=== PATIENT | male | born 1950 | race Caucasian/White ===

== ENCOUNTER 2023-02-26 02:13 | Outpatient (REF) | payer MEDICARE, SELFPAY ==
[2023-02-26 08:03] LABS: INR 1.05; Prothrombin Time 11.1 sec (9.0-11.6)
== END 2023-02-26 02:14 | disposition home or self-care (01) ==
LOC: LAB 02:13
PROVIDERS: PCP Family Medicine; Visit Provider Family Medicine
DX: I48.0 Paroxysmal atrial fibrillation (principal)
CPT/HCPCS: 36415; 85610

== ENCOUNTER 2023-03-03 07:31 | Outpatient (REF) | payer MEDICARE, SELFPAY ==
[2023-03-01 08:13] LABS: INR 1.67; Prothrombin Time 17.2 sec (9.0-11.6)
--- OUTSIDE RECORDS SUMMARY | 2023-03-03 07:36 | XMS_ITS | CCD ---
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 Name Role Phone No, Physician Primary Care Provider UnavailShahriar Frederick II Unavailable [phone] Shahriar Dhillon II Unavailable Karina Melgar Unavailable Lynn Gurrola Unavailable MD Karina Melgar Primary Care Provider [phone] DO Yo Blood Emergency Provider LISSETH Link Attending Provider [phone] Sejal Link Unavailable Karina Melgar Unavailable Unavailable Unavailable Unavailable Unavailable Karina Melgar Primary Care Unavailable Sejal Link Attending Unavailable Sejal Link Admitting Unavailable Shahriar Dhillon II Attending UnavailShahriar Frederick II Admitting UnavailKarina Butler Primary Care Unavailable Shahriar Dhillon II Admitting UnavailShahriar Frederick II Attending UnavailKarina Butler Primary Care Unavailable Shahriar Dhillon II Admitting UnavailShahriar Frederick II Attending UnavailKarina Butler Primary Care Unavailable Christopher Porter Referring Unavail able Christopher Porter Attending Unavail able Christopher Porter Admitting Unavail able Karina Melgar Primary Care Unavailable Yo Blood Admitting Unavailable Yo Blood Attending Unavailable Karina Melgar Primary Care Unavailable Kate Nielson Unavailable Shahriar Dhillon II Admitting UnavailShahriar Frederick II Attending UnavailKarina Butler Primary Care Unavailable Joselin Burgess Consulting Unavailable Love Gaviria Consulting Unavailable Christopher Porter Consulting Unavail able Wisam Torre Consulting Unavailable Phong Castro Consulting Unavailab Riya Garcia Consulting Unavailable Ester Salgado Consulting Unavailable Kam Ventura Consulting Unavailab Mulu Renae Consulting Unavailable Zenia Sandoval Consulting Unavailable Mariposa Clifton Consulting Unavailable Madison Steel Consulting Unavailable Cee Carrillo Consulting Unavailable Ruba Mishra Consulting Unavailable Nunu Ruiz Consulting Unavailable Poonam Borjas Consulting Unavailable Williams Winston Consulting Unavailable MiriJoe dsouza Consulting Unavailable Kym Estevez Consulting Unavailable Vic Block Consulting Unavailable Tru Morfin Consulting Unavailable Surya Thapa Consulting UnavailDillon Silver Consulting Unavailable Aury Khan Consulting Unavailable Eileen Barakat Consulting Unavailable Hilton Canada Consulting Unavailable Richmond Saucedo Consulting Unavailable Neil Walton Consulting Unavailable Mariana Andrade Consulting Unavailable Karina Orozco Consulting Unavailable Keyon Edwards Consulting Unavailable Sherita Mercer Consulting Unavailable Jose L Coles Consulting Unavailable Jory Campos Consulting Unavailable Ankush Rodrigez Consulting Unavailab Marcus Edmond Consulting Unavailable Marcos Bruno Consulting Unavailable EmilyHaylee martinez Consulting Unavailable Rufina, Kayode Consulting Unavailable Angel Senior Consulting Mariella vailable Trisha Keyes Consulting Unavailable Pawan Kaba Consulting Unavailab Kennedy Dhillon Consulting Unavailable Ryan Dolan Consulting Unavailable Obika, Fatoumata Consulting Unavailable Adri Mon Consulting Unavailable Shahriar Dhillon II Admitting UnavailShahriar Frederick II Attending UnavailKarina Butler Primary Care Unavailable Christopher Porter Referring Unavailable Christopher Porter Attending Unavailable Dr. Karina Melgar Primary Care Mariella vailable Christopher Porter Referring Unavailable Dr. Karina Melgar Primary Care Mariella vailable Christopher Porter Attending Unavailable Christopher Porter Referring Unavailable Dr. Karina Melgar Primary Care Mariella vailable Staciuinn, Christopher Attending Unavailable McGuinn, Christopher Referring Unavailable Ramón, Dr. Karina Abernathy Primary Care Mariella vailable Staciuinrick, Christopher Attending Unavailable Staciuinrick, Christopher Referring Unavailable Ramón, Dr. Karina Abernathy Primary Care Mariella vailable McGuinn, Christopher Attending Unavailable McGuinn, Christopher Attending Unavailable Nikolay, Ms. Sejal Leung Referring Unavailable Ramón, Dr. Karina Abernathy Primary Care Mariella vailalissy Melgar, Dr. Karina Abernathy Primary Care Mariella vailable German, Christopher Attending Unavailable Ramón, Dr. Karina Abernathy Primary Care Mariella vailable German, Christopher Attending Unavailable Ramón, Dr. Karina Abernathy Primary Care Mariella vailable German, Christopher Referring Unavailable German, Christopher Attending Unavailable Ramón, Dr. Karina Abernathy Primary Care Mariella vailable KARINA MELGAR Primary Care Physician [phone] Mae Rodrigez Attending Unavailable Justmarcos, Mae Referring Unavailable JustiMae Admitting Unavailable McGuinn, Christopher P Admitting Unavailable McGuinn, Christopher P Attending Unavailable McGvickien, Christopher P Referring Unavailable Sukhwinder, Justice Attending Unavailable SUKHWINDER, JUSTICE Referring Unavailable RADHA SMALL Attending Unavailable REQUEST, IP OCCUPATIONAL THERAPY SERVICE Consult ing Unavailable LUKASZ ALICIAY Admitting Unavailable REQUEST, IP PHYSICAL THERAPY SERVICE Consulting Unavailable CONSULT, IP CARDIOLOGY Consulting Unavailab le PROVIDER, UNKNOWN Admitting Unavailable PROVIDER, UNKNOWN Attending Unavailable PROVIDER, UNKNOWN Admitting Unavailable SUKHWINDER, JUSTICE Referring Unavailable PROVIDER, UNKNOWN Attending Unavailable HILLARY, ISACC Admitting Unavailable PROVIDER, UNKNOWN Attending Unavailable SUKHWINDER, JUSTICE Referring Unavailable HILLARY, ISACC Admitting Unavailable PROVIDER, UNKNOWN Attending Unavailable SUKHWINDER, JUSTICE Referring Unavailable HILLARY, ISACC Admitting Unavailable SUKHWINDER, JUSTICE Referring Unavailable PROVIDER, UNKNOWN Attending Unavailable HILLARY, ISACC Admitting Unavailable PROVIDER, UNKNOWN Admitting Unavailable SUKHWINDER, JUSTICE Referring Unavailable PROVIDER, UNKNOWN Attending Unavailable PROVIDER, UNKNOWN Admitting Unavailable PROVIDER, UNKNOWN Attending Unavailable PROVIDER, UNKNOWN Admitting Unavailable PROVIDER, UNKNOWN Attending Unavailable PROVIDER, UNKNOWN Admitting Unavailable PROVIDER, UNKNOWN Attending Unavailable Unavailable Primary Care Provider Unavailabl e Unavailable Primary Care Provider Unavailabl e Allergies Allergy Classification Reported Allergen(s) Allergy Type Date of Onset Reaction(s) Facility (1 source) No Known Medication Allergies; Translations: [No Known Medication Allergies] Propensity to adverse reactions (disorder) [facility] Medications Current Medications Medication Drug Class(es) Dates Sig (Normalized) Sig (Original) acetaminophen 325 mg / HYDROcodone bitartrate 5 mg oral tablet (1 source) Opioid Agonist Start: 07-28-2020 [place] 325 mg-5 mg oral tablet 1 tab(s), Oral, q6hr for pain, 12 tab(s), Refill(s) 0 Start Date: 07/28/20 Status: Ordered azithromycin 250 mg oral tablet (1 source) Macrolide Antimicrobial take 1 tablet by mouth twice daily azithromycin (ZITHROMAX) 250 MG tablet Take 250 mg by mouth 2 (two) times a day. 0 Active benzonatate 200 mg oral capsule (3 sources) Non-narcotic Antitussive Start: 08-01-2022 benzonatate 200 mg oral capsule Refills(s) 0 Start Date: 08/01/22 Status: Ordered Start: 03-11-2022 take 200 mg by mouth three times daily Benzonatate Active 200 MG PO Three times daily 14 March 11, 2022 12:00am biotin 1 mg oral tablet (15 sources) Start: 03-11-2022 Biotin Active TABLET March 11, 2022 12:00am take 1 capsule by mouth once chandrakant ly Biotin 5000 MCG Oral Capsule TAKE 1 CAPSULE Daily Quantity: 0 Refills: 0 Ordered: 21-Mar-2022 DO Active take 1 capsule by mouth once chandrakant ly Biotin 5000 MCG 1 capsule Orally Once a day Active cefadroxil 500 mg oral capsule (3 sources) Cephalosporin Antibacterial Start: 06-14-2021 take 1 capsule by mouth every twelve hours Cefadroxil 500 MG 1 tablet Orally every 12 hrs for 7 days Med to Bed Upon Discharge DOS: 07/02/2021 May, Active cholecalciferol 0.025 mg oral tablet (13 sources) Vitamin D Start: 06-18-2021 take 1 tablet by mouth once daily Cholecalciferol (Vitamin D3) (Vitamin D3) 25 mcg (1,000 unit) Tablet Active 25 MCG PO Daily June 17, 2021 11:00pm take 1 tablet by mouth once sy y Vitamin D3 125 MCG (5000 UT) Oral Tablet Take 1 tablet daily Quantity: 0 Refills: 0 Ordered: 21-Mar-2022 DO Active take 1 capsule by mo ut every twenty-four hours Vitamin D3 25 MCG (1000 UT) 1 capsule Orally Once a day Active chondroitin sulfates 200 mg / glucosamine hydrochloride 250 mg oral tablet (2 sources) Start: 07-28-2017 take 1 tablet by mouth twice daily Glucosamine-Chondroitin (Osteo Bi-Flex) 250-200 mg Tablet Active 1 TAB PO Twice daily July 27, 2017 11:00pm ciprofloxacin 500 mg oral tablet (1 source) Quinolone Antimicrobial Start: 01-29-2021 take 1 tablet by mouth every twelve hours Cipro 500 MG 1 tablet Orally every 12 hrs for 30 days Jan, Active codeine phosphate 2 mg/ml / promethazine hydrochloride 1.25 mg/ml oral solution (1 source) Opioid Agonist, Phenothiazine take 5 mL by mouth every six hours promethazine-codeine (PHENERGAN with CODEINE) 6.25-10 mg/5 mL syrup Take 5 mL by mouth every 6 (six) hours. 0 Active CoQ-10 100 MG (1 source) CoQ-10 100 MG as directed Orally Active cyclobenzaprine hydrochloride 10 mg oral tablet (1 source) Muscle Relaxant Start: 02-25-2023 docusate sodium 50 mg / sennosides, nursing home 8.6 mg oral tablet (3 sources) Start: 06-14-2021 take 2 tablets by mouth every twenty-fou r hours Senokot S 8.6-50 MG 2 tablets Orally Once a day for 30 day(s) Med to Bed Upon Discharge DOS: 07/02/2021 May, Active Elderberry Sambiscus (2 sources) Start: 06-18-2021 take 1250 mg by mouth twice daily Elderberry Sambiscus Active 1250 MG PO Twice daily June 17, 2021 11:00pm Fish Oils (17 sources) take 1 capsule by mouth once daily Fish Oil 300 MG 1 capsule Orally Once a day Not-Taking take 1 capsule by mouth once chandrakant ly Fish Oil 300 MG 1 capsule Orally Once a day Active Fish,Flaxseed Oil-E.Prim-Bcurr (Fish, Flax Andborage Oil(Prim)) 400-400-200 mg Capsule (2 sources) Start: 06-18-2021 take 1 capsule by mouth twice daily Fish,Flaxseed Oil-E.Prim-Bcurr (Fish, Flax Andborage Oil(Prim)) 400-400-200 mg Capsule Active 1 CAP PO Twice daily June 17, 2021 11:00pm Glucosamine Chondroit MSM DS - (11 sources) Glucosamine Chondroit MSM DS - as directed Orally Active hydroCHLOROthiazide / Lisinopril (20 sources) Thiazide Diuretic, Angiotensin Converting Enzyme Inhibitor Start: 01-31-2019 take 1 tablet by mouth once daily hydrochlorothiazide- lisinopril 12.5 mg-10 mg Oral 1 tab(s), Oral, Daily, Refill(s) 0 Start Date: 01/31/19 Status: Ordered Start: 07-28-2017 take 1 tablet by cuong th once daily Lisinopril-hydroCHLOROthiazide 10-12.5 M G Oral Tablet take 1 tablet by mouth once daily Quantity: 90 Refills: 3 Ordered: 27-Feb-2022 DO Start : 27-Feb-2022 Active take 10-12.5 mg by mouth once lisinopril-hydrochlorothiazide (ZESTORET IC) 10-12.5 MG per tablet Take 1 Tablet by mouth daily. 0 Suspended Lisinopril-hydro CHLOROthiazide 10/12.5 TAKE 1 TABLET BY MOUTH ONCE A DAY Orally Once a day Active Lisinopril-hydro CHLOROthiazide 10/12.5 TAKE 1 TABLET BY MOUTH ONCE A DAY Orally Once a day for 30 days Active lidocaine 0.04 mg/mg medicated patch (3 sources) Antiarrhythmic, Amide Local Anesthetic Start: 02-26-2023 Start: 02-19-2023 apply 1 dose transde rmal route every twenty-four hours 1 Patch, Transdermal, EVERY 24 HOURS, First dose on Fri02/19/23 at 0900, Until Discontinued Start: 02-15-2023 End: 02-15-2023 200 mg (20 mL), Other, ONCE, 1 dose, On 02/15/23 at 2303 MDI spacer adult (1 source) Start: 01-31-2019 MDI spacer aleida lt 1 EA, Inhalation, As Directed, 1 EA, Refill(s) 0 Start Date: 01/31/19 Status: Ordered Multi For Him 50+ - (17 sources) Start: 07-31-2017 Multi For Him 50+ - Orally Jul, Active Multivitamin-Minerals -Lutein (Multivitamin 50 Plus) Tablet (2 sources) Start: 07-28-2017 Multivitamin-M iner als-Lutein (Multivitamin 50 Plus) Tablet Active 1 TAB PO Daily July 27, 2017 11:00pm Osteo Bi-Flex Regular Strength 250-200 MG (17 sources) take 1 tablet by mouth once daily Osteo Bi-Flex Regular Strength 250-200 MG 1 tablet with a meal Orally Once a day Active oxyCODONE hydrochloride 5 mg oral tablet (8 sources) Opioid Agonist Start: 02-19-2023 End: 03-02-2023 Start: 02-16-2023 5 mg, Oral, EV XIOMARA 4 HOURS PRN, Starting on 02/16/23 at 0108, Until Discontinued, Severe Pain (pain score 7,8,9,10) Start: 06-14-2021 take 5 mg by mouth e very four hours Oxycodone Active 5 MG PO Every 4 hours July 03, 2021 predniSONE 20 mg oral tablet (2 sources) Start: 03-11-2022 take 40 mg by mouth once daily Prednisone Active 40 MG PO Daily 10 March 11, 2022 12:00am Prostate Control - (17 sources) Prostate Control - Orally Active pyridoxine hydrochloride 25 mg oral tablet (2 sources) Start: 07-28-2017 Pyridoxine (Vitamin B6) (Vitamin B-6) 25 mg Tablet Active 100 MG PO Daily July 27, 2017 11:00pm sulfamethoxazole 800 mg / trimethoprim 160 mg oral tablet (1 source) Dihydrofolate Reductase Inhibitor Antibacterial, Sulfonamide Antimicrobial Start: 02-13-2021 take 1 tablet by mouth every twelve hours Sulfamethoxazole -Trimethoprim 800-160 MG 1 tablet Orally Twice a day for 21 days Jan, Active traMADol hydrochloride 50 mg oral tablet (8 sources) Opioid Agonist Start: 07-18-2021 take 1 tablet by mouth every six hours as needed for pain traMADol HCl 50 MG 1 tablet as needed for pain Orally every 6 hrs for 10 days Med to Bed Upon Discharge DOS: 07/02/2021 June, Active Start: 07-03-2021 End: 03-11-2022 take 50 mg by mouth every four hours Tramadol Discontinued 50 MG PO Q4H July 02, 2021 11:00pm March 11, 2022 5:18pm Start: 06-14-2021 take 1 tablet by cuong th every six hours as needed for pain traMADol HCl 50 MG 1 tablet as needed for pain Orally every 6 hrs for 10 days Med to Bed Upon Discharge DOS: 07/02/2021 May, Active Turmeric Curcumin 500 MG (5 sources) Turmeric Curcumi n 500 MG as directed Orally Active ubidecarenone 100 mg oral capsule (10 sources) CoQ-10 100 MG as directed Orally Active ubiquinol 100 mg oral capsule (2 sources) Start: 2 take 100 mg by mouth once daily Coq10 (Ubiquinol) Active 100 MG PO Daily June 17, 2021 11:00pm Ventolin HFA 90 mcg/inh inhalation aerosol with adapter (1 source) Start: 9 take 2 puff(s) by inhalation every six hours as needed for wheezing Ventolin HFA 90 mcg/inh inhalation aerosol with adapter = 2 puff(s), Inhalation, q6hr, PRN Wheezing/SOB Start Date: 01/31/19 Status: Ordered vitamin b12 1 mg oral tablet (20 sources) Vitamin B12 Start: 8 take 1 tablet by mouth once daily Cyanocobalamin (Vitamin B-12) (Vitamin B-12) 1,000 mcg Tablet Active 1000 MCG PO Daily July 27, 2017 11:00pm take 1 tablet by mouth once sy y Vitamin B-12 100 MCG Oral Tablet TAKE 1 TABLET DAILY DIRECTED. Quantity: 0 Refills: 0 Ordered: 21-Mar-2022 DO Active Vitamin B-12 Ora lly Once a day Active Vitamin D3 25 MCG (1000 UT) (10 sources) take 1 capsule by mouth once daily Vitamin D3 25 MCG (1000 UT) 1 capsule Orally Once a day Active warfarin sodium 2 mg oral tablet (20 sources) Vitamin K Antagonist Start: 03-02-2023 take 2 mg by mouth once 2 mg, Oral, EVERY FRIDAY, First dose on Fri03/02/23 at 0900, Until Discontinued Start: 02-25-2023 take 4 mg by mouth once daily 4 mg, Oral, DAILY EXCEPT FRIDAY, First dose on Fri02/25/23 at 1330, Until Discontinued Start: 03-21-2022 warfarin 2 mg Tab Refills(s) 0 Start Date: 08/01/22 Status: Ordered Warfarin Sodium 2 MG Oral Tablet Take [place] [facility] [place] Quantity: 0 Refills: 0 Ordered: 30-Apr-2022 DO Active Warfarin 2mg Act ally Zinc (12 sources) Start: 03-11-2022 Zinc Active MG PO March 11, 2022 12:00am Zinc 50 MG CAPS TAKE 1 CAPSULE Daily Quantity: 0 Refills: 0 Ordered: 21-Mar-2022 DO Active Completed/Discontinued Medications Medication Drug Class(es) Dates Sig (Normalized) Sig (Original) acetaminophen 500 mg oral tablet (11 sources) Start: 02-16-2023 take 1000 mg by mouth every eight hours 1,000 mg, Oral, EVERY 8 HOURS, First dose on Fri02/16/23 at 0144, Until Discontinued Start: 06-18-2021 End: 07-03-2021 take 2 tablets by mouth every six hours Acetaminophen (Acetaminophen Extra Strength) 500 mg Tablet Discontinued 1000 MG PO Q6H June 17, 2021 11:00pm July 03, 2021 10:52am Start: 06-18-2021 End: 03-11-2022 take 650 mg by mouth every twelve hours Acetaminophen Discontinued 650 MG PO Q12H June 17, 2021 11:00pm March 11, 2022 5:17pm Start: 06-14-2021 take 2 tablets by mo [facility] every eight hours for pain Acetaminophen 500 MG 2 tablets for pain Orally every 8 hrs for 30 days Med to Bed Upon Discharge DOS: 07/02/2021 May, Active acetaminophen 325 mg / oxyCODONE hydrochloride 5 mg oral tablet (2 sources) Opioid Agonist Start: 08-16-2017 End: 08-09-2019 take 1 tablet by mouth every three hours Oxycodone-Acetaminophen Discontinued 1 TAB PO Q3H 0 August 15, 2017 11:00pm August 09, 2019 10:47pm albuterol 0.83 mg/ml inhalation solution (6 sources) beta2-Adrene rgic Agonist Start: 02-17-2023 2.5 mg, Nebulization, EVERY 4 HOURS RT, First dose on 02/17/23 at 1200, Until Discontinued Start: 02-16-2023 take 2 puff(s) by in halation every four hours as needed 2 Puff, Inhalation, EVERY 4 HOURS PRN, Starting on 02/16/23 at 1014, Until Discontinued, Shortness of Breath, Wheezing Start: 03-11-2022 Albuterol Sulf ate Active 2 INH INHALATION Q6H 8 March 11, 2022 12:00am administer with spacer take 2 puff(s) by mo [facility] every four hours as needed ALBUTEROL INHALATION Inhale 2 Puffs by mouth every 4 hours as needed for Other (sob). 0 Suspended albuterol 0.833 mg/ml / ipratropium bromide 0.167 mg/ml inhalation solution (1 source) Anticholinergic, beta2-Adrenergic Agonist Start: 02-17-2023 3 mL, Nebulization, EVERY 4 HOURS RT, First dose on Fri02/17/23 at 1200, Until Discontinued ascorbic acid 75 mg / ferrous fumarate 333 mg / folic acid 0.5 mg / liver stomach concentrate 240 mg / vitamin b12 0.015 mg oral capsule (2 sources) Vitamin B12, Vitamin C Start: 07-03-2021 End: 03-11-2022 take 1 capsule by mouth twice daily Iron [id number]-S-Drivm Acid (Ferocon) 110-0.5 mg Capsule Discontinued 1 CAP PO Twice daily 60 30 July 02, 2021 11:00pm March 11, 2022 5:18pm aspirin 81 mg chewable tablet (11 sources) Platelet Aggregation Inhibitor, Nonsteroidal Anti-inflammatory Drug Start: 02-25-2023 End: 02-25-2023 Start: 07-03-2021 End: 03-11-2022 take 81 mg by mouth twice daily Aspirin Discontinued 8 1 MG PO Twice daily July 02, 2021 11:00pm March 11, 2022 5:18pm Start: 06-14-2021 take 1 tablet by [facility] twice daily Aspirin 81 MG 1 tablet Orally BID for 35 days Med to Bed Upon Discharge DOS: 07/02/2021 May, Active Start: 08-16-2017 End: 08-09-2019 take 81 mg by mouth twice daily Aspirin Discontinued 8 1 MG PO Twice daily 0 August 15, 2017 11:00pm August 09, 2019 10:46pm bisacodyl 10 mg rectal suppository (1 source) Stimulant Laxative Start: 02-25-2023 take 10 mg rectal route once daily as needed 10 mg, Rectal, DAILY PRN, Starting on Fri02/25/23 at 1329, Until Discontinued, Constipation Borage extract (10 sources) Borage CAPS TAKE 1 CAPSULE Daily Quantity: 0 Refills: 0 Ordered: 21-Mar-2022 DO Active calcium chloride 0.0014 meq/ml / potassium chloride 0.004 meq/ml / sodium chloride 0.103 meq/ml / sodium lactate 0.028 meq/ml injectable solution (5 sources) Start: 02-17-2023 End: 02-17-2023 take 1 dose intravenously every hour 1,000 mL, at 999 mL/hr, Intravenous, FLUID BOLUS, 1 dose, On Fri02/17/23 at 0900 Start: 02-16-2023 End: 02-16-2023 take 1 dose intravenously every hour 1,000 mL, at 9,999 mL/hr, Intravenous, FLUID BOLUS, 1 dose, On 02/16/23 at 2200 Start: 02-16-2023 End: 02-16-2023 take 1 dose intravenously every hour 500 mL, at 999 mL/hr, Intravenous, FLUID BOLUS, 1 dose, On Fri02/16/23 at 1600 Start: 02-16-2023 End: 02-16-2023 take 1 dose intravenously every hour 500 mL, at 999 mL/hr, Intravenous, FLUID BOLUS, 1 dose, On Fri02/16/23 at 1500 Start: 02-16-2023 End: 02-19-2023 Intravenous, at 100 mL/hr, CONTINUOUS, Starting on Fri02/16/23 at 0144, Until Fri02/19/23 at 0809 100 ml calcium gluconate 20 mg/ml injection (1 source) Start: 02-15-2023 End: 02-16-2023 2,000 mg, Intravenous, ONCE, 1 dose, On 02/15/23 at 2256, at 100 mL/hr ceFAZolin 2000 mg injection (1 source) Cephalosporin Antibacterial Start: 02-19-2023 End: 02-20-2023 2,000 mg, Intravenous, EVERY 8 HOURS ANTIBIOTIC, 3 doses, First dose on Fri02/19/23 at 1030, Last dose on Fri02/20/23 at 0300 celecoxib 200 mg oral capsule (8 sources) Nonsteroidal Anti-inflammatory Drug Start: 06-14-2021 End: 03-11-2022 take 200 mg by mouth twice daily Celecoxib Discontinued 200 MG PO Twice daily July 02, 2021 11:00pm March 11, 2022 5:18pm cetirizine hydrochloride 10 mg oral tablet (2 sources) Histamine-1 Receptor Antagonist Start: 08-14-2017 End: 06-18-2021 take 1 tablet by mouth at bedtime Cetirizine (Zyrtec) 10 mg Tablet Discontinued 10 MG PO Bedtime August 13, 2017 11:00pm June 18, 2021 9:51am diclofenac sodium 75 mg delayed release oral tablet (12 sources) Nonsteroidal Anti-inflammatory Drug Start: 01-22-2018 take 1 tablet by mouth every twelve hours Diclofenac Sodium 75 MG 1 tablet with food or milk Orally Twice a day for 1 month Dec, Not-Taking docusate sodium 100 mg oral capsule (1 source) Start: 02-23-2023 take 100 mg by mouth twice daily 100 mg, Oral, 2 TIMES DAILY, First dose on 02/23/23 at 2100, Until Discontinued Drug or medicament (substance) (2 sources) Start: 02-17-2023 End: 02-17-2023 Other, ONCE, 1 dose, On 02/17/23 at 1300 Elderberry preparation (20 sources) Elderberry CAPS TAKE 1 CAPSULE Daily Quantity: 0 Refills: 0 Ordered: 21-Mar-2022 DO Active Elderberry Activ e 0.6 ml enoxaparin sodium 100 mg/ml prefilled syringe (2 sources) Low Molecular Weight Heparin Start: 02-22-2023 inject 50 mg by subcutaneous injection twice daily 50 mg, Subcutaneous, 2 TIMES DAILY, First dose (after last modification) on 02/22/23 at 2100, Until Discontinued Start: 02-16-2023 End: 02-22-2023 60 mg (rounded from 59.75 mg = 0.5 mg/kg 119.5 kg), Subcutaneous, 2 TIMES DAILY, First dose on 02/16/23 at 0930, Until Discontinued 4 ml furosemide 10 mg/ml injection (3 sources) Loop Diuretic Start: 02-19-2023 End: 02-20-2023 take 1 dose intravenously once 40 mg, Intravenous Push, ONCE, 1 dose, On Theresa 02/20/23 at 0900 Ginkgo Biloba (12 sources) Start: 07-28-2017 End: 06-18-2021 take 1 tablet by mouth twice daily Ginkgo Biloba Discontinued 1 TAB PO Twice daily July 27, 2017 11:00pm June 18, 2021 9:51am take 1 capsule by mouth once chandrakant ly Ginkgo Biloba 120 MG Oral Capsule TAKE 1 CAPSULE Daily Quantity: 0 Refills: 0 Ordered: 21-Mar-2022 DO Active hyaluronate (20 sources) Start: 10-22-2016 Euflexxa 29 Au g, 2016 2 mL Start: 10-15-2016 Euflexxa 22 Au g, 2016 2 mL Start: 10-08-2016 Euflexxa 15 Au g, 2016 2 mL hydroCHLOROthiazide 25 mg oral tablet (1 source) Thiazide Diuretic Start: 02-16-2023 End: 02-16-2023 take 12.5 mg by mouth once daily 12.5 mg, Oral, DAILY, First dose on 02/16/23 at 1100, Until Discontinued 1 ml HYDROmorphone hydrochloride 1 mg/ml cartridge (3 sources) Opioid Agonist Start: 02-16-2023 End: 02-16-2023 take 0.5 mg intravenously once 0.5 mg, Intravenous Push, ONCE, 1 dose, On 02/16/23 at 0119 Start: 02-16-2023 End: 02-17-2023 take 0.2 mg intravenously every four hours as needed for pain 0.2 mg, Intravenous Push, EVERY 4 HOURS PRN, Starting on 02/16/23 at 0109, Until 02/17/23 at 0806, Breakthrough Pain Start: 02-15-2023 End: 02-15-2023 ONCE PRN, Starting on 02/15/23 at 2127, Until Discontinued ibuprofen 200 mg oral tablet (2 sources) Nonsteroidal Anti-inflammatory Drug Start: 07-28-2017 End: 08-16-2017 take 800 mg by mouth twice daily Ibuprofen Discontinued 800 MG PO Twice daily July 27, 2017 11:00pm August 16, 2017 11:08am ipratropium bromide 0.2 mg/ml inhalation solution (1 source) Anticholinergic Start: 02-17-2023 0.5 mg, Nebulization, EVERY 4 HOURS RT, First dose on 02/17/23 at 1200, Until Discontinued lisinopril 10 mg oral tablet (1 source) Angiotensin Converting Enzyme Inhibitor Start: 02-16-2023 End: 02-16-2023 take 10 mg by mouth once daily 10 mg, Oral, DAILY, First dose on 02/16/23 at 1100, Until Discontinued loratadine 10 mg oral tablet (12 sources) Start: 07-31-2017 take 1 tablet by mouth every twenty-four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 #### 8 2948 #### NURSING GLUCOSE PROGRAM [address] [place], [address] Urea nitrogen [Mass/Vol] 23 mg/dL Normal 7-25 [facility] Comment on above: Result Comment: Note updated reference ranges. Performed By: #### 8 2948 #### NURSING GLUCOSE PROGRAM [address] [place], [address] Basic metabolic 2000 panelon 02-22-2023 Anion gap [Moles/Vol] 7 mmol/L Low 10 - 20 [facility] Calcium [Mass/Vol] 7.7 mg/dL Low 8.6 - 10. 3 mg/dL [facility] Chloride [Moles/Vol] 101 mmol/L 98 - 107 mmol/L [facility] CO2 [Moles/Vol] 33 mmol/L High 21 - 31 mmol/L [facility] Creatinine [Mass/Vol] 0.60 mg/dL Low 0.70 - 1.30 mg/dL [facility] GFR/1.73 sq M.predicted CKD-EPI (S/P/Bld) [Vol rate/Area] 101 - PINF [facility] Glucose [Mass/Vol] 105 mg/dL 74 - 109 mg/dL [facility] Interpretation and review of laboratory results Abnormal [facility] Potassium [Moles/Vol] 3.6 mmol/L 3.5 - 5.0 mmol/L [facility] Sodium [Moles/Vol] 137 mmol/L 136 - 145 mmol/L [facility] Urea nitrogen [Mass/Vol] 23 mg/dL 7 - 25 mg/dL [facility] CBC panel Auto (Bld)on 02-22 Erythrocyte distribution width (RBC) [Ratio] 15.4 % High 11.5 - 14.5 % [facility] Hematocrit (Bld) [Volume fraction] 23.9 % Low 41.0 - 53.0 % [facility] Hemoglobin (Bld) [Mass/Vol] 8.0 g/dL Low 13.9 - 16.3 g/dL [facility] Interpretation and review of laboratory results Abnormal [facility] MCH (RBC) [Entitic mass] 30.7 pg 26.0 - 34.0 pg [facility] MCHC (RBC) [Mass/Vol] 33.3 g/dL 32.0 - 35.9 g/dL [facility] MCV (RBC) [Entitic vol] 92 fL 80 - 100 fL [facility] Platelet mean volume (Bld) [Entitic vol] 8.7 fL 7.5 - 11.2 fL [facility] Platelets (Bld) [#/Vol] 227 10*3/uL 150 - 400 K/uL [facility] RBC (Bld) [#/Vol] 2.60 10*6/uL Low [facility] WBC (Bld) [#/Vol] 7.6 10*3/uL 4.5 - 11.5 K/uL M [facility] COMPLETE BLOOD COUNTon 02-22 Erythrocyte distribution width (RBC) [Ratio] 15.4 % High 11.5-14.5 The [facility] Comment on above: Performed By: #### T S #### S PATHOLOGY LABORATORY [address] [place] [address], Hematocrit (Bld) [Volume fraction] 23.9 % Low 41.0-53.0 The [facility] Comment on above: Performed By: #### T S #### S PATHOLOGY LABORATORY [address] [place] [address], Hemoglobin (Bld) [Mass/Vol] 8.0 g/dL Low 13.9-16.3 The [facility] Comment on above: Performed By: #### T S #### S PATHOLOGY LABORATORY [address] [place] [address], MCH (RBC) [Entitic mass] 30.7 pg Normal 26.0-34.0 [facility] Comment on above: Performed By: #### T S #### S PATHOLOGY LABORATORY [address] [place] [address], MCHC (RBC) [Mass/Vol] 33.3 g/dL Normal 32.0-35.9 [facility] Comment on above: Performed By: #### T S #### S PATHOLOGY LABORATORY [address] [place], [place], MCV (RBC) [Entitic vol] 92 fL Normal 80-100 [facility] Comment on above: Performed By: #### T S #### S PATHOLOGY LABORATORY [address] [place], [place], Platelet mean volume (Bld) [Entitic vol] 8.7 fL Normal 7.5-11.2 [facility] Comment on above: Performed By: #### T S #### S PATHOLOGY LABORATORY [address] [place], [place], Platelets (Bld) [#/Vol] 227 10*3/uL Normal 150-400 [email or web address] Comment on above: Performed By: #### T S #### S PATHOLOGY LABORATORY [address] [place], [place], RBC (Bld) [#/Vol] 2.60 10*6/uL Low 4.50-5.90 [facility] Comment on above: Performed By: #### T S #### S PATHOLOGY LABORATORY [address] [place], [place], WBC (Bld) [#/Vol] 7.6 10*3/uL Normal 4.5-11.5 [email or web address] Comment on above: Performed By: #### T S #### S PATHOLOGY LABORATORY [address] [place], [place], Care Plan Noteon 02-22-2023 Tile Class[employer] Authentication Interface Message Text Problem: Routine Care: Goal: Patient care will be managed and maintained throughout hospital stay per unit specific routine care procedure Outcome: Progressing Pt rounded on per hourly protocol. Problem: Impaired Skin Integrity: Goal: Skin integrity will improve and/or be maintained Outcome: Progressing Problem: Impaired Mobility: Goal: Ability to tolerate increased activity will improve and be maintained Outcome: Progressing Problem: Activity Intolerance: Goal: Demonstrate progressive return to baseline activity level Outcome: Progressing Problem: VTE Prophylaxis: Goal: Will be free of DVT Outcome: Progressing Problem: Fluid and Electrolyte Imbalance: Goal: Adequate fluid and electrolyte balance will be achieved and maintained Outcome: Progressing Problem: Alteration in Tissue Perfusion: Peripheral: Goal: Promote adequate perfusion and limit complications for a person experiencing or is at risk for inadequate tissue perfusion in peripheral circulation Outcome: Progressing Problem: Alteration in Respiratory Status: Goal: Achieve Optimal Respiratory Status with Minimal Ventilatory/Oxygen Support Outcome: Progressing Problem: Acute Pain: Goal: Ability to identify pain intensity on a pain scale and rate it consistently will be achieved and maintained Outcome: Progressing Meds administered as ordered. Problem: Safety: Goal: Patient will remain free of falls during hospital stay Outcome: Progressing Goal: Free from injury during hospitalization Outcome: Progressing Problem: Discharge Planning: Goal: Discharge needs of the adult patient will be met Outcome: Progressing Problem: Routine Care: Goal: Patient care will be managed and maintained throughout hospital stay per unit specific routine care procedure Outcome: Progressing Problem: Acute Pain: Goal: Ability to identify pain intensity on a pain scale and rate it consistently will be achieved and maintained Outcome: Progressing Problem: Safety: Goal: Patient will remain free of falls during hospital stay Outcome: Progressing Problem: Discharge Planning: Goal: Discharge needs of the adult patient will be met Outcome: Progressing Problem: Restraint: Goal: Remain safe while in restraints and once discontinued Outcome: Progressing Normal [email or web address] MAGNESIUMon 02-22-2023 Magnesium [Mass/Vol] 2.0 mg/dL Normal 1.6-2.8 [facility] Comment on above: Performed By: #### 8 2948 #### NURSING GLUCOSE PROGRAM [address] [place] [address], [address] Magnesium [Mass/Vol] 2.0 mg/dL 1.6 - 2.8 mg/dL [facility] No Panel Informationon 02-22 Interpretation and review of laboratory results Normal [facility] PHOSPHORUSon 02-22-2023 Phosphate [Mass/Vol] 2.8 mg/dL Normal 2.3-4.2 [facility] Comment on above: Performed By: #### 8 7511 #### NURSING GLUCOSE PROGRAM [address] [place], [address] Phosphate [Mass/Vol] 2.8 mg/dL 2.3 - 4.2 mg/dL [facility] BASIC METABOLIC PANELon 01-25 Anion gap [Moles/Vol] 9 mmol/L Low 10-20 [facility] Comment on above: Performed By: #### 8 2948 #### NURSING GLUCOSE PROGRAM [address] [place], [address] Calcium [Mass/Vol] 7.5 mg/dL Low 8.6-10.3 [facility] Comment on above: Result Comment: Note updated reference ranges. Performed By: #### 8 2948 #### NURSING GLUCOSE PROGRAM [address] [place], [address] Chloride [Moles/Vol] 100 mmol/L Normal 98-107 [facility] Comment on above: Result Comment: Note updated reference ranges. Performed By: #### 8 2948 #### NURSING GLUCOSE PROGRAM [address] [place], [address] CO2 [Moles/Vol] 33 mmol/L High 21-31 [facility] Comment on above: Result Comment: Note updated reference ranges. Performed By: #### 8 2948 #### NURSING GLUCOSE PROGRAM [address] [place], [address] Creatinine [Mass/Vol] 0.65 mg/dL Low 0.70-1.30 [facility] Comment on above: Result Comment: Note updated reference ranges. Performed By: #### 8 2948 #### NURSING GLUCOSE PROGRAM [address] [place], [address] ESTIMATED GFR (CKD-EPI) 99 mL/min/1.73sqm Normal >=60 [facility] Comment on above: Result Comment: 2020 CKD EPI Equation using Creatinine without Race Comment: Estimated glomerular filtration rate (eGFR) is calculated without a race coefficient. Values should be interpreted in the context of the patient's full clinical presentation. Reference: 1. Clayton C, Lan M, Alissa RAMEY, et al.. A Unifying Approach for GFR Estimation: Recommendations of the NKF-ASN Task Force on Reassessing the Inclusion of Race in Diagnosing Kidney Disease. [place] Journal of Kidney Diseases 2021;79(2):268-88.e1. 2. N Engl J Med 1 Vol. 385 Issue 19 Pages 7721-9651 Performed By: #### 8 2948 #### NURSING GLUCOSE PROGRAM [address] [place], [address] Glucose [Mass/Vol] 104 mg/dL Normal 74-109 [facility] Comment on above: Performed By: #### 8 2948 #### NURSING GLUCOSE PROGRAM [address] [place], [address] Potassium [Moles/Vol] 3.5 mmol/L Normal 3.5-5.0 [facility] Comment on above: Result Comment: Note updated reference ranges. Note updated reference ranges. Performed By: #### 8 2948 #### NURSING GLUCOSE PROGRAM [address] [place], [address] Sodium [Moles/Vol] 138 mmol/L Normal 136-145 The [facility] Comment on above: Result Comment: Note updated reference ranges. Performed By: #### 8 2948 #### NURSING GLUCOSE PROGRAM [address] [place], [address] Urea nitrogen [Mass/Vol] 24 mg/dL Normal 7-25 The [facility] Comment on above: Result Comment: Note updated reference ranges. Performed By: #### 8 2948 #### NURSING GLUCOSE PROGRAM [address] [place], [address] BLOOD CULTUREon 02-21-2023 Bacteria identified Cx Nom (Bld) No Growth [facility] Interpretation and review of laboratory results Normal [facility] Basic metabolic 2000 panelon 02-21-2023 Anion gap [Moles/Vol] 9 mmol/L Low 10 - 20 [facility] Calcium [Mass/Vol] 7.5 mg/dL Low 8.6 - 10. 3 mg/dL [facility] Chloride [Moles/Vol] 100 mmol/L 98 - 107 mmol/L [facility] CO2 [Moles/Vol] 33 mmol/L High 21 - 31 mmol/L [facility] Creatinine [Mass/Vol] 0.65 mg/dL Low 0.70 - 1.30 mg/dL [facility] GFR/1.73 sq M.predicted CKD-EPI (S/P/Bld) [Vol rate/Area] 99 - PINF [facility] Glucose [Mass/Vol] 104 mg/dL 74 - 109 mg/dL [facility] Interpretation and review of laboratory results Abnormal [facility] Potassium [Moles/Vol] 3.5 mmol/L 3.5 - 5.0 mmol/L [facility] Sodium [Moles/Vol] 138 mmol/L 136 - 145 mmol/L [facility] Urea nitrogen [Mass/Vol] 24 mg/dL 7 - 25 mg/dL [facility] CBC panel Auto (Bld)on 02-21 Erythrocyte distribution width (RBC) [Ratio] 14.5 % 11.5 - 14.5 % [facility] Hematocrit (Bld) [Volume fraction] 21.8 % Low 41.0 - 53.0 % [facility] Hemoglobin (Bld) [Mass/Vol] 7.6 g/dL Low 13.9 - 16.3 g/dL [facility] Interpretation and review of laboratory results Abnormal [facility] MCH (RBC) [Entitic mass] 31.5 pg 26.0 - 34.0 pg [facility] MCHC (RBC) [Mass/Vol] 34.6 g/dL 32.0 - 35.9 g/dL [facility] MCV (RBC) [Entitic vol] 91 fL 80 - 100 fL [facility] Platelet mean volume (Bld) [Entitic vol] 8.3 fL 7.5 - 11.2 fL [facility] Platelets (Bld) [#/Vol] 199 10*3/uL 150 - 400 K/uL [facility] RBC (Bld) [#/Vol] 2.40 10*6/uL Low [facility] WBC (Bld) [#/Vol] 9.6 10*3/uL 4.5 - 11.5 K/uL [facility] COMPLETE BLOOD COUNTon 02-21 Erythrocyte distribution width (RBC) [Ratio] 14.5 % Normal 11.5-14.5 [facility] Comment on above: Performed By: #### T S #### S PATHOLOGY LABORATORY [address] [place] [address], Hematocrit (Bld) [Volume fraction] 21.8 % Low 41.0-53.0 [facility] Comment on above: Performed By: #### T S #### [facility] [address] [place] [address], Hemoglobin (Bld) [Mass/Vol] 7.6 g/dL Low 13.9-16.3 [facility] Comment on above: Performed By: #### T S #### [facility] [address] [place] [address], MCH (RBC) [Entitic mass] 31.5 pg Normal 26.0-34.0 [facility] Comment on above: Performed By: #### T S #### [facility] [address] [place], [place], MCHC (RBC) [Mass/Vol] 34.6 g/dL Normal 32.0-35.9 [facility] Comment on above: Performed By: #### T S #### S PATHOLOGY LABORATORY [address] [place], [place], MCV (RBC) [Entitic vol] 91 fL Normal 80-100 [facility] Comment on above: Performed By: #### T S #### S PATHOLOGY LABORATORY [address] [place], [place], Platelet mean volume (Bld) [Entitic vol] 8.3 fL Normal 7.5-11.2 [facility] Comment on above: Performed By: #### T S #### S PATHOLOGY LABORATORY [address] [place], [place], Platelets (Bld) [#/Vol] 199 10*3/uL Normal 150-400 [facility] Comment on above: Performed By: #### T S #### S PATHOLOGY LABORATORY [address] [place], [place], RBC (Bld) [#/Vol] 2.40 10*6/uL Low 4.50-5.90 [facility] Comment on above: Performed By: #### T S #### S PATHOLOGY LABORATORY [address] [place], [place], WBC (Bld) [#/Vol] 9.6 10*3/uL Normal 4.5-11.5 [facility] Comment on above: Performed By: #### T S #### S PATHOLOGY LABORATORY [address] [place], [place], Care Plan Noteon 02-21-2023 Tile Classifier Authentication Interface Message Text Problem: Routine Care: Goal: Patient care will be managed and maintained throughout hospital stay per unit specific routine care procedure Outcome: Progressing Purposeful rounding per floor routine Problem: Impaired Skin Integrity: Goal: Skin integrity will improve and/or be maintained Outcome: Progressing Problem: Impaired Mobility: Goal: Ability to tolerate increased activity will improve and be maintained Outcome: Progressing Problem: Activity Intolerance: Goal: Demonstrate progressive return to baseline activity level Outcome: Progressing Problem: VTE Prophylaxis: Goal: Will be free of DVT Outcome: Progressing Problem: Fluid and Electrolyte Imbalance: Goal: Adequate fluid and electrolyte balance will be achieved and maintained Outcome: Progressing Problem: Alteration in Tissue Perfusion: Peripheral: Goal: Promote adequate perfusion and limit complications for a person experiencing or is at risk for inadequate tissue perfusion in peripheral circulation Outcome: Progressing Problem: Alteration in Respiratory Status: Goal: Achieve Optimal Respiratory Status with Minimal Ventilatory/Oxygen Support Outcome: Progressing Problem: Acute Pain: Goal: Ability to identify pain intensity on a pain scale and rate it consistently will be achieved and maintained Outcome: Progressing Problem: Safety: Goal: Patient will remain free of falls during hospital stay Outcome: Progressing Bed in lowest position, call light within reach Goal: Free from injury during hospitalization Outcome: Progressing Problem: Discharge Planning: Goal: Discharge needs of the adult patient will be met Outcome: Progressing Problem: Routine Care: Goal: Patient care will be managed and maintained throughout hospital stay per unit specific routine care procedure Outcome: Progressing Problem: Acute Pain: Goal: Ability to identify pain intensity on a pain scale and rate it consistently will be achieved and maintained Outcome: Progressing Problem: Safety: Goal: Patient will remain free of falls during hospital stay Outcome: Progressing Problem: Discharge Planning: Goal: Discharge needs of the adult patient will be met Outcome: Progressing Problem: Restraint: Goal: Remain safe while in restraints and once discontinued Outcome: Progressing Normal [facility] GLUCOSE, FINGERSTICK-IN OFFI CEon 02-21-2023 Glucose [Mass/Vol] 144 mg/dL High 80-116 [facility] Comment on above: Performed By: #### 8 2948 #### NURSING GLUCOSE PROGRAM [address] [place], [address] Glucose [Mass/Vol] 144 mg/dL High 80 - 116 mg/dL [facility] Interpretation and review of laboratory results Abnormal [facility] MAGNESIUMon 02-21-2023 Magnesium [Mass/Vol] 1.9 mg/dL Normal 1.6-2.8 [facility] Comment on above: Performed By: #### T S #### [facility] [address] [place], [address] Magnesium [Mass/Vol] 1.9 mg/dL 1.6 - 2.8 mg/dL [facility] No Panel Informationon 02-21 Interpretation and review of laboratory results Normal [facility] PHOSPHORUSon 02-21-2023 Phosphate [Mass/Vol] 2.3 mg/dL Normal 2.3-4.2 [facility] Comment on above: Performed By: #### T S #### [facility] [address] [place], [address] Phosphate [Mass/Vol] 2.3 mg/dL 2.3 - 4.2 mg/dL [facility] Procedureson 02-21-2023 Tile Classifier Authentication Interface Message Text Upper Extremities Venous Duplex [address] [place], [place] [address] Status:Open Demographics Patient name: JUAN Leung Gender: Male Date of : 1950 Age: 72 year(s) Procedure Information Procedure date: 02/21/2023 2:15 PM Procedure type: Vascular Proc. sub type: Veins, Upper Extremities Veins, LIMITED DUPLEX VEIN SCAN UE Accession no: [id number] Patient status: Routine Study location: Portable Technical quality: Poor visualization Limitation reason: Poor acoustical window Procedure Staff Referring Physician: SUKHWINDER BRIAN Cloth Cutting Machine Operator: Alex Castañeda RVT Interpreting physician: NATAN Ceja MD Indications Pain, edema, discoloration. Risk Factors Additional comments: No significant history Page 1/2 JUAN Leung 1950 [id number] 02/21/2023 2:15 PM Upper Extremities Venous Duplex UE Veins Findings Left Location Visualized Compression Thrombosis Signal IJV Yes Yes None Phasic SCV Yes Yes None Phasic Axillary Yes Yes None Phasic Mid Axillary Yes Yes None Dist Yes Yes None Axillary Prox Yes Yes None Brachial Mid Yes Yes None Brachial Dist Yes Yes None Phasic Brachial Right Left Location Visualized Compression Thrombosis Visualized Compression Thrombosis Basilic at Prox UA Yes Yes None Basilic at Mid UA Yes Yes None Basilic at Dist UA Yes Yes None Basilic at AF Yes Yes None Cephalic at Prox UA No Physician Impressions Left: LEFT: There is no evidence of deep vein thrombosis in the left upper extremity and internal jugular vein. Physician Conclusions Summary: Simultaneous real time imaging of venous blood flow using both pulsed and color Doppler, as well as B-mode evaluation of the venous system with compression techniques, was used to evaluate the deep veins of the left upper extremity and internal jugular vein. The study demonstrates the following finding LEFT: There is no evidence of deep vein thrombosis in the left upper extremity and internal jugular vein. Page 2/2 JUAN Leung 1950 [id number] 02/21/2023 2:15 PM Invalid Interpretation Code [email or web address] Progress Noteson 02-21-2023 Tile Classifier Authentication Interface Message Text Preliminary Vascular Lab Report Duplex Left Upper Extremity Vein Scan No evidence deep vein thrombus left upper extremity, official to follow report to follow. Masoud Castañeda RVT Normal [facility] [employer] T[employer] Authentication Interface Message Text Pt is rec for SNF Pt was denied from [facility] due to no available bed. Ruben will like updates Friday before deciding to clinically accept. Pt is still pending med readiness Pt will not need precert SW will continue to follow Aj Marie [facility] Normal [facility] [employer] Authentication Interface Message Text At 19:40 patient called nursing staff stating he, didn't feel right, felt cloudy, felt weird. Patient confirmed feeling foggy but declined head ache, nausea, chest pain, SOB, or numbness/tingling. Upon assessment patient A AND Ox3, follows commands, FARMER, PERRLA. Vitals obtained, were unremarkable. EKG obtained, demonstrated afib. CBC/BMP obtained as well as urinalysis. MD Barrientos notified of patient's status. Upon re-assessment patient states they feel fine, and no-longer feel the way they did earlier. MD Barrientos notified of return to baseline. Will continue to monitor. Normal [email or web address] URINALYSIS WITH REFLEX CULTU RE PERFORMABLEon 02-21-2023 Glucose Ql (U) Negative Normal Negative [email or web address] Comment on above: Order Comment: A neg ative leukocyte esterase AND negative nitrite test or absence of pyuria (urine WBC count <= 5-10) make a UTI (urinary tract infection) very unlikely in a non-neutropenic adult (<=5% likelihood in many studies). A positive leukocyte esterase, nitrite and/or pyuria is a nonspecific result. This can be seen in conditions other than a UTI e.g. asymptomatic bacteriuria, gynecologic infections, sexually transmitted infections, and noninfectious conditions (positive predictive value for UTI around 50%) Performed By: #### M JUDITH Harper8, PHOS #### [facility] [address] [place] [address], Protein (U) [Mass/Vol] 30 mg/dL Abnormal Negative [facility] Comment on above: Order Comment: A neg ative leukocyte esterase AND negative nitrite test or absence of pyuria (urine WBC count <= 5-10) make a UTI (urinary tract infection) very unlikely in a non-neutropenic adult (<=5% likelihood in many studies). A positive leukocyte esterase, nitrite and/or pyuria is a nonspecific result. This can be seen in conditions other than a UTI e.g. asymptomatic bacteriuria, gynecologic infections, sexually transmitted infections, and noninfectious conditions (positive predictive value for UTI around 50%) Performed By: #### Jennifer Harper CH8, PHOS #### [facility] [address] [place] [address], U APPEAR Clear Normal Clear The [facility] Comment on above: Order Comment: A neg ative leukocyte esterase AND negative nitrite test or absence of pyuria (urine WBC count <= 5-10) make a UTI (urinary tract infection) very unlikely in a non-neutropenic adult (<=5% likelihood in many studies). A positive leukocyte esterase, nitrite and/or pyuria is a nonspecific result. This can be seen in conditions other than a UTI e.g. asymptomatic bacteriuria, gynecologic infections, sexually transmitted infections, and noninfectious conditions (positive predictive value for UTI around 50%) Performed By: #### M Meredith CH8, PHOS #### [facility] [address] [place] [address], U BILI Negative Normal Negative [facility] Comment on above: Order Comment: A neg ative leukocyte esterase AND negative nitrite test or absence of pyuria (urine WBC count <= 5-10) make a UTI (urinary tract infection) very unlikely in a non-neutropenic adult (<=5% likelihood in many studies). A positive leukocyte esterase, nitrite and/or pyuria is a nonspecific result. This can be seen in conditions other than a UTI e.g. asymptomatic bacteriuria, gynecologic infections, sexually transmitted infections, and noninfectious conditions (positive predictive value for UTI around 50%) Performed By: #### M Meredith CH8, PHOS #### S PATHOLOG[facility] LABORATORY [address] [place] [address], U BLOOD Negative Normal Negative [facility] Comment on above: Order Comment: A neg ative leukocyte esterase AND negative nitrite test or absence of pyuria (urine WBC count <= 5-10) make a UTI (urinary tract infection) very unlikely in a non-neutropenic adult (<=5% likelihood in many studies). A positive leukocyte esterase, nitrite and/or pyuria is a nonspecific result. This can be seen in conditions other than a UTI e.g. asymptomatic bacteriuria, gynecologic infections, sexually transmitted infections, and noninfectious conditions (positive predictive value for UTI around 50%) Performed By: #### M Meredith CH8, PHOS #### [facility] [address] [place] [address], U COLOR Yellow Normal Colorless [facility] Comment on above: Order Comment: A neg ative leukocyte esterase AND negative nitrite test or absence of pyuria (urine WBC count <= 5-10) make a UTI (urinary tract infection) very unlikely in a non-neutropenic adult (<=5% likelihood in many studies). A positive leukocyte esterase, nitrite and/or pyuria is a nonspecific result. This can be seen in conditions other than a UTI e.g. asymptomatic bacteriuria, gynecologic infections, sexually transmitted infections, and noninfectious conditions (positive predictive value for UTI around 50%) Performed By: #### M Meredith, CH8, PHOS #### S [facility] [address], [place], U KETONE Negative Normal Negative [facility] Comment on above: Order Comment: A neg ative leukocyte esterase AND negative nitrite test or absence of pyuria (urine WBC count <= 5-10) make a UTI (urinary tract infection) very unlikely in a non-neutropenic adult (<=5% likelihood in many studies). A positive leukocyte esterase, nitrite and/or pyuria is a nonspecific result. This can be seen in conditions other than a UTI e.g. asymptomatic bacteriuria, gynecologic infections, sexually transmitted infections, and noninfectious conditions (positive predictive value for UTI around 50%) Performed By: #### M JUDITH Harper8, PHOS #### [facility] [address] [place] [address], U LEUK Negative Normal Negative [email or web address] Comment on above: Order Comment: A neg ative leukocyte esterase AND negative nitrite test or absence of pyuria (urine WBC count <= 5-10) make a UTI (urinary tract infection) very unlikely in a non-neutropenic adult (<=5% likelihood in many studies). A positive leukocyte esterase, nitrite and/or pyuria is a nonspecific result. This can be seen in conditions other than a UTI e.g. asymptomatic bacteriuria, gynecologic infections, sexually transmitted infections, and noninfectious conditions (positive predictive value for UTI around 50%) Performed By: #### M JUDITH Harper8, PHOS #### [facility] [address] [place] [address], U MUCOUS Present Normal [facility] Comment on above: Order Comment: A neg ative leukocyte esterase AND negative nitrite test or absence of pyuria (urine WBC count <= 5-10) make a UTI (urinary tract infection) very unlikely in a non-neutropenic adult (<=5% likelihood in many studies). A positive leukocyte esterase, nitrite and/or pyuria is a nonspecific result. This can be seen in conditions other than a UTI e.g. asymptomatic bacteriuria, gynecologic infections, sexually transmitted infections, and noninfectious conditions (positive predictive value for UTI around 50%) Performed By: #### M Meredith CH8, PHOS #### [facility] [address] [place] [address], U NITRITE Negative Normal Negative [email or web address] Comment on above: Order Comment: A neg ative leukocyte esterase AND negative nitrite test or absence of pyuria (urine WBC count <= 5-10) make a UTI (urinary tract infection) very unlikely in a non-neutropenic adult (<=5% likelihood in many studies). A positive leukocyte esterase, nitrite and/or pyuria is a nonspecific result. This can be seen in conditions other than a UTI e.g. asymptomatic bacteriuria, gynecologic infections, sexually transmitted infections, and noninfectious conditions (positive predictive value for UTI around 50%) Performed By: #### Jennifer Harper CH8, PHOS #### [facility] [address], [place], U PH 6.5 Normal 5.0-8.0 [email or web address] Comment on above: Order Comment: A neg ative leukocyte esterase AND negative nitrite test or absence of pyuria (urine WBC count <= 5-10) make a UTI (urinary tract infection) very unlikely in a non-neutropenic adult (<=5% likelihood in many studies). A positive leukocyte esterase, nitrite and/or pyuria is a nonspecific result. This can be seen in conditions other than a UTI e.g. asymptomatic bacteriuria, gynecologic infections, sexually transmitted infections, and noninfectious conditions (positive predictive value for UTI around 50%) Performed By: #### Jennifer Harper CH8, PHOS #### [facility] [address] [place], [place], U RBC 3-5 Abnormal 0-2 [email or web address] Comment on above: Order Comment: A neg ative leukocyte esterase AND negative nitrite test or absence of pyuria (urine WBC count <= 5-10) make a UTI (urinary tract infection) very unlikely in a non-neutropenic adult (<=5% likelihood in many studies). A positive leukocyte esterase, nitrite and/or pyuria is a nonspecific result. This can be seen in conditions other than a UTI e.g. asymptomatic bacteriuria, gynecologic infections, sexually transmitted infections, and noninfectious conditions (positive predictive value for UTI around 50%) Performed By: #### Jennifer Harper, CH8, PHOS #### S [facility] [address], [place], U SG 1.026 Normal <=1.030 [email or web address] Comment on above: Order Comment: A neg ative leukocyte esterase AND negative nitrite test or absence of pyuria (urine WBC count <= 5-10) make a UTI (urinary tract infection) very unlikely in a non-neutropenic adult (<=5% likelihood in many studies). A positive leukocyte esterase, nitrite and/or pyuria is a nonspecific result. This can be seen in conditions other than a UTI e.g. asymptomatic bacteriuria, gynecologic infections, sexually transmitted infections, and noninfectious conditions (positive predictive value for UTI around 50%) Performed By: #### ASIA Freitas, MIGUEL #### S [facility] [address] [place] [address], U UROBILI 2.0 mg/dL Abnormal Negative [facility] Comment on above: Order Comment: A neg ative leukocyte esterase AND negative nitrite test or absence of pyuria (urine WBC count <= 5-10) make a UTI (urinary tract infection) very unlikely in a non-neutropenic adult (<=5% likelihood in many studies). A positive leukocyte esterase, nitrite and/or pyuria is a nonspecific result. This can be seen in conditions other than a UTI e.g. asymptomatic bacteriuria, gynecologic infections, sexually transmitted infections, and noninfectious conditions (positive predictive value for UTI around 50%) Performed By: #### ASIA Freitas, MIGUEL #### [facility] [address], [place], U WBC 3-5 Abnormal 0-2 [facility] Comment on above: Order Comment: A neg ative leukocyte esterase AND negative nitrite test or absence of pyuria (urine WBC count <= 5-10) make a UTI (urinary tract infection) very unlikely in a non-neutropenic adult (<=5% likelihood in many studies). A positive leukocyte esterase, nitrite and/or pyuria is a nonspecific result. This can be seen in conditions other than a UTI e.g. asymptomatic bacteriuria, gynecologic infections, sexually transmitted infections, and noninfectious conditions (positive predictive value for UTI around 50%) Performed By: #### ASIA Freitas, PHOS #### [facility] [address], [place], BASIC METABOLIC PANELon 12-2 Anion gap [Moles/Vol] 12 mmol/L Normal 10-20 [facility] Comment on above: Performed By: #### C AKHIL #### [facility] [address], [place], Calcium [Mass/Vol] 7.5 mg/dL Low 8.6-10.3 [facility] Comment on above: Result Comment: Note updated reference ranges. Performed By: #### C BC #### [facility] [address], [place], Chloride [Moles/Vol] 99 mmol/L Normal 98-107 [facility] Comment on above: Result Comment: Note updated reference ranges. Performed By: #### C BC #### S [facility] [address], [place], CO2 [Moles/Vol] 29 mmol/L Normal 21-31 [facility] Comment on above: Result Comment: Note updated reference ranges. Performed By: #### C BC #### S [facility] [address], [place], Creatinine [Mass/Vol] 0.81 mg/dL Normal 0.70-1.30 [facility] Comment on above: Result Comment: Note updated reference ranges. Performed By: #### C BC #### S [facility] [address], [place], ESTIMATED GFR (CKD-EPI) 93 mL/min/1.73sqm Normal >=60 [facility] Comment on above: Result Comment: 2020 CKD EPI Equation using Creatinine without Race Comment: Estimated glomerular filtration rate (eGFR) is calculated without a race coefficient. Values should be interpreted in the context of the patient's full clinical presentation. Reference: 1. Clayton C, Lan M, Alissa RAMEY, et al.. A Unifying Approach for GFR Estimation: Recommendations of the NKF-ASN Task Force on Reassessing the Inclusion of Race in Diagnosing Kidney Disease. [place] Journal of Kidney Diseases 2021;79(2):268-88.e1. 2. N Engl J Med 1 Vol. 385 Issue 19 Pages 8955-4740 Performed By: #### C BC #### [facility] [address], [place], Glucose [Mass/Vol] 126 mg/dL High 74-109 The [facility] Comment on above: Performed By: #### C BC #### S [facility] [address], [place], Potassium [Moles/Vol] 3.3 mmol/L Low 3.5-5.0 [facility] Comment on above: Result Comment: Note updated reference ranges. Note updated reference ranges. Performed By: #### C BC #### [facility] [address] [place] [address], Sodium [Moles/Vol] 137 mmol/L Normal 136-145 [facility] Comment on above: Result Comment: Note updated reference ranges. Performed By: #### C BC #### [facility] [address] [place] [address], Urea nitrogen [Mass/Vol] 26 mg/dL High 7-25 [facility] Comment on above: Result Comment: Note updated reference ranges. Performed By: #### Vijaya BC #### [facility] [address] [place] [address], Anion gap [Moles/Vol] 10 mmol/L Normal 10-20 [facility] Comment on above: Performed By: #### ASIA Freitas, PHOS #### [facility] [address] [place] [address], Calcium [Mass/Vol] 7.9 mg/dL Low 8.6-10.3 [facility] Comment on above: Result Comment: Note updated reference ranges. Performed By: #### ASIA Freitas, PHOS #### [facility] [address] [place] [address], Chloride [Moles/Vol] 102 mmol/L Normal 98-107 [facility] Comment on above: Result Comment: Note updated reference ranges. Performed By: #### ASIA Freitas, PHOS #### [facility] [address] [place] [address], CO2 [Moles/Vol] 30 mmol/L Normal 21-31 [facility] Comment on above: Result Comment: Note updated reference ranges. Performed By: #### ASIA Freitas, PHOS #### [facility] [address] [place] [address], Creatinine [Mass/Vol] 0.79 mg/dL Normal 0.70-1.30 [facility] Comment on above: Result Comment: Note updated reference ranges. Performed By: #### ASIA Freitas, FAVIOLAS #### [facility] [address], [place], ESTIMATED GFR (CKD-EPI) 93 mL/min/1.73sqm Normal >=60 [facility] Comment on above: Result Comment: 2020 CKD EPI Equation using Creatinine without Race Comment: Estimated glomerular filtration rate (eGFR) is calculated without a race coefficient. Values should be interpreted in the context of the patient's full clinical presentation. Reference: 1. Clayton C, Lan M, Alissa RAMEY, et al.. A Unifying Approach for GFR Estimation: Recommendations of the NKF-ASN Task Force on Reassessing the Inclusion of Race in Diagnosing Kidney Disease. [place] Journal of Kidney Diseases 202;79(2):268-88.e1. 2. N Engl J Med 2020 Vol. 385 Issue 19 Pages [phone] Performed By: #### ASIA Freitas PHOS #### [facility] [address] [place] [address], Glucose [Mass/Vol] 139 mg/dL High 74-109 [facility] Comment on above: Performed By: #### ASIA Freitas, PHOS #### [facility] [address] [place] [address], Potassium [Moles/Vol] 3.7 mmol/L Normal 3.5-5.0 [email or web address] Comment on above: Result Comment: Note updated reference ranges. Note updated reference ranges. Performed By: #### ASIA Freitas, FAVIOLAS #### [facility] [address], [place], Sodium [Moles/Vol] 138 mmol/L Normal 136-145 [email or web address] Comment on above: Result Comment: Note updated reference ranges. Performed By: #### ASIA Freitas, PHOS #### [facility] [address], [place], Urea nitrogen [Mass/Vol] 23 mg/dL Normal 7-25 [facility] Comment on above: Result Comment: Note updated reference ranges. Performed By: #### ASIA Freitas, PHOS #### [facility] [address] [place], [id number] Basic metabolic 2000 panelon 02-20-2023 Anion gap [Moles/Vol] 12 mmol/L 10 - 20 [facility] Calcium [Mass/Vol] 7.5 mg/dL Low 8.6 - 10. 3 mg/dL [facility] Chloride [Moles/Vol] 99 mmol/L 98 - 107 mmol/L [facility] CO2 [Moles/Vol] 29 mmol/L 21 - 31 mmol/L [facility] Creatinine [Mass/Vol] 0.81 mg/dL 0.70 - 1.30 mg/dL [facility] GFR/1.73 sq M.predicted CKD-EPI (S/P/Bld) [Vol rate/Area] 93 - PINF [facility] Glucose [Mass/Vol] 126 mg/dL High 74 - 109 mg/dL [facility] Interpretation and review of laboratory results Abnormal [facility] Potassium [Moles/Vol] 3.3 mmol/L Low 3.5 - 5.0 mmol/L [facility] Sodium [Moles/Vol] 137 mmol/L 136 - 145 mmol/L [facility] Urea nitrogen [Mass/Vol] 26 mg/dL High 7 - 25 mg/dL [facility] Anion gap [Moles/Vol] 10 mmol/L 10 - 20 [facility] Calcium [Mass/Vol] 7.9 mg/dL Low 8.6 - 10. 3 mg/dL [facility] Chloride [Moles/Vol] 102 mmol/L 98 - 107 mmol/L [facility] CO2 [Moles/Vol] 30 mmol/L 21 - 31 mmol/L [facility] Creatinine [Mass/Vol] 0.79 mg/dL 0.70 - 1.30 mg/dL [facility] GFR/1.73 sq M.predicted CKD-EPI (S/P/Bld) [Vol rate/Area] 93 - PINF [facility] Glucose [Mass/Vol] 139 mg/dL High 74 - 109 mg/dL [facility] Potassium [Moles/Vol] 3.7 mmol/L 3.5 - 5.0 mmol/L [facility] Sodium [Moles/Vol] 138 mmol/L 136 - 145 mmol/L [facility] Urea nitrogen [Mass/Vol] 23 mg/dL 7 - 25 mg/dL [facility] CBC panel Auto (Bld)on 02-20 Erythrocyte distribution width (RBC) [Ratio] 14.7 % High 11.5 - 14.5 % [facility] Hematocrit (Bld) [Volume fraction] 23.3 % Low 41.0 - 53.0 % [facility] Hemoglobin (Bld) [Mass/Vol] 7.7 g/dL Low 13.9 - 16.3 g/dL [facility] Interpretation and review of laboratory results Abnormal [facility] MCH (RBC) [Entitic mass] 30.2 pg 26.0 - 34.0 pg [facility] MCHC (RBC) [Mass/Vol] 33.2 g/dL 32.0 - 35.9 g/dL [facility] MCV (RBC) [Entitic vol] 91 fL 80 - 100 fL [facility] Platelet mean volume (Bld) [Entitic vol] 8.5 fL 7.5 - 11.2 fL [facility] Platelets (Bld) [#/Vol] 192 10*3/uL 150 - 400 K/uL [facility] RBC (Bld) [#/Vol] 2.56 10*6/uL Low [facility] WBC (Bld) [#/Vol] 9.1 10*3/uL 4.5 - 11.5 K/uL [facility] CBC panel Auto (Bld)Ordered By: Carina Reeves on 02-20-2023 Erythrocyte distribution width (RBC) [Ratio] 14.4 % 11.5 - 14.5 % [facility] Hematocrit (Bld) [Volume fraction] 22.8 % Low 41.0 - 53.0 % [facility] Hemoglobin (Bld) [Mass/Vol] 7.8 g/dL Low 13.9 - 16.3 g/dL [facility] Interpretation and review of laboratory results Abnormal [facility] MCH (RBC) [Entitic mass] 31.0 pg 26.0 - 34.0 pg [facility] MCHC (RBC) [Mass/Vol] 34.4 g/dL 32.0 - 35.9 g/dL [facility] MCV (RBC) [Entitic vol] 90 fL 80 - 100 fL [facility] Platelet mean volume (Bld) [Entitic vol] 9.0 fL 7.5 - 11.2 fL [facility] Platelets (Bld) [#/Vol] 159 10*3/uL 150 - 400 K/uL [facility] RBC (Bld) [#/Vol] 2.53 10*6/uL Low [facility] WBC (Bld) [#/Vol] 8.7 10*3/uL 4.5 - 11.5 K/uL [facility] COMPLETE BLOOD COUNTon 02-20 Erythrocyte distribution width (RBC) [Ratio] 14.7 % High 11.5-14.5 [facility] Comment on above: Performed By: #### T S #### [facility] [address] [place] [address], Hematocrit (Bld) [Volume fraction] 23.3 % Low 41.0-53.0 [facility] Comment on above: Performed By: #### T S #### [facility] [address] [place] [address], Hemoglobin (Bld) [Mass/Vol] 7.7 g/dL Low 13.9-16.3 [facility] Comment on above: Performed By: #### T S #### [facility] [address] [place] [address], MCH (RBC) [Entitic mass] 30.2 pg Normal 26.0-34.0 [facility] Comment on above: Performed By: #### T S #### [facility] [address] [place] [address], MCHC (RBC) [Mass/Vol] 33.2 g/dL Normal 32.0-35.9 [facility] Comment on above: Performed By: #### T S #### [facility] [address] [place] [address], MCV (RBC) [Entitic vol] 91 fL Normal 80-100 [facility] Comment on above: Performed By: #### T S #### S [facility] LAB[facility]ORY [address] [place] [address], Platelet mean volume (Bld) [Entitic vol] 8.5 fL Normal 7.5-11.2 [facility] Comment on above: Performed By: #### T S #### [facility] [address] [place] [address], Platelets (Bld) [#/Vol] 192 10*3/uL Normal 150-400 [facility] Comment on above: Performed By: #### T S #### [facility] [address] [place] [address], RBC (Bld) [#/Vol] 2.56 10*6/uL Low 4.50-5.90 [facility] Comment on above: Performed By: #### T S #### [facility] [address] [place] [address], WBC (Bld) [#/Vol] 9.1 10*3/uL Normal 4.5-11.5 [facility] Comment on above: Performed By: #### T S #### [facility] [address] [place] [address], Erythrocyte distribution width (RBC) [Ratio] 14.4 % Normal 11.5-14.5 [facility] Comment on above: Performed By: #### C BC #### [facility] [address] [place] [address], Hematocrit (Bld) [Volume fraction] 22.8 % Low 41.0-53.0 [facility] Comment on above: Performed By: #### C BC #### [facility] [address] [place] [address], Hemoglobin (Bld) [Mass/Vol] 7.8 g/dL Low 13.9-16.3 [facility] Comment on above: Performed By: #### C BC #### [facility] [address] [place] [address], MCH (RBC) [Entitic mass] 31.0 pg Normal 26.0-34.0 [facility] Comment on above: Performed By: #### C BC #### [facility] [address] [place] [address], MCHC (RBC) [Mass/Vol] 34.4 g/dL Normal 32.0-35.9 [facility] Comment on above: Performed By: #### C BC #### [facility] [address] [place] [address], MCV (RBC) [Entitic vol] 90 fL Normal 80-100 [facility] Comment on above: Performed By: #### C BC #### [facility] [address] [place] [address], Platelet mean volume (Bld) [Entitic vol] 9.0 fL Normal 7.5-11.2 [facility] Comment on above: Performed By: #### C BC #### [facility] [address] [place] [address], Platelets (Bld) [#/Vol] 159 10*3/uL Normal 150-400 [facility] Comment on above: Performed By: #### C BC #### [facility] [address] [place] [address], RBC (Bld) [#/Vol] 2.53 10*6/uL Low 4.50-5.90 [facility] Comment on above: Performed By: #### C BC #### [facility] [address] [place] [address], WBC (Bld) [#/Vol] 8.7 10*3/uL Normal 4.5-11.5 [facility] Comment on above: Performed By: #### C BC #### [facility] [address] [place] [address], COVID/INFLUENZAon 02-20-2023 INFLUENZA A Not detected Normal Not Detected [facility] Comment on above: Order Comment: Not D etected results are indicative of the absence of SARS-CoV-2 in the specimen submitted for testing. False negative results are possible based on the timing and quality of specimen submitted for testing. Result Comment: This assay was performed using [employer] RTPCR technology. Performed By: #### T S #### [facility] [address] [place] [address], INFLUENZA B Not detected Normal Not Detected [facility] Comment on above: Order Comment: Not D etected results are indicative of the absence of SARS-CoV-2 in the specimen submitted for testing. False negative results are possible based on the timing and quality of specimen submitted for testing. Result Comment: This assay was performed using [employer] RTPCR technology. Performed By: #### T S #### [facility] [address], [place], SARS-CoV-2 (COVID-19) RNA FABI+probe Ql (Unsp spec) Not detected Normal Not Detected [facility] Comment on above: Order Comment: Not D etected results are indicative of the absence of SARS-CoV-2 in the specimen submitted for testing. False negative results are possible based on the timing and quality of specimen submitted for testing. Result Comment: This assay was performed using Bernard [employer]OOK[employer] RTPCR technology. Performed By: #### T S #### [facility] [address], [place], COVID/INFLUENZAOrdered By: Prisca Vogel on 02-20-2023 FLUAV RNA FABI+probe Ql (Nph) Not detected Not Detected [facility] FLUBV RNA FABI+probe Ql (Nph) Not detected Not Detected [facility] Interpretation and review of laboratory results Normal [facility] SARS-CoV-2 (COVID-19) RNA FABI+probe Ql (Unsp spec) Not detected Not Detected [facility] Care Plan Noteon 02-20-2023 Tile Classifier Authentication Interface Message Text Called to bedside to assess for left arm swelling. Does appear left arm is asymmetrically swollen compared to right. Neurovascularly intact however. Denies chest pain, sob at this time. Will order duplex RUE to r/o dvt. Kevin Barrientos, Normal [facility] Tile Classifier Authentication Interface Message Text Noticed increased swelling and warmth on Left arm compared to earlier in shift and Right arm. Pt was also unable to be weaned off O2 as well and complains of shortness of breath at times, and cannot tolerate lying flat. Vitals unremarkable otherwise. MD communications manager notified and will come bedside after trauma. Normal [facility] MAGNESIUMon 02-20-2023 Magnesium [Mass/Vol] 2.0 mg/dL Normal 1.6-2.8 [facility] Comment on above: Performed By: #### C H8, PHOS, MG ####[facility] [id number] [place], [place], Magnesium [Mass/Vol] 2.0 mg/dL 1.6 - 2.8 mg/dL [facility] Magnesium [Mass/Vol] 1.9 mg/dL Normal 1.6-2.8 [facility] Comment on above: Performed By: #### ASIA Freitas, PHOS #### [facility] [address], [place], Interpretation and review of laboratory results Normal [facility] Magnesium [Mass/Vol] 1.9 mg/dL 1.6 - 2.8 mg/dL [facility] No Panel Informationon 02-20 Interpretation and review of laboratory results Normal [facility] Interpretation and review of laboratory results Abnormal [facility] PHOSPHORUSon 02-20-2023 Phosphate [Mass/Vol] 2.8 mg/dL Normal 2.3-4.2 [facility] Comment on above: Performed By: #### C H8, PHOS, MG ####[facility] [id number] [place], [place], Phosphate [Mass/Vol] 2.8 mg/dL 2.3 - 4.2 mg/dL [facility] Phosphate [Mass/Vol] 2.2 mg/dL Low 2.3-4.2 [facility] Comment on above: Performed By: #### ASIA Freitas, PHOS #### [facility] [address], [place], Phosphate [Mass/Vol] 2.2 mg/dL Low 2.3 - 4.2 mg/dL [facility] Progress Noteson 02-20-2023 Tile Classifier Authentication Interface Message Text [facility] 02/20/2023 Reason for Services: Follow-Up Coil Repair Technician attempted to visit with patient for follow up regarding resources and education provided and answer any questions. Patient was asleep at time of visit. Coil Repair Technician will attempt to engage with Patient and/or Family the next business day. Jess Henley Main Line: [phone] Normal [facility] Tile Classifier Authentication Interface Message Text SW/CM aware that patient meets criteria for SNF. Met with Pt on unit to discuss dispo. Patient open and agreeable to SNF placement. CM/SW provided pt the quality and resource use measure data from available post-acute (PAC) providers, that best align with the patient's treatment goals and preferences from the medicare.gov compare site for SNF. [place] of Choice was provided to the patient/patient bilingual call center representative. Pt want's RAE STROUD [phone] as decision maker for dc planning SW/CM will follow up for choices. Addendum 2:06pm SW called pt's RAE STROUD [phone] she gave the following facility choices [facility] Ms. Stroud has surgery tomorrow, pt's son Anibal Stroud [phone] will be main contact center director for the family. 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 Normal [facility] URINALYSIS WITH REFLEX CULTU RE PERFORMABLEon 02-20-2023 Appearance (U) Clear Clear [facility] Bilirubin Ql (U) Negative Negative [facility] Color (U) Yellow Colorless [facility] Glucose Auto test strip (U) [Mass/Vol] Negative Negative mg/dL [facility] Hemoglobin Ql (U) Negative Negative [facility] Interpretation and review of laboratory results Abnormal [facility] Ketones Ql (U) Negative Negative mg/dL [facility] Leukocyte esterase Test strip Ql (U) Negative Negative [facility] Mucus Ql (Urine sed) Present [facility] Nitrite Ql (U) Negative Negative [facility] pH (U) 6.5 [pH] 5.0 - 8.0 [facility] Protein (U) [Mass/Vol] 30 mg/dL Abnormal Negative [facility] Specific gravity (U) [Rel density] 1.026 NINF - 1.030 [facility] Urobilinogen Qn (U) 2.0 mg/dL Abnormal Negative [facility] WBC (U) [#/Vol] 3-5 Abnormal [facility] WBC LM.HPF (Urine sed) [#/Area] 3-5 Abnormal [facility] ANTI FXA-LMW HEPARINon 02-19 ANTI FXA-LMW HEPARIN ASSAY 0.32 IU/mL Normal [facility] Comment on above: Order Comment: The r ecommended therapeutic range for treatment of thrombosis with Low Molecular Weight Heparin is 0.5 - 1.0 IU/mLThe recommended range for VTE prophylaxis with Low Molecular Weight Heparin is 0.2 - 0.4 IU/mL. Performed By: #### A XL ####[facility] [id number] [place], [place], LMW Heparin Chromogenic method Qn (PPP) 0.32 IU/mL [facility] BASIC METABOLIC PANELon 12-2 Anion gap [Moles/Vol] 10 mmol/L Normal 10-20 [facility] Comment on above: Performed By: #### MIGUEL Carpenter MG ####[facility] [id number] [place], [place], Calcium [Mass/Vol] 7.9 mg/dL Low 8.6-10.3 [facility] Comment on above: Result Comment: Note updated reference ranges. Performed By: #### Vijaya HMatt PHOVan MG ####[facility] [id number] [place], [place], Chloride [Moles/Vol] 105 mmol/L Normal 98-107 [facility] Comment on above: Result Comment: Note updated reference ranges. Performed By: #### Vijaya HMatt PHOS MG ####[facility] [id number] [place], [place], CO2 [Moles/Vol] 28 mmol/L Normal 21-31 [facility] Comment on above: Result Comment: Note updated reference ranges. Performed By: #### C HMatt PHOS MG ####[facility] [id number] [place], [place], Creatinine [Mass/Vol] 0.66 mg/dL Low 0.70-1.30 [facility] Comment on above: Result Comment: Note updated reference ranges. Performed By: #### C H8 PHOS MG ####[facility] [id number] [place], [place], ESTIMATED GFR (CKD-EPI) 98 mL/min/1.73sqm Normal >=60 [facility] Comment on above: Result Comment: 2020 CKD EPI Equation using Creatinine without Race Comment: Estimated glomerular filtration rate (eGFR) is calculated without a race coefficient. Values should be interpreted in the context of the patient's full clinical presentation. Reference: 1. Clayton C, Lan M, Alissa RAMEY, et al.. A Unifying Approach for GFR Estimation: Recommendations of the NKF-ASN Task Force on Reassessing the Inclusion of Race in Diagnosing Kidney Disease. [place] Journal of Kidney Diseases 202;79(2):268-88.e1. 2. N Engl J Med 1 Vol. 385 Issue 19 Pages 8089-4185 Performed By: #### C H8, PHOS, MG ####[facility] [id number] [place], [place], Glucose [Mass/Vol] 116 mg/dL High 74-109 [facility] Comment on above: Performed By: #### C H8 PHOS, MG ####[facility] [id number] [place], [place], Potassium [Moles/Vol] 4.4 mmol/L Normal 3.5-5.0 [facility] Comment on above: Result Comment: Note updated reference ranges. Note updated reference ranges. Performed By: #### C H8, PHOS, MG ####[facility] [id number] [place], [place], Sodium [Moles/Vol] 139 mmol/L Normal 136-145 [facility] Comment on above: Result Comment: Note updated reference ranges. Performed By: #### C H8, PHOS, MG ####[facility] [id number] [place], [place], Urea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 02/15/2023 5:46 pm Signed by: Jeet Razo MD, V. Transcribed by: SIDDHARTH Technologist: ELISA Technical Comments Radiation Dose: Ka,r in mGy = na DAP = na [facility] XR Hip - left AP and Lateral on 02-15-2023 [facility] XR Hip 2-3 Views Left + Pelv zenaida 02-15-2023 XR Hip 2-3 Views Left + Pelvis Exam Date/Time: 02/15/2023 17:14 EST Reason for Exam: Pain, Traumatic Report IMPRESSION: There is a transverse fracture of the diaphysis of the femur distal to the intramedullary portion of the hip arthroplasty with displacement and foreshortening. CLINICAL HISTORY: Pain, Traumatic 3 views COMPARISON: NONE. AP pelvis and left hip FINDINGS: There are no lytic or sclerotic bone lesions. Status post left hip arthroplasty. Acetabular and femoral components are in alignment. There is a transverse mildly comminuted fracture of the proximal diaphysis of the femur distal to the femoral component of the prosthesis with one shaft's width placement and foreshortening. There is residual IV contrast in the urinary bladder and there are numerous metallic foreign bodies in the pelvis consistent with prior brachytherapy. Ordering Provider: Justice Pretty FINAL REPORT Dictated: 02/15/2023 5:45 pm Jeet Razo MD, V. Signed (Electronic Signature): 02/15/2023 5:45 pm Signed by: Jeet Razo MD, V. Transcribed by: SIDDHARTH Technologist: ELISA Technical Comments Radiation Dose: Ka,r in mGy = na DAP = na [facility] XR Knee - left Viewson 02-15 [facility] eGFRon 02-15-2023 GFR/1.73 sq M.predicted among non-blacks MDRD (S/P/Bld) [Vol rate/Area] mL/min/{1.73_m2} Normal >=59 [facility] Comment on above: Order Comment: Order added by Discern Expert. Performed By: #### 2 [id number] #### [facility] [address] [place] [address] POCT PT/INRon 01-31-2023 POCT INR 2.1 High .7-1.2 [facility] Comment on above: Performed By: #### 1 [id number] #### [facility] [address] [facility] [address] POCT PT 22.4 second(s) High 8.0-15.0 [facility] Comment on above: Performed By: #### 1 [id number], [id number] #### [facility] [address] [facility] [address] POCT PT/INRon 12-17-2022 POCT INR 2.3 High .7-1.2 [facility] Comment on above: Performed By: #### 2 [id number] #### [facility] [address] [facility] [address] POCT PT 24.8 second(s) High 8.0-15.0 [facility] Comment on above: Performed By: #### 2 [id number] #### [facility] [address] [facility] [address] POCT PT/INRon 12-03-2022 POCT INR 1.5 High .7-1.2 [facility] Comment on above: Performed By: #### 1 [id number], [id number], [id number] #### [facility] [address] [facility] [address] POCT PT 16.5 second(s) High 8.0-15.0 [facility] Comment on above: Performed By: #### 1 [id number], [id number], [id number], [id number] #### [facility] [address] [facility] [address] POCT PT/INRon 11-05-2022 POCT INR 2.2 High .7-1.2 [facility] Comment on above: Performed By: #### 1 [id number], [id number], [id number] #### [facility] [address] [facility] [address] POCT PT 23.7 second(s) High 8.0-15.0 [facility] Comment on above: Performed By: #### 1 [id number], [id number], [id number], [id number] #### [facility] [address] [place] [address] POCT PT/INRon 10-22-2022 POCT INR 1.9 High .7-1.2 [facility] Comment on above: Performed By: #### 2 [id number] #### [facility] [address] [place] [address] POCT PT 21.3 second(s) High 8.0-15.0 [facility] Comment on above: Performed By: #### 2 [id number] #### [facility] [address] [place] [address] POCT PT/INRon 10-04-2022 POCT INR 1.9 High .7-1.2 [facility] Comment on above: Performed By: #### 2 [id number] #### [facility] [address] [place] [address] POCT PT 21.3 second(s) High 8.0-15.0 [facility] Comment on above: Performed By: #### 2 [id number] #### [facility] [address] [place] [address] POCT PT/INRon 09-06-2022 POCT INR 1.8 High .7-1.2 [facility] Comment on above: Performed By: #### 1 [id number], [id number], [id number], [id number] #### [facility] [address] [place] [address] POCT PT 19.9 second(s) High 8.0-15.0 [facility] Comment on above: Performed By: #### 1 [id number], [id number], [id number], [id number] #### [facility] [address] [place] [address] Tobacco Screening.on 023 Fall risk assessment a) No falls within the last year [facility] [address] DO Work Phone: Tobacco use status [facility] b) No [facility] DO Work Phone: Tobacco Screening. Yes [facility] 250 DO Work Phone: Operative Reporton Operative Report SURGERY DATE: 08/02/2022 PREOPERATIVE DIAGNOSIS: Symptomatic atrial fibrillation POSTOPERATIVE DIAGNOSIS: Symptomatic atrial fibrillation with successful cardioversion to sinus rhythm OPERATION: Direct-current cardioversion with conscious sedation PROCEDURE: The patient was prepped in the usual fashion with large-bore IV access and the anterior-posterior defibrillation electrodes. Propofol 70 mg was administered. Oxygen saturation, blood pressure, and rhythm were monitored. The patient received one synchronized 200 Joule shock successfully converting the patient to normal sinus rhythm with a first-degree atrioventricular block. Oxygen saturation remained 95% or greater throughout the procedure. He awoke neurologically unchanged. PLAN: Discharge home today on same antithrombotic regimen and propofol as before. He will follow up in the office in the near future to ensure the maintenance of sinus rhythm. Crispin Porter M.D. ca Dictated: 08/02/2022 [id number] Transcribed: 08/03/2022 [facility] Comment on above: Result Comment: Elec tronically Signed By: German ESCOBEDO, Christopher Bansal\evelia\Date and Time Signed: 08/19/22 13:42 EDT POCT PT/INRon 08-16-2022 POCT INR 3.1 High .7-1.2 [facility] Comment on above: Performed By: #### 2 [id number] #### [facility] [address] [place] [address] POCT PT 32.7 second(s) High 8.0-15.0 [facility] Comment on above: Performed By: #### 2 [id number] #### [facility] [address] [place] [address] Falls Screening (Age 18+)on 08-13-2022 Fall risk assessment a) No falls within the last year [facility] y 250 DO Work Phone: Consent for Procedure/Surger yon 08-05-2022 Consent for Procedure/Surgery [id number] .00CD:127 [facility] Monitor Recordon 08-05-2022 Monitor Record [id number] .00CD:127 [facility] Cardiovascular Reporton Cardiovascular Report [id number]# 1.00CD:127 [facility] Consent for Treatmenton Consent for Treatment [id number] .00CD:127 [facility] Consultation Noteon 08-03-19 Consultation Note Patient: FREDRICK STROUD MRN: Age: 71 years Sex: Male : 1950 Associated Diagnoses: None Author: Christopher Porter MD Basic Information Airway Assessment: Class II: Visualization of the soft palate, fauces, uvula. Airway Abnormalities: None. ASA Classification: ASA 2: A patient with mild systemic disease. Risks/Benefits of IV Sedation IV Sedation Plan: Patient agrees to IV sedation plan. Changes to History & Physical: None. History of Adverse/Allergic Reaction to Sedation: None. [facility] Comment on above: Result Comment: Elec tronically Signed By: Christopher Porter MD\.br\Date and Time Signed: 08/02/22 12:50 EDT Inpatient Clinical Summaryon 08-02-2022 Inpatient Clinical Summary [place] [id number] Clinical Summary Person Information: Name: FREDRICK STROUD Age: 71 Years : 1950 Sex: Male PCP: KARINA MELGAR MD Marital Status: Phone: [phone] Race: White Ethnicity: Non- or Language: Citizen Of [place] MRN: Visit Id: Visit Reason: I48.19 Speciality: Acuity: Enc Type: Ambulatory/Same Day Surgery Med Service: Cardiovascular Arrival: 08/02/2022 11:37:14 Discharge: Dispo Type: Address: [address] [facility] [id number] Provider Notes: Diagnosis: Atrial fibrillation Problems Active Atrial fibrillation Class 3 severe obesity with body mass index (BMI) of 40.0 to 44.9 in adult HTN (hypertension) Smoking Status: Functional Status: Sensory Deficits: History of Falls: Mobility Assistance Prior to Admission: ADLs: Current Level of Assistance for Self-Care/Mobility: Cognitive Status: Allergies No Known Medication Allergies Measurements: Height: 165 cm Weight: 112 kg Blood Pressure: Not Valued / Not Valued BMI: 41.14 kg/m2 Procedures Cardioversion (08/02/2022) Immunizations No Immunizations Documented This Visit Final Med List: acetaminophen-hydroco done ([place] 325 mg-5 mg oral tablet) 1 Tablets By Mouth every 6 hours as needed for pain. Refills: 0. albuterol (Ventolin HFA 90 mcg/inh inhalation aerosol with adapter) 2 Puffs Inhalation every 6 hours as needed Wheezing/SOB. benzonatate (benzonatate 200 mg oral capsule) hydrochlorothiazide-l isinopril (hydrochlorothiazide- lisinopril 12.5 mg-10 mg Oral) 1 Tablets By Mouth every day. inhaler spacer (MDI spacer adult) 1 Each Inhalation As Directed. Refills: 0. propafenone (propafenone 425 mg oral capsule, extended release) take 1 capsule by mouth every 12 hours. warfarin (warfarin 2 mg Tab) Care Team Members: Attending Physician: Christopher Porter MD Consulting Physician: Referring Physician: Christopher Porter MD Follow up: With: Address: When: Christopher Porter [facility], [facility] [address], [address] [place] [phone] Business (1) Comments: Call for followup appointment Type Location Start Finish State Anticoagulation Follow Up 15 (FT) FT.CARDIO 08/16/2022 11:15 AM 08/16/2022 11:30 AM Confirmed Patient Education Information: CV - Cardioversion (CUSTOM) [facility] Inpatient Patient Summaryon 08-02-2022 Inpatient Patient Summary [address] [address] Patient Discharge Instructions PERSON INFORMATION Name: FREDRICK STROUD Date of : 1950 Current Date: 08/02/2022 13:33:19 PHYSICIANS Admitting Physician: Christopher Porter MD Primary Care Physician: KARINA MELGAR MD PCP Comment: Discharge Diagnosis: Atrial fibrillation Condition at Discharge: Improved JUANFREDRICK has been given the following list of follow-up instructions, prescriptions, and patient education materials: PATIENT FOLLOW-UP INFORMATION Diet: Regular Discharge Activity: Ambulate as tolerated Discharge Restrictions: No driving for 24 hrs Wound Care Instructions: Remove Your Dressing In Days Call Your Doctor For: Persistent vomiting IF UNABLE TO CONTACT YOUR PHYSICIAN AND YOU FEEL IT IS AN EMERGENCY, GO TO THE NEAREST EMERGENCY ROOM OR CALL 911 Home Treatment: Devices/Equipment: Special Services: Additional Instructions: Primary Care Physician to provide the following pending test results: None Follow up: With: Address: When: Christopher Porter [facility], [facility] [address], [address] [place] [phone] Business (1) Comments: Call for followup appointment In the event that this physician does not participate in your insurance network, please consult with your insurance company to find a nearby participating provider. Type Location Start Finish State Anticoagulation Follow Up 15 (FT) FT.CARDIO 08/16/2022 11:15 AM 08/16/2022 11:30 AM Confirmed Comment: JUAN Fitzpatrick DENNIS L, have received the attached patient education materials/instruction s and have verbalized understanding: Patient Signature Date Clinican/Nurse Signature Date HERE ARE THE MEDICATION CHANGES THAT OCCURRED DURING YOUR HOSPITAL STAY Medications to Continue with No Changes Other Medications acetaminophen-hydroco done ([place] 325 mg-5 mg oral tablet) 1 Tablets By Mouth every 6 hours as needed for pain. Refills: 0. Last Dose: ____Next Dose: ____ albuterol (Ventolin HFA 90 mcg/inh inhalation aerosol with adapter) 2 Puffs Inhalation every 6 hours as needed Wheezing/SOB. Last Dose: ____Next Dose: ____ benzonatate (benzonatate 200 mg oral capsule) Last Dose: ____Next Dose: ____ hydrochlorothiazide-l isinopril (hydrochlorothiazide- lisinopril 12.5 mg-10 mg Oral) 1 Tablets By Mouth every day. Last Dose: ____Next Dose: ____ inhaler spacer (MDI spacer adult) 1 Each Inhalation As Directed. Refills: 0. Last Dose: ____Next Dose: ____ propafenone (propafenone 425 mg oral capsule, extended release) take 1 capsule by mouth every 12 hours. Last Dose: ____Next Dose: ____ warfarin (warfarin 2 mg Tab) Last Dose: ____Next Dose: ____ Comment: MEDICATION LIST PROVIDED FOR YOU IS A LIST OF YOUR CURRENT MEDICATIONS. PLEASE CARRY THIS WITH YOU AT ALL TIMES. acetaminophen-hydroco done ([place] 325 mg-5 mg oral tablet) 1 Tablets By Mouth every 6 hours as needed for pain. Refills: 0. albuterol (Ventolin HFA 90 mcg/inh inhalation aerosol with adapter) 2 Puffs Inhalation every 6 hours as needed Wheezing/SOB. benzonatate (benzonatate 200 mg oral capsule) hydrochlorothiazide-l isinopril (hydrochlorothiazide- lisinopril 12.5 mg-10 mg Oral) 1 Tablets By Mouth every day. inhaler spacer (MDI spacer adult) 1 Each Inhalation As Directed. Refills: 0. propafenone (propafenone 425 mg oral capsule, extended release) take 1 capsule by mouth every 12 hours. warfarin (warfarin 2 mg Tab) Pharmacy Information: Comment: PATIENT EDUCATION INFORMATION Instructions: [place], [place] CARDIOVERSION AFTER THE PROCEDURE: DIET: ? Resume pre-procedure diet as tolerated ACTIVITY: ? You should have someone stay with you for the next 24 hours. ? Do not drive, make important decisions, drink alcohol or operate machinery for the next 24 hours. ? Limit your activity for 48 hours after the procedure or as directed by your health care provider. MEDICATIONS: ? Resume pre-procedure medications, unless otherwise directed. ? Triamincinolone cream can be applied as needed every hour. POST-PROCEDURE: ? It is expected to have some redness on the skin where the shocks were delivered. ? Check/feel your pulse throughout the days following your procedure ? It is possible for your heart to return to an abnormal heart rhythm within hours or days after the procedure. ? Avoid or minimize caffeine and other stimulants as directed by your health care provider. ? Keep follow up appointment ? In the event (more content not included)... [facility] - Chemistry and C hemistry - challengeon 08-02-2022 CO2 [Moles/Vol] 27 mmol/L Normal 21-31 [facility] [employer] y 250 DO Work Phone: Laboratory - Coagulationon 0 08-02-2022 INR Coag (Bld) [Relative time] 3.5 {INR} [facility] y 250 DO Work Phone: Comment on above: INR results are spec ifically intended to assess patients stabilized on long-term Anticoagulation therapy suggested INR?s ?Less Intensive Anticoagulation? 2.0 ? 3.0Conventional Range 3.0 ? 4.5 Lyteson 08-02-2022 Anion gap [Moles/Vol] 12 mmol/L Normal 6-16 [facility] Comment on above: Order Comment: STAT on admission. Performed By: #### 2 [id number] #### [facility] [address] [place] [address] Chloride [Moles/Vol] 104 mmol/L Normal 101-111 [facility] Comment on above: Order Comment: STAT on admission. Performed By: #### 2 [id number] #### [facility] [address] [place] [address] CO2 [Moles/Vol] 27 mmol/L Normal 21-31 [facility] Comment on above: Order Comment: STAT on admission. Performed By: #### 2 [id number] #### [facility] [address] [place] [address] Potassium [Moles/Vol] 4.5 mmol/L Normal 3.5-5.3 [facility] Comment on above: Order Comment: STAT on admission. Performed By: #### 2 [id number] #### [facility] [address] [place] [address] Sodium [Moles/Vol] 138 mmol/L Normal 135-145 [facility] Comment on above: Order Comment: STAT on admission. Performed By: #### 2 [id number] #### [facility] [address] [place] [address] No Panel Informationon 08-02 12 {mEq/L} Normal 6-16 [facility] 250 DO Work Phone: 104 mmol/L Normal 101-111 [facility] 250 DO Work Phone: 4.5 mmol/L Normal 3.5-5.3 [facility] 250 DO Work Phone: 138 mmol/L Normal 135-145 [facility] 250 DO Work Phone: 41.2 {second(s)} above high threshold 9.4-12.5 -[facility] 250 DO Work Phone: Comment on above: 15 days - 4 weeks 1 - 5 months 6 -11 months 1-5 years 6-10 years 11 -17 years Mean: 11.2 (9.5-12.6) Mean: 11.0 (9.7-12.8) Mean: 11.0 (9.8-13.0) Mean: 11.3 (9.9-13.4) Mean: 11.7 (10.0-14.6) Mean: 11.8 (10.0 - 14.1) Pediatric Reference ranges were obtained from a study by juanita Zelaya al. prepared from 1437 samples obtained at 7 different centers using the same coagulation reagent and instrumentation [place] [facility] Currently there are no coagulation studies available worldwide for children to 14 days, and no normal ranges. PTon 08-02-2022 INR Coag (PPP) [Relative time] 3.5 {INR} Invalid Interpretation Code [facility] Comment on above: Order Comment: On ad mission if patient is on Coumadin therapy. Result Comment: INR results are specifically intended to assess patients stabilized on long-term Anticoagulation therapy suggested INR?s ?Less Intensive Anticoagulation? 2.0 ? 3.0 Conventional Range 3.0 ? 4.5 Performed By: #### 2 [id number] #### [facility] [address] [place] [address] PT Coag (PPP) [Time] 41.2 second(s) High 9.4-12.5 [facility] Comment on above: Order Comment: On ad mission if patient is on Coumadin therapy. Result Comment: 15 d ays - 4 weeks 1 - 5 months 6 -11 months 1-5 years 6-10 years 11 -17 years Mean: 11.2 (9.5-12.6) Mean: 11.0 (9.7-12.8) Mean: 11.0 (9.8-13.0) Mean: 11.3 (9.9-13.4) Mean: 11.7 (10.0-14.6) Mean: 11.8 (10.0 - 14.1) Pediatric Reference ranges were obtained from a study by Haresh Spann et al. prepared from 1437 samples obtained at 7 different centers using the same coagulation reagent and instrumentation [place] [facility] [place] Currently there are no coagulation studies available worldwide for children to 14 days, and no normal ranges. Performed By: #### 2 [id number] #### [facility] [address] [place] [address] Patient Education - Texton 0 08-02-2022 Patient Education - Text [place], [place] CARDIOVERSION AFTER THE PROCEDURE: DIET: ? Resume pre-procedure diet as tolerated ACTIVITY: ? You should have someone stay with you for the next 24 hours. ? Do not drive, make important decisions, drink alcohol or operate machinery for the next 24 hours. ? Limit your activity for 48 hours after the procedure or as directed by your health care provider. MEDICATIONS: ? Resume pre-procedure medications, unless otherwise directed. ? Triamincinolone cream can be applied as needed every hour. POST-PROCEDURE: ? It is expected to have some redness on the skin where the shocks were delivered. ? Check/feel your pulse throughout the days following your procedure ? It is possible for your heart to return to an abnormal heart rhythm within hours or days after the procedure. ? Avoid or minimize caffeine and other stimulants as directed by your health care provider. ? Keep follow up appointment ? In the event you are unable to reach your oil field roustabout, please call [facility] at [phone] and the caterpillar tractor operator will assist you in contacting your physician. SEEK MEDICAL CARE IF: ? You feel like your heart is beating too fast or your pulse is not regular. ? You have any questions about your medications. ? You have bleeding that will not stop. ? You are dizzy or feel faint. ? It is hard to breathe or you feel short of breath. ? There is a change in discomfort in your chest. ? Your speech is slurred or you have trouble moving an arm or leg on one side of your body. ? You get a serious muscle cramp that does not go away. ? Your fingers or toes turn cold or blue. [facility] Progress Note-Physicianon Progress Note-Physician Patient: FREDRICK STROUD Age: 71 years Sex: Male : 1950 Associated Diagnoses: None Author: German ESCOBEDO, Christopher Bansal Impression and Plan DCC WITH PROPAFOL 70 MG AND 200 J SYNC ONCE TO NSR SAT>95 % NO NEURO CHANGES PLAN HOME ON SAME RX [facility] Comment on above: Result Comment: Elec tronically Signed By: German ESCOBEDO, Christopher Bansal\.br\Date and Time Signed: 08/02/22 13:03 EDT POCT PT/INRon 07-26-2022 POCT INR 2.7 High .7-1.2 [facility] Comment on above: Performed By: #### 2 [id number] #### [facility] [address] [place] [address] POCT PT 29.2 second(s) High 8.0-15.0 [facility] Comment on above: Performed By: #### 2 [id number] #### [facility] [address] [place] [address] POCT PT/INRon 07-19-2022 POCT INR 3.2 High .7-1.2 [facility] Comment on above: Performed By: #### 2 [id number] ####[facility] [address] [place] [address] POCT PT 34.5 second(s) High 8.0-15.0 [facility] Comment on above: Performed By: #### 2 [id number] ####[facility] [address] [place] [address] Physician Orderon 07-16-2022 Physician Order [id number] .00CD:127 [facility] POCT PT/INRon 07-12-2022 POCT INR 4.3 High .7-1.2 [facility] Comment on above: Performed By: #### 1 [id number], [id number], [id number] #### [facility] [address] [place] [address] POCT PT 45.1 second(s) High 8.0-15.0 [facility] Comment on above: Performed By: #### 1 [id number], [id number], [id number], [id number] #### [facility] [address] [place] [address] Falls Screening (Age 18+)on 07-05-2022 Fall risk assessment a) No falls within the last year [facility] [address] DO Work Phone: Tobacco use status [facility] b) [facility] Work Phone: Office Visit (Cardiology)on 07-05-2022 Follow-up visit Diagnoses/Problems Assessed Persistent atrial fibrillation (427.31) (I48.19) High risk medication use (V58.69) (Z79.899) Essential hypertension, benign (401.1) (I10) Class 2 obesity with body mass index (BMI) of 39.0 to 39.9 in adult (278.00,V85.39) (E66.9,Z68.39) Former smoker (V15.82) (Z87.891) Quit in 1976 Orders Class 2 obesity with body mass index (BMI) of 39.0 to 39.9 in adult Healthy Weight Tips; Status:Complete - Retrospective Authorization; Done: 05Jul2022 Some eating tips that can help you lose weight.; Status:Complete - Retrospective Authorization; Done: 05Jul2022 Persistent atrial fibrillation Start: Propafenone HCl ER 425 MG Oral Capsule Extended Release 12 Hour; TAKE 1 CAPSULE EVERY 12 HOURS Cardioversion; Status:Active - Retrospective Authorization; Requested for:05Jul2022; IO EKG Electrocardiogram- 12 Lead; Status:Complete; Done: 05Jul2022 SocHx: Former smoker Tobacco Use Screening; Status:Complete; Done: 05Jul2022 Patient Instructions Please bring all medicines, vitamins, and herbal supplements with you when you come to the office. Prescriptions will not be filled unless you are compliant with your follow up appointments or have a follow up appointment scheduled as per instruction of your physician. Refills should be requested at the time of your visit. Continue with Coumadin management follow up as directed. Patient to increase propafenone 425 mg twice daily Follow-up after testing completed The provider reviewed the following test(s) and result(s) with the patient: ECG Chief Complaint FREDRICK STROUD is being seen for follow up [facility] 06/11. History of Present Illness Patient returns in follow-up of problems as noted. In the interim he underwent cardioversion successfully to sinus rhythm. Unfortunately, today, he presents in atrial fibrillation again. We discussed this in great detail. He still feels that he may be somewhat impaired by the arrhythmia and he wishes yet again to try restoring and maintaining rhythm. I discussed explained and explored the matter in tremendous detail with him. I pointed out to him that its not clear to me whether maintenance of sinus rhythm will significantly improve his functional status but after discussing it further he wishes to proceed as above. Because of this we will intensify his propafenone and plan a cardioversion in several weeks. He was encouraged to call in the interim if problems or symptoms occur. At the moment we note that his blood pressure is satisfactory. As before we advocated weight loss exercise and diet as a way to improve his hypertension control but also potentially favorably impact his arrhythmia problems as well Surgical History Problems History of Complete colonoscopy History of Cyst excision History of Hernia repair History of Hip replacement History of Knee replacement History of Prostate surgery Current Meds Medication NameInstruction Biotin 5000 MCG Oral CapsuleTAKE 1 CAPSULE Daily Borage CAPSTAKE 1 CAPSULE Daily Co Q10 100 MG CAPSTAKE 1 CAPSULE Daily Elderberry CAPSTAKE 1 CAPSULE Daily Ginkgo Biloba 120 MG Oral CapsuleTAKE 1 CAPSULE Daily Lisinopril-hydroCHLOR Othiazide 10-12.5 MG Oral Tablettake 1 tablet by mouth once daily Move Free TABSTake 1 tablet daily Multi Vitamin TABSTAKE 1 TABLET DAILY. Propafenone HCl ER 325 MG Oral Capsule Extended Release 12 HourTAKE 1 CAPSULE EVERY 12 HOURS. Prostate Support TABSTAKE 1 TABLET DAILY DIRECTED. Tart Bhagat Advanced Oral CapsuleTAKE 1 CAPSULE Daily Turmeric Curcumin Oral CapsuleTAKE 1 CAPSULE Daily Vitamin B-12 100 MCG Oral TabletTAKE 1 TABLET DAILY DIRECTED. Vitamin B-6 100 MG Oral TabletTAKE 1 TABLET DAILY DIRECTED. Vitamin D3 125 MCG (5000 UT) Oral TabletTake 1 tablet daily Warfarin Sodium 2 MG Oral TabletTake as directed [place] [facility] [place] Zinc 50 MG CAPSTAKE 1 CAPSULE Daily Allergies Medication No Known Drug Allergies Recorded By: Lurdes Serrano; 03/21/2022 2:18:22 PM Social History Problems Daily caffeine consumption Two 10 oz cups of coffee Former smoker (V15.82) (Z87.891) Quit in 1976 No alcohol use No illicit drug use Review of Systems Constitutional: not feeling tired. Eyes: no eyesight problems. ENT: no hearing loss and no nosebleeds. Cardiovascular: no intermittent leg claudication and as noted in HPI. Respiratory: no chronic cough and no shortness of breath. Gastrointestinal: no change in bowel habits and no blood in stools. Genitourinary: no urinary frequency and no hematuria. Skin: no skin rashes. Neurological: no seizures and no frequent falls. Psychiatric: no depression and not suicidal. All other systems have been reviewed and are negative for complaint. Vitals Vital Signs Recorded: 05Jul2022 09:08AM Heart Rate72, Apical Sparblej312, LUE, Sitting Bansxqfxr93, LUE, Sitting Height5 ft 6 in Xbvwzw050 lb BMI Avdujncvxb83.54 kg/m2 BSA Calculated2.18 Tobacco Useb) No F (more content not included)... Normal [facility] POCT PT/INRon 06-26-2022 POCT INR See Comment Invalid Interpretation Code .7-1.2 [facility] Comment on above: Result Comment: Test ing error, please disregard previously charted results Performed By: #### 1 [id number], [id number] #### [facility] [address] [place] [address] POCT PT See Comment Invalid Interpretation Code 8.0-15.0 [facility] Comment on above: Result Comment: Test ing error, please disregard previously charted results Performed By: #### 1 [id number], [id number] #### [facility] [address] [place] [address] ECG 12 lead ECGon 06-11-2022 ECG 12 lead ECG [facility] Main [address] [address] Electrocardiograph Report Signed Patient: Fredrick Stroud MR#: [id number] 427 : 1950 Acct:[id number] Age/Sex: 71 / M ADM Date: 06/11/22 Loc: EL Room: Type: [facility] Attending Dr: Christopher Porter MD Ordering Provider: Christopher Porter MD Date of Service: 06/11/22 ECG/ECG 12 lead ECG: Pre-cardioversion rhythm assessment Copies to: Test Reason : Blood Pressure : / mmHG Vent. Rate : 065 BPM Atrial Rate : 258 BPM P-R Int : 000 ms QRS Dur : 096 ms QT Int : 418 ms P-R-T Axes : 000 003 060 degrees QTc Int : 434 ms Atrial fibrillation Low voltage QRS Incomplete right bundle branch block Cannot rule out Anterior infarct , age undetermined Abnormal ECG No previous ECGs available Confirmed by WISAM TORRE MD ([id number]) on 06/11/2022 4:50:21 PM Referred By: Christopher Porter Electronically Signed By:WISAM TORRE MD Transcribed By: MUS Signed By Wisam Torre MD 0 06/11/22 1650 Normal [facility] ECG post procedureon 023 ECG post procedure [facility] [place] [address] Electrocardiograph Report Signed Patient: Fredrick Stroud MR#: [id number] 427 : 1950 Acct:[id number] Age/Sex: 71 / M ADM Date: 06/11/22 Loc: EL Room: Type: [facility] Attending Dr: Christopher Porter MD Ordering Provider: Christopher Porter MD Date of Service: 06/11/22/ ECG/ECG post procedure: Afib Copies to: Test Reason : Blood Pressure : 134/075 mmHG Vent. Rate : 062 BPM Atrial Rate : 062 BPM P-R Int : 400 ms QRS Dur : 092 ms QT Int : 442 ms P-R-T Axes : 071 -20 054 degrees QTc Int : 448 ms Sinus rhythm with sinus arrhythmia with 1st degree AV block Low voltage QRS Incomplete right bundle branch block Cannot rule out Anterior infarct , age undetermined Abnormal ECG No previous ECGs available Confirmed by WISAM TORRE MD ([id number]) on 06/11/2022 4:50:50 PM Referred By: Christopher Porter Electronically Signed By:WISAM TORRE MD Transcribed By: MUS Signed By Wisam Torre MD 0 06/11/22 1650 Normal [facility] Electrolyteson 06-11-2022 Anion gap [Moles/Vol] 12.3 mmol/L Normal 6.0-15.0 [facility] Comment on above: Result Comment: PERF ORMED BY: [place] [id number] PATHOLOGIST ENERGY AUDITOR EYAD HOWARD M.D. Performed By: #### C BC, CMP, HS TROP, BNP #### [address] Chloride [Moles/Vol] 103 mmol/L Normal 98-107 [facility] Comment on above: Performed By: #### C BC, CMP, HS TROP, BNP #### [facility] [address] [place] [address] CO2 [Moles/Vol] 28.2 mmol/L Normal 21.0-31.0 [facility] Comment on above: Performed By: #### C BC, CMP, HS TROP, BNP #### [address] Potassium [Moles/Vol] 4.5 mmol/L Normal 3.5-5.1 [facility] Comment on above: Performed By: #### C BC, CMP, HS TROP, BNP #### [facility] [address] [place] [address] [place] Sodium [Moles/Vol] 139 mmol/L Normal 136-145 [facility] Comment on above: Performed By: #### C BC, CMP, HS TROP, BNP #### [facility] [address] [place] [address] No Panel Informationon 06-11 12.3\S\12.3 Normal 6.0-15.0 -[facility] [address] DO Work Phone: Comment on above: PERFORMED BY:[facility] [place], [place] [phone] MEDICAL DIRECTOREYAD HOWARD M.D. 28.2\S\28.2 Normal 21.0-31.0 [facility] [address] DO Work Phone: [phone] 103\S\103 Normal 98-107 [facility] [address] DO Work Phone: [phone] 4.5\S\4.5 Normal 3.5-5.1 [facility] [address] DO Work Phone: [phone] 139\S\139 Normal 136-145 [facility] DO Work Phone: POCT PT/INRon 06-07-2022 POCT INR 2.7 High .7-1.2 [facility] Comment on above: Performed By: #### 2 [id number] #### [facility] [address] [place] [address] POCT PT 28.8 second(s) High 8.0-15.0 [facility] Comment on above: Performed By: #### 2 [id number] #### [facility] [address] [place] [address] POCT PT/INRon 05-28-2022 POCT INR 2.8 High .7-1.2 [facility] Comment on above: Performed By: #### 1 [id number], [id number] #### [facility] [address] [place] [address] POCT PT 30.6 second(s) High 8.0-15.0 [facility] Comment on above: Performed By: #### 1 [id number], [id number] #### [facility] [address] [place] [address] POCT INR Error Invalid Interpretation Code .7-1.2 [facility] Comment on above: Performed By: #### 2 [id number] #### [facility] [address] [place] [address] POCT PT Strip Error Invalid Interpretation Code 8.0-15.0 [facility] Comment on above: Performed By: #### 2 [id number] #### [facility] [address] [place] [address] POCT PT/INRon 05-21-2022 POCT INR 3.1 High .7-1.2 [facility] Comment on above: Performed By: #### 1 [id number] #### [facility] [address] [facility] [address] POCT PT 33.1 second(s) High 8.0-15.0 [facility] Comment on above: Performed By: #### 1 [id number], [id number], [id number] #### [facility] [address] [place] [address] POCT PT/INRon 05-14-2022 POCT INR 3.2 High .7-1.2 [facility] Comment on above: Performed By: #### 2 [id number] ####[facility] [address] [place] [address] POCT PT 34.5 second(s) High 8.0-15.0 [facility] Comment on above: Performed By: #### 2 [id number] ####[facility] [address] [place] [address] POCT INR Error Invalid Interpretation Code .7-1.2 [facility] Comment on above: Performed By: #### 2 [id number] #### [facility] [address] [facility] [address] POCT PT Strip Error Invalid Interpretation Code 8.0-15.0 [facility] Comment on above: Performed By: #### 2 [id number] #### [facility] [address] [address] Falls Screening (Age 18+)on 05-02-2022 Fall risk assessment a) No falls within the last year -[facility] 600 DO Work Phone: Progress Note-Physicianon Progress Note-Physician Patient: FREDRICK STROUD Age: 71 years Sex: Male : 1950 Associated Diagnoses: None Author: Mae Marrero Patient is seen today for their interval coumadin assessment in the [facility]in Clinic. He is on Coumadin for Afib. He has a pmhx of afib, htn, and COPD. Pt is followed by . Denies any melena, hematochezia, hematuria, gingival bleeding, hematoma's or prolonged epistaxis. We discussed the patient's coumadin therapy today. --Indication: afib --Current coumadin pill being used: as above --Current dose of coumadin: as above --Side effects / complications of coumadin: Denies any problems with the use of coumadin -- denies any gum bleeds, nose bleeds, easy bruising, or other sequelae of coumadin toxicity. --Medication changes since last visit: none --OTC meds / herbal meds used since the last visit: none --Any change in diet since last visits, including vitamin-K rich foods: none --Compliance: no missed doses We also reviewed the patient's risk factors for bleeding using the Outpatient Bleeding Risk Index: 1. 65yo or older: yes 2. Hx of GI tract bleeding: no 3. Hx of stroke: no 4. Serious co-morbid conditions (recent AL, anemia with Hct <30%, CRI with SCr > 1.5, DM): no Score = 1/4 Risk (low = 0, mod = 1-2, high = 3-4): Health Status Allergies: Allergic Reactions (Selected) No Known Medication Allergies, Allergies (1) Active Reaction No Known Medication Allergies None Documented Current medications: (Selected) Prescriptions Prescribed MDI spacer adult: 1 EA, Inhalation, As Directed, 1 EA, Refill(s) 0 [place] 325 mg-5 mg oral tablet: 1 tab(s), Oral, q6hr for pain, 12 tab(s), Refill(s) 0 Documented Medications Documented Ventolin HFA 90 mcg/inh inhalation aerosol with adapter: = 2 puff(s), Inhalation, q6hr, PRN Wheezing/SOB hydrochlorothiazide-l isinopril 12.5 mg-10 mg Oral: 1 tab(s), Oral, Daily, Refill(s) 0, Home Medications (4) Active hydrochlorothiazide-l isinopril 12.5 mg-10 mg Oral 1 tab(s), Oral, Daily MDI spacer adult 1 EA, Inhalation, As Directed [place] 325 mg-5 mg oral tablet 1 tab(s), PRN, Oral, q6hr Ventolin HFA 90 mcg/inh inhalation aerosol with adapter 2 puff(s), PRN, Inhalation, q6hr Coumadin , No qualifying data available Problem list: All Problems HTN (hypertension) / SNOMED CT 2055745718 / Confirmed Class 3 severe obesity with body mass index (BMI) of 40.0 to 44.9 in adult / SNOMED CT 0868634517 / Confirmed Resolved: Cancer of prostate / SNOMED CT 6449257292, Active Problems (2) Class 3 severe obesity with body mass index (BMI) of 40.0 to 44.9 in adult HTN (hypertension) Objective No qualifying data available General: Alert and oriented, No acute distress. Eye: Pupils are equal, round and reactive to light. HENT: Normocephalic. Respiratory: Lungs are clear to auscultation. Cardiovascular: Normal rate, Irregularly irregular rhythm. Gastrointestinal: Soft, Non-tender, Non-distended, Normal bowel sounds. Musculoskeletal Normal range of motion. Normal strength. Integumentary: Warm, Dry. Neurologic: Alert, Oriented, Normal sensory, Normal motor function. Psychiatric: Cooperative, Appropriate mood & affect. Impression and Plan Patient is seen today for their interval coumadin assessment in the [facility]madin Clinic. He is on Coumadin for Afib. He has a pmhx of afib, htn, and COPD. Pt is followed by . Denies any melena, hematochezia, hematuria, gingival bleeding, hematoma's or prolonged epistaxis. We discussed the patient's coumadin therapy today. --Indication: afib --Current coumadin pill being used: as above --Current dose of coumadin: as above --Side effects / complications of coumadin: Denies any problems with the use of coumadin -- denies any gum bleeds, nose bleeds, easy bruising, or other sequelae of coumadin toxicity. --Medication changes since last visit: none --OTC meds / herbal meds used since the last visit: none --Any change in diet since last visits, including vitamin-K rich foods: none --Compliance: no missed doses We also reviewed the patient's risk factors for bleeding using the Outpatient Bleeding Risk Index: 1. 65yo or older: yes 2. Hx of GI tract bleeding: no 3. Hx of stroke: no 4. Serious co-morbid conditions (recent AL, anemia with Hct <30%, CRI with SCr > 1.5, DM): no Score = 1/4 Risk (low = 0, mod = 1-2, high = 3-4): [facility] Comment on above: Result Comment: Elec tronically Signed By: Rain ORDOÑEZ, Mae\.br\Date and Time Signed: 04/30/22 14:01 EST Office Visit (Cardiology)on 04-29-2022 Follow-up visit Diagnoses/Problems Assessed Persistent atrial fibrillation (427.31) (I48.19) High risk medication use (V58.69) (Z79.899) Essential hypertension, benign (401.1) (I10) Former smoker (V15.82) (Z87.891) Quit in 1976 Morbid obesity with BMI of 40.0-44.9, adult (278.01,V85.41) (E66.01,Z68.41) Orders Morbid obesity with BMI of 40.0-44.9, adult Healthy Weight Tips; Status:Complete; Done: 29Apr2022 Some eating tips that can help you lose weight.; Status:Complete; Done: 29Apr2022 Persistent atrial fibrillation Start: Propafenone HCl ER 225 MG Oral Capsule Extended Release 12 Hour; TAKE 1 CAPSULE EVERY 12 HOURS IO EKG Electrocardiogram- 12 Lead; Status:Complete; Done: 29Apr2022 SocHx: Former smoker Tobacco Use Screening; Status:Complete; Done: 29Apr2022 Patient Instructions Please bring all medicines, vitamins, and herbal supplements with you when you come to the office. Prescriptions will not be filled unless you are compliant with your follow up appointments or have a follow up appointment scheduled as per instruction of your physician. Refills should be requested at the time of your visit. Continue with Coumadin management follow up as directed. EKG in 3 days after start of Propafenone Follow up in 1 months Chief Complaint FREDRICK STROUD is being seen for a 2 month follow-up of. History of Present Illness Returns in follow-up of problems as noted. In the interim he was switched to warfarin therapy and has been managed by the [facility] Coumadin clinic. He says he is therapeutic and we will take him at his word. We discussed again whether or not we should embark on an effort to restore rhythm after doing so in great detail and his expressed a desire to implement antiarrhythmic therapy to restore rhythm. We discussed options and ultimately elected propafenone. A follow-up EKG will be done today and dosage adjustment made if he is still out of rhythm. If he converts we will continue as is. I suggested that over the course of the next month we in 1 way shape or form restore rhythm either by higher doses of medicine or cardioversion and clinically reassess in about a month. Advised him and his that if there is no acute change in functional status following restoring rhythm we would deem maintaining rhythm relatively worthless and abandon antiarrhythmic therapies. They appear to understand and agree to the plan. They were also educated regarding signs and symptoms and/or side effects to watch for associated with propafenone therapy. They will call if they occur but otherwise we will proceed as noted Surgical History Problems History of Complete colonoscopy History of Cyst excision History of Hernia repair History of Hip replacement History of Knee replacement History of Prostate surgery Current Meds Medication NameInstruction Biotin 5000 MCG Oral CapsuleTAKE 1 CAPSULE Daily Borage CAPSTAKE 1 CAPSULE Daily Co Q10 100 MG CAPSTAKE 1 CAPSULE Daily Elderberry CAPSTAKE 1 CAPSULE Daily Ginkgo Biloba 120 MG Oral CapsuleTAKE 1 CAPSULE Daily Lisinopril-hydroCHLOR Othiazide 10-12.5 MG Oral Tablettake 1 tablet by mouth once daily Move Free TABSTake 1 tablet daily Multi Vitamin TABSTAKE 1 TABLET DAILY. Prostate Support TABSTAKE 1 TABLET DAILY DIRECTED. Turmeric Curcumin Oral CapsuleTAKE 1 CAPSULE Daily Vitamin B-12 100 MCG Oral TabletTAKE 1 TABLET DAILY DIRECTED. Vitamin B-6 100 MG Oral TabletTAKE 1 TABLET DAILY DIRECTED. Vitamin D3 125 MCG (5000 UT) Oral TabletTake 1 tablet daily Warfarin Sodium 2 MG Oral TabletTAKE 1 TABLET DAILY DIRECTED. Zinc 50 MG CAPSTAKE 1 CAPSULE Daily Allergies Unassigned No Known Drug Allergies Recorded By: Lurdes Serrano; 03/21/2022 2:18:22 PM Family History Mother Family history of congestive heart failure (V17.49) (Z82.49) Social History Problems Daily caffeine consumption Two 10 oz cups of coffee Former smoker (V15.82) (Z87.891) Quit in 1976 No alcohol use No illicit drug use Review of Systems Constitutional: not feeling tired. Eyes: no eyesight problems. ENT: no hearing loss and no nosebleeds. Cardiovascular: no intermittent leg claudication and as noted in HPI. Respiratory: no chronic cough and no shortness of breath. Gastrointestinal: no change in bowel habits and no blood in stools. Genitourinary: no urinary frequency and no hematuria. Skin: no skin rashes. Neurological: no seizures and no frequent falls. Psychiatric: no depression and not suicidal. All other systems have been reviewed and are negative for complaint. Vitals Vital Signs Recorded: 29Apr2022 11:48AM Heart Rate60, R Radial Wbhtkifq167 Zyfiwkfuq57 Height5 ft 6 in Xruiwo636 lb 6 oz BMI Ussutzpnpx43.09 kg/m2 BSA Calculated2.19 Tobacco Useb) No Falls Screening (Age 18+)a) No falls within the last year Physical Exam Constitutional: alert and in no acute distress. Eyes: no erythema, swelling or discharge from the eye . Neck: neck i (more content not included)... [facility] Tobacco Screening.on 023 Fall risk assessment a) No falls within the last year [facility] 600 DO Work Phone: Tobacco use status [facility] b) No [facility] 600 DO Work Phone: POCT PT/INRon 04-19-2022 POCT INR 1.7 High .7-1.2 [facility] Comment on above: Performed By: #### 1 [id number], [id number], [id number] #### [facility] [address] [place] [address] POCT PT 19.1 second(s) High 8.0-15.0 [facility] Comment on above: Performed By: #### 1 [id number], [id number], [id number], [id number] #### [facility] [address] [place] [address] Coding Summary.on 04-08-2022 Coding Summary. CD:[id number] G h0bWw+PGhlYWQ+RS4IJJS iL32ckQJljP5YV1aADA7B LDCBROQAOQ4VPP6wtVL8I PwpW5VmkkDi FumsyBSfZA23VJn0RVP1g SoxXJzbqN1uoKNkX5x2Pd HuDB14jV86LVshKQPcOwN 3LjZpbjsgbWFy V3tlMfNiiIDrCmv+PHRhY mxlIHdpZHRoPScxMDAlJy GmtMalRD4mFi4lABOiMFR vbGxhcHNlOiBj f3jlSCOxSZxaCU8kgPurW 9DjiLS8QTCrz5r9Rt08cP I+QAEnPRS0eVfoDUfvl97 6BhKnd2xsCFF0 yZNbSUdvCSC0U50ab1H3B MKpADCyPNJ7tCS5nS9jxX hgjwnqS8LrhLZaBgX2RYR 8oJDutI5uxAfl tqccwC2jKbj+A18TOM3II LDHUS6ILfl4C1YwZxpgaQ I+SB96DUFaHP33cICajDE aq1eywAi3KjVp WJKwYEU5tIklFUljm9VqQ MEdT78jbYLep0Z6RMMvgZ yzuEFxVdOlnGL0qI9pSCh hhxbod6nkatxa Umzpe1benc97jQ38Q63qE TxcJBGlJAR0IOKqPWCseU eeqh1exE0uJu4+SZwmy3u uq5uouHk0MmMm RFLmyjNmzJiiKGT1o9SbY e85L8ZxiJkhg1AdMmr6tj 68zNSgk8U4nHS3EXieKPT qmG0mGNmeQcJ3 ALBpYgWrdE75cJBvOChqW m5yjKwjwMmlNV3tVFDzuh rlNLIciW2vJYNqgNWepSx iNT1mOHRirzsw v465AqXsSWS4NQVgeVJyC 3TqyD6vVpNzYHFnSCDoA3 RmlBQlEJzgF958DProThR 1DOFmqrFwB1Hg SHNsfAfnBvV1b6E6Lt0Ze 3FdoyuwOGD1IZgbMGMwFo RgVyKzLeP8L2JpEew0CFY idEwyMH0pC3Cd QNBdkrlarnwzqEY1HUYgY DOdnN18fBVqNTihQo4re2 J7m643OUKeORIkwV02Qm9 udDogMTBwdCBU rJ0wisnkj4niobgpDxNiZ IObWLj5QIi7HYJksKdzQw GjYVF4XvM6HFW9dJVrhW9 ueWzhxfutmN7d Oyc+G74vcI9jDCD4FWC5s vhsJIAayuRpRY24HC32A8 RyPjwvdGFibGU+PGRpdiB suUsvLE5eEsPi p6lry4WvVPhdP9HkTLAoJ SodGcg7LGCoCJR2vOJ5yN 0uDVCzRXnfe9U8lGZ0A9H lhdSnxi5rr4tr LSOzAJitS53rwJNqv0V1J KByiZW1ZRMkxHzvEaUhbQ 93Oyc+JNRldMfbp0ZhQfo vt8fhs1eqiAj5 NpYdTXUiazNerBthWBJ8v 3IaMv50N70nIRqeYVUqSA RiJGMuNONhdRpyhc5lsO7 wIi8+PGNvbCB3 gEG7pF1aRSDbVyJ7VRnpN 480ZwBfhTYwDzscb5epk0 cxkXf1GpFrXHXiolRbbUw vYVH4s0NhLs43 C82eLDgmNECkKUJmHABjS PNypExuzb2ezH6sLx3+PC 7tk9mrge25wS27xVZ+PHR zWOZ6mFdfQPbd NJQlvT0dQLgpKsW1MCMvN nMatX04qDHaHCgvUg4xvH rgaYrxVS7wJREznrfpz21 4SbJri6eeWJIe dLCtIGjmBYH7X70us8O3D OTkQBJaUPQ6yYZ7qN0wuM lnbjogbGVmdDsgdmVydGl dWQkoSTazL389 IHRvcDsnPlBhdGllbnQgT gJuJOz6X9BpPdr5ZRSixI guEC4hjDVcUOqbUd6boRa evSniHE2dILJn oseni170ItOvs5hhJSPas XVkSFapKLO5O37xl1I8NE BlDJZoPWM7pIR2yR3hiZo nbjogbGVmdDsg dwKwzKpsXDxzDTckL491B HRvcDsnPkJpcnRoIERhdG C1BB80BM56aRBvn8G5cGP 8T5VmLLXkshbj cbbiaIP8KNWpGDGrpA22A i6wlBddEe2aYWLiNTP3FN UtmYRhE8SwiJ0uIuVlSFY fKYJyX1BxvNPx CBpuO986PLzzAnI4OQAwy cHqF1QpXONvqDzkTiX5u9 Z1Ey9CM1F1VU00CA69rIN jn4I4xOD4P2Cy GBPcxuvtncrfzFD4EIAoQ HOocF49Iu1qoYdcHx0nZU CmLXG7TNTahOKpD2SqmE1 yOiAjMDAwMDAw K7OxbEPnMTwtM946TCotW xH1SOKmpjBlL9AfOZSxhG ygBiA7l6S3Lg1MUWd5KJ2 4KJ84rDSgr9A7 zJT9V4VrCYYmdqipdysse PG6YXKeEKLsgO01Oi0vpL cpKe6uBUNhQBS1VIItiWI wL7NshR2aDbKl NSXoUVXoI9EdhXRsZYofI 661ALhlMsU5HSMsmnUcE8 TgEIPmpDipQzM9l2X3Jx9 OBGNsWD83JER0 fFT2TA63JB87G6NoCkulb GFibGU+PHRhYmxlIHdpZH RoPScxMDAlJyBzdHlsZT0 oLt2lQLQlCFKr uJtafERbUeYcr5eyJOEsI KsiEG2geCssF3VfzNL5HO Vut5p4Gl04Z44uP1NlqGY +LLUzvXV1hNP9 cX7cNcJpEoU6TQimK928S fEjzLCvIuvwn8pjg8tqbX y4QzB2GODzraXmuBqgOCT 0p9UsVt72S92p IHdpZHRoPSIxNSUiIHZhb Bbkuy9cqL0kYn5+PGNvbC B8fFV8yW7yKfMoIhR6FQx dK985MtWjhMIf Xxcsd5yqy7oniXe2OmXuX WRnlkKoqVijUHW5e3FvWc 03V9YryNijr4LyJnx2iv3 8qWJdj4K8gRN5 D9WlXFZardtynCDidYeoK T7nDBQxisgbRVWzkH7wLV ZgU9f5QjUhKqT5CBsnV5B gclM5ZGAuiVUg CKjeOQL1W06nm8H0BFEuI OSgAVL5oAL9pS9weWlcvw ogbGVmdDsgdmVydGljYWw zRQafU160QUMi vZklIFHrtC3gEPZiiVEvx NpeHM9sESBwzgmhMeDKAg GDQLxvHSQDZgdZHJq2S6I rZvw8PHSuyGrv FA0oaVZqYOkyMv6lxKqpg KvjHH3vVESbvkzaEJXvqK 2jEAUvwSOrzAgfCX5uYTQ mbsyvd425PyZh AVI8WLPcjSMnG7TkoW5kZ bRpQIPcLRMxO6MgbWVwLV inU048OUftTcK2RISkkbM rI4FwFQAsiFfd VaE6z1Q4Bq9hHT5kKU8hW IC0SH70DA18bWBec2L3pS I6M5UpRBGpraqbpfpjuAA 5MVKeGWAakX23 kTRiDBnoCu9kv1B5v597D QDvFUFewC14Qs9ipLfqAA SjfGYSlW8qazaft5bxtjs gIzAwMDAwMDt0 YLr8WMAiqErfKfYhLTM6Q hG0WDR3kUBgyM9riMvukd utqN8eDwr+NzMgWWVhcnM 2I4NkNas2TBLl dBuoGS6kpMSdTOxtNs2ui CddsVhzQE7kWEGrcihnAL UbaW0oPYLwjSEhzRwfWN3 pIPItwbgnx769 CfLbHYP4UKXgfXIbC4Htt M7bHvTuDIQcVFRmI5NzrX DqGMtuD329YLbpIjG1DOX lpeLrH8SxVAOn yTdfMuU2p3S6Yr8JZYopW J36DX89pQRug1I8gGP4S5 ByROHrnzyjuqqugIY1MVG bKTVimO91aXNg NZtpUv1eu6L5a680HXRzF TRyxR20Ti6wgZwaBAFbvO VPhP4igyqkb9ueidyrKrB qEKBkUFx6WAx3 AOJtlBarFeGoCBP6ZiL6S NE4eWWytV6pcWvjsimhzD 9wOyc+TtQekBOnhM0tET1 2ZU00P5DaTxwc dGFibGU+PHRhYmxlIHdpZ HRoPScxMDAlJyBzdHlsZT 8jVa6eUXQgGKQisDvzdAQ wSkVvo7gfGIYg WXhgBW8qxNigL3MqxGL0Q WUpn2t9Ho02R20dO2BgvW A+FYAhlZC5gHY7nJ5wZgE eSlN4OEseF136 XtJagGXiAlusb2dcr9apd Zg4LnMcEPQslaTpmVnyBX X2e4CnQa53C93lLWkhQXR oPSIyMCUiIHZh cKsakb0chB6lCr4+PGNvb XJ5fMP3mW1nClScKiE7IH chX894DgEwwGKcVwifV75 dF4CmxDS+PHRy Rmq8BRFfsQzaFC1iaRSjC JjdDr9cBPX3WnWkQwYrZO mfT1AqQTIgmuumfjkujDS 7SZYaCUQqqQ88 Oe1byEbpQd9aSRTqMCG9O ZXzkADdY9JqqT8bQcUdEC NgLLRmT3JkbDAqMAzvK02 3KVcbDdY4MRDk iqPgI3TaDNXgfGigGdL8d 4G4Bz8HhYqbkKQtEI2bGo OvXHp5I4NrXsb9DKDwwJt rSU0yuOFpVCdy Va3pnObchLmfNO4bCXOrk emvk697DrWjk1fuHEQqmA LxFOeiEQG8R70cz4X4RTC tCXAmSPD2gEM3 zL0rsZtyezuupBZkeCwbk eRgaPqmMYmzISrzO736HC YxaHgtErYOLqt3S3TwGth 3RKPseMsdSU6v fOPiGIbyZr5xpYkcrOveI C1qEHYazxogk299GjUag5 vwXVEduRXjWXlhVPD2S83 lc0F0INSiOKWm CSD6nWS6mX7wnHpkbxcwc GVmdDsgdmVydGljYWwtYW hxN413JVNpbPuaBi4KAnr 3X1SfUts9NGQi jGduDS9voXVpVSwrJh7bg KgnwQurCO5fCDCslzans7 18DnWge2xmHTAxtLBjUIy iZTE1V74mp6G1 OXMqTFLkRDX6eBQ1uF0bp GlnbjogbGVmdDsgdmVydG lrBIfzCKknE640BVGqjOn nPlBheWVyOjwv dGQ+AU83wc17F6TsHbbtM kh9DSAvPMA2eDC6bM1mBA DxDSucw1L5zTE3L7FqlcC mge0xr1mfVYOc ZTog (more content not included)... [facility] POCT PT/INRon 04-05-2022 POCT INR 1.3 High .7-1.2 [facility] Comment on above: Performed By: #### 2 [id number] #### [facility] [address] [place] [address] POCT PT 15.0 second(s) Normal 8.0-15.0 [facility] Comment on above: Performed By: #### 2 [id number] #### [facility] [address] [place] [address] POCT INR Error Invalid Interpretation Code .-.2 [facility] Comment on above: Performed By: #### 1 [id number] #### [facility] [address] [place] [address] POCT PT Strip Error Invalid Interpretation Code 8.0-15.0 [facility] Comment on above: Performed By: #### 1 [id number] #### [facility] [address] [place] [address] POCT INR Error Invalid Interpretation Code .-.2 [facility] Comment on above: Performed By: #### 1 [id number] #### [facility] [address] [place] [address] POCT PT Strip Error Invalid Interpretation Code 8.0-15.0 [facility] Comment on above: Performed By: #### 1 [id number] #### [facility] [address] [place] [address] Physician Orderon 04-01-2022 Physician Order [id number]# 1.00CD:127 [facility] Consent for Treatmenton Consent for Treatment [id number]#1 .00CD:127 [facility] POCT PT/INRon 03-29-2022 POCT INR 1.3 High .7-1.2 [facility] Comment on above: Performed By: #### 2 [id number] #### [facility] [address] [place] [address] POCT PT 14.2 second(s) Normal 8.0-15.0 [facility] Comment on above: Performed By: #### 2 [id number] #### [facility] [address] [place] [address] [facility] echo transthoracicon [facility] echo transthoracic [facility] [place] [address] Echocardiogram Signed Patient: Fredrick Stroud MR#: [id number] : 1950 Acct:[id number] Age/Sex: 71 / M ADM Date: 03/27/22 Loc: Room: Type: [facility] Attending Dr: Sejal Link DIRECTOR OF CRITICAL CARE-C Ordering Provider: Sejal Link APRN Date of Service: 03/27/22/ ECH/ECH echo transthoracic: Afib. SOB. HTN. Copies to: LUCY Hankins MD, [facility] BSA: 2.2 m2 BP: 125/82 mmHg HR: 82 Reason For Study: Afib. SOB. HTN. History: HTN. Former Smoker. Family history: Mother-CHF. Interpretation Summary Mild concentric left ventricular hypertrophy. Ejection Fraction = 55-60%. The patient was in atrial fibrillation through out the study. There is no prior echocardiogram noted for this patient. Procedure/Quality: A two-dimensional transthoracic echocardiogram with color flow, Doppler and injection of contrast agent Definity was performed. The study was technically good in quality. There is no prior echocardiogram noted for this patient. Left Ventricle: Mild concentric left ventricular hypertrophy. Left ventricular systolic function is normal. Ejection Fraction = 55-60%. Left Atrium: The left atrium appears normal in size. The atrial septum appears normal. Right Atrium: The right atrium appears normal in size. Right Ventricle: The right ventricular size, thickness and function are normal. Aortic Valve: The aortic valve is mildly sclerotic. Mitral Valve: The mitral valve is mildly sclerotic. Tricuspid Valve: The tricuspid valve is normal. There is trace tricuspid regurgitation. Pulmonic Valve: The pulmonic valve is not well visualized. Arteries: The aortic root is normal size. Pericardium/Pleura: No pericardial effusion seen. There is no pleural effusion. IVC/Hepatic Viens: The IVC is normal in size with an inspiratory collapse of greater then 50%, suggesting normal right atrial pressure. Miscellaneous: No thrombus, vegetation or mass is seen. The patient was in atrial fibrillation through out the study. Measurements with Normals IVSd: 1.5 cm (0.7-1.1 cm)LVIDd: 3.9 cm (3.7-5.4 cm) LVPWd: 1.4 cm (0.7-1.1 cm)LVIDs: 2.9 cm (2.3-3.6 cm) LA dimension: 3.7 cm (2.3-4.0 cm)Ao root diam: 3.4 cm(2.0-3.6 cm) asc Aorta Diam: 3.6 cm(2.1-3.4cm) Doppler with Normals LV V1 max: 90.8 cm/sec(0.7-1.7m/s)MV E max abby: 86.5 cm/sec(0.8-1.3m/s) MMode/2D Measurements Calculations RV S Abby: FS: 27.0 % Ao root area: LVOT diam: 2.4 cm 11.4 cm/sec EDV(Teich): 9.1 cm2 LVOT area: 4.4 cm2 66.6 ml ESV(Teich): 31.1 ml EF(Teich): 53.2 % __ LVLd ap4: 7.8 cm SV(MOD-sp4): LAV(MOD-sp4): LA A2 area: 16.1 cm2 EDV(MOD-sp4): 62.5 ml 46.1 ml 96.0 ml LAV(MOD-sp2): LA A4 area: 19.9 cm2 LVLs ap4: 6.1 cm 35.0 ml LA length (vol): ESV(MOD-sp4): 6.9 cm 33.5 ml LA vol: 39.7 ml EF(MOD-sp4): 65.1 % LA vol index: 17.9 ml/m2 Doppler Measurements Calculations MV dec time: MV dec slope: Ao V2 max: LV V1 max P.21 sec 134.2 cm/sec 3.3 mmHg 409.7 cm/sec2 Ao max P.2 mmHg LV V1 mean PG: Ao mean P.2 mmHg 4.4 mmHg LV V1 mean: Ao V2 mean: 71.5 cm/sec 100.7 cm/sec LV V1 VTI: 16.2 cm Ao V2 VTI: 21.5 cm DAVDI(I,D): 3.3 cm2 DAVID(V,D): 3.0 cm2 __ TV max PG: TR max abby: 22.0 mmHg 234.6 cm/sec TR max P.0 mmHg Transcribed By: SCV Performed At: 03/27/22 0690 Signed By: Love Gaviria MD, FACC 03/27/22 0983 [facility] Free T4 (Free Thyroxine)on 0 03-27-2022 Free T4 [Mass/Vol] 1.01 ng/dL Normal 0.61-1.12 [facility] Comment on above: Order Comment: Reaso n for Exam Atrial fibrillation;Essential hypertension Performed By: #### C BC, CMP, HS TROP, BNP #### [address] TSH DL <= 0.005 mIU/L QnOrde red By: Sejal Link on 03-27-2022 TSH Qn 2.57 m[IU]/L 0.45-5.33 [facility] Thyroid Stimulating Hormoneo n 03-27-2022 TSH Qn 2.57 m[IU]/L Normal 0.45-5.33 [facility] Comment on above: Order Comment: Reaso n for Exam Atrial fibrillation;Essential hypertension Result Comment: PERF ORMED BY: [place] [address] PATHOLOGIST ENERGY AUDITOR EYAD HOWARD M.D. Performed By: #### C BC, CMP, HS TROP, BNP #### [address] Thyroxine (T4) free [Mass/vo lume] in Serum or PlasmaOrdered By: Sejal Likn on 03-27-2022 Free T4 [Mass/Vol] 1.01 ng/dL 0.61-1.12 [facility] Triiodothyronine (T3) Freeon 03-27-2022 Triiodothyronine (T3) Free 3.17 pg/mL Normal 2.50-3.90 [facility] Comment on above: Order Comment: Reaso n for Exam Atrial fibrillation;Essential hypertension Result Comment: PERF ORMED BY: [place] [address] PATHOLOGIST ENERGY AUDITOR EYAD HOWARD M.D. Performed By: #### C BC, CMP, HS TROP, BNP #### [address] Triiodothyronine (T3) Free [ Mass/volume] in Serum or PlasmaOrdered By: Sejal Link on 03-27-2022 Free T3 [Mass/Vol] 3.17 pg/mL 2.50-3.90 [facility] Office Visit (Cardiology)on 03-21-2022 Follow-up visit Diagnoses/Problems Assessed Essential hypertension, benign (401.1) (I10) Persistent atrial fibrillation (427.31) (I48.19) Morbid obesity with BMI of 40.0-44.9, adult (278.01,V85.41) (E66.01,Z68.41) High risk medication use (V58.69) (Z79.899) Orders High risk medication use, Persistent atrial fibrillation Start: Warfarin Sodium 2 MG Oral Tablet; TAKE 1 TABLET DAILY DIRECTED PT/INR; Status:Active; Requested for:28Mar2022; Morbid obesity with BMI of 40.0-44.9, adult Healthy Weight Tips; Status:Complete; Done: 21Mar2022 Some eating tips that can help you lose weight.; Status:Complete; Done: 21Mar2022 Persistent atrial fibrillation IO EKG Electrocardiogram- 12 Lead; Status:Complete; Done: 21Mar2022 Unlinked Stop: Aspirin 81 MG Oral Tablet Delayed Release Patient Instructions Please bring all medicines, vitamins, and herbal supplements with you when you come to the office. Prescriptions will not be filled unless you are compliant with your follow up appointments or have a follow up appointment scheduled as per instruction of your physician. Refills should be requested at the time of your visit. discussed in-depth treatment for AFIB Coumadin 2mg daily, check INR one week after start. Goal 2.0-3.0. [place] [facility] [place] Follow up in 2 months The provider reviewed the following test(s) and result(s) with the patient: ECG Chief Complaint FREDRICK STROUD is being seen for Rebecca Lacey. History of Present Illness Patient is seen for the first time at the request of his primary care physician. He was recently found to be in atrial fibrillation. This was prompted by an emergency room visit and subsequently saw primary care. They attempted to implement anticoagulant therapy but it was too expensive and because of this he is not on it. Review of records demonstrates he was seen about 6 months ago also with a paroxysm of atrial fibrillation because of this we believe it has been a problem off and on for a while. He is not very symptomatic and we discussed options which include rate control with anticoagulation versus moravian of maintenance of sinus rhythm. After discussing them in detail he wishes to attempt restoring maintenance of rhythm. Because of this we recommend anticoagulant therapy for 6 to 8 weeks with warfarin. Thereafter we will embark on an effort to restore rhythm. The rationale for this plan of care and timing was explained and he is understanding of the risks associated with a rash to attempt to restore rhythm. Because of all the above we will proceed as noted I will plan to see him at 6 to 8 weeks. At that time we will implement therapy. He does not have resting bradycardia in atrial fibrillation because of this I believe sotalol therapy will be problematic. This may necessitate hospitalization for flecainide or Tikosyn, or, amiodarone. We will discuss that at a later date. Surgical History Problems History of Complete colonoscopy History of Cyst excision History of Hernia repair History of Hip replacement History of Knee replacement History of Prostate surgery Current Meds Medication NameInstruction Aspirin 81 MG Oral Tablet Delayed ReleaseTake 1 tablet twice daily Biotin 5000 MCG Oral CapsuleTAKE 1 CAPSULE Daily Borage CAPSTAKE 1 CAPSULE Daily Co Q10 100 MG CAPSTAKE 1 CAPSULE Daily Elderberry CAPSTAKE 1 CAPSULE Daily Ginkgo Biloba 120 MG Oral CapsuleTAKE 1 CAPSULE Daily Lisinopril-hydroCHLOR Othiazide 10-12.5 MG Oral Tablettake 1 tablet by mouth once daily Move Free TABSTake 1 tablet daily Multi Vitamin TABSTAKE 1 TABLET DAILY. Prostate Support TABSTAKE 1 TABLET DAILY DIRECTED. Turmeric Curcumin Oral CapsuleTAKE 1 CAPSULE Daily Vitamin B-12 100 MCG Oral TabletTAKE 1 TABLET DAILY DIRECTED. Vitamin B-6 100 MG Oral TabletTAKE 1 TABLET DAILY DIRECTED. Vitamin D3 125 MCG (5000 UT) Oral TabletTake 1 tablet daily Zinc 50 MG CAPSTAKE 1 CAPSULE Daily Allergies Medication No Known Drug Allergies Recorded By: Lurdes Serrano; 03/21/2022 2:18:22 PM Social History Problems Daily caffeine consumption Two 10 oz cups of coffee Former smoker (V15.82) (Z87.891) Quit in 1976 No alcohol use No illicit drug use Review of Systems Constitutional: not feeling tired. Eyes: no eyesight problems. ENT: no hearing loss and no nosebleeds. Cardiovascular: no intermittent leg claudication and as noted in HPI. Respiratory: no chronic cough and no shortness of breath. Gastrointestinal: no change in bowel habits and no blood in stools. Genitourinary: no urinary frequency and no hematuria. Skin: no skin rashes. Neurological: no seizures and no frequent falls. Psychiatric: no depression and not suicidal. All other systems have been reviewed and are negative for complaint. Vitals Vital Signs Recorded: 21Mar2022 02:26PM Heart Rate67, Apical Nixxgawn797, RUE, Fkwahbs220, LUE, Sitting Umwaqyxqi03, RUE, Tjrubme50, LUE, Sitting He (more content not included)... Normal [facility] Albumin [Mass/volume] in Ser um or PlasmaOrdered By: Yo Blood on 03-11-2022 Albumin [Mass/Vol] 4.1 g/dL 3.2-5.5 [facility] B-Type Natriuretic Peptideon 03-11-2022 Natriuretic peptide B (Bld) [Mass/Vol] 101.0 pg/mL High 5-100 [facility] Comment on above: Result Comment: PERF ORMED BY: [place] [address] PATHOLOGIST ENERGY AUDITOR EYAD HOWARD M.D. Performed By: #### C BC, CMP, HS TROP, BNP #### [address] Basophils Auto (Bld) [#/Vol] Ordered By: Yo Blood on 03-11-2022 Basophils (Bld) [#/Vol] 0.0 10*3/uL 0.0-0.2 [facility] Basophils/100 WBC Auto (Bld) Ordered By: Yo Blood on 03-11-2022 Basophils/100 WBC (Bld) 1.1 % . [facility] COVID-19 Antigenon 3 COVID-19 Antigen Healthcare Worker?: N Reference Range: Negative Negative results, from patients with symptom onset beyond five days, should be treated as presumptive and confirmation with a molecular assay, if necessary, for patient management, may be performed. Negative results do not rule out COVID-19 and should not be used as the sole basis for treatment or patient management decisions, including infection control decisions. Negative results should be considered in the context of a patient's recent exposures, history and the presence of clinical signs and symptoms consistent with COVID-19. The Gertrude SARS Antigen OLY does not differentiate between SARS-CoV and SARS-CoV-2. This test was developed and its performance characteristic determined by [employer] and validated at [facility]. This test has not been FDA cleared or approved. This test has been authorized by FDA under an Emergency Use Authorization (EUA). This test has been validated in accordance with the FDA's Guidance Document (Policy for Diagnostics Testing in Laboratories Certified to Perform High Complexity Testing under CLIA prior to Emergency Use Authorization for Coronavirus Disease-2019 during the Public Health Emergency) issued on May 27, 2019. This test is only authorized for the duration of time the declaration that circumstances exist justifying the authorization of the emergency use of in vitro diagnostic tests for detection of SARS-CoV-2 virus and/or diagnosis of COVID-19 infection under section 564(b)(1) of the Act, 21 U.S.C. 360bbb-3(b)(1), unless the authorization is terminated or revoked sooner. SARS-CoV+SARS-CoV-2 (COVID-19) Ag [Presence] in Respiratory specimen by Rapid immunoassay Negative for SARS Antigen by OLY PERFORMED BY: [place] [address] PATHOLOGIST ENERGY AUDITOR EYAD HOWARD M.D. Normal [facility] Comment on above: Performed By: #### C OVID-19 GERTRUDE, SOFIANEG #### [address] COVID-19 SOFIAOrdered By: Buster Blood on 03-11-2022 SARS-CoV+SARS-CoV-2 (COVID-19) Ag IA.rapid Ql (Resp) Negative Negative [facility] Comment on above: This is a duplicate Gertrude SARS Antigen (OLY) result to be used for statistical tracking purpose only. Complete Blood Count Auto Di ffon 03-11-2022 Basophils (Bld) [#/Vol] 0.0 10*3/uL Normal 0.0-0.2 [facility] Comment on above: Result Comment: PERF ORMED BY: [facility] [address] [place] [address] PATHOLOGIST ENERGY AUDITOR EYAD HOWARD M.D. Performed By: #### C BC, CMP, HS TROP, BNP #### [address] Basophils/100 WBC (Bld) 1.1 % Normal . [facility] Comment on above: Performed By: #### C BC, CMP, HS TROP, BNP #### [address] Eosinophils (Bld) [#/Vol] 0.0 10*3/uL Normal 0.0-0.45 [facility] Comment on above: Performed By: #### C BC, CMP, HS TROP, BNP #### [address] Eosinophils/100 WBC (Bld) 0.4 % Normal . [facility] Comment on above: Performed By: #### C BC, CMP, HS TROP, BNP #### [address] Erythrocyte distribution width (RBC) [Ratio] 14.0 % Normal 12.0-14.8 [facility] Comment on above: Performed By: #### C BC, CMP, HS TROP, BNP #### [address] Hematocrit (Bld) [Volume fraction] 46.7 % Normal 38.8-50.0 [facility] Comment on above: Performed By: #### C BC, CMP, HS TROP, BNP #### [address] Hemoglobin (Bld) [Mass/Vol] 15.3 g/dL Normal 13.0-17.0 [facility] Comment on above: Performed By: #### C BC, CMP, HS TROP, BNP #### [address] Lymphocytes (Bld) [#/Vol] 1.1 10*3/uL Normal 1.00-4.8 [facility] Comment on above: Performed By: #### C BC, CMP, HS TROP, BNP #### [place] [address] [place] Lymphocytes/100 WBC (Bld) 29.0 % Normal . [facility] Comment on above: Performed By: #### C BC, CMP, HS TROP, BNP #### [address] MCH (RBC) [Entitic mass] 29.4 pg Normal 27.5-35.2 [facility] Comment on above: Performed By: #### C BC, CMP, HS TROP, BNP #### [address] MCV (RBC) [Entitic vol] 89.6 fL Normal 83.5-101 [facility] Comment on above: Performed By: #### C BC, CMP, HS TROP, BNP #### [address] Mean Corpuscular HGB Conc 32.8 g/dL Normal 32.5-35.6 [facility] Comment on above: Performed By: #### C BC, CMP, HS TROP, BNP #### [place] [address] [place] Monocytes (Bld) [#/Vol] 0.8 10*3/uL Normal 0.0-0.8 [facility] Comment on above: Performed By: #### C BC, CMP, HS TROP, BNP #### [place] [address] [place] Monocytes/100 WBC (Bld) 20.67 % High 0.00-20.00 [facility] Comment on above: Result Comment: For adults in ED, MDW > 20.0 may be associated with a higher risk of sepsis during the first 12 hrs of hospital admission Performed By: #### C BC, CMP, HS TROP, BNP #### [place] [address] [place] Monocytes/100 WBC (Bld) 20.9 % Normal . [facility] Comment on above: Performed By: #### C BC, CMP, HS TROP, BNP #### [address] [place] [address] [place] Neutrophils (Bld) [#/Vol] 1.8 10*3/uL Normal 1.8-7.7 [facility] Comment on above: Performed By: #### C BC, CMP, HS TROP, BNP #### [facility] [address] Neutrophils/100 WBC (Bld) 48.6 % Normal . [facility] Comment on above: Performed By: #### C BC, CMP, HS TROP, BNP #### [facility] [address] NRBC% 0.2 /100{WBC} Normal 0-0.5 [facility] Comment on above: Performed By: #### C BC, CMP, HS TROP, BNP #### [address] Platelet mean volume (Bld) [Entitic vol] 8.5 fL Normal 6.6-10.1 [facility] Comment on above: Performed By: #### C BC, CMP, HS TROP, BNP #### [address] Platelets (Bld) [#/Vol] 197 10*3/uL Normal 150-450 [facility] Comment on above: Performed By: #### C BC, CMP, HS TROP, BNP #### [address] RBC (Bld) [#/Vol] 5.21 10*6/uL Normal 3.90-5.60 [facility] Comment on above: Performed By: #### C BC, CMP, HS TROP, BNP #### [place] [address] [place] WBC (Bld) [#/Vol] 3.7 10*3/uL Low 4.1-10.5 [facility] Comment on above: Performed By: #### C BC, CMP, HS TROP, BNP #### [address] Comprehensive Metabolic Pane rigo 03-11-2022 Albumin [Mass/Vol] 4.1 g/dL Normal 3.2-5.5 [facility] Comment on above: Performed By: #### C BC, CMP, HS TROP, BNP #### [facility] [address] Albumin/Globulin [Mass ratio] 1.5 {ratio} Normal [facility] Comment on above: Performed By: #### C BC, CMP, HS TROP, BNP #### [facility] [address] ALP [Catalytic activity/Vol] 79 U/L Normal 32-92 [facility] Comment on above: Performed By: #### C BC, CMP, HS TROP, BNP #### [facility] [address] ALT [Catalytic activity/Vol] 23 U/L Normal 10-60 [facility] Comment on above: Performed By: #### C BC, CMP, HS TROP, BNP #### [address] Anion gap [Moles/Vol] 13.7 mmol/L Normal 6.0-15.0 [facility] Comment on above: Performed By: #### C BC, CMP, HS TROP, BNP #### [address] AST [Catalytic activity/Vol] 32 U/L Normal 10-42 [facility] Comment on above: Performed By: #### C BC, CMP, HS TROP, BNP #### [place] [address] [place] Bilirubin [Mass/Vol] 0.6 mg/dL Normal 0.3-1.2 [facility] Comment on above: Performed By: #### C BC, CMP, HS TROP, BNP #### [facility] [address] Calcium [Mass/Vol] 9.2 mg/dL Normal 8.2-10.2 [facility] Comment on above: Performed By: #### C BC, CMP, HS TROP, BNP #### [facility] [address] Chloride [Moles/Vol] 98 mmol/L Normal 95-114 [facility] Comment on above: Performed By: #### C BC, CMP, HS TROP, BNP #### [address] CO2 [Moles/Vol] 29.0 mmol/L Normal 22.0-30.0 [facility] Comment on above: Performed By: #### C BC, CMP, HS TROP, BNP #### [address] Creatinine [Mass/Vol] 0.86 mg/dL Normal 0.64-1.27 [facility] Comment on above: Performed By: #### C BC, CMP, HS TROP, BNP #### [address] Creatinine Clr Calc Pharmacy 91.63 [facility] Comment on above: Result Comment: PERF ORMED BY: [place] [address] PATHOLOGIST ENERGY AUDITOR EYAD HOWARD M.D. Performed By: #### C BC, CMP, HS TROP, BNP #### [address] Estimated GFR ( Jessica > 60 [facility] Comment on above: Result Comment: GFR estimated reference range: According to KDOQI guidelines, <60 ml/min/1.73m2 is sufficient to diagnose a patient with chronic kidney disease. Performed By: #### C BC, CMP, HS TROP, BNP #### [address] Estimated GFR (Non- Am > 60 [facility] Comment on above: Performed By: #### C BC, CMP, HS TROP, BNP #### [address] Globulin (S) [Mass/Vol] 2.8 g/dL [facility] Comment on above: Performed By: #### C BC, CMP, HS TROP, BNP #### [facility] [address] [place] [address] [place] Glucose [Mass/Vol] 91 mg/dL Normal 70-100 [facility] Comment on above: Result Comment: [facility] Glucose Reference Range is dependent on time and content of last meal. Glucose of more than 200 mg/dL in a nonstressed, ambulatory subject supports the diagnosis of Diabetes Mellitus. ADA recommended reference range Performed By: #### C BC, CMP, HS TROP, BNP #### [facility] [address] Potassium [Moles/Vol] 3.7 mmol/L Normal 3.5-5.1 [facility] Comment on above: Performed By: #### C BC, CMP, HS TROP, BNP #### [facility] [address] Protein [Mass/Vol] 6.9 g/dL Normal 6.1-7.9 [facility] Comment on above: Performed By: #### C BC, CMP, HS TROP, BNP #### [facility] [address] [place] [address] [place] Sodium [Moles/Vol] 137 mmol/L Normal 136-146 [facility] Comment on above: Performed By: #### C BC, CMP, HS TROP, BNP #### [facility] [address] [place] [address] [place] Urea nitrogen [Mass/Vol] 10 mg/dL Normal 9-23 [facility] Comment on above: Performed By: #### C BC, CMP, HS TROP, BNP #### [place] [address] [place] Creatinine and Glomerular fi ltration rate.predicted panel (S/P/Bld)Ordered By: Yo Blood on 03-11-2022 Creatinine [Mass/Vol] 0.86 mg/dL 0.64-1.27 [facility] ECG 12 lead ECGon 03-11-2022 ECG 12 lead ECG [facility] Main [place] [address] [place] [address] Electrocardiograph Report Signed Patient: Fredrick Stroud MR#: [id number] 427 : 1950 Acct:[id number] Age/Sex: 71 / M ADM Date: 03/11/22 Loc: ER Room: Type: DEP ER Attending Dr: Ordering Provider: Yo Blood DO Date of Service: 03/11/22 ECG/ECG 12 lead ECG: Shortness of Breath/Dyspnea Copies to: Test Reason : Blood Pressure : 187/101 mmHG Vent. Rate : 074 BPM Atrial Rate : 119 BPM P-R Int : 000 ms QRS Dur : 086 ms QT Int : 374 ms P-R-T Axes : 000 014 027 degrees QTc Int : 415 ms Atrial fibrillation with a competing junctional pacemaker Low voltage QRS Confirmed by Yo BLOOD DO ([id number]) on 03/11/2022 9:03:33 PM Referred By: Electronically Signed By:Yo BLOOD DO Transcribed By: MUS Signed By Yo Blood DO 0 03/11/222102 [facility] ECG 12 lead ECG [facility] [place] [address] Electrocardiograph Report Signed Patient: Fredrick Stroud MR#: [id number] 427 : 1950 Acct:[id number] Age/Sex: 71 / M ADM Date: 03/11/22 Loc: ER Room: Type: [facility] ER Attending Dr: Ordering Provider: Yo Blood DO Date of Service: 03/11/22 ECG/ECG 12 lead ECG: Shortness of Breath/Dyspnea Copies to: Test Reason : Blood Pressure : 174/087 mmHG Vent. Rate : 077 BPM Atrial Rate : 138 BPM P-R Int : 000 ms QRS Dur : 082 ms QT Int : 372 ms P-R-T Axes : 000 -06 020 degrees QTc Int : 420 ms Atrial fibrillation Low voltage QRS Confirmed by Yo BLOOD DO ([id number]) on 03/11/2022 7:52:28 PM Referred By: Electronically Signed By:Yo BLOOD DO Transcribed By: MUS Signed By Yo Blood DO 0 03/11/221951 [facility] Eosinophils Auto (Bld) [#/Vo l]Ordered By: Yo Blood on 03-11-2022 Eosinophils (Bld) [#/Vol] 0.0 10*3/uL 0.0-0.45 [facility] Eosinophils/100 WBC Auto (Bl d)Ordered By: Yo Blood on 03-11-2022 Eosinophils/100 WBC (Bld) 0.4 % . [facility] Erythrocyte distribution wid th Auto (RBC) [Ratio]Ordered By: Yo Blood on 03-11-2022 Erythrocyte distribution width (RBC) [Ratio] 14.0 % 12.0-14.8 [facility] Estimated glomerular filtrat ion rate (GFR) non- AmericanOrdered By: Yo Blood on 03-11-2022 GFR/1.73 sq M.predicted among non-blacks MDRD (S/P/Bld) [Vol rate/Area] > 60 mL/Min [facility] Globulin Calc (S) [Mass/Vol] Ordered By: Yo Blood on 03-11-2022 Globulin (S) [Mass/Vol] 2.8 g/dL [facility] Hematocrit Auto (Bld) [Volum e fraction]Ordered By: Yo Blood on 03-11-2022 Hematocrit (Bld) [Volume fraction] 46.7 % 38.8-50.0 [facility] Hemoglobin [Mass/volume] in BloodOrdered By: Yo Blood on 03-11-2022 Hemoglobin (Bld) [Mass/Vol] 15.3 g/dL 13.0-17.0 [facility] Laboratory - Chemistry and C hemistry - challengeOrdered By: Yo Blood on 03-11-2022 Natriuretic peptide B (Bld) [Mass/Vol] 101.0 pg/mL 5-100 [facility] Leukocytes [#/volume] correc vlad for nucleated erythrocytes in Blood by Automated counOrdered By: Yo Blood on 03-11-2022 WBC corrected for nucl RBC Auto (Bld) [#/Vol] 3.7 10*3/uL 4.1-10.5 [facility] Lymphocytes Auto (Bld) [#/Vo l]Ordered By: Yo Blood on 03-11-2022 Lymphocytes (Bld) [#/Vol] 1.1 10*3/uL 1.00-4.8 [facility] Lymphocytes/100 WBC Auto (Bl d)Ordered By: Yo Blood on 03-11-2022 Lymphocytes/100 WBC (Bld) 29.0 % . [facility] MCH Auto (RBC) [Entitic mass ]Ordered By: Yo Blood on 03-11-2022 MCH (RBC) [Entitic mass] 29.4 pg 27.5-35.2 [facility] MCHC Auto (RBC) [Mass/Vol]Or dered By: Yo Blood on 03-11-2022 MCHC (RBC) [Mass/Vol] 32.8 g/dL 32.5-35.6 [facility] MCV Auto (RBC) [Entitic vol] Ordered By: Yo Blood on 03-11-2022 MCV (RBC) [Entitic vol] 89.6 fL 83.5-101 [facility] Monocyte distribution width [Entitic volume] in Blood by AutomatedOrdered By: Yo Blood on 03-11-2022 Monocyte distribution width Auto (Bld) [Entitic vol] 20.67 % 0.00-20.00 [facility] Comment on above: For adults in ED, MD W > 20.0 may be associated with a higher risk of sepsis during the first 12 hrs of hospital admission Monocytes Auto (Bld) [#/Vol] Ordered By: Yo Blood on 03-11-2022 Monocytes (Bld) [#/Vol] 0.8 10*3/uL 0.0-0.8 [facility] Monocytes/100 WBC Auto (Bld) Ordered By: Yo Blood on 03-11-2022 Monocytes/100 WBC (Bld) 20.9 % . [facility] Neutrophils Auto (Bld) [#/Vo l]Ordered By: Yo Blood on 03-11-2022 Neutrophils (Bld) [#/Vol] 1.8 10*3/uL 1.8-7.7 [facility] Neutrophils/100 WBC Auto (Bl d)Ordered By: Yo Blood on 03-11-2022 Neutrophils/100 WBC (Bld) 48.6 % . [facility] No Panel InformationOrdered By: Yo Blood on 03-11-2022 SARS Antigen (LFIA) [facility] Estimated GFR () > 60 mL/Min [facility] Comment on above: GFR estimated refere nce range: According to KDOQI guidelines, <60 ml/min/1.73m2 is sufficient to diagnose a patient with chronic kidney disease. Pharmacy Creatinine Clearance (Chem 91.63 [facility] Nucleated erythrocytes [Pres ence] in Blood by Automated countOrdered By: Yo Blood on 03-11-2022 Nucleated RBC Auto Ql (Bld) 0.2 /100{WBC} 0-0.5 [facility] Platelet mean volume Auto (B ld) [Entitic vol]Ordered By: Yo Blood on 03-11-2022 Platelet mean volume (Bld) [Entitic vol] 8.5 fL 6.6-10.1 [facility] Platelets Auto (Bld) [#/Vol] Ordered By: Yo Blood on 03-11-2022 Platelets (Bld) [#/Vol] 197 10*3/uL 150-450 [facility] Protein [Mass/volume] in Ser um or PlasmaOrdered By: Yo Blood on 03-11-2022 Protein [Mass/Vol] 6.9 g/dL 6.1-7.9 [facility] RBC Auto (Bld) [#/Vol]Ordere d By: Yo Blood on 03-11-2022 RBC (Bld) [#/Vol] 5.21 10*6/uL 3.90-5.60 [facility] Serum or plasma alanine sullivan otransferase measurement without P-5'-P (enzymatic activiOrdered By: Yo Blood on 03-11-2022 ALT No additional P-5'-P [Catalytic activity/Vol] 23 U/L 10-60 [facility] Serum or plasma albumin/glob ulin mass ratioOrdered By: Yo Blood on 03-11-2022 Albumin/Globulin [Mass ratio] 1.5 {ratio} [facility] Serum or plasma alkaline faviola sphatase measurement (enzymatic activity/volume)Ordered By: Yo Blood on 03-11-2022 ALP [Catalytic activity/Vol] 79 U/L 32-92 [facility] Serum or plasma anion gap de terminationOrdered By: Yo Blood on 03-11-2022 Anion gap [Moles/Vol] 13.7 mmol/L 6.0-15.0 [facility] Serum or plasma aspartate am inotransferase measurement (enzymatic activity/volume)Ordered By: Yo Blood on 03-11-2022 AST [Catalytic activity/Vol] 32 U/L 10-42 [facility] Serum or plasma calcium echo urement (mass/volume)Ordered By: Yo Blood on 03-11-2022 Calcium [Mass/Vol] 9.2 mg/dL 8.2-10.2 [facility] Serum or plasma chloride tessie surement (moles/volume)Ordered By: Yo Blood on 03-11-2022 Chloride [Moles/Vol] 98 mmol/L 95-114 [facility] Serum or plasma glucose echo urement (mass/volume)Ordered By: Yo Blood on 03-11-2022 Glucose [Mass/Vol] 91 mg/dL 70-100 [facility] Comment on above: ADA recommended refe rence rangeRandom Glucose Reference Range is dependent on time and content of last meal. Glucose of more than 200 mg/dL in a nonstressed, ambulatory subject supports the diagnosis of Diabetes Mellitus. Serum or plasma potassium me asurement (moles/volume)Ordered By: Yo Blood on 03-11-2022 Potassium [Moles/Vol] 3.7 mmol/L 3.5-5.1 [facility] Serum or plasma sodium measu rement (moles/volume)Ordered By: Yo Blood on 03-11-2022 Sodium [Moles/Vol] 137 mmol/L 136-146 [facility] Serum or plasma total biliru bin measurement (mass/volume)Ordered By: Yo Blood on 03-11-2022 Bilirubin [Mass/Vol] 0.6 mg/dL 0.3-1.2 [facility] Serum or plasma total carbon dioxide measurement (moles/volume)Ordered By: Yo Blood on 03-11-2022 CO2 [Moles/Vol] 29.0 mmol/L 22.0-30.0 [facility] Serum or plasma urea nitroge n measurement (mass/volume)Ordered By: Yo Blood on 03-11-2022 Urea nitrogen [Mass/Vol] 10 mg/dL 9-23 [facility] Gertrude Ag Negativeon 03-11-19 Gertrude Ag Negative Negative Normal Negative [facility] Comment on above: Result Comment: This is a duplicate Gertrude SARS Antigen (OLY) result to be used for statistical tracking purpose only. PERFORMED BY: [place] [address] PATHOLOGIST ENERGY AUDITOR EYAD HOWARD M.D. Performed By: #### C OVID-19 GERTRUDE, SOFIANEG #### [address] [address] [place] Troponin I High Sensitivityo n 03-11-2022 Troponin I High Sensitivity 9 pg/mL Normal 0- [facility] Comment on above: Result Comment: PERF ORMED BY: [place] [address] PATHOLOGIST ENERGY AUDITOR EYAD HOWARD M.D. Performed By: #### C BC, CMP, HS TROP, BNP #### [place] [id number] [facility] Troponin I.cardiac [Mass/vol ume] in Serum or Plasma by High sensitivity methodOrdered By: Yo Blood on 03-11-2022 Troponin I.cardiac High sensitivity method [Mass/Vol] 9 pg/mL 0- [facility] WBC Auto (Bld) [#/Vol]Ordere d By: Yo Blood on 03-11-2022 WBC (Bld) [#/Vol] 3.7 10*3/uL 4.1-10.5 [facility] XR chest 2V*on 03-11-2022 XR chest 2V* [facility] Main [place] [address] [place], [place] [id number] XRay Report Signed Patient: Fredrick Stroud MR#: [id number] 427 : 1950 Acct:[id number] Age/Sex: 71 / M ADM Date: 03/11/22 Loc: ER Room: Type: PRE ER Attending Dr: Copies to: PANKAJ PROVIDER Ordering Provider: SIDDHARTH LIRA Date of Service: 03/11/22 XR/XR chest 2V*: Shortness of Breath/Dyspnea XR chest 2V* 03/11/2022 12:55 PM SIGNS AND SYMPTOMS: Shortness of breath, productive cough PROTOCOL: Frontal and lateral radiographs of the chest COMPARISON: 12/25/2017 FINDINGS: The trachea is midline. The heart and mediastinal structures are within normal limits. The lung parenchyma is clear. The bony thorax is intact. Degenerative changes are noted in the thoracic spine and shoulders. XR/XR chest 2V* IMPRESSION: No acute cardiopulmonary pathology. Impression dictated by: Ga Dorsey M.D.03/11/2022 1:42 PM Dictation Location: RADIO-PC-13 Transcribed By: ADRIAN 03/11/22 1342 Dictated By: Ga Dorsey II, MD 03/11/22 1339 Signed By: 03/11/22 1342 Normal [facility] XR hip LT min 2V(w/wo pelvis )*on 09-26-2021 XR hip LT min 2V(w/wo pelvis)* [facility] Main [place] [address] [place] [address] XRay Report Signed Patient: Fredrick Stroud MR#: [id number] 427 : 1950 Acct:[id number] Age/Sex: 70 / M ADM Date: 09/26/21 Loc: [facility] Room: Type: [facility] Attending Dr: Shahriar Dhillon II, MD Copies to: Shahriar Dhillon MD Ordering Provider: Shahriar Dhillon MD Date of Service: 09/26/21 XR/XR hip LT min 2V(w/wo pelvis)*: Presence of left artificial hip joint LEFT HIP - 2 views: CLINICAL HISTORY: Follow-up after hip replacement COMPARISON: 08/15/2021 AP view of the lower pelvis and crosstable lateral view of the left hip were obtained. A hip prosthesis is again seen on the left. The hardware appears intact and unchanged from the prior. There is no developing fracture or dislocation. Degenerative changes are seen at the lower imaged lumbar spine. There is minor SI joint sclerosis. Patient has prostate radiation seeds. There are no significant soft tissue abnormalities. XR/XR hip LT min 2V(w/wo pelvis)* IMPRESSION: STABLE LEFT HIP PROSTHESIS Impression dictated by: Ariana Tanner M.D.09/26/2021 3:27 PM Dictation Location: RADIO-PC-13 Transcribed By: ADRIAN 09/26/21 1527 Dictated By: Ariana Tanner MD 09/26/21 1526 Signed By: 09/26/21 152 [facility] XR hip LT min 2V(w/wo pelvis )*on 08-15-2021 XR hip LT min 2V(w/wo pelvis)* [place] [address] XRay Report Signed Patient: Fredrick Stroud MR#: [id number] 427 : 1950 Acct:[id number] Age/Sex: 70 / M ADM Date: 08/15/21 Loc: [facility] Room: Type: [facility] Attending Dr: Shahriar Dhillon II, MD Copies to: Shahriar Dhillon MD Ordering Provider: Shahriar Dhillon MD Date of Service: 08/15/21 XR/XR hip LT min 2V(w/wo pelvis)*: Aftercare following joint replacement surgery LEFT HIP - 2 views: 1 view pelvis CLINICAL HISTORY: Follow-up left GEOVANI COMPARISON: Hip series 07/02/2021 FINDINGS: 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 Prostate radiation seeds. Mild degenerative changes right hip. XR/XR hip LT min 2V(w/wo pelvis)* IMPRESSION: NO EVIDENCE OF HARDWARE COMPLICATION. Impression dictated by: Dandy Stevenson Jr., D.ODre08/15/2021 2:40 PM Dictation Location: RADIO-PC-13 Transcribed By: ADRIAN 08/15/21 1440 Dictated By: Dandy Stevenson Jr, DO 08/15/21 1439 Signed By: 08/15/21 144 [facility] XR hip LT min 2V(w/wo pelvis)* [facility] [employer] Other XR hip LT min 2V(w/wo pelvis)* [facility] [employer] Other XR hip LT min 2V(w/wo pelvis)* [address] [facility] [employer] Other XR hip LT min 2V(w/wo pelvis)* RHONDA Malone [address] [employer] Other XR hip LT min 2V(w/wo pelvis)* XRay Report [employer] Other XR hip LT min 2V(w/wo pelvis)* Signed [employer] Other XR hip LT min 2V(w/wo pelvis)* Patient: Fredrick Stroud MR#: [id number] [employer] Other XR hip LT min 2V(w/wo pelvis)* 427 [employer] Other XR hip LT min 2V(w/wo pelvis)* : 1950 Acct:[id number] [employer] Other XR hip LT min 2V(w/wo pelvis)* Age/Sex: 70 / M ADM Date: 08/15/21 [employer] Other XR hip LT min 2V(w/wo pelvis)* Loc: [facility] Room: Type: [facility] [employer] Other XR hip LT min 2V(w/wo pelvis)* Attending Dr: Shahriar Dhillon II, MD [employer] Other XR hip LT min 2V(w/wo pelvis)* Copies to: Shahriar Dhillon MD [employer] Other XR hip LT min 2V(w/wo pelvis)* Ordering Provider: Shahriar Dhillon MD [employer] Other XR hip LT min 2V(w/wo pelvis)* Date of Service: 08/15/21 [employer] Other XR hip LT min 2V(w/wo pelvis)* XR/XR hip LT min 2V(w/wo pelvis)*: Aftercare following joint replacement [employer] Other XR hip LT min 2V(w/wo pelvis)* surgery [employer] Other XR hip LT min 2V(w/wo pelvis)* LEFT HIP - 2 views: 1 view pelvis [employer] Other XR hip LT min 2V(w/wo pelvis)* CLINICAL HISTORY: Follow-up left GEOVANI [employer] Other XR hip LT min 2V(w/wo pelvis)* COMPARISON: Hip series 07/02/2021 [employer] Other XR hip LT min 2V(w/wo pelvis)* FINDINGS: 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 Prostate radiation [employer] Other XR hip LT min 2V(w/wo pelvis)* seeds. Mild degenerative changes right hip. [employer] Other XR hip LT min 2V(w/wo pelvis)* XR/XR hip LT min 2V(w/wo pelvis)* [employer] Other XR hip LT min 2V(w/wo pelvis)* IMPRESSION: [employer] Other XR hip LT min 2V(w/wo pelvis)* NO EVIDENCE OF HARDWARE COMPLICATION. [employer] Other XR hip LT min 2V(w/wo pelvis)* Impression dictated by: Dandy Stevenson Jr., D.ODre08/15/2021 2:40 PM [employer] Other XR hip LT min 2V(w/wo pelvis)* Dictation Location: RADIO-PC-13 [employer] Other XR hip LT min 2V(w/wo pelvis)* Transcribed By: ADRIAN 08/15/21 1440 [employer] Other XR hip LT min 2V(w/wo pelvis)* Dictated By: Dandy Stevenson Jr, DO 08/15/21 1439 [employer] Other XR hip LT min 2V(w/wo pelvis)* Signed By: [employer] Other XR hip LT min 2V(w/wo pelvis)* 08/15/21 1440 [employer] Other Basic Metabolic Panelon 05 Calcium [Mass/Vol] 8.6 mg/dL Normal 8.2-10.2 [facility] Comment on above: Performed By: #### C BC, BMP #### [facility] [address] [place] [address] [place] Chloride [Moles/Vol] 102 mmol/L Normal 95-114 [facility] Comment on above: Performed By: #### C BC, BMP #### [facility] [address] CO2 [Moles/Vol] 25.5 mmol/L Normal 22.0-30.0 [facility] Comment on above: Performed By: #### C BC, BMP #### [facility] [address] Creatinine [Mass/Vol] 0.96 mg/dL Normal 0.64-1.27 [facility] Comment on above: Performed By: #### C BC, BMP #### [place] [address] [place] Creatinine Clr Calc Pharmacy 81.73 [facility] Comment on above: Result Comment: PERF ORMED BY: [place] [address] PATHOLOGIST ENERGY AUDITOR EYAD HOWARD M.D. Performed By: #### C BC, BMP #### [address] Estimated GFR ( Jessica > 60 [facility] Comment on above: Result Comment: GFR estimated reference range: According to KDOQI guidelines, <60 ml/min/1.73m2 is sufficient to diagnose a patient with chronic kidney disease. Performed By: #### C BC, BMP #### [facility] [address] Estimated GFR (Non- Am > 60 Normal [facility] Comment on above: Performed By: #### C BC, BMP #### [facility] [address] Glucose [Mass/Vol] 167 mg/dL High 70-100 [facility] Comment on above: Result Comment: [facility] Glucose Reference Range is dependent on time and content of last meal. Glucose of more than 200 mg/dL in a nonstressed, ambulatory subject supports the diagnosis of Diabetes Mellitus. ADA recommended reference range Performed By: #### C BC, BMP #### [facility] [address] Potassium [Moles/Vol] 4.4 mmol/L Normal 3.5-5.1 [facility] Comment on above: Performed By: #### C BC, BMP #### [address] Sodium [Moles/Vol] 135 mmol/L Low 136-146 [facility] Comment on above: Performed By: #### C BC, BMP #### [address] Urea nitrogen [Mass/Vol] 18 mg/dL Normal 9-23 [facility] Comment on above: Performed By: #### C BC, BMP #### [address] Complete Blood Count Auto Di ffon 07-03-2021 Basophils (Bld) [#/Vol] 0.0 10*3/uL Normal 0.0-0.2 [facility] Comment on above: Result Comment: PERF ORMED BY: [place] [address] PATHOLOGIST ENERGY AUDITOR EYAD HOWARD M.D. Performed By: #### C BC, BMP #### [place] [address] [place] Basophils/100 WBC (Bld) 0.3 % Normal . [facility] Comment on above: Performed By: #### C BC, BMP #### [facility] [address] Eosinophils (Bld) [#/Vol] 0.0 10*3/uL Normal 0.0-0.45 [facility] Comment on above: Performed By: #### C BC, BMP #### [facility] [address] Eosinophils/100 WBC (Bld) 0.0 % Normal . [facility] Comment on above: Performed By: #### C BC, BMP #### [address] Erythrocyte distribution width (RBC) [Ratio] 14.2 % Normal 12.0-14.8 [facility] Comment on above: Performed By: #### C BC, BMP #### [address] Hematocrit (Bld) [Volume fraction] 32.9 % Low 38.8-50.0 [facility] Comment on above: Performed By: #### C BC, BMP #### [address] Hemoglobin (Bld) [Mass/Vol] 11.2 g/dL Low 13.0-17.0 [facility] Comment on above: Performed By: #### C BC, BMP #### [address] Lymphocytes (Bld) [#/Vol] 0.6 10*3/uL Low 1.00-4.8 [facility] Comment on above: Performed By: #### C BC, BMP #### [place] [address] [place] Lymphocytes/100 WBC (Bld) 4.7 % Normal . [facility] Comment on above: Performed By: #### C BC, BMP #### [address] MCH (RBC) [Entitic mass] 30.1 pg Normal 27.5-35.2 [facility] Comment on above: Performed By: #### C BC, BMP #### [facility] [address] MCV (RBC) [Entitic vol] 88.7 fL Normal 83.5-101 [facility] Comment on above: Performed By: #### C BC, BMP #### [facility] [address] Mean Corpuscular HGB Conc 33.9 g/dL Normal 32.5-35.6 [facility] Comment on above: Performed By: #### C BC, BMP #### [facility] [address] Monocytes (Bld) [#/Vol] 1.0 10*3/uL High 0.0-0.8 [facility] Comment on above: Performed By: #### C BC, BMP #### [address] Monocytes/100 WBC (Bld) 8.3 % Normal . [facility] Comment on above: Performed By: #### C AKHIL, BMP #### [address] Neutrophils (Bld) [#/Vol] 10.9 10*3/uL High 1.8-7.7 [facility] Comment on above: Performed By: #### C BC, BMP #### [address] Neutrophils/100 WBC (Bld) 86.7 % Normal . [facility] Comment on above: Performed By: #### C BC, BMP #### [place] [address] [place] Nucleated RBC/100 WBC (Bld) [Ratio] 0.0 % Normal 0-0.5 [facility] Comment on above: Performed By: #### C BC, BMP #### [address] Platelet mean volume (Bld) [Entitic vol] 8.4 fL Normal 6.6-10.1 [facility] Comment on above: Performed By: #### C BC, BMP #### [address] [place] [address] [facility] Platelets (Bld) [#/Vol] 210 10*3/uL Normal 150-450 [facility] Comment on above: Performed By: #### C BC, BMP #### [facility] [address] RBC (Bld) [#/Vol] 3.71 10*6/uL Low 3.90-5.60 [facility] Comment on above: Performed By: #### C BC, BMP #### [facility] [address] [place] [id number] [facility] WBC (Bld) [#/Vol] 12.5 10*3/uL High 4.5-11.0 [facility] Comment on above: Performed By: #### C AKHIL, BMP #### [address] ECG 12 lead ECGon 07-02-2021 ECG 12 lead ECG [facility] Main [place] [address] [place] [address] Electrocardiograph Report Signed Patient: Fredrick Stroud MR#: [id number] 427 : 1950 Acct:[id number] Age/Sex: 70 / M ADM Date: 07/02/21 Loc: [place] Room: Type: [facility] Attending Dr: Shahriar Dhillon II, MD Ordering Provider: Neto Mora MD Date of Service: 07/02/2111/16/955 ECG/ECG 12 lead ECG: Postop Copies to: Test Reason : Blood Pressure : / mmHG Vent. Rate : 070 BPM Atrial Rate : 267 BPM P-R Int : 000 ms QRS Dur : 086 ms QT Int : 418 ms P-R-T Axes : 000 -18 025 degrees QTc Int : 451 ms Atrial flutter with variable AV block Nonspecific ST abnormality Abnormal ECG When compared with ECG of 18-JUN-2021 10:28, Atrial flutter has replaced Sinus rhythm Confirmed by MORENO ROSARIO DO ([id number]) on 07/02/2021 1:06:17 PM Referred By: Electronically Signed By:MORENO MARLENE DO Transcribed By: MUS Signed By Moreno Rosario DO 07/02 1306 [facility] [place] 07-02-2021 L - -------- Specimen: [id number] Received: 07/02/21 Status: LORETTA Solis Num: [id number] Spec Type: Surgical Subm Dr: Shahriar Dhillon MD Tissues: A Femoral Head - Other than Fracture (L HIP) Procedures: HE Stain, Gross/Micro L3, Decal -------- Patient Age/Sex Location Account Attending Physician -------- Fredrick Stroud 70/M 4N [id number] Shahriar Dhillon MD -------- SPEC NUM: [id number] RECD: 07/02/21 STATUS: LORETTA SOLIS NUM: [id number] MILY: 07/02/[address]: Shahriar Dhillon MD ENTERED: 07/02/[address] [facility] [address]: LEBRON TYPE: Surgical DEPT: S ORDERED: HE Stain, Gross/Micro L3, Decal ORDERED: HE Stain, Gross/Micro L3, Decal Pathological Diagnosis Bone and soft tissue, left hip, arthroplasty: - Bone with degenerative change, subchondral cyst, focal chronic inflammation and bone remodeling change. Clinical Information Degenerative joint disease, left hip Gross Description Received in formalin labeled with the patient's name and bone and tissue left hip is a 5 x 4.7 x 4 cm femoral head with a 2.2 cm in length x 5.2 cm in diameter femoral neck. The articular cartilage is tee-red with slight superficial erosion and granularity comprising approximately 15%. Focal eburnation is identified comprising approximately 10%. Peripheral osteophyte formation is identified. The femoral head is quadrasected to reveal a bright white wedge-like area of discoloration that measures at least 2.2 cm. The remaining tissue is yellow-red. No further masses or lesions are identified. Also received within the specimen container is a 6 x 5 x 3 cm aggregate of red bone curettings, bone fragments and scant soft tissue. A bilingual call center representative section of bone, following formalin fixation and decalcification is submitted in cassette A 1. (SM/YJ) -------- Specimen: [id number] Received: 07/02/21 Status: LORETTA Fontaineq Num: [id number] Spec Type: Surgical Subm Dr: Shahriar Dhillon MD Tissues: A Femoral Head - Other than Fracture (L HIP) Procedures: HE Stain, Gross/Micro L3, Decal -------- Patient: JuanFredrick Leung [id number] (Continued) -------- Specimen: [id number] Received: 07/02/21 (Continued) Signed (signature on file) Kaycee Curry MD 07/04/21 1625 -------- Specimen: [id number] Received: 07/02/21 Status: LORETTA Solis Num: [id number] Spec Type: Surgical Subm Dr: Shahriar Dhillon MD Tissues: A Femoral Head - Other than Fracture (L HIP) Procedures: LEONARD Richardson, Gross/Micro L3, Decal -------- Patient: Fredrick Stroud [id number] (Continued) -------- Specimen: Received: 07/02/21 (Continued) Microscopic Description One glass slide with H E stained material has been examined. The microscopic findings support the above pathologic diagnosis. CPT Codes 09674, 33353 -------- -------- Specimen: Received: 07/02/21 Status: LORETTA Solis Num: [id number] Spec Type: Surgical Subm Dr: Shahriar Dhillon MD Tissues: A Femoral Head - Other than Fracture (L HIP) Procedures: HE Stain, Gross/Micro L3, Decal -------- Patient: Fredrick Stroud [id number] (Continued) -------- Signed (signature on file) Kaycee Curry MD 07/04/21 1625 [facility] XR hip LT 1Von 07-02-2021 XR hip LT 1V [address] [address] XRay Report Signed Patient: Fredrick Stroud MR#: [id number] : 1950 Acct:[id number] Age/Sex: 70 / M ADM Date: 07/02/21 Loc: [place] Room: Type: [facility] Attending Dr: Shahriar Dhillon II, MD Ordering Provider: Shahriar Dhillon MD Date of Service: 07/02/21 XR/XR hip LT 1V: . Copies to: Shahriar Dhillon MD Intraoperative study CLINICAL HISTORY: Left total hip replacement. COMPARISON: None FINDINGS: 3 images were obtained of the left hip intraoperatively by the referring service. No radiologist was present and procedure. A total of 46 seconds of fluoroscopic time was utilized. Left hip prosthesis is in place. XR/XR hip LT 1V IMPRESSION: INTRAOPERATIVE STUDY.. Impression dictated by: Dandy Stevenson Jr., Namita07/02/2021 9:26 AM Dictation Location: [place] [address] Transcribed By: [facility] 07/02/21925 Dictated By: Dandy Stevenson Jr, DO 07/02/21922 Signed By: 07/02/21925 [facility] XR low pelvis w/LT x-table h ipon 07-02-2021 XR low pelvis w/LT x-table hip [address] [address] XRay Report Signed Patient: Fredrick Stroud MR#: [id number] : 1950 Acct:[id number] Age/Sex: 70 / M ADM Date: 07/02/21 Loc: [place] Room: Type: [facility] Attending Dr: Shahriar Dhillon II, MD Ordering Provider: Shahriar Dhillon MD Date of Service: 07/02/21 XR/XR low pelvis w/LT x-table hip: Total Hip, due in PACU Copies to: Shahriar Dhillon MD LEFT HIP WITH LOW PELVIS - 2 views CLINICAL DATA: Follow-up after hip replacement. COMPARISON: 03/21/2021 AP view of the lower pelvis and crosstable lateral view of the left hip were obtained. There is a new left hip prosthesis. The hardware appears intact and in appropriate position. No acute fracture or dislocation is seen. There is subcutaneous air lateral to the hip. There are radiation seeds in the area of the prostate. XR/XR low pelvis w/LT x-table hip IMPRESSION: SATISFACTORY POSTOPERATIVE APPEARANCE OF HIP REPLACEMENT. 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 This test has not been FDA cleared or approved. This test has been authorized by FDA under an Emergency Use Authorization (EUA). This test has been validated in accordance with the FDA's Guidance Document (Policy for Diagnostics Testing in Laboratories Certified to Perform High Complexity Testing under CLIA prior to Emergency Use Authorization for Coronavirus Disease-2019 during the Public Health Emergency) issued on May 27, 2019. This test is only authorized for the duration of time the declaration that circumstances exist justifying the authorization of the emergency use of in vitro diagnostic tests for detection of SARS-CoV-2 virus and/or diagnosis of COVID-19 infection under section 564(b)(1) of the Act, 21 U.S.C. 360bbb-3(b)(1), unless the authorization is terminated or revoked sooner. PERFORMED BY: [place] [phone] PATHOLOGIST ENERGY AUDITOR EYAD HOWARD M.D. Performed By: #### C BC, CMP, HS TROP, BNP #### [address] Basic Metabolic Panelon 05-26 Calcium [Mass/Vol] 9.4 mg/dL Normal 8.2-10.2 [facility] Comment on above: Result Comment: PERF ORMED BY: [place] [address] PATHOLOGIST ENERGY AUDITOR EYAD HOWARD M.D. Performed By: #### C OVID-19 GERTRUDE, SOFIANEG #### [address] Chloride [Moles/Vol] 103 mmol/L Normal 95-114 [facility] Comment on above: Performed By: #### C OVID-19 GERTRUDE, SOFIANEG #### [facility] [address] [place] [address] CO2 [Moles/Vol] 26.4 mmol/L Normal 22.0-30.0 [facility] Comment on above: Performed By: #### C OVID-19 GERTRUDE, SOFIANEG #### [facility] [address] [place] [address] Creatinine [Mass/Vol] 0.89 mg/dL Normal 0.64-1.27 [facility] Comment on above: Performed By: #### C OVID-19 GERTRUDE, SOFIANEG #### [address] Estimated GFR ( Jessica > 60 Normal [facility] Comment on above: Result Comment: GFR estimated reference range: According to KDOQI guidelines, <60 ml/min/1.73m2 is sufficient to diagnose a patient with chronic kidney disease. Performed By: #### C OVID-19 GERTRUDE SOFIANEG #### [facility] [address] [place] [address] [place] Estimated GFR (Non- Am > 60 Normal [facility] Comment on above: Performed By: #### C OVID-19 GERTRUDE SOFIANEG #### [facility] [address] Glucose [Mass/Vol] 101 mg/dL High 70-100 [facility] Comment on above: Result Comment: Mobile om Glucose Reference Range is dependent on time and content of last meal. Glucose of more than 200 mg/dL in a nonstressed, ambulatory subject supports the diagnosis of Diabetes Mellitus. ADA recommended reference range Performed By: #### C OVID-19 GERTRUDE SOFIANEG #### [facility] [address] Potassium [Moles/Vol] 4.4 mmol/L Normal 3.5-5.1 [facility] Comment on above: Performed By: #### C OVID-19 GERTRUDE SOFIANEG #### [facility] [address] [place] [address] [place] Sodium [Moles/Vol] 139 mmol/L Normal 136-146 [facility] Comment on above: Performed By: #### C OVID-19 GERTRUDE SOFIANEG #### [facility] [address] [place] [address] [place] Urea nitrogen [Mass/Vol] 23 mg/dL Normal 9-23 [facility] Comment on above: Performed By: #### C OVID-19 GERTRUDE SOFIANEG #### [facility] [address] [place] [address] [place] Complete Blood Count Auto Di ffon 06-18-2021 Basophils (Bld) [#/Vol] 0.0 10*3/uL Normal 0.0-0.2 [facility] Comment on above: Result Comment: PERF ORMED BY: [place] [address] PATHOLOGIST ENERGY AUDITOR EYAD HOWARD M.D. Performed By: #### C OVID-19 GERTRUDE, SOFIANEG #### [facility] [address] [place] [address] Basophils/100 WBC (Bld) 0.9 % Normal . [facility] Comment on above: Performed By: #### C OVID-19 GERTRUDE, SOFIANEG #### [facility] [address] Eosinophils (Bld) [#/Vol] 0.1 10*3/uL Normal 0.0-0.45 [facility] Comment on above: Performed By: #### C OVID-19 GERTRUDE, SOFIANEG #### [facility] [address] [place] [address] Eosinophils/100 WBC (Bld) 1.4 % Normal . [facility] Comment on above: Performed By: #### C OVID-19 GERTRUDE, SOFIANEG #### [facility] [address] [place] [address] Erythrocyte distribution width (RBC) [Ratio] 14.0 % Normal 12.0-14.8 [facility] Comment on above: Performed By: #### C OVID-19 GERTRUDE, SOFIANEG #### [facility] [address] [place] [address] Hematocrit (Bld) [Volume fraction] 41.8 % Normal 38.8-50.0 [facility] Comment on above: Performed By: #### C OVID-19 GERTRUDE, SOFIANEG #### [facility] [address] [place] [address] Hemoglobin (Bld) [Mass/Vol] 14.2 g/dL Normal 13.0-17.0 [facility] Comment on above: Performed By: #### C OVID-19 GERTRUDE, SOFIANEG #### [facility] [address] [place] [address] [place] Lymphocytes (Bld) [#/Vol] 1.1 10*3/uL Normal 1.00-4.8 [facility] Comment on above: Performed By: #### C OVID-19 GERTRUDE, SOFIANEG #### [facility] [address] Lymphocytes/100 WBC (Bld) 22.7 % Normal . [facility] Comment on above: Performed By: #### C OVID-19 GERTRUDE, SOFIANEG #### [facility] [address] MCH (RBC) [Entitic mass] 30.4 pg Normal 27.5-35.2 [facility] Comment on above: Performed By: #### C OVID-19 GERTRUDE, SOFIANEG #### [address] MCV (RBC) [Entitic vol] 89.7 fL Normal 83.5-101 [facility] Comment on above: Performed By: #### C OVID-19 GERTRUDE, SOFIANEG #### [facility] [address] [place] [address] Mean Corpuscular HGB Conc 33.9 g/dL Normal 32.5-35.6 [facility] Comment on above: Performed By: #### C OVID-19 GERTRUDE, SOFIANEG #### [address] Monocytes (Bld) [#/Vol] 0.5 10*3/uL Normal 0.0-0.8 [facility] Comment on above: Performed By: #### C OVID-19 GERTRUDE, SOFIANEG #### [facility] [address] [place] [address] Monocytes/100 WBC (Bld) 11.2 % Normal . [facility] Comment on above: Performed By: #### C OVID-19 GERTRUDE, SOFIANEG #### [facility] [address] [place] [address] Neutrophils (Bld) [#/Vol] 3.1 10*3/uL Normal 1.8-7.7 [facility] Comment on above: Performed By: #### C OVID-19 GERTRUDE, SOFIANEG #### [facility] [address] [place] [address] [place] Neutrophils/100 WBC (Bld) 63.8 % Normal . [facility] Comment on above: Performed By: #### C OVID-19 GERTRUDE, SOFIANEG #### [facility] [address] Nucleated RBC/100 WBC (Bld) [Ratio] 0.1 % Normal 0-0.5 [facility] Comment on above: Performed By: #### C OVID-19 GERTRUDE, SOFIANEG #### [facility] [address] Platelet mean volume (Bld) [Entitic vol] 8.2 fL Normal 6.6-10.1 [facility] Comment on above: Performed By: #### C OVID-19 GERTRUDE, SOFIANEG #### [place] [address] [place] Platelets (Bld) [#/Vol] 243 10*3/uL Normal 150-450 [facility] Comment on above: Performed By: #### C OVID-19 GERTRUDE, SOFIANEG #### [place] [address] [place] RBC (Bld) [#/Vol] 4.67 10*6/uL Normal 3.90-5.60 [facility] Comment on above: Performed By: #### C OVID-19 GERTRUDE, SOFIANEG #### [address] WBC (Bld) [#/Vol] 4.8 10*3/uL Normal 4.5-11.0 [facility] Comment on above: Performed By: #### C OVID-19 GERTRUDE, SOFIANEG #### [address] ECG 12 lead ECGon 06-18-2021 ECG 12 lead ECG [facility] [place] [address] [place] [address] Electrocardiograph Report Signed Patient: Fredrick Strodu MR#: [id number] 427 : 1950 Acct:[id number] Age/Sex: 70 / M ADM Date: 06/18/21 Loc: PS Room: Type: [facility] Attending Dr: Shahriar Dhillon II, MD Ordering Provider: Shahriar Dhillon MD Date of Service: 06/18/21 ECG/ECG 12 lead ECG: surgery 07/02/21 Copies to: Test Reason : Blood Pressure : / mmHG Vent. Rate : 072 BPM Atrial Rate : 072 BPM P-R Int : 342 ms QRS Dur : 092 ms QT Int : 376 ms P-R-T Axes : 068 -27 033 degrees QTc Int : 411 ms Sinus rhythm with 1st degree AV block Otherwise normal ECG When compared with ECG of 28-JUL-2017 09:40, No significant change was found Confirmed by WISAM TORRE MD (Count includes the [facility]) on 06/19/2021 10:06:42 AM Referred By: RAMÓN DHILLON Electronically Signed By:WISAM TORRE MD Transcribed By: MUS Signed By Wisam Torre MD 0 06/19/21 1006 Normal [facility] Fructosamineon 06-18-2021 Fructosamine 217 umol/L Normal 0-285 [facility] Comment on above: Result Comment: Publ ished reference interval for apparently healthy subjects between age 20 and 60 is 205 - 285 umol/L and in a poorly controlled diabetic population is 228 - 563 umol/L with a mean of 396 umol/L. Performed at: - [place] [address] [employer] Molder: Benton Caro PhD, Phone: [phone] PERFORMED BY: [place] [address] PATHOLOGIST ENERGY AUDITOR EYAD HOWARD M.D. Performed By: #### C OVID-19 WOLFGANG LOREDO #### [address] PST Type and Screenon 2021 ABO and Rh group Nom (Bld) Blood group O Rh(D) positive Normal [facility] Comment on above: Order Comment: Date of Surgery: [id number] Result Comment: PERF ORMED BY: [place] [address] PATHOLOGIST ENERGY AUDITOR EYAD HOWARD M.D. Urinalysison 06-18-2021 Appearance (U) Clear Normal Clear [facility] Comment on above: Order Comment: Name Collection Type:: Clean-Voided Midstream Performed By: #### C BC, CMP, HS TROP, BNP #### [facility] [address] [place] [address] [place] Bilirubin,Urine Negative Normal Negative [facility] Comment on above: Order Comment: Name Collection Type:: Clean-Voided Midstream Performed By: #### C BC, CMP, HS TROP, BNP #### [facility] [address] [place] [address] [place] Color (U) Yellow Normal Yellow [facility] Comment on above: Order Comment: Name Collection Type:: Clean-Voided Midstream Performed By: #### C BC, CMP, HS TROP, BNP #### [facility] [address] [place] [address] [place] Glucose Ql (U) Normal Normal Normal [facility] Comment on above: Order Comment: Name Collection Type:: Clean-Voided Midstream Performed By: #### C BC, CMP, HS TROP, BNP #### [facility] [address] [place] [address] [place] Ketones Ql (U) Negative Normal Negative [facility] Comment on above: Order Comment: Name Collection Type:: Clean-Voided Midstream Performed By: #### C BC, CMP, HS TROP, BNP #### [facility] [address] [place] [address] [place] Leukocyte esterase Test strip Ql (U) Negative Normal Negative [facility] Comment on above: Order Comment: Name Collection Type:: Clean-Voided Midstream Performed By: #### C BC, CMP, HS TROP, BNP #### [facility] [address] [place] [address] [place] Nitrite,Urine Negative Normal Negative [facility] Comment on above: Order Comment: Name Collection Type:: Clean-Voided Midstream Performed By: #### C BC, CMP, HS TROP, BNP #### [address] Occult Blood,Urine Negative Normal Negative [facility] Comment on above: Order Comment: Name Collection Type:: Clean-Voided Midstream Result Comment: PERF ORMED BY: [place] [address] PATHOLOGIST ENERGY AUDITOR EYAD HOWARD M.D. Performed By: #### C BC, CMP, HS TROP, BNP #### [address] pH (U) 7.5 [pH] Normal 5.0-9.0 [facility] Comment on above: Order Comment: Name Collection Type:: Clean-Voided Midstream Performed By: #### C BC, CMP, HS TROP, BNP #### [address] Protein,Urine Negative Normal Negative [facility] Comment on above: Order Comment: Name Collection Type:: Clean-Voided Midstream Performed By: #### C BC, CMP, HS TROP, BNP #### [address] Specificy [place],Urine 1.023 Normal 1.001-1.030 [facility] Comment on above: Order Comment: Name Collection Type:: Clean-Voided Midstream Performed By: #### C BC, CMP, HS TROP, BNP #### [address] Urobilinogen,Urine Normal Normal Normal [facility] Comment on above: Order Comment: Name Collection Type:: Clean-Voided Midstream Performed By: #### C BC, CMP, HS TROP, BNP #### [address] Urinalysis - AUTOMATEDon Appearance (U) CLEAR [employer] Other Bilirubin Ql (U) Negative [employer] Other Color (U) YELLOW [employer] Other Glucose Ql (U) Negative [employer] Other Hemoglobin Ql (U) Negative [employer] Other Ketones Ql (U) Negative [employer] Other Leukocyte esterase Test strip Ql (U) Negative [employer] Other Nitrite Ql (U) Negative [employer] Other pH (U) 6.0 [pH] [employer] Other Protein Ql (U) Negative [employer] Other Specific gravity (U) [Rel density] 1.010 [employer] Other Urobilinogen (U) [Mass/Vol] 0.2 mg/dL [employer] Other Urinalysis - AUTOMATED [employer] Other Vital Signs Date Time Vital Sign Value Performing Clinician Facility 02-25-2023 13:00-0500 Body temperature 98.2 [degF] Vivian Espinoza MD Work Phone: [email or web address] 02-25-2023 13:00-0500 Diastolic blood pressure 81 mm[Hg] Vivian Espinoza MD Work Phone: [email or web address] 02-25-2023 13:00-0500 Heart rate 79 /min Vivian Espinoza MD Work Phone: [email or web address] 02-25-2023 13:00-0500 Respiratory rate 18 /min Vivian Espinoza MD Work Phone: [email or web address] 02-25-2023 13:00-0500 SaO2% (BldA) [Mass fraction] 97 % Vivian Espinoza MD Work Phone: [email or web address] 02-25-2023 13:00-0500 Systolic blood pressure 125 mm[Hg] Vivian Espinoza MD Work Phone: [email or web address] 02-16-2023 22:54-0500 SaO2% (BldA) [Mass fraction] 96.1 % [facility] 02-16-2023 03:00-0500 Body height 167.6 cm [facility] 02-16-2023 03:00-0500 Body mass index (BMI) [Ratio] 42.52 kg/m2 [facility] 02-16-2023 03:00-0500 Body weight 119.5 kg Vivian Espinoza MD Work Phone: [email or web address] 02-15-2023 20:06-0500 Body temperature 97.52 [degF] Justice Ghotrae [facility] 02-15-2023 20:06-0500 Diastolic blood pressure 63 mm[Hg] Justice Sukhwinder [facility] 02-15-2023 20:06-0500 Heart rate 70 /min Justice Sukhwinder [facility] 02-15-2023 20:06-0500 Mean blood pressure 76 mm[Hg] Justice Sukhwinder [facility] 02-15-2023 20:06-0500 Respiratory rate 18 /min Justice Sukhwinder [facility] 02-15-2023 20:06-0500 SaO2% (BldA) [Mass fraction] 94 % Justice Sukhwinder [facility] 02-15-2023 20:06-0500 Systolic blood pressure 101 mm[Hg] Justice Sukhwinder [facility] 02-15-2023 20:00-0500 Diastolic blood pressure 74 mm[Hg] Justice Sukhwinder [facility] 02-15-2023 20:00-0500 Heart rate 63 /min Justice Sukhwinder [facility] 02-15-2023 20:00-0500 Hourly Rounding Justice Ghotrae [facility] 02-15-2023 20:00-0500 Promise to Return Justice Ghotrae [facility] 02-15-2023 20:00-0500 SaO2% (BldA) [Mass fraction] 100 % Justice Sukhwinder [facility] 02-15-2023 20:00-0500 Systolic blood pressure 112 mm[Hg] Justice Sukhwinder [facility] 02-15-2023 19:57-0500 Diastolic blood pressure 78 mm[Hg] Justice Sukhwinder [facility] 02-15-2023 19:57-0500 Heart rate 101 /min Justice Sukhwinder [facility] 02-15-2023 19:57-0500 Mean blood pressure 90 mm[Hg] Justice Sukhwinder [facility] 02-15-2023 19:57-0500 Respiratory rate 14 /min Justice Sukhwinder [facility] 02-15-2023 19:57-0500 SaO2% (BldA) [Mass fraction] 98 % Justice Sukhwinder [facility] 02-15-2023 19:57-0500 Systolic blood pressure 113 mm[Hg] Justice Sukhwinder [facility] 02-15-2023 19:47-0500 Heart rate 85 /min Justice Sukhwinder [facility] 02-15-2023 19:47-0500 Mean blood pressure 49 mm[Hg] Justice Sukhwinder [facility] 02-15-2023 19:47-0500 Respiratory rate 14 /min Justice Pretty [facility] 02-15-2023 19:34-0500 Blood Pressure Location Justice Pretty [facility] 02-15-2023 19:34-0500 Body temperature 97.52 [degF] Justice Ghotrae [facility] 02-15-2023 19:34-0500 Heart rate 68 /min Justice Ghotrae [facility] 02-15-2023 19:19-0500 Heart rate 67 /min Justice Ghotrae [facility] 02-15-2023 19:00-0500 Hourly Rounding Justice Ghotrae [facility] 02-15-2023 19:00-0500 Promise to Return Justice Pretty [facility] 02-15-2023 18:45-0500 Body temperature 97.52 [degF] Justice Ghotrae [facility] 02-15-2023 18:17-0500 Body temperature 97.52 [degF] Justice Ghotrae [facility] 02-15-2023 18:00-0500 Hourly Rounding Justice Pretty [facility] 02-15-2023 18:00-0500 Promise to Return Justice Pretty [facility] 02-15-2023 16:28-0500 Body temperature 97.88 [degF] Justice Ghotrae [facility] 08-30-2022 08:53-0400 Body height 167.64 cm Karina Guardadoon Work Phone: [facility] DO Work Phone: 08-30-2022 08:53-0400 Body mass index (BMI) [Ratio] 38.74 kg/m2 Karina Lisa Ramón Work Phone: [facility] DO Work Phone: 08-30-2022 08:53-0400 Body surface area Derived from formula 2.16 m2 Karina Lisa Ramón Work Phone: [facility] DO Work Phone: 08-30-2022 08:53-0400 Body weight 108.86 kg Karina Lisa Ramón Work Phone: [facility] DO Work Phone: 08-30-2022 08:53-0400 Diastolic blood pressure 62 mm[Hg] Karina Lisa Ramón Work Phone: [facility] DO Work Phone: 08-30-2022 08:53-0400 Heart rate 55 /min Karina Lisa Ramón Work Phone: [facility] DO Work Phone: 08-30-2022 08:53-0400 Systolic blood pressure 128 mm[Hg] Karina Lisa Ramón Work Phone: [facility] DO Work Phone: 08-13-2022 13:21-0400 Body height 167.64 cm Karina Lisa Ramón Work Phone: [facility] DO Work Phone: 08-13-2022 13:21-0400 Body mass index (BMI) [Ratio] 39.87 kg/m2 Karina Lisa Ramón Work Phone: [facility] DO Work Phone: 08-13-2022 13:21-0400 Body surface area Derived from formula 2.19 m2 Karina Lisa Ramón Work Phone: [facility] DO Work Phone: 08-13-2022 13:21-0400 Body weight 112.04 kg Karina Guardadoon Work Phone: [facility] DO Work Phone: 08-13-2022 13:21-0400 Diastolic blood pressure 70 mm[Hg] Karina Guardadoon Work Phone: [facility] DO Work Phone: 08-13-2022 13:21-0400 Heart rate 70 /min Karina Guardadoon Work Phone: [facility] DO Work Phone: 08-13-2022 13:21-0400 Systolic blood pressure 136 mm[Hg] Karina Guardadoon Work Phone: [facility] DO Work Phone: 07-05-2022 09:08-0400 Body height 167.64 cm Karina Guardadoon Work Phone: [facility] 600 DO Work Phone: 07-05-2022 09:08-0400 Body mass index (BMI) [Ratio] 39.54 kg/m2 Karina Melgar Work Phone: [facility] DO Work Phone: 07-05-2022 09:08-0400 Body surface area Derived from formula 2.18 m2 Karina Melgar Work Phone: [facility] DO Work Phone: 07-05-2022 09:08-0400 Body weight 111.13 kg Karina Melgar Work Phone: [facility] DO Work Phone: 07-05-2022 09:08-0400 Diastolic blood pressure 70 mm[Hg] Karina Melgar Work Phone: [facility] DO Work Phone: 07-05-2022 09:08-0400 Heart rate 72 /min Karina Lisa Ramón Work Phone: [facility] DO Work Phone: 07-05-2022 09:08-0400 Systolic blood pressure 138 mm[Hg] Karina Lisa Ramón Work Phone: [facility] DO Work Phone: 06-20-2022 16:24-0400 Body height 167.64 cm Karina Guardadoon Work Phone: [facility] DO Work Phone: 06-20-2022 16:24-0400 Body mass index (BMI) [Ratio] 40.03 kg/m2 Karina Guardadoon Work Phone: [facility] DO Work Phone: 06-20-2022 16:24-0400 Body surface area Derived from formula 2.19 m2 Karina Melgar Work Phone: [facility] DO Work Phone: 06-20-2022 16:24-0400 Body weight 112.49 kg Karina Guardadoon Work Phone: [facility] DO Work Phone: 06-20-2022 16:24-0400 Diastolic blood pressure 102 mm[Hg] Karina Guardadoon Work Phone: [facility] DO Work Phone: 06-20-2022 16:24-0400 Heart rate 76 /min Karina Guardadoon Work Phone: [facility] DO Work Phone: 06-20-2022 16:24-0400 Systolic blood pressure 162 mm[Hg] Karina Lisa Ramón Work Phone: [facility] DO Work Phone: 05-10-2022 14:46-0400 Body height 167.64 cm Karina Lisa Ramón Work Phone: [facility] [place] Work Phone: 05-10-2022 14:46-0400 Body mass index (BMI) [Ratio] 40.19 kg/m2 Karina Lisa Ramón Work Phone: [facility] [place] Work Phone: 05-10-2022 14:46-0400 Body surface area Derived from formula 2.2 m2 Karina Lisa Ramón Work Phone: [facility] [place] Work Phone: 05-10-2022 14:46-0400 Body weight 112.95 kg Karina Lisa Ramón Work Phone: [facility] [place] Work Phone: 05-10-2022 14:46-0400 Diastolic blood pressure 80 mm[Hg] Karina Lisa Ramón Work Phone: [facility] [place] Work Phone: 05-10-2022 14:46-0400 Heart rate 61 /min Karina Lisa Ramón Work Phone: [facility] [place] Work Phone: 05-10-2022 14:46-0400 Systolic blood pressure 130 mm[Hg] Karina Lisa Ramón Work Phone: [facility] [place] Work Phone: 05-02-2022 13:26-0500 Body height 167.64 cm Karina Lisa Ramón Work Phone: [facility] DO Work Phone: 05-02-2022 13:26-0500 Body mass index (BMI) [Ratio] 40.19 kg/m2 Karina Lisa Ramón Work Phone: [facility] DO Work Phone: 05-02-2022 13:26-0500 Body surface area Derived from formula 2.2 m2 Karina Lisa Ramón Work Phone: [facility] DO Work Phone: 05-02-2022 13:26-0500 Body weight 112.95 kg Karina Lisa Ramón Work Phone: [facility] DO Work Phone: 05-02-2022 13:26-0500 Diastolic blood pressure 64 mm[Hg] Karina Lisa Ramón Work Phone: [facility] DO Work Phone: 05-02-2022 13:26-0500 Heart rate 62 /min Karina Lisa Ramón Work Phone: [facility] DO Work Phone: 05-02-2022 13:26-0500 Systolic blood pressure 116 mm[Hg] Karina Lisa Ramón Work Phone: [facility] DO Work Phone: 04-29-2022 11:48-0500 Body height 167.64 cm Karina Lisa Ramón Work Phone: [facility] DO Work Phone: 04-29-2022 11:48-0500 Body mass index (BMI) [Ratio] 40.09 kg/m2 Karina Lisa Ramón Work Phone: [facility] DO Work Phone: 04-29-2022 11:48-0500 Body surface area Derived from formula 2.19 m2 Karina Guardadoon Work Phone: [facility] 600 DO Work Phone: 04-29-2022 11:48-0500 Body weight 112.67 kg Karina Guardadoon Work Phone: [facility] 600 DO Work Phone: 04-29-2022 11:48-0500 Diastolic blood pressure 80 mm[Hg] Karina Guardadoon Work Phone: [facility] 600 DO Work Phone: 04-29-2022 11:48-0500 Heart rate 60 /min Karina Melgar Work Phone: [facility] 600 DO Work Phone: 04-29-2022 11:48-0500 Systolic blood pressure 122 mm[Hg] Karina Melgar Work Phone: [facility] 600 DO Work Phone: 04-18-2022 14:45-0500 Body height 167.64 cm Karina Melgar Other [facility] [employer] Other 04-18-2022 14:45-0500 Body mass index (BMI) [Ratio] 39.54 kg/m2 Karina Melgar Other [employer] [facility] [employer] Other 04-18-2022 14:45-0500 Body weight 111.13 kg Karina Melgar Other [employer] [facility] [employer] Other 04-18-2022 14:45-0500 Diastolic blood pressure 76 mm[Hg] Karina Melgar Other [facility] [employer] Other 04-18-2022 14:45-0500 Systolic blood pressure 122 mm[Hg] Karina Melgar Other [employer] Other 03-11-2022 18:35-0500 Diastolic blood pressure 79 mm[Hg] MD Karina Melgar Work Phone: [facility] 03-11-2022 18:35-0500 Heart rate 74 /min MD Karina Melgar Work Phone: [facility] 03-11-2022 18:35-0500 Respiratory rate 20 /min MD Karina Melgar Work Phone: [facility] 03-11-2022 18:35-0500 SaO2% (BldA) [Mass fraction] 97 % MD Karina Melgar Work Phone: [facility] 03-11-2022 18:35-0500 Systolic blood pressure 137 mm[Hg] MD Karina Melgar Work Phone: [facility] 03-11-2022 13:03-0500 Body height 167.64 cm MD Karina Melgar Work Phone: [facility] 03-11-2022 13:03-0500 Body temperature 98.7 [degF] MD Karina Melgar Work Phone: [facility] 03-11-2022 13:03-0500 Body weight 116 kg MD Karina Melgar Work Phone: [facility] 06-14-2021 11:15-0400 Body height 167.64 cm Shahriar [place] II Other [employer] Other 06-14-2021 11:15-0400 Body mass index (BMI) [Ratio] 40.02 kg/m2 Shahriar [place] II Other [employer] Other 06-14-2021 11:15-0400 Body weight 112.49 kg Shahriar Alejo II Other [employer] Other 05-24-2021 15:30-0400 Body height 167.64 cm Karina Melgar Other [employer] Other 05-24-2021 15:30-0400 Body mass index (BMI) [Ratio] 40.19 kg/m2 Karina Melgar Other [employer] Other 05-24-2021 15:30-0400 Body weight 112.95 kg Karina Melgar Other [employer] Other 05-24-2021 15:30-0400 Diastolic blood pressure 80 mm[Hg] Karina Melgar Other [employer] Other 05-24-2021 15:30-0400 Systolic blood pressure 132 mm[Hg] Karina Melgar Other [employer] Other 03-21-2021 15:00-0500 Body height 167.64 cm Shahriar [employer] Other [employer] Other 03-21-2021 15:00-0500 Body mass index (BMI) [Ratio] 40.51 kg/m2 Shahrair [place] II Other [employer] Other 03-21-2021 15:00-0500 Body weight 113.85 kg Shahriar [place] II Other [employer] Other 02-13-2021 15:45-0500 Body height 167.64 cm Karina Melgar Other [employer] Other 02-13-2021 15:45-0500 Diastolic blood pressure 80 mm[Hg] Karina Melgar Other [employer] Other 02-13-2021 15:45-0500 Systolic blood pressure 144 mm[Hg] Karina Melgar Other [employer] Other 01-29-2021 14:45-0500 Body height 167.64 cm Karina Melgar Other [employer] Other 01-29-2021 14:45-0500 Body mass index (BMI) [Ratio] 40.64 kg/m2 Karina Melgar Other [employer] Other 01-29-2021 14:45-0500 Body weight 114.22 kg Karina Melgar Other [employer] Other 01-29-2021 14:45-0500 Diastolic blood pressure 92 mm[Hg] Karina Melgar Other [employer] Other 01-29-2021 14:45-0500 SaO2% (BldA) [Mass fraction] 98 % Karina Melgar Other [employer] Other 01-29-2021 14:45-0500 Systolic blood pressure 148 mm[Hg] Karina Guardadoon Other [employer] Other Encounters Encounter Date Encounter Type Care Provider Facility Start: 02-21-2023 Evaluation and management of inpatient JUSTICE GHOTRAE Facility:[facility] Start: 02-18-2023 Evaluation and management of inpatient UNKNOWN PROVIDER Facility:[facility] Start: 02-18-2023 [facility] Start: 02-18-2023 ambulatory UNKNOWN PROVIDER Facili ty:[facility] Start: 02-18-2023 End: 02-18-2023 Subsequent hospital visit by physician Ip [employer] Cut[employer] Operator 3 [facility] Non Invasive Cardiology Start: 02-17-2023 Evaluation and management of inpatient UNKNOWN PROVIDER Facility:[facility] Start: 02-16-2023 Evaluation and management of inpatient JUSTICE PRETTY Facility:[facility] Start: 02-16-2023 Emergency department patient visit UNKNOWN PROVIDER Facility:[facility] Start: 02-15-2023 Emergency department patient visit UNKNOWN PROVIDER Facility:[facility] Start: 02-15-2023 End: 02-15-2023 ambulatory UNKNOWN PROVIDER Facility:[facility] Start: 02-15-2023 End: 02-25-2023 Evaluation and management of inpatient Vivian Espinoza MD Work Phone: [address] Start: 02-15-2023 End: 02-25-2023 Patient encounter status Vivian Espinoza MD Work Phone: [facility] Work Phone: Start: 02-15-2023 End: 02-16-2023 Emergency department patient visit Justice Pretty [place] Start: 02-15-2023 End: 02-15-2023 Emergency department patient visit Justice Pretty [facility] Start: 08-30-2022 Office outpatient vi sit 25 minutes Karina Melgar Work Phone: [facility] DO Work Phone: Start: 08-13-2022 ambulatory Christopher Porter Facilit y: Start: 08-02-2022 ambulatory Christopher Porter Facilit y: Start: 08-02-2022 End: 08-02-2022 ambulatory Christopher Porter [place] Start: 07-05-2022 ambulatory Christopher Porter Facilit y: Start: 07-05-2022 Office outpatient vi sit 25 minutes Karina Melgar Work Phone: [facility] DO Work Phone: Start: 06-20-2022 Patient encounter procedure Karina Melgar Work Phone: [facility] DO Work Phone: Start: 06-20-2022 ambulatory Christopher Waden Facilit y: Start: 06-12-2022 Chart Update Karina flyod Work Phone: [facility] DO Work Phone: Start: 06-11-2022 End: 06-11-2022 ambulatory Christopher Porter Facility:[facility] Start: 06-11-[address] Karina Melgar Facility:[id number] Start: 05-28-2022 Patient encounter procedure Karina Melgar Work Phone: [facility] DO Work Phone: Start: 05-10-2022 Patient encounter procedure Karina Melgar Work Phone: [facility] [place] Work Phone: Start: 05-10-2022 ambulatory Christopher Porter Facilit y: Start: 05-03-2022 AUDIT Karina Lisa Risih floyd Work Phone: [facility] DO Work Phone: Start: 05-02-2022 Patient encounter procedure Karina Melgar Work Phone: [facility] DO Work Phone: Start: 05-02-2022 ambulatory Christopher Porter Facilit y: Start: 04-29-2022 Office outpatient vi sit 25 minutes Karina Melgar Work Phone: [facility] DO Work Phone: Start: 04-29-2022 ambulatory Christopher Sheikh y: Start: 04-18-2022 End: 04-18-2022 ambulatory Karina Melgar Other [facility] [employer] Other Start: 04-18-2022 Office outpatient vi sit 15 minutes Karina Melgar [facility] Start: 03-29-2022 ambulatory Mae Rodrigez [place] [facility] Start: 03-27-2022 End: 03-27-2022 ambulatory Karina Melgar Facility:[facility] Start: 03-27-2022 End: 03-27-2022 Patient encounter procedure MD Karina Melgar Work Phone: [facility] Work Phone: Start: 03-27-2022 End: 03-27-2022 ambulatory MD Karina Melgar Work Phone: [facility] Work Phone: Start: 03-27-2022 Telephone encounter Sejal Delgadoz [facility] Start: 03-25-2022 End: 03-25-2022 ambulatory Sejal Delgadoz Other [employer] Other Start: 03-25-2022 Telephone encounter Sejal Nikolay [facility] Start: 03-21-2022 ambulatory Christopher Sheririck Sheikh y: Start: 03-14-2022 End: 03-14-2022 ambulatory Sejal Delgadoz Other [employer] Other Start: 03-14-2022 Telephone encounter Sejal Nikolay [facility] Start: 03-12-2022 End: 03-12-2022 ambulatory Karina Meglar Other [employer] Other Start: 03-12-2022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
[2023-03-03 09:27] LABS: INR 1.86
== END 2023-03-03 07:32 | disposition home or self-care (01) ==
LOC: LAB 07:31
PROVIDERS: PCP Family Medicine; Visit Provider Family Medicine
DX: I48.91 Unspecified atrial fibrillation (principal)
CPT/HCPCS: 36415; 85610

== ENCOUNTER 2023-03-05 08:47 | Outpatient (REF) | payer MEDICARE, SELFPAY ==
[2023-03-05 09:15] LABS: INR 1.89; Prothrombin Time 19.3 sec (9.0-11.6)
== END 2023-03-05 08:48 | disposition home or self-care (01) ==
LOC: LAB 08:47
PROVIDERS: PCP Family Medicine; Visit Provider Family Medicine
DX: Z98.890 Other specified postprocedural states (principal)
CPT/HCPCS: 36415; 85610

== ENCOUNTER 2023-03-07 00:55 | Outpatient (REF) | payer MEDICARE, SELFPAY ==
--- OUTSIDE RECORDS SUMMARY | 2023-03-07 01:04 | XMS_ITS | CCD ---
Author Name Unknown Address [address] [place] [address] Organization [facility] Care Team Providers Care Head Esthetician Name Role Phone No, Physician Primary Care Provider UnavailShahriar Frederick II Unavailable Shahriar Dhillon II Unavailable Karina Melgar Unavailable Lynn Gurrola Unavailable MD Karina Melgar Primary Care Provider DO Yo Blood Emergency Provider [phone] LISSETH Link Attending Provider Sejal Link Unavailable Karina Melgar Unavailable [phone] Unavailable Unavailable Unavailable Unavailable Karina Melgar Primary [...] Dr. Karina Melgar Primary Care Mariella vailable German, Christopher Attending Unavailable German, Christopher Referring Unavailable Ramón, Dr. Karina Abernathy Primary Care Mariella vailable German, Christopher Attending Unavailable German, Christopher Referring Unavailable Ramón, Dr. Karina Abernathy Primary Care Mariella vailable German, Christopher Attending Unavailable German, Christopher Attending Unavailable Nikolay, Ms. Sejal Leung [...] Mariella vailable KARINA MELGAR Primary Care Physician [phone] JUSTICE PRETTY Referring Unavailable RADHA SMALL Attending Unavailable REQUEST, IP OCCUPATIONAL THERAPY SERVICE Consult ing Unavailable ISACC ALICIA Admitting Unavailable REQUEST, IP PHYSICAL THERAPY SERVICE [...] e Unavailable Primary Care Provider Unavailabl e Justi, ACNP Mae Attending Unavailable Justi, ACNP Mae Referring Unavailable Justi, ACNP Mae Admitting Unavailable McGvickien, Christopher P Admitting Unavailable McGuinn, Christopher P Attending Unavailable McGuinn, Christopher P Referring Unavailable Sukhwinder, Justice Attending Unavailable Allergies Allergy Classification Reported Allergen(s) Allergy Type Date of Onset Reaction(s) Facility (1 source) No Known Medication Allergies; Translations: [No Known Medication Allergies] Propensity to adverse reactions (disorder) [facility] Repository Medications Current Medications Medication Drug Class(es) Dates Sig (Normalized) Sig (Original) acetaminophen 325 mg / HYDROcodone bitartrate 5 mg oral tablet (2 sources) Opioid Agonist Start: 07-28-2020 [place] 325 mg-5 mg oral tablet 1 tab(s), Oral, q6hr for pain, 12 tab(s), Refill(s) 0 Start Date: 07/28/20 Status: Ordered azithromycin 250 mg oral tablet (1 source) Macrolide Antimicrobial take 1 tablet by mouth twice daily azithromycin (ZITHROMAX) 250 MG tablet Take 250 mg by mouth 2 (two) times a day. 0 Active benzonatate 200 mg oral capsule (4 sources) Non-narcotic Antitussive Start: 08-01-2022 benzonatate 200 mg oral capsule Refills(s) 0 Start Date: 08/01/22 Status: Ordered Start: 03-11-2022 take 200 mg by mouth three times daily Benzonatate Active 200 MG PO Three times daily March 11, 2022 12:00am biotin 1 mg [...] 02-25-2023 docusate sodium 50 mg / sennosides, detention 8.6 mg oral tablet (3 sources) Start: [...] On 02/15/23 at 2303 MDI spacer adult (2 sources) Start: 01-31-2019 MDI spacer aleida lt 1 [...] Start: 06-14-2021 take 1 tablet by cuong every six hours as needed for pain [...] HFA 90 mcg/inh inhalation aerosol with adapter (2 sources) Start: 9 take 2 puff(s) by inhalation [...] MG Oral Tablet Take as directed by [facility] coumadin clinic Quantity: 0 Refills: 0 Ordered: [...] Start: 06-14-2021 take 2 tablets by mo ut every eight hours for pain Acetaminophen 500 [...] with spacer take 2 puff(s) by mo [facility] every four hours as needed ALBUTEROL [...] 1 capsule by mouth twice daily Iron Rff-[id number]-Jg-X-Cgbww Acid (Ferocon) 110-0.5 mg Capsule Discontinued 1 [...] 5:18pm Start: 06-14-2021 take 1 tablet by [facility] twice daily Aspirin 81 MG 1 tablet [...] FLUID BOLUS, 1 dose, On 02/16/23 at 1600 Start: 02-16-2023 End: 02-16-2023 take 1 dose intravenously every hour 500 mL, at 999 mL/hr, Intravenous, FLUID BOLUS, 1 dose, On 02/16/23 at 1500 Start: 02-16-2023 End: 02-19-2023 Intravenous, [...] (2,000 mg), Intravenous, ONCE, 1 dose, On Tu02/18/23 at 0700 Start: 02-16-2023 End: 02-16-2023 2 [...] DOS: 07/02/2021 May, Active polyethylene glycol 3350 93435 mg powder for oral solution (4 sources) Osmotic Laxative Start: 02-16-2023 17 g, Oral, D AILY, First dose on 02/16/23 at 0900, Until Discontinued Start: 06-14-2021 MiraLax 17 GM 1 packet mixed with 8 ounces of fluid Orally Once a day for 7 days Med to Bed Upon Discharge DOS: 07/02/2021 May, Active Probiotic PACK (2 sources) Probiotic PACK T STACIE DIRECTED. Quantity: 0 Refills: 0 Ordered: 30-Aug-2022 DO Active 12 hr propafenone hydrochloride 425 mg extended release oral capsule (16 sources) Antiarrhythmic Start: 02-16-2023 take 425 mg by mouth twice daily 425 mg, Oral, 2 TIMES DAILY, First dose (after last modification) on 02/16/23 at 2100, Until Discontinued Start: 07-05-2022 take 1 capsule by [facility] every twelve hours propafenone 425 mg oral [...] Active Start: 04-29-2022 take 1 capsule by [facility] every twelve hours Propafenone HCl ER 225 MG Oral Capsule Extended Release 12 Hour TAKE 1 CAPSULE EVERY 12 HOURS. Quantity: 180 Refills: 0 Ordered: 29-Apr-2022 Christopher Porter MD Start : 29-Apr-2022 Active new start Prostate Support TABS (10 sources) Prostate Support TABS TAKE 1 TABLET DAILY DIRECTED. Quantity: 0 Refills: 0 Ordered: 21-Mar-2022 DO Active Saw-Vit E-Sod Klw-Udq-Hcwv-Pyg (Prostate Health) 160-100-100 mg-unit-mcg Tablet (2 sources) Start: End: 3 take 1 capsule by mouth once daily Saw-Vit E-Sod Klf-Njd-Pdcq-Pyg (Prostate Health) 160-100-100 mg-unit-mcg Tablet Discontinued 1 CAP PO Daily July 27, 2017 11:00pm March 11, 2022 5:18pm sennosides, detention 8.6 mg oral tablet (1 source) Start: [...] on Fri02/17/23 at 1600, Until Discontinued Vit C-S.Pcpliz-Ltwjre-Xtwop Sd (Tart Bhagat) 44-123-59-75-20 mg Capsule (2 sources) Start: 07-28-2017 End: 08-09-2019 Vit C-S.Lswedt-Hlnzdi-Qfsbw Sd (Tart Bhagat) 41-619-11-75-20 mg Capsule Discontinued 1 CAP PO Twice [...] Date Documented Date Episodic/Chronic Cancer of prostate (19 sources) Malignant tumor of prostate; Translations: [Malignant [...] (current) use of other medications] Episodic Other aftercare (1 source) Drug monitoring done; Translations: [Encounter for therapeutic drug level monitoring] Episodic Other aftercare (1 source) Long-term current use of anticoagulant; Translations: [MCFP (current) use of anticoagulants] Episodic Other connective tissue disease (8 sources) [...] nutritional; endocrine; and metabolic disorders (2 sources) Severe obesity 01-31-2019 Chronic Pulmonary heart disease [...] 02-13-2021 Episodic Other aftercare (2 sources) Other [facility] (current) drug therapy Onset: 03-22-2021 Resolved: 06-14-2021 [...] Results Test Name Value Interpretation Reference Range Facil it Basic metabolic 2000 panelon 02-25-2023 Anion gap [Moles/Vol] 8 mmol/L Low 10 - 20 [facility] Calcium [Mass/Vol] 8.0 mg/dL Low 8.6 - 10. 3 mg/dL [facility] Chloride [Moles/Vol] 102 mmol/L 98 - 107 mmol/L [facility] CO2 [Moles/Vol] 30 mmol/L 21 - 31 mmol/L [facility] Creatinine [Mass/Vol] 0.64 mg/dL Low 0.70 - 1.30 mg/dL [facility] GFR/1.73 sq M.predicted CKD-EPI (S/P/Bld) [Vol rate/Area] 99 - PINF [facility] Glucose [Mass/Vol] 129 mg/dL High 74 - 109 mg/dL [facility] Interpretation and review of laboratory results Abnormal [facility] Potassium [Moles/Vol] 3.8 mmol/L 3.5 - 5.0 mmol/L [facility] Sodium [Moles/Vol] 136 mmol/L 136 - 145 mmol/L [facility] Urea nitrogen [Mass/Vol] 20 mg/dL 7 - 25 mg/dL [facility] CBC panel Auto (Bld)on 02-25 Erythrocyte distribution width (RBC) [Ratio] 16.3 % High 11.5 - 14.5 % [facility] Hematocrit (Bld) [Volume fraction] 27.5 % Low 41.0 - 53.0 % [facility] Hemoglobin (Bld) [Mass/Vol] 8.9 g/dL Low 13.9 - 16.3 g/dL [facility] Interpretation and review of laboratory results Abnormal [facility] MCH (RBC) [Entitic mass] 30.8 pg 26.0 - 34.0 pg [facility] MCHC (RBC) [Mass/Vol] 32.5 g/dL 32.0 - 35.9 g/dL [facility] MCV (RBC) [Entitic vol] 95 fL 80 - 100 fL [facility] Platelet mean volume (Bld) [Entitic vol] 8.0 fL 7.5 - 11.2 fL [facility] Platelets (Bld) [#/Vol] 376 10*3/uL 150 - 400 K/uL [facility] RBC (Bld) [#/Vol] 2.90 10*6/uL Low [facility] WBC (Bld) [#/Vol] 8.5 10*3/uL 4.5 - 11.5 K/uL [facility] MAGNESIUMon 02-25-2023 Magnesium [Mass/Vol] 1.9 mg/dL 1.6 - 2.8 mg/dL [facility] No Panel Informationon 02-25 Interpretation and review of laboratory results [facility] PHOS[facility] 02-25-2023 Phosphate [Mass/Vol] 2.9 mg/dL 2.3 - 4.2 mg/dL [facility] PROTHROMBIN TIME AND INRon 0 02-25-2023 INR Coag (PPP) [Relative time] 1.13 {INR} High 0.90 - 1.10 [facility] Interpretation and review of laboratory results Abnormal [facility] PT Coag (PPP) [Time] 12.6 s [facility] ANTI FXA-LMW HEPARINon 02-24 LMW Heparin Chromogenic method Qn (PPP) 0.32 IU/mL [facility] Basic metabolic 2000 panelon 02-24-2023 Anion gap [Moles/Vol] 9 mmol/L Low 10 - 20 [facility] Calcium [Mass/Vol] 7.7 mg/dL Low 8.6 - 10. 3 mg/dL [facility] Chloride [Moles/Vol] 101 mmol/L 98 - 107 mmol/L [facility] CO2 [Moles/Vol] 30 mmol/L 21 - 31 mmol/L [facility] Creatinine [Mass/Vol] 0.60 mg/dL Low 0.70 - 1.30 mg/dL [facility] GFR/1.73 sq M.predicted CKD-EPI (S/P/Bld) [Vol rate/Area] 101 - PINF [facility] Glucose [Mass/Vol] 98 mg/dL 74 - 109 mg/dL [facility] Interpretation and review of laboratory results Abnormal [facility] Potassium [Moles/Vol] 4.0 mmol/L 3.5 - 5.0 mmol/L [facility] Sodium [Moles/Vol] 136 mmol/L 136 - 145 mmol/L [facility] Urea nitrogen [Mass/Vol] 19 mg/dL 7 - 25 mg/dL [facility] CBC panel Auto (Bld)on 02-24 Erythrocyte distribution width (RBC) [Ratio] 15.4 % High 11.5 - 14.5 % [facility] Hematocrit (Bld) [Volume fraction] 25.2 % Low 41.0 - 53.0 % [facility] Hemoglobin (Bld) [Mass/Vol] 8.3 g/dL Low 13.9 - 16.3 g/dL [facility] Interpretation and review of laboratory results Abnormal [facility] MCH (RBC) [Entitic mass] 30.7 pg 26.0 - 34.0 pg [facility] MCHC (RBC) [Mass/Vol] 33.1 g/dL 32.0 - 35.9 g/dL [facility] MCV (RBC) [Entitic vol] 93 fL 80 - 100 fL [facility] Platelet mean volume (Bld) [Entitic vol] 7.6 fL 7.5 - 11.2 fL [facility] Platelets (Bld) [#/Vol] 320 10*3/uL 150 - 400 K/uL [facility] RBC (Bld) [#/Vol] 2.72 10*6/uL Low [facility] WBC (Bld) [#/Vol] 7.6 10*3/uL 4.5 - 11.5 K/uL [facility] MAGNESIUMon 02-24-2023 Magnesium [Mass/Vol] 1.9 mg/dL 1.6 - 2.8 mg/dL [facility] No Panel Informationon 02-24 Interpretation and review of laboratory results Normal [facility] PHOSPHORUSon 02-24-2023 Phosphate [Mass/Vol] 2.7 mg/dL 2.3 - 4.2 mg/dL [facility] Basic metabolic 2000 panelon 02-23-2023 Anion gap [Moles/Vol] 9 mmol/L Low 10 - 20 [facility] Calcium [Mass/Vol] 7.8 mg/dL Low 8.6 - 10. 3 mg/dL [facility] Chloride [Moles/Vol] 99 mmol/L 98 - 107 mmol/L [facility] CO2 [Moles/Vol] 32 mmol/L High 21 - 31 mmol/L [facility] Creatinine [Mass/Vol] 0.59 mg/dL Low 0.70 - 1.30 mg/dL [facility] GFR/1.73 sq M.predicted CKD-EPI (S/P/Bld) [Vol rate/Area] 102 - PINF [facility] Glucose [Mass/Vol] 88 mg/dL 74 - 109 mg/dL [facility] Interpretation and review of laboratory results Abnormal [facility] Potassium [Moles/Vol] 4.0 mmol/L 3.5 - 5.0 mmol/L [facility] Sodium [Moles/Vol] 136 mmol/L 136 - 145 mmol/L [facility] Urea nitrogen [Mass/Vol] 22 mg/dL 7 - 25 mg/dL [facility] CBC panel Auto (Bld)on 02-23 Erythrocyte distribution width (RBC) [Ratio] 15.3 % High 11.5 - 14.5 % [facility] Hematocrit (Bld) [Volume fraction] 26.6 % Low 41.0 - 53.0 % [facility] Hemoglobin (Bld) [Mass/Vol] 8.7 g/dL Low 13.9 - 16.3 g/dL [facility] Interpretation and review of laboratory results Abnormal [facility] MCH (RBC) [Entitic mass] 30.4 pg 26.0 - 34.0 pg [facility] MCHC (RBC) [Mass/Vol] 32.7 g/dL 32.0 - 35.9 g/dL [facility] MCV (RBC) [Entitic vol] 93 fL 80 - 100 fL [facility] Platelet mean volume (Bld) [Entitic vol] 8.7 fL 7.5 - 11.2 fL [facility] Platelets (Bld) [#/Vol] 285 10*3/uL 150 - 400 K/uL [facility] RBC (Bld) [#/Vol] 2.86 10*6/uL Low [facility] WBC (Bld) [#/Vol] 8.2 10*3/uL 4.5 - 11.5 K/uL [facility] 02-23-2023 Magnesium [Mass/Vol] 2.0 mg/dL 1.6 - 2.8 mg/dL [facility] No Panel Informationon 02-23 Interpretation and review of laboratory results Normal [facility] PHOSPHORUSon 02-23-2023 Phosphate [Mass/Vol] 2.6 mg/dL 2.3 - 4.2 mg/dL [facility] ANTI FXA-LMW HEPARINon 02-22 ANTI FXA-LMW HEPARIN ASSAY 0.48 IU/mL Normal [facility] Comment on above: Order Comment: The r ecommended therapeutic range for treatment of thrombosis with Low Molecular Weight Heparin is 0.5 - 1.0 IU/mLThe recommended range for VTE prophylaxis with Low Molecular Weight Heparin is 0.2 - 0.4 IU/mL. Performed By: #### T S #### [facility] [address] [place] [address], [id number] LMW Heparin Chromogenic method Qn (PPP) 0.48 IU/mL [facility] BASIC METABOLIC PANELon 01-26 Anion gap [Moles/Vol] 7 mmol/L Low 10-20 [facility] Comment on above: Performed By: #### 8 [id number] #### [facility]SE [facility] [address] [place], [address] Calcium [Mass/Vol] 7.7 mg/dL Low 8.6-10.3 [facility] Comment on above: Result Comment: Note updated reference ranges. Performed By: #### 8 [id number] #### NURSING GLUCOSE PROGRAM [address] [place], [address] Chloride [Moles/Vol] 101 mmol/L Normal 98-107 [facility] Comment on above: Result Comment: Note updated reference ranges. Performed By: #### 8 [id number] #### NURSING GLUCOSE PROGRAM [address] [place], [address] CO2 [Moles/Vol] 33 mmol/L High 21-31 [facility] Comment on above: Result Comment: Note updated reference ranges. Performed By: #### 8 2948 #### NURSING GLUCOSE PROGRAM [address] [place], [address] Creatinine [Mass/Vol] 0.60 mg/dL Low 0.70-1.30 [facility] Comment on above: Result Comment: Note updated reference ranges. Performed By: #### 8 2948 #### NURSING GLUCOSE PROGRAM [address] [place], [address] ESTIMATED GFR (CKD-EPI) 101 mL/min/1.73sqm Normal >=60 [facility] Comment on above: Result Comment: 2020 CKD EPI Equation using Creatinine without Race Comment: Estimated glomerular filtration rate (eGFR) is calculated without a race coefficient. Values should be interpreted in the context of the patient's full clinical presentation. Reference: 1. Clayton C, Lan M, Alissa DC, et al.. A Unifying Approach for GFR Estimation: Recommendations of the NKF-ASN Task Force on Reassessing the Inclusion of Race in Diagnosing Kidney Disease. [place] Journal of Kidney Diseases 2021;79(2):268-88.e1. 2. N Engl J Med 1 Vol. 385 Issue 19 Pages 0058-8443 Performed By: #### 8 2948 #### NURSING GLUCOSE PROGRAM [address] [place], [address] Glucose [Mass/Vol] 105 mg/dL Normal 74-109 [facility] Comment on above: Performed By: #### 8 2948 #### NURSING GLUCOSE PROGRAM [address] [place], [address] Potassium [Moles/Vol] 3.6 mmol/L Normal 3.5-5.0 [facility] Comment on above: Result Comment: Note updated reference ranges. Note updated reference ranges. Performed By: #### 8 [id number] #### NURSING GLUCOSE PROGRAM [address] [place], [address] Sodium [Moles/Vol] 137 mmol/L Normal 136-145 [facility] Comment on above: Result Comment: Note updated reference ranges. Performed By: #### 8 [id number] #### NURSING GLUCOSE PROGRAM [address] [place], [address] Urea nitrogen [Mass/Vol] 23 mg/dL Normal 7-25 [facility] Comment on above: Result Comment: Note updated reference ranges. Performed By: #### 8 2948 #### NURSING GLUCOSE PROGRAM [address] [place], [address] Basic metabolic 2000 panelon 02-22-2023 Anion gap [Moles/Vol] 7 mmol/L Low 10 - 20 [facility] Calcium [Mass/Vol] 7.7 mg/dL Low 8.6 - 10. 3 mg/dL [facility] Chloride [Moles/Vol] 101 mmol/L 98 - 107 mmol/L [facility] CO2 [Moles/Vol] 33 mmol/L High 21 - 31 mmol/L [facility] Creatinine [Mass/Vol] 0.60 mg/dL Low 0.70 - 1.30 mg/dL [facility] GFR/1.73 sq M.predicted CKD-EPI (S/P/Bld) [Vol rate/Area] 101 - PINF [facility] Glucose [Mass/Vol] 105 mg/dL 74 - 109 mg/dL [facility] Interpretation and review of laboratory results Abnormal [facility] Potassium [Moles/Vol] 3.6 mmol/L 3.5 - 5.0 mmol/L [facility] Sodium [Moles/Vol] 137 mmol/L 136 - 145 mmol/L [facility] Urea nitrogen [Mass/Vol] 23 mg/dL 7 - 25 mg/dL [facility] CBC panel Auto (Bld)on 02-22 Erythrocyte distribution width (RBC) [Ratio] 15.4 % High 11.5 - 14.5 % [facility] Hematocrit (Bld) [Volume fraction] 23.9 % Low 41.0 - 53.0 % [facility] Hemoglobin (Bld) [Mass/Vol] 8.0 g/dL Low 13.9 - 16.3 g/dL [facility] Interpretation and review of laboratory results Abnormal [facility] MCH (RBC) [Entitic mass] 30.7 pg 26.0 - 34.0 pg [facility] MCHC (RBC) [Mass/Vol] 33.3 g/dL 32.0 - 35.9 g/dL [facility] MCV (RBC) [Entitic vol] 92 fL 80 - 100 fL [facility] Platelet mean volume (Bld) [Entitic vol] 8.7 fL 7.5 - 11.2 fL [facility] Platelets (Bld) [#/Vol] 227 10*3/uL 150 - 400 K/uL [facility] RBC (Bld) [#/Vol] 2.60 10*6/uL Low [facility] WBC (Bld) [#/Vol] 7.6 10*3/uL 4.5 - 11.5 K/uL M [facility] COMPLETE BLOOD COUNTon 02-22 Erythrocyte distribution width (RBC) [Ratio] 15.4 % High 11.5-14.5 [facility] Comment on above: Performed By: #### T S #### [facility] [address] [place] [address], Hematocrit (Bld) [Volume fraction] 23.9 % Low 41.0-53.0 [facility] Comment on above: Performed By: #### T S #### [facility] [address] [place] [address], Hemoglobin (Bld) [Mass/Vol] 8.0 g/dL Low 13.9-16.3 [facility] Comment on above: Performed By: #### T S #### [facility] [address] [place] [address], MCH (RBC) [Entitic mass] 30.7 pg Normal 26.0-34.0 [facility] Comment on above: Performed By: #### T S #### [facility] [address] [place], [place], MCHC (RBC) [Mass/Vol] 33.3 g/dL Normal 32.0-35.9 [facility] Comment on above: Performed By: #### T S #### [facility] [address] [place], [place], MCV (RBC) [Entitic vol] 92 fL Normal 80-100 [facility] Comment on above: Performed By: #### T S #### [facility] [address] [place], [place], Platelet mean volume (Bld) [Entitic vol] 8.7 fL Normal 7.5-11.2 [facility] Comment on above: Performed By: #### T S #### [facility] [address] [place], [place], Platelets (Bld) [#/Vol] 227 10*3/uL Normal 150-400 [facility] Comment on above: Performed By: #### T S #### [facility] [address] [place], [place], RBC (Bld) [#/Vol] 2.60 10*6/uL Low 4.50-5.90 [facility] Comment on above: Performed By: #### T S #### [facility] [address] [place], [place], WBC (Bld) [#/Vol] 7.6 10*3/uL Normal 4.5-11.5 [facility] Comment on above: Performed By: #### T S #### [facility] [address] [place], [place], Care Plan Noteon 02-22-2023 Dietary Director Authentication Interface Message Text Problem: Routine Care: [...] and once discontinued Outcome: Progressing Normal [facility] MAGNESIUMon 02-22-2023 Magnesium [Mass/Vol] 2.0 mg/dL Normal 1.6-2.8 [facility] Comment on above: Performed By: #### 8 [id number] #### NURSING GLUCOSE PROGRAM [address] [place], [address] Magnesium [Mass/Vol] 2.0 mg/dL 1.6 - 2.8 mg/dL [facility] No Panel Informationon 02-22 Interpretation and review of laboratory results Normal [facility] PHOSPHORUSon 02-22-2023 Phosphate [Mass/Vol] 2.8 mg/dL Normal 2.3-4.2 [facility] Comment on above: Performed By: #### 8 2948 #### NURSING GLUCOSE PROGRAM [address] [facility] [place], [address] Phosphate [Mass/Vol] 2.8 mg/dL 2.3 - 4.2 mg/dL [facility] BASIC METABOLIC PANELon 12-2 Anion gap [Moles/Vol] 9 mmol/L Low 10-20 [facility] Comment on above: Performed By: #### 8 2948 #### NURSING GLUCOSE PROGRAM [address] [place], [address] Calcium [Mass/Vol] 7.5 mg/dL Low 8.6-10.3 [facility] Comment on above: Result Comment: Note updated reference ranges. Performed By: #### 8 2948 #### NURSING GLUCOSE PROGRAM [address] [place], [address] Chloride [Moles/Vol] 100 mmol/L Normal 98-107 [facility] Comment on above: Result Comment: Note updated reference ranges. Performed By: #### 8 2948 #### NURSING GLUCOSE PROGRAM [address] [place], [address] CO2 [Moles/Vol] 33 mmol/L High 21-31 [facility] Comment on above: Result Comment: Note updated reference ranges. Performed By: #### 8 2948 #### NURSING GLUCOSE PROGRAM [address] [place], [address] Creatinine [Mass/Vol] 0.65 mg/dL Low 0.70-1.30 [facility] Comment on above: Result Comment: Note updated reference ranges. Performed By: #### 8 2948 #### NURSING GLUCOSE PROGRAM [address] [place], [address] ESTIMATED GFR (CKD-EPI) 99 mL/min/1.73sqm Normal >=60 [facility] Comment on above: Result Comment: 2020 [...] Inclusion of Race in Diagnosing Kidney Disease. [place] Journal of Kidney Diseases 2021;79(2):268-88.e1. 2. N Engl J Med 2021 Vol. 385 Issue 19 Pages 0283-5071 Performed By: #### 8 2948 #### NURSING GLUCOSE PROGRAM [address] [place], [address] Glucose [Mass/Vol] 104 mg/dL Normal 74-109 [facility] Comment on above: Performed By: #### 8 2948 #### NURSING GLUCOSE PROGRAM [address] [place], [address] Potassium [Moles/Vol] 3.5 mmol/L Normal 3.5-5.0 [facility] Comment on above: Result Comment: Note updated reference ranges. Note updated reference ranges. Performed By: #### 8 2948 #### NURSING GLUCOSE PROGRAM [address] [place], [address] Sodium [Moles/Vol] 138 mmol/L Normal 136-145 [facility] Comment on above: Result Comment: Note updated reference ranges. Performed By: #### 8 2948 #### NURSING GLUCOSE PROGRAM [address] [place], [address] Urea nitrogen [Mass/Vol] 24 mg/dL Normal 7-25 [facility] Comment on above: Result Comment: Note updated reference ranges. Performed By: #### 8 [id number] #### NURSING GLUCOSE PROGRAM [address] [place], [address] BLOOD CULTUREon 02-21-2023 Bacteria identified Cx Nom (Bld) No Growth [facility] Interpretation and review of laboratory results Normal [facility] Basic metabolic 2000 panelon 02-21-2023 Anion gap [Moles/Vol] 9 mmol/L Low 10 - 20 [facility] Calcium [Mass/Vol] 7.5 mg/dL Low 8.6 - 10. 3 mg/dL [facility] Chloride [Moles/Vol] 100 mmol/L 98 - 107 mmol/L [facility] CO2 [Moles/Vol] 33 mmol/L High 21 - 31 [facility] Creatinine [Mass/Vol] 0.65 mg/dL Low 0.70 - 1.30 mg/dL [facility] GFR/1.73 sq M.predicted CKD-EPI (S/P/Bld) [Vol rate/Area] 99 - PINF [facility] Glucose [Mass/Vol] 104 mg/dL 74 - 109 mg/dL [facility] Interpretation and review of laboratory results Abnormal [facility] Potassium [Moles/Vol] 3.5 mmol/L 3.5 - 5.0 mmol/L [facility] Sodium [Moles/Vol] 138 mmol/L 136 - 145 mmol/L [facility] Urea nitrogen [Mass/Vol] 24 mg/dL 7 - 25 mg/dL [facility] CBC panel Auto (Bld)on 02-21 Erythrocyte distribution width (RBC) [Ratio] 14.5 % 11.5 - 14.5 % [facility] Hematocrit (Bld) [Volume fraction] 21.8 % Low 41.0 - 53.0 % [facility] Hemoglobin (Bld) [Mass/Vol] 7.6 g/dL Low 13.9 - 16.3 g/dL [facility] Interpretation and review of laboratory results Abnormal [facility] MCH (RBC) [Entitic mass] 31.5 pg 26.0 - 34.0 pg [facility] MCHC (RBC) [Mass/Vol] 34.6 g/dL 32.0 - 35.9 g/dL [facility] MCV (RBC) [Entitic vol] 91 fL 80 - 100 fL [facility] Platelet mean volume (Bld) [Entitic vol] 8.3 fL 7.5 - 11.2 fL [facility] Platelets (Bld) [#/Vol] 199 10*3/uL 150 - 400 K/uL [facility] RBC (Bld) [#/Vol] 2.40 10*6/uL [facility] WBC (Bld) [#/Vol] 9.6 10*3/uL 4.5 - 11.5 K/uL [facility] COMPLETE BLOOD COUNTon 02-21 Erythrocyte distribution width (RBC) [Ratio] 14.5 % Normal 11.5-14.5 [facility] Comment on above: Performed By: #### T S #### [facility] [address] [place] [address], Hematocrit (Bld) [Volume fraction] 21.8 % Low 41.0-53.0 [facility] Comment on above: Performed By: #### T S #### [facility] [address] [place], [place], Hemoglobin (Bld) [Mass/Vol] 7.6 g/dL Low 13.9-16.3 [facility] Comment on above: Performed By: #### T S #### S [facility]OLOG[facility] LABORATORY [address] [place], [place], MCH (RBC) [Entitic mass] 31.5 pg Normal 26.0-34.0 [facility] Comment on above: Performed By: #### T S #### S [facility]OLOG[facility] LABORATORY [address] [place], [place], MCHC (RBC) [Mass/Vol] 34.6 g/dL Normal 32.0-35.9 [facility] Comment on above: Performed By: #### T S #### S [facility] LABORATORY [address] [place], [place], MCV (RBC) [Entitic vol] 91 fL Normal 80-100 [facility] Comment on above: Performed By: #### T S #### [facility] [address] [place], [place], Platelet mean volume (Bld) [Entitic vol] 8.3 fL Normal 7.5-11.2 [facility] Comment on above: Performed By: #### T S #### S [facility] LABORATORY [address] [place], [place], Platelets (Bld) [#/Vol] 199 10*3/uL Normal 150-400 [facility] Comment on above: Performed By: #### T S #### S [facility] LABORATORY [address] [place], [place], RBC (Bld) [#/Vol] 2.40 10*6/uL Low 4.50-5.90 [facility] Comment on above: Performed By: #### T S #### S [facility]OLOG[facility] LABORATORY [address] [place], [place], WBC (Bld) [#/Vol] 9.6 10*3/uL Normal 4.5-11.5 [facility] Comment on above: Performed By: #### T S #### S [facility]OLOG[facility] LABORATORY [address] [place], [place], Care Plan Noteon 02-21-2023 Dietary Director Authentication Interface Message Text Problem: Routine Care: [...] and once discontinued Outcome: Progressing Normal [facility] GLUCOSE, FINGERSTICK-IN OFFI CEon 02-21-2023 Glucose [Mass/Vol] 144 mg/dL High 80-116 [facility] Comment on above: Performed By: #### [id number] #### NURSING GLUCOSE PROGRAM [address] [place] [address], [id number] Glucose [Mass/Vol] 144 mg/dL High 80 - 116 mg/dL [facility] Interpretation and review of laboratory results Abnormal [facility] MAGNESIUMon 02-21-2023 Magnesium [Mass/Vol] 1.9 mg/dL Normal 1.6-2.8 [facility] Comment on above: Performed By: #### T S #### [facility] [address] [place], [place], Magnesium [Mass/Vol] 1.9 mg/dL 1.6 - 2.8 mg/dL [facility] No Panel Informationon 02-21 Interpretation and review of laboratory results Normal [facility] PHOSPHORUSon 02-21-2023 Phosphate [Mass/Vol] 2.3 mg/dL Normal 2.3-4.2 [facility] Comment on above: Performed By: #### T S #### [facility] [address] [place], [place], Phosphate [Mass/Vol] 2.3 mg/dL 2.3 - 4.2 mg/dL [facility] Procedureson 02-21-2023 Dietary Director Authentication Interface Message Text Upper Extremities Venous Duplex [address] [place], [place] [address] Status:Open Demographics Patient name: JUAN Leung Gender: Male Date of : 1950 Age: 72 year(s) Procedure Information Procedure date: 02/21/2023 2:15 PM Procedure type: Vascular Proc. sub type: Veins, Upper Extremities Veins, LIMITED DUPLEX VEIN SCAN UE Accession no: [id number] Patient status: Routine Study location: Portable Technical quality: Poor visualization Limitation reason: Poor acoustical window Procedure Staff Referring Physician: SUKHWINDER BRIAN Applications Intern: Alex Castañeda RVT Interpreting physician: NATAN Ceja MD Indications Pain, edema, discoloration. Risk Factors Additional comments: No significant history Page 1/2 JUAN Leung 1950 [id number] 02/21/2023 2:15 PM Upper Extremities Venous Duplex [...] jugular vein. Page 2/2 JUAN Leung 1950 [id number] 02/21/2023 2:15 PM Invalid Interpretation Code [facility] Progress Noteson 02-21-2023 Dietary Director Authentication Interface Message Text Preliminary Vascular Lab Report Duplex Left Upper Extremity Vein Scan No evidence deep vein thrombus left upper extremity, official to follow report to follow. Masoud Castañeda Kimberly Normal [facility] Dietary Director Authentication Interface Message Text Pt is rec for SNF Pt was denied from [facility] due to no available bed. [facility] will like updates Friday before deciding to clinically accept. Pt is still pending med readiness Pt will not need precert SW will continue to follow Aj BRASHER,READINESS PARAPROFESSIONAL Normal [facility] Dietary Director Authentication Interface Message Text At 19:40 patient [...] baseline. Will continue to monitor. Normal [facility] URINALYSIS WITH REFLEX CULTU RE PERFORMABLEon 02-21-2023 Glucose Ql (U) Negative Normal Negative [facility] Comment on above: Order Comment: A [...] By: #### M JUDITH Harper8, PHOS #### S PATHOLOGY LABORATORY [address] [place] [address], Protein (U) [Mass/Vol] 30 mg/dL Abnormal Negative [...] By: #### Jennifer Harper CH8, PHOS #### [facility] [address] [place] [address], U APPEAR Clear Normal Clear [facility] [...] Meredith CH8, PHOS #### S [facility] LAB[facility]ATORY [address] [place] [address], U BILI Negative Normal Negative [facility] [...] By: #### M Meredith, CH8, PHOS #### [facility] [address] [place] [address], U BLOOD Negative Normal Negative [facility] Comment on above: Order Comment: A [...] Meredith, CH8, PHOS #### S [facility] LAB[facility]ATORY [address] [place] [address], U COLOR Yellow Normal Colorless [facility] Comment on above: Order Comment: A [...] UTI around 50%) Performed By: #### M G, CH8, PHOS #### [facility] [address] [place], [place], U KETONE Negative Normal Negative [facility] Comment on above: Order Comment: A [...] Meredith CH8, PHOS #### [facility] [address] [place] [address], U LEUK Negative Normal Negative [facility] Comment on above: Order Comment: A [...] Meredith CH8, PHOS #### S [facility] LAB[facility]ORY [address] [place] [address], U MUCOUS Present Normal [facility] Comment on above: Order Comment: A [...] Meredith CH8, PHOS #### [facility] [address] [place] [address], U NITRITE Negative Normal Negative [facility] Comment on above: Order Comment: A [...] By: #### M JUDITH Harper8, PHOS #### S [facility] LAB[facility] [address] [place], [place], U PH 6.5 Normal 5.0-8.0 [facility] Comment on above: Order Comment: A [...] By: #### Jennifer Harper CH8, PHOS #### S [facility] LAB[facility]ORY [address] [place], [place], U RBC 3-5 Abnormal 0-2 [facility] Comment on above: Order Comment: A [...] By: #### Jennifer Harper CH8, PHOS #### [facility] [address] [place], [place], U SG 1.026 Normal <=1.030 [facility] Comment on above: Order Comment: A [...] ASIA Freitas, PHOS #### S [facility] LAB[facility] [address] [place] [address], U UROBILI 2.0 mg/dL Abnormal Negative [facility] Comment on above: Order Comment: A [...] ASIA Freitas, PHOS #### S [facility] LAB[facility]ATORY [address] [place] [address], U WBC 3-5 Abnormal 0-2 [facility] Comment on above: Order Comment: A [...] ASIA Freitas, PHOS #### S [facility] LABORATORY [address] [place] [address], BASIC METABOLIC PANELon 12-2 Anion gap [Moles/Vol] 12 mmol/L Normal 10-20 [facility] Comment on above: Performed By: #### C BC #### S [facility] LAB[facility] [address] [place], [place], Calcium [Mass/Vol] 7.5 mg/dL Low 8.6-10.3 [facility] Comment on above: Result Comment: Note updated reference ranges. Performed By: #### C BC #### [facility] [address] [place], [place], Chloride [Moles/Vol] 99 mmol/L Normal 98-107 [facility] Comment on above: Result Comment: Note updated reference ranges. Performed By: #### C BC #### S [facility] [address] [place], [place], CO2 [Moles/Vol] 29 mmol/L Normal 21-31 [facility] Comment on above: Result Comment: Note updated reference ranges. Performed By: #### C BC #### [facility] [address] [place], [place], Creatinine [Mass/Vol] 0.81 mg/dL Normal 0.70-1.30 [facility] Comment on above: Result Comment: Note updated reference ranges. Performed By: #### C BC #### [facility] [address] [place], [place], ESTIMATED GFR (CKD-EPI) 93 mL/min/1.73sqm Normal >=60 [facility] Comment on above: Result Comment: 2020 [...] Inclusion of Race in Diagnosing Kidney Disease. Czech Journal of Kidney Diseases 2021;79(2):268-88.e1. 2. N Engl J Med 1 Vol. 385 Issue 19 Pages 3437-1547 Performed By: #### C BC #### [facility] [address] [place], [place], Glucose [Mass/Vol] 126 mg/dL High 74-109 [facility] Comment on above: Performed By: #### C BC #### [facility] [address] [place] [address], Potassium [Moles/Vol] 3.3 mmol/L Low 3.5-5.0 [facility] Comment on above: Result Comment: Note updated reference ranges. Note updated reference ranges. Performed By: #### C BC #### [facility] [address] [place] [address], Sodium [Moles/Vol] 137 mmol/L Normal 136-145 [facility] Comment on above: Result Comment: Note updated reference ranges. Performed By: #### C BC #### S [facility] LAB[facility] [address] [place] [address], Urea nitrogen [Mass/Vol] 26 mg/dL High 7-25 [facility] Comment on above: Result Comment: Note updated reference ranges. Performed By: #### C BC #### S [facility] [address] [place] [address], Anion gap [Moles/Vol] 10 mmol/L Normal 10-20 [facility] Comment on above: Performed By: #### ASIA Freitas, PHOS #### S [facility]Y LAB[facility]ORY [address] [place] [address], Calcium [Mass/Vol] 7.9 mg/dL Low 8.6-10.3 [facility] Comment on above: Result Comment: Note updated reference ranges. Performed By: #### ASIA Freitas, PHOS #### [facility] [address] [place] [address], Chloride [Moles/Vol] 102 mmol/L Normal 98-107 [facility] Comment on above: Result Comment: Note updated reference ranges. Performed By: #### ASIA Freitas, PHOS #### [facility] [address] [place] [address], CO2 [Moles/Vol] 30 mmol/L Normal 21-31 [facility] Comment on above: Result Comment: Note updated reference ranges. Performed By: #### ASIA Freitas, PHOS #### [facility] [place], [place], Creatinine [Mass/Vol] 0.79 mg/dL Normal 0.70-1.30 [facility] Comment on above: Result Comment: Note updated reference ranges. Performed By: #### ASIA Freitas, FAVIOLAS #### [facility] [address] [place], [place], ESTIMATED GFR (CKD-EPI) 93 mL/min/1.73sqm Normal >=60 [facility] Comment on above: Result Comment: 2020 [...] Inclusion of Race in Diagnosing Kidney Disease. [place] Journal of Kidney Diseases 2021;79(2):268-88.e1. 2. N Engl J Med 2020 Vol. 385 Issue 19 Pages 4154-5896 Performed By: #### ASIA Freitas, FAVIOLAS #### [facility] [address] [place], [place], Glucose [Mass/Vol] 139 mg/dL High 74-109 [facility] Comment on above: Performed By: #### ASIA Freitas, PHOS #### [facility] [address] [place], [place], Potassium [Moles/Vol] 3.7 mmol/L Normal 3.5-5.0 [facility] Comment on above: Result Comment: Note updated reference ranges. Note updated reference ranges. Performed By: #### ASIA Freitas, PHOS #### [facility] [address] [place], [place], Sodium [Moles/Vol] 138 mmol/L Normal 136-145 [facility] Comment on above: Result Comment: Note updated reference ranges. Performed By: #### ASIA Freitas, PHOS #### [facility] [address] [place], [place], Urea nitrogen [Mass/Vol] 23 mg/dL Normal 7-25 [facility] Comment on above: Result Comment: Note updated reference ranges. Performed By: #### M JUDITH Harper8, MIGUEL #### [facility] [address] [place], [id number] Basic metabolic 2000 panelon 02-20-2023 Anion gap [...] 126 mg/dL High 74 - 109 mg/dL [facility] Interpretation and review of laboratory results Abnormal [...] 139 mg/dL High 74 - 109 mg/dL [facility] Potassium [Moles/Vol] 3.7 mmol/L 3.5 - 5.0 [...] vol] 90 fL 80 - 100 fL [facility] Platelet mean volume (Bld) [Entitic vol] 9.0 fL 7.5 - 11.2 fL [facility] Platelets (Bld) [#/Vol] 159 10*3/uL 150 - 400 K/uL [facility] RBC (Bld) [#/Vol] 2.53 10*6/uL Low [facility] WBC (Bld) [#/Vol] 8.7 10*3/uL 4.5 - 11.5 K/uL M [facility] COMPLETE BLOOD COUNTon 02-20 Erythrocyte distribution width (RBC) [Ratio] 14.7 % High 11.5-14.5 [facility] Comment on above: Performed By: #### T S #### [facility] [address] [place] [address], Hematocrit (Bld) [Volume fraction] 23.3 % Low 41.0-53.0 [facility] Comment on above: Performed By: #### T S #### [facility] [address] [place] [address], Hemoglobin (Bld) [Mass/Vol] 7.7 g/dL Low 13.9-16.3 [facility] Comment on above: Performed By: #### T S #### [facility] [address] [place] [address], MCH (RBC) [Entitic mass] 30.2 pg Normal 26.0-34.0 [facility] Comment on above: Performed By: #### T S #### [facility] [address] [place] [address], MCHC (RBC) [Mass/Vol] 33.2 g/dL Normal 32.0-35.9 [facility] Comment on above: Performed By: #### T S #### S [facility] LAB[facility]ORY [address] [place] [address], MCV (RBC) [Entitic vol] 91 fL Normal 80-100 [facility] Comment on above: Performed By: #### T S #### S [facility]OLOGY LAB[facility]ORY [address] [place] [address], Platelet mean volume (Bld) [Entitic vol] 8.5 fL Normal 7.5-11.2 [facility] Comment on above: Performed By: #### T S #### [facility] [address] [place] [address], Platelets (Bld) [#/Vol] 192 10*3/uL Normal 150-400 [facility] Comment on above: Performed By: #### T S #### [facility] [address] [place] [address], RBC (Bld) [#/Vol] 2.56 10*6/uL Low 4.50-5.90 [facility] Comment on above: Performed By: #### T S #### [facility] [address] [place] [address], WBC (Bld) [#/Vol] 9.1 10*3/uL Normal 4.5-11.5 [facility] Comment on above: Performed By: #### T S #### [facility] [address] [place] [address], Erythrocyte distribution width (RBC) [Ratio] 14.4 % Normal 11.5-14.5 [facility] Comment on above: Performed By: #### C BC #### [facility] [address] [place] [address], Hematocrit (Bld) [Volume fraction] 22.8 % Low 41.0-53.0 [facility] Comment on above: Performed By: #### C BC #### [facility] [address] [place] [address], Hemoglobin (Bld) [Mass/Vol] 7.8 g/dL Low 13.9-16.3 [facility] Comment on above: Performed By: #### C BC #### [facility] [address] [place] [address], MCH (RBC) [Entitic mass] 31.0 pg Normal 26.0-34.0 [facility] Comment on above: Performed By: #### C BC #### [facility] [address] [place] [address], MCHC (RBC) [Mass/Vol] 34.4 g/dL Normal 32.0-35.9 [facility] Comment on above: Performed By: #### C BC #### [facility] [address] [place] [address], MCV (RBC) [Entitic vol] 90 fL Normal 80-100 [facility] Comment on above: Performed By: #### C BC #### [facility] [address] [place] [address], Platelet mean volume (Bld) [Entitic vol] 9.0 fL Normal 7.5-11.2 [facility] Comment on above: Performed By: #### C BC #### [facility] [address] [place] [address], Platelets (Bld) [#/Vol] 159 10*3/uL Normal 150-400 [facility] Comment on above: Performed By: #### C BC #### [facility] [address] [place] [address], RBC (Bld) [#/Vol] 2.53 10*6/uL Low 4.50-5.90 [facility] Comment on above: Performed By: #### C BC #### [facility] [address] [place] [address], WBC (Bld) [#/Vol] 8.7 10*3/uL Normal 4.5-11.5 [facility] Comment on above: Performed By: #### C BC #### [facility] [address] [place] [address], COVID/INFLUENZAon 02-20-2023 INFLUENZA A Not detected Normal Not Detected [facility] Comment on above: Order Comment: Not D etected results are indicative of the absence of SARS-CoV-2 in the specimen submitted for testing. False negative results are possible based on the timing and quality of specimen submitted for testing. Result Comment: This assay was performed using [employer] RTPCR technology. Performed By: #### T S #### [facility] [address] [place] [address], INFLUENZA B Not detected Normal Not Detected [facility] Comment on above: Order Comment: Not D etected results are indicative of the absence of SARS-CoV-2 in the specimen submitted for testing. False negative results are possible based on the timing and quality of specimen submitted for testing. Result Comment: This assay was performed using [employer] RTPCR technology. Performed By: #### T S #### S PATHOLOGY LABORATORY [address] [place], [place], SARS-CoV-2 (COVID-19) RNA FABI+probe Ql (Unsp spec) Not detected Normal Not Detected [facility] Comment on above: Order Comment: Not D etected results are indicative of the absence of SARS-CoV-2 in the specimen submitted for testing. False negative results are possible based on the timing and quality of specimen submitted for testing. Result Comment: This assay was performed using [employer] RTPCR technology. Performed By: #### T S #### [facility] [address] [place], [place], COVID/INFLUENZAOrdered By: Prisca Vogel on 02-20-2023 FLUAV RNA FABI+probe Ql (Nph) Not detected Not Detected [facility] FLUBV RNA FABI+probe Ql (Nph) Not detected Not Detected [facility] Interpretation and review of laboratory results Normal [facility] SARS-CoV-2 (COVID-19) RNA FABI+probe Ql (Unsp spec) Not detected Not Detected [facility] Care Plan Noteon 02-20-2023 Dietary Director Authentication Interface Message Text Called to bedside to assess for left arm swelling. Does appear left arm is asymmetrically swollen compared to right. Neurovascularly intact however. Denies chest pain, sob at this time. Will order duplex RUE to r/o dvt. Kevin Barrientos, DO Normal [facility] Dietary Director Authentication Interface Message Text Noticed increased swelling and warmth on Left arm compared to earlier in shift and Right arm. Pt was also unable to be weaned off O2 as well and complains of shortness of breath at times, and cannot tolerate lying flat. Vitals unremarkable otherwise. 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 Normal [facility] MAGNESIUMon 02-20-2023 Magnesium [Mass/Vol] 2.0 mg/dL Normal 1.6-2.8 [facility] Comment on above: Performed By: #### Vijaya HMatt, PHOS, MG ####[facility] [id number] [place], [place], Magnesium [Mass/Vol] 2.0 mg/dL 1.6 - 2.8 mg/dL [facility] Magnesium [Mass/Vol] 1.9 mg/dL Normal 1.6-2.8 [facility] Comment on above: Performed By: #### ASIA Freitas, PHOS #### [facility] [address] [place], [place], Interpretation and review of laboratory results Normal [facility] Magnesium [Mass/Vol] 1.9 mg/dL 1.6 - 2.8 mg/dL [facility] No Panel Informationon 02-20 Interpretation and review of laboratory results Normal [facility] Interpretation and review of laboratory results Abnormal [facility] PHOSPHORUSon 02-20-2023 Phosphate [Mass/Vol] 2.8 mg/dL Normal 2.3-4.2 [facility] Comment on above: Performed By: #### Viajya Mendoza, PHOS, MG ####[facility] [id number] [place], [place], Phosphate [Mass/Vol] 2.8 mg/dL 2.3 - 4.2 mg/dL [facility] Phosphate [Mass/Vol] 2.2 mg/dL Low 2.3-4.2 [facility] Comment on above: Performed By: ###ASIA Alas, PHOS #### [facility] [address] [place], [place], Phosphate [Mass/Vol] 2.2 mg/dL Low 2.3 - 4.2 mg/dL [facility] Progress Noteson 02-20-2023 Dietary Director Authentication Interface Message Text [facility] 02/20/2023 Reason for Services: Follow-Up Conference Services Director attempted to visit with patient for follow up regarding resources and education provided and answer any questions. Patient was asleep at time of visit. Conference Services Director will attempt to engage with Patient and/or Family the next business day. Jess Henley Main Line: [phone] Normal [facility] Dietary Director Authentication Interface Message Text SW/CM aware that patient meets criteria for SNF. Met with Pt on unit to discuss dispo. Patient open and agreeable to SNF placement. CM/SW provided pt the quality and resource use measure data from available post-acute (PAC) providers, that best align with the patient's treatment goals and preferences from the medicare.gov compare site for SNF. [place] of Choice was provided to the patient/patient medical billing representative. Pt want's RAE STROUD [phone] as decision maker for dc planning SW/CM will follow up for choices. Addendum 2:06pm SW called pt's RAE STROUD [phone] she gave the following facility choices [facility] Ms. Stroud has surgery tomorrow, pt's son Anibal Stroud [phone] will be main contact agent for the family. SW sent referrals SW will continue to follow Pt will not need precert Aj Marie [facility] [place],READINESS PARAPROFESSIONAL Normal [facility] URINALYSIS WITH REFLEX CULTU RE PERFORMABLEon [...] FXA-LMW HEPARIN ASSAY 0.32 IU/mL Normal [facility] Comment on above: Order Comment: The r ecommended therapeutic range for treatment of thrombosis with Low Molecular Weight Heparin is 0.5 - 1.0 IU/mLThe recommended range for VTE prophylaxis with Low Molecular Weight Heparin is 0.2 - 0.4 IU/mL. Performed By: #### A XL ####[facility] [id number] [place], [place], LMW Heparin Chromogenic method Qn (PPP) 0.32 IU/mL [facility] BASIC METABOLIC PANELon 01-25 Anion gap [Moles/Vol] 10 mmol/L Normal 10-20 The [facility] Comment on above: Performed By: #### MIGUEL Carpenter MG ####[facility] [id number] [place], [place], Calcium [Mass/Vol] 7.9 mg/dL Low 8.6-10.3 [facility] Comment on above: Result Comment: Note updated reference ranges. Performed By: #### Vijaya HMatt PHOS, MG ####[facility] [id number] [place], [place], Chloride [Moles/Vol] 105 mmol/L Normal 98-107 [facility] Comment on above: Result Comment: Note updated reference ranges. Performed By: #### C H8, PHOS, MG ####[facility] [id number] [place], [place], CO2 [Moles/Vol] 28 mmol/L Normal 21-31 [facility] Comment on above: Result Comment: Note updated reference ranges. Performed By: #### C H8, PHOS, MG ####[facility] [id number] [place], [place], Creatinine [Mass/Vol] 0.66 mg/dL Low 0.70-1.30 [facility] Comment on above: Result Comment: Note updated reference ranges. Performed By: #### C H8, PHOS, MG ####[facility] [id number] [place], [place], ESTIMATED GFR (CKD-EPI) 98 mL/min/1.73sqm Normal >=60 [facility] Comment on above: Result Comment: 2020 [...] Inclusion of Race in Diagnosing Kidney Disease. Czech Journal of Kidney Diseases 202;79(2):268-88.e1. 2. N Engl J Med 1 Vol. 385 Issue 19 Pages 4254-1871 Performed By: #### C H8, PHOS, MG ####[facility] [id number] [place], Glucose [Mass/Vol] 116 mg/dL High 74-109 [facility] Comment on above: Performed By: #### C H8, PHOS, MG ####[facility] [id number] [place], Potassium [Moles/Vol] 4.4 mmol/L Normal 3.5-5.0 [facility] Comment on above: Result Comment: Note updated reference ranges. Note updated reference ranges. Performed By: #### C H8, PHOS, MG ####[facility] [id number] [place], Sodium [Moles/Vol] 139 mmol/L Normal 136-145 [facility] Comment on above: Result Comment: Note updated reference ranges. Performed By: #### C H8, PHOS, MG ####[facility] [id number] [place], Urea nitrogen [Mass/Vol] 19 mg/dL Normal 7-25 [facility] Comment on above: Result Comment: Note updated reference ranges. Performed By: #### C H8, PHOS, MG ####[facility] [id number] [place], [id number] Basic metabolic 2000 panelon 02-19-2023 Anion gap [Moles/Vol] 10 mmol/L 10 - 20 [facility] Calcium [Mass/Vol] 7.9 mg/dL Low 8.6 - 10. 3 mg/dL [facility] Chloride [Moles/Vol] 105 mmol/L 98 - 107 mmol/L [facility] CO2 [Moles/Vol] 28 mmol/L 21 - 31 mmol/L [facility] Creatinine [Mass/Vol] 0.66 mg/dL Low 0.70 - 1.30 mg/dL [facility] GFR/1.73 sq M.predicted CKD-EPI (S/P/Bld) [Vol rate/Area] 98 - PINF [facility] Glucose [Mass/Vol] 116 mg/dL High 74 - 109 mg/dL [facility] Interpretation and review of laboratory results Abnormal [facility] Potassium [Moles/Vol] 4.4 mmol/L 3.5 - 5.0 mmol/L [facility] Sodium [Moles/Vol] 139 mmol/L 136 - 145 mmol/L [facility] Urea nitrogen [Mass/Vol] 19 mg/dL 7 - 25 mg/dL [facility] CBC panel Auto (Bld)on 02-19 Erythrocyte distribution width (RBC) [Ratio] 14.5 % 11.5 - 14.5 % [facility] Hematocrit (Bld) [Volume fraction] 21.3 % Low 41.0 - 53.0 % [facility] Hemoglobin (Bld) [Mass/Vol] 7.3 g/dL Low 13.9 - 16.3 g/dL [facility] Interpretation and review of laboratory results Abnormal [facility] MCH (RBC) [Entitic mass] 30.9 pg 26.0 - 34.0 pg [facility] MCHC (RBC) [Mass/Vol] 34.5 g/dL 32.0 - 35.9 g/dL [facility] MCV (RBC) [Entitic vol] 90 fL 80 - 100 fL [facility] Platelet mean volume (Bld) [Entitic vol] 8.3 fL 7.5 - 11.2 fL [facility] Platelets (Bld) [#/Vol] 116 10*3/uL Low 150 - 400 K/uL [facility] RBC (Bld) [#/Vol] 2.38 10*6/uL Low [facility] WBC (Bld) [#/Vol] 5.7 10*3/uL 4.5 - 11.5 K/uL [facility] COMPLETE BLOOD COUNT 02-19 Erythrocyte distribution width (RBC) [Ratio] 14.5 % Normal 11.5-14.5 [facility] Comment on above: Performed By: #### ASIA Freitas, PHOS #### [facility] [address] [place] [address], Hematocrit (Bld) [Volume fraction] 21.3 % Low 41.0-53.0 [facility] Comment on above: Performed By: #### ASIA Freitas, PHOS #### S PATHOLOGY LABORATORY [address] [place] [address], Hemoglobin (Bld) [Mass/Vol] 7.3 g/dL Low 13.9-16.3 [facility] Comment on above: Performed By: #### ASIA Freitas, PHOS #### S PATHOLOGY LABORATORY [address] [place] [address], MCH (RBC) [Entitic mass] 30.9 pg Normal 26.0-34.0 [facility] Comment on above: Performed By: #### ASIA Freitas, PHOS #### S PATHOLOGY LABORATORY [address] [place] [address], MCHC (RBC) [Mass/Vol] 34.5 g/dL Normal 32.0-35.9 [facility] Comment on above: Performed By: #### ASIA Freitas, PHOS #### S PATHOLOGY LABORATORY [address] [place] [address], MCV (RBC) [Entitic vol] 90 fL Normal 80-100 [facility] Comment on above: Performed By: #### ASIA Freitas, PHOS #### [facility] [address] [place] [address], Platelet mean volume (Bld) [Entitic vol] 8.3 fL Normal 7.5-11.2 [facility] Comment on above: Performed By: #### ASIA Freitas, PHOS #### [facility] [address] [place], [place], Platelets (Bld) [#/Vol] 116 10*3/uL Low 150-400 [facility] Comment on above: Performed By: #### Jennifer ASIA Harper, PHOS #### S PATHOLOGY LABORATORY [address] [place], [place], RBC (Bld) [#/Vol] 2.38 10*6/uL Low 4.50-5.90 [facility] Comment on above: Performed By: #### ASIA Freitas, PHOS #### S PATHOLOGY LABORATORY [address] [place], [place], WBC (Bld) [#/Vol] 5.7 10*3/uL Normal 4.5-11.5 [facility] Comment on above: Performed By: #### ASIA Freitas, PHOS #### [facility]ORY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 by: Director Of It Operations Reason for Services: Initial Visit Immediate Needs: None identified Conference Services Director educated patient and visitors at bedside on Trauma [facility] and Resources. In addition, informed of [facility] Resources available when and where appropriate. Conference Services Director will remain available for support. ? Jess Henley Main Line: [phone] Normal The [facility] Interface Message Text -------- GENERAL INFORMATION -------- [...] R rib 9-10 fracture was seen at [facility].The patient had 5 packs of RBCs, 3 packs of FFP, 1 platelet, TXA and Vit K from when he arrived to [facility] and in transit. Patient takes coumadin. Hospital Course: 02/16-became hypotensive, concern for aspiration PNA. Central line, art line placed. On dual pressors. 02/17-weaned off pressors. clinical document improvement educator attempted bedside echo. 24-hour Events: Patient weaned [...] Hct MCV RDW Plt PT aPTT INR 02/18/23 0415 6.5 2.89 8.9 25.6 89 14.4 110 Basic Metabolic Panel Na K Cl CO2 Gap Glu BUN Cr Ca Mg PO4 02/18/23 0415 134 Comment: Note updated reference ranges. 4.1 Comment: Note updated reference ranges. Note updated reference ranges. 101 Comment: Note updated reference ranges. 27 Comment: Note updated reference ranges. 10 106 22 Comment: Note updated reference ranges. 0.62 Comment: Note updated reference ranges. 7.9 Comment: Note updated reference ranges. 02/18/23 0415 1.6 02/18/23 0415 2.0 Arterial Blood Gases None --------- ASSESSMENT [...] for OR Respiratory: Hx of COPD -respiratory physician practice consultant protocol -encourage IS -goal O2 >90% -home [...] f (more content not included)... Normal [facility] Dietary Director Authentication Interface Message Text Pharmacokinetic Dosing Service - VANCOMYCIN Name: Fredrick Stroud Age:[age] year old Gender: male Ht: 5' 6 Wt: 119.5 kg Indication: Pneumonia Desired Ranges: AUC24 400-600 Day of therapy: 02/18/23RADHA- Day 03: Pneumonia; Renal function: stable; Current regimen: 1.75g iv q12hrs, predicted AUC on regimen: 246; New regimen: 1.75g iv q12hrs, New AUC on regimen: 492; Next level Due:24-36hrs, Level not ordered [facility] Pharmacokinetics Note Drug: Vancomycin Pharmacokinetic target: AUC24 (range) 400-600 mg/L.hr Current regimen: 1750 mg IV every 24 hours Fredrick Stroud is a(n) 72 years old male receiving Vancomycin 1750 mg IV every 24 hours for Pneumonia Recent measured serum creatinine values: 02/18/2023 04:15 0.62 mg/dL 02/17/2023 00:25 1 mg/dL 02/16/2023 16:59 1.38 mg/dL Assessment: Analysis of the most recent level(s) using [employer] gives the following patient-specific pharmacokinetic parameters: CL: [...] creatinine clearance: 127.3 mL/min (A) Culture(s): N/A [facility] Dosing Consult The medication regimen has been updated per consult agreement procedures. Pharmacy will post notes for levels upon return and for dose changes. Normal The [facility] RED BLOOD CELL COMPONENTon 1 04-21-2022 BB ORDER ITEM Product status info to follow Normal The [facility] Comment on above: Performed By: #### ASIA Freitas PHOS #### [facility] [address] [place] [address], BB Order Item Product status info to follow [facility] RED BLOOD CELL UNIT STATUSon 02-18-2023 Blood product unit Nom (BPU) [ID] [id number] [facility] Blood product unit Nom (BPU) [ID] [id number] [facility] Blood product unit Nom (BPU) [ID] [id number] [facility] Blood product unit Nom (BPU) [ID] [id number] [facility] BLOOD PRODUCT CODE [id number] Normal [facility] Comment on above: Performed By: #### P T #### [facility] [address] [place] [address], Performed By: #### ASIA Freitas PHOS #### [facility] [address] [place] [address], Performed By: #### Coby CORREA ####[facility] [id number] [place] [address], BLOOD PRODUCT DESCRIPTION Red Blood Cells Normal The [facility] Comment on above: Performed By: #### P T #### [facility] [address] [place] [address], Performed By: #### ASIA Freitas PHOS #### [facility] [address] [place] [address], Performed By: #### Coby CROREA ####[facility] [id number] [place], BLOOD PRODUCT STATUS Returned to Bld Bnk Normal [facility] Comment on above: Performed By: #### P T #### [facility] [address] [place] [address], Performed By: #### ASIA Freitas PHOS #### [facility] [address] [place] [address], Performed By: #### Coby CORREA ####[facility] [id number] [place], BLOOD PRODUCT UNIT INFO [id number] Normal [facility] Comment on above: Performed By: #### P T #### [facility] [address] [place], [place], BLOOD PRODUCT UNIT INFO [id number] Normal [facility] Comment on above: Performed By: #### ASIA Freitas PHOS #### [facility] [address] [place] [address], BLOOD PRODUCT UNIT INFO [id number] Normal [facility] Comment on above: Performed By: #### Coby CORREA ####[facility] [id number] [place], BLOOD PRODUCT UNIT INFO [id number] Normal [facility] Comment on above: Performed By: #### Coby CORREA ####[facility] [id number] [place], BLOOD PRODUCT UNIT TYPE 5100 Normal [facility] Comment on above: Result Comment: O Po s Performed By: #### P Kimberly #### [facility] [address] [place] [address], Performed By: #### ASIA Freitas PHOS #### [facility] [address] [place] [address], Performed By: #### Coby CORREA ####[facility] [id number] [place], CROSSMATCH INTERPRETATION Compatible (E) Normal [facility] Comment on above: Performed By: #### P T #### [facility] [address] [place] [address], Performed By: #### ASIA Freitas, MIGUEL #### [facility] [address] [place] [address], Performed By: #### Coby CORREA ####[facility] [id number] [place], Transfer Documentson 023 Transfer Documents [id number]# 1.00TIFF Normal [facility] VANCOMYCIN RANDOMon 02-19-20 23 VANC R 8.2 ug/mL Normal 5.0-40.0 [facility] Comment on above: Performed By: #### P T #### [facility] [address] [place] [address], Vancomycin [Mass/Vol] 8.2 ug/mL 5.0 - 40.0 ug/mL [facility] BASIC METABOLIC PANELon 01-25 Anion gap [Moles/Vol] 11 mmol/L Normal 10-20 [facility] Comment on above: Performed By: #### ASIA Freitas, PHOS #### [facility] [address] [place], [place], Calcium [Mass/Vol] 8.3 mg/dL Low 8.6-10.3 [facility] Comment on above: Result Comment: Note updated reference ranges. Performed By: #### ASIA Freitas, PHOS #### [facility] [address] [place], [place], Chloride [Moles/Vol] 105 mmol/L Normal 98-107 [facility] Comment on above: Result Comment: Note updated reference ranges. Performed By: #### ASIA Freitas, PHOS #### [facility] [address] [place], [place], CO2 [Moles/Vol] 24 mmol/L Normal 21-31 [facility] Comment on above: Result Comment: Note updated reference ranges. Performed By: #### ASIA Freitas, PHOS #### [facility] [address] [place], [place], Creatinine [Mass/Vol] 1.00 mg/dL Normal 0.70-1.30 [facility] Comment on above: Result Comment: Note updated reference ranges. Performed By: #### ASIA Freitas, PHOS #### [facility] [address] [place], [place], ESTIMATED GFR (CKD-EPI) 79 mL/min/1.73sqm Normal >=60 [facility] Comment on above: Result Comment: 2020 CKD EPI Equation using Creatinine without Race Comment: Estimated glomerular filtration rate (eGFR) is calculated without a race coefficient. Values should be interpreted in the context of the patient's full clinical presentation. Reference: 1. Clayton Lilly, Lan M, Alissa RAMEY, et al.. A Unifying Approach for GFR Estimation: Recommendations of the NKF-ASN Task Force on Reassessing the Inclusion of Race in Diagnosing Kidney Disease. [place] Journal of Kidney Diseases 2021;79(2):268-88.e1. 2. N Engl J Med 2020 Vol. 385 Issue 19 Pages 9130-4365 Performed By: #### ASIA Freitas PHOS #### [facility] [address] [place], [place], Glucose [Mass/Vol] 189 mg/dL High 74-109 [facility] Comment on above: Performed By: #### ASIA Freitas, MIGUEL #### [facility] [address] [place], [place], Potassium [Moles/Vol] 4.0 mmol/L Normal 3.5-5.0 [facility] Comment on above: Result Comment: Note updated reference ranges. Note updated reference ranges. Performed By: #### ASIA Freitas PHOS #### [facility] [address] [place], [place], Sodium [Moles/Vol] 136 mmol/L Normal 136-145 [facility] Comment on above: Result Comment: Note updated reference ranges. Performed By: #### ASIA Freitas, PHOS #### [facility] [address] [place], [place], Urea nitrogen [Mass/Vol] 36 mg/dL High 7-25 [facility] Comment on above: Result Comment: Note updated reference ranges. Performed By: #### ASIA Freitas, PHOS #### [facility] [address] [place], [place], BLOOD GAS, ARTERIALon 2022 CR GEOVANNI -1.0 mmol/L Normal -2.0-3.0 [facility] Comment on above: Performed By: #### C BC #### [facility] [address] [place] [address], CR PCO2 38.6 mm Hg Normal 35.0-45.0 [facility] Comment on above: Performed By: #### C BC #### [facility] [address] [place] [address], CR PHA 7.395 Normal 7.350-7.450 [facility] Comment on above: Performed By: #### C BC #### [facility] [address] [place] [address], CR PO2 81 mm Hg Normal 80-100 [facility] Comment on above: Performed By: #### C BC #### [facility] [address] [place] [address], FIO2 (CATEGORY) 2 LPM Normal [facility] Comment on above: Performed By: #### C BC #### [facility] [address] [place] [address], HCO3 (Bld) [Moles/Vol] 23 mmol/L Normal 21-28 [facility] Comment on above: Performed By: #### C BC #### [facility] [address] [place] [address], MODE Nasal Canula Normal [facility] Comment on above: Performed By: #### C BC #### [facility] [address] [place] [address], Oxygen saturation in Blood 96.1 % Normal 95.0-99.0 [facility] Comment on above: Performed By: #### C BC #### [facility] [address] [place] [address], BLOOD GAS, VENOUSon 12-25-20 23 CR ABEV -0.3 mmol/L Normal -2.0-3.0 [facility] Comment on above: Performed By: #### C BC #### S PATHOLOGY LABORATORY [address] [place] [address], CR HCO3V 25 mmol/L Normal 21-28 [facility] Comment on above: Performed By: #### C BC #### S PATHOLOGY LABORATORY [address] [place], [place], CR PHV 7.367 Normal 7.320-7.430 [facility] Comment on above: Performed By: #### C BC #### S PATHOLOGY LABORATORY [address] [place], [place], CR PVCO2 43.8 mm Hg Normal 41.0-51.0 [facility] Comment on above: Performed By: #### C BC #### S PATHOLOGY LABORATORY [address] [place], [place], CR PVO2 36 mm Hg Low 38-44 [facility] Comment on above: Performed By: #### C BC #### [facility] [address] [place], [place], Oxygen saturation in Blood 67.1 % Low 70.0-80.0 [facility] Comment on above: Performed By: #### C BC #### [facility] [address] [place], [place], Basic metabolic 2000 panelon 02-17-2023 Anion gap [Moles/Vol] 11 mmol/L 10 - 20 [facility] Calcium [Mass/Vol] 8.3 mg/dL Low 8.6 - 10. 3 mg/dL [facility] Chloride [Moles/Vol] 105 mmol/L 98 - 107 mmol/L [facility] CO2 [Moles/Vol] 24 mmol/L 21 - 31 mmol/L [facility] Creatinine [Mass/Vol] 1.00 mg/dL 0.70 - 1.30 mg/dL [facility] GFR/1.73 sq M.predicted CKD-EPI (S/P/Bld) [Vol rate/Area] 79 - PINF [facility] Glucose [Mass/Vol] 189 mg/dL High 74 - 109 mg/dL [facility] Interpretation and review of laboratory results Abnormal [facility] Potassium [Moles/Vol] 4.0 mmol/L 3.5 - 5.0 mmol/L [facility] Sodium [Moles/Vol] 136 mmol/L 136 - 145 mmol/L [facility] Urea nitrogen [Mass/Vol] 36 mg/dL High 7 - 25 mg/dL [facility] CBC panel Auto (Bld)on 02-17 Erythrocyte distribution width (RBC) [Ratio] 14.9 % High 11.5 - 14.5 % [facility] Hematocrit (Bld) [Volume fraction] 29.5 % Low 41.0 - 53.0 % [facility] Hemoglobin (Bld) [Mass/Vol] 10.1 g/dL Low 13.9 - 16.3 g/dL [facility] Interpretation and review of laboratory results Abnormal [facility] MCH (RBC) [Entitic mass] 30.3 pg 26.0 - 34.0 pg [facility] MCHC (RBC) [Mass/Vol] 34.2 g/dL 32.0 - 35.9 g/dL [facility] MCV (RBC) [Entitic vol] 89 fL 80 - 100 fL [facility] Platelet mean volume (Bld) [Entitic vol] 8.6 fL 7.5 - 11.2 fL [facility] Platelets (Bld) [#/Vol] 145 10*3/uL Low 150 - 400 K/uL [facility] RBC (Bld) [#/Vol] 3.33 10*6/uL Low [facility] WBC (Bld) [#/Vol] 9.9 10*3/uL 4.5 - 11.5 K/uL [facility] COMPLETE BLOOD COUNTon 02-17 Erythrocyte distribution width (RBC) [Ratio] 14.9 % High 11.5-14.5 [facility] Comment on above: Performed By: #### C BC ####S PATHOLOGY [id number] [place], [place], Hematocrit (Bld) [Volume fraction] 29.5 % Low 41.0-53.0 [facility] Comment on above: Performed By: #### C BC ####S PATHOLOGY [id number] [place], Hemoglobin (Bld) [Mass/Vol] 10.1 g/dL Low 13.9-16.3 [facility] Comment on above: Performed By: #### C BC ####S PATHOLOGY [id number] [place], MCH (RBC) [Entitic mass] 30.3 pg Normal 26.0-34.0 [facility] Comment on above: Performed By: #### C BC ####[facility] PATHOLOGY [id number] [place], MCHC (RBC) [Mass/Vol] 34.2 g/dL Normal 32.0-35.9 [facility] Comment on above: Performed By: #### C BC ####[facility] PATHOLOGY [id number] [place], MCV (RBC) [Entitic vol] 89 fL Normal 80-100 [facility] Comment on above: Performed By: #### C BC ####[facility] PATHOLOGY [id number] [place], Platelet mean volume (Bld) [Entitic vol] 8.6 fL Normal 7.5-11.2 [facility] Comment on above: Performed By: #### C BC ####S PATHOLOGY [id number] [place], Platelets (Bld) [#/Vol] 145 10*3/uL Low 150-400 [facility] Comment on above: Performed By: #### C BC ####[facility] PATHOLOGY [id number] [place], RBC (Bld) [#/Vol] 3.33 10*6/uL Low 4.50-5.90 [facility] Comment on above: Performed By: #### C BC ####S PATHOLOGY [id number] [place], WBC (Bld) [#/Vol] 9.9 10*3/uL Normal 4.5-11.5 [facility] Comment on above: Performed By: #### C BC ####S PATHOLOGY [id number] [place], Care Plan Noteon 02-17-2023 Dietary Director Authentication Interface Message Text Problem: Routine Care: [...] will be met Outcome: Progressing Normal [facility] Consultson 02-17-2023 Dietary Director Authentication Interface Message Text PHYSICAL/OCCUPATIONAL THERAPY Attempted to see patient for PT/OT evals this date. Patient scheduled for OR this date for fixation of left femur fracture. Will follow up post-operative as able and medically appropriate. Sylvia Alcantara PT Normal [facility] GLUCOSE, FINGERSTICK-IN OFFI CEon 02-17-2023 Glucose [Mass/Vol] 140 mg/dL High 80-116 [facility] Comment on above: Performed By: #### 8 2948 #### NURSING GLUCOSE PROGRAM [address] [place], [address] Glucose [Mass/Vol] 140 mg/dL High 80 - 116 mg/dL [facility] Interpretation and review of laboratory results Abnormal [facility] MAGNESIUMon 02-17-2023 Magnesium [Mass/Vol] 1.7 mg/dL Normal 1.6-2.8 [facility] Comment on above: Performed By: #### C BC #### [facility]OR[facility] [address] [place], [address] Magnesium [Mass/Vol] 1.7 mg/dL 1.6 - 2.8 mg/dL [facility] MRSA SCREENOrdered By: Shari Ceja on 02-17-2023 Interpretation and review of laboratory results Normal [facility] MRSA isol Org specific cx Ql (Nose) No methicillin resistant Staphylococcus aureus isolated. No methicillin resistant Staphylococcus aureus isolated. [facility] Panel Informationon 02-17 Interpretation and review of laboratory results Normal [facility] PHOSPHORUSon 02-17-2023 Phosphate [Mass/Vol] 2.6 mg/dL Normal 2.3-4.2 [facility] Comment on above: Performed By: #### C BC #### [facility]OR[facility] [address] [place], [address] Phosphate [Mass/Vol] 2.6 mg/dL 2.3 - 4.2 mg/dL [facility] Progress Noteson 02-17-2023 Dietary Director Authentication Interface Message Text -------- GENERAL INFORMATION [...] R rib 9-10 fracture was seen at [facility].The patient had 5 packs of RBCs, 3 packs of FFP, 1 platelet, TXA and Vit K from when he arrived to [facility] and in transit. Patient takes coumadin. Hospital [...] Echo pending Respiratory: Hx of COPD -respiratory physician practice consultant protocol -enc (more content not included)... Normal [facility] XR CHEST AP OR PA 1 [...] is also seen. MACRO: None Normal [facility] ABO RH TYPEon 02-16-2023 ABO and Rh group Nom (Bld) Blood group O Rh(D) positive Normal [facility] Comment on above: Performed By: #### 8 [id number] #### NURSING GLUCOSE PROGRAM [address] [place] [address], [address] BASIC METABOLIC PANELon 12-2 Anion gap [Moles/Vol] 14 mmol/L Normal 10-20 [facility] Comment on above: Performed By: #### C BC #### S PATHOLOGY LABORATORY [address] [place] [address], Calcium [Mass/Vol] 8.3 mg/dL Low 8.6-10.3 [facility] Comment on above: Result Comment: Note updated reference ranges. Performed By: #### C BC #### [facility] PATHOLOGY LABORATORY [address] [place] [address], Chloride [Moles/Vol] 109 mmol/L High 98-107 [facility] Comment on above: Result Comment: Note updated reference ranges. Performed By: #### C BC #### [facility] PATHOLOGY LABORATORY [address] [place] [address], CO2 [Moles/Vol] 20 mmol/L Low 21-31 [facility] Comment on above: Result Comment: Note updated reference ranges. Performed By: #### C BC #### [facility] PATHOLOGY LABORATORY [address] [place] [address], Creatinine [Mass/Vol] 1.38 mg/dL High 0.70-1.30 [facility] Comment on above: Result Comment: Note updated reference ranges. Performed By: #### C BC #### [facility] PATHOLOGY LABORATORY [address] [place] [address], ESTIMATED GFR (CKD-EPI) 54 mL/min/1.73sqm Low >=60 [facility] Comment on above: Result Comment: 2020 CKD EPI Equation using Creatinine without Race Comment: Estimated glomerular filtration rate (eGFR) is calculated without a race coefficient. Values should be interpreted in the context of the patient's full clinical presentation. Reference: 1. Clayton C, Lan M, Alissa DC, et al.. A Unifying Approach for GFR Estimation: Recommendations of the NKF-ASN Task Force on Reassessing the Inclusion of Race in Diagnosing Kidney Disease. [place] Journal of Kidney Diseases 202;79(2):268-88.e1. 2. N Engl J Med 1 Vol. 385 Issue 19 Pages 8213-4394 Performed By: #### C BC #### [facility] [address] [place], [place], Glucose [Mass/Vol] 171 mg/dL High 74-109 [facility] Comment on above: Performed By: #### C BC #### [facility] [address] [place], Potassium [Moles/Vol] 4.5 mmol/L Normal 3.5-5.0 [facility] Comment on above: Result Comment: Note updated reference ranges. Note updated reference ranges. Performed By: #### C BC #### [facility] [address] [place], Sodium [Moles/Vol] 138 mmol/L Normal 136-145 [facility] Comment on above: Result Comment: Note updated reference ranges. Performed By: #### C BC #### [facility] [address] [place], [place], Urea nitrogen [Mass/Vol] 38 mg/dL High 7-25 [facility] Comment on above: Result Comment: Note updated reference ranges. Performed By: #### C BC #### [facility] [address] [place], Anion gap [Moles/Vol] 13 mmol/L Normal 10-20 [facility] Comment on above: Performed By: #### C BC #### [facility] [address] [place], Calcium [Mass/Vol] 9.8 mg/dL Normal 8.6-10.3 [facility] Comment on above: Result Comment: Note updated reference ranges. Performed By: #### C BC #### [facility] [address] [place], Chloride [Moles/Vol] 111 mmol/L High 98-107 [facility] Comment on above: Result Comment: Note updated reference ranges. Performed By: #### C BC #### [facility] [address] [place], CO2 [Moles/Vol] 25 mmol/L Normal 21-31 [facility] Comment on above: Result Comment: Note updated reference ranges. Performed By: #### C BC #### [facility] [address] [place], [place], Creatinine [Mass/Vol] 1.12 mg/dL Normal 0.70-1.30 [facility] Comment on above: Result Comment: Note updated reference ranges. Performed By: #### C BC #### S PATHOLOGY LABORATORY [address] [place], ESTIMATED GFR (CKD-EPI) 69 mL/min/1.73sqm Normal >=60 [facility] Comment [...] Inclusion of Race in Diagnosing Kidney Disease. [place] Journal of Kidney Diseases 2021;79(2):268-88.e1. 2. N Engl J Med 1 Vol. 385 Issue 19 Pages 1374-5760 Performed By: #### C BC #### S PATHOLOGY LABORATORY [address] [place], Glucose [Mass/Vol] 130 mg/dL High 74-109 [facility] Comment on above: Performed By: #### C BC #### S PATHOLOGY LABORATORY [address] [place], [place], Potassium [Moles/Vol] 5.3 mmol/L High 3.5-5.0 [facility] Comment on above: Result Comment: Note updated reference ranges. Note updated reference ranges. Performed By: #### C BC #### [facility] [address] [place], Sodium [Moles/Vol] 144 mmol/L Normal 136-145 [facility] Comment on above: Result Comment: Note updated reference ranges. Performed By: #### C BC #### [facility] [address] [place], Urea nitrogen [Mass/Vol] 27 mg/dL High 7-25 [facility] Comment on above: Result Comment: Note updated reference ranges. Performed By: #### C BC #### [facility] [address] [place], [address] Anion gap [Moles/Vol] 12 mmol/L Normal 10-20 [facility] Comment on above: Performed By: #### 8 2948 #### NURSING GLUCOSE PROGRAM [address] [place], [address] Calcium [Mass/Vol] 10.2 mg/dL Normal 8.6-10.3 [facility] Comment on above: Result Comment: Note updated reference ranges. Performed By: #### 8 2948 #### NURSING GLUCOSE PROGRAM [address] [place], [address] Chloride [Moles/Vol] 108 mmol/L High 98-107 [facility] Comment on above: Result Comment: Note updated reference ranges. Performed By: #### 8 2948 #### NURSING GLUCOSE PROGRAM [address] [place], [address] CO2 [Moles/Vol] 28 mmol/L Normal 21-31 [facility] Comment on above: Result Comment: Note updated reference ranges. Performed By: #### 8 2948 #### NURSING GLUCOSE PROGRAM [address] [place], [address] Creatinine [Mass/Vol] 1.02 mg/dL Normal 0.70-1.30 [facility] Comment on above: Result Comment: Note updated reference ranges. Performed By: #### 8 2948 #### NURSING GLUCOSE PROGRAM [address] [place], [address] ESTIMATED GFR (CKD-EPI) 77 mL/min/1.73sqm Normal >=60 [facility] Comment on above: Result Comment: 2020 CKD EPI Equation using Creatinine without Race Comment: Estimated glomerular filtration rate (eGFR) is calculated without a race coefficient. Values should be interpreted in the context of the patient's full clinical presentation. Reference: 1. Clayton Lilly, Lan M, Alissa RAMEY, et al.. A Unifying Approach for GFR Estimation: Recommendations of the NKF-ASN Task Force on Reassessing the Inclusion of Race in Diagnosing Kidney Disease. [place] Journal of Kidney Diseases 202;79(2):268-88.e1. 2. N Engl J Med 2021 Vol. 385 Issue 19 Pages 2140-2516 Performed By: #### 8 2948 #### NURSING GLUCOSE PROGRAM [address] [place], [address] Glucose [Mass/Vol] 125 mg/dL High 74-109 [facility] Comment on above: Performed By: #### 8 2948 #### NURSING GLUCOSE PROGRAM [address] [place], [address] Potassium [Moles/Vol] 4.5 mmol/L Normal 3.5-5.0 [facility] Comment on above: Result Comment: Note updated reference ranges. Note updated reference ranges. Performed By: #### 8 2948 #### NURSING GLUCOSE PROGRAM [address] [place], [address] Sodium [Moles/Vol] 143 mmol/L Normal 136-145 [facility] Comment on above: Result Comment: Note updated reference ranges. Performed By: #### 8 2948 #### NURSING GLUCOSE PROGRAM [address] [place], [address] Urea nitrogen [Mass/Vol] 25 mg/dL Normal 7-25 [facility] Comment on above: Result Comment: Note updated reference ranges. Performed By: #### 8 2948 #### NURSING GLUCOSE PROGRAM [address] [place], [address] BLOOD CULTUREon 02-16-2023 Bacteria identified Cx Nom (Bld) C BLOOD: No Growth Normal [facility] Comment on above: Performed By: #### Jennifer G, CH8, PHOS #### [facility] [address] [place], [address] BLOOD GAS, ARTERIALon 2022 Base excess Calc [...] [Moles/Vol] 25 mmol/L 21 - 28 mmol/L [facility] Interpretation and review of laboratory results Abnormal [facility] Oxygen (BldV) [Partial pressure] 36 mm[Hg] Low [facility] Oxygen gas flow Oxygen delivery system Nasal [place] [facility] Oxygen saturation in Venous blood 67.1 % Low 70.0 - 80.0 % [facility] pH (BldV) 7.367 [pH] 7.320 - 7.430 [facility] Basic metabolic 2000 panelon 02-16-2023 Anion [...] 171 mg/dL High 74 - 109 mg/dL [facility] Interpretation and review of laboratory results Abnormal [...] CKD-EPI (S/P/Bld) [Vol rate/Area] 69 - PINF [facility] Glucose [Mass/Vol] 130 mg/dL High 74 - 109 mg/dL [facility] Potassium [Moles/Vol] 5.3 mmol/L High 3.5 - 5.0 mmol/L [facility] Sodium [Moles/Vol] 144 mmol/L 136 - 145 mmol/L [facility] Urea nitrogen [Mass/Vol] 27 mg/dL High 7 - 25 mg/dL [facility] Blood Bank Slipon 02-16-2023 Blood Bank Slip [phone] [id number]# 1.00TIFF Normal [facility] CALCIUM, IONIZEDon CR ICA 1.34 mmol/L High 1.15-1.33 [facility] Comment on above: Result Comment: This test was developed, and its performance characteristics determined by the Department of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 conditions (recent MA, anemia with Hct <30%, CRI with SCr > 1.5, DM): no Score = 1/4 Risk (low = 0, mod = 1-2, high = 3-4): Normal [facility] Comment on above: Result Comment: Elec tronically Signed By: Mae Marrero\.br\Date and Time Signed: 04/30/22 14:01 EST Office [...] therapy and has been managed by the [facility] Coumadin clinic. He says he is therapeutic [...] Recorded: 29Apr2022 11:48AM Heart Rate60, R Radial Extaegci538 Yukcbgdez74 Height5 ft 6 in Krrmde775 lb 6 oz BMI Tovaobklwe51.09 kg/m2 BSA Calculated2.19 Tobacco Useb) No Falls Screening (Age 18+)a) No falls within the last year Physical Exam Constitutional: alert and in no acute distress. Eyes: no erythema, swelling or discharge from the eye . Neck: neck i (more content not included)... Normal [facility] Tobacco Screening.on 023 Fall risk assessment a) No falls within the last year [facility] 600 DO Work Phone: Tobacco use status [facility] b) No [facility] 600 DO Work Phone: POCT PT/INRon 04-19-2022 POCT INR 1.7 High .7-1.2 [facility] Comment on above: Performed By: #### 1 [id number], [id number], [id number], [id number] #### [facility] Laboratory [address] [place] [address] POCT PT 19.1 second(s) High 8.0-15.0 [facility] Comment on above: Performed By: #### 1 [id number], [id number], [id number], [id number] #### [facility] Laboratory [address] [place] [address] [place] [address] Coding Summary.on 04-08-2022 Coding Summary. [id number] G h0bWw+PGhlYWQ+DQ5KRTW vS92igCZhzM2UG1rXTD8Y FHHBQVZCPO6MEP5jtYD2D DylB3MmdqHk PdcosBDkOV77HMy7GHS7w TwhFDurrG6ymXNiG1m6Fu VnBE26wR79CPjxDVDwVtN 3LjZpbjsgbWFy U3okChJbtEGvGoo+PHRhY mxlIHdpZHRoPScxMDAlJy VgmHeuAD4nHg5nVHWsEON vbGxhcHNlOiBj k1mzOZQfWDkjJS8byKftT 4LhxZW2WKMvb1q3Dg26tM I+BNSbKTZ5tHtiTMorg60 2SdOnb3xhCIZ0 fSJgKPacICR2J10ar7F1A RMxCTSeSPE0jZE3vC1ufW mootymT3EswMYgOzJ9HCW 1lYTgzZ1zsBcz gmgdoJ9tTxf+V23CKB6MH IFTLJ0DQhb0E9CcOroixW I+HF66TUDqUY71oRLtdUR oq8qjrBk6YbFo YHBkDYJ7nAynWQpem1AfL GOoH04nlJCuj3T2XTYouR anoFXwLoTcuPY0hY8iFFv zxsthu2pmkbpm Pnonb0jouq70mH98K61cM MoeVQBlLHT3PBGjNWGerD vduc1auZ9kWr7+PHhmh2b oa0fmlJu1ZjSl FCUqznOzzUhzHPA5h5ArV c87X6BbtCigz1KrPnx9ys 54wVZkp8G6nUN1CGwtMHI yuA1sHUaePrP5 GOQzCuCvgR14rLQbPLyzR b0tpSbvaLhvRB6uDEXclt fxOASudL1vWOGbkXGxnJe dFD5dGGQfgpcw l487KhPaHVY5YNOrwMXmQ 1UyaR9sNuKjCQKdRBWnK9 UxjGBhSOjsE676TGthSrQ 1HYWnxuBuP6Yc LWYbpWawHyP4x1C2Ch7Kr 2FbnyfyTPX2PXllOUTqQs MwSxYuCrF0E8NoGur4HIS hoGvdST8wQ0Aa WMCbgobqyurqzMV8WPMnS LQyzI74oELxQNccFk1rm5 D0v242VIWfWRBvdQ43Oz2 udDogMTBwdCBU hQ6vebpiw7wtzaiuXpRaA MDtGOy1ZMc4KYHvfPrhLk VkKUL6WhM0GXD2yLAfzK0 oyUnycysgqK0t Oyc+S41uvP5gNZJ0YKW6m xuiJOJdvbJcMY65EE06Z4 RyPjwvdGFibGU+PGRpdiB dwWdoRD8dYbZq l6odd0PlKZgiF8WaSOGvH WffKab2PWVeVWR1rGI0pZ 5iVLDxXUgba8G3eTU3Z4K woeQziv8ct6pv TVXpCNccN17lnMKgi9T3G UGyrAH5QDCctLfkDqRraV 93Oyc+QENptKzvc3YbKwp wn3ani6dmlBu8 QcEhYALyznYtwUmdJZW1k 5FuOq76F75uGPlrHVSdJF CkVSHdGXPmbYhbgn6feZ4 wIi8+PGNvbCB3 gPQ3fZ6pTVUxJtA0LTodV 147TmHeyJQiRaiyc2ipn2 lygRv6EyCwIDGvxiEjyUt wTIM8x5LoIr92 E77qZRqpUXDzCLFnUWNdS LRzxVycku0izZ5iKj4+PC 1hu2xdwb97nB90hZC+PHR cDCD0mSpvOIyj AWChqO5bKPxiTsU8OGQyF jTpeP87qTTdLTllBa5zfP rbbHvaCT4lLNLhylugv09 2CwJjc3mtEFMu iIBlDUvpBEF8P89ny5N5H KPxMTEfQBU3zPG0nY0tsG lnbjogbGVmdDsgdmVydGl zCYdgLLmrH522 IHRvcDsnPlBhdGllbnQgT pKfQHr8V5SxYep8TMYnyR enYX4qmZDtIToyYk5bsHx nzQogRO7qHWFm ezzsp736YwWtd8mhPVUyh MUgKQoeUNF1W58my0Z7YK TtSVDeYTM3oJV7lH4dwTs nbjogbGVmdDsg wlRniVtlIKeuQZuvS853M HRvcDsnPkJpcnRoIERhdG O0PO30LS34wDIgx3H0aBZ 8C9FhTZLxsakv eqmlbAM3XPUkFOLshI43N g1evMntOw4rJDZoCTW2TW AuqWAyH1LuqJ5kIkDxWBQ uLPEwK6LbcYDf ADcjP695HVesZcN8UGYwz fRfL6NcSOTkpDzvGyV2j9 I8Bn5YY9S4DZ57WG76rNC kz6G1pPB1U2Ho CDUboxghqmmukPS2WOLjQ YQmrX59Nl0vtLqaPq6jIS WhHBT2CVCqnJQbB6JfuC6 yOiAjMDAwMDAw R8NijTXhXVorF028ERdqS nV9GNFpixHyB6IwNZGtkO mzZoW3z6G7Mf7WVSh5ST6 5HS67kNYtm7X3 zFS4E8HePSIhyjvfbspvn XS1LEQlOCXfmY56Zb1agO bdQc9jRURwTVR2GMThuOQ uT1CvoJ4fSfEq MUBcRUJpL6OccDAqPVbsX 761XIycYoS9SQVrzuHjF6 IpIWWofNnzLpD0g2J2Ko2 QTLNqIR43LBW9 wTO0ZF58PI91B7OwUrpbx GFibGU+PHRhYmxlIHdpZH RoPScxMDAlJyBzdHlsZT0 iZj2eIQVkFZBn uXnbhLKgRcZim3atIYXvP PhaBG7kyGkdZ6NoyNG6DX Bae2f2Vd38Z32zF3HwaXH +RMGneCF0uWD7 xQ0wApXgQcA2GQxjJ356G uXllEYaGspzp5uwj8zhbO k0TaE7DTOwyaPspRaoQUR 2d6YhYb42V71u IHdpZHRoPSIxNSUiIHZhb Zeckz6xzC9gRf9+PGNvbC F0fQL5hL2qMeRdPqH1WFo kX474ZmQdmFCa Kbqsh9wpn2rfjAw0UzDlB YWnvjAdgJdpWHK0v5FiYs 87H0WkrXcyl7YvPxh5yo7 1yNTkf2G9vJD0 A1HfLGZorxovpMVmuBohE O2dXEIprdouJWMbuA8eKW KhY7q5FhScLmT5ZYxoL5O udtE6ZGFkvATu QHyeVLL8J99nk7F1THOrH KGgXCF4dQR3qQ2vqWfvgv ogbGVmdDsgdmVydGljYWw fKGrcD025QPJd fIoiPNRekX7eYQMiaMKre OuiJY4fCHGeecwuMsNJBi AGMRtiVYHGGthILXo4C4T uRjc0APDjvYaz HP7uyGFyCAztTn5nwMfbt QriWB8vNDQoxfxaZDCwkW 5aTNFsnMEnpIdgND1oGWW vwoynd732ZcRe JRG3FPEmcIKvC8OliT7eU fAoTUFzDDVmB7XpxASeDK ybN210QNizJsJ3ZVSyllC aO5ImVWKkhZvs DuS1c7F1Yp6sRY1rVV3sM DK9FI52LL81uSWli1S0jO S9S5JiMZTqjxsjzdlpbDP 9NOLbARBceQ83 fNYfTKnrSg0di2X7t195X FKvHGOgcD07Dq9qzVhoIK RenFITyH0unllrp4vuuwf gIzAwMDAwMDt0 OCm8UJQdgOiuBjRcHYI6B wD1CYN6pOMfjY8zyEurmp mynS8lTez+NzMgWWVhcnM 2A0BuSwr4IANu qUhaDQ6erPZnSXuiWd8ln JxmdRyyOT6aGURfwokzWO ZavS1yNDOljMMsmXguJW3 mNLNqqdagj867 JuPqYIZ0WWCanJLfI2Zxi U8uKpOgGAEaPCUtY1JepG RyZZgvP613CNkxKrX4KXA ixrUuN0WdGVZu hWzwKtS3c0G7Wc5RCYivA G20DG39jIOpd6K5lKM4K2 BzUPNrjlltcybkgOE1ITC sZOTxyH98uYMi AVrfYf3us7U6q463CLNmP JWghX22Ox0rfIklFMNksP AXrV6wqphix8hkceoyFaE jMIShQQb4BRj2 BZRfiWniDuAgMNS7LyJ9O IW2eBVhiG5pbVkuohwsbG 9wOyc+TcInrYEzdS6mYB3 2ZP25T8ScYtql dGFibGU+PHRhYmxlIHdpZ HRoPScxMDAlJyBzdHlsZT 0lYo7pVHTtJHIltXlumTL lThZqg4dmIUOe BEavBT9nuUvnK3EocEY9U DOgc9e6Yk45R47mG4ChcE A+KYVtvZX2eMU2iA7cKnO aGwZ8HOurH185 XyCdfJMjMdnns3pnk5lun Nx1EgToKCEvkaIqsTtyKU C5q4GyAv58L09yRHmmDKM oPSIyMCUiIHZh mAmrgi4tvT5uGk5+PGNvb KM3oCR1eI1iWrSoJeH3AK isX355NzRgeHBeGztaK97 xX6UbiSZ+PHRy Plu6NKDwqDmmKS7npRRjO WcsPe3pMEF9HsZsMlOkFM pyH4RlSRWetdcghxmwzLE 3GHWfKNDmfN57 Oq5edTlzOu5iHRDyCZX7R XYroQJlT0VpwX0hZgNcOB GoVTXwV8TwgXItBFvhK23 6YBryLjE1DBRt tiMtI6VvDWLttNlnMrX0q 4F0Ou6OpWqtuJRuDT4hNs UcLZi9W1VjWmx2IYLtiSe uVH4qeLAaPAly Ei6ciCtfzNlvUY2hYSRfv pcnd065HvUio3xpEJJstO TaQXkhARZ1L81bx9T5MFR pOBRbSCR2pGR0 kF7gaIilmcxvlZYamKjog sSisGafGVrdLIyhL135GJ OejVzoDhOMWni3E5WyIxa 2ETJldAxjAK7e qYXkLKdyEc7jwYymyJffN X4sLABjqskut651JnCqw3 mxXGNkaLOwDNiuVIZ2W11 yz8D3SGMtOXAm TIK6pVA2kU7hdIvjckbxe GVmdDsgdmVydGljYWwtYW kvS691ZGYniXvuBi5XTcj 5Q2YxWyy5ZGHm jQszHR5dgQLsKKceXh1bg EqvdKwuAG2fDHIacbsai5 67CaHlj0vrKJAtjXQbNPp mUXT3Y37yr0T9 JCFkCHSyOCV7ySG0yT6yl GlnbjogbGVmdDsgdmVydG vjUAngJVteP653OPBirGd nPlBheWVyOjwv dGQ+TB39wz29F4IwPrunU ak0JDTlLKW8jFV1mS8dOK AqEVlmh4F7zCD3R3CwwxW dex1ag3ddYSWt ZTog (more content not included)... Normal [facility] POCT PT/INRon 04-05-2022 POCT INR 1.3 High .7-1.2 [facility] Comment on above: Performed By: #### 2 [id number] #### [facility] Laboratory [address] [facility] [address] POCT PT 15.0 second(s) Normal 8.0-15.0 [facility] Comment on above: Performed By: #### 2 [id number] #### [facility] Laboratory [address] [facility] [place] [address] POCT INR Error Invalid Interpretation Code .7-1.2 [facility] Comment on above: Performed By: #### 1 [id number], [id number], [id number], [id number] #### [facility] Laboratory [address] [facility] [place] [address] POCT PT Strip Error Invalid Interpretation Code 8.0-15.0 [facility] Comment on above: Performed By: #### 1 [id number], [id number] #### [facility] Laboratory [address] [facility] [place] [address] POCT INR Error Invalid Interpretation Code .7-1.2 [facility] Comment on above: Performed By: #### 1 [id number], [id number], [id number], [id number] #### [facility] [address] [facility] [address] POCT PT Strip Error Invalid Interpretation Code 8.0-15.0 [facility] Comment on above: Performed By: #### 1 [id number], [id number], [id number], [id number] #### [facility] Laboratory [address] [place] [id number] Physician Orderon 04-01-2022 Physician Order [id number] 1.00CD:127 Normal [facility] Consent for Treatmenton Consent for Treatment [id number] .00CD:127 Normal [facility] POCT PT/INRon 03-29-2022 POCT INR 1.3 High .7-1.2 [facility] Comment on above: Performed By: #### 2 [id number] #### [facility] Laboratory [address] [place] [address] POCT PT 14.2 second(s) Normal 8.0-15.0 [facility] Comment on above: Performed By: #### 2 [id number] #### [facility] Laboratory [address] [place] [address] [facility] echo transthoracicon [facility] echo transthoracic [facility] [address] Echocardiogram Signed Patient: Fredrick Stroud MR#: [id number] : 1950 Acct:[id number] Age/Sex: 71 / M ADM Date: 03/27/22 Loc: Room: Type: [facility] Attending Dr: Sejal Link SURGICAL NURSE PRACTITIONER-C Ordering Provider: Sejal Link APRN Date of Service: 03/27/22/ [facility] echo transthoracic: Afib. SOB. HTN. Copies to: LUCY Hankins MD, [facility] BSA: 2.2 m2 BP: 125/82 mmHg HR: [...] 16.2 cm Ao V2 VTI: 21.5 cm DAVID(I,D): 3.3 cm2 DAVID(V,D): 3.0 cm2 __ TV max PG: TR max abby: 22.0 mmHg 234.6 cm/sec TR max P.0 mmHg Transcribed By: SCV Performed At: 03/27/22 6726 Signed By: Love Gaviria MD, [facility] 03/27/22 1557 [facility] Free T4 (Free Thyroxine)on 0 03-27-2022 Free T4 [Mass/Vol] 1.01 ng/dL Normal 0.61-1.12 [facility] Comment on above: Order Comment: Reaso n for Exam Atrial fibrillation;Essential hypertension Performed By: #### C BC, CMP, HS TROP, BNP #### [facility] [address] TSH DL <= 0.005 mIU/L QnOrde red By: Sejal Link on 03-27-2022 TSH Qn 2.57 m[IU]/L 0.45-5.33 [facility] Thyroid Stimulating Hormoneo n 03-27-2022 TSH Qn 2.57 m[IU]/L Normal 0.45-5.33 [facility] Comment on above: Order Comment: Reaso n for Exam Atrial fibrillation;Essential hypertension Result Comment: PERF ORMED BY: [place] [address] PATHOLOGIST [employer] WORKER EYAD HOWRAD M.D. Performed By: #### C BC, CMP, HS TROP, BNP #### [place] [address] [place] Thyroxine (T4) free [Mass/vo lume] in Serum or PlasmaOrdered By: Sejal Link on 03-27-2022 Free T4 [Mass/Vol] 1.01 ng/dL 0.61-1.12 [facility] Triiodothyronine (T3) Freeon 03-27-2022 Triiodothyronine (T3) Free 3.17 pg/mL Normal 2.50-3.90 [facility] Comment on above: Order Comment: Reaso n for Exam Atrial fibrillation;Essential hypertension Result Comment: PERF ORMED BY: [place] [address] PATHOLOGIST [employer] WORKER EYAD HOWARD M.D. Performed By: #### C BC, CMP, HS TROP, BNP #### [facility] [address] [place] [address] [place] Triiodothyronine (T3) Free [ Mass/volume] in Serum or PlasmaOrdered By: Sejal Link on 03-27-2022 Free T3 [Mass/Vol] 3.17 pg/mL 2.50-3.90 [facility] Office Visit (Cardiology)on 03-21-2022 Follow-up visit [...] Goal 2.0-3.0. Patient would like managed with [facility] Coumadin clinic Follow up in 2 months [...] which include rate control with anticoagulation versus bahai of maintenance of sinus rhythm. After discussing [...] Signs Recorded: 21Mar2022 02:26PM Heart Rate67, Apical Mkrqroxr431, RUE, Biidzxf326, LUE, Sitting Mugyrdxfn30, RUE, Tbwhgwi09, LUE, Sitting He (more content not included)... Normal [facility] Albumin [Mass/volume] in Ser um or PlasmaOrdered By: Yo Blood on 03-11-2022 Albumin [Mass/Vol] 4.1 g/dL 3.2-5.5 [facility] B-Type Natriuretic Peptideon 03-11-2022 Natriuretic peptide B (Bld) [Mass/Vol] 101.0 pg/mL High 5-100 [facility] Comment on above: Result Comment: PERF ORMED BY: [place] [address] PATHOLOGIST [employer] WORK[employer] EYAD HOWARD M.D. Performed By: #### C BC, CMP, HS TROP, BNP #### [address] Basophils Auto (Bld) [#/Vol] Ordered By: Yo Blood on 03-11-2022 Basophils (Bld) [#/Vol] 0.0 10*3/uL 0.0-0.2 [facility] Basophils/100 WBC Auto (Bld) Ordered By: Yo Blood on 03-11-2022 Basophils/100 WBC (Bld) 1.1 % . [facility] COVID-19 Antigenon 3 COVID-19 Antigen Healthcare [...] developed and its performance characteristic determined by Causes and validated at [facility]. This test has not been FDA [...] for SARS Antigen by OLY PERFORMED BY: [place] [address] PATHOLOGIST [employer] WORKER EYAD HOWARD M.D. Normal [facility] Comment on above: Performed By: #### C OVID-19 GERTRUDE, SOFIANEG #### [address] COVID-19 SOFIAOrdered By: Buster Blood on 03-11-2022 SARS-CoV+SARS-CoV-2 (COVID-19) Ag IA.rapid Ql (Resp) Negative Negative [facility] Comment on above: This is a duplicate Gertrude SARS Antigen (OLY) result to be used for statistical tracking purpose only. Complete Blood Count Auto Di ffon 03-11-2022 Basophils (Bld) [#/Vol] 0.0 10*3/uL Normal 0.0-0.2 [facility] Comment on above: Result Comment: PERF ORMED BY: [place] [address] PATHOLOGIST [employer] WORKER EYAD HOWARD M.D. Performed By: #### C BC, CMP, HS TROP, BNP #### [facility] [address] [place] [address] [place] Basophils/100 WBC (Bld) 1.1 % Normal . [facility] Comment on above: Performed By: #### C BC, CMP, HS TROP, BNP #### [facility] [address] Eosinophils (Bld) [#/Vol] 0.0 10*3/uL Normal 0.0-0.45 [facility] Comment on above: Performed By: #### C BC, CMP, HS TROP, BNP #### [address] Eosinophils/100 WBC (Bld) 0.4 % Normal . [facility] Comment on above: Performed By: #### C BC, CMP, HS TROP, BNP #### [address] Erythrocyte distribution width (RBC) [Ratio] 14.0 % Normal 12.0-14.8 [facility] Comment on above: Performed By: #### C BC, CMP, HS TROP, BNP #### [address] Hematocrit (Bld) [Volume fraction] 46.7 % Normal 38.8-50.0 [facility] Comment on above: Performed By: #### C BC, CMP, HS TROP, BNP #### [place] [address] [place] Hemoglobin (Bld) [Mass/Vol] 15.3 g/dL Normal 13.0-17.0 [facility] Comment on above: Performed By: #### C BC, CMP, HS TROP, BNP #### [facility] [address] [place] [address] [place] Lymphocytes (Bld) [#/Vol] 1.1 10*3/uL Normal 1.00-4.8 [facility] Comment on above: Performed By: #### C BC, CMP, HS TROP, BNP #### [place] [address] [place] Lymphocytes/100 WBC (Bld) 29.0 % Normal . [facility] Comment on above: Performed By: #### C BC, CMP, HS TROP, BNP #### [address] MCH (RBC) [Entitic mass] 29.4 pg Normal 27.5-35.2 [facility] Comment on above: Performed By: #### C BC, CMP, HS TROP, BNP #### [address] MCV (RBC) [Entitic vol] 89.6 fL Normal 83.5-101 [facility] Comment on above: Performed By: #### C BC, CMP, HS TROP, BNP #### [address] Mean Corpuscular HGB Conc 32.8 g/dL Normal 32.5-35.6 [facility] Comment on above: Performed By: #### C BC, CMP, HS TROP, BNP #### [address] Monocytes (Bld) [#/Vol] 0.8 10*3/uL Normal 0.0-0.8 [facility] Comment on above: Performed By: #### C BC, CMP, HS TROP, BNP #### [address] Monocytes/100 WBC (Bld) 20.67 % High 0.00-20.00 [facility] Comment on above: Result Comment: For adults in ED, MDW > 20.0 may be associated with a higher risk of sepsis during the first 12 hrs of hospital admission Performed By: #### C BC, CMP, HS TROP, BNP #### [address] Monocytes/100 WBC (Bld) 20.9 % Normal . [facility] Comment on above: Performed By: #### C BC, CMP, HS TROP, BNP #### [address] Neutrophils (Bld) [#/Vol] 1.8 10*3/uL Normal 1.8-7.7 [facility] Comment on above: Performed By: #### C BC, CMP, HS TROP, BNP #### [address] Neutrophils/100 WBC (Bld) 48.6 % Normal . [facility] Comment on above: Performed By: #### C BC, CMP, HS TROP, BNP #### [address] NRBC% 0.2 /100{WBC} Normal 0-0.5 [facility] Comment on above: Performed By: #### C BC, CMP, HS TROP, BNP #### [address] Platelet mean volume (Bld) [Entitic vol] 8.5 fL Normal 6.6-10.1 [facility] Comment on above: Performed By: #### C BC, CMP, HS TROP, BNP #### [address] Platelets (Bld) [#/Vol] 197 10*3/uL Normal 150-450 [facility] Comment on above: Performed By: #### C BC, CMP, HS TROP, BNP #### [address] RBC (Bld) [#/Vol] 5.21 10*6/uL Normal 3.90-5.60 [facility] Comment on above: Performed By: #### C BC, CMP, HS TROP, BNP #### [address] WBC (Bld) [#/Vol] 3.7 10*3/uL Low 4.1-10.5 [facility] Comment on above: Performed By: #### C BC, CMP, HS TROP, BNP #### [address] Comprehensive Metabolic Pane rigo 03-11-2022 Albumin [Mass/Vol] 4.1 g/dL Normal 3.2-5.5 [facility] Comment on above: Performed By: #### C BC, CMP, HS TROP, BNP #### [facility] [address] [place] [address] [place] Albumin/Globulin [Mass ratio] 1.5 {ratio} Normal [facility] Comment on above: Performed By: #### C BC, CMP, HS TROP, BNP #### [facility] [address] [place] [id number] [facility] ALP [Catalytic activity/Vol] 79 U/L Normal 32-92 [facility] Comment on above: Performed By: #### C BC, CMP, HS TROP, BNP #### [facility] [address] ALT [Catalytic activity/Vol] 23 U/L Normal 10-60 [facility] Comment on above: Performed By: #### C BC, CMP, HS TROP, BNP #### [facility] [address] Anion gap [Moles/Vol] 13.7 mmol/L Normal 6.0-15.0 [facility] Comment on above: Performed By: #### C BC, CMP, HS TROP, BNP #### [facility] [address] [place] [address] [place] AST [Catalytic activity/Vol] 32 U/L Normal 10-42 [facility] Comment on above: Performed By: #### C BC, CMP, HS TROP, BNP #### [facility] [address] [place] [address] [place] Bilirubin [Mass/Vol] 0.6 mg/dL Normal 0.3-1.2 [facility] Comment on above: Performed By: #### C BC, CMP, HS TROP, BNP #### [facility] [address] [place] [address] [place] Calcium [Mass/Vol] 9.2 mg/dL Normal 8.2-10.2 [facility] Comment on above: Performed By: #### C BC, CMP, HS TROP, BNP #### [facility] [address] [place] [id number] [place] Chloride [Moles/Vol] 98 mmol/L Normal 95-114 [facility] Comment on above: Performed By: #### C BC, CMP, HS TROP, BNP #### [facility] [address] CO2 [Moles/Vol] 29.0 mmol/L Normal 22.0-30.0 [facility] Comment on above: Performed By: #### C BC, CMP, HS TROP, BNP #### [facility] [address] Creatinine [Mass/Vol] 0.86 mg/dL Normal 0.64-1.27 [facility] Comment on above: Performed By: #### C BC, CMP, HS TROP, BNP #### [facility] [address] Creatinine Clr Calc Pharmacy 91.63 [facility] Comment on above: Result Comment: PERF ORMED BY: [place] [address] PATHOLOGIST [employer] WORKER EYAD HOWARD M.D. Performed By: #### C BC, CMP, HS TROP, BNP #### [address] Estimated GFR ( Jessica > 60 [facility] Comment on above: Result Comment: GFR estimated reference range: According to KDOQI guidelines, <60 ml/min/1.73m2 is sufficient to diagnose a patient with chronic kidney disease. Performed By: #### C BC, CMP, HS TROP, BNP #### [address] Estimated GFR (Non- Am > 60 [facility] Comment on above: Performed By: #### C BC, CMP, HS TROP, BNP #### [place] [address] [place] Globulin (S) [Mass/Vol] 2.8 g/dL [facility] Comment on above: Performed By: #### C BC, CMP, HS TROP, BNP #### [facility] [address] Glucose [Mass/Vol] 91 mg/dL Normal 70-100 [facility] Comment on above: Result Comment: [place] Glucose Reference Range is dependent on time and content of last meal. Glucose of more than 200 mg/dL in a nonstressed, ambulatory subject supports the diagnosis of Diabetes Mellitus. ADA recommended reference range Performed By: #### C BC, CMP, HS TROP, BNP #### [facility] [address] Potassium [Moles/Vol] 3.7 mmol/L Normal 3.5-5.1 [facility] Comment on above: Performed By: #### C BC, CMP, HS TROP, BNP #### [facility] [address] [place] [address] [place] Protein [Mass/Vol] 6.9 g/dL Normal 6.1-7.9 [facility] Comment on above: Performed By: #### C BC, CMP, HS TROP, BNP #### [facility] [address] [place] [address] [place] Sodium [Moles/Vol] 137 mmol/L Normal 136-146 [facility] Comment on above: Performed By: #### C BC, CMP, HS TROP, BNP #### [facility] [address] [place] [address] [place] Urea nitrogen [Mass/Vol] 10 mg/dL Normal 9-23 [facility] Comment on above: Performed By: #### C BC, CMP, HS TROP, BNP #### [facility] [address] [place] [address] [place] Creatinine and Glomerular fi ltration rate.predicted panel (S/P/Bld)Ordered By: Yo Blood on 03-11-2022 Creatinine [Mass/Vol] 0.86 mg/dL 0.64-1.27 [facility] ECG 12 lead ECGon 03-11-2022 ECG 12 lead ECG [facility] [address] [place] [address] Electrocardiograph Report Signed Patient: Fredrick Stroud MR#: [id number] 427 : 1950 Acct:[id number] Age/Sex: 71 / M ADM Date: 03/11/22 [...] voltage QRS Confirmed by Yo BLOOD DO ([id number]) on 03/11/2022 9:03:33 PM Referred By: Electronically Signed By:Yo BLOOD DO Transcribed By: MUS Signed By Yo Blood DO 0 03/11/222102 [facility] ECG 12 lead ECG [facility] [address] [place] [address] Electrocardiograph Report Signed Patient: Fredrick Stroud MR#: [id number] 427 : 1950 Acct:[id number] Age/Sex: 71 / M ADM Date: 03/11/22 Loc: ER Room: Type: [facility] ER Attending Dr: Ordering Provider: Yo Blood [...] voltage QRS Confirmed by Yo BLOOD DO ([id number]) on 03/11/2022 7:52:28 PM Referred By: Electronically Signed By:Yo BLOOD DO Transcribed By: MUS Signed By Yo Blood DO 0 03/11/221951 [facility] Eosinophils Auto (Bld) [#/Vo l]Ordered By: Yo Blood on 03-11-2022 Eosinophils (Bld) [#/Vol] 0.0 10*3/uL 0.0-0.45 [facility] Eosinophils/100 WBC Auto (Bl d)Ordered By: Yo Blood on 03-11-2022 Eosinophils/100 WBC (Bld) 0.4 % . [facility] Erythrocyte distribution wid th Auto (RBC) [Ratio]Ordered By: Yo Blood on 03-11-2022 Erythrocyte distribution width (RBC) [Ratio] 14.0 % 12.0-14.8 [facility] Estimated glomerular filtrat ion rate (GFR) non- AmericanOrdered By: Yo Blood on 03-11-2022 GFR/1.73 sq M.predicted among non-blacks MDRD (S/P/Bld) [Vol rate/Area] > 60 mL/Min [facility] Globulin Calc (S) [Mass/Vol] Ordered By: Yo Blood on 03-11-2022 Globulin (S) [Mass/Vol] 2.8 g/dL [facility] Hematocrit Auto (Bld) [Volum e fraction]Ordered By: Yo Blood on 03-11-2022 Hematocrit (Bld) [Volume fraction] 46.7 % 38.8-50.0 [facility] Hemoglobin [Mass/volume] in BloodOrdered By: Yo Blood on 03-11-2022 Hemoglobin (Bld) [Mass/Vol] 15.3 g/dL 13.0-17.0 [facility] Laboratory - Chemistry and C hemistry - challengeOrdered By: Yo Blood on 03-11-2022 Natriuretic peptide B (Bld) [Mass/Vol] 101.0 pg/mL 5-100 [facility] Leukocytes [#/volume] correc vlad for nucleated erythrocytes in Blood by Automated counOrdered By: Yo Blood on 03-11-2022 WBC corrected for nucl RBC Auto (Bld) [#/Vol] 3.7 10*3/uL 4.1-10.5 [facility] Lymphocytes Auto (Bld) [#/Vo l]Ordered By: Yo Blood on 03-11-2022 Lymphocytes (Bld) [#/Vol] 1.1 10*3/uL 1.00-4.8 [facility] Lymphocytes/100 WBC Auto (Bl d)Ordered By: Yo Blood on 03-11-2022 Lymphocytes/100 WBC (Bld) 29.0 % . [facility] MCH Auto (RBC) [Entitic mass ]Ordered By: Yo Blood on 03-11-2022 MCH (RBC) [Entitic mass] 29.4 pg 27.5-35.2 [facility] MCHC Auto (RBC) [Mass/Vol]Or dered By: Yo Blood on 03-11-2022 MCHC (RBC) [Mass/Vol] 32.8 g/dL 32.5-35.6 [facility] MCV Auto (RBC) [Entitic vol] Ordered By: Yo Blood on 03-11-2022 MCV (RBC) [Entitic vol] 89.6 fL 83.5-101 [facility] Monocyte distribution width [Entitic volume] in Blood by AutomatedOrdered By: Yo Blood on 03-11-2022 Monocyte distribution width Auto (Bld) [Entitic vol] 20.67 % 0.00-20.00 [facility] Comment on above: For adults in ED, MD W > 20.0 may be associated with a higher risk of sepsis during the first 12 hrs of hospital admission Monocytes Auto (Bld) [#/Vol] Ordered By: Yo Blood on 03-11-2022 Monocytes (Bld) [#/Vol] 0.8 10*3/uL 0.0-0.8 [facility] Monocytes/100 WBC Auto (Bld) Ordered By: Yo Blood on 03-11-2022 Monocytes/100 WBC (Bld) 20.9 % . [facility] Neutrophils Auto (Bld) [#/Vo l]Ordered By: Yo Blood on 03-11-2022 Neutrophils (Bld) [#/Vol] 1.8 10*3/uL 1.8-7.7 [facility] Neutrophils/100 WBC Auto (Bl d)Ordered By: Yo Blood on 03-11-2022 Neutrophils/100 WBC (Bld) 48.6 % . [facility] No Panel InformationOrdered By: Yo Blood on 03-11-2022 SARS Antigen (LFIA) [facility] Estimated GFR () > 60 mL/Min [facility] Comment on above: GFR estimated refere nce range: According to KDOQI guidelines, <60 ml/min/1.73m2 is sufficient to diagnose a patient with chronic kidney disease. Pharmacy Creatinine Clearance (Chem 91.63 [facility] Nucleated erythrocytes [Pres ence] in Blood by Automated countOrdered By: Yo Blood on 03-11-2022 Nucleated RBC Auto Ql (Bld) 0.2 /100{WBC} 0-0.5 [facility] Platelet mean volume Auto (B ld) [Entitic vol]Ordered By: Yo Blood on 03-11-2022 Platelet mean volume (Bld) [Entitic vol] 8.5 fL 6.6-10.1 [facility] Platelets Auto (Bld) [#/Vol] Ordered By: Yo Blood on 03-11-2022 Platelets (Bld) [#/Vol] 197 10*3/uL 150-450 [facility] Protein [Mass/volume] in Ser um or PlasmaOrdered By: Yo Blood on 03-11-2022 Protein [Mass/Vol] 6.9 g/dL 6.1-7.9 [facility] RBC Auto (Bld) [#/Vol]Ordere d By: Yo Blood on 03-11-2022 RBC (Bld) [#/Vol] 5.21 10*6/uL 3.90-5.60 [facility] Serum or plasma alanine sullivan otransferase measurement without P-5'-P (enzymatic activiOrdered By: Yo Blood on 03-11-2022 ALT No additional P-5'-P [Catalytic activity/Vol] 23 U/L 10-60 [facility] Serum or plasma albumin/glob ulin mass ratioOrdered By: Yo Blood on 03-11-2022 Albumin/Globulin [Mass ratio] 1.5 {ratio} [facility] Serum or plasma alkaline faviola sphatase measurement (enzymatic activity/volume)Ordered By: Yo Blood on 03-11-2022 ALP [Catalytic activity/Vol] 79 U/L 32-92 [facility] Serum or plasma anion gap de terminationOrdered By: Yo Blood on 03-11-2022 Anion gap [Moles/Vol] 13.7 mmol/L 6.0-15.0 [facility] Serum or plasma aspartate am inotransferase measurement (enzymatic activity/volume)Ordered By: Yo Blood on 03-11-2022 AST [Catalytic activity/Vol] 32 U/L 10-42 [facility] Serum or plasma calcium echo urement (mass/volume)Ordered By: Yo Blood on 03-11-2022 Calcium [Mass/Vol] 9.2 mg/dL 8.2-10.2 [facility] Serum or plasma chloride tessie surement (moles/volume)Ordered By: Yo Blood on 03-11-2022 Chloride [Moles/Vol] 98 mmol/L 95-114 [facility] Serum or plasma glucose echo urement (mass/volume)Ordered By: Yo Blood on 03-11-2022 Glucose [Mass/Vol] 91 mg/dL 70-100 [facility] Comment on above: ADA recommended refe rence rangeRandom Glucose Reference Range is dependent on time and content of last meal. Glucose of more than 200 mg/dL in a nonstressed, ambulatory subject supports the diagnosis of Diabetes Mellitus. Serum or plasma potassium me asurement (moles/volume)Ordered By: Yo Blood on 03-11-2022 Potassium [Moles/Vol] 3.7 mmol/L 3.5-5.1 [facility] Serum or plasma sodium measu rement (moles/volume)Ordered By: Yo Blood on 03-11-2022 Sodium [Moles/Vol] 137 mmol/L 136-146 [facility] Serum or plasma total biliru bin measurement (mass/volume)Ordered By: Yo Blood on 03-11-2022 Bilirubin [Mass/Vol] 0.6 mg/dL 0.3-1.2 [facility] Serum or plasma total carbon dioxide measurement (moles/volume)Ordered By: Yo Blood on 03-11-2022 CO2 [Moles/Vol] 29.0 mmol/L 22.0-30.0 [facility] Serum or plasma urea nitroge n measurement (mass/volume)Ordered By: Yo Blood on 03-11-2022 Urea nitrogen [Mass/Vol] 10 mg/dL 9-23 [facility] Gertrude Ag Negativeon 03-11-19 Gertrude Ag Negative Negative Normal Negative [facility] Comment on above: Result Comment: This is a duplicate Gertrude SARS Antigen (OLY) result to be used for statistical tracking purpose only. PERFORMED BY: [place] [address] PATHOLOGIST [employer] WORKER EYAD HOWARD M.D. Performed By: #### C OVID-19 GERTRUDE, SOFIANEG #### [place] [id number] [facility] Troponin I High Sensitivityo n 03-11-2022 Troponin I High Sensitivity 9 pg/mL Normal 0-20 [facility] Comment on above: Result Comment: PERF ORMED BY: [place] [address] PATHOLOGIST [employer] WORKER EYAD HOWARD M.D. Performed By: #### C BC, CMP, HS TROP, BNP #### [address] [address] [facility] Troponin I.cardiac [Mass/vol ume] in Serum or Plasma by High sensitivity methodOrdered By: Yo Blood on 03-11-2022 Troponin I.cardiac High sensitivity method [Mass/Vol] 9 pg/mL 0-20 [facility] WBC Auto (Bld) [#/Vol]Ordere d By: Yo Bolod on 03-11-2022 WBC (Bld) [#/Vol] 3.7 10*3/uL 4.1-10.5 [facility] XR chest 2V*on 03-11-2022 XR chest 2V* [facility] [address] [place], [place] [id number] XRay Report Signed Patient: Fredrick Stroud MR#: [id number] 427 : 1950 Acct:[id number] Age/Sex: 71 / M ADM Date: 03/11/22 Loc: ER Room: Type: PRE ER Attending Dr: Copies to: SIDDHARTH LIRA Ordering Provider: SIDDHARTH LIRA Date of Service: [...] 03/11/22 1339 Signed By: 03/11/22 1342 Normal [facility] XR hip LT min 2V(w/wo pelvis )*on 09-26-2021 XR hip LT min 2V(w/wo pelvis)* [facility] [address] [place] [address] XRay Report Signed Patient: Fredrick Stroud MR#: [id number] 427 : 1950 Acct:[id number] Age/Sex: 70 / M ADM Date: 09/26/21 Loc: [facility] [place]: Type: [facility] Attending Dr: Shahriar Dhillon II, MD Copies [...] Tanner MD 09/26/21 1526 Signed By: 09/26/21 1527 [facility] XR hip LT min 2V(w/wo pelvis )*on 08-15-2021 XR hip LT min 2V(w/wo pelvis)* [address] [address] XRay Report Signed Patient: Fredrick Stroud MR#: [id number] 427 : 1950 Acct:[id number] Age/Sex: 70 / M ADM Date: 08/15/21 Loc: [facility] Room: Type: [facility] Attending Dr: Shahriar Dhillon II, MD Copies [...] COMPLICATION. Impression dictated by: Dandy Stevenson Jr., D.O.08/15/2021 2:40 PM Dictation Location: RADIO-PC-13 Transcribed By: ADRIAN 08/15/21 1440 Dictated By: Dandy Stevenson Jr, DO 08/15/21 1439 Signed By: 08/15/21 1440 [facility] XR hip LT min 2V(w/wo pelvis)* [facility] [employer] Other XR hip LT min 2V(w/wo pelvis)* [facility] [employer] Other XR hip LT min 2V(w/wo pelvis)* [address] [place] [address] [employer] Other XR hip LT min 2V(w/wo pelvis)* [place] [address] [employer] Other XR hip LT min 2V(w/wo pelvis)* XRay Report [employer] Other XR hip LT min 2V(w/wo pelvis)* Signed [employer] Other XR hip LT min 2V(w/wo pelvis)* Patient: Fredrick Stroud MR#: [id number] [employer] Other XR hip LT min 2V(w/wo pelvis)* 427 [employer] Other XR hip LT min 2V(w/wo pelvis)* : 1950 Acct:[id number] [employer] Other XR hip LT min 2V(w/wo pelvis)* Age/Sex: 70 / M ADM Date: 08/15/21 [employer] Other XR hip LT min 2V(w/wo pelvis)* Loc: [facility] Room: Type: [facility] [employer] Other XR hip LT min 2V(w/wo pelvis)* Attending Dr: Shahriar Dhillon II, MD [employer] Other XR hip LT min 2V(w/wo pelvis)* Copies to: Shahriar Dhillon MD [employer] Other XR hip LT min 2V(w/wo pelvis)* Ordering Provider: Shahriar Dhillon MD [employer] Other XR hip LT min 2V(w/wo pelvis)* Date of Service: 08/15/21 [employer] Other XR hip LT min 2V(w/wo pelvis)* XR/XR hip LT min 2V(w/wo pelvis)*: Aftercare following joint replacement [employer] Other XR hip LT min 2V(w/wo pelvis)* surgery [employer] Other XR hip LT min 2V(w/wo pelvis)* LEFT HIP - 2 views: 1 view pelvis [employer] Other XR hip LT min 2V(w/wo pelvis)* CLINICAL HISTORY: Follow-up left GEOVANI [employer] Other XR hip LT min 2V(w/wo pelvis)* COMPARISON: Hip series 07/02/2021 [employer] Other XR hip LT min 2V(w/wo pelvis)* FINDINGS: 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 Prostate radiation [employer] Other XR hip LT min 2V(w/wo pelvis)* seeds. Mild degenerative changes right hip. [employer] Other XR hip LT min 2V(w/wo pelvis)* XR/XR hip LT min 2V(w/wo pelvis)* [employer] Other XR hip LT min 2V(w/wo pelvis)* IMPRESSION: [employer] Other XR hip LT min 2V(w/wo pelvis)* NO EVIDENCE OF HARDWARE COMPLICATION. [employer] Other XR hip LT min 2V(w/wo pelvis)* Impression dictated by: Dandy Stevenson Jr., D.ODre08/15/2021 2:40 PM [employer] Other XR hip LT min 2V(w/wo pelvis)* Dictation Location: RADIO-PC-13 [employer] Other XR hip LT min 2V(w/wo pelvis)* Transcribed By: PWS 08/15/21 1440 [employer] Other XR hip LT min 2V(w/wo pelvis)* Dictated By: Dandy Stevenson Jr, DO 08/15/21 1439 [employer] Other XR hip LT min 2V(w/wo pelvis)* Signed By: [employer] Other XR hip LT min 2V(w/wo pelvis)* 08/15/21 1440 [employer] Other Basic Metabolic Panelon 06-24 Calcium [Mass/Vol] 8.6 mg/dL Normal 8.2-10.2 [facility] Comment on above: Performed By: #### C BC, BMP #### [facility] [address] [place] [address] [place] Chloride [Moles/Vol] 102 mmol/L Normal 95-114 [facility] Comment on above: Performed By: #### C BC, BMP #### [facility] [address] CO2 [Moles/Vol] 25.5 mmol/L Normal 22.0-30.0 [facility] Comment on above: Performed By: #### C BC, BMP #### [facility] [address] Creatinine [Mass/Vol] 0.96 mg/dL Normal 0.64-1.27 [facility] Comment on above: Performed By: #### C BC, BMP #### [facility] [address] [place] [address] [place] Creatinine Clr Calc Pharmacy 81.73 [facility] Comment on above: Result Comment: PERF ORMED BY: [place] [address] PATHOLOGIST [employer] WORKER EYAD HOWARD M.D. Performed By: #### C BC, BMP #### [address] Estimated GFR ( Jessica > 60 [facility] Comment on above: Result Comment: GFR estimated reference range: According to KDOQI guidelines, <60 ml/min/1.73m2 is sufficient to diagnose a patient with chronic kidney disease. Performed By: #### C BC, BMP #### [place] [address] [place] Estimated GFR (Non- Am > 60 [facility] Comment on above: Performed By: #### C BC, BMP #### [address] Glucose [Mass/Vol] 167 mg/dL High 70-100 [facility] Comment on above: Result Comment: [facility] Glucose Reference Range is dependent on time and content of last meal. Glucose of more than 200 mg/dL in a nonstressed, ambulatory subject supports the diagnosis of Diabetes Mellitus. ADA recommended reference range Performed By: #### C BC, BMP #### [address] Potassium [Moles/Vol] 4.4 mmol/L Normal 3.5-5.1 [facility] Comment on above: Performed By: #### C BC, BMP #### [address] Sodium [Moles/Vol] 135 mmol/L Low 136-146 [facility] Comment on above: Performed By: #### C BC, BMP #### [address] Urea nitrogen [Mass/Vol] 18 mg/dL Normal 9-23 [facility] Comment on above: Performed By: #### C BC, BMP #### [address] Complete Blood Count Auto Di ffon 07-03-2021 Basophils (Bld) [#/Vol] 0.0 10*3/uL Normal 0.0-0.2 [facility] Comment on above: Result Comment: PERF ORMED BY: [place] [address] PATHOLOGIST [employer] WORKER EYAD HOWARD M.D. Performed By: #### C BC, BMP #### [address] Basophils/100 WBC (Bld) 0.3 % Normal . [facility] Comment on above: Performed By: #### C BC, BMP #### [address] Eosinophils (Bld) [#/Vol] 0.0 10*3/uL Normal 0.0-0.45 [facility] Comment on above: Performed By: #### C BC, BMP #### [facility] [address] Eosinophils/100 WBC (Bld) 0.0 % Normal . [facility] Comment on above: Performed By: #### C BC, BMP #### [facility] [address] Erythrocyte distribution width (RBC) [Ratio] 14.2 % Normal 12.0-14.8 [facility] Comment on above: Performed By: #### C BC, BMP #### [address] Hematocrit (Bld) [Volume fraction] 32.9 % Low 38.8-50.0 [facility] Comment on above: Performed By: #### C BC, BMP #### [address] Hemoglobin (Bld) [Mass/Vol] 11.2 g/dL Low 13.0-17.0 [facility] Comment on above: Performed By: #### C BC, BMP #### [address] Lymphocytes (Bld) [#/Vol] 0.6 10*3/uL Low 1.00-4.8 [facility] Comment on above: Performed By: #### C BC, BMP #### [place] [address] [place] Lymphocytes/100 WBC (Bld) 4.7 % Normal . [facility] Comment on above: Performed By: #### C BC, BMP #### [facility] [address] MCH (RBC) [Entitic mass] 30.1 pg Normal 27.5-35.2 [facility] Comment on above: Performed By: #### C BC, BMP #### [address] MCV (RBC) [Entitic vol] 88.7 fL Normal 83.5-101 [facility] Comment on above: Performed By: #### C BC, BMP #### [facility] [address] [place] [id number] [place] Mean Corpuscular HGB Conc 33.9 g/dL Normal 32.5-35.6 [facility] Comment on above: Performed By: #### C BC, BMP #### [facility] [address] [place] [address] [place] Monocytes (Bld) [#/Vol] 1.0 10*3/uL High 0.0-0.8 [facility] Comment on above: Performed By: #### C BC, BMP #### [facility] [address] [place] [address] [place] Monocytes/100 WBC (Bld) 8.3 % Normal . [facility] Comment on above: Performed By: #### C BC, BMP #### [facility] [address] [place] [address] [place] Neutrophils (Bld) [#/Vol] 10.9 10*3/uL High 1.8-7.7 [facility] Comment on above: Performed By: #### C BC, BMP #### [facility] [address] [place] [id number] [place] Neutrophils/100 WBC (Bld) 86.7 % Normal . [facility] Comment on above: Performed By: #### C BC, BMP #### [facility] [address] [place] [id number] [place] Nucleated RBC/100 WBC (Bld) [Ratio] 0.0 % Normal 0-0.5 [facility] Comment on above: Performed By: #### C BC, BMP #### [facility] [address] [place] [id number] [place] Platelet mean volume (Bld) [Entitic vol] 8.4 fL Normal 6.6-10.1 [facility] Comment on above: Performed By: #### C BC, BMP #### [facility] [address] [place] [id number] [place] Platelets (Bld) [#/Vol] 210 10*3/uL Normal 150-450 [facility] Comment on above: Performed By: #### C BC, BMP #### [facility] [address] RBC (Bld) [#/Vol] 3.71 10*6/uL Low 3.90-5.60 [facility] Comment on above: Performed By: #### C BC, BMP #### [facility] [address] [place] [id number] [facility] WBC (Bld) [#/Vol] 12.5 10*3/uL High 4.5-11.0 [facility] Comment on above: Performed By: #### C BC, BMP #### [facility] [address] ECG 12 lead ECGon 07-02-2021 ECG 12 lead ECG [facility] [address] [place] [address] Electrocardiograph Report Signed Patient: Fredrick Stroud MR#: [id number] 427 : 1950 Acct:[id number] Age/Sex: 70 / M ADM Date: 07/02/21 Loc: [place] Room: Type: [facility] Attending Dr: Shahriar Dhillon II, MD [...] 1:06:17 PM Referred By: Electronically Signed By:MORENO ROSARIO DO Transcribed By: MUS Signed By Moreno Rosario DO 07/02 1306 Normal [facility] [place] 07-02-2021 L - -------- Specimen: [id number] Received: 07/02/21 Status: LORETTA Solis Num: [id number] Spec Type: Surgical Subm Dr: Shahriar Dhillon MD Tissues: A Femoral Head - Other than Fracture (L HIP) Procedures: HE Stain, Gross/Micro L3, Decal -------- Patient Age/Sex Location Account Attending Physician -------- Fredrick Stroud 70/Jennifer WolfN [id number] Shahriar Dhillon MD -------- SPEC NUM: [id number] RECD: 07/02/21 STATUS: LORETTA SOLIS NUM: [id number] MILY: 07/02/21- [facility] DR: Shahriar Dhillon MD ENTERED: 07/02/21 [facility] DR: SPEC TYPE: Surgical DEPT: S ORDERED: HE Stain, [...] bone fragments and scant soft tissue. A medical billing representative section of bone, following formalin fixation and decalcification is submitted in cassette A 1. ([id number]/[id number]) -------- Specimen: [id number] Received: 07/02/21 Status: LORETTA Solis Num: [id number] Spec Type: Surgical Subm Dr: Shahriar Dhillon MD Tissues: A Femoral Head - Other than Fracture (L HIP) Procedures: HE Stain, Gross/Micro L3, Decal -------- Patient: Igor Stroudpattie Leung [id number] (Continued) -------- Specimen: [id number] Received: 07/02/21 (Continued) Signed (signature on file) Kaycee Curry MD 07/04/21 1625 -------- Specimen: [id number] Received: 07/02/21 Status: KEITHKimberly Solis Num: [id number] Spec Type: Surgical Subm Dr: Shahriar Dhillon MD Tissues: A Femoral Head - Other than Fracture (L HIP) Procedures: HE Stain, Gross/Micro L3, Decal -------- Patient: JuanFredrick [id number] (Continued) -------- Specimen: [id number] Received: 07/02/21 (Continued) Microscopic Description One glass slide with H E stained material has been examined. The microscopic findings support the above pathologic diagnosis. CPT Codes 36864, 46535 -------- -------- Specimen: [id number] Received: 07/02/21 Status: LOR[facility] Num: [id number] Spec Type: Surgical Subm Dr: Shahriar Dhillon MD Tissues: A Femoral Head - Other than Fracture (L HIP) Procedures: HE Stain, Gross/Micro L3, Decal -------- Patient: Fredrick Stroud [id number] (Continued) -------- Signed (signature on file) Kaycee Curry MD 07/04/21 1625 [facility] XR hip LT 1Von 07-02-2021 XR hip LT [address]V [address] [address] XRay Report Signed Patient: Fredrick Stroud MR#: [id number] 427 : 1950 Acct:[id number] Age/Sex: 70 / M ADM Date: 07/02/21 Loc: [place] Room: Type: [facility] Attending Dr: Shahriar Dhillon II, [...] STUDY.. Impression dictated by: Dandy Stevenson Jr., DAdelaida07/02/2021 9:26 AM Dictation Location: [place] [address] Transcribed By: [facility] 07/02/21925 Dictated By: Dandy Stevenson Jr, DO 07/02/21922 Signed By: 07/02/21925 [facility] XR low pelvis w/LT x-table h ipon 07-02-2021 XR low pelvis w/LT x-table hip [address] [address] XRay Report Signed Patient: Fredrick Stroud MR#: [id number] 427 : 1950 Acct:[id number] Age/Sex: 70 / M ADM Date: 07/02/21 Loc: [place] Room: Type: [facility] Attending Dr: Shahriar Dhillon II, [...] Ariana Tanner M.D.07/02/2021 12:05 PM Dictation Location: [facility]- Transcribed By: [facility] 07/02/21 1205 Dictated By: Ariana Tanner MD 07/02/21 1204 Signed By: 07/02/21 1205 Normal [facility] COVID[facility]19 [facility] SARS-CoV-2 (COVID-19) RNA FABI+probe Ql (Unsp spec) Negative Normal Negative [facility] Comment on above: Order Comment: Healt hcare Worker?: N Result Comment: Testing for SARS-CoV-2 by RT-PCR This test was developed and its performance characteristics determined by [employer], [employer] ([employer]) and validated at the [facility]. This test has not been FDA [...] is terminated or revoked sooner. PERFORMED BY: [place] [address] PATHOLOGIST [employer]AFER POLISHING LEAD WORKER EYAD HOWARD M.D. Performed By: #### C BC, CMP, HS TROP, BNP #### [facility] [address] [place] [address] [facility] Basic Metabolic Panelon 05-26 Calcium [Mass/Vol] 9.4 mg/dL Normal 8.2-10.2 [facility] Comment on above: Result Comment: PERF ORMED BY: [place] [address] PATHOLOGIST [employer]AFER [employer]ISH[employer] LEAD WORKER EYAD OHWARD M.D. Performed By: #### C OVID-19 GERTRUDE, SOFIANEG #### [facility] [address] Chloride [Moles/Vol] 103 mmol/L Normal 95-114 [facility] Comment on above: Performed By: #### C OVID-19 GERTRUDE, SOFIANEG #### [facility] [address] [place], [place] [id number] [facility] CO2 [Moles/Vol] 26.4 mmol/L Normal 22.0-30.0 [facility] Comment on above: Performed By: #### C OVID-19 GERTRUDE, SOFIANEG #### [facility] [address] Creatinine [Mass/Vol] 0.89 mg/dL Normal 0.64-1.27 [facility] Comment on above: Performed By: #### C OVID-19 GERTRUDE, SOFIANEG #### [facility] [address] [place] [id number] [place] Estimated GFR ( Jessica > 60 Normal [facility] Comment on above: Result Comment: GFR estimated reference range: According to KDOQI guidelines, <60 ml/min/1.73m2 is sufficient to diagnose a patient with chronic kidney disease. Performed By: #### C OVID-19 GERTRUDE, SOFIANEG #### [facility] [address] Estimated GFR (Non- Am > 60 Normal [facility] Comment on above: Performed By: #### C OVID-19 GERTRUDE, SOFIANEG #### [facility] [address] [place] [address] [place] Glucose [Mass/Vol] 101 mg/dL High 70-100 [facility] Comment on above: Result Comment: [facility] Glucose Reference Range is dependent on time and content of last meal. Glucose of more than 200 mg/dL in a nonstressed, ambulatory subject supports the diagnosis of Diabetes Mellitus. ADA recommended reference range Performed By: #### C OVID-19 GERTRUDE, SOFIANEG #### [facility] [address] Potassium [Moles/Vol] 4.4 mmol/L Normal 3.5-5.1 [facility] Comment on above: Performed By: #### C OVID-19 GERTRUDE, SOFIANEG #### [facility] [address] [place] [address] [place] Sodium [Moles/Vol] 139 mmol/L Normal 136-146 [facility] Comment on above: Performed By: #### C OVID-19 GERTRUDE, SOFIANEG #### [facility] [address] [place] [address] [place] Urea nitrogen [Mass/Vol] 23 mg/dL Normal 9-23 [facility] Comment on above: Performed By: #### C OVID-19 GERTRUDE, SOFIANEG #### [facility] [address] Complete Blood Count Auto Di ffon 06-18-2021 Basophils (Bld) [#/Vol] 0.0 10*3/uL Normal 0.0-0.2 [facility] Comment on above: Result Comment: PERF ORMED BY: [place] [address] PATHOLOGIST [employer] LEAD WORKER EYAD HOWARD M.D. Performed By: #### C OVID-19 GERTRUDE, SOFIANEG #### [address] Basophils/100 WBC (Bld) 0.9 % Normal . [facility] Comment on above: Performed By: #### C OVID-19 GERTRUDE, SOFIANEG #### [address] Eosinophils (Bld) [#/Vol] 0.1 10*3/uL Normal 0.0-0.45 [facility] Comment on above: Performed By: #### C OVID-19 GERTRUDE, SOFIANEG #### [address] Eosinophils/100 WBC (Bld) 1.4 % Normal . [facility] Comment on above: Performed By: #### C OVID-19 GERTRUDE, SOFIANEG #### [address] Erythrocyte distribution width (RBC) [Ratio] 14.0 % Normal 12.0-14.8 [facility] Comment on above: Performed By: #### C OVID-19 GERTRUDE, SOFIANEG #### [address] Hematocrit (Bld) [Volume fraction] 41.8 % Normal 38.8-50.0 [facility] Comment on above: Performed By: #### C OVID-19 GERTRUDE, SOFIANEG #### [address] Hemoglobin (Bld) [Mass/Vol] 14.2 g/dL Normal 13.0-17.0 [facility] Comment on above: Performed By: #### C OVID-19 GERTRUDE, SOFIANEG #### [address] Lymphocytes (Bld) [#/Vol] 1.1 10*3/uL Normal 1.00-4.8 [facility] Comment on above: Performed By: #### C OVID-19 GERTRUDE, SOFIANEG #### [facility] [address] [place] [address] [place] Lymphocytes/100 WBC (Bld) 22.7 % Normal . [facility] Comment on above: Performed By: #### C OVID-19 GERTRUDE, SOFIANEG #### [facility] [address] MCH (RBC) [Entitic mass] 30.4 pg Normal 27.5-35.2 [facility] Comment on above: Performed By: #### C OVID-19 GERTRUDE, SOFIANEG #### [address] MCV (RBC) [Entitic vol] 89.7 fL Normal 83.5-101 [facility] Comment on above: Performed By: #### C OVID-19 GERTRUDE, SOFIANEG #### [address] Mean Corpuscular HGB Conc 33.9 g/dL Normal 32.5-35.6 [facility] Comment on above: Performed By: #### C OVID-19 GERTRUDE, SOFIANEG #### [place] [address] [place] Monocytes (Bld) [#/Vol] 0.5 10*3/uL Normal 0.0-0.8 [facility] Comment on above: Performed By: #### C OVID-19 GERTRUDE, SOFIANEG #### [place] [address] [place] Monocytes/100 WBC (Bld) 11.2 % Normal . [facility] Comment on above: Performed By: #### C OVID-19 GERTRUDE, SOFIANEG #### [facility] [address] [place] [address] [place] Neutrophils (Bld) [#/Vol] 3.1 10*3/uL Normal 1.8-7.7 [facility] Comment on above: Performed By: #### C OVID-19 GERTRUDE, SOFIANEG #### [facility] [address] [place] [address] [place] Neutrophils/100 WBC (Bld) 63.8 % Normal . [facility] Comment on above: Performed By: #### C OVID-19 GERTRUDE, SOFIANEG #### [facility] [address] [place] [address] Nucleated RBC/100 WBC (Bld) [Ratio] 0.1 % Normal 0-0.5 [facility] Comment on above: Performed By: #### C OVID-19 GERTRUDE, SOFIANEG #### [address] Platelet mean volume (Bld) [Entitic vol] 8.2 fL Normal 6.6-10.1 [facility] Comment on above: Performed By: #### C OVID-19 GERTRUDE, SOFIANEG #### [address] Platelets (Bld) [#/Vol] 243 10*3/uL Normal 150-450 [facility] Comment on above: Performed By: #### C OVID-19 GERTRUDE, SOFIANEG #### [place] [address] [place] RBC (Bld) [#/Vol] 4.67 10*6/uL Normal 3.90-5.60 [facility] Comment on above: Performed By: #### C OVID-19 GERTRUDE, SOFIANEG #### [address] WBC (Bld) [#/Vol] 4.8 10*3/uL Normal 4.5-11.0 [facility] Comment on above: Performed By: #### C OVID-19 GERTRUDE, SOFIANEG #### [place] [address] [place] ECG 12 lead ECGon 06-18-2021 ECG 12 lead ECG [facility] [place] [address] [place] [address] Electrocardiograph Report Signed Patient: Fredrick Stroud MR#: [id number] 427 : 1950 Acct:[id number] Age/Sex: 70 / M ADM Date: 06/18/21 Loc: [place] Room: Type: [facility] Attending Dr: Shahriar Dhillon II, MD Ordering [...] was found Confirmed by WISAM TORRE MD ([facility]) on 06/19/2021 10:06:42 AM Referred By: RAMÓN DHILLON Electronically Signed By:WISAM TORRE MD Transcribed By: MUS Signed By Wisam Torre MD 0 06/19/21 1006 Normal [facility] Fructosamineon 06-18-2021 Fructosamine 217 umol/L Normal 0-285 [facility] Comment on above: Result Comment: Publ ished reference interval for apparently healthy subjects between age 20 and 60 is 205 - 285 umol/L and in a poorly controlled diabetic population is 228 - 563 umol/L with a mean of 396 umol/L. Performed at: [facility] [place] [id number] Quality Control Auditor: Benton Caro PhD, Phone: [phone] PERFORMED BY: [place] [address] PATHOLOGIST WAFER POLISHING LEAD WORKER EYAD HOWARD M.D. Performed By: #### C OVID-19 YAIR LOREDOEG #### [address] PST Type and Screenon 2021 ABO and Rh group Nom (Bld) Blood group O Rh(D) positive Normal [facility] Comment on above: Order Comment: Date of Surgery: [id number] Result Comment: PERF ORMED BY: [address] [place] [address] PATHOLOGIST [employer] LEAD WORKER EYAD HOWARD M.D. Urinalysison 06-18-2021 Appearance (U) Clear Normal Clear [facility] Comment on above: Order Comment: Name Collection Type:: Clean-Voided Midstream Performed By: #### C BC, CMP, HS TROP, BNP #### [place] [address] [place] Bilirubin,Urine Negative Normal Negative [facility] Comment on above: Order Comment: Name Collection Type:: Clean-Voided Midstream Performed By: #### C BC, CMP, HS TROP, BNP #### [place] [address] [place] Color (U) Yellow Normal Yellow [facility] Comment on above: Order Comment: Name Collection Type:: Clean-Voided Midstream Performed By: #### C BC, CMP, HS TROP, BNP #### [place] [address] [place] Glucose Ql (U) Normal Normal Normal [facility] Comment on above: Order Comment: Name Collection Type:: Clean-Voided Midstream Performed By: #### C BC, CMP, HS TROP, BNP #### [place] [address] [place] Ketones Ql (U) Negative Normal Negative [facility] Comment on above: Order Comment: Name Collection Type:: Clean-Voided Midstream Performed By: #### C BC, CMP, HS TROP, BNP #### [facility] [address] [place] [address] [place] Leukocyte esterase Test strip Ql (U) Negative Normal Negative [facility] Comment on above: Order Comment: Name Collection Type:: Clean-Voided Midstream Performed By: #### C BC, CMP, HS TROP, BNP #### [place] [address] [place] Nitrite,Urine Negative Normal Negative [facility] Comment on above: Order Comment: Name Collection Type:: Clean-Voided Midstream Performed By: #### C BC, CMP, HS TROP, BNP #### [facility] [address] Occult Blood,Urine Negative Normal Negative [facility] Comment on above: Order Comment: Name Collection Type:: Clean-Voided Midstream Result Comment: PERF ORMED BY: [place] [address] PATHOLOGIST W[employer]ER [employer] LEAD WORKER EYAD HOWARD M.D. Performed By: #### C BC, CMP, HS TROP, BNP #### [address] pH (U) 7.5 [pH] Normal 5.0-9.0 [facility] Comment on above: Order Comment: Name Collection Type:: Clean-Voided Midstream Performed By: #### C BC, CMP, HS TROP, BNP #### [address] Protein,Urine Negative Normal Negative [facility] Comment on above: Order Comment: Name Collection Type:: Clean-Voided Midstream Performed By: #### C BC, CMP, HS TROP, BNP #### [address] Specificy [place],Urine 1.023 Normal 1.001-1.030 [facility] Comment on above: Order Comment: Name Collection Type:: Clean-Voided Midstream Performed By: #### C BC, CMP, HS TROP, BNP #### [address] Urobilinogen,Urine Normal Normal Normal [facility] Comment on above: Order Comment: Name Collection Type:: Clean-Voided Midstream Performed By: #### C BC, CMP, HS TROP, BNP #### [address] Urinalysis - AUTOMATEDon Appearance (U) CLEAR [employer] Other Bilirubin Ql (U) Negative [employer] Other Color (U) YELLOW [employer] Other Glucose Ql (U) Negative [employer] Other Hemoglobin Ql (U) Negative [employer] Other Ketones Ql (U) Negative [employer] Other Leukocyte esterase Test strip Ql (U) Negative [employer] Other Nitrite Ql (U) Negative [employer] Other pH (U) 6.0 [pH] [employer] Other Protein Ql (U) Negative [employer] Other Specific gravity (U) [Rel density] 1.010 [employer] Other Urobilinogen (U) [Mass/Vol] 0.2 mg/dL [employer] Other Urinalysis - AUTOMATED [employer] Other Vital Signs Date Time Vital Sign Value Performing Clinician Facility 02-25-2023 13:00-0500 Body temperature 98.2 [degF] Vivian Espinoza MD Work Phone: [facility] 02-25-2023 13:00-0500 Diastolic blood pressure 81 mm[Hg] Vivian Espinoza MD Work Phone: [facility] 02-25-2023 13:00-0500 Heart rate 79 /min Vivian Espinoza MD Work Phone: [facility] 02-25-2023 13:00-0500 Respiratory rate 18 /min Vivian Espinoza MD Work Phone: [facility] 02-25-2023 13:00-0500 SaO2% (BldA) [Mass fraction] 97 % Vivian Espinoza MD Work Phone: [facility] 02-25-2023 13:00-0500 Systolic blood pressure 125 mm[Hg] Vivian Espinoza MD Work Phone: [facility] 02-16-2023 22:54-0500 SaO2% (BldA) [Mass fraction] 96.1 % Vivian Espinoza MD Work Phone: [facility] 02-16-2023 03:00-0500 Body height 167.6 cm Vivian Espinoza MD Work Phone: [facility] 02-16-2023 03:00-0500 Body mass index (BMI) [Ratio] 42.52 kg/m2 Vivian Espinoza MD Work Phone: [facility] 02-16-2023 03:00-0500 Body weight 119.5 kg Vivian Espinoza MD Work Phone: [facility] 02-15-2023 20:06-0500 Body temperature 97.52 [degF] Justice Ghotrae [facility] 02-15-2023 20:06-0500 Diastolic blood pressure 63 mm[Hg] Justice Sukhwinder [facility] 02-15-2023 20:06-0500 Heart rate 70 /min Justice Ghotrae [facility] 02-15-2023 20:06-0500 Mean blood pressure 76 mm[Hg] Justice Sukhwinder [facility] 02-15-2023 20:06-0500 Respiratory rate 18 /min Justice Ghotrae [facility] 02-15-2023 20:06-0500 SaO2% (BldA) [Mass fraction] 94 % Justice Sukhwinder [facility] 02-15-2023 20:06-0500 Systolic blood pressure 101 mm[Hg] Justice Sukhwinder [facility] 02-15-2023 20:00-0500 Diastolic blood pressure 74 mm[Hg] Justice Sukhwinder [facility] 02-15-2023 20:00-0500 Heart rate 63 /min Justice Ghotrae [facility] 02-15-2023 20:00-0500 Hourly Rounding Justice Sukhwinder [facility] 02-15-2023 20:00-0500 Promise to Return Justice Ghotrae [facility] 02-15-2023 20:00-0500 SaO2% (BldA) [Mass fraction] 100 % Justice Sukhwinder [facility] 02-15-2023 20:00-0500 Systolic blood pressure 112 mm[Hg] Justice Sukhwinder [facility] 02-15-2023 19:57-0500 Diastolic blood pressure 78 mm[Hg] Justice Sukhwinder [facility] 02-15-2023 19:57-0500 Heart rate 101 /min Justice Sukhwinder [facility] 02-15-2023 19:57-0500 Mean blood pressure 90 mm[Hg] Justice Sukhwinder [facility] 02-15-2023 19:57-0500 Respiratory rate 14 /min Justice Sukhwinder [facility] 02-15-2023 19:57-0500 SaO2% (BldA) [Mass fraction] 98 % Justice Sukhwinder [facility] 02-15-2023 19:57-0500 Systolic blood pressure 113 mm[Hg] Justice Sukhwinder [facility] 02-15-2023 19:47-0500 Heart rate 85 /min Justice Sukhwinder [facility] 02-15-2023 19:47-0500 Mean blood pressure 49 mm[Hg] Justice Sukhwinder [facility] 02-15-2023 19:47-0500 Respiratory rate 14 /min Justice Sukhwinder [facility] 02-15-2023 19:34-0500 Blood Pressure Location Justice Pretty [facility] 02-15-2023 19:34-0500 Body temperature 97.52 [degF] Justice Pretty [facility] 02-15-2023 19:34-0500 Heart rate 68 /min Justice Pretty [facility] 02-15-2023 19:19-0500 Heart rate 67 /min Justice Pretty [facility] 02-15-2023 19:00-0500 Hourly Rounding Justice Pretty [facility] 02-15-2023 19:00-0500 Promise to Return Justice Pretty [facility] 02-15-2023 18:45-0500 Body temperature 97.52 [degF] Justice Pretty [facility] 02-15-2023 18:17-0500 Body temperature 97.52 [degF] Justice Pretty [facility] 02-15-2023 18:00-0500 Hourly Rounding Justice Pretty [facility] 02-15-2023 18:00-0500 Promise to Return Justice Pretty [facility] 02-15-2023 16:28-0500 Body temperature 97.88 [degF] Justice Ghotrae [facility] 08-30-2022 08:53-0400 Body height 167.64 cm Karina Melgar Work Phone: [facility] [employer] 250 DO Work Phone: 08-30-2022 08:53-0400 Body mass index (BMI) [Ratio] 38.74 kg/m2 Karina Melgar Work Phone: [facility] 250 DO Work Phone: 08-30-2022 08:53-0400 Body surface area Derived from formula 2.16 m2 Karina Melgar Work Phone: [facility] 250 DO Work Phone: 08-30-2022 08:53-0400 Body weight 108.86 kg Karina Melgar Work Phone: [facility] 250 DO Work Phone: 08-30-2022 08:53-0400 Diastolic blood pressure 62 mm[Hg] Karina Melgar Work Phone: [facility] 250 DO Work Phone: 08-30-2022 08:53-0400 Heart rate 55 /min Karina Melgar Work Phone: [facility] 250 DO Work Phone: 08-30-2022 08:53-0400 Systolic blood pressure 128 mm[Hg] Karina Melgar Work Phone: [facility] 250 DO Work Phone: 08-13-2022 13:21-0400 Body height 167.64 cm Karina Melgar Work Phone: [facility] 250 DO Work Phone: 08-13-2022 13:21-0400 Body mass index (BMI) [Ratio] 39.87 kg/m2 Karina Melgar Work Phone: [facility] 250 DO Work Phone: 08-13-2022 13:21-0400 Body surface area Derived from formula 2.19 m2 Karina Melgar Work Phone: [facility] 250 DO Work Phone: 08-13-2022 13:21-0400 Body weight 112.04 kg Karina Melgar Work Phone: [facility] 250 DO Work Phone: 08-13-2022 13:21-0400 Diastolic blood pressure 70 mm[Hg] Karina Lisa Ramón Work Phone: [facility] 250 DO Work Phone: 08-13-2022 13:21-0400 Heart rate 70 /min Karina Lisa Ramón Work Phone: [facility] 250 DO Work Phone: 08-13-2022 13:21-0400 Systolic blood pressure 136 mm[Hg] Karina Lisa Ramón Work Phone: [facility] 250 DO Work Phone: 07-05-2022 09:08-0400 Body height 167.64 cm Karina Lisa Ramón Work Phone: [facility] 600 DO Work Phone: 07-05-2022 09:08-0400 Body mass index (BMI) [Ratio] 39.54 kg/m2 Karina Lisa Ramón Work Phone: [facility] 600 DO Work Phone: 07-05-2022 09:08-0400 Body surface area Derived from formula 2.18 m2 Karina Lisa Ramón Work Phone: [facility] 600 DO Work Phone: 07-05-2022 09:08-0400 Body weight 111.13 kg Karina Lisa Ramón Work Phone: [facility] 600 DO Work Phone: 07-05-2022 09:08-0400 Diastolic blood pressure 70 mm[Hg] Karina Guardadoon Work Phone: [facility] 600 DO Work Phone: 07-05-2022 09:08-0400 Heart rate 72 /min Karnia Lisa Ramón Work Phone: [facility] 600 DO Work Phone: 07-05-2022 09:08-0400 Systolic blood pressure 138 mm[Hg] Karina Lisa Ramón Work Phone: [facility] 600 DO Work Phone: 06-20-2022 16:24-0400 Body height 167.64 cm Karina Lisa Ramón Work Phone: [facility] 250 DO Work Phone: 06-20-2022 16:24-0400 Body mass index (BMI) [Ratio] 40.03 kg/m2 Karina Lisa Ramón Work Phone: [facility] 250 DO Work Phone: 06-20-2022 16:24-0400 Body surface area Derived from formula 2.19 m2 Karina Lisa Ramón Work Phone: [facility] 250 DO Work Phone: 06-20-2022 16:24-0400 Body weight 112.49 kg Karina Lisa Ramón Work Phone: [facility] 250 DO Work Phone: 06-20-2022 16:24-0400 Diastolic blood pressure 102 mm[Hg] Karina Lisa Ramón Work Phone: [facility] 250 DO Work Phone: 06-20-2022 16:24-0400 Heart rate 76 /min Karina Lisa Ramón Work Phone: [facility] 250 DO Work Phone: 06-20-2022 16:24-0400 Systolic blood pressure 162 mm[Hg] Karina Guardadoon Work Phone: [facility] 250 DO Work Phone: 05-10-2022 14:46-0400 Body height 167.64 cm Karina Lisa Melgar Work Phone: [facility] [address] [place] Work Phone: 05-10-2022 14:46-0400 Body mass index (BMI) [Ratio] 40.19 kg/m2 Karina Guardadoon Work Phone: [facility] [address] [place] Work Phone: 05-10-2022 14:46-0400 Body surface area Derived from formula 2.2 m2 Karina Guardadoon Work Phone: [facility] [place] Work Phone: 05-10-2022 14:46-0400 Body weight 112.95 kg Karina Guardadoon Work Phone: [facility] [address] [place] Work Phone: 05-10-2022 14:46-0400 Diastolic blood pressure 80 mm[Hg] Karina Guardadoon Work Phone: [facility] [address] [place] Work Phone: 05-10-2022 14:46-0400 Heart rate 61 /min Karina Melgar Work Phone: [facility] [address] [place] Work Phone: 05-10-2022 14:46-0400 Systolic blood pressure 130 mm[Hg] Karina Melgar Work Phone: [facility] [address] [place] Work Phone: 05-02-2022 13:26-0500 Body height 167.64 cm Karina Melgar Work Phone: [facility] 600 DO Work Phone: 05-02-2022 13:26-0500 Body mass index (BMI) [Ratio] 40.19 kg/m2 Karina Melgar Work Phone: [facility] 600 DO Work Phone: 05-02-2022 13:26-0500 Body surface area Derived from formula 2.2 m2 Karina Lisa Ramón Work Phone: [facility] [address] DO Work Phone: 05-02-2022 13:26-0500 Body weight 112.95 kg Karina Lisa Ramón Work Phone: [facility] 600 DO Work Phone: 05-02-2022 13:26-0500 Diastolic blood pressure 64 mm[Hg] Karina Lisa Ramón Work Phone: [facility] 600 DO Work Phone: 05-02-2022 13:26-0500 Heart rate 62 /min Karina Lisa Ramón Work Phone: [facility] 600 DO Work Phone: 05-02-2022 13:26-0500 Systolic blood pressure 116 mm[Hg] Karina Lisa Ramón Work Phone: [facility] 600 DO Work Phone: 04-29-2022 11:48-0500 Body height 167.64 cm Karina Lisa Ramón Work Phone: [facility] 600 DO Work Phone: 04-29-2022 11:48-0500 Body mass index (BMI) [Ratio] 40.09 kg/m2 Karina Lisa Ramón Work Phone: [facility] 600 DO Work Phone: 04-29-2022 11:48-0500 Body surface area Derived from formula 2.19 m2 Karina Lisa Ramón Work Phone: [facility] 600 DO Work Phone: 04-29-2022 11:48-0500 Body weight 112.67 kg Karina Melgar Work Phone: [facility] [employer] 600 DO Work Phone: 04-29-2022 11:48-0500 Diastolic blood pressure 80 mm[Hg] Karina Guardadoon Work Phone: [facility] 600 DO Work Phone: 04-29-2022 11:48-0500 Heart rate 60 /min Karina Guardadoon Work Phone: [facility] 600 DO Work Phone: 04-29-2022 11:48-0500 Systolic blood pressure 122 mm[Hg] Karina Melgar Work Phone: [facility] [place] 600 DO Work Phone: 04-18-2022 14:45-0500 Body height 167.64 cm Karina Melgar Other [employer] Other 04-18-2022 14:45-0500 Body mass index (BMI) [Ratio] 39.54 kg/m2 Karina Melgar Other [employer] Other 04-18-2022 14:45-0500 Body weight 111.13 kg Karina Melgar Other [employer] Other 04-18-2022 14:45-0500 Diastolic blood pressure 76 mm[Hg] Karina Melgar Other [employer] Other 04-18-2022 14:45-0500 Systolic blood pressure 122 mm[Hg] Karina Melgar Other [employer] Other 03-11-2022 18:35-0500 Diastolic blood pressure 79 mm[Hg] MD Karina Melgar Work Phone: [facility] 03-11-2022 18:35-0500 Heart rate 74 /min MD Karina Melgar Work Phone: [facility] 03-11-2022 18:35-0500 Respiratory rate 20 /min MD Karina Melgar Work Phone: [facility] 03-11-2022 18:35-0500 SaO2% (BldA) [Mass fraction] 97 % MD Karina Melgar Work Phone: [facility] 03-11-2022 18:35-0500 Systolic blood pressure 137 mm[Hg] MD Karina Melgar Work Phone: [facility] 03-11-2022 13:03-0500 Body height 167.64 cm MD Karina Melgar Work Phone: [facility] 03-11-2022 13:03-0500 Body temperature 98.7 [degF] MD Karina Melgar Work Phone: [facility] 03-11-2022 13:03-0500 Body weight 116 kg MD Karina Melgar Work Phone: [facility] 06-14-2021 11:15-0400 Body height 167.64 cm Shahriar Franciscoisle II Other [employer] [facility] [employer] Other 06-14-2021 11:15-0400 Body mass index (BMI) [Ratio] 40.02 kg/m2 Shahriar Calaveras II Other [employer] Other 06-14-2021 11:15-0400 Body weight 112.49 kg Shahriar Alejo II Other [employer] Other 05-24-2021 15:30-0400 Body height 167.64 cm Karina Melgar Other [employer] [facility] [employer] Other 05-24-2021 15:30-0400 Body mass index (BMI) [Ratio] 40.19 kg/m2 Karina Melgar Other [employer] Other 05-24-2021 15:30-0400 Body weight 112.95 kg Karina Melgar Other [employer] Other 05-24-2021 15:30-0400 Diastolic blood pressure 80 mm[Hg] Karina Melgar Other [employer] Other 05-24-2021 15:30-0400 Systolic blood pressure 132 mm[Hg] Karina Melgar Other [employer] Other 03-21-2021 15:00-0500 Body height 167.64 cm Shahriar Cint II Other [employer] Other 03-21-2021 15:00-0500 Body mass index (BMI) [Ratio] 40.51 kg/m2 Shahriar Calaveras II Other [employer] Other 03-21-2021 15:00-0500 Body weight 113.85 kg Shahriar Alejo II Other [employer] Other 02-13-2021 15:45-0500 Body height 167.64 cm Karina Melgar Other [employer] Other 02-13-2021 15:45-0500 Diastolic blood pressure 80 mm[Hg] Karina Melgar Other [employer] Other 02-13-2021 15:45-0500 Systolic blood pressure 144 mm[Hg] Karina Melgar Other [employer] Other 01-29-2021 14:45-0500 Body height 167.64 cm Karina Melgar Other [employer] Other 01-29-2021 14:45-0500 Body mass index (BMI) [Ratio] 40.64 kg/m2 Karina Ramón Other [employer] Other 01-29-2021 14:45-0500 Body weight 114.22 kg Karina Melgar Other [employer] Other 01-29-2021 14:45-0500 Diastolic blood pressure 92 mm[Hg] Karina Melgar Other [employer] Other 01-29-2021 14:45-0500 SaO2% (BldA) [Mass fraction] 98 % Karina Melgar Other [employer] Other 01-29-2021 14:45-0500 Systolic blood pressure 148 mm[Hg] Karina Melgar Other [employer] Other Encounters Encounter Date Encounter Type Care Provider Facility Start: 02-21-2023 Evaluation and management of inpatient [facility]ICE [facility] Facility:[facility] Start: 02-18-2023 Evaluation and management of inpatient UNKNOWN PROVIDER Facility:[facility] Start: 02-18-2023 Patient encounter status Ip 3 [facility] Work Phone: Start: 02-18-2023 ambulatory UNKNOWN PROVIDER Facili ty:[facility] Start: 02-18-2023 End: 02-18-2023 Subsequent hospital visit by physician [employer] Intern 3 [facility] Non Invasive Cardiology Start: 02-17-2023 Evaluation and management of inpatient UNKNOWN PROVIDER Facility:[facility] Start: 02-16-2023 Evaluation and management of inpatient JUSTICE GHOTRAE Facility:[facility] Start: 02-16-2023 Emergency department patient visit UNKNOWN PROVIDER Facility:[facility] Start: 02-15-2023 Emergency department patient visit UNKNOWN PROVIDER Facility:[facility] Start: 02-15-2023 End: 02-15-2023 ambulatory UNKNOWN PROVIDER Facility:[facility] Start: 02-15-2023 End: 02-25-2023 Evaluation and management of inpatient Vivian Espinoza MD Work Phone: [facility] 5 [facility] Start: 02-15-2023 End: 02-25-2023 Patient encounter status Vivian Espinoza MD [facility]: [facility] Work Phone: Start: 02-15-2023 End: 02-16-2023 Emergency department patient visit Justice Pretty Facility:[facility] Start: 02-15-2023 End: 02-15-2023 Emergency department patient visit Justice Pretty [facility] Start: 08-30-2022 Office outpatient vi sit 25 minutes Karina Melgar Work Phone: [facility] 250 DO Work Phone: Start: 08-13-2022 ambulatory Christopher Porter Facilit y: Start: 08-02-2022 ambulatory Christopher Porter Facilit y: Start: 08-02-2022 End: 08-02-2022 ambulatory Christopher Porter Facility:[facility] Start: 07-05-2022 ambulatory Christopher Porter Facilit y: Start: 07-05-2022 Office outpatient vi sit 25 minutes Karina Melgar Work Phone: [facility] 600 DO Work Phone: Start: 06-20-2022 Patient encounter procedure Karina Melgar Work Phone: [facility] 250 DO Work Phone: Start: 06-20-2022 ambulatory Christopher Waden Facilit y: Start: 06-12-2022 Chart Update Karina floyd Work Phone: [facility] 250 DO Work Phone: Start: 06-11-2022 End: 06-11-2022 ambulatory Christopher Porter Facility:[facility] Start: 06-11-[address] Karina Melgar Facility:[id number] Start: 05-28-2022 Patient encounter procedure Karina Melgar Work Phone: [facility] 250 DO Work Phone: Start: 05-10-2022 Patient encounter procedure Karina Melgar Work Phone: [facility] 250[address] [place] Work Phone: Start: 05-10-2022 ambulatory Christopher Sheikh y: Start: 05-03-2022 AUDIT Karina Blackwell everett Work Phone: [facility] 250 DO Work Phone: Start: 05-02-2022 Patient encounter procedure Karina Melgar Work Phone: [facility] 600 DO Work Phone: Start: 05-02-2022 ambulatory Christopher Sheikh y: Start: 04-29-2022 Office outpatient vi sit 25 minutes Karina Melgar Work Phone: [facility] 600 DO Work Phone: Start: 04-29-2022 ambulatory Christopher Sheikh y: Start: 04-18-2022 End: 04-18-2022 ambulatory Karina Melgar Other [facility] [employer] Other Start: 04-18-2022 Office outpatient vi sit 15 minutes Karina Melgar [facility] Start: 03-29-2022 End: 03-04-2023 ambulatory ACNP Mae Rodrigez Facility:[facility] Start: 03-29-2022 End: 03-03-2023 Recurring Mae Rodrigez [facility] Start: 03-27-2022 End: 03-27-2022 ambulatory Karina Melgar Facility:[facility] Start: 03-27-2022 End: 03-27-2022 Patient encounter procedure MD Karina Melgar Work Phone: [facility] Work Phone: Start: 03-27-2022 End: 03-27-2022 ambulatory MD Karina Melgar Work Phone: [facility] Work Phone: Start: 03-27-2022 Telephone encounter Sejalra Delgadoz [facility] Start: 03-25-2022 End: 03-25-2022 ambulatory Sejalra Link Other [employer] Other Start: 03-25-2022 Telephone encounter Sejal Nikolay [facility] Start: 03-21-2022 ambulatory Christopher Sheikh y: Start: 03-14-2022 End: 03-14-2022 ambulatory Sejalra Link Other [employer] Other Start: 03-14-2022 Telephone encounter Sejalra Link [facility] Start: 03-12-2022 End: 03-12-2022 ambulatory Karina Melgar Other [employer] Other Start: 03-12-2022 Telephone encounter Karina cabrera [facility] Start: 03-11-2022 End: 03-11-2022 Emergency department patient visit Yo Blood Facility:[facility] Start: 03-11-2022 End: 03-11-2022 Emergency department patient visit MD Karina Melgar Work Phone: [facility] Work Phone: Start: 09-26-2021 End: 09-26-2021 ambulatory Shahriar Dhillon II Facility:[facility] Start: 08-28-2021 End: 08-28-2021 ambulatory Shahriar Dhillon II Other [employer] Other Start: 08-28-2021 Telephone encounter Shahriar Dhillon II [facility] Start: 08-15-2021 (Post-Op) Post-Op Shahriar Calaveras II [facility] Start: 08-15-2021 End: 08-15-2021 ambulatory Shahriar M Calaveras II [employer] Other Start: 07-18-2021 (Post-Op) Post-Op Shahriar Calaveras II [facility] Start: 07-18-2021 End: 07-18-2021 ambulatory Shahriar Calaveras II Other [employer] Other Start: 07-02-2021 End: 07-03-2021 ambulatory Kate Lilatonier Facility:[facility] Start: 06-28-2021 End: 06-28-2021 ambulatory Shahriar M Alejo II Facility:[facility] Start: 06-22-2021 (Prolonged) Prolonge d Services Shahriar Crumple II [facility] Start: 06-22-2021 End: 06-22-2021 ambulatory Shahriar Calaveras II Other [employer] Other Start: 06-18-2021 End: 06-18-2021 ambulatory Shahriar M Alejo II Facility:[facility] Start: 06-14-2021 End: 06-14-2021 ambulatory Shahriar Calaveras II Other [employer] Other Start: 06-14-2021 Encounter for other preprocedural examination Shahriar Calaveras II [facility] Start: 06-14-2021 Patient encounter procedure Shahriar Calaveras II [facility] Start: 05-24-2021 End: 05-24-2021 ambulatory Karina Melgar Other [employer] Other Start: 05-24-2021 Encounter for other preprocedural examination Karina Melgar [facility] Start: 05-24-2021 Office outpatient vi sit 15 minutes Karina Melgar [facility] Start: 03-22-2021 End: 03-22-2021 ambulatory Lynn Gurrola Other [employer] Other Start: 03-22-2021 Encounter for other preprocedural examination Shahriar Dhillon II [facility] Start: 03-22-2021 Telephone encounter Shahriar Dhillon II [facility] Start: 03-21-2021 End: 03-21-2021 ambulatory Shahriar Dhillon II Other [employer] Other Start: 03-21-2021 Office outpatient ne w 45 minutes Shahriar Dhillon II [facility] Start: 02-13-2021 End: 02-13-2021 ambulatory Karina Melgar Other [employer] Other Start: 02-13-2021 Office outpatient vi sit 15 minutes Karina Melgar [facility] Start: 01-29-2021 End: 01-29-2021 ambulatory Karina Melgar Other [employer] Other Start: 01-29-2021 Office outpatient vi sit 15 minutes Karina Melgar [facility] Start: 04-01-2020 End: 04-01-2020 Orders Only Alina Bradybello Work Phone: [facility] Procedures Date Procedure [...] DO Work Phone: Start: 02-20-2023 COVID/INFLUENZA Kevin Montero alajessie DO Work Phone: Start: 02-20-2023 Assay of [...] R ho(D) and RBC antibody screening Angela Kit Anil Bradshaw MD Work Phone: [...] MD Work Phone: Start: 08-02-2022 Cardioversion Justice rajan Start: 07-25-2022 Transesophageal echocardiography Justice Pretty Start: 03-11-2022 SARS Antigen (LFIA) MD Karina Melgar Work Phone: Start: 03-11-2022 Plain chest X-ray MD Lenka Melgar Work Phone: Start: 06-18-2021 Antibody screen Karina Melgar Comment on above: Order Comment: Date of Surgery: [id number] Result Comment: PERF ORMED BY: [facility] [address] [place] [address] PATHOLOGIST [employer]ER [employer]ISHING LEAD WORKER EYAD HOWARD M.D. Start: 02-25-2016 Total colonoscopy Devon xenia Melgar Work Phone: Arthroplasty of knee Karina Melgar Work Phone: Cardioversion Karina floyd Work Phone: Excision of cyst Karina muir Work Phone: Hernia repair Karina floyd Work Phone: History of hernia repair Catracho Pretty Procedure on prostate Karina Melgar Work Phone: Total replacement of hip Lenkao marvin Melgar Work Phone: Plan of Treatment Date Care Activity Detail Author Start: 03-11-2023 FUV, Provider: Christopher Porter, Status: Pen, Time: 8:40 AM FUV, Provider: Christopher Porter, Status: Pen, Time: 8:40 AM -[facility] 250 DO Work Phone: Start: 10-25-2022 Influenza vaccination [facility] Start: 08-30-2022 FUV, Provider: Christopher Porter, Status: Pen, Time: 8:40 AM FUV, Provider: Christopher Porter, Status: Pen, Time: 8:40 AM [facility] 600 DO Work Phone: Start: 07-18-2022 SURGNONUH, Provider: Christopher Porter, Status: Pen, Time: 10:00 AM SURGNONUH, Provider: Christopher Porter, Status: Pen, Time: 10:00 AM [facility] 600 DO Work Phone: Start: 07-05-2022 FUV, Provider: Christopher Porter, Status: Pen, Time: 8:40 AM FUV, Provider: Christopher Porter, Status: Pen, Time: 8:40 AM -[facility] 250 DO Work Phone: Start: 06-20-2022 EKG, Provider: ESTELA CLARKE X RAY SERVICE TECHNICIAN 1,[id number], Status: Pen, Time: 1:00 PM EKG, Provider: ESTELA CLARKE X RAY SERVICE TECHNICIAN 1,[id number], Status: Pen, Time: 1:00 PM -[facility] 250 DO Work Phone: Start: 06-11-2022 SURGNONUH, Provider: Christopher Porter, Status: Pen, Time: 2:00 PM SURGNONUH, Provider: Christopher Porter, Status: Pen, Time: 2:00 PM -[facility] 250 DO Work Phone: Start: 06-04-2022 FUV, Provider: Christopher Porter, Status: Pen, Time: 8:20 AM FUV, Provider: Christopher Porter, Status: Pen, Time: 8:20 AM [facility] 600 DO Work Phone: Start: 05-10-2022 EKG, Provider: ESTELA CLARKE X RAY SERVICE TECHNICIAN 1,[id number], Status: Pen, Time: 2:00 PM EKG, Provider: ESTELA CLARKE X RAY SERVICE TECHNICIAN 1,[id number], Status: Pen, Time: 2:00 PM [facility] 250 DO Work Phone: Start: 05-02-2022 EKG, Provider: ESTELA HAMPTON X RAY SERVICE TECHNICIAN 1,[id number], Status: Pen, Time: 1:00 PM EKG, Provider: ESTELA HAMPTON X RAY SERVICE TECHNICIAN 1,[id number], Status: Pen, Time: 1:00 PM [employer] 600 DO Work Phone: Start: 10-26-2019 Influenza vaccination given Sequential Influenza Vaccine (#1) [facility] Start: 11-24-2014 [facility] Start: 2013 Pneumococcal vaccination [facility] Start: 2013 [facility] Start: 2008 RSV vaccine (optional 60+ years) RSV vaccine (optional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
[2023-03-07 09:03] LABS: INR 2.87; Prothrombin Time 28.7 sec (9.0-11.6)
== END 2023-03-07 00:56 | disposition home or self-care (01) ==
LOC: LAB 00:55
PROVIDERS: PCP Family Medicine; Visit Provider Family Medicine
DX: I48.91 Unspecified atrial fibrillation (principal)
CPT/HCPCS: 36415; 85610

== ENCOUNTER 2023-03-10 04:43 | Outpatient (REF) | payer MEDICARE, SELFPAY ==
--- OUTSIDE RECORDS SUMMARY | 2023-03-10 04:50 | XMS_ITS | CCD ---
Author Name Unknown Address [address] [place] [address] Organization [facility] Care Team Providers Care Hand Tool Filer Name Role Phone No, Physician Primary Care Provider UnavailShahriar Frederick II Unavailable Shahriar Dhillon II Unavailable Karina Melgar Unavailable Lynn Gurrola Unavailable MD Karina Melgar Primary Care Provider [phone] DO Yo Blood Emergency Provider LISSETH Link Attending Provider [phone] Sejal Link Unavailable Karina Melgar Unavailable [phone] Unavailable Unavailable Unavailable Unavailable Karina Melgar Primary Care Unavailable Sejal Link Attending Unavailable Sejal Link Admitting Unavailable Shahriar Dhillon II Attending UnavailShahriar Frederick II Admitting UnavailKarina Butler Primary Care Unavailable Shahriar Dhillon II Admitting Unavailabl e Shahriar Dhillon II Attending UnavailKarina Butler Primary Care Unavailable Shahriar Dhillon II Admitting UnavailShahriar Frederick II Attending UnavailKarina Butler Primary Care Unavailable Christopher Porter Referring Unavail able Christopher Porter Attending Unavail able Christopher Porter Admitting Unavail able Karina Melgar Primary Care Unavailable Yo Blood Admitting Unavailable Yo Blood Attending Unavailable Karina Melgar Primary Care Unavailable Kate Nielson Unavailable Shahriar Dhillon II Admitting Unavailabl Shahriar Caruso II Attending UnavailKarina Butler Primary Care Unavailable [...] Edmond Consulting Unavailable Marcos Bruno Consulting Unavailable Haylee Diaz Consulting Unavailable Rufina Kayode Consulting Unavailable Angel Senior Consulting Mariella vailable Trisha Keyes Consulting Unavailable Pawan Kaba Consulting Unavailab Kennedy Dhillon Consulting Unavailable Ryan Dolan Consulting Unavailable Obika Fatoumata Consulting Unavailable Adri Mon Consulting Unavailable [...] Dr. Karina Abernathy Primary Care Mariella vailable Ramón, Dr. Karina Abernathy Primary Care Mariella vailable German, Christopher Attending Unavailable Ramón, Dr. Karina Abernathy Primary Care Mariella vailable German, Christopher Attending Unavailable Ramón, Dr. Karina Abernathy Primary Care Mariella vailable German, Christopher Referring Unavailable German, Christopher Attending Unavailable Ramón, Dr. Karina Abernathy Primary Care Mariella vailable KARINA MELGAR Primary Care Physician JUSTICE PRETTY Referring Unavailable RADHA SMALL Attending [...] Admitting Unavailable McGvickien, Christopher P Admitting Unavailable McGvickien, Christopher P Attending Unavailable Staciuinn, Christopher P Referring Unavailable Sukhwinder, Justice Attending Unavailable Allergies Allergy Classification Reported Allergen(s) Allergy Type Date of Onset Reaction(s) Facility (1 source) No Known Medication Allergies; Translations: [No Known Medication Allergies] Propensity to adverse reactions (disorder) [facility] Repository Medications Current Medications Medication Drug Class(es) Dates Sig (Normalized) Sig (Original) acetaminophen 325 mg / HYDROcodone bitartrate 5 mg oral tablet (2 sources) Opioid Agonist Start: 07-28-2020 [place] 325 mg-5 mg oral tablet 1 tab(s), [...] 02-25-2023 docusate sodium 50 mg / sennosides, senior living 8.6 mg oral tablet (3 sources) Start: [...] MG Oral Tablet Take as directed by [facility] coumadin clinic Quantity: 0 Refills: 0 Ordered: [...] with spacer take 2 puff(s) by mo [facility] every four hours as needed ALBUTEROL INHALATION [...] 1 capsule by mouth twice daily Iron [id number]-T-Bhcel Acid (Ferocon) 110-0.5 mg Capsule Discontinued 1 [...] Start: 06-14-2021 take 1 tablet by cuong twice daily Aspirin 81 MG 1 tablet [...] (6 sources) Opioid Agonist Start: 02-17-2023 End: 12-27-2023 take 2 mg intravenously every two hours [...] injection (6 sources) Serotonin-3 Receptor Antagonist Start: 023 take 4 mg intravenously every four hours [...] DOS: 07/02/2021 May, Active polyethylene glycol 3350 01695 mg powder for oral solution (4 sources) [...] Discontinued Start: 07-05-2022 take 1 capsule by [facility] every twelve hours propafenone 425 mg oral [...] Start: 04-29-2022 take 1 capsule by mo [facility] every twelve hours Propafenone HCl ER 225 MG Oral Capsule Extended Release 12 Hour TAKE 1 CAPSULE EVERY 12 HOURS. Quantity: 180 Refills: 0 Ordered: 29-Apr-2022 Christopher Potrer MD Start : 29-Apr-2022 Active new start Prostate Support TABS (10 sources) Prostate Support TABS TAKE 1 TABLET DAILY DIRECTED. Quantity: 0 Refills: 0 Ordered: 21-Mar-2022 DO Active Saw-Vit E-Sod Wqt-Msv-Ftuf-Pyg (Prostate Health) 160-100-100 mg-unit-mcg Tablet (2 sources) Start: End: 3 take 1 capsule by mouth once daily Saw-Vit E-Sod Dbm-Nbx-Znlj-Pyg (Prostate Health) 160-100-100 mg-unit-mcg Tablet Discontinued 1 CAP PO Daily July 27, 2017 11:00pm March 11, 2022 5:18pm sennosides, senior living 8.6 mg oral tablet (1 source) Start: [...] on Fri02/17/23 at 1600, Until Discontinued Vit C-S.Rjnusq-Ztgzbz-Itggq Sd (Tart Bhagat) 82-918-34-75-20 mg Capsule (2 sources) Start: 07-28-2017 End: 08-09-2019 Vit C-S.Zkcinz-Wmbqwq-Hruic Sd (Tart Bhagat) 39-087-65-75-20 mg Capsule Discontinued 1 CAP PO Twice [...] femur, initial encounter for closed fracture] Onset: 12-23-2023 Episodic Osteoarthritis (20 sources) Osteoarthritis of knee; [...] source) Long-term current use of anticoagulant; Translations: [residential (current) use of anticoagulants] Episodic Other connective [...] 02-13-2021 Episodic Other aftercare (2 sources) Other half-way (current) drug therapy Onset: 03-22-2021 Resolved: 06-14-2021 [...] 8 mmol/L Low 10 - 20 Met [facility] Calcium [Mass/Vol] 8.0 mg/dL Low 8.6 - 10. 3 mg/dL [facility] Chloride [Moles/Vol] 102 mmol/L 98 - 107 mmol/L [facility] CO2 [Moles/Vol] 30 mmol/L 21 - 31 mmol/L [facility] Creatinine [Mass/Vol] 0.64 mg/dL Low 0.70 - 1.30 mg/dL [facility] GFR/1.73 sq M.predicted CKD-EPI (S/P/Bld) [Vol rate/Area] 99 - PINF [facility] Glucose [Mass/Vol] 129 mg/dL High 74 - 109 mg/dL [facility] Interpretation and review of laboratory results Abnormal [facility] Potassium [Moles/Vol] 3.8 mmol/L 3.5 - 5.0 mmol/L [facility] Sodium [Moles/Vol] 136 mmol/L 136 - 145 mmol/L [facility] Urea nitrogen [Mass/Vol] 20 mg/dL 7 - 25 mg/dL [facility] CBC panel Auto (Bld)on 02-25 Erythrocyte distribution width (RBC) [Ratio] 16.3 % High 11.5 - 14.5 % [facility] Hematocrit (Bld) [Volume fraction] 27.5 % Low 41.0 - 53.0 % [facility] Hemoglobin (Bld) [Mass/Vol] 8.9 g/dL Low 13.9 - 16.3 g/dL [facility] Interpretation and review of laboratory results Abnormal [facility] MCH (RBC) [Entitic mass] 30.8 pg 26.0 - 34.0 pg [facility] MCHC (RBC) [Mass/Vol] 32.5 g/dL 32.0 - 35.9 g/dL [facility] MCV (RBC) [Entitic vol] 95 fL 80 - 100 fL [facility] Platelet mean volume (Bld) [Entitic vol] 8.0 fL 7.5 - 11.2 fL [facility] Platelets (Bld) [#/Vol] 376 10*3/uL 150 - 400 K/uL [facility] RBC (Bld) [#/Vol] 2.90 10*6/uL Low [facility] WBC (Bld) [#/Vol] 8.5 10*3/uL 4.5 - 11.5 K/uL [facility] MAGNESIUMon 02-25-2023 Magnesium [Mass/Vol] 1.9 mg/dL 1.6 - 2.8 mg/dL [facility] No Panel Informationon 02-25 Interpretation and review of laboratory results [facility] PHOSPHORUS[facility] 02-25-2023 Phosphate [Mass/Vol] 2.9 mg/dL 2.3 - 4.2 mg/dL [facility] PROTHROMBIN TIME AND INRon 0 02-25-2023 INR Coag (PPP) [Relative time] 1.13 {INR} High 0.90 - 1.10 [facility] Interpretation and review of laboratory results Abnormal [facility] PT Coag (PPP) [Time] 12.6 s [facility] ANTI FXA-LMW HEPARINon 02-24 LMW Heparin Chromogenic method Qn (PPP) 0.32 IU/mL [facility] Basic metabolic 2000 panelon 02-24-2023 Anion gap [Moles/Vol] 9 mmol/L Low 10 - 20 Met [facility] Calcium [Mass/Vol] 7.7 mg/dL Low 8.6 - 10. 3 mg/dL [facility] Chloride [Moles/Vol] 101 mmol/L 98 - 107 mmol/L [facility] CO2 [Moles/Vol] 30 mmol/L 21 - 31 mmol/L [facility] Creatinine [Mass/Vol] 0.60 mg/dL Low 0.70 - 1.30 mg/dL [facility] GFR/1.73 sq M.predicted CKD-EPI (S/P/Bld) [Vol rate/Area] 101 - PINF [facility] Glucose [Mass/Vol] 98 mg/dL 74 - 109 mg/dL [facility] Interpretation and review of laboratory results Abnormal [facility] Potassium [Moles/Vol] 4.0 mmol/L 3.5 - 5.0 mmol/L [facility] Sodium [Moles/Vol] 136 mmol/L 136 - 145 mmol/L [facility] Urea nitrogen [Mass/Vol] 19 mg/dL 7 - 25 mg/dL [facility] CBC panel Auto (Bld)on 02-24 Erythrocyte distribution width (RBC) [Ratio] 15.4 % High 11.5 - 14.5 % [facility] Hematocrit (Bld) [Volume fraction] 25.2 % Low 41.0 - 53.0 % [facility] Hemoglobin (Bld) [Mass/Vol] 8.3 g/dL Low 13.9 - 16.3 g/dL [facility] Interpretation and review of laboratory results Abnormal [facility] MCH (RBC) [Entitic mass] 30.7 pg 26.0 - 34.0 pg [facility] MCHC (RBC) [Mass/Vol] 33.1 g/dL 32.0 - 35.9 g/dL [facility] MCV (RBC) [Entitic vol] 93 fL 80 - 100 fL [facility] Platelet mean volume (Bld) [Entitic vol] 7.6 fL 7.5 - 11.2 fL [facility] Platelets (Bld) [#/Vol] 320 10*3/uL 150 - 400 K/uL [facility] RBC (Bld) [#/Vol] 2.72 10*6/uL Low [facility] WBC (Bld) [#/Vol] 7.6 10*3/uL 4.5 - 11.5 K/uL [facility] MAGNESIUMon 02-24-2023 Magnesium [Mass/Vol] 1.9 mg/dL 1.6 - 2.8 mg/dL [facility] No Panel Informationon 02-24 Interpretation and review of laboratory results Normal [facility] PHOSPHORUSon 02-24-2023 Phosphate [Mass/Vol] 2.7 mg/dL 2.3 - 4.2 mg/dL [facility] Basic metabolic 2000 panelon 02-23-2023 Anion gap [Moles/Vol] 9 mmol/L Low 10 - 20 Met [facility] Calcium [Mass/Vol] 7.8 mg/dL Low 8.6 - 10. 3 mg/dL [facility] Chloride [Moles/Vol] 99 mmol/L 98 - 107 mmol/L [facility] CO2 [Moles/Vol] 32 mmol/L High 21 - 31 mmol/L [facility] Creatinine [Mass/Vol] 0.59 mg/dL Low 0.70 - 1.30 mg/dL [facility] GFR/1.73 sq M.predicted CKD-EPI (S/P/Bld) [Vol rate/Area] 102 - PINF [facility] Glucose [Mass/Vol] 88 mg/dL 74 - 109 mg/dL [facility] Interpretation and review of laboratory results Abnormal [facility] Potassium [Moles/Vol] 4.0 mmol/L 3.5 - 5.0 mmol/L [facility] Sodium [Moles/Vol] 136 mmol/L 136 - 145 mmol/L [facility] Urea nitrogen [Mass/Vol] 22 mg/dL 7 - 25 mg/dL [facility] CBC panel Auto (Bld)on 02-23 Erythrocyte distribution width (RBC) [Ratio] 15.3 % High 11.5 - 14.5 % [facility] Hematocrit (Bld) [Volume fraction] 26.6 % Low 41.0 - 53.0 % [facility] Hemoglobin (Bld) [Mass/Vol] 8.7 g/dL Low 13.9 - 16.3 g/dL [facility] Interpretation and review of laboratory results Abnormal [facility] MCH (RBC) [Entitic mass] 30.4 pg 26.0 - 34.0 pg [facility] MCHC (RBC) [Mass/Vol] 32.7 g/dL 32.0 - 35.9 g/dL [facility] MCV (RBC) [Entitic vol] 93 fL 80 - 100 fL [facility] Platelet mean volume (Bld) [Entitic vol] 8.7 fL 7.5 - 11.2 fL [facility] Platelets (Bld) [#/Vol] 285 10*3/uL 150 - 400 K/uL [facility] RBC (Bld) [#/Vol] 2.86 10*6/uL Low [facility] WBC (Bld) [#/Vol] 8.2 10*3/uL 4.5 - 11.5 K/uL [facility] 02-23-2023 Magnesium [Mass/Vol] 2.0 mg/dL 1.6 - 2.8 mg/dL [facility] No Panel Informationon 02-23 Interpretation and review of laboratory results Normal [facility] PHOSPHORUSon 02-23-2023 Phosphate [Mass/Vol] 2.6 mg/dL 2.3 - 4.2 mg/dL [facility] ANTI FXA-LMW HEPARINon 02-22 ANTI FXA-LMW HEPARIN ASSAY 0.48 IU/mL Normal The [facility] Comment on above: Order Comment: The r ecommended therapeutic range for treatment of thrombosis with Low Molecular Weight Heparin is 0.5 - 1.0 IU/mLThe recommended range for VTE prophylaxis with Low Molecular Weight Heparin is 0.2 - 0.4 IU/mL. Performed By: #### T S #### [facility] [address] [place] [address], [id number] LMW Heparin Chromogenic method Qn (PPP) 0.48 IU/mL [facility] BASIC METABOLIC PANELon 01-26 Anion gap [Moles/Vol] 7 mmol/L Low 10-20 [facility] Comment on above: Performed By: #### 8 [id number] #### [facility] [address] [place], [address] Calcium [Mass/Vol] 7.7 mg/dL Low 8.6-10.3 [facility] Comment on above: Result Comment: Note updated reference ranges. Performed By: #### 8 [id number] #### NURSING GLUCOSE [facility] [address] [place], [address] Chloride [Moles/Vol] 101 mmol/L Normal 98-107 [facility] Comment on above: Result Comment: Note updated reference ranges. Performed By: #### 8 [id number] #### NURSING GLUCOSE PROGRAM [address] [place], [address] CO2 [Moles/Vol] 33 mmol/L High 21-31 [facility] Comment on above: Result Comment: Note updated reference ranges. Performed By: #### 8 [id number] #### NURSING GLUCOSE PROGRAM [address] [place], [address] Creatinine [Mass/Vol] 0.60 mg/dL Low 0.70-1.30 [facility] Comment on above: Result Comment: Note updated reference ranges. Performed By: #### 8 [id number] #### NURSING GLUCOSE PROGRAM [address] [place], [address] ESTIMATED GFR (CKD-EPI) 101 mL/min/1.73sqm Normal >=60 [...] Inclusion of Race in Diagnosing Kidney Disease. [place] Journal of Kidney Diseases 2021;79(2):268-88.e1. 2. N Engl J Med 1 Vol. 385 Issue 19 Pages 5678-8294 Performed By: #### 8 2948 #### NURSING GLUCOSE PROGRAM [address] [place], [address] Glucose [Mass/Vol] 105 mg/dL Normal 74-109 The [facility] Comment on above: Performed By: #### 8 [id number] #### NURSING GLUCOSE PROGRAM [address] [place], [address] Potassium [Moles/Vol] 3.6 mmol/L Normal 3.5-5.0 The [facility] Comment on above: Result Comment: Note updated reference ranges. Note updated reference ranges. Performed By: #### 8 [id number] #### NURSING GLUCOSE PROGRAM [address] [place], [address] Sodium [Moles/Vol] 137 mmol/L Normal 136-145 The [facility] Comment on above: Result Comment: Note updated reference ranges. Performed By: #### 8 [id number] #### NURSING GLUCOSE PROGRAM [address] [place], [address] Urea nitrogen [Mass/Vol] 23 mg/dL Normal 7-25 The [facility] Comment on above: Result Comment: Note updated reference ranges. Performed By: #### 8 [id number] #### NURSING GLUCOSE PROGRAM [address] [place], [address] Basic metabolic 2000 panelon 02-22-2023 Anion gap [Moles/Vol] 7 mmol/L Low 10 - 20 Met [facility] Calcium [Mass/Vol] 7.7 mg/dL Low 8.6 - 10. 3 mg/dL [facility] Chloride [Moles/Vol] 101 mmol/L 98 - 107 mmol/L [facility] CO2 [Moles/Vol] 33 mmol/L High 21 - 31 mmol/L [facility] Creatinine [Mass/Vol] 0.60 mg/dL Low 0.70 - 1.30 mg/dL [facility] GFR/1.73 sq M.predicted CKD-EPI (S/P/Bld) [Vol rate/Area] 101 - PINF [facility] Glucose [Mass/Vol] 105 mg/dL 74 - 109 mg/dL [facility] Interpretation and review of laboratory results Abnormal [facility] Potassium [Moles/Vol] 3.6 mmol/L 3.5 - 5.0 mmol/L [facility] Sodium [Moles/Vol] 137 mmol/L 136 - 145 mmol/L [facility] Urea nitrogen [Mass/Vol] 23 mg/dL 7 - 25 mg/dL [facility] CBC panel Auto (Bld)on 02-22 Erythrocyte distribution width (RBC) [Ratio] 15.4 % High 11.5 - 14.5 % [facility] Hematocrit (Bld) [Volume fraction] 23.9 % Low 41.0 - 53.0 % [facility] Hemoglobin (Bld) [Mass/Vol] 8.0 g/dL Low 13.9 - 16.3 g/dL [facility] Interpretation and review of laboratory results Abnormal [facility] MCH (RBC) [Entitic mass] 30.7 pg 26.0 - 34.0 pg [facility] MCHC (RBC) [Mass/Vol] 33.3 g/dL 32.0 - 35.9 g/dL [facility] MCV (RBC) [Entitic vol] 92 fL 80 - 100 fL [facility] Platelet mean volume (Bld) [Entitic vol] 8.7 fL 7.5 - 11.2 fL [facility] Platelets (Bld) [#/Vol] 227 10*3/uL 150 - 400 K/uL [facility] RBC (Bld) [#/Vol] 2.60 10*6/uL Low [facility] WBC (Bld) [#/Vol] 7.6 10*3/uL 4.5 - 11.5 K/uL [facility] COMPLETE BLOOD COUNTon 02-22 Erythrocyte distribution width (RBC) [Ratio] 15.4 % High 11.5-14.5 The [facility] Comment on above: Performed By: #### T S #### S [facility] [address] [place] [address], Hematocrit (Bld) [Volume fraction] 23.9 % Low 41.0-53.0 The [facility] Comment on above: Performed By: #### T S #### S [facility] [address] [place] [address], Hemoglobin (Bld) [Mass/Vol] 8.0 g/dL Low 13.9-16.3 The [facility] Comment on above: Performed By: #### T S #### [facility] [address] [place] [address], MCH (RBC) [Entitic mass] 30.7 pg Normal 26.0-34.[address] [facility] Comment on above: Performed By: #### T S #### S [facility] [address], [place], MCHC (RBC) [Mass/Vol] 33.3 g/dL Normal 32.0-35.[address] [facility] [facility] Comment on above: Performed By: #### T S #### [facility] [address], [place], MCV (RBC) [Entitic vol] 92 fL Normal 80-[address] [facility] Comment on above: Performed By: #### T S #### [facility] [address], [place], Platelet mean volume (Bld) [Entitic vol] 8.7 fL Normal 7.5-11.[address] [facility] [facility] Comment on above: Performed By: #### T S #### [facility] [address], [place], Platelets (Bld) [#/Vol] 227 10*3/uL Normal 150-[address] [facility] [facility] Comment on above: Performed By: #### T S #### [facility] [address], [place], RBC (Bld) [#/Vol] 2.60 10*6/uL Low 4.50-5.[address] [facility] Comment on above: Performed By: #### T S #### S [facility] [address], [place], WBC (Bld) [#/Vol] 7.6 10*3/uL Normal 4.5-11.[address] [facility] Comment on above: Performed By: #### T S #### S [facility] [address], [place], Care Plan Noteon 02-22-2023 Forecast Analyst Authentication Interface Message Text Problem: Routine Care: [...] and once discontinued Outcome: Progressing Normal [facility] MAGNESIUMon 02-22-2023 Magnesium [Mass/Vol] 2.0 mg/dL Normal 1.6-2.[address] [facility] Comment on above: Performed By: #### 8 [id number] #### NURSING GLUCOSE PROGRAM [address] [place] [address], [address] Magnesium [Mass/Vol] 2.0 mg/dL 1.6 - 2.8 mg/dL [facility] No Panel Informationon 02-22 Interpretation and review of laboratory results Normal [facility] PHOSPHORUSon 02-22-2023 Phosphate [Mass/Vol] 2.8 mg/dL Normal 2.3-4.[address] [facility] Comment on above: Performed By: #### 8 2948 #### NURSING GLUCOSE PROGRAM [address] [place] [address], [address] Phosphate [Mass/Vol] 2.8 mg/dL 2.3 - 4.2 mg/dL [facility] BASIC METABOLIC PANELon 12-2 Anion gap [Moles/Vol] 9 mmol/L Low 10-20 [facility] Comment on above: Performed By: #### 8 [id number] #### NURSING GLUCOSE PROGRAM [address] [place], [address] Calcium [Mass/Vol] 7.5 mg/dL Low 8.6-10.3 [facility] Comment on above: Result Comment: Note updated reference ranges. Performed By: #### 8 2948 #### NURSING GLUCOSE PROGRAM [address] [place], [address] Chloride [Moles/Vol] 100 mmol/L Normal 98-107 [facility] Comment on above: Result Comment: Note updated reference ranges. Performed By: #### 8 2948 #### NURSING GLUCOSE PROGRAM [address] [place], [address] CO2 [Moles/Vol] 33 mmol/L High 21-31 [facility] Comment on above: Result Comment: Note updated reference ranges. Performed By: #### 8 2948 #### NURSING GLUCOSE PROGRAM [address] [place], [address] Creatinine [Mass/Vol] 0.65 mg/dL Low 0.70-1.30 [facility] Comment on above: Result Comment: Note updated reference ranges. Performed By: #### 8 2948 #### NURSING GLUCOSE PROGRAM [address] [place], [address] ESTIMATED GFR (CKD-EPI) 99 mL/min/1.73sqm Normal >=60 [facility] Comment on above: Result Comment: 2020 [...] Inclusion of Race in Diagnosing Kidney Disease. [place] Journal of Kidney Diseases 2021;79(2):268-88.e1. 2. N Engl J Med 2021 Vol. 385 Issue 19 Pages 1675-2129 Performed By: #### 8 2948 #### NURSING GLUCOSE PROGRAM [address] [place], [address] Glucose [Mass/Vol] 104 mg/dL Normal 74-109 The [facility] Comment on above: Performed By: #### 8 2948 #### NURSING GLUCOSE PROGRAM [address] [place], [address] Potassium [Moles/Vol] 3.5 mmol/L Normal 3.5-5.0 The [facility] Comment on above: Result Comment: Note updated reference ranges. Note updated reference ranges. Performed By: #### 8 2948 #### NURSING GLUCOSE PROGRAM [address] [place], [address] Sodium [Moles/Vol] 138 mmol/L Normal 136-145 The [facility] Comment on above: Result Comment: Note updated reference ranges. Performed By: #### 8 2948 #### NURSING GLUCOSE PROGRAM [address] [place], [address] Urea nitrogen [Mass/Vol] 24 mg/dL Normal 7-25 The [facility] Comment on above: Result Comment: Note updated reference ranges. Performed By: #### 8 [id number] #### NURSING GLUCOSE PROGRAM [address] [place], [address] BLOOD CULTUREon 02-21-2023 Bacteria identified Cx Nom (Bld) No Growth [facility] Interpretation and review of laboratory results Normal [facility] Basic metabolic 2000 panelon 02-21-2023 Anion gap [Moles/Vol] 9 mmol/L Low 10 - 20 Met [facility] Calcium [Mass/Vol] 7.5 mg/dL Low 8.6 - 10. 3 mg/dL [facility] Chloride [Moles/Vol] 100 mmol/L 98 - 107 mmol/L [facility] CO2 [Moles/Vol] 33 mmol/L High 21 - 31 mmol/L [facility] Creatinine [Mass/Vol] 0.65 mg/dL Low 0.70 - 1.30 mg/dL [facility] GFR/1.73 sq M.predicted CKD-EPI (S/P/Bld) [Vol rate/Area] 99 - PINF [facility] Glucose [Mass/Vol] 104 mg/dL 74 - 109 mg/dL [facility] Interpretation and review of laboratory results Abnormal [facility] Potassium [Moles/Vol] 3.5 mmol/L 3.5 - 5.0 mmol/L [facility] Sodium [Moles/Vol] 138 mmol/L 136 - 145 mmol/L [facility] Urea nitrogen [Mass/Vol] 24 mg/dL 7 - 25 mg/[facility] CBC panel Auto (Bld)on 02-21 Erythrocyte distribution width (RBC) [Ratio] 14.5 % 11.5 - 14.5 % [facility] Hematocrit (Bld) [Volume fraction] 21.8 % Low 41.0 - 53.0 % [facility] Hemoglobin (Bld) [Mass/Vol] 7.6 g/dL Low 13.9 - 16.3 g/dL [facility] Interpretation and review of laboratory results Abnormal [facility] MCH (RBC) [Entitic mass] 31.5 pg 26.0 - 34.0 pg [facility] MCHC (RBC) [Mass/Vol] 34.6 g/dL 32.0 - 35.9 g/dL [facility] MCV (RBC) [Entitic vol] 91 fL 80 - 100 fL [facility] Platelet mean volume (Bld) [Entitic vol] 8.3 fL 7.5 - 11.2 fL [facility] Platelets (Bld) [#/Vol] 199 10*3/uL 150 - 400 K/uL [facility] RBC (Bld) [#/Vol] 2.40 10*6/uL [facility] WBC (Bld[facility] [#/Vol] 9.6 10*3/uL 4.5 - 11.5 K/uL [facility] COMPLETE BLOOD COUNTon 02-21 Erythrocyte distribution width (RBC) [Ratio] 14.5 % Normal 11.5-14.5 The [facility] Comment on above: Performed By: #### T S #### [facility] [address] [place] [address], Hematocrit (Bld) [Volume fraction] 21.8 % Low 41.0-53.0 The [facility] Comment on above: Performed By: #### T S #### [facility] [address], [place], Hemoglobin (Bld) [Mass/Vol] 7.6 g/dL Low 13.9-16.[address] [facility] Comment on above: Performed By: #### T S #### [facility] [address], [place], MCH (RBC) [Entitic mass] 31.5 pg Normal 26.0-34.[address] [facility] Comment on above: Performed By: #### T S #### [facility] [address], [place], MCHC (RBC) [Mass/Vol] 34.6 g/dL Normal 32.0-35.9 [facility] Comment on above: Performed By: #### T S #### S PATHOLOGY LABORATORY [address], [place], MCV (RBC) [Entitic vol] 91 fL Normal 80-100 [facility] Comment on above: Performed By: #### T S #### S [facility]OLOGY LABORATORY [address], [place], Platelet mean volume (Bld) [Entitic vol] 8.3 fL Normal 7.5-11.2 [facility] Comment on above: Performed By: #### T S #### S [facility]OLOGY LABORATORY [address], [place], Platelets (Bld) [#/Vol] 199 10*3/uL Normal 150-400 [facility] Comment on above: Performed By: #### T S #### S PATHOLOGY LABORATORY [address], [place], RBC (Bld) [#/Vol] 2.40 10*6/uL Low 4.50-5.90 [facility] Comment on above: Performed By: #### T S #### S PATHOLOGY LABORATORY [address], [place], WBC (Bld) [#/Vol] 9.6 10*3/uL Normal 4.5-11.5 [facility] Comment on above: Performed By: #### T S #### [facility] [address], [place], Care Plan Noteon 02-21-2023 Forecast Analyst Authentication Interface Message Text Problem: Routine Care: [...] and once discontinued Outcome: Progressing Normal [facility] GLUCOSE, FINGERSTICK-IN OFFI CEon 02-21-2023 Glucose [Mass/Vol] 144 mg/dL High 80-116 [facility] Comment on above: Performed By: #### [id number] #### NURSING GLUCOSE PROGRAM [address] [place] [address], [id number] Glucose [Mass/Vol] 144 mg/dL High 80 - 116 mg/dL [facility] Interpretation and review of laboratory results Abnormal [facility] MAGNESIUMon 02-21-2023 Magnesium [Mass/Vol] 1.9 mg/dL Normal 1.6-2.[address] [facility] Comment on above: Performed By: #### T S #### [facility] [address], [place], Magnesium [Mass/Vol] 1.9 mg/dL 1.6 - 2.8 mg/dL [facility] No Panel Informationon 02-21 Interpretation and review of laboratory results Normal [facility] PHOSPHORUSon 02-21-2023 Phosphate [Mass/Vol] 2.3 mg/dL Normal 2.3-4.[address] [facility] Comment on above: Performed By: #### T S #### [facility] [address], [place], Phosphate [Mass/Vol] 2.3 mg/dL 2.3 - 4.2 mg/dL [facility] Procedureson 02-21-2023 Forecast Analyst Authentication Interface Message Text Upper Extremities Venous Duplex [address], [place] [address] Status:Open Demographics Patient name: JUAN Leung Gender: Male Date of : 1950 Age: 72 year(s) Procedure Information Procedure date: 02/21/2023 2:15 PM Procedure type: Vascular Proc. sub type: Veins, Upper Extremities Veins, LIMITED DUPLEX VEIN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 Performed By: #### Coby CORREA ####[facility] [id number] [place], [place], BLOOD PRODUCT STATUS Returned to Bld Bnk Normal The [facility] Comment on above: Performed By: #### P T #### [facility] [address] [place] [address], Performed By: #### ASIA Freitas PHOS #### [facility] [address] [place] [address], Performed By: #### Coby CORREA ####[facility] [id number] [place], BLOOD PRODUCT UNIT INFO [id number] Normal [facility] Comment on above: Performed By: #### P T #### [facility] [address], BLOOD PRODUCT UNIT INFO [id number] Normal [facility] Comment on above: Performed By: #### ASIA Freitas PHOS #### [facility] [address] [place] [address], BLOOD PRODUCT UNIT INFO [id number] Normal [facility] Comment on above: Performed By: #### Coby CORREA ####[facility] [id number] [place], BLOOD PRODUCT UNIT INFO [id number] Normal [facility] Comment on above: Performed By: ###Maxwell CORREA ####[facility] [id number] [place], BLOOD PRODUCT UNIT TYPE [address] Comment on above: Result Comment: O Po s Performed By: #### P Kimberly #### [facility] [address] [place] [address], Performed By: #### ASIA Freitas PHOS #### [facility] [address] [place] [address], Performed By: #### Coby CORREA ####[facility] [id number] [place], [place], CROSSMATCH INTERPRETATION Compatible (E) Normal [facility] Comment on above: Performed By: #### Rolf T #### [facility] [address] [place] [address], Performed By: #### ASIA Freitas PHOS #### [facility] [address] [place] [address], Performed By: #### Coby CORREA ####[facility] [id number] [place], [place], Transfer Documentson 023 Transfer Documents [id number]# 1.00TIFF Normal [facility] VANCOMYCIN RANDOMon 02-19-20 23 VANC R 8.2 ug/mL Normal 5.0-40.0 [facility] Comment on above: Performed By: #### P T #### [facility] [address] [place] [address], Vancomycin [Mass/Vol] 8.2 ug/mL 5.0 - 40.0 ug/mL [facility] BASIC METABOLIC PANELon 01-25 Anion gap [Moles/Vol] 11 mmol/L Normal 10-20 The [facility] Comment on above: Performed By: #### ASIA Freitas, PHOS #### [facility] [address] [place] [address], Calcium [Mass/Vol] 8.3 mg/dL Low 8.6-10.3 The [facility] Comment on above: Result Comment: Note updated reference ranges. Performed By: #### ASIA Freitas, PHOS #### [facility] [address], [place], Chloride [Moles/Vol] 105 mmol/L Normal 98-107 The [facility] Comment on above: Result Comment: Note updated reference ranges. Performed By: #### ASIA Freitas, PHOS #### [facility] [address] [place] [address], CO2 [Moles/Vol] 24 mmol/L Normal 21-31 The [facility] Comment on above: Result Comment: Note updated reference ranges. Performed By: #### ASIA Freitas, PHOS #### [facility] [address], [place], Creatinine [Mass/Vol] 1.00 mg/dL Normal 0.70-1.[address] [facility] Comment on above: Result Comment: Note updated reference ranges. Performed By: #### ASIA Freitas, PHOS #### [facility] [address], [place], ESTIMATED GFR (CKD-EPI) 79 mL/min/1.73sqm Normal >=60 [facility] Comment on above: Result Comment: 2020 [...] Inclusion of Race in Diagnosing Kidney Disease. [place] Journal of Kidney Diseases 2021;79(2):268-88.e1. 2. N Engl J Med 2020 Vol. 385 Issue 19 Pages 3735-9818 Performed By: #### ASIA Freitas PHOS #### [facility] [address], [place], Glucose [Mass/Vol] 189 mg/dL High 74-109 [facility] Comment on above: Performed By: #### ASIA Freitas PHOS #### [facility] [address], [place], Potassium [Moles/Vol] 4.0 mmol/L Normal 3.5-5.0 The [facility] Comment on above: Result Comment: Note updated reference ranges. Note updated reference ranges. Performed By: #### ASIA Freitas PHOS #### [facility] [address], Sodium [Moles/Vol] 136 mmol/L Normal 136-145 The [facility] Comment on above: Result Comment: Note updated reference ranges. Performed By: #### ASIA Freitas PHOS #### [facility] [address], [place], Urea nitrogen [Mass/Vol] 36 mg/dL High 7-25 The [facility] Comment on above: Result Comment: Note updated reference ranges. Performed By: #### ASIA Freitas PHOS #### [facility] [address], [place], BLOOD GAS, ARTERIALon 2022 CR GEOVANNI -1.0 mmol/L Normal -2.0-3.0 The [facility] Comment on above: Performed By: #### C BC #### S PATHOLOGY LABORATORY [address] [place] [address], CR PCO2 38.6 mm Hg Normal 35.0-45.0 The [facility] Comment on above: Performed By: #### C BC #### S PATHOLOGY LABORATORY [address] [place] [address], CR PHA 7.395 Normal 7.350-7.450 The [facility] Comment on above: Performed By: #### C BC #### S PATHOLOGY LABORATORY [address] [place] [address], CR PO2 81 mm Hg Normal 80-[address] [facility] Comment on above: Performed By: #### C BC #### S PATHOLOGY LABORATORY [address] [place] [address], FIO2 (CATEGORY) 2 LPM Normal The [facility] Comment on above: Performed By: #### C BC #### [facility] PATH[facility]ORY [address] [place] [address], HCO3 (Bld) [Moles/Vol] 23 mmol/L Normal 21-[address] [facility] Comment on above: Performed By: #### C BC #### [facility] PATHOLOGY LABORATORY [address] [place] [address], MODE Nasal Canula Normal The [facility] Comment on above: Performed By: #### C BC #### S PATHOLOGY LABORATORY [address] [place] [address], Oxygen saturation in Blood 96.1 % Normal 95.0-99.[address] [facility] Comment on above: Performed By: #### C BC #### S PATHOLOGY LABORATORY [address] [place] [address], BLOOD GAS, VENOUSon 12-25-20 23 CR ABEV -0.3 mmol/L Normal -2.0-3.[address] [facility] Comment on above: Performed By: #### C BC #### [facility] [address] [place] [address], CR HCO3V 25 mmol/L Normal 21-[address] [facility] Comment on above: Performed By: #### C BC #### [facility] [address], [place], CR PHV 7.367 Normal 7.320-7.[address] [facility] Comment on above: Performed By: #### C BC #### S PATHOLOGY LABORATORY [address], [place], CR PVCO2 43.8 mm Hg Normal 41.0-51.0 The [facility] Comment on above: Performed By: #### C BC #### S PATHOLOGY LABORATORY [address], [place], CR PVO2 36 mm Hg Low 38-44 The [facility] Comment on above: Performed By: #### C BC #### S PATHOLOGY LABORATORY [address], [place], Oxygen saturation in Blood 67.1 % Low 70.0-80.[address] [facility] Comment on above: Performed By: #### C BC #### [facility] PATHOLOG[facility] LABORATORY [address], [place], Basic metabolic 2000 panelon 02-17-2023 Anion gap [Moles/Vol] 11 mmol/L 10 - 20 Met [facility] Calcium [Mass/Vol] 8.3 mg/dL Low 8.6 - 10. 3 mg/dL [facility] Chloride [Moles/Vol] 105 mmol/L 98 - 107 mmol/L [facility] CO2 [Moles/Vol] 24 mmol/L 21 - 31 mmol/L [facility] Creatinine [Mass/Vol] 1.00 mg/dL 0.70 - 1.30 mg/dL [facility] GFR/1.73 sq M.predicted CKD-EPI (S/P/Bld) [Vol rate/Area] 79 - PINF [facility] Glucose [Mass/Vol] 189 mg/dL High 74 - 109 mg/dL [facility] Interpretation and review of laboratory results Abnormal [facility] Potassium [Moles/Vol] 4.0 mmol/L 3.5 - 5.0 mmol/L [facility] Sodium [Moles/Vol] 136 mmol/L 136 - 145 mmol/L [facility] Urea nitrogen [Mass/Vol] 36 mg/dL High 7 - 25 mg/dL [facility] CBC panel Auto (Bld)on 02-17 Erythrocyte distribution width (RBC) [Ratio] 14.9 % High 11.5 - 14.5 % [facility] Hematocrit (Bld) [Volume fraction] 29.5 % Low 41.0 - 53.0 % [facility] Hemoglobin (Bld) [Mass/Vol] 10.1 g/dL Low 13.9 - 16.3 g/dL [facility] Interpretation and review of laboratory results Abnormal [facility] MCH (RBC) [Entitic mass] 30.3 pg 26.0 - 34.0 pg [facility] MCHC (RBC) [Mass/Vol] 34.2 g/dL 32.0 - 35.9 g/dL [facility] MCV (RBC) [Entitic vol] 89 fL 80 - 100 fL [facility] Platelet mean volume (Bld) [Entitic vol] 8.6 fL 7.5 - 11.2 fL [facility] Platelets (Bld) [#/Vol] 145 10*3/uL Low 150 - 400 K/uL [facility] RBC (Bld) [#/Vol] 3.33 10*6/uL Low [facility] WBC (Bld) [#/Vol] 9.9 10*3/uL 4.5 - 11.5 K/uL [facility] COMPLETE BLOOD COUNTon 02-17 Erythrocyte distribution width (RBC) [Ratio] 14.9 % High 11.5-14.[address] [facility] Comment on above: Performed By: #### C BC ####S PATHOLOGY [id number] [place], Hematocrit (Bld) [Volume fraction] 29.5 % Low 41.0-53.0 The [facility] Comment on above: Performed By: #### C BC ####S PATHOLOGY [id number] [place], Hemoglobin (Bld) [Mass/Vol] 10.1 g/dL Low 13.9-16.3 The [facility] Comment on above: Performed By: #### C BC ####S PATHOLOGY [id number] [place], MCH (RBC) [Entitic mass] 30.3 pg Normal 26.0-34.0 The [facility] Comment on above: Performed By: #### C BC ####[facility] [id number] [place], MCHC (RBC) [Mass/Vol] 34.2 g/dL Normal 32.0-35.[address] [facility] Comment on above: Performed By: #### C BC ####[facility] [id number] [place], MCV (RBC) [Entitic vol] 89 fL Normal 80-[address] [facility] Comment on above: Performed By: #### C BC ####[facility] [id number] [place], Platelet mean volume (Bld) [Entitic vol] 8.6 fL Normal 7.5-11.[address] [facility] Comment on above: Performed By: #### C BC ####S PATHOLOGY [id number] [place], Platelets (Bld) [#/Vol] 145 10*3/uL Low 150-[address] [facility] Comment on above: Performed By: #### C BC ####[facility] [id number] [place], RBC (Bld) [#/Vol] 3.33 10*6/uL Low 4.50-5.[address] [facility] Comment on above: Performed By: #### C BC ####S PATHOLOGY [id number] [place], WBC (Bld) [#/Vol] 9.9 10*3/uL Normal 4.5-11.[address] [facility] Comment on above: Performed By: #### C BC ####S PATHOLOGY [id number] [place], [place], Care Plan Noteon 02-17-2023 Forecast Analyst Authentication Interface Message Text Problem: Routine Care: [...] will be met Outcome: Progressing Normal [facility] [employer] Consultson 02-17-2023 Forecast Analyst Authentication Interface Message Text PHYSICAL/OCCUPATIONAL THERAPY Attempted to see patient for PT/OT evals this date. Patient scheduled for OR this date for fixation of left femur fracture. Will follow up post-operative as able and medically appropriate. Sylvia Alcantara PT Normal [facility] [employer] [facility] GLUCOSE, FINGERSTICK-IN OFFI CEon 02-17-2023 Glucose [Mass/Vol] 140 mg/dL High 80-[address] [facility] Comment on above: Performed By: #### 8 [id number] #### NURSING GLUCOSE PROGRAM [address] [place], [address] Glucose [Mass/Vol] 140 mg/dL High 80 - 116 mg/dL [facility] Interpretation and review of laboratory results Abnormal [facility] MAGNESIUMon 02-17-2023 Magnesium [Mass/Vol] 1.7 mg/dL Normal 1.6-2.[address] Comment on above: Performed By: #### C BC #### [facility] [address] [place], [address] Magnesium [Mass/Vol] 1.7 mg/dL 1.6 - 2.8 mg/dL [facility] MRSA SCREENOrdered By: Shari Ceja on 02-17-2023 Interpretation and review of laboratory results Normal [facility] MRSA isol Org specific cx Ql (Nose) No methicillin resistant Staphylococcus aureus isolated. No methicillin resistant Staphylococcus aureus isolated. [facility] No Panel Informationon 02-17 Interpretation and review of laboratory results Normal [facility] PHOSPHORUSon 02-17-2023 Phosphate [Mass/Vol] 2.6 mg/dL Normal 2.3-4.[address] [facility] Comment on above: Performed By: #### C #### [facility] [address] [place], [address] Phosphate [Mass/Vol] 2.6 mg/dL 2.3 - 4.2 mg/dL [facility] Progress Noteson 02-17-2023 Forecast Analyst Authentication Interface Message Text -------- GENERAL INFORMATION [...] 9-10 fracture was seen at [facility].The patient had 5 packs of RBCs, 3 packs of FFP, 1 platelet, TXA and Vit K from when he arrived to [facility] and in transit. 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 Normal [facility] [employer] XR CHEST AP OR PA 1 [...] is also seen. MACRO: None Normal [employer] [facility] ABO RH TYPEon 02-16-2023 ABO and Rh group Nom (Bld) Blood group O Rh(D) positive Normal [facility] [employer] [facility] Comment on above: Performed By: #### 8 [id number] #### NURSING GLUCOSE PROGRAM [address] [place] [address], [address] BASIC METABOLIC PANELon 12- Anion gap [Moles/Vol] 14 mmol/L Normal 10-20 The [facility] Comment on above: Performed By: #### C BC #### S PATHOLOGY LABORATORY [address] [place] [address], Calcium [Mass/Vol] 8.3 mg/dL Low 8.6-10.3 [facility] Comment on above: Result Comment: Note updated reference ranges. Performed By: #### C BC #### [facility] PATHOLOGY LABORATORY [address] [place] [address], Chloride [Moles/Vol] 109 mmol/L High 98-107 [facility] Comment on above: Result Comment: Note updated reference ranges. Performed By: #### C BC #### S PATHOLOGY LABORATORY [address] [place] [address], CO2 [Moles/Vol] 20 mmol/L Low 21-31 [facility] Comment on above: Result Comment: Note updated reference ranges. Performed By: #### C BC #### [facility] PATHOLOGY LABORATORY [address] [place] [address], Creatinine [Mass/Vol] 1.38 mg/dL High 0.70-1.30 [facility] Comment on above: Result Comment: Note updated reference ranges. Performed By: #### C BC #### [facility] PATHOLOGY LABORATORY [address] [place] [address], ESTIMATED GFR (CKD-EPI) 54 mL/min/1.73sqm Low >=60 [...] Inclusion of Race in Diagnosing Kidney Disease. [place] Journal of Kidney Diseases 202;79(2):268-88.e1. 2. N Engl J Med 1 Vol. 385 Issue 19 Pages 7634-8676 Performed By: #### C BC #### [facility] [address] [place], Glucose [Mass/Vol] 171 mg/dL High 74-[address] [facility] Comment on above: Performed By: #### C BC #### [facility] [address] [place], [place], Potassium [Moles/Vol] 4.5 mmol/L Normal 3.5-5.[address] Comment on above: Result Comment: Note updated reference ranges. Note updated reference ranges. Performed By: #### C BC #### [facility] [address] [place], Sodium [Moles/Vol] 138 mmol/L Normal 136-[address] [facility] [facility] Comment on above: Result Comment: Note updated reference ranges. Performed By: #### C BC #### [facility] [address] [place], [place], Urea nitrogen [Mass/Vol] 38 mg/dL High 7-[address] [facility] Comment on above: Result Comment: Note updated reference ranges. Performed By: #### C BC #### [facility] [address] [place], Anion gap [Moles/Vol] 13 mmol/L Normal 10-[address] [facility] Comment on above: Performed By: #### C BC #### [facility] [address] [place], Calcium [Mass/Vol] 9.8 mg/dL Normal 8.6-10.[address] [facility] Comment on above: Result Comment: Note updated reference ranges. Performed By: #### C BC #### [facility] [address] [place], Chloride [Moles/Vol] 111 mmol/L High 98-[address] [facility] Comment on above: Result Comment: Note updated reference ranges. Performed By: #### C BC #### [facility] [address] [place], CO2 [Moles/Vol] 25 mmol/L Normal 21-[address] [facility] Comment on above: Result Comment: Note updated reference ranges. Performed By: #### C BC #### [facility] [address] [place], [place], Creatinine [Mass/Vol] 1.12 mg/dL Normal 0.70-1.30 [facility] Comment on above: Result Comment: Note updated reference ranges. Performed By: #### C BC #### S PATHOLOGY LABORATORY [address] [place], ESTIMATED GFR (CKD-EPI) 69 mL/min/1.73sqm Normal [...] Inclusion of Race in Diagnosing Kidney Disease. [place] Journal of Kidney Diseases 2021;79(2):268-88.e1. 2. N Engl J Med 1 Vol. 385 Issue 19 Pages 8700-2775 Performed By: #### C BC #### S PATHOLOGY LABORATORY [address] [place], Glucose [Mass/Vol] 130 mg/dL High 74-109 [facility] [employer] [facility] Comment on above: Performed By: #### C BC #### S PATHOLOGY LABORATORY [address], [place], Potassium [Moles/Vol] 5.3 mmol/L High 3.5-5.[address] [facility] Comment on above: Result Comment: Note updated reference ranges. Note updated reference ranges. Performed By: #### C BC #### [facility] [address] [place], Sodium [Moles/Vol] 144 mmol/L Normal 136-145 The [facility] Comment on above: Result Comment: Note updated reference ranges. Performed By: #### C BC #### [facility] [address] [place], [place], Urea nitrogen [Mass/Vol] 27 mg/dL High 7-25 The [facility] Comment on above: Result Comment: Note updated reference ranges. Performed By: #### C BC #### [facility] [address] [place], [address] Anion gap [Moles/Vol] 12 mmol/L Normal 10-[address] Comment on above: Performed By: #### 8 2948 #### NURSING GLUCOSE PROGRAM [address] [place], [address] Calcium [Mass/Vol] 10.2 mg/dL Normal 8.6-10.[address] [facility] Comment on above: Result Comment: Note updated reference ranges. Performed By: #### 8 2948 #### NURSING GLUCOSE PROGRAM [address] [place], [address] Chloride [Moles/Vol] 108 mmol/L High 98-107 The [facility] Comment on above: Result Comment: Note updated reference ranges. Performed By: #### 8 2948 #### NURSING GLUCOSE PROGRAM [address] [place], [address] CO2 [Moles/Vol] 28 mmol/L Normal 21-[address] [facility] Comment on above: Result Comment: Note updated reference ranges. Performed By: #### 8 2948 #### NURSING GLUCOSE PROGRAM [address] [place], [address] Creatinine [Mass/Vol] 1.02 mg/dL Normal 0.70-1.30 [facility] Comment on above: Result Comment: Note updated reference ranges. Performed By: #### 8 2948 #### NURSING GLUCOSE PROGRAM [address] [place], [address] ESTIMATED GFR (CKD-EPI) 77 mL/min/1.73sqm Normal >=[address] [facility] Comment on above: Result Comment: 2020 [...] Inclusion of Race in Diagnosing Kidney Disease. [place] Journal of Kidney Diseases 2021;79(2):268-88.e1. 2. N Engl J Med 2021 Vol. 385 Issue 19 Pages 9689-7949 Performed By: #### 8 2948 #### NURSING GLUCOSE PROGRAM [address] [place], [address] Glucose [Mass/Vol] 125 mg/dL High 74-[address] [facility] Comment on above: Performed By: #### 8 2948 #### NURSING GLUCOSE PROGRAM [address] [place], [address] Potassium [Moles/Vol] 4.5 mmol/L Normal 3.5-5.[address] Comment on above: Result Comment: Note updated reference ranges. Note updated reference ranges. Performed By: #### 8 2948 #### NURSING GLUCOSE PROGRAM [address] [place], [address] Sodium [Moles/Vol] 143 mmol/L Normal 136-145 The [facility] Comment on above: Result Comment: Note updated reference ranges. Performed By: #### 8 2948 #### NURSING GLUCOSE PROGRAM [address] [place], [address] Urea nitrogen [Mass/Vol] 25 mg/dL Normal 7-[address] [facility] Comment on above: Result Comment: Note updated reference ranges. Performed By: #### 8 2948 #### NURSING GLUCOSE PROGRAM [address] [place], [address] BLOOD CULTUREon 02-16-2023 Bacteria identified Cx Nom (Bld) C BLOOD: No Growth Normal [facility] Comment on above: Performed By: #### M G, CH8, PHOS #### [facility] [address] [place], [address] BLOOD GAS, ARTERIALon 2022 Base excess Calc [...] [Moles/Vol] 25 mmol/L 21 - 28 mmol/L [facility] Interpretation and review of laboratory results Abnormal [facility] Oxygen (BldV) [Partial pressure] 36 mm[Hg] Low [facility] Oxygen gas flow Oxygen delivery system Nasal Canula [facility] Oxygen saturation in Venous blood 67.1 % Low 70.0 - 80.0 % [facility] pH (BldV) 7.367 [pH] 7.320 - 7.430 [facility] Basic metabolic 2000 panelon 02-16-2023 Anion gap [...] 171 mg/dL High 74 - 109 mg/dL [facility] Interpretation and review of laboratory results Abnormal [...] 130 mg/dL High 74 - 109 mg/dL [facility] Potassium [Moles/Vol] 5.3 mmol/L High 3.5 - 5.0 mmol/L [facility] Sodium [Moles/Vol] 144 mmol/L 136 - 145 mmol/L [facility] Urea nitrogen [Mass/Vol] 27 mg/dL High 7 - 25 mg/dL [facility] Blood Bank Slipon 02-16-2023 Blood Bank Slip [phone] [id number]# 1.00TIFF Normal [facility] CALCIUM, IONIZEDon CR ICA 1.34 mmol/L High 1.15-1.33 The [facility] Comment on above: Result Comment: This test was developed, and its performance characteristics determined by the Department of Pathology of The [facility] System. It has not been cleared or approved by the FDA. This test is used for clinical purposes only. Performed By: #### C R ICA ####[facility] PATHOLOGY [id number] [place], [place], Calcium.ionized (Bld) [Moles/Vol] 1.34 mmol/L High 1.15 - 1.33 mmol/L [facility] Interpretation and review of laboratory results Abnormal [facility] CR ICA 1.24 mmol/L Normal 1.15-1.33 The [facility] Comment on above: Result Comment: This test was developed, and its performance characteristics determined by the Department of Pathology of The [facility] System. It has not been cleared or approved by the FDA. This test is used for clinical purposes only. Performed By: #### C BC #### [facility] [address] [place], [place], CALCIUM, IONIZEDOrdered By: Vivian Pena on 02-16-2023 Calcium.ionized (Bld) [Moles/Vol] 1.24 mmol/L 1.15 - 1.33 mmol/L [facility] Interpretation and review of laboratory results Normal [facility] CBC WITH DIFFERENTIALon 01-25 Basophils (Bld) [#/Vol] 0.01 10*3/uL Normal 0.00-0.20 The [facility] Comment on above: Performed By: #### ASIA Freitas, PHOS #### [facility] [address] [place] [address], Basophils/100 WBC (Bld) 0.1 % Normal <=1.9 The [facility] Comment on above: Performed By: #### ASIA Freitas, PHOS #### [facility] [address] [place] [address], Eosinophils (Bld) [#/Vol] 0.00 10*3/uL Normal 0.00-0.70 The [facility] Comment on above: Performed By: #### ASIA Freitas, PHOS #### S PATHOLOGY LABORATORY [address] [place] [address], Eosinophils/100 WBC (Bld) 0.0 % Low 0.1-4.0 The [facility] Comment on above: Performed By: #### ASIA Freitas, PHOS #### S PATHOLOGY LABORATORY [address] [place] [address], Erythrocyte distribution width (RBC) [Ratio] 14.9 % High 11.5-14.5 The [facility] Comment on above: Performed By: #### ASIA Freitas, PHOS #### [facility] [address] [place] [address], Hematocrit (Bld) [Volume fraction] 38.9 % Low 41.0-53.0 The [facility] Comment on above: Performed By: #### ASIA Freitas, PHOS #### [facility] [address] [place] [address], Hemoglobin (Bld) [Mass/Vol] 12.9 g/dL Low 13.9-16.3 The [facility] Comment on above: Performed By: #### ASIA Freitas, PHOS #### [facility] [address] [place] [address], Lymphocytes (Bld) [#/Vol] 0.42 10*3/uL Low 1.00-4.80 The [facility] Comment on above: Performed By: #### ASIA Freitas, PHOS #### [facility] [address] [place] [address], Lymphocytes/100 WBC (Bld) 3.3 % Low 24.0-44.0 The [facility] Comment on above: Performed By: #### ASIA Freitas, PHOS #### S PATHOLOGY LABORATORY [address] [place] [address], MCH (RBC) [Entitic mass] 29.6 pg Normal 26.0-34.0 The [facility] Comment on above: Performed By: #### ASIA Freitas, PHOS #### S PATHOLOGY LABORATORY [address] [place] [address], MCHC (RBC) [Mass/Vol] 33.2 g/dL Normal 32.0-35.9 The [facility] Comment on above: Performed By: #### ASIA Freitas, PHOS #### S PATHOLOGY LABORATORY [address] [place] [address], MCV (RBC) [Entitic vol] 89 fL Normal 80-100 The [facility] Comment on above: Performed By: #### ASIA Freitas, PHOS #### S PATHOLOGY LABORATORY [address] [place] [address], MONOCYTE DISTRIBUTION WIDTH 20 Normal <=20 The [facility] Comment on above: Performed By: #### ASIA Freitas, PHOS #### S PATHOLOGY LABORATORY [address], [place], Monocytes (Bld) [#/Vol] 1.18 10*3/uL High 0.20-1.00 The [facility] Comment on above: Performed By: #### ASIA Freitas, PHOS #### [facility] [address] [place] [address], Monocytes/100 WBC (Bld) 9.1 % Normal 2.0-11.[address] Comment on above: Performed By: #### ASIA Freitas, PHOS #### S PATHOLOGY LABORATORY [address], Neutrophils (Bld) [#/Vol] 11.30 10*3/uL High 1.50-8.[address] [facility] Comment on above: Performed By: #### ASIA Freitas, PHOS #### [facility] [address], Neutrophils/100 WBC (Bld) 87.5 % High 31.0-76.[address] [facility] Comment on above: Performed By: ###ASIA Alas, PHOS #### [facility] [address] [place] [address], Platelet mean volume (Bld) [Entitic vol] 7.8 fL Normal 7.5-11.[address] [facility] Comment on above: Performed By: ###ASIA Alas, PHOS #### S PATHOLOGY LABORATORY [address], Platelets (Bld) [#/Vol] 149 10*3/uL Low 150-[address] [facility] Comment on above: Performed By: #### ASIA Freitas, PHOS #### S PATHOLOGY LABORATORY [address], RBC (Bld) [#/Vol] 4.36 10*6/uL Low 4.50-5.[address] [facility] Comment on above: Performed By: #### ASIA Freitas, PHOS #### S PATHOLOGY LABORATORY [address], WBC (Bld) [#/Vol] 12.9 10*3/uL High 4.5-11.[address] [facility] Comment on above: Performed By: ###ASIA Alas, PHOS #### [facility] [address] [place], CBC panel Auto (Bld)Ordered By: Wesley [...] RBC (Bld) [#/Vol] 4.22 10*6/uL Low [facility] WBC (Bld) [#/Vol] 11.1 10*3/uL 4.5 - 11.5 K/uL [facility] Erythrocyte distribution width (RBC) [Ratio] 14.8 % High 11.5 - 14.5 % [facility] Hematocrit (Bld) [Volume fraction] 39.4 % Low 41.0 - 53.0 % [facility] Hemoglobin (Bld) [Mass/Vol] 13.3 g/dL Low 13.9 - 16.3 g/dL [facility] Interpretation and review of laboratory results Abnormal [facility] MCH (RBC) [Entitic mass] 30.2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 [address] POCT PT/INRon 10-04-2022 POCT INR 1.9 High .7-1.2 [facility] Comment on above: Performed By: #### 2 [id number] #### [facility] [address] [place] [address] POCT PT 21.3 second(s) High 8.0-15.0 [facility] Comment on above: Performed By: #### 2 [id number] #### [facility] [address] [place] [address] POCT PT/INRon 09-06-2022 POCT INR 1.8 High .7-1.2 [facility] Comment on above: Performed By: #### 1 [id number], [id number], [id number], [id number] #### [facility] [address] [place] [address] POCT PT 19.9 second(s) High 8.0-15.0 [facility] Comment on above: Performed By: #### 1 [id number], [id number], [id number], [id number] #### [facility] [address] [place] [address] Tobacco Screening.on 023 Fall risk assessment a) No falls within the last year [facility] 250 DO Work Phone: Tobacco use status CP b) No [facility] 250 DO Work Phone: Tobacco Screening. Yes [facility] 250 DO Work [...] rhythm. Crispin Porter M.D. ca Dictated: 08/02/2022 [id number] Transcribed: 08/03/2022 Normal [facility] Comment on above: Result Comment: Elec tronically Signed By: German ESCOBEDO, Christopher Bansal\.carol\Date and Time Signed: 08/19/22 13:42 EDT POCT PT/INRon 08-16-2022 POCT INR 3.1 High .7-1.2 [facility] Comment on above: Performed By: #### 2 [id number] #### [facility] [address] [place] [address] POCT PT 32.7 second(s) High 8.0-15.0 [facility] Comment on above: Performed By: #### 2 [id number] #### [facility] [address] [place] [address] Falls Screening (Age 18+)on 08-13-2022 Fall risk assessment a) No falls within the last year [facility] 250 DO Work Phone: Consent for Procedure/Surger yon 08-05-2022 Consent for Procedure/Surgery [id number] .00CD:127 Normal [facility] Monitor Recordon 08-05-2022 Monitor Record [id number] .00CD:127 Normal [facility] Cardiovascular Reporton Cardiovascular Report [id number]# 1.00CD:127 Normal [facility] Consent for Treatmenton Consent for Treatment [id number] .00CD:127 Normal [facility] Consultation Noteon 08-03-19 Consultation Note Patient: FREDRICK [...] History of Adverse/Allergic Reaction to Sedation: None. [facility] Comment on above: Result Comment: Elec tronically Signed By: Christopher Porter MD\.br\Date and Time Signed: 08/02/22 12:50 EDT Inpatient Clinical Summaryon 08-02-2022 Inpatient Clinical Summary [address] [address] Clinical Summary Person Information: Name: FREDRICK STROUD Age: 71 Years : 1950 Sex: Male PCP: KARINA MELGAR MD Marital Status: Phone: [phone] Race: White Ethnicity: Non- or Language: Mongolian Visit Id: Visit Reason: I48.19 Speciality: Acuity: Enc Type: Ambulatory/Same Day Surgery Med Service: Cardiovascular Arrival: 08/02/2022 11:37:14 Discharge: Dispo Type: Address: [address] [place], [place] [id number] Provider Notes: Diagnosis: Atrial fibrillation Problems Active [...] This Visit Final Med List: acetaminophen-hydroco done ([place] 325 mg-5 mg oral tablet) 1 Tablets [...] Follow up: With: Address: When: Christopher Porter [facility], [facility] [address] [place] [address] Business (1) Comments: Call for followup appointment Type Location Start Finish State Anticoagulation Follow Up 15 (FT) FT.CARDIO 08/16/2022 11:15 AM 08/16/2022 11:30 AM Confirmed Patient Education Information: CV - Cardioversion (CUSTOM) Normal [facility] Inpatient Patient Summaryon 08-02-2022 Inpatient Patient Summary [address] [address] Patient Discharge Instructions PERSON INFORMATION Name: FREDRICK [...] Follow up: With: Address: When: Christopher Porter [facility], [facility] [address] [place] [phone] Business (1) Comments: Call for followup appointment [...] with No Changes Other Medications acetaminophen-hydroco done ([place] 325 mg-5 mg oral tablet) 1 Tablets [...] WITH YOU AT ALL TIMES. acetaminophen-hydroco done ([place] 325 mg-5 mg oral tablet) 1 Tablets [...] Pharmacy Information: Comment: PATIENT EDUCATION INFORMATION Instructions: [place], [place] CARDIOVERSION AFTER THE PROCEDURE: DIET: ? [...] the event (more content not included)... Normal [facility] Laboratory - Chemistry and C hemistry - challengeon 08-02-2022 CO2 [Moles/Vol] 27 mmol/L Normal 21-31 [facility] y 250 DO Work Phone: Laboratory - Coagulationon 0 08-02-2022 INR Coag (Bld) [Relative time] 3.5 {INR} [facility] y 250 DO Work Phone: Comment on above: INR results are spec ifically intended to assess patients stabilized on long-term Anticoagulation therapy suggested INR?s ?Less Intensive Anticoagulation? 2.0 ? 3.0Conventional Range 3.0 ? 4.5 Lyteson 08-02-2022 Anion gap [Moles/Vol] 12 mmol/L Normal 6-16 [facility] Comment on above: Order Comment: STAT on admission. Performed By: #### 2 [id number] #### [facility] [address] [place] [address] Chloride [Moles/Vol] 104 mmol/L Normal 101-111 [facility] Comment on above: Order Comment: STAT on admission. Performed By: #### 2 [id number] #### [facility] [address] [place] [address] CO2 [Moles/Vol] 27 mmol/L Normal 21-31 [facility] Comment on above: Order Comment: STAT on admission. Performed By: #### 2 [id number] #### [facility] [address] [place] [address] Potassium [Moles/Vol] 4.5 mmol/L Normal 3.5-5.3 [facility] Comment on above: Order Comment: STAT on admission. Performed By: #### 2 [id number] #### [facility] [address] [place] [address] Sodium [Moles/Vol] 138 mmol/L Normal 135-145 [facility] Comment on above: Order Comment: STAT on admission. Performed By: #### 2 [id number] #### [facility] [address] [place] [address] No Panel Informationon 08-02 12 {mEq/L} Normal 6-16 [facility] 250 DO Work Phone: 104 mmol/L Normal 101-111 [facility] 250 DO Work Phone: 4.5 mmol/L Normal 3.5-5.3 [facility] 250 DO Work Phone: 138 mmol/L Normal 135-145 [facility] 250 DO Work Phone: 41.2 {second(s)} above high threshold 9.4-12.5 [facility] 250 DO Work Phone: [...] the same coagulation reagent and instrumentation as [facility]. Currently there are no coagulation studies available worldwide for children to 14 days, and no normal ranges. PTon 08-02-2022 INR Coag (PPP) [Relative time] 3.5 {INR} Invalid Interpretation Code [facility] Comment on above: Order Comment: On ad mission if patient is on Coumadin therapy. Result Comment: INR results are specifically intended to assess patients stabilized on long-term Anticoagulation therapy suggested INR?s ?Less Intensive Anticoagulation? 2.0 ? 3.0 Conventional Range 3.0 ? 4.5 Performed By: #### 2 [id number] #### [facility] [address] [place] [address] PT Coag (PPP) [Time] 41.2 second(s) High 9.4-12.5 [facility] Comment on above: Order Comment: On [...] the same coagulation reagent and instrumentation as [facility]. Currently there are no coagulation studies available worldwide for children to 14 days, and no normal ranges. Performed By: #### 2 [id number] #### [facility] [address] [place] [address] Patient Education - Texton 0 08-02-2022 Patient Education - Text [place], [place] CARDIOVERSION AFTER THE PROCEDURE: DIET: ? [...] event you are unable to reach your government auditor, please call [facility] at [phone] and the canning machine operator will assist you in contacting your [...] or toes turn cold or blue. Normal [facility] Progress Note-Physicianon Progress Note-Physician Patient: FREDRICK STROUD Age: 71 years Sex: Male : 1950 Associated Diagnoses: None Author: German ESCOBEDO, Christopher Bansal Impression and Plan DCC WITH PROPAFOL 70 MG AND 200 J SYNC ONCE TO NSR SAT>95 % NO NEURO CHANGES PLAN HOME ON SAME RX Normal [facility] Comment on above: Result Comment: Elec tronically Signed By: German ESCOBEDO, Christopher Bansal\.br\Date and Time Signed: 08/02/22 13:03 EDT POCT PT/INRon 07-26-2022 POCT INR 2.7 High .7-1.2 [facility] Comment on above: Performed By: #### 2 [id number] #### [facility] [address] [place] [address] POCT PT 29.2 second(s) High 8.0-15.0 [facility] Comment on above: Performed By: #### 2 [id number] #### [facility] [address] [facility] [place] [address] POCT PT/INRon 07-19-2022 POCT INR 3.2 High .7-1.2 [facility] Comment on above: Performed By: #### 2 [id number] ####[facility] [address] [place] [address] POCT PT 34.5 second(s) High 8.0-15.0 [facility] Comment on above: Performed By: #### 2 [id number] ####[facility] [address] [place] [address] Physician Orderon 07-16-2022 Physician Order [id number] .00CD:127 Normal [facility] POCT PT/INRon 07-12-2022 POCT INR 4.3 High .7-1.2 [facility] Comment on above: Performed By: #### 1 [id number], [id number], [id number], [id number] #### [facility] [address] [place] [address] POCT PT 45.1 second(s) High 8.0-15.0 [facility] Comment on above: Performed By: #### 1 [id number], [id number], [id number], [id number] #### [facility] [address] [place] [address] Falls Screening (Age 18+)on 07-05-2022 Fall risk assessment a) No falls within the last year [employer] 600 DO Work Phone: Tobacco use status [facility] b) No [employer] 600 DO Work Phone: Office Visit (Cardiology)on [...] 2 MG Oral TabletTake as directed by [facility] coumadin clinic Zinc 50 MG [place] 1 [...] negative for complaint. Vitals Vital Signs Recorded: [id number] 09:08AM Heart Rate72, Apical Deyrrftm771, LUE, Sitting Skxtkttvk53, LUE, Sitting Height5 ft 6 in Dnhauy765 lb BMI Wennckpjgf41.54 kg/m2 BSA Calculated2.18 Tobacco Useb) No F (more content not included)... Normal [facility] POCT PT/INRon 06-26-2022 POCT INR See Comment Invalid Interpretation Code .7-1.2 [facility] Comment on above: Result Comment: Test ing error, please disregard previously charted results Performed By: #### 1 [id number], [id number], [id number], [id number] #### [facility] [address] [place] [address] POCT PT See Comment Invalid Interpretation Code 8.0-15.0 [facility] Comment on above: Result Comment: Test ing error, please disregard previously charted results Performed By: #### 1 [id number], [id number], [id number], [id number] #### [facility] [address] [place] [address] ECG 12 lead ECGon 06-11-2022 ECG 12 lead ECG [facility] Main [place] [address] [place], [place] [address] Electrocardiograph Report Signed Patient: Fredrick Stroud MR#: [id number] 427 : 1950 Acct:[id number] Age/Sex: 71 / M ADM Date: 06/11/22 Loc: Room: Type: [facility] Attending Dr: Christopher Porter MD [...] Wisam Torre MD 0 06/11/22 1650 Normal [facility] ECG post procedureon 023 ECG post procedure [facility] Main [place] [address] [place] [address] Electrocardiograph Report Signed Patient: Fredrick Stroud MR#: [id number] 427 : 1950 Acct:[id number] Age/Sex: 71 / M ADM Date: 06/11/22 Loc: Room: Type: [facility] Attending Dr: Christopher Porter MD [...] Wisam Torre MD 0 06/11/22 1650 Normal [facility] Electrolyteson 06-11-2022 Anion gap [Moles/Vol] 12.3 mmol/L Normal 6.0-15.0 [facility] Comment on above: Result Comment: PERF ORMED BY: [facility] [address] [place] [id number] PATHOLOGIST LENS ENGRAVER EYAD HOWARD M.D. Performed By: #### C BC, CMP, HS TROP, BNP #### [facility] [address] [place] [address] [place] Chloride [Moles/Vol] 103 mmol/L Normal 98-107 [facility] Comment on above: Performed By: #### C BC, CMP, HS TROP, BNP #### [facility] [address] CO2 [Moles/Vol] 28.2 mmol/L Normal 21.0-31.0 [facility] Comment on above: Performed By: #### C BC, CMP, HS TROP, BNP #### [facility] [address] [place] [address] [place] Potassium [Moles/Vol] 4.5 mmol/L Normal 3.5-5.1 [facility] Comment on above: Performed By: #### C BC, CMP, HS TROP, BNP #### [facility] [address] [place] [address] [place] Sodium [Moles/Vol] 139 mmol/L Normal 136-145 [facility] Comment on above: Performed By: #### C BC, CMP, HS TROP, BNP #### [facility] [address] [place] [address] [place] No Panel Informationon 06-11 12.3\S\12.3 Normal 6.0-15.0 [facility] 250 DO Work Phone: Comment on above: PERFORMED BY:[facility] [place], [place] [phone] MEDICAL DIRECTOREYAD HOWARD M.D. 28.2\S\28.2 Normal 21.0-31.0 -[facility] 250 DO Work Phone: [phone] 103\S\103 Normal 98-107 [facility] 250 DO Work Phone: [phone] 4.5\S\4.5 Normal 3.5-5.1 [facility] 250 DO Work Phone: [phone] 139\S\139 Normal 136-145 [facility] 250 DO Work Phone: [phone] POCT PT/INRon 06-07-2022 POCT INR 2.7 High .7-1.2 [facility] Comment on above: Performed By: #### 2 [id number] #### [facility] [address] [place] [address] POCT PT 28.8 second(s) High 8.0-15.0 [facility] Comment on above: Performed By: #### 2 [id number] #### [facility] [address] [place] [address] POCT PT/INRon 05-28-2022 POCT INR 2.8 High .7-1.2 [facility] Comment on above: Performed By: #### 1 [id number], [id number], [id number], [id number] #### [facility] [address] [place] [address] POCT PT 30.6 second(s) High 8.0-15.0 [facility] Comment on above: Performed By: #### 1 [id number], [id number], [id number], [id number] #### [facility] [address] [place] [address] POCT INR Error Invalid Interpretation Code .7-1.2 [facility] Comment on above: Performed By: #### 2 [id number] #### [facility] [address] [place] [address] POCT PT Strip Error Invalid Interpretation Code 8.0-15.0 [facility] Comment on above: Performed By: #### 2 [id number] #### [facility] [address] [place] [address] POCT PT/INRon 05-21-2022 POCT INR 3.1 High .7-1.2 [facility] Comment on above: Performed By: #### 1 [id number], [id number], [id number], [id number] #### [facility] [address] [place] [address] POCT PT 33.1 second(s) High 8.0-15.0 [facility] Comment on above: Performed By: #### 1 [id number], [id number], 52735356, [id number] #### [facility] [address] [place] [address] POCT PT/INRon 05-14-2022 POCT INR 3.2 High .7-1.2 [facility] Comment on above: Performed By: #### 2 [id number] ####[facility] [address] [place] [address] POCT PT 34.5 second(s) High 8.0-15.0 [facility] Comment on above: Performed By: #### 2 [id number] ####[facility] [address] [place] [address] POCT INR Error Invalid Interpretation Code .7-1.2 [facility] Comment on above: Performed By: #### 2 [id number] #### [facility] [address] [place] [address] POCT PT Strip Error Invalid Interpretation Code 8.0-15.0 [facility] Comment on above: Performed By: #### 2 [id number] #### [facility] [address] [place] [address] Falls Screening (Age 18+)on 05-02-2022 Fall risk assessment a) No falls within the last year -[facility] 600 DO Work Phone: Progress Note-Physicianon Progress [...] stroke: no 4. Serious co-morbid conditions (recent DE, anemia with Hct <30%, CRI with SCr > 1.5, DM): no Score = 1/4 Risk (low = 0, mod = 1-2, high = 3-4): Health Status Allergies: Allergic Reactions (Selected) No Known Medication Allergies, Allergies (1) Active Reaction No Known Medication Allergies None Documented Current medications: (Selected) Prescriptions Prescribed MDI spacer adult: 1 EA, Inhalation, As Directed, 1 EA, Refill(s) 0 [place] 325 mg-5 mg oral tablet: 1 tab(s), [...] spacer adult 1 EA, Inhalation, As Directed [place] 325 mg-5 mg oral tablet 1 tab(s), PRN, Oral, q6hr Ventolin HFA 90 mcg/inh inhalation aerosol with adapter 2 puff(s), PRN, Inhalation, q6hr Coumadin , No qualifying data available Problem list: All Problems HTN (hypertension) / SNOMED CT 0685911160 / Confirmed Class 3 severe obesity with body mass index (BMI) of 40.0 to 44.9 in adult / SNOMED CT 7059511175 / Confirmed Resolved: Cancer of prostate / SNOMED CT 8354677921, Active Problems (2) Class 3 severe obesity [...] stroke: no 4. Serious co-morbid conditions (recent DE, anemia with Hct <30%, CRI with SCr > 1.5, DM): no Score = 1/4 Risk (low = 0, mod = 1-2, high = 3-4): Normal [facility] Comment on above: Result Comment: Elec [...] therapy and has been managed by the [facility] Coumadin clinic. He says he is therapeutic [...] Recorded: 29Apr2022 11:48AM Heart Rate60, R Radial Lnvzksar234 Roftzkvtn89 Height5 ft 6 in Csrjwz875 lb 6 oz BMI Zrbphwhvhn45.09 kg/m2 BSA Calculated2.19 Tobacco Useb) No Falls Screening (Age 18+)a) No falls within the last year Physical Exam Constitutional: alert and in no acute distress. Eyes: no erythema, swelling or discharge from the eye . Neck: neck i (more content not included)... Normal [facility] Tobacco Screening.on 023 Fall risk assessment a) No falls within the last year [employer] 600 DO Work Phone: Tobacco use status [facility] b) No [employer] 600 DO Work Phone: POCT PT/INRon 04-19-2022 POCT INR 1.7 High .7-1.2 [facility] Comment on above: Performed By: #### 1 [id number], [id number], [id number], [id number] #### [facility] [address] [place] [address] POCT PT 19.1 second(s) High 8.0-15.0 [facility] Comment on above: Performed By: #### 1 [id number], [id number], [id number], [id number] #### [facility] [address] [place] [address] [place] [address] Coding Summary.on 04-08-2022 Coding Summary. CD:[id number] G h0bWw+PGhlYWQ+QI3VKOG tQ42zbWEbaT2GH0yHYC0A BSKFMLPFHH4BYN6duKI0A WfhX1OojhYw XdikdBLmVQ93VGo9GOV4l CapXDxhnI5nvWUzT6g8Pp QxRJ50lH00WShnRABvNrM 3LjZpbjsgbWFy S1elByDtuVYmKdg+PHRhY mxlIHdpZHRoPScxMDAlJy YvmRdfBT3sVs9sIMMeTKE vbGxhcHNlOiBj w7yuGECdTKegSU8qyDowI 4KhkMD9CVKar8s8Ew66rP I+ADYyFVB1wXxpXAxxz63 9VwJbv3owPUW8 oCJbZVuaFXJ5Q24by4I8C UGcCUWhWEG0oZR8eC4nbR oudcwcZ0XqaCWuDkM5FLU 9bYWffC9viZhh woxffN9mFuz+H56TXW1VM YPGXI1ATjm6F5HcFraubU I+TI60RPTeUI16sMCubSF ci9uwqKo0LsHd IVMtCGC9xCcgVNqjr8YcU HTjJ29hdSOtn5D2ZIGbbL htpTSyVuArfPN6iM6eMHn zabeob5bbvivx Gppzn3eqfs74zQ65S22zA UfsVUHoWYO6GGBwRYLrbA rjyi3gzM2oSt7+CVshe4u yk8znsQl8IpXf BKEwhfLusPchOWF8f4VtC c24J6HedGajt8LhXma2gf 49jOJic9N0pCV8TFwbRAW xdE8rBTtfAnK8 CHOkZySuoG68yLEeJWdmZ f3raZwjdHrvUH1qZSBesn fdSPWloP4jMSPcjDIcfHj wJI6tGBNagjgr q567RvOrIFJ8UQFteVGdO 1PrcA4nGsQgVJSbKXTiA5 SzkKZpRXarK315LNcyOwK 6FWHgslZkV7Mw YXLzsFmoBqP0s4Q7Cf5Wg 9TrtekeZVQ4AYggLIQvGd FcMiAhFlL3F4ZvFym9JHX xeSkjRK5pW4Ul CJNnognuivxtnAY0ZQZtA XPwuH56mTZeQTypAt4tj9 T2m716GSBiAKRfxT08Yg0 udDogMTBwdCBU dV3vrtrsu9unkmmyKoKmF PJjMWf7FNs8GKMmbBqcOy SzVGH9WnJ0UYF8rPKgrZ2 uuHrqvqtzgU2m Oyc+I52yhJ6kUAX5YJY9h [id number] RyPjwvdGFibGU+PGRpdiB baVjqCL8jXmBa v7kod8VxTYqlH2QsXACxS DdaFrq7LQExVJD1qBI0xE 0uSUAtFUmkp2J1dHM6O5S urwOazc4ev8ua DQBpBYmeN58amFAlv6L6F ODjuBN3OQIxgFllYkWpcH 93Oyc+ZKXbpLpqh1LlYle bm9hht6dryHc6 WaAjPEVrgeNsbNbfCVZ7a 3DyJx35U60iSBbbXUEvRE SaRKQcBGWkaAfymx9jpE4 wIi8+PGNvbCB3 nTS4rG7nATOlMhG1HFutI 702ShQczIFfHssrj7mns5 gwwZr4VqFjAQOmvhEiyTv yEZI2j8XuIm37 C97zXTohCZPcIBYyMEUkB VUmrRgkva3bnS2iMz2+PC 3is8kuyy69nI52pIA+PHR nIAO9uWdrTRzb XLKjwG6uPBrnWnR0QCGeY nSpjN17sJQeJOxoQo7qtY sxwRqtFG1jVYLfccwvj68 9ZpGtl8ryIIGy gQGhYRruGKS5J33bz2D4H UMaNUSoIRD2fUS4oY4vhS lnbjogbGVmdDsgdmVydGl mYZhmRMmgW423 IHRvcDsnPlBhdGllbnQgT lFmFXu4N9BfWyu9OZSelN otVL5rwMTjBGikUw7zoMm rlVsaFX9mVOVk mpbdj571QbCii1pxGEWti QNbXYxcQGJ7K43kt9T4FT GgHSXcBAV2gAI6yJ5elLf nbjogbGVmdDsg nxYjgDfaNLsyTObnH517T HRvcDsnPkJpcnRoIERhdG Q5VT87PV49pFPgt2S6bHN 0Y9HlPVWkovva qryfkKM9RELvZSWqeO53I m7xhFfvLt6mKOTqTOX9ZP EfrBJrG2FkjV3jDqDcBBL aVGZfP4KumMOl UWheA918IRszEiN3TIAqk qSlH2IlORWhrZydYxH9l4 L9Fs5NI4F0PO74BU95hTE tk7O0rMP8U0Kh JQSjzlkguoklxQQ8YPJtZ NDcgU51Ba5ycTibGl8kCZ FfTJQ9UTJwsHEoR3FojX6 yOiAjMDAwMDAw C9TdhMReIKkoL125FPduB mZ4FRPwleGmK2XcXXQatP hfSnD8o8W9Hr8JAZy2RG9 0VZ88jXJtk8F9 xVL6U4WgDCDgrgtvqxibo XX8ZTEaAOEnaV92Fp0zuM nkSw4nXAVeDZK7QEDorJH fM7GowI5pPbFc XAMnMTKrG0QwwGDfFTlaN 543SIxmJkJ7FQYzfnZtE2 FgXTEhwOkkWhO2u9M8Ol1 THHLiQG37RAH6 cAL5HT50ES09J1RqFvxut GFibGU+PHRhYmxlIHdpZH RoPScxMDAlJyBzdHlsZT0 oKb4vYATbDVLk jCshqREtKvUae9zwLMVjD JdsCL9laNwmY5MkhCK3NG Cin5l6Wq91B02vV5SmnZE +YVUhcFU0gUZ6 fE1rGpRpXhG0EDuhD324H zAutTHoBmzwx0psd1ycaC e6XvT8QMPoubSjiSagKLH 2q4AhDn85F87s IHdpZHRoPSIxNSUiIHZhb Ljgke9ucW3lNz9+PGNvbC B8fQW4wR5tNaIrLtF9FAe qR583FeGceNMv Hpkwp1csw5ipjTt1AoYeY JVpayTgrOtxZUQ6v2GmQz 88U0AryGziq1BsRmy3ov4 8sDRsg1X0zHC6 B6OtBMBivenfrYPdxStaJ F8oIWGxtzsvKEVaxD0lDQ UyF7m2XjJbMgW6HSksZ6T twbL5VHTavQGm MQmeJVF8M49ee6R5MWLgS FElPIE1hBW0dM1wzNeikv ogbGVmdDsgdmVydGljYWw qNPqyR578AJCx yHuvCVZlrK9aOVLryCWba BsxUE1zKAFvybsoIvQERb IHLBbaVELCDbvRMVx1C9B xByl3TEVjjAeo VC0mdEDsFQurJs9djRwyx UsdVB1wWVDvfwppTAVtrE 7rHSWwuGRvhJwrPU0kNRG fjrskt791NcDu TNX9AVSxqZWtB0QwxZ4bC wGqKBDkILKbQ3HqwOXjYC xfS236YWcqWnY1CRVopzH mP7FuQREgjCfe ZzP3l3O9Zl9oOT2hJB5pJ PA7PG79SF10oZOnd9E9cD N8D9XxZZAeznelxwnseCL 5XJDzQXCnaC95 dFBmVJvzIt2oi2D2l497E BZdAZJltB88Pc1ehAmqLH KctHQRiS1milepb3xuerd gIzAwMDAwMDt0 HPy0LLIewTbbJbDbMCK2J nT3VUO2iXLzaN8wgTyzuw ukcK2aNem+NzMgWWVhcnM 3G0VyItv4PETg sVzyOC2qqOBvNPiyKy5uz OkyoZwqUB1jUDSbkdicAF ZivT3xXBNcaWErrClvEA2 dHABtydugt583 HgBzUBQ1TNMajYQuM8Xnm O5gHkPhVWDfKRMwZ7DubT MqTHikX638VAamNmS9VBV bejYdV4NzLDCs uTrcPsO3v4K3Oc5RYZljB J76MS36kNAfi4R5sKG8W3 CxDUIyepkdyesutNX8OQK hQUOlnC23xDXb BPenVy2am0P7n405KERrK LIznZ78Uo0jdQscQOWnvT PFwM7wwechk9gkjmudPzG xWVHzYUr5UKu6 NNOpqCqrXcOuZSY6IdR2J VQ8hZFmmI2qeHvawialoD 9wOyc+AdBayZZmcX4kSX2 4YW08V0OyRfat dGFibGU+PHRhYmxlIHdpZ HRoPScxMDAlJyBzdHlsZT 5iIs4mJTXbILNphLnekGM lGjZhs3obBLXd WUkxFA4shIxoM7LbeJB4G EIgb5s8Wr03Q80mC1IrrG A+AHNnyNS0qWD8yF6dNeA fQaA4JNicY014 MjPzwKQzRmldm7fyg6vnr Lr7QvNfSBXupgHvqPtjSB D6s4HtMe58Q20pJJjeYPA oPSIyMCUiIHZh vElito4mfV5vBq9+PGNvb WI5jBK2hG3zWtAdBhY4FR ugR115BePqoIXbNjuyB04 dZ9SdbJF+PHRy Uye0BDGoyHbtIB8ubLSwK UnsAl5oQFP9KnTtKcPzUJ pyD4GkFUNvkvhgajjszIK 3HENrDAGtcO89 Ez3qfNusBi2iPAHcANX8V OTkyYTfY1NowI6sOnWuFF JyGXCrA2QncGXvCUjtW53 4YOcpNtK1YXXg jvHyT6LoVJTzzRkiLtE4g 5J3Uy4ZzApddXXlYJ4xJs CyJMn0S8OmDkm2KLLarNs yGV0uiXEzDOeq Bi2viNsziIhhSC4bETMob gtnc286NzCfe1grCZNbkA WkVBjfXIT3A03wm4G0HYO xMUAzMUO0lBO9 aD3ywXpjaxyamHWqaIyua eRqfOoaVZgmAQzkB981WL RnwAxbViTJKhh2E1SiCsh 7CJCfcFklII3s mYMfYHkhJt8ypKzxaGesX P6nKVOdezzgq490NgTuj2 miOQVevNQkPSsyLCF8V93 gi9L4FXWsCGKp KXI0cHS1oJ8ryIwpdzmwc GVmdDsgdmVydGljYWwtYW xlT879WEZhpNsiHl1ARoc 5Z1YcBok3TDZd xOlwFB2kaJGlOYfrQq7zk PuuvPuuXY4jSYArudacr9 75WfXjx8goHOAayDNoKHt rSKF0D59un2L6 YQWcLHAoUZP0yYA4nH9tr GlnbjogbGVmdDsgdmVydG xkTOfhEYpyC189GNWdxUp nPlBheWVyOjwv dGQ+TA00ve34S6GzBrshR bx1KVLdJIB3rMD6xR9xVG OtBWwvq0M7gIB4A2NggrF qha9lt8scAJUr ZTog (more content not included)... Normal [facility] POCT PT/INRon 04-05-2022 POCT INR 1.3 High .7-1.2 [facility] Comment on above: Performed By: #### 2 [id number] #### [facility] [address] [place] [address] POCT PT 15.0 second(s) Normal 8.0-15.0 [facility] Comment on above: Performed By: #### 2 [id number] #### [facility] [address] [place] [address] POCT INR Error Invalid Interpretation Code .7-1.2 [facility] Comment on above: Performed By: #### 1 [id number] #### [facility] [address] [place] [address] POCT PT Strip Error Invalid Interpretation Code 8.0-15.0 [facility] Comment on above: Performed By: #### 1 [id number], [id number], [id number] #### [facility] [address] [place] [address] POCT INR Error Invalid Interpretation Code .7-1.2 [facility] Comment on above: Performed By: #### 1 [id number], [id number], [id number] #### [facility] [address] [facility] [place] [address] POCT PT Strip Error Invalid Interpretation Code 8.0-15.0 [facility] Comment on above: Performed By: #### 1 [id number], [id number], [id number], [id number] #### [facility] [address] [place] [address] Physician Orderon 04-01-2022 Physician Order [id number]# 1.00CD:127 Normal [facility] Consent for Treatmenton Consent for Treatment [id number]#1 .00CD:127 Normal [facility] POCT PT/INRon 03-29-2022 POCT INR 1.3 High .7-1.2 [facility] Comment on above: Performed By: #### 2 [id number] #### [facility] [address] [place] [address] POCT PT 14.2 second(s) Normal 8.0-15.0 [facility] Comment on above: Performed By: #### 2 [id number] #### [facility] [address] [place] [address] [facility] echo transthoracicon [facility] echo transthoracic [facility] [place] [address] Echocardiogram Signed Patient: Fredrick Stroud MR#: [id number] 427 : 1950 Acct:[id number] Age/Sex: 71 / M ADM Date: 03/27/22 Loc: Room: Type: 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 SOB. HTN. Copies to: LUCY Hankins MD, [facility] BSA: 2.2 m2 BP: 125/82 mmHg HR: [...] mmHg Transcribed By: SCV Performed At: 03/27/22 5409 Signed By: Love Gaviria MD, [facility] 03/27/22 1557 [facility] Free T4 (Free Thyroxine)on 0 03-27-2022 Free T4 [Mass/Vol] 1.01 ng/dL Normal 0.61-1.12 [facility] Comment on above: Order Comment: Reaso n for Exam Atrial fibrillation;Essential hypertension Performed By: #### C BC, CMP, HS TROP, BNP #### [facility] [address] TSH DL <= 0.005 mIU/L QnOrde red By: Sejal Link on 03-27-2022 TSH Qn 2.57 m[IU]/L 0.45-5.33 [facility] Thyroid Stimulating Hormoneo n 03-27-2022 TSH Qn 2.57 m[IU]/L Normal 0.45-5.33 [facility] Comment on above: Order Comment: Reaso n for Exam Atrial fibrillation;Essential hypertension Result Comment: PERF ORMED BY: [place] [address] PATHOLOGIST LENS ENGRAVER EYAD HOWARD M.D. Performed By: #### C BC, CMP, HS TROP, BNP #### [facility] [address] [place] [address] Thyroxine (T4) free [Mass/vo lume] in Serum or PlasmaOrdered By: Sejal Link on 03-27-2022 Free T4 [Mass/Vol] 1.01 ng/dL 0.61-1.12 [facility] Triiodothyronine (T3) Freeon 03-27-2022 Triiodothyronine (T3) Free 3.17 pg/mL Normal 2.50-3.90 [facility] Comment on above: Order Comment: Reaso n for Exam Atrial fibrillation;Essential hypertension Result Comment: PERF ORMED BY: [place] [address] PATHOLOGIST LENS ENGRAVER EYAD HOWARD M.D. Performed By: #### C BC, CMP, HS TROP, BNP #### [facility] [address] [place] [address] [place] Triiodothyronine (T3) Free [ Mass/volume] in Serum or PlasmaOrdered By: Sejal Link on 03-27-2022 Free T3 [Mass/Vol] 3.17 pg/mL 2.50-3.90 [facility] Office Visit (Cardiology)on 03-21-2022 Follow-up visit Diagnoses/Problems [...] Goal 2.0-3.0. Patient would like managed with [facility] Coumadin clinic Follow up in 2 months [...] which include rate control with anticoagulation versus shinto of maintenance of sinus rhythm. After discussing [...] Signs Recorded: 21Mar2022 02:26PM Heart Rate67, Apical Cyfmjvdt003, RUE, Mzpsgdh836, LUE, Sitting Kixrhkjyt14, RUE, Bwlitwf91, LUE, Sitting He (more content not included)... Normal [facility] Albumin [Mass/volume] in Ser um or PlasmaOrdered By: Yo Blood on 03-11-2022 Albumin [Mass/Vol] 4.1 g/dL 3.2-5.5 [facility] B-Type Natriuretic Peptideon 03-11-2022 Natriuretic peptide B (Bld) [Mass/Vol] 101.0 pg/mL High 5-100 [facility] Comment on above: Result Comment: PERF ORMED BY: [place] [address] PATHOLOGIST LENS ENGRAVER EYAD HOWARD M.D. Performed By: #### C BC, CMP, HS TROP, BNP #### [address] Basophils Auto (Bld) [#/Vol] Ordered By: Yo Blood on 03-11-2022 Basophils (Bld) [#/Vol] 0.0 10*3/uL 0.0-0.2 [facility] Basophils/100 WBC Auto (Bld) Ordered By: Yo Blood on 03-11-2022 Basophils/100 WBC (Bld) 1.1 % . [facility] COVID-19 Antigenon 3 COVID-19 Antigen Healthcare Worker?: [...] developed and its performance characteristic determined by [employer] and validated at [facility]. This test has not been FDA cleared [...] for SARS Antigen by OLY PERFORMED BY: [place] [address] PATHOLOGIST LENS ENGRAVER EYAD HOWARD M.D. Normal [facility] Comment on above: Performed By: #### C OVID-19 GERTRUDE, SOFIANEG #### [address] COVID-19 SOFIAOrdered By: Buster Blood on 03-11-2022 SARS-CoV+SARS-CoV-2 (COVID-19) Ag IA.rapid Ql (Resp) Negative Negative [facility] Comment on above: This is a duplicate Gertrude SARS Antigen (OLY) result to be used for statistical tracking purpose only. Complete Blood Count Auto Di ffon 03-11-2022 Basophils (Bld) [#/Vol] 0.0 10*3/uL Normal 0.0-0.2 [facility] Comment on above: Result Comment: PERF ORMED BY: [place] [address] PATHOLOGIST LENS ENGRAVER EYAD HOWARD M.D. Performed By: #### C BC, CMP, HS TROP, BNP #### [facility] [address] [place] [address] [place] Basophils/100 WBC (Bld) 1.1 % Normal . [facility] Comment on above: Performed By: #### C BC, CMP, HS TROP, BNP #### [facility] [address] Eosinophils (Bld) [#/Vol] 0.0 10*3/uL Normal 0.0-0.45 [facility] Comment on above: Performed By: #### C BC, CMP, HS TROP, BNP #### [address] Eosinophils/100 WBC (Bld) 0.4 % Normal . [facility] Comment on above: Performed By: #### C BC, CMP, HS TROP, BNP #### [address] Erythrocyte distribution width (RBC) [Ratio] 14.0 % Normal 12.0-14.8 [facility] Comment on above: Performed By: #### C BC, CMP, HS TROP, BNP #### [address] Hematocrit (Bld) [Volume fraction] 46.7 % Normal 38.8-50.0 [facility] Comment on above: Performed By: #### C BC, CMP, HS TROP, BNP #### [address] Hemoglobin (Bld) [Mass/Vol] 15.3 g/dL Normal 13.0-17.0 [facility] Comment on above: Performed By: #### C BC, CMP, HS TROP, BNP #### [place] [address] [place] Lymphocytes (Bld) [#/Vol] 1.1 10*3/uL Normal 1.00-4.8 [facility] Comment on above: Performed By: #### C BC, CMP, HS TROP, BNP #### [place] [address] [place] Lymphocytes/100 WBC (Bld) 29.0 % Normal . [facility] Comment on above: Performed By: #### C BC, CMP, HS TROP, BNP #### [address] MCH (RBC) [Entitic mass] 29.4 pg Normal 27.5-35.2 [facility] Comment on above: Performed By: #### C BC, CMP, HS TROP, BNP #### [address] MCV (RBC) [Entitic vol] 89.6 fL Normal 83.5-101 [facility] Comment on above: Performed By: #### C BC, CMP, HS TROP, BNP #### [address] Mean Corpuscular HGB Conc 32.8 g/dL Normal 32.5-35.6 [facility] Comment on above: Performed By: #### C BC, CMP, HS TROP, BNP #### [address] Monocytes (Bld) [#/Vol] 0.8 10*3/uL Normal 0.0-0.8 [facility] Comment on above: Performed By: #### C BC, CMP, HS TROP, BNP #### [address] Monocytes/100 WBC (Bld) 20.67 % High 0.00-20.00 [facility] Comment on above: Result Comment: For adults in ED, MDW > 20.0 may be associated with a higher risk of sepsis during the first 12 hrs of hospital admission Performed By: #### C BC, CMP, HS TROP, BNP #### [address] Monocytes/100 WBC (Bld) 20.9 % Normal . [facility] Comment on above: Performed By: #### C BC, CMP, HS TROP, BNP #### [address] Neutrophils (Bld) [#/Vol] 1.8 10*3/uL Normal 1.8-7.7 [facility] Comment on above: Performed By: #### C BC, CMP, HS TROP, BNP #### [address] Neutrophils/100 WBC (Bld) 48.6 % Normal . [facility] Comment on above: Performed By: #### C BC, CMP, HS TROP, BNP #### [address] NRBC% 0.2 /100{WBC} Normal 0-0.5 [facility] Comment on above: Performed By: #### C BC, CMP, HS TROP, BNP #### [address] Platelet mean volume (Bld) [Entitic vol] 8.5 fL Normal 6.6-10.1 [facility] Comment on above: Performed By: #### C BC, CMP, HS TROP, BNP #### [address] Platelets (Bld) [#/Vol] 197 10*3/uL Normal 150-450 [facility] Comment on above: Performed By: #### C BC, CMP, HS TROP, BNP #### [address] RBC (Bld) [#/Vol] 5.21 10*6/uL Normal 3.90-5.60 [facility] Comment on above: Performed By: #### C BC, CMP, HS TROP, BNP #### [address] WBC (Bld) [#/Vol] 3.7 10*3/uL Low 4.1-10.5 [facility] Comment on above: Performed By: #### C BC, CMP, HS TROP, BNP #### [address] Comprehensive Metabolic Pane rigo 03-11-2022 Albumin [Mass/Vol] 4.1 g/dL Normal 3.2-5.5 [facility] Comment on above: Performed By: #### C BC, CMP, HS TROP, BNP #### [facility] [address] [place] [address] [place] Albumin/Globulin [Mass ratio] 1.5 {ratio} Normal [facility] Comment on above: Performed By: #### C BC, CMP, HS TROP, BNP #### [facility] [address] ALP [Catalytic activity/Vol] 79 U/L Normal 32-92 [facility] Comment on above: Performed By: #### C BC, CMP, HS TROP, BNP #### [facility] [address] ALT [Catalytic activity/Vol] 23 U/L Normal 10-60 [facility] Comment on above: Performed By: #### C BC, CMP, HS TROP, BNP #### [facility] [address] Anion gap [Moles/Vol] 13.7 mmol/L Normal 6.0-15.0 [facility] Comment on above: Performed By: #### C BC, CMP, HS TROP, BNP #### [facility] [address] [place] [address] [place] AST [Catalytic activity/Vol] 32 U/L Normal 10-42 [facility] Comment on above: Performed By: #### C BC, CMP, HS TROP, BNP #### [facility] [address] [place] [address] [place] Bilirubin [Mass/Vol] 0.6 mg/dL Normal 0.3-1.2 [facility] Comment on above: Performed By: #### C BC, CMP, HS TROP, BNP #### [facility] [address] [place] [address] [place] Calcium [Mass/Vol] 9.2 mg/dL Normal 8.2-10.2 [facility] Comment on above: Performed By: #### C BC, CMP, HS TROP, BNP #### [facility] [address] [place] [id number] [place] Chloride [Moles/Vol] 98 mmol/L Normal 95-114 [facility] Comment on above: Performed By: #### C BC, CMP, HS TROP, BNP #### [facility] [address] CO2 [Moles/Vol] 29.0 mmol/L Normal 22.0-30.0 [facility] Comment on above: Performed By: #### C BC, CMP, HS TROP, BNP #### [facility] [address] Creatinine [Mass/Vol] 0.86 mg/dL Normal 0.64-1.27 [facility] Comment on above: Performed By: #### C BC, CMP, HS TROP, BNP #### [address] Creatinine Clr Calc Pharmacy 91.63 [facility] Comment on above: Result Comment: PERF ORMED BY: [place] [address] PATHOLOGIST LENS ENGRAVER EYAD HOWARD M.D. Performed By: #### C BC, CMP, HS TROP, BNP #### [address] Estimated GFR ( Jessica > 60 [facility] Comment on above: Result Comment: GFR estimated reference range: According to KDOQI guidelines, <60 ml/min/1.73m2 is sufficient to diagnose a patient with chronic kidney disease. Performed By: #### C BC, CMP, HS TROP, BNP #### [address] Estimated GFR (Non- Am > 60 [facility] Comment on above: Performed By: #### C BC, CMP, HS TROP, BNP #### [place] [address] [place] Globulin (S) [Mass/Vol] 2.8 g/dL [facility] Comment on above: Performed By: #### C BC, CMP, HS TROP, BNP #### [facility] [address] Glucose [Mass/Vol] 91 mg/dL Normal 70-100 [facility] Comment on above: Result Comment: Energy Glucose Reference Range is dependent on time and content of last meal. Glucose of more than 200 mg/dL in a nonstressed, ambulatory subject supports the diagnosis of Diabetes Mellitus. ADA recommended reference range Performed By: #### C BC, CMP, HS TROP, BNP #### [facility] [address] [place] [address] [place] Potassium [Moles/Vol] 3.7 mmol/L Normal 3.5-5.1 [facility] Comment on above: Performed By: #### C BC, CMP, HS TROP, BNP #### [facility] [address] [place] [address] [place] Protein [Mass/Vol] 6.9 g/dL Normal 6.1-7.9 [facility] Comment on above: Performed By: #### C BC, CMP, HS TROP, BNP #### [facility] [address] [place] [address] [place] Sodium [Moles/Vol] 137 mmol/L Normal 136-146 [facility] Comment on above: Performed By: #### C BC, CMP, HS TROP, BNP #### [facility] [address] [place] [id number] [place] Urea nitrogen [Mass/Vol] 10 mg/dL Normal 9-23 [facility] Comment on above: Performed By: #### C BC, CMP, HS TROP, BNP #### [facility] [address] [place] [address] [place] Creatinine and Glomerular fi ltration rate.predicted panel (S/P/Bld)Ordered By: Yo Blood on 03-11-2022 Creatinine [Mass/Vol] 0.86 mg/dL 0.64-1.27 [facility] ECG 12 lead ECGon 03-11-2022 ECG 12 lead ECG [facility] [address] [place] [address] [place] [address] Electrocardiograph Report Signed Patient: Fredrick Stroud MR#: [id number] 427 : 1950 Acct:[id number] Age/Sex: 71 / M ADM Date: 03/11/22 Loc: ER Room: Type: [facility] ER Attending Dr: Ordering Provider: Yo [...] voltage QRS Confirmed by Yo BLOOD DO ([id number]) on 03/11/2022 9:03:33 PM Referred By: Electronically Signed By:Yo BLOOD DO Transcribed By: MUS Signed By Yo Blood DO 0 03/11/222102 [facility] ECG 12 lead ECG [facility] [address] [place] [address] [place] [address] Electrocardiograph Report Signed Patient: Fredrick Stroud MR#: [id number] 427 : 1950 Acct:[id number] Age/Sex: 71 / M ADM Date: 03/11/22 Loc: ER Room: Type: [facility] ER Attending Dr: Ordering Provider: Yo [...] voltage QRS Confirmed by Yo BLOOD DO ([id number]) on 03/11/2022 7:52:28 PM Referred By: Electronically Signed By:Yo BLOOD DO Transcribed By: MUS Signed By Yo Blood DO 0 03/11/221951 [facility] Eosinophils Auto (Bld) [#/Vo l]Ordered By: Yo Blood on 03-11-2022 Eosinophils (Bld) [#/Vol] 0.0 10*3/uL 0.0-0.45 [facility] Eosinophils/100 WBC Auto (Bl d)Ordered By: Yo Blood on 03-11-2022 Eosinophils/100 WBC (Bld) 0.4 % . [facility] Erythrocyte distribution wid th Auto (RBC) [Ratio]Ordered By: Yo Blood on 03-11-2022 Erythrocyte distribution width (RBC) [Ratio] 14.0 % 12.0-14.8 [facility] Estimated glomerular filtrat ion rate (GFR) non- AmericanOrdered By: Yo Blood on 03-11-2022 GFR/1.73 sq M.predicted among non-blacks MDRD (S/P/Bld) [Vol rate/Area] > 60 mL/Min [facility] Globulin Calc (S) [Mass/Vol] Ordered By: Yo Blood on 03-11-2022 Globulin (S) [Mass/Vol] 2.8 g/dL [facility] Hematocrit Auto (Bld) [Volum e fraction]Ordered By: Yo Blood on 03-11-2022 Hematocrit (Bld) [Volume fraction] 46.7 % 38.8-50.0 [facility] Hemoglobin [Mass/volume] in BloodOrdered By: Yo Blood on 03-11-2022 Hemoglobin (Bld) [Mass/Vol] 15.3 g/dL 13.0-17.0 [facility] Laboratory - Chemistry and C hemistry - challengeOrdered By: Yo Blood on 03-11-2022 Natriuretic peptide B (Bld) [Mass/Vol] 101.0 pg/mL 5-100 [facility] Leukocytes [#/volume] correc lvad for nucleated erythrocytes in Blood by Automated counOrdered By: Yo Blood on 03-11-2022 WBC corrected for nucl RBC Auto (Bld) [#/Vol] 3.7 10*3/uL 4.1-10.5 [facility] Lymphocytes Auto (Bld) [#/Vo l]Ordered By: Yo Blood on 03-11-2022 Lymphocytes (Bld) [#/Vol] 1.1 10*3/uL 1.00-4.8 [facility] Lymphocytes/100 WBC Auto (Bl d)Ordered By: Yo Blood on 03-11-2022 Lymphocytes/100 WBC (Bld) 29.0 % . [facility] MCH Auto (RBC) [Entitic mass ]Ordered By: Yo Blood on 03-11-2022 MCH (RBC) [Entitic mass] 29.4 pg 27.5-35.2 [facility] MCHC Auto (RBC) [Mass/Vol]Or dered By: Yo Blood on 03-11-2022 MCHC (RBC) [Mass/Vol] 32.8 g/dL 32.5-35.6 [facility] MCV Auto (RBC) [Entitic vol] Ordered By: Yo Blood on 03-11-2022 MCV (RBC) [Entitic vol] 89.6 fL 83.5-101 [facility] Monocyte distribution width [Entitic volume] in Blood by AutomatedOrdered By: Yo Blood on 03-11-2022 Monocyte distribution width Auto (Bld) [Entitic vol] 20.67 % 0.00-20.00 [facility] Comment on above: For adults in ED, MD W > 20.0 may be associated with a higher risk of sepsis during the first 12 hrs of hospital admission Monocytes Auto (Bld) [#/Vol] Ordered By: Yo Blood on 03-11-2022 Monocytes (Bld) [#/Vol] 0.8 10*3/uL 0.0-0.8 [facility] Monocytes/100 WBC Auto (Bld) Ordered By: Yo Blood on 03-11-2022 Monocytes/100 WBC (Bld) 20.9 % . [facility] Neutrophils Auto (Bld) [#/Vo l]Ordered By: Yo Blood on 03-11-2022 Neutrophils (Bld) [#/Vol] 1.8 10*3/uL 1.8-7.7 [facility] Neutrophils/100 WBC Auto (Bl d)Ordered By: Yo Blood on 03-11-2022 Neutrophils/100 WBC (Bld) 48.6 % . [facility] [facility] No Panel InformationOrdered By: Yo Blood on 03-11-2022 SARS Antigen (LFIA) [facility] Estimated GFR () > 60 mL/Min [facility] Comment on above: GFR estimated refere nce range: According to KDOQI guidelines, <60 ml/min/1.73m2 is sufficient to diagnose a patient with chronic kidney disease. Pharmacy Creatinine Clearance (Chem 91.63 [facility] Nucleated erythrocytes [Pres ence] in Blood by Automated countOrdered By: Yo Blood on 03-11-2022 Nucleated RBC Auto Ql (Bld) 0.2 /100{WBC} 0-0.5 [facility] Platelet mean volume Auto (B ld) [Entitic vol]Ordered By: Yo Blood on 03-11-2022 Platelet mean volume (Bld) [Entitic vol] 8.5 fL 6.6-10.1 [facility] Platelets Auto (Bld) [#/Vol] Ordered By: Yo Blood on 03-11-2022 Platelets (Bld) [#/Vol] 197 10*3/uL 150-450 [facility] Protein [Mass/volume] in Ser um or PlasmaOrdered By: Yo Blood on 03-11-2022 Protein [Mass/Vol] 6.9 g/dL 6.1-7.9 [facility] RBC Auto (Bld) [#/Vol]Ordere d By: Yo Blood on 03-11-2022 RBC (Bld) [#/Vol] 5.21 10*6/uL 3.90-5.60 [facility] Serum or plasma alanine sullivan otransferase measurement without P-5'-P (enzymatic activiOrdered By: Yo Blood on 03-11-2022 ALT No additional P-5'-P [Catalytic activity/Vol] 23 U/L 10-60 [facility] Serum or plasma albumin/glob ulin mass ratioOrdered By: Yo Blood on 03-11-2022 Albumin/Globulin [Mass ratio] 1.5 {ratio} [facility] Serum or plasma alkaline faviola sphatase measurement (enzymatic activity/volume)Ordered By: oY Blood on 03-11-2022 ALP [Catalytic activity/Vol] 79 U/L 32-92 [facility] Serum or plasma anion gap de terminationOrdered By: Yo Blood on 03-11-2022 Anion gap [Moles/Vol] 13.7 mmol/L 6.0-15.0 [facility] Serum or plasma aspartate am inotransferase measurement (enzymatic activity/volume)Ordered By: Yo Blood on 03-11-2022 AST [Catalytic activity/Vol] 32 U/L 10-42 [facility] Serum or plasma calcium echo urement (mass/volume)Ordered By: Yo Blood on 03-11-2022 Calcium [Mass/Vol] 9.2 mg/dL 8.2-10.2 [facility] Serum or plasma chloride tessie surement (moles/volume)Ordered By: Yo Blood on 03-11-2022 Chloride [Moles/Vol] 98 mmol/L 95-114 [facility] Serum or plasma glucose echo urement (mass/volume)Ordered By: Yo Blood on 03-11-2022 Glucose [Mass/Vol] 91 mg/dL 70-100 [facility] Comment on above: ADA recommended refe rence rangeRandom Glucose Reference Range is dependent on time and content of last meal. Glucose of more than 200 mg/dL in a nonstressed, ambulatory subject supports the diagnosis of Diabetes Mellitus. Serum or plasma potassium me asurement (moles/volume)Ordered By: Yo Blood on 03-11-2022 Potassium [Moles/Vol] 3.7 mmol/L 3.5-5.1 [facility] Serum or plasma sodium measu rement (moles/volume)Ordered By: Yo Blood on 03-11-2022 Sodium [Moles/Vol] 137 mmol/L 136-146 [facility] Serum or plasma total biliru bin measurement (mass/volume)Ordered By: Yo Blood on 03-11-2022 Bilirubin [Mass/Vol] 0.6 mg/dL 0.3-1.2 [facility] Serum or plasma total carbon dioxide measurement (moles/volume)Ordered By: Yo Blood on 03-11-2022 CO2 [Moles/Vol] 29.0 mmol/L 22.0-30.0 [facility] Serum or plasma urea nitroge n measurement (mass/volume)Ordered By: Yo Blood on 03-11-2022 Urea nitrogen [Mass/Vol] 10 mg/dL 9-23 [facility] Gertrude Ag Negativeon 03-11-19 Gertrude Ag Negative Negative Normal Negative [facility] Comment on above: Result Comment: This is a duplicate Gertrude SARS Antigen (OLY) result to be used for statistical tracking purpose only. PERFORMED BY: [place] [address] PATHOLOGIST LENS ENGRAVER EYAD HOWARD M.D. Performed By: #### C OVID-19 GERTRUDE, SOFIANEG #### [place] [id number] [facility] Troponin I High Sensitivityo n 03-11-2022 Troponin I High Sensitivity 9 pg/mL Normal 0-20 [facility] Comment on above: Result Comment: PERF ORMED BY: [place] [address] PATHOLOGIST LENS ENGRAVER EYAD HOWARD M.D. Performed By: #### C BC, CMP, HS TROP, BNP #### [address] [address] [facility] Troponin I.cardiac [Mass/vol ume] in Serum or Plasma by High sensitivity methodOrdered By: Yo Blood on 03-11-2022 Troponin I.cardiac High sensitivity method [Mass/Vol] 9 pg/mL 0-20 [facility] WBC Auto (Bld) [#/Vol]Ordere d By: Yo Blood on 03-11-2022 WBC (Bld) [#/Vol] 3.7 10*3/uL 4.1-10.5 [facility] XR chest 2V*on 03-11-2022 XR chest 2V* [facility] Main [place] [address] [place], [place] [id number] XRay Report Signed Patient: Fredrick Stroud MR#: [id number] 427 : 1950 Acct:[id number] Age/Sex: 71 / M ADM Date: 03/11/22 [...] 03/11/22 1339 Signed By: 03/11/22 1342 Normal [facility] XR hip LT min 2V(w/wo pelvis )*on 09-26-2021 XR hip LT min 2V(w/wo pelvis)* [facility] [place] [address] [place] [address] XRay Report Signed Patient: Fredrick Stroud MR#: [id number] 427 : 1950 Acct:[id number] Age/Sex: 70 / M ADM Date: 09/26/21 Loc: [facility] Room: Type: [facility] Attending Dr: Shahriar Dhillon II, MD Copies [...] 1526 Signed By: 09/26/21 1527 [facility] XR hip LT min 2V(w/wo pelvis )*on 08-15-2021 XR hip LT min 2V(w/wo pelvis)* [address] [address] XRay Report Signed Patient: Fredrick Stroud MR#: [id number] 427 : 1950 Acct:[id number] Age/Sex: 70 / M ADM Date: 08/15/21 Loc: [facility] Room: Type: [facility] Attending Dr: Shahriar Dhillon II, MD Copies [...] 1439 Signed By: 08/15/21 1440 [facility] XR hip LT min 2V(w/wo pelvis)* [facility] [employer] Other XR hip LT min 2V(w/wo pelvis)* [facility] [employer] Other XR hip LT min 2V(w/wo pelvis)* [address] [place] [address] [employer] Other XR hip LT min 2V(w/wo pelvis)* [place] [address] [employer] Other XR hip LT min 2V(w/wo pelvis)* XRay Report [facility] Other XR hip LT min 2V(w/wo pelvis)* Signed [facility] Other XR hip LT min 2V(w/wo pelvis)* Patient: Fredrick Stroud MR#: [id number] [facility] Other XR hip LT min 2V(w/wo pelvis)* 427 [employer] Other XR hip LT min 2V(w/wo pelvis)* : 1950 Acct:[id number] [employer] Other XR hip LT min 2V(w/wo pelvis)* Age/Sex: 70 / M ADM Date: 08/15/21 [facility] Other XR hip LT min 2V(w/wo pelvis)* Loc: [facility] Room: Type: [facility] [employer] Other XR hip LT min 2V(w/wo pelvis)* Attending Dr: Shahriar Dhillon II, MD [facility] Other XR hip LT min 2V(w/wo pelvis)* Copies to: Shahriar Dhillon MD [employer] Other XR hip LT min 2V(w/wo pelvis)* Ordering Provider: Shahriar Dhillon MD [facility] Other XR hip LT min 2V(w/wo pelvis)* Date of Service: 08/15/21 [facility] Other XR hip LT min 2V(w/wo pelvis)* XR/XR hip LT min 2V(w/wo pelvis)*: Aftercare following joint replacement [facility] Other XR hip LT min 2V(w/wo pelvis)* surgery [facility] Other XR hip LT min 2V(w/wo pelvis)* LEFT HIP - 2 views: 1 view pelvis [facility] Other XR hip LT min 2V(w/wo pelvis)* CLINICAL HISTORY: Follow-up left GEOVANI [facility] Other XR hip LT min 2V(w/wo pelvis)* COMPARISON: Hip series 07/02/2021 [facility] Other XR hip LT min 2V(w/wo pelvis)* FINDINGS: 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 Prostate radiation [employer] Other XR hip LT min 2V(w/wo pelvis)* seeds. Mild degenerative changes right hip. [facility] Other XR hip LT min 2V(w/wo pelvis)* XR/XR hip LT min 2V(w/wo pelvis)* [facility] Other XR hip LT min 2V(w/wo pelvis)* IMPRESSION: [facility] Other XR hip LT min 2V(w/wo pelvis)* NO EVIDENCE OF HARDWARE COMPLICATION. [facility] Other XR hip LT min 2V(w/wo pelvis)* Impression dictated by: Dandy Stevenson Jr., D.ODre08/15/2021 2:40 PM [facility] Other XR hip LT min 2V(w/wo pelvis)* Dictation Location: [facility]13 [facility] Other XR hip LT min 2V(w/wo pelvis)* Transcribed By: PWS 08/15/21 1440 [facility] Other XR hip LT min 2V(w/wo pelvis)* Dictated By: Dandy Stevenson Jr, DO 08/15/21 1439 [facility] Other XR hip LT min 2V(w/wo pelvis)* Signed By: [facility] Other XR hip LT min 2V(w/wo pelvis)* 08/15/21 1440 [facility] Other Basic Metabolic Panelon 06-24 Calcium [Mass/Vol] 8.6 mg/dL Normal 8.2-10.2 [facility] Comment on above: Performed By: #### C BC, BMP #### [facility] [address] [place] [address] [place] Chloride [Moles/Vol] 102 mmol/L Normal 95-114 [facility] Comment on above: Performed By: #### C BC, BMP #### [facility] [address] CO2 [Moles/Vol] 25.5 mmol/L Normal 22.0-30.0 [facility] Comment on above: Performed By: #### C BC, BMP #### [facility] [address] Creatinine [Mass/Vol] 0.96 mg/dL Normal 0.64-1.27 [facility] Comment on above: Performed By: #### C BC, BMP #### [facility] [address] [place] [address] [place] Creatinine Clr Calc Pharmacy 81.73 [facility] Comment on above: Result Comment: PERF ORMED BY: [place] [address] PATHOLOGIST LENS ENGRAVER EYAD HOWARD M.D. Performed By: #### C BC, BMP #### [address] Estimated GFR ( Jessica > 60 [facility] Comment on above: Result Comment: GFR estimated reference range: According to KDOQI guidelines, <60 ml/min/1.73m2 is sufficient to diagnose a patient with chronic kidney disease. Performed By: #### C BC, BMP #### [place] [address] [place] Estimated GFR (Non- Am > 60 [facility] Comment on above: Performed By: #### C BC, BMP #### [address] Glucose [Mass/Vol] 167 mg/dL High 70-100 [facility] Comment on above: Result Comment: [facility] Glucose Reference Range is dependent on time and content of last meal. Glucose of more than 200 mg/dL in a nonstressed, ambulatory subject supports the diagnosis of Diabetes Mellitus. ADA recommended reference range Performed By: #### C BC, BMP #### [address] Potassium [Moles/Vol] 4.4 mmol/L Normal 3.5-5.1 [facility] Comment on above: Performed By: #### C BC, BMP #### [address] Sodium [Moles/Vol] 135 mmol/L Low 136-146 [facility] Comment on above: Performed By: #### C BC, BMP #### [address] Urea nitrogen [Mass/Vol] 18 mg/dL Normal 9-23 [facility] Comment on above: Performed By: #### C BC, BMP #### [address] Complete Blood Count Auto Di ffon 07-03-2021 Basophils (Bld) [#/Vol] 0.0 10*3/uL Normal 0.0-0.2 [facility] Comment on above: Result Comment: PERF ORMED BY: [place] [address] PATHOLOGIST LENS ENGRAVER EYAD HOWARD M.D. Performed By: #### C BC, BMP #### [address] Basophils/100 WBC (Bld) 0.3 % Normal . [facility] Comment on above: Performed By: #### C BC, BMP #### [address] Eosinophils (Bld) [#/Vol] 0.0 10*3/uL Normal 0.0-0.45 [facility] Comment on above: Performed By: #### C BC, BMP #### [facility] [address] Eosinophils/100 WBC (Bld) 0.0 % Normal . [facility] Comment on above: Performed By: #### C BC, BMP #### [facility] [address] Erythrocyte distribution width (RBC) [Ratio] 14.2 % Normal 12.0-14.8 [facility] Comment on above: Performed By: #### C BC, BMP #### [address] Hematocrit (Bld) [Volume fraction] 32.9 % Low 38.8-50.0 [facility] Comment on above: Performed By: #### C BC, BMP #### [address] Hemoglobin (Bld) [Mass/Vol] 11.2 g/dL Low 13.0-17.0 [facility] Comment on above: Performed By: #### C BC, BMP #### [address] Lymphocytes (Bld) [#/Vol] 0.6 10*3/uL Low 1.00-4.8 [facility] Comment on above: Performed By: #### C BC, BMP #### [place] [address] [place] Lymphocytes/100 WBC (Bld) 4.7 % Normal . [facility] Comment on above: Performed By: #### C BC, BMP #### [address] MCH (RBC) [Entitic mass] 30.1 pg Normal 27.5-35.2 [facility] Comment on above: Performed By: #### C BC, BMP #### [address] MCV (RBC) [Entitic vol] 88.7 fL Normal 83.5-101 [facility] Comment on above: Performed By: #### C BC, BMP #### [facility] [address] [place] [id number] [place] Mean Corpuscular HGB Conc 33.9 g/dL Normal 32.5-35.6 [facility] Comment on above: Performed By: #### C BC, BMP #### [facility] [address] [place] [address] [place] Monocytes (Bld) [#/Vol] 1.0 10*3/uL High 0.0-0.8 [facility] Comment on above: Performed By: #### C BC, BMP #### [facility] [address] [place] [address] [place] Monocytes/100 WBC (Bld) 8.3 % Normal . [facility] Comment on above: Performed By: #### C BC, BMP #### [facility] [address] [place] [address] [place] Neutrophils (Bld) [#/Vol] 10.9 10*3/uL High 1.8-7.7 [facility] Comment on above: Performed By: #### C BC, BMP #### [facility] [address] [place] [address] [place] Neutrophils/100 WBC (Bld) 86.7 % Normal . [facility] Comment on above: Performed By: #### C BC, BMP #### [facility] [address] [place] [id number] [place] Nucleated RBC/100 WBC (Bld) [Ratio] 0.0 % Normal 0-0.5 [facility] Comment on above: Performed By: #### C BC, BMP #### [facility] [address] [place] [id number] [place] Platelet mean volume (Bld) [Entitic vol] 8.4 fL Normal 6.6-10.1 [facility] Comment on above: Performed By: #### C BC, BMP #### [facility] [address] [place] [id number] [place] Platelets (Bld) [#/Vol] 210 10*3/uL Normal 150-450 [facility] Comment on above: Performed By: #### C BC, BMP #### [facility] [address] RBC (Bld) [#/Vol] 3.71 10*6/uL Low 3.90-5.60 [facility] Comment on above: Performed By: #### C BC, BMP #### [facility] [address] WBC (Bld) [#/Vol] 12.5 10*3/uL High 4.5-11.0 [facility] Comment on above: Performed By: #### C BC, BMP #### [facility] [address] ECG 12 lead ECGon 07-02-2021 ECG 12 lead ECG [facility] [place] [address] [place] [address] Electrocardiograph Report Signed Patient: Fredrick Stroud MR#: [id number] 427 : 1950 Acct:[id number] Age/Sex: 70 / M ADM Date: 07/02/21 Loc: [place] Room: Type: [facility] Attending Dr: Shahriar Dhillon II, [...] By Moreno Rosario DO 07/02 1306 Normal [facility] Rigo 07-02-2021 L - -------- Specimen: [id number] Received: 07/02/21 Status: LORETTA Solis Num: [id number] Spec Type: Surgical Subm Dr: Shahriar Dhillon MD Tissues: A Femoral Head - Other than Fracture (L HIP) Procedures: HE Stain, Gross/Micro L3, Decal -------- Patient Age/Sex Location Account Attending Physician -------- Fredrick Stroud 70/M MaryannN [id number] Shahriar Dhillon MD -------- SPEC NUM: [id number] RECD: 07/02/21 STATUS: LORETTA SOLIS NUM: [id number] MILY: 07/02/21- [facility] DR: Shahriar Dhillon MD ENTERED: 07/02/[address] [facility] [address]: SPEC TYPE: Surgical DEPT: S ORDERED: [...] bone fragments and scant soft tissue. A authorization representative section of bone, following formalin fixation and decalcification is submitted in cassette A 1. ([email or web address]) -------- Specimen: [id number] Received: 07/02/21 Status: LORETTA Solis Num: [id number] Spec Type: Surgical Subm Dr: Shahriar Dhillon MD Tissues: A Femoral Head - Other than Fracture (L HIP) Procedures: HE Stain, Gross/Micro L3, Decal -------- Patient: Igor Stroudpattie Leung [id number] (Continued) -------- Specimen: [id number] Received: 07/02/21 (Continued) Signed (signature on file) Kaycee Curry MD 07/04/21 1625 -------- Specimen: [id number] Received: 07/02/21 Status: KEITHKimberly Solis Num: [id number] Spec Type: Surgical Subm Dr: Shahriar Dhillon MD Tissues: A Femoral Head - Other than Fracture (L HIP) Procedures: HE Stain, Gross/Micro L3, Decal -------- Patient: JuanFredrick [id number] (Continued) -------- Specimen: [id number] Received: 07/02/21 (Continued) Microscopic Description One glass slide with H E stained material has been examined. The microscopic findings support the above pathologic diagnosis. CPT Codes 31832, 61606 -------- -------- Specimen: [id number] Received: 07/02/21 Status: KEITHKimberly Solis Num: [id number] Spec Type: Surgical Subm Dr: Shahriar Dhillon MD Tissues: A Femoral Head - Other than Fracture (L HIP) Procedures: HE Stain, Gross/Micro L3, Decal -------- Patient: Fredrick Stroud [id number] (Continued) -------- Signed (signature on file) Kaycee Curry MD 07/04/21 1625 [facility] XR hip LT 1Von 07-02-2021 XR hip LT [address]V [address] [address] XRay Report Signed Patient: Fredrick Stroud MR#: [id number] 427 : 1950 Acct:[id number] Age/Sex: 70 / M ADM Date: 07/02/21 Loc: [place] Room: Type: [facility] Attending Dr: Shahriar Dhillon II, MD [...] Stevenson Jr., DAdelaida07/02/2021 9:26 AM Dictation Location: [place] [address] Transcribed By: [facility] 07/02/21925 Dictated By: Dandy Stevenson Jr, DO 07/02/21922 Signed By: 07/02/21925 [facility] XR low pelvis w/LT x-table h ipon 07-02-2021 XR low pelvis w/LT x-table hip [address] [address] XRay Report Signed Patient: Fredrick Stroud MR#: [id number] 427 : 1950 Acct:[id number] Age/Sex: 70 / M ADM Date: 07/02/21 Loc: [place] Room: Type: [facility] Attending Dr: Shahriar Dhillon II, MD [...] M.D.07/02/2021 12:05 PM Dictation Location: [facility] Transcribed By: [facility] 07/02/21 1205 Dictated By: Ariana Tanner MD 07/02/21 1204 Signed By: 07/02/21 1205 Normal [facility] COVID[facility]19 [facility] SARS-CoV-2 (COVID-19) RNA FABI+probe Ql (Unsp spec) Negative Normal Negative [facility] Comment on above: Order Comment: 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 This test has not been FDA cleared [...] is terminated or revoked sooner. PERFORMED BY: [place] [address] PATHOLOGIST LENS ENGRAVER EYAD HOWARD M.D. Performed By: #### C BC, CMP, HS TROP, BNP #### [facility] [address] [place] [address] [facility] Basic Metabolic Panelon 05-26 Calcium [Mass/Vol] 9.4 mg/dL Normal 8.2-10.2 [facility] Comment on above: Result Comment: PERF ORMED BY: [place] [address] PATHOLOGIST LENS ENGRAVER EYAD HOWARD M.D. Performed By: #### C OVID-19 GERTRUDE, SOFIANEG #### [facility] [address] Chloride [Moles/Vol] 103 mmol/L Normal 95-114 [facility] Comment on above: Performed By: #### C OVID-19 GERTRUDE, SOFIANEG #### [facility] [address] [place], [place] [address] [facility] CO2 [Moles/Vol] 26.4 mmol/L Normal 22.0-30.0 [facility] Comment on above: Performed By: #### C OVID-19 GERTRUDE, SOFIANEG #### [facility] [address] [place] [address] [place] Creatinine [Mass/Vol] 0.89 mg/dL Normal 0.64-1.27 [facility] Comment on above: Performed By: #### C OVID-19 GERTRUDE, SOFIANEG #### [facility] [address] [place] [id number] [place] Estimated GFR ( Jessica > 60 Normal [facility] Comment on above: Result Comment: GFR estimated reference range: According to KDOQI guidelines, <60 ml/min/1.73m2 is sufficient to diagnose a patient with chronic kidney disease. Performed By: #### C OVID-19 GERTRUDE, SOFIANEG #### [facility] [address] Estimated GFR (Non- Am > 60 Normal [facility] Comment on above: Performed By: #### C OVID-19 GERTRUDE, SOFIANEG #### [facility] [address] [place] [address] [place] Glucose [Mass/Vol] 101 mg/dL High 70-100 [facility] Comment on above: Result Comment: [facility] Glucose Reference Range is dependent on time and content of last meal. Glucose of more than 200 mg/dL in a nonstressed, ambulatory subject supports the diagnosis of Diabetes Mellitus. ADA recommended reference range Performed By: #### C OVID-19 GERTRUDE, SOFIANEG #### [facility] [address] Potassium [Moles/Vol] 4.4 mmol/L Normal 3.5-5.1 [facility] Comment on above: Performed By: #### C OVID-19 GERTRUDE, SOFIANEG #### [facility] [address] [place] [address] [place] Sodium [Moles/Vol] 139 mmol/L Normal 136-146 [facility] Comment on above: Performed By: #### C OVID-19 GERTRUDE, SOFIANEG #### [facility] [address] [place] [address] [place] Urea nitrogen [Mass/Vol] 23 mg/dL Normal 9-23 [facility] Comment on above: Performed By: #### C OVID-19 GERTRUDE, SOFIANEG #### [facility] [address] Complete Blood Count Auto Di ffon 06-18-2021 Basophils (Bld) [#/Vol] 0.0 10*3/uL Normal 0.0-0.2 [facility] Comment on above: Result Comment: PERF ORMED BY: [place] [address] PATHOLOGIST LENS ENGRAVER EYAD HOWARD M.D. Performed By: #### C OVID-19 GERTRUDE, SOFIANEG #### [address] Basophils/100 WBC (Bld) 0.9 % Normal . [facility] Comment on above: Performed By: #### C OVID-19 GERTRUDE, SOFIANEG #### [address] Eosinophils (Bld) [#/Vol] 0.1 10*3/uL Normal 0.0-0.45 [facility] Comment on above: Performed By: #### C OVID-19 GERTRUDE, SOFIANEG #### [address] Eosinophils/100 WBC (Bld) 1.4 % Normal . [facility] Comment on above: Performed By: #### C OVID-19 GERTRUDE, SOFIANEG #### [address] Erythrocyte distribution width (RBC) [Ratio] 14.0 % Normal 12.0-14.8 [facility] Comment on above: Performed By: #### C OVID-19 GERTRUDE, SOFIANEG #### [address] Hematocrit (Bld) [Volume fraction] 41.8 % Normal 38.8-50.0 [facility] Comment on above: Performed By: #### C OVID-19 GERTRUDE, SOFIANEG #### [address] Hemoglobin (Bld) [Mass/Vol] 14.2 g/dL Normal 13.0-17.0 [facility] Comment on above: Performed By: #### C OVID-19 GERTRUDE, SOFIANEG #### [address] Lymphocytes (Bld) [#/Vol] 1.1 10*3/uL Normal 1.00-4.8 [facility] Comment on above: Performed By: #### C OVID-19 GERTRUDE, SOFIANEG #### [facility] [address] [place] [address] [place] Lymphocytes/100 WBC (Bld) 22.7 % Normal . [facility] Comment on above: Performed By: #### C OVID-19 GERTRUDE, SOFIANEG #### [facility] [address] MCH (RBC) [Entitic mass] 30.4 pg Normal 27.5-35.2 [facility] Comment on above: Performed By: #### C OVID-19 GERTRUDE, SOFIANEG #### [address] MCV (RBC) [Entitic vol] 89.7 fL Normal 83.5-101 [facility] Comment on above: Performed By: #### C OVID-19 GERTRUDE, SOFIANEG #### [address] Mean Corpuscular HGB Conc 33.9 g/dL Normal 32.5-35.6 [facility] Comment on above: Performed By: #### C OVID-19 GERTRUDE, SOFIANEG #### [place] [address] [place] Monocytes (Bld) [#/Vol] 0.5 10*3/uL Normal 0.0-0.8 [facility] Comment on above: Performed By: #### C OVID-19 GERTRUDE, SOFIANEG #### [facility] [address] [place] [address] [place] Monocytes/100 WBC (Bld) 11.2 % Normal . [facility] Comment on above: Performed By: #### C OVID-19 GERTRUDE, SOFIANEG #### [facility] [address] [place] [address] [place] Neutrophils (Bld) [#/Vol] 3.1 10*3/uL Normal 1.8-7.7 [facility] Comment on above: Performed By: #### C OVID-19 GERTRUDE, SOFIANEG #### [facility] [address] [place] [address] [place] Neutrophils/100 WBC (Bld) 63.8 % Normal . [facility] Comment on above: Performed By: #### C OVID-19 GERTRUDE, SOFIANEG #### [facility] [address] [place] [address] Nucleated RBC/100 WBC (Bld) [Ratio] 0.1 % Normal 0-0.5 [facility] Comment on above: Performed By: #### C OVID-19 GERTRUDE, SOFIANEG #### [address] Platelet mean volume (Bld) [Entitic vol] 8.2 fL Normal 6.6-10.1 [facility] Comment on above: Performed By: #### C OVID-19 GERTRUDE, SOFIANEG #### [address] Platelets (Bld) [#/Vol] 243 10*3/uL Normal 150-450 [facility] Comment on above: Performed By: #### C OVID-19 GERTRUDE, SOFIANEG #### [place] [address] [place] RBC (Bld) [#/Vol] 4.67 10*6/uL Normal 3.90-5.60 [facility] Comment on above: Performed By: #### C OVID-19 GERTRUDE, SOFIANEG #### [address] WBC (Bld) [#/Vol] 4.8 10*3/uL Normal 4.5-11.0 [facility] Comment on above: Performed By: #### C OVID-19 GERTRUDE, SOFIANEG #### [address] ECG 12 lead ECGon 06-18-2021 ECG 12 lead ECG [facility] [place] [address] [place] [address] Electrocardiograph Report Signed Patient: Fredrick Stroud MR#: [id number] : [id number] Acct:[id number] Age/Sex: 70 / M ADM Date: 06/18/21 Loc: PS Room: Type: DEP CLI Attending Dr: Shahriar Dhillon II, MD Ordering [...] was found Confirmed by WISAM TORRE MD ([facility]) on 06/19/2021 10:06:42 AM Referred By: RAMÓN DHILLON Electronically Signed By:WISAM TORRE MD Transcribed By: MUS Signed By Wisam Torre MD 0 06/19/21 1006 Normal [facility] Fructosamineon 06-18-2021 Fructosamine 217 umol/L Normal 0-285 [facility] Comment on above: Result Comment: Publ ished reference interval for apparently healthy subjects between age 20 and 60 is 205 - 285 umol/L and in a poorly controlled diabetic population is 228 - 563 umol/L with a mean of 396 umol/L. Performed at: [facility] [place] [id number] Night Custodian: Benton Caro PhD, Phone: [phone] PERFORMED BY: [place] [address] PATHOLOGIST LENS ENGRAVER EYAD HOWARD M.D. Performed By: #### C OVID-19 YAIR LOREDOEG #### [address] PST Type and Screenon 2021 ABO and Rh group Nom (Bld) Blood group O Rh(D) positive Normal [facility] Comment on above: Order Comment: Date of Surgery: [id number] Result Comment: PERF ORMED BY: [address] [address] PATHOLOGIST LENS ENGRAVER EYAD HOWARD M.D. Urinalysison 06-18-2021 Appearance (U) Clear Normal Clear [facility] Comment on above: Order Comment: Name Collection Type:: Clean-Voided Midstream Performed By: #### C BC, CMP, HS TROP, BNP #### [facility] [address] [place] [address] Bilirubin,Urine Negative Normal Negative [facility] Comment on above: Order Comment: Name Collection Type:: Clean-Voided Midstream Performed By: #### C BC, CMP, HS TROP, BNP #### [address] Color (U) Yellow Normal Yellow [facility] Comment on above: Order Comment: Name Collection Type:: Clean-Voided Midstream Performed By: #### C BC, CMP, HS TROP, BNP #### [facility] [address] [place] [address] Glucose Ql (U) Normal Normal Normal [facility] Comment on above: Order Comment: Name Collection Type:: Clean-Voided Midstream Performed By: #### C BC, CMP, HS TROP, BNP #### [facility] [address] [place] [address] [place] Ketones Ql (U) Negative Normal Negative [facility] Comment on above: Order Comment: Name Collection Type:: Clean-Voided Midstream Performed By: #### C BC, CMP, HS TROP, BNP #### [facility] [address] [place] [address] [place] Leukocyte esterase Test strip Ql (U) Negative Normal Negative [facility] Comment on above: Order Comment: Name Collection Type:: Clean-Voided Midstream Performed By: #### C BC, CMP, HS TROP, BNP #### [facility] [address] [place] [address] [place] Nitrite,Urine Negative Normal Negative [facility] Comment on above: Order Comment: Name Collection Type:: Clean-Voided Midstream Performed By: #### C BC, CMP, HS TROP, BNP #### [address] [place] [address] [place] Occult Blood,Urine Negative Normal Negative [facility] Comment on above: Order Comment: Name Collection Type:: Clean-Voided Midstream Result Comment: PERF ORMED BY: [place] [address] PATHOLOGIST LENS ENGRAVER EYAD HOWARD M.D. Performed By: #### C BC, CMP, HS TROP, BNP #### [address] pH (U) 7.5 [pH] Normal 5.0-9.0 [facility] Comment on above: Order Comment: Name Collection Type:: Clean-Voided Midstream Performed By: #### C BC, CMP, HS TROP, BNP #### [address] Protein,Urine Negative Normal Negative [facility] Comment on above: Order Comment: Name Collection Type:: Clean-Voided Midstream Performed By: #### C BC, CMP, HS TROP, BNP #### [address] Specificy [place],Urine 1.023 Normal 1.001-1.030 [facility] Comment on above: Order Comment: Name Collection Type:: Clean-Voided Midstream Performed By: #### C BC, CMP, HS TROP, BNP #### [address] Urobilinogen,Urine Normal Normal Normal [facility] Comment on above: Order Comment: Name Collection Type:: Clean-Voided Midstream Performed By: #### C BC, CMP, HS TROP, BNP #### [address] Urinalysis - AUTOMATEDon Appearance (U) CLEAR [employer] Other Bilirubin Ql (U) Negative [employer] Other Color (U) YELLOW [employer] Other Glucose Ql (U) Negative [employer] Other Hemoglobin Ql (U) Negative [employer] Other Ketones Ql (U) Negative [employer] Other Leukocyte esterase Test strip Ql (U) Negative [employer] Other Nitrite Ql (U) Negative [employer] Other pH (U) 6.0 [pH] [employer] Other Protein Ql (U) Negative [employer] Other Specific gravity (U) [Rel density] 1.010 [employer] Other Urobilinogen (U) [Mass/Vol] 0.2 mg/dL [employer] Other Urinalysis - AUTOMATED [employer] Other Vital Signs Date Time Vital Sign Value Performing Clinician Facility 02-25-2023 13:00-0500 Body temperature 98.2 [degF] Vivian Espinoza MD Work Phone: [employer] 02-25-2023 13:00-0500 Diastolic blood pressure 81 mm[Hg] Vivian Espinoza MD Work Phone: [facility] 02-25-2023 13:00-0500 Heart rate 79 /min Vivian Espinoza MD Work Phone: [facility] 02-25-2023 13:00-0500 Respiratory rate 18 /min Vivian Espinoza MD Work Phone: [employer] 02-25-2023 13:00-0500 SaO2% (BldA) [Mass fraction] 97 % Vivian Espinoza MD Work Phone: [facility] 02-25-2023 13:00-0500 Systolic blood pressure 125 mm[Hg] Vivian Espinoza MD Work Phone: [facility] 02-16-2023 22:54-0500 SaO2% (BldA) [Mass fraction] 96.1 % Vivian Espinoza MD Work Phone: [employer] 02-16-2023 03:00-0500 Body height 167.6 cm Vivian [facility]inoza MD [facility] 02-16-2023 03:00-0500 Body mass index (BMI) [Ratio] 42.52 kg/m2 Vivian Espinoza MD Work Phone: [employer] 02-16-2023 03:00-0500 Body weight 119.5 kg Vivian [facility]za MD [facility] 02-15-2023 20:06-0500 Body temperature 97.52 [degF] Justice Cuetoe [facility] 02-15-2023 20:06-0500 Diastolic blood pressure 63 mm[Hg] Justice Cuetoe [facility] 02-15-2023 20:06-0500 Heart rate 70 /min Justice Cuetoe [facility] 02-15-2023 20:06-0500 Mean blood pressure 76 mm[Hg] Justice Cuetoe [facility] 02-15-2023 20:06-0500 Respiratory rate 18 /min Justice Cuetoe [facility] 02-15-2023 20:06-0500 SaO2% (BldA) [Mass fraction] 94 % Justice Sukhwinder [facility] 02-15-2023 20:06-0500 Systolic blood pressure 101 mm[Hg] Justice Cuetoe [facility] 02-15-2023 20:00-0500 Diastolic blood pressure 74 mm[Hg] Justice Cuetoe [facility] 02-15-2023 20:00-0500 Heart rate 63 /min Justice Cuetoe [facility] 02-15-2023 20:00-0500 Hourly Rounding Justice Sukhwinder [facility] 02-15-2023 20:00-0500 Promise to Return Justice Sukhwinder [facility] 02-15-2023 20:00-0500 SaO2% (BldA) [Mass fraction] 100 % Justice Sukhwinder [facility] 02-15-2023 20:00-0500 Systolic blood pressure 112 mm[Hg] Justice Sukhwinder [facility] 02-15-2023 19:57-0500 Diastolic blood pressure 78 mm[Hg] Justice Sukhwinder [facility] 02-15-2023 19:57-0500 Heart rate 101 /min Justice Sukhwinder [facility] 02-15-2023 19:57-0500 Mean blood pressure 90 mm[Hg] Justice Sukhwinder [facility] 02-15-2023 19:57-0500 Respiratory rate 14 /min Justice Sukhwinder [facility] 02-15-2023 19:57-0500 SaO2% (BldA) [Mass fraction] 98 % Justice Sukhwinder [facility] 02-15-2023 19:57-0500 Systolic blood pressure 113 mm[Hg] Justice Sukhwinder [facility] 02-15-2023 19:47-0500 Heart rate 85 /min Justice Sukhwinder [facility] 02-15-2023 19:47-0500 Mean blood pressure 49 mm[Hg] Justice Sukhwinder [facility] 02-15-2023 19:47-0500 Respiratory rate 14 /min Justice Sukhwinder [facility] 02-15-2023 19:34-0500 Blood Pressure Location Justice Sukhwinder [facility] 02-15-2023 19:34-0500 Body temperature 97.52 [degF] Justice Pretty [facility] 02-15-2023 19:34-0500 Heart rate 68 /min Justice Pretty [facility] 02-15-2023 19:19-0500 Heart rate 67 /min Justice Pretty [facility] 02-15-2023 19:00-0500 Hourly Rounding Justice Pretty [facility] 02-15-2023 19:00-0500 Promise to Return Justice Pretty [facility] 02-15-2023 18:45-0500 Body temperature 97.52 [degF] Justice Pretty [facility] 02-15-2023 18:17-0500 Body temperature 97.52 [degF] Justice Pretty [facility] 02-15-2023 18:00-0500 Hourly Rounding Justice Pretty [facility] 02-15-2023 18:00-0500 Promise to Return Justice Pretty [facility] 02-15-2023 16:28-0500 Body temperature 97.88 [degF] Justice Cuetoe [facility] 08-30-2022 08:53-0400 Body height 167.64 cm Karina Melgar Work Phone: [facility] [employer] 250 DO Work Phone: 08-30-2022 08:53-0400 Body mass index (BMI) [Ratio] 38.74 kg/m2 Karina Melgar Work Phone: [facility] 250 DO Work Phone: 08-30-2022 08:53-0400 Body surface area Derived from formula 2.16 m2 Karina Guardadoon Work Phone: [facility] 250 DO Work Phone: 08-30-2022 08:53-0400 Body weight 108.86 kg Karina Melgar Work Phone: [facility] 250 DO Work Phone: 08-30-2022 08:53-0400 Diastolic blood pressure 62 mm[Hg] Karina Melgar Work Phone: [facility] 250 DO Work Phone: 08-30-2022 08:53-0400 Heart rate 55 /min Karina Guardadoon Work Phone: [facility] 250 DO Work Phone: 08-30-2022 08:53-0400 Systolic blood pressure 128 mm[Hg] Karina Guardadoon Work Phone: [facility] 250 DO Work Phone: 08-13-2022 13:21-0400 Body height 167.64 cm Karina Melgar Work Phone: [facility] 250 DO Work Phone: 08-13-2022 13:21-0400 Body mass index (BMI) [Ratio] 39.87 kg/m2 Karina Melgar Work Phone: [facility] 250 DO Work Phone: 08-13-2022 13:21-0400 Body surface area Derived from formula 2.19 m2 Karina Melgar Work Phone: [facility] 250 DO Work Phone: 08-13-2022 13:21-0400 Body weight 112.04 kg Karina Melgar Work Phone: [facility] 250 DO Work Phone: 08-13-2022 13:21-0400 Diastolic blood pressure 70 mm[Hg] Karina Lisa Ramón Work Phone: [facility] 250 DO Work Phone: 08-13-2022 13:21-0400 Heart rate 70 /min Karina Lisa Ramón Work Phone: [facility] 250 DO Work Phone: 08-13-2022 13:21-0400 Systolic blood pressure 136 mm[Hg] Karina Lisa Ramón Work Phone: [facility] 250 DO Work Phone: 07-05-2022 09:08-0400 Body height 167.64 cm Karina Lisa Ramón Work Phone: [facility] 600 DO Work Phone: 07-05-2022 09:08-0400 Body mass index (BMI) [Ratio] 39.54 kg/m2 Karina Lisa Ramón Work Phone: [facility] 600 DO Work Phone: 07-05-2022 09:08-0400 Body surface area Derived from formula 2.18 m2 Karina Lisa Ramón Work Phone: [facility] 600 DO Work Phone: 07-05-2022 09:08-0400 Body weight 111.13 kg Karina Lisa Ramón Work Phone: [facility] 600 DO Work Phone: 07-05-2022 09:08-0400 Diastolic blood pressure 70 mm[Hg] Karina Guardadoon Work Phone: [facility] 600 DO Work Phone: 07-05-2022 09:08-0400 Heart rate 72 /min Karina Lisa Ramón Work Phone: [facility] 600 DO Work Phone: 07-05-2022 09:08-0400 Systolic blood pressure 138 mm[Hg] Karina Lisa Ramón Work Phone: [facility] 600 DO Work Phone: 06-20-2022 16:24-0400 Body height 167.64 cm Karina Lisa Ramón Work Phone: [facility] 250 DO Work Phone: 06-20-2022 16:24-0400 Body mass index (BMI) [Ratio] 40.03 kg/m2 Karina Lisa Ramón Work Phone: [facility] 250 DO Work Phone: 06-20-2022 16:24-0400 Body surface area Derived from formula 2.19 m2 Karina Lisa Ramón Work Phone: [facility] 250 DO Work Phone: 06-20-2022 16:24-0400 Body weight 112.49 kg Karina Lisa Ramón Work Phone: [facility] 250 DO Work Phone: 06-20-2022 16:24-0400 Diastolic blood pressure 102 mm[Hg] Karina Lisa Ramón Work Phone: [facility] 250 DO Work Phone: 06-20-2022 16:24-0400 Heart rate 76 /min Karina Lisa Ramón Work Phone: [facility] 250 DO Work Phone: 06-20-2022 16:24-0400 Systolic blood pressure 162 mm[Hg] Karina Guardadoon Work Phone: [facility] 250 DO Work Phone: 05-10-2022 14:46-0400 Body height 167.64 cm Karina Lisa Melgar Work Phone: [facility] [address] [place] Work Phone: 05-10-2022 14:46-0400 Body mass index (BMI) [Ratio] 40.19 kg/m2 Karina Guardadoon Work Phone: [facility] [address] [place] Work Phone: 05-10-2022 14:46-0400 Body surface area Derived from formula 2.2 m2 Karina Guardadoon Work Phone: [facility] [address] [place] Work Phone: 05-10-2022 14:46-0400 Body weight 112.95 kg Karina Guardadoon Work Phone: [facility] [address] [place] Work Phone: 05-10-2022 14:46-0400 Diastolic blood pressure 80 mm[Hg] Karina Guardadoon Work Phone: [facility] [address] [place] Work Phone: 05-10-2022 14:46-0400 Heart rate 61 /min Karina Melgar Work Phone: [facility] [address] [place] Work Phone: 05-10-2022 14:46-0400 Systolic blood pressure 130 mm[Hg] Karina Melgar Work Phone: [facility] [address] [place] Work Phone: 05-02-2022 13:26-0500 Body height 167.64 cm Karina Melgar Work Phone: [facility] 600 DO Work Phone: 05-02-2022 13:26-0500 Body mass index (BMI) [Ratio] 40.19 kg/m2 Karina Melgar Work Phone: [facility] 600 DO Work Phone: 05-02-2022 13:26-0500 Body surface area Derived from formula 2.2 m2 Karina Lisa aRmón Work Phone: [facility] 600 DO Work Phone: 05-02-2022 13:26-0500 Body weight 112.95 kg Karina Lisa Ramón Work Phone: [facility] 600 DO Work Phone: 05-02-2022 13:26-0500 Diastolic blood pressure 64 mm[Hg] Karina Lisa Ramón Work Phone: [facility] 600 DO Work Phone: 05-02-2022 13:26-0500 Heart rate 62 /min Karina Lisa Ramón Work Phone: [facility] 600 DO Work Phone: 05-02-2022 13:26-0500 Systolic blood pressure 116 mm[Hg] Karina Lisa Ramón Work Phone: [facility] 600 DO Work Phone: 04-29-2022 11:48-0500 Body height 167.64 cm Karina Lisa Ramón Work Phone: [facility] 600 DO Work Phone: 04-29-2022 11:48-0500 Body mass index (BMI) [Ratio] 40.09 kg/m2 Karina Lisa Ramón Work Phone: [facility] 600 DO Work Phone: 04-29-2022 11:48-0500 Body surface area Derived from formula 2.19 m2 Karina Guardadoon Work Phone: [facility] 600 DO Work Phone: 03-06-2023 11:48-0500 Body weight 112.67 kg Karina Melgar Work Phone: [facility] [employer] [facility] 600 DO Work Phone: 04-29-2022 11:48-0500 Diastolic blood pressure 80 mm[Hg] Karina Guardadoon Work Phone: [facility] 600 DO Work Phone: 04-29-2022 11:48-0500 Heart rate 60 /min Karina Guardadoon Work Phone: [facility] 600 DO Work Phone: 04-29-2022 11:48-0500 Systolic blood pressure 122 mm[Hg] Karina Melgar Work Phone: [facility] [employer] [facility] 600 DO Work Phone: 04-18-2022 14:45-0500 Body height 167.64 cm Karina Melgar Other [employer] Other 04-18-2022 14:45-0500 Body mass index (BMI) [Ratio] 39.54 kg/m2 Karina Melgar Other [employer] Other 04-18-2022 14:45-0500 Body weight 111.13 kg Karina Melgar Other [employer] Other 04-18-2022 14:45-0500 Diastolic blood pressure 76 mm[Hg] Karina Melgar Other [employer] Other 04-18-2022 14:45-0500 Systolic blood pressure 122 mm[Hg] Karina Melgar Other [employer] Other 03-11-2022 18:35-0500 Diastolic blood pressure 79 mm[Hg] MD Karina Melgar Work Phone: [facility] 03-11-2022 18:35-0500 Heart rate 74 /min MD Karina Melgar Work Phone: [facility] 03-11-2022 18:35-0500 Respiratory rate 20 /min MD Karina Melgar Work Phone: [facility] 03-11-2022 18:35-0500 SaO2% (BldA) [Mass fraction] 97 % MD Karina Melgar Work Phone: [facility] 03-11-2022 18:35-0500 Systolic blood pressure 137 mm[Hg] MD Karina Melgar Work Phone: [facility] 03-11-2022 13:03-0500 Body height 167.64 cm MD Karina eMlgar Work Phone: [facility] 03-11-2022 13:03-0500 Body temperature 98.7 [degF] MD Karina Melgar Work Phone: [facility] 03-11-2022 13:03-0500 Body weight 116 kg MD Karina Melgar Work Phone: [facility] 06-14-2021 11:15-0400 Body height 167.64 cm Shahriar Franciscoisle II Other [employer] [facility] [employer] Other 06-14-2021 11:15-0400 Body mass index (BMI) [Ratio] 40.02 kg/m2 Shahriar Alejo II Other [employer] Other 06-14-2021 11:15-0400 Body weight 112.49 kg Shahriar Alejo II Other [employer] Other 05-24-2021 15:30-0400 Body height 167.64 cm Karina Melgar Other [employer] Other 05-24-2021 15:30-0400 Body mass index (BMI) [Ratio] 40.19 kg/m2 Karina Melgar Other [employer] Other 05-24-2021 15:30-0400 Body weight 112.95 kg Karina Melgar Other [employer] Other 05-24-2021 15:30-0400 Diastolic blood pressure 80 mm[Hg] Karina Melgar Other [employer] Other 05-24-2021 15:30-0400 Systolic blood pressure 132 mm[Hg] Karina Melgar Other [employer] Other 03-21-2021 15:00-0500 Body height 167.64 cm Shahriar [employer] Other [employer] Other 03-21-2021 15:00-0500 Body mass index (BMI) [Ratio] 40.51 kg/m2 Shahriar [place] II Other [employer] Other 03-21-2021 15:00-0500 Body weight 113.85 kg Shahriar [place] II Other [employer] Other 02-13-2021 15:45-0500 Body height 167.64 cm Karina Melgar Other [employer] Other 02-13-2021 15:45-0500 Diastolic blood pressure 80 mm[Hg] Karina Melgar Other [employer] Other 02-13-2021 15:45-0500 Systolic blood pressure 144 mm[Hg] Karina Melgar Other [employer] Other 01-29-2021 14:45-0500 Body height 167.64 cm Karina Melgar Other [employer] Other 01-29-2021 14:45-0500 Body mass index (BMI) [Ratio] 40.64 kg/m2 Karina Melgar Other [employer] Other 01-29-2021 14:45-0500 Body weight 114.22 kg Karina Melgar Other [employer] Other 01-29-2021 14:45-0500 Diastolic blood pressure 92 mm[Hg] Karina Melgar Other [employer] Other 01-29-2021 14:45-0500 SaO2% (BldA) [Mass fraction] 98 % Karina Melgar Other [employer] Other 01-29-2021 14:45-0500 Systolic blood pressure 148 mm[Hg] Karina Melgar Other [employer] Other Encounters Encounter Date Encounter Type Care Provider Facility Start: 02-21-2023 Evaluation and management of inpatient [facility] Facility:[facility] Start: 02-18-2023 Evaluation and management of inpatient UNKNOWN PROVIDER Facility:[facility] Start: 02-18-2023 [facility]: Start: 02-18-2023 ambulatory UNKNOWN PROVIDER [facility] Start: 02-18-2023 End: 02-18-2023 Subsequent hospital visit by physician Ip Pick Remover 3 [facility] Start: 02-17-2023 Evaluation and management of inpatient UNKNOWN PROVIDER [facility] Start: 02-16-2023 Evaluation and management of inpatient JUSTICE PRETTY Facility:[facility] Start: 02-16-2023 Emergency department patient visit UNKNOWN PROVIDER [facility] Start: 02-15-2023 Emergency department patient visit UNKNOWN PROVIDER Facility:[facility] Start: 02-15-2023 End: 02-15-2023 ambulatory UNKNOWN PROVIDER [facility] Start: 02-15-2023 End: 02-25-2023 Evaluation and management of inpatient Vivian Espinoza MD Work Phone: [facility] [address] Start: 02-15-2023 End: 02-25-2023 Patient encounter status Vivian Espinoza MD Work Phone: [facility] Work Phone: Start: 02-15-2023 End: 02-16-2023 Emergency department patient visit Justice Pretty Facility:[facility] Start: 02-15-2023 End: 02-15-2023 Emergency department patient visit Justice Pretty [facility] Start: 08-30-2022 Office outpatient vi sit 25 minutes Karina Melgar Work Phone: [facility] 250 DO Work Phone: Start: 08-13-2022 ambulatory Christopher Porter Facilit y: Start: 08-02-2022 ambulatory Christopher Porter Facilit y: Start: 08-02-2022 End: 08-02-2022 ambulatory Christopher Porter Facility:[facility] Start: 07-05-2022 ambulatory Christopher Porter Facilit y: Start: 07-05-2022 Office outpatient vi sit 25 minutes Karina Melgar Work Phone: [facility] 600 DO Work Phone: Start: 06-20-2022 Patient encounter procedure Karina Melgar Work Phone: [facility] 250 DO Work Phone: Start: 06-20-2022 ambulatory Christopher Porter Facilit y: Start: 06-12-2022 Chart Update Karina floyd Work Phone: [facility] 250 DO Work Phone: Start: 06-11-2022 End: 06-11-2022 ambulatory Christopher Porter Facility:[facility] Start: 06-11-[address] Karina Melgar Facility:[id number] Start: 05-28-2022 Patient encounter procedure Karina Melgar Work Phone: [facility] 250 DO Work Phone: Start: 05-10-2022 Patient encounter procedure Karina Melgar Work Phone: [facility] [address] [place] Work Phone: Start: 05-10-2022 ambulatory Christopher Sheikh y: Start: 05-03-2022 AUDIT Karina Blackwell everett Work Phone: [facility] 250 DO Work Phone: Start: 05-02-2022 Patient encounter procedure Karina Melgar Work Phone: [facility] 600 DO Work Phone: Start: 05-02-2022 ambulatory Christopher Sheikh y: Start: 04-29-2022 Office outpatient vi sit 25 minutes Karina Melgar Work Phone: [facility] 600 DO Work Phone: Start: 04-29-2022 ambulatory Christopher Sheikh y: Start: 04-18-2022 End: 04-18-2022 ambulatory Karina Melgar Other [facility] [place] Other Start: 04-18-2022 Office outpatient vi sit 15 minutes Karina Melgar [facility] Start: 03-29-2022 End: 03-04-2023 ambulatory ACNP Mae Rodrigez Facility:[facility] Start: 03-29-2022 End: 03-03-2023 Recurring Mae Rodrigez [facility] Start: 03-27-2022 End: 03-27-2022 ambulatory Karina Melgar Facility:[facility] Start: 03-27-2022 End: 03-27-2022 Patient encounter procedure MD Karina Melgar Work Phone: [facility] Work Phone: Start: 03-27-2022 End: 03-27-2022 ambulatory MD Karina Melgar Work Phone: [facility] Work Phone: Start: 03-27-2022 Telephone encounter Sejal Nikolay [facility] Start: 03-25-2022 End: 03-25-2022 ambulatory Sejalra Link Other [facility] Other Start: 03-25-2022 Telephone encounter Sejal Nikolay [facility] Start: 03-21-2022 ambulatory Christopher Sheikh y: Start: 03-14-2022 End: 03-14-2022 ambulatory Sejalra Link Other [employer] Other Start: 03-14-2022 Telephone encounter Sejalra Link [facility] Start: 03-12-2022 End: 03-12-2022 ambulatory Karina Melgar Other [employer] Other Start: 03-12-2022 Telephone encounter Karina cabrera [facility] Start: 03-11-2022 End: 03-11-2022 Emergency department patient visit Yo Blood Facility:[facility] Start: 03-11-2022 End: 03-11-2022 Emergency department patient visit MD Karina Melgar Work Phone: [facility] Work Phone: Start: 09-26-2021 End: 09-26-2021 ambulatory Shahriar Dhillon II Facility:[facility] Start: 08-28-2021 End: 08-28-2021 ambulatory Shahriar Dhillon II Other [employer] Other Start: 08-28-2021 Telephone encounter Shahriar Dhillon II [facility] [place] [facility] Start: 08-15-2021 (Post-Op) Post-Op Shahriar Crumple II [facility] [place] [facility] Start: 08-15-2021 End: 08-15-2021 ambulatory Shahriar M [place] II [facility] Other Start: 07-18-2021 (Post-Op) Post-Op Shahriar [place] II [facility] [place] [facility] Start: 07-18-2021 End: 07-18-2021 ambulatory Shahriar [place] II Other [employer] Other Start: 07-02-2021 End: 07-03-2021 ambulatory Kate Mistonier Facility:[facility] Start: 06-28-2021 End: 06-28-2021 ambulatory Shahriar M [place] II Facility:[facility] Start: 06-22-2021 (Prolonged) Prolonge d Services Shahriar Alejo II [facility] [place] [facility] Start: 06-22-2021 End: 06-22-2021 ambulatory Shahriar [place] II Other [employer] Other Start: 06-18-2021 End: 06-18-2021 ambulatory Shahriar M [place] II Facility:[facility] Start: 06-14-2021 End: 06-14-2021 ambulatory Shahriar [place] II Other [employer] Other Start: 06-14-2021 Encounter for other preprocedural examination Shahriar [place] II [facility] Start: 06-14-2021 Patient encounter procedure Shahriar [place] II [facility] Start: 05-24-2021 End: 05-24-2021 ambulatory Karina Melgar Other [employer] Other Start: 05-24-2021 Encounter for other preprocedural examination Karina Melgar [facility] Start: 05-24-2021 Office outpatient vi sit 15 minutes Karina Melgar [facility] Start: 03-22-2021 End: 03-22-2021 ambulatory Lynn Gurrola Other [facility] Other Start: 03-22-2021 Encounter for other preprocedural examination Shahriar Dhillon II [facility] Start: 03-22-2021 Telephone encounter Shahriar Dhillon II [facility] Start: 03-21-2021 End: 03-21-2021 ambulatory Shahriar Dhillon II Other [employer] Other Start: 03-21-2021 Office outpatient ne w 45 minutes Shahriar Dhillon II [facility] Start: 02-13-2021 End: 02-13-2021 ambulatory Karina Melgar Other [employer] Other Start: 02-13-2021 Office outpatient vi sit 15 minutes Karina Melgar [facility] Start: 01-29-2021 End: 01-29-2021 ambulatory Karina Melgar Other [employer] Other Start: 01-29-2021 Office outpatient vi sit 15 minutes Karina Melgar [facility] Start: 04-01-2020 End: 04-01-2020 Orders Only Alina Bradyismavan Work Phone: [facility] Covid Vaccine Clinic Procedures Date Procedure Procedure [...] Radiologic exam ches t single view Taina Biares MD Work Phone: Start: 02-16-2023 Urnls dip [...] Surgery: [id number] Result Comment: PERF ORMED BY: [address] [place] [address] PATHOLOGIST LENS ENGRAVER EYAD HOWARD M.D. Start: 02-25-2016 Total colonoscopy Devon van Melgar Work Phone: Arthroplasty of knee Karina [...] Christopher Porter, Status: Pen, Time: 8:40 AM -[facility] 250 DO Work Phone: Start: 10-25-2022 Influenza vaccination [facility] Start: 08-30-2022 FUV, Provider: Christopher Porter, Status: Pen, Time: 8:40 AM FUV, Provider: Christopher Porter, Status: Pen, Time: 8:40 AM -[facility] 600 DO Work Phone: Start: 07-18-2022 SURGNONUH, Provider: Christopher Porter, Status: Pen, Time: 10:00 AM SURGNONUH, Provider: Christopher Porter, Status: Pen, Time: 10:00 AM -[facility] 600 DO Work Phone: Start: 07-05-2022 FUV, Provider: Christopher Porter, Status: Pen, Time: 8:40 AM FUV, Provider: Christopher Porter, Status: Pen, Time: 8:40 AM -[facility] 250 DO Work Phone: Start: 06-20-2022 EKG, Provider: ESTELA CLARKE GRAVITY PROSPECTING SUPERVISOR 1,[id number], Status: Pen, Time: 1:00 PM EKG, Provider: ESTELA CLARKE GRAVITY PROSPECTING SUPERVISOR 1,[id number], Status: Pen, Time: 1:00 PM -[facility] 250 DO Work Phone: Start: 06-11-2022 SURGNONUH, Provider: Christopher Porter, Status: Pen, Time: 2:00 PM SURGNONUH, Provider: Christopher Porter, Status: Pen, Time: 2:00 PM -[facility] 250 DO Work Phone: Start: 06-04-2022 FUV, Provider: Christopher Porter, Status: Pen, Time: 8:20 AM FUV, Provider: Christopher Porter, Status: Pen, Time: 8:20 AM [facility] 600 DO Work Phone: Start: 05-10-2022 EKG, Provider: ESTELA CLARKE GRAVITY PROSPECTING SUPERVISOR 1,[id number], Status: Pen, Time: 2:00 PM EKG, Provider: ESTELA CLARKE GRAVITY PROSPECTING SUPERVISOR 1,[id number], Status: Pen, Time: 2:00 PM [facility] 250 DO Work Phone: Start: 05-02-2022 EKG, Provider: ESTELA HAMPTON GRAVITY PROSPECTING SUPERVISOR 1,[id number], Status: Pen, Time: 1:00 PM EKG, Provider: ESTELA HAMPTON GRAVITY PROSPECTING SUPERVISOR 1,[id number], Status: Pen, Time: 1:[address] [facility] 600 DO Work Phone: Start: 10-26-2019 Influenza vaccination given Sequential Influenza Vaccine (#1) [facility] Start: 11-24-2014 [facility] Start: [address] [facility] Start: 2013 [facility] Start: 2008 RSV vaccine (optional 60+ years) RSV vaccine (optional 60+ years) [facility] Start: 2008 [facility] Start: 1998 Administration of herpes zoster vaccine Zoster Vaccines (1 of 2) [facility] Start: 1998 Screening for malignant neoplasm of colon [facility] Start: 1998 Shingles (RZV) Vaccine (1 of 2) [facility] Start: 1993 Screening for malignant neoplasm of colon [facility] Start: 11-29-1983 Lipid panel [facility] Start: 1966 Hepatitis C antibody, confirmatory test Hepatitis C Screening [facility] Start: [address] [facility] Start: 1966 Tetanus + diphtheria + acellular pertussis vaccine (product) [facility] Start: 1964 COVID-19 Vaccine (1 of 2) COVID-19 Vaccine (1 of 2) [facility] Start: 1960 Adolescent depression screening assessment Depression Screening (PHQ9) [facility] Start: 11-29-1951 History and physical examination, annual for health maintenance Wellness Visit [facility] Start: 05-29-1949 COVID-19 Vaccine (#1) COVID-19 Vaccine (#1) [facility] Start: 05-29-1949 [facility] Start: 1948 Fall risk assessment Falls Risk Assessment [facility] Start: 1948 Prostate specific antigen measurement PSA Level [facility] Start: 1948 Screening for malignant neoplasm of colon [facility] Start: 1948 Tetanus vaccination Tetanus: Every 10yrs [facility] Assay of magnesium [facility] Assay of phosphorus inorganic [facility] Basic metabolic 2000 panel - Serum or Plasma [facility] Work Phone: CBC panel - Blood by Automated count [facility] End: 02-16-2023 CT Thigh - left WO contrast [facility] Work Phone: Patient Education Atrial Fibrill ation Cough, Adult ED Bronchitis, Adult ED [facility] Work Phone: Patient referral [facility] Work Phone: End: 02-18-2023 RED BLOOD CELL COMPONENT [facility] End: 02-17-2023 Smr prim src gram/giemsa stain bct fungi/cell [facility] Work Phone: Immunizations Immunization Date Immunization Notes Care Provider Ella serna NEGATED: Highlighted row has not occurred! 6 influenza, seasonal, injectable Patient Objection Karina Melgar Other [employer] Other Payers Date Payer Category Payer Unknown [id number] 2023 Unknown XX 2022 Unknown 2021 Self-pay [id number] 2021 Unknown [id number] 2.1 [id number] 2013 Medicare [id number] 2.1 6.840.1.687012.19 2013 Medicare [id number]. [id number] 1948 Unknown [id number] 2.16. 840.1.916070.3.579.2.356 1948 Unknown [id number] 2.16. 840.1.783869.3.579.2.356 1948 Unknown [id number] 2.16. 840.1.302832.3.579.2.356 1948 Unknown [id number] 2.16. 840.1.193768.3.579.2.356 1948 Unknown [id number] 2.. 840.1.171237.3.579.2.356 1948 Unknown [id number] 2. 840.1.621310.3.579.2.356 1948 Unknown [id number] 2. 840.1.369389.3.579.2.356 1948 Unknown [id number] 2. 840.1.388782.3.579.2.356 1948 Unknown [id number] 2. 840.1.984203.3.579.2.356 1948 Unknown [id number] 2. 840.1.963836.3.579.2.356 1948 Unknown [id number] 2. 840.1.855011.3.579.2.732 1948 Unknown [id number] 2. 840.1.187374.3.579.2.732 1948 Unknown [id number] 2. 840.1.217123.3.579.2.732 1948 Unknown [id number] 2. 840.1.859029.3.579.2.732 1948 Unknown [id number] 2. 840.1.640394.3.579.2.732 1948 Unknown [id number] 2.16. 840.1.222680.3.579.2.732 1948 Unknown [id number] 2.16. 840.1.160125.3.579.2.732 1948 Unknown [id number] 2.16. 840.1.711319.3.579.2.732 1948 Unknown [id number] 2.16. 840.1.407532.3.579.2.732 1948 Unknown [id number] 2.16. 840.1.901538.3.579.2.732 1948 Unknown [id number] 2.16. 840.1.135911.3.579.2.732 1948 Unknown [id number] 2.16. 840.1.788725.3.579.2.732 1948 Unknown [id number] 2.16. 840.1.857661.3.579.2.732 1948 Unknown [id number] 2.16.8 40.1.732185.3.579.2.727 1948 Unknown [id number] 2.16.8 40.1.881577.3.579.2.727 1948 Unknown [id number] 2.16.8 40.1.988477.3.579.2.727 Unknown [id number] 2.16.8 40.1.402146.3.579.2.531 Unknown [id number] 2.16.8 40.1.130497.3.579.2.531 Unknown [id number] 2.16.8 40.1.928265.3.579.2.531 Unknown [id number] 2.16.8 40.1.769700.3.579.2.531 Unknown [id number] 2.16.8 40.1.497236.3.579.2.531 Unknown [id number] 2.16.8 40.1.150053.3.579.2.531 Unknown [id number] 2.16.8 40.1.463073.3.579.2.531 Unknown [id number] 2.16.8 40.1.718876.3.579.2.531 Social History Date Type Detail Facility Tobacco smoking status NHIS Unknown if ever smoked [facility] Start: 1950 Sex Assigned At Not [facility] file [facility] Sex Assigned At [facility] Start: 03-11-2022 Tobacco smoking status NHIS Never smoked tobacco (finding) [facility] Start: 1950 Sex Assigned At Male F [facility] No alcohol use No alcohol use [facility] [employer] 600 DO Work Phone: Comment on above: Two 10 oz cups of co ffee; Quit in 1976; Start: 01-31-2019 Tobacco smoking status Ex-smoker (finding) [facility] Tobacco smoking status NHIS Tobacco smoking consumption unknown [facility] Medical Equipment Procedure Code Equipment Code Equipment [...] Arthroplasty, hip, total, anterior approach Acetabular shell ()[id number] FDA Start: 07-02-2021 Arthroplasty, hip, total, anterior approach Ceramic femoral head prosthesis ()[id number] FDA Start: 07-02-2021 Arthroplasty, hip, total, anterior approach Coated hip femur prosthesis, modular ()[id number] FDA Start: 07-02-2021 Arthroplasty, hip, total, anterior approach Non-constrained polyethylene acetabular liner ()[id number] FDA Start: 07-02-2021 [id number] Start: 02-18-2023 [id number] Start: 02-18-2023 [id number] Start: 02-18-2023 Functional Status Date Assessment Result Facility 02-15-2023 Functional Status No [facility] Clinical Notes 01-29-2021 to 02-25-2023 Gin Alberto RN - 02/25/2023 5:19 PM Shyann Stout LSW - 02/25/2023 9:22 AM Abhijit Khan MD - 02/24/2023 10:53 AM Shyann Stout LSW - 02/24/2023 8:03 AM ESTAttachments Note Date & Type Note Facility 02-25-2023 History of Present illness Narrative [facility] IV's & drain removed. Patient took all belongings with him. Discharge plan: SNF, awaiting facility acceptance. Contacted [facility] to follow up determination. VM was left for admissions department, awaiting reply. ALEE Montes, JINNY ADDENDUM 1:45PM [facility] denied pt. Called pt's , Rae ([phone]) to obtain additional SNF choices. She selected the following: [facility] Referrals are in process. ALEE Montes LSW ADDENDUM 2:48PM [facility] accepted pt. aware and would like [...] 9-10 fracture was seen at [facility].The patient had 5 packs of RBCs, 3 packs of FFP, 1 platelet, TXA and Vit K from when he arrived to [facility] and in transit. Patient takes coumadin. Hospital Course: 02/16- became hypotensive, concern for aspiration PNA. Central line, art line placed. On dual pressors. 02/17- weaned off pressors. telecom manager attempted bedside echo. 02/18- OR with ortho [...] 02/19 Respiratory: COPD, pulmonary HTN - respiratory tax revenue officer protocol - encourage IS - weaned off oygen, goal O2 >88% - home albuterol - MRSA screen negative GI/ Nutrition: - Diet: regular - Bowel regimen: senna, miralax Renal/ Electrolytes: - HLIV Beckman replaced overnight 02/20 for retention, continue until more mobile. Will consider removing /2. - QOD BMP, Ph, Mg: replace electrolytes [...] Trauma Surgery Chief Resident Department of Surgery [facility] Trauma ICU [phone] Trauma Floor [phone] Associated attestation - Faby Ryan MD - [...] facility acceptance. Referrals were previously sent to [facility] and [facility] denied pt, [facility] is still reviewing. Updates were sent in [facility]. ALEE Montes, ROLL UP MACHINE OPERATOR Images from the original note were not [...] 9-10 fracture was seen at [facility].The patient had 5 packs of RBCs, 3 packs of FFP, 1 platelet, TXA and Vit K from when he arrived to [facility] and in transit. Patient takes coumadin. Hospital Course: 02/16- became hypotensive, concern for aspiration PNA. Central line, art line placed. On dual pressors. 02/17- weaned off pressors. telecom manager attempted bedside echo. 02/18- OR with ortho [...] Abdominal: soft, not distended, not tender : Bekcman in place. Clear yellow urine Musculoskeletal: trace [...] 02/19 Respiratory: COPD, pulmonary HTN - respiratory tax revenue officer protocol - encourage IS - wean oygen, [...] Trauma Surgery Chief Resident Department of Surgery [facility] Trauma ICU [phone] Trauma Floor [phone] Images from the original note were not [...] 9-10 fracture was seen at [facility].The patient had 5 packs of RBCs, 3 packs of FFP, 1 platelet, TXA and Vit K from when he arrived to [facility] and in transit. Patient takes coumadin. Hospital Course: 02/16- became hypotensive, concern for aspiration PNA. Central line, art line placed. On dual pressors. 02/17- weaned off pressors. telecom manager attempted bedside echo. 02/18- OR with ortho [...] 7.7 Comment: Note updated reference ranges. 02/22/23 012 2.0 02/22/23 012 2.8 Arterial Blood Gases None ASSESSMENT & [...] 02/19 Respiratory: COPD, pulmonary HTN - respiratory tax revenue officer protocol - encourage IS - wean oygen, [...] Trauma Surgery Chief Resident Department of Surgery [facility] Trauma ICU [phone] Trauma Floor [phone] Preliminary Vascular Lab Report Duplex Left Upper [...] 9-10 fracture was seen at [facility].The patient had 5 packs of RBCs, 3 packs of FFP, 1 platelet, TXA and Vit K from when he arrived to [facility] and in transit. Patient takes coumadin. Hospital Course: 02/16- became hypotensive, concern for aspiration PNA. Central line, art line placed. On dual pressors. 02/17- weaned off pressors. telecom manager attempted bedside echo. 02/18- OR with ortho [...] 4434 (37.1 mL/kg) [Urine:4434 (1.5 mL/kg/hr)] Net: -7134 Weight: 119.5 kg -- PHYSICAL EXAM -- [...] 02/19 Respiratory: COPD, pulmonary HTN - respiratory tax revenue officer protocol - encourage IS - goal O2 [...] rec for SNF Pt was denied from [facility] due to no available bed. Ruben will [...] return to baseline. Will continue to monitor. [facility] 02/20/2023 Reason for Services: Follow-Up Tonal Regulator attempted to visit with patient for follow up regarding resources and education provided and answer any questions. Patient was asleep at time of visit. Tonal Regulator will attempt to engage with Patient and/or Family the next business day. Jess Henley Main Line: [phone] SW/CM aware that patient meets criteria for SNF. Met with Pt on unit to discuss dispo. Patient open and agreeable to SNF placement. CM/SW provided pt the quality and resource use measure data from available post-acute (PAC) providers, that best align with the patient's treatment goals and preferences from the medicare.gov compare site for SNF. [place] of Choice was provided to the patient/patient authorization representative. Pt want's RAE STROUD [phone] as decision maker for dc planning SW/CM will follow up for choices. Addendum 2:06pm SW called pt's RAE STROUD [phone] she gave the following facility choices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 Gin Alberto RN) propafenone (RYTHMOL SR) 12 hour capsule 425 mg, Oral, 2 TIMES DAILY, First dose (after last modification) on Fri02/16/23 at 2100, Until Discontinued 09 (Given - [...] BE BASED ON THE PRIMARY CLINICAL RECORDS. [employer] [facility]. provides no warranty or guarantee of the accuracy or completeness of information in this document.
[2023-03-10 09:28] LABS: Prothrombin Time 30.8 sec (9.0-11.6)
== END 2023-03-10 04:44 | disposition home or self-care (01) ==
LOC: LAB 04:43
PROVIDERS: PCP Family Medicine; Visit Provider Family Medicine
DX: I48.91 Unspecified atrial fibrillation (principal)
CPT/HCPCS: 36415; 85610

== ENCOUNTER 2023-03-14 01:41 | Outpatient (REF) | payer MEDICARE, SELFPAY ==
--- OUTSIDE RECORDS SUMMARY | 2023-03-14 01:46 | XMS_ITS | CCD ---
Author Name Unknown Address [address] [place] [address] Organization [facility] Care Team Providers Care Operating Room Specialist Name Role Phone No, Physician Primary Care Provider UnavailShahriar Frederick II Unavailable [phone] Shahriar Dhillon II Unavailable [phone] Karina Melgar Unavailable Lynn Gurrola Unavailable MD Karina Melgar Primary Care Provider DO Yo Blood Emergency Provider LISSETH Link Attending Provider Sejal Link Unavailable Karina Melgar Unavailable Unavailable [...] Mariella vailable KARINA MELGAR Primary Care Physician [phone] JUSTICE PRETTY Referring Unavailable RADHA SMALL Attending [...] Medication Allergies] Propensity to adverse reactions (disorder) [facility] Repository Medications Current Medications Medication Drug Class(es) Dates Sig (Normalized) Sig (Original) acetaminophen 325 mg / HYDROcodone bitartrate 5 mg oral tablet (2 sources) Opioid Agonist Start: 07-28-2020 [place] 325 mg-5 mg oral tablet 1 tab(s), [...] Active cyclobenzaprine hydrochloride 10 mg oral tablet (2 sources) Muscle Relaxant Start: 02-25-2023 take 1 tablet by mouth three times daily as needed for muscle spasms cyclobenzaprine (FLEXERIL) 10 MG tablet Take 1 Tablet by mouth 3 times daily as needed for Muscle spasms. 30 Tablet 0 02/25/2023 Active docusate sodium 50 mg / sennosides, [facility] 8.6 mg oral tablet (3 sources) Start: [...] Take 1 Tablet by mouth daily. 0 Active Lisinopril-hydro CHLOROthiazide 10/12.5 TAKE 1 TABLET BY MOUTH ONCE A DAY Orally Once a day Active Lisinopril-hydro CHLOROthiazide 10/12.5 TAKE 1 TABLET BY MOUTH ONCE A DAY Orally Once a day for 30 days Active lidocaine 0.04 mg/mg medicated patch (4 sources) Antiarrhythmic, Amide Local Anesthetic Start: 02-26-2023 apply 1 dose transdermal route every twenty-four hours lidocaine (LIDODERM) 4 % PT[facility] patch Place 1 Patch on the skin every 24 hours. 30 Patch 0 02/26/2023 Active Start: 02-19-2023 apply 1 dose transde rmal [...] daily Prednisone Active 40 MG PO Daily 11 28March 11, 2022 12:00am Prostate Control - (17 [...] 100 mg oral capsule (2 sources) Start: take 100 mg by mouth once daily [...] mg, Oral, EVERY FRIDAY, First dose on 03/02/23 at 0900, Until Discontinued Start: 01-02-2024 take 4 mg by mouth once daily 4 mg, Oral, DAILY EXCEPT FRIDAY, First dose on Fri02/25/23 at 1330, Until Discontinued Start: 03-21-2022 warfarin 2 mg Tab Refills(s) 0 Start Date: 08/01/22 Status: Ordered Warfarin Sodium 2 MG Oral Tablet Take as directed by [facility] coumad[facility] Quantity: 0 Refills: 0 Ordered: [...] Start: 06-14-2021 take 2 tablets by mo [facility] every eight hours for pain Acetaminophen 500 [...] 2019 10:47pm albuterol 0.83 mg/ml inhalation solution (7 sources) beta2-Adrene rgic Agonist Start: 02-17-2023 2.5 mg, Nebulization, EVERY 4 HOURS RT, First dose on Fri02/17/23 at 1200, Until Discontinued Start: 02-16-2023 take 2 puff(s) by in halation every four hours as needed 2 Puff, Inhalation, EVERY 4 HOURS PRN, Starting on Fri02/16/23 at 1014, Until Discontinued, Shortness of Breath, Wheezing Start: 03-11-2022 Albuterol Sulf ate Active 2 INH INHALATION Q6H 8 March 11, 2022 12:00am administer with spacer take 2 puff(s) by mo ut every four hours as needed ALBUTEROL INHALATION Inhale 2 Puffs by mouth every 4 hours as needed for Other (sob). 0 Active take 2 puff(s) by mo uth every four hours as needed ALBUTEROL INHALATION [...] 1 capsule by mouth twice daily Iron [id number]-E-Lcytg Acid (Ferocon) 110-0.5 mg Capsule Discontinued 1 [...] 02-15-2023 End: 02-15-2023 ONCE PRN, Starting on [facility] 02/15/23 at 2127, Until Discontinued ibuprofen 200 [...] (2,000 mg), Intravenous, ONCE, 1 dose, On Fri02/18/23 at 0700 Start: 02-16-2023 End: 02-16-2023 2 g (2,000 mg), Intravenous, ONCE, 1 dose, On 02/16/23 at 0700 melatonin 3 mg oral tablet (3 sources) Start: 02-21-2023 take 3 mg by mouth at bedtime as needed 3 mg, Oral, AT BEDTIME PRN, Starting on Fri02/21/23 at 203, Until Discontinued, Sleep Start: 07-28-2017 End: 06-18-2021 [...] dose on Fri02/16/23 at 1000, Until Discontinued miconazole nitrate 0.02 [...] mg/ml injection (1 source) Opioid Antagonist Start: 023 0.4 mg, Intravenous Push, PRN, Starting on Fri02/18/23 at 1250, Until Discontinued, Respiratory Rate Less Than 8 for adults and less than 12 for Peds or for suspected overdose naproxen sodium 220 mg oral tablet (2 sources) Nonsteroidal Anti-inflammatory Drug Start: 022 End: take 440 mg by mouth every twelve hours Naproxen Sodium Discontinued 440 MG PO Q12H June 17, 2021 11:00pm July 03, 2021 10:52am 2 ml ondansetron 2 mg/ml injection (6 sources) Serotonin-3 Receptor Antagonist Start: 023 take 4 mg intravenously every four hours as needed 4 mg, Intravenous Push, EVERY 4 HOURS PRN, Starting on Fri02/16/23 at 1308, Until Discontinued, Nausea, Vomiting Start: 02-16-2023 End: 02-16-2023 take 1 dose intravenously once 4 mg, Intravenous Push, ONCE, 1 dose, On 02/16/23 at 1000 Start: 02-15-2023 End: 02-15-2023 ONCE PRN, Starting on 02/15/23 at 2116, Until Discontinued Start: 06-14-2021 take 1 tablet by [facility] three times daily as needed for nausea Ondansetron HCl 8 MG 1 tablet as needed for nausea Orally TID for 10 days Med to Bed Upon Discharge DOS: 07/02/2021 May, Active polyethylene glycol 3350 33252 mg powder for oral solution (4 sources) [...] hydrochloride 425 mg extended release oral capsule (17 sources) Antiarrhythmic Start: 02-16-2023 take 425 mg by mouth twice daily 425 mg, Oral, 2 TIMES DAILY, First dose (after last modification) on 02/16/23 at 2100, Until Discontinued Start: 07-05-2022 take 1 capsule by [facility] every twelve hours propafenone 425 mg oral [...] Active Start: 04-29-2022 take 1 capsule by [facility] every twelve hours Propafenone HCl ER 225 MG Oral Capsule Extended Release 12 Hour TAKE 1 CAPSULE EVERY 12 HOURS. Quantity: 180 Refills: 0 Ordered: 29-Apr-2022 Christopher Porter MD Start : 29-Apr-2022 Active new start Prostate Support TABS (10 sources) Prostate Support TABS TAKE 1 TABLET DAILY DIRECTED. Quantity: 0 Refills: 0 Ordered: 21-Mar-2022 DO Active Saw-Vit E-Sod Zed-Ryu-Fndm-Pyg (Prostate Health) 160-100-100 mg-unit-mcg Tablet (2 sources) Start: End: 3 take 1 capsule by mouth once daily Saw-Vit E-Sod Yzw-Dzt-Dokr-Pyg (Prostate Health) 160-100-100 mg-unit-mcg Tablet Discontinued 1 CAP PO Daily July 27, 2017 11:00pm March 11, 2022 5:18pm sennosides, [facility] 8.6 mg oral tablet (1 source) Start: 3 take 8.6 mg by mouth at bedtime 8.6 mg, Oral, AT BEDTIME, First dose on 02/16/23 at 0144, Until Discontinued tamsulosin hydrochloride 0.4 mg oral capsule (6 sources) alpha-Adrenergic Mando Start: 3 take 0.4 mg by mouth once daily 0.4 mg, Oral, DAILY, First dose on 02/18/23 at 1100, Until Discontinued Start: 02-16-2023 End: 02-17-2023 take 0.4 mg by mouth once daily 0.4 mg, Oral, DAILY, First dose on 02/16/23 at 1100, Until Discontinued Tart Bhagat Advanced [...] on Fri02/17/23 at 1600, Until Discontinued Vit C-S.Wmhtgg-Hohkaq-Ezwbn Sd (Tart Bhagat) 86-095-70-75-20 mg Capsule (2 sources) Start: 07-28-2017 End: 08-09-2019 Vit C-S.Iwdjpc-Sovzpa-Esuem Sd (Tart Bhagat) 05-456-65-75-20 mg Capsule Discontinued 1 CAP PO Twice [...] Units/min (9 mL/hr), Intravenous, CONTINUOUS, Starting on Fri02/16/23 at 1930, Until Fri02/18/23 at 1005 (1 source) Start: 02-16-2023 End: 02-18-2023 take 2.2-672.2 mL intravenously every hour 0.01-3 mcg/kg/min 119.5 kg (2.2406-672.1875 mL/hr, rounded to 2.2-672.2 mL/hr), Intravenous, CONTINUOUS, Starting on Fri02/16/23 at 1730, Until Fri02/18/23 at 1005 (1 source) Start: 02-15-2023 End: [...] Resolved: 05-24-2021 Chronic Fracture of lower limb (7 sources) Closed fracture of left femur; Translations: [...] source) Long-term current use of anticoagulant; Translations: [[facility] (current) use of anticoagulants] Episodic Other aftercare (1 source) Surgical follow-up; Translations: [Encounter for other specified surgical aftercare] 03-10-2023 Episodic Other connective tissue disease (8 sources) [...] Severe obesity 01-31-2019 Chronic Pulmonary heart disease (5 sources) Pulmonary hypertension; Translations: [Pulmonary hypertension, unspecified] 02-19-2023 Chronic Screening and history of mental health and substance abuse codes (10 sources) Ex-smoker; Translations: [Personal history of tobacco use] Episodic Comment on above: Quit in 1976; Shock (5 sources) Hemorrhagic shock; Translations: [Other shock] 02-19-2023 [...] 02-13-2021 Episodic Other aftercare (2 sources) 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 3 mg/dL [facility] Chloride [Moles/Vol] 102 mmol/L 98 - 107 mmol/L [facility] CO2 [Moles/Vol] 30 mmol/L 21 - 31 mmol/L [facility] Creatinine [Mass/Vol] 0.64 mg/dL Low 0.70 - 1.30 mg/dL [facility] GFR/1.73 sq M.predicted CKD-EPI (S/P/Bld) [Vol rate/Area] 99 - PINF [facility] Glucose [Mass/Vol] 129 mg/dL High 74 - 109 mg/dL [facility] Interpretation and review of laboratory results Abnormal [facility] Potassium [Moles/Vol] 3.8 mmol/L 3.5 - 5.0 mmol/L [facility] Sodium [Moles/Vol] 136 mmol/L 136 - 145 mmol/L [facility] Urea nitrogen [Mass/Vol] 20 mg/dL 7 - 25 mg/dL [facility] CBC panel Auto (Bld)on 02-25 Erythrocyte distribution width (RBC) [Ratio] 16.3 % High 11.5 - 14.5 % [facility] Hematocrit (Bld) [Volume fraction] 27.5 % Low 41.0 - 53.0 % [facility] Hemoglobin (Bld) [Mass/Vol] 8.9 g/dL Low 13.9 - 16.3 g/dL [facility] Interpretation and review of laboratory results Abnormal [facility] MCH (RBC) [Entitic mass] 30.8 pg 26.0 - 34.0 pg [facility] MCHC (RBC) [Mass/Vol] 32.5 g/dL 32.0 - 35.9 g/dL [facility] MCV (RBC) [Entitic vol] 95 fL 80 - 100 fL [facility] Platelet mean volume (Bld) [Entitic vol] 8.0 fL 7.5 - 11.2 fL [facility] Platelets (Bld) [#/Vol] 376 10*3/uL 150 - 400 K/uL [facility] RBC (Bld) [#/Vol] 2.90 10*6/uL Low [facility] WBC (Bld) [#/Vol] 8.5 10*3/uL 4.5 - 11.5 K/uL [facility] 02-25-2023 Magnesium [Mass/Vol] 1.9 mg/dL 1.6 - 2.8 mg/dL [facility] No Panel Informationon 02-25 Interpretation and review of laboratory results Normal [facility] PHOSPHORUSon 02-25-2023 Phosphate [Mass/Vol] 2.9 mg/dL 2.3 - 4.2 mg/dL [facility] PROTHROMBIN TIME AND INRon 0 02-25-2023 INR Coag (PPP) [Relative time] 1.13 {INR} High 0.90 - 1.10 [facility] Interpretation and review of laboratory results Abnormal [facility] PT Coag (PPP) [Time] 12.6 s [facility] ANTI FXA-LMW HEPARINon 02-24 LMW Heparin Chromogenic method Qn (PPP) 0.32 IU/mL [facility] Basic metabolic 2000 panelon 02-24-2023 Anion gap [Moles/Vol] 9 mmol/L Low 10 - 20 Met [facility] Calcium [Mass/Vol] 7.7 mg/dL Low 8.6 - 10. 3 mg/dL [facility] Chloride [Moles/Vol] 101 mmol/L 98 - 107 mmol/L [facility] CO2 [Moles/Vol] 30 mmol/L 21 - 31 mmol/L [facility] Creatinine [Mass/Vol] 0.60 mg/dL Low 0.70 - 1.30 mg/dL [facility] GFR/1.73 sq M.predicted CKD-EPI (S/P/Bld) [Vol rate/Area] 101 - PINF [facility] Glucose [Mass/Vol] 98 mg/dL 74 - 109 mg/dL [facility] Interpretation and review of laboratory results Abnormal [facility] Potassium [Moles/Vol] 4.0 mmol/L 3.5 - 5.0 mmol/L [facility] Sodium [Moles/Vol] 136 mmol/L 136 - 145 mmol/L [facility] Urea nitrogen [Mass/Vol] 19 mg/dL 7 - 25 mg/dL [facility] CBC panel Auto (Bld)on 02-24 Erythrocyte distribution width (RBC) [Ratio] 15.4 % High 11.5 - 14.5 % [facility] Hematocrit (Bld) [Volume fraction] 25.2 % Low 41.0 - 53.0 % [facility] Hemoglobin (Bld) [Mass/Vol] 8.3 g/dL Low 13.9 - 16.3 g/dL [facility] Interpretation and review of laboratory results Abnormal [facility] MCH (RBC) [Entitic mass] 30.7 pg 26.0 - 34.0 pg [facility] MCHC (RBC) [Mass/Vol] 33.1 g/dL 32.0 - 35.9 g/dL [facility] MCV (RBC) [Entitic vol] 93 fL 80 - 100 fL [facility] Platelet mean volume (Bld) [Entitic vol] 7.6 fL 7.5 - 11.2 fL [facility] Platelets (Bld) [#/Vol] 320 10*3/uL 150 - 400 K/uL [facility] RBC (Bld) [#/Vol] 2.72 10*6/uL Low [facility] WBC (Bld) [#/Vol] 7.6 10*3/uL 4.5 - 11.5 K/uL [facility]-24-2023 Magnesium [Mass/Vol] 1.9 mg/dL 1.6 - 2.8 mg/dL [facility] No Panel Informationon 02-24 Interpretation and review of laboratory results Normal [facility] PHOSPHORUSon 02-24-2023 Phosphate [Mass/Vol] 2.7 mg/dL 2.3 - 4.2 mg/dL [facility] Basic metabolic 2000 panelon 02-23-2023 Anion gap [Moles/Vol] 9 mmol/L Low 10 - 20 Met [facility] Calcium [Mass/Vol] 7.8 mg/dL Low 8.6 - 10. 3 mg/dL [facility] Chloride [Moles/Vol] 99 mmol/L 98 - 107 mmol/L [facility] CO2 [Moles/Vol] 32 mmol/L High 21 - 31 mmol/L [facility] Creatinine [Mass/Vol] 0.59 mg/dL Low 0.70 - 1.30 mg/dL [facility] GFR/1.73 sq M.predicted CKD-EPI (S/P/Bld) [Vol rate/Area] 102 - PINF [facility] Glucose [Mass/Vol] 88 mg/dL 74 - 109 mg/dL [facility] Interpretation and review of laboratory results Abnormal [facility] Potassium [Moles/Vol] 4.0 mmol/L 3.5 - 5.0 mmol/L [facility] Sodium [Moles/Vol] 136 mmol/L 136 - 145 mmol/L [facility] Urea nitrogen [Mass/Vol] 22 mg/dL 7 - 25 mg/dL [facility] CBC panel Auto (Bld)on 02-23 Erythrocyte distribution width (RBC) [Ratio] 15.3 % High 11.5 - 14.5 % [facility] Hematocrit (Bld) [Volume fraction] 26.6 % Low 41.0 - 53.0 % [facility] Hemoglobin (Bld) [Mass/Vol] 8.7 g/dL Low 13.9 - 16.3 g/dL [facility] Interpretation and review of laboratory results Abnormal [facility] MCH (RBC) [Entitic mass] 30.4 pg 26.0 - 34.0 pg [facility] MCHC (RBC) [Mass/Vol] 32.7 g/dL 32.0 - 35.9 g/dL [facility] MCV (RBC) [Entitic vol] 93 fL 80 - 100 fL [facility] Platelet mean volume (Bld) [Entitic vol] 8.7 fL 7.5 - 11.2 fL [facility] Platelets (Bld) [#/Vol] 285 10*3/uL 150 - 400 K/uL [facility] RBC (Bld) [#/Vol] 2.86 10*6/uL Low [facility] WBC (Bld) [#/Vol] 8.2 10*3/uL 4.5 - 11.5 K/uL [facility] MAGNESIUMon 02-23-2023 Magnesium [Mass/Vol] 2.0 mg/dL 1.6 - 2.8 mg/dL [facility] No Panel Informationon 02-23 Interpretation and review of laboratory results Normal [facility] PHOSPHORUSon 02-23-2023 Phosphate [Mass/Vol] 2.6 mg/dL 2.3 - 4.2 mg/dL [facility] ANTI FXA-LMW HEPARINon 02-22 ANTI FXA-LMW HEPARIN ASSAY 0.48 IU/mL Normal [facility] Comment on above: Order Comment: The r ecommended therapeutic range for treatment of thrombosis with Low Molecular Weight Heparin is 0.5 - 1.0 IU/mLThe recommended range for VTE prophylaxis with Low Molecular Weight Heparin is 0.2 - 0.4 IU/mL. Performed By: #### T S #### [facility] [address] [place], [address] LMW Heparin Chromogenic method Qn (PPP) 0.48 IU/mL [facility] BASIC METABOLIC PANELon 01-26 Anion gap [Moles/Vol] 7 mmol/L Low 10-20 [facility] Comment on above: Performed By: #### 8 [id number] #### [facility]UCOSE [facility] [address] [place], [address] Calcium [Mass/Vol] 7.7 mg/dL Low 8.6-10.3 [facility] Comment on above: Result Comment: Note updated reference ranges. Performed By: #### 8 [id number] #### NURSING GLUCOSE PROGRAM [address] [place], [address] Chloride [Moles/Vol] 101 mmol/L Normal 98-107 [facility] Comment on above: Result Comment: Note updated reference ranges. Performed By: #### 8 [id number] #### NURSING GLUCOSE PROGRAM [address] [place], [address] CO2 [Moles/Vol] 33 mmol/L High 21-31 [facility] Comment on above: Result Comment: Note updated reference ranges. Performed By: #### 8 [id number] #### NURSING GLUCOSE PROGRAM [address] [place], [address] Creatinine [Mass/Vol] 0.60 mg/dL Low 0.70-1.30 [facility] Comment on above: Result Comment: Note updated reference ranges. Performed By: #### 8 [id number] #### NURSING GLUCOSE PROGRAM [address] [place], [address] ESTIMATED GFR (CKD-EPI) 101 mL/min/1.73sqm Normal >=60 [facility] Comment on above: Result Comment: 2020 [...] Inclusion of Race in Diagnosing Kidney Disease. [place] Journal of Kidney Diseases 202;79(2):268-88.e1. 2. N Engl J Med 1 Vol. 385 Issue 19 Pages 1148-3572 Performed By: #### 8 2948 #### NURSING GLUCOSE PROGRAM [address] [place], [address] Glucose [Mass/Vol] 105 mg/dL Normal 74-109 [facility] Comment on above: Performed By: #### 8 2948 #### NURSING GLUCOSE PROGRAM [address] [place], [address] Potassium [Moles/Vol] 3.6 mmol/L Normal 3.5-5.0 [facility] Comment on above: Result Comment: Note updated reference ranges. Note updated reference ranges. Performed By: #### 8 [id number] #### NURSING GLUCOSE PROGRAM [address] [place], [address] Sodium [Moles/Vol] 137 mmol/L Normal 136-145 [facility] Comment on above: Result Comment: Note updated reference ranges. Performed By: #### 8 [id number] #### NURSING GLUCOSE PROGRAM [address] [place], [address] Urea nitrogen [Mass/Vol] 23 mg/dL Normal 7-25 [facility] Comment on above: Result Comment: Note updated reference ranges. Performed By: #### 8 [id number] #### NURSING GLUCOSE PROGRAM [address] [place], [address] Basic metabolic 2000 panelon 02-22-2023 Anion gap [Moles/Vol] 7 mmol/L Low 10 - 20 [facility] Calcium [Mass/Vol] 7.7 mg/dL Low 8.6 - 10. 3 mg/dL [facility] Chloride [Moles/Vol] 101 mmol/L 98 - 107 mmol/L [facility] CO2 [Moles/Vol] 33 mmol/L High 21 - 31 mmol/L [facility] Creatinine [Mass/Vol] 0.60 mg/dL Low 0.70 - 1.30 mg/dL [facility] GFR/1.73 sq M.predicted CKD-EPI (S/P/Bld) [Vol rate/Area] 101 - PINF [facility] Glucose [Mass/Vol] 105 mg/dL 74 - 109 mg/dL [facility] Interpretation and review of laboratory results Abnormal [facility] Potassium [Moles/Vol] 3.6 mmol/L 3.5 - 5.0 mmol/L [facility] Sodium [Moles/Vol] 137 mmol/L 136 - 145 mmol/L [facility] Urea nitrogen [Mass/Vol] 23 mg/dL 7 - 25 mg/[facility] CBC panel Auto (Bld)on 02-22 Erythrocyte distribution width (RBC) [Ratio] 15.4 % High 11.5 - 14.5 % [facility] Hematocrit (Bld) [Volume fraction] 23.9 % Low 41.0 - 53.0 % [facility] Hemoglobin (Bld) [Mass/Vol] 8.0 g/dL Low 13.9 - 16.3 g/dL [facility] Interpretation and review of laboratory results Abnormal [facility] MCH (RBC) [Entitic mass] 30.7 pg 26.0 - 34.0 pg [facility] MCHC (RBC) [Mass/Vol] 33.3 g/dL 32.0 - 35.9 g/dL [facility] MCV (RBC) [Entitic vol] 92 fL 80 - 100 fL [facility] Platelet mean volume (Bld) [Entitic vol] 8.7 fL 7.5 - 11.2 fL [facility] Platelets (Bld) [#/Vol] 227 10*3/uL 150 - 400 K/uL [facility] RBC (Bld) [#/Vol] 2.60 10*6/uL Low [facility] WBC (Bld) [#/Vol] 7.6 10*3/uL 4.5 - 11.5 K/uL [facility] COMPLETE BLOOD COUNTon 02-22 Erythrocyte distribution width (RBC) [Ratio] 15.4 % High 11.5-14.5 [facility] Comment on above: Performed By: #### T S #### [facility] [address] [place], [place], Hematocrit (Bld) [Volume fraction] 23.9 % Low 41.0-53.0 [facility] Comment on above: Performed By: #### T S #### [facility] [address] [place], [place], Hemoglobin (Bld) [Mass/Vol] 8.0 g/dL Low 13.9-16.3 [facility] Comment on above: Performed By: #### T S #### [facility] [address] [place] [address], MCH (RBC) [Entitic mass] 30.7 pg Normal 26.0-34.0 [facility] Comment on above: Performed By: #### T S #### [facility] [address] [place] [address], MCHC (RBC) [Mass/Vol] 33.3 g/dL Normal 32.0-35.9 [facility] Comment on above: Performed By: #### T S #### [facility] [address] [place] [address], MCV (RBC) [Entitic vol] 92 fL Normal 80-100 [facility] Comment on above: Performed By: #### T S #### [facility] [address] [place] [address], Platelet mean volume (Bld) [Entitic vol] 8.7 fL Normal 7.5-11.2 [facility] Comment on above: Performed By: #### T S #### [facility] [address] [place] [address], Platelets (Bld) [#/Vol] 227 10*3/uL Normal 150-400 [facility] Comment on above: Performed By: #### T S #### [facility] [address] [place] [address], RBC (Bld) [#/Vol] 2.60 10*6/uL Low 4.50-5.90 [facility] Comment on above: Performed By: #### T S #### [facility] [address] [place], [place], WBC (Bld) [#/Vol] 7.6 10*3/uL Normal 4.5-11.5 [facility] Comment on above: Performed By: #### T S #### [facility] [address] [place], [place], Care Plan Noteon 02-22-2023 Surety Bond Agent Authentication Interface Message Text Problem: Routine Care: [...] and once discontinued Outcome: Progressing Normal [facility] MAGNESIUMon 02-22-2023 Magnesium [Mass/Vol] 2.0 mg/dL Normal 1.6-2.8 [facility] Comment on above: Performed By: #### 8 [id number] #### NURSING GLUCOSE PROGRAM [address] [place], [address] Magnesium [Mass/Vol] 2.0 mg/dL 1.6 - 2.8 mg/dL [facility] No Panel Informationon 02-22 Interpretation and review of laboratory results Normal [facility] PHOSPHORUSon 02-22-2023 Phosphate [Mass/Vol] 2.8 mg/dL Normal 2.3-4.2 [facility] Comment on above: Performed By: #### 8 [id number] #### NURSING GLUCOSE PROGRAM [address] [place], [address] Phosphate [Mass/Vol] 2.8 mg/dL 2.3 - 4.2 mg/dL [facility] BASIC METABOLIC PANELon 01-25 Anion gap [Moles/Vol] 9 mmol/L Low 10-20 [facility] Comment on above: Performed By: #### 8 [id number] #### NURSING GLUCOSE PROGRAM [address] [place], [address] Calcium [Mass/Vol] 7.5 mg/dL Low 8.6-10.3 [facility] Comment on above: Result Comment: Note updated reference ranges. Performed By: #### 8 [id number] #### NURSING GLUCOSE PROGRAM [address] [place], [address] Chloride [Moles/Vol] 100 mmol/L Normal 98-107 [facility] Comment on above: Result Comment: Note updated reference ranges. Performed By: #### 8 [id number] #### NURSING GLUCOSE PROGRAM [address] [place], [address] CO2 [Moles/Vol] 33 mmol/L High 21-31 [facility] Comment on above: Result Comment: Note updated reference ranges. Performed By: #### 8 [id number] #### NURSING GLUCOSE PROGRAM [address] [place], [address] Creatinine [Mass/Vol] 0.65 mg/dL Low 0.70-1.30 [facility] Comment on above: Result Comment: Note updated reference ranges. Performed By: #### [id number] #### NURSING GLUCOSE PROGRAM [address] [place], [address] ESTIMATED GFR (CKD-EPI) 99 mL/min/1.73sqm Normal >=60 [facility] Comment on above: Result Comment: 2020 [...] Inclusion of Race in Diagnosing Kidney Disease. [place] Journal of Kidney Diseases 202;79(2):268-88.e1. 2. N Engl J Med 1 Vol. 385 Issue 19 Pages 0067-7078 Performed By: #### 8 [id number] #### NURSING GLUCOSE PROGRAM [address] [place], [address] Glucose [Mass/Vol] 104 mg/dL Normal 74-109 [facility] Comment on above: Performed By: #### 8 [id number] #### NURSING GLUCOSE PROGRAM [address] [place], [address] Potassium [Moles/Vol] 3.5 mmol/L Normal 3.5-5.0 [facility] Comment on above: Result Comment: Note updated reference ranges. Note updated reference ranges. Performed By: #### 8 [id number] #### NURSING GLUCOSE PROGRAM [address] [place], [address] Sodium [Moles/Vol] 138 mmol/L Normal 136-145 [facility] Comment on above: Result Comment: Note updated reference ranges. Performed By: #### 8 [id number] #### NURSING GLUCOSE PROGRAM [address] [place], [address] Urea nitrogen [Mass/Vol] 24 mg/dL Normal 7-25 [facility] Comment on above: Result Comment: Note updated reference ranges. Performed By: #### 8 [id number] #### NURSING GLUCOSE PROGRAM [address] [place], [address] BLOOD CULTUREon 02-21-2023 Bacteria identified Cx Nom (Bld) No Growth [facility] Interpretation and review of laboratory results Normal [facility] metabolic 2000 panelon 02-21-2023 Anion gap [Moles/Vol] 9 mmol/L Low 10 - 20 [facility] Calcium [Mass/Vol] 7.5 mg/dL Low 8.6 - 10. 3 mg/dL [facility] Chloride [Moles/Vol] 100 mmol/L 98 - 107 mmol/L [facility] CO2 [Moles/Vol] 33 mmol/L High 21 - 31 mmol/L [facility] Creatinine [Mass/Vol] 0.65 mg/dL Low 0.70 - 1.30 mg/dL [facility] GFR/1.73 sq M.predicted CKD-EPI (S/P/Bld) [Vol rate/Area] 99 - PINF [facility] Glucose [Mass/Vol] 104 mg/dL 74 - 109 mg/dL [facility] Interpretation and review of laboratory results Abnormal [facility] Potassium [Moles/Vol] 3.5 mmol/L 3.5 - 5.0 mmol/L [facility] Sodium [Moles/Vol] 138 mmol/L 136 - 145 mmol/L [facility] Urea nitrogen [Mass/Vol] 24 mg/dL 7 - 25 mg/dL [facility] CBC panel Auto (Bld)on 02-21 Erythrocyte distribution width (RBC) [Ratio] 14.5 % 11.5 - 14.5 % [facility] Hematocrit (Bld) [Volume fraction] 21.8 % Low 41.0 - 53.0 % [facility] Hemoglobin (Bld) [Mass/Vol] 7.6 g/dL Low 13.9 - 16.3 g/dL [facility] Interpretation and review of laboratory results Abnormal [facility] MCH (RBC) [Entitic mass] 31.5 pg 26.0 - 34.0 pg [facility] MCHC (RBC) [Mass/Vol] 34.6 g/dL 32.0 - 35.9 g/dL [facility] MCV (RBC) [Entitic vol] 91 fL 80 - 100 fL [facility] Platelet mean volume (Bld) [Entitic vol] 8.3 fL 7.5 - 11.2 fL [facility] Platelets (Bld) [#/Vol] 199 10*3/uL 150 - 400 K/uL [facility] RBC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 Interpretation Code 8.0-15.0 [facility] Comment on above: Performed By: #### 2 [id number] #### [facility] Laboratory [address] [place] [address] POCT PT/INRon 05-21-2022 POCT INR 3.1 High .7-1.2 [facility] Comment on above: Performed By: #### 1 [id number], [id number], [id number] #### [facility] Laboratory [address] [place] [address] POCT PT 33.1 second(s) High 8.0-15.0 [facility] Comment on above: Performed By: #### 1 [id number], [id number], [id number], [id number] #### [facility] [address] [place] [address] POCT PT/INRon 05-14-2022 POCT INR 3.2 High .7-1.2 [facility] Comment on above: Performed By: #### 2 [id number] ####[facility] [address] [place] [address] POCT PT 34.5 second(s) High 8.0-15.0 [facility] Comment on above: Performed By: #### 2 [id number] ####[facility] [address] [place] [address] POCT INR Error Invalid Interpretation Code .7-1.2 [facility] Comment on above: Performed By: #### 2 [id number] #### [facility] Laboratory [address] [place] [address] POCT PT Strip Error Invalid Interpretation Code 8.0-15.0 [facility] Comment on above: Performed By: #### 2 [id number] #### [facility] Laboratory [address] [place] [address] Falls Screening (Age 18+)on 05-02-2022 Fall risk assessment a) No falls within the last year -[facility] 600 DO Work Phone: Progress Note-Physicianon Progress [...] stroke: no 4. Serious co-morbid conditions (recent VA, anemia with Hct <30%, CRI with SCr > 1.5, DM): no Score = 1/4 Risk (low = 0, mod = 1-2, high = 3-4): Health Status Allergies: Allergic Reactions (Selected) No Known Medication Allergies, Allergies (1) Active Reaction No Known Medication Allergies None Documented Current medications: (Selected) Prescriptions Prescribed MDI spacer adult: 1 EA, Inhalation, As Directed, 1 EA, Refill(s) 0 Loleta 325 mg-5 mg oral tablet: 1 tab(s), [...] spacer adult 1 EA, Inhalation, As Directed Loleta 325 mg-5 mg oral tablet 1 tab(s), PRN, Oral, q6hr Ventolin HFA 90 mcg/inh inhalation aerosol with adapter 2 puff(s), PRN, Inhalation, q6hr Coumadin , No qualifying data available Problem list: All Problems HTN (hypertension) / SNOMED CT 7521984014 / Confirmed Class 3 severe obesity with body mass index (BMI) of 40.0 to 44.9 in adult / SNOMED CT 3907945654 / Confirmed Resolved: Cancer of prostate / SNOMED CT 0353477723, Active Problems (2) Class 3 severe obesity [...] stroke: no 4. Serious co-morbid conditions (recent VA, anemia with Hct <30%, CRI with SCr > 1.5, DM): no Score = 1/4 Risk (low = 0, mod = 1-2, high = 3-4): Normal [facility] Comment on above: Result Comment: Elec tronically Signed By: Rain ORDOÑEZ, Mae\.carol\Date and Time Signed: 04/30/22 14:01 EST Office [...] therapy and has been managed by the [facility] Coumadin clinic. He says he is [...] Recorded: 29Apr2022 11:48AM Heart Rate60, R Radial Qptbpjla423 Dabyxayti43 Height5 ft 6 in Vkkupa979 lb 6 oz BMI Znchbywmdh19.09 kg/m2 BSA Calculated2.19 Tobacco Useb) No Falls Screening (Age 18+)a) No falls within the last year Physical Exam Constitutional: alert and in no acute distress. Eyes: no erythema, swelling or discharge from the eye . Neck: neck i (more content not included)... Normal [facility] Tobacco Screening.on 023 Fall risk assessment a) No falls within the last year [facility] 600 DO Work Phone: Tobacco use status CPHS b) No [facility] 600 DO Work Phone: POCT PT/INRon 04-19-2022 POCT INR 1.7 High .7-1.2 [facility] Comment on above: Performed By: #### 1 [id number], [id number], [id number] #### [facility] Laboratory [address] [place] [address] POCT PT 19.1 second(s) High 8.0-15.0 [facility] Comment on above: Performed By: #### 1 [id number], [id number], [id number], [id number] #### [facility] Laboratory [address] [place] [address] Coding Summary.on 04-08-2022 Coding Summary. CD:[id number] G h0bWw+PGhlYWQ+QX9EKJO zA71sbUInxG8WA9eGKU5U UPZWEKQMWT5AOL4vtDZ0U OstY7MgdiCy MviceSTaDQ88SEp0WDL7e DxsCDwcyB1ldYBrF2u5Ik MmVZ47eS91LVrzTOAlEkC 3LjZpbjsgbWFy Y0vmFlBkzNPtTzz+PHRhY mxlIHdpZHRoPScxMDAlJy QlaQybDK4gAw2zJNPuQOY vbGxhcHNlOiBj t2yuUCHnEFzxDR7puOjrW 9PvdLM3MROlz0o1Nm65iG I+EOTqUEZ0rQrwXJnyz44 6JlKru8msKFD2 sCPnYXfkXHH7Y86ot1H9L JUlDBXaVEA4wJE1aJ5hoV yglzixJ5GncGUmSiQ4MEZ 2bTMrvI7mrPfg ubqnhE1rAdk+L23TBY2AH CZAOF7DRcc7Q0SsTzmpqS I+RM91LQLcFC39fHQtpKC bm1antUr9OtZc ZAXyXAJ2pTvqZRbep0YfE DNnM07niKZxf7G0LVZeaE yrmLHgYaRxsLR9lF1wHYl uemhob8evlfmh Ujqrn4igyh34lZ15X59cW VjgEUAjCLX2UMOvZTQdnB xzti2wlE3dMk4+WOewu2k hs1clkHw3JzEj BXWlgwAruVcwMWQ2r8UkF i08G5FrpIfmi1XaAvt9qe 42uYNoa0S9oVG5WNajYYY cxD7vYIbdHiF6 DLPeDrLmzN36bCJjXTokC r6yfAmziWemYT0wBALzmb fnBQXjjR1sBIGmiXVllKs gHK9hDESzdipj b098NbLcVEI4AFEkvYAhF 0CcfH9gZjUdKAWlLRZuX8 DymNQuERzpV503CNsfTaC 1NCXhkhLsR8Kq PBOwtCfwSlQ5f0H0Hf1Wi 4BmpfmpBON2FSiqKGDvAx VcOqLxKdA8W9FvHir4NVU lpMyxFK8oR2Xp QVXpgfrpuazryUE6KQMbB NHimH65kMKrZTurZi9dr4 P2d599VXYqPDOheI66Ax7 udDogMTBwdCBU kS7olhvls7qyppbrCrQtF HIoLLt8DPu7HWHsdXmyLs PxIRX0NfV3GZP6ePBmwK3 skKgrpofuhL5f Oyc+E27fmQ5lLJW6SUV9w dxrZRAqipWvPU10JQ98Z9 RyPjwvdGFibGU+PGRpdiB qpIisSP6mMgJj b6pxt5DhLYznA9VpKQJzQ ZjmAop0FNPdASR5xTL0nF 3kVKPwJTcjx9C9oUH2R2V voqMepl5jj0bf RJGsUWbnY96yoWYmq2D1L LIadEH4VKFmyZgpSxFohZ 93Oyc+UVTmrHmib5TiCdv mg0zoo9kliVe5 JjTjGLAecmCfuNxqYUZ6k 4CiGf65D44sRTxxAKHxIZ RgFCHwJOWymSndgb6gqU6 wIi8+PGNvbCB3 vRJ0eC6hUTFgAcC5UEtbE 948QgEdrUUdCrohc5htg6 rfvQq8JfHlFFZbvwQwsVg vAOR4r1YkDh34 G91mHNieTNDiZRRcYQKsK PAzxTefmi2zjE0mXx2+PC 2rw6ypfe84xO44wWD+PHR tOCR2zAgvDNgd SZKhgW8yKXusOkQ7YJGpE aRayH76sCAxMDikPk2feO skzYobNL7xMJOyxsfsg13 0QsMbi4ouVCAx aJQvOSjvSDN3N31kc6N1P PYbWKMcMDO6iEH1nJ2tcA lnbjogbGVmdDsgdmVydGl dHGouREtuO314 IHRvcDsnPlBhdGllbnQgT eWcCHi2R6HxGiy3GHEriO ojJU3lqWKuAFrkEc3trNl kbUhaVB9qCLXx lidhz484NsVqk0sgAJOva SQpZYwbWDR0Q44kj2Q8ZK IaNZYyYDJ9zSG9qQ9tvBq nbjogbGVmdDsg ccWvmOuxTHrdBJekU973E HRvcDsnPkJpcnRoIERhdG I8YM53GH39nMWsr8K3qYP 6G9HdQTYsucgf ptowxJS3VXFhSKMoeA18M p6ckZxkMr0hHMFzATM2FJ XnkUGlW6TjdY0cRfJyHMV dQFJeK6DizRWi RHooA903ZYhmIpJ8BMQrv rMiP2CzLUGnlQzoQdY0b7 H9Kr7II2K7HC54ZR38bKQ nv6M7dBJ9B4Bi JYEosglpalvxqZA0ZDEtI HWtkA60Ct2bnMyiNy5jYQ YrMPU5VMDsjXUmJ0ScsG0 yOiAjMDAwMDAw X3PgvVFkMLavB988MDisC tL7NMAirzTpU0QiMHTerI crYcU0d0Q9Jt7INOj4PB1 0XK42fLCke5N0 tOY3M8AlWSMnzjkhgzezf GC2OYUbXWHylY68No5tmW gzKl3eXXSpSIG5EGGsjXZ sC9PgeI4iOiCd IJNnNPQoO9SoyYNwMQiaB 567PDecGeZ1WPUiymQvK8 XxPLFqeGyyCaD7k3B1Nf3 CYGVbAY01WNI5 mZT6MM81GN58Z6SfWtoge GFibGU+PHRhYmxlIHdpZH RoPScxMDAlJyBzdHlsZT0 mZu3rWFLbKHOq rXzlcYQzZfRbp0qqJUMeQ MibJB4obYzgH1NimBU5QR Ogl2i1Gx03C44pP8AxsJO +LZEzsYZ8iAK6 zR9sPyYeAnM1KIppB441T cCxdNFuUpquc8gos0xgpX w2CeZ1DOPcxaRzzZbnNJP 9f0EjGf84Z52t IHdpZHRoPSIxNSUiIHZhb Mavbb0yfE5qDb5+PGNvbC K7wTN1lY8pEiDzLeB5QFl oY424SlZvkTAu Uehdk8hhw6tehIe4LzSdA SBctdPutJlmLHJ0w1McEx 16Y3IapOeyi2ZfSjr5zl6 5aJPkv7J5xIM0 T9UnFSBhwkujkMYseTifW P5hAVBqzvmwZMBqjA4lVQ HrT0i1VrRxAfS0GYchD1F nxzZ1MSIjpZPx KYncYTZ8J15cj0H8LUOmY GVxWJB4hZT0yB5ssCwycw ogbGVmdDsgdmVydGljYWw nVBsqK636TJMv gPnjTVVdpV3oQKShmTKty PpsON0uPPAdurreWdGMUl PTBVjeYMRVFlwXBZl9G7P sFja3UWMiqZsw JT9xxSEcLLwcMi6gxBmll ScmNJ6fYDPxblerGVUirA 5kSOIfkKWcjMkgIG5cUOQ mwshrj882WiCy GIM2ORGsvVUiI1MywY5mU jOwDXBrOKWlM3AlrHQaMF yrI168VVimCzX0FTYbkcN zJ9MxHCIjmTok NtA8d4V5Sb9wFP1pGJ2fL LL8VN20PA44jKLaf9H9jB F9N7VwZNIwgamswjknnSM 4SMOsCVVrmH00 xFPsFJvvTx9ab5V0c735L UZuALMofY76Fa1sgYcwJH LgaBHBpG1yeicxx1kvykx gIzAwMDAwMDt0 EXq9NCBroTmzRePtWXG8P aU2CBL9hXXoqV8vlHnvwb ryjX8gWfc+NzMgWWVhcnM 8O3TnSbh9VNSg iPbwMR1tiJQpMTwtIq3kg AstrJxvLI4mAFXhkqtbJG JsrX2nENMadMQtpKbdZM5 nLIZrlzgni301 IdVeXEI6DNWytIOyP6Era I9zLlTfNZDoFPEqK6JynW XkMZfxP418VUsuBfK9BCT ruzYkR0SnECBc pEezQmF4g7D5Ye9XWJktM F97WK68mTVsk7R8xAJ1K0 MiTCOynakhtoyooOB7GJC dIFDpsK20bPTs ZVcqMa2er7N9y592YRTeR SLsxW25Xq3crMhbAJRciE NRbE9vhccus3vfrfzjLqS qQFXgJIy8TNj9 FXZtqHsdGgKgGFS4WjC5N ZY8cGBklB1uhExnhubrhU 9wOyc+XjWugAHjqK9uMA0 8MW12B2LpPdew dGFibGU+PHRhYmxlIHdpZ HRoPScxMDAlJyBzdHlsZT 9yCs8pCPZeDTTeeZoiyKG wXkWxr4ydVNKk XYzuAK8omKnsR0LvjIM1W TZtp8t3In97R40rO4JprR A+QWYkpRE6dUW7mV1zEeU bAuY8LXjbW722 OqYdsCAeIdgiv2ief4yts Xi3XmLvFNPidxZtmCmcJX E2t2TfSv11A03jBSkvASF oPSIyMCUiIHZh kQzmyy9rnI1dDf8+PGNvb GA4fLH4wM6wOoZtZjW9XJ vpU660UdEluPVzNnnbY83 nV5FyyQX+PHRy Vmz6LJZyjKwiQS5saHBtO NisOw2wTYC7CjHjTnBmXG kaX8NmWLRoepicfhnmgWP 1JYZqEKUhzP77 Qi5buHvlRj5fFILkQID9G EMtxZIhR4MqfW0uKaHaJR SmYUHhY4DaiBEtMCuzH76 4DHzrStK8UZMp njHkD4EsYWNszPnqDtQ9h 7D4Kg5FzArgjFSuSH9iPz TkTFs0R3InHok6CXJyqDg aJH0uwWBsKDhh Oy4xvMqpzOqtYJ0lYQUuu xkfp541JdYjs1qcBUEcgO AzTYqiSQZ7J51jd5P7CEN yDSOpZHJ2wZX3 yP6mdAorcpjunJPhuPpjy mEtiXmuDHmhSEkuZ489NJ UdeOdlWxCQTqf5K0GsCxl 7FASgeAruQF5u cOJuQWsfLo4riRpinDqdP D6kCNVwkrsns091LlNwp2 jbBHXseGMcDBaoHHR8X79 tu3N0INWoRYEv JFI2wCF2uT2rsZuverdhg GVmdDsgdmVydGljYWwtYW kjP646YYAojKokUs6BQoz 7F5DtPdc1PMNk pQssXE1hrSKrVTneVg6ot VrlySznHE0bAPBxntskk6 06CiZgh4guUBBvvJLxWGt iSFV2J56zz6M2 WQSjODUrCNN3dQD6dT2pn GlnbjogbGVmdDsgdmVydG mlJCceBAuwB758CEIyhBk nPlBheWVyOjwv dGQ+SA11md45H9TcJbzhX pl1MHCdHZU9bJW6vQ3dVK GeKQxbz8I7eNK3J2FpqmC ons5rt4ljJTAu ZTog (more content not included)... Normal [facility] POCT PT/INRon 04-05-2022 POCT INR 1.3 High .7-1.2 [facility] Comment on above: Performed By: #### 2 [id number] #### [facility] Laboratory [address] [place] [address] POCT PT 15.0 second(s) Normal 8.0-15.0 [facility] Comment on above: Performed By: #### 2 [id number] #### [facility] [address] [place] [address] POCT INR Error Invalid Interpretation Code .7-1.2 [facility] Comment on above: Performed By: #### 1 [id number], [id number] #### [facility] [address] [place] [address] POCT PT Strip Error Invalid Interpretation Code 8.0-15.0 [facility] Comment on above: Performed By: #### 1 [id number], [id number] #### [facility] [address] [place] [address] POCT INR Error Invalid Interpretation Code .7-1.2 [facility] Comment on above: Performed By: #### 1 [id number], [id number], [id number], [id number] #### [facility] [address] [place] [address] POCT PT Strip Error Invalid Interpretation Code 8.0-15.0 [facility] Comment on above: Performed By: #### 1 [id number], [id number], [id number], [id number] #### [facility] [address] [place] [address] Physician Orderon 04-01-2022 Physician Order [id number]# 1.00CD:127 Normal [facility] Consent for Treatmenton Consent for Treatment [id number] .[id number]:127 Normal [facility] POCT PT/INRon 03-29-2022 POCT INR 1.3 High .7-1.2 [facility] Comment on above: Performed By: #### 2 [id number] #### [facility] [address] [place] [address] POCT PT 14.2 second(s) Normal 8.0-15.0 [facility] Comment on above: Performed By: #### 2 [id number] #### [facility] [address] [place] [address] [facility] echo transthoracicon [facility] echo transthoracic [address] [address] Echocardiogram Signed Patient: Fredrick Stroud MR#: [id number] 427 : 1950 Acct:[id number] Age/Sex: 71 / M ADM Date: 03/27/22 Loc: Room: Type: [facility] Attending Dr: Sejal Link [employer]ING [employer]ACHINE [employer]EDER-C Ordering Provider: Sejal Link APRN Date of Service: 03/27/22/ ECH/ECH echo transthoracic: Afib. SOB. HTN. Copies to: LUCY Hankins MD, [facility] BSA: 2.2 m2 BP: 125/82 mmHg HR: [...] cm/sec TR max P.0 mmHg Transcribed By: HARRIET Performed At: 03/27/22 1449 Signed By: Love Gaviria MD, [facility] 03/27/22 1557 Normal [facility] Free T4 (Free Thyroxine)on 0 03-27-2022 Free T4 [Mass/Vol] 1.01 ng/dL Normal 0.61-1.12 [facility] Comment on above: Order Comment: Reaso n for Exam Atrial fibrillation;Essential hypertension Performed By: #### C BC, CMP, HS TROP, BNP #### [facility] [address] TSH DL <= 0.005 mIU/L QnOrde red By: Sejal Link on 03-27-2022 TSH Qn 2.57 m[IU]/L 0.45-5.33 [facility] Thyroid Stimulating Hormoneo n 03-27-2022 TSH Qn 2.57 m[IU]/L Normal 0.45-5.33 [facility] Comment on above: Order Comment: Reaso n for Exam Atrial fibrillation;Essential hypertension Result Comment: PERF ORMED BY: [place] [address] PATHOLOGIST AGING ROOM OPERATOR EYAD HOWARD M.D. Performed By: #### C BC, CMP, HS TROP, BNP #### [facility] [address] [place] [address] [place] Thyroxine (T4) free [Mass/vo lume] in Serum or PlasmaOrdered By: Sejal Link on 03-27-2022 Free T4 [Mass/Vol] 1.01 ng/dL 0.61-1.12 [facility] Triiodothyronine (T3) Freeon 03-27-2022 Triiodothyronine (T3) Free 3.17 pg/mL Normal 2.50-3.90 [facility] Comment on above: Order Comment: Reaso n for Exam Atrial fibrillation;Essential hypertension Result Comment: PERF ORMED BY: [facility] [address] [place] [address] PATHOLOGIST AGING ROOM OPERATOR EYAD HOWARD M.D. Performed By: #### C BC, CMP, HS TROP, BNP #### [facility] [address] [place] [id number] [facility] Triiodothyronine (T3) Free [ Mass/volume] in Serum or PlasmaOrdered By: Sejal Link on 03-27-2022 Free T3 [Mass/Vol] 3.17 pg/mL 2.50-3.90 [facility] Office Visit (Cardiology)on 03-21-2022 Follow-up visit Diagnoses/Problems [...] Goal 2.0-3.0. Patient would like managed with [facility] Coumadin clinic Follow up in 2 months [...] which include rate control with anticoagulation versus mu-ism of maintenance of sinus rhythm. After discussing [...] Signs Recorded: 21Mar2022 02:26PM Heart Rate67, Apical Tceohfzq157, RUE, Bcumjyz630, LUE, Sitting Giubddrxl41, RUE, Hmbjtsb53, LUE, Sitting He (more content not included)... Normal [facility] Albumin [Mass/volume] in Ser um or PlasmaOrdered By: Yo Blood on 03-11-2022 Albumin [Mass/Vol] 4.1 g/dL 3.2-5.5 [facility] B-Type Natriuretic Peptideon 03-11-2022 Natriuretic peptide B (Bld) [Mass/Vol] 101.0 pg/mL High 5-100 [facility] Comment on above: Result Comment: PERF ORMED BY: [place] [address] PATHOLOGIST AGING ROOM OPERATOR EYAD HOWARD M.D. Performed By: #### C BC, CMP, HS TROP, BNP #### [address] Basophils Auto (Bld) [#/Vol] Ordered By: Yo Blood on 03-11-2022 Basophils (Bld) [#/Vol] 0.0 10*3/uL 0.0-0.2 [facility] Basophils/100 WBC Auto (Bld) Ordered By: Yo Blood on 03-11-2022 Basophils/100 WBC (Bld) 1.1 % . [facility] COVID-19 Antigenon 3 COVID-19 Antigen Healthcare [...] developed and its performance characteristic determined by Dials and validated at [facility]. This test has not been FDA [...] for SARS Antigen by OLY PERFORMED BY: [facility] [address] [place] [address] PATHOLOGIST AGING ROOM OPERATOR EYAD HOWARD M.D. [facility] Comment on above: Performed By: #### C OVID-19 GERTRUDE SOFIANEG #### [facility] [address] COVID-19 SOFIAOrdered By: Buster Blood on 03-11-2022 SARS-CoV+SARS-CoV-2 (COVID-19) Ag IA.rapid Ql (Resp) Negative Negative [facility] Comment on above: This is a duplicate Gertrude SARS Antigen (OLY) result to be used for statistical tracking purpose only. Complete Blood Count Auto Di ffon 03-11-2022 Basophils (Bld) [#/Vol] 0.0 10*3/uL Normal 0.0-0.2 [facility] Comment on above: Result Comment: PERF ORMED BY: [place] [address] PATHOLOGIST AGING ROOM OPERATOR EYAD HOWARD M.D. Performed By: #### C BC, CMP, HS TROP, BNP #### [address] Basophils/100 WBC (Bld) 1.1 % Normal . [facility] Comment on above: Performed By: #### C BC, CMP, HS TROP, BNP #### [address] Eosinophils (Bld) [#/Vol] 0.0 10*3/uL Normal 0.0-0.45 [facility] Comment on above: Performed By: #### C BC, CMP, HS TROP, BNP #### [address] Eosinophils/100 WBC (Bld) 0.4 % Normal . [facility] Comment on above: Performed By: #### C BC, CMP, HS TROP, BNP #### [address] Erythrocyte distribution width (RBC) [Ratio] 14.0 % Normal 12.0-14.8 [facility] Comment on above: Performed By: #### C BC, CMP, HS TROP, BNP #### [address] Hematocrit (Bld) [Volume fraction] 46.7 % Normal 38.8-50.0 [facility] Comment on above: Performed By: #### C BC, CMP, HS TROP, BNP #### [address] Hemoglobin (Bld) [Mass/Vol] 15.3 g/dL Normal 13.0-17.0 [facility] Comment on above: Performed By: #### C BC, CMP, HS TROP, BNP #### [address] Lymphocytes (Bld) [#/Vol] 1.1 10*3/uL Normal 1.00-4.8 [facility] Comment on above: Performed By: #### C BC, CMP, HS TROP, BNP #### [address] Lymphocytes/100 WBC (Bld) 29.0 % Normal . [facility] Comment on above: Performed By: #### C BC, CMP, HS TROP, BNP #### [address] MCH (RBC) [Entitic mass] 29.4 pg Normal 27.5-35.2 [facility] Comment on above: Performed By: #### C BC, CMP, HS TROP, BNP #### [address] MCV (RBC) [Entitic vol] 89.6 fL Normal 83.5-101 [facility] Comment on above: Performed By: #### C BC, CMP, HS TROP, BNP #### [address] Mean Corpuscular HGB Conc 32.8 g/dL Normal 32.5-35.6 [facility] Comment on above: Performed By: #### C BC, CMP, HS TROP, BNP #### [place] [address] [place] Monocytes (Bld) [#/Vol] 0.8 10*3/uL Normal 0.0-0.8 [facility] Comment on above: Performed By: #### C BC, CMP, HS TROP, BNP #### [address] Monocytes/100 WBC (Bld) 20.67 % High 0.00-20.00 [facility] Comment on above: Result Comment: For adults in ED, MDW > 20.0 may be associated with a higher risk of sepsis during the first 12 hrs of hospital admission Performed By: #### C BC, CMP, HS TROP, BNP #### [facility] [address] Monocytes/100 WBC (Bld) 20.9 % Normal . [facility] Comment on above: Performed By: #### C BC, CMP, HS TROP, BNP #### [facility] [address] Neutrophils (Bld) [#/Vol] 1.8 10*3/uL Normal 1.8-7.7 [facility] Comment on above: Performed By: #### C BC, CMP, HS TROP, BNP #### [address] Neutrophils/100 WBC (Bld) 48.6 % Normal . [facility] Comment on above: Performed By: #### C BC, CMP, HS TROP, BNP #### [address] NRBC% 0.2 /100{WBC} Normal 0-0.5 [facility] Comment on above: Performed By: #### C BC, CMP, HS TROP, BNP #### [address] Platelet mean volume (Bld) [Entitic vol] 8.5 fL Normal 6.6-10.1 [facility] Comment on above: Performed By: #### C BC, CMP, HS TROP, BNP #### [place] [address] [place] Platelets (Bld) [#/Vol] 197 10*3/uL Normal 150-450 [facility] Comment on above: Performed By: #### C BC, CMP, HS TROP, BNP #### [place] [address] [place] RBC (Bld) [#/Vol] 5.21 10*6/uL Normal 3.90-5.60 [facility] Comment on above: Performed By: #### C BC, CMP, HS TROP, BNP #### [address] WBC (Bld) [#/Vol] 3.7 10*3/uL Low 4.1-10.5 [facility] Comment on above: Performed By: #### C BC, CMP, HS TROP, BNP #### [address] Comprehensive Metabolic Pane rigo 03-11-2022 Albumin [Mass/Vol] 4.1 g/dL Normal 3.2-5.5 [facility] Comment on above: Performed By: #### C BC, CMP, HS TROP, BNP #### [address] Albumin/Globulin [Mass ratio] 1.5 {ratio} Normal [facility] Comment on above: Performed By: #### C BC, CMP, HS TROP, BNP #### [address] ALP [Catalytic activity/Vol] 79 U/L Normal 32-92 [facility] Comment on above: Performed By: #### C BC, CMP, HS TROP, BNP #### [address] ALT [Catalytic activity/Vol] 23 U/L Normal 10-60 [facility] Comment on above: Performed By: #### C BC, CMP, HS TROP, BNP #### [address] Anion gap [Moles/Vol] 13.7 mmol/L Normal 6.0-15.0 [facility] Comment on above: Performed By: #### C BC, CMP, HS TROP, BNP #### [address] AST [Catalytic activity/Vol] 32 U/L Normal 10-42 [facility] Comment on above: Performed By: #### C BC, CMP, HS TROP, BNP #### [address] Bilirubin [Mass/Vol] 0.6 mg/dL Normal 0.3-1.2 [facility] Comment on above: Performed By: #### C BC, CMP, HS TROP, BNP #### [facility] [address] Calcium [Mass/Vol] 9.2 mg/dL Normal 8.2-10.2 [facility] Comment on above: Performed By: #### C BC, CMP, HS TROP, BNP #### [facility] [address] Chloride [Moles/Vol] 98 mmol/L Normal 95-114 [facility] Comment on above: Performed By: #### C BC, CMP, HS TROP, BNP #### [facility] [address] CO2 [Moles/Vol] 29.0 mmol/L Normal 22.0-30.0 [facility] Comment on above: Performed By: #### C BC, CMP, HS TROP, BNP #### [facility] [address] Creatinine [Mass/Vol] 0.86 mg/dL Normal 0.64-1.27 [facility] Comment on above: Performed By: #### C BC, CMP, HS TROP, BNP #### [address] Creatinine Clr Calc Pharmacy 91.63 [facility] Comment on above: Result Comment: PERF ORMED BY: [place] [address] PATHOLOGIST AGING ROOM OPERATOR EYAD HOWARD M.D. Performed By: #### C BC, CMP, HS TROP, BNP #### [facility] [address] [place] [address] Estimated GFR ( Jessica > 60 Normal [facility] Comment on above: Result Comment: GFR estimated reference range: According to KDOQI guidelines, <60 ml/min/1.73m2 is sufficient to diagnose a patient with chronic kidney disease. Performed By: #### C BC, CMP, HS TROP, BNP #### [facility] [address] Estimated GFR (Non- Am > 60 Normal [facility] Comment on above: Performed By: #### C BC, CMP, HS TROP, BNP #### [facility] [address] Globulin (S) [Mass/Vol] 2.8 g/dL Normal [facility] Comment on above: Performed By: #### C BC, CMP, HS TROP, BNP #### [facility] [address] Glucose [Mass/Vol] 91 mg/dL Normal 70-100 [facility] Comment on above: Result Comment: [place] Glucose Reference Range is dependent on time and content of last meal. Glucose of more than 200 mg/dL in a nonstressed, ambulatory subject supports the diagnosis of Diabetes Mellitus. ADA recommended reference range Performed By: #### C BC, CMP, HS TROP, BNP #### [facility] [address] Potassium [Moles/Vol] 3.7 mmol/L Normal 3.5-5.1 [facility] Comment on above: Performed By: #### C BC, CMP, HS TROP, BNP #### [facility] [address] Protein [Mass/Vol] 6.9 g/dL Normal 6.1-7.9 [facility] Comment on above: Performed By: #### C BC, CMP, HS TROP, BNP #### [facility] [address] [place] [address] [place] Sodium [Moles/Vol] 137 mmol/L Normal 136-146 [facility] Comment on above: Performed By: #### C BC, CMP, HS TROP, BNP #### [facility] [address] Urea nitrogen [Mass/Vol] 10 mg/dL Normal 9-23 [facility] Comment on above: Performed By: #### C BC, CMP, HS TROP, BNP #### [facility] [address] [place] [address] Creatinine and Glomerular fi ltration rate.predicted panel (S/P/Bld)Ordered By: Yo Blood on 03-11-2022 Creatinine [Mass/Vol] 0.86 mg/dL 0.64-1.27 [facility] ECG 12 lead ECGon 03-11-2022 ECG 12 lead ECG [facility] Main [place] [id number] Electrocardiograph Report Signed Patient: Fredrick Stroud MR#: [id number] 427 : 1950 Acct:[id number] Age/Sex: 71 / M ADM Date: 03/11/22 [...] voltage QRS Confirmed by Yo BLOOD DO ([id number]) on 03/11/2022 9:03:33 PM Referred By: Electronically Signed By:Yo BLOOD DO Transcribed By: MUS Signed By Yo Blood DO 0 03/11/222102 Normal [facility] ECG 12 lead ECG [facility] Main [place] [id number] Electrocardiograph Report Signed Patient: Fredrick Stroud MR#: [id number] 427 : 1950 Acct:[id number] Age/Sex: 71 / M ADM Date: 03/11/22 [...] voltage QRS Confirmed by Yo BLOOD DO ([id number]) on 03/11/2022 7:52:28 PM Referred By: Electronically Signed By:Yo BLOOD DO Transcribed By: MUS Signed By Yo Blood DO 0 03/11/221951 Normal [facility] Eosinophils Auto (Bld) [#/Vo l]Ordered By: Yo Blood on 03-11-2022 Eosinophils (Bld) [#/Vol] 0.0 10*3/uL 0.0-0.45 [facility] Eosinophils/100 WBC Auto (Bl d)Ordered By: Yo Blood on 03-11-2022 Eosinophils/100 WBC (Bld) 0.4 % . [facility] Erythrocyte distribution wid th Auto (RBC) [Ratio]Ordered By: Yo Blood on 03-11-2022 Erythrocyte distribution width (RBC) [Ratio] 14.0 % 12.0-14.8 [facility] Estimated glomerular filtrat ion rate (GFR) non- AmericanOrdered By: Yo Blood on 03-11-2022 GFR/1.73 sq M.predicted among non-blacks MDRD (S/P/Bld) [Vol rate/Area] > 60 mL/Min [facility] Globulin Calc (S) [Mass/Vol] Ordered By: Yo Blood on 03-11-2022 Globulin (S) [Mass/Vol] 2.8 g/dL [facility] Hematocrit Auto (Bld) [Volum e fraction]Ordered By: Yo Blood on 03-11-2022 Hematocrit (Bld) [Volume fraction] 46.7 % 38.8-50.0 [facility] Hemoglobin [Mass/volume] in BloodOrdered By: Yo Blood on 03-11-2022 Hemoglobin (Bld) [Mass/Vol] 15.3 g/dL 13.0-17.0 [facility] Laboratory - Chemistry and C hemistry - challengeOrdered By: Yo Blood on 03-11-2022 Natriuretic peptide B (Bld) [Mass/Vol] 101.0 pg/mL 5-100 [facility] Leukocytes [#/volume] correc vlad for nucleated erythrocytes in Blood by Automated counOrdered By: Yo Blood on 03-11-2022 WBC corrected for nucl RBC Auto (Bld) [#/Vol] 3.7 10*3/uL 4.1-10.5 [facility] Lymphocytes Auto (Bld) [#/Vo l]Ordered By: Yo Blood on 03-11-2022 Lymphocytes (Bld) [#/Vol] 1.1 10*3/uL 1.00-4.8 [facility] Lymphocytes/100 WBC Auto (Bl d)Ordered By: Yo Blood on 03-11-2022 Lymphocytes/100 WBC (Bld) 29.0 % . [facility] MCH Auto (RBC) [Entitic mass ]Ordered By: Yo Blood on 03-11-2022 MCH (RBC) [Entitic mass] 29.4 pg 27.5-35.2 [facility] MCHC Auto (RBC) [Mass/Vol]Or dered By: Yo Blood on 03-11-2022 MCHC (RBC) [Mass/Vol] 32.8 g/dL 32.5-35.6 [facility] MCV Auto (RBC) [Entitic vol] Ordered By: Yo Blood on 03-11-2022 MCV (RBC) [Entitic vol] 89.6 fL 83.5-101 [facility] Monocyte distribution width [Entitic volume] in Blood by AutomatedOrdered By: Yo Blood on 03-11-2022 Monocyte distribution width Auto (Bld) [Entitic vol] 20.67 % 0.00-20.00 [facility] Comment on above: For adults in ED, MD W > 20.0 may be associated with a higher risk of sepsis during the first 12 hrs of hospital admission Monocytes Auto (Bld) [#/Vol] Ordered By: Yo Blood on 03-11-2022 Monocytes (Bld) [#/Vol] 0.8 10*3/uL 0.0-0.8 [facility] Monocytes/100 WBC Auto (Bld) Ordered By: Yo Blood on 03-11-2022 Monocytes/100 WBC (Bld) 20.9 % . [facility] Neutrophils Auto (Bld) [#/Vo l]Ordered By: Yo Blood on 03-11-2022 Neutrophils (Bld) [#/Vol] 1.8 10*3/uL 1.8-7.7 [facility] Neutrophils/100 WBC Auto (Bl d)Ordered By: Yo Blood on 03-11-2022 Neutrophils/100 WBC (Bld) 48.6 % . [facility] No Panel InformationOrdered By: Yo Blood on 03-11-2022 SARS Antigen (LFIA) [facility] Estimated GFR () > 60 mL/Min [facility] Comment on above: GFR estimated refere nce range: According to KDOQI guidelines, <60 ml/min/1.73m2 is sufficient to diagnose a patient with chronic kidney disease. Pharmacy Creatinine Clearance (Chem 91.63 [facility] Nucleated erythrocytes [Pres ence] in Blood by Automated countOrdered By: Yo Blood on 03-11-2022 Nucleated RBC Auto Ql (Bld) 0.2 /100{WBC} 0-0.5 [facility] Platelet mean volume Auto (B ld) [Entitic vol]Ordered By: Yo Blood on 03-11-2022 Platelet mean volume (Bld) [Entitic vol] 8.5 fL 6.6-10.1 [facility] Platelets Auto (Bld) [#/Vol] Ordered By: Yo Blood on 03-11-2022 Platelets (Bld) [#/Vol] 197 10*3/uL 150-450 [facility] Protein [Mass/volume] in Ser um or PlasmaOrdered By: Yo Blood on 03-11-2022 Protein [Mass/Vol] 6.9 g/dL 6.1-7.9 [facility] RBC Auto (Bld) [#/Vol]Ordere d By: Yo Blood on 03-11-2022 RBC (Bld) [#/Vol] 5.21 10*6/uL 3.90-5.60 [facility] Serum or plasma alanine sullivan otransferase measurement without P-5'-P (enzymatic activiOrdered By: Yo Blood on 03-11-2022 ALT No additional P-5'-P [Catalytic activity/Vol] 23 U/L 10-60 [facility] Serum or plasma albumin/glob ulin mass ratioOrdered By: Yo Blood on 03-11-2022 Albumin/Globulin [Mass ratio] 1.5 {ratio} [facility] Serum or plasma alkaline faviola sphatase measurement (enzymatic activity/volume)Ordered By: Yo Blood on 03-11-2022 ALP [Catalytic activity/Vol] 79 U/L 32-92 [facility] Serum or plasma anion gap de terminationOrdered By: Yo Blood on 03-11-2022 Anion gap [Moles/Vol] 13.7 mmol/L 6.0-15.0 [facility] Serum or plasma aspartate am inotransferase measurement (enzymatic activity/volume)Ordered By: Yo Blood on 03-11-2022 AST [Catalytic activity/Vol] 32 U/L 10-42 [facility] Serum or plasma calcium echo urement (mass/volume)Ordered By: Yo Blood on 03-11-2022 Calcium [Mass/Vol] 9.2 mg/dL 8.2-10.2 [facility] Serum or plasma chloride tessie surement (moles/volume)Ordered By: Yo Blood on 03-11-2022 Chloride [Moles/Vol] 98 mmol/L 95-114 [facility] Serum or plasma glucose echo urement (mass/volume)Ordered By: Yo Blood on 03-11-2022 Glucose [Mass/Vol] 91 mg/dL 70-100 [facility] Comment on above: ADA recommended refe rence rangeRandom Glucose Reference Range is dependent on time and content of last meal. Glucose of more than 200 mg/dL in a nonstressed, ambulatory subject supports the diagnosis of Diabetes Mellitus. Serum or plasma potassium me asurement (moles/volume)Ordered By: Yo Blood on 03-11-2022 Potassium [Moles/Vol] 3.7 mmol/L 3.5-5.1 [facility] Serum or plasma sodium measu rement (moles/volume)Ordered By: Yo Blood on 03-11-2022 Sodium [Moles/Vol] 137 mmol/L 136-146 [facility] Serum or plasma total biliru bin measurement (mass/volume)Ordered By: Yo Blood on 03-11-2022 Bilirubin [Mass/Vol] 0.6 mg/dL 0.3-1.2 [facility] Serum or plasma total carbon dioxide measurement (moles/volume)Ordered By: Yo Blood on 03-11-2022 CO2 [Moles/Vol] 29.0 mmol/L 22.0-30.0 [facility] Serum or plasma urea nitroge n measurement (mass/volume)Ordered By: Yo Blood on 03-11-2022 Urea nitrogen [Mass/Vol] 10 mg/dL 11-16 [facility] Gertrude Ag Negativeon 03-11-19 Gertrude Ag Negative Negative Normal Negative [facility] Comment on above: Result Comment: This is a duplicate Gertrude SARS Antigen (OLY) result to be used for statistical tracking purpose only. PERFORMED BY: [place] [address] PATHOLOGIST AGING ROOM OPERATOR EYAD HOWARD M.D. Performed By: #### C OVID-19 GERTRUDE, SOFIANEG #### [facility] [address] [place] [address] [place] Troponin I High Sensitivityo n 03-11-2022 Troponin I High Sensitivity 9 pg/mL Normal 0-20 [facility] Comment on above: Result Comment: PERF ORMED BY: [place] [address] PATHOLOGIST AGING ROOM OPERATOR EYAD HOWARD M.D. Performed By: #### C BC, CMP, HS TROP, BNP #### [facility] [address] [place] [address] Troponin I.cardiac [Mass/vol ume] in Serum or Plasma by High sensitivity methodOrdered By: Yo Blood on 03-11-2022 Troponin I.cardiac High sensitivity method [Mass/Vol] 9 pg/mL 0-20 [facility] WBC Auto (Bld) [#/Vol]Ordere d By: Yo Blood on 03-11-2022 WBC (Bld) [#/Vol] 3.7 10*3/uL 4.1-10.5 [facility] XR chest 2V*on 03-11-2022 XR chest 2V* [facility] Main [address] [address] XRay Report Signed Patient: Fredrick Stroud MR#: [id number] 427 : 1950 Acct:[id number] Age/Sex: 71 / M ADM Date: 03/11/22 [...] Ga Dorsey M.D.03/11/2022 1:42 PM Dictation Location: [place] [address] Transcribed By: [facility] 03/11/22 1342 Dictated By: Ga Dorsey II, MD 03/11/22 1339 Signed By: 03/11/22 1342 Normal [facility] XR hip LT min 2V(w/wo pelvis )*on 09-26-2021 XR hip LT min 2V(w/wo pelvis)* [facility] Main [address] [address] XRay Report Signed Patient: Fredrick Stroud MR#: [id number] 427 : 1950 Acct:[id number] Age/Sex: 70 / M ADM Date: 09/26/21 Loc: SOXD Room: Type: [facility] CLI Attending Dr: Shahriar Dhillon II, MD Copies [...] Ariana Tanner M.D.09/26/2021 3:27 PM Dictation Location: [place] [address] Transcribed By: [facility] 09/26/21 152 Dictated By: Ariana Tanner MD 09/26/21 1526 Signed By: 09/26/21 1527 Normal [facility] XR hip LT min 2V(w/wo pelvis )*on 08-15-2021 XR hip LT min 2V(w/wo pelvis)* [facility] Main [place] [address] [place] [address] XRay Report Signed Patient: Fredrick Stroud MR#: [id number] 427 : 1950 Acct:[id number] Age/Sex: 70 / M ADM Date: 08/15/21 [place] [facility] [place]: Type: [facility] Attending Dr: Shahriar Dhillon II, MD Copies [...] 2:40 PM Dictation Location: RADIO-PC-13 Transcribed By: PWS 08/15/21 1440 Dictated By: Dandy Stevenson Jr, 08/15/21 1439 Signed By: 08/15/21 1440 Normal [facility] XR hip LT min 2V(w/wo pelvis)* [facility] [employer] Other XR hip LT min 2V(w/wo pelvis)* [facility] [place] [employer] Other XR hip LT min 2V(w/wo pelvis)* [address] [place] [address] [employer] Other XR hip LT min 2V(w/wo pelvis)* [place] [address] [employer] Other XR hip LT min 2V(w/wo pelvis)* XRay Report [employer] Other XR hip LT min 2V(w/wo pelvis)* Signed [employer] Other XR hip LT min 2V(w/wo pelvis)* Patient: Fredrick Stroud MR#: [id number] [employer] Other XR hip LT min 2V(w/wo pelvis)* 427 [employer] Other XR hip LT min 2V(w/wo pelvis)* : 1950 Acct:[id number] [employer] Other XR hip LT min 2V(w/wo pelvis)* Age/Sex: 70 / M ADM Date: 08/15/21 [employer] Other XR hip LT min 2V(w/wo pelvis)* Loc: SOXD Room: Type: [facility] [employer] Other XR hip LT min 2V(w/wo pelvis)* Attending Dr: Shahriar Dhillon II, MD [employer] Other XR hip LT min 2V(w/wo pelvis)* Copies to: Shahriar Dhillon MD [employer] Other XR hip LT min 2V(w/wo pelvis)* Ordering Provider: Shahriar Dhillon MD [employer] Other XR hip LT min 2V(w/wo pelvis)* Date of Service: 08/15/21 [employer] Other XR hip LT min 2V(w/wo pelvis)* XR/XR hip LT min 2V(w/wo pelvis)*: Aftercare following joint replacement [employer] Other XR hip LT min 2V(w/wo pelvis)* surgery [employer] Other XR hip LT min 2V(w/wo pelvis)* LEFT HIP - 2 views: 1 view pelvis [employer] Other XR hip LT min 2V(w/wo pelvis)* CLINICAL HISTORY: Follow-up left GEOVANI [employer] Other XR hip LT min 2V(w/wo pelvis)* COMPARISON: Hip series 07/02/2021 [employer] Other XR hip LT min 2V(w/wo pelvis)* FINDINGS: 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 Prostate radiation [employer] Other XR hip LT min 2V(w/wo pelvis)* seeds. Mild degenerative changes right hip. [employer] Other XR hip LT min 2V(w/wo pelvis)* XR/XR hip LT min 2V(w/wo pelvis)* [employer] Other XR hip LT min 2V(w/wo pelvis)* IMPRESSION: [employer] Other XR hip LT min 2V(w/wo pelvis)* NO EVIDENCE OF HARDWARE COMPLICATION. [employer] Other XR hip LT min 2V(w/wo pelvis)* Impression dictated by: Dandy Stevenson Jr., D.ODre08/15/2021 2:40 PM [employer] Other XR hip LT min 2V(w/wo pelvis)* Dictation Location: [facility]PC-13 [employer] Other XR hip LT min 2V(w/wo pelvis)* Transcribed By: PWS 08/15/21 1440 [employer] Other XR hip LT min 2V(w/wo pelvis)* Dictated By: Dandy Stevenson Jr, DO 08/15/21 1439 [employer] Other XR hip LT min 2V(w/wo pelvis)* Signed By: [employer] Other XR hip LT min 2V(w/wo pelvis)* 08/15/21 1440 [employer] Other Basic Metabolic Panelon 05-1 Calcium [Mass/Vol] 8.6 mg/dL Normal 8.2-10.2 [facility] Comment on above: Performed By: #### C BC, BMP #### [facility] [address] [place] [address] [place] Chloride [Moles/Vol] 102 mmol/L Normal 95-114 [facility] Comment on above: Performed By: #### C BC, BMP #### [facility] [address] CO2 [Moles/Vol] 25.5 mmol/L Normal 22.0-30.0 [facility] Comment on above: Performed By: #### C BC, BMP #### [facility] [address] [place] [id number] [place] Creatinine [Mass/Vol] 0.96 mg/dL Normal 0.64-1.27 [facility] Comment on above: Performed By: #### C BC, BMP #### [facility] [address] [place] [id number] [place] Creatinine Clr Calc Pharmacy 81.73 Normal [facility] Comment on above: Result Comment: PERF ORMED BY: [facility] [address] [place] [address] PATHOLOGIST AGING ROOM OPERATOR EYAD HOWARD M.D. Performed By: #### C BC, BMP #### [address] Estimated GFR ( Jessica > 60 [facility] Comment on above: Result Comment: GFR estimated reference range: According to KDOQI guidelines, <60 ml/min/1.73m2 is sufficient to diagnose a patient with chronic kidney disease. Performed By: #### C BC, BMP #### [address] Estimated GFR (Non- Am > 60 [facility] Comment on above: Performed By: #### C BC, BMP #### [address] Glucose [Mass/Vol] 167 mg/dL High 70-100 [facility] Comment on above: Result Comment: [place] Glucose Reference Range is dependent on time and content of last meal. Glucose of more than 200 mg/dL in a nonstressed, ambulatory subject supports the diagnosis of Diabetes Mellitus. ADA recommended reference range Performed By: #### C BC, BMP #### [address] Potassium [Moles/Vol] 4.4 mmol/L Normal 3.5-5.1 [facility] Comment on above: Performed By: #### C BC, BMP #### [address] Sodium [Moles/Vol] 135 mmol/L Low 136-146 [facility] Comment on above: Performed By: #### C BC, BMP #### [address] Urea nitrogen [Mass/Vol] 18 mg/dL Normal 9-23 [facility] Comment on above: Performed By: #### C BC, BMP #### [address] Complete Blood Count Auto Di ffon 07-03-2021 Basophils (Bld) [#/Vol] 0.0 10*3/uL Normal 0.0-0.2 [facility] Comment on above: Result Comment: PERF ORMED BY: [place] [address] PATHOLOGIST AGING ROOM OPERATOR EYAD HOWARD M.D. Performed By: #### C BC, BMP #### [address] Basophils/100 WBC (Bld) 0.3 % Normal . [facility] Comment on above: Performed By: #### C BC, BMP #### [address] Eosinophils (Bld) [#/Vol] 0.0 10*3/uL Normal 0.0-0.45 [facility] Comment on above: Performed By: #### C BC, BMP #### [address] Eosinophils/100 WBC (Bld) 0.0 % Normal . [facility] Comment on above: Performed By: #### C BC, BMP #### [address] Erythrocyte distribution width (RBC) [Ratio] 14.2 % Normal 12.0-14.8 [facility] Comment on above: Performed By: #### C BC, BMP #### [address] Hematocrit (Bld) [Volume fraction] 32.9 % Low 38.8-50.0 [facility] Comment on above: Performed By: #### C BC, BMP #### [place] [address] [place] Hemoglobin (Bld) [Mass/Vol] 11.2 g/dL Low 13.0-17.0 [facility] Comment on above: Performed By: #### C BC, BMP #### [place] [address] [place] Lymphocytes (Bld) [#/Vol] 0.6 10*3/uL Low 1.00-4.8 [facility] Comment on above: Performed By: #### C BC, BMP #### [facility] [address] Lymphocytes/100 WBC (Bld) 4.7 % Normal . [facility] Comment on above: Performed By: #### C BC, BMP #### [facility] [address] MCH (RBC) [Entitic mass] 30.1 pg Normal 27.5-35.2 [facility] Comment on above: Performed By: #### C BC, BMP #### [facility] [address] MCV (RBC) [Entitic vol] 88.7 fL Normal 83.5-101 [facility] Comment on above: Performed By: #### C BC, BMP #### [address] Mean Corpuscular HGB Conc 33.9 g/dL Normal 32.5-35.6 [facility] Comment on above: Performed By: #### C BC, BMP #### [place] [address] [place] Monocytes (Bld) [#/Vol] 1.0 10*3/uL High 0.0-0.8 [facility] Comment on above: Performed By: #### C BC, BMP #### [place] [address] [place] Monocytes/100 WBC (Bld) 8.3 % Normal . [facility] Comment on above: Performed By: #### C BC, BMP #### [place] [address] [place] Neutrophils (Bld) [#/Vol] 10.9 10*3/uL High 1.8-7.7 [facility] Comment on above: Performed By: #### C BC, BMP #### [address] Neutrophils/100 WBC (Bld) 86.7 % Normal . [facility] Comment on above: Performed By: #### C BC, BMP #### [place] [address] [place] Nucleated RBC/100 WBC (Bld) [Ratio] 0.0 % Normal 0-0.5 [facility] Comment on above: Performed By: #### C AKHIL, BMP #### [facility] [address] Platelet mean volume (Bld) [Entitic vol] 8.4 fL Normal 6.6-10.1 [facility] Comment on above: Performed By: #### C AKHIL, BMP #### [facility] [address] Platelets (Bld) [#/Vol] 210 10*3/uL Normal 150-450 [facility] Comment on above: Performed By: #### C AKHIL, BMP #### [address] RBC (Bld) [#/Vol] 3.71 10*6/uL Low 3.90-5.60 [facility] Comment on above: Performed By: #### C AKHIL, BMP #### [address] WBC (Bld) [#/Vol] 12.5 10*3/uL High 4.5-11.0 [facility] Comment on above: Performed By: #### C AKHIL, BMP #### [address] ECG 12 lead ECGon 07-02-2021 ECG 12 lead ECG [facility] Main [place] [address] [place] [address] Electrocardiograph Report Signed Patient: Fredrick Stroud MR#: [id number] 427 : 1950 Acct:[id number] Age/Sex: 70 / M ADM Date: 07/02/21 Loc: [place] Room: Type: [facility] Attending Dr: Shahriar Dhillon II, MD Ordering [...] Signed By Moreno Rosario DO 07/02 1306 [facility] 07-02-2021 L - -------- Specimen: [id number] Received: 07/02/21 Status: LORETTA Solis Num: [id number] Spec Type: Surgical Subm Dr: Shahriar Dhillon MD Tissues: A Femoral Head - Other than Fracture (L HIP) Procedures: LEONARD Richardson, Gross/Micro L3, Decal -------- Patient Age/Sex Location Account Attending Physician -------- Fredrick Stroud 70/M 4N [id number] Shahriar Dhillon MD -------- SPEC NUM: [id number] RECD: 07/02/21 STATUS: LORETTA SOLIS NUM: [id number] MILY: 07/02/21 DR: Shahriar Dhillon MD ENTERED: 07/02/21 [facility] DR: LEBRON TYPE: Surgical DEPT: S ORDERED: [...] bone fragments and scant soft tissue. A union representative section of bone, following formalin fixation and decalcification is submitted in cassette A 1. (KULDEEP/NORA) -------- Specimen: [id number] Received: 07/02/21 Status: LORETTA Solis Num: [id number] Spec Type: Surgical Subm Dr: Shahriar Dhillon MD Tissues: A Femoral Head - Other than Fracture (L HIP) Procedures: HE Stain, Gross/Micro L3, Decal -------- Patient: Fredrick Stroud Madhu [id number] (Continued) -------- Specimen: Received: 07/02/21 (Continued) Signed (signature on file) Kaycee Curry MD 07/04/21 1625 -------- Specimen: Received: 07/02/21 Status: LORETTA Solis Num: [id number] Spec Type: Surgical Subm Dr: Shahriar Dhillon MD Tissues: A Femoral Head - Other than Fracture (L HIP) Procedures: HE Stain, Gross/Micro L3, Decal -------- Patient: Fredrick Stroud [id number] (Continued) -------- Specimen: [id number] Received: 07/02/21 (Continued) Microscopic Description One glass slide with H E stained material has been examined. The microscopic findings support the above pathologic diagnosis. CPT Codes 81901, 50798 -------- -------- Specimen: [id number] Received: 07/02/21 Status: LORETTA Solis Num: [id number] Spec Type: Surgical Subm Dr: Shahriar Dhillon MD Tissues: A Femoral Head - Other than Fracture (L HIP) Procedures: HE Stain, Gross/Micro L3, Decal -------- Patient: Fredrick Stroud [id number] (Continued) -------- Signed (signature on file) Kaycee Curry MD 07/04/21 1625 Normal [facility] XR hip LT 1Von 07-02-2021 XR hip LT 1V [place] [address] XRay Report Signed Patient: Fredrick Stroud MR#: [id number] 427 : 1950 Acct:[id number] Age/Sex: 70 / M ADM Date: 07/02/21 Loc: [place] Room: Type: [facility] Attending Dr: Shahriar Dhillon II, MD [...] STUDY.. Impression dictated by: Dandy Stevenson Jr., D.ODre07/02/2021 9:26 AM Dictation Location: RADIO-PC-08 Transcribed By: ADRIAN 07/02/21925 Dictated By: Dandy Stevenson Jr, DO 07/02/21922 Signed By: 07/02/21925 [facility] XR low pelvis w/LT x-table h ipon 07-02-2021 XR low pelvis w/LT x-table hip [facility] [place] [address] XRay Report Signed Patient: Fredrick Stroud MR#: [id number] : 1950 Acct:[id number] Age/Sex: 70 / M ADM Date: 07/02/21 Loc: [place] Room: Type: [facility] Attending Dr: Shahriar Dhillon II, MD [...] Ariana Tanner M.D.07/02/2021 12:05 PM Dictation Location: RADIO-PC-13 Transcribed By: PWS 07/02/211204 Dictated By: Ariana Tanner MD 07/02/21 120 Signed By: 07/02/211204 [facility] [place] [facility] [place] SARS-CoV-2 (COVID-19) RNA FABI+probe Ql (Unsp spec) Negative Normal Negative [facility] Comment on above: Order Comment: 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 This test has not been FDA [...] is terminated or revoked sooner. PERFORMED BY: [place] [address] PATHOLOGIST AGING ROOM OPERATOR EYAD HOWARD M.D. Performed By: #### C BC, CMP, HS TROP, BNP #### [address] Basic Metabolic Panelon 05-26 Calcium [Mass/Vol] 9.4 mg/dL Normal 8.2-10.2 [facility] Comment on above: Result Comment: PERF ORMED BY: [place] [address] PATHOLOGIST AGING ROOM OPERATOR EYAD HOWARD M.D. Performed By: #### C OVID-19 GERTRUDE, SOFIANEG #### [place] [address] [place] Chloride [Moles/Vol] 103 mmol/L Normal 95-114 [facility] Comment on above: Performed By: #### C OVID-19 GERTRUDE, SOFIANEG #### [place] [address] [place] CO2 [Moles/Vol] 26.4 mmol/L Normal 22.0-30.0 [facility] Comment on above: Performed By: #### C OVID-19 GERTRUDE, SOFIANEG #### [facility] [address] [place] [address] Creatinine [Mass/Vol] 0.89 mg/dL Normal 0.64-1.27 [facility] Comment on above: Performed By: #### C OVID-19 GERTRUDE, SOFIANEG #### [place] [address] [place] Estimated GFR ( Jessica > 60 [facility] Comment on above: Result Comment: GFR estimated reference range: According to KDOQI guidelines, <60 ml/min/1.73m2 is sufficient to diagnose a patient with chronic kidney disease. Performed By: #### C OVID-19 GERTRUDE, SOFIANEG #### [address] Estimated GFR (Non- Am > 60 [facility] Comment on above: Performed By: #### C OVID-19 GERTRUDE, SOFIANEG #### [address] Glucose [Mass/Vol] 101 mg/dL High 70-100 [facility] Comment on above: Result Comment: [place] om Glucose Reference Range is dependent on time and content of last meal. Glucose of more than 200 mg/dL in a nonstressed, ambulatory subject supports the diagnosis of Diabetes Mellitus. ADA recommended reference range Performed By: #### C OVID-19 GERTRUDE, SOFIANEG #### [address] Potassium [Moles/Vol] 4.4 mmol/L Normal 3.5-5.1 [facility] Comment on above: Performed By: #### C OVID-19 GERTRUDE, SOFIANEG #### [address] Sodium [Moles/Vol] 139 mmol/L Normal 136-146 [facility] Comment on above: Performed By: #### C OVID-19 GERTRUDE, SOFIANEG #### [address] [place] [address] [place] Urea nitrogen [Mass/Vol] 23 mg/dL Normal 9-23 [facility] Comment on above: Performed By: #### C OVID-19 GERTRUDE, SOFIANEG #### [facility] [address] [place] [address] Complete Blood Count Auto Di ffon 06-18-2021 Basophils (Bld) [#/Vol] 0.0 10*3/uL Normal 0.0-0.2 [facility] Comment on above: Result Comment: PERF ORMED BY: [place] [address] PATHOLOGIST AGING ROOM OPERATOR EYAD HOWARD M.D. Performed By: #### C OVID-19 GERTRUDE, SOFIANEG #### [address] Basophils/100 WBC (Bld) 0.9 % Normal . [facility] Comment on above: Performed By: #### C OVID-19 GERTRUDE, SOFIANEG #### [facility] [address] [place] [address] Eosinophils (Bld) [#/Vol] 0.1 10*3/uL Normal 0.0-0.45 [facility] Comment on above: Performed By: #### C OVID-19 GERTRUDE, SOFIANEG #### [address] Eosinophils/100 WBC (Bld) 1.4 % Normal . [facility] Comment on above: Performed By: #### C OVID-19 GERTRUDE, SOFIANEG #### [facility] [address] [place] [address] Erythrocyte distribution width (RBC) [Ratio] 14.0 % Normal 12.0-14.8 [facility] Comment on above: Performed By: #### C OVID-19 GERTRUDE, SOFIANEG #### [facility] [address] [place] [address] Hematocrit (Bld) [Volume fraction] 41.8 % Normal 38.8-50.0 [facility] Comment on above: Performed By: #### C OVID-19 GERTRUDE, SOFIANEG #### [address] Hemoglobin (Bld) [Mass/Vol] 14.2 g/dL Normal 13.0-17.0 [facility] Comment on above: Performed By: #### C OVID-19 GERTRUDE, SOFIANEG #### [address] Lymphocytes (Bld) [#/Vol] 1.1 10*3/uL Normal 1.00-4.8 [facility] Comment on above: Performed By: #### C OVID-19 GERTRUDE, SOFIANEG #### [address] Lymphocytes/100 WBC (Bld) 22.7 % Normal . [facility] Comment on above: Performed By: #### C OVID-19 GERTRUDE, SOFIANEG #### [address] MCH (RBC) [Entitic mass] 30.4 pg Normal 27.5-35.2 [facility] Comment on above: Performed By: #### C OVID-19 GERTRUDE, SOFIANEG #### [address] MCV (RBC) [Entitic vol] 89.7 fL Normal 83.5-101 [facility] Comment on above: Performed By: #### C OVID-19 GERTRUDE, SOFIANEG #### [address] Mean Corpuscular HGB Conc 33.9 g/dL Normal 32.5-35.6 [facility] Comment on above: Performed By: #### C OVID-19 GERTRUDE, SOFIANEG #### [address] Monocytes (Bld) [#/Vol] 0.5 10*3/uL Normal 0.0-0.8 [facility] Comment on above: Performed By: #### C OVID-19 GERTRUDE, SOFIANEG #### [facility] [address] [place] [address] [place] Monocytes/100 WBC (Bld) 11.2 % Normal . [facility] Comment on above: Performed By: #### C OVID-19 GERTRUDE, SOFIANEG #### [facility] [address] Neutrophils (Bld) [#/Vol] 3.1 10*3/uL Normal 1.8-7.7 [facility] Comment on above: Performed By: #### C OVID-19 GERTRUDE, SOFIANEG #### [facility] [address] Neutrophils/100 WBC (Bld) 63.8 % Normal . [facility] Comment on above: Performed By: #### C OVID-19 GERTRUDE, SOFIANEG #### [facility] [address] [place] [address] [place] Nucleated RBC/100 WBC (Bld) [Ratio] 0.1 % Normal 0-0.5 [facility] Comment on above: Performed By: #### C OVID-19 GERTRUDE, SOFIANEG #### [facility] [address] [place] [address] [place] Platelet mean volume (Bld) [Entitic vol] 8.2 fL Normal 6.6-10.1 [facility] Comment on above: Performed By: #### C OVID-19 GERTRUDE, SOFIANEG #### [facility] [address] [place] [address] [place] Platelets (Bld) [#/Vol] 243 10*3/uL Normal 150-450 [facility] Comment on above: Performed By: #### C OVID-19 GERTRUDE, SOFIANEG #### [facility] [address] [place] [address] [place] RBC (Bld) [#/Vol] 4.67 10*6/uL Normal 3.90-5.60 [facility] Comment on above: Performed By: #### C OVID-19 GERTRUDE, SOFIANEG #### [facility] [address] [place] [address] [place] WBC (Bld) [#/Vol] 4.8 10*3/uL Normal 4.5-11.0 [facility] Comment on above: Performed By: #### C OVID-19 WOLFGANG LOREDO #### [facility] [address] [place] [id number] [facility] ECG 12 lead ECGon 06-18-2021 ECG 12 lead ECG [facility] Main [place] [address] [place] [address] Electrocardiograph Report Signed Patient: Fredrick Stroud MR#: [id number] 427 : 1950 Acct:[id number] Age/Sex: 70 / M ADM Date: 06/18/21 Loc: Room: Type: [facility] Attending Dr: Shahriar Dhillon II, MD Ordering [...] was found Confirmed by WISAM TORRE MD ([id number]) on 06/19/2021 10:06:42 AM Referred By: RAMÓN DHILLON Electronically Signed By:WISAM TORRE MD Transcribed By: MUS Signed By Wisam Torre MD 0 06/19/21 1006 Normal [facility] Fructosamineon 06-18-2021 Fructosamine 217 umol/L Normal 0-285 [facility] Comment on above: Result Comment: Publ ished reference interval for apparently healthy subjects between age 20 and 60 is 205 - 285 umol/L and in a poorly controlled diabetic population is 228 - 563 umol/L with a mean of 396 umol/L. Performed at: [address] [id number] Supervisor Floor Assembly: Benton Caro PhD, Phone: [phone] PERFORMED BY: [place] [address] PATHOLOGIST AGING ROOM OPERATOR EYAD HOWARD M.D. Performed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
[2023-03-14 08:45] LABS: INR 1.87; Prothrombin Time 19.1 sec (9.0-11.6)
== END 2023-03-14 01:42 | disposition home or self-care (01) ==
LOC: LAB 01:41
PROVIDERS: PCP Family Medicine; Visit Provider Family Medicine
DX: I48.19 Other persistent atrial fibrillation (principal)
CPT/HCPCS: 36415; 85610

== ENCOUNTER 2023-03-21 10:46 | Outpatient (REF) | payer MEDICARE, SELFPAY ==
--- OUTSIDE RECORDS SUMMARY | 2023-03-21 10:57 | XMS_ITS | CCD ---
Author Name Unknown Address [address] [place] [address] Organization [facility] Care Team Providers Care Research Nutritionist Name Role Phone No, Physician Primary Care Provider UnavailShahriar [place] II Unavailable [phone] Shahriar Dhillon II Unavailable Karina Melgar Unavailable Lynn Gurrola Unavailable MD Karina Melgar Primary Care Provider [phone] DO Yo Blood Emergency Provider [phone] LISSETH Link Attending Provider [phone] Sejal Link Unavailable Karina Melgar Unavailable Unavailable [...] Consulting Unavailable Adri Mon Consulting Unavailable Shahriar Dihllon II Admitting UnavailShahriar [place] II Attending UnavailKarina [...] Mariella vailable KARINA MELGAR Primary Care Physician [phone] JUSTICE PRETTY Referring Unavailable RADHA SMALL Attending [...] Medication Allergies] Propensity to adverse reactions (disorder) [facility] Repository Medications Current Medications Medication Drug Class(es) Dates Sig (Normalized) Sig (Original) acetaminophen 325 mg / HYDROcodone bitartrate 5 mg oral tablet (2 sources) Opioid Agonist Start: 07-28-2020 [place] 325 mg-5 mg oral tablet 1 tab(s), [...] Active docusate sodium 50 mg / sennosides, fpc 8.6 mg oral tablet (3 sources) Start: [...] MG Oral Tablet Take as directed by [facility] coumadin clinic Quantity: 0 Refills: 0 [...] Start: 06-14-2021 take 2 tablets by mo [facility] every eight hours for pain Acetaminophen [...] 1 capsule by mouth twice daily Iron Dcu-S11-IvH52-Mn-Y-Ixlya Acid (Ferocon) 110-0.5 mg Capsule Discontinued 1 [...] 02-15-2023 End: 02-15-2023 ONCE PRN, Starting on [facility] 02/15/23 at 2127, Until Discontinued ibuprofen 200 [...] Discontinued Start: 06-14-2021 take 1 tablet by [facility] three times daily as needed for nausea Ondansetron HCl 8 MG 1 tablet as needed for nausea Orally TID for 10 days Med to Bed Upon Discharge DOS: 07/02/2021 May, Active polyethylene glycol 3350 61621 mg powder for oral solution (4 sources) [...] Discontinued Start: 07-05-20[address] [facility] every twelve hours propafenone 425 mg [...] Active Start: 04-29-20[address] [facility] every twelve hours Propafenone HCl ER 225 MG Oral Capsule Extended Release 12 Hour TAKE 1 CAPSULE EVERY 12 HOURS. Quantity: 180 Refills: 0 Ordered: 29-Apr-2022 Christopher Porter MD Start : 29-Apr-2022 Active new start Prostate Support TABS (10 sources) Prostate Support TABS TAKE 1 TABLET DAILY DIRECTED. Quantity: 0 Refills: 0 Ordered: 21-Mar-2022 DO Active Saw-Vit E-Sod Pmn-Ofy-Egvg-Pyg (Prostate Health) 160-100-100 mg-unit-mcg Tablet (2 sources) Start: End: 3 take 1 capsule by mouth once daily Saw-Vit E-Sod Dye-Cki-Tfvf-Pyg (Prostate Health) 160-100-100 mg-unit-mcg Tablet Discontinued 1 CAP PO Daily July 27, 2017 11:00pm March 11, 2022 5:18pm sennosides, fpc 8.6 mg oral tablet (1 source) Start: [...] on Fri02/17/23 at 1600, Until Discontinued Vit C-S.Mlyzdj-Ocjdrr-Uivct Sd (Tart Bhagat) 52-199-42-75-20 mg Capsule (2 sources) Start: 07-28-2017 End: 08-09-2019 Vit C-S.Tpiowt-Wwqowl-Gbmgf Sd (Tart Bhagat) 70-951-69-75-20 mg Capsule Discontinued 1 CAP PO Twice [...] source) Long-term current use of anticoagulant; Translations: [alf (current) use of anticoagulants] Episodic Other aftercare [...] 02-13-2021 Episodic Other aftercare (2 sources) 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 3 mg/dL [facility] Chloride [Moles/Vol] 102 mmol/L 98 - 107 mmol/L [facility] CO2 [Moles/Vol] 30 mmol/L 21 - 31 mmol/L [facility] Creatinine [Mass/Vol] 0.64 mg/dL Low 0.70 - 1.30 mg/dL [facility] GFR/1.73 sq M.predicted CKD-EPI (S/P/Bld) [Vol rate/Area] 99 - PINF [facility] Glucose [Mass/Vol] 129 mg/dL High 74 - 109 mg/dL [facility] Interpretation and review of laboratory results [...] 8.9 g/dL Low 13.9 - 16.3 g/dL [facility] Interpretation and review of laboratory results Abnormal [...] [facility] RBC (Bld) [#/Vol] 2.90 10*6/uL Low [facility] WBC (Bld) [#/Vol] 8.5 10*3/uL 4.5 - 11.5 K/uL [facility] MAGNESIUM[facility] 02-25-2023 Magnesium [Mass/Vol] 1.9 mg/dL 1.6 - 2.8 mg/dL [facility] No Panel Informationon 02-25 Interpretation and review of laboratory results Normal [facility] PHOSPHORUSon 02-25-2023 Phosphate [Mass/Vol] 2.9 mg/dL 2.3 - 4.2 mg/dL [facility] PROTHROMBIN TIME AND INRon 0 02-25-2023 INR Coag (PPP) [Relative time] 1.13 {INR} High 0.90 - 1.10 [facility] Interpretation and review of laboratory results Abnormal [facility] PT Coag (PPP) [Time] 12.6 s [facility] ANTI FXA-LMW HEPARINon 02-24 LMW Heparin Chromogenic method Qn (PPP) 0.32 IU/mL [facility] Basic metabolic 2000 panelon 02-24-2023 Anion gap [Moles/Vol] 9 mmol/L Low 10 - 20 [facility] Calcium [Mass/Vol] 7.7 mg/dL Low 8.6 - 10. 3 mg/dL [facility] Chloride [Moles/Vol] 101 mmol/L 98 - 107 mmol/L [facility] CO2 [Moles/Vol] 30 mmol/L 21 - 31 mmol/L [facility] Creatinine [Mass/Vol] 0.60 mg/dL Low 0.70 - 1.30 mg/dL [facility] GFR/1.73 sq M.predicted CKD-EPI (S/P/Bld) [Vol rate/Area] 101 - PINF [facility] Glucose [Mass/Vol] 98 mg/dL 74 - 109 mg/dL [facility] Interpretation and review of laboratory results Abnormal [facility] Potassium [Moles/Vol] 4.0 mmol/L 3.5 - 5.0 mmol/L [facility] Sodium [Moles/Vol] 136 mmol/L 136 - 145 mmol/L [facility] Urea nitrogen [Mass/Vol] 19 mg/dL 7 - 25 mg/dL [facility] CBC panel Auto (Bld)on 02-24 Erythrocyte distribution width (RBC) [Ratio] 15.4 % High 11.5 - 14.5 % [facility] Hematocrit (Bld) [Volume fraction] 25.2 % Low 41.0 - 53.0 % [facility] Hemoglobin (Bld) [Mass/Vol] 8.3 g/dL Low 13.9 - 16.3 g/dL [facility] Interpretation and review of laboratory results Abnormal [facility] MCH (RBC) [Entitic mass] 30.7 pg 26.0 - 34.0 pg [facility] MCHC (RBC) [Mass/Vol] 33.1 g/dL 32.0 - 35.9 g/dL [facility] MCV (RBC) [Entitic vol] 93 fL 80 - 100 fL [facility] Platelet mean volume (Bld) [Entitic vol] 7.6 fL 7.5 - 11.2 fL [facility] Platelets (Bld) [#/Vol] 320 10*3/uL 150 - 400 K/uL [facility] RBC (Bld) [#/Vol] 2.72 10*6/uL Low [facility] WBC (Bld) [#/Vol] 7.6 10*3/uL 4.5 - 11.5 K/uL [facility] 02-24-2023 Magnesium [Mass/Vol] 1.9 mg/dL 1.6 - 2.8 mg/dL [facility] No Panel Informationon 02-24 Interpretation and review of laboratory results Normal [facility] PHOSPHORUSon 02-24-2023 Phosphate [Mass/Vol] 2.7 mg/dL 2.3 - 4.2 mg/dL [facility] Basic metabolic 2000 panelon 02-23-2023 Anion gap [Moles/Vol] 9 mmol/L Low 10 - 20 [facility] Calcium [Mass/Vol] 7.8 mg/dL Low 8.6 - 10. 3 mg/dL [facility] Chloride [Moles/Vol] 99 mmol/L 98 - 107 mmol/L [facility] CO2 [Moles/Vol] 32 mmol/L High 21 - 31 mmol/L [facility] Creatinine [Mass/Vol] 0.59 mg/dL Low 0.70 - 1.30 mg/dL [facility] GFR/1.73 sq M.predicted CKD-EPI (S/P/Bld) [Vol rate/Area] 102 - PINF [facility] Glucose [Mass/Vol] 88 mg/dL 74 - 109 mg/dL [facility] Interpretation and review of laboratory results Abnormal [facility] Potassium [Moles/Vol] 4.0 mmol/L 3.5 - 5.0 mmol/L [facility] Sodium [Moles/Vol] 136 mmol/L 136 - 145 mmol/L [facility] Urea nitrogen [Mass/Vol] 22 mg/dL 7 - 25 mg/dL [facility] CBC panel Auto (Bld)on 02-23 Erythrocyte distribution width (RBC) [Ratio] 15.3 % High 11.5 - 14.5 % [facility] Hematocrit (Bld) [Volume fraction] 26.6 % Low 41.0 - 53.0 % [facility] Hemoglobin (Bld) [Mass/Vol] 8.7 g/dL Low 13.9 - 16.3 g/dL [facility] Interpretation and review of laboratory results Abnormal [facility] MCH (RBC) [Entitic mass] 30.4 pg 26.0 - 34.0 pg [facility] MCHC (RBC) [Mass/Vol] 32.7 g/dL 32.0 - 35.9 g/dL [facility] MCV (RBC) [Entitic vol] 93 fL 80 - 100 fL [facility] Platelet mean volume (Bld) [Entitic vol] 8.7 fL 7.5 - 11.2 fL [facility] Platelets (Bld) [#/Vol] 285 10*3/uL 150 - 400 K/uL [facility] RBC (Bld) [#/Vol] 2.86 10*6/uL Low [facility] WBC (Bld) [#/Vol] 8.2 10*3/uL 4.5 - 11.5 K/uL [facility] MAGNESIUMon 02-23-2023 Magnesium [Mass/Vol] 2.0 mg/dL 1.6 - 2.8 mg/dL [facility] No Panel Informationon 02-23 Interpretation and review of laboratory results Normal [facility] PHOSPHORUSon 02-23-2023 Phosphate [Mass/Vol] 2.6 mg/dL 2.3 - 4.2 mg/dL [facility] ANTI FXA-LMW HEPARINon 02-22 ANTI FXA-LMW HEPARIN ASSAY 0.48 IU/mL Normal [facility] Comment on above: Order Comment: The r ecommended therapeutic range for treatment of thrombosis with Low Molecular Weight Heparin is 0.5 - 1.0 IU/mLThe recommended range for VTE prophylaxis with Low Molecular Weight Heparin is 0.2 - 0.4 IU/mL. Performed By: #### T S #### [facility] [address] [place], [address] LMW Heparin Chromogenic method Qn (PPP) 0.48 IU/mL [facility] BASIC METABOLIC PANELon 01-26 Anion gap [Moles/Vol] 7 mmol/L Low 10-20 [facility] Comment on above: Performed By: #### 8 [id number] #### NURSING GLUCOSE PROGRAM [address] [place], [address] Calcium [Mass/Vol] 7.7 mg/dL Low 8.6-10.3 [facility] Comment on above: Result Comment: Note updated reference ranges. Performed By: #### 8 2948 #### NURSING GLUCOSE PROGRAM [address] [place], [address] Chloride [Moles/Vol] 101 mmol/L Normal 98-107 [facility] Comment on above: Result Comment: Note updated reference ranges. Performed By: #### 8 2948 #### NURSING GLUCOSE PROGRAM [address] [place], [address] CO2 [Moles/Vol] 33 mmol/L High 21-31 [facility] Comment on above: Result Comment: Note updated reference ranges. Performed By: #### 8 2948 #### NURSING GLUCOSE PROGRAM [address] [place], [address] Creatinine [Mass/Vol] 0.60 mg/dL Low 0.70-1.30 [facility] Comment on above: Result Comment: Note updated reference ranges. Performed By: #### 8 2948 #### NURSING GLUCOSE PROGRAM [address] [place], [address] ESTIMATED GFR (CKD-EPI) 101 mL/min/1.73sqm Normal >=60 [facility] Comment on above: Result Comment: 2020 [...] Inclusion of Race in Diagnosing Kidney Disease. [place] Journal of Kidney Diseases 202;79(2):268-88.e1. 2. N Engl J Med 1 Vol. 385 Issue 19 Pages 1996-4606 Performed By: #### 8 2948 #### NURSING GLUCOSE PROGRAM [address] [place], [address] Glucose [Mass/Vol] 105 mg/dL Normal 74-109 [facility] Comment on above: Performed By: #### 8 2948 #### NURSING GLUCOSE PROGRAM [address] [place], [address] Potassium [Moles/Vol] 3.6 mmol/L Normal 3.5-5.0 [facility] Comment on above: Result Comment: Note updated reference ranges. Note updated reference ranges. Performed By: #### 8 [id number] #### NURSING GLUCOSE PROGRAM [address] [place], [address] Sodium [Moles/Vol] 137 mmol/L Normal 136-145 [facility] Comment on above: Result Comment: Note updated reference ranges. Performed By: #### 8 2948 #### NURSING GLUCOSE PROGRAM [address] [place], [address] Urea nitrogen [Mass/Vol] 23 mg/dL Normal 7-25 [facility] Comment on above: Result Comment: Note updated reference ranges. Performed By: #### 8 [id number] #### NURSING GLUCOSE PROGRAM [address] [place], [address] Basic metabolic 2000 panelon 02-22-2023 Anion gap [...] [Mass/Vol] 105 mg/dL 74 - 109 mg/dL [facility] Interpretation and review of laboratory results Abnormal [facility] Potassium [Moles/Vol] 3.6 mmol/L 3.5 - 5.0 mmol/L [facility] Sodium [Moles/Vol] 137 mmol/L 136 - 145 mmol/L [facility] Urea nitrogen [Mass/Vol] 23 mg/dL 7 - 25 mg/dL [facility] CBC panel Auto (Bld)on 02-22 Erythrocyte distribution width (RBC) [Ratio] 15.4 % High 11.5 - 14.5 % [facility] Hematocrit (Bld) [Volume fraction] 23.9 % Low 41.0 - 53.0 % [facility] Hemoglobin (Bld) [Mass/Vol] 8.0 g/dL Low 13.9 - 16.3 g/dL [facility] Interpretation and review of laboratory results Abnormal [facility] MCH (RBC) [Entitic mass] 30.7 pg 26.0 - 34.0 pg [facility] MCHC (RBC) [Mass/Vol] 33.3 g/dL 32.0 - 35.9 g/dL [facility] MCV (RBC) [Entitic vol] 92 fL 80 - 100 fL [facility] Platelet mean volume (Bld) [Entitic vol] 8.7 fL 7.5 - 11.2 fL [facility] Platelets (Bld) [#/Vol] 227 10*3/uL 150 - 400 K/uL [facility] RBC (Bld) [#/Vol] 2.60 10*6/uL Low [facility] WBC (Bld) [#/Vol] 7.6 10*3/uL 4.5 - 11.5 K/uL [facility] COMPLETE BLOOD COUNTon 02-22 Erythrocyte distribution width (RBC) [Ratio] 15.4 % High 11.5-14.5 [facility] Comment on above: Performed By: #### T S #### [facility] [address] [place], [place], Hematocrit (Bld) [Volume fraction] 23.9 % Low 41.0-53.0 [facility] Comment on above: Performed By: #### T S #### [facility] [address] [place], [place], Hemoglobin (Bld) [Mass/Vol] 8.0 g/dL Low 13.9-16.3 [facility] Comment on above: Performed By: #### T S #### [facility] [address] [place] [address], MCH (RBC) [Entitic mass] 30.7 pg Normal 26.0-34.0 [facility] Comment on above: Performed By: #### T S #### [facility] [address] [place] [address], MCHC (RBC) [Mass/Vol] 33.3 g/dL Normal 32.0-35.9 [facility] Comment on above: Performed By: #### T S #### [facility] [address] [place] [address], MCV (RBC) [Entitic vol] 92 fL Normal 80-100 [facility] Comment on above: Performed By: #### T S #### [facility] [address] [place] [address], Platelet mean volume (Bld) [Entitic vol] 8.7 fL Normal 7.5-11.2 [facility] Comment on above: Performed By: #### T S #### [facility] [address] [place] [address], Platelets (Bld) [#/Vol] 227 10*3/uL Normal 150-400 [facility] Comment on above: Performed By: #### T S #### [facility] [address] [place] [address], RBC (Bld) [#/Vol] 2.60 10*6/uL Low 4.50-5.90 [facility] Comment on above: Performed By: #### T S #### [facility] [address] [place], [place], WBC (Bld) [#/Vol] 7.6 10*3/uL Normal 4.5-11.5 [facility] Comment on above: Performed By: #### T S #### [facility] [address] [place], [place], Care Plan Noteon 02-22-2023 Swing Ride Operator Authentication Interface Message Text Problem: Routine Care: [...] and once discontinued Outcome: Progressing Normal [facility] MAGNESIUMon 02-22-2023 Magnesium [Mass/Vol] 2.0 mg/dL Normal 1.6-2.8 [facility] Comment on above: Performed By: #### 8 2948 #### NURSING GLUCOSE PROGRAM [address] [place], [address] Magnesium [Mass/Vol] 2.0 mg/dL 1.6 - 2.8 mg/dL [facility] No Panel Informationon 02-22 Interpretation and review of laboratory results Normal [facility] PHOSPHORUSon 02-22-2023 Phosphate [Mass/Vol] 2.8 mg/dL Normal 2.3-4.2 [facility] Comment on above: Performed By: #### 8 2948 #### NURSING GLUCOSE PROGRAM [address] [place], [address] Phosphate [Mass/Vol] 2.8 mg/dL 2.3 - 4.2 mg/dL [facility] BASIC METABOLIC PANELon 01-25 Anion gap [Moles/Vol] 9 mmol/L Low 10-20 [facility] Comment on above: Performed By: #### 8 2948 #### NURSING GLUCOSE PROGRAM [address] [place], [address] Calcium [Mass/Vol] 7.5 mg/dL Low 8.6-10.3 [facility] Comment on above: Result Comment: Note updated reference ranges. Performed By: #### 8 2948 #### NURSING GLUCOSE PROGRAM [address] [place], [address] Chloride [Moles/Vol] 100 mmol/L Normal 98-107 [facility] Comment on above: Result Comment: Note updated reference ranges. Performed By: #### 8 2948 #### NURSING GLUCOSE PROGRAM [address] [place], [address] CO2 [Moles/Vol] 33 mmol/L High 21-31 [facility] Comment on above: Result Comment: Note updated reference ranges. Performed By: #### 8 2948 #### NURSING GLUCOSE PROGRAM [address] [place], [address] Creatinine [Mass/Vol] 0.65 mg/dL Low 0.70-1.30 [facility] Comment on above: Result Comment: Note updated reference ranges. Performed By: #### 8 2948 #### NURSING GLUCOSE PROGRAM [address] [place], [address] ESTIMATED GFR (CKD-EPI) 99 mL/min/1.73sqm Normal >=60 [facility] Comment on above: Result Comment: 2020 [...] Inclusion of Race in Diagnosing Kidney Disease. [place] Journal of Kidney Diseases 202;79(2):268-88.e1. 2. N Engl J Med 1 Vol. 385 Issue 19 Pages 2078-9535 Performed By: #### 8 2948 #### NURSING GLUCOSE PROGRAM [address] [place], [address] Glucose [Mass/Vol] 104 mg/dL Normal 74-109 [facility] Comment on above: Performed By: #### 8 2948 #### NURSING GLUCOSE PROGRAM [address] [place], [address] Potassium [Moles/Vol] 3.5 mmol/L Normal 3.5-5.0 [facility] Comment on above: Result Comment: Note updated reference ranges. Note updated reference ranges. Performed By: #### 8 2948 #### NURSING GLUCOSE PROGRAM [address] [place], [address] Sodium [Moles/Vol] 138 mmol/L Normal 136-145 [facility] Comment on above: Result Comment: Note updated reference ranges. Performed By: #### 8 2948 #### NURSING GLUCOSE PROGRAM [address] [place], [address] Urea nitrogen [Mass/Vol] 24 mg/dL Normal 7-25 [facility] Comment on above: Result Comment: Note updated reference ranges. Performed By: #### 8 2948 #### NURSING GLUCOSE PROGRAM [address] [place], [address] BLOOD CULTUREon 02-21-2023 Bacteria identified Cx Nom (Bld) No Growth [facility] Interpretation and review of laboratory results Normal [facility] metabolic 2000 panelon 02-21-2023 Anion gap [Moles/Vol] 9 mmol/L Low 10 - 20 [facility] Calcium [Mass/Vol] 7.5 mg/dL Low 8.6 - 10. 3 mg/dL [facility] Chloride [Moles/Vol] 100 mmol/L 98 - 107 mmol/L [facility] CO2 [Moles/Vol] 33 mmol/L High 21 - 31 mmol/L [facility] Creatinine [Mass/Vol] 0.65 mg/dL Low 0.70 - 1.30 mg/dL [facility] GFR/1.73 sq M.predicted CKD-EPI (S/P/Bld) [Vol rate/Area] 99 - PINF [facility] Glucose [Mass/Vol] 104 mg/dL 74 - 109 mg/dL [facility] Interpretation and review of laboratory results Abnormal [facility] Potassium [Moles/Vol] 3.5 mmol/L 3.5 - 5.0 mmol/L [facility] Sodium [Moles/Vol] 138 mmol/L 136 - 145 mmol/L [facility] Urea nitrogen [Mass/Vol] 24 mg/dL 7 - 25 mg/dL [facility] CBC panel Auto (Bld)on 02-21 Erythrocyte distribution width (RBC) [Ratio] 14.5 % 11.5 - 14.5 % [facility] Hematocrit (Bld) [Volume fraction] 21.8 % Low 41.0 - 53.0 % [facility] Hemoglobin (Bld) [Mass/Vol] 7.6 g/dL Low 13.9 - 16.3 g/dL [facility] Interpretation and review of laboratory results Abnormal [facility] MCH (RBC) [Entitic mass] 31.5 [...] 9.6 10*3/uL 4.5 - 11.5 K/uL M [facility] COMPLETE BLOOD COUNTon 02-21 Erythrocyte distribution width (RBC) [Ratio] 14.5 % Normal 11.5-14.5 [facility] Comment on above: Performed By: #### T S #### [facility] [address] [place] [address], Hematocrit (Bld) [Volume fraction] 21.8 % Low 41.0-53.0 [facility] Comment on above: Performed By: #### T S #### [facility] [address] [place] [address], Hemoglobin (Bld) [Mass/Vol] 7.6 g/dL Low 13.9-16.3 [facility] Comment on above: Performed By: #### T S #### [facility] [address] [place] [address], MCH (RBC) [Entitic mass] 31.5 pg Normal 26.0-34.0 [facility] Comment on above: Performed By: #### T S #### [facility] [address] [place] [address], MCHC (RBC) [Mass/Vol] 34.6 g/dL Normal 32.0-35.9 [facility] Comment on above: Performed By: #### T S #### [facility] [address] [place] [address], MCV (RBC) [Entitic vol] 91 fL Normal 80-100 [facility] Comment on above: Performed By: #### T S #### [facility] [address] [place] [address], Platelet mean volume (Bld) [Entitic vol] 8.3 fL Normal 7.5-11.2 [facility] Comment on above: Performed By: #### T S #### [facility] [address] [place] [address], Platelets (Bld) [#/Vol] 199 10*3/uL Normal 150-400 [facility] Comment on above: Performed By: #### T S #### [facility] [address] [place], [place], RBC (Bld) [#/Vol] 2.40 10*6/uL Low 4.50-5.90 [facility] Comment on above: Performed By: #### T S #### [facility] [address] [place], [place], WBC (Bld) [#/Vol] 9.6 10*3/uL Normal 4.5-11.5 [facility] Comment on above: Performed By: #### T S #### [facility] [address] [place], [place], Care Plan Noteon 02-21-2023 Swing Ride Operator Authentication Interface Message Text Problem: Routine Care: [...] and once discontinued Outcome: Progressing Normal [facility] GLUCOSE, FINGERSTICK-IN OFFI CEon 02-21-2023 Glucose [Mass/Vol] 144 mg/dL High 80-116 [facility] Comment on above: Performed By: #### 8 [id number] #### NURSING GLUCOSE PROGRAM [address] [place], [address] Glucose [Mass/Vol] 144 mg/dL High 80 - 116 mg/dL [facility] Interpretation and review of laboratory results Abnormal [facility] MAGNESIUMon 02-21-2023 Magnesium [Mass/Vol] 1.9 mg/dL Normal 1.6-2.8 [facility] Comment on above: Performed By: #### T S #### [facility] [address] [place] [address], [id number] Magnesium [Mass/Vol] 1.9 mg/dL 1.6 - 2.8 mg/dL [facility] No Panel Informationon 02-21 Interpretation and review of laboratory results Normal [facility] PHOSPHORUSon 02-21-2023 Phosphate [Mass/Vol] 2.3 mg/dL Normal 2.3-4.2 [facility] Comment on above: Performed By: #### T S #### [facility] [address] [place] [address], [id number] Phosphate [Mass/Vol] 2.3 mg/dL 2.3 - 4.2 mg/dL [facility] Procedureson 02-21-2023 Swing Ride Operator Authentication Interface Message Text Upper Extremities Venous Duplex [address] [place] [id number] Status:Open Demographics Patient name: JUAN Leung Gender: Male Date of : 1950 Age: 72 year(s) Procedure Information Procedure date: 02/21/2023 2:15 PM Procedure type: Vascular Proc. sub type: Veins, Upper Extremities Veins, LIMITED DUPLEX VEIN SCAN UE Accession no: [id number] Patient status: Routine Study location: Portable Technical quality: Poor visualization Limitation reason: Poor acoustical window Procedure Staff Referring Physician: SUKHWINDER BRIAN Performing Arts Technicians: RICKEY NúñezT Interpreting physician: NATAN Ceja MD Indications Pain, edema, discoloration. Risk Factors Additional comments: No significant history Page 1/2 JUAN Leung 1950 [id number] 02/21/2023 2:15 PM Upper Extremities Venous Duplex [...] jugular vein. Page 2/2 JUAN Leung 1950 [id number] 02/21/2023 2:15 PM Invalid Interpretation Code [facility] Progress Noteson 02-21-2023 Swing Ride Operator Authentication Interface Message Text Preliminary Vascular Lab Report Duplex Left Upper Extremity Vein Scan No evidence deep vein thrombus left upper extremity, official to follow report to follow. Masoud LANGT Normal [facility] Swing Ride Operator Authentication Interface Message Text Pt is rec for SNF Pt was denied from [facility] due to no available bed. Kamillaelena will like updates Friday before deciding to clinically accept. Pt is still pending med readiness Pt will not need precert SW will continue to follow Aj Marie [facility],SOIL SCIENCE TEACHER Normal [facility] Swing Ride Operator Authentication Interface Message Text At 19:40 patient [...] feel the way they did earlier. MD Brarientos notified of return to baseline. Will continue to monitor. Normal [facility] URINALYSIS WITH REFLEX CULTU RE PERFORMABLEon [...] JUDITH Harper8, PHOS #### S PATHOLOG[facility] LABORATORY [address] [place] [address], [id number] Protein (U) [Mass/Vol] 30 mg/dL Abnormal Negative [facility] Comment on above: Order Comment: A [...] Meredith CH8, PHOS #### [facility] [address] [place] [address], [id number] U APPEAR Clear Normal Clear [facility] [...] Meredith CH8, PHOS #### [facility] [address] [place] [address], U BILI Negative Normal Negative [facility] Comment on above: Order Comment: A [...] Meredith CH8, PHOS #### [facility] [address] [place] [address], U BLOOD Negative Normal Negative [facility] Comment on above: Order Comment: A [...] Meredith, CH8, PHOS #### [facility] [address] [place] [address], U COLOR Yellow Normal Colorless [facility] [...] Meredith, CH8, PHOS #### [facility] [address] [place] [address], U KETONE Negative Normal Negative [facility] Comment on above: Order Comment: A [...] G, CH8, PHOS #### [facility] [address] [place] [address], U LEUK Negative Normal Negative [facility] Comment on above: Order Comment: A [...] CH8, PHOS #### [facility] [address] [place], [place], U MUCOUS Present Normal [facility] Comment on above: Order Comment: A [...] JUDITH Harper8, PHOS #### [facility] [address] [place] [address], U NITRITE Negative Normal Negative [facility] Comment on above: Order Comment: A [...] CH8, PHOS #### [facility] [address] [place], [place], U PH 6.5 Normal 5.0-8.0 [facility] Comment on above: Order Comment: A [...] CH8, PHOS #### [facility] [address] [place], [place], U RBC 3-5 Abnormal 0-2 [facility] Comment on above: Order Comment: A [...] JUDITH Harper8, PHOS #### S [facility] [address] [place] [address], U SG 1.026 Normal <=1.030 [facility] Comment on above: Order Comment: A [...] Harper CH8, PHOS #### S [facility] [address] [place] [address], U UROBILI 2.0 mg/dL Abnormal Negative [facility] Comment on above: Order Comment: A [...] CH8, PHOS #### S [facility] [address] [place], [place], U WBC 3-5 Abnormal 0-2 [facility] Comment on above: Order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 Freitas, PHOS #### [facility] [address] [place], [place], Creatinine [Mass/Vol] 1.00 mg/dL Normal 0.70-1.30 [facility] Comment on above: Result Comment: Note updated reference ranges. Performed By: #### ASIA Freitas, PHOS #### [facility] [address] [place], [place], ESTIMATED GFR (CKD-EPI) 79 mL/min/1.73sqm Normal >=60 [facility] Comment on above: Result Comment: 2020 [...] Inclusion of Race in Diagnosing Kidney Disease. [place]ian Journal of Kidney Diseases 2021;79(2):268-88.e1. 2. N Engl J Med 1 Vol. 385 Issue 19 Pages 9827-3035 Performed By: #### ASIA Freitas, PHOS #### [facility] [address] [place], [place], Glucose [Mass/Vol] 189 mg/dL High 74-109 The [facility] Comment on above: Performed By: #### ASIA Freitas, PHOS #### [facility] [address] [place], [place], Potassium [Moles/Vol] 4.0 mmol/L Normal 3.5-5.0 [facility] Comment on above: Result Comment: Note updated reference ranges. Note updated reference ranges. Performed By: #### ASIA Freitas, PHOS #### [facility] [address] [place], [place], Sodium [Moles/Vol] 136 mmol/L Normal 136-145 [facility] Comment on above: Result Comment: Note updated reference ranges. Performed By: #### ASIA Freitas PHOS #### S PATHOLOGY LABORATORY [address] [place] [address], Urea nitrogen [Mass/Vol] 36 mg/dL High 7-25 [facility] Comment on above: Result Comment: Note updated reference ranges. Performed By: #### ASIA Freitas PHOS #### S PATH[facility] LABORATORY [address] [place] [address], BLOOD GAS, ARTERIALon 2022 CR GEOVANNI -1.0 mmol/L Normal -2.0-3.0 [facility] Comment on above: Performed By: #### C BC #### [facility] [address] [place] [address], CR PCO2 38.6 mm Hg Normal 35.0-45.0 [facility] Comment on above: Performed By: #### C BC #### [facility] [address] [place] [address], CR PHA 7.395 Normal 7.350-7.450 The [facility] Comment on above: Performed By: #### C BC #### S PATHOLOGY LABORATORY [address] [place] [address], CR PO2 81 mm Hg Normal 80-100 The [facility] Comment on above: Performed By: #### C BC #### S PATHOLOGY LABORATORY [address] [place] [address], FIO2 (CATEGORY) 2 LPM Normal [facility] Comment on above: Performed By: #### C BC #### S PATH[facility] LABORATORY [address] [place] [address], HCO3 (Bld) [Moles/Vol] 23 mmol/L Normal 21-28 The [facility] Comment on above: Performed By: #### C BC #### S PATHOLOGY LABORATORY [address] [place] [address], MODE Nasal Canula Normal [facility] Comment on above: Performed By: #### C BC #### S PATHOLOGY LABORATORY [address] [place] [address], Oxygen saturation in Blood 96.1 % Normal 95.0-99.0 [facility] Comment on above: Performed By: #### C BC #### [facility] [address] [place] [address], BLOOD GAS, VENOUSon 02-18-20 23 CR ABEV -0.3 mmol/L Normal -2.0-3.0 [facility] Comment on above: Performed By: #### C BC #### [facility] [address] [place] [address], CR HCO3V 25 mmol/L Normal 21-28 [facility] Comment on above: Performed By: #### C BC #### [facility] [address] [place] [address], CR PHV 7.367 Normal 7.320-7.430 [facility] Comment on above: Performed By: #### C BC #### [facility] [address] [place] [address], CR PVCO2 43.8 mm Hg Normal 41.0-51.0 [facility] Comment on above: Performed By: #### C BC #### [facility] [address] [place] [address], CR PVO2 36 mm Hg Low 38-44 [facility] Comment on above: Performed By: #### C BC #### [facility] [address] [place] [address], Oxygen saturation in Blood 67.1 % Low 70.0-80.0 [facility] Comment on above: Performed By: #### C BC #### [facility] [address] [place] [address], Basic metabolic 2000 panelon 02-17-2023 Anion gap [Moles/Vol] 11 mmol/L 10 - 20 [facility] Calcium [Mass/Vol] 8.3 mg/dL Low 8.6 - 10. 3 mg/dL [facility] Chloride [Moles/Vol] 105 mmol/L 98 - 107 mmol/L [facility] CO2 [Moles/Vol] 24 mmol/L 21 - 31 mmol/L [facility] Creatinine [Mass/Vol] 1.00 mg/dL 0.70 - 1.30 mg/dL [facility] GFR/1.73 sq M.predicted CKD-EPI (S/P/Bld) [Vol rate/Area] 79 - PINF [facility] Glucose [Mass/Vol] 189 mg/dL High 74 - 109 mg/dL [facility] Interpretation and review of laboratory results Abnormal [facility] Potassium [Moles/Vol] 4.0 mmol/L 3.5 - 5.0 mmol/L [facility] Sodium [Moles/Vol] 136 mmol/L 136 - 145 mmol/L [facility] Urea nitrogen [Mass/Vol] 36 mg/dL High 7 - 25 mg/dL [facility] CBC panel Auto (Bld)on 02-17 Erythrocyte distribution width (RBC) [Ratio] 14.9 % High 11.5 - 14.5 % [facility] Hematocrit (Bld) [Volume fraction] 29.5 % Low 41.0 - 53.0 % [facility] Hemoglobin (Bld) [Mass/Vol] 10.1 g/dL Low 13.9 - 16.3 g/dL [facility] Interpretation and review of laboratory results Abnormal [facility] MCH (RBC) [Entitic mass] 30.3 pg 26.0 - 34.0 pg [facility] MCHC (RBC) [Mass/Vol] 34.2 g/dL 32.0 - 35.9 g/dL [facility] MCV (RBC) [Entitic vol] 89 fL 80 - 100 fL [facility] Platelet mean volume (Bld) [Entitic vol] 8.6 fL 7.5 - 11.2 fL [facility] Platelets (Bld) [#/Vol] 145 10*3/uL Low 150 - 400 K/uL [facility] RBC (Bld) [#/Vol] 3.33 10*6/uL Low [facility] WBC (Bld) [#/Vol] 9.9 10*3/uL 4.5 - 11.5 K/uL [facility] COMPLETE BLOOD COUNTon 02-17 Erythrocyte distribution width (RBC) [Ratio] 14.9 % High 11.5-14.5 The [facility] Comment on above: Performed By: #### C BC ####[facility] [id number] [place], [place], Hematocrit (Bld) [Volume fraction] 29.5 % Low 41.0-53.0 The [facility] Comment on above: Performed By: #### C BC ####[facility] [id number] [place], [place], Hemoglobin (Bld) [Mass/Vol] 10.1 g/dL Low 13.9-16.3 The [facility] Comment on above: Performed By: #### C BC ####[facility] [id number] [place] [address], MCH (RBC) [Entitic mass] 30.3 pg Normal 26.0-34.0 The [facility] Comment on above: Performed By: #### C BC ####[facility] [id number] [place] [address], MCHC (RBC) [Mass/Vol] 34.2 g/dL Normal 32.0-35.9 The [facility] Comment on above: Performed By: #### C BC ####[facility] [id number] [place] [address], MCV (RBC) [Entitic vol] 89 fL Normal 80-100 The [facility] Comment on above: Performed By: #### C BC ####[facility] [id number] [place] [address], Platelet mean volume (Bld) [Entitic vol] 8.6 fL Normal 7.5-11.2 The [facility] Comment on above: Performed By: #### C BC ####[facility] [id number] [place] [address], Platelets (Bld) [#/Vol] 145 10*3/uL Low 150-400 The [facility] Comment on above: Performed By: #### C BC ####[facility] [id number] [place] [address], RBC (Bld) [#/Vol] 3.33 10*6/uL Low 4.50-5.90 The [facility] Comment on above: Performed By: #### C BC ####[facility] [id number] [place] [address] [place], WBC (Bld) [#/Vol] 9.9 10*3/uL Normal 4.5-11.5 [facility] Comment on above: Performed By: #### C BC ####[facility] [id number] [place], [place], Care Plan Noteon 02-17-2023 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 Patient scheduled for OR this date for fixation of left femur fracture. Will follow up post-operative as able and medically appropriate. Sylvia Alcantara PT Normal [facility] GLUCOSE, FINGERSTICK-IN OFFI CEon 02-17-2023 Glucose [Mass/Vol] 140 mg/dL High 80-116 [facility] Comment on above: Performed By: #### [id number] #### NURSING GLUCOSE PROGRAM [address] [place], [address] Glucose [Mass/Vol] 140 mg/dL High 80 - 116 mg/dL [facility] Interpretation and review of laboratory results Abnormal [facility] MAGNESIUMon 02-17-2023 Magnesium [Mass/Vol] 1.7 mg/dL Normal 1.6-2.8 The [facility] Comment on above: Performed By: #### C BC #### [facility] [address] [place], [place], Magnesium [Mass/Vol] 1.7 mg/dL 1.6 - 2.8 mg/dL [facility] MRSA SCREENOrdered By: Shari Ceja on 02-17-2023 Interpretation and review of laboratory results Normal [facility] [facility] MRSA isol Org specific cx Ql (Nose) No methicillin resistant Staphylococcus aureus isolated. No methicillin resistant Staphylococcus aureus isolated. [facility] No Panel Informationon 02-17 Interpretation and review of laboratory results Normal [facility] PHOSPHORUSon 02-17-2023 Phosphate [Mass/Vol] 2.6 mg/dL Normal 2.3-4.2 [facility] Comment on above: Performed By: #### C BC #### [facility] [address] [place], [place], Phosphate [Mass/Vol] 2.6 mg/dL 2.3 - 4.2 mg/dL [facility] Progress Noteson 02-17-2023 Swing Ride Operator Authentication Interface Message Text -------- GENERAL INFORMATION [...] 9-10 fracture was seen at [facility].The patient had 5 packs of RBCs, 3 packs of FFP, 1 platelet, TXA and Vit K from when he arrived to [facility] and in transit. Patient takes coumadin. 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 Normal [facility] XR CHEST AP OR PA 1 [...] Blood group O Rh(D) positive Normal [facility] Comment on above: Performed By: #### 8 [id number] #### [facility] GLUCOSE PROGRAM [address] [place], [address] BASIC METABOLIC PANELon 01-25 Anion gap [Moles/Vol] 14 mmol/L Normal 10-20 [facility] Comment on above: Performed By: #### C BC #### [facility] PATH[facility] LABORATORY [address] [place] [address], Calcium [Mass/Vol] 8.3 mg/dL Low 8.6-10.3 [facility] Comment on above: Result Comment: Note updated reference ranges. Performed By: #### C BC #### S PATHOLOGY LABORATORY [address] [place] [address], Chloride [Moles/Vol] 109 mmol/L High 98-107 [facility] Comment on above: Result Comment: Note updated reference ranges. Performed By: #### C BC #### S PATHOLOGY LABORATORY [address] [place] [address], CO2 [Moles/Vol] 20 mmol/L Low 21-31 [facility] Comment on above: Result Comment: Note updated reference ranges. Performed By: #### C BC #### S PATHOLOGY LABORATORY [address] [place], [place], Creatinine [Mass/Vol] 1.38 mg/dL High 0.70-1.30 [facility] Comment on above: Result Comment: Note updated reference ranges. Performed By: #### C BC #### S PATHOLOGY LABORATORY [address] [place], [place], ESTIMATED GFR (CKD-EPI) 54 mL/min/1.73sqm Low >=60 [facility] Comment on above: Result Comment: 2020 [...] Inclusion of Race in Diagnosing Kidney Disease. [place] Journal of Kidney Diseases 2021;79(2):268-88.e1. 2. N Engl J Med 2020 Vol. 385 Issue 19 Pages 5323-9616 Performed By: #### C BC #### [facility] [address] [place] [address], Glucose [Mass/Vol] 171 mg/dL High 74-109 [facility] Comment on above: Performed By: #### C BC #### S PATHOLOGY LABORATORY [address] [place] [address], Potassium [Moles/Vol] 4.5 mmol/L Normal 3.5-5.0 [facility] Comment on above: Result Comment: Note updated reference ranges. Note updated reference ranges. Performed By: #### C BC #### [facility] [address] [place] [address], Sodium [Moles/Vol] 138 mmol/L Normal 136-145 [facility] Comment on above: Result Comment: Note updated reference ranges. Performed By: #### C BC #### [facility] [address] [place] [address], Urea nitrogen [Mass/Vol] 38 mg/dL High 7-25 [facility] Comment on above: Result Comment: Note updated reference ranges. Performed By: #### C BC #### [facility] [address] [place] [address], Anion gap [Moles/Vol] 13 mmol/L Normal 10-20 [facility] Comment on above: Performed By: #### C BC #### [facility] [address] [place] [address], Calcium [Mass/Vol] 9.8 mg/dL Normal 8.6-10.3 [facility] Comment on above: Result Comment: Note updated reference ranges. Performed By: #### C BC #### S PATHOLOGY LABORATORY [address] [place] [address], Chloride [Moles/Vol] 111 mmol/L High 98-107 [facility] Comment on above: Result Comment: Note updated reference ranges. Performed By: #### C BC #### [facility] [address] [place] [address], CO2 [Moles/Vol] 25 mmol/L Normal 21-31 [facility] Comment on above: Result Comment: Note updated reference ranges. Performed By: #### C BC #### [facility] [address] [place] [address], Creatinine [Mass/Vol] 1.12 mg/dL Normal 0.70-1.30 [facility] Comment on above: Result Comment: Note updated reference ranges. Performed By: #### C BC #### [facility] [address] [place] [address], ESTIMATED GFR (CKD-EPI) 69 mL/min/1.73sqm Normal >=60 [facility] Comment on above: Result Comment: 2020 [...] Inclusion of Race in Diagnosing Kidney Disease. [place] Journal of Kidney Diseases 202;79(2):268-88.e1. 2. N Engl J Med 1 Vol. 385 Issue 19 Pages 7941-9555 Performed By: #### C BC #### S PATHOLOGY LABORATORY [address] [place], [place], Glucose [Mass/Vol] 130 mg/dL High 74-109 [facility] Comment on above: Performed By: #### C BC #### S PATHOLOGY LABORATORY [address] [place] [address], Potassium [Moles/Vol] 5.3 mmol/L High 3.5-5.0 [facility] Comment on above: Result Comment: Note updated reference ranges. Note updated reference ranges. Performed By: #### C BC #### [facility] [address] [place], [address] Sodium [Moles/Vol] 144 mmol/L Normal 136-145 [facility] Comment on above: Result Comment: Note updated reference ranges. Performed By: #### C BC #### [facility] [address] [place], [place], Urea nitrogen [Mass/Vol] 27 mg/dL High 7-25 [facility] Comment on above: Result Comment: Note updated reference ranges. Performed By: #### C BC #### [facility] [address] [place], [place], Anion gap [Moles/Vol] 12 mmol/L Normal 10-20 [facility] Comment on above: Performed By: #### 8 2948 #### NURSING GLUCOSE PROGRAM [address] [place], [address] Calcium [Mass/Vol] 10.2 mg/dL Normal 8.6-10.3 [facility] Comment on above: Result Comment: Note updated reference ranges. Performed By: #### 8 2948 #### NURSING GLUCOSE PROGRAM [address] [place] [address], [address] Chloride [Moles/Vol] 108 mmol/L High 98-107 [facility] Comment on above: Result Comment: Note updated reference ranges. Performed By: #### 8 2948 #### NURSING GLUCOSE PROGRAM [address] [place], [address] CO2 [Moles/Vol] 28 mmol/L Normal 21-31 [facility] Comment on above: Result Comment: Note updated reference ranges. Performed By: #### 8 2948 #### NURSING GLUCOSE PROGRAM [address] [place], [address] Creatinine [Mass/Vol] 1.02 mg/dL Normal 0.70-1.30 [facility] Comment on above: Result Comment: Note updated reference ranges. Performed By: #### 8 2948 #### NURSING GLUCOSE PROGRAM [address] [place], [address] ESTIMATED GFR (CKD-EPI) 77 mL/min/1.73sqm Normal >=60 [...] Inclusion of Race in Diagnosing Kidney Disease. [place] Journal of Kidney Diseases 202;79(2):268-88.e1. 2. N Engl J Med 1 Vol. 385 Issue 19 Pages 6180-1384 Performed By: #### 8 2948 #### NURSING GLUCOSE PROGRAM [address] [place], [address] Glucose [Mass/Vol] 125 mg/dL High 74-109 [facility] Comment on above: Performed By: #### 8 2948 #### NURSING GLUCOSE PROGRAM [address] [place], [address] Potassium [Moles/Vol] 4.5 mmol/L Normal 3.5-5.0 [facility] Comment on above: Result Comment: Note updated reference ranges. Note updated reference ranges. Performed By: #### 8 2948 #### NURSING GLUCOSE PROGRAM [address] [place], [address] Sodium [Moles/Vol] 143 mmol/L Normal 136-145 [facility] Comment on above: Result Comment: Note updated reference ranges. Performed By: #### 8 2948 #### NURSING GLUCOSE PROGRAM [address] [place], [address] Urea nitrogen [Mass/Vol] 25 mg/dL Normal 7-25 [facility] Comment on above: Result Comment: Note updated reference ranges. Performed By: #### 8 6588 #### NURSING GLUCOSE PROGRAM [address] [place], [address] BLOOD CULTUREon 02-16-2023 Bacteria identified Cx Nom (Bld) C BLOOD: No Growth Normal [facility] Comment on above: Performed By: #### M G, CH8, PHOS #### [facility] [address] [place], [address] BLOOD GAS, ARTERIALon 2022 Base excess Calc [...] (BldV) 7.367 [pH] 7.320 - 7.430 [facility] Basic metabolic 2000 panelon 02-16-2023 Anion gap [Moles/Vol] 14 mmol/L 10 - 20 [facility] Calcium [Mass/Vol] 8.3 mg/dL Low 8.6 - 10. 3 mg/dL [facility] Chloride [Moles/Vol] 109 mmol/L High 98 - 107 mmol/L [facility] CO2 [Moles/Vol] 20 mmol/L Low 21 - 31 mmol/L [facility] Creatinine [Mass/Vol] 1.38 mg/dL High 0.70 - 1.30 mg/dL [facility] GFR/1.73 sq M.predicted CKD-EPI (S/P/Bld) [Vol rate/Area] 54 Low - PINF [facility] Glucose [Mass/Vol] 171 mg/dL High 74 - 109 mg/dL [facility] Interpretation and review of laboratory results Abnormal [facility] Potassium [Moles/Vol] 4.5 mmol/L 3.5 - 5.0 mmol/L [facility] Sodium [Moles/Vol] 138 mmol/L 136 - 145 mmol/L [facility] Urea nitrogen [Mass/Vol] 38 mg/dL High 7 - 25 mg/dL [facility] Anion gap [Moles/Vol] 13 mmol/L 10 - 20 [facility] Calcium [Mass/Vol] 9.8 mg/dL 8.6 - 10. 3 mg/dL [facility] Chloride [Moles/Vol] 111 mmol/L High 98 - 107 mmol/L [facility] CO2 [Moles/Vol] 25 mmol/L 21 - 31 mmol/L [facility] Creatinine [Mass/Vol] 1.12 mg/dL 0.70 - 1.30 mg/dL [facility] GFR/1.73 sq M.predicted CKD-EPI (S/P/Bld) [Vol rate/Area] 69 - PINF [facility] Glucose [Mass/Vol] 130 mg/dL High 74 - 109 mg/dL [facility] Potassium [Moles/Vol] 5.3 mmol/L High 3.5 - 5.0 mmol/L [facility] Sodium [Moles/Vol] 144 mmol/L 136 - 145 mmol/L [facility] Urea nitrogen [Mass/Vol] 27 mg/dL High 7 - 25 mg/dL [facility] Blood Bank Slipon 02-16-2023 Blood Bank Slip [id number] [phone] [id number]# 1.00TIFF Normal [facility] CALCIUM, IONIZEDon 3 CR ICA 1.34 mmol/L High 1.15-1.33 [facility] Comment on above: Result Comment: This test was developed, and its performance characteristics determined by the Department of Pathology of The [facility]. It has not been cleared or approved by the FDA. This test is used for clinical purposes only. Performed By: #### C R ICA ####[facility] [id number] [place] [address], [id number] Calcium.ionized (Bld) [Moles/Vol] 1.34 mmol/L High 1.15 - 1.33 mmol/L [facility] Interpretation and review of laboratory results Abnormal [facility] CR ICA 1.24 mmol/L Normal 1.15-1.33 [facility] Comment on above: Result Comment: This test was developed, and its performance characteristics determined by the Department of Pathology of The [facility]. It has not been cleared or approved by the FDA. This test is used for clinical purposes only. Performed By: #### C BC #### [facility] [address] [place] [address], CALCIUM, IONIZEDOrdered By: Vivian Pena on 02-16-2023 Calcium.ionized (Bld) [Moles/Vol] 1.24 mmol/L 1.15 - 1.33 mmol/L [facility] Interpretation and review of laboratory results Normal [facility] CBC WITH DIFFERENTIALon 01-25 Basophils (Bld) [#/Vol] 0.01 10*3/uL Normal 0.00-0.20 [facility] Comment on above: Performed By: #### ASIA Freitas, PHOS #### S PATHOLOGY LABORATORY [address] [place] [address], Basophils/100 WBC (Bld) 0.1 % Normal <=1.9 [facility] Comment on above: Performed By: #### ASIA Freitas, PHOS #### S PATHOLOGY LABORATORY [address] [place] [address], Eosinophils (Bld) [#/Vol] 0.00 10*3/uL Normal 0.00-0.70 [facility] Comment on above: Performed By: #### ASIA Freitas, PHOS #### S PATHOLOGY LABORATORY [address] [place] [address], Eosinophils/100 WBC (Bld) 0.0 % Low 0.1-4.0 [facility] Comment on above: Performed By: #### Jennifer Harper CH8, PHOS #### S PATHOLOGY LABORATORY [address] [place] [address], Erythrocyte distribution width (RBC) [Ratio] 14.9 % High 11.5-14.5 [facility] Comment on above: Performed By: #### AISA Freitas, PHOS #### S PATHOLOGY LABORATORY [address] [place] [address], Hematocrit (Bld) [Volume fraction] 38.9 % Low 41.0-53.0 [facility] Comment on above: Performed By: #### ASIA Freitas, PHOS #### S PATHOLOGY LABORATORY [address] [place] [address], Hemoglobin (Bld) [Mass/Vol] 12.9 g/dL Low 13.9-16.3 [facility] Comment on above: Performed By: #### ASIA Freitas, PHOS #### S PATHOLOGY LABORATORY [address] [place] [address], Lymphocytes (Bld) [#/Vol] 0.42 10*3/uL Low 1.00-4.80 [facility] Comment on above: Performed By: #### ASIA Freitas, PHOS #### S PATHOLOGY LABORATORY [address] [place] [address], Lymphocytes/100 WBC (Bld) 3.3 % Low 24.0-44.0 [facility] Comment on above: Performed By: #### ASIA Freitas, PHOS #### S PATHOLOGY LABORATORY [address] [place] [address], MCH (RBC) [Entitic mass] 29.6 pg Normal 26.0-34.0 [facility] Comment on above: Performed By: #### ASIA Freitas, PHOS #### S PATHOLOGY LABORATORY [address] [place] [address], MCHC (RBC) [Mass/Vol] 33.2 g/dL Normal 32.0-35.9 [facility] Comment on above: Performed By: #### ASIA Freitas, PHOS #### S PATHOLOGY LABORATORY [address] [place] [address], MCV (RBC) [Entitic vol] 89 fL Normal 80-100 [facility] Comment on above: Performed By: #### ASIA Freitas, PHOS #### [facility] [address] [place] [address], MONOCYTE DISTRIBUTION WIDTH 20 Normal <=20 [facility] Comment on above: Performed By: #### ASIA Freitas, PHOS #### [facility] [address] [place], [place], Monocytes (Bld) [#/Vol] 1.18 10*3/uL High 0.20-1.00 [facility] Comment on above: Performed By: #### ASIA Freitas, PHOS #### [facility] [address] [place], [place], Monocytes/100 WBC (Bld) 9.1 % Normal 2.0-11.0 [facility] Comment on above: Performed By: #### ASIA Freitas, PHOS #### S PATHOLOGY LABORATORY [address] [place], [place], Neutrophils (Bld) [#/Vol] 11.30 10*3/uL High 1.50-8.00 [facility] Comment on above: Performed By: #### ASIA Freitas, PHOS #### [facility] [address] [place], [place], Neutrophils/100 WBC (Bld) 87.5 % High 31.0-76.0 [facility] Comment on above: Performed By: #### ASIA Freitas, PHOS #### [facility] [address] [place], [place], Platelet mean volume (Bld) [Entitic vol] 7.8 fL Normal 7.5-11.2 [facility] Comment on above: Performed By: #### ASIA Freitas, PHOS #### [facility] [address] [place], [place], Platelets (Bld) [#/Vol] 149 10*3/uL Low 150-400 [facility] Comment on above: Performed By: #### ASIA Freitas, PHOS #### [facility] [address] [place] [address], RBC (Bld) [#/Vol] 4.36 10*6/uL Low 4.50-5.90 [facility] Comment on above: Performed By: #### ASIA Freitas, MIGUEL #### [facility] [address] [place] [address], WBC (Bld) [#/Vol] 12.9 10*3/uL High 4.5-11.5 [facility] Comment on above: Performed By: #### ASIA Freitas, MIGUEL #### S PATHOLOGY LABORATORY [address] [place] [address], CBC panel Auto (Bld)Ordered By: Wesley Maloney on 02-16-2023 Erythrocyte distribution width (RBC) [Ratio] 14.8 % High 11.5 - 14.5 % [facility] Hematocrit (Bld) [Volume fraction] 30.0 % Low 41.0 - 53.0 % [facility] Hemoglobin (Bld) [Mass/Vol] 10.2 g/dL Low 13.9 - 16.3 g/dL [facility] Interpretation and review of laboratory [...] 9.2 10*3/uL 4.5 - 11.5 K/uL [facility] CBC panel Auto (Bld)on 02-16 Erythrocyte [...] (RBC) [Ratio] 14.8 % High 11.5-14.5 [facility] Comment on above: Performed By: #### C BC ####[facility] [id number] [place], [place], Hematocrit (Bld) [Volume fraction] 30.0 % Low 41.0-53.0 [facility] Comment on above: Performed By: #### C BC ####[facility] [id number] [place] [address], Hemoglobin (Bld) [Mass/Vol] 10.2 g/dL Low 13.9-16.3 [facility] Comment on above: Performed By: #### C BC ####[facility] [id number] [place] [address], MCH (RBC) [Entitic mass] 30.5 pg Normal 26.0-34.0 [facility] Comment on above: Performed By: #### C BC ####[facility] [id number] [place] [address], MCHC (RBC) [Mass/Vol] 34.1 g/dL Normal 32.0-35.9 [facility] Comment on above: Performed By: #### C BC ####[facility] [id number] [place] [address], MCV (RBC) [Entitic vol] 89 fL Normal 80-100 [facility] Comment on above: Performed By: #### C BC ####[facility] [id number] [place] [address], Platelet mean volume (Bld) [Entitic vol] 8.4 fL Normal 7.5-11.2 [facility] Comment on above: Performed By: #### C BC ####[facility] [id number] [place] [address], Platelets (Bld) [#/Vol] 134 10*3/uL Low 150-400 [facility] Comment on above: Performed By: #### C BC ####[facility] [id number] [place] [address], RBC (Bld) [#/Vol] 3.35 10*6/uL Low 4.50-5.90 [facility] Comment on above: Performed By: #### C BC ####[facility] [id number] [place] [address], WBC (Bld) [#/Vol] 9.2 10*3/uL Normal 4.5-11.5 [facility] Comment on above: Performed By: #### C BC ####[facility] [id number] [place] [address], Erythrocyte distribution width (RBC) [Ratio] 15.2 % High 11.5-14.5 [facility] Comment on above: Performed By: #### C BC ####[facility] [id number] [place] [address], Hematocrit (Bld) [Volume fraction] 37.7 % Low 41.0-53.0 [facility] Comment on above: Performed By: #### C BC ####[facility] [id number] [place] [address], Hemoglobin (Bld) [Mass/Vol] 12.4 g/dL Low 13.9-16.3 [facility] Comment on above: Performed By: #### C BC ####[facility] [id number] [place] [address], MCH (RBC) [Entitic mass] 29.4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 [place] [address] POCT PT 21.3 second(s) High 8.0-15.0 [facility] Comment on above: Performed By: #### 2 [id number] #### [facility] [address] [place] [address] POCT PT/INRon 09-06-2022 POCT INR 1.8 High .7-1.2 [facility] Comment on above: Performed By: #### 1 [id number], [id number], [id number], [id number] #### [facility] Laboratory [address] [place] [address] POCT PT 19.9 second(s) High 8.0-15.0 [facility] Comment on above: Performed By: #### 1 [id number], [id number], [id number], [id number] #### [facility] Laboratory [address] [place] [address] Tobacco Screening.on 023 Fall risk assessment a) No falls within the last year [facility] [address] DO Work Phone: Tobacco use status CP b) No [facility] [address] DO Work Phone: Tobacco Screening. Yes [facility] [address] DO Work Phone: [...] rhythm. Crispin Porter M.D. ca Dictated: 08/02/2022 [id number] Transcribed: 08/03/2022 Normal [facility] Comment on above: Result Comment: Elec tronically Signed By: German ESCOBEDO, Christopher Castro\Date and Time Signed: 08/19/22 13:42 EDT POCT PT/INRon 08-16-2022 POCT INR 3.1 High .7-1.2 [facility] Comment on above: Performed By: #### 2 [id number] #### [facility] [address] [place] [address] POCT PT 32.7 second(s) High 8.0-15.0 [facility] Comment on above: Performed By: #### 2 [id number] #### [facility] [address] [place] [address] Falls Screening (Age 18+)on 08-13-2022 Fall risk assessment a) No falls within the last year [facility] [address] DO Work Phone: Consent for Procedure/Surger yon 08-05-2022 Consent for Procedure/Surgery [id number]#1 .00CD:127 Normal [facility] Monitor Recordon 08-05-2022 Monitor Record [id number]#1 .00CD:127 Normal [facility] Cardiovascular Reporton Cardiovascular Report [id number]# 1.00CD:127 Normal [facility] Consent for Treatmenton Consent for Treatment [id number]#1 .00CD:127 Normal [facility] Consultation Noteon 08-03-19 Consultation Note Patient: [...] of Adverse/Allergic Reaction to Sedation: None. Normal [facility] Comment on above: Result Comment: Elec tronically Signed By: German ESCOBEDO, Christopher Bansal\.br\Date and Time Signed: 08/02/22 12:50 EDT Inpatient Clinical Summaryon 08-02-2022 Inpatient Clinical Summary [address] [address] Clinical Summary Person Information: Name: FREDRICK STROUD Age: 71 Years : 1950 Sex: Male PCP: KARINA MELGAR MD Marital Status: Phone: [phone] Race: White Ethnicity: Non- or Language: Cameroonian Visit Id: Visit Reason: I48.19 Speciality: Acuity: Enc Type: Ambulatory/Same Day Surgery Med Service: Cardiovascular Arrival: 08/02/2022 11:37:14 Discharge: Dispo Type: Address: [address] [place] [id number] Provider Notes: Diagnosis: Atrial fibrillation Problems Active [...] This Visit Final Med List: acetaminophen-hydroco done ([place] 325 mg-5 mg oral tablet) 1 Tablets [...] Follow up: With: Address: When: Christopher Porter [facility], [facility] [address] [place] [address] Business (1) Comments: Call for followup appointment Type Location Start Finish State Anticoagulation Follow Up 15 (FT) FT.CARDIO 08/16/2022 11:15 AM 08/16/2022 11:30 AM Confirmed Patient Education Information: CV - Cardioversion (CUSTOM) Normal [facility] Inpatient Patient Summaryon 08-02-2022 Inpatient Patient Summary [address] [address] Patient Discharge Instructions PERSON INFORMATION Name: FREDRICK [...] Follow up: With: Address: When: Christopher Waderick [facility], [facility] [address], [address] [place] [address] Business (1) Comments: Call for followup appointment [...] with No Changes Other Medications acetaminophen-hydroco done ([place] 325 mg-5 mg oral tablet) 1 Tablets [...] WITH YOU AT ALL TIMES. acetaminophen-hydroco done ([place] 325 mg-5 mg oral tablet) 1 Tablets [...] Pharmacy Information: Comment: PATIENT EDUCATION INFORMATION Instructions: [place], [place] CARDIOVERSION AFTER THE PROCEDURE: DIET: ? [...] the event (more content not included)... Normal [facility] Laboratory - Chemistry and C hemistry - challengeon 08-02-2022 CO2 [Moles/Vol] 27 mmol/L Normal 21-[address] [facility] 250 DO Work Phone: Laboratory - Coagulationon 0 08-02-2022 INR Coag (Bld) [Relative time] 3.5 {INR} [facility] y 250 DO Work Phone: Comment on above: INR results are spec ifically intended to assess patients stabilized on long-term Anticoagulation therapy suggested INR?s ?Less Intensive Anticoagulation? 2.0 ? 3.0Conventional Range 3.0 ? 4.5 Lyteson 08-02-2022 Anion gap [Moles/Vol] 12 mmol/L Normal 6-16 [facility] Comment on above: Order Comment: STAT on admission. Performed By: #### 2 [id number] #### [facility] [address] [place] [address] Chloride [Moles/Vol] 104 mmol/L Normal 101-111 [facility] Comment on above: Order Comment: STAT on admission. Performed By: #### 2 [id number] #### [facility] [address] [place] [address] CO2 [Moles/Vol] 27 mmol/L Normal 21-31 [facility] Comment on above: Order Comment: STAT on admission. Performed By: #### 2 [id number] #### [facility] [address] [place] [address] Potassium [Moles/Vol] 4.5 mmol/L Normal 3.5-5.3 [facility] Comment on above: Order Comment: STAT on admission. Performed By: #### 2 [id number] #### [facility] [address] [place] [address] Sodium [Moles/Vol] 138 mmol/L Normal 135-145 [facility] Comment on above: Order Comment: STAT on admission. Performed By: #### 2 [id number] #### [facility] [address] [place] [address] No Panel Informationon 06-09 -2023 12 {mEq/L} Normal 6-16 [facility] 250 DO Work Phone: 104 mmol/L Normal 101-111 [facility] Work Phone: [phone] 4.5 mmol/L Normal 3.5-5.3 [facility] 250 DO Work Phone: 138 mmol/L [facility] 135-[facility] Work Phone: [phone] 41.2 {second(s)} above high threshold 9.4-12.5 [facility] Work Phone: Comment on [...] the same coagulation reagent and instrumentation as [facility]. Currently there are no coagulation studies available worldwide for children to 14 days, and no normal ranges. PTon 08-02-2022 INR Coag (PPP) [Relative time] 3.5 {INR} Invalid Interpretation Code [facility] Comment on above: Order Comment: On ad mission if patient is on Coumadin therapy. Result Comment: INR results are specifically intended to assess patients stabilized on long-term Anticoagulation therapy suggested INR?s ?Less Intensive Anticoagulation? 2.0 ? 3.0 Conventional Range 3.0 ? 4.5 Performed By: #### 2 [id number] #### [facility] [address] [place] [address] PT Coag (PPP) [Time] 41.2 second(s) High 9.4-12.5 [facility] Comment on above: Order Comment: On [...] the same coagulation reagent and instrumentation as [facility]. Currently there are no coagulation studies available worldwide for children to 14 days, and no normal ranges. Performed By: #### 2 [id number] #### [facility] [address] [place] [address] Patient Education - Texton 0 08-02-2022 Patient Education - Text [place] CARDIOVERSION AFTER THE PROCEDURE: DIET: ? [...] event you are unable to reach your pipe fittings molder, please call Kenzie at [phone] and the scroll saw operator will assist you in contacting your [...] or toes turn cold or blue. Normal [facility] Progress Note-Physicianon Progress Note-Physician Patient: FREDRICK STROUD Age: 71 years Sex: Male : 1950 Associated Diagnoses: None Author: German ESCOBEDO, Christopher Bansal Impression and Plan DCC WITH PROPAFOL 70 MG AND 200 J SYNC ONCE TO NSR SAT>95 % NO NEURO CHANGES PLAN HOME ON SAME RX Normal [facility] Comment on above: Result Comment: Elec tronically Signed By: German ESCOBEDO, Christopher Bansal\.br\Date and Time Signed: 08/02/22 13:03 EDT POCT PT/INRon 07-26-2022 POCT INR 2.7 High .7-1.2 [facility] Comment on above: Performed By: #### 2 [id number] #### [facility] [address] [place] [address] POCT PT 29.2 second(s) High 8.0-15.0 [facility] Comment on above: Performed By: #### 2 [id number] #### [facility] [address] [place] [address] POCT PT/INRon 07-19-2022 POCT INR 3.2 High .7-1.2 [facility] Comment on above: Performed By: #### 2 [id number] ####[facility] [address] [place] [address] POCT PT 34.5 second(s) High 8.0-15.0 [facility] Comment on above: Performed By: #### 2 [id number] ####[facility] [address] [place] [address] Physician Orderon 07-16-2022 Physician Order [id number]#1 .00CD:127 Normal [facility] POCT PT/INRon 07-12-2022 POCT INR 4.3 High .7-1.2 [facility] Comment on above: Performed By: #### 1 [id number], [id number], [id number], [id number] #### [facility] [address] [place] [address] POCT PT 45.1 second(s) High 8.0-15.0 [facility] Comment on above: Performed By: #### 1 [id number], [id number], [id number], [id number] #### [facility] [address] [place] [address] Falls Screening (Age 18+)on 07-05-2022 Fall risk assessment a) No falls within the last year [facility] [address] DO Work Phone: Tobacco use status [facility] b) No [facility] 600 DO Work Phone: Office Visit (Cardiology)on [...] HOURS Cardioversion; Status:Active - Retrospective Authorization; Requested for:[id number]; IO EKG Electrocardiogram- 12 Lead; Status:Complete; Done: [id number] SocHx: Former smoker Tobacco Use Screening; Status:Complete; Done: [id number] Patient Instructions Please bring all medicines, vitamins, [...] 2 MG Oral TabletTake as directed by [facility] coumadin clinic Zinc 50 MG [place] [...] negative for complaint. Vitals Vital Signs Recorded: [id number] 09:08AM Heart Rate72, Apical Arcrnmwl168, LUE, Sitting Vudcdwxfh57, LUE, Sitting Height5 ft 6 in Cpjibu972 lb BMI Ehwytrciyg03.54 kg/m2 BSA Calculated2.18 Tobacco Useb) No F (more content not included)... Normal [facility] POCT PT/INRon 06-26-2022 POCT INR See Comment Invalid Interpretation Code .7-1.2 [facility] Comment on above: Result Comment: Test ing error, please disregard previously charted results Performed By: #### 1 [id number], [id number], [id number], [id number] #### [facility] Laboratory [address] [place] [address] POCT PT See Comment Invalid Interpretation Code 8.0-15.0 [facility] Comment on above: Result Comment: Test ing error, please disregard previously charted results Performed By: #### 1 [id number], [id number], [id number], [id number] #### [facility] [address] [place] [address] ECG 12 lead ECGon 06-11-2022 ECG 12 lead ECG [facility] Main [address] [address] Electrocardiograph Report Signed Patient: Fredrick Stroud MR#: [id number] 427 : 1950 Acct:[id number] Age/Sex: 71 / M ADM Date: 06/11/22 Loc: EL Room: Type: [facility] Attending Dr: Christopher Porter MD [...] Wisam Torre MD 0 06/11/22 1650 Normal [facility] ECG post procedureon 023 ECG post procedure [facility] Main [address] [address] Electrocardiograph Report Signed Patient: Fredrick Stroud MR#: [id number] 427 : 1950 Acct:[id number] Age/Sex: 71 / M ADM Date: 06/11/22 Loc: EL Room: Type: [facility] Attending Dr: Christopher Porter MD [...] Wisam Torre MD 0 06/11/22 1650 Normal [facility] Electrolyteson 06-11-2022 Anion gap [Moles/Vol] 12.3 mmol/L Normal 6.0-15.0 [facility] Comment on above: Result Comment: PERF ORMED BY: [place] [address] PATHOLOGIST WARP TYING MACHINE TENDER EYAD HOWARD M.D. Performed By: #### C BC, CMP, HS TROP, BNP #### [facility] [address] [place] [address] Chloride [Moles/Vol] 103 mmol/L Normal 98-107 [facility] Comment on above: Performed By: #### C BC, CMP, HS TROP, BNP #### [facility] [address] [place] [address] [place] CO2 [Moles/Vol] 28.2 mmol/L Normal 21.0-31.0 [facility] Comment on above: Performed By: #### C BC, CMP, HS TROP, BNP #### [facility] [address] [place] [address] [place] Potassium [Moles/Vol] 4.5 mmol/L Normal 3.5-5.1 [facility] Comment on above: Performed By: #### C BC, CMP, HS TROP, BNP #### [facility] [address] [place], [place] [id number] [facility] Sodium [Moles/Vol] 139 mmol/L Normal 136-145 [facility] Comment on above: Performed By: #### C BC, CMP, HS TROP, BNP #### [facility] [address] [id number] [facility] No Panel Informationon 06-11 12.3\S\12.3 Normal 6.0-15.[address] [facility] 250 DO Work Phone: [phone] Comment on above: PERFORMED BY:[facility] [place], [place] [id number] MEDICAL DIRECTOREYAD HOWARD M.D. 28.2\S\28.2 Normal 21.0-31.[address] [facility] 250 DO Work Phone: 103\S\103 Normal 98-[address] [facility] 250 DO Work Phone: [phone] 4.5\S\4.5 Normal 3.5-5.[address] [facility] 250 DO Work Phone: 139\S\139 Normal 136-[address] [facility] DO Work Phone: POCT PT/INRon 06-07-2022 POCT INR 2.7 High .7-1.2 [facility] Comment on above: Performed By: #### 2 [id number] #### [facility] [address] [place] [address] POCT PT 28.8 second(s) High 8.0-15.0 [facility] Comment on above: Performed By: #### 2 [id number] #### [facility] [address] [place] [address] POCT PT/INRon 05-28-2022 POCT INR 2.8 High .7-1.2 [facility] Comment on above: Performed By: #### 1 [id number], [id number], [id number], [id number] #### [facility] [address] [place] [address] POCT PT 30.6 second(s) High 8.0-15.0 [facility] Comment on above: Performed By: #### 1 [id number], [id number], [id number], [id number] #### [facility] [address] [place] [address] POCT INR Error Invalid Interpretation Code .7-1.2 [facility] Comment on above: Performed By: #### 2 [id number] #### [facility] [address] [place] [address] POCT PT Strip Error Invalid Interpretation Code 8.0-15.0 [facility] Comment on above: Performed By: #### 2 [id number] #### [facility] [address] [facility] [place] [address] POCT PT/INRon 05-21-2022 POCT INR 3.1 High .7-1.2 [facility] Comment on above: Performed By: #### 1 [id number], [id number], [id number] #### [facility] Laboratory [address] [facility] [place] [address] POCT PT 33.1 second(s) High 8.0-15.0 [facility] Comment on above: Performed By: #### 1 [id number], [id number], [id number], [id number] #### [facility] Laboratory [address] [facility] [place] [address] POCT PT/INRon 05-14-2022 POCT INR 3.2 High .7-1.2 [facility] Comment on above: Performed By: #### 2 [id number] ####[facility] [address] [facility] [address] POCT PT 34.5 second(s) High 8.0-15.0 [facility] Comment on above: Performed By: #### 2 [id number] ####[facility] [address] [place] [address] POCT INR Error Invalid Interpretation Code .7-1.2 [facility] Comment on above: Performed By: #### 2 [id number] #### [facility] Laboratory [address] [place] [address] POCT PT Strip Error Invalid Interpretation Code 8.0-15.0 [facility] Comment on above: Performed By: #### 2 [id number] #### [facility] Laboratory [address] [place] [address] Falls Screening (Age 18+)on 05-02-2022 Fall risk assessment a) No falls within the last year -[facility] 600 DO Work Phone: Progress Note-Physicianon Progress [...] stroke: no 4. Serious co-morbid conditions (recent MT, anemia with Hct <30%, CRI with SCr > 1.5, DM): no Score = 1/4 Risk (low = 0, mod = 1-2, high = 3-4): Health Status Allergies: Allergic Reactions (Selected) No Known Medication Allergies, Allergies (1) Active Reaction No Known Medication Allergies None Documented Current medications: (Selected) Prescriptions Prescribed MDI spacer adult: 1 EA, Inhalation, As Directed, 1 EA, Refill(s) 0 [place] 325 mg-5 mg oral tablet: 1 tab(s), [...] spacer adult 1 EA, Inhalation, As Directed [place] 325 mg-5 mg oral tablet 1 tab(s), PRN, Oral, q6hr Ventolin HFA 90 mcg/inh inhalation aerosol with adapter 2 puff(s), PRN, Inhalation, q6hr Coumadin , No qualifying data available Problem list: All Problems HTN (hypertension) / SNOMED CT 1881905856 / Confirmed Class 3 severe obesity with body mass index (BMI) of 40.0 to 44.9 in adult / SNOMED CT 3673337723 / Confirmed Resolved: Cancer of prostate / SNOMED CT 0437164829, Active Problems (2) Class 3 severe obesity [...] stroke: no 4. Serious co-morbid conditions (recent MT, anemia with Hct <30%, CRI with SCr > 1.5, DM): no Score = 1/4 Risk (low = 0, mod = 1-2, high = 3-4): Normal [facility] Comment on above: Result Comment: Elec [...] and has been managed by the [facility] Coumadin clinic. He says he is therapeutic [...] Recorded: 29Apr2022 11:48AM Heart Rate60, R Radial Hxmbnjek543 Azbucyzed90 Height5 ft 6 in Glvjsy972 lb 6 oz BMI Osyddhwshd86.09 kg/m2 BSA Calculated2.19 Tobacco Useb) No Falls Screening (Age 18+)a) No falls within the last year Physical Exam Constitutional: alert and in no acute distress. Eyes: no erythema, swelling or discharge from the eye . Neck: neck i (more content not included)... Normal [employer] Tobacco Screening.on 023 Fall risk assessment a) No falls within the last year [facility] 600 DO Work Phone: Tobacco use status [facility] b) No [facility] 600 DO Work Phone: POCT PT/INRon 04-19-2022 POCT INR 1.7 High .7-1.2 [facility] Comment on above: Performed By: #### 1 [id number], [id number], [id number], [id number] #### [facility] Laboratory [address] [place] [address] POCT PT 19.1 second(s) High 8.0-15.0 [facility] Comment on above: Performed By: #### 1 [id number], [id number] #### [facility] Laboratory [address] [place] [address] Coding Summary.on 04-08-2022 Coding Summary. CD:[id number] G h0bWw+PGhlYWQ+ML5GGRO jF73sbBAnvA9EA8zKAM7U CTWUKQRJIS0ZFI3epFH3N FvgH6NxvwHr CyqwkRXzQF17QLg1GJX6j AmgNOjxuK6qxTLsN5c6Dv OqEF33sT03VLjzKTFkXoO 3LjZpbjsgbWFy R3vbSxYwhJDgLus+PHRhY mxlIHdpZHRoPScxMDAlJy KyoKocPA8xSy3qOTCpUHN vbGxhcHNlOiBj o5cdFCSkFPjpMG0ebTpmC 9QuzRG6MGKhw3y9Gc04aZ I+LARvRDH8iCkmRNunw93 7JqFxb6wsUEP5 fIUfRUypAUL2V21wr8M0X EUxQAClRSC3jPK5nZ2vlY mntycsZ8OlmZCpAgI8FJL 2iCVljS6joPbx wofqtE7hJbt+Q87RVM8EU QJIUC0HVzk9Z6HiDhxfsD I+NO51JRCkSD29uHQuhZD cw7yodEi0NySm SNCaBDY4iRgtSQvwi0HzJ DPtX22dsOTlo3S4IKUbbC hdqFRtBbDrdMC4kG6dEFk igjarq2fnhmku Gxkkc9lztb02kE80C60pG VkqZQOzJRJ7QBOyNKJotA sfnz8gbS0kTo9+FOiku9n so3uybHo9IvAr MTCheaLpvGquAKO0h1ImL n31T5AxnKnsa6HxVxk0tf 12jWNgh1S1sPY3VFczTSD iqT2vYQerTuJ8 EJJrJgSpeV94yHWaXWmeJ a2naGyzqRqxMX1jGKNjds raUPZmlX2uLTMezGOxcQw dVN0yOPUqlhcv a747EfQaWMP9EDPzaOEmH 5VbkP4iMqIxCXZwOITmD0 MdoNHbXHefZ483HKklEsN 0CKVifyIjG5Ud SVGkgEodPrP5d2U0Xi5Tp 6RplxvmQNS1BEvdIQUxOs RfBaLkBuH8F2GuBou5MZY veUinJX4wZ5Zo YIYxgretyjtyvTU9CCFaB ZBnnD78cBNrTFbtNz8qh3 O6i826GGQlQBTrdO05Ci1 udDogMTBwdCBU oT4fbqjdc1gjnivgFpRuM SSpZBn6XQy7LMGkaSluVz PtYZO2RzO4UUW3rBMtsJ5 loEmqtktjjS3d Oyc+T69mcL8yKDT3XQI3m heiXIEbbzIiJK08DU48R5 RyPjwvdGFibGU+PGRpdiB qtHrwQP6xLdGk g7uxh4DnCFkjR4PwPYXdZ ByaItx0OVRgZDF3oOZ6aY 8yVSSoXLuqd2C1sPG7R3D jxlPwoc7db3we WRXoLDduM41kySPay6T9L OYgjNI0TLGnjBmaQrVbfX 93Oyc+MFEboDvmn5VaCmc ep4nmg4wgmYn7 NeNsKQIuvvRbhAqqTPH7c 4WuEj00Z21uFYbnULIfXD PxERCvSCCurJkuwt9prI0 wIi8+PGNvbCB3 oXL6dS2gOQKuNkG1QKvpV 898YyWhsNTgHcbyq5cjk9 pkvBz1HhLjOUGthmIcrGf xNXQ7a6FwRx61 C86yVRajAZMrYONsAPGvC URfsXfvun5dfH9rNf3+PC 4df8lyuc66kX13nXE+PHR tDCJ6uZvtTSpk IFTjtB9dGFdzHvY0TZMsU aBpcU39vNRtDRccVm3szH euuJeqIV1gUKCtjkqot57 6PqPou8yyNXMu gGWvTCmmOAE2P91kd4Z9J GVqNPUhUKN2tST4hA6kyE lnbjogbGVmdDsgdmVydGl bKPjiXYlzU337 IHRvcDsnPlBhdGllbnQgT nYsGIz1J0XdToy9KFMjcB doKU4tcIViHQnrBo3lsYj nsRagGB8kTNVx zwuhq470RlPdq0yzCVBgw MQtXUjxARR6N73dc3T5PD NzZWPbFAZ1dCL0cC3mqEr nbjogbGVmdDsg utTeoFywLCdgXZwnH285V HRvcDsnPkJpcnRoIERhdG G6KM56KV61xNZux0D6hVY 4F8SaEZEnmnay vprqpKB8ISYjEXUebW81H n2eyXimTj0oJNErBRG9JT DdfGPnY9NijR2oSgOxGQK xGBXlE3NuaBQz MAprN258WScmScO4PHNjt cYuM0WzSXPpwQnaAqE0i3 N7Mf3NE6W0KV34DU54cSD ec4F5wVV4X6Zw AQPavgrhqzuiqWJ9JMXrR OSxpS54Wl1rnBxoDi5pRF KiGMC2JRJxpICbH5LrqK6 yOiAjMDAwMDAw H2TcrZZoRVjiZ974KQzmR fJ1JGGynzHuU5UrNYPsiJ ogGuF0p5J1Ld6QTPw3GR2 7KK70iBVvl4D4 kIA3A6KsHDCvfygitwaco KP5YPJaMUQraG88Vq2voI sgRx2fZTUrCCP5XTFstLK zR7GpaY4nOwOk SGGkKHLbD8HsmXNgWZsnO 817ZOiiCpJ8YSWcfuUdI1 GrJBHpeXdfZvK6p8X4Bw4 LSRZsKV33SND0 mHI5TH86FI94Y0QpHurzp GFibGU+PHRhYmxlIHdpZH RoPScxMDAlJyBzdHlsZT0 lNv5dQKOdDQBc nPqiqTHdHtCui1rbVHRvT AgzEP7kyDvfB8DhuUX7OZ Dew5d8Od76R64iB2GhxEV +XXMpvFE6nYW6 mP6kLyCiEmD3BBguM760R lIqsNBmUysnq6uur6ftsQ b0WgC2OQSkcoXztMsvXVO 2e5LgJf66D32r IHdpZHRoPSIxNSUiIHZhb Fgxia3fgA4wXl1+PGNvbC B9cFH9kN8uYsQbHvL7SIn fE212XtCgrTAc Cjoel0tbk0ptuGp3SaHqF ULoymAqdYaaAJT0n0FtSy 35U4OgtMcvl7XdYhk2zt0 4nMGrq7K6gGG4 C8RgVPCcvfhyuDLqcYkvH P7zMVAcyxyuJJHkeH3vJL AuV4g3OiMhGqI9RCjsJ4N ewxP4QXJigOYm ZNyhZNJ4N57rb4D7FSFoN RLgCGH4pAU3aU0dmNmzzi ogbGVmdDsgdmVydGljYWw yUKbpB827BOMp dRmhDNVzwU8zNKSzxDEpw DsfUB3vPXWuswuaRsRPHt WAGPcdFVXBKfeIKFb3M8E uKcz7VQZgjPxd AS0daKEyURaaUa5sfUmwi DriRH3fJULixpmvHOMqoB 1aXPEzoQTxzLwtSC2yLGX ydnkwu304RsGo AGW8QPInpZOxU2CnoH9vL nAqJJOpYSCkP0DyxWRfDI wnP249UCxcCzA1XKOgysQ tR7RhXUFjvEcj QfG2m2J5Tt8bVU0mNR7jG QW7TH34BG33wNOpt7E4oA D7E5OiQJWldbawdocllYW 2QMHaDYIzwU09 jJCoSYryHo6pb2H1n779D LXqJPGmnJ18Ky1hsVpnVK OusITBkJ6yisczm0ixdof gIzAwMDAwMDt0 NBb2JZJteQlwKkYjRVH2Y tU7YTR1tKWsiB1pmRylpv zetT4uCpp+NzMgWWVhcnM 0W4HwPby7VZGl zJjrKU4tmTEmEBcvLo0lb XnxvJirRB6cPLBkhdduYG GkuZ0cAYEetBGtmBpoHV4 nGFJhbeaeu369 HnNeCGH6YFMfjVUeM5Vip J7cJnSqONTjXCGbR2AvkO DcBKhjJ650RIjqYdY9AYS vjlGlH5AmHJQd gHsmCyS4m6O0El0RZRcrH Y03VE19iHHlb5A6eXS4V8 FtBTZacqlklztjwWA7VJT mJJNkfJ74xOHb WMscAd8aa2Y2j491GQSgD QHsbT00Pw3cnUguCYXdxV DPbZ6hshczc7fgxpwhWhJ oLUVmCBd1HAq8 GJIujEtxWrHbFRR3VbB5S CM3aLGnvM8ptZqhdhmflU 9wOyc+TfNigEUwoC4wSV1 5MQ59Z0ZtJgmq dGFibGU+PHRhYmxlIHdpZ HRoPScxMDAlJyBzdHlsZT 5mDy6tYVFmARRynQoquJD bFmKav9nhQUUf JNsdJK6xbAqdC1LvnIE8Q QYnj1o3Hx48J55qN2HvaQ A+VVMuoGR3sBD6vG7vYzN nAbB4ERgxO551 CmDxfQXaGozjo4kgx2msm Ft6BuOeAWDnesOpjIyeWR C8r1JbSh18E91mIMlrLZZ oPSIyMCUiIHZh xBfzaq7nrL9xIu9+PGNvb WY2jPB1lO1eDlMlUlZ2XS qcH751TjFifZZtVxgoX39 iJ8OdvNF+PHRy Lix8PNIvpVaeEJ8oaRQyF GkdNt8jGKI4BgSsPqGxDT fkV5GkRYTfvwrqwqtgqWB 7ZOFpSMVvmZ22 Ne1txShtYy1yGJCkSJD5X KPflNQsQ0RnvC5lMdEmUQ RdRSEgA4YrzUCjYJyeV13 4IIymIiF8CSLx ruPwJ4PmSCDkjSfbGcW2k 4A9Io1BzJsohJRgKX7iCu CyPXs7Y8ZeRli7JWXkjCq bAG7bgQShZJun Zb7qvIjfcSfrVN2mGBExf jhtn429VvWig6wnIXLgiY QxNMsxSLM7J39pt9I1SUL dTKLmEQV1hYC2 rB5mqPiggxgewFFvoShoc kHifVmyCDebPFfuI540TX UcsDacRnZUTuu8P1XvZtp 5NCJwfVocAA4e bNFuJSuaJq6twZyriMcsM K6pQSRqxdjfe619NtFab8 pdQMFztHVfSRuhMBB8G87 xr6F8MKXsHSPp ZXV6qIE6yK7msVfgkpzzd GVmdDsgdmVydGljYWwtYW gjB697MPMgoXyfLv4MLob 5U1OoVsp1CNKu yEupLI5nsJAsEIoyQo0jo HbusXczIU7uILGwsntpp6 44WsVrs8whHVTuoXUrWBg dCXU4G88wu3C4 OLHxDEIqWQY8jQC8oK7vi GlnbjogbGVmdDsgdmVydG hfZDynUToxS120OCRchJh nPlBheWVyOjwv dGQ+AB18ih85F0QmLkguY bu5YYZdDYE7sGE6rQ2zYM NmXMull0B7pAZ6R0PbqaP rpy0db0agTMAp ZTog (more content not included)... Normal [facility] POCT PT/INRon 04-05-2022 POCT INR 1.3 High .7-1.2 [facility] Comment on above: Performed By: #### 2 [id number] #### [facility] Laboratory [address] [place] [address] POCT PT 15.0 second(s) Normal 8.0-15.0 [facility] Comment on above: Performed By: #### 2 [id number] #### [facility] Laboratory [address] [place] [address] POCT INR Error Invalid Interpretation Code .7-1.2 [facility] Comment on above: Performed By: #### 1 [id number], [id number], [id number] #### [facility] Laboratory [address] [place] [address] POCT PT Strip Error Invalid Interpretation Code 8.0-15.0 [facility] Comment on above: Performed By: #### 1 [id number], [id number], [id number], [id number] #### [facility] Laboratory [address] [place] [address] POCT INR Error Invalid Interpretation Code .7-1.2 [facility] Comment on above: Performed By: #### 1 [id number], [id number], [id number], [id number] #### [facility] Laboratory [address] [place] [address] POCT PT Strip Error Invalid Interpretation Code 8.0-15.0 [facility] Comment on above: Performed By: #### 1 [id number], [id number], [id number], [id number] #### [facility] Laboratory [address] [place] [address] Physician Orderon 04-01-2022 Physician Order [id number]# 1.00CD:127 Normal [facility] Consent for Treatmenton Consent for Treatment [id number]#1 .00CD:127 Normal [facility] POCT PT/INRon 03-29-2022 POCT INR 1.3 High .7-1.2 [facility] Comment on above: Performed By: #### 2 [id number] #### [facility] Laboratory [address] [place] [address] POCT PT 14.2 second(s) Normal 8.0-15.0 [facility] Comment on above: Performed By: #### 2 [id number] #### [facility] Laboratory [address] [place] [address] [facility] echo transthoracicon [facility] echo transthoracic [address] [address] Echocardiogram Signed Patient: Fredrick Stroud MR#: [id number] 427 : 1950 Acct:[id number] Age/Sex: 71 / M ADM Date: 03/27/22 Loc: Room: Type: [facility] Attending Dr: Sejal Link [employer] ON CALL-C Ordering Provider: Sejal Link APRN Date of Service: 03/27/22/ ECH/ECH echo transthoracic: Afib. SOB. HTN. Copies to: LUCY Hankins MD, [facility] BSA: 2.2 m2 BP: 125/82 mmHg [...] 03/27/22 1449 Signed By: Love Gaviria MD, [facility] 03/27/22 1557 Normal [facility] Free T4 (Free Thyroxine)on 0 03-27-2022 Free T4 [Mass/Vol] 1.01 ng/dL Normal 0.61-1.12 [facility] Comment on above: Order Comment: Reaso n for Exam Atrial fibrillation;Essential hypertension Performed By: #### C BC, CMP, HS TROP, BNP #### [facility] [address] TSH DL <= 0.005 mIU/L QnOrde red By: Sejal Link on 03-27-2022 TSH Qn 2.57 m[IU]/L 0.45-5.33 [facility] Thyroid Stimulating Hormoneo n 03-27-2022 TSH Qn 2.57 m[IU]/L Normal 0.45-5.33 [facility] Comment on above: Order Comment: Reaso n for Exam Atrial fibrillation;Essential hypertension Result Comment: PERF ORMED BY: [place] [address] PATHOLOGIST [employer]ACH[employer] TENDER EYAD HOWARD M.D. Performed By: #### C BC, CMP, HS TROP, BNP #### [facility] [address] [place] [address] [place] Thyroxine (T4) free [Mass/vo lume] in Serum or PlasmaOrdered By: Sejal Link on 03-27-2022 Free T4 [Mass/Vol] 1.01 ng/dL 0.61-1.12 [facility] Triiodothyronine (T3) Freeon 03-27-2022 Triiodothyronine (T3) Free 3.17 pg/mL Normal 2.50-3.90 [facility] Comment on above: Order Comment: Reaso n for Exam Atrial fibrillation;Essential hypertension Result Comment: PERF ORMED BY: [facility] [address] [place] [address] PATHOLOGIST [employer]ACH[employer] TENDER EYAD HOWARD M.D. Performed By: #### C BC, CMP, HS TROP, BNP #### [facility] [address] [place] [id number] [facility] Triiodothyronine (T3) Free [ Mass/volume] in Serum or PlasmaOrdered By: Sejal Link on 03-27-2022 Free T3 [Mass/Vol] 3.17 pg/mL 2.50-3.90 [facility] Office Visit (Cardiology)on 03-21-2022 Follow-up [...] Goal 2.0-3.0. Patient would like managed with [facility] Coumadin clinic Follow up in 2 [...] which include rate control with anticoagulation versus episcopal of maintenance of sinus rhythm. After discussing [...] Signs Recorded: 21Mar2022 02:26PM Heart Rate67, Apical Ieddvlem942, RUE, Czxqqvb664, LUE, Sitting Flpiisoid71, RUE, Zdkvjuu85, LUE, Sitting He (more content not included)... Normal [facility] Albumin [Mass/volume] in Ser um or PlasmaOrdered By: Yo Blood on 03-11-2022 Albumin [Mass/Vol] 4.1 g/dL 3.2-5.5 [facility] B-Type Natriuretic Peptideon 03-11-2022 Natriuretic peptide B (Bld) [Mass/Vol] 101.0 pg/mL High 5-100 [facility] Comment on above: Result Comment: PERF ORMED BY: [place] [address] PATHOLOGIST [employer]ACHINE TENDER EYAD HOWARD M.D. Performed By: #### C BC, CMP, HS TROP, BNP #### [address] Basophils Auto (Bld) [#/Vol] Ordered By: Yo Blood on 03-11-2022 Basophils (Bld) [#/Vol] 0.0 10*3/uL 0.0-0.2 [facility] Basophils/100 WBC Auto (Bld) Ordered By: Yo Blood on 03-11-2022 Basophils/100 WBC (Bld) 1.1 % . [facility] COVID-19 Antigenon 3 COVID-19 Antigen Healthcare Worker?: [...] developed and its performance characteristic determined by [employer] and validated at [facility]. This test has not been FDA cleared [...] for SARS Antigen by OLY PERFORMED BY: [facility] [address] [place] [address] PATHOLOGIST [employer]ACHINE TENDER EYAD HOWARD M.D. [facility] Comment on above: Performed By: #### C OVID-19 GERTRUDE SOFIANEG #### [facility] [address] COVID-19 SOFIAOrdered By: Buster Blood on 03-11-2022 SARS-CoV+SARS-CoV-2 (COVID-19) Ag IA.rapid Ql (Resp) Negative Negative [facility] Comment on above: This is a duplicate Gertrude SARS Antigen (OLY) result to be used for statistical tracking purpose only. Complete Blood Count Auto Di ffon 03-11-2022 Basophils (Bld) [#/Vol] 0.0 10*3/uL Normal 0.0-0.2 [facility] Comment on above: Result Comment: PERF ORMED BY: [place] [address] PATHOLOGIST [employer]ACH[employer] TENDER EYAD HOWARD M.D. Performed By: #### C BC, CMP, HS TROP, BNP #### [address] Basophils/100 WBC (Bld) 1.1 % Normal . [facility] Comment on above: Performed By: #### C BC, CMP, HS TROP, BNP #### [address] Eosinophils (Bld) [#/Vol] 0.0 10*3/uL Normal 0.0-0.45 [facility] Comment on above: Performed By: #### C BC, CMP, HS TROP, BNP #### [address] Eosinophils/100 WBC (Bld) 0.4 % Normal . [facility] Comment on above: Performed By: #### C BC, CMP, HS TROP, BNP #### [address] Erythrocyte distribution width (RBC) [Ratio] 14.0 % Normal 12.0-14.8 [facility] Comment on above: Performed By: #### C BC, CMP, HS TROP, BNP #### [address] Hematocrit (Bld) [Volume fraction] 46.7 % Normal 38.8-50.0 [facility] Comment on above: Performed By: #### C BC, CMP, HS TROP, BNP #### [address] Hemoglobin (Bld) [Mass/Vol] 15.3 g/dL Normal 13.0-17.0 [facility] Comment on above: Performed By: #### C BC, CMP, HS TROP, BNP #### [address] Lymphocytes (Bld) [#/Vol] 1.1 10*3/uL Normal 1.00-4.8 [facility] Comment on above: Performed By: #### C BC, CMP, HS TROP, BNP #### [address] Lymphocytes/100 WBC (Bld) 29.0 % Normal . [facility] Comment on above: Performed By: #### C BC, CMP, HS TROP, BNP #### [address] MCH (RBC) [Entitic mass] 29.4 pg Normal 27.5-35.2 [facility] Comment on above: Performed By: #### C BC, CMP, HS TROP, BNP #### [address] MCV (RBC) [Entitic vol] 89.6 fL Normal 83.5-101 [facility] Comment on above: Performed By: #### C BC, CMP, HS TROP, BNP #### [address] Mean Corpuscular HGB Conc 32.8 g/dL Normal 32.5-35.6 [facility] Comment on above: Performed By: #### C BC, CMP, HS TROP, BNP #### [place] [address] [place] Monocytes (Bld) [#/Vol] 0.8 10*3/uL Normal 0.0-0.8 [facility] Comment on above: Performed By: #### C BC, CMP, HS TROP, BNP #### [address] Monocytes/100 WBC (Bld) 20.67 % High 0.00-20.00 [facility] Comment on above: Result Comment: For adults in ED, MDW > 20.0 may be associated with a higher risk of sepsis during the first 12 hrs of hospital admission Performed By: #### C BC, CMP, HS TROP, BNP #### [facility] [address] Monocytes/100 WBC (Bld) 20.9 % Normal . [facility] Comment on above: Performed By: #### C BC, CMP, HS TROP, BNP #### [facility] [address] Neutrophils (Bld) [#/Vol] 1.8 10*3/uL Normal 1.8-7.7 [facility] Comment on above: Performed By: #### C BC, CMP, HS TROP, BNP #### [address] Neutrophils/100 WBC (Bld) 48.6 % Normal . [facility] Comment on above: Performed By: #### C BC, CMP, HS TROP, BNP #### [address] NRBC% 0.2 /100{WBC} Normal 0-0.5 [facility] Comment on above: Performed By: #### C BC, CMP, HS TROP, BNP #### [address] Platelet mean volume (Bld) [Entitic vol] 8.5 fL Normal 6.6-10.1 [facility] Comment on above: Performed By: #### C BC, CMP, HS TROP, BNP #### [place] [address] [place] Platelets (Bld) [#/Vol] 197 10*3/uL Normal 150-450 [facility] Comment on above: Performed By: #### C BC, CMP, HS TROP, BNP #### [place] [address] [place] RBC (Bld) [#/Vol] 5.21 10*6/uL Normal 3.90-5.60 [facility] Comment on above: Performed By: #### C BC, CMP, HS TROP, BNP #### [address] WBC (Bld) [#/Vol] 3.7 10*3/uL Low 4.1-10.5 [facility] Comment on above: Performed By: #### C BC, CMP, HS TROP, BNP #### [address] Comprehensive Metabolic Pane rigo 03-11-2022 Albumin [Mass/Vol] 4.1 g/dL Normal 3.2-5.5 [facility] Comment on above: Performed By: #### C BC, CMP, HS TROP, BNP #### [address] Albumin/Globulin [Mass ratio] 1.5 {ratio} Normal [facility] Comment on above: Performed By: #### C BC, CMP, HS TROP, BNP #### [address] ALP [Catalytic activity/Vol] 79 U/L Normal 32-92 [facility] Comment on above: Performed By: #### C BC, CMP, HS TROP, BNP #### [address] ALT [Catalytic activity/Vol] 23 U/L Normal 10-60 [facility] Comment on above: Performed By: #### C BC, CMP, HS TROP, BNP #### [address] Anion gap [Moles/Vol] 13.7 mmol/L Normal 6.0-15.0 [facility] Comment on above: Performed By: #### C BC, CMP, HS TROP, BNP #### [address] AST [Catalytic activity/Vol] 32 U/L Normal 10-42 [facility] Comment on above: Performed By: #### C BC, CMP, HS TROP, BNP #### [address] Bilirubin [Mass/Vol] 0.6 mg/dL Normal 0.3-1.2 [facility] Comment on above: Performed By: #### C BC, CMP, HS TROP, BNP #### [facility] [address] Calcium [Mass/Vol] 9.2 mg/dL Normal 8.2-10.2 [facility] Comment on above: Performed By: #### C BC, CMP, HS TROP, BNP #### [facility] [address] Chloride [Moles/Vol] 98 mmol/L Normal 95-114 [facility] Comment on above: Performed By: #### C BC, CMP, HS TROP, BNP #### [facility] [address] CO2 [Moles/Vol] 29.0 mmol/L Normal 22.0-30.0 [facility] Comment on above: Performed By: #### C BC, CMP, HS TROP, BNP #### [facility] [address] Creatinine [Mass/Vol] 0.86 mg/dL Normal 0.64-1.27 [facility] Comment on above: Performed By: #### C BC, CMP, HS TROP, BNP #### [address] Creatinine Clr Calc Pharmacy 91.63 [facility] Comment on above: Result Comment: PERF ORMED BY: [place] [address] PATHOLOGIST [employer] EYAD HOWARD M.D. Performed By: #### C BC, CMP, HS TROP, BNP #### [facility] [address] [place] [address] Estimated GFR ( Jessica > 60 Normal [facility] Comment on above: Result Comment: GFR estimated reference range: According to KDOQI guidelines, <60 ml/min/1.73m2 is sufficient to diagnose a patient with chronic kidney disease. Performed By: #### C BC, CMP, HS TROP, BNP #### [facility] [address] Estimated GFR (Non- Am > 60 Normal [facility] Comment on above: Performed By: #### C BC, CMP, HS TROP, BNP #### [facility] [address] Globulin (S) [Mass/Vol] 2.8 g/dL Normal [facility] Comment on above: Performed By: #### C BC, CMP, HS TROP, BNP #### [facility] [address] Glucose [Mass/Vol] 91 mg/dL Normal 70-100 [facility] Comment on above: Result Comment: [place] Glucose Reference Range is dependent on time and content of last meal. Glucose of more than 200 mg/dL in a nonstressed, ambulatory subject supports the diagnosis of Diabetes Mellitus. ADA recommended reference range Performed By: #### C BC, CMP, HS TROP, BNP #### [facility] [address] Potassium [Moles/Vol] 3.7 mmol/L Normal 3.5-5.1 [facility] Comment on above: Performed By: #### C BC, CMP, HS TROP, BNP #### [facility] [address] Protein [Mass/Vol] 6.9 g/dL Normal 6.1-7.9 [facility] Comment on above: Performed By: #### C BC, CMP, HS TROP, BNP #### [facility] [address] [place] [address] [place] Sodium [Moles/Vol] 137 mmol/L Normal 136-146 [facility] Comment on above: Performed By: #### C BC, CMP, HS TROP, BNP #### [facility] [address] Urea nitrogen [Mass/Vol] 10 mg/dL Normal 9-23 [facility] Comment on above: Performed By: #### C BC, CMP, HS TROP, BNP #### [facility] [address] [place] [address] Creatinine and Glomerular fi ltration rate.predicted panel (S/P/Bld)Ordered By: oY Blood on 03-11-2022 Creatinine [Mass/Vol] 0.86 mg/dL 0.64-1.27 [facility] ECG 12 lead ECGon 03-11-2022 ECG 12 lead ECG [facility] [address] [place] [id number] Electrocardiograph Report Signed Patient: Fredrick Stroud MR#: [id number] : 1950 Acct:[id number] Age/Sex: 71 / M ADM Date: 03/11/22 [...] voltage QRS Confirmed by Yo BLOOD DO ([id number]) on 03/11/2022 9:03:33 PM Referred By: Electronically Signed By:Yo BLOOD DO Transcribed By: MUS Signed By Yo Blood DO 0 03/11/222102 Normal [facility] ECG 12 lead ECG [facility] [address] [place] [id number] Electrocardiograph Report Signed Patient: Fredrick Stroud MR#: [id number] : 1950 Acct:[id number] Age/Sex: 71 / M ADM Date: 03/11/22 [...] voltage QRS Confirmed by Yo BLOOD DO ([id number]) on 03/11/2022 7:52:28 PM Referred By: Electronically Signed By:Yo BLOOD DO Transcribed By: MUS Signed By Yo Blood DO 0 03/11/221951 Normal [facility] Eosinophils Auto (Bld) [#/Vo l]Ordered By: Yo Blood on 03-11-2022 Eosinophils (Bld) [#/Vol] 0.0 10*3/uL 0.0-0.45 [facility] Eosinophils/100 WBC Auto (Bl d)Ordered By: Yo Blood on 03-11-2022 Eosinophils/100 WBC (Bld) 0.4 % . [facility] Erythrocyte distribution wid th Auto (RBC) [Ratio]Ordered By: Yo Blood on 03-11-2022 Erythrocyte distribution width (RBC) [Ratio] 14.0 % 12.0-14.8 [facility] Estimated glomerular filtrat ion rate (GFR) non- AmericanOrdered By: Yo Blood on 03-11-2022 GFR/1.73 sq M.predicted among non-blacks MDRD (S/P/Bld) [Vol rate/Area] > 60 mL/Min [facility] Globulin Calc (S) [Mass/Vol] Ordered By: Yo Blood on 03-11-2022 Globulin (S) [Mass/Vol] 2.8 g/dL [facility] Hematocrit Auto (Bld) [Volum e fraction]Ordered By: Yo Blood on 03-11-2022 Hematocrit (Bld) [Volume fraction] 46.7 % 38.8-50.0 [facility] Hemoglobin [Mass/volume] in BloodOrdered By: Yo Blood on 03-11-2022 Hemoglobin (Bld) [Mass/Vol] 15.3 g/dL 13.0-17.0 [facility] Laboratory - Chemistry and C hemistry - challengeOrdered By: Yo Blood on 03-11-2022 Natriuretic peptide B (Bld) [Mass/Vol] 101.0 pg/mL 5-100 [facility] Leukocytes [#/volume] correc vlad for nucleated erythrocytes in Blood by Automated counOrdered By: Yo Blood on 03-11-2022 WBC corrected for nucl RBC Auto (Bld) [#/Vol] 3.7 10*3/uL 4.1-10.5 [facility] Lymphocytes Auto (Bld) [#/Vo l]Ordered By: Yo Blood on 03-11-2022 Lymphocytes (Bld) [#/Vol] 1.1 10*3/uL 1.00-4.8 [facility] Lymphocytes/100 WBC Auto (Bl d)Ordered By: Yo Blood on 03-11-2022 Lymphocytes/100 WBC (Bld) 29.0 % . [facility] MCH Auto (RBC) [Entitic mass ]Ordered By: Yo Blood on 03-11-2022 MCH (RBC) [Entitic mass] 29.4 pg 27.5-35.2 [facility] MCHC Auto (RBC) [Mass/Vol]Or dered By: Yo Blood on 03-11-2022 MCHC (RBC) [Mass/Vol] 32.8 g/dL 32.5-35.6 [facility] MCV Auto (RBC) [Entitic vol] Ordered By: Yo Blood on 03-11-2022 MCV (RBC) [Entitic vol] 89.6 fL 83.5-101 [facility] Monocyte distribution width [Entitic volume] in Blood by AutomatedOrdered By: Yo Blood on 03-11-2022 Monocyte distribution width Auto (Bld) [Entitic vol] 20.67 % 0.00-20.00 [facility] Comment on above: For adults in ED, MD W > 20.0 may be associated with a higher risk of sepsis during the first 12 hrs of hospital admission Monocytes Auto (Bld) [#/Vol] Ordered By: Yo Blood on 03-11-2022 Monocytes (Bld) [#/Vol] 0.8 10*3/uL 0.0-0.8 [facility] Monocytes/100 WBC Auto (Bld) Ordered By: Yo Blood on 03-11-2022 Monocytes/100 WBC (Bld) 20.9 % . [facility] Neutrophils Auto (Bld) [#/Vo l]Ordered By: Yo Blood on 03-11-2022 Neutrophils (Bld) [#/Vol] 1.8 10*3/uL 1.8-7.7 [facility] Neutrophils/100 WBC Auto (Bl d)Ordered By: Yo Blood on 03-11-2022 Neutrophils/100 WBC (Bld) 48.6 % . [facility] No Panel InformationOrdered By: Yo Blood on 03-11-2022 SARS Antigen (LFIA) [facility] Estimated GFR () > 60 mL/Min [facility] Comment on above: GFR estimated refere nce range: According to KDOQI guidelines, <60 ml/min/1.73m2 is sufficient to diagnose a patient with chronic kidney disease. Pharmacy Creatinine Clearance (Chem 91.63 [facility] Nucleated erythrocytes [Pres ence] in Blood by Automated countOrdered By: Yo Blood on 03-11-2022 Nucleated RBC Auto Ql (Bld) 0.2 /100{WBC} 0-0.5 [facility] Platelet mean volume Auto (B ld) [Entitic vol]Ordered By: Yo Blood on 03-11-2022 Platelet mean volume (Bld) [Entitic vol] 8.5 fL 6.6-10.1 [facility] Platelets Auto (Bld) [#/Vol] Ordered By: Yo Blood on 03-11-2022 Platelets (Bld) [#/Vol] 197 10*3/uL 150-450 [facility] Protein [Mass/volume] in Ser um or PlasmaOrdered By: Yo Blood on 03-11-2022 Protein [Mass/Vol] 6.9 g/dL 6.1-7.9 [facility] RBC Auto (Bld) [#/Vol]Ordere d By: Yo Blood on 03-11-2022 RBC (Bld) [#/Vol] 5.21 10*6/uL 3.90-5.60 [facility] Serum or plasma alanine sullivan otransferase measurement without P-5'-P (enzymatic activiOrdered By: Yo Blood on 03-11-2022 ALT No additional P-5'-P [Catalytic activity/Vol] 23 U/L 10-60 [facility] Serum or plasma albumin/glob ulin mass ratioOrdered By: Yo Blood on 03-11-2022 Albumin/Globulin [Mass ratio] 1.5 {ratio} [facility] Serum or plasma alkaline faviola sphatase measurement (enzymatic activity/volume)Ordered By: Yo Blood on 03-11-2022 ALP [Catalytic activity/Vol] 79 U/L 32-92 [facility] Serum or plasma anion gap de terminationOrdered By: Yo Blood on 03-11-2022 Anion gap [Moles/Vol] 13.7 mmol/L 6.0-15.0 [facility] Serum or plasma aspartate am inotransferase measurement (enzymatic activity/volume)Ordered By: Yo Blood on 03-11-2022 AST [Catalytic activity/Vol] 32 U/L 10-42 [facility] Serum or plasma calcium echo urement (mass/volume)Ordered By: Yo Blood on 03-11-2022 Calcium [Mass/Vol] 9.2 mg/dL 8.2-10.2 [facility] Serum or plasma chloride tessie surement (moles/volume)Ordered By: Yo Blood on 03-11-2022 Chloride [Moles/Vol] 98 mmol/L 95-114 [facility] Serum or plasma glucose echo urement (mass/volume)Ordered By: Yo Blood on 03-11-2022 Glucose [Mass/Vol] 91 mg/dL 70-100 [facility] Comment on above: ADA recommended refe rence rangeRandom Glucose Reference Range is dependent on time and content of last meal. Glucose of more than 200 mg/dL in a nonstressed, ambulatory subject supports the diagnosis of Diabetes Mellitus. Serum or plasma potassium me asurement (moles/volume)Ordered By: Yo Blood on 03-11-2022 Potassium [Moles/Vol] 3.7 mmol/L 3.5-5.1 [facility] Serum or plasma sodium measu rement (moles/volume)Ordered By: Yo Blood on 03-11-2022 Sodium [Moles/Vol] 137 mmol/L 136-146 [facility] Serum or plasma total biliru bin measurement (mass/volume)Ordered By: Yo Blood on 03-11-2022 Bilirubin [Mass/Vol] 0.6 mg/dL 0.3-1.2 [facility] Serum or plasma total carbon dioxide measurement (moles/volume)Ordered By: Yo Blood on 03-11-2022 CO2 [Moles/Vol] 29.0 mmol/L 22.0-30.0 [facility] Serum or plasma urea nitroge n measurement (mass/volume)Ordered By: Yo Blood on 03-11-2022 Urea nitrogen [Mass/Vol] 10 mg/dL 11-16 [facility] Gertrude Ag Negativeon 03-11-19 Gertrude Ag Negative Negative Normal Negative [facility] Comment on above: Result Comment: This is a duplicate Gertrude SARS Antigen (OLY) result to be used for statistical tracking purpose only. PERFORMED BY: [place] [address] PATHOLOGIST [employer] MACHINE TENDER EYAD HOWARD M.D. Performed By: #### C OVID-19 GERTRUDE, SOFIANEG #### [facility] [address] [place] [address] [place] Troponin I High Sensitivityo n 03-11-2022 Troponin I High Sensitivity 9 pg/mL Normal 0-20 [facility] Comment on above: Result Comment: PERF ORMED BY: [place] [address] PATHOLOGIST [employer]ACHINE TENDER EYAD HOWARD M.D. Performed By: #### C BC, CMP, HS TROP, BNP #### [facility] [address] [place] [address] Troponin I.cardiac [Mass/vol ume] in Serum or Plasma by High sensitivity methodOrdered By: Yo Blood on 03-11-2022 Troponin I.cardiac High sensitivity method [Mass/Vol] 9 pg/mL 0-20 [facility] WBC Auto (Bld) [#/Vol]Ordere d By: Yo Blood on 03-11-2022 WBC (Bld) [#/Vol] 3.7 10*3/uL 4.1-10.5 [facility] XR chest 2V*on 03-11-2022 XR chest 2V* [facility] Main [address] [address] XRay Report Signed Patient: Fredrick Stroud MR#: [id number] 427 : 1950 Acct:[id number] Age/Sex: 71 / M ADM Date: 03/11/22 [...] Ga Dorsey M.D.03/11/2022 1:42 PM Dictation Location: [place] [address] Transcribed By: [facility] 03/11/22 1342 Dictated By: Ga Dorsey II, MD 03/11/22 1339 Signed By: 03/11/22 1342 Normal [facility] XR hip LT min 2V(w/wo pelvis )*on 09-26-2021 XR hip LT min 2V(w/wo pelvis)* [facility] Main [address] [address] XRay Report Signed Patient: Fredrick Stroud MR#: [id number] 427 : 1950 Acct:[id number] Age/Sex: 70 / M ADM Date: 09/26/21 Loc: SOXD Room: Type: [facility] Attending Dr: Shahriar Dhillon II, MD [...] Ariana Tanner M.D.09/26/2021 3:27 PM Dictation Location: [place] [address] Transcribed By: [facility] 09/26/21 152 Dictated By: Ariana Tanner MD 09/26/21 1526 Signed By: 09/26/21 1527 Normal [facility] XR hip LT min 2V(w/wo pelvis )*on 08-15-2021 XR hip LT min 2V(w/wo pelvis)* [facility] Main [place] [address] [place] [address] XRay Report Signed Patient: Fredrick Stroud MR#: [id number] 427 : 1950 Acct:[id number] Age/Sex: 70 / M ADM Date: 08/15/21 Loc: [facility] Room: Type: [facility] Attending Dr: Shahriar Dhillon II, MD [...] 08/15/21 1439 Signed By: 08/15/21 1440 Normal [facility] XR hip LT min 2V(w/wo pelvis)* [facility] [employer] Other XR hip LT min 2V(w/wo pelvis)* [facility] [place] [place] Main [place] [employer] Other XR hip LT min 2V(w/wo pelvis)* [address] [place] [address] [employer] Other XR hip LT min 2V(w/wo pelvis)* [place] [address] [employer] Other XR hip LT min 2V(w/wo pelvis)* XRay Report [employer] Other XR hip LT min 2V(w/wo pelvis)* Signed [employer] Other XR hip LT min 2V(w/wo pelvis)* Patient: Fredrick Stroud MR#: [id number] [employer] Other XR hip LT min 2V(w/wo pelvis)* 427 [employer] Other XR hip LT min 2V(w/wo pelvis)* : 1950 Acct:[id number] [employer] Other XR hip LT min 2V(w/wo pelvis)* Age/Sex: 70 / M ADM Date: 08/15/21 [employer] Other XR hip LT min 2V(w/wo pelvis)* Loc: SOXD Room: Type: [facility] [employer] Other XR hip LT min 2V(w/wo pelvis)* Attending Dr: Shahriar Dhillon II, MD [employer] Other XR hip LT min 2V(w/wo pelvis)* Copies to: Shahriar Dhillon MD [employer] Other XR hip LT min 2V(w/wo pelvis)* Ordering Provider: Shahriar Dhillon MD [employer] Other XR hip LT min 2V(w/wo pelvis)* Date of Service: 08/15/21 [employer] Other XR hip LT min 2V(w/wo pelvis)* XR/XR hip LT min 2V(w/wo pelvis)*: Aftercare following joint replacement [employer] Other XR hip LT min 2V(w/wo pelvis)* surgery [employer] Other XR hip LT min 2V(w/wo pelvis)* LEFT HIP - 2 views: 1 view pelvis [employer] Other XR hip LT min 2V(w/wo pelvis)* CLINICAL HISTORY: Follow-up left GEOVANI [employer] Other XR hip LT min 2V(w/wo pelvis)* COMPARISON: Hip series 07/02/2021 [employer] Other XR hip LT min 2V(w/wo pelvis)* FINDINGS: 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 Prostate radiation [employer] Other XR hip LT min 2V(w/wo pelvis)* seeds. Mild degenerative changes right hip. [employer] Other XR hip LT min 2V(w/wo pelvis)* XR/XR hip LT min 2V(w/wo pelvis)* [employer] Other XR hip LT min 2V(w/wo pelvis)* IMPRESSION: [employer] Other XR hip LT min 2V(w/wo pelvis)* NO EVIDENCE OF HARDWARE COMPLICATION. [employer] Other XR hip LT min 2V(w/wo pelvis)* Impression dictated by: Dandy Stevenson Jr., D.ODre08/15/2021 2:40 PM [employer] Other XR hip LT min 2V(w/wo pelvis)* Dictation Location: [facility] [employer] Other XR hip LT min 2V(w/wo pelvis)* Transcribed By: PWS 08/15/21 1440 [employer] Other XR hip LT min 2V(w/wo pelvis)* Dictated By: Dandy Stevenson Jr, DO 08/15/21 1439 [employer] Other XR hip LT min 2V(w/wo pelvis)* Signed By: [employer] Other XR hip LT min 2V(w/wo pelvis)* 08/15/21 1440 [employer] Other Basic Metabolic Panelon 05-1 Calcium [Mass/Vol] 8.6 mg/dL Normal 8.2-10.2 [facility] Comment on above: Performed By: #### C BC, BMP #### [facility] [address] [place] [address] [place] Chloride [Moles/Vol] 102 mmol/L Normal 95-114 [facility] Comment on above: Performed By: #### C BC, BMP #### [facility] [address] CO2 [Moles/Vol] 25.5 mmol/L Normal 22.0-30.0 [facility] Comment on above: Performed By: #### C BC, BMP #### [facility] [address] [place] [id number] [place] Creatinine [Mass/Vol] 0.96 mg/dL Normal 0.64-1.27 [facility] Comment on above: Performed By: #### C BC, BMP #### [facility] [address] [place] [id number] [place] Creatinine Clr Calc Pharmacy 81.73 Normal [facility] Comment on above: Result Comment: PERF ORMED BY: [facility] [address] [place] [address] PATHOLOGIST [employer]ACH[employer] TENDER EYAD HOWARD M.D. Performed By: #### C BC, BMP #### [address] Estimated GFR ( Jessica > 60 [facility] Comment on above: Result Comment: GFR estimated reference range: According to KDOQI guidelines, <60 ml/min/1.73m2 is sufficient to diagnose a patient with chronic kidney disease. Performed By: #### C BC, BMP #### [address] Estimated GFR (Non- Am > 60 [facility] Comment on above: Performed By: #### C BC, BMP #### [address] Glucose [Mass/Vol] 167 mg/dL High 70-100 [facility] Comment on above: Result Comment: [place] Glucose Reference Range is dependent on time and content of last meal. Glucose of more than 200 mg/dL in a nonstressed, ambulatory subject supports the diagnosis of Diabetes Mellitus. ADA recommended reference range Performed By: #### C BC, BMP #### [address] Potassium [Moles/Vol] 4.4 mmol/L Normal 3.5-5.1 [facility] Comment on above: Performed By: #### C BC, BMP #### [address] Sodium [Moles/Vol] 135 mmol/L Low 136-146 [facility] Comment on above: Performed By: #### C BC, BMP #### [address] Urea nitrogen [Mass/Vol] 18 mg/dL Normal 9-23 [facility] Comment on above: Performed By: #### C BC, BMP #### [address] Complete Blood Count Auto Di ffon 07-03-2021 Basophils (Bld) [#/Vol] 0.0 10*3/uL Normal 0.0-0.2 [facility] Comment on above: Result Comment: PERF ORMED BY: [place] [address] PATHOLOGIST [employer]ACH[employer] TENDER EYAD HOWARD M.D. Performed By: #### C BC, BMP #### [address] Basophils/100 WBC (Bld) 0.3 % Normal . [facility] Comment on above: Performed By: #### C BC, BMP #### [address] Eosinophils (Bld) [#/Vol] 0.0 10*3/uL Normal 0.0-0.45 [facility] Comment on above: Performed By: #### C BC, BMP #### [address] Eosinophils/100 WBC (Bld) 0.0 % Normal . [facility] Comment on above: Performed By: #### C BC, BMP #### [address] Erythrocyte distribution width (RBC) [Ratio] 14.2 % Normal 12.0-14.8 [facility] Comment on above: Performed By: #### C BC, BMP #### [address] Hematocrit (Bld) [Volume fraction] 32.9 % Low 38.8-50.0 [facility] Comment on above: Performed By: #### C BC, BMP #### [place] [address] [place] Hemoglobin (Bld) [Mass/Vol] 11.2 g/dL Low 13.0-17.0 [facility] Comment on above: Performed By: #### C BC, BMP #### [place] [address] [place] Lymphocytes (Bld) [#/Vol] 0.6 10*3/uL Low 1.00-4.8 [facility] Comment on above: Performed By: #### C BC, BMP #### [facility] [address] Lymphocytes/100 WBC (Bld) 4.7 % Normal . [facility] Comment on above: Performed By: #### C BC, BMP #### [facility] [address] MCH (RBC) [Entitic mass] 30.1 pg Normal 27.5-35.2 [facility] Comment on above: Performed By: #### C BC, BMP #### [facility] [address] MCV (RBC) [Entitic vol] 88.7 fL Normal 83.5-101 [facility] Comment on above: Performed By: #### C BC, BMP #### [address] Mean Corpuscular HGB Conc 33.9 g/dL Normal 32.5-35.6 [facility] Comment on above: Performed By: #### C BC, BMP #### [place] [address] [place] Monocytes (Bld) [#/Vol] 1.0 10*3/uL High 0.0-0.8 [facility] Comment on above: Performed By: #### C BC, BMP #### [place] [address] [place] Monocytes/100 WBC (Bld) 8.3 % Normal . [facility] Comment on above: Performed By: #### C BC, BMP #### [place] [address] [place] Neutrophils (Bld) [#/Vol] 10.9 10*3/uL High 1.8-7.7 [facility] Comment on above: Performed By: #### C BC, BMP #### [address] Neutrophils/100 WBC (Bld) 86.7 % Normal . [facility] Comment on above: Performed By: #### C BC, BMP #### [place] [address] [place] Nucleated RBC/100 WBC (Bld) [Ratio] 0.0 % Normal 0-0.5 [facility] Comment on above: Performed By: #### C AKHIL, BMP #### [facility] [address] Platelet mean volume (Bld) [Entitic vol] 8.4 fL Normal 6.6-10.1 [facility] Comment on above: Performed By: #### C AKHIL, BMP #### [facility] [address] Platelets (Bld) [#/Vol] 210 10*3/uL Normal 150-450 [facility] Comment on above: Performed By: #### C AKHIL, BMP #### [address] RBC (Bld) [#/Vol] 3.71 10*6/uL Low 3.90-5.60 [facility] Comment on above: Performed By: #### C AKHIL, BMP #### [address] WBC (Bld) [#/Vol] 12.5 10*3/uL High 4.5-11.0 [facility] Comment on above: Performed By: #### C AKHIL, BMP #### [address] ECG 12 lead ECGon 07-02-2021 ECG 12 lead ECG [facility] Main [place] [address] [place] [address] Electrocardiograph Report Signed Patient: Fredrick Stroud MR#: [id number] 427 : 1950 Acct:[id number] Age/Sex: 70 / M ADM Date: 07/02/21 Loc: [place] Room: Type: [facility] Attending Dr: Shahriar Dhillon II, [...] Signed By Moreno Rosario DO 07/02 1306 [facility] [place] 07-02-2021 L - -------- Specimen: [id number] Received: 07/02/21 Status: LORETTA Solis Num: [id number] Spec Type: Surgical Subm Dr: Shahriar Dhillon MD Tissues: A Femoral Head - Other than Fracture (L HIP) Procedures: LEONARD Richardson, Gross/Micro L3, Decal -------- Patient Age/Sex Location Account Attending Physician -------- Fredrick Stroud 70/M 4N [id number] Shahriar Dhillon MD -------- SPEC NUM: [id number] RECD: 07/02/21 STATUS: LORETTA SOLIS NUM: [id number] MILY: 07/02/21 DR: Shahriar Dhillon MD ENTERED: 07/02/21 [facility] DR: LEBRON TYPE: Surgical DEPT: S ORDERED: [...] bone fragments and scant soft tissue. A disability representative section of bone, following formalin fixation and decalcification is submitted in cassette A 1. (KULDEEP/NORA) -------- Specimen: [id number] Received: 07/02/21 Status: LORETTA Solis Num: [id number] Spec Type: Surgical Subm Dr: Shahriar Dhillon MD Tissues: A Femoral Head - Other than Fracture (L HIP) Procedures: HE Stain, Gross/Micro L3, Decal -------- Patient: Fredrick Stroud Madhu [id number] (Continued) -------- Specimen: Received: 07/02/21 (Continued) Signed (signature on file) Kaycee Curry MD 07/04/21 1625 -------- Specimen: Received: 07/02/21 Status: LORETTA Solis Num: [id number] Spec Type: Surgical Subm Dr: Shahriar Dhillon MD Tissues: A Femoral Head - Other than Fracture (L HIP) Procedures: HE Stain, Gross/Micro L3, Decal -------- Patient: Fredrick Stroud [id number] (Continued) -------- Specimen: [id number] Received: 07/02/21 (Continued) Microscopic Description One glass slide with H E stained material has been examined. The microscopic findings support the above pathologic diagnosis. CPT Codes 02792, 23479 -------- -------- Specimen: [id number] Received: 07/02/21 Status: LORETTA Solis Num: [id number] Spec Type: Surgical Subm Dr: Shahriar Dhillon MD Tissues: A Femoral Head - Other than Fracture (L HIP) Procedures: HE Stain, Gross/Micro L3, Decal -------- Patient: Fredrick Stroud [id number] (Continued) -------- Signed (signature on file) Kaycee Curry MD 07/04/21 1625 Normal [facility] XR hip LT 1Von 07-02-2021 XR hip LT 1V [place] [address] XRay Report Signed Patient: Fredrick Stroud MR#: [id number] 427 : 1950 Acct:[id number] Age/Sex: 70 / M ADM Date: 07/02/21 Loc: [place] Room: Type: [facility] Attending Dr: [...] Stevenson Jr, DO 07/02/21922 Signed By: 07/02/21925 [facility] XR low pelvis w/LT x-table h ipon 07-02-2021 XR low pelvis w/LT x-table hip [place] [address] XRay Report Signed Patient: Fredrick Stroud MR#: [id number] 427 : 1950 Acct:[id number] Age/Sex: 70 / M ADM Date: 07/02/21 Loc: [place] Room: Type: [facility] Attending Dr: [...] Tanner MD 07/02/21 120 Signed By: 07/02/211204 [facility] [place] [place] SARS-CoV-2 (COVID-19) RNA FABI+probe Ql (Unsp spec) Negative Normal Negative [facility] Comment on above: Order Comment: Healt hcare Worker?: N Result Comment: Testing for SARS-CoV-2 by RT-PCR This test was developed and its performance characteristics determined by [employer] and validated at the [facility]. This test has not been FDA cleared [...] is terminated or revoked sooner. PERFORMED BY: [place] [address] PATHOLOGIST [employer]YING MACHINE TENDER EYAD HOWARD M.D. Performed By: #### C BC, CMP, HS TROP, BNP #### [address] Basic Metabolic Panelon 05-26 Calcium [Mass/Vol] 9.4 mg/dL Normal 8.2-10.2 [facility] Comment on above: Result Comment: PERF ORMED BY: [place] [address] PATHOLOGIST [employer] MACHINE TENDER EYAD HOWARD M.D. Performed By: #### C OVID-19 GERTRUDE, SOFIANEG #### [place] [address] [place] Chloride [Moles/Vol] 103 mmol/L Normal 95-114 [facility] Comment on above: Performed By: #### C OVID-19 GERTRUDE, SOFIANEG #### [place] [address] [place] CO2 [Moles/Vol] 26.4 mmol/L Normal 22.0-30.0 [facility] Comment on above: Performed By: #### C OVID-19 GERTRUDE, SOFIANEG #### [facility] [address] [place] [address] Creatinine [Mass/Vol] 0.89 mg/dL Normal 0.64-1.27 [facility] Comment on above: Performed By: #### C OVID-19 GERTRUDE, SOFIANEG #### [place] [address] [place] Estimated GFR ( Jessica > 60 [facility] Comment on above: Result Comment: GFR estimated reference range: According to KDOQI guidelines, <60 ml/min/1.73m2 is sufficient to diagnose a patient with chronic kidney disease. Performed By: #### C OVID-19 GERTRUDE, SOFIANEG #### [address] Estimated GFR (Non- Am > 60 [facility] Comment on above: Performed By: #### C OVID-19 GERTRUDE, SOFIANEG #### [address] Glucose [Mass/Vol] 101 mg/dL High 70-100 [facility] Comment on above: Result Comment: [place] om Glucose Reference Range is dependent on time and content of last meal. Glucose of more than 200 mg/dL in a nonstressed, ambulatory subject supports the diagnosis of Diabetes Mellitus. ADA recommended reference range Performed By: #### C OVID-19 GERTRUDE, SOFIANEG #### [address] Potassium [Moles/Vol] 4.4 mmol/L Normal 3.5-5.1 [facility] Comment on above: Performed By: #### C OVID-19 GERTRUDE, SOFIANEG #### [address] Sodium [Moles/Vol] 139 mmol/L Normal 136-146 [facility] Comment on above: Performed By: #### C OVID-19 GERTRUDE, SOFIANEG #### [address] [place] [address] [place] Urea nitrogen [Mass/Vol] 23 mg/dL Normal 9-23 [facility] Comment on above: Performed By: #### C OVID-19 GERTRUDE, SOFIANEG #### [facility] [address] [place] [address] Complete Blood Count Auto Di ffon 06-18-2021 Basophils (Bld) [#/Vol] 0.0 10*3/uL Normal 0.0-0.2 [facility] Comment on above: Result Comment: PERF ORMED BY: [place] [address] PATHOLOGIST [employer] MACHINE TENDER EYAD HOWARD M.D. Performed By: #### C OVID-19 GERTRUDE, SOFIANEG #### [address] Basophils/100 WBC (Bld) 0.9 % Normal . [facility] Comment on above: Performed By: #### C OVID-19 GERTRUDE, SOFIANEG #### [facility] [address] [place] [address] Eosinophils (Bld) [#/Vol] 0.1 10*3/uL Normal 0.0-0.45 [facility] Comment on above: Performed By: #### C OVID-19 GERTRUDE, SOFIANEG #### [address] Eosinophils/100 WBC (Bld) 1.4 % Normal . [facility] Comment on above: Performed By: #### C OVID-19 GERTRUDE, SOFIANEG #### [facility] [address] [place] [address] Erythrocyte distribution width (RBC) [Ratio] 14.0 % Normal 12.0-14.8 [facility] Comment on above: Performed By: #### C OVID-19 GERTRUDE, SOFIANEG #### [facility] [address] [place] [address] Hematocrit (Bld) [Volume fraction] 41.8 % Normal 38.8-50.0 [facility] Comment on above: Performed By: #### C OVID-19 GERTRUDE, SOFIANEG #### [address] Hemoglobin (Bld) [Mass/Vol] 14.2 g/dL Normal 13.0-17.0 [facility] Comment on above: Performed By: #### C OVID-19 GERTRUDE, SOFIANEG #### [address] Lymphocytes (Bld) [#/Vol] 1.1 10*3/uL Normal 1.00-4.8 [facility] Comment on above: Performed By: #### C OVID-19 GERTRUDE, SOFIANEG #### [address] Lymphocytes/100 WBC (Bld) 22.7 % Normal . [facility] Comment on above: Performed By: #### C OVID-19 GERTRUDE, SOFIANEG #### [address] MCH (RBC) [Entitic mass] 30.4 pg Normal 27.5-35.2 [facility] Comment on above: Performed By: #### C OVID-19 GERTRUDE, SOFIANEG #### [address] MCV (RBC) [Entitic vol] 89.7 fL Normal 83.5-101 [facility] Comment on above: Performed By: #### C OVID-19 GERTRUDE, SOFIANEG #### [address] Mean Corpuscular HGB Conc 33.9 g/dL Normal 32.5-35.6 [facility] Comment on above: Performed By: #### C OVID-19 GERTRUDE, SOFIANEG #### [address] Monocytes (Bld) [#/Vol] 0.5 10*3/uL Normal 0.0-0.8 [facility] Comment on above: Performed By: #### C OVID-19 GERTRUDE, SOFIANEG #### [facility] [address] [place] [address] [place] Monocytes/100 WBC (Bld) 11.2 % Normal . [facility] Comment on above: Performed By: #### C OVID-19 GERTRUDE, SOFIANEG #### [facility] [address] Neutrophils (Bld) [#/Vol] 3.1 10*3/uL Normal 1.8-7.7 [facility] Comment on above: Performed By: #### C OVID-19 GERTRUDE, SOFIANEG #### [facility] [address] Neutrophils/100 WBC (Bld) 63.8 % Normal . [facility] Comment on above: Performed By: #### C OVID-19 GERTRUDE, SOFIANEG #### [facility] [address] [place] [address] [place] Nucleated RBC/100 WBC (Bld) [Ratio] 0.1 % Normal 0-0.5 [facility] Comment on above: Performed By: #### C OVID-19 GERTRUDE, SOFIANEG #### [facility] [address] [place] [address] [place] Platelet mean volume (Bld) [Entitic vol] 8.2 fL Normal 6.6-10.1 [facility] Comment on above: Performed By: #### C OVID-19 GERTRUDE, SOFIANEG #### [facility] [address] [place] [address] [place] Platelets (Bld) [#/Vol] 243 10*3/uL Normal 150-450 [facility] Comment on above: Performed By: #### C OVID-19 GERTRUDE, SOFIANEG #### [facility] [address] [place] [address] [place] RBC (Bld) [#/Vol] 4.67 10*6/uL Normal 3.90-5.60 [facility] Comment on above: Performed By: #### C OVID-19 GERTRUDE, SOFIANEG #### [facility] [address] [place] [address] [place] WBC (Bld) [#/Vol] 4.8 10*3/uL Normal 4.5-11.0 [facility] Comment on above: Performed By: #### C OVID-19 WOLFGANG LOREDO #### [facility] [address] [place] [id number] [facility] ECG 12 lead ECGon 06-18-2021 ECG 12 lead ECG [facility] [place] [address] [place] [address] Electrocardiograph Report Signed Patient: Fredrick Stroud MR#: [id number] : [id number] Acct:[id number] Age/Sex: 70 / M ADM Date: 06/18/21 Loc: Room: Type: [facility] Attending Dr: Shahriar Dhillon II, MD [...] Wisam Torre MD 0 06/19/21 1006 Normal [facility] Fructosamineon 06-18-2021 Fructosamine 217 umol/L Normal 0-285 [facility] Comment on above: Result Comment: Publ ished reference interval for apparently healthy subjects between age 20 and 60 is 205 - 285 umol/L and in a poorly controlled diabetic population is 228 - 563 umol/L with a mean of 396 umol/L. Performed at: [address] [id number] Support Analyst: Bentno Caro PhD, Phone: [phone] PERFORMED BY: [place] [address] PATHOLOGIST [employer]YING MACHINE TENDER EYAD HOWARD M.D. Performed By: #### C OVID-19 GERTRUDE, SOFIANEG #### [facility] [address] [place] [address] PST Type and Screenon 2021 ABO and Rh group Nom (Bld) Blood group O Rh(D) positive Normal [facility] Comment on above: Order Comment: Date of Surgery: [id number] Result Comment: PERF ORMED BY: [place] [address] PATHOLOGIST [employer] MACHINE TENDER EYAD HOWARD M.D. Urinalysison 06-18-2021 Appearance (U) Clear Normal Clear [facility] Comment on above: Order Comment: Name Collection Type:: Clean-Voided Midstream Performed By: #### C BC, CMP, HS TROP, BNP #### [facility] [address] [place] [address] [place] Bilirubin,Urine Negative Normal Negative [facility] Comment on above: Order Comment: Name Collection Type:: Clean-Voided Midstream Performed By: #### C BC, CMP, HS TROP, BNP #### [facility] [address] [place] [address] [place] Color (U) Yellow Normal Yellow [facility] Comment on above: Order Comment: Name Collection Type:: Clean-Voided Midstream Performed By: #### C BC, CMP, HS TROP, BNP #### [facility] [address] [place] [address] [place] Glucose Ql (U) Normal Normal Normal [facility] Comment on above: Order Comment: Name Collection Type:: Clean-Voided Midstream Performed By: #### C BC, CMP, HS TROP, BNP #### [facility] [address] [place] [address] [place] Ketones Ql (U) Negative Normal Negative [facility] Comment on above: Order Comment: Name Collection Type:: Clean-Voided Midstream Performed By: #### C BC, CMP, HS TROP, BNP #### [address] Leukocyte esterase Test strip Ql (U) Negative Normal Negative [facility] Comment on above: Order Comment: Name Collection Type:: Clean-Voided Midstream Performed By: #### C BC, CMP, HS TROP, BNP #### [address] Nitrite,Urine Negative Normal Negative [facility] Comment on above: Order Comment: Name Collection Type:: Clean-Voided Midstream Performed By: #### C BC, CMP, HS TROP, BNP #### [address] Occult Blood,Urine Negative Normal Negative [facility] Comment on above: Order Comment: Name Collection Type:: Clean-Voided Midstream Result Comment: PERF ORMED BY: [place] [address] PATHOLOGIST [employer] TYING MACHINE TENDER EYAD HOWARD M.D. Performed By: #### C BC, CMP, HS TROP, BNP #### [address] pH (U) 7.5 [pH] Normal 5.0-9.0 [facility] Comment on above: Order Comment: Name Collection Type:: Clean-Voided Midstream Performed By: #### C BC, CMP, HS TROP, BNP #### [address] Protein,Urine Negative Normal Negative [facility] Comment on above: Order Comment: Name Collection Type:: Clean-Voided Midstream Performed By: #### C BC, CMP, HS TROP, BNP #### [address] Specificy Tamiment,Urine 1.023 Normal 1.001-1.030 [facility] Comment on above: Order Comment: Name Collection Type:: Clean-Voided Midstream Performed By: #### C BC, CMP, HS TROP, BNP #### [address] Urobilinogen,Urine Normal Normal Normal [facility] Comment on above: Order Comment: Name Collection Type:: Clean-Voided Midstream Performed By: #### C BC, CMP, HS TROP, BNP #### [facility] [address] [place] [id number] [facility] Urinalysis - AUTOMATEDon Appearance (U) CLEAR [employer] Other Bilirubin Ql (U) Negative [employer]/ Other Color (U) YELLOW [employer] Other Glucose Ql (U) Negative [employer] Other Hemoglobin Ql (U) Negative [employer] Other Ketones Ql (U) Negative [employer] Other Leukocyte esterase Test strip Ql (U) Negative [employer] Other Nitrite Ql (U) Negative [employer] Other pH (U) 6.0 [pH] [employer] Other Protein Ql (U) Negative [employer] Other Specific gravity (U) [Rel density] 1.010 [employer] Other Urobilinogen (U) [Mass/Vol] 0.2 mg/dL [employer] Other Urinalysis - AUTOMATED [employer] Other Vital Signs Date Time Vital Sign Value Performing Clinician Facility 02-25-2023 13:00-0500 Body temperature 98.2 [degF] Vivian Espinoza MD Work Phone: [facility] 02-25-2023 13:00-0500 Diastolic blood pressure 81 mm[Hg] Vivian Espinoza MD Work Phone: [facility] 02-25-2023 13:00-0500 Heart rate 79 /min Vivian Espinoza MD Work Phone: [facility] 02-25-2023 13:00-0500 Respiratory rate 18 /min Vivian Espinoza MD Work Phone: [facility] 02-25-2023 13:00-0500 SaO2% (BldA) [Mass fraction] 97 % Vivian Espinoza MD Work Phone: [facility] 02-25-2023 13:00-0500 Systolic blood pressure 125 mm[Hg] Vivian Espinoza MD Work Phone: [facility] 02-16-2023 22:54-0500 SaO2% (BldA) [Mass fraction] 96.1 % Vivian Espinoza MD Work Phone: [facility] 02-16-2023 03:00-0500 Body height 167.6 cm Vivian Espinoza MD Work Phone: [facility] 02-16-2023 03:00-0500 Body mass index (BMI) [Ratio] 42.52 kg/m2 Vivian Espinoza MD Work Phone: [facility] 02-16-2023 03:00-0500 Body weight 119.5 kg Vivian Espinoza MD Work Phone: [facility] 02-15-2023 20:06-0500 Body temperature 97.52 [degF] Justice Pretty [facility] 02-15-2023 20:06-0500 Diastolic blood pressure 63 mm[Hg] Justice [facility] 02-15-2023 20:06-0500 Heart rate 70 /min Justice Pretty [facility] 02-15-2023 20:06-0500 Mean blood pressure 76 mm[Hg] Justice Pretty [facility] 02-15-2023 20:06-0500 Respiratory rate 18 /min Justice Pretty [facility] 02-15-2023 20:06-0500 SaO2% (BldA) [Mass fraction] 94 % Justice Sukhwinder [facility] 02-15-2023 20:06-0500 Systolic blood pressure 101 mm[Hg] Justice Sukhwinder [facility] 02-15-2023 20:00-0500 Diastolic blood pressure 74 mm[Hg] Justice Sukhwinder [facility] 02-15-2023 20:00-0500 Heart rate 63 /min [facility] Sukhwinedr [facility] 02-15-2023 20:00-0500 Hourly Rounding Justice Cuetoe [facility] 02-15-2023 20:00-0500 Promise to Return Justice Cuetoe [facility] 02-15-2023 20:00-0500 SaO2% (BldA) [Mass fraction] 100 % [facility] Sukhwinder [facility] 02-15-2023 20:00-0500 Systolic blood pressure 112 mm[Hg] Justice Sukhwinder [facility] 02-15-2023 19:57-0500 Diastolic blood pressure 78 mm[Hg] [facility] Sukhw[facility] 02-15-2023 19:57-0500 Heart rate 101 /min Justice Sukhwinder [facility] 02-15-2023 19:57-0500 Mean blood pressure 90 mm[Hg] Justice Sukhw[facility] 02-15-2023 19:57-0500 Respiratory rate 14 /min Justice Sukhwinder [facility] 02-15-2023 19:57-0500 SaO2% (BldA) [Mass fraction] 98 % Justice Sukhwinder [facility] 02-15-2023 19:57-0500 Systolic blood pressure 113 mm[Hg] Justice Sukhwinder [facility] 02-15-2023 19:47-0500 Heart rate 85 /min Justice Sukhwinder [facility] 02-15-2023 19:47-0500 Mean blood pressure 49 mm[Hg] Justice Sukhwinder [facility] 02-15-2023 19:47-0500 Respiratory rate 14 /min Jusitce Sukhwinder [facility] 02-15-2023 19:34-0500 Blood Pressure Location Justice Sukhwinder [facility] 02-15-2023 19:34-0500 Body temperature 97.52 [degF] Justice Sukhwinder [facility] 02-15-2023 19:34-0500 Heart rate 68 /min Justice Sukhwinder [facility] 02-15-2023 19:19-0500 Heart rate 67 /min Justice Sukhwinder [facility] 02-15-2023 19:00-0500 Hourly Rounding Justice Sukhwinder [facility] 02-15-2023 19:00-0500 Promise to Return Justice Sukhwinder [facility] 02-15-2023 18:45-0500 Body temperature 97.52 [degF] Justice Sukhwinder [facility] 02-15-2023 18:17-0500 Body temperature 97.52 [degF] Justice Sukhwinder [facility] 02-15-2023 18:00-0500 Hourly Rounding Justice Sukhwinder [facility] 02-15-2023 18:00-0500 Promise to Return Justice Sukhwinder [facility] 02-15-2023 16:28-0500 Body temperature 97.88 [degF] Justice [facility] 08-30-2022 08:53-0400 Body height 167.64 cm Karina Guardadoon Work Phone: [facility] [address] DO Work Phone: 08-30-2022 08:53-0400 Body mass index (BMI) [Ratio] 38.74 kg/m2 Karina Guardadoon Work Phone: [facility] 250 DO Work Phone: 08-30-2022 08:53-0400 Body surface area Derived from formula 2.16 m2 Karina Melgar Work Phone: [facility] 250 DO Work Phone: 08-30-2022 08:53-0400 Body weight 108.86 kg Karina Melgar Work Phone: [facility] 250 DO Work Phone: 08-30-2022 08:53-0400 Diastolic blood pressure 62 mm[Hg] Karina Melgar Work Phone: [facility] 250 DO Work Phone: 08-30-2022 08:53-0400 Heart rate 55 /min Karina Melgar Work Phone: [facility] 250 DO Work Phone: 08-30-2022 08:53-0400 Systolic blood pressure 128 mm[Hg] Karina Melgar Work Phone: [facility] DO Work Phone: 08-13-2022 13:21-0400 Body height 167.64 cm Karina Melgar Work Phone: [facility] [facility] DO Work Phone: 08-13-2022 13:21-0400 Body mass index (BMI) [Ratio] 39.87 kg/m2 Karina Lisa Ramón Work Phone: [facility] 250 DO Work Phone: 08-13-2022 13:21-0400 Body surface area Derived from formula 2.19 m2 Karina Lisa Ramón Work Phone: [facility] 250 DO Work Phone: 08-13-2022 13:21-0400 Body weight 112.04 kg Karina Guardadoon Work Phone: [facility] 250 DO Work Phone: 08-13-2022 13:21-0400 Diastolic blood pressure 70 mm[Hg] Karina Guardadoon Work Phone: [facility] 250 DO Work Phone: 08-13-2022 13:21-0400 Heart rate 70 /min Karina Guardadoon Work Phone: [facility] 250 DO Work Phone: 08-13-2022 13:21-0400 Systolic blood pressure 136 mm[Hg] Karina Guardadoon Work Phone: [facility] 250 DO Work Phone: 07-05-2022 09:08-0400 Body height 167.64 cm Karina Guardadoon Work Phone: [facility] 600 DO Work Phone: 07-05-2022 09:08-0400 Body mass index (BMI) [Ratio] 39.54 kg/m2 Karina Guardadoon Work Phone: [facility] 600 DO Work Phone: 07-05-2022 09:08-0400 Body surface area Derived from formula 2.18 m2 Karina Lisa Ramón Work Phone: [facility] 600 DO Work Phone: 07-05-2022 09:08-0400 Body weight 111.13 kg Karina Lisa Ramón Work Phone: [facility] 600 DO Work Phone: 07-05-2022 09:08-0400 Diastolic blood pressure 70 mm[Hg] Karina Lisa Ramón Work Phone: [facility] 600 DO Work Phone: 07-05-2022 09:08-0400 Heart rate 72 /min Karina Lisa Ramón Work Phone: [facility] 600 DO Work Phone: 07-05-2022 09:08-0400 Systolic blood pressure 138 mm[Hg] Karina Lisa Ramón Work Phone: [facility] 600 DO Work Phone: 06-20-2022 16:24-0400 Body height 167.64 cm Karina Lisa Ramón Work Phone: [facility] 250 DO Work Phone: 06-20-2022 16:24-0400 Body mass index (BMI) [Ratio] 40.03 kg/m2 Karina Lisa Ramón Work Phone: [facility] 250 DO Work Phone: 06-20-2022 16:24-0400 Body surface area Derived from formula 2.19 m2 Karina Lisa Ramón Work Phone: [facility] 250 DO Work Phone: 06-20-2022 16:24-0400 Body weight 112.49 kg Karina Lisa Ramón Work Phone: [facility] 250 DO Work Phone: 06-20-2022 16:24-0400 Diastolic blood pressure 102 mm[Hg] Karina Lisa Ramón Work Phone: [facility] 250 DO Work Phone: 06-20-2022 16:24-0400 Heart rate 76 /min Karina Lisa Ramón Work Phone: [facility] 250 DO Work Phone: 06-20-2022 16:24-0400 Systolic blood pressure 162 mm[Hg] Karina Lisa Ramón Work Phone: [facility] DO Work Phone: 05-10-2022 14:46-0400 Body height 167.64 cm Karina Lisa Ramón Work Phone: [facility] [address] [place] Work Phone: 05-10-2022 14:46-0400 Body mass index (BMI) [Ratio] 40.19 kg/m2 Karina Lisa Ramón Work Phone: [facility] [address] [place] Work Phone: 05-10-2022 14:46-0400 Body surface area Derived from formula 2.2 m2 Karina Lisa Ramón Work Phone: [facility] [address] [place] Work Phone: 05-10-2022 14:46-0400 Body weight 112.95 kg Karina Lisa Ramón Work Phone: [facility] [address] [place] Work Phone: 05-10-2022 14:46-0400 Diastolic blood pressure 80 mm[Hg] Karina Lisa Ramón Work Phone: [facility] [address] [place] Work Phone: 05-10-2022 14:46-0400 Heart rate 61 /min Karina Lisa Ramón Work Phone: [facility] [address] [place] Work Phone: 05-10-2022 14:46-0400 Systolic blood pressure 130 mm[Hg] Karina Lisa Melgar Work Phone: [facility] [address] [place] Work Phone: 05-02-2022 13:26-0500 Body height 167.64 cm Karina Lisa Melgar Work Phone: [facility] 600 DO Work Phone: 05-02-2022 13:26-0500 Body mass index (BMI) [Ratio] 40.19 kg/m2 Karina Guardadoon Work Phone: [facility] 600 DO Work Phone: 05-02-2022 13:26-0500 Body surface area Derived from formula 2.2 m2 Karina Guardadoon Work Phone: [facility] 600 DO Work Phone: 05-02-2022 13:26-0500 Body weight 112.95 kg Karina Lisa Melgar Work Phone: [facility] 600 DO Work Phone: 05-02-2022 13:26-0500 Diastolic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
[2023-03-21 13:23] LABS: INR >8.00
[2023-03-21 13:24] LABS: Prothrombin Time 77.6 sec (9.0-11.6)
== END 2023-03-21 10:47 | disposition home or self-care (01) ==
LOC: LAB 10:46
PROVIDERS: PCP Family Medicine; Visit Provider Family Medicine
DX: I48.0 Paroxysmal atrial fibrillation (principal)
CPT/HCPCS: 36415; 85610

== ENCOUNTER 2023-03-28 02:07 | Outpatient (REF) | payer MEDICARE, SELFPAY ==
--- OUTSIDE RECORDS SUMMARY | 2023-03-28 02:12 | XMS_ITS | CCD ---
Author Name Unknown Address [address] [place] [address] Organization [facility] Care Team Providers Care Automotive Parts Clerk Name Role Phone No, Physician Primary Care Provider UnavailShahriar Frederick II Unavailable Shahriar Dhillon II Unavailable Karina Melgar Unavailable Lynn Gurrola Unavailable MD Karina Melgar Primary Care Provider DO Yo Blood Emergency Provider LISSETH Link Attending Provider [phone] Sejal Link Unavailable Karina Melgar Unavailable Unavailable [...] Consulting Unavailable Cee Carrillo Consulting Unavailable Ruba iMshra Consulting Unavailable Nunu Ruiz Consulting Unavailable Poonam [...] Medication Allergies] Propensity to adverse reactions (disorder) [facility] Repository Medications Current Medications Medication Drug Class(es) Dates Sig (Normalized) Sig (Original) acetaminophen 325 mg / HYDROcodone bitartrate 5 mg oral tablet (2 sources) Opioid Agonist Start: 07-28-2020 [place] 325 mg-5 mg oral tablet 1 tab(s), [...] Active docusate sodium 50 mg / sennosides, intermediate 8.6 mg oral tablet (3 sources) Start: [...] MG Oral Tablet Take as directed by [facility] coumadin clinic Quantity: 0 Refills: 0 Ordered: [...] Start: 06-14-2021 take 2 tablets by mo [facility] every eight hours for pain Acetaminophen [...] 1 capsule by mouth twice daily Iron Dil-[id number]-[id number]-Pz-U-Zugpq Acid (Ferocon) 110-0.5 mg Capsule Discontinued 1 [...] 02-15-2023 End: 02-15-2023 ONCE PRN, [facility] at 2127, Until Discontinued ibuprofen 200 [...] Discontinued Start: 06-14-2021 take 1 tablet by [facility] three times daily as needed for nausea Ondansetron HCl 8 MG 1 tablet as needed for nausea Orally TID for 10 days Med to Bed Upon Discharge DOS: 07/02/2021 May, Active polyethylene glycol 3350 22462 mg powder for oral solution (4 sources) [...] Discontinued Start: 07-05-2022 take 1 capsule by [facility] every twelve hours propafenone 425 mg oral [...] Active Start: 04-29-2022 take 1 capsule by [facility] every twelve hours Propafenone HCl ER 225 MG Oral Capsule Extended Release 12 Hour TAKE 1 CAPSULE EVERY 12 HOURS. Quantity: 180 Refills: 0 Ordered: 29-Apr-2022 Christopher Porter MD Start : 29-Apr-2022 Active new start Prostate Support TABS (10 sources) Prostate Support TABS TAKE 1 TABLET DAILY DIRECTED. Quantity: 0 Refills: 0 Ordered: 21-Mar-2022 DO Active Saw-Vit E-Sod Myx-Inf-Amlg-Pyg (Prostate Health) 160-100-100 mg-unit-mcg Tablet (2 sources) Start: End: 3 take 1 capsule by mouth once daily Saw-Vit E-Sod Qco-Zqm-Twur-Pyg (Prostate Health) 160-100-100 mg-unit-mcg Tablet Discontinued 1 CAP PO Daily July 27, 2017 11:00pm March 11, 2022 5:18pm sennosides, intermediate 8.6 mg oral tablet (1 source) Start: [...] on Fri02/17/23 at 1600, Until Discontinued Vit C-S.Hdzinf-Tdtncl-Eshxg Sd (Tart Bhagat) 53-867-64-75-20 mg Capsule (2 sources) Start: 07-28-2017 End: 08-09-2019 Vit C-S.Etrjxb-Cdfbqy-Lkxnp Sd (Tart Bhagat) 75-751-69-75-20 mg Capsule Discontinued 1 CAP PO Twice [...] source) Long-term current use of anticoagulant; Translations: [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 3 mg/dL [facility] Chloride [Moles/Vol] 102 mmol/L 98 - 107 mmol/L [facility] CO2 [Moles/Vol] 30 mmol/L 21 - 31 mmol/L [facility] Creatinine [Mass/Vol] 0.64 mg/dL Low 0.70 - 1.30 mg/dL [facility] GFR/1.73 sq M.predicted CKD-EPI (S/P/Bld) [Vol rate/Area] 99 - PINF [facility] Glucose [Mass/Vol] 129 mg/dL High 74 - 109 mg/dL [facility] Interpretation and review of laboratory results [...] 8.9 g/dL Low 13.9 - 16.3 g/dL [facility] Interpretation and review of laboratory [...] [facility] RBC (Bld) [#/Vol] 2.90 10*6/uL Low [facility] WBC (Bld) [#/Vol] 8.5 10*3/uL 4.5 - 11.5 K/uL [facility] 02-25-2023 Magnesium [Mass/Vol] 1.9 mg/dL 1.6 - 2.8 mg/dL [facility] No Panel Informationon 02-25 Interpretation and review of laboratory results Normal [facility] PHOSPHORUSon 02-25-2023 Phosphate [Mass/Vol] 2.9 mg/dL 2.3 - 4.2 mg/dL [facility] PROTHROMBIN TIME AND INRon 0 02-25-2023 INR Coag (PPP) [Relative time] 1.13 {INR} High 0.90 - 1.10 [facility] Interpretation and review of laboratory results Abnormal [facility] PT Coag (PPP) [Time] 12.6 s [facility] ANTI FXA-LMW HEPARINon 02-24 LMW Heparin Chromogenic method Qn (PPP) 0.32 IU/mL [facility] Basic metabolic 2000 panelon 02-24-2023 Anion gap [Moles/Vol] 9 mmol/L Low 10 - 20 Met [facility] Calcium [Mass/Vol] 7.7 mg/dL Low 8.6 - 10. 3 mg/dL [facility] Chloride [Moles/Vol] 101 mmol/L 98 - 107 mmol/L [facility] CO2 [Moles/Vol] 30 mmol/L 21 - 31 mmol/L [facility] Creatinine [Mass/Vol] 0.60 mg/dL Low 0.70 - 1.30 mg/dL [facility] GFR/1.73 sq M.predicted CKD-EPI (S/P/Bld) [Vol rate/Area] 101 - PINF [facility] Glucose [Mass/Vol] 98 mg/dL 74 - 109 mg/dL [facility] Interpretation and review of laboratory results Abnormal [facility] Potassium [Moles/Vol] 4.0 mmol/L 3.5 - 5.0 mmol/L [facility] Sodium [Moles/Vol] 136 mmol/L 136 - 145 mmol/L [facility] Urea nitrogen [Mass/Vol] 19 mg/dL 7 - 25 mg/dL [facility] CBC panel Auto (Bld)on 02-24 Erythrocyte distribution width (RBC) [Ratio] 15.4 % High 11.5 - 14.5 % [facility] Hematocrit (Bld) [Volume fraction] 25.2 % Low 41.0 - 53.0 % [facility] Hemoglobin (Bld) [Mass/Vol] 8.3 g/dL Low 13.9 - 16.3 g/dL [facility] Interpretation and review of laboratory results Abnormal [facility] MCH (RBC) [Entitic mass] 30.7 pg 26.0 - 34.0 pg [facility] MCHC (RBC) [Mass/Vol] 33.1 g/dL 32.0 - 35.9 g/dL [facility] MCV (RBC) [Entitic vol] 93 fL 80 - 100 fL [facility] Platelet mean volume (Bld) [Entitic vol] 7.6 fL 7.5 - 11.2 fL [facility] Platelets (Bld) [#/Vol] 320 10*3/uL 150 - 400 K/uL [facility] RBC (Bld) [#/Vol] 2.72 10*6/uL Low [facility] WBC (Bld) [#/Vol] 7.6 10*3/uL 4.5 - 11.5 K/uL [facility] 02-24-2023 Magnesium [Mass/Vol] 1.9 mg/dL 1.6 - 2.8 mg/dL [facility] No Panel Informationon 02-24 Interpretation and review of laboratory results Normal [facility] PHOSPHORUSon 02-24-2023 Phosphate [Mass/Vol] 2.7 mg/dL 2.3 - 4.2 mg/dL [facility] Basic metabolic 2000 panelon 02-23-2023 Anion gap [Moles/Vol] 9 mmol/L Low 10 - 20 Met [facility] Calcium [Mass/Vol] 7.8 mg/dL Low 8.6 - 10. 3 mg/dL [facility] Chloride [Moles/Vol] 99 mmol/L 98 - 107 mmol/L [facility] CO2 [Moles/Vol] 32 mmol/L High 21 - 31 mmol/L [facility] Creatinine [Mass/Vol] 0.59 mg/dL Low 0.70 - 1.30 mg/dL [facility] GFR/1.73 sq M.predicted CKD-EPI (S/P/Bld) [Vol rate/Area] 102 - PINF [facility] Glucose [Mass/Vol] 88 mg/dL 74 - 109 mg/dL [facility] Interpretation and review of laboratory results Abnormal [facility] Potassium [Moles/Vol] 4.0 mmol/L 3.5 - 5.0 mmol/L [facility] Sodium [Moles/Vol] 136 mmol/L 136 - 145 mmol/L [facility] Urea nitrogen [Mass/Vol] 22 mg/dL 7 - 25 mg/dL [facility] CBC panel Auto (Bld)on 02-23 Erythrocyte distribution width (RBC) [Ratio] 15.3 % High 11.5 - 14.5 % [facility] Hematocrit (Bld) [Volume fraction] 26.6 % Low 41.0 - 53.0 % [facility] Hemoglobin (Bld) [Mass/Vol] 8.7 g/dL Low 13.9 - 16.3 g/dL [facility] Interpretation and review of laboratory results Abnormal [facility] MCH (RBC) [Entitic mass] 30.4 pg 26.0 - 34.0 pg [facility] MCHC (RBC) [Mass/Vol] 32.7 g/dL 32.0 - 35.9 g/dL [facility] MCV (RBC) [Entitic vol] 93 fL 80 - 100 fL [facility] Platelet mean volume (Bld) [Entitic vol] 8.7 fL 7.5 - 11.2 fL [facility] Platelets (Bld) [#/Vol] 285 10*3/uL 150 - 400 K/uL [facility] RBC (Bld) [#/Vol] 2.86 10*6/uL Low [facility] WBC (Bld) [#/Vol] 8.2 10*3/uL 4.5 - 11.5 K/uL [facility] MAGNESIUMon 02-23-2023 Magnesium [Mass/Vol] 2.0 mg/dL 1.6 - 2.8 mg/dL [facility] No Panel Informationon 02-23 Interpretation and review of laboratory results Normal [facility] PHOSPHORUSon 02-23-2023 Phosphate [Mass/Vol] 2.6 mg/dL 2.3 - 4.2 mg/dL [facility] ANTI FXA-LMW HEPARINon 02-22 ANTI FXA-LMW HEPARIN ASSAY 0.48 IU/mL Normal [facility] Comment on above: Order Comment: The r ecommended therapeutic range for treatment of thrombosis with Low Molecular Weight Heparin is 0.5 - 1.0 IU/mLThe recommended range for VTE prophylaxis with Low Molecular Weight Heparin is 0.2 - 0.4 IU/mL. Performed By: #### T S #### [facility] [address] [place], [address] LMW Heparin Chromogenic method Qn (PPP) 0.48 IU/mL [facility] BASIC METABOLIC PANELon 01-26 Anion gap [Moles/Vol] 7 mmol/L Low 10-20 [facility] Comment on above: Performed By: #### 8 2948 #### NURSING GLUCOSE PROGRAM [address] [place], [address] Calcium [Mass/Vol] 7.7 mg/dL Low 8.6-10.3 [facility] Comment on above: Result Comment: Note updated reference ranges. Performed By: #### 8 2948 #### NURSING GLUCOSE PROGRAM [address] [place], [address] Chloride [Moles/Vol] 101 mmol/L Normal 98-107 [facility] Comment on above: Result Comment: Note updated reference ranges. Performed By: #### 8 2948 #### NURSING GLUCOSE PROGRAM [address] [place], [address] CO2 [Moles/Vol] 33 mmol/L High 21-31 [facility] Comment on above: Result Comment: Note updated reference ranges. Performed By: #### 8 2948 #### NURSING GLUCOSE PROGRAM [address] [place], [address] Creatinine [Mass/Vol] 0.60 mg/dL Low 0.70-1.30 [facility] Comment on above: Result Comment: Note updated reference ranges. Performed By: #### 8 2948 #### NURSING GLUCOSE PROGRAM [address] [place], [address] ESTIMATED GFR (CKD-EPI) 101 mL/min/1.73sqm Normal >=60 [facility] Comment on above: Result Comment: 2020 [...] Inclusion of Race in Diagnosing Kidney Disease. [place] Journal of Kidney Diseases 202;79(2):268-88.e1. 2. N Engl J Med 1 Vol. 385 Issue 19 Pages 8861-7053 Performed By: #### 8 2948 #### NURSING GLUCOSE PROGRAM [address] [place], [address] Glucose [Mass/Vol] 105 mg/dL Normal 74-109 [facility] Comment on above: Performed By: #### 8 2948 #### NURSING GLUCOSE PROGRAM [address] [place], [address] Potassium [Moles/Vol] 3.6 mmol/L Normal 3.5-5.0 [facility] Comment on above: Result Comment: Note updated reference ranges. Note updated reference ranges. Performed By: #### 8 2948 #### NURSING GLUCOSE PROGRAM [address] [place], [address] Sodium [Moles/Vol] 137 mmol/L Normal 136-145 [facility] Comment on above: Result Comment: Note updated reference ranges. Performed By: #### 8 2948 #### NURSING GLUCOSE PROGRAM [address] [place], [address] Urea nitrogen [Mass/Vol] 23 mg/dL Normal 7-25 [facility] Comment on above: Result Comment: Note updated reference ranges. Performed By: #### 8 2948 #### NURSING GLUCOSE PROGRAM [address] [place], [address] Basic metabolic 2000 panelon 02-22-2023 Anion gap [...] [Mass/Vol] 105 mg/dL 74 - 109 mg/dL [facility] Interpretation and review of laboratory results Abnormal [facility] Potassium [Moles/Vol] 3.6 mmol/L 3.5 - 5.0 mmol/L [facility] Sodium [Moles/Vol] 137 mmol/L 136 - 145 mmol/L [facility] Urea nitrogen [Mass/Vol] 23 mg/dL 7 - 25 mg/dL [facility] CBC panel Auto (Bld)on 02-22 Erythrocyte distribution width (RBC) [Ratio] 15.4 % High 11.5 - 14.5 % [facility] Hematocrit (Bld) [Volume fraction] 23.9 % Low 41.0 - 53.0 % [facility] Hemoglobin (Bld) [Mass/Vol] 8.0 g/dL Low 13.9 - 16.3 g/dL [facility] Interpretation and review of laboratory results Abnormal [facility] MCH (RBC) [Entitic mass] 30.7 pg 26.0 - 34.0 pg [facility] MCHC (RBC) [Mass/Vol] 33.3 g/dL 32.0 - 35.9 g/dL [facility] MCV (RBC) [Entitic vol] 92 fL 80 - 100 fL [facility] Platelet mean volume (Bld) [Entitic vol] 8.7 fL 7.5 - 11.2 fL [facility] Platelets (Bld) [#/Vol] 227 10*3/uL 150 - 400 K/uL [facility] RBC (Bld) [#/Vol] 2.60 10*6/uL Low [facility] WBC (Bld) [#/Vol] 7.6 10*3/uL 4.5 - 11.5 K/uL [facility] COMPLETE BLOOD COUNTon 02-22 Erythrocyte distribution width (RBC) [Ratio] 15.4 % High 11.5-14.5 [facility] Comment on above: Performed By: #### T S #### [facility] [address] [place], [place], Hematocrit (Bld) [Volume fraction] 23.9 % Low 41.0-53.0 [facility] Comment on above: Performed By: #### T S #### [facility] [address] [place], [place], Hemoglobin (Bld) [Mass/Vol] 8.0 g/dL Low 13.9-16.3 [facility] Comment on above: Performed By: #### T S #### [facility] [address] [place] [address], MCH (RBC) [Entitic mass] 30.7 pg Normal 26.0-34.0 [facility] Comment on above: Performed By: #### T S #### [facility] [address] [place] [address], MCHC (RBC) [Mass/Vol] 33.3 g/dL Normal 32.0-35.9 [facility] Comment on above: Performed By: #### T S #### [facility] [address] [place] [address], MCV (RBC) [Entitic vol] 92 fL Normal 80-100 [facility] Comment on above: Performed By: #### T S #### [facility] [address] [place] [address], Platelet mean volume (Bld) [Entitic vol] 8.7 fL Normal 7.5-11.2 [facility] Comment on above: Performed By: #### T S #### [facility] [address] [place] [address], Platelets (Bld) [#/Vol] 227 10*3/uL Normal 150-400 [facility] Comment on above: Performed By: #### T S #### [facility] [address] [place] [address], RBC (Bld) [#/Vol] 2.60 10*6/uL Low 4.50-5.90 [facility] Comment on above: Performed By: #### T S #### [facility] [address] [place], [place], WBC (Bld) [#/Vol] 7.6 10*3/uL Normal 4.5-11.5 [facility] Comment on above: Performed By: #### T S #### [facility] [address] [place], [place], Care Plan Noteon 02-22-2023 Milieu Coordinator Authentication Interface Message Text Problem: Routine Care: [...] and once discontinued Outcome: Progressing Normal [facility] MAGNESIUMon 02-22-2023 Magnesium [Mass/Vol] 2.0 mg/dL Normal 1.6-2.8 [facility] Comment on above: Performed By: #### 8 2948 #### NURSING GLUCOSE PROGRAM [address] [place], [address] Magnesium [Mass/Vol] 2.0 mg/dL 1.6 - 2.8 mg/dL [facility] No Panel Informationon 02-22 Interpretation and review of laboratory results Normal [facility] PHOSPHORUSon 02-22-2023 Phosphate [Mass/Vol] 2.8 mg/dL Normal 2.3-4.2 [facility] Comment on above: Performed By: #### 8 2948 #### NURSING GLUCOSE PROGRAM [address] [place], [address] Phosphate [Mass/Vol] 2.8 mg/dL 2.3 - 4.2 mg/dL [facility] BASIC METABOLIC PANELon 01-25 Anion gap [Moles/Vol] 9 mmol/L Low 10-20 [facility] Comment on above: Performed By: #### 8 2948 #### NURSING GLUCOSE PROGRAM [address] [place], [address] Calcium [Mass/Vol] 7.5 mg/dL Low 8.6-10.3 [facility] Comment on above: Result Comment: Note updated reference ranges. Performed By: #### 8 2948 #### NURSING GLUCOSE PROGRAM [address] [place], [address] Chloride [Moles/Vol] 100 mmol/L Normal 98-107 [facility] Comment on above: Result Comment: Note updated reference ranges. Performed By: #### 8 2948 #### NURSING GLUCOSE PROGRAM [address] [place], [address] CO2 [Moles/Vol] 33 mmol/L High 21-31 [facility] Comment on above: Result Comment: Note updated reference ranges. Performed By: #### 8 2948 #### NURSING GLUCOSE PROGRAM [address] [place], [address] Creatinine [Mass/Vol] 0.65 mg/dL Low 0.70-1.30 [facility] Comment on above: Result Comment: Note updated reference ranges. Performed By: #### 8 2948 #### NURSING GLUCOSE PROGRAM [address] [place], [address] ESTIMATED GFR (CKD-EPI) 99 mL/min/1.73sqm Normal >=60 [facility] Comment on above: Result Comment: 2020 [...] Inclusion of Race in Diagnosing Kidney Disease. [place] Journal of Kidney Diseases 202;79(2):268-88.e1. 2. N Engl J Med 1 Vol. 385 Issue 19 Pages [phone] Performed By: #### 8 2948 #### NURSING GLUCOSE PROGRAM [address] [place], [address] Glucose [Mass/Vol] 104 mg/dL Normal 74-109 [facility] Comment on above: Performed By: #### 8 2948 #### NURSING GLUCOSE PROGRAM [address] [place], [address] Potassium [Moles/Vol] 3.5 mmol/L Normal 3.5-5.0 [facility] Comment on above: Result Comment: Note updated reference ranges. Note updated reference ranges. Performed By: #### 8 2948 #### NURSING GLUCOSE PROGRAM [address] [place], [address] Sodium [Moles/Vol] 138 mmol/L Normal 136-145 [facility] Comment on above: Result Comment: Note updated reference ranges. Performed By: #### 8 2948 #### NURSING GLUCOSE PROGRAM [address] [place], [address] Urea nitrogen [Mass/Vol] 24 mg/dL Normal 7-25 [facility] Comment on above: Result Comment: Note updated reference ranges. Performed By: #### 8 2948 #### NURSING GLUCOSE PROGRAM [address] [place], [address] BLOOD CULTUREon 02-21-2023 Bacteria identified Cx Nom (Bld) No Growth [facility] Interpretation and review of laboratory results Normal [facility] Basic metabolic 2000 panelon 02-21-2023 Anion gap [Moles/Vol] 9 mmol/L Low 10 - 20 Met [facility] Calcium [Mass/Vol] 7.5 mg/dL Low 8.6 - 10. 3 mg/dL [facility] Chloride [Moles/Vol] 100 mmol/L 98 - 107 mmol/L [facility] CO2 [Moles/Vol] 33 mmol/L High 21 - 31 mmol/L [facility] Creatinine [Mass/Vol] 0.65 mg/dL Low 0.70 - 1.30 mg/dL [facility] GFR/1.73 sq M.predicted CKD-EPI (S/P/Bld) [Vol rate/Area] 99 - PINF [facility] Glucose [Mass/Vol] 104 mg/dL 74 - 109 mg/dL [facility] Interpretation and review of laboratory results Abnormal [facility] Potassium [Moles/Vol] 3.5 mmol/L 3.5 - 5.0 mmol/L [facility] Sodium [Moles/Vol] 138 mmol/L 136 - 145 mmol/L [facility] Urea nitrogen [Mass/Vol] 24 mg/dL 7 - 25 mg/dL [facility] CBC panel Auto (Bld)on 02-21 Erythrocyte distribution width (RBC) [Ratio] 14.5 % 11.5 - 14.5 % [facility] Hematocrit (Bld) [Volume fraction] 21.8 % Low 41.0 - 53.0 % [facility] Hemoglobin (Bld) [Mass/Vol] 7.6 g/dL Low 13.9 - 16.3 g/dL [facility] Interpretation and review of laboratory results Abnormal [facility] MCH (RBC) [Entitic mass] 31.5 pg 26.0 [...] 9.6 10*3/uL 4.5 - 11.5 K/uL M [facility] COMPLETE BLOOD COUNTon 02-21 Erythrocyte distribution width (RBC) [Ratio] 14.5 % Normal 11.5-14.5 [facility] Comment on above: Performed By: #### T S #### [facility] [address] [place] [address], Hematocrit (Bld) [Volume fraction] 21.8 % Low 41.0-53.0 [facility] Comment on above: Performed By: #### T S #### [facility] [address] [place] [address], Hemoglobin (Bld) [Mass/Vol] 7.6 g/dL Low 13.9-16.3 [facility] Comment on above: Performed By: #### T S #### [facility] [address] [place] [address], MCH (RBC) [Entitic mass] 31.5 pg Normal 26.0-34.0 [facility] Comment on above: Performed By: #### T S #### [facility] [address] [place] [address], MCHC (RBC) [Mass/Vol] 34.6 g/dL Normal 32.0-35.9 [facility] Comment on above: Performed By: #### T S #### [facility] [address] [place] [address], MCV (RBC) [Entitic vol] 91 fL Normal 80-100 [facility] Comment on above: Performed By: #### T S #### [facility] [address] [place] [address], Platelet mean volume (Bld) [Entitic vol] 8.3 fL Normal 7.5-11.2 [facility] Comment on above: Performed By: #### T S #### [facility] [address] [place] [address], Platelets (Bld) [#/Vol] 199 10*3/uL Normal 150-400 [facility] Comment on above: Performed By: #### T S #### [facility] [address] [place], [place], RBC (Bld) [#/Vol] 2.40 10*6/uL Low 4.50-5.90 [facility] Comment on above: Performed By: #### T S #### [facility] [address] [place], [place], WBC (Bld) [#/Vol] 9.6 10*3/uL Normal 4.5-11.5 [facility] Comment on above: Performed By: #### T S #### [facility] [address] [place], [place], Care Plan Noteon 02-21-2023 Milieu Coordinator Authentication Interface Message Text Problem: Routine Care: [...] and once discontinued Outcome: Progressing Normal [facility] GLUCOSE, FINGERSTICK-IN OFFI CEon 02-21-2023 Glucose [Mass/Vol] 144 mg/dL High 80-116 [facility] Comment on above: Performed By: #### 8 2948 #### NURSING GLUCOSE PROGRAM [address] [place], [address] Glucose [Mass/Vol] 144 mg/dL High 80 - 116 mg/dL [facility] Interpretation and review of laboratory results Abnormal [facility] MAGNESIUMon 02-21-2023 Magnesium [Mass/Vol] 1.9 mg/dL Normal 1.6-2.8 [facility] Comment on above: Performed By: #### T S #### [facility] [address] [place] [address], [id number] Magnesium [Mass/Vol] 1.9 mg/dL 1.6 - 2.8 mg/dL [facility] No Panel Informationon 02-21 Interpretation and review of laboratory results Normal [facility] PHOSPHORUSon 02-21-2023 Phosphate [Mass/Vol] 2.3 mg/dL Normal 2.3-4.2 [facility] Comment on above: Performed By: #### T S #### [facility] [address] [place] [address], [id number] Phosphate [Mass/Vol] 2.3 mg/dL 2.3 - 4.2 mg/dL [facility] Procedureson 02-21-2023 Milieu Coordinator Authentication Interface Message Text Upper Extremities Venous Duplex [address] [place] [id number] Status:Open Demographics Patient name: JUAN Leung Gender: Male Date of : 1950 Age: 72 year(s) Procedure Information Procedure date: 02/21/2023 2:15 PM Procedure type: Vascular Proc. sub type: Veins, Upper Extremities Veins, LIMITED DUPLEX VEIN SCAN UE Accession no: [id number] Patient status: Routine Study location: Portable Technical quality: Poor visualization Limitation reason: Poor acoustical window Procedure Staff Referring Physician: SUKHWINDER BRIAN Dental Assisting Instructor: RICKEY NúñezT Interpreting physician: NATAN Ceja MD Indications Pain, edema, discoloration. Risk Factors Additional comments: No significant history Page 1/2 JUAN Leung 1950 [id number] 02/21/2023 2:15 PM Upper Extremities Venous Duplex [...] jugular vein. Page 2/2 JUAN Leung 1950 [id number] 02/21/2023 2:15 PM Invalid Interpretation Code [facility] Progress Noteson 02-21-2023 Milieu Coordinator Authentication Interface Message Text Preliminary Vascular Lab Report Duplex Left Upper Extremity Vein Scan No evidence deep vein thrombus left upper extremity, official to follow report to follow. Masoud LANGT Normal [facility] Milieu Coordinator Authentication Interface Message Text Pt is rec for SNF Pt was denied from [facility] due to no available bed. Kamillaelena will like updates Friday before deciding to clinically accept. Pt is still pending med readiness Pt will not need precert SW will continue to follow Aj [facility]MANAGER INTELLIGENCE Normal [facility] Milieu Coordinator Authentication Interface Message Text At 19:40 patient [...] baseline. Will continue to monitor. Normal [facility] URINALYSIS WITH REFLEX CULTU RE PERFORMABLEon [...] JUDITH Harper8, PHOS #### S PATHOLOG[facility] LABORATORY [address] [place] [address], [id number] Protein (U) [Mass/Vol] 30 mg/dL Abnormal Negative [facility] Comment on above: Order Comment: A [...] Meredith CH8, PHOS #### [facility] [address] [place] [address], [id number] U APPEAR Clear Normal Clear [facility] [...] Meredith CH8, PHOS #### [facility] [address] [place] [address], U BILI Negative Normal Negative [facility] Comment on above: Order Comment: A [...] Meredith CH8, PHOS #### S [facility] LABORATORY [address] [place] [address], U BLOOD Negative Normal Negative [facility] Comment on above: Order Comment: A [...] Meredith, CH8, PHOS #### [facility] [address] [place] [address], U COLOR Yellow Normal Colorless [facility] [...] Meredith, CH8, PHOS #### [facility] [address] [place] [address], U KETONE Negative Normal Negative [facility] Comment on above: Order Comment: A [...] G, CH8, PHOS #### S [facility] LABORATORY [address] [place] [address], U LEUK Negative Normal Negative [facility] Comment on above: Order Comment: A [...] CH8, PHOS #### [facility] [address] [place], [place], [place] MUCOUS Present Normal [facility] Comment on above: Order Comment: A [...] JUDITH Harper8, PHOS #### [facility] [address] [place] [address], U NITRITE Negative Normal Negative [facility] Comment on above: Order Comment: A [...] CH8, PHOS #### [facility] [address] [place], [place], [place] PH 6.5 Normal 5.0-8.0 [facility] Comment on above: Order Comment: A [...] CH8, PHOS #### [facility] [address] [place], [place], U RBC 3-5 Abnormal 0-2 [facility] Comment on above: Order Comment: A [...] JUDITH Harper8, PHOS #### S [facility] LABORATORY [address] [place] [address], U SG 1.026 Normal <=1.030 [facility] Comment on above: Order Comment: A [...] Harper CH8, PHOS #### S [facility] [address] [place] [address], U UROBILI 2.0 mg/dL Abnormal Negative [facility] Comment on above: Order Comment: A [...] CH8, PHOS #### S [facility] LAB[facility] [address] [place], [place], U WBC 3-5 Abnormal 0-2 [facility] Comment on above: Order Comment: A [...] By: #### M G, CH8, PHOS #### [facility] PATHOLOG[facility]ORATORY [address] [place] [address], BASIC METABOLIC PANELon 12-2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 Comment on above: Result Comment: 2020 [...] Inclusion of Race in Diagnosing Kidney Disease. [place] Journal of Kidney Diseases 2021;79(2):268-88.e1. 2. N Engl J Med 1 Vol. 385 Issue 19 Pages [phone] Performed By: #### ASIA Freitas, PHOS #### [facility] [address] [place], [place], Glucose [Mass/Vol] 189 mg/dL High 74-109 The [facility] Comment on above: Performed By: #### ASIA Freitas, PHOS #### [facility] [address] [place], [place], Potassium [Moles/Vol] 4.0 mmol/L Normal 3.5-5.0 [facility] Comment on above: Result Comment: Note updated reference ranges. Note updated reference ranges. Performed By: #### ASIA Freitas, PHOS #### [facility] [address] [place], [place], Sodium [Moles/Vol] 136 mmol/L Normal 136-145 [facility] Comment on above: Result Comment: Note updated reference ranges. Performed By: #### ASIA Freitas PHOS #### S PATH[facility] LABORATORY [address] [place] [address], Urea nitrogen [Mass/Vol] 36 mg/dL High 7-25 [facility] Comment on above: Result Comment: Note updated reference ranges. Performed By: #### ASIA Freitas PHOS #### S [facility] LABORATORY [address] [place] [address], BLOOD GAS, ARTERIALon 2022 CR GEOVANNI -1.0 mmol/L Normal -2.0-3.0 [facility] Comment on above: Performed By: #### C BC #### [facility] PATH[facility]ORATORY [address] [place] [address], CR PCO2 38.6 mm Hg Normal 35.0-45.0 [facility] Comment on above: Performed By: #### C BC #### [facility] [address] [place] [address], CR PHA 7.395 Normal 7.350-7.450 The [facility] Comment on above: Performed By: #### C BC #### S PATHOLOGY LABORATORY [address] [place] [address], CR PO2 81 mm Hg Normal 80-100 The [facility] Comment on above: Performed By: #### C BC #### S PATHOLOGY LABORATORY [address] [place] [address], FIO2 (CATEGORY) 2 LPM Normal [facility] Comment on above: Performed By: #### C BC #### S PATH[facility] LABORATORY [address] [place] [address], HCO3 (Bld) [Moles/Vol] 23 mmol/L Normal 21-28 The [facility] Comment on above: Performed By: #### C BC #### S PATHOLOGY LABORATORY [address] [place] [address], MODE Nasal Canula Normal [facility] Comment on above: Performed By: #### C BC #### S PATH[facility] LABORATORY [address] [place] [address], Oxygen saturation in Blood 96.1 % Normal 95.0-99.0 [facility] Comment on above: Performed By: #### C BC #### [facility] [address] [place] [address], BLOOD GAS, VENOUSon 02-18-20 23 CR ABEV -0.3 mmol/L Normal -2.0-3.0 [facility] Comment on above: Performed By: #### C BC #### [facility] [address] [place] [address], CR HCO3V 25 mmol/L Normal 21-28 [facility] Comment on above: Performed By: #### C BC #### [facility] [address] [place] [address], CR PHV 7.367 Normal 7.320-7.430 [facility] Comment on above: Performed By: #### C BC #### [facility] [address] [place] [address], CR PVCO2 43.8 mm Hg Normal 41.0-51.0 [facility] Comment on above: Performed By: #### C BC #### [facility] [address] [place] [address], CR PVO2 36 mm Hg Low 38-44 [facility] Comment on above: Performed By: #### C BC #### [facility] [address] [place] [address], Oxygen saturation in Blood 67.1 % Low 70.0-80.0 [facility] Comment on above: Performed By: #### C BC #### [facility]OR[facility] [address] [place] [address], Basic metabolic 2000 panelon 02-17-2023 Anion gap [Moles/Vol] 11 mmol/L 10 - 20 Met [facility] Calcium [Mass/Vol] 8.3 mg/dL Low 8.6 - 10. 3 mg/dL [facility] Chloride [Moles/Vol] 105 mmol/L 98 - 107 mmol/L [facility] CO2 [Moles/Vol] 24 mmol/L 21 - 31 mmol/L [facility] Creatinine [Mass/Vol] 1.00 mg/dL 0.70 - 1.30 mg/dL [facility] GFR/1.73 sq M.predicted CKD-EPI (S/P/Bld) [Vol rate/Area] 79 - PINF [facility] Glucose [Mass/Vol] 189 mg/dL High 74 - 109 mg/dL [facility] Interpretation and review of laboratory results Abnormal [facility] Potassium [Moles/Vol] 4.0 mmol/L 3.5 - 5.0 mmol/L [facility] Sodium [Moles/Vol] 136 mmol/L 136 - 145 mmol/L [facility] Urea nitrogen [Mass/Vol] 36 mg/dL High 7 - 25 mg/dL [facility] CBC panel Auto (Bld)on 02-17 Erythrocyte distribution width (RBC) [Ratio] 14.9 % High 11.5 - 14.5 % [facility] Hematocrit (Bld) [Volume fraction] 29.5 % Low 41.0 - 53.0 % [facility] Hemoglobin (Bld) [Mass/Vol] 10.1 g/dL Low 13.9 - 16.3 g/dL [facility] Interpretation and review of laboratory results Abnormal [facility] MCH (RBC) [Entitic mass] 30.3 pg 26.0 - 34.0 pg [facility] MCHC (RBC) [Mass/Vol] 34.2 g/dL 32.0 - 35.9 g/dL [facility] MCV (RBC) [Entitic vol] 89 fL 80 - 100 fL [facility] Platelet mean volume (Bld) [Entitic vol] 8.6 fL 7.5 - 11.2 fL [facility] Platelets (Bld) [#/Vol] 145 10*3/uL Low 150 - 400 K/uL [facility] RBC (Bld) [#/Vol] 3.33 10*6/uL Low [facility] WBC (Bld) [#/Vol] 9.9 10*3/uL 4.5 - 11.5 K/uL [facility] COMPLETE BLOOD COUNTon 02-17 Erythrocyte distribution width (RBC) [Ratio] 14.9 % High 11.5-14.5 The [facility] Comment on above: Performed By: #### C BC ####[facility] [id number] [place], [place], Hematocrit (Bld) [Volume fraction] 29.5 % Low 41.0-53.0 The [facility] Comment on above: Performed By: #### C BC ####[facility] PATHOLOGY [id number] [place], [place], Hemoglobin (Bld) [Mass/Vol] 10.1 g/dL Low 13.9-16.3 The [facility] Comment on above: Performed By: #### C BC ####[facility] PATHOLOGY [id number] [place] [address], MCH (RBC) [Entitic mass] 30.3 pg Normal 26.0-34.0 The [facility] Comment on above: Performed By: #### C BC ####[facility] PATHOLOGY [id number] [place] [address], MCHC (RBC) [Mass/Vol] 34.2 g/dL Normal 32.0-35.9 The [facility] Comment on above: Performed By: #### C BC ####[facility] PATHOLOGY [id number] [place] [address], MCV (RBC) [Entitic vol] 89 fL Normal 80-100 The [facility] Comment on above: Performed By: #### C BC ####[facility] PATHOLOGY [id number] [place] [address], Platelet mean volume (Bld) [Entitic vol] 8.6 fL Normal 7.5-11.2 The [facility] Comment on above: Performed By: #### C BC ####[facility] PATHOLOGY [id number] [place] [address], Platelets (Bld) [#/Vol] 145 10*3/uL Low 150-400 The [facility] Comment on above: Performed By: #### C BC ####[facility] PATHOLOGY [id number] [place] [address], RBC (Bld) [#/Vol] 3.33 10*6/uL Low 4.50-5.90 The [facility] Comment on above: Performed By: #### C BC ####[facility] PATHOLOGY [id number] [place] [address] [place], WBC (Bld) [#/Vol] 9.9 10*3/uL Normal 4.5-11.5 [facility] Comment on above: Performed By: #### C BC ####[facility] [id number] [place], [place], Care Plan Noteon 02-17-2023 Milieu Coordinator Authentication Interface Message Text Problem: Routine Care: [...] will be met Outcome: Progressing Normal [facility] Consultson 02-17-2023 Milieu Coordinator Authentication Interface Message Text PHYSICAL/OCCUPATIONAL THERAPY Attempted to see patient for PT/OT evals this date. Patient scheduled for OR this date for fixation of left femur fracture. Will follow up post-operative as able and medically appropriate. Sylvia Alcantara PT Normal [facility] GLUCOSE, FINGERSTICK-IN OFFI CEon 02-17-2023 Glucose [Mass/Vol] 140 mg/dL High 80-116 [facility] Comment on above: Performed By: #### 8 2948 #### NURSING GLUCOSE PROGRAM [address] [place], [address] Glucose [Mass/Vol] 140 mg/dL High 80 - 116 mg/dL [facility] Interpretation and review of laboratory results Abnormal [facility] MAGNESIUMon 02-17-2023 Magnesium [Mass/Vol] 1.7 mg/dL Normal 1.6-2.8 The [facility] Comment on above: Performed By: #### C BC #### [facility] [address] [place], [place], Magnesium [Mass/Vol] 1.7 mg/dL 1.6 - 2.8 mg/dL [facility] MRSA SCREENOrdered By: Shari Ceja on 02-17-2023 Interpretation and review of laboratory results Normal [facility] MRSA isol Org specific cx Ql (Nose) No methicillin resistant Staphylococcus aureus isolated. No methicillin resistant Staphylococcus aureus isolated. [facility] No Panel Informationon 02-17 Interpretation and review of laboratory results Normal [facility] PHOSPHORUSon 02-17-2023 Phosphate [Mass/Vol] 2.6 mg/dL Normal 2.3-4.2 The [facility] Comment on above: Performed By: #### C BC #### [facility] [address] [place], [place], Phosphate [Mass/Vol] 2.6 mg/dL 2.3 - 4.2 mg/dL [facility] Progress Noteson 02-17-2023 Milieu Coordinator Authentication Interface Message Text -------- GENERAL INFORMATION [...] R rib 9-10 fracture was seen at [facility].The patient had 5 packs of RBCs, 3 packs of FFP, 1 platelet, TXA and Vit K from when he arrived to [facility] and in transit. Patient takes coumadin. 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 Normal [facility] XR CHEST AP OR PA 1 [...] Blood group O Rh(D) positive Normal [facility] Comment on above: Performed By: #### 8 [id number] #### [facility] GLUCOSE PROGRAM [address] [place], [address] BASIC METABOLIC PANELon 01-25 Anion gap [Moles/Vol] 14 mmol/L Normal 10-20 [facility] Comment on above: Performed By: #### C BC #### [facility]ORATORY [address] [place] [address], Calcium [Mass/Vol] 8.3 mg/dL Low 8.6-10.3 [facility] Comment on above: Result Comment: Note updated reference ranges. Performed By: #### C BC #### S PATHOLOGY LABORATORY [address] [place] [address], Chloride [Moles/Vol] 109 mmol/L High 98-107 [facility] Comment on above: Result Comment: Note updated reference ranges. Performed By: #### C BC #### S PATHOLOGY LABORATORY [address] [place] [address], CO2 [Moles/Vol] 20 mmol/L Low 21-31 [facility] Comment on above: Result Comment: Note updated reference ranges. Performed By: #### C BC #### S PATHOLOGY LABORATORY [address] [place], [place], Creatinine [Mass/Vol] 1.38 mg/dL High 0.70-1.30 [facility] Comment on above: Result Comment: Note updated reference ranges. Performed By: #### C BC #### S PATHOLOGY LABORATORY [address] [place], [place], ESTIMATED GFR (CKD-EPI) 54 mL/min/1.73sqm Low >=60 [facility] Comment on above: Result Comment: 2020 [...] Inclusion of Race in Diagnosing Kidney Disease. [place] Journal of Kidney Diseases 2021;79(2):268-88.e1. 2. N Engl J Med 2020 Vol. 385 Issue 19 Pages 4994-9825 Performed By: #### C BC #### [facility] [address] [place] [address], Glucose [Mass/Vol] 171 mg/dL High 74-109 [facility] Comment on above: Performed By: #### C BC #### S PATHOLOGY LABORATORY [address] [place] [address], Potassium [Moles/Vol] 4.5 mmol/L Normal 3.5-5.0 [facility] Comment on above: Result Comment: Note updated reference ranges. Note updated reference ranges. Performed By: #### C BC #### [facility] [address] [place] [address], Sodium [Moles/Vol] 138 mmol/L Normal 136-145 [facility] Comment on above: Result Comment: Note updated reference ranges. Performed By: #### C BC #### [facility] [address] [place] [address], Urea nitrogen [Mass/Vol] 38 mg/dL High 7-25 [facility] Comment on above: Result Comment: Note updated reference ranges. Performed By: #### C BC #### [facility] [address] [place] [address], Anion gap [Moles/Vol] 13 mmol/L Normal 10-20 [facility] Comment on above: Performed By: #### C BC #### [facility] [address] [place] [address], Calcium [Mass/Vol] 9.8 mg/dL Normal 8.6-10.3 [facility] Comment on above: Result Comment: Note updated reference ranges. Performed By: #### C BC #### S PATHOLOGY LABORATORY [address] [place] [address], Chloride [Moles/Vol] 111 mmol/L High 98-107 [facility] Comment on above: Result Comment: Note updated reference ranges. Performed By: #### C BC #### [facility] PATHOLOGY LABORATORY [address] [place] [address], CO2 [Moles/Vol] 25 mmol/L Normal 21-31 [facility] Comment on above: Result Comment: Note updated reference ranges. Performed By: #### C BC #### [facility] PATHOLOGY LABORATORY [address] [place] [address], Creatinine [Mass/Vol] 1.12 mg/dL Normal 0.70-1.30 [facility] Comment on above: Result Comment: Note updated reference ranges. Performed By: #### C BC #### [facility] PATHOLOGY LABORATORY [address] [place] [address], ESTIMATED GFR (CKD-EPI) 69 mL/min/1.73sqm Normal >=60 [facility] Comment on above: Result Comment: 2020 [...] Inclusion of Race in Diagnosing Kidney Disease. [place] Journal of Kidney Diseases 202;79(2):268-88.e1. 2. N Engl J Med 1 Vol. 385 Issue 19 Pages 4408-5742 Performed By: #### C BC #### S PATHOLOGY LABORATORY [address] [place], [place], Glucose [Mass/Vol] 130 mg/dL High 74-109 [facility] Comment on above: Performed By: #### C BC #### S PATHOLOGY LABORATORY [address] [place] [address], Potassium [Moles/Vol] 5.3 mmol/L High 3.5-5.0 [facility] Comment on above: Result Comment: Note updated reference ranges. Note updated reference ranges. Performed By: #### C BC #### [facility] [address] [place], [address] Sodium [Moles/Vol] 144 mmol/L Normal 136-145 [facility] Comment on above: Result Comment: Note updated reference ranges. Performed By: #### C BC #### [facility] [address] [place], [place], Urea nitrogen [Mass/Vol] 27 mg/dL High 7-25 [facility] Comment on above: Result Comment: Note updated reference ranges. Performed By: #### C BC #### [facility] [address] [place], [place], Anion gap [Moles/Vol] 12 mmol/L Normal 10-20 [facility] Comment on above: Performed By: #### 8 2948 #### NURSING GLUCOSE PROGRAM [address] [place], [address] Calcium [Mass/Vol] 10.2 mg/dL Normal 8.6-10.3 [facility] Comment on above: Result Comment: Note updated reference ranges. Performed By: #### 8 2948 #### NURSING GLUCOSE PROGRAM [address] [place] [address], [address] Chloride [Moles/Vol] 108 mmol/L High 98-107 [facility] Comment on above: Result Comment: Note updated reference ranges. Performed By: #### 8 2948 #### NURSING GLUCOSE PROGRAM [address] [place], [address] CO2 [Moles/Vol] 28 mmol/L Normal 21-31 [facility] Comment on above: Result Comment: Note updated reference ranges. Performed By: #### 8 2948 #### NURSING GLUCOSE PROGRAM [address] [place], [address] Creatinine [Mass/Vol] 1.02 mg/dL Normal 0.70-1.30 [facility] Comment on above: Result Comment: Note updated reference ranges. Performed By: #### 8 2948 #### NURSING GLUCOSE PROGRAM [address] [place], [address] ESTIMATED GFR (CKD-EPI) 77 mL/min/1.73sqm Normal >=60 [...] Inclusion of Race in Diagnosing Kidney Disease. [place] Journal of Kidney Diseases 202;79(2):268-88.e1. 2. N Engl J Med 1 Vol. 385 Issue 19 Pages 4693-3988 Performed By: #### 8 2948 #### NURSING GLUCOSE PROGRAM [address] [place], [address] Glucose [Mass/Vol] 125 mg/dL High 74-109 [facility] Comment on above: Performed By: #### 8 2948 #### NURSING GLUCOSE PROGRAM [address] [place], [address] Potassium [Moles/Vol] 4.5 mmol/L Normal 3.5-5.0 [facility] Comment on above: Result Comment: Note updated reference ranges. Note updated reference ranges. Performed By: #### 8 2948 #### NURSING GLUCOSE PROGRAM [address] [place], [address] Sodium [Moles/Vol] 143 mmol/L Normal 136-145 [facility] Comment on above: Result Comment: Note updated reference ranges. Performed By: #### 8 2948 #### NURSING GLUCOSE PROGRAM [address] [place], [address] Urea nitrogen [Mass/Vol] 25 mg/dL Normal 7-25 [facility] Comment on above: Result Comment: Note updated reference ranges. Performed By: #### 8 6928 #### NURSING GLUCOSE PROGRAM [address] [place], [address] BLOOD CULTUREon 02-16-2023 Bacteria identified Cx Nom (Bld) C BLOOD: No Growth Normal [facility] Comment on above: Performed By: #### M G, CH8, PHOS #### [facility] [address] [place], [address] BLOOD GAS, ARTERIALon 2022 Base excess Calc [...] (BldV) 7.367 [pH] 7.320 - 7.430 [facility] Basic metabolic 2000 panelon 02-16-2023 Anion gap [Moles/Vol] 14 mmol/L 10 - 20 Met [facility] Calcium [Mass/Vol] 8.3 mg/dL Low 8.6 - 10. 3 mg/dL [facility] Chloride [Moles/Vol] 109 mmol/L High 98 - 107 mmol/L [facility] CO2 [Moles/Vol] 20 mmol/L Low 21 - 31 mmol/L [facility] Creatinine [Mass/Vol] 1.38 mg/dL High 0.70 - 1.30 mg/dL [facility] GFR/1.73 sq M.predicted CKD-EPI (S/P/Bld) [Vol rate/Area] 54 Low - PINF [facility] Glucose [Mass/Vol] 171 mg/dL High 74 - 109 mg/dL [facility] Interpretation and review of laboratory results Abnormal [facility] Potassium [Moles/Vol] 4.5 mmol/L 3.5 - 5.0 mmol/L [facility] Sodium [Moles/Vol] 138 mmol/L 136 - 145 mmol/L [facility] Urea nitrogen [Mass/Vol] 38 mg/dL High 7 - 25 mg/dL [facility] Anion gap [Moles/Vol] 13 mmol/L 10 - 20 Met [facility] Calcium [Mass/Vol] 9.8 mg/dL 8.6 - 10. 3 mg/dL [facility] Chloride [Moles/Vol] 111 mmol/L High 98 - 107 mmol/L [facility] CO2 [Moles/Vol] 25 mmol/L 21 - 31 mmol/L [facility] Creatinine [Mass/Vol] 1.12 mg/dL 0.70 - 1.30 mg/dL [facility] GFR/1.73 sq M.predicted CKD-EPI (S/P/Bld) [Vol rate/Area] 69 - PINF [facility] Glucose [Mass/Vol] 130 mg/dL High 74 - 109 mg/dL [facility] Potassium [Moles/Vol] 5.3 mmol/L High 3.5 - 5.0 mmol/L [facility] Sodium [Moles/Vol] 144 mmol/L 136 - 145 mmol/L [facility] Urea nitrogen [Mass/Vol] 27 mg/dL High 7 - 25 mg/dL [facility] Blood Bank Slipon 02-16-2023 Blood Bank Slip [phone] [id number]# 1.00TIFF Normal [facility] CALCIUM, IONIZEDon 3 CR ICA 1.34 mmol/L High 1.15-1.33 [facility] Comment on above: Result Comment: This test was developed, and its performance characteristics determined by the Department of Pathology of The [facility]. It has not been cleared or approved by the FDA. This test is used for clinical purposes only. Performed By: #### C R ICA ####[facility] PATH[facility] [id number] [place] [address], [id number] Calcium.ionized (Bld) [Moles/Vol] 1.34 mmol/L High 1.15 - 1.33 mmol/L [facility] Interpretation and review of laboratory results Abnormal [facility] CR ICA 1.24 mmol/L Normal 1.15-1.33 [facility] Comment on above: Result Comment: This test was developed, and its performance characteristics determined by the Department of Pathology of [facility]. It has not been cleared or approved by the FDA. This test is used for clinical purposes only. Performed By: #### C BC #### [facility] [address] [place] [address], CALCIUM, IONIZEDOrdered By: Vivian Pena on 02-16-2023 Calcium.ionized (Bld) [Moles/Vol] 1.24 mmol/L 1.15 - 1.33 mmol/L [facility] Interpretation and review of laboratory results Normal [facility] CBC WITH DIFFERENTIALon 01-25 Basophils (Bld) [#/Vol] 0.01 10*3/uL Normal 0.00-0.20 [facility] Comment on above: Performed By: #### ASIA Freitas, PHOS #### S PATHOLOGY LABORATORY [address] [place] [address], Basophils/100 WBC (Bld) 0.1 % Normal <=1.9 [facility] Comment on above: Performed By: #### ASIA Freitas, PHOS #### S PATHOLOGY LABORATORY [address] [place] [address], Eosinophils (Bld) [#/Vol] 0.00 10*3/uL Normal 0.00-0.70 [facility] Comment on above: Performed By: #### ASIA Freitas, PHOS #### S PATHOLOGY LABORATORY [address] [place] [address], Eosinophils/100 WBC (Bld) 0.0 % Low 0.1-4.0 [facility] Comment on above: Performed By: #### Jennifer Harper CH8, PHOS #### S PATHOLOGY LABORATORY [address] [place] [address], Erythrocyte distribution width (RBC) [Ratio] 14.9 % High 11.5-14.5 [facility] Comment on above: Performed By: #### ASIA Freitas, PHOS #### S PATHOLOGY LABORATORY [address] [place] [address], Hematocrit (Bld) [Volume fraction] 38.9 % Low 41.0-53.0 [facility] Comment on above: Performed By: #### ASIA Freitas, PHOS #### S PATHOLOGY LABORATORY [address] [place] [address], Hemoglobin (Bld) [Mass/Vol] 12.9 g/dL Low 13.9-16.3 [facility] Comment on above: Performed By: #### ASIA Freitas, PHOS #### S PATHOLOGY LABORATORY [address] [place] [address], Lymphocytes (Bld) [#/Vol] 0.42 10*3/uL Low 1.00-4.80 [facility] Comment on above: Performed By: #### ASIA Freitas, PHOS #### S PATHOLOGY LABORATORY [address] [place] [address], Lymphocytes/100 WBC (Bld) 3.3 % Low 24.0-44.0 [facility] Comment on above: Performed By: #### ASIA Freitas, PHOS #### S PATHOLOGY LABORATORY [address] [place] [address], MCH (RBC) [Entitic mass] 29.6 pg Normal 26.0-34.0 [facility] Comment on above: Performed By: #### ASIA Freitas, PHOS #### S PATHOLOGY LABORATORY [address] [place] [address], MCHC (RBC) [Mass/Vol] 33.2 g/dL Normal 32.0-35.9 [facility] Comment on above: Performed By: #### ASIA Freitas, PHOS #### S PATHOLOGY LABORATORY [address] [place] [address], MCV (RBC) [Entitic vol] 89 fL Normal 80-100 [facility] Comment on above: Performed By: #### ASIA Freitas, PHOS #### [facility] [address] [place] [address], MONOCYTE DISTRIBUTION WIDTH 20 Normal <=20 [facility] Comment on above: Performed By: #### ASIA Freitas, PHOS #### [facility] [address] [place], [place], Monocytes (Bld) [#/Vol] 1.18 10*3/uL High 0.20-1.00 [facility] Comment on above: Performed By: #### ASIA Freitas, PHOS #### [facility] [address] [place], [place], Monocytes/100 WBC (Bld) 9.1 % Normal 2.0-11.0 [facility] Comment on above: Performed By: #### ASIA Freitas, PHOS #### S PATHOLOGY LABORATORY [address] [place], [place], Neutrophils (Bld) [#/Vol] 11.30 10*3/uL High 1.50-8.00 [facility] Comment on above: Performed By: #### ASIA Freitas, PHOS #### [facility] [address] [place], Neutrophils/100 WBC (Bld) 87.5 % High 31.0-76.0 [facility] Comment on above: Performed By: #### ASIA Freitas, PHOS #### [facility] [address] [place], [place], Platelet mean volume (Bld) [Entitic vol] 7.8 fL Normal 7.5-11.2 [facility] Comment on above: Performed By: #### ASIA Freitas, PHOS #### [facility] [address] [place], [place], Platelets (Bld) [#/Vol] 149 10*3/uL Low 150-400 [facility] Comment on above: Performed By: #### ASIA Freitas, PHOS #### [facility] [address] [place] [address], RBC (Bld) [#/Vol] 4.36 10*6/uL Low 4.50-5.90 [facility] Comment on above: Performed By: #### ASIA Freitas, MIGUEL #### [facility] [address] [place] [address], WBC (Bld) [#/Vol] 12.9 10*3/uL High 4.5-11.5 [facility] Comment on above: Performed By: #### ASIA Freitas, MIGUEL #### S PATHOLOGY LABORATORY [address] [place] [address], CBC panel Auto (Bld)Ordered By: Wesley Maloney on 02-16-2023 Erythrocyte distribution width (RBC) [Ratio] 14.8 % High 11.5 - 14.5 % [facility] Hematocrit (Bld) [Volume fraction] 30.0 % Low 41.0 - 53.0 % [facility] Hemoglobin (Bld) [Mass/Vol] 10.2 g/dL Low 13.9 - 16.3 g/dL [facility] Interpretation and review of laboratory [...] 9.2 10*3/uL 4.5 - 11.5 K/uL [facility] CBC panel Auto (Bld)on [...] (RBC) [Ratio] 14.8 % High 11.5-14.5 [facility] Comment on above: Performed By: #### C BC ####[facility] PATHOLOGY [id number] [place], [place], Hematocrit (Bld) [Volume fraction] 30.0 % Low 41.0-53.0 [facility] Comment on above: Performed By: #### C BC ####[facility] PATHOLOGY [id number] [place] [address], Hemoglobin (Bld) [Mass/Vol] 10.2 g/dL Low 13.9-16.3 [facility] Comment on above: Performed By: #### C BC ####[facility] PATHOLOGY [id number] [place] [address], MCH (RBC) [Entitic mass] 30.5 pg Normal 26.0-34.0 [facility] Comment on above: Performed By: #### C BC ####[facility] PATHOLOGY [id number] [place] [address], MCHC (RBC) [Mass/Vol] 34.1 g/dL Normal 32.0-35.9 [facility] Comment on above: Performed By: #### C BC ####[facility] PATHOLOGY [id number] [place] [address], MCV (RBC) [Entitic vol] 89 fL Normal 80-100 [facility] Comment on above: Performed By: #### C BC ####[facility] PATHOLOGY [id number] [place] [address], Platelet mean volume (Bld) [Entitic vol] 8.4 fL Normal 7.5-11.2 [facility] Comment on above: Performed By: #### C BC ####[facility] PATHOLOGY [id number] [place] [address], Platelets (Bld) [#/Vol] 134 10*3/uL Low 150-400 [facility] Comment on above: Performed By: #### C BC ####[facility] PATHOLOGY [id number] [place] [address], RBC (Bld) [#/Vol] 3.35 10*6/uL Low 4.50-5.90 [facility] Comment on above: Performed By: #### C BC ####[facility] PATHOLOGY [id number] [place] [address], WBC (Bld) [#/Vol] 9.2 10*3/uL Normal 4.5-11.5 [facility] Comment on above: Performed By: #### C BC ####[facility] PATHOLOGY [id number] [place] [address], Erythrocyte distribution width (RBC) [Ratio] 15.2 % High 11.5-14.5 [facility] Comment on above: Performed By: #### C BC ####[facility] PATHOLOGY [id number] [place] [address], Hematocrit (Bld) [Volume fraction] 37.7 % Low 41.0-53.0 [facility] Comment on above: Performed By: #### C BC ####[facility] PATHOLOGY [id number] [place] [address], Hemoglobin (Bld) [Mass/Vol] 12.4 g/dL Low 13.9-16.3 [facility] Comment on above: Performed By: #### C BC ####[facility] PATHOLOGY [id number] [place] [address], MCH (RBC) [Entitic mass] 29.4 pg Normal 26.0-34.0 [facility] Comment on above: Performed By: #### C BC ####[facility] PATHOLOGY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 8.0-15.0 [facility] Comment on above: Performed By: #### 1 [id number], [id number], 75136139, [id number] #### [facility] Laboratory [address] [place] [address] Tobacco Screening.on 023 Fall risk assessment a) No falls within the last year [facility] [address] DO Work Phone: Tobacco use status CP b) No [facility] 250 DO Work Phone: Tobacco Screening. Yes [facility] 250 DO Work Phone: [...] rhythm. Crispin Porter M.D. ca Dictated: 08/02/2022 [id number] Transcribed: 08/03/2022 Normal [facility] Comment on above: Result Comment: Elec tronically Signed By: German ESCOBEDO, Christopher Castro\Date and Time Signed: 08/19/22 13:42 EDT POCT PT/INRon 08-16-2022 POCT INR 3.1 High .7-1.2 [facility] Comment on above: Performed By: #### 2 [id number] #### [facility] Laboratory [address] [place] [address] POCT PT 32.7 second(s) High 8.0-15.0 [facility] Comment on above: Performed By: #### 2 [id number] #### [facility] Laboratory [address] [place] [address] Falls Screening (Age 18+)on 08-13-2022 Fall risk assessment a) No falls within the last year [facility] [address] DO Work Phone: Consent for Procedure/Surger yon 08-05-2022 Consent for Procedure/Surgery [id number]#1 .00CD:127 Normal [facility] Monitor Recordon 08-05-2022 Monitor Record [id number] .00CD:127 Normal [facility] Cardiovascular Reporton Cardiovascular Report [id number]# 1.00CD:127 Normal [facility] Consent for Treatmenton Consent for Treatment [id number] .00CD:127 Normal [facility] Consultation Noteon 08-03-19 Consultation Note Patient: [...] of Adverse/Allergic Reaction to Sedation: None. Normal [facility] Comment on above: Result Comment: Elec tronically Signed By: German ESCOBEDO, Christopher Bansal\.br\Date and Time Signed: 08/02/22 12:50 EDT Inpatient Clinical Summaryon 08-02-2022 Inpatient Clinical Summary [address] [address] Clinical Summary Person Information: Name: FREDRICK STROUD Age: 71 Years : 1950 Sex: Male PCP: KARINA MELGAR MD Marital Status: Phone: [phone] Race: White Ethnicity: Non- or Language: Scottish Visit Id: Visit Reason: I48.19 Speciality: Acuity: Enc Type: Ambulatory/Same Day Surgery Med Service: Cardiovascular Arrival: 08/02/2022 11:37:14 Discharge: Dispo Type: Address: [address] [place] [id number] Provider Notes: Diagnosis: Atrial fibrillation Problems Active [...] This Visit Final Med List: acetaminophen-hydroco done (Trafford 325 mg-5 mg oral tablet) 1 Tablets [...] Follow up: With: Address: When: Christopher Porter [facility], [facility] [address] [place] [address] Business (1) Comments: Call for followup appointment Type Location Start Finish State Anticoagulation Follow Up 15 (FT) FT.CARDIO 08/16/2022 11:15 AM 08/16/2022 11:30 AM Confirmed Patient Education Information: CV - Cardioversion (CUSTOM) Normal [facility] Inpatient Patient Summaryon 08-02-2022 Inpatient Patient Summary [address] [address] Patient Discharge Instructions PERSON INFORMATION Name: FREDRICK [...] Follow up: With: Address: When: Christopher Waderick [facility], [facility] [address] [place] [address] Business (1) Comments: Call for followup appointment [...] with No Changes Other Medications acetaminophen-hydroco done (Trafford 325 mg-5 mg oral tablet) 1 Tablets [...] WITH YOU AT ALL TIMES. acetaminophen-hydroco done (Trafford 325 mg-5 mg oral tablet) 1 Tablets [...] Pharmacy Information: Comment: PATIENT EDUCATION INFORMATION Instructions: [place], [place] CARDIOVERSION AFTER THE PROCEDURE: DIET: ? [...] the event (more content not included)... Normal [facility] Laboratory - Chemistry and C hemistry - challengeon 08-02-2022 CO2 [Moles/Vol] 27 mmol/L Normal 21-31 [facility] 250 DO Work Phone: Laboratory - Coagulationon 0 08-02-2022 INR Coag (Bld) [Relative time] 3.5 {INR} [facility] 250 DO Work Phone: Comment on above: INR results are spec ifically intended to assess patients stabilized on long-term Anticoagulation therapy suggested INR?s ?Less Intensive Anticoagulation? 2.0 ? 3.0Conventional Range 3.0 ? 4.5 Lyteson 08-02-2022 Anion gap [Moles/Vol] 12 mmol/L Normal 6-16 [facility] Comment on above: Order Comment: STAT on admission. Performed By: #### 2 [id number] #### [facility] Laboratory [address] [place] [address] Chloride [Moles/Vol] 104 mmol/L Normal 101-111 [facility] Comment on above: Order Comment: STAT on admission. Performed By: #### 2 [id number] #### [facility] Laboratory [address] [place] [address] CO2 [Moles/Vol] 27 mmol/L Normal 21-31 [facility] Comment on above: Order Comment: STAT on admission. Performed By: #### 2 [id number] #### [facility] Laboratory [address] [place] [address] Potassium [Moles/Vol] 4.5 mmol/L Normal 3.5-5.3 [facility] Comment on above: Order Comment: STAT on admission. Performed By: #### 2 [id number] #### [facility] Laboratory [address] [place] [address] Sodium [Moles/Vol] 138 mmol/L Normal 135-145 [facility] Comment on above: Order Comment: STAT on admission. Performed By: #### 2 [id number] #### [facility] Laboratory [address] [place] [address] No Panel Informationon 06-09 -2023 12 {mEq/L} Normal 6-16 [facility] 250 DO Work Phone: 104 mmol/L Normal 101-111 [facility] Work Phone: [phone] 4.5 mmol/L Normal 3.5-5.3 [facility] 250 DO Work Phone: 138 mmol/L Normal 135-145 [facility] Work Phone: [phone] 41.2 {second(s)} above high threshold 9.4-12.5 [facility] Work Phone: [...] the same coagulation reagent and instrumentation as [facility]. Currently there are no coagulation studies available worldwide for children to 14 days, and no normal ranges. PTon 08-02-2022 INR Coag (PPP) [Relative time] 3.5 {INR} Invalid Interpretation Code [facility] Comment on above: Order Comment: On ad mission if patient is on Coumadin therapy. Result Comment: INR results are specifically intended to assess patients stabilized on long-term Anticoagulation therapy suggested INR?s ?Less Intensive Anticoagulation? 2.0 ? 3.0 Conventional Range 3.0 ? 4.5 Performed By: #### 2 [id number] #### [facility] Laboratory [address] [place] [address] PT Coag (PPP) [Time] 41.2 second(s) High 9.4-12.5 [facility] Comment on above: Order Comment: On [...] the same coagulation reagent and instrumentation as [facility]. Currently there are no coagulation studies available worldwide for children to 14 days, and no normal ranges. Performed By: #### 2 [id number] #### [facility] Laboratory [address] [place] [address] Patient Education - Texton 0 08-02-2022 Patient Education - Text [place] CARDIOVERSION AFTER THE PROCEDURE: DIET: ? [...] event you are unable to reach your hospital account manager, please call Kenzie at [phone] and the chlorine operator will assist you in contacting your [...] or toes turn cold or blue. Normal [facility] Progress Note-Physicianon Progress Note-Physician Patient: FREDRICK STROUD Age: 71 years Sex: Male : 1950 Associated Diagnoses: None Author: German ESCOBEDO, Christopher Bansal Impression and Plan DCC WITH PROPAFOL 70 MG AND 200 J SYNC ONCE TO NSR SAT>95 % NO NEURO CHANGES PLAN HOME ON SAME RX Normal [facility] Comment on above: Result Comment: Elec tronically Signed By: German ESCOBEDO, Christopher Bansal\.br\Date and Time Signed: 08/02/22 13:03 EDT POCT PT/INRon 07-26-2022 POCT INR 2.7 High .7-1.2 [facility] Comment on above: Performed By: #### 2 [id number] #### [facility] Laboratory [address] [place] [address] POCT PT 29.2 second(s) High 8.0-15.0 [facility] Comment on above: Performed By: #### 2 [id number] #### [facility] Laboratory [address] [place] [address] POCT PT/INRon 07-19-2022 POCT INR 3.2 High .7-1.2 [facility] Comment on above: Performed By: #### 2 [id number] ####[facility] [address] [place] [address] POCT PT 34.5 second(s) High 8.0-15.0 [facility] Comment on above: Performed By: #### 2 [id number] ####[facility] [address] [place] [address] Physician Orderon 07-16-2022 Physician Order [id number] .00CD:127 Normal [facility] POCT PT/INRon 07-12-2022 POCT INR 4.3 High .7-1.2 [facility] Comment on above: Performed By: #### 1 [id number], [id number], [id number], [id number] #### [facility] Laboratory [address] [place] [address] POCT PT 45.1 second(s) High 8.0-15.0 [facility] Comment on above: Performed By: #### 1 [id number], [id number], [id number], [id number] #### [facility] Laboratory [address] [place] [address] Falls Screening (Age 18+)on 07-05-2022 Fall risk assessment a) No falls within the last year [facility] 600 DO Work Phone: Tobacco use status [facility] b) No [facility] 600 DO Work Phone: Office Visit [...] HOURS Cardioversion; Status:Active - Retrospective Authorization; Requested for:[id number]; IO EKG Electrocardiogram- 12 Lead; Status:Complete; Done: [id number] SocHx: Former smoker Tobacco Use Screening; Status:Complete; Done: [id number] Patient Instructions Please bring all medicines, vitamins, [...] 2 MG Oral TabletTake as directed by [facility] coumadin clinic Zinc 50 MG [place]KE 1 [...] negative for complaint. Vitals Vital Signs Recorded: [id number] 09:08AM Heart Rate72, Apical Rryemjin688, LUE, Sitting Ewfgelgnw57, LUE, Sitting Height5 ft 6 in Djjewg485 lb BMI Eqijumqcqu03.54 kg/m2 BSA Calculated2.18 Tobacco Useb) No F (more content not included)... [facility] PO[facility] PT/INRon 06-26-2022 POCT INR See Comment Invalid Interpretation Code .7-1.2 [facility] Comment on above: Result Comment: Test ing error, please disregard previously charted results Performed By: #### 1 [id number], [id number], [id number], [id number] #### [facility] Laboratory [address] [place] [address] POCT PT See Comment Invalid Interpretation Code 8.0-15.0 [facility] Comment on above: Result Comment: Test ing error, please disregard previously charted results Performed By: #### 1 [id number], [id number], [id number], [id number] #### [facility] Laboratory [address] [place] [address] ECG 12 lead ECGon 06-11-2022 ECG 12 lead ECG [facility] Main [address] [address] Electrocardiograph Report Signed Patient: Fredrick Stroud MR#: [id number] : 1950 Acct:[id number] Age/Sex: 71 / M ADM Date: 06/11/22 Loc: EL Room: Type: [facility] Attending Dr: Christopher Porter MD [...] Wisam Torre MD 0 06/11/22 [address] [facility] ECG post procedureon 023 ECG post procedure [facility] Main [address] [address] Electrocardiograph Report Signed Patient: Fredrick Stroud MR#: [id number] : 1950 Acct:[id number] Age/Sex: 71 / M ADM Date: 06/11/22 Loc: EL Room: Type: [facility] Attending Dr: Christopher Porter MD [...] Wisam Torre MD 0 06/11/22 [address] [facility] Electrolyteson 06-11-2022 Anion gap [Moles/Vol] 12.3 mmol/L Normal 6.0-15.0 [facility] Comment on above: Result Comment: PERF ORMED BY: [place] [address] PATHOLOGIST MARINE PAINTER EYAD HOWARD M.D. Performed By: #### C BC, CMP, HS TROP, BNP #### [facility] [address] [place] [address] Chloride [Moles/Vol] 103 mmol/L Normal 98-107 [facility] Comment on above: Performed By: #### C BC, CMP, HS TROP, BNP #### [facility] [address] [place] [address] [place] CO2 [Moles/Vol] 28.2 mmol/L Normal 21.0-31.0 [facility] Comment on above: Performed By: #### C BC, CMP, HS TROP, BNP #### [facility] [address] [place] [address] [place] Potassium [Moles/Vol] 4.5 mmol/L Normal 3.5-5.1 [facility] Comment on above: Performed By: #### C BC, CMP, HS TROP, BNP #### [facility] [address] [place], [place] [address] [facility] Sodium [Moles/Vol] 139 mmol/L Normal 136-145 [facility] Comment on above: Performed By: #### C BC, CMP, HS TROP, BNP #### [facility] [address] [id number] [facility] No Panel Informationon 06-11 12.3\S\12.3 Normal 6.0-15.0 [facility] 250 DO Work Phone: [phone] Comment on above: PERFORMED BY:[facility] [place], [place] [phone] MEDICAL DIRECTOREYAD HOWARD M.D. 28.2\S\28.2 Normal 21.0-31.0 [facility] 250 DO Work Phone: 103\S\103 Normal 98-107 [facility] 250 DO Work Phone: [phone] 4.5\S\4.5 Normal 3.5-5.1 [facility] DO Work Phone: 139\S\139 Normal 136-145 [facility] DO Work Phone: POCT PT/INRon 06-07-2022 POCT INR 2.7 High .7-1.2 [facility] Comment on above: Performed By: #### 2 [id number] #### [facility] Laboratory [address] [place] [address] POCT PT 28.8 second(s) High 8.0-15.0 [facility] Comment on above: Performed By: #### 2 [id number] #### [facility] Laboratory [address] [place] [address] POCT PT/INRon 05-28-2022 POCT INR 2.8 High .7-1.2 [facility] Comment on above: Performed By: #### 1 [id number], [id number], [id number], [id number] #### [facility] Laboratory [address] [facility] [place] [address] POCT PT 30.6 second(s) High 8.0-15.0 [facility] Comment on above: Performed By: #### 1 [id number], [id number], [id number], [id number] #### [facility] Laboratory [address] [facility] [place] [address] POCT INR Error Invalid Interpretation Code .7-1.2 [facility] Comment on above: Performed By: #### 2 [id number] #### [facility] Laboratory [address] [place] [address] POCT PT Strip Error Invalid Interpretation Code 8.0-15.0 [facility] Comment on above: Performed By: #### 2 [id number] #### [facility] Laboratory [address] [place] [address] POCT PT/INRon 05-21-2022 POCT INR 3.1 High .7-1.2 [facility] Comment on above: Performed By: #### 1 [id number], [id number], [id number], [id number] #### [facility] [address] [place] [address] POCT PT 33.1 second(s) High 8.0-15.0 [facility] Comment on above: Performed By: #### 1 [id number], [id number], [id number], [id number] #### [facility] [address] [place] [address] POCT PT/INRon 05-14-2022 POCT INR 3.2 High .7-1.2 [facility] Comment on above: Performed By: #### 2 [id number] ####[facility] [address] [place] [address] POCT PT 34.5 second(s) High 8.0-15.0 [facility] Comment on above: Performed By: #### 2 [id number] ####[facility] [address] [place] [address] POCT INR Error Invalid Interpretation Code .7-1.2 [facility] Comment on above: Performed By: #### 2 [id number] #### [facility] Laboratory [address] [place] [address] POCT PT Strip Error Invalid Interpretation Code 8.0-15.0 [facility] Comment on above: Performed By: #### 2 [id number] #### [facility] Laboratory [address] [place] [address] Falls Screening (Age 18+)on 05-02-2022 Fall risk assessment a) No falls within the last year [facility] 600 DO Work Phone: Progress Note-Physicianon Progress [...] stroke: no 4. Serious co-morbid conditions (recent GA, anemia with Hct <30%, CRI with SCr > 1.5, DM): no Score = 1/4 Risk (low = 0, mod = 1-2, high = 3-4): Health Status Allergies: Allergic Reactions (Selected) No Known Medication Allergies, Allergies (1) Active Reaction No Known Medication Allergies None Documented Current medications: (Selected) Prescriptions Prescribed MDI spacer adult: 1 EA, Inhalation, As Directed, 1 EA, Refill(s) 0 Trafford 325 mg-5 mg oral tablet: 1 tab(s), [...] spacer adult 1 EA, Inhalation, As Directed Trafford 325 mg-5 mg oral tablet 1 tab(s), PRN, Oral, q6hr Ventolin HFA 90 mcg/inh inhalation aerosol with adapter 2 puff(s), PRN, Inhalation, q6hr Coumadin , No qualifying data available Problem list: All Problems HTN (hypertension) / SNOMED CT 2347243114 / Confirmed Class 3 severe obesity with body mass index (BMI) of 40.0 to 44.9 in adult / SNOMED CT 0949500186 / Confirmed Resolved: Cancer of prostate / SNOMED CT 3630441585, Active Problems (2) Class 3 severe obesity [...] stroke: no 4. Serious co-morbid conditions (recent GA, anemia with Hct <30%, CRI with SCr > 1.5, DM): no Score = 1/4 Risk (low = 0, mod = 1-2, high = 3-4): Normal [facility] Comment on above: Result Comment: Elec [...] been managed by the [facility] Coumadin clinic. He says he is therapeutic [...] Recorded: 29Apr2022 11:48AM Heart Rate60, R Radial Prethbxq788 Vbkbkaiud94 Height5 ft 6 in Icirqd281 lb 6 oz BMI Cagcuoekzm62.09 kg/m2 BSA Calculated2.19 Tobacco Useb) No Falls Screening (Age 16+)a) No falls within the last year Physical Exam Constitutional: alert and in no acute distress. Eyes: no erythema, swelling or discharge from the eye . Neck: neck i (more content not included)... Normal [employer] Tobacco Screening.on 023 Fall risk assessment a) No falls within the last year [facility] 600 DO Work Phone: Tobacco use status CPHS b) No [facility] 600 DO Work Phone: POCT PT/INRon 04-19-2022 POCT INR 1.7 High .7-1.2 [facility] Comment on above: Performed By: #### 1 [id number] #### [facility] Laboratory [address] [place] [address] POCT PT 19.1 second(s) High 8.0-15.0 [facility] Comment on above: Performed By: #### 1 [id number], [id number], [id number] #### [facility] Laboratory [address] [place] [address] Coding Summary.on 04-08-2022 Coding Summary. CD:[id number]:[id number] G h0bWw+PGhlYWQ+LY2RYBA mQ53afTDvkY3HY4uISG5Y IUVUNRGJDM0IJU0jzUW7E YonX9NpmkVa HnyrrEHiUB06TKh0OZD9v NubTEajzM7yxERrK1q1Gt XwDE99fM22LDecXDHrJgE 3LjZpbjsgbWFy C7uxFlWpdVLsDzq+PHRhY mxlIHdpZHRoPScxMDAlJy YlxNabBI1hJe3eDWBhBFS vbGxhcHNlOiBj p5qoZOTnKOkwJH4rnLgcV 2TltBN0AGSzs4y9Kb95qJ I+SLAlBBS3gVwcXXzwq58 6KvQvz7qyKOQ0 mIGaNLmgIHG5H88ht6R2E IBoAYFbVMM8bAU5yP2zpH ejigkvB7FgtCYeHuD0QUO 1yXSelH5uiLxw ahxdyD5vQie+H87DIU0UY PBPVO3HLhy8P9GtIeougU I+DC69QHIlEL37zUEgtQO zl6ommKr6QjZk WWMrCJH4yAyuBMprm2KyC NCqI57xpSQbm0Z6ZMHijL iupJXpSiZaoWN1wI6tGXl gdpdhc2dguwmn Mjhsg1tgib79lS30O28tW DwqMFDaQLG9OYXiVBVxwI eutr3wsA9iNq2+OXljm4d bb7iwyVw6SqQz CTDvmpYgbJtkYAB9m3ArD n24M2DlyDqgg4QrVyw0vh 42tHCmx4V1lEG8LJyuWZY dbY7aAPfxGyT0 AZQsBdHlmA84cLCbROmwC g8wwYthjLtrHM9rRDGgwq twHEClbJ4sWRSmjMTvcLk lTG0fWVMnpsan u601LmSaBRQ9MPStuWHuU 3SqfP3qWeKzFEJaOXRxO3 KxrTJoPQsoC695MBfjUqE 7SCQsskUjH0Yn ZYQmdRqdTtA9e3O0Pq1Le 4PvrhuoUSG5HWbxHDNdJr InExVgDhX2V2AlXoy3KRN abCgrXD1mU8Sl JEDinkoqhammxFD7YYRbO FVuwD45uISjBDeuHx0nv1 N8l980XDSoUFSyiN39Tf4 udDogMTBwdCBU jW4iazwlu0bfkdumPzGxD HOoYKj6YHb3BZWanBofVk YzJRZ4BbG3TJR5vYNpwQ9 kwEnymszovF3t Oyc+N95lzQ5iENI6JPR8t fhoIGJqjyIfUA24VF96B6 RyPjwvdGFibGU+PGRpdiB piNunTX1aDwDq q3xta3HoSOpbE2RmMHEvZ NdpTup6SKXlHBK8kEJ2fW 7oXWTyARsov7M6hKV2W8W auiTmiv7hm5ym PFEyYTkyL77gtFSln9T3X CZkcDU4RNZkoBtaVoIsxB 93Oyc+CKJauKxjn6TiRcw fn7gzd5sumRf1 UtWzSRBpftBkgAzeVLZ8m 6TuWx93D36qBNwzWUIrEH OwNIYvHZGsvTusmn0tlS6 wIi8+PGNvbCB3 oRP3lG7sXQSwLjN8JVweV 835YsGkiPUiHfgpc4otv4 mtqMj0FhKxBHHtdkTwmDz zODS8u4YnIb72 V76rOJhyOUXdWXNcHAGbD TEsgBjpwt8hkS6hPi4+PC 2lt3fjgx52kB00wHM+PHR qMGT2oXolKFlq GVUeaA0sPKaoAgR8LLMdN qTudA03yXGeYRbrQp1fsB xpjRocFJ3oHWTydqqjh12 8GrOhd9jyXCGe gODmMKztXRX1E68si7T8O XHbQLJnTZN7fBA9bE6pqB lnbjogbGVmdDsgdmVydGl tYSawGVghV033 IHRvcDsnPlBhdGllbnQgT iYpHWw4E9CvRvl0GJXubU acWI2gjDQuKJzgPm8aiNn naZdzLB2cJKBc lvkhl452GxQkz1owZMFsa FGmZCfbPWP5L92nr3G8YB RsOOWnKZX1xHK8pV5iyMy nbjogbGVmdDsg dnNoiAqpBEsrVNcrN566G HRvcDsnPkJpcnRoIERhdG X8WQ87WR79gOTxq5N7rWK 3K5ElTGKsslce bsfdoMY4PDGpOVUsdA10O b3yeIfeFr2xAQJsMDE4NX KqzHVbL5GvhY6hXsEiJXS nAANzN6ZsjGFz JBuqJ726RBerAlA7DXLyz mXuI5YwVLPrtOnaKpJ1a4 Y2Py6EX2L4GA22ZX86dDS ab4D7uNJ0P7Md BZMgguqfetvxoPQ0HPOeW RErzR24Sx6fsQydGv9yJA KoBVA3JJXovSIcG3ZznG4 yOiAjMDAwMDAw N3MyaOPgUCgzE898IIohY eB9YLFqyjKfK3LlYQTfhS awEoI9x4M1Xj6WNLb9SW0 1OZ87wXApz4K0 uWJ2M1YvOFXtmlnoznrub QK1EFMdYMVwfZ65Cu6xqH diKf2uQMDoLAL5VVHmaMN pC9VguQ5jTtCj QJXiRQJpK3CixWBmQZkcJ 635AZbzRxY6FMGbgpAdF2 LzXVMazYdgNbS5c8J3Br5 HEVEyZL23CDK6 iVD9FC95BC09H4BwUbbab GFibGU+PHRhYmxlIHdpZH RoPScxMDAlJyBzdHlsZT0 iFx2bZBAwGXUd jXpoqSDkKoKvx3nnLDKjY FsbIU3tcDiyK4FppHR3FO Eoy8u4Mg26W16eY7GrbLN +URWzmIY3xIU8 iJ2hByYqXwK6EUwtC734N jUbpJCkExvhs8jfk8aceZ i6JyY7QGVdnfEcrGnkXBC 0n9RsYl00L67w IHdpZHRoPSIxNSUiIHZhb Fraqn2wwL2kSq2+PGNvbC Y8vFP1iO4dOxPzElI9TNe hS651TtWerZMj Ukyzh4buy0eofIk1YnZfO TJvbiNppXpeJIA1h7VbMv 83I5XddGqjx2FrSka9sn0 5qTPti1C2zBZ2 H7WpZZByqithnNTqrUnhZ E7dDCSglfmnQIWdlG4dQR XhR8e3VyIpDsR4MAthN4A xfeT9UFZhsCGa NIpbCAL2E01ew0U6ZIQlQ MVuYAQ9hNH9bI1btQodxk ogbGVmdDsgdmVydGljYWw kEIloX587FFUl yYqfIQUlzA2oWISeaZAnl NswFV2aLZBlxhchIiVNCx WOBHihMDOBDptPKMx2Q0D tEhr9JGDpsZtw LR3xvEUfQDkxWn8vgVzlb MmpAH7xREPuqsclLNUquY 2gOVEogGHddMjxGK1uHSK btmjfu535EpBk SNT9XXUviUKrD6EcgV6vG iGxRLLjSWEuE9WdySUmIM neM120ESrhArL2EXTzxeU yH8JeHKHlxTrm SkP8m3E3Fu5fMW4uWR9xM AY0AO46EC51fHQwq4X0nP J0O1DtEZOdydnimxsuwBB 3MHPbJTKxwQ98 xGGfIKbhSa6bd6X0g278B XDoNKSnuK16Hn0geFdkYA TwcUNMcN3yyroxr8vpges gIzAwMDAwMDt0 XFs5ELKidAwvJfOzOHK0R uR8SJQ7hFRxnB4utHnmuy utwZ7sIsi+NzMgWWVhcnM 6O3RwZdy5PGVe zSxoTB3eoMCeZLneOk5bi WmppElyCK6sACHjpdqcNB UrpN1cZUVdfKQctGmfZR0 nUAQlbjepl183 XwNcRFM8EPYbvHTlO1Ojs G9hCxBmWGWeHGVhC4PcdM OwZZkxR858YSbjIvC6WAY elaVhI8IqMXPj jXlxYnC0i7M4Nx9ESLxaM J64TN29zNKur8C4hZZ2L8 CfISYypzsbkvqjrEE3AQK vXQCqsM84uTAs VCjyXi3wn6Q9f611VWBfT LMcbE83Gh2uhYrvCDUteA ZLqF3xnnbkp5dhkqejNjN pLRHbVHr0GQa2 BUFkkOlhSpMtUOF2KdE1G WA3hSUrgH6zfCifklnrsC 9wOyc+BlHssJYddH0zIO0 4PF31B2GxEofz dGFibGU+PHRhYmxlIHdpZ HRoPScxMDAlJyBzdHlsZT 4yBw4iNSSqERHrvZyfiAZ dCtHwh3bzDLWa BDkqOF4ptLopT4HmfCF6C RRbj5m9So47F33aD2AecC A+TUQziER8gZD7kR2vJoJ vKtC0TLzrM137 AeWyoMHaHawer3xuz5chy Th2OqPcJZYgfwDjcRpzDN O4h1OhHr08F47mNDmnZVX oPSIyMCUiIHZh eVoyqi1jlD5rQp7+PGNvb TL4aQW3nY1fIsZwCzP8RC xgT714UyStdFWdTbjcC51 mM4BlvTN+PHRy Fiq4WUIygEwjPY3ppZEwE BzyJv6lFPI3DgYrVzWsFI gvC7JpVHYgkknthbhqdEP 8XWJdTFGniO11 Lg3loGzgEc9bNNUmJAB5G VWgsVRkY8CqfC3qUnFjWB GpGVHmV7HteJSrDEakO09 4GHpwNiG8TQVn byJyO9HlEWPwvHavPrR5g 3N5Qu6SqHyzaUHqUU6bSj OdQBf8B9LuFli8XYNgiNx sCW2jmZKgSIcq Bc0kaMyfgOljXC5kBJXcy izxw741GaZvg8ogYZTniO SvLSuqCDX0F66ba2W1WKC cWUPjJXQ8nWQ0 cR0bzIhufamcrZJsxZhzr eAtpGajSQilLXgdW154WL GhiGqwJfYYLuh0L5ZgScu 4WPEzvRcmFT8l uHWvAVnvOb1scPwujSipG N6eBPRguewao090RdMsa0 diXRBgoPLmJOqmPYY2J61 se0H8OSZhFAQk RPM8eEI5hQ2xdZcqnbuvd GVmdDsgdmVydGljYWwtYW hhF885NNDejMadGy5WImi 3W1AbKjv5TCHo yYazYG0dkSMpREljVj3pl FewbQvnVI8iUTJnrjcri9 21EqLss6kfXDUxeOUkEKw kUOI6X70uh1X0 OKRqYRDiQFR6vNO0hY4rh GlnbjogbGVmdDsgdmVydG mzWLjyLPdjS713EGTzqQp nPlBheWVyOjwv dGQ+NX64jq59V7VkSnqcO yh4AXRpPWJ8cWL1jT3qUF SqFFnnj9W4wDH3S7LnvbR rte5ng0edZNAc ZTog (more content not included)... Normal [facility] POCT PT/INRon 04-05-2022 POCT INR 1.3 High .7-1.2 [facility] Comment on above: Performed By: #### 2 [id number] #### [facility] Laboratory [address] [place] [address] POCT PT 15.0 second(s) Normal 8.0-15.0 [facility] Comment on above: Performed By: #### 2 [id number] #### [facility] [address] [place] [address] POCT INR Error Invalid Interpretation Code .7-1.2 [facility] Comment on above: Performed By: #### 1 [id number] #### [facility] [address] [place] [address] POCT PT Strip Error Invalid Interpretation Code 8.0-15.0 [facility] Comment on above: Performed By: #### 1 [id number] #### [facility] [address] [place] [address] POCT INR Error Invalid Interpretation Code .7-1.2 [facility] Comment on above: Performed By: #### 1 [id number], [id number], [id number], [id number] #### [facility] [address] [place] [address] POCT PT Strip Error Invalid Interpretation Code 8.0-15.0 [facility] Comment on above: Performed By: #### 1 [id number], [id number], [id number], [id number] #### [facility] [address] [place] [address] Physician Orderon 04-01-2022 Physician Order [id number]# 1.00CD:127 Normal [facility] Consent for Treatmenton Consent for Treatment [id number] .00CD:127 Normal [facility] POCT PT/INRon 03-29-2022 POCT INR 1.3 High .7-1.2 [facility] Comment on above: Performed By: #### 2 [id number] #### [facility] [address] [place] [address] POCT PT 14.2 second(s) Normal 8.0-15.0 [facility] Comment on above: Performed By: #### 2 [id number] #### [facility] [address] [place] [address] [facility] echo transthoracicon [facility] echo transthoracic [address] [address] Echocardiogram Signed Patient: Fredrick Stroud MR#: [id number] : 1950 Acct:[id number] Age/Sex: 71 / M ADM Date: 03/27/22 Loc: Room: Type: [facility] Attending Dr: Sejal Link CLINICAL DOCUMENTATION CONSULTANT-C Ordering Provider: Sejal Link APRN Date of Service: 03/27/22/ ECH/ECH echo transthoracic: Afib. SOB. HTN. Copies to: LUCY Hankins MD, [facility] BSA: 2.2 m2 BP: 125/82 mmHg HR: [...] 03/27/22 1449 Signed By: Love Gaviria MD, [facility] 03/27/22 [address] [facility] Free T4 (Free Thyroxine)on 0 03-27-2022 Free T4 [Mass/Vol] 1.01 ng/dL Normal 0.61-1.12 [facility] Comment on above: Order Comment: Reaso n for Exam Atrial fibrillation;Essential hypertension Performed By: #### C BC, CMP, HS TROP, BNP #### [facility] [address] TSH DL <= 0.005 mIU/L QnOrde red By: Sejal Link on 03-27-2022 TSH Qn 2.57 m[IU]/L 0.45-5.[address] [facility] Thyroid Stimulating Hormoneo n 03-27-2022 TSH Qn 2.57 m[IU]/L Normal 0.45-5.[address] [facility] Comment on above: Order Comment: Reaso n for Exam Atrial fibrillation;Essential hypertension Result Comment: PERF ORMED BY: [place] [address] PATHOLOGIST MARINE PAINTER EYAD HOWARD M.D. Performed By: #### C BC, CMP, HS TROP, BNP #### [facility] [address] [place] [address] [place] Thyroxine (T4) free [Mass/vo lume] in Serum or PlasmaOrdered By: Sejal Link on 03-27-2022 Free T4 [Mass/Vol] 1.01 ng/dL 0.61-1.12 [facility] Triiodothyronine (T3) Freeon 03-27-2022 Triiodothyronine (T3) Free 3.17 pg/mL Normal 2.50-3.[address] [facility] Comment on above: Order Comment: Reaso n for Exam Atrial fibrillation;Essential hypertension Result Comment: PERF ORMED BY: [facility] [address] [place] [address] PATHOLOGIST MARINE PAINTER EYAD HOWARD M.D. Performed By: #### C BC, CMP, HS TROP, BNP #### [facility] [address] [place] [id number] [facility] Triiodothyronine (T3) Free [ Mass/volume] in Serum or PlasmaOrdered By: Sejal Link on 03-27-2022 Free T3 [Mass/Vol] 3.17 pg/mL 2.50-3.90 [facility] Office Visit (Cardiology)on 03-21-2022 Follow-up visit [...] Goal 2.0-3.0. Patient would like managed with [facility] Coumadin clinic Follow up in 2 months [...] which include rate control with anticoagulation versus catholic of maintenance of sinus rhythm. After discussing [...] Signs Recorded: 21Mar2022 02:26PM Heart Rate67, Apical Hkrqzgjr924, RUE, Xvmqaix394, LUE, Sitting Zgpalsgis17, RUE, Isgxpko41, LUE, Sitting He (more content not included)... Normal [facility] Albumin [Mass/volume] in Ser um or PlasmaOrdered By: Yo Blood on 03-11-2022 Albumin [Mass/Vol] 4.1 g/dL 3.2-5.5 [facility] B-Type Natriuretic Peptideon 03-11-2022 Natriuretic peptide B (Bld) [Mass/Vol] 101.0 pg/mL High 5-[address] [facility] Comment on above: Result Comment: PERF ORMED BY: [place] [address] PATHOLOGIST MARINE PAINTER EYAD HOWARD M.D. Performed By: #### C BC, CMP, HS TROP, BNP #### [address] Basophils Auto (Bld) [#/Vol] Ordered By: Yo Blood on 03-11-2022 Basophils (Bld) [#/Vol] 0.0 10*3/uL 0.0-0.[address] [facility] Basophils/100 WBC Auto (Bld) Ordered By: Yo Blood on 03-11-2022 Basophils/100 WBC (Bld) 1.1 % . [facility] COVID-19 Antigenon 3 COVID-19 Antigen [...] developed and its performance characteristic determined by [employer] and validated at [facility]. This test has not been [...] for SARS Antigen by OLY PERFORMED BY: [facility] [address] [place] [address] PATHOLOGIST MARINE PAINTER EYAD HOWARD M.D. [facility] Comment on above: Performed By: #### C OVID-19 GERTRUDE SOFIANEG #### [facility] [address] COVID-19 SOFIAOrdered By: Buster Blood on 03-11-2022 SARS-CoV+SARS-CoV-2 (COVID-19) Ag IA.rapid Ql (Resp) Negative Negative [facility] Comment on above: This is a duplicate Gertrude SARS Antigen (OLY) result to be used for statistical tracking purpose only. Complete Blood Count Auto Di ffon 03-11-2022 Basophils (Bld) [#/Vol] 0.0 10*3/uL Normal 0.0-0.[address] [facility] Comment on above: Result Comment: PERF ORMED BY: [place] [address] PATHOLOGIST MARINE PAINTER EYAD HOWARD M.D. Performed By: #### C BC, CMP, HS TROP, BNP #### [address] Basophils/100 WBC (Bld) 1.1 % Normal . [facility] Comment on above: Performed By: #### C BC, CMP, HS TROP, BNP #### [address] Eosinophils (Bld) [#/Vol] 0.0 10*3/uL Normal 0.0-0.[address] [facility] Comment on above: Performed By: #### C BC, CMP, HS TROP, BNP #### [address] Eosinophils/100 WBC (Bld) 0.4 % Normal . [facility] Comment on above: Performed By: #### C BC, CMP, HS TROP, BNP #### [address] Erythrocyte distribution width (RBC) [Ratio] 14.0 % Normal 12.0-14.[address] [facility] Comment on above: Performed By: #### C BC, CMP, HS TROP, BNP #### [address] Hematocrit (Bld) [Volume fraction] 46.7 % Normal 38.8-50.[address] [facility] Comment on above: Performed By: #### C BC, CMP, HS TROP, BNP #### [address] Hemoglobin (Bld) [Mass/Vol] 15.3 g/dL Normal 13.0-17.[address] [facility] Comment on above: Performed By: #### C BC, CMP, HS TROP, BNP #### [address] Lymphocytes (Bld) [#/Vol] 1.1 10*3/uL Normal 1.00-4.[address] [facility] Comment on above: Performed By: #### C BC, CMP, HS TROP, BNP #### [address] Lymphocytes/100 WBC (Bld) 29.0 % Normal . [facility] Comment on above: Performed By: #### C BC, CMP, HS TROP, BNP #### [address] MCH (RBC) [Entitic mass] 29.4 pg Normal 27.5-35.[address] [facility] Comment on above: Performed By: #### C BC, CMP, HS TROP, BNP #### [address] MCV (RBC) [Entitic vol] 89.6 fL Normal 83.5-[address] [facility] Comment on above: Performed By: #### C BC, CMP, HS TROP, BNP #### [address] Mean Corpuscular HGB Conc 32.8 g/dL Normal 32.5-35.[address] [facility] Comment on above: Performed By: #### C BC, CMP, HS TROP, BNP #### [place] [address] [place] Monocytes (Bld) [#/Vol] 0.8 10*3/uL Normal 0.0-0.[address] [facility] Comment on above: Performed By: #### C BC, CMP, HS TROP, BNP #### [address] Monocytes/100 WBC (Bld) 20.67 % High 0.00-20.[address] [facility] Comment on above: Result Comment: For adults in ED, MDW > 20.0 may be associated with a higher risk of sepsis during the first 12 hrs of hospital admission Performed By: #### C BC, CMP, HS TROP, BNP #### [facility] [address] Monocytes/100 WBC (Bld) 20.9 % Normal . [facility] Comment on above: Performed By: #### C BC, CMP, HS TROP, BNP #### [facility] [address] Neutrophils (Bld) [#/Vol] 1.8 10*3/uL Normal 1.8-7.[address] [facility] Comment on above: Performed By: #### C BC, CMP, HS TROP, BNP #### [address] Neutrophils/100 WBC (Bld) 48.6 % Normal . [facility] Comment on above: Performed By: #### C BC, CMP, HS TROP, BNP #### [address] NRBC% 0.2 /100{WBC} Normal 0-0.[address] [facility] Comment on above: Performed By: #### C BC, CMP, HS TROP, BNP #### [address] Platelet mean volume (Bld) [Entitic vol] 8.5 fL Normal 6.6-10.[address] [facility] Comment on above: Performed By: #### C BC, CMP, HS TROP, BNP #### [place] [address] [place] Platelets (Bld) [#/Vol] 197 10*3/uL Normal 150-[address] [facility] Comment on above: Performed By: #### C BC, CMP, HS TROP, BNP #### [place] [address] [place] RBC (Bld) [#/Vol] 5.21 10*6/uL Normal 3.90-5.60 [facility] Comment on above: Performed By: #### C BC, CMP, HS TROP, BNP #### [address] WBC (Bld) [#/Vol] 3.7 10*3/uL Low 4.1-10.5 [facility] Comment on above: Performed By: #### C BC, CMP, HS TROP, BNP #### [address] Comprehensive Metabolic Pane rigo 03-11-2022 Albumin [Mass/Vol] 4.1 g/dL Normal 3.2-5.5 [facility] Comment on above: Performed By: #### C BC, CMP, HS TROP, BNP #### [address] Albumin/Globulin [Mass ratio] 1.5 {ratio} Normal [facility] Comment on above: Performed By: #### C BC, CMP, HS TROP, BNP #### [address] ALP [Catalytic activity/Vol] 79 U/L Normal 32-[address] [facility] Comment on above: Performed By: #### C BC, CMP, HS TROP, BNP #### [address] ALT [Catalytic activity/Vol] 23 U/L Normal 10-[address] [facility] Comment on above: Performed By: #### C BC, CMP, HS TROP, BNP #### [address] Anion gap [Moles/Vol] 13.7 mmol/L Normal 6.0-15.0 [facility] Comment on above: Performed By: #### C BC, CMP, HS TROP, BNP #### [address] AST [Catalytic activity/Vol] 32 U/L Normal 10-[address] [facility] Comment on above: Performed By: #### C BC, CMP, HS TROP, BNP #### [address] Bilirubin [Mass/Vol] 0.6 mg/dL Normal 0.3-1.2 [facility] Comment on above: Performed By: #### C BC, CMP, HS TROP, BNP #### [facility] [address] Calcium [Mass/Vol] 9.2 mg/dL Normal 8.2-10.2 [facility] Comment on above: Performed By: #### C BC, CMP, HS TROP, BNP #### [facility] [address] Chloride [Moles/Vol] 98 mmol/L Normal 95-114 [facility] Comment on above: Performed By: #### C BC, CMP, HS TROP, BNP #### [facility] [address] CO2 [Moles/Vol] 29.0 mmol/L Normal 22.0-30.0 [facility] Comment on above: Performed By: #### C BC, CMP, HS TROP, BNP #### [facility] [address] Creatinine [Mass/Vol] 0.86 mg/dL Normal 0.64-1.27 [facility] Comment on above: Performed By: #### C BC, CMP, HS TROP, BNP #### [address] Creatinine Clr Calc Pharmacy 91.63 [facility] Comment on above: Result Comment: PERF ORMED BY: [place] [address] PATHOLOGIST MARINE PAINTER EYAD HOWARD M.D. Performed By: #### C BC, CMP, HS TROP, BNP #### [facility] [address] [place] [address] Estimated GFR ( Jessica > [address] [facility] Comment on above: Result Comment: GFR estimated reference range: According to KDOQI guidelines, <60 ml/min/1.73m2 is sufficient to diagnose a patient with chronic kidney disease. Performed By: #### C BC, CMP, HS TROP, BNP #### [facility] [address] Estimated GFR (Non- Am > [address] [facility] Comment on above: Performed By: #### C BC, CMP, HS TROP, BNP #### [facility] [address] Globulin (S) [Mass/Vol] 2.8 g/dL Normal [facility] Comment on above: Performed By: #### C BC, CMP, HS TROP, BNP #### [facility] [address] Glucose [Mass/Vol] 91 mg/dL Normal 70-100 [facility] Comment on above: Result Comment: [place] Glucose Reference Range is dependent on time and content of last meal. Glucose of more than 200 mg/dL in a nonstressed, ambulatory subject supports the diagnosis of Diabetes Mellitus. ADA recommended reference range Performed By: #### C BC, CMP, HS TROP, BNP #### [facility] [address] Potassium [Moles/Vol] 3.7 mmol/L Normal 3.5-5.1 [facility] Comment on above: Performed By: #### C BC, CMP, HS TROP, BNP #### [facility] [address] Protein [Mass/Vol] 6.9 g/dL Normal 6.1-7.9 [facility] Comment on above: Performed By: #### C BC, CMP, HS TROP, BNP #### [facility] [address] [place] [address] [place] Sodium [Moles/Vol] 137 mmol/L Normal 136-146 [facility] Comment on above: Performed By: #### C BC, CMP, HS TROP, BNP #### [facility] [address] Urea nitrogen [Mass/Vol] 10 mg/dL Normal 9-[address] [facility] Comment on above: Performed By: #### C BC, CMP, HS TROP, BNP #### [facility] [address] [place] [address] Creatinine and Glomerular fi ltration rate.predicted panel (S/P/Bld)Ordered By: Yo Blood on 03-11-2022 Creatinine [Mass/Vol] 0.86 mg/dL 0.64-1.27 [facility] ECG 12 lead ECGon 03-11-2022 ECG 12 lead ECG [facility] [address] [place] [id number] Electrocardiograph Report Signed Patient: Fredrick Stroud MR#: [id number] : 1950 Acct:[id number] Age/Sex: 71 / M ADM Date: 03/11/22 [...] voltage QRS Confirmed by Yo BLOOD DO ([id number]) on 03/11/2022 9:03:33 PM Referred By: Electronically Signed By:Yo BLOOD DO Transcribed By: MUS Signed By Yo Blood DO 0 03/11/222102 Normal [facility] ECG 12 lead ECG [facility] [address] [place] [id number] Electrocardiograph Report Signed Patient: Fredrick Stroud MR#: [id number] : 1950 Acct:[id number] Age/Sex: 71 / M ADM Date: 03/11/22 [...] voltage QRS Confirmed by Yo BLOOD DO ([id number]) on 03/11/2022 7:52:28 PM Referred By: Electronically Signed By:Yo BLOOD DO Transcribed By: MUS Signed By Yo Blood DO 0 03/11/221951 Normal [facility] Eosinophils Auto (Bld) [#/Vo l]Ordered By: Yo Blood on 03-11-2022 Eosinophils (Bld) [#/Vol] 0.0 10*3/uL 0.0-0.[address] [facility] Eosinophils/100 WBC Auto (Bl d)Ordered By: Yo Blood on 03-11-2022 Eosinophils/100 WBC (Bld) 0.4 % . [facility] Erythrocyte distribution wid th Auto (RBC) [Ratio]Ordered By: Yo Blood on 03-11-2022 Erythrocyte distribution width (RBC) [Ratio] 14.0 % 12.0-14.[address] [facility] Estimated glomerular filtrat ion rate (GFR) non- AmericanOrdered By: Yo Blood on 03-11-2022 GFR/1.73 sq M.predicted among non-blacks MDRD (S/P/Bld) [Vol rate/Area] > 60 mL/Min [facility] Globulin Calc (S) [Mass/Vol] Ordered By: Yo Blood on 03-11-2022 Globulin (S) [Mass/Vol] 2.8 g/dL [facility] Hematocrit Auto (Bld) [Volum e fraction]Ordered By: Yo Blood on 03-11-2022 Hematocrit (Bld) [Volume fraction] 46.7 % 38.8-50.[address] [facility] Hemoglobin [Mass/volume] in BloodOrdered By: Yo Blood on 03-11-2022 Hemoglobin (Bld) [Mass/Vol] 15.3 g/dL 13.0-17.[address] [facility] Laboratory - Chemistry and C hemistry - challengeOrdered By: Yo Blood on 03-11-2022 Natriuretic peptide B (Bld) [Mass/Vol] 101.0 pg/mL 5-[address] [facility] Leukocytes [#/volume] correc vlad for nucleated erythrocytes in Blood by Automated counOrdered By: Yo Blood on 03-11-2022 WBC corrected for nucl RBC Auto (Bld) [#/Vol] 3.7 10*3/uL 4.1-10.[address] [facility] Lymphocytes Auto (Bld) [#/Vo l]Ordered By: Yo Blood on 03-11-2022 Lymphocytes (Bld) [#/Vol] 1.1 10*3/uL 1.00-4.[address] [facility] Lymphocytes/100 WBC Auto (Bl d)Ordered By: Yo Blood on 03-11-2022 Lymphocytes/100 WBC (Bld) 29.0 % . [facility] MCH Auto (RBC) [Entitic mass ]Ordered By: Yo Blood on 03-11-2022 MCH (RBC) [Entitic mass] 29.4 pg 27.5-35.[address] [facility] MCHC Auto (RBC) [Mass/Vol]Or dered By: Yo Blood on 03-11-2022 MCHC (RBC) [Mass/Vol] 32.8 g/dL 32.5-35.6 [facility] MCV Auto (RBC) [Entitic vol] Ordered By: Yo Blood on 03-11-2022 MCV (RBC) [Entitic vol] 89.6 fL 83.5-[address] [facility] Monocyte distribution width [Entitic volume] in Blood by AutomatedOrdered By: Yo Blood on 03-11-2022 Monocyte distribution width Auto (Bld) [Entitic vol] 20.67 % 0.00-20.[address] [facility] Comment on above: For adults in ED, MD W > 20.0 may be associated with a higher risk of sepsis during the first 12 hrs of hospital admission Monocytes Auto (Bld) [#/Vol] Ordered By: Yo Blood on 03-11-2022 Monocytes (Bld) [#/Vol] 0.8 10*3/uL 0.0-0.[address] [facility] Monocytes/100 WBC Auto (Bld) Ordered By: Yo Blood on 03-11-2022 Monocytes/100 WBC (Bld) 20.9 % . [facility] Neutrophils Auto (Bld) [#/Vo l]Ordered By: Yo Blood on 03-11-2022 Neutrophils (Bld) [#/Vol] 1.8 10*3/uL 1.8-7.[address] [facility] Neutrophils/100 WBC Auto (Bl d)Ordered By: Yo Blood on 03-11-2022 Neutrophils/100 WBC (Bld) 48.6 % . [facility] No Panel InformationOrdered By: Yo Blood on 03-11-2022 SARS Antigen (LFIA) [facility] Estimated GFR () > 60 mL/Min [facility] Comment on above: GFR estimated refere nce range: According to KDOQI guidelines, <60 ml/min/1.73m2 is sufficient to diagnose a patient with chronic kidney disease. Pharmacy Creatinine Clearance (Chem 91.[address] [facility] Nucleated erythrocytes [Pres ence] in Blood by Automated countOrdered By: Yo Blood on 03-11-2022 Nucleated RBC Auto Ql (Bld) 0.2 /100{WBC} 0-0.[address] [facility] Platelet mean volume Auto (B ld) [Entitic vol]Ordered By: Yo Blood on 03-11-2022 Platelet mean volume (Bld) [Entitic vol] 8.5 fL 6.6-10.[address] [facility] Platelets Auto (Bld) [#/Vol] Ordered By: Yo Blood on 03-11-2022 Platelets (Bld) [#/Vol] 197 10*3/uL 150-[address] [facility] Protein [Mass/volume] in Ser um or PlasmaOrdered By: Yo Blood on 03-11-2022 Protein [Mass/Vol] 6.9 g/dL 6.1-7.9 [facility] RBC Auto (Bld) [#/Vol]Ordere d By: Yo Blood on 03-11-2022 RBC (Bld) [#/Vol] 5.21 10*6/uL 3.90-5.60 [facility] Serum or plasma alanine sullivan otransferase measurement without P-5'-P (enzymatic activiOrdered By: Yo Blood on 03-11-2022 ALT No additional P-5'-P [Catalytic activity/Vol] 23 U/L 10-[address] [facility] Serum or plasma albumin/glob ulin mass ratioOrdered By: Yo Blood on 03-11-2022 Albumin/Globulin [Mass ratio] 1.5 {ratio} [facility] Serum or plasma alkaline faviola sphatase measurement (enzymatic activity/volume)Ordered By: Yo Blood on 03-11-2022 ALP [Catalytic activity/Vol] 79 U/L 32-[address] [facility] Serum or plasma anion gap de terminationOrdered By: Yo Blood on 03-11-2022 Anion gap [Moles/Vol] 13.7 mmol/L 6.0-15.0 [facility] Serum or plasma aspartate am inotransferase measurement (enzymatic activity/volume)Ordered By: Yo Blood on 03-11-2022 AST [Catalytic activity/Vol] 32 U/L 10-[address] [facility] Serum or plasma calcium echo urement (mass/volume)Ordered By: Yo Blood on 03-11-2022 Calcium [Mass/Vol] 9.2 mg/dL 8.2-10.2 [facility] Serum or plasma chloride tessie surement (moles/volume)Ordered By: Yo Blood on 03-11-2022 Chloride [Moles/Vol] 98 mmol/L 95-114 [facility] Serum or plasma glucose echo urement (mass/volume)Ordered By: Yo Blood on 03-11-2022 Glucose [Mass/Vol] 91 mg/dL 70-100 [facility] Comment on above: ADA recommended refe rence rangeRandom Glucose Reference Range is dependent on time and content of last meal. Glucose of more than 200 mg/dL in a nonstressed, ambulatory subject supports the diagnosis of Diabetes Mellitus. Serum or plasma potassium me asurement (moles/volume)Ordered By: Yo Blood on 03-11-2022 Potassium [Moles/Vol] 3.7 mmol/L 3.5-5.1 [facility] Serum or plasma sodium measu rement (moles/volume)Ordered By: Yo Blood on 03-11-2022 Sodium [Moles/Vol] 137 mmol/L 136-146 [facility] Serum or plasma total biliru bin measurement (mass/volume)Ordered By: Yo Blood on 03-11-2022 Bilirubin [Mass/Vol] 0.6 mg/dL 0.3-1.2 [facility] Serum or plasma total carbon dioxide measurement (moles/volume)Ordered By: Yo Blood on 03-11-2022 CO2 [Moles/Vol] 29.0 mmol/L 22.0-30.0 [facility] Serum or plasma urea nitroge n measurement (mass/volume)Ordered By: Yo Blood on 03-11-2022 Urea nitrogen [Mass/Vol] 10 mg/dL 11-[address] [facility] Gertrude Ag Negativeon 03-11-19 Gertrude Ag Negative Negative Normal Negative [facility] Comment on above: Result Comment: This is a duplicate Gertrude SARS Antigen (OLY) result to be used for statistical tracking purpose only. PERFORMED BY: [place] [address] PATHOLOGIST MARINE PAINTER EYAD HOWARD M.D. Performed By: #### C OVID-19 GERTRUDE, SOFIANEG #### [facility] [address] [place] [address] [place] Troponin I High Sensitivityo n 03-11-2022 Troponin I High Sensitivity 9 pg/mL Normal 0-[address] [facility] Comment on above: Result Comment: PERF ORMED BY: [place] [address] PATHOLOGIST MARINE PAINTER EYAD HOWARD M.D. Performed By: #### C BC, CMP, HS TROP, BNP #### [facility] [address] [place] [address] Troponin I.cardiac [Mass/vol ume] in Serum or Plasma by High sensitivity methodOrdered By: Yo Blood on 03-11-2022 Troponin I.cardiac High sensitivity method [Mass/Vol] 9 pg/mL 0-[address] [facility] WBC Auto (Bld) [#/Vol]Ordere d By: Yo Blood on 03-11-2022 WBC (Bld) [#/Vol] 3.7 10*3/uL 4.1-10.5 [facility] XR chest 2V*on 03-11-2022 XR chest 2V* [facility] Main [address] [address] XRay Report Signed Patient: Fredrick Stroud MR#: [id number] 427 : 1950 Acct:[id number] Age/Sex: 71 / M ADM Date: 03/11/22 [...] Ga Dorsey M.D.03/11/2022 1:42 PM Dictation Location: [place] [address] Transcribed By: [facility] 03/11/22 1342 Dictated By: Ga Dorsey II, MD 03/11/22 1339 Signed By: 03/11/22 [address] [facility] XR hip LT min 2V(w/wo pelvis )*on 09-26-2021 XR hip LT min 2V(w/wo pelvis)* [facility] Main [address] [address] XRay Report Signed Patient: Fredrick Stroud MR#: [id number] 427 : 1950 Acct:[id number] Age/Sex: 70 / M ADM Date: 09/26/21 Loc: [facility]XD Room: Type: [facility] CLI Attending Dr: Shahriar Dhillon II, MD [...] Ariana Tanner M.D.09/26/2021 3:27 PM Dictation Location: [place] [address] Transcribed By: [facility] 09/26/21 152 Dictated By: Ariana Tanner MD 09/26/21 1526 Signed By: 09/26/21 [address] [facility] XR hip LT min 2V(w/wo pelvis )*on 08-15-2021 XR hip LT min 2V(w/wo pelvis)* [facility] Main [place] [address] [place] [address] XRay Report Signed Patient: Fredrick Stroud MR#: [id number] 427 : 1950 Acct:[id number] Age/Sex: 70 / M ADM Date: 08/15/21 Loc: [facility] Room: Type: [facility] Attending Dr: Shahriar Dhillon II, MD Copies [...] 08/15/21 1439 Signed By: 08/15/21 [address] [facility] XR hip LT min 2V(w/wo pelvis)* [facility] [employer] Other XR hip LT min 2V(w/wo pelvis)* [facility] Main [place] [employer] Other XR hip LT min 2V(w/wo pelvis)* [address] [place] [address] [employer] Other XR hip LT min 2V(w/wo pelvis)* [place] [address] [employer] Other XR hip LT min 2V(w/wo pelvis)* XRay Report [employer] Other XR hip LT min 2V(w/wo pelvis)* Signed [employer] Other XR hip LT min 2V(w/wo pelvis)* Patient: Fredrick Stroud MR#: [id number] [employer] Other XR hip LT min 2V(w/wo pelvis)* 427 [employer] Other XR hip LT min 2V(w/wo pelvis)* : 1950 Acct:[id number] [employer] Other XR hip LT min 2V(w/wo pelvis)* Age/Sex: 70 / M ADM Date: 08/15/21 [employer] Other XR hip LT min 2V(w/wo pelvis)* Loc: SOXD Room: Type: [facility] [employer] Other XR hip LT min 2V(w/wo pelvis)* Attending Dr: Shahriar Dhillon II, MD [employer] Other XR hip LT min 2V(w/wo pelvis)* Copies to: Shahriar Dhillon MD [employer] Other XR hip LT min 2V(w/wo pelvis)* Ordering Provider: Shahriar Dhillon MD [employer] Other XR hip LT min 2V(w/wo pelvis)* Date of Service: 08/15/21 [employer] Other XR hip LT min 2V(w/wo pelvis)* XR/XR hip LT min 2V(w/wo pelvis)*: Aftercare following joint replacement [employer] Other XR hip LT min 2V(w/wo pelvis)* surgery [employer] Other XR hip LT min 2V(w/wo pelvis)* LEFT HIP - 2 views: 1 view pelvis [employer] Other XR hip LT min 2V(w/wo pelvis)* CLINICAL HISTORY: Follow-up left GEOVANI [employer] Other XR hip LT min 2V(w/wo pelvis)* COMPARISON: Hip series 07/02/2021 [employer] Other XR hip LT min 2V(w/wo pelvis)* FINDINGS: 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 Prostate radiation [employer] Other XR hip LT min 2V(w/wo pelvis)* seeds. Mild degenerative changes right hip. [employer] Other XR hip LT min 2V(w/wo pelvis)* XR/XR hip LT min 2V(w/wo pelvis)* [employer] Other XR hip LT min 2V(w/wo pelvis)* IMPRESSION: [employer] Other XR hip LT min 2V(w/wo pelvis)* NO EVIDENCE OF HARDWARE COMPLICATION. [employer] Other XR hip LT min 2V(w/wo pelvis)* Impression dictated by: Dandy Stevenson Jr., D.ODre08/15/2021 2:40 PM [employer] Other XR hip LT min 2V(w/wo pelvis)* Dictation Location: [facility]13 [employer] Other XR hip LT min 2V(w/wo pelvis)* Transcribed By: PWS 08/15/21 1440 [employer] Other XR hip LT min 2V(w/wo pelvis)* Dictated By: Dandy Stevenson Jr, DO 08/15/21 1439 [employer] Other XR hip LT min 2V(w/wo pelvis)* Signed By: [employer] Other XR hip LT min 2V(w/wo pelvis)* 08/15/21 1440 [employer] Other Basic Metabolic Panelon 05-1 Calcium [Mass/Vol] 8.6 mg/dL Normal 8.2-10.2 [facility] Comment on above: Performed By: #### C BC, BMP #### [facility] [address] [place] [address] [place] Chloride [Moles/Vol] 102 mmol/L Normal 95-114 [facility] Comment on above: Performed By: #### C BC, BMP #### [facility] [address] CO2 [Moles/Vol] 25.5 mmol/L Normal 22.0-30.0 [facility] Comment on above: Performed By: #### C BC, BMP #### [facility] [address] [place] [id number] [place] Creatinine [Mass/Vol] 0.96 mg/dL Normal 0.64-1.27 [facility] Comment on above: Performed By: #### C BC, BMP #### [facility] [address] [place] [id number] [place] Creatinine Clr Calc Pharmacy 81.[address] [facility] Comment on above: Result Comment: PERF ORMED BY: [facility] [address] [place] [address] PATHOLOGIST MARINE PAINTER EYAD HOWARD M.D. Performed By: #### C BC, BMP #### [address] Estimated GFR ( Jessica > 60 [facility] Comment on above: Result Comment: GFR estimated reference range: According to KDOQI guidelines, <60 ml/min/1.73m2 is sufficient to diagnose a patient with chronic kidney disease. Performed By: #### C BC, BMP #### [address] Estimated GFR (Non- Am > 60 [facility] Comment on above: Performed By: #### C BC, BMP #### [address] Glucose [Mass/Vol] 167 mg/dL High 70-100 [facility] Comment on above: Result Comment: [place] Glucose Reference Range is dependent on time and content of last meal. Glucose of more than 200 mg/dL in a nonstressed, ambulatory subject supports the diagnosis of Diabetes Mellitus. ADA recommended reference range Performed By: #### C BC, BMP #### [address] Potassium [Moles/Vol] 4.4 mmol/L Normal 3.5-5.1 [facility] Comment on above: Performed By: #### C BC, BMP #### [address] Sodium [Moles/Vol] 135 mmol/L Low 136-146 [facility] Comment on above: Performed By: #### C BC, BMP #### [address] Urea nitrogen [Mass/Vol] 18 mg/dL Normal 9-[address] [facility] Comment on above: Performed By: #### C BC, BMP #### [address] Complete Blood Count Auto Di ffon 07-03-2021 Basophils (Bld) [#/Vol] 0.0 10*3/uL Normal 0.0-0.[address] [facility] Comment on above: Result Comment: PERF ORMED BY: [place] [address] PATHOLOGIST MARINE PAINTER EYAD HOWARD M.D. Performed By: #### C BC, BMP #### [address] Basophils/100 WBC (Bld) 0.3 % Normal . [facility] Comment on above: Performed By: #### C BC, BMP #### [address] Eosinophils (Bld) [#/Vol] 0.0 10*3/uL Normal 0.0-0.[address] [facility] Comment on above: Performed By: #### C BC, BMP #### [address] Eosinophils/100 WBC (Bld) 0.0 % Normal . [facility] Comment on above: Performed By: #### C BC, BMP #### [address] Erythrocyte distribution width (RBC) [Ratio] 14.2 % Normal 12.0-14.[address] [facility] Comment on above: Performed By: #### C BC, BMP #### [address] Hematocrit (Bld) [Volume fraction] 32.9 % Low 38.8-50.[address] [facility] Comment on above: Performed By: #### C BC, BMP #### [place] [address] [place] Hemoglobin (Bld) [Mass/Vol] 11.2 g/dL Low 13.0-17.[address] [facility] Comment on above: Performed By: #### C BC, BMP #### [place] [address] [place] Lymphocytes (Bld) [#/Vol] 0.6 10*3/uL Low 1.00-4.[address] [facility] Comment on above: Performed By: #### C BC, BMP #### [facility] [address] Lymphocytes/100 WBC (Bld) 4.7 % Normal . [facility] Comment on above: Performed By: #### C BC, BMP #### [facility] [address] MCH (RBC) [Entitic mass] 30.1 pg Normal 27.5-35.[address] [facility] Comment on above: Performed By: #### C BC, BMP #### [facility] [address] MCV (RBC) [Entitic vol] 88.7 fL Normal 83.5-[address] [facility] Comment on above: Performed By: #### C BC, BMP #### [address] Mean Corpuscular HGB Conc 33.9 g/dL Normal 32.5-35.[address] [facility] Comment on above: Performed By: #### C BC, BMP #### [place] [address] [place] Monocytes (Bld) [#/Vol] 1.0 10*3/uL High 0.0-0.[address] [facility] Comment on above: Performed By: #### C BC, BMP #### [place] [address] [place] Monocytes/100 WBC (Bld) 8.3 % Normal . [facility] Comment on above: Performed By: #### C BC, BMP #### [place] [address] [place] Neutrophils (Bld) [#/Vol] 10.9 10*3/uL High 1.8-7.[address] [facility] Comment on above: Performed By: #### C BC, BMP #### [address] Neutrophils/100 WBC (Bld) 86.7 % Normal . [facility] Comment on above: Performed By: #### C BC, BMP #### [place] [address] [place] Nucleated RBC/100 WBC (Bld) [Ratio] 0.0 % Normal 0-0.[address] [facility] Comment on above: Performed By: #### C AKHIL, BMP #### [facility] [address] Platelet mean volume (Bld) [Entitic vol] 8.4 fL Normal 6.6-10.[address] [facility] Comment on above: Performed By: #### C AKHIL, BMP #### [facility] [address] Platelets (Bld) [#/Vol] 210 10*3/uL Normal 150-[address] [facility] Comment on above: Performed By: #### C AKHIL, BMP #### [address] RBC (Bld) [#/Vol] 3.71 10*6/uL Low 3.90-5.60 [facility] Comment on above: Performed By: #### C AKHIL, BMP #### [address] WBC (Bld) [#/Vol] 12.5 10*3/uL High 4.5-11.0 [facility] Comment on above: Performed By: #### C AKHIL, BMP #### [address] ECG 12 lead ECGon 07-02-2021 ECG 12 lead ECG [facility] Main [place] [address] [place] [address] Electrocardiograph Report Signed Patient: Fredrick Stroud MR#: [id number] 427 : 1950 Acct:[id number] Age/Sex: 70 / M ADM Date: 07/02/21 Loc: [place] Room: Type: [facility] Attending Dr: Shahriar Dhillon II, [...] Signed By Moreno Rosario DO 07/02 1306 [facility] [place] 07-02-2021 L - -------- Specimen: [id number] Received: 07/02/21 Status: LORETTA Solis Num: [id number] Spec Type: Surgical Subm Dr: Shahriar Dhillon MD Tissues: A Femoral Head - Other than Fracture (L HIP) Procedures: LEONARD Richardson, Gross/Micro L3, Decal -------- Patient Age/Sex Location Account Attending Physician -------- Fredrick Stroud 70/M 4N [id number] Shahriar Dhillon MD -------- SPEC NUM: [id number] RECD: 07/02/21 STATUS: LORETTA SOLIS NUM: [id number] MILY: 07/02/21 DR: Shahriar Dhillon MD ENTERED: 07/02/21 [facility] DR: LEBRON TYPE: Surgical DEPT: S [...] bone fragments and scant soft tissue. A service liaison representative section of bone, following formalin fixation and decalcification is submitted in cassette A 1. (KULDEEP/NORA) -------- Specimen: [id number] Received: 07/02/21 Status: LORETTA Solis Num: [id number] Spec Type: Surgical Subm Dr: Shahriar Dhillon MD Tissues: A Femoral Head - Other than Fracture (L HIP) Procedures: HE Stain, Gross/Micro L3, Decal -------- Patient: Fredrick Stroud Madhu [id number] (Continued) -------- Specimen: Received: 07/02/21 (Continued) Signed (signature on file) Kaycee Curry MD 07/04/21 1625 -------- Specimen: Received: 07/02/21 Status: LORETTA Solis Num: [id number] Spec Type: Surgical Subm Dr: Shahriar Dhillon MD Tissues: A Femoral Head - Other than Fracture (L HIP) Procedures: HE Stain, Gross/Micro L3, Decal -------- Patient: Fredrick Stroud [id number] (Continued) -------- Specimen: [id number] Received: 07/02/21 (Continued) Microscopic Description One glass slide with H E stained material has been examined. The microscopic findings support the above pathologic diagnosis. CPT Codes 35196, 09661 -------- -------- Specimen: [id number] Received: 07/02/21 Status: LORETTA Solis Num: [id number] Spec Type: Surgical Subm Dr: Shahriar Dhillon MD Tissues: A Femoral Head - Other than Fracture (L HIP) Procedures: HE Stain, Gross/Micro L3, Decal -------- Patient: Fredrick Stroud [id number] (Continued) -------- Signed (signature on file) Kaycee Curry MD 07/04/[address] [facility] XR hip LT 1Von 07-02-2021 XR hip LT 1V [place] [address] XRay Report Signed Patient: Fredrick Stroud MR#: [id number] 427 : 1950 Acct:[id number] Age/Sex: 70 / M ADM Date: 07/02/21 Loc: [place] Room: Type: [facility] Attending Dr: Shahriar Dhillon II, MD [...] Stevenson Jr, DO 07/02/21922 Signed By: 07/02/21925 [facility] XR low pelvis w/LT x-table h ipon 07-02-2021 XR low pelvis w/LT x-table hip [facility] [place] [address] XRay Report Signed Patient: Fredrick Stroud MR#: [id number] 427 : 1950 Acct:[id number] Age/Sex: 70 / M ADM Date: 07/02/21 Loc: [place] Room: Type: [facility] Attending Dr: Shahriar Dhillon II, MD [...] Tanner MD 07/02/21 120 Signed By: 07/02/211204 [facility] SARS-CoV-2 (COVID-19) RNA FABI+probe Ql (Unsp spec) Negative Normal Negative 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. This test has not been [...] is terminated or revoked sooner. PERFORMED BY: [place] [address] PATHOLOGIST MARINE PAINTER EYAD HOWARD M.D. Performed By: #### C BC, CMP, HS TROP, BNP #### [address] Basic Metabolic Panelon 05-26 Calcium [Mass/Vol] 9.4 mg/dL Normal 8.2-10.2 [facility] Comment on above: Result Comment: PERF ORMED BY: [place] [address] PATHOLOGIST MARINE PAINTER EYAD HOWARD M.D. Performed By: #### C OVID-19 GERTRUDE, SOFIANEG #### [place] [address] [place] Chloride [Moles/Vol] 103 mmol/L Normal 95-114 [facility] Comment on above: Performed By: #### C OVID-19 GERTRUDE, SOFIANEG #### [place] [address] [place] CO2 [Moles/Vol] 26.4 mmol/L Normal 22.0-30.0 [facility] Comment on above: Performed By: #### C OVID-19 GERTRUDE, SOFIANEG #### [facility] [address] [place] [address] Creatinine [Mass/Vol] 0.89 mg/dL Normal 0.64-1.27 [facility] Comment on above: Performed By: #### C OVID-19 GERTRUDE, SOFIANEG #### [place] [address] [place] Estimated GFR ( Jessica > 60 [facility] Comment on above: Result Comment: GFR estimated reference range: According to KDOQI guidelines, <60 ml/min/1.73m2 is sufficient to diagnose a patient with chronic kidney disease. Performed By: #### C OVID-19 GERTRUDE, SOFIANEG #### [address] Estimated GFR (Non- Am > 60 [facility] Comment on above: Performed By: #### C OVID-19 GERTRUDE, SOFIANEG #### [address] Glucose [Mass/Vol] 101 mg/dL High 70-100 [facility] Comment on above: Result Comment: [place] om Glucose Reference Range is dependent on time and content of last meal. Glucose of more than 200 mg/dL in a nonstressed, ambulatory subject supports the diagnosis of Diabetes Mellitus. ADA recommended reference range Performed By: #### C OVID-19 GERTRUDE, SOFIANEG #### [address] Potassium [Moles/Vol] 4.4 mmol/L Normal 3.5-5.1 [facility] Comment on above: Performed By: #### C OVID-19 GERTRUDE, SOFIANEG #### [address] Sodium [Moles/Vol] 139 mmol/L Normal 136-146 [facility] Comment on above: Performed By: #### C OVID-19 GERTRUDE, SOFIANEG #### [address] [place] [address] [place] Urea nitrogen [Mass/Vol] 23 mg/dL Normal 9-[address] [facility] Comment on above: Performed By: #### C OVID-19 GERTRUDE, SOFIANEG #### [facility] [address] [place] [address] Complete Blood Count Auto Di ffon 06-18-2021 Basophils (Bld) [#/Vol] 0.0 10*3/uL Normal 0.0-0.[address] [facility] Comment on above: Result Comment: PERF ORMED BY: [place] [address] PATHOLOGIST MARINE PAINTER EYAD HOWARD M.D. Performed By: #### C OVID-19 GERTRUDE, SOFIANEG #### [address] Basophils/100 WBC (Bld) 0.9 % Normal . [facility] Comment on above: Performed By: #### C OVID-19 GERTRUDE, SOFIANEG #### [facility] [address] [place] [address] Eosinophils (Bld) [#/Vol] 0.1 10*3/uL Normal 0.0-0.[address] [facility] Comment on above: Performed By: #### C OVID-19 GERTRUDE, SOFIANEG #### [address] Eosinophils/100 WBC (Bld) 1.4 % Normal . [facility] Comment on above: Performed By: #### C OVID-19 GERTRUDE, SOFIANEG #### [facility] [address] [place] [address] Erythrocyte distribution width (RBC) [Ratio] 14.0 % Normal 12.0-14.[address] [facility] Comment on above: Performed By: #### C OVID-19 GERTRUDE, SOFIANEG #### [facility] [address] [place] [address] Hematocrit (Bld) [Volume fraction] 41.8 % Normal 38.8-50.[address] [facility] Comment on above: Performed By: #### C OVID-19 GERTRUDE, SOFIANEG #### [address] Hemoglobin (Bld) [Mass/Vol] 14.2 g/dL Normal 13.0-17.[address] [facility] Comment on above: Performed By: #### C OVID-19 GERTRUDE, SOFIANEG #### [address] Lymphocytes (Bld) [#/Vol] 1.1 10*3/uL Normal 1.00-4.[address] [facility] Comment on above: Performed By: #### C OVID-19 GERTRUDE, SOFIANEG #### [address] Lymphocytes/100 WBC (Bld) 22.7 % Normal . [facility] Comment on above: Performed By: #### C OVID-19 GERTRUDE, SOFIANEG #### [address] MCH (RBC) [Entitic mass] 30.4 pg Normal 27.5-35.[address] [facility] Comment on above: Performed By: #### C OVID-19 GERTRUDE, SOFIANEG #### [address] MCV (RBC) [Entitic vol] 89.7 fL Normal 83.5-[address] [facility] Comment on above: Performed By: #### C OVID-19 GERTRUDE, SOFIANEG #### [address] Mean Corpuscular HGB Conc 33.9 g/dL Normal 32.5-35.[address] [facility] Comment on above: Performed By: #### C OVID-19 GERTRUDE, SOFIANEG #### [address] Monocytes (Bld) [#/Vol] 0.5 10*3/uL Normal 0.0-0.[address] [facility] Comment on above: Performed By: #### C OVID-19 GERTRUDE, SOFIANEG #### [facility] [address] [place] [address] [place] Monocytes/100 WBC (Bld) 11.2 % Normal . [facility] Comment on above: Performed By: #### C OVID-19 GERTRUDE, SOFIANEG #### [facility] [address] Neutrophils (Bld) [#/Vol] 3.1 10*3/uL Normal 1.8-7.[address] [facility] Comment on above: Performed By: #### C OVID-19 GERTRUDE, SOFIANEG #### [facility] [address] Neutrophils/100 WBC (Bld) 63.8 % Normal . [facility] Comment on above: Performed By: #### C OVID-19 GERTRUDE, SOFIANEG #### [facility] [address] [place] [address] [place] Nucleated RBC/100 WBC (Bld) [Ratio] 0.1 % Normal 0-0.[address] [facility] Comment on above: Performed By: #### C OVID-19 GERTRUDE, SOFIANEG #### [facility] [address] [place] [address] [place] Platelet mean volume (Bld) [Entitic vol] 8.2 fL Normal 6.6-10.[address] [facility] Comment on above: Performed By: #### C OVID-19 GERTRUDE, SOFIANEG #### [facility] [address] [place] [address] [place] Platelets (Bld) [#/Vol] 243 10*3/uL Normal 150-[address] [facility] Comment on above: Performed By: #### C OVID-19 GERTRUDE, SOFIANEG #### [facility] [address] [place] [address] [place] RBC (Bld) [#/Vol] 4.67 10*6/uL Normal 3.90-5.60 [facility] Comment on above: Performed By: #### C OVID-19 GERTRUDE, SOFIANEG #### [facility] [address] [place] [address] [place] WBC (Bld) [#/Vol] 4.8 10*3/uL Normal 4.5-11.0 [facility] Comment on above: Performed By: #### C OVID-19 WOLFGANG LOREDO #### [facility] [address] [place] [id number] [facility] ECG 12 lead ECGon 06-18-2021 ECG 12 lead ECG [facility] Main [place] [address] [place] [address] Electrocardiograph Report Signed Patient: Fredrick Stroud MR#: [id number] : [id number] Acct:[id number] Age/Sex: 70 / M ADM Date: 06/18/21 Loc: Room: Type: [facility] Attending Dr: Shahriar Dhillon II, [...] Wisam Torre MD 0 06/19/[address] [facility] Fructosamineon 06-18-2021 Fructosamine 217 umol/L Normal 0-[address] [facility] Comment on above: Result Comment: Publ ished reference interval for apparently healthy subjects between age 20 and 60 is 205 - 285 umol/L and in a poorly controlled diabetic population is 228 - 563 umol/L with a mean of 396 umol/L. Performed at: [address] [id number] Learning And Development Coordinator: Benton Caro PhD, Phone: [phone] PERFORMED BY: [place] [address] PATHOLOGIST MARINE PAINTER EYAD HOWARD M.D. Performed By: #### C OVID-19 GERTRUDE, SOFIANEG #### [facility] [address] [place] [address] PST Type and Screenon 2021 ABO and Rh group Nom (Bld) Blood group O Rh(D) positive Normal [facility] Comment on above: Order Comment: Date of Surgery: [id number] Result Comment: PERF ORMED BY: [place] [address] PATHOLOGIST MARINE PAINTER EYAD HOWARD M.D. Urinalysison 06-18-2021 Appearance (U) Clear Normal Clear [facility] Comment on above: Order Comment: Name Collection Type:: Clean-Voided Midstream Performed By: #### C BC, CMP, HS TROP, BNP #### [facility] [address] [place] [address] [place] Bilirubin,Urine Negative Normal Negative [facility] Comment on above: Order Comment: Name Collection Type:: Clean-Voided Midstream Performed By: #### C BC, CMP, HS TROP, BNP #### [facility] [address] [place] [address] [place] Color (U) Yellow Normal Yellow [facility] Comment on above: Order Comment: Name Collection Type:: Clean-Voided Midstream Performed By: #### C BC, CMP, HS TROP, BNP #### [facility] [address] [place] [address] [place] Glucose Ql (U) Normal Normal Normal [facility] Comment on above: Order Comment: Name Collection Type:: Clean-Voided Midstream Performed By: #### C BC, CMP, HS TROP, BNP #### [facility] [address] [place] [address] [place] Ketones Ql (U) Negative Normal Negative [facility] Comment on above: Order Comment: Name Collection Type:: Clean-Voided Midstream Performed By: #### C BC, CMP, HS TROP, BNP #### [address] Leukocyte esterase Test strip Ql (U) Negative Normal Negative [facility] Comment on above: Order Comment: Name Collection Type:: Clean-Voided Midstream Performed By: #### C BC, CMP, HS TROP, BNP #### [address] Nitrite,Urine Negative Normal Negative [facility] Comment on above: Order Comment: Name Collection Type:: Clean-Voided Midstream Performed By: #### C BC, CMP, HS TROP, BNP #### [address] Occult Blood,Urine Negative Normal Negative [facility] Comment on above: Order Comment: Name Collection Type:: Clean-Voided Midstream Result Comment: PERF ORMED BY: [place] [address] PATHOLOGIST MARINE PAINTER EYAD HOWARD M.D. Performed By: #### C BC, CMP, HS TROP, BNP #### [address] pH (U) 7.5 [pH] Normal 5.0-9.[address] [facility] Comment on above: Order Comment: Name Collection Type:: Clean-Voided Midstream Performed By: #### C BC, CMP, HS TROP, BNP #### [address] Protein,Urine Negative Normal Negative [facility] Comment on above: Order Comment: Name Collection Type:: Clean-Voided Midstream Performed By: #### C BC, CMP, HS TROP, BNP #### [address] Specificy [place],Urine 1.023 Normal 1.001-1.[address] [facility] Comment on above: Order Comment: Name Collection Type:: Clean-Voided Midstream Performed By: #### C BC, CMP, HS TROP, BNP #### [address] Urobilinogen,Urine Normal Normal Normal [facility] Comment on above: Order Comment: Name Collection Type:: Clean-Voided Midstream Performed By: #### C BC, CMP, HS TROP, BNP #### [facility] [address] [id number] [facility] Urinalysis - AUTOMATEDon Appearance (U) CLEAR [email or web address] Other Bilirubin Ql (U) Negative [employer] Other Color (U) YELLOW [employer] Other Glucose Ql (U) Negative [email or web address] Other Hemoglobin Ql (U) Negative [employer] Other Ketones Ql (U) Negative [email or web address] Other Leukocyte esterase Test strip Ql (U) Negative [employer] Other Nitrite Ql (U) Negative [email or web address] Other pH (U) 6.0 [pH] [employer] Other Protein Ql (U) Negative [email or web address] Other Specific gravity (U) [Rel density] 1.010 [employer] Other Urobilinogen (U) [Mass/Vol] 0.2 mg/dL [employer] Other Urinalysis - AUTOMATED [employer] Other Vital Signs Date Time Vital Sign Value Performing Clinician Facility 02-25-2023 13:00-0500 Body temperature 98.2 [degF] Vivian Espinoza MD Work Phone: [facility] 02-25-2023 13:00-0500 Diastolic blood pressure 81 mm[Hg] Vivian Espinoza MD Work Phone: [facility] 02-25-2023 13:00-0500 Heart rate 79 /min Vivian Espinoza MD Work Phone: [facility] 02-25-2023 13:00-0500 Respiratory rate 18 /min Vivian Espinoza MD Work Phone: [facility] 02-25-2023 13:00-0500 SaO2% (BldA) [Mass fraction] 97 % Vivian Espinoza MD Work Phone: [facility] 02-25-2023 13:00-0500 Systolic blood pressure 125 mm[Hg] Vivian Espinoza MD Work Phone: [facility] 02-16-2023 22:54-0500 SaO2% (BldA) [Mass fraction] 96.1 % Vivian Espinoza MD Work Phone: [facility] 02-16-2023 03:00-0500 Body height 167.6 cm Vivian Espinoza MD Work Phone: [facility] 02-16-2023 03:00-0500 Body mass index (BMI) [Ratio] 42.52 kg/m2 Vivian Espinoza MD Work Phone: [facility] 02-16-2023 03:00-0500 Body weight 119.5 kg Vivian Espinoza MD Work Phone: [facility] 02-15-2023 20:06-0500 Body temperature 97.52 [degF] Justice Pretty [facility] 02-15-2023 20:06-0500 Diastolic blood pressure 63 mm[Hg] Justice Pretty [facility] 02-15-2023 20:06-0500 Heart rate 70 /min Justice Pretty [facility] 02-15-2023 20:06-0500 Mean blood pressure 76 mm[Hg] Justice Pretty [facility] 02-15-2023 20:06-0500 Respiratory rate 18 /min Justice Pretty [facility] 02-15-2023 20:06-0500 SaO2% (BldA) [Mass fraction] 94 % Justice Sukhwinder [facility] 02-15-2023 20:06-0500 Systolic blood pressure 101 mm[Hg] Justice Sukhwinder [facility] 02-15-2023 20:00-0500 Diastolic blood pressure 74 mm[Hg] Justice Sukhwinder [facility] 02-15-2023 20:00-0500 Heart rate 63 /min Justice Sukhwinder [facility] 02-15-2023 20:00-0500 Hourly Rounding Justice Cuetoe [facility] 02-15-2023 20:00-0500 Promise to Return Justice Cuetoe [facility] 02-15-2023 20:00-0500 SaO2% (BldA) [Mass fraction] 100 % Jusitce Sukhwinder [facility] 02-15-2023 20:00-0500 Systolic blood pressure 112 mm[Hg] Justice Sukhwinder [facility] 02-15-2023 19:57-0500 Diastolic blood pressure 78 mm[Hg] Justice Sukhwinder [facility] 02-15-2023 19:57-0500 Heart rate 101 /min Justice Sukhwinder [facility] 02-15-2023 19:57-0500 Mean blood pressure 90 mm[Hg] Justice Sukhwinder [facility] 02-15-2023 19:57-0500 Respiratory rate 14 /min Justice Sukhwinder [facility] 02-15-2023 19:57-0500 SaO2% (BldA) [Mass fraction] 98 % Justice Sukhwinder [facility] 02-15-2023 19:57-0500 Systolic blood pressure 113 mm[Hg] Justice Sukhwinder [facility] 02-15-2023 19:47-0500 Heart rate 85 /min Justice Sukhwinder [facility] 02-15-2023 19:47-0500 Mean blood pressure 49 mm[Hg] Justice Sukhwinder [facility] 02-15-2023 19:47-0500 Respiratory rate 14 /min Justice Sukhwinder [facility] 02-15-2023 19:34-0500 Blood Pressure Location Justice Sukhwinder [facility] 02-15-2023 19:34-0500 Body temperature 97.52 [degF] Justice Sukhwinder [facility] 02-15-2023 19:34-0500 Heart rate 68 /min Justice Sukhwinder [facility] 02-15-2023 19:19-0500 Heart rate 67 /min Justice Sukhwinder [facility] 02-15-2023 19:00-0500 Hourly Rounding Justice Sukhwinder [facility] 02-15-2023 19:00-0500 Promise to Return Justice Sukhwinder [facility] 02-15-2023 18:45-0500 Body temperature 97.52 [degF] Justice Sukhwinder [facility] 02-15-2023 18:17-0500 Body temperature 97.52 [degF] Justice Sukhwinder [facility] 02-15-2023 18:00-0500 Hourly Rounding Justice Sukhwinder [facility] 02-15-2023 18:00-0500 Promise to Return Justice Sukhwinder [facility] 02-15-2023 16:28-0500 Body temperature 97.88 [degF] Justice Pretty [facility] 08-30-2022 08:53-0400 Body height 167.64 cm Karina Guardadoon Work Phone: [facility] DO Work Phone: 08-30-2022 08:53-0400 Body mass index (BMI) [Ratio] 38.74 kg/m2 Karina Guardadoon Work Phone: [facility] DO Work Phone: 08-30-2022 08:53-0400 Body surface area Derived from formula 2.16 m2 Karina Melgar Work Phone: [facility] DO Work Phone: 08-30-2022 08:53-0400 Body weight 108.86 kg Karina Melgar Work Phone: [facility] DO Work Phone: 08-30-2022 08:53-0400 Diastolic blood pressure 62 mm[Hg] Karina Melgar Work Phone: [facility] DO Work Phone: 08-30-2022 08:53-0400 Heart rate 55 /min Karina Melgar Work Phone: [facility] DO Work Phone: 08-30-2022 08:53-0400 Systolic blood pressure 128 mm[Hg] Karina Melgar Work Phone: [facility] DO Work Phone: 08-13-2022 13:21-0400 Body height 167.64 cm Karina Melgar Work Phone: [facility] DO Work Phone: 08-13-2022 13:21-0400 Body mass index (BMI) [Ratio] 39.87 kg/m2 Karina Lisa Ramón Work Phone: [facility] DO Work Phone: 08-13-2022 13:21-0400 Body surface area Derived from formula 2.19 m2 Karina Lisa Ramón Work Phone: [facility] DO Work Phone: 08-13-2022 13:21-0400 Body weight 112.04 kg Karina Guardadoon Work Phone: [facility] DO Work Phone: 08-13-2022 13:21-0400 Diastolic blood pressure 70 mm[Hg] Karina Guardadoon Work Phone: [facility] DO Work Phone: 08-13-2022 13:21-0400 Heart rate 70 /min Karina Guardadoon Work Phone: [facility] DO Work Phone: 08-13-2022 13:21-0400 Systolic blood pressure 136 mm[Hg] Karina Guardadoon Work Phone: [facility] DO Work Phone: 07-05-2022 09:08-0400 Body height 167.64 cm Karina Guardadoon Work Phone: [facility] 600 DO Work Phone: 07-05-2022 09:08-0400 Body mass index (BMI) [Ratio] 39.54 kg/m2 Karina Guardadoon Work Phone: [facility] DO Work Phone: 07-05-2022 09:08-0400 Body surface area Derived from formula 2.18 m2 Karina Lisa Ramón Work Phone: [facility] 600 DO Work Phone: 07-05-2022 09:08-0400 Body weight 111.13 kg Karina Lisa Ramón Work Phone: [facility] DO Work Phone: 07-05-2022 09:08-0400 Diastolic blood pressure 70 mm[Hg] Karina Lisa Ramón Work Phone: [facility] DO Work Phone: 07-05-2022 09:08-0400 Heart rate 72 /min Karina Lisa Ramón Work Phone: [facility] DO Work Phone: 07-05-2022 09:08-0400 Systolic blood pressure 138 mm[Hg] Karina Lisa Ramón Work Phone: [facility] DO Work Phone: 06-20-2022 16:24-0400 Body height 167.64 cm Karina Lisa Ramón Work Phone: [facility] DO Work Phone: 06-20-2022 16:24-0400 Body mass index (BMI) [Ratio] 40.03 kg/m2 Karina Lisa Ramón Work Phone: [facility] DO Work Phone: 06-20-2022 16:24-0400 Body surface area Derived from formula 2.19 m2 Karina Lisa Ramón Work Phone: [facility] DO Work Phone: 06-20-2022 16:24-0400 Body weight 112.49 kg Karina Lisa Ramón Work Phone: [facility] DO Work Phone: 06-20-2022 16:24-0400 Diastolic blood pressure 102 mm[Hg] Karina Lisa Ramón Work Phone: [facility] DO Work Phone: 06-20-2022 16:24-0400 Heart rate 76 /min Karina Lisa Ramón Work Phone: [facility] DO Work Phone: 06-20-2022 16:24-0400 Systolic blood pressure 162 mm[Hg] Karina Lisa Ramón Work Phone: [facility] DO Work Phone: 05-10-2022 14:46-0400 Body height 167.64 cm Karina Lisa Ramón Work Phone: [facility] [place] Work Phone: 05-10-2022 14:46-0400 Body mass index (BMI) [Ratio] 40.19 kg/m2 Karina Lisa Ramón Work Phone: [facility] [place] Work Phone: 05-10-2022 14:46-0400 Body surface area Derived from formula 2.2 m2 Karina Lisa Ramón Work Phone: [facility] [place] Work Phone: 05-10-2022 14:46-0400 Body weight 112.95 kg Karina Lisa Ramón Work Phone: [facility] [place] Work Phone: 05-10-2022 14:46-0400 Diastolic blood pressure 80 mm[Hg] Karina Lisa Ramón Work Phone: [facility] [place] Work Phone: 05-10-2022 14:46-0400 Heart rate 61 /min Karina Lisa Ramón Work Phone: [facility] [place] Work Phone: 05-10-2022 14:46-0400 Systolic blood pressure 130 mm[Hg] Karina Lisa Melgar Work Phone: [facility] [place] Work Phone: 05-02-2022 13:26-0500 Body height 167.64 cm Karina Lisa Melgar Work Phone: [facility] DO Work Phone: 05-02-2022 13:26-0500 Body mass index (BMI) [Ratio] 40.19 kg/m2 Karina Guardadoon Work Phone: [facility] DO Work Phone: 05-02-2022 13:26-0500 Body surface area Derived from formula 2.2 m2 Karina Guardadoon Work Phone: [facility] DO Work Phone: 05-02-2022 13:26-0500 Body weight 112.95 kg Karina Lisa Melgar Work Phone: [facility] DO Work Phone: 05-02-2022 13:26-0500 Diastolic blood pressure 64 mm[Hg] Karina Guardadoon Work Phone: [facility] DO Work Phone: 05-02-2022 13:26-0500 Heart rate 62 /min Karina Guardadoon Work Phone: [facility] DO Work Phone: 05-02-2022 13:26-0500 Systolic blood pressure 116 mm[Hg] Karina Guardadoon Work Phone: [facility] DO Work Phone: 04-29-2022 11:48-0500 Body height 167.64 cm Karina Guardadoon Work Phone: [facility] 600 DO Work Phone: 04-29-2022 11:48-0500 Body mass index (BMI) [Ratio] 40.09 kg/m2 Karina Guardadoon Work Phone: [facility] 600 DO Work Phone: 04-29-2022 11:48-0500 Body surface area Derived from formula 2.19 m2 Karina Lisa Ramón Work Phone: [facility] DO Work Phone: 04-29-2022 11:48-0500 Body weight 112.67 kg Karina Guardadoon Work Phone: [facility] DO Work Phone: 04-29-2022 11:48-0500 Diastolic blood pressure 80 mm[Hg] Karina Guardadoon Work Phone: [facility] DO Work Phone: 04-29-2022 11:48-0500 Heart rate 60 /min Karina Guardadoon Work Phone: [facility] DO Work Phone: 04-29-2022 11:48-0500 Systolic blood pressure 122 mm[Hg] Karina Melgar Work Phone: [facility] DO Work Phone: 04-18-2022 14:45-0500 Body height 167.64 cm Karina Melgar Other [facility] [employer] Other 04-18-2022 14:45-0500 Body mass index (BMI) [Ratio] 39.54 kg/m2 Karina Melgar Other [facility] [employer] Other 04-18-2022 14:45-0500 Body weight 111.13 kg Karina Melgar Other [facility] [employer] Other 04-18-2022 14:45-0500 Diastolic blood pressure 76 mm[Hg] Karina Melgar Other [facility] [employer] Other 04-18-2022 14:45-0500 Systolic blood pressure 122 mm[Hg] Karina Melgar Other [facility] [employer] [employer] Other 03-11-2022 18:35-0500 Diastolic blood pressure 79 mm[Hg] MD Karina Melgar Work Phone: [facility] 03-11-2022 18:35-0500 Heart rate 74 /min MD Karina Melgar Work Phone: [facility] 03-11-2022 18:35-0500 Respiratory rate 20 /min MD Karina Melgar Work Phone: [facility] 03-11-2022 18:35-0500 SaO2% (BldA) [Mass fraction] 97 % MD Karina Melgar Work Phone: [facility] 03-11-2022 18:35-0500 Systolic blood pressure 137 mm[Hg] MD Karina Melgar Work Phone: [facility] 03-11-2022 13:03-0500 Body height 167.64 cm MD Karina Melgar Work Phone: [facility] 03-11-2022 13:03-0500 Body temperature 98.7 [degF] MD Karina Melgar Work Phone: [facility] 03-11-2022 13:03-0500 Body weight 116 kg MD Karina Melgar Work Phone: [facility] 06-14-2021 11:15-0400 Body height 167.64 cm Shahriar Dhillon II Other [employer] Other 06-14-2021 11:15-0400 Body mass index (BMI) [Ratio] 40.02 kg/m2 Shahriar Dhillon II Other [employer] Other 06-14-2021 11:15-0400 Body weight 112.49 kg Shahriar Pamplin II Other [employer] Other 05-24-2021 15:30-0400 Body height 167.64 cm Karina Melgar Other [employer] Other 05-24-2021 15:30-0400 Body mass index (BMI) [Ratio] 40.19 kg/m2 Karina Melgar Other [employer] Other 05-24-2021 15:30-0400 Body weight 112.95 kg Karina Melgar Other [employer] Other 05-24-2021 15:30-0400 Diastolic blood pressure 80 mm[Hg] Karina Melgar Other [employer] Other 05-24-2021 15:30-0400 Systolic blood pressure 132 mm[Hg] Karina Melgar Other [employer] Other 03-21-2021 15:00-0500 Body height 167.64 cm Shahriar Pamplin II Other [employer] Other 03-21-2021 15:00-0500 Body mass index (BMI) [Ratio] 40.51 kg/m2 Shahriar Pamplin II Other [employer] Other 03-21-2021 15:00-0500 Body weight 113.85 kg Shahriar Pamplin II Other [employer] Other 02-13-2021 15:45-0500 Body height 167.64 cm Karina Melgar Other [employer] Other 02-13-2021 15:45-0500 Diastolic blood pressure 80 mm[Hg] Karina Melgar Other [employer] Other 02-13-2021 15:45-0500 Systolic blood pressure 144 mm[Hg] Karina Melgar Other [employer] Other 01-29-2021 14:45-0500 Body height 167.64 cm Karina Melgar Other [employer] Other 01-29-2021 14:45-0500 Body mass index (BMI) [Ratio] 40.64 kg/m2 Karina Melgar Other [employer] [employer] Other 01-29-2021 14:45-0500 Body weight 114.22 kg Karina Melgar Other [employer] Other 01-29-2021 14:45-0500 Diastolic blood pressure 92 mm[Hg] Karina Melgar Other [employer] Other 01-29-2021 14:45-0500 SaO2% (BldA) [Mass fraction] 98 % Karina Melgar Other [employer] Other 01-29-2021 14:45-0500 Systolic blood pressure 148 mm[Hg] Karina Melgar Other [employer] Other Encounters Encounter Date Encounter Type Care Provider Facility Start: 03-10-2023 End: 03-10-2023 Patient encounter procedure Toni Goldberg MD Work Phone: [facility] Comment on above: Aftercare following surgery (Primary Dx); Closed fracture of left femur, unspecified fracture morphology, unspecified portion of femur, initial encounter ([facility]) Start: 02-21-2023 Evaluation and management of inpatient [facility] Facility:[facility] Start: 02-18-2023 Evaluation and management of inpatient UNKNOWN PROVIDER Facility:[facility] Start: 02-18-2023 Patient encounter status Ip 3 [facility] Work Phone: Start: 02-18-2023 ambulatory [facility] Start: 02-18-2023 End: 02-18-2023 Subsequent hospital visit by physician Ip Dental Assisting Instructor 3 [facility] Non Invasive Cardiology Start: 02-17-2023 Evaluation and management of inpatient UNKNOWN PROVIDER Facility:[facility] Start: 02-16-2023 Evaluation and management of inpatient JUSTICE PRETTY Facility:[facility] Start: 02-16-2023 Emergency department patient visit UNKNOWN PROVIDER Facility:[facility] Start: 02-15-2023 Emergency department patient visit UNKNOWN PROVIDER Facility:[facility] Start: 02-15-2023 End: 02-15-2023 ambulatory UNKNOWN PROVIDER Facility:[facility] Start: 02-15-2023 End: 02-25-2023 Evaluation and management of inpatient Vivian Espinoza MD Work Phone: [address] Start: 02-15-2023 End: 02-25-2023 Patient encounter status Vivian Espinoza MD Work Phone: [facility] Work Phone: Start: 02-15-2023 End: 02-16-2023 Emergency department patient visit Justice Pretty Facility:[facility] Start: 02-15-2023 End: 02-15-2023 Emergency department patient visit Justice Pretty [facility] Start: 08-30-2022 Office outpatient vi sit 25 minutes Karina Melgar Work Phone: [facility] 250 DO Work Phone: Start: 08-13-2022 ambulatory Christopher Porter Facilit y: Start: 08-02-2022 ambulatory Christopher Porter Facilit y: Start: 08-02-2022 End: 08-02-2022 ambulatory Christopher Porter Facility:[facility] Start: 07-05-2022 ambulatory Christopher Porter Facilit y: Start: 07-05-2022 Office outpatient vi sit 25 minutes Karina Melgar Work Phone: [facility] 600 DO Work Phone: Start: 06-20-2022 Patient encounter procedure Karina Melgar Work Phone: [facility] 250 DO Work Phone: Start: 06-20-2022 ambulatory Christopher Porter Facilit y: Start: 06-12-2022 Chart Update Karina floyd Work Phone: [facility] 250 DO Work Phone: Start: 06-11-2022 End: 06-11-2022 ambulatory Christopher Porter Facility:[facility] Start: 06-11-[address] Karina Melgar Facility:[id number] Start: 05-28-2022 Patient encounter procedure Karina Melgar Work Phone: [facility] 250 DO Work Phone: Start: 05-10-2022 Patient encounter procedure Karina Melgar Work Phone: [facility] [place] Work Phone: Start: 05-10-2022 ambulatory Christopher Porter Facilit y: Start: 05-03-2022 AUDIT Karina floyd Work Phone: [facility] 250 DO Work Phone: Start: 05-02-2022 Patient encounter procedure Karina Melgar Work Phone: [facility] 600 DO Work Phone: Start: 05-02-2022 ambulatory Christopher Porter Facilit y: Start: 04-29-2022 Office outpatient vi sit 25 minutes Karina Melgar Work Phone: [facility] 600 DO Work Phone: Start: 04-29-2022 ambulatory Christopher Porter Facilit y: Start: 04-18-2022 End: 04-18-2022 ambulatory Karina Melgar Other [employer] Other Start: 04-18-2022 Office outpatient vi sit 15 minutes Karina Melgar [facility] Start: 03-29-2022 End: 03-04-2023 ambulatory ACNP Mae Rodrigez Facility:[facility] Start: 03-29-2022 End: 03-03-2023 Recurring Mae Rodrigez [facility] Start: 03-27-2022 End: 03-27-2022 ambulatory Karina Melgar Facility:[facility] Start: 03-27-2022 End: 03-27-2022 Patient encounter procedure MD Karina Melgar Work Phone: [facility] Work Phone: Start: 03-27-2022 End: 03-27-2022 ambulatory MD Karina Melgar Work Phone: [facility] Work Phone: Start: 03-27-2022 Telephone encounter Sejalra Link [facility] Start: 03-25-2022 End: 03-25-2022 ambulatory Sejalra Link Other [employer] Other Start: 03-25-2022 Telephone encounter Sejal Nikolay [facility] Start: 03-21-2022 ambulatory Christopher Porter Facilit y: Start: 03-14-2022 End: 03-14-2022 ambulatory Sejal Nikolay Other [employer] Other Start: 03-14-2022 Telephone encounter Sejal Nikolay [facility] Start: 03-12-2022 End: 03-12-2022 ambulatory Karina Melgar Other [employer] Other Start: 03-12-2022 Telephone encounter Karina cabrera [facility] Start: 03-11-2022 End: 03-11-2022 Emergency department patient visit Yo Blood Facility:[facility] Start: 03-11-2022 End: 03-11-2022 Emergency department patient visit MD Karina Melgar Work Phone: [facility] Work Phone: Start: 09-26-2021 End: 09-26-2021 ambulatory Shahriar M Pamplin II Facility:[facility] Start: 08-28-2021 End: 08-28-2021 ambulatory Shahriar Pamplin II Other [employer] Other Start: 08-28-2021 Telephone encounter Shahriar Pamplin II [facility] Start: 08-15-2021 (Post-Op) Post-Op Shahriar Pamplin II [facility] Start: 08-15-2021 End: 08-15-2021 ambulatory Shahriar M Pamplin II [employer] Other Start: 07-18-2021 (Post-Op) Post-Op Shahriar Pamplin II [facility] Start: 07-18-2021 End: 07-18-2021 ambulatory Shahriar Alejo II Other [employer] Other Start: 07-02-2021 End: 07-03-2021 ambulatory Kate Suarezer Facility:[facility] Start: 06-28-2021 End: 06-28-2021 ambulatory Shahriar M Pamplin II Facility:[facility] Start: 06-22-2021 (Prolonged) Prolonge d Services Shahriar Pamplin II [facility] Start: 06-22-2021 End: 06-22-2021 ambulatory Shahriar Pamplin II Other [employer] Other Start: 06-18-2021 End: 06-18-2021 ambulatory Shahriar M Pamplin II Facility:[facility] Start: 06-14-2021 End: 06-14-2021 ambulatory Shahriar Pamplin II Other [employer] Other Start: 06-14-2021 Encounter for other preprocedural examination Shahriar Pamplin II [facility] Start: 06-14-2021 Patient encounter procedure Shahriar Alejo II [facility] Start: 05-24-2021 End: 05-24-2021 ambulatory Karina Melgar Other [employer] Other Start: 05-24-2021 Encounter for other preprocedural examination Karina Melgar [facility] Start: 05-24-2021 Office outpatient vi sit 15 minutes Karina Melgar [facility] Start: 03-22-2021 End: 03-22-2021 ambulatory Lynn Gurrola Other [employer] Other Start: 03-22-2021 Encounter for other preprocedural examination Shahriar Alejo II [facility] Start: 03-22-2021 Telephone encounter Shahriar Pamplin II [facility] Start: 03-21-2021 End: 03-21-2021 ambulatory Shahriar Alejo II Other [employer] Other Start: 03-21-2021 Office outpatient ne w 45 minutes Shahriar Pamplin II [facility] Start: 02-13-2021 End: 02-13-2021 ambulatory Karina Melgar Other [employer] Other Start: 02-13-2021 Office outpatient vi sit 15 minutes Karina Melgar [facility] Start: 01-29-2021 End: 01-29-2021 ambulatory Karina Melgar Other [employer] Other Start: 01-29-2021 Office outpatient vi sit 15 minutes Karina Melgar [facility] Start: 04-01-2020 End: 04-01-2020 Orders Only Alina Bueno Work Phone: [facility] Procedures Date Procedure Procedure [...] on above: Order Comment: Date of Surgery: [id number] Result Comment: PERF ORMED BY: [facility] [place] [address] PATHOLOGIST MARINE PAINTER EYAD HOWARD M.D. Start: 02-25-2016 Total colonoscopy [...] procedure 04/11/2023 10:30 AM EST Office Visit [facility] [address] [id number] Toni Goldberg MD [address] [id number] [facility] Start: 03-11-2023 FUV, Provider: Christopher Porter, Status: Pen, Time: 8:40 AM FUV, Provider: Christopher Porter, Status: Pen, [facility]: [facility]: Start: 10-25-2022 Influenza vaccination [facility] Start: 08-30-2022 FUV, Provider: Christopher Porter, Status: Pen, Time: 8:40 AM FUV, Provider: Christopher Porter, Status: Pen, Time: 8:40 AM [facility] 600 DO Work Phone: Start: 07-18-2022 SURGNON, Provider: Christopher Porter, Status: Pen, Time: 10:00 AM [facility], Provider: Christopher Porter, Status: Pen, Time: 10:00 [address] [facility] 600 DO Work Phone: Start: 07-05-2022 FUV, Provider: Christopher Porter, Status: Pen, Time: 8:40 AM FUV, Provider: Christopher Porter, Status: Pen, Time: 8:[address] [facility] 250 DO Work Phone: Start: 06-20-2022 EKG, Provider: ESTELA CLARKE DIRECTOR OF MARKETING ANALYTICS 1,[id number], Status: Pen, Time: 1:00 PM EKG, Provider: ESTELA CLARKE DIRECTOR OF MARKETING ANALYTICS 1,[id number], Status: Pen, Time: 1:[address] [facility] 250 DO Work Phone: Start: [facility]-11-2022 [facility]: Christopher [facility], Status: Pen, Time: 2:00 PM [facility], Provider: Christopher Porter, Status: Pen, Time: 2:00 PM -[facility] 250 DO Work Phone: Start: 06-04-2022 FUV, Provider: Christopher Porter, Status: Pen, Time: 8:20 AM FUV, Provider: Christopher Porter, Status: Pen, Time: 8:20 AM -[facility] 600 DO Work Phone: Start: 05-10-2022 EKG, Provider: ESTELA CLARKE DIRECTOR OF MARKETING ANALYTICS 1,[id number], Status: Pen, Time: 2:00 PM EKG, Provider: ESTELA CLARKE DIRECTOR OF MARKETING ANALYTICS 1,[id number], Status: Pen, Time: 2:00 PM -[facility] 250 DO Work Phone: Start: 05-02-2022 EKG, Provider: ESTELA HAMPTON DIRECTOR OF MARKETING ANALYTICS 1,[id number], Status: Pen, Time: 1:00 PM EKG, Provider: ESTELA HAMPTON DIRECTOR OF MARKETING ANALYTICS 1,[id number], Status: Pen, Time: 1:00 PM [facility] 600 DO Work Phone: Start: 10-26-2019 Influenza vaccination given Sequential Influenza Vaccine (#1) [facility] Start: 11-24-2014 [facility] Start: 2013 [facility]neumococcal [facility] Start: 2013 [facility] Start: 2008 RSV vaccine (optional 60+ years) RSV vaccine (optional 60+ years) [facility] Start: 2008 [facility] Start: 1998 Administration of herpes zoster vaccine Zoster Vaccines (1 of 2) [facility] Start: 1998 Screening for malignant neoplasm of colon [facility] Start: 1998 Shingles (RZV) Vaccine (1 of 2) [facility] Start: 1993 Screening for malignant neoplasm of colon [facility] Start: 11-29-1983 Lipid panel [facility] Start: 1966 Hepatitis C antibody, confirmatory test Hepatitis C Screening [facility] Start: 1966 Hepatitis C screening [facility] Start: 1966 Tetanus + diphtheria + acellular pertussis vaccine (product) [facility] Start: 1964 COVID-19 Vaccine (1 of 2) COVID-19 Vaccine (1 of 2) [facility] Start: 1960 Adolescent depression screening assessment Depression Screening (PHQ9) [facility] Start: 1954 Pneumococcal vaccination Pneumococcal Vaccine(s) (65+ yrs) (1 of 2 - PCV) [facility] Start: 11-29-1951 History and physical examination, annual for health maintenance Wellness Visit [facility] Start: 05-29-1949 COVID-19 Vaccine (#1) COVID-19 Vaccine (#1) [facility] Start: 05-29-1949 [facility] Start: 1948 Fall risk assessment Falls Risk Assessment [facility] Start: 1948 Prostate specific antigen measurement PSA Level [facility] Start: 1948 Screening for malignant neoplasm of colon [facility] Start: 1948 Tetanus vaccination Tetanus: Every 10yrs [facility] Assay of magnesium [facility] th Assay of phosphorus inorganic [facility] Basic metabolic 2000 panel - Serum or Plasma [facility] Work Phone: CBC panel - Blood by Automated count [place] End: 02-16-2023 CT Thigh - left WO contrast [facility] Work Phone: Patient Education Atrial Fibrill ation Cough, Adult ED Bronchitis, Adult ED [facility] Work Phone: Patient referral [facility] Work Phone: End: 02-18-2023 RED BLOOD CELL COMPONENT [facility] End: 02-17-2023 Smr prim src gram/giemsa stain bct fungi/cell [facility] Work Phone: Immunizations Immunization Date Immunization Notes Care Provider Ella serna NEGATED: Highlighted row has not occurred! 6 influenza, seasonal, injectable Patient Objection Karina Melgar Other [employer] Other Payers Date Payer Category Payer Unknown [id number] 2023 Unknown XX 2022 Unknown 2021 Self-pay [id number] 2021 Unknown [id number] 2.1 [id number] 2013 Medicare [id number] 2.1 6.840.1.356846.19 2013 Medicare [id number]. [id number] 1948 Unknown [id number] 2.16. 840.1.647482.3.579.2.356 1948 Unknown [id number] 2.16. 840.1.102572.3.579.2.356 1948 Unknown [id number] 2.16. 840.1.792277.3.579.2.356 1948 Unknown [id number] 2.16. 840.1.945060.3.579.2.356 1948 Unknown [id number] 2.16. 840.1.162116.3.579.2.356 1948 Unknown [id number] 2.16. 840.1.315054.3.579.2.356 1948 Unknown [id number] 2.16. 840.1.282068.3.579.2.356 1948 Unknown [id number] 2.16. 840.1.788887.3.579.2.356 1948 Unknown [id number] 2.16. 840.1.275119.3.579.2.356 1948 Unknown [id number] 2.16. 840.1.432590.3.579.2.356 1948 Unknown [id number] 2. 840.1.689761.3.579.2.732 1948 Unknown [id number] 2.16. 840.1.457250.3.579.2.732 1948 Unknown [id number] 2.16. 840.1.118083.3.579.2.732 1948 Unknown [id number] 2. 840.1.917880.3.579.2.732 1948 Unknown [id number] 2. 840.1.572436.3.579.2.732 1948 Unknown [id number] 2.16. 840.1.093635.3.579.2.732 1948 Unknown [id number] 2.16. 840.1.416552.3.579.2.732 1948 Unknown [id number] 2.16. 840.1.756301.3.579.2.732 1948 Unknown [id number] 2.16. 840.1.397026.3.579.2.732 1948 Unknown [id number] 2.16. 840.1.617121.3.579.2.732 1948 Unknown [id number] 2.16. 840.1.364320.3.579.2.732 1948 Unknown [id number] 2.16. 840.1.336823.3.579.2.732 1948 Unknown [id number] 2.16. 840.1.989632.3.579.2.732 1948 Unknown [id number] 2.16.8 40.1.196866.3.579.2.727 1948 Unknown [id number] 2.16.8 40.1.092761.3.579.2.727 1948 Unknown [id number] 2.16.8 40.1.580849.3.579.2.727 Unknown [id number] 2.16.8 40.1.498660.3.579.2.531 Unknown [id number] 2.16.8 40.1.286661.3.579.2.531 Unknown [id number] 2.16.8 40.1.879009.3.579.2.531 Unknown [id number] 2.16.8 40.1.237758.3.579.2.531 Unknown [id number] 2.16.8 40.1.881677.3.579.2.531 Unknown [id number] 2.16.8 40.1.720071.3.579.2.531 Unknown [id number] 2.16.8 40.1.384527.3.579.2.531 Unknown [id number] 2.16.8 40.1.491538.3.579.2.531 Social History Date Type Detail Facility Tobacco smoking status NHIS Unknown if ever smoked [facility] Start: 1950 Sex Assigned At Not [facility] Sex Assigned At [facility] Start: 03-11-2022 End: 03-10-2023 Tobacco smoking status NHIS Never smoked tobacco (finding) [facility] Start: 1950 Sex Assigned At Male F [facility] No alcohol use No alcohol use [facility] 600 DO Work Phone: Comment on above: Two 10 oz cups of co ffee; Quit in 1976; Start: 01-31-2019 Tobacco smoking status Ex-smoker (finding) [facility] Tobacco smoking status [facility] Tobacco smoking consumption unknown [facility] Start: 03-10-2023 Tobacco use and exposure Smokeless tobacco [facility] Medical Equipment Procedure Code Equipment [...] Arthroplasty, hip, total, anterior approach Acetabular shell ([id number] FDA Start: 07-02-2021 Arthroplasty, hip, total, anterior approach Ceramic femoral head prosthesis ()[id number] FDA Start: 07-02-2021 Arthroplasty, hip, total, anterior approach Coated hip femur prosthesis, modular ()[id number] FDA Start: 07-02-2021 Arthroplasty, hip, total, anterior approach Non-constrained polyethylene acetabular liner ()[id number] FDA Start: 07-02-2021 [id number] Start: 02-18-2023 [id number] Start: 02-18-2023 [id number] Start: 02-18-2023 Functional Status Date Assessment Result Facility 02-15-2023 Functional Status No [facility] Clinical Notes 01-29-2021 to 03-10-2023 Toni Goldberg [...] findings. Toni Goldberg MD Orthopaedic Trauma Surgeon [facility] documented in this encounter [facility] 03-10-2023 Instructions Toni Goldberg MD [...] in 1 month documented in this encounter [facility] 02-25-2023 History of Present illness Narrative Patient discharged to [facility] [address] IV's & drain removed. Patient took all belongings with him. Discharge plan: SNF, awaiting facility acceptance. Contacted [facility] to follow up determination. VM was left for admissions department, awaiting reply. ALEE Montes, JINNY ADDENDUM 1:45PM [facility] denied pt. Called pt's , Rae ([phone]) to obtain additional SNF choices. She selected the following: [facility] Referrals are in process. ALEE Montes LSW ADDENDUM 2:48PM [facility] accepted pt. aware and would like [...] R rib 9-10 fracture was seen at [facility].The patient had 5 packs of RBCs, 3 packs of FFP, 1 platelet, TXA and Vit K from when he arrived to [facility] and in transit. Patient takes coumadin. Hospital Course: 02/16- became hypotensive, concern for aspiration PNA. Central line, art line placed. On dual pressors. 02/17- weaned off pressors. skein yard drier attempted bedside echo. 02/18- OR with ortho [...] 02/19 Respiratory: COPD, pulmonary HTN - respiratory roller skate repairer protocol - encourage IS - weaned off [...] of Surgery [facility] Trauma ICU [phone] Trauma Floor [phone] Associated attestation - Faby Ryan MD - [...] facility acceptance. Referrals were previously sent to [facility] and [facility] denied pt, [facility] is still reviewing. Updates were sent in [facility]. ALEE Montes, MANAGER INTELLIGENCE Images from the original note were not [...] R rib 9-10 fracture was seen at [facility].The patient had 5 packs of RBCs, 3 packs of FFP, 1 platelet, TXA and Vit K from when he arrived to [facility] and in transit. Patient takes coumadin. Hospital Course: 02/16- became hypotensive, concern for aspiration PNA. Central line, art line placed. On dual pressors. 02/17- weaned off pressors. skein yard drier attempted bedside echo. 02/18- OR with ortho [...] 02/19 Respiratory: COPD, pulmonary HTN - respiratory roller skate repairer protocol - encourage IS - wean oygen, [...] of Surgery [facility] Trauma ICU [phone] Trauma Floor [phone] Images from the original note were not [...] R rib 9-10 fracture was seen at [facility].The patient had 5 packs of RBCs, 3 packs of FFP, 1 platelet, TXA and Vit K from when he arrived to [facility] and in transit. Patient takes coumadin. Hospital Course: 02/16- became hypotensive, concern for aspiration PNA. Central line, art line placed. On dual pressors. 02/17- weaned off pressors. skein yard drier attempted bedside echo. 02/18- OR with ortho [...] 02/19 Respiratory: COPD, pulmonary HTN - respiratory roller skate repairer protocol - encourage IS - wean oygen, [...] of Surgery [facility] Trauma ICU [phone] Trauma Floor [phone] Preliminary Vascular Lab Report Duplex Left Upper [...] R rib 9-10 fracture was seen at [facility].The patient had 5 packs of RBCs, 3 packs of FFP, 1 platelet, TXA and Vit K from when he arrived to [facility] and in transit. Patient takes coumadin. Hospital Course: 02/16- became hypotensive, concern for aspiration PNA. Central line, art line placed. On dual pressors. 02/17- weaned off pressors. skein yard drier attempted bedside echo. 02/18- OR with ortho [...] 4434 (37.1 mL/kg) [Urine:4434 (1.5 mL/kg/hr)] Net: -9144 Weight: 119.5 kg -- PHYSICAL EXAM -- [...] 02/19 Respiratory: COPD, pulmonary HTN - respiratory roller skate repairer protocol - encourage IS - goal O2 [...] rec for SNF Pt was denied from [facility] due to no available bed. Ruebn will like updates Friday before deciding to [...] return to baseline. Will continue to monitor. [facility] 02/20/2023 Reason for Services: Follow-Up Negative Checker attempted to visit with patient for follow up regarding resources and education provided and answer any questions. Patient was asleep at time of visit. Negative Checker will attempt to engage with Patient and/or Family the next business day. Jess Henley Main Line: [phone] SW/CM aware that patient meets criteria for SNF. Met with Pt on unit to discuss dispo. Patient open and agreeable to SNF placement. CM/SW provided pt the quality and resource use measure data from available post-acute (PAC) providers, that best align with the patient's treatment goals and preferences from the medicare.gov compare site for SNF. [place] of Choice was provided to the patient/patient service liaison representative. Pt want's RAE STROUD [phone] as decision maker for dc planning SW/CM will follow up for choices. Addendum 2:06pm SW called pt's RAE STROUD [phone] she gave the following facility choices [facility] Ms. Stroud has surgery tomorrow, pt's son Anibal Stroud [phone] will be main salesperson men's hats for the family. SW sent referrals SW [...] R rib 9-10 fracture was seen at [facility].The patient had 5 packs of RBCs, 3 packs of FFP, 1 platelet, TXA and Vit K from when he arrived to [facility] and in transit. Patient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
[2023-03-28 08:08] LABS: Prothrombin Time 25.2 sec (9.0-11.6)
== END 2023-03-28 02:08 | disposition home or self-care (01) ==
LOC: LAB 02:07
PROVIDERS: PCP Family Medicine; Visit Provider Family Medicine
DX: I48.0 Paroxysmal atrial fibrillation (principal)
CPT/HCPCS: 36415; 85610

== ENCOUNTER 2023-03-31 03:17 | Outpatient (REF) | payer MEDICARE, SELFPAY ==
--- OUTSIDE RECORDS SUMMARY | 2023-03-31 03:21 | XMS_ITS | CCD ---
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 Driver Name Role Phone No, Physician Primary Care Provider UnavailShahriar Frederick II Unavailable [phone] Shahriar Dhillon II Unavailable Karina Melgar Unavailable Lynn Gurrola Unavailable MD Karina Melgar Primary Care Provider DO Yo Blood Emergency Provider [phone] LISSETH Link Attending Provider Sejal Link Unavailable [...] Unavailable Christopher Porter Consulting Unavail able Wisam Torer Consulting Unavailable Phong Castro Consulting Unavailab Riya Garcia Consulting Unavailable Ester Salgado Consulting Unavailable Kam Ventura Consulting Unavailab Mulu Renae Consulting Unavailable Zenia Sandoval Consulting Unavailable Mariposa Clifton Consulting Unavailable Madison Steel Consulting Unavailable Cee Carrillo Consulting Unavailable Ruba Mishra Consulting Unavailable Nunu Ruiz Consulting Unavailable Poonam Borjas Consulting Unavailable Williams Winston Consulting Unavailable Joe Chery Consulting Unavailable Kym Estevez Consulting Unavailable Vic Block Consulting Unavailable Tru Morfin Consulting Unavailable Surya Thapa Consulting UnavailDillon Silver Consulting Unavailable Aury Kahn Consulting Unavailable Eileen Barakat Consulting Unavailable Hilton Canada Consulting Unavailable Richmond Saucedo Consulting Unavailable Neil Walton Consulting Unavailable Maraina Andrade Consulting Unavailable Karina Orozco Consulting Unavailable Keyon Edwards Consulting Unavailable Sherita Mercer Consulting Unavailable Jose L Coles Consulting Unavailable Jory Campos Consulting Unavailable Ankush Rodrigez Consulting Unavailab Marcus Edmond Consulting Unavailable Marcos Bruno Consulting Unavailable Haylee Diaz Consulting Unavailable Kayode Almaraz Consulting Unavailable Angel Senior Consulting Mariella vailable Trisha Keyes Consulting Unavailable Pawan Kaba Consulting Unavailab Kennedy Dhillon Consulting Unavailable Ryan Dolan Consulting Unavailable ObFatoumata conde Consulting Unavailable Adri Mon Consulting Unavailable Shahriar Dhillon II Admitting UnavailShahriar Frederick II Attending UnavailKarina Butler Primary Care Unavailable Christopher Porter Referring Unavailable Christopher Porter Attending Unavailable Ramón, Dr. Karina Abernathy Primary Care Mariella vailable Christopher Porter Referring Unavailable Dr. Karina Melgar Primary Care Mariella vailable Christopher Porter Attending Unavailable Christopher Porter Referring Unavailable Ramón, Dr. Karina Abernathy Primary [...] Ramón, Dr. Karina Abernathy Primary Care Mariella vailaKARINA Nelson Primary Care Physician JUSTICE PRETTY Referring Unavailable RADHA SMALL Attending Unavailable REQUEST, IP OCCUPATIONAL THERAPY SERVICE Consult ing Unavailable ISACC ALICIA Admitting Unavailable REQUEST, IP PHYSICAL THERAPY SERVICE Consulting Unavailable CONSULT, IP CARDIOLOGY Consulting Unavailab le PROVIDER, UNKNOWN Admitting Unavailable PROVIDER, UNKNOWN Attending Unavailable PROVIDER, UNKNOWN Admitting Unavailable SUKHWINDER, JUSTICE Referring Unavailable PROVIDER, UNKNOWN Attending Unavailable LUKASZ ALICIAY Admitting Unavailable PROVIDER, UNKNOWN Attending Unavailable SUKHWINDER, JUSTICE Referring Unavailable LUKASZ ALICIAY Admitting Unavailable PROVIDER, UNKNOWN Attending Unavailable SUKHWINDER, JUSTICE Referring Unavailable HILLARY, ISACC Admitting Unavailable SUKHWINDER, JUSTICE Referring Unavailable PROVIDER, UNKNOWN Attending Unavailable HILLARYLUKASZY Admitting Unavailable PROVIDER, UNKNOWN Admitting Unavailable SUKHWINDER, JUSTICE Referring Unavailable PROVIDER, UNKNOWN Attending Unavailable PROVIDER, UNKNOWN Admitting Unavailable PROVIDER, UNKNOWN Attending Unavailable PROVIDER, UNKNOWN Admitting Unavailable PROVIDER, UNKNOWN Attending Unavailable PROVIDER, UNKNOWN Admitting Unavailable PROVIDER, UNKNOWN Attending Unavailable Unavailable Primary Care Provider Unavailabl e Unavailable Primary Care Provider Unavailabl e TIAGO Rodrigez Attending Unavailable Brandeni, MEGHANAP Mae Referring Unavailable Justi, MEGHANAP Mae Admitting Unavailable McGuinn, Christopher P Admitting Unavailable McGuinn, Christopher P Attending Unavailable German, Christopher P Referring Unavailable Sukhwinder, Justice Attending Unavailable Allergies Allergy Classification Reported Allergen(s) Allergy Type Date of Onset Reaction(s) Facility (1 source) No Known Medication Allergies; Translations: [No Known Medication Allergies] Propensity to adverse reactions (disorder) [facility] Repository Medications Current Medications Medication Drug Class(es) Dates Sig (Normalized) Sig (Original) acetaminophen 325 mg / HYDROcodone bitartrate 5 mg oral tablet (2 sources) Opioid Agonist Start: 07-28-2020 [place] 325 mg-5 mg oral tablet 1 tab(s), [...] DO Active take 1 capsule by mo uth every twenty-four hours Vitamin D3 25 MCG [...] Active docusate sodium 50 mg / sennosides, nursing [...] on 03/02/23 at 0900, Until Discontinued Start: 02-25-2023 take 4 mg by mouth once daily 4 mg, Oral, DAILY EXCEPT FRIDAY, First dose on Fri02/25/23 at 1330, Until Discontinued Start: 03-21-2022 warfarin 2 mg Tab Refills(s) 0 Start Date: 08/01/22 Status: Ordered Warfarin Sodium 2 MG Oral Tablet Take as directed by [facility] Quantity: 0 Refills: 0 Ordered: [...] Start: 06-14-2021 take 2 tablets by mo [facility] every eight hours for pain Acetaminophen [...] administer with spacer take 2 puff(s) by [facility] every four hours as needed ALBUTEROL INHALATION Inhale 2 Puffs by mouth every 4 hours as needed for Other (sob). 0 Active take 2 puff(s) by [facility] every four hours as needed ALBUTEROL [...] 1 capsule by mouth twice daily Iron Jgj-E90-[id number]-Iq-A-Fchmb Acid (Ferocon) 110-0.5 mg Capsule Discontinued 1 [...] 5:18pm Start: 06-14-2021 [facility] Aspirin 81 MG 1 [...] FLUID BOLUS, 1 dose, On Fri02/16/23 at 2200 Start: 02-16-2023 End: 02-16-2023 take [...] Discontinued Start: 06-14-2021 take [address] tablet [address] [facility] three times daily as needed for nausea Ondansetron HCl 8 MG 1 tablet as needed for nausea Orally TID for 10 days Med to Bed Upon Discharge DOS: 07/02/2021 May, Active polyethylene glycol 3350 89609 mg powder for oral solution (4 sources) [...] Discontinued Start: 07-05-2022 take 1 capsule by [facility] every twelve hours propafenone 425 mg [...] Active Start: 04-29-2022 take 1 capsule by [facility] every twelve hours Propafenone HCl ER 225 MG Oral Capsule Extended Release 12 Hour TAKE 1 CAPSULE EVERY 12 HOURS. Quantity: 180 Refills: 0 Ordered: 29-Apr-2022 Christopher Porter MD Start : 29-Apr-2022 Active new start Prostate Support TABS (10 sources) Prostate Support TABS TAKE 1 TABLET DAILY DIRECTED. Quantity: 0 Refills: 0 Ordered: 21-Mar-2022 DO Active Saw-Vit E-Sod Aym-Bkg-Kphy-Pyg (Prostate Health) 160-100-100 mg-unit-mcg Tablet (2 sources) Start: End: 3 take 1 capsule by mouth once daily Saw-Vit E-Sod Tsj-Tkq-Htkl-Pyg (Prostate Health) 160-100-100 mg-unit-mcg Tablet Discontinued 1 [...] on Fri02/17/23 at 1600, Until Discontinued Vit C-S.Hwzicm-Ixrmwc-Jplkl Sd (Tart Bhagat) 46-591-27-75-20 mg Capsule (2 sources) Start: 07-28-2017 End: 08-09-2019 Vit C-S.Dvigrg-Ahtzpi-Yeozw Sd (Tart Bhagat) 49-569-01-75-20 mg Capsule Discontinued 1 CAP PO Twice [...] source) Long-term current use of anticoagulant; Translations: [correction (current) use of anticoagulants] Episodic Other aftercare [...] 02-13-2021 Episodic Other aftercare (2 sources) Other ocean transportation intermediary (current) drug therapy Onset: 03-22-2021 Resolved: 06-14-2021 [...] (1 source) Pain in left hip; Translations: [M26.606 - Pain in left hip] Onset: 07-02-2021 Episodic Results Test Name Value Interpretation Reference Range [facility] Basic metabolic 2000 panelon 02-25-2023 Anion gap [Moles/Vol] 8 mmol/L Low 10 - 20 [facility] Calcium [Mass/Vol] 8.0 mg/dL Low 8.6 - 10. 3 mg/dL [facility] Chloride [Moles/Vol] 102 mmol/L 98 - 107 mmol/L [facility] CO2 [Moles/Vol] 30 mmol/L 21 - 31 mmol/L [facility] Creatinine [Mass/Vol] 0.64 mg/dL Low 0.70 - 1.30 mg/dL [facility] GFR/1.73 sq M.predicted CKD-EPI (S/P/Bld) [Vol rate/Area] 99 - PINF [facility] Glucose [Mass/Vol] 129 mg/dL High 74 - 109 mg/dL [facility] Interpretation and review of laboratory results [...] 8.9 g/dL Low 13.9 - 16.3 g/dL [facility] Interpretation and review of laboratory results Abnormal [facility] MCH (RBC) [Entitic mass] 30.8 pg 26.0 - 34.0 pg [facility] MCHC (RBC) [Mass/Vol] 32.5 g/dL 32.0 - 35.9 g/dL [facility] MCV (RBC) [Entitic vol] 95 fL 80 - 100 fL [facility] Platelet mean volume (Bld) [Entitic vol] 8.0 fL 7.5 - 11.2 fL [facility] Platelets (Bld) [#/Vol] 376 10*3/uL 150 - 400 K/uL [facility] RBC (Bld) [#/Vol] 2.90 10*6/uL Low [facility] WBC (Bld) [#/Vol] 8.5 10*3/uL 4.5 - 11.5 K/uL [facility] 02-25-2023 Magnesium [Mass/Vol] 1.9 mg/dL 1.6 - 2.8 mg/dL [facility] No Panel Informationon 02-25 Interpretation and review of laboratory results [facility] 02-25-2023 Phosphate [Mass/Vol] 2.9 mg/dL 2.3 - 4.2 mg/dL [facility] PROTHROMBIN TIME AND INRon 0 02-25-2023 INR Coag (PPP) [Relative time] 1.13 {INR} High 0.90 - 1.10 [facility] Interpretation and review of laboratory results Abnormal [facility] PT Coag (PPP) [Time] 12.6 s [facility] ANTI FXA-LMW HEPARINon 02-24 LMW Heparin Chromogenic method Qn (PPP) 0.32 IU/mL [facility] Basic metabolic 2000 panelon 02-24-2023 Anion gap [Moles/Vol] 9 mmol/L Low 10 - 20 Met [place] Calcium [Mass/Vol] 7.7 mg/dL Low 8.6 - 10. 3 mg/dL [facility] Chloride [Moles/Vol] 101 mmol/L 98 - 107 mmol/L [facility] CO2 [Moles/Vol] 30 mmol/L 21 - 31 mmol/L [facility] Creatinine [Mass/Vol] 0.60 mg/dL Low 0.70 - 1.30 mg/dL [facility] GFR/1.73 sq M.predicted CKD-EPI (S/P/Bld) [Vol rate/Area] 101 - PINF [facility] Glucose [Mass/Vol] 98 mg/dL 74 - 109 mg/dL [facility] Interpretation and review of laboratory results Abnormal [facility] Potassium [Moles/Vol] 4.0 mmol/L 3.5 - 5.0 mmol/L [facility] Sodium [Moles/Vol] 136 mmol/L 136 - 145 mmol/L [facility] Urea nitrogen [Mass/Vol] 19 mg/dL 7 - 25 mg/dL [facility] CBC panel Auto (Bld)on 02-24 Erythrocyte distribution width (RBC) [Ratio] 15.4 % High 11.5 - 14.5 % [facility] Hematocrit (Bld) [Volume fraction] 25.2 % Low 41.0 - 53.0 % [facility] Hemoglobin (Bld) [Mass/Vol] 8.3 g/dL Low 13.9 - 16.3 g/dL [facility] Interpretation and review of laboratory results Abnormal [facility] MCH (RBC) [Entitic mass] 30.7 pg 26.0 - 34.0 pg [facility] MCHC (RBC) [Mass/Vol] 33.1 g/dL 32.0 - 35.9 g/dL [facility] MCV (RBC) [Entitic vol] 93 fL 80 - 100 fL [facility] Platelet mean volume (Bld) [Entitic vol] 7.6 fL 7.5 - 11.2 fL [facility] Platelets (Bld) [#/Vol] 320 10*3/uL 150 - 400 K/uL [facility] RBC (Bld) [#/Vol] 2.72 10*6/uL Low [facility] WBC (Bld) [#/Vol] 7.6 10*3/uL 4.5 - 11.5 K/uL [facility] 02-24-2023 Magnesium [Mass/Vol] 1.9 mg/dL 1.6 - 2.8 mg/dL [facility] No Panel Informationon 02-24 Interpretation and review of laboratory results Normal [facility] PHOSPHORUSon 02-24-2023 Phosphate [Mass/Vol] 2.7 mg/dL 2.3 - 4.2 mg/dL [facility] Basic metabolic 2000 panelon 02-23-2023 Anion gap [Moles/Vol] 9 mmol/L Low 10 - 20 [facility] Calcium [Mass/Vol] 7.8 mg/dL Low 8.6 - 10. 3 mg/dL [facility] Chloride [Moles/Vol] 99 mmol/L 98 - 107 mmol/L [facility] CO2 [Moles/Vol] 32 mmol/L High 21 - 31 mmol/L [facility] Creatinine [Mass/Vol] 0.59 mg/dL Low 0.70 - 1.30 mg/dL [facility] GFR/1.73 sq M.predicted CKD-EPI (S/P/Bld) [Vol rate/Area] 102 - PINF [facility] Glucose [Mass/Vol] 88 mg/dL 74 - 109 mg/dL [facility] Interpretation and review of laboratory results Abnormal [facility] Potassium [Moles/Vol] 4.0 mmol/L 3.5 - 5.0 mmol/L [facility] Sodium [Moles/Vol] 136 mmol/L 136 - 145 mmol/L [facility] Urea nitrogen [Mass/Vol] 22 mg/dL 7 - 25 mg/dL [facility] CBC panel Auto (Bld)on 02-23 Erythrocyte distribution width (RBC) [Ratio] 15.3 % High 11.5 - 14.5 % [facility] Hematocrit (Bld) [Volume fraction] 26.6 % Low 41.0 - 53.0 % [facility] Hemoglobin (Bld) [Mass/Vol] 8.7 g/dL Low 13.9 - 16.3 g/dL [facility] Interpretation and review of laboratory results Abnormal [facility] MCH (RBC) [Entitic mass] 30.4 pg 26.0 - 34.0 pg [facility] MCHC (RBC) [Mass/Vol] 32.7 g/dL 32.0 - 35.9 g/dL [facility] MCV (RBC) [Entitic vol] 93 fL 80 - 100 fL [facility] Platelet mean volume (Bld) [Entitic vol] 8.7 fL 7.5 - 11.2 fL [facility] Platelets (Bld) [#/Vol] 285 10*3/uL 150 - 400 K/uL [facility] RBC (Bld) [#/Vol] 2.86 10*6/uL Low [facility] WBC (Bld) [#/Vol] 8.2 10*3/uL 4.5 - 11.5 K/uL [facility] MAGNESIUM[facility] 02-23-2023 Magnesium [Mass/Vol] 2.0 mg/dL 1.6 - 2.8 mg/dL [facility] No Panel Informationon 02-23 Interpretation and review of laboratory results [facility] PHOSPHORUS[facility] 02-23-2023 Phosphate [Mass/Vol] 2.6 mg/dL 2.3 - 4.2 mg/dL [facility] ANTI FXA-LMW HEPARINon 02-22 ANTI FXA-LMW HEPARIN ASSAY 0.48 IU/mL Normal [facility] Comment on above: Order Comment: The r ecommended therapeutic range for treatment of thrombosis with Low Molecular Weight Heparin is 0.5 - 1.0 IU/mLThe recommended range for VTE prophylaxis with Low Molecular Weight Heparin is 0.2 - 0.4 IU/mL. Performed By: #### T S #### [facility] [address] [place], [address] LMW Heparin Chromogenic method Qn (PPP) 0.48 IU/mL [facility] BASIC METABOLIC PANELon 01-26 Anion gap [Moles/Vol] 7 mmol/L Low 10-20 [facility] Comment on above: Performed By: #### 8 2948 #### NURSING GLUCOSE PROGRAM [address] [place], [address] Calcium [Mass/Vol] 7.7 mg/dL Low 8.6-10.3 [facility] Comment on above: Result Comment: Note updated reference ranges. Performed By: #### 8 2948 #### NURSING GLUCOSE PROGRAM [address] [place], [address] Chloride [Moles/Vol] 101 mmol/L Normal 98-107 [facility] Comment on above: Result Comment: Note updated reference ranges. Performed By: #### 8 2948 #### NURSING GLUCOSE PROGRAM [address] [place], [address] CO2 [Moles/Vol] 33 mmol/L High 21-31 [facility] Comment on above: Result Comment: Note updated reference ranges. Performed By: #### 8 2948 #### NURSING GLUCOSE PROGRAM [address] [place], [address] Creatinine [Mass/Vol] 0.60 mg/dL Low 0.70-1.30 [facility] Comment on above: Result Comment: Note updated reference ranges. Performed By: #### 8 2948 #### NURSING GLUCOSE PROGRAM [address] [place], [address] ESTIMATED GFR (CKD-EPI) 101 mL/min/1.73sqm Normal >=60 [facility] Comment on above: Result Comment: 2020 CKD EPI Equation using Creatinine without Race Comment: Estimated glomerular filtration rate (eGFR) is calculated without a race coefficient. Values should be interpreted in the context of the patient's full clinical presentation. Reference: 1. Clayton Lilly, Lan M, Alissa DC, et al.. A Unifying Approach for GFR Estimation: Recommendations of the NKF-ASN Task Force on Reassessing the Inclusion of Race in Diagnosing Kidney Disease. [place] Journal of Kidney Diseases 202;79(2):268-88.e1. 2. N Engl J Med 1 Vol. 385 Issue 19 Pages 4694-2011 Performed By: #### 8 2948 #### NURSING GLUCOSE PROGRAM [address] [place], [address] Glucose [Mass/Vol] 105 mg/dL Normal 74-109 [facility] Comment on above: Performed By: #### 8 2948 #### NURSING GLUCOSE PROGRAM [address] [place], [address] Potassium [Moles/Vol] 3.6 mmol/L Normal 3.5-5.0 [facility] Comment on above: Result Comment: Note updated reference ranges. Note updated reference ranges. Performed By: #### 8 2948 #### NURSING GLUCOSE PROGRAM [address] [place], [address] Sodium [Moles/Vol] 137 mmol/L Normal 136-145 [facility] Comment on above: Result Comment: Note updated reference ranges. Performed By: #### 8 2948 #### NURSING GLUCOSE PROGRAM [address] [place], [address] Urea nitrogen [Mass/Vol] 23 mg/dL Normal 7-25 [facility] Comment on above: Result Comment: Note updated reference ranges. Performed By: #### 8 2948 #### NURSING GLUCOSE PROGRAM [address] [place], [address] Basic metabolic 2000 panelon 02-22-2023 Anion gap [...] [Mass/Vol] 105 mg/dL 74 - 109 mg/dL [facility] Interpretation and review of laboratory results Abnormal [facility] Potassium [Moles/Vol] 3.6 mmol/L 3.5 - 5.0 mmol/L [facility] Sodium [Moles/Vol] 137 mmol/L 136 - 145 mmol/L [facility] Urea nitrogen [Mass/Vol] 23 mg/dL 7 - 25 mg/dL [facility] CBC panel Auto (Bld)on 02-22 Erythrocyte distribution width (RBC) [Ratio] 15.4 % High 11.5 - 14.5 % [facility] Hematocrit (Bld) [Volume fraction] 23.9 % Low 41.0 - 53.0 % [facility] Hemoglobin (Bld) [Mass/Vol] 8.0 g/dL Low 13.9 - 16.3 g/dL [facility] Interpretation and review of laboratory results Abnormal [facility] MCH (RBC) [Entitic mass] 30.7 pg 26.0 - 34.0 pg [facility] MCHC (RBC) [Mass/Vol] 33.3 g/dL 32.0 - 35.9 g/dL [facility] MCV (RBC) [Entitic vol] 92 fL 80 - 100 fL [facility] Platelet mean volume (Bld) [Entitic vol] 8.7 fL 7.5 - 11.2 fL [facility] Platelets (Bld) [#/Vol] 227 10*3/uL 150 - 400 K/uL [facility] RBC (Bld) [#/Vol] 2.60 10*6/uL Low [facility] WBC (Bld) [#/Vol] 7.6 10*3/uL 4.5 - 11.5 K/uL [facility] COMPLETE BLOOD COUNTon 02-22 Erythrocyte distribution width (RBC) [Ratio] 15.4 % High 11.5-14.5 [facility] Comment on above: Performed By: #### T S #### [facility] [address], [place], Hematocrit (Bld) [Volume fraction] 23.9 % Low 41.0-53.0 [facility] Comment on above: Performed By: #### T S #### S [facility] LAB[facility] [address], [place], Hemoglobin (Bld) [Mass/Vol] 8.0 g/dL Low 13.9-16.3 [facility] Comment on above: Performed By: #### T S #### [facility] [address] [place] [address], MCH (RBC) [Entitic mass] 30.7 pg Normal 26.0-34.0 [facility] Comment on above: Performed By: #### T S #### [facility] [address] [place] [address], MCHC (RBC) [Mass/Vol] 33.3 g/dL Normal 32.0-35.9 [facility] Comment on above: Performed By: #### T S #### [facility] [address] [place] [address], MCV (RBC) [Entitic vol] 92 fL Normal 80-100 [facility] Comment on above: Performed By: #### T S #### [facility] [address] [place] [address], Platelet mean volume (Bld) [Entitic vol] 8.7 fL Normal 7.5-11.2 [facility] Comment on above: Performed By: #### T S #### S [facility] [address] [place], [place], Platelets (Bld) [#/Vol] 227 10*3/uL Normal 150-400 [facility] Comment on above: Performed By: #### T S #### S [facility] [address] [place], [place], RBC (Bld) [#/Vol] 2.60 10*6/uL Low 4.50-5.90 [facility] Comment on above: Performed By: #### T S #### [facility] [address] [place], [place], WBC (Bld) [#/Vol] 7.6 10*3/uL Normal 4.5-11.5 [facility] Comment on above: Performed By: #### T S #### [facility] [address], [place], Care Plan Noteon 02-22-2023 Reporting Analyst Authentication Interface Message Text Problem: Routine [...] and once discontinued Outcome: Progressing Normal [facility] MAGNESIUMon 02-22-2023 Magnesium [Mass/Vol] 2.0 mg/dL Normal 1.6-2.8 [facility] Comment on above: Performed By: #### 8 2948 #### NURSING GLUCOSE PROGRAM [address] [place], [address] Magnesium [Mass/Vol] 2.0 mg/dL 1.6 - 2.8 mg/dL [facility] No Panel Informationon 02-22 Interpretation and review of laboratory results Normal [facility] PHOSPHORUSon 02-22-2023 Phosphate [Mass/Vol] 2.8 mg/dL Normal 2.3-4.2 [facility] Comment on above: Performed By: #### 8 2948 #### NURSING GLUCOSE PROGRAM [address] [place], [address] Phosphate [Mass/Vol] 2.8 mg/dL 2.3 - 4.2 mg/dL [facility] BASIC METABOLIC PANELon 01-25 Anion gap [Moles/Vol] 9 mmol/L Low 10-20 [facility] Comment on above: Performed By: #### 8 2948 #### NURSING GLUCOSE PROGRAM [address] [place], [address] Calcium [Mass/Vol] 7.5 mg/dL Low 8.6-10.3 [facility] Comment on above: Result Comment: Note updated reference ranges. Performed By: #### 8 2948 #### NURSING GLUCOSE PROGRAM [address] [place], [address] Chloride [Moles/Vol] 100 mmol/L Normal 98-107 [facility] Comment on above: Result Comment: Note updated reference ranges. Performed By: #### 8 2948 #### NURSING GLUCOSE PROGRAM [address] [place], [address] CO2 [Moles/Vol] 33 mmol/L High 21-31 [facility] Comment on above: Result Comment: Note updated reference ranges. Performed By: #### 8 2948 #### NURSING GLUCOSE PROGRAM [address] [place], [address] Creatinine [Mass/Vol] 0.65 mg/dL Low 0.70-1.30 [facility] Comment on above: Result Comment: Note updated reference ranges. Performed By: #### 8 2948 #### NURSING GLUCOSE PROGRAM [address] [place], [address] ESTIMATED GFR (CKD-EPI) 99 mL/min/1.73sqm Normal >=60 [facility] Comment on above: Result Comment: 2020 [...] Inclusion of Race in Diagnosing Kidney Disease. [place] Journal of Kidney Diseases 2021;79(2):268-88.e1. 2. N Engl J Med 1 Vol. 385 Issue 19 Pages 1742-3778 Performed By: #### 8 2948 #### NURSING GLUCOSE PROGRAM [address] [place], [address] Glucose [Mass/Vol] 104 mg/dL Normal 74-109 [facility] Comment on above: Performed By: #### 8 2948 #### NURSING GLUCOSE PROGRAM [address] [place], [address] Potassium [Moles/Vol] 3.5 mmol/L Normal 3.5-5.0 [facility] Comment on above: Result Comment: Note updated reference ranges. Note updated reference ranges. Performed By: #### 8 2948 #### NURSING GLUCOSE PROGRAM [address] [place], [address] Sodium [Moles/Vol] 138 mmol/L Normal 136-145 [facility] Comment on above: Result Comment: Note updated reference ranges. Performed By: #### 8 2948 #### NURSING GLUCOSE PROGRAM [address], [place], [address] Urea nitrogen [Mass/Vol] 24 mg/dL Normal 7-25 [facility] Comment on above: Result Comment: Note updated reference ranges. Performed By: #### 8 [id number] #### NURSING GLUCOSE PROGRAM [address] [place], [address] BLOOD CULTUREon 02-21-2023 Bacteria identified Cx Nom (Bld) No Growth [facility] Interpretation and review of laboratory results [facility] 2000 panelon 02-21-2023 Anion gap [Moles/Vol] 9 mmol/L Low 10 - 20 [facility] [place] Calcium [Mass/Vol] 7.5 mg/dL Low 8.6 - 10. 3 mg/dL [facility] Chloride [Moles/Vol] 100 mmol/L 98 - 107 mmol/L [facility] CO2 [Moles/Vol] 33 mmol/L High 21 - 31 mmol/L [facility] Creatinine [Mass/Vol] 0.65 mg/dL Low 0.70 - 1.30 mg/dL [facility] GFR/1.73 sq M.predicted CKD-EPI (S/P/Bld) [Vol rate/Area] 99 - PINF [facility] Glucose [Mass/Vol] 104 mg/dL 74 - 109 mg/dL [facility] Interpretation and review of laboratory results Abnormal [facility] Potassium [Moles/Vol] 3.5 mmol/L 3.5 - 5.0 mmol/L [facility] Sodium [Moles/Vol] 138 mmol/L 136 - 145 mmol/L [facility] Urea nitrogen [Mass/Vol] 24 mg/dL 7 - 25 mg/dL [facility] CBC panel Auto (Bld)on 02-21 Erythrocyte distribution width (RBC) [Ratio] 14.5 % 11.5 - 14.5 % [facility] Hematocrit (Bld) [Volume fraction] 21.8 % Low 41.0 - 53.0 % [facility] Hemoglobin (Bld) [Mass/Vol] 7.6 g/dL Low 13.9 - 16.3 g/dL [facility] Interpretation and review of laboratory results Abnormal [facility] MCH (RBC) [Entitic mass] 31.5 pg 26.0 - 34.0 pg [facility] MCHC (RBC) [Mass/Vol] 34.6 g/dL 32.0 - 35.9 g/dL [facility] MCV (RBC) [Entitic vol] 91 fL 80 - 100 fL [facility] Platelet mean volume (Bld) [Entitic vol] 8.3 fL 7.5 - 11.2 fL [facility] Platelets (Bld) [#/Vol] 199 10*3/uL 150 - 400 K/uL [facility] RBC (Bld) [#/Vol] 2.40 10*6/uL Low [facility] WBC (Bld) [#/Vol] 9.6 10*3/uL 4.5 - 11.5 K/uL [facility] COMPLETE BLOOD COUNTon 02-21 Erythrocyte distribution width (RBC) [Ratio] 14.5 % Normal 11.5-14.5 [facility] Comment on above: Performed By: #### T S #### [facility] [address] [place] [address], Hematocrit (Bld) [Volume fraction] 21.8 % Low 41.0-53.0 [facility] Comment on above: Performed By: #### T S #### [facility] [address] [place] [address], Hemoglobin (Bld) [Mass/Vol] 7.6 g/dL Low 13.9-16.3 [facility] Comment on above: Performed By: #### T S #### [facility] [address] [place] [address], MCH (RBC) [Entitic mass] 31.5 pg Normal 26.0-34.0 [facility] Comment on above: Performed By: #### T S #### [facility] [address] [place] [address], MCHC (RBC) [Mass/Vol] 34.6 g/dL Normal 32.0-35.9 [facility] Comment on above: Performed By: #### T S #### [facility] [address] [place] [address], MCV (RBC) [Entitic vol] 91 fL Normal 80-100 [facility] Comment on above: Performed By: #### T S #### [facility] [address] [place] [address], Platelet mean volume (Bld) [Entitic vol] 8.3 fL Normal 7.5-11.2 [facility] Comment on above: Performed By: #### T S #### S PATHOLOGY LABORATORY [address] [place] [address], Platelets (Bld) [#/Vol] 199 10*3/uL Normal 150-400 [facility] Comment on above: Performed By: #### T S #### [facility] [address], [place], RBC (Bld) [#/Vol] 2.40 10*6/uL Low 4.50-5.90 [facility] Comment on above: Performed By: #### T S #### [facility] [address], [place], WBC (Bld) [#/Vol] 9.6 10*3/uL Normal 4.5-11.5 [facility] Comment on above: Performed By: #### T S #### S [facility] LABORATORY [address], [place], Care Plan Noteon 02-21-2023 Reporting Analyst Authentication Interface Message Text Problem: Routine [...] and once discontinued Outcome: Progressing Normal [facility] GLUCOSE, FINGERSTICK-IN OFFI CEon 02-21-2023 Glucose [Mass/Vol] 144 mg/dL High 80-116 [facility] Comment on above: Performed By: #### [id number] #### NURSING GLUCOSE PROGRAM [address] [place], [address] Glucose [Mass/Vol] 144 mg/dL High 80 - 116 mg/dL [facility] Interpretation and review of laboratory results Abnormal [facility] MAGNESIUMon 02-21-2023 Magnesium [Mass/Vol] 1.9 mg/dL Normal 1.6-2.8 [facility] Comment on above: Performed By: #### T S #### S PATHOLOG[facility] LABORATORY [address] [place] [address], [id number] Magnesium [Mass/Vol] 1.9 mg/dL 1.6 - 2.8 mg/dL [facility] No Panel Informationon 02-21 Interpretation and review of laboratory results Normal [facility] PHOSPHORUSon 02-21-2023 Phosphate [Mass/Vol] 2.3 mg/dL Normal 2.3-4.2 [facility] Comment on above: Performed By: #### T S #### [facility] [address] [place], [address] Phosphate [Mass/Vol] 2.3 mg/dL 2.3 - 4.2 mg/dL [facility] Procedureson 02-21-2023 Reporting Analyst Authentication Interface Message Text Upper Extremities Venous Duplex [address] [place], [place] [address] Status:Open Demographics Patient name: JUAN Leung Gender: Male Date of : 1950 Age: 72 year(s) Procedure Information Procedure date: 02/21/2023 2:15 PM Procedure type: Vascular Proc. sub type: Veins, Upper Extremities Veins, LIMITED DUPLEX VEIN SCAN UE Accession no: [id number] Patient status: Routine Study location: Portable Technical quality: Poor visualization Limitation reason: Poor acoustical window Procedure Staff Referring Physician: SUKHWINDER BRIAN Kiln Cleaner: RICKEY NúñezT Interpreting physician: NATAN Ceja MD Indications Pain, edema, discoloration. Risk Factors Additional comments: No significant history Page 1/ JUAN Leung 1950 [id number] 02/21/2023 2:15 PM Upper Extremities Venous Duplex [...] upper extremity and internal jugular vein. Page 2/ JUAN Leung 1950 [id number] 02/21/2023 2:15 PM Invalid Interpretation Code [facility] Progress Noteson 02-21-2023 Reporting Analyst Authentication Interface Message Text Preliminary Vascular Lab Report Duplex Left Upper Extremity Vein Scan No evidence deep vein thrombus left upper extremity, official to follow report to follow. Masoud Castañeda RVT Normal [facility] Reporting Analyst Authentication Interface Message Text Pt is rec for SNF Pt was denied from [facility] due to no available bed. Ruben will like updates Friday before deciding to clinically accept. Pt is still pending med readiness Pt will not need precert SW will continue to follow Aj BRASHER,NURSING INFORMATICS SPECIALIST Normal [facility] Reporting Analyst Authentication Interface Message Text At 19:40 [...] baseline. Will continue to monitor. Normal [facility] URINALYSIS WITH REFLEX CULTU RE PERFORMABLEon [...] ASIA Freitas, PHOS #### S PATHOLOGY LABORATORY [address] [place] [address], Protein (U) [Mass/Vol] 30 mg/dL Abnormal Negative [facility] Comment on above: Order Comment: A [...] Meredith CH8, PHOS #### [facility] [address] [place] [address], U APPEAR Clear Normal Clear [facility] [...] Meredith CH8, PHOS #### [facility] [address] [place] [address], U BILI Negative Normal Negative [facility] Comment on above: Order Comment: A [...] Meredith CH8, PHOS #### S [facility] LAB[facility]ORY [address] [place] [address], U BLOOD Negative Normal Negative [facility] Comment on above: Order Comment: A [...] Meredith, CH8, PHOS #### [facility] [address] [place] [address], U COLOR Yellow Normal Colorless [facility] Comment on above: Order Comment: A [...] Meredith CH8, PHOS #### [facility] [address] [place] [address], U KETONE Negative Normal Negative [facility] Comment on above: Order Comment: A [...] Meredith CH8, PHOS #### S [facility] LAB[facility] [address] [place] [address], U LEUK Negative Normal Negative [facility] Comment on above: Order Comment: A [...] CH8, PHOS #### [facility] [address], [place], U MUCOUS Present Normal [facility] Comment on above: Order Comment: A [...] CH8, PHOS #### S [facility] LAB[facility] [address], [place], U NITRITE Negative Normal Negative [facility] Comment on above: Order Comment: A [...] CH8, PHOS #### S PATH[facility] LABORATORY [address], [place], U PH 6.5 Normal 5.0-8.0 [facility] Comment on above: Order Comment: A [...] CH8, PHOS #### [facility] [address], [place], U RBC 3-5 Abnormal 0-2 [facility] Comment on above: Order Comment: A [...] ASIA Freitas, PHOS #### S PATH[facility] LABORATORY [address] [place] [address], U SG 1.026 Normal <=1.030 [facility] Comment on above: Order Comment: A [...] ASIA Freitas, PHOS #### S [facility] LAB[facility] [address] [place] [address], U UROBILI 2.0 mg/dL Abnormal Negative [facility] Comment on above: Order Comment: A [...] Freitas, PHOS #### S PATH[facility] LAB[facility] [address], [place], U WBC 3-5 Abnormal 0-2 [facility] Comment on above: Order Comment: A [...] G, CH8, PHOS #### [facility] [address] [place] [address], BASIC METABOLIC PANELon 12-2 -2022 Anion gap [Moles/Vol] 12 mmol/L Normal 10-20 [facility] Comment on above: Performed By: #### C BC #### S PATHOLOG[facility] LABORATORY [address] [place] [address], Calcium [Mass/Vol] 7.5 mg/dL Low 8.6-10.3 [facility] Comment on above: Result Comment: Note updated reference ranges. Performed By: #### C BC #### [facility] [address] [place] [address], Chloride [Moles/Vol] 99 mmol/L Normal 98-107 [facility] Comment on above: Result Comment: Note updated reference ranges. Performed By: #### C BC #### [facility] [address] [place] [address], CO2 [Moles/Vol] 29 mmol/L Normal 21-31 [facility] Comment on above: Result Comment: Note updated reference ranges. Performed By: #### C BC #### [facility] [address] [place] [address], Creatinine [Mass/Vol] 0.81 mg/dL Normal 0.70-1.30 [facility] Comment on above: Result Comment: Note updated reference ranges. Performed By: #### C BC #### [facility] [address] [place] [address], ESTIMATED GFR (CKD-EPI) 93 mL/min/1.73sqm Normal >=60 [facility] Comment on above: Result Comment: 2020 [...] Inclusion of Race in Diagnosing Kidney Disease. [place] Journal of Kidney Diseases 2021;79(2):268-88.e1. 2. N Engl J Med 1 Vol. 385 Issue 19 Pages 5933-5584 Performed By: #### C BC #### S [facility] [address] [place], [place], Glucose [Mass/Vol] 126 mg/dL High 74-109 [facility] Comment on above: Performed By: #### C BC #### S [facility] LAB[facility] [address] [place] [address], Potassium [Moles/Vol] 3.3 mmol/L Low 3.5-5.0 [facility] Comment on above: Result Comment: Note updated reference ranges. Note updated reference ranges. Performed By: #### C BC #### S [facility] [address] [place], [place], Sodium [Moles/Vol] 137 mmol/L Normal 136-145 [facility] Comment on above: Result Comment: Note updated reference ranges. Performed By: #### C BC #### [facility] [address] [place] [address], Urea nitrogen [Mass/Vol] 26 mg/dL High 7-25 [facility] Comment on above: Result Comment: Note updated reference ranges. Performed By: #### C BC #### [facility] [address] [place], [place], Anion gap [Moles/Vol] 10 mmol/L Normal 10-20 [facility] Comment on above: Performed By: #### M G, CH8, PHOS #### [facility] [address], [place], Calcium [Mass/Vol] 7.9 mg/dL Low 8.6-10.3 [facility] Comment on above: Result Comment: Note updated reference ranges. Performed By: #### ASIA Freitas, PHOS #### [facility] [address] [place] [address], Chloride [Moles/Vol] 102 mmol/L Normal 98-107 [facility] Comment on above: Result Comment: Note updated reference ranges. Performed By: #### ASIA Freitas, PHOS #### [facility] [address], [place], CO2 [Moles/Vol] 30 mmol/L Normal 21-31 [facility] Comment on above: Result Comment: Note updated reference ranges. Performed By: #### ASIA Freitas, PHOS #### [facility] [address] [place] [address], Creatinine [Mass/Vol] 0.79 mg/dL Normal 0.70-1.30 [facility] Comment on above: Result Comment: Note updated reference ranges. Performed By: #### ASIA Freitas, PHOS #### [facility] [address], [place], ESTIMATED GFR (CKD-EPI) 93 mL/min/1.73sqm Normal >=60 [facility] Comment on above: Result Comment: 2020 [...] Inclusion of Race in Diagnosing Kidney Disease. [place] Journal of Kidney Diseases 2021;79(2):268-88.e1. 2. N Engl J Med 1 Vol. 385 Issue 19 Pages 9212-9602 Performed By: #### ASIA Freitas, PHOS #### [facility] [address] [place], [place], Glucose [Mass/Vol] 139 mg/dL High 74-109 [facility] Comment on above: Performed By: #### ASIA Freitas, FAVIOLAS #### [facility] [address], [place], Potassium [Moles/Vol] 3.7 mmol/L Normal 3.5-5.0 [facility] Comment on above: Result Comment: Note updated reference ranges. Note updated reference ranges. Performed By: #### ASIA Freitas, PHOS #### [facility] [address], [place], Sodium [Moles/Vol] 138 mmol/L Normal 136-145 [facility] Comment on above: Result Comment: Note updated reference ranges. Performed By: #### ASIA Freitas, PHOS #### [facility] [address], [place], Urea nitrogen [Mass/Vol] 23 mg/dL Normal 7-25 [facility] Comment on above: Result Comment: Note updated reference ranges. Performed By: #### ASIA Freitas, FAVIOLAS #### S PATHOLOG[facility] LABOR[facility]ORY [address], [place], Basic metabolic 2000 panelon 02-20-2023 Anion gap [Moles/Vol] 12 mmol/L 10 - 20 [facility] [place] Calcium [Mass/Vol] 7.5 mg/dL Low 8.6 - 10. 3 mg/dL [facility] Chloride [Moles/Vol] 99 mmol/L 98 - 107 mmol/L [facility] CO2 [Moles/Vol] 29 mmol/L 21 - 31 mmol/L [facility] Creatinine [Mass/Vol] 0.81 mg/dL 0.70 - 1.30 mg/dL [facility] GFR/1.73 sq M.predicted CKD-EPI (S/P/Bld) [Vol rate/Area] 93 - PINF [facility] Glucose [Mass/Vol] 126 mg/dL High 74 - 109 mg/dL [facility] Interpretation and review of laboratory results Abnormal [facility] Potassium [Moles/Vol] 3.3 mmol/L Low 3.5 - 5.0 mmol/L [facility] Sodium [Moles/Vol] 137 mmol/L 136 - 145 mmol/L [facility] Urea nitrogen [Mass/Vol] 26 mg/dL High 7 - 25 mg/dL [facility] Anion gap [Moles/Vol] 10 mmol/L 10 - 20 [facility] [place] Calcium [Mass/Vol] 7.9 mg/dL Low 8.6 - 10. 3 mg/dL [facility] Chloride [Moles/Vol] 102 mmol/L 98 - 107 mmol/L [facility] CO2 [Moles/Vol] 30 mmol/L 21 - 31 mmol/L [facility] Creatinine [Mass/Vol] 0.79 mg/dL 0.70 - 1.30 mg/dL [facility] GFR/1.73 sq M.predicted CKD-EPI (S/P/Bld) [Vol rate/Area] 93 - PINF [facility] Glucose [Mass/Vol] 139 mg/dL High 74 - 109 mg/dL [facility] Potassium [Moles/Vol] 3.7 mmol/L 3.5 - 5.0 [...] 9.1 10*3/uL 4.5 - 11.5 K/uL [facility] CBC panel Auto (Bld)Ordered By: Carina Reeves on 02-20-2023 Erythrocyte distribution width (RBC) [Ratio] 14.4 % 11.5 - 14.5 % [facility] Hematocrit (Bld) [Volume fraction] 22.8 % Low 41.0 - 53.0 % [facility] Hemoglobin (Bld) [Mass/Vol] 7.8 g/dL Low 13.9 - 16.3 g/dL [facility] Interpretation and review of laboratory results Abnormal [facility] MCH (RBC) [Entitic mass] 31.0 pg 26.0 - 34.0 pg [facility] MCHC (RBC) [Mass/Vol] 34.4 g/dL 32.0 - 35.9 g/dL [facility] MCV (RBC) [Entitic vol] 90 fL 80 - 100 fL [facility] Platelet mean volume (Bld) [Entitic vol] 9.0 fL 7.5 - 11.2 fL [facility] Platelets (Bld) [#/Vol] 159 10*3/uL 150 - 400 K/uL [facility] RBC (Bld) [#/Vol] 2.53 10*6/uL Low [facility] WBC (Bld) [#/Vol] 8.7 10*3/uL 4.5 - 11.5 K/uL [facility] COMPLETE BLOOD COUNTon 02-20 Erythrocyte distribution width (RBC) [Ratio] 14.7 % High 11.5-14.5 [facility] Comment on above: Performed By: #### T S #### S [facility] LABORATORY [address] [place] [address], Hematocrit (Bld) [Volume fraction] 23.3 % Low 41.0-53.0 [facility] Comment on above: Performed By: #### T S #### [facility] [address] [place] [address], Hemoglobin (Bld) [Mass/Vol] 7.7 g/dL Low 13.9-16.3 [facility] Comment on above: Performed By: #### T S #### [facility] [address] [place] [address], MCH (RBC) [Entitic mass] 30.2 pg Normal 26.0-34.0 [facility] Comment on above: Performed By: #### T S #### [facility] [address] [place] [address], MCHC (RBC) [Mass/Vol] 33.2 g/dL Normal 32.0-35.9 [facility] Comment on above: Performed By: #### T S #### [facility] [address] [place] [address], MCV (RBC) [Entitic vol] 91 fL Normal 80-100 [facility] Comment on above: Performed By: #### T S #### [facility] [address] [place] [address], Platelet mean volume (Bld) [Entitic vol] 8.5 fL Normal 7.5-11.2 [facility] Comment on above: Performed By: #### T S #### [facility] [address] [place] [address], Platelets (Bld) [#/Vol] 192 10*3/uL Normal 150-400 [facility] Comment on above: Performed By: #### T S #### [facility] [address] [place] [address], RBC (Bld) [#/Vol] 2.56 10*6/uL Low 4.50-5.90 [facility] Comment on above: Performed By: #### T S #### [facility] [address] [place] [address], WBC (Bld) [#/Vol] 9.1 10*3/uL Normal 4.5-11.5 [facility] Comment on above: Performed By: #### T S #### [facility] [address] [place] [address], Erythrocyte distribution width (RBC) [Ratio] 14.4 % Normal 11.5-14.5 [facility] Comment on above: Performed By: #### C BC #### [facility] [address] [place] [address], Hematocrit (Bld) [Volume fraction] 22.8 % Low 41.0-53.0 [facility] Comment on above: Performed By: #### C BC #### [facility] [address] [place] [address], Hemoglobin (Bld) [Mass/Vol] 7.8 g/dL Low 13.9-16.3 [facility] Comment on above: Performed By: #### C BC #### [facility] [address] [place] [address], MCH (RBC) [Entitic mass] 31.0 pg Normal 26.0-34.0 [facility] Comment on above: Performed By: #### C BC #### [facility] [address] [place] [address], MCHC (RBC) [Mass/Vol] 34.4 g/dL Normal 32.0-35.9 [facility] Comment on above: Performed By: #### C BC #### [facility] [address] [place] [address], MCV (RBC) [Entitic vol] 90 fL Normal 80-100 [facility] Comment on above: Performed By: #### C BC #### [facility] [address] [place] [address], Platelet mean volume (Bld) [Entitic vol] 9.0 fL Normal 7.5-11.2 [facility] Comment on above: Performed By: #### C BC #### [facility] [address] [place] [address], Platelets (Bld) [#/Vol] 159 10*3/uL Normal 150-400 [facility] Comment on above: Performed By: #### C BC #### [facility] [address], [place], RBC (Bld) [#/Vol] 2.53 10*6/uL Low 4.50-5.90 [facility] Comment on above: Performed By: #### C BC #### [facility] [address] [place] [address], WBC (Bld) [#/Vol] 8.7 10*3/uL Normal 4.5-11.5 [facility] Comment on above: Performed By: #### C BC #### [facility] [address] [place] [address], COVID/INFLUENZAon 02-20-2023 INFLUENZA A Not detected Normal Not Detected [facility] Comment on above: Order Comment: Not D etected results are indicative of the absence of SARS-CoV-2 in the specimen submitted for testing. False negative results are possible based on the timing and quality of specimen submitted for testing. Result Comment: This assay was performed using [employer] RTPCR technology. Performed By: #### T S #### [facility] [address] [place] [address], INFLUENZA B Not detected Normal Not Detected [facility] Comment on above: Order Comment: Not D etected results are indicative of the absence of SARS-CoV-2 in the specimen submitted for testing. False negative results are possible based on the timing and quality of specimen submitted for testing. Result Comment: This assay was performed using [employer] RTPCR technology. Performed By: #### T S #### [facility] [address] [place] [address], SARS-CoV-2 (COVID-19) RNA FABI+probe Ql (Unsp spec) Not detected Normal Not Detected [facility] Comment on above: Order Comment: Not D etected results are indicative of the absence of SARS-CoV-2 in the specimen submitted for testing. False negative results are possible based on the timing and quality of specimen submitted for testing. Result Comment: This assay was performed using [employer] RT[employer] technology. Performed By: #### T S #### [facility] [address] [place] [address], COVID/INFLUENZAOrdered By: Prisca Vogel on 02-20-2023 FLUAV RNA FABI+probe Ql (Nph) Not detected Not Detected [facility] FLUBV RNA FABI+probe Ql (Nph) Not detected Not Detected [facility] Interpretation and review of laboratory results Normal [facility] SARS-CoV-2 (COVID-19) RNA FABI+probe Ql (Unsp spec) Not detected Not Detected [facility] Care Plan Noteon 02-20-2023 Reporting Analyst Authentication Interface Message Text Called to bedside to assess for left arm swelling. Does appear left arm is asymmetrically swollen compared to right. Neurovascularly intact however. Denies chest pain, sob at this time. Will order duplex RUE to r/o dvt. Kevin Barrientos, Normal [facility] Reporting Analyst Authentication Interface Message Text Noticed increased swelling and warmth on Left arm compared to earlier in shift and Right arm. Pt was also unable to be weaned off O2 as well and complains of shortness of breath at times, and cannot tolerate lying flat. Vitals unremarkable otherwise. MD application internship notified and will come bedside after trauma. Normal [facility] MAGNESIUMon 02-20-2023 Magnesium [Mass/Vol] 2.0 mg/dL Normal 1.6-2.8 [facility] Comment on above: Performed By: #### C H8, PHOS, MG ####[facility] [id number] [place], [place], Magnesium [Mass/Vol] 2.0 mg/dL 1.6 - 2.8 mg/dL [facility] Magnesium [Mass/Vol] 1.9 mg/dL Normal 1.6-2.8 [facility] Comment on above: Performed By: #### ASIA Freitas, PHOS #### [facility] [address] [place] [address], Interpretation and review of laboratory results Normal [facility] Magnesium [Mass/Vol] 1.9 mg/dL 1.6 - 2.8 mg/dL [facility] No Panel Informationon 02-20 Interpretation and review of laboratory results Normal [facility] Interpretation and review of laboratory results Abnormal [facility] PHOSPHORUSon 02-20-2023 Phosphate [Mass/Vol] 2.8 mg/dL Normal 2.3-4.2 [facility] Comment on above: Performed By: #### C H8, PHOS, MG ####[facility] [id number] [place], [place], Phosphate [Mass/Vol] 2.8 mg/dL 2.3 - 4.2 mg/dL [facility] Phosphate [Mass/Vol] 2.2 mg/dL Low 2.3-4.2 [facility] Comment on above: Performed By: #### M G, CH8, PHOS #### [facility] [address] [place] [address], [id number] Phosphate [Mass/Vol] 2.2 mg/dL Low 2.3 - 4.2 mg/dL [facility] Progress Noteson 02-20-2023 Reporting Analyst Authentication Interface Message Text [facility] 02/20/2023 Reason for Services: Follow-Up Gettering Filament Machine Operator attempted to visit with patient for follow up regarding resources and education provided and answer any questions. Patient was asleep at time of visit. Gettering Filament Machine Operator will attempt to engage with Patient and/or Family the next business day. Jess Henley Main Line: [phone] Normal [facility] Reporting Analyst Authentication Interface Message Text SW/CM aware that patient meets criteria for SNF. Met with Pt on unit to discuss dispo. Patient open and agreeable to SNF placement. CM/SW provided pt the quality and resource use measure data from available post-acute (PAC) providers, that best align with the patient's treatment goals and preferences from the medicare.gov compare site for SNF. [place] of Choice was provided to the patient/patient customer retention representative. Pt want's RAE STROUD [phone] as decision maker for dc planning SW/CM will follow up for choices. Addendum 2:06pm SW called pt's RAE STROUD [phone] she gave the following facility choices [facility] Ms. Stroud has surgery tomorrow, pt's son Anibal Stroud [phone] will be main blocker and cutter contact lens for the family. SW sent referrals SW will continue to follow Pt will not need precert Aj ANGELAA,NURSING INFORMATICS SPECIALIST Normal [facility] URINALYSIS WITH REFLEX CULTU RE PERFORMABLEon 02-20-2023 Appearance (U) Clear Clear [facility] Bilirubin Ql (U) Negative Negative [facility] Color (U) Yellow Colorless [facility] Glucose Auto test strip (U) [Mass/Vol] Negative Negative mg/dL [facility] Hemoglobin Ql (U) Negative Negative [facility] Interpretation and review of laboratory results Abnormal [facility] Ketones Ql (U) Negative Negative mg/dL [facility] Leukocyte esterase Test strip Ql (U) Negative Negative [facility] Mucus Ql (Urine sed) Present [facility] Nitrite Ql (U) Negative [facility] pH (U) 6.5 [pH] 5.0 - 8.0 [facility] Protein (U) [Mass/Vol] 30 mg/dL Abnormal Negative [facility] Specific gravity (U) [Rel density] 1.026 NINF - 1.030 [facility] Urobilinogen Qn (U) 2.0 mg/dL Abnormal Negative [facility] WBC (U) [#/Vol] 3-5 Abnormal [facility] WBC LM.HPF (Urine sed) [#/Area] 3-5 Abnormal [facility] ANTI FXA-LMW HEPARINon 02-19 ANTI FXA-LMW HEPARIN ASSAY 0.32 IU/mL Normal The [facility] System Comment on above: Order Comment: The r ecommended therapeutic range for treatment of thrombosis with Low Molecular Weight Heparin is 0.5 - 1.0 IU/mLThe recommended range for VTE prophylaxis with Low Molecular Weight Heparin is 0.2 - 0.4 IU/mL. Performed By: #### A XL ####[facility] [id number] [place], [place], LMW Heparin Chromogenic method Qn (PPP) 0.32 IU/mL [facility] BASIC METABOLIC PANELon 01-25 Anion gap [Moles/Vol] 10 mmol/L Normal 10-20 The [facility] System Comment on above: Performed By: #### Vijaya HMatt, PHOS MG ####[facility] PATH[facility] [id number] [place], [place], Calcium [Mass/Vol] 7.9 mg/dL Low 8.6-10.3 The [facility] System Comment on above: Result Comment: Note updated reference ranges. Performed By: #### C H8, PHOS, MG ####[facility] [id number] [place], [place], Chloride [Moles/Vol] 105 mmol/L Normal 98-107 The [facility] System Comment on above: Result Comment: Note updated reference ranges. Performed By: #### Vijaya HMatt PHOS, MG ####[facility] [id number] [place], [place], CO2 [Moles/Vol] 28 mmol/L Normal 21-31 [facility] Comment on above: Result Comment: Note updated reference ranges. Performed By: #### Vijaya HMatt PHOS, MG ####[facility] [id number] [place], [place], Creatinine [Mass/Vol] 0.66 mg/dL Low 0.70-1.30 [facility] Comment on above: Result Comment: Note updated reference ranges. Performed By: #### Vijaya Mendoza PHOS, MG ####[facility] [id number] [place], [place], ESTIMATED GFR (CKD-EPI) 98 mL/min/1.73sqm Normal >=60 [facility] Comment on above: Result Comment: 2020 [...] Inclusion of Race in Diagnosing Kidney Disease. Nigerien Journal of Kidney Diseases 2021;79(2):268-88.e1. 2. N Engl J Med 1 Vol. 385 Issue 19 Pages [phone] Performed By: #### Vijaya Mendoza PHOS, MG ####[facility] [id number] [place], [place], Glucose [Mass/Vol] 116 mg/dL High 74-109 [facility] Comment on above: Performed By: #### Vijaya Mendoza PHOS, MG ####[facility] [id number] [place], [place], Potassium [Moles/Vol] 4.4 mmol/L Normal 3.5-5.0 [facility] Comment on above: Result Comment: Note updated reference ranges. Note updated reference ranges. Performed By: #### C H8, PHOS, MG ####[facility] [id number] [place], [place], Sodium [Moles/Vol] 139 mmol/L Normal 136-145 The [facility] System Comment on above: Result Comment: Note updated reference ranges. Performed By: #### C H8, PHOS, MG ####[facility] [id number] [place], [place], Urea nitrogen [Mass/Vol] 19 mg/dL Normal 7-25 The [facility] System Comment on above: Result Comment: Note updated reference ranges. Performed By: #### C H8, PHOS, MG ####[facility] [id number] [place], [place], Basic metabolic 2000 panelon 02-19-2023 Anion gap [Moles/Vol] 10 mmol/L 10 - 20 [facility] Calcium [Mass/Vol] 7.9 mg/dL Low 8.6 - 10. 3 mg/dL [facility] Chloride [Moles/Vol] 105 mmol/L 98 - 107 mmol/L [facility] CO2 [Moles/Vol] 28 mmol/L 21 - 31 mmol/L [facility] Creatinine [Mass/Vol] 0.66 mg/dL Low 0.70 - 1.30 mg/dL [facility] GFR/1.73 sq M.predicted CKD-EPI (S/P/Bld) [Vol rate/Area] 98 - PINF [facility] Glucose [Mass/Vol] 116 mg/dL High 74 - 109 mg/dL [facility] Interpretation and review of laboratory results Abnormal [facility] Potassium [Moles/Vol] 4.4 mmol/L 3.5 - 5.0 mmol/L [facility] Sodium [Moles/Vol] 139 mmol/L 136 - 145 mmol/L [facility] Urea nitrogen [Mass/Vol] 19 mg/dL 7 - 25 mg/dL [facility] CBC panel Auto (Bld)on 02-19 Erythrocyte distribution width (RBC) [Ratio] 14.5 % 11.5 - 14.5 % [facility]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 left heart echo [...] 02/18/2023 08:59 AM Invalid Interpretation Code [facility] Progress Noteson 02-18-2023 Reporting Analyst Authentication Interface Message Text 72M s/p [...] Ortho Team A: Seamus Watts (Lola), PGY3: [phone] John Camp, PGY1: [phone] Ortho Team B: Kassie Coles, PGY2: [phone] Adrien Peña, PGY2: [phone] Mehran Warner, PGY4 [phone] Ortho Elective Team: Justice Mccann, PGY3: [phone] Yo Champion, PGY2: [phone] Ortho Hand Team: Scot Dean, PGY4: [phone] Douglas Worthington, PGY4: [phone] After 5pm, weekends, and holidays please page Ortho/On-call consult pager, [phone] Normal [facility] Interface Message Text [facility] 02/18/2023 Services Provide For: Patient/Family Referred By: Inpatient trauma list Services Provided by: Dubbing Machine Operator Reason for Services: Initial Visit Immediate Needs: None identified [place] Fil[employer] Machine Operator educated patient and visitors at bedside on Trauma Recovery Center and Resources. In addition, informed of [facility] Resources available when and where appropriate. [employer] Machine Operator will remain available for support. ? Jess Henley Main Line: [phone] Normal The [employer] Reporting Analyst Authentication Interface Message Text -------- GENERAL [...] R rib 9-10 fracture was seen at [facility].The patient had 5 packs of RBCs, 3 packs of FFP, 1 platelet, TXA and Vit K from when he arrived to [facility] and in transit. Patient takes coumadin. Hospital Course: 02/16-became hypotensive, concern for aspiration PNA. Central line, art line placed. On dual pressors. 02/17-weaned off pressors. party plan demonstrator attempted bedside echo. 24-hour Events: Patient weaned [...] 1.6 02/18/235 2.0 Arterial Blood Gases None --------- ASSESSMENT AND PLAN Assessment: This is a Fredrick Leung Juan [...] for OR Respiratory: Hx of COPD -respiratory clean in places operator protocol -encourage IS -goal O2 >90% [...] f (more content not included)... Normal [facility] Reporting Analyst Authentication Interface Message Text Pharmacokinetic Dosing [...] 492; Next level Due:24-36hrs, Level not ordered [facility] Pharmacokinetics Note Drug: Vancomycin Pharmacokinetic target: AUC24 (range) 400-600 mg/L.hr Current regimen: 1750 mg IV every 24 hours Fredrick Stroud is a(n) 72 years old male receiving Vancomycin 1750 mg IV every 24 hours for Pneumonia Recent measured serum creatinine values: 02/18/2023 04:15 0.62 mg/dL 02/17/2023 00:25 1 mg/dL 02/16/2023 16:59 1.38 mg/dL Assessment: Analysis of the most recent level(s) using [employer] gives the following patient-specific pharmacokinetic parameters: CL: [...] creatinine clearance: 127.3 mL/min (A) Culture(s): N/A [facility] Pharmacy Dosing Consult The medication regimen has been updated per consult agreement procedures. Pharmacy will post notes for levels upon return and for dose changes. Normal The [facility] RED BLOOD CELL COMPONENTon 1 04-21-2022 BB ORDER ITEM Product status info to follow Normal The [facility] Comment on above: Performed By: #### ASIA Fretias PHOS #### S PATHOLOGY LABORATORY [address] [place] [address], BB Order Item Product status info to follow [facility] RED BLOOD CELL UNIT STATUSon 02-18-2023 Blood product unit Nom (BPU) [ID] [id number] [facility] Blood product unit Nom (BPU) [ID] [id number] [facility] Blood product unit Nom (BPU) [ID] [id number] [facility] Blood product unit Nom (BPU) [ID] [id number] [facility] BLOOD PRODUCT CODE [id number] Normal [facility] Comment on above: Performed By: #### P T #### S PATHOLOGY LABORATORY [address] [place] [address], Performed By: ###ASIA Alas PHOS #### [facility] [address] [place] [address], Performed By: #### Coby CORREA ####S PATHOLOGY [id number] [place], [place], BLOOD PRODUCT DESCRIPTION Red Blood Cells Normal [facility] Comment on above: Performed By: #### P T #### [facility] [address] [place] [address], Performed By: #### ASIA Freitas, MIGUEL #### [facility] [address] [place], [place], Performed By: #### R MADELINE ####[facility] [id number] [place], [place], BLOOD PRODUCT STATUS Returned to Bld Bnk Normal [facility] Comment on above: Performed By: #### P T #### [facility] [address] [place] [address], Performed By: #### ASIA Freitas, MIGUEL #### [facility] [address] [place] [address], Performed By: #### Coby CORREA ####[facility] [id number] [place], [place], BLOOD PRODUCT UNIT INFO [id number] Normal [facility] Comment on above: Performed By: #### P T #### [facility] [address] [place] [address], BLOOD PRODUCT UNIT INFO [id number] Normal [facility] Comment on above: Performed By: #### ASIA Freitas, MIGUEL #### [facility] [address] [place] [address], BLOOD PRODUCT UNIT INFO [id number] Normal [facility] Comment on above: Performed By: #### Coby CORREA ####[facility] [id number] [place], [place], BLOOD PRODUCT UNIT INFO [id number] Normal [facility] Comment on above: Performed By: #### R MADELINE ####[facility] [id number] [place], [place], BLOOD PRODUCT UNIT TYPE 5100 Normal [facility] Comment on above: Result Comment: O Po s Performed By: #### P T #### [facility] [address] [place] [address], Performed By: #### ASIA Freitas, PHOS #### [facility] [address] [place], [place], Performed By: #### Coby CORREA ####[facility] [id number] [place], [place], CROSSMATCH INTERPRETATION Compatible (E) Normal [facility] Comment on above: Performed By: #### P T #### [facility] [address] [place], [place], Performed By: #### ASIA Freitas PHOS #### [facility] [address] [place], [place], Performed By: #### Coby CORREA ####S PATHOLOGY [id number] [place], [place], Transfer Documentson 023 Transfer Documents [id number] 1.00TIFF Normal [facility] VANCOMYCIN RANDOMon 02-19-20 23 VANC R 8.2 ug/mL Normal 5.0-40.0 [facility] Comment on above: Performed By: #### P T #### S PATHOLOGY LABORATORY [address] [place], [place], Vancomycin [Mass/Vol] 8.2 ug/mL 5.0 - 40.0 ug/mL [facility] BASIC METABOLIC PANELon 01-25 Anion gap [Moles/Vol] 11 mmol/L Normal 10-20 [facility] Comment on above: Performed By: #### ASIA Freitas PHOS #### S PATHOLOGY LABORATORY [address] [place], [place], Calcium [Mass/Vol] 8.3 mg/dL Low 8.6-10.3 [facility] Comment on above: Result Comment: Note updated reference ranges. Performed By: ###ASIA Alas PHOS #### [facility] [address] [place] [address], Chloride [Moles/Vol] 105 mmol/L Normal 98-107 [facility] Comment on above: Result Comment: Note updated reference ranges. Performed By: ###ASIA Alas PHOS #### [facility] [address] [place], [place], CO2 [Moles/Vol] 24 mmol/L Normal 21-31 [facility] Comment on above: Result Comment: Note updated reference ranges. Performed By: #### ASIA Freitas, PHOS #### [facility] [address] [place], [place], Creatinine [Mass/Vol] 1.00 mg/dL Normal 0.70-1.30 [facility] Comment on above: Result Comment: Note updated reference ranges. Performed By: #### ASIA Freitas, PHOS #### [facility] [address] [place], [place], ESTIMATED GFR (CKD-EPI) 79 mL/min/1.73sqm Normal >=60 [facility] Comment on above: Result Comment: 2020 [...] Inclusion of Race in Diagnosing Kidney Disease. Nigerien Journal of Kidney Diseases 2021;79(2):268-88.e1. 2. N Engl J Med 2020 Vol. 385 Issue 19 Pages 5698-2533 Performed By: #### ASIA Freitas, PHOS #### [facility] [address] [place], [place], Glucose [Mass/Vol] 189 mg/dL High 74-109 [facility] Comment on above: Performed By: #### ASIA Freitas, PHOS #### [facility] [address] [place], [place], Potassium [Moles/Vol] 4.0 mmol/L Normal 3.5-5.0 [facility] Comment on above: Result Comment: Note updated reference ranges. Note updated reference ranges. Performed By: #### ASIA Freitas, PHOS #### [facility] [address] [place], [place], Sodium [Moles/Vol] 136 mmol/L Normal 136-145 [facility] Comment on above: Result Comment: Note updated reference ranges. Performed By: #### ASIA Freitas, MIGUEL #### [facility] [address] [place] [address], Urea nitrogen [Mass/Vol] 36 mg/dL High 7-25 [facility] Comment on above: Result Comment: Note updated reference ranges. Performed By: #### ASIA Freitas PHOS #### [facility] [address] [place] [address], BLOOD GAS, ARTERIALon 2022 CR GEOVANNI -1.0 mmol/L Normal -2.0-3.0 [facility] Comment on above: Performed By: #### C BC #### S PATHOLOGY LABORATORY [address] [place] [address], CR PCO2 38.6 mm Hg Normal 35.0-45.0 [facility] Comment on above: Performed By: #### C BC #### S PATHOLOGY LABORATORY [address] [place] [address], CR PHA 7.395 Normal 7.350-7.450 [facility] Comment on above: Performed By: #### C BC #### [facility] [address] [place] [address], CR PO2 81 mm Hg Normal 80-100 [facility] Comment on above: Performed By: #### C BC #### [facility] [address] [place] [address], FIO2 (CATEGORY) 2 LPM Normal [facility] Comment on above: Performed By: #### C BC #### S PATHOLOGY LABORATORY [address] [place] [address], HCO3 (Bld) [Moles/Vol] 23 mmol/L Normal 21-28 [facility] Comment on above: Performed By: #### C BC #### [facility] [address] [place] [address], MODE Nasal Canula Normal [facility] Comment on above: Performed By: #### C BC #### [facility] [address] [place], [place], Oxygen saturation in Blood 96.1 % Normal 95.0-99.0 [facility] Comment on above: Performed By: #### C BC #### [facility] [address] [place], [place], BLOOD GAS, VENOUSon 02-18-20 CR ABEV -0.3 mmol/L Normal -2.0-3.0 [facility] Comment on above: Performed By: #### C BC #### [facility] [address] [place], [place], CR HCO3V 25 mmol/L Normal 21-28 [facility] Comment on above: Performed By: #### C BC #### [facility] [address] [place] [address], CR PHV 7.367 Normal 7.320-7.430 [facility] Comment on above: Performed By: #### C BC #### [facility] [address] [place] [address], CR PVCO2 43.8 mm Hg Normal 41.0-51.0 [facility] Comment on above: Performed By: #### C BC #### [facility] [address] [place] [address], CR PVO2 36 mm Hg Low 38-44 [facility] Comment on above: Performed By: #### C BC #### S PATHOLOGY LABORATORY [address] [place] [address], Oxygen saturation in Blood 67.1 % Low 70.0-80.0 [facility] Comment on above: Performed By: #### C BC #### S PATHOLOGY LABORATORY [address] [place] [address], Basic metabolic 2000 panelon 02-17-2023 Anion gap [Moles/Vol] 11 mmol/L 10 - 20 [facility] [Mass/Vol] 8.3 mg/dL Low 8.6 - 10. 3 mg/dL [facility] Chloride [Moles/Vol] 105 mmol/L 98 - 107 mmol/L [facility] CO2 [Moles/Vol] 24 mmol/L 21 - 31 mmol/L [facility] Creatinine [Mass/Vol] 1.00 mg/dL 0.70 - 1.30 mg/dL [facility] GFR/1.73 sq M.predicted CKD-EPI (S/P/Bld) [Vol rate/Area] 79 - PINF [facility] Glucose [Mass/Vol] 189 mg/dL High 74 - 109 mg/dL [facility] Interpretation and review of laboratory results Abnormal [facility] Potassium [Moles/Vol] 4.0 mmol/L 3.5 - 5.0 mmol/L [facility] Sodium [Moles/Vol] 136 mmol/L 136 - 145 mmol/L [facility] Urea nitrogen [Mass/Vol] 36 mg/dL High 7 - 25 mg/dL [facility] CBC panel Auto (Bld)on 02-17 Erythrocyte distribution width (RBC) [Ratio] 14.9 % High 11.5 - 14.5 % [facility] Hematocrit (Bld) [Volume fraction] 29.5 % Low 41.0 - 53.0 % [facility] Hemoglobin (Bld) [Mass/Vol] 10.1 g/dL Low 13.9 - 16.3 g/dL [facility] Interpretation and review of laboratory results Abnormal [facility] MCH (RBC) [Entitic mass] 30.3 pg 26.0 - 34.0 pg [facility] MCHC (RBC) [Mass/Vol] 34.2 g/dL 32.0 - 35.9 g/dL [facility] MCV (RBC) [Entitic vol] 89 fL 80 - 100 fL [facility] Platelet mean volume (Bld) [Entitic vol] 8.6 fL 7.5 - 11.2 fL [facility] Platelets (Bld) [#/Vol] 145 10*3/uL Low 150 - 400 K/uL [facility] RBC (Bld) [#/Vol] 3.33 10*6/uL Low [facility] WBC (Bld) [#/Vol] 9.9 10*3/uL 4.5 - 11.5 K/uL [facility] COMPLETE BLOOD COUNTon 02-17 Erythrocyte distribution width (RBC) [Ratio] 14.9 % High 11.5-14.5 [facility] Comment on above: Performed By: #### C BC ####[facility] [id number] [place], [place], Hematocrit (Bld) [Volume fraction] 29.5 % Low 41.0-53.0 [facility] Comment on above: Performed By: #### C BC ####[facility] [id number] [place], [place], Hemoglobin (Bld) [Mass/Vol] 10.1 g/dL Low 13.9-16.3 [facility] Comment on above: Performed By: #### C BC ####[facility] [id number] [place], [place], MCH (RBC) [Entitic mass] 30.3 pg Normal 26.0-34.0 [facility] Comment on above: Performed By: #### C BC ####[facility] [id number] [place], [place], MCHC (RBC) [Mass/Vol] 34.2 g/dL Normal 32.0-35.9 [facility] Comment on above: Performed By: #### C BC ####[facility] PATH[facility] [id number] [place], [place], MCV (RBC) [Entitic vol] 89 fL Normal 80-100 [facility] Comment on above: Performed By: #### C BC ####[facility] PATH[facility] [id number] [place], [place], Platelet mean volume (Bld) [Entitic vol] 8.6 fL Normal 7.5-11.2 [facility] Comment on above: Performed By: #### C BC ####[facility] [id number] [place], [place], Platelets (Bld) [#/Vol] 145 10*3/uL Low 150-400 [facility] Comment on above: Performed By: #### C BC ####[facility] [id number] [place], [place], RBC (Bld) [#/Vol] 3.33 10*6/uL Low 4.50-5.90 [facility] Comment on above: Performed By: #### C BC ####[facility] [id number] [place], [place], WBC (Bld) [#/Vol] 9.9 10*3/uL Normal 4.5-11.5 [facility] Comment on above: Performed By: #### C BC ####[facility] [id number] [place], [place], Care Plan Noteon 02-17-2023 Reporting Analyst Authentication Interface Message Text Problem: Routine [...] will be met Outcome: Progressing Normal [facility] Consultson 02-17-2023 Reporting Analyst Authentication Interface Message Text PHYSICAL/OCCUPATIONAL THERAPY Attempted to see patient for PT/OT evals this date. Patient scheduled for OR this date for fixation of left femur fracture. Will follow up post-operative as able and medically appropriate. Sylvia Alcantara PT Normal [facility] GLUCOSE, FINGERSTICK-IN OFFI CEon 02-17-2023 Glucose [Mass/Vol] 140 mg/dL High 80-116 [facility] Comment on above: Performed By: #### 8 2948 #### NURSING GLUCOSE PROGRAM [address] [place], [address] Glucose [Mass/Vol] 140 mg/dL High 80 - 116 mg/dL [facility] Interpretation and review of laboratory results [facility]normal [facility] 02-17-2023 Magnesium [Mass/Vol] 1.7 mg/dL Normal 1.6-2.8 [facility] Comment on above: Performed By: #### C BC #### [facility] [address] [place], [place], Magnesium [Mass/Vol] 1.7 mg/dL 1.6 - 2.8 mg/dL [facility] MRSA SCREENOrdered By: Shari Ceja on 02-17-2023 Interpretation and review of laboratory results Normal [facility] MRSA isol Org specific cx Ql (Nose) No methicillin resistant Staphylococcus aureus isolated. No methicillin resistant Staphylococcus aureus isolated. [facility] No Panel Informationon 02-17 Interpretation and review of laboratory results Normal [facility] PHOSPHORUSon 02-17-2023 Phosphate [Mass/Vol] 2.6 mg/dL Normal 2.3-4.2 [facility] Comment on above: Performed By: #### C BC #### S PATHOLOGY LABORATORY [address] [place], [place], Phosphate [Mass/Vol] 2.6 mg/dL 2.3 - 4.2 mg/dL [facility] Progress Noteson 02-17-2023 Reporting Analyst Authentication Interface Message Text -------- GENERAL [...] R rib 9-10 fracture was seen at [facility].The patient had 5 packs of RBCs, 3 packs of FFP, 1 platelet, TXA and Vit K from when he arrived to [facility] and in transit. Patient takes coumadin. [...] pCO2 pO2 Sat Base Ex HCO3- A-a 02/16/23 2244 Nasal [place] 2 LPM 7.395 38.6 81 96.1 -1.0 23 24/23 2244 Nasal [place] 2 LPM IMAGING RESULTS [...] Echo pending Respiratory: Hx of COPD -respiratory clean in places operator protocol -enc (more content not included)... Normal [facility] XR CHEST AP OR PA 1 [...] Blood group O Rh(D) positive Normal [facility] Comment on above: Performed By: #### 8 2948 #### [facility] GLUCOSE PROGRAM [address] [place] [address], [address] BASIC METABOLIC PANELon 01-25 Anion gap [Moles/Vol] 14 mmol/L Normal 10-20 [facility] Comment on above: Performed By: #### C BC #### [facility] LABORATORY [address] [place] [address], Calcium [Mass/Vol] 8.3 mg/dL Low 8.6-10.3 [facility] Comment on above: Result Comment: Note updated reference ranges. Performed By: #### C BC #### [facility] LABORATORY [address] [place] [address], Chloride [Moles/Vol] 109 mmol/L High 98-107 [facility] Comment on above: Result Comment: Note updated reference ranges. Performed By: #### C BC #### [facility] LABORATORY [address] [place] [address], CO2 [Moles/Vol] 20 mmol/L Low 21-31 [facility] Comment on above: Result Comment: Note updated reference ranges. Performed By: #### C BC #### [facility] PATH[facility] LABORATORY [address] [place] [address], Creatinine [Mass/Vol] 1.38 mg/dL High 0.70-1.30 [facility] Comment on above: Result Comment: Note updated reference ranges. Performed By: #### C BC #### [facility] PATH[facility] LABORATORY [address] [place] [address], ESTIMATED GFR (CKD-EPI) 54 mL/min/1.73sqm Low >=60 [...] Inclusion of Race in Diagnosing Kidney Disease. [place] Journal of Kidney Diseases 202;79(2):268-88.e1. 2. N Engl J Med 1 Vol. 385 Issue 19 Pages 8731-5178 Performed By: #### C BC #### [facility] [address] [place] [address], Glucose [Mass/Vol] 171 mg/dL High 74-109 [facility] Comment on above: Performed By: #### C BC #### S PATHOLOGY LABORATORY [address] [place] [address], Potassium [Moles/Vol] 4.5 mmol/L Normal 3.5-5.0 [facility] Comment on above: Result Comment: Note updated reference ranges. Note updated reference ranges. Performed By: #### C BC #### S PATHOLOGY LABORATORY [address] [place] [address], Sodium [Moles/Vol] 138 mmol/L Normal 136-145 [facility] Comment on above: Result Comment: Note updated reference ranges. Performed By: #### C BC #### S PATHOLOGY LABORATORY [address] [place] [address], Urea nitrogen [Mass/Vol] 38 mg/dL High 7-25 [facility] Comment on above: Result Comment: Note updated reference ranges. Performed By: #### C BC #### S PATHOLOGY LABORATORY [address] [place] [address], Anion gap [Moles/Vol] 13 mmol/L Normal 10-20 [facility] Comment on above: Performed By: #### C BC #### [facility] [address] [place] [address], Calcium [Mass/Vol] 9.8 mg/dL Normal 8.6-10.3 [facility] Comment on above: Result Comment: Note updated reference ranges. Performed By: #### C BC #### S PATHOLOGY LABORATORY [address] [place], [place], Chloride [Moles/Vol] 111 mmol/L High 98-107 [facility] Comment on above: Result Comment: Note updated reference ranges. Performed By: #### C BC #### S PATHOLOGY LABORATORY [address] [place], [place], CO2 [Moles/Vol] 25 mmol/L Normal 21-31 [facility] Comment on above: Result Comment: Note updated reference ranges. Performed By: #### C BC #### [facility]ORATORY [address] [place], [place], Creatinine [Mass/Vol] 1.12 mg/dL Normal 0.70-1.30 [facility] Comment on above: Result Comment: Note updated reference ranges. Performed By: #### C BC #### S PATHOLOGY LABORATORY [address] [place], [place], ESTIMATED GFR (CKD-EPI) 69 mL/min/1.73sqm Normal [...] Inclusion of Race in Diagnosing Kidney Disease. [place] Journal of Kidney Diseases 2021;79(2):268-88.e1. 2. N Engl J Med 1 Vol. 385 Issue 19 Pages 3093-6512 Performed By: #### C BC #### S PATHOLOGY LABORATORY [address] [place], [place], Glucose [Mass/Vol] 130 mg/dL High 74-109 [facility] Comment on above: Performed By: #### C BC #### S PATHOLOGY LABORATORY [address] [place], [address] Potassium [Moles/Vol] 5.3 mmol/L High 3.5-5.0 [facility] Comment on above: Result Comment: Note updated reference ranges. Note updated reference ranges. Performed By: #### C BC #### [facility] [address] [place], [address] Sodium [Moles/Vol] 144 mmol/L Normal 136-145 [facility] Comment on above: Result Comment: Note updated reference ranges. Performed By: #### C BC #### [facility] [address] [place], [address] Urea nitrogen [Mass/Vol] 27 mg/dL High 7-25 [facility] Comment on above: Result Comment: Note updated reference ranges. Performed By: #### C BC #### S PATHOLOGY LABORATORY [address] [place], [address] Anion gap [Moles/Vol] 12 mmol/L Normal 10-20 [facility] Comment on above: Performed By: #### 8 2948 #### NURSING GLUCOSE PROGRAM [address] [place], [address] Calcium [Mass/Vol] 10.2 mg/dL Normal 8.6-10.3 [facility] Comment on above: Result Comment: Note updated reference ranges. Performed By: #### 8 2948 #### NURSING GLUCOSE PROGRAM [address] [place], [address] Chloride [Moles/Vol] 108 mmol/L High 98-107 [facility] Comment on above: Result Comment: Note updated reference ranges. Performed By: #### 8 2948 #### NURSING GLUCOSE PROGRAM [address] [place], [address] CO2 [Moles/Vol] 28 mmol/L Normal 21-31 [facility] Comment on above: Result Comment: Note updated reference ranges. Performed By: #### 8 2948 #### NURSING GLUCOSE PROGRAM [address] [place], [address] Creatinine [Mass/Vol] 1.02 mg/dL Normal 0.70-1.30 [facility] Comment on above: Result Comment: Note updated reference ranges. Performed By: #### 8 2948 #### NURSING GLUCOSE PROGRAM [address] [facility] [place], [address] ESTIMATED GFR (CKD-EPI) 77 mL/min/1.73sqm Normal >=60 [...] Inclusion of Race in Diagnosing Kidney Disease. [place] Journal of Kidney Diseases 2021;79(2):268-88.e1. 2. N Engl J Med 1 Vol. 385 Issue 19 Pages 8400-8678 Performed By: #### 8 2948 #### NURSING GLUCOSE PROGRAM [address] [place], [address] Glucose [Mass/Vol] 125 mg/dL High 74-109 [facility] Comment on above: Performed By: #### 8 2948 #### NURSING GLUCOSE PROGRAM [address] [place], [address] Potassium [Moles/Vol] 4.5 mmol/L Normal 3.5-5.0 [facility] Comment on above: Result Comment: Note updated reference ranges. Note updated reference ranges. Performed By: #### 8 2948 #### NURSING GLUCOSE PROGRAM [address] [place], [address] Sodium [Moles/Vol] 143 mmol/L Normal 136-145 [facility] Comment on above: Result Comment: Note updated reference ranges. Performed By: #### 8 2948 #### NURSING GLUCOSE PROGRAM [address] [facility] [place], [address] Urea nitrogen [Mass/Vol] 25 mg/dL Normal 7-25 [facility] Comment on above: Result Comment: Note updated reference ranges. Performed By: #### 8 2948 #### NURSING GLUCOSE PROGRAM [address] [facility] [place], [address] BLOOD CULTUREon 02-16-2023 Bacteria identified Cx Nom (Bld) C BLOOD: No Growth Normal [facility] Comment on above: Performed By: #### M JUDITH Harper8, MIGUEL #### [facility] [address] [place], [address] BLOOD GAS, ARTERIALon 2022 Base excess Calc [...] [Moles/Vol] 14 mmol/L 10 - 20 [facility] [place] Calcium [Mass/Vol] 8.3 mg/dL Low 8.6 - 10. 3 mg/dL [facility] Chloride [Moles/Vol] 109 mmol/L High 98 - 107 mmol/L [facility] CO2 [Moles/Vol] 20 mmol/L Low 21 - 31 mmol/L [facility] Creatinine [Mass/Vol] 1.38 mg/dL High 0.70 - 1.30 mg/dL [facility] GFR/1.73 sq M.predicted CKD-EPI (S/P/Bld) [Vol rate/Area] 54 Low - PINF [facility] Glucose [Mass/Vol] 171 mg/dL High 74 - 109 mg/dL [facility] Interpretation and review of laboratory results Abnormal [facility] Potassium [Moles/Vol] 4.5 mmol/L 3.5 - 5.0 mmol/L [facility] Sodium [Moles/Vol] 138 mmol/L 136 - 145 mmol/L [facility] Urea nitrogen [Mass/Vol] 38 mg/dL High 7 - 25 mg/dL [facility] Anion gap [Moles/Vol] 13 mmol/L 10 - 20 [facility] [place] Calcium [Mass/Vol] 9.8 mg/dL 8.6 - 10. 3 mg/dL [facility] Chloride [Moles/Vol] 111 mmol/L High 98 - 107 mmol/L [facility] CO2 [Moles/Vol] 25 mmol/L 21 - 31 mmol/L [facility] Creatinine [Mass/Vol] 1.12 mg/dL 0.70 - 1.30 mg/dL [facility] GFR/1.73 sq M.predicted CKD-EPI (S/P/Bld) [Vol rate/Area] 69 - PINF [facility] Glucose [Mass/Vol] 130 mg/dL High 74 - 109 mg/dL [facility] Potassium [Moles/Vol] 5.3 mmol/L High 3.5 - 5.0 mmol/L [facility] Sodium [Moles/Vol] 144 mmol/L 136 - 145 mmol/L [facility] Urea nitrogen [Mass/Vol] 27 mg/dL High 7 - 25 mg/dL [facility] Blood Bank Slipon 02-16-2023 Blood Bank Slip [id number] [phone] [id number]# 1.00TIFF Normal [facility] CALCIUM, IONIZEDon 3 CR ICA 1.34 mmol/L High 1.15-1.33 [facility] Comment on above: Result Comment: This test was developed, and its performance characteristics determined by the Department of Pathology of The [facility]. It has not been cleared or approved by the FDA. This test is used for clinical purposes only. Performed By: #### C R ICA ####[facility] [id number] [place], [place], Calcium.ionized (Bld) [Moles/Vol] 1.34 mmol/L High 1.15 - 1.33 mmol/L [facility] Interpretation and review of laboratory results Abnormal [facility] CR ICA 1.24 mmol/L Normal 1.15-1.33 [facility] Comment on above: Result Comment: This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 ZRwBWWdZHN6rSL8tI3irD lnbjogbGVmdDsgdmVydGl sCEmkKDhqP675 IHRvcDsnPlBhdGllbnQgT yUeVZl0P5ClSqq2JJTxsD wcTN5wlPKvTOeoBe4qvQn zmNpzFM8gXLLj xqpuy176ZvCir0goQDKxy CDfSPecETV3E10pk8X5HS LyCNNyOCW3zNN3bU5vcAd nbjogbGVmdDsg iiAabZetGEbxQAqqV736N HRvcDsnPkJpcnRoIERhdG J7OD00FV40gAKyu1K0iPE 8K9PtXIRgzzau alzbyWG5GTVyELAcqD99G y8tcHlmEo1oDBNfHTN3RL FstQMrB6HqjX9xZeLwVNZ gPEJpV7CpuSZu HCxoP165MLjrNhJ3GPJin eVqE1FtZLTukZmhFuA4o2 K3Zz9JE3F9YN50CY07oNA ak3M6pOS1L2Ba BOYbclzztrejrWA6UYAmY LPiuR39Yl9ifRyeQl4bKL IyWQL1DHKjdSKkE6AhkP9 yOiAjMDAwMDAw I2UtxSNdGJuhT382MLunW eH0SHAyvaZpY7JfKPLduV zhSuB4f3Q8Zo2GVYk1HE8 3RS09bYIfz9O6 qNW4X6IjXDHxvumvpwoct ND3CDQcJBQigE41Qa5ueB kvQx0kBXWcCPG1HJCzjLC pA5RpzD8iEwQg GHPwLWWgS9AkfDXqUPtvV 274ZXsmRfL9MJUpwxYnV7 UkKDEumVppPoD8k3L4Mr7 RTJPrVI25PTT5 vYT2AV72FZ10P4OkYwjep GFibGU+PHRhYmxlIHdpZH RoPScxMDAlJyBzdHlsZT0 vJv9zIZQwXKKf rQovgWLfUuPof8yxMOVpE UubLQ0ctTjnK8GsxMZ4ZG Vip4r5Cw87B64tP4CjtWD +IXPrnZL0wIH0 gI2tNnShZhY9NLqjP484S zGqgMVtWqsyf7aov3krcC f2OoM8NKXeqwRunBgmHGP 9j1OrMk76K66n IHdpZHRoPSIxNSUiIHZhb Wzvfd4tiS7kFx5+PGNvbC Q7pYI3uC6sOjLxElX1RAs tV206DmYhgLRc Axjdo4hqr0wmsOi7CaGbW JRmqeGayJmqIJI4f9RoOr 44N2EftXdgn8GjIwc6hp6 2tSXku0S3fGE8 N2KcNIOkzbjcePHujZztN N9aJHHzlkfsGEHbuW4nQK GuU2s3FtFnPpB7DPbvE5U pmhH6KEEzxPYr KWgvCQB4T82iz9U7ONSqB QVwVLW8rMU7uR5phSguuc ogbGVmdDsgdmVydGljYWw bMTziO814HLJh wKtbUCIdbR4iIAQiuMJqg BrtCJ4bGWVkpjwcTvHFLb PPQPlaPMSCGfvUPFj6A5Y rBiz7JUVsyOnd JU5doLJhPLyoFl6qsEqbf ZqdFY8gZEHszlohPBVmkO 8wDTRurPPyaFuoNQ4nTFF cjalxs204OaVv ORF0YZRmzRUvP9BjbE9aL nWbNOQhHUSiZ9ZqpIVxWM qfH417WMzhKwX9QPSytqM nJ1McOWEqjRlz EdG8p9E2Rg4sWW5sNG4xS JO5RG51KA11yCRtt2G0rC E7N7YbUMJgxsyhnwlwiCW 6DDHoUWHllG77 oOJbZHypIv5yo2K1h151I YTmLZFfxI73Oo0tlQtgQB HtaGGAsL4ognxwx1bnlma gIzAwMDAwMDt0 KVo0AGHujFyzKqOmRDS7M rR0RNS2iZAaoI8jcEonwt krkW3nZgj+NzMgWWVhcnM 6B5PwTce6YMWr sJuuIZ1ffIOiYToeHx1om QtdrVhcAG9eDALnabvwVT EnmR2bKZHnjSOsdCegDL3 bKKZzdhyib067 NxLcNDY5HDLdtKMrA2Tld E2oFcWlVEBtVOLuZ3NpkA UeESioS517QNjsEyT0LPE odfYrD9JbHSPj jKzxXvW6h0S4Tu8UMSvoA Z14GH49bTNhq2H1tPE6X4 JoJYBwyacsvythqRG2ONB dKPIspM00jLAp BIyaXn9ut5V6x756HANrQ XWovK93Sw5usCdnACQqlJ EQkU2xweahi9lbifezIjM nYOAzXAq0LHl0 BYJjaPafQmOoNCB2CtZ4I TF3lFWebZ1naWlwxkkyiL 9wOyc+UeNgwVOeoC5kAB6 1MR60W0GySokd dGFibGU+PHRhYmxlIHdpZ HRoPScxMDAlJyBzdHlsZT 8uSg3dJYRqYYDcqPjpmQM vOtRsw4ijJFSh KAlaBL5akMonR8YopBZ7P ELrx2j6Um01J28gV0SyqJ A+RPAktNG4kKA7eM2vQuB hSdN4PSrdE554 YbKbsANgJuyyw9krd7ybc Zy2KeOaWGXazuGywJwtCZ K5u5YoAn84W81jJSmbOVO oPSIyMCUiIHZh ePttsz5sgX5uMp3+PGNvb PH9cCD2sT6tTfGdGcD5QK fgZ470VnUygMAlQmpiW60 tL8ZcaDR+PHRy Brg2ZBQvlFmoPJ7azJRbP QidIa6yPJQ9JtJlMrLfTK sfT6SoYDCagewlgvecdGC 4VIWnPPWtbZ20 By6mcXxhQh3oSZDcDON3S WMhpUClZ2SgmS4wQrUfHP XuTQHzN7LvoWVwEFdxA04 2OObdLcX4MNGa rwKhO7CsFHEtyPwsTzQ1c 0V8Uq7WpNamxGFjVH0fPz AuNEa8O7IeOdn4NVGpyDs oWU9seUGzDAtn Sh6kfLirjNvrNV4aGRVuc pqux136NnDhv3pdCLJsbC DoBQduZMH9H20sz7A8RRA kFGQhHTW9dJM4 fH6snYqlleysvTThmVncf nTeiPgwWEzrRQvpG278WC PscDhdNoEYUgx3O4IvUql 5JURhlTlrNN6v hRChLGzeNn1eaGdnwTqaC S8sRRQnnskcy390OuBzt7 qqPLBykYMmJMpcDNK4E05 fq2N9NIJzWLMt YOH8mXR9kI8fvRmsjgnbq GVmdDsgdmVydGljYWwtYW rcP444TJAwrNvhXi9VTit 7H7ArKly7GKZm tKydEQ1aeAJcNHtxUc7zt MicmNvkQH2mGHKtjpenb5 09BfFkj0wbLXIocZCiCLe cDWD0D98cy1R4 HGWtTXFnBBF8iGC8jT9zy GlnbjogbGVmdDsgdmVydG eyJYisDOhqV724MHWevJj nPlBheWVyOjwv dGQ+US05pc34F4HiNzcmU lm6HEFmJGT7lWV4hQ2vCQ FbIJdei5F1qZL1N8KzfiZ vja9tm8wnEWVm ZTog (more content not included)... Normal [facility] POCT PT/INRon 04-05-2022 POCT INR 1.3 High .7-1.2 [facility] Comment on above: Performed By: #### 2 [id number] #### [facility] [address] [place] [address] POCT PT 15.0 second(s) Normal 8.0-15.0 [facility] Comment on above: Performed By: #### 2 [id number] #### [facility] [address] [place] [address] POCT INR Error Invalid Interpretation Code .7-1.2 [facility] Comment on above: Performed By: #### 1 [id number], [id number] #### [facility] [address] [place] [address] POCT PT Strip Error Invalid Interpretation Code 8.0-15.0 [facility] Comment on above: Performed By: #### 1 [id number], [id number] #### [facility] [address] [place] [address] POCT INR Error Invalid Interpretation Code .7-1.2 [facility] Comment on above: Performed By: #### 1 [id number], [id number], [id number], [id number] #### [facility] [address] [place] [address] POCT PT Strip Error Invalid Interpretation Code 8.0-15.0 [facility] Comment on above: Performed By: #### 1 [id number], [id number], [id number], [id number] #### [facility] [address] [place] [address] Physician Orderon 04-01-2022 Physician Order [id number]# 1.00CD:127 Normal [facility] Consent for Treatmenton Consent for Treatment [id number]#1 .00CD:127 Normal [facility] POCT PT/INRon 03-29-2022 POCT INR 1.3 High .7-1.2 [facility] Comment on above: Performed By: #### 2 [id number] #### [facility] [address] [place] [address] POCT PT 14.2 second(s) Normal 8.0-15.0 [facility] Comment on above: Performed By: #### 2 [id number] #### [facility] [address] [place] [address] [facility] echo transthoracicon [facility] echo transthoracic [address] [address] Echocardiogram Signed Patient: Fredrick Stroud MR#: [id number] : 1950 Acct:[id number] Age/Sex: 71 / M ADM Date: 03/27/22 Loc: Room: Type: [facility] Attending Dr: Sejal Link PRIMARY CARE PROVIDER-C Ordering Provider: Sejal Link APRN Date of Service: 03/27/22/ ECH/ECH echo transthoracic: Afib. SOB. HTN. Copies to: LUCY Hankins MD, [facility] BSA: 2.2 m2 BP: 125/82 [...] mmHg Transcribed By: SCV Performed At: 03/27/22 1449 Signed By: Love Gaviria MD, [facility] 03/27/22 1557 Normal [facility] Free T4 (Free Thyroxine)on 0 03-27-2022 Free T4 [Mass/Vol] 1.01 ng/dL Normal 0.61-1.12 [facility] Comment on above: Order Comment: Reaso n for Exam Atrial fibrillation;Essential hypertension Performed By: #### C BC, CMP, HS TROP, BNP #### [facility] [address] TSH DL <= 0.005 mIU/L QnOrde red By: Sejal Link on 03-27-2022 TSH Qn 2.57 m[IU]/L 0.45-5.33 [facility] Thyroid Stimulating Hormoneo n 03-27-2022 TSH Qn 2.57 m[IU]/L Normal 0.45-5.33 [facility] Comment on above: Order Comment: Reaso n for Exam Atrial fibrillation;Essential hypertension Result Comment: PERF ORMED BY: [place] [address] PATHOLOGIST DIE REPAIRER STAMPING EYAD HOWARD M.D. Performed By: #### C BC, CMP, HS TROP, BNP #### [facility] [address] [place] [address] [place] Thyroxine (T4) free [Mass/vo lume] in Serum or PlasmaOrdered By: Sejal Link on 03-27-2022 Free T4 [Mass/Vol] 1.01 ng/dL 0.61-1.12 [facility] Triiodothyronine (T3) Freeon 03-27-2022 Triiodothyronine (T3) Free 3.17 pg/mL Normal 2.50-3.90 [facility] Comment on above: Order Comment: Reaso n for Exam Atrial fibrillation;Essential hypertension Result Comment: PERF ORMED BY: [facility] [address] [place] [address] PATHOLOGIST DIE REPAIRER STAMPING EYAD HOWARD M.D. Performed By: #### C BC, CMP, HS TROP, BNP #### [facility] [address] [place] [id number] [facility] Triiodothyronine (T3) Free [ Mass/volume] in Serum or PlasmaOrdered By: Sejal Link on 03-27-2022 Free T3 [Mass/Vol] 3.17 pg/mL 2.50-3.90 [facility] Office Visit (Cardiology)on 03-21-2022 Follow-up visit [...] Goal 2.0-3.0. Patient would like managed with [facility] Coumad[facility] clinic Follow up in 2 months [...] which include rate control with anticoagulation versus mandaeism of maintenance of sinus rhythm. After discussing [...] Signs Recorded: 21Mar2022 02:26PM Heart Rate67, Apical Qhmmpqpu906, RUE, Snrckcs252, LUE, Sitting Rovlatxkv40, RUE, Hgksnwc38, LUE, Sitting He (more content not included)... Normal [facility] Albumin [Mass/volume] in Ser um or PlasmaOrdered By: Yo Blood on 03-11-2022 Albumin [Mass/Vol] 4.1 g/dL 3.2-5.5 [facility] B-Type Natriuretic Peptideon 03-11-2022 Natriuretic peptide B (Bld) [Mass/Vol] 101.0 pg/mL High 5-100 [facility] Comment on above: Result Comment: PERF ORMED BY: [place] [address] PATHOLOGIST DIE REPAIRER STAMPING EYAD HOWARD M.D. Performed By: #### C BC, CMP, HS TROP, BNP #### [address] Basophils Auto (Bld) [#/Vol] Ordered By: Yo Blood on 03-11-2022 Basophils (Bld) [#/Vol] 0.0 10*3/uL 0.0-0.2 [facility] Basophils/100 WBC Auto (Bld) Ordered By: Yo Blood on 03-11-2022 Basophils/100 WBC (Bld) 1.1 % . [facility] COVID-19 Antigenon 3 COVID-19 Antigen [...] developed and its performance characteristic determined by [employer] and validated at [facility]. This test has not been [...] for SARS Antigen by OLY PERFORMED BY: [facility] [address] [place] [address] PATHOLOGIST DIE REPAIRER STAMPING EYAD HOWARD M.D. [facility] Comment on above: Performed By: #### C OVID-19 GERTRUDE, SOFIANEG #### [address] [address] COVID-19 SOFIAOrdered By: Buster Blood on 03-11-2022 SARS-CoV+SARS-CoV-2 (COVID-19) Ag IA.rapid Ql (Resp) Negative Negative [facility] Comment on above: This is a duplicate Gertrude SARS Antigen (OYL) result to be used for statistical tracking purpose only. Complete Blood Count Auto Di ffon 03-11-2022 Basophils (Bld) [#/Vol] 0.0 10*3/uL Normal 0.0-0.2 [facility] Comment on above: Result Comment: PERF ORMED BY: [place] [address] PATHOLOGIST DIE REPAIRER STAMPING EYAD HOWARD M.D. Performed By: #### C BC, CMP, HS TROP, BNP #### [address] Basophils/100 WBC (Bld) 1.1 % Normal . [facility] Comment on above: Performed By: #### C BC, CMP, HS TROP, BNP #### [address] Eosinophils (Bld) [#/Vol] 0.0 10*3/uL Normal 0.0-0.45 [facility] Comment on above: Performed By: #### C BC, CMP, HS TROP, BNP #### [address] Eosinophils/100 WBC (Bld) 0.4 % Normal . [facility] Comment on above: Performed By: #### C BC, CMP, HS TROP, BNP #### [address] Erythrocyte distribution width (RBC) [Ratio] 14.0 % Normal 12.0-14.8 [facility] Comment on above: Performed By: #### C BC, CMP, HS TROP, BNP #### [address] Hematocrit (Bld) [Volume fraction] 46.7 % Normal 38.8-50.0 [facility] Comment on above: Performed By: #### C BC, CMP, HS TROP, BNP #### [facility] [address] Hemoglobin (Bld) [Mass/Vol] 15.3 g/dL Normal 13.0-17.0 [facility] Comment on above: Performed By: #### C BC, CMP, HS TROP, BNP #### [facility] [address] Lymphocytes (Bld) [#/Vol] 1.1 10*3/uL Normal 1.00-4.8 [facility] Comment on above: Performed By: #### C BC, CMP, HS TROP, BNP #### [address] Lymphocytes/100 WBC (Bld) 29.0 % Normal . [facility] Comment on above: Performed By: #### C BC, CMP, HS TROP, BNP #### [address] MCH (RBC) [Entitic mass] 29.4 pg Normal 27.5-35.2 [facility] Comment on above: Performed By: #### C BC, CMP, HS TROP, BNP #### [address] MCV (RBC) [Entitic vol] 89.6 fL Normal 83.5-101 [facility] Comment on above: Performed By: #### C BC, CMP, HS TROP, BNP #### [address] Mean Corpuscular HGB Conc 32.8 g/dL Normal 32.5-35.6 [facility] Comment on above: Performed By: #### C BC, CMP, HS TROP, BNP #### [place] [address] [place] Monocytes (Bld) [#/Vol] 0.8 10*3/uL Normal 0.0-0.8 [facility] Comment on above: Performed By: #### C BC, CMP, HS TROP, BNP #### [address] Monocytes/100 WBC (Bld) 20.67 % High 0.00-20.00 [facility] Comment on above: Result Comment: For adults in ED, MDW > 20.0 may be associated with a higher risk of sepsis during the first 12 hrs of hospital admission Performed By: #### C BC, CMP, HS TROP, BNP #### [facility] [address] Monocytes/100 WBC (Bld) 20.9 % Normal . [facility] Comment on above: Performed By: #### C BC, CMP, HS TROP, BNP #### [facility] [address] Neutrophils (Bld) [#/Vol] 1.8 10*3/uL Normal 1.8-7.7 [facility] Comment on above: Performed By: #### C BC, CMP, HS TROP, BNP #### [facility] [address] Neutrophils/100 WBC (Bld) 48.6 % Normal . [facility] Comment on above: Performed By: #### C BC, CMP, HS TROP, BNP #### [facility] [address] [place] [address] [place] NRBC% 0.2 /100{WBC} Normal 0-0.5 [facility] Comment on above: Performed By: #### C BC, CMP, HS TROP, BNP #### [facility] [address] [place] [address] [place] Platelet mean volume (Bld) [Entitic vol] 8.5 fL Normal 6.6-10.1 [facility] Comment on above: Performed By: #### C BC, CMP, HS TROP, BNP #### [facility] [address] [place] [address] [place] Platelets (Bld) [#/Vol] 197 10*3/uL Normal 150-450 [facility] Comment on above: Performed By: #### C BC, CMP, HS TROP, BNP #### [facility] [address] [place] [address] [place] RBC (Bld) [#/Vol] 5.21 10*6/uL Normal 3.90-5.60 [facility] Comment on above: Performed By: #### C BC, CMP, HS TROP, BNP #### [facility] [address] [place] [address] WBC (Bld) [#/Vol] 3.7 10*3/uL Low 4.1-10.5 [facility] Comment on above: Performed By: #### C BC, CMP, HS TROP, BNP #### [address] Comprehensive Metabolic Pane rigo 03-11-2022 Albumin [Mass/Vol] 4.1 g/dL Normal 3.2-5.5 [facility] Comment on above: Performed By: #### C BC, CMP, HS TROP, BNP #### [address] Albumin/Globulin [Mass ratio] 1.5 {ratio} Normal [facility] Comment on above: Performed By: #### C BC, CMP, HS TROP, BNP #### [address] ALP [Catalytic activity/Vol] 79 U/L Normal 32-92 [facility] Comment on above: Performed By: #### C BC, CMP, HS TROP, BNP #### [address] ALT [Catalytic activity/Vol] 23 U/L Normal 10-60 [facility] Comment on above: Performed By: #### C BC, CMP, HS TROP, BNP #### [address] Anion gap [Moles/Vol] 13.7 mmol/L Normal 6.0-15.0 [facility] Comment on above: Performed By: #### C BC, CMP, HS TROP, BNP #### [address] AST [Catalytic activity/Vol] 32 U/L Normal 10-42 [facility] Comment on above: Performed By: #### C BC, CMP, HS TROP, BNP #### [facility] [address] Bilirubin [Mass/Vol] 0.6 mg/dL Normal 0.3-1.2 [facility] Comment on above: Performed By: #### C BC, CMP, HS TROP, BNP #### [facility] [address] Calcium [Mass/Vol] 9.2 mg/dL Normal 8.2-10.2 [facility] Comment on above: Performed By: #### C BC, CMP, HS TROP, BNP #### [facility] [address] Chloride [Moles/Vol] 98 mmol/L Normal 95-114 [facility] Comment on above: Performed By: #### C BC, CMP, HS TROP, BNP #### [facility] [address] CO2 [Moles/Vol] 29.0 mmol/L Normal 22.0-30.0 [facility] Comment on above: Performed By: #### C BC, CMP, HS TROP, BNP #### [facility] [address] [place] [address] [place] Creatinine [Mass/Vol] 0.86 mg/dL Normal 0.64-1.27 [facility] Comment on above: Performed By: #### C BC, CMP, HS TROP, BNP #### [facility] [address] [place] [address] [place] Creatinine Clr Calc Pharmacy 91.63 [facility] Comment on above: Result Comment: PERF ORMED BY: [place] [address] PATHOLOGIST DIE REPAIRER STAMPING EYAD HOWARD M.D. Performed By: #### C BC, CMP, HS TROP, BNP #### [facility] [address] [place] [address] Estimated GFR ( Jessica > 60 Normal [facility] Comment on above: Result Comment: GFR estimated reference range: According to KDOQI guidelines, <60 ml/min/1.73m2 is sufficient to diagnose a patient with chronic kidney disease. Performed By: #### C BC, CMP, HS TROP, BNP #### [facility] [address] Estimated GFR (Non- Am > 60 Normal [facility] Comment on above: Performed By: #### C BC, CMP, HS TROP, BNP #### [facility] [address] Globulin (S) [Mass/Vol] 2.8 g/dL Normal [facility] Comment on above: Performed By: #### C BC, CMP, HS TROP, BNP #### [facility] [address] Glucose [Mass/Vol] 91 mg/dL Normal 70-100 [facility] Comment on above: Result Comment: Twilight Glucose Reference Range is dependent on time and content of last meal. Glucose of more than 200 mg/dL in a nonstressed, ambulatory subject supports the diagnosis of Diabetes Mellitus. ADA recommended reference range Performed By: #### C BC, CMP, HS TROP, BNP #### [facility] [address] Potassium [Moles/Vol] 3.7 mmol/L Normal 3.5-5.1 [facility] Comment on above: Performed By: #### C BC, CMP, HS TROP, BNP #### [facility] [address] [place] [address] [place] Protein [Mass/Vol] 6.9 g/dL Normal 6.1-7.9 [facility] Comment on above: Performed By: #### C BC, CMP, HS TROP, BNP #### [facility] [address] [place] [address] [place] Sodium [Moles/Vol] 137 mmol/L Normal 136-146 [facility] Comment on above: Performed By: #### C BC, CMP, HS TROP, BNP #### [facility] [address] [place] [address] [place] Urea nitrogen [Mass/Vol] 10 mg/dL Normal 9-23 [facility] Comment on above: Performed By: #### C BC, CMP, HS TROP, BNP #### [facility] [address] [place] [id number] [place] Creatinine and Glomerular fi ltration rate.predicted panel (S/P/Bld)Ordered By: Yo Blood on 03-11-2022 Creatinine [Mass/Vol] 0.86 mg/dL 0.64-1.27 [facility] ECG 12 lead ECGon 03-11-2022 ECG 12 lead ECG [facility] [place] [address] Electrocardiograph Report Signed Patient: Fredrick Stroud MR#: [id number] 427 : 1950 Acct:[id number] Age/Sex: 71 / M ADM Date: 03/11/22 [...] voltage QRS Confirmed by Yo BLOOD DO ([id number]) on 03/11/2022 9:03:33 PM Referred By: Electronically Signed By:Yo BLOOD DO Transcribed By: MUS Signed By Yo Blood DO 0 03/11/222102 Normal [facility] ECG 12 lead ECG [facility] [address] [place] [id number] Electrocardiograph Report Signed Patient: Fredrick Stroud MR#: [id number] : 1950 Acct:[id number] Age/Sex: 71 / M ADM Date: 03/11/22 [...] voltage QRS Confirmed by Yo BLOOD DO ([id number]) on 03/11/2022 7:52:28 PM Referred By: Electronically Signed By:Yo BLOOD DO Transcribed By: MUS Signed By Yo Blood DO 0 03/11/221951 Normal [facility] Eosinophils Auto (Bld) [#/Vo l]Ordered By: Yo Blood on 03-11-2022 Eosinophils (Bld) [#/Vol] 0.0 10*3/uL 0.0-0.45 [facility] Eosinophils/100 WBC Auto (Bl d)Ordered By: Yo Blood on 03-11-2022 Eosinophils/100 WBC (Bld) 0.4 % . [facility] Erythrocyte distribution wid th Auto (RBC) [Ratio]Ordered By: Yo Blood on 03-11-2022 Erythrocyte distribution width (RBC) [Ratio] 14.0 % 12.0-14.8 [facility] Estimated glomerular filtrat ion rate (GFR) non- AmericanOrdered By: Yo Blood on 03-11-2022 GFR/1.73 sq M.predicted among non-blacks MDRD (S/P/Bld) [Vol rate/Area] > 60 mL/Min [facility] Globulin Calc (S) [Mass/Vol] Ordered By: Yo Blood on 03-11-2022 Globulin (S) [Mass/Vol] 2.8 g/dL [facility] Hematocrit Auto (Bld) [Volum e fraction]Ordered By: Yo Blood on 03-11-2022 Hematocrit (Bld) [Volume fraction] 46.7 % 38.8-50.0 [facility] Hemoglobin [Mass/volume] in BloodOrdered By: Yo Blood on 03-11-2022 Hemoglobin (Bld) [Mass/Vol] 15.3 g/dL 13.0-17.0 [facility] Laboratory - Chemistry and C hemistry - challengeOrdered By: Yo Blood on 03-11-2022 Natriuretic peptide B (Bld) [Mass/Vol] 101.0 pg/mL 5-100 [facility] Leukocytes [#/volume] correc vlad for nucleated erythrocytes in Blood by Automated counOrdered By: Yo Blood on 03-11-2022 WBC corrected for nucl RBC Auto (Bld) [#/Vol] 3.7 10*3/uL 4.1-10.5 [facility] Lymphocytes Auto (Bld) [#/Vo l]Ordered By: Yo Blood on 03-11-2022 Lymphocytes (Bld) [#/Vol] 1.1 10*3/uL 1.00-4.8 [facility] Lymphocytes/100 WBC Auto (Bl d)Ordered By: Yo Blood on 03-11-2022 Lymphocytes/100 WBC (Bld) 29.0 % . [facility] MCH Auto (RBC) [Entitic mass ]Ordered By: Yo Blood on 03-11-2022 MCH (RBC) [Entitic mass] 29.4 pg 27.5-35.2 [facility] MCHC Auto (RBC) [Mass/Vol]Or dered By: Yo Blood on 03-11-2022 MCHC (RBC) [Mass/Vol] 32.8 g/dL 32.5-35.6 [facility] MCV Auto (RBC) [Entitic vol] Ordered By: Yo Blood on 03-11-2022 MCV (RBC) [Entitic vol] 89.6 fL 83.5-101 [facility] Monocyte distribution width [Entitic volume] in Blood by AutomatedOrdered By: Yo Blood on 03-11-2022 Monocyte distribution width Auto (Bld) [Entitic vol] 20.67 % 0.00-20.00 [facility] Comment on above: For adults in ED, MD W > 20.0 may be associated with a higher risk of sepsis during the first 12 hrs of hospital admission Monocytes Auto (Bld) [#/Vol] Ordered By: Yo Blood on 03-11-2022 Monocytes (Bld) [#/Vol] 0.8 10*3/uL 0.0-0.8 [facility] Monocytes/100 WBC Auto (Bld) Ordered By: Yo Blood on 03-11-2022 Monocytes/100 WBC (Bld) 20.9 % . [facility] Neutrophils Auto (Bld) [#/Vo l]Ordered By: Yo Blood on 03-11-2022 Neutrophils (Bld) [#/Vol] 1.8 10*3/uL 1.8-7.7 [facility] Neutrophils/100 WBC Auto (Bl d)Ordered By: Yo Blood on 03-11-2022 Neutrophils/100 WBC (Bld) 48.6 % . [facility] No Panel InformationOrdered By: Yo Blood on 03-11-2022 SARS Antigen (LFIA) [facility] Estimated GFR () > 60 mL/Min [facility] Comment on above: GFR estimated refere nce range: According to KDOQI guidelines, <60 ml/min/1.73m2 is sufficient to diagnose a patient with chronic kidney disease. Pharmacy Creatinine Clearance (Chem 91.63 [facility] Nucleated erythrocytes [Pres ence] in Blood by Automated countOrdered By: Yo Blood on 03-11-2022 Nucleated RBC Auto Ql (Bld) 0.2 /100{WBC} 0-0.5 [facility] Platelet mean volume Auto (B ld) [Entitic vol]Ordered By: Yo Blood on 03-11-2022 Platelet mean volume (Bld) [Entitic vol] 8.5 fL 6.6-10.1 [facility] Platelets Auto (Bld) [#/Vol] Ordered By: Yo Blood on 03-11-2022 Platelets (Bld) [#/Vol] 197 10*3/uL 150-450 [facility] Protein [Mass/volume] in Ser um or PlasmaOrdered By: Yo Blood on 03-11-2022 Protein [Mass/Vol] 6.9 g/dL 6.1-7.9 [facility] RBC Auto (Bld) [#/Vol]Ordere d By: Yo Blood on 03-11-2022 RBC (Bld) [#/Vol] 5.21 10*6/uL 3.90-5.60 [facility] Serum or plasma alanine sullivan otransferase measurement without P-5'-P (enzymatic activiOrdered By: Yo Blood on 01-16-2023 ALT No additional P-5'-P [Catalytic activity/Vol] 23 U/L 10-60 [facility] Serum or plasma albumin/glob ulin mass ratioOrdered By: Yo Blood on 03-11-2022 Albumin/Globulin [Mass ratio] 1.5 {ratio} [facility] Serum or plasma alkaline faviola sphatase measurement (enzymatic activity/volume)Ordered By: Yo Blood on 03-11-2022 ALP [Catalytic activity/Vol] 79 U/L 32-92 [facility] Serum or plasma anion gap de terminationOrdered By: Yo Blood on 03-11-2022 Anion gap [Moles/Vol] 13.7 mmol/L 6.0-15.0 [facility] Serum or plasma aspartate am inotransferase measurement (enzymatic activity/volume)Ordered By: Yo Blood on 03-11-2022 AST [Catalytic activity/Vol] 32 U/L 10-42 [facility] Serum or plasma calcium echo urement (mass/volume)Ordered By: Yo Blood on 03-11-2022 Calcium [Mass/Vol] 9.2 mg/dL 8.2-10.2 [facility] Serum or plasma chloride tessie surement (moles/volume)Ordered By: Yo Blood on 03-11-2022 Chloride [Moles/Vol] 98 mmol/L 95-114 [facility] Serum or plasma glucose echo urement (mass/volume)Ordered By: Yo Blood on 03-11-2022 Glucose [Mass/Vol] 91 mg/dL 70-100 [facility] Comment on above: ADA recommended refe rence rangeRandom Glucose Reference Range is dependent on time and content of last meal. Glucose of more than 200 mg/dL in a nonstressed, ambulatory subject supports the diagnosis of Diabetes Mellitus. Serum or plasma potassium me asurement (moles/volume)Ordered By: Yo Blood on 03-11-2022 Potassium [Moles/Vol] 3.7 mmol/L 3.5-5.1 [facility] Serum or plasma sodium measu rement (moles/volume)Ordered By: Yo Blood on 03-11-2022 Sodium [Moles/Vol] 137 mmol/L 136-146 [facility] Serum or plasma total biliru bin measurement (mass/volume)Ordered By: Yo Blood on 03-11-2022 Bilirubin [Mass/Vol] 0.6 mg/dL 0.3-1.2 [facility] Serum or plasma total carbon dioxide measurement (moles/volume)Ordered By: Yo Blood on 03-11-2022 CO2 [Moles/Vol] 29.0 mmol/L 22.0-30.0 [facility] Serum or plasma urea nitroge n measurement (mass/volume)Ordered By: Yo Blood on 03-11-2022 Urea nitrogen [Mass/Vol] 10 mg/dL 11-16 [facility] Gertrude Ag Negativeon 03-11-19 Gertrude Ag Negative Negative Normal Negative [facility] Comment on above: Result Comment: This is a duplicate Gertrude SARS Antigen (OLY) result to be used for statistical tracking purpose only. PERFORMED BY: [place] [address] PATHOLOGIST DIE REPAIRER STAMPING EYAD HOWARD M.D. Performed By: #### C OVID-19 GERTRUDE, SOFIANEG #### [facility] [address] [place] [address] [place] Troponin I High Sensitivityo n 03-11-2022 Troponin I High Sensitivity 9 pg/mL Normal 0-20 [facility] Comment on above: Result Comment: PERF ORMED BY: [place] [address] PATHOLOGIST DIE REPAIRER STAMPING EYAD HOWARD M.D. Performed By: #### C BC, CMP, HS TROP, BNP #### [facility] [address] [place] [address] [place] Troponin I.cardiac [Mass/vol ume] in Serum or Plasma by High sensitivity methodOrdered By: Yo Blood on 03-11-2022 Troponin I.cardiac High sensitivity method [Mass/Vol] 9 pg/mL 0-20 [facility] WBC Auto (Bld) [#/Vol]Ordere d By: Yo Blood on 03-11-2022 WBC (Bld) [#/Vol] 3.7 10*3/uL 4.1-10.5 [facility] XR chest 2V*on 03-11-2022 XR chest 2V* [facility] Main [address] [address] XRay Report Signed Patient: Fredrick Stroud MR#: [id number] 427 : 1950 Acct:[id number] Age/Sex: 71 / M ADM Date: 03/11/22 [...] Ga Dorsey M.D.03/11/2022 1:42 PM Dictation Location: [place] [address] Transcribed By: [facility] 03/11/22 1342 Dictated By: Ga Dorsey II, MD 03/11/22 1339 Signed By: 03/11/22 1342 Normal [facility] XR hip LT min 2V(w/wo pelvis )*on 09-26-2021 XR hip LT min 2V(w/wo pelvis)* [facility] Main [address] [address] XRay Report Signed Patient: Fredrick Stroud MR#: [id number] 427 : 1950 Acct:[id number] Age/Sex: 70 / M ADM Date: 09/26/21 Loc: SOXD Room: Type: REG CLI Attending Dr: Shahriar Dhillon II, MD [...] Ariana Tanner M.D.09/26/2021 3:27 PM Dictation Location: [place] [address] Transcribed By: [facility] 09/26/21 152 Dictated By: Ariana Tanner MD 09/26/21 1526 Signed By: 09/26/21 1527 Normal [facility] XR hip LT min 2V(w/wo pelvis )*on 08-15-2021 XR hip LT min 2V(w/wo pelvis)* [facility] Main [place] [address] [place] [address] XRay Report Signed Patient: Fredrick Stroud MR#: [id number] 427 : 1950 Acct:[id number] Age/Sex: 70 / M ADM Date: 08/15/21 Loc: [facility] Room: Type: [facility] Attending Dr: Shahriar Dhillon II, MD Copies [...] COMPLICATION. Impression dictated by: Dandy Stevenson Jr., DDreODre08/15/2021 2:40 PM Dictation Location: RADIO-PC-13 Transcribed By: PWS 08/15/21 1440 Dictated By: Dandy Stevenson Jr, DO 08/15/21 1439 Signed By: 08/15/21 1440 Normal [facility] XR hip LT min 2V(w/wo pelvis)* [facility] [email or web address] Other XR hip LT min 2V(w/wo pelvis)* [facility] Main [place] [employer] Other XR hip LT min 2V(w/wo pelvis)* [address] [place] [address] [employer] Other XR hip LT min 2V(w/wo pelvis)* [place] [address] [employer] Other XR hip LT min 2V(w/wo pelvis)* XRay Report [employer] Other XR hip LT min 2V(w/wo pelvis)* Signed [employer] Other XR hip LT min 2V(w/wo pelvis)* Patient: Fredrick Stroud MR#: [id number] [employer] Other XR hip LT min 2V(w/wo pelvis)* 427 [employer] Other XR hip LT min 2V(w/wo pelvis)* : 1950 Acct:[id number] [employer] Other XR hip LT min 2V(w/wo pelvis)* Age/Sex: 70 / M ADM Date: 08/15/21 [employer] Other XR hip LT min 2V(w/wo pelvis)* Loc: SOXD Room: Type: [facility] [employer] Other XR hip LT min 2V(w/wo pelvis)* Attending Dr: Shahriar Dhillon II, MD [employer] Other XR hip LT min 2V(w/wo pelvis)* Copies to: Shahriar Dhillon MD [employer] Other XR hip LT min 2V(w/wo pelvis)* Ordering Provider: Shahriar Dhillon MD [employer] Other XR hip LT min 2V(w/wo pelvis)* Date of Service: 08/15/21 [employer] Other XR hip LT min 2V(w/wo pelvis)* XR/XR hip LT min 2V(w/wo pelvis)*: Aftercare following joint replacement [employer] Other XR hip LT min 2V(w/wo pelvis)* surgery [employer] Other XR hip LT min 2V(w/wo pelvis)* LEFT HIP - 2 views: 1 view pelvis [employer] Other XR hip LT min 2V(w/wo pelvis)* CLINICAL HISTORY: Follow-up left GEOVANI [employer] Other XR hip LT min 2V(w/wo pelvis)* COMPARISON: Hip series 07/02/2021 [employer] Other XR hip LT min 2V(w/wo pelvis)* FINDINGS: 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 Prostate radiation [employer] Other XR hip LT min 2V(w/wo pelvis)* seeds. Mild degenerative changes right hip. [employer] Other XR hip LT min 2V(w/wo pelvis)* XR/XR hip LT min 2V(w/wo pelvis)* [employer] Other XR hip LT min 2V(w/wo pelvis)* IMPRESSION: [employer] Other XR hip LT min 2V(w/wo pelvis)* NO EVIDENCE OF HARDWARE COMPLICATION. [employer] Other XR hip LT min 2V(w/wo pelvis)* Impression dictated by: Dandy Stevenson Jr., Namita08/15/2021 2:40 PM [employer] Other XR hip LT min 2V(w/wo pelvis)* Dictation Location: [facility] [employer] Other XR hip LT min 2V(w/wo pelvis)* Transcribed By: PWS 08/15/21 1440 [employer] Other XR hip LT min 2V(w/wo pelvis)* Dictated By: Dandy Stevenson Jr, DO 08/15/21 1439 [employer] Other XR hip LT min 2V(w/wo pelvis)* Signed By: [employer] Other XR hip LT min 2V(w/wo pelvis)* 08/15/21 1440 [employer] Other Basic Metabolic Panelon 05 Calcium [Mass/Vol] 8.6 mg/dL Normal 8.2-10.2 [facility] Comment on above: Performed By: #### C BC, BMP #### [facility] [address] [place] [address] [place] Chloride [Moles/Vol] 102 mmol/L Normal 95-114 [facility] Comment on above: Performed By: #### C BC, BMP #### [facility] [address] [place] [id number] [place] CO2 [Moles/Vol] 25.5 mmol/L Normal 22.0-30.0 [facility] Comment on above: Performed By: #### C BC, BMP #### [facility] [address] [place] [address] [place] Creatinine [Mass/Vol] 0.96 mg/dL Normal 0.64-1.27 [facility] Comment on above: Performed By: #### C BC, BMP #### [facility] [address] [place] [address] [place] Creatinine Clr Calc Pharmacy 81.73 [facility] Comment on above: Result Comment: PERF ORMED BY: [place] [address] PATHOLOGIST DIE REPAIRER STAMPING EYAD HOWARD M.D. Performed By: #### C BC, BMP #### [address] Estimated GFR ( Jessica > 60 [facility] Comment on above: Result Comment: GFR estimated reference range: According to KDOQI guidelines, <60 ml/min/1.73m2 is sufficient to diagnose a patient with chronic kidney disease. Performed By: #### C BC, BMP #### [address] Estimated GFR (Non- Am > 60 [facility] Comment on above: Performed By: #### C BC, BMP #### [address] Glucose [Mass/Vol] 167 mg/dL High 70-100 [facility] Comment on above: Result Comment: [facility] Glucose Reference Range is dependent on time and content of last meal. Glucose of more than 200 mg/dL in a nonstressed, ambulatory subject supports the diagnosis of Diabetes Mellitus. ADA recommended reference range Performed By: #### C BC, BMP #### [address] Potassium [Moles/Vol] 4.4 mmol/L Normal 3.5-5.1 [facility] Comment on above: Performed By: #### C BC, BMP #### [place] [address] [place] Sodium [Moles/Vol] 135 mmol/L Low 136-146 [facility] Comment on above: Performed By: #### C BC, BMP #### [address] Urea nitrogen [Mass/Vol] 18 mg/dL Normal 9-23 [facility] Comment on above: Performed By: #### C BC, BMP #### [address] Complete Blood Count Auto Di ffon 07-03-2021 Basophils (Bld) [#/Vol] 0.0 10*3/uL Normal 0.0-0.2 [facility] Comment on above: Result Comment: PERF ORMED BY: [place] [address] PATHOLOGIST DIE REPAIRER STAMPING EYAD HOWARD M.D. Performed By: #### C BC, BMP #### [address] Basophils/100 WBC (Bld) 0.3 % Normal . [facility] Comment on above: Performed By: #### C BC, BMP #### [address] Eosinophils (Bld) [#/Vol] 0.0 10*3/uL Normal 0.0-0.45 [facility] Comment on above: Performed By: #### C BC, BMP #### [address] Eosinophils/100 WBC (Bld) 0.0 % Normal . [facility] Comment on above: Performed By: #### C BC, BMP #### [address] Erythrocyte distribution width (RBC) [Ratio] 14.2 % Normal 12.0-14.8 [facility] Comment on above: Performed By: #### C BC, BMP #### [address] Hematocrit (Bld) [Volume fraction] 32.9 % Low 38.8-50.0 [facility] Comment on above: Performed By: #### C BC, BMP #### [place] [address] [place] Hemoglobin (Bld) [Mass/Vol] 11.2 g/dL Low 13.0-17.0 [facility] Comment on above: Performed By: #### C BC, BMP #### [address] Lymphocytes (Bld) [#/Vol] 0.6 10*3/uL Low 1.00-4.8 [facility] Comment on above: Performed By: #### C BC, BMP #### [facility] [address] [place] [address] [place] Lymphocytes/100 WBC (Bld) 4.7 % Normal . [facility] Comment on above: Performed By: #### C BC, BMP #### [facility] [address] MCH (RBC) [Entitic mass] 30.1 pg Normal 27.5-35.2 [facility] Comment on above: Performed By: #### C BC, BMP #### [facility] [address] MCV (RBC) [Entitic vol] 88.7 fL Normal 83.5-101 [facility] Comment on above: Performed By: #### C BC, BMP #### [address] Mean Corpuscular HGB Conc 33.9 g/dL Normal 32.5-35.6 [facility] Comment on above: Performed By: #### C BC, BMP #### [facility] [address] [place] [address] [place] Monocytes (Bld) [#/Vol] 1.0 10*3/uL High 0.0-0.8 [facility] Comment on above: Performed By: #### C BC, BMP #### [facility] [address] [place] [address] [place] Monocytes/100 WBC (Bld) 8.3 % Normal . [facility] Comment on above: Performed By: #### C BC, BMP #### [facility] [address] [place] [address] [place] Neutrophils (Bld) [#/Vol] 10.9 10*3/uL High 1.8-7.7 [facility] Comment on above: Performed By: #### C BC, BMP #### [facility] [address] [place] [address] [place] Neutrophils/100 WBC (Bld) 86.7 % Normal . [facility] Comment on above: Performed By: #### C BC, BMP #### [facility] [address] Nucleated RBC/100 WBC (Bld) [Ratio] 0.0 % Normal 0-0.5 [facility] Comment on above: Performed By: #### C BC, BMP #### [facility] [address] Platelet mean volume (Bld) [Entitic vol] 8.4 fL Normal 6.6-10.1 [facility] Comment on above: Performed By: #### C BC, BMP #### [facility] [address] Platelets (Bld) [#/Vol] 210 10*3/uL Normal 150-450 [facility] Comment on above: Performed By: #### C BC, BMP #### [facility] [address] RBC (Bld) [#/Vol] 3.71 10*6/uL Low 3.90-5.60 [facility] Comment on above: Performed By: #### C BC, BMP #### [facility] [address] WBC (Bld) [#/Vol] 12.5 10*3/uL High 4.5-11.0 [facility] Comment on above: Performed By: #### C AKHIL, BMP #### [address] ECG 12 lead ECGon 07-02-2021 ECG 12 lead ECG [facility] Main [place] [address] [place] [address] Electrocardiograph Report Signed Patient: Fredrick Stroud MR#: [id number] 427 : 1950 Acct:[id number] Age/Sex: 70 / M ADM Date: 07/02/21 Loc: [place] Room: Type: [facility] Attending Dr: Shahriar Dhillon II, MD [...] Signed By Moreno Rosario DO 07/02 1306 [facility] [place] 07-02-2021 L - -------- Specimen: [id number] Received: 07/02/21 Status: LORETTA Solis Num: [id number] Spec Type: Surgical Subm Dr: Shahriar Dhillon MD Tissues: A Femoral Head - Other than Fracture (L HIP) Procedures: HE Stain, Gross/Micro L3, Decal -------- Patient Age/Sex Location Account Attending Physician -------- Fredrick Stroud 70/M 4N [id number] Shahriar Dhillon MD -------- SPEC NUM: [id number] RECD: 07/02/21 STATUS: LORETTA SOLIS NUM: [id number] MILY: 07/02/21 DR: Shahriar Dhillon MD ENTERED: 07/02/[address]: LEBRON TYPE: Surgical DEPT: S ORDERED: [...] bone fragments and scant soft tissue. A customer retention representative section of bone, following formalin fixation and decalcification is submitted in cassette A 1. ([id number]) -------- Specimen: [id number] Received: 07/02/21 Status: LORETTA Solis Num: [id number] Spec Type: Surgical Subm Dr: Shahriar Dhillon MD Tissues: A Femoral Head - Other than Fracture (L HIP) Procedures: HE Stain, Gross/Micro L3, Decal -------- Patient: Fredrick Stroud [id number] (Continued) -------- Specimen: Received: 07/02/21 (Continued) Signed (signature on file) Kaycee Curry MD 07/04/21 1625 -------- Specimen: Received: 07/02/21 Status: LORETTA Solis Num: [id number] Spec Type: Surgical Subm Dr: Shahriar Dhillon MD Tissues: A Femoral Head - Other than Fracture (L HIP) Procedures: HE Stain, Gross/Micro L3, Decal -------- Patient: Fredrick Stroud [id number] (Continued) -------- Specimen: [id number] Received: 07/02/21 (Continued) Microscopic Description One glass slide with H E stained material has been examined. The microscopic findings support the above pathologic diagnosis. CPT Codes 57727, 49273 -------- -------- Specimen: [id number] Received: 07/02/21 Status: LORETTA Solis Num: [id number] Spec Type: Surgical Subm Dr: Shahriar Dhillon MD Tissues: A Femoral Head - Other than Fracture (L HIP) Procedures: HE Stain, Gross/Micro L3, Decal -------- Patient: Fredrick Stroud [id number] (Continued) -------- Signed (signature on file) Kaycee Curry MD 07/04/21 1625 [facility] XR hip LT 1Von 07-02-2021 XR hip LT 1V [place] [address] XRay Report Signed Patient: Fredrick Stroud MR#: [id number] 427 : 1950 Acct:[id number] Age/Sex: 70 / M ADM Date: 07/02/21 Loc: [place] Room: Type: [facility] Attending Dr: Shahriar Dhillon II, MD [...] Stevenson Jr, DO 07/02/21922 Signed By: 07/02/21925 [facility] XR low pelvis w/LT x-table h ipon 07-02-2021 XR low pelvis w/LT x-table hip [facility] [place] [address] XRay Report Signed Patient: Fredrick Stroud MR#: [id number] 427 : 1950 Acct:[id number] Age/Sex: 70 / M ADM Date: 07/02/21 Loc: [place] Room: Type: [facility] Attending Dr: Shahrira Dhillon II, MD Ordering Provider: Shahriar Dhillon [...] 12:05 PM Dictation Location: RADIO-PC-13 Transcribed By: ADRIAN 07/02/211204 Dictated By: Ariana Tanner MD 07/02/21 120 Signed By: 07/02/211204 [facility] SARS-CoV-2 (COVID-19) RNA FABI+probe Ql (Unsp spec) Negative Normal Negative [facility] Comment on above: Order Comment: 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 This test has not been [...] is terminated or revoked sooner. PERFORMED BY: [place] [address] PATHOLOGIST DIE REPAIRER STAMPING EYAD HOWARD M.D. Performed By: #### C BC, CMP, HS TROP, BNP #### [place] [id number] [facility] Basic Metabolic Panelon 04-2 Calcium [Mass/Vol] 9.4 mg/dL Normal 8.2-10.2 [facility] Comment on above: Result Comment: PERF ORMED BY: [place] [address] PATHOLOGIST DIE REPAIRER STAMPING EYDA HOWARD M.D. Performed By: #### C OVID-19 GERTRUDE, SOFIANEG #### [place] [id number] [facility] Chloride [Moles/Vol] 103 mmol/L Normal 95-114 [facility] Comment on above: Performed By: #### C OVID-19 GERTRUDE, SOFIANEG #### [place] [id number] [place] CO2 [Moles/Vol] 26.4 mmol/L Normal 22.0-30.0 [facility] Comment on above: Performed By: #### C OVID-19 GERTRUDE SOFIANEG #### [facility] [address] Creatinine [Mass/Vol] 0.89 mg/dL Normal 0.64-1.27 [facility] Comment on above: Performed By: #### C OVID-19 GERTRUDE, SOFIANEG #### [facility] [address] Estimated GFR ( Jessica > 60 Normal [facility] Comment on above: Result Comment: GFR estimated reference range: According to KDOQI guidelines, <60 ml/min/1.73m2 is sufficient to diagnose a patient with chronic kidney disease. Performed By: #### C OVID-19 GERTRUDE SOFIANEG #### [facility] [facility] [address] [place] [address] [place] Estimated GFR (Non- Am > 60 [facility] Comment on above: Performed By: #### C OVID-19 GERTRUDE, SOFIANEG #### [facility] [address] Glucose [Mass/Vol] 101 mg/dL High 70-100 [facility] Comment on above: Result Comment: Twilight Glucose Reference Range is dependent on time and content of last meal. Glucose of more than 200 mg/dL in a nonstressed, ambulatory subject supports the diagnosis of Diabetes Mellitus. ADA recommended reference range Performed By: #### C OVID-19 GERTRUDE SOFIANEG #### [facility] [address] [place] [address] [place] Potassium [Moles/Vol] 4.4 mmol/L Normal 3.5-5.1 [facility] Comment on above: Performed By: #### C OVID-19 GERTRUDE, SOFIANEG #### [facility] [address] [place] [address] [place] Sodium [Moles/Vol] 139 mmol/L Normal 136-146 [facility] Comment on above: Performed By: #### C OVID-19 GERTRUDE, SOFIANEG #### [facility] [address] Urea nitrogen [Mass/Vol] 23 mg/dL Normal 9-23 [facility] Comment on above: Performed By: #### C OVID-19 GERTRUDE, SOFIANEG #### [facility] [address] Complete Blood Count Auto Di ffon 06-18-2021 Basophils (Bld) [#/Vol] 0.0 10*3/uL Normal 0.0-0.2 [facility] Comment on above: Result Comment: PERF ORMED BY: [place] [address] PATHOLOGIST DIE REPAIRER STAMPING EYAD HOWARD M.D. Performed By: #### C OVID-19 GERTRUDE, SOFIANEG #### [address] Basophils/100 WBC (Bld) 0.9 % Normal . [facility] Comment on above: Performed By: #### C OVID-19 GERTRUDE, SOFIANEG #### [facility] [address] [place] [address] [place] Eosinophils (Bld) [#/Vol] 0.1 10*3/uL Normal 0.0-0.45 [facility] Comment on above: Performed By: #### C OVID-19 GERTRUDE, SOFIANEG #### [address] Eosinophils/100 WBC (Bld) 1.4 % Normal . [facility] Comment on above: Performed By: #### C OVID-19 GERTRUDE, SOFIANEG #### [facility] [address] Erythrocyte distribution width (RBC) [Ratio] 14.0 % Normal 12.0-14.8 [facility] Comment on above: Performed By: #### C OVID-19 GERTRUDE, SOFIANEG #### [facility] [address] [place] [address] Hematocrit (Bld) [Volume fraction] 41.8 % Normal 38.8-50.0 [facility] Comment on above: Performed By: #### C OVID-19 GERTRUDE, SOFIANEG #### [facility] [address] [place] [address] Hemoglobin (Bld) [Mass/Vol] 14.2 g/dL Normal 13.0-17.0 [facility] Comment on above: Performed By: #### C OVID-19 GERTRUDE, SOFIANEG #### [address] Lymphocytes (Bld) [#/Vol] 1.1 10*3/uL Normal 1.00-4.8 [facility] Comment on above: Performed By: #### C OVID-19 GERTRUDE, SOFIANEG #### [address] Lymphocytes/100 WBC (Bld) 22.7 % Normal . [facility] Comment on above: Performed By: #### C OVID-19 GERTRUDE, SOFIANEG #### [address] MCH (RBC) [Entitic mass] 30.4 pg Normal 27.5-35.2 [facility] Comment on above: Performed By: #### C OVID-19 GERTRUDE, SOFIANEG #### [address] MCV (RBC) [Entitic vol] 89.7 fL Normal 83.5-101 [facility] Comment on above: Performed By: #### C OVID-19 GERTRUDE, SOFIANEG #### [facility] [address] [place] [address] Mean Corpuscular HGB Conc 33.9 g/dL Normal 32.5-35.6 [facility] Comment on above: Performed By: #### C OVID-19 GERTRUDE, SOFIANEG #### [facility] [address] [place] [address] [place] Monocytes (Bld) [#/Vol] 0.5 10*3/uL Normal 0.0-0.8 [facility] Comment on above: Performed By: #### C OVID-19 GERTRUDE, SOFIANEG #### [facility] [address] [place] [address] [place] Monocytes/100 WBC (Bld) 11.2 % Normal . [facility] Comment on above: Performed By: #### C OVID-19 GERTRUDE, SOFIANEG #### [facility] [address] Neutrophils (Bld) [#/Vol] 3.1 10*3/uL Normal 1.8-7.7 [facility] Comment on above: Performed By: #### C OVID-19 GERTRUDE, SOFIANEG #### [address] Neutrophils/100 WBC (Bld) 63.8 % Normal . [facility] Comment on above: Performed By: #### C OVID-19 GERTRUDE, SOFIANEG #### [facility] [address] [place] [address] [place] Nucleated RBC/100 WBC (Bld) [Ratio] 0.1 % Normal 0-0.5 [facility] Comment on above: Performed By: #### C OVID-19 GERTRUDE, SOFIANEG #### [address] Platelet mean volume (Bld) [Entitic vol] 8.2 fL Normal 6.6-10.1 [facility] Comment on above: Performed By: #### C OVID-19 GERTRUDE, SOFIANEG #### [facility] [address] [place] [address] [place] Platelets (Bld) [#/Vol] 243 10*3/uL Normal 150-450 [facility] Comment on above: Performed By: #### C OVID-19 GERTRUDE, SOFIANEG #### [place] [address] [place] RBC (Bld) [#/Vol] 4.67 10*6/uL Normal 3.90-5.60 [facility] Comment on above: Performed By: #### C OVID-19 GERTRUDE, SOFIANEG #### [address] [place] [address] [place] WBC (Bld) [#/Vol] 4.8 10*3/uL Normal 4.5-11.0 [facility] Comment on above: Performed By: #### C OVID-19 WOLFGANG LOREDO #### [address] ECG 12 lead ECGon 06-18-2021 ECG 12 lead ECG [facility] [place] [address] [place] [address] Electrocardiograph Report Signed Patient: Fredrick Stroud MR#: [id number] : [id number] Acct:[id number] Age/Sex: 70 / M ADM Date: 06/18/21 [...] Wisam Torre MD 0 06/19/21 1006 Normal [facility] Fructosamineon 06-18-2021 Fructosamine 217 umol/L Normal 0-285 [facility] Comment on above: Result Comment: Publ ished reference interval for apparently healthy subjects between age 20 and 60 is 205 - 285 umol/L and in a poorly controlled diabetic population is 228 - 563 umol/L with a mean of 396 umol/L. Performed at: [address], [place], [place] [id number] Cheese Supervisor: Benton Caro PhD, Phone: [phone] PERFORMED BY: [place] [address] PATHOLOGIST DIE REPAIRER STAMPING EYAD HOWARD M.D. Performed By: #### C OVID-19 GERTRUDE, SOFIANEG #### [facility] [address] [place] [address] [place] PST Type and Screenon 2021 ABO and Rh group Nom (Bld) Blood group O Rh(D) positive Normal [facility] Comment on above: Order Comment: Date of Surgery: [id number] Result Comment: PERF ORMED BY: [place] [address] PATHOLOGIST DIE REPAIRER STAMPING EYAD HOWARD M.D. Urinalysison 06-18-2021 Appearance (U) Clear Normal Clear [facility] Comment on above: Order Comment: Name Collection Type:: Clean-Voided Midstream Performed By: #### C BC, CMP, HS TROP, BNP #### [facility] [address] [place] [address] [place] Bilirubin,Urine Negative Normal Negative [facility] Comment on above: Order Comment: Name Collection Type:: Clean-Voided Midstream Performed By: #### C BC, CMP, HS TROP, BNP #### [facility] [address] [place] [address] [place] Color (U) Yellow Normal Yellow [facility] Comment on above: Order Comment: Name Collection Type:: Clean-Voided Midstream Performed By: #### C BC, CMP, HS TROP, BNP #### [facility] [address] [place] [address] [place] Glucose Ql (U) Normal Normal Normal [facility] Comment on above: Order Comment: Name Collection Type:: Clean-Voided Midstream Performed By: #### C BC, CMP, HS TROP, BNP #### [facility] [address] [place] [address] [place] Ketones Ql (U) Negative Normal Negative [facility] Comment on above: Order Comment: Name Collection Type:: Clean-Voided Midstream Performed By: #### C BC, CMP, HS TROP, BNP #### [address] Leukocyte esterase Test strip Ql (U) Negative Normal Negative [facility] Comment on above: Order Comment: Name Collection Type:: Clean-Voided Midstream Performed By: #### C BC, CMP, HS TROP, BNP #### [address] Nitrite,Urine Negative Normal Negative [facility] Comment on above: Order Comment: Name Collection Type:: Clean-Voided Midstream Performed By: #### C BC, CMP, HS TROP, BNP #### [address] Occult Blood,Urine Negative Normal Negative [facility] Comment on above: Order Comment: Name Collection Type:: Clean-Voided Midstream Result Comment: PERF ORMED BY: [place] [address] PATHOLOGIST DIE REPAIRER STAMPING EYAD HOWARD M.D. Performed By: #### C BC, CMP, HS TROP, BNP #### [address] pH (U) 7.5 [pH] Normal 5.0-9.0 [facility] Comment on above: Order Comment: Name Collection Type:: Clean-Voided Midstream Performed By: #### C BC, CMP, HS TROP, BNP #### [address] Protein,Urine Negative Normal Negative [facility] Comment on above: Order Comment: Name Collection Type:: Clean-Voided Midstream Performed By: #### C BC, CMP, HS TROP, BNP #### [address] Specificy [place],Urine 1.023 Normal 1.001-1.030 [facility] Comment on above: Order Comment: Name Collection Type:: Clean-Voided Midstream Performed By: #### C BC, CMP, HS TROP, BNP #### [facility] [address] [place] [address] [place] Urobilinogen,Urine Normal Normal Normal [facility] Comment on above: Order Comment: Name Collection Type:: Clean-Voided Midstream Performed By: #### C BC, CMP, HS TROP, BNP #### [facility] [address] [place] [address] [place] Urinalysis - AUTOMATEDon Appearance (U) CLEAR [facility] Other Bilirubin Ql (U) Negative [employer] Other Color (U) YELLOW [employer] Other Glucose Ql (U) Negative [facility] Other Hemoglobin Ql (U) Negative [employer] Other Ketones Ql (U) Negative [facility] Other Leukocyte esterase Test strip Ql (U) Negative [employer] Other Nitrite Ql (U) Negative [facility] Other pH (U) 6.0 [pH] [employer] Other Protein Ql (U) Negative [facility] Other Specific gravity (U) [Rel density] 1.010 [employer] Other Urobilinogen (U) [Mass/Vol] 0.2 mg/dL [employer] Other Urinalysis - AUTOMATED [employer] Other Vital Signs Date Time Vital Sign Value Performing Clinician Facility 02-25-2023 13:00-0500 Body temperature 98.2 [degF] Vivian Espinoza MD Work Phone: [facility] 02-25-2023 13:00-0500 Diastolic blood pressure 81 mm[Hg] Vivian Espinoza MD Work Phone: [facility] 02-25-2023 13:00-0500 Heart rate 79 /min Vivian Espinoza MD Work Phone: [facility] 02-25-2023 13:00-0500 Respiratory rate 18 /min Vivian Espinoza MD Work Phone: [facility] 02-25-2023 13:00-0500 SaO2% (BldA) [Mass fraction] 97 % Vivian Espinoza MD Work Phone: [facility] 02-25-2023 13:00-0500 Systolic blood pressure 125 mm[Hg] Vivian Espinoza MD Work Phone: [facility] 02-16-2023 22:54-0500 SaO2% (BldA) [Mass fraction] 96.1 % Vivian Espinoza MD Work Phone: [facility] 02-16-2023 03:00-0500 Body height 167.6 cm Vivian Espinoza MD Work Phone: [facility] 02-16-2023 03:00-0500 Body mass index (BMI) [Ratio] 42.52 kg/m2 Vivian Espinoza MD Work Phone: [facility] 02-16-2023 03:00-0500 Body weight 119.5 kg Vivian Espinoza MD Work Phone: [facility] 02-15-2023 20:06-0500 Body temperature 97.52 [degF] Justice Pretty [facility] 02-15-2023 20:06-0500 Diastolic blood pressure 63 mm[Hg] Justice Pretty [facility] 02-15-2023 20:06-0500 Heart rate 70 /min Justice Pretty [facility] 02-15-2023 20:06-0500 Mean blood pressure 76 mm[Hg] Justice Pretty [facility] 02-15-2023 20:06-0500 Respiratory rate 18 /min Justice Pretty [facility] 02-15-2023 20:06-0500 SaO2% (BldA) [Mass fraction] 94 % Justice Sukhwinder [facility] 02-15-2023 20:06-0500 Systolic blood pressure 101 mm[Hg] Justice Sukhwinder [facility] 02-15-2023 20:00-0500 Diastolic blood pressure 74 mm[Hg] Justice Sukhwinder [facility] 02-15-2023 20:00-0500 Heart rate 63 /min Justice Sukhwinder [facility] 02-15-2023 20:00-0500 Hourly Rounding Justice Cuetoe [facility] 02-15-2023 20:00-0500 Promise to Return Justice Sukhwinder [facility] 02-15-2023 20:00-0500 SaO2% (BldA) [Mass fraction] 100 % Justice Sukhwinder [facility] 02-15-2023 20:00-0500 Systolic blood pressure 112 mm[Hg] Justice Sukhwinder [facility] 02-15-2023 19:57-0500 Diastolic blood pressure 78 mm[Hg] Justice Sukhwinder [facility] 02-15-2023 19:57-0500 Heart rate 101 /min Justice Sukhwinder [facility] 02-15-2023 19:57-0500 Mean blood pressure 90 mm[Hg] Justice Sukhwinder [facility] 02-15-2023 19:57-0500 Respiratory rate 14 /min Justice Sukhwinder [facility] 02-15-2023 19:57-0500 SaO2% (BldA) [Mass fraction] 98 % Justice Sukhwinder [facility] 02-15-2023 19:57-0500 Systolic blood pressure 113 mm[Hg] Justice Sukhwinder [facility] 02-15-2023 19:47-0500 Heart rate 85 /min Justice Sukhwinder [facility] 02-15-2023 19:47-0500 Mean blood pressure 49 mm[Hg] Justice Sukhwinder [facility] 02-15-2023 19:47-0500 Respiratory rate 14 /min Justice Sukhwinder [facility] 02-15-2023 19:34-0500 Blood Pressure Location Justice Sukhwinder [facility] 02-15-2023 19:34-0500 Body temperature 97.52 [degF] Justice Sukhwinder [facility] 02-15-2023 19:34-0500 Heart rate 68 /min Justice Sukhwinder [facility] 02-15-2023 19:19-0500 Heart rate 67 /min Justice Sukhwinder [facility] 02-15-2023 19:00-0500 Hourly Rounding Justice Cuetoe [facility] 02-15-2023 19:00-0500 Promise to Return Justice Sukhwinder [facility] 02-15-2023 18:45-0500 Body temperature 97.52 [degF] Justice Sukhwinder [facility] 02-15-2023 18:17-0500 Body temperature 97.52 [degF] Justice Sukhwinder [facility] 02-15-2023 18:00-0500 Hourly Rounding Justice Sukhwinder [facility] 02-15-2023 18:00-0500 Promise to Return Justice Pretty [facility] 02-15-2023 16:28-0500 Body temperature 97.88 [degF] Justice Pretty [facility] 08-30-2022 08:53-0400 Body height 167.64 cm Karina Melgar Work Phone: [facility] DO Work Phone: 08-30-2022 08:53-0400 Body mass index (BMI) [Ratio] 38.74 kg/m2 Karina Melgar Work Phone: [facility] DO Work Phone: 08-30-2022 08:53-0400 Body surface area Derived from formula 2.16 m2 Karina Melgar Work Phone: [facility] DO Work Phone: 08-30-2022 08:53-0400 Body weight 108.86 kg Karina Melgar Work Phone: [facility] DO Work Phone: 08-30-2022 08:53-0400 Diastolic blood pressure 62 mm[Hg] Karina Melgar Work Phone: [facility] DO Work Phone: 08-30-2022 08:53-0400 Heart rate 55 /min Karina Melgar Work Phone: [facility] DO Work Phone: 08-30-2022 08:53-0400 Systolic blood pressure 128 mm[Hg] Karina Melgar Work Phone: [facility] DO Work Phone: 08-13-2022 13:21-0400 Body height 167.64 cm Karina Melgar Work Phone: [facility] DO Work Phone: 08-13-2022 13:21-0400 Body mass index (BMI) [Ratio] 39.87 kg/m2 Karina Lisa Ramón Work Phone: [facility] DO Work Phone: 08-13-2022 13:21-0400 Body surface area Derived from formula 2.19 m2 Karina Lisa Ramón Work Phone: [facility] DO Work Phone: 08-13-2022 13:21-0400 Body weight 112.04 kg Karina Guardadoon Work Phone: [facility] DO Work Phone: 08-13-2022 13:21-0400 Diastolic blood pressure 70 mm[Hg] Karina Lisa Ramón Work Phone: [facility] DO Work Phone: 08-13-2022 13:21-0400 Heart rate 70 /min Karina Lisa Ramón Work Phone: [facility] DO Work Phone: 08-13-2022 13:21-0400 Systolic blood pressure 136 mm[Hg] Karina Lisa Ramón Work Phone: [facility] DO Work Phone: 07-05-2022 09:08-0400 Body height 167.64 cm Karina Lisa Ramón Work Phone: [facility] [address] DO Work Phone: 07-05-2022 09:08-0400 Body mass index (BMI) [Ratio] 39.54 kg/m2 Karina Lisa Ramón Work Phone: [facility] DO Work Phone: 07-05-2022 09:08-0400 Body surface area Derived from formula 2.18 m2 Karina Lisa Ramón Work Phone: [facility] DO Work Phone: 07-05-2022 09:08-0400 Body weight 111.13 kg Karina Lisa Ramón Work Phone: [facility] DO Work Phone: 07-05-2022 09:08-0400 Diastolic blood pressure 70 mm[Hg] Karina Lisa Ramón Work Phone: [facility] DO Work Phone: 07-05-2022 09:08-0400 Heart rate 72 /min Karina Lisa Ramón Work Phone: [facility] DO Work Phone: 07-05-2022 09:08-0400 Systolic blood pressure 138 mm[Hg] Karina Lisa Ramón Work Phone: [facility] DO Work Phone: 06-20-2022 16:24-0400 Body height 167.64 cm Karina Lisa Ramón Work Phone: [facility] DO Work Phone: 06-20-2022 16:24-0400 Body mass index (BMI) [Ratio] 40.03 kg/m2 Karina Lisa Ramón Work Phone: [facility] DO Work Phone: 06-20-2022 16:24-0400 Body surface area Derived from formula 2.19 m2 Karina Guardadoon Work Phone: [facility] DO Work Phone: 06-20-2022 16:24-0400 Body weight 112.49 kg Karina Guardadoon Work Phone: [facility] DO Work Phone: 06-20-2022 16:24-0400 Diastolic blood pressure 102 mm[Hg] Karina Guardadoon Work Phone: [facility] DO Work Phone: 06-20-2022 16:24-0400 Heart rate 76 /min Karina Lisa Ramón Work Phone: [facility] DO Work Phone: 06-20-2022 16:24-0400 Systolic blood pressure 162 mm[Hg] Karina Lisa Ramón Work Phone: [facility] DO Work Phone: 05-10-2022 14:46-0400 Body height 167.64 cm Karina Lisa Ramón Work Phone: [facility] [place] Work Phone: 05-10-2022 14:46-0400 Body mass index (BMI) [Ratio] 40.19 kg/m2 Karina Lisa Ramón Work Phone: [facility] [place] Work Phone: 05-10-2022 14:46-0400 Body surface area Derived from formula 2.2 m2 Karina Lisa Ramón Work Phone: [facility] [place] Work Phone: 05-10-2022 14:46-0400 Body weight 112.95 kg Karina Lisa Ramón Work Phone: [facility] [place] Work Phone: 05-10-2022 14:46-0400 Diastolic blood pressure 80 mm[Hg] Karina Lisa Melgar Work Phone: [facility] [place] Work Phone: 05-10-2022 14:46-0400 Heart rate 61 /min Karina Guardadoon Work Phone: [facility] [place] Work Phone: 05-10-2022 14:46-0400 Systolic blood pressure 130 mm[Hg] Karina Guardadoon Work Phone: [facility] [place] Work Phone: 05-02-2022 13:26-0500 Body height 167.64 cm Karina Lisa Melgar Work Phone: [facility] DO Work Phone: 05-02-2022 13:26-0500 Body mass index (BMI) [Ratio] 40.19 kg/m2 Karina Guardadoon Work Phone: [facility] DO Work Phone: 05-02-2022 13:26-0500 Body surface area Derived from formula 2.2 m2 Karina Guardadoon Work Phone: [facility] DO Work Phone: 05-02-2022 13:26-0500 Body weight 112.95 kg Karina Guardadoon Work Phone: [facility] DO Work Phone: 05-02-2022 13:26-0500 Diastolic blood pressure 64 mm[Hg] Karina Guardadoon Work Phone: [facility] DO Work Phone: 05-02-2022 13:26-0500 Heart rate 62 /min Karina Guardadoon Work Phone: [facility] DO Work Phone: 05-02-2022 13:26-0500 Systolic blood pressure 116 mm[Hg] Karina Guardadoon Work Phone: [facility] DO Work Phone: 04-29-2022 11:48-0500 Body height 167.64 cm Karina Lisa Ramón Work Phone: [facility] DO Work Phone: 04-29-2022 11:48-0500 Body mass index (BMI) [Ratio] 40.09 kg/m2 Karina Lisa Ramón Work Phone: [facility] DO Work Phone: 04-29-2022 11:48-0500 Body surface area Derived from formula 2.19 m2 Karina Lisa Ramón Work Phone: [facility] DO Work Phone: 04-29-2022 11:48-0500 Body weight 112.67 kg Karina Lisa Ramón Work Phone: [facility] DO Work Phone: 04-29-2022 11:48-0500 Diastolic blood pressure 80 mm[Hg] Karina Lisa Ramón Work Phone: [facility] DO Work Phone: 04-29-2022 11:48-0500 Heart rate 60 /min Karina Lisa Ramón Work Phone: [facility] DO Work Phone: 04-29-2022 11:48-0500 Systolic blood pressure 122 mm[Hg] Karina Guardadoon Work Phone: [facility] DO Work Phone: 04-18-2022 14:45-0500 Body height 167.64 cm Karina Melgar Other [facility] [email or web address] Other 04-18-2022 14:45-0500 Body mass index (BMI) [Ratio] 39.54 kg/m2 Karina Melgar Other [facility] [email or web address] Other 04-18-2022 14:45-0500 Body weight 111.13 kg Karina Melgar Other [facility] [email or web address] Other 04-18-2022 14:45-0500 Diastolic blood pressure 76 mm[Hg] Karina Melgar Other [facility] [email or web address] Other 04-18-2022 14:45-0500 Systolic blood pressure 122 mm[Hg] Karina Melgar Other [facility] [facility] [email or web address] Other 03-11-2022 18:35-0500 Diastolic blood pressure 79 mm[Hg] MD Karina Melgar Work Phone: [facility] 03-11-2022 18:35-0500 Heart rate 74 /min MD Karina Melgar Work Phone: [facility] 03-11-2022 18:35-0500 Respiratory rate 20 /min MD Karina Melgar Work Phone: [facility] 03-11-2022 18:35-0500 SaO2% (BldA) [Mass fraction] 97 % MD Karina Melgar Work Phone: [facility] 03-11-2022 18:35-0500 Systolic blood pressure 137 mm[Hg] MD Karina Melgar Work Phone: [facility] 03-11-2022 13:03-0500 Body height 167.64 cm MD Karina Melgar Work Phone: [facility] 03-11-2022 13:03-0500 Body temperature 98.7 [degF] MD Karina Melgar Work Phone: [facility] 03-11-2022 13:03-0500 Body weight 116 kg MD Karina Melgar Work Phone: [facility] 06-14-2021 11:15-0400 Body height 167.64 cm Shahriar Dhillon II Other [facility] [email or web address] Other 06-14-2021 11:15-0400 Body mass index (BMI) [Ratio] 40.02 kg/m2 Shahriar Victoria II Other [employer] Other 06-14-2021 11:15-0400 Body weight 112.49 kg Shahriar Alejo II Other [employer] Other 05-24-2021 15:30-0400 Body height 167.64 cm Karina Melgar Other [employer] Other 05-24-2021 15:30-0400 Body mass index (BMI) [Ratio] 40.19 kg/m2 Karina Melgar Other [employer] Other 05-24-2021 15:30-0400 Body weight 112.95 kg Karina Melgar Other [employer] Other 05-24-2021 15:30-0400 Diastolic blood pressure 80 mm[Hg] Karina Melgar Other [employer] Other 05-24-2021 15:30-0400 Systolic blood pressure 132 mm[Hg] Karina Melgar Other [employer] Other 03-21-2021 15:00-0500 Body height 167.64 cm Shahriar Victoria II Other [employer] Other 03-21-2021 15:00-0500 Body mass index (BMI) [Ratio] 40.51 kg/m2 Shahriar Alejo II Other [employer] Other 03-21-2021 15:00-0500 Body weight 113.85 kg Shahriar Alejo II Other [employer] Other 02-13-2021 15:45-0500 Body height 167.64 cm Karina Melgar Other [employer] Other 02-13-2021 15:45-0500 Diastolic blood pressure 80 mm[Hg] Karina Melgar Other [employer] Other 02-13-2021 15:45-0500 Systolic blood pressure 144 mm[Hg] Karina Melgar Other [employer] Other 01-29-2021 14:45-0500 Body height 167.64 cm Karina Melgar Other [employer] Other 01-29-2021 14:45-0500 Body mass index (BMI) [Ratio] 40.64 kg/m2 Karina Melgar Other [employer] Other 01-29-2021 14:45-0500 Body weight 114.22 kg Karina Melgar Other [employer] Other 01-29-2021 14:45-0500 Diastolic blood pressure 92 mm[Hg] Karina Melgar Other [employer] Other 01-29-2021 14:45-0500 SaO2% (BldA) [Mass fraction] 98 % Karina Melgar Other [employer] Other 01-29-2021 14:45-0500 Systolic blood pressure 148 mm[Hg] Karina Melgar Other [employer] Other Encounters Encounter Date Encounter Type Care Provider Facility Start: 03-10-2023 End: 03-10-2023 Patient encounter procedure Toni Goldberg MD Work Phone: [facility] Comment on above: Aftercare following surgery (Primary Dx); Closed fracture of left femur, unspecified fracture morphology, unspecified portion of femur, initial encounter (HCC) Start: 02-21-2023 Evaluation and management of inpatient JUSTICE PRETTY Facility:[facility] Start: 02-18-2023 Evaluation and management of inpatient UNKNOWN PROVIDER Facility:[facility] Start: 02-18-2023 Patient encounter status Ip 3 [facility] Work Phone: Start: 02-18-2023 ambulatory UNKNOWN PROVIDER Facili ty:[facility] Start: 02-18-2023 End: 02-18-2023 Subsequent hospital visit by physician Ip Kiln Cleaner 3 [facility] Non Invasive [facility] Start: 02-17-2023 Evaluation and management of inpatient [facility]KNOWN PROVIDER [facility] Start: 02-16-2023 Evaluation and management of inpatient JUSTICE PRETTY [facility] Start: 02-16-2023 Emergency department patient visit UNKNOWN PROVIDER Facility:[facility] Start: 02-15-2023 Emergency department patient visit UNKNOWN PROVIDER Facility:[facility] Start: 02-15-2023 End: 02-15-2023 ambulatory UNKNOWN PROVIDER Facility:[facility] Start: 02-15-2023 End: 02-25-2023 Evaluation and management of inpatient Vivian Espinoza MD Work Phone: [address] Start: 02-15-2023 End: 02-25-2023 Patient encounter status [facility] Start: 02-15-2023 End: 02-16-2023 Emergency department patient visit Justice Pretty [facility] Start: 02-15-2023 End: 02-15-2023 Emergency department patient visit Justice Pretty [facility] Start: 08-30-2022 Office outpatient vi sit 25 minutes Karina Melgar Work Phone: [facility] 250 DO Work Phone: Start: 08-13-2022 ambulatory Christopher Porter Facilit y: Start: 08-02-2022 ambulatory Christopher Porter Facilit y: Start: 08-02-2022 End: 08-02-2022 ambulatory Christopher Porter Facility[facility] Start: 07-05-2022 ambulatory Christopher Waderick Facilit y: Start: 07-05-2022 Office outpatient vi sit 25 minutes Karina Melgar Work Phone: [facility] 600 DO Work Phone: Start: 06-20-2022 Patient encounter procedure Karina Melgar Work Phone: [facility] 250 DO Work Phone: Start: 06-20-2022 ambulatory Christopher Stacimao Facilit y: Start: 06-12-2022 Chart Update Karina floyd Work Phone: [facility] 250 DO Work Phone: Start: 06-11-2022 End: 06-11-2022 ambulatory Christopher Porter Facility:[facility] Start: 06-11-[address] Karina Melgar Facility:[id number] Start: 05-28-2022 Patient encounter procedure Karina Melgar Work Phone: [facility] 250 DO Work Phone: Start: 05-10-2022 Patient encounter procedure Karina Melgar Work Phone: [facility] [place] Work Phone: Start: 05-10-2022 ambulatory Christopher Porter Facilit y: Start: 05-03-2022 AUDIT Karina floyd Work Phone: [facility] 250 DO Work Phone: Start: 05-02-2022 Patient encounter procedure Karina Melgar Work Phone: [facility] 600 DO Work Phone: Start: 05-02-2022 ambulatory Christopher Stacimao Facilit y: Start: 04-29-2022 Office outpatient vi sit 25 minutes Karina Melgar Work Phone: [facility] 600 DO Work Phone: Start: 04-29-2022 ambulatory Christopher Sheikh y: Start: 04-18-2022 End: 04-18-2022 ambulatory Karina Melgar Other [employer] Other Start: 04-18-2022 Office outpatient vi sit 15 minutes Karina Melgar [facility] Start: 03-29-2022 End: 03-04-2023 ambulatory ACNP Mae Rodrigez Facility[facility] Start: 03-29-2022 End: 03-03-2023 Recurring Mae Rodrigez [facility] Start: 03-27-2022 End: 03-27-2022 ambulatory Karina Melgar Facility:[facility] Start: 03-27-2022 End: 03-27-2022 Patient encounter procedure MD Karina Melgar Work Phone: [facility] Work Phone: Start: 03-27-2022 End: 03-27-2022 ambulatory MD Karina Melgar Work Phone: [facility] Work Phone: Start: 03-27-2022 Telephone encounter Sejal Nikolay [facility] Start: 03-25-2022 End: 03-25-2022 ambulatory Sejal Nikolay Other [employer] Other Start: 03-25-2022 Telephone encounter Sejal Nikolay [facility] Start: 03-21-2022 ambulatory Christopher Porter Facilit y: Start: 03-14-2022 End: 03-14-2022 ambulatory Sejal Nikolay Other [employer] Other Start: 03-14-2022 Telephone encounter Sejal Nikolay [facility] Start: 03-12-2022 End: 03-12-2022 ambulatory Karina Melgar Other [employer] Other Start: 03-12-2022 Telephone encounter Karina cabrera [facility] Start: 03-11-2022 End: 03-11-2022 Emergency department patient visit Yo Blood Facility:[facility] Start: 03-11-2022 End: 03-11-2022 Emergency department patient visit MD Karina Melgar Work Phone: [facility] Work Phone: Start: 09-26-2021 End: 09-26-2021 ambulatory Shahriar M Victoria II Facility:[facility] Start: 08-28-2021 End: 08-28-2021 ambulatory Shahriar Victoria II Other [employer] Other Start: 08-28-2021 Telephone encounter Shahriar Victoria II [facility] Start: 08-15-2021 (Post-Op) Post-Op Shahriar Victoria II [facility] Start: 08-15-2021 End: 08-15-2021 ambulatory Shahriar M Alejo II [employer] Other Start: 07-18-2021 (Post-Op) Post-Op Shahriar Alejo II [facility] Start: 07-18-2021 End: 07-18-2021 ambulatory Shahriar Alejo II Other [employer] Other Start: 07-02-2021 End: 07-03-2021 ambulatory Kate Sharpchler Facility:[facility] Start: 06-28-2021 End: 06-28-2021 ambulatory Shahriar M Victoria II Facility:[facility] Start: 06-22-2021 (Prolonged) Prolonge d Services Shahriar Victoria II [facility] Start: 06-22-2021 End: 06-22-2021 ambulatory Shahriar Alejo II Other [employer] Other Start: 06-18-2021 End: 06-18-2021 ambulatory Shahriar M Victoria II Facility:[facility] Start: 06-14-2021 End: 06-14-2021 ambulatory Shahriar Crumple II Other [employer] Other Start: 06-14-2021 Encounter for other preprocedural examination Shahriar Alejo II [facility] Start: 06-14-2021 Patient encounter procedure Shahriar Crumple II [facility] Start: 05-24-2021 End: 05-24-2021 ambulatory Karina Melgar Other [employer] Other Start: 05-24-2021 Encounter for other preprocedural examination Karina Melgar [facility] Start: 05-24-2021 Office outpatient vi sit 15 minutes Karina Melgar [facility] Start: 03-22-2021 End: 03-22-2021 ambulatory Lynn Gurrola Other [employer] Other Start: 03-22-2021 Encounter for other preprocedural examination Shahriar Victoria II [facility] Start: 03-22-2021 Telephone encounter Shahriar Crumple II [facility] Start: 03-21-2021 End: 03-21-2021 ambulatory Shahriar Crumple II Other [employer] Other Start: 03-21-2021 Office outpatient ne w 45 minutes Shahriar Victoria II [facility] Start: 02-13-2021 End: 02-13-2021 ambulatory Karina Melgar Other [employer] Other Start: 02-13-2021 Office outpatient vi sit 15 minutes Karina Melgar [facility] Start: 01-29-2021 End: 01-29-2021 ambulatory Karina Melgar Other [employer] Other Start: 01-29-2021 Office outpatient vi sit 15 minutes Karina Melgar [facility] Start: 04-01-2020 End: 04-01-2020 Orders Only Alina Bueno Work Phone: [facility] Covid Vaccine Clinic Procedures Date Procedure Procedure [...] Result Comment: PERF ORMED BY: [facility] [place] [address] PATHOLOGIST DIE REPAIRER STAMPING EYAD HOWARD M.D. Start: 02-25-2016 Total colonoscopy Devon xenia Melgar Work Phone: Arthroplasty of knee Karina Melgar Work Phone: Cardioversion Karina floyd Work Phone: Excision of cyst Karina Lisa Dianne lliasabiha Work Phone: Hernia repair Karina floyd Work Phone: History of hernia repair Catracho Cuetoe Procedure on prostate Karina Melgar Work Phone: Total replacement of hip Tho marvin Melgar Work Phone: Plan of Treatment Date Care Activity Detail Author Start: 04-11-2023 End: 04-11-2023 Patient encounter procedure 04/11/2023 10:30 AM EST Office Visit [facility] [address] [place], [place] [id number] Toni Goldberg MD [address] [place], [place] [id number] [facility] Start: 03-11-2023 FUV, Provider: Christopher Porter, Status: Pen, Time: 8:40 AM FUV, Provider: Christopher Porter, Status: Pen, Time: 8:40 AM [facility] 250 DO Work Phone: Start: 10-25-2022 Influenza vaccination [facility] Start: 08-30-2022 FUV, Provider: Christopher Porter, Status: Pen, Time: 8:40 AM FUV, Provider: Christopher Porter, Status: Pen, Time: 8:40 AM [facility] 600 DO Work Phone: Start: 07-18-2022 SURGNONUH, Provider: Christopher Porter, Status: Pen, Time: 10:00 AM SURGNONUH, Provider: Christopher Porter, Status: Pen, Time: 10:00 AM -[facility] 600 DO Work Phone: Start: 07-05-2022 FUV, Provider: Christopher Porter, Status: Pen, Time: 8:40 AM FUV, Provider: Christopher Porter, Status: Pen, Time: 8:40 AM -[facility] 250 DO Work Phone: Start: 06-20-2022 EKG, Provider: ESTELA CLARKE [employer] SAL[employer] MANAGER 1,[id number], Status: Pen, Time: 1:00 PM EKG, Provider: ESTELA CLARKE [employer] SALES MANAGER 1,[id number], Status: Pen, Time: 1:00 PM -[facility] 250 DO Work Phone: Start: 06-11-2022 SURGNONUH, Provider: Christopher Porter, Status: Pen, Time: 2:00 PM SURGNONUH, Provider: Christopher Porter, Status: Pen, Time: 2:00 PM -[facility] 250 DO Work Phone: Start: 06-04-2022 FUV, Provider: Christopher Porter, Status: Pen, Time: 8:20 AM FUV, Provider: Christopher Porter, Status: Pen, Time: 8:20 AM -[facility] 600 DO Work Phone: Start: 05-10-2022 EKG, Provider: ESTELA CLARKE [employer] SALES MANAGER 1,[id number], Status: Pen, Time: 2:00 PM EKG, Provider: ESTELA CLARKE [employer]IONAL SALES MANAGER 1,[id number], Status: Pen, Time: 2:00 PM -[facility] 250 DO Work Phone: Start: 05-02-2022 EKG, Provider: ESTELA HAMPTON REGIONAL SALES MANAGER 1,[id number], Status: Pen, Time: 1:00 PM EKG, Provider: ESTELA HAMPTON [employer]ION[employer] SALES MANAGER 1,[id number], Status: Pen, Time: 1:00 PM [facility] 600 DO Work Phone: Start: 10-26-2019 Influenza vaccination given Sequential Influenza Vaccine (#1) [facility] Start: 11-24-2014 Annual wellness visit [facility] Start: 2013 Pneumococcal vaccination [facility] Start: 2013 [...] of colon [facility] Start: 11-29-1983 Lipid panel [facility] Start: 1966 Hepatitis C antibody, confirmatory test Hepatitis C Screening [facility] Start: 1966 [facility] Start: 1966 Tetanus + diphtheria + acellular pertussis vaccine (product) [facility] Start: 1964 COVID-19 Vaccine (1 of 2) COVID-19 Vaccine (1 of 2) [facility] Start: 1960 Adolescent depression screening assessment Depression Screening (PHQ9) [facility] Start: 1954 Pneumococcal vaccination Pneumococcal Vaccine(s) (65+ yrs) (1 of 2 - PCV) [facility] Start: 11-29-1951 History and physical examination, annual for health maintenance Wellness Visit [facility] Start: 05-29-1949 COVID-19 Vaccine (#1) COVID-19 Vaccine (#1) [facility] Start: 05-29-1949 [facility] Start: 1948 Fall risk assessment Falls Risk Assessment [facility] Start: 1948 Prostate specific antigen measurement PSA Level [facility] Start: 1948 Screening for malignant neoplasm of colon [facility] Start: 1948 Tetanus vaccination Tetanus: Every 10yrs [facility] Assay [facility] Assay of phosphorus inorganic [facility] Basic metabolic 2000 panel - Serum or Plasma [employer] Work Phone: CBC panel - Blood by Automated [employer] End: 02-16-2023 CT Thigh - left WO contrast [employer] Work Phone: Patient Education Atrial Fibrill ation Cough, Adult ED Bronchitis, Adult ED [facility] Work Phone: Patient referral [facility] Work Phone: End: 02-18-2023 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 6 influenza, seasonal, injectable Patient Objection Karina Melgar Other [employer] Other Payers Date Payer Category Payer Unknown [id number] 2023 Unknown [id number] 2022 Unknown 2021 Self-pay [id number] 2021 Unknown [id number] 2.1 [id number] 2013 Medicare [id number] 2.1 6.840.1.450216.19 2013 Medicare [id number]. [id number] 1948 Unknown [id number] 2.16. 840.1.770566.3.579.2.356 1948 Unknown [id number] 2.16. 840.1.815533.3.579.2.356 1948 Unknown [id number] 2.16. 840.1.024949.3.579.2.356 1948 Unknown [id number] 2.16. 840.1.502263.3.579.2.356 1948 Unknown [id number] 2.16. 840.1.370892.3.579.2.356 1948 Unknown [id number] 2.16. 840.1.481447.3.579.2.356 1948 Unknown [id number] 2.16. 840.1.806213.3.579.2.356 1948 Unknown [id number] 2.16. 840.1.019614.3.579.2.356 1948 Unknown [id number] 2.16. 840.1.956215.3.579.2.356 1948 Unknown [id number] 2.16. 840.1.163509.3.579.2.356 1948 Unknown [id number] 2.16. 840.1.027774.3.579.2.732 1948 Unknown [id number] 2.16. 840.1.782278.3.579.2.732 1948 Unknown [id number] 2.16. 840.1.939955.3.579.2.732 1948 Unknown [id number] 2.16. 840.1.689705.3.579.2.732 1948 Unknown [id number] 2.16. 840.1.743193.3.579.2.732 1948 Unknown [id number] 2.16. 840.1.368147.3.579.2.732 1948 Unknown [id number] 2.16. 840.1.640326.3.579.2.732 1948 Unknown [id number] 2.16. 840.1.055239.3.579.2.732 1948 Unknown [id number] 2.16. 840.1.850433.3.579.2.732 1948 Unknown [id number] 2.16. 840.1.436292.3.579.2.732 1948 Unknown [id number] 2.16. 840.1.357486.3.579.2.732 1948 Unknown [id number] 2.16. 840.1.700200.3.579.2.732 1948 Unknown [id number] 2.16. 840.1.879447.3.579.2.732 1948 Unknown [id number] 2.16.8 40.1.449539.3.579.2.727 1948 Unknown [id number] 2.16.8 40.1.249453.3.579.2.727 1948 Unknown [id number] 2.16.8 40.1.941710.3.579.2.727 Unknown 1970 2.16.8 40.1.255608.3.579.2.531 Unknown [id number] 2.16.8 40.1.271503.3.579.2.531 Unknown [id number] 2.16.8 40.1.930259.3.579.2.531 Unknown [id number] 2.16.8 40.1.256742.3.579.2.531 Unknown [id number] 2.16.8 40.1.277984.3.579.2.531 Unknown [id number] 2.16.8 40.1.242594.3.579.2.531 Unknown [id number] 2.16.8 40.1.365740.3.579.2.531 Unknown [id number] 2.16.8 40.1.969745.3.579.2.531 Social History Date Type Detail Facility Tobacco smoking status NHIS Unknown if ever smoked [facility] Start: 1950 Sex Assigned At [facility] Sex [facility]igned At [facility] Start: 03-11-2022 End: 03-10-2023 Tobacco smoking status LAIS Never smoked tobacco (finding) [facility] Start: 1950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
[2023-03-31 10:27] LABS: Prothrombin Time 49.7 sec (9.0-11.6)
[2023-03-31 10:28] LABS: INR 5.14
== END 2023-03-31 03:18 | disposition home or self-care (01) ==
LOC: LAB 03:17
PROVIDERS: PCP Family Medicine; Visit Provider Family Medicine
DX: I48.91 Unspecified atrial fibrillation (principal)
CPT/HCPCS: 36415; 85610

== ENCOUNTER 2023-04-02 07:50 | Outpatient (REF) | payer MEDICARE, SELFPAY ==
--- OUTSIDE RECORDS SUMMARY | 2023-04-02 08:12 | XMS_ITS | CCD ---
Author Name Unknown Address [address] [place] [address] Organization [facility] Care Team Providers Care Sales Team Recruiter Name Role Phone No, Physician Primary Care Provider UnavailShahriar Frederick II Unavailable Shahriar Dhillon II Unavailable [phone] Karina Melgar Unavailable Lynn Gurrola Unavailable MD Karina Melgar Primary Care Provider DO Yo Blood Emergency Provider [phone] LISSETH Link Attending Provider Sejal Link Unavailable [...] Medication Allergies] Propensity to adverse reactions (disorder) [facility] Repository Medications Current Medications Medication Drug Class(es) Dates Sig (Normalized) Sig (Original) acetaminophen 325 mg / HYDROcodone bitartrate 5 mg oral tablet (2 sources) Opioid Agonist Start: 07-28-2020 [place] 325 mg-5 mg oral tablet 1 tab(s), [...] Active docusate sodium 50 mg / sennosides, shelter 8.6 mg oral tablet (3 sources) Start: [...] MG Oral Tablet Take as directed by [facility] coumadin clinic Quantity: 0 Refills: 0 Ordered: [...] Start: 06-14-2021 take 2 tablets by mo [facility] every eight hours for pain Acetaminophen 500 [...] administer with spacer take 2 puff(s) by [facility] every four hours as needed ALBUTEROL INHALATION Inhale 2 Puffs by mouth every 4 hours as needed for Other (sob). 0 Active take 2 puff(s) by [facility] every four hours as needed ALBUTEROL INHALATION [...] 1 capsule by mouth twice daily Iron Lpj-P52-[id number]-Gx-W-Buuhe Acid (Ferocon) 110-0.5 mg Capsule Discontinued 1 [...] 5:18pm Start: 06-14-2021 [facility] Aspirin 81 MG [...] Discontinued Start: 06-14-2021 take 1 tablet by [facility] three times daily as needed for nausea Ondansetron HCl 8 MG 1 tablet as needed for nausea Orally TID for 10 days Med to Bed Upon Discharge DOS: 07/02/2021 May, Active polyethylene glycol 3350 16649 mg powder for oral solution (4 sources) [...] Discontinued Start: 07-05-2022 take 1 capsule by [facility] every twelve hours propafenone 425 mg oral [...] Active Start: 04-29-2022 take 1 capsule by [facility] every twelve hours Propafenone HCl ER 225 MG Oral Capsule Extended Release 12 Hour TAKE 1 CAPSULE EVERY 12 HOURS. Quantity: 180 Refills: 0 Ordered: 29-Apr-2022 Christopher Porter MD Start : 29-Apr-2022 Active new start Prostate Support TABS (10 sources) Prostate Support TABS TAKE 1 TABLET DAILY DIRECTED. Quantity: 0 Refills: 0 Ordered: 21-Mar-2022 DO Active Saw-Vit E-Sod Ajv-Yrg-Pzda-Pyg (Prostate Health) 160-100-100 mg-unit-mcg Tablet (2 sources) Start: End: 3 take 1 capsule by mouth once daily Saw-Vit E-Sod Lxi-Jhn-Nccw-Pyg (Prostate Health) 160-100-100 mg-unit-mcg Tablet Discontinued 1 CAP PO Daily July 27, 2017 11:00pm March 11, 2022 5:18pm sennosides, shelter 8.6 mg oral tablet (1 source) Start: [...] on Fri02/17/23 at 1600, Until Discontinued Vit C-S.Bwcbuj-Kykxiy-Pgdab Sd (Tart Bhagat) 91-517-59-75-20 mg Capsule (2 sources) Start: 07-28-2017 End: 08-09-2019 Vit C-S.Qocegh-Xhzvfx-Tglfm Sd (Tart Bhagat) 30-540-63-75-20 mg Capsule Discontinued 1 CAP PO Twice [...] source) Long-term current use of anticoagulant; Translations: [retirement (current) use of anticoagulants] Episodic Other aftercare [...] 02-13-2021 Episodic Other aftercare (2 sources) 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 3 mg/dL [facility] Chloride [Moles/Vol] 102 mmol/L 98 - 107 mmol/L [facility] CO2 [Moles/Vol] 30 mmol/L 21 - 31 mmol/L [facility] Creatinine [Mass/Vol] 0.64 mg/dL Low 0.70 - 1.30 mg/dL [facility] GFR/1.73 sq M.predicted CKD-EPI (S/P/Bld) [Vol rate/Area] 99 - PINF [facility] Glucose [Mass/Vol] 129 mg/dL High 74 - 109 mg/dL [facility] Interpretation and review of laboratory results Abnormal [...] 8.9 g/dL Low 13.9 - 16.3 g/dL [facility] Interpretation and review of laboratory results Abnormal [facility] MCH (RBC) [Entitic mass] 30.8 pg 26.0 - 34.0 pg [facility] MCHC (RBC) [Mass/Vol] 32.5 g/dL 32.0 - 35.9 g/dL [facility] MCV (RBC) [Entitic vol] 95 fL 80 - 100 fL [facility] Platelet mean volume (Bld) [Entitic vol] 8.0 fL 7.5 - 11.2 fL [facility] Platelets (Bld) [#/Vol] 376 10*3/uL 150 - 400 K/uL [facility] RBC (Bld) [#/Vol] 2.90 10*6/uL Low [facility] WBC (Bld) [#/Vol] 8.5 10*3/uL 4.5 - 11.5 K/uL [facility] MAGNESIUM[facility] 02-25-2023 Magnesium [Mass/Vol] 1.9 mg/dL 1.6 - 2.8 mg/dL [facility] No Panel Informationon 02-25 Interpretation and review of laboratory results [facility] PHOS[facility] 02-25-2023 Phosphate [Mass/Vol] 2.9 mg/dL 2.3 - 4.2 mg/dL [facility] PROTHROMBIN TIME AND INRon 0 02-25-2023 INR Coag (PPP) [Relative time] 1.13 {INR} High 0.90 - 1.10 [facility] Interpretation and review of laboratory results Abnormal [facility] PT Coag (PPP) [Time] 12.6 s [facility] ANTI FXA-LMW HEPARINon 02-24 LMW Heparin Chromogenic method Qn (PPP) 0.32 IU/mL [facility] Basic metabolic 2000 panelon 02-24-2023 Anion gap [Moles/Vol] 9 mmol/L Low 10 - 20 Met [facility] Calcium [Mass/Vol] 7.7 mg/dL Low 8.6 - 10. 3 mg/dL [facility] Chloride [Moles/Vol] 101 mmol/L 98 - 107 mmol/L [facility] CO2 [Moles/Vol] 30 mmol/L 21 - 31 mmol/L [facility] Creatinine [Mass/Vol] 0.60 mg/dL Low 0.70 - 1.30 mg/dL [facility] GFR/1.73 sq M.predicted CKD-EPI (S/P/Bld) [Vol rate/Area] 101 - PINF [facility] Glucose [Mass/Vol] 98 mg/dL 74 - 109 mg/dL [facility] Interpretation and review of laboratory results Abnormal [facility] Potassium [Moles/Vol] 4.0 mmol/L 3.5 - 5.0 mmol/L [facility] Sodium [Moles/Vol] 136 mmol/L 136 - 145 mmol/L [facility] Urea nitrogen [Mass/Vol] 19 mg/dL 7 - 25 mg/dL [facility] CBC panel Auto (Bld)on 02-24 Erythrocyte distribution width (RBC) [Ratio] 15.4 % High 11.5 - 14.5 % [facility] Hemat[facility] (Bld) [Volume fraction] 25.2 % Low 41.0 - 53.0 % [facility] Hemoglobin (Bld) [Mass/Vol] 8.3 g/dL Low 13.9 - 16.3 g/dL [facility] Interpretation and review of laboratory results Abnormal [facility] MCH (RBC) [Entitic mass] 30.7 pg 26.0 - 34.0 pg [facility] MCHC (RBC) [Mass/Vol] 33.1 g/dL 32.0 - 35.9 g/dL [facility] MCV (RBC) [Entitic vol] 93 fL 80 - [address] [facility] Platelet mean volume (Bld) [Entitic vol] 7.6 fL 7.5 - 11.[address] [facility] [facility] Platelets (Bld) [#/Vol] 320 10*3/uL 150 - 400 K/uL [facility] RBC (Bld) [#/Vol] 2.72 10*6/uL Low [facility] WBC (Bld) [#/Vol] 7.6 10*3/uL 4.5 - 11.5 K/uL [facility] MAGNESIUMon 02-24-2023 Magnesium [Mass/Vol] 1.9 mg/dL 1.6 - 2.8 mg/dL [facility] No Panel Informationon 02-24 Interpretation and review of laboratory results Normal [facility] PHOSPHORUSon 02-24-2023 Phosphate [Mass/Vol] 2.7 mg/dL 2.3 - 4.2 mg/dL [facility] Basic metabolic 2000 panelon 02-23-2023 Anion gap [Moles/Vol] 9 mmol/L Low 10 - 20 [facility] Calcium [Mass/Vol] 7.8 mg/dL Low 8.6 - 10. 3 mg/dL [facility] Chloride [Moles/Vol] 99 mmol/L 98 - 107 mmol/L [facility] CO2 [Moles/Vol] 32 mmol/L High 21 - 31 mmol/L [facility] Creatinine [Mass/Vol] 0.59 mg/dL Low 0.70 - 1.30 mg/dL [facility] GFR/1.73 sq M.predicted CKD-EPI (S/P/Bld) [Vol rate/Area] 102 - PINF [facility] Glucose [Mass/Vol] 88 mg/dL 74 - 109 mg/dL [facility] Interpretation and review of laboratory results Abnormal [facility] Potassium [Moles/Vol] 4.0 mmol/L 3.5 - 5.0 mmol/L [facility] Sodium [Moles/Vol] 136 mmol/L 136 - 145 mmol/L [facility] Urea nitrogen [Mass/Vol] 22 mg/dL 7 - 25 mg/dL [facility] CBC panel Auto (Bld)on 02-23 Erythrocyte distribution width (RBC) [Ratio] 15.3 % High 11.5 - 14.5 % [facility] Hematocrit (Bld) [Volume fraction] 26.6 % Low 41.0 - 53.0 % [facility] Hemoglobin (Bld) [Mass/Vol] 8.7 g/dL Low 13.9 - 16.3 g/dL [facility] Interpretation and review of laboratory results Abnormal [facility] MCH (RBC) [Entitic mass] 30.4 pg 26.0 - 34.0 pg [facility] MCHC (RBC) [Mass/Vol] 32.7 g/dL 32.0 - 35.9 g/dL [facility] MCV (RBC) [Entitic vol] 93 fL 80 - 100 fL [facility] Platelet mean volume (Bld) [Entitic vol] 8.7 fL 7.5 - 11.[address] [facility] Platelets (Bld) [#/Vol] 285 10*3/uL 150 - 400 K/uL [facility] RBC (Bld) [#/Vol] 2.86 10*6/uL Low [facility] WBC (Bld) [#/Vol] 8.2 10*3/uL 4.5 - 11.5 K/uL [facility] MAGNESIUMon 02-23-2023 Magnesium [Mass/Vol] 2.0 mg/dL 1.6 - 2.8 mg/dL [facility] No Panel Informationon 02-23 Interpretation and review of laboratory results Normal [facility] PHOSPHORUSon 02-23-2023 Phosphate [Mass/Vol] 2.6 mg/dL 2.3 - 4.2 mg/dL [facility] ANTI FXA-LMW HEPARINon 02-22 ANTI FXA-LMW HEPARIN ASSAY 0.48 IU/mL Normal [facility] Comment on above: Order Comment: The r ecommended therapeutic range for treatment of thrombosis with Low Molecular Weight Heparin is 0.5 - 1.0 IU/mLThe recommended range for VTE prophylaxis with Low Molecular Weight Heparin is 0.2 - 0.4 IU/mL. Performed By: #### T S #### [facility] [address] [place], [address] LMW Heparin Chromogenic method Qn (PPP) 0.48 IU/mL [facility] BASIC METABOLIC PANELon 01-26 Anion gap [Moles/Vol] 7 mmol/L Low 10-20 [facility] Comment on above: Performed By: #### 8 2948 #### NURSING GLUCOSE PROGRAM [address] [place], [address] Calcium [Mass/Vol] 7.7 mg/dL Low 8.6-10.3 [facility] Comment on above: Result Comment: Note updated reference ranges. Performed By: #### 8 2948 #### NURSING GLUCOSE PROGRAM [address] [place], [address] Chloride [Moles/Vol] 101 mmol/L Normal 98-107 [facility] Comment on above: Result Comment: Note updated reference ranges. Performed By: #### 8 2948 #### NURSING GLUCOSE PROGRAM [address] [place], [address] CO2 [Moles/Vol] 33 mmol/L High 21-31 [facility] Comment on above: Result Comment: Note updated reference ranges. Performed By: #### 8 2948 #### NURSING GLUCOSE PROGRAM [address] [place], [address] Creatinine [Mass/Vol] 0.60 mg/dL Low 0.70-1.30 [facility] Comment on above: Result Comment: Note updated reference ranges. Performed By: #### 8 2948 #### NURSING GLUCOSE PROGRAM [address] [place], [address] ESTIMATED GFR (CKD-EPI) 101 mL/min/1.73sqm Normal >=60 [facility] Comment on above: Result Comment: 2020 [...] Inclusion of Race in Diagnosing Kidney Disease. [place] Journal of Kidney Diseases 202;79(2):268-88.e1. 2. N Engl J Med 1 Vol. 385 Issue 19 Pages 4716-9877 Performed By: #### 8 2948 #### NURSING GLUCOSE PROGRAM [address] [place], [address] Glucose [Mass/Vol] 105 mg/dL Normal 74-109 [facility] Comment on above: Performed By: #### 8 2948 #### NURSING GLUCOSE PROGRAM [address] [place], [address] Potassium [Moles/Vol] 3.6 mmol/L Normal 3.5-5.0 [facility] Comment on above: Result Comment: Note updated reference ranges. Note updated reference ranges. Performed By: #### 8 2948 #### NURSING GLUCOSE PROGRAM [address] [place], [address] Sodium [Moles/Vol] 137 mmol/L Normal 136-145 [facility] Comment on above: Result Comment: Note updated reference ranges. Performed By: #### 8 2948 #### NURSING GLUCOSE PROGRAM [address] [place], [address] Urea nitrogen [Mass/Vol] 23 mg/dL Normal 7-25 [facility] Comment on above: Result Comment: Note updated reference ranges. Performed By: #### 8 2948 #### NURSING GLUCOSE PROGRAM [address] [place], [address] Basic metabolic 2000 panelon 02-22-2023 Anion gap [...] [Mass/Vol] 105 mg/dL 74 - 109 mg/dL [facility] Interpretation and review of laboratory results Abnormal [facility] Potassium [Moles/Vol] 3.6 mmol/L 3.5 - 5.0 mmol/L [facility] Sodium [Moles/Vol] 137 mmol/L 136 - 145 mmol/L [facility] Urea nitrogen [Mass/Vol] 23 mg/dL 7 - 25 mg/dL [facility] CBC panel Auto (Bld)on 02-22 Erythrocyte distribution width (RBC) [Ratio] 15.4 % High 11.5 - 14.5 % [facility] Hematocrit (Bld) [Volume fraction] 23.9 % Low 41.0 - 53.0 % [facility] Hemoglobin (Bld) [Mass/Vol] 8.0 g/dL Low 13.9 - 16.3 g/dL [facility] Interpretation and review of laboratory results Abnormal [facility] MCH (RBC) [Entitic mass] 30.7 pg 26.0 - 34.0 pg [facility] MCHC (RBC) [Mass/Vol] 33.3 g/dL 32.0 - 35.9 g/dL [facility] MCV (RBC) [Entitic vol] 92 fL 80 - [address] Platelet mean volume (Bld) [Entitic vol] 8.7 fL 7.5 - 11.[address] [facility] Platelets (Bld) [#/Vol] 227 10*3/uL 150 - 400 K/uL [facility] RBC (Bld) [#/Vol] 2.60 10*6/uL Low [facility] WBC (Bld) [#/Vol] 7.6 10*3/uL 4.5 - 11.5 K/uL [facility] COMPLETE BLOOD COUNTon 02-22 Erythrocyte distribution width (RBC) [Ratio] 15.4 % High 11.5-14.5 [facility] Comment on above: Performed By: #### T S #### [facility] [address] [place], [place], Hematocrit (Bld) [Volume fraction] 23.9 % Low 41.0-53.0 [facility] Comment on above: Performed By: #### T S #### S [facility] LAB[facility]AT[facility] [address] [place], [place], Hemoglobin (Bld) [Mass/Vol] 8.0 g/dL Low 13.9-16.3 [facility] Comment on above: Performed By: #### T S #### [facility] [address] [place] [address], MCH (RBC) [Entitic mass] 30.7 pg Normal 26.0-34.0 [facility] Comment on above: Performed By: #### T S #### [facility] [address] [place] [address], MCHC (RBC) [Mass/Vol] 33.3 g/dL Normal 32.0-35.9 [facility] Comment on above: Performed By: #### T S #### [facility] [address] [place] [address], MCV (RBC) [Entitic vol] 92 fL Normal 80-100 [facility] Comment on above: Performed By: #### T S #### [facility] [address] [place] [address], Platelet mean volume (Bld) [Entitic vol] 8.7 fL Normal 7.5-11.2 [facility] Comment on above: Performed By: #### T S #### S [facility] [address] [place], [place], Platelets (Bld) [#/Vol] 227 10*3/uL Normal 150-400 [facility] Comment on above: Performed By: #### T S #### S [facility] LAB[facility] [address] [place], [place], RBC (Bld) [#/Vol] 2.60 10*6/uL Low 4.50-5.90 [facility] Comment on above: Performed By: #### T S #### [facility] [address] [place], [place], WBC (Bld) [#/Vol] 7.6 10*3/uL Normal 4.5-11.5 [facility] Comment on above: Performed By: #### T S #### [facility] [address], [place], Care Plan Noteon 02-22-2023 Primary Special Educator Authentication Interface Message Text Problem: Routine Care: [...] and once discontinued Outcome: Progressing Normal [facility] MAGNESIUMon 02-22-2023 Magnesium [Mass/Vol] 2.0 mg/dL Normal 1.6-2.8 [facility] Comment on above: Performed By: #### 8 2948 #### NURSING GLUCOSE PROGRAM [address] [place], [address] Magnesium [Mass/Vol] 2.0 mg/dL 1.6 - 2.8 mg/dL [facility] No Panel Informationon 02-22 Interpretation and review of laboratory results Normal [facility] PHOSPHORUSon 02-22-2023 Phosphate [Mass/Vol] 2.8 mg/dL Normal 2.3-4.2 [facility] Comment on above: Performed By: #### 8 2948 #### NURSING GLUCOSE PROGRAM [address] [place], [address] Phosphate [Mass/Vol] 2.8 mg/dL 2.3 - 4.2 mg/dL [facility] BASIC METABOLIC PANELon 01-25 Anion gap [Moles/Vol] 9 mmol/L Low 10-20 [facility] Comment on above: Performed By: #### 8 2948 #### NURSING GLUCOSE PROGRAM [address] [place], [address] Calcium [Mass/Vol] 7.5 mg/dL Low 8.6-10.3 [facility] Comment on above: Result Comment: Note updated reference ranges. Performed By: #### 8 2948 #### NURSING GLUCOSE PROGRAM [address] [place], [address] Chloride [Moles/Vol] 100 mmol/L Normal 98-107 [facility] Comment on above: Result Comment: Note updated reference ranges. Performed By: #### 8 2948 #### NURSING GLUCOSE PROGRAM [address] [place], [address] CO2 [Moles/Vol] 33 mmol/L High 21-31 [facility] Comment on above: Result Comment: Note updated reference ranges. Performed By: #### 8 2948 #### NURSING GLUCOSE PROGRAM [address] [place], [address] Creatinine [Mass/Vol] 0.65 mg/dL Low 0.70-1.30 [facility] Comment on above: Result Comment: Note updated reference ranges. Performed By: #### 8 2948 #### NURSING GLUCOSE PROGRAM [address] [place], [address] ESTIMATED GFR (CKD-EPI) 99 mL/min/1.73sqm Normal >=60 [facility] Comment on above: Result Comment: 2020 [...] Inclusion of Race in Diagnosing Kidney Disease. [place] Journal of Kidney Diseases 2021;79(2):268-88.e1. 2. N Engl J Med 1 Vol. 385 Issue 19 Pages 8408-7395 Performed By: #### 8 2948 #### NURSING GLUCOSE PROGRAM [address] [place], [address] Glucose [Mass/Vol] 104 mg/dL Normal 74-109 [facility] Comment on above: Performed By: #### 8 2948 #### NURSING GLUCOSE PROGRAM [address] [place], [address] Potassium [Moles/Vol] 3.5 mmol/L Normal 3.5-5.0 [facility] Comment on above: Result Comment: Note updated reference ranges. Note updated reference ranges. Performed By: #### 8 2948 #### NURSING GLUCOSE PROGRAM [address] [place], [address] Sodium [Moles/Vol] 138 mmol/L Normal 136-145 [facility] Comment on above: Result Comment: Note updated reference ranges. Performed By: #### 8 2948 #### NURSING GLUCOSE PROGRAM [address] [place], [address] Urea nitrogen [Mass/Vol] 24 mg/dL Normal 7-25 [facility] Comment on above: Result Comment: Note updated reference ranges. Performed By: #### 8 2948 #### NURSING GLUCOSE PROGRAM [address] [place], [address] BLOOD CULTUREon 02-21-2023 Bacteria identified Cx Nom (Bld) No Growth [facility] Interpretation and review of laboratory results Normal [facility] Basic metabolic 2000 panelon 02-21-2023 Anion gap [Moles/Vol] 9 mmol/L Low 10 - 20 [facility] Calcium [Mass/Vol] 7.5 mg/dL Low 8.6 - 10. 3 mg/dL [facility] Chloride [Moles/Vol] 100 mmol/L 98 - 107 mmol/L [facility] CO2 [Moles/Vol] 33 mmol/L High 21 - 31 mmol/L [facility] Creatinine [Mass/Vol] 0.65 mg/dL Low 0.70 - 1.30 mg/dL [facility] GFR/1.73 sq M.predicted CKD-EPI (S/P/Bld) [Vol rate/Area] 99 - PINF [facility] Glucose [Mass/Vol] 104 mg/dL 74 - 109 mg/dL [facility] Interpretation and review of laboratory results Abnormal [facility] Potassium [Moles/Vol] 3.5 mmol/L 3.5 - 5.0 mmol/L [facility] Sodium [Moles/Vol] 138 mmol/L 136 - 145 mmol/L [facility] Urea nitrogen [Mass/Vol] 24 mg/dL 7 - 25 mg/dL [facility] CBC panel Auto (Bld)on 02-21 Erythrocyte distribution width (RBC) [Ratio] 14.5 % 11.5 - 14.5 % [facility] Hematocrit (Bld) [Volume fraction] 21.8 % Low 41.0 - 53.0 % [facility] Hemoglobin (Bld) [Mass/Vol] 7.6 g/dL Low 13.9 - 16.3 g/dL [facility] Interpretation and review of laboratory results Abnormal [facility] MCH (RBC) [Entitic mass] 31.5 pg 26.0 - 34.0 pg [facility] MCHC (RBC) [Mass/Vol] 34.6 g/dL 32.0 - 35.9 g/dL [facility] MCV (RBC) [Entitic vol] 91 fL 80 - 100 fL [facility] Platelet mean volume (Bld) [Entitic vol] 8.3 fL 7.5 - 11.2 fL [facility] Platelets (Bld) [#/Vol] 199 10*3/uL 150 - 400 K/uL [facility] RBC (Bld) [#/Vol] 2.40 10*6/uL Low [facility] WBC (Bld) [#/Vol] 9.6 10*3/uL 4.5 - 11.5 K/uL [facility] COMPLETE BLOOD COUNTon 02-21 Erythrocyte distribution width (RBC) [Ratio] 14.5 % Normal 11.5-14.5 [facility] Comment on above: Performed By: #### T S #### [facility] [address] [place] [address], Hematocrit (Bld) [Volume fraction] 21.8 % Low 41.0-53.0 [facility] Comment on above: Performed By: #### T S #### [facility] [address] [place] [address], Hemoglobin (Bld) [Mass/Vol] 7.6 g/dL Low 13.9-16.3 [facility] Comment on above: Performed By: #### T S #### [facility] [address] [place] [address], MCH (RBC) [Entitic mass] 31.5 pg Normal 26.0-34.0 [facility] Comment on above: Performed By: #### T S #### [facility] [address] [place] [address], MCHC (RBC) [Mass/Vol] 34.6 g/dL Normal 32.0-35.9 [facility] Comment on above: Performed By: #### T S #### [facility] [address] [place] [address], MCV (RBC) [Entitic vol] 91 fL Normal 80-100 [facility] Comment on above: Performed By: #### T S #### [facility] [address] [place] [address], Platelet mean volume (Bld) [Entitic vol] 8.3 fL Normal 7.5-11.2 [facility] Comment on above: Performed By: #### T S #### S PATHOLOGY LABORATORY [address] [place] [address], Platelets (Bld) [#/Vol] 199 10*3/uL Normal 150-400 [facility] Comment on above: Performed By: #### T S #### [facility] [address] [place], [place], RBC (Bld) [#/Vol] 2.40 10*6/uL Low 4.50-5.90 [facility] Comment on above: Performed By: #### T S #### [facility] [address] [place], [place], WBC (Bld) [#/Vol] 9.6 10*3/uL Normal 4.5-11.5 [facility] Comment on above: Performed By: #### T S #### S [facility] LAB[facility]AT[facility] [address] [place], [place], Care Plan Noteon 02-21-2023 Primary Special Educator Authentication Interface Message Text Problem: Routine Care: [...] and once discontinued Outcome: Progressing Normal [facility] GLUCOSE, FINGERSTICK-IN OFFI CEon 02-21-2023 Glucose [Mass/Vol] 144 mg/dL High 80-116 [facility] Comment on above: Performed By: #### 8 2948 #### NURSING GLUCOSE PROGRAM [address] [place], [address] Glucose [Mass/Vol] 144 mg/dL High 80 - 116 mg/dL [facility] Interpretation and review of laboratory results Abnormal [facility] MAGNESIUMon 02-21-2023 Magnesium [Mass/Vol] 1.9 mg/dL Normal 1.6-2.8 [facility] Comment on above: Performed By: #### T S #### S PATHOLOGY LABORATORY [address] [place] [address], [id number] Magnesium [Mass/Vol] 1.9 mg/dL 1.6 - 2.8 mg/dL [facility] No Panel Informationon 02-21 Interpretation and review of laboratory results Normal [facility] PHOSPHORUSon 02-21-2023 Phosphate [Mass/Vol] 2.3 mg/dL Normal 2.3-4.2 [facility] Comment on above: Performed By: #### T S #### [facility] [address] [place], [id number] Phosphate [Mass/Vol] 2.3 mg/dL 2.3 - 4.2 mg/dL [facility] Procedureson 02-21-2023 Primary Special Educator Authentication Interface Message Text Upper Extremities Venous Duplex [address] [place], [place] [address] Status:Open Demographics Patient name: JUAN Leung Gender: Male Date of : 1950 Age: 72 year(s) Procedure Information Procedure date: 02/21/2023 2:15 PM Procedure type: Vascular Proc. sub type: Veins, Upper Extremities Veins, LIMITED DUPLEX VEIN SCAN UE Accession no: [id number] Patient status: Routine Study location: Portable Technical quality: Poor visualization Limitation reason: Poor acoustical window Procedure Staff Referring Physician: SUKHWINDER BRIAN Wire Stockkeeper: RICKEY NúñezT Interpreting physician: NATAN Ceja MD Indications Pain, edema, discoloration. Risk Factors Additional comments: No significant history Page 1/ JUAN Leung 1950 [id number] 02/21/2023 2:15 PM Upper Extremities Venous Duplex [...] jugular vein. Page 2/ JUAN Leung 1950 [id number] 02/21/2023 2:15 PM Invalid Interpretation Code [facility] Progress Noteson 02-21-2023 Primary Special Educator Authentication Interface Message Text Preliminary Vascular Lab Report Duplex Left Upper Extremity Vein Scan No evidence deep vein thrombus left upper extremity, official to follow report to follow. Masoud Castañeda RVT Normal [facility] Primary Special Educator Authentication Interface Message Text Pt is rec for SNF Pt was denied from [facility] due to no available bed. Ruben will like updates Friday before deciding to clinically accept. Pt is still pending med readiness Pt will not need precert SW will continue to follow Aj BRASHER,TWX OPERATOR Normal [facility] Primary Special Educator Authentication Interface Message Text At 19:40 patient [...] baseline. Will continue to monitor. Normal [facility] URINALYSIS WITH REFLEX CULTU RE PERFORMABLEon [...] ASIA Freitas, PHOS #### S PATHOLOGY LABORATORY [address] [place] [address], Protein (U) [Mass/Vol] 30 mg/dL Abnormal Negative [facility] Comment on above: Order Comment: A [...] Meredith CH8, PHOS #### [facility] [address] [place] [address], U APPEAR Clear Normal Clear [facility] [...] Meredith CH8, PHOS #### [facility] [address] [place] [address], U BILI Negative Normal Negative [facility] Comment on above: Order Comment: A [...] Meredith CH8, PHOS #### S PATH[facility] LABORATORY [address] [place] [address], U BLOOD Negative Normal Negative [facility] Comment on above: Order Comment: A [...] Meredith, CH8, PHOS #### [facility] [address] [place] [address], U COLOR Yellow Normal Colorless [facility] Comment on above: Order Comment: A [...] Meredith CH8, PHOS #### [facility] [address] [place] [address], U KETONE Negative Normal Negative [facility] Comment on above: Order Comment: A [...] Meredith CH8, PHOS #### S [facility] LABORATORY [address] [place] [address], U LEUK Negative Normal Negative [facility] Comment on above: Order Comment: A [...] CH8, PHOS #### [facility] [address] [place], [place], U MUCOUS Present Normal [facility] Comment on above: Order Comment: A [...] CH8, PHOS #### S PATHOLOG[facility] LABORATORY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 [facility] VANCOMYCIN RANDOMon 02-19-20 23 VANC R 8.2 ug/mL Normal 5.0-40.[address] [facility] Comment on above: Performed By: #### P T #### S PATHOLOGY LABORATORY [address] [place], [place], Vancomycin [Mass/Vol] 8.2 ug/mL 5.0 - 40.0 ug/mL [facility] BASIC METABOLIC PANELon 01-25 Anion gap [Moles/Vol] 11 mmol/L Normal 10-20 [facility] Comment on above: Performed By: #### ASIA Freitas PHOS #### S PATHOLOGY LABORATORY [address] [place], [place], Calcium [Mass/Vol] 8.3 mg/dL Low 8.6-10.3 [facility] Comment on above: Result Comment: Note updated reference ranges. Performed By: ###ASIA Alas PHOS #### [facility] [address] [place] [address], Chloride [Moles/Vol] 105 mmol/L Normal 98-107 [facility] Comment on above: Result Comment: Note updated reference ranges. Performed By: ###ASIA Alas PHOS #### [facility] [address] [place], [place], CO2 [Moles/Vol] 24 mmol/L Normal 21-31 [facility] Comment on above: Result Comment: Note updated reference ranges. Performed By: #### ASIA Freitas, PHOS #### [facility] [address] [place], [place], Creatinine [Mass/Vol] 1.00 mg/dL Normal 0.70-1.30 [facility] Comment on above: Result Comment: Note updated reference ranges. Performed By: #### ASIA Freitas, PHOS #### [facility] [address] [place], [place], ESTIMATED GFR (CKD-EPI) 79 mL/min/1.73sqm Normal >=60 [facility] Comment on above: Result Comment: 2020 [...] Inclusion of Race in Diagnosing Kidney Disease. [place] Journal of Kidney Diseases 2021;79(2):268-88.e1. 2. N Engl J Med 2020 Vol. 385 Issue 19 Pages 6569-8397 Performed By: #### ASIA Freitas, PHOS #### [facility] [address] [place], [place], Glucose [Mass/Vol] 189 mg/dL High 74-109 [facility] Comment on above: Performed By: #### ASIA Freitas, PHOS #### [facility] [address] [place], [place], Potassium [Moles/Vol] 4.0 mmol/L Normal 3.5-5.0 [facility] Comment on above: Result Comment: Note updated reference ranges. Note updated reference ranges. Performed By: #### ASIA Freitas, PHOS #### [facility] [address] [place], [place], Sodium [Moles/Vol] 136 mmol/L Normal 136-145 [facility] Comment on above: Result Comment: Note updated reference ranges. Performed By: #### ASIA Freitas, MIGUEL #### [facility] [address] [place] [address], Urea nitrogen [Mass/Vol] 36 mg/dL High 7-25 [facility] Comment on above: Result Comment: Note updated reference ranges. Performed By: #### ASIA Freitas PHOS #### [facility] [address] [place] [address], BLOOD GAS, ARTERIALon 2022 CR GEOVANNI -1.0 mmol/L Normal -2.0-3.0 [facility] Comment on above: Performed By: #### C BC #### S PATHOLOGY LABORATORY [address] [place] [address], CR PCO2 38.6 mm Hg Normal 35.0-45.0 [facility] Comment on above: Performed By: #### C BC #### S PATHOLOGY LABORATORY [address] [place] [address], CR PHA 7.395 Normal 7.350-7.450 [facility] Comment on above: Performed By: #### C BC #### [facility] [address] [place] [address], CR PO2 81 mm Hg Normal 80-100 [facility] Comment on above: Performed By: #### C BC #### [facility] [address] [place] [address], FIO2 (CATEGORY) 2 LPM Normal [facility] Comment on above: Performed By: #### C BC #### S PATHOLOGY LABORATORY [address] [place] [address], HCO3 (Bld) [Moles/Vol] 23 mmol/L Normal 21-28 [facility] Comment on above: Performed By: #### C BC #### [facility] [address] [place] [address], MODE Nasal Canula Normal [facility] Comment on above: Performed By: #### C BC #### [facility] [address] [place], [place], Oxygen saturation in Blood 96.1 % Normal 95.0-99.0 [facility] Comment on above: Performed By: #### C BC #### [facility] PATH[facility]ORATORY [address] [place], [place], BLOOD GAS, VENOUSon 02-18-20 CR ABEV -0.3 mmol/L Normal -2.0-3.0 [facility] Comment on above: Performed By: #### C BC #### [facility] PATHOLOGY LABORATORY [address] [place], [place], CR HCO3V 25 mmol/L Normal 21-28 [facility] Comment on above: Performed By: #### C BC #### [facility] PATH[facility] LABORATORY [address] [place] [address], CR PHV 7.367 Normal 7.320-7.430 [facility] Comment on above: Performed By: #### C BC #### [facility] PATH[facility] LABORATORY [address] [place] [address], CR PVCO2 43.8 mm Hg Normal 41.0-51.0 [facility] Comment on above: Performed By: #### C BC #### [facility] PATH[facility] LABORATORY [address] [place] [address], CR PVO2 36 mm Hg Low 38-44 [facility] Comment on above: Performed By: #### C BC #### S PATHOLOGY LABORATORY [address] [place] [address], Oxygen saturation in Blood 67.1 % Low 70.0-80.0 [facility] Comment on above: Performed By: #### C BC #### S PATHOLOGY LABORATORY [address] [place] [address], Basic metabolic 2000 panelon 02-17-2023 Anion gap [Moles/Vol] 11 mmol/L 10 - 20 [facility] [Mass/Vol] 8.3 mg/dL Low 8.6 - 10. 3 mg/dL [facility] Chloride [Moles/Vol] 105 mmol/L 98 - 107 mmol/L [facility] CO2 [Moles/Vol] 24 mmol/L 21 - 31 mmol/L [facility] Creatinine [Mass/Vol] 1.00 mg/dL 0.70 - 1.30 mg/dL [facility] GFR/1.73 sq M.predicted CKD-EPI (S/P/Bld) [Vol rate/Area] 79 - PINF [facility] Glucose [Mass/Vol] 189 mg/dL High 74 - 109 mg/dL [facility] Interpretation and review of laboratory results Abnormal [facility] Potassium [Moles/Vol] 4.0 mmol/L 3.5 - 5.0 mmol/L [facility] Sodium [Moles/Vol] 136 mmol/L 136 - 145 mmol/L [facility] Urea nitrogen [Mass/Vol] 36 mg/dL High 7 - 25 mg/dL [facility] CBC panel Auto (Bld)on 02-17 Erythrocyte distribution width (RBC) [Ratio] 14.9 % High 11.5 - 14.5 % [facility] Hematocrit (Bld) [Volume fraction] 29.5 % Low 41.0 - 53.0 % [facility] Hemoglobin (Bld) [Mass/Vol] 10.1 g/dL Low 13.9 - 16.3 g/dL [facility] Interpretation and review of laboratory results Abnormal [facility] MCH (RBC) [Entitic mass] 30.3 pg 26.0 - 34.0 pg [facility] MCHC (RBC) [Mass/Vol] 34.2 g/dL 32.0 - 35.9 g/dL [facility] MCV (RBC) [Entitic vol] 89 fL 80 - 100 fL [facility] Platelet mean volume (Bld) [Entitic vol] 8.6 fL 7.5 - 11.[address] [facility] Platelets (Bld) [#/Vol] 145 10*3/uL Low 150 - 400 K/uL [facility] RBC (Bld) [#/Vol] 3.33 10*6/uL Low [facility] WBC (Bld) [#/Vol] 9.9 10*3/uL 4.5 - 11.5 K/uL [facility] COMPLETE BLOOD COUNTon 02-17 Erythrocyte distribution width (RBC) [Ratio] 14.9 % High 11.5-14.5 [facility] Comment on above: Performed By: #### C BC ####[facility] [id number] [place], Hematocrit (Bld) [Volume fraction] 29.5 % Low 41.0-53.0 [facility] Comment on above: Performed By: #### C BC ####[facility] PATHOLOGY [id number] [place], Hemoglobin (Bld) [Mass/Vol] 10.1 g/dL Low 13.9-16.3 [facility] Comment on above: Performed By: #### C BC ####[facility] PATHOLOGY [id number] [place], MCH (RBC) [Entitic mass] 30.3 pg Normal 26.0-34.0 [facility] Comment on above: Performed By: #### C BC ####[facility] PATHOLOGY [id number] [place], MCHC (RBC) [Mass/Vol] 34.2 g/dL Normal 32.0-35.9 [facility] Comment on above: Performed By: #### C BC ####[facility] PATHOLOGY [id number] [place], MCV (RBC) [Entitic vol] 89 fL Normal 80-100 [facility] Comment on above: Performed By: #### C BC ####[facility] PATHOLOGY [id number] [place], Platelet mean volume (Bld) [Entitic vol] 8.6 fL Normal 7.5-11.2 [facility] Comment on above: Performed By: #### C BC ####[facility] PATHOLOGY [id number] [place], Platelets (Bld) [#/Vol] 145 10*3/uL Low 150-400 [facility] Comment on above: Performed By: #### C BC ####[facility] PATHOLOGY [id number] [place], RBC (Bld) [#/Vol] 3.33 10*6/uL Low 4.50-5.90 [facility] Comment on above: Performed By: #### C BC ####[facility] [id number] [place], WBC (Bld) [#/Vol] 9.9 10*3/uL Normal 4.5-11.5 [facility] Comment on above: Performed By: #### C BC ####[facility] [id number] [place], [place], Care Plan Noteon 02-17-2023 Primary Special Educator Authentication Interface Message Text Problem: Routine Care: [...] will be met Outcome: Progressing Normal [facility] Consultson 02-17-2023 Primary Special Educator Authentication Interface Message Text PHYSICAL/OCCUPATIONAL THERAPY Attempted to see patient for PT/OT evals this date. Patient scheduled for OR this date for fixation of left femur fracture. Will follow up post-operative as able and medically appropriate. Sylvia Alcantara PT Normal [facility] GLUCOSE, FINGERSTICK-IN OFFI CEon 02-17-2023 Glucose [Mass/Vol] 140 mg/dL High 80-116 [facility] Comment on above: Performed By: #### 8 [id number] #### NURSING GLUCOSE PROGRAM [address] [place], [address] Glucose [Mass/Vol] 140 mg/dL High 80 - 116 mg/dL [facility] Interpretation and review of laboratory results Abnormal [facility] MAGNESIUMon 02-17-2023 Magnesium [Mass/Vol] 1.7 mg/dL Normal 1.6-2.8 [facility] Comment on above: Performed By: #### C BC #### [facility] [address] [place], [place], Magnesium [Mass/Vol] 1.7 mg/dL 1.6 - 2.8 mg/dL [facility] MRSA SCREENOrdered By: Shari Ceja on 02-17-2023 Interpretation and review of laboratory results Normal [facility] MRSA isol Org specific cx Ql (Nose) No methicillin resistant Staphylococcus aureus isolated. No methicillin resistant Staphylococcus aureus isolated. [facility] No Panel Informationon 02-17 Interpretation and review of laboratory results Normal [facility] PHOSPHORUSon 02-17-2023 Phosphate [Mass/Vol] 2.6 mg/dL Normal 2.3-4.2 [facility] Comment on above: Performed By: #### C BC #### S PATHOLOGY LABORATORY [address], [place], Phosphate [Mass/Vol] 2.6 mg/dL 2.3 - 4.2 mg/dL [facility] Progress Noteson 02-17-2023 Primary Special Educator Authentication Interface Message Text -------- GENERAL INFORMATION [...] R rib 9-10 fracture was seen at [facility].The patient had 5 packs of RBCs, 3 packs of FFP, 1 platelet, TXA and Vit K from when he arrived to [facility] and in transit. 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 Normal [facility] XR CHEST AP OR PA 1 [...] Blood group O Rh(D) positive Normal [facility] Comment on above: Performed By: #### 8 [id number] #### [facility] GLUCOSE PROGRAM [address] [place] [address], [address] BASIC METABOLIC PANELon 01-25 Anion gap [Moles/Vol] 14 mmol/L Normal 10-20 [facility] Comment on above: Performed By: #### C BC #### [facility] PATHOLOGY LABORATORY [address] [place] [address], Calcium [Mass/Vol] 8.3 mg/dL Low 8.6-10.3 [facility] Comment on above: Result Comment: Note updated reference ranges. Performed By: #### C BC #### [facility] PATHOLOGY LABORATORY [address] [place] [address], Chloride [Moles/Vol] 109 mmol/L High 98-107 [facility] Comment on above: Result Comment: Note updated reference ranges. Performed By: #### C BC #### [facility] PATHOLOGY LABORATORY [address] [place] [address], CO2 [Moles/Vol] 20 mmol/L Low 21-31 [facility] Comment on above: Result Comment: Note updated reference ranges. Performed By: #### C BC #### [facility] PATHOLOGY LABORATORY [address] [place] [address], Creatinine [Mass/Vol] 1.38 mg/dL High 0.70-1.30 [facility] Comment on above: Result Comment: Note updated reference ranges. Performed By: #### C BC #### [facility] PATHOLOGY LABORATORY [address] [place] [address], ESTIMATED GFR (CKD-EPI) 54 mL/min/1.73sqm Low >=60 [...] Inclusion of Race in Diagnosing Kidney Disease. [place] Journal of Kidney Diseases 202;79(2):268-88.e1. 2. N Engl J Med 1 Vol. 385 Issue 19 Pages 2180-2854 Performed By: #### C BC #### [facility] [address] [place] [address], Glucose [Mass/Vol] 171 mg/dL High 74-109 [facility] Comment on above: Performed By: #### C BC #### S PATHOLOGY LABORATORY [address] [place] [address], Potassium [Moles/Vol] 4.5 mmol/L Normal 3.5-5.0 [facility] Comment on above: Result Comment: Note updated reference ranges. Note updated reference ranges. Performed By: #### C BC #### S PATHOLOGY LABORATORY [address] [place] [address], Sodium [Moles/Vol] 138 mmol/L Normal 136-145 [facility] Comment on above: Result Comment: Note updated reference ranges. Performed By: #### C BC #### S PATHOLOGY LABORATORY [address] [place] [address], Urea nitrogen [Mass/Vol] 38 mg/dL High 7-25 [facility] Comment on above: Result Comment: Note updated reference ranges. Performed By: #### C BC #### S PATHOLOGY LABORATORY [address] [place] [address], Anion gap [Moles/Vol] 13 mmol/L Normal 10-20 [facility] Comment on above: Performed By: #### C BC #### [facility] [address] [place] [address], Calcium [Mass/Vol] 9.8 mg/dL Normal 8.6-10.3 [facility] Comment on above: Result Comment: Note updated reference ranges. Performed By: #### C BC #### S PATHOLOGY LABORATORY [address], [place], Chloride [Moles/Vol] 111 mmol/L High 98-107 [facility] Comment on above: Result Comment: Note updated reference ranges. Performed By: #### C BC #### S PATHOLOGY LABORATORY [address], [place], CO2 [Moles/Vol] 25 mmol/L Normal 21-31 [facility] Comment on above: Result Comment: Note updated reference ranges. Performed By: #### C BC #### [facility] PATHOLOGY LABORATORY [address], [place], Creatinine [Mass/Vol] 1.12 mg/dL Normal 0.70-1.30 [facility] Comment on above: Result Comment: Note updated reference ranges. Performed By: #### C BC #### S PATHOLOGY LABORATORY [address], [place], ESTIMATED GFR (CKD-EPI) 69 mL/min/1.73sqm Normal [...] Inclusion of Race in Diagnosing Kidney Disease. [place] Journal of Kidney Diseases 2021;79(2):268-88.e1. 2. N Engl J Med 1 Vol. 385 Issue 19 Pages 9209-7472 Performed By: #### C BC #### S PATHOLOGY LABORATORY [address], [place], Glucose [Mass/Vol] 130 mg/dL High 74-109 [facility] Comment on above: Performed By: #### C BC #### S PATHOLOGY LABORATORY [address] [place], [address] Potassium [Moles/Vol] 5.3 mmol/L High 3.5-5.0 [facility] Comment on above: Result Comment: Note updated reference ranges. Note updated reference ranges. Performed By: #### C BC #### [facility] [address] [place], [address] Sodium [Moles/Vol] 144 mmol/L Normal 136-145 [facility] Comment on above: Result Comment: Note updated reference ranges. Performed By: #### C BC #### [facility] [address] [place], [address] Urea nitrogen [Mass/Vol] 27 mg/dL High 7-25 [facility] Comment on above: Result Comment: Note updated reference ranges. Performed By: #### C BC #### S PATHOLOGY LABORATORY [address] [place], [address] Anion gap [Moles/Vol] 12 mmol/L Normal 10-20 [facility] Comment on above: Performed By: #### 8 2948 #### NURSING GLUCOSE PROGRAM [address] [place], [address] Calcium [Mass/Vol] 10.2 mg/dL Normal 8.6-10.3 [facility] Comment on above: Result Comment: Note updated reference ranges. Performed By: #### 8 2948 #### NURSING GLUCOSE PROGRAM [address] [place], [address] Chloride [Moles/Vol] 108 mmol/L High 98-107 [facility] Comment on above: Result Comment: Note updated reference ranges. Performed By: #### 8 2948 #### NURSING GLUCOSE PROGRAM [address] [place], [address] CO2 [Moles/Vol] 28 mmol/L Normal 21-31 [facility] Comment on above: Result Comment: Note updated reference ranges. Performed By: #### 8 2948 #### NURSING GLUCOSE PROGRAM [address] [place], [address] Creatinine [Mass/Vol] 1.02 mg/dL Normal 0.70-1.30 [facility] Comment on above: Result Comment: Note updated reference ranges. Performed By: #### 8 2948 #### NURSING GLUCOSE PROGRAM [address] [facility] [place], [address] ESTIMATED GFR (CKD-EPI) 77 mL/min/1.73sqm Normal >=60 [...] Inclusion of Race in Diagnosing Kidney Disease. [place] Journal of Kidney Diseases 2021;79(2):268-88.e1. 2. N Engl J Med 1 Vol. 385 Issue 19 Pages 7201-7534 Performed By: #### 8 2948 #### NURSING GLUCOSE PROGRAM [address] [place], [address] Glucose [Mass/Vol] 125 mg/dL High 74-109 [facility] Comment on above: Performed By: #### 8 2948 #### NURSING GLUCOSE PROGRAM [address] [place], [address] Potassium [Moles/Vol] 4.5 mmol/L Normal 3.5-5.0 [facility] Comment on above: Result Comment: Note updated reference ranges. Note updated reference ranges. Performed By: #### 8 2948 #### NURSING GLUCOSE PROGRAM [address] [place], [address] Sodium [Moles/Vol] 143 mmol/L Normal 136-145 [facility] Comment on above: Result Comment: Note updated reference ranges. Performed By: #### 8 2948 #### NURSING GLUCOSE PROGRAM [address] [facility] [place], [address] Urea nitrogen [Mass/Vol] 25 mg/dL Normal 7-25 [facility] Comment on above: Result Comment: Note updated reference ranges. Performed By: #### 8 2948 #### NURSING GLUCOSE PROGRAM [address] [facility] [place], [address] BLOOD CULTUREon 02-16-2023 Bacteria identified Cx Nom (Bld) C BLOOD: No Growth Normal [facility] Comment on above: Performed By: #### M JUDITH Harper8, MIGUEL #### [facility] [address] [place], [address] BLOOD GAS, ARTERIALon 2022 Base excess Calc [...] [Moles/Vol] 14 mmol/L 10 - 20 [facility] Calcium [Mass/Vol] 8.3 mg/dL Low 8.6 [...] 171 mg/dL High 74 - 109 mg/dL [facility] Interpretation and review of laboratory results Abnormal [facility] Potassium [Moles/Vol] 4.5 mmol/L 3.5 - 5.0 mmol/L [facility] Sodium [Moles/Vol] 138 mmol/L 136 - 145 mmol/L [facility] Urea nitrogen [Mass/Vol] 38 mg/dL High 7 - 25 mg/dL [facility] Anion gap [Moles/Vol] 13 mmol/L 10 - 20 [facility] Calcium [Mass/Vol] 9.8 mg/dL 8.6 - 10. 3 mg/dL [facility] Chloride [Moles/Vol] 111 mmol/L High 98 - 107 mmol/L [facility] CO2 [Moles/Vol] 25 mmol/L 21 - 31 mmol/L [facility] Creatinine [Mass/Vol] 1.12 mg/dL 0.70 - 1.30 mg/dL [facility] GFR/1.73 sq M.predicted CKD-EPI (S/P/Bld) [Vol rate/Area] 69 - PINF [facility] Glucose [Mass/Vol] 130 mg/dL High 74 - 109 mg/dL [facility] Potassium [Moles/Vol] 5.3 mmol/L High 3.5 - 5.0 mmol/L [facility] Sodium [Moles/Vol] 144 mmol/L 136 - 145 mmol/L [facility] Urea nitrogen [Mass/Vol] 27 mg/dL High 7 - 25 mg/dL [facility] Blood Bank Slipon 02-16-2023 Blood Bank Slip [id number] [phone] [id number]# 1.00TIFF Normal [facility] CALCIUM, IONIZEDon 3 CR ICA 1.34 mmol/L High 1.15-1.33 [facility] Comment on above: Result Comment: This test was developed, and its performance characteristics determined by the Department of Pathology of [facility]. It has not been cleared or approved by the FDA. This test is used for clinical purposes only. Performed By: #### C R ICA ####[facility] PATH[facility]Y [id number] [place], [place], Calcium.ionized (Bld) [Moles/Vol] 1.34 mmol/L High 1.15 - 1.33 mmol/L [facility] Interpretation and review of laboratory results Abnormal [facility] CR ICA 1.24 mmol/L Normal 1.15-1.33 [facility] Comment on above: Result Comment: This test was developed, and its performance characteristics determined by the Department of Pathology of [facility]. It has not been cleared or approved by the FDA. This test is used for clinical purposes only. Performed By: #### C BC #### S PATHOLOGY LABORATORY [address], [place], CALCIUM, IONIZEDOrdered By: Vivian Pena on 02-16-2023 Calcium.ionized (Bld) [Moles/Vol] 1.24 mmol/L 1.15 - 1.33 mmol/L [facility] Interpretation and review of laboratory results Normal [facility] CBC WITH DIFFERENTIALon 01-25 Basophils (Bld) [#/Vol] 0.01 10*3/uL Normal 0.00-0.20 [facility] Comment on above: Performed By: #### ASIA Freitas PHOS #### [facility] PATHOLOGY LABORATORY [address], [place], Basophils/100 WBC (Bld) 0.1 % Normal <=1.9 [facility] Comment on above: Performed By: #### ASIA Freitas PHOS #### [facility] [address], [place], Eosinophils (Bld) [#/Vol] 0.00 10*3/uL Normal 0.00-0.70 [facility] Comment on above: Performed By: #### ASIA Freitas PHOS #### S PATHOLOGY LABORATORY [address], [place], Eosinophils/100 WBC (Bld) 0.0 % Low 0.1-4.0 [facility] Comment on above: Performed By: #### ASIA Freitas PHOS #### [facility] [address] [place] [address], Erythrocyte distribution width (RBC) [Ratio] 14.9 % High 11.5-14.5 [facility] Comment on above: Performed By: #### ASIA Freitas, PHOS #### [facility] [address] [place] [address], Hematocrit (Bld) [Volume fraction] 38.9 % Low 41.0-53.0 [facility] Comment on above: Performed By: #### ASIA Freitas, PHOS #### [facility] [address] [place] [address], Hemoglobin (Bld) [Mass/Vol] 12.9 g/dL Low 13.9-16.3 [facility] Comment on above: Performed By: #### ASAI Freitas, PHOS #### S PATHOLOGY LABORATORY [address] [place] [address], Lymphocytes (Bld) [#/Vol] 0.42 10*3/uL Low 1.00-4.80 [facility] Comment on above: Performed By: #### ASIA Freitas, PHOS #### S PATHOLOGY LABORATORY [address] [place] [address], Lymphocytes/100 WBC (Bld) 3.3 % Low 24.0-44.0 [facility] Comment on above: Performed By: #### ASIA Freitas, PHOS #### S PATHOLOGY LABORATORY [address] [place] [address], MCH (RBC) [Entitic mass] 29.6 pg Normal 26.0-34.0 [facility] Comment on above: Performed By: #### ASIA Freitas, PHOS #### S PATHOLOGY LABORATORY [address], [place], MCHC (RBC) [Mass/Vol] 33.2 g/dL Normal 32.0-35.9 [facility] Comment on above: Performed By: #### ASIA Freitas, PHOS #### [facility] [address] [place] [address], MCV (RBC) [Entitic vol] 89 fL Normal 80-100 [facility] Comment on above: Performed By: #### ASIA Freitas, PHOS #### [facility] [address] [place] [address], MONOCYTE DISTRIBUTION WIDTH 20 Normal <=20 [facility] Comment on above: Performed By: #### ASIA Freitas, PHOS #### [facility] [address] [place] [address], Monocytes (Bld) [#/Vol] 1.18 10*3/uL High 0.20-1.00 [facility] Comment on above: Performed By: #### ASIA Freitas, PHOS #### [facility] [address] [place] [address], Monocytes/100 WBC (Bld) 9.1 % Normal 2.0-11.0 [facility] Comment on above: Performed By: #### ASIA Freitas, PHOS #### S PATHOLOGY LABORATORY [address] [place] [address], Neutrophils (Bld) [#/Vol] 11.30 10*3/uL High 1.50-8.00 [facility] Comment on above: Performed By: #### ASIA Freitas, PHOS #### S PATHOLOGY LABORATORY [address] [place] [address], Neutrophils/100 WBC (Bld) 87.5 % High 31.0-76.0 [facility] Comment on above: Performed By: #### ASIA Freitas, PHOS #### [facility] [address] [place] [address], Platelet mean volume (Bld) [Entitic vol] 7.8 fL Normal 7.5-11.2 [facility] Comment on above: Performed By: #### ASIA Freitas, PHOS #### [facility] [address] [place] [address], Platelets (Bld) [#/Vol] 149 10*3/uL Low 150-400 [facility] Comment on above: Performed By: #### ASIA Freitas, PHOS #### [facility] [address], [place], RBC (Bld) [#/Vol] 4.36 10*6/uL Low 4.50-5.90 [facility] Comment on above: Performed By: #### ASIA Freitas, PHOS #### S PATHOLOGY LABORATORY [address], [place], WBC (Bld) [#/Vol] 12.9 10*3/uL High 4.5-11.5 [facility] Comment on above: Performed By: #### ASIA Freitas, PHOS #### S PATHOLOGY LABORATORY [address], [place], CBC panel Auto (Bld)Ordered By: Wesley Maloney on 02-16-2023 Erythrocyte distribution width (RBC) [Ratio] 14.8 % High 11.5 - 14.5 % [facility] Hematocrit (Bld) [Volume fraction] 30.0 % Low 41.0 - 53.0 % [facility] Hemoglobin (Bld) [Mass/Vol] 10.2 g/dL Low 13.9 - 16.3 g/dL [facility] Interpretation and review of laboratory results [...] 9.2 10*3/uL 4.5 - 11.5 K/uL [facility] CBC panel Auto (Bld)on 02-16 Erythrocyte [...] (RBC) [Ratio] 14.8 % High 11.5-14.5 [facility] Comment on above: Performed By: #### C BC ####[facility] PATHOLOGY [id number] [place], [place], Hematocrit (Bld) [Volume fraction] 30.0 % Low 41.0-53.0 [facility] Comment on above: Performed By: #### C BC ####[facility] PATHOLOGY [id number] [place] [address], Hemoglobin (Bld) [Mass/Vol] 10.2 g/dL Low 13.9-16.3 [facility] Comment on above: Performed By: #### C BC ####[facility] PATHOLOGY [id number] [place] [address], MCH (RBC) [Entitic mass] 30.5 pg Normal 26.0-34.0 [facility] Comment on above: Performed By: #### C BC ####[facility] PATHOLOGY [id number] [place] [address], MCHC (RBC) [Mass/Vol] 34.1 g/dL Normal 32.0-35.9 [facility] Comment on above: Performed By: #### C BC ####[facility] PATHOLOGY [id number] [place], [place], MCV (RBC) [Entitic vol] 89 fL Normal 80-100 [facility] Comment on above: Performed By: #### C BC ####[facility] PATHOLOGY [id number] [place] [address], Platelet mean volume (Bld) [Entitic vol] 8.4 fL Normal 7.5-11.2 [facility] Comment on above: Performed By: #### C BC ####[facility] PATHOLOGY [id number] [place] [address], Platelets (Bld) [#/Vol] 134 10*3/uL Low 150-400 [facility] Comment on above: Performed By: #### C BC ####[facility] PATHOLOGY [id number] [place] [address], RBC (Bld) [#/Vol] 3.35 10*6/uL Low 4.50-5.90 [facility] Comment on above: Performed By: #### C BC ####[facility] PATHOLOGY [id number] [place], [place], WBC (Bld) [#/Vol] 9.2 10*3/uL Normal 4.5-11.5 [facility] Comment on above: Performed By: #### C BC ####[facility] PATHOLOGY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 Normal [facility] Cardiovascular Reporton Cardiovascular Report [id number]# 1.00CD:127 Normal [facility] Consent for Treatmenton Consent for Treatment [id number] .00CD:127 Normal [facility] Consultation Noteon 08-03-19 Consultation Note Patient: FREDRICK STROUD Age: 71 years Sex: Male : 1950 Associated Diagnoses: None Author: German ESCOBDEO, Christopher Bansal Basic Information Airway Assessment: Class II: Visualization of the soft palate, fauces, uvula. Airway Abnormalities: None. ASA Classification: ASA 2: A patient with mild systemic disease. Risks/Benefits of IV Sedation IV Sedation Plan: Patient agrees to IV sedation plan. Changes to History & Physical: None. History of Adverse/Allergic Reaction to Sedation: None. Normal [facility] Comment on above: Result Comment: Elec tronically Signed By: German ESCOBEDO, Christopher Bansal\.br\Date and Time Signed: 08/02/22 12:50 EDT Inpatient Clinical Summaryon 08-02-2022 Inpatient Clinical Summary [address] [address] Clinical Summary Person Information: Name: FREDRICK STROUD Age: 71 Years : 1950 Sex: Male PCP: KARINA MELGAR MD Marital Status: Phone: [phone] Race: White Ethnicity: Non- or Language: Serbian Visit Id: Visit Reason: I48.19 Speciality: Acuity: Enc Type: Ambulatory/Same Day Surgery Med Service: Cardiovascular Arrival: 08/02/2022 11:37:14 Discharge: Dispo Type: Address: [address] [place] [id number] Provider Notes: Diagnosis: Atrial fibrillation Problems Active [...] This Visit Final Med List: acetaminophen-hydroco done (Kiowa 325 mg-5 mg oral tablet) 1 Tablets [...] MD Follow up: With: Address: [facility]: [facility] [address] [place] [address] Business (1) Comments: Call for followup appointment Type Location Start Finish State Anticoagulation Follow Up 15 (FT) FT.CARDIO 08/16/2022 11:15 AM 08/16/2022 11:30 AM Confirmed Patient Education Information: CV - Cardioversion (CUSTOM) Normal [facility] Inpatient Patient Summaryon 08-02-2022 Inpatient Patient Summary [address] [address] Patient Discharge Instructions PERSON INFORMATION Name: FREDRICK [...] None Follow up: With: Address: When: [facility] [address] [place] [address] Business (1) Comments: Call for followup appointment [...] with No Changes Other Medications acetaminophen-hydroco done (Kiowa 325 mg-5 mg oral tablet) 1 Tablets [...] WITH YOU AT ALL TIMES. acetaminophen-hydroco done (Kiowa 325 mg-5 mg oral tablet) 1 Tablets [...] Pharmacy Information: Comment: PATIENT EDUCATION INFORMATION Instructions: [place], [place] CARDIOVERSION AFTER THE PROCEDURE: DIET: ? [...] the event (more content not included)... Normal [facility] - Chemistry and C hemistry - challengeon 08-02-2022 CO2 [Moles/Vol] 27 mmol/L Normal 21-31 -[facility] 250 DO Work Phone: Laboratory - Coagulationon 0 08-02-2022 INR Coag (Bld) [Relative time] 3.5 [facility]INR} [facility] Work Phone: Comment on above: INR results are spec ifically intended to assess patients stabilized on long-term Anticoagulation therapy suggested INR?s ?Less Intensive Anticoagulation? 2.0 ? 3.0Conventional Range 3.0 ? 4.5 Lyteson 08-02-2022 Anion gap [Moles/Vol] 12 mmol/L Normal 6-16 [facility] Comment on above: Order Comment: STAT on admission. Performed By: #### 2 [id number] #### [facility] [address] [place] [address] Chloride [Moles/Vol] 104 mmol/L Normal 101-111 [facility] Comment on above: Order Comment: STAT on admission. Performed By: #### 2 [id number] #### [facility] [address] [place] [address] CO2 [Moles/Vol] 27 mmol/L Normal 21-31 [facility] Comment on above: Order Comment: STAT on admission. Performed By: #### 2 [id number] #### [facility] [address] [place] [address] Potassium [Moles/Vol] 4.5 mmol/L Normal 3.5-5.3 [facility] Comment on above: Order Comment: STAT on admission. Performed By: #### 2 [id number] #### [facility] [address] [place] [address] Sodium [Moles/Vol] 138 mmol/L Normal 135-145 [facility] Comment on above: Order Comment: STAT on admission. Performed By: #### 2 [id number] #### [facility] [address] [place] [address] No Panel Informationon 08-02 12 {mEq/L} Normal 6-16 formerly [facility] 250 DO Work Phone: [phone] 104 mmol/L Normal 101-111 formerly [facility] 250 DO Work Phone: [phone] 4.5 mmol/L Normal 3.5-5.3 [facility] y 250 DO Work Phone: [phone] 138 mmol/L Normal 135-145 [facility] DO Work Phone: [phone] 41.2 {second(s)} above high threshold 9.4-12.5 [facility] y 250 DO Work Phone: Comment on [...] the same coagulation reagent and instrumentation as [facility]. Currently there are no coagulation studies available worldwide for children to 14 days, and no normal ranges. PTon 08-02-2022 INR Coag (PPP) [Relative time] 3.5 {INR} Invalid Interpretation Code [facility] Comment on above: Order Comment: On ad mission if patient is on Coumadin therapy. Result Comment: INR results are specifically intended to assess patients stabilized on long-term Anticoagulation therapy suggested INR?s ?Less Intensive Anticoagulation? 2.0 ? 3.0 Conventional Range 3.0 ? 4.5 Performed By: #### 2 [id number] #### [facility] [address] [place] [address] PT Coag (PPP) [Time] 41.2 second(s) High 9.4-12.5 [facility] Comment on above: Order Comment: On [...] the same coagulation reagent and instrumentation as [facility]. Currently there are no coagulation studies available worldwide for children to 14 days, and no normal ranges. Performed By: #### 2 [id number] #### [facility] [address] [place] [address] Patient Education - Texton 0 08-02-2022 Patient Education - Text [place], [place] CARDIOVERSION AFTER THE PROCEDURE: DIET: ? [...] event you are unable to reach your boat tester, please call [facility] at [phone] and the recovery operator helper will assist you in contacting your physician. [...] or toes turn cold or blue. Normal [facility] Progress Note-Physicianon Progress Note-Physician Patient: FREDRICK STROUD Age: 71 years Sex: Male : 1950 Associated Diagnoses: None Author: German ESCOBEDO, Christopher Bansal Impression and Plan DCC WITH PROPAFOL 70 MG AND 200 J SYNC ONCE TO NSR SAT>95 % NO NEURO CHANGES PLAN HOME ON SAME RX Normal [facility] Comment on above: Result Comment: Elec tronically Signed By: German ESCOBEDO, Christopher Bansal\.br\Date and Time Signed: 08/02/22 13:03 EDT POCT PT/INRon 07-26-2022 POCT INR 2.7 High .7-1.2 [facility] Comment on above: Performed By: #### 2 [id number] #### [facility] [address] [place] [address] POCT PT 29.2 second(s) High 8.0-15.0 [facility] Comment on above: Performed By: #### 2 [id number] #### [facility] [address] [place] [address] POCT PT/INRon 07-19-2022 POCT INR 3.2 High .7-1.2 [facility] Comment on above: Performed By: #### 2 [id number] ####[facility] [address] [place] [address] POCT PT 34.5 second(s) High 8.0-15.0 [facility] Comment on above: Performed By: #### 2 [id number] ####[facility] [address] [place] [address] Physician Orderon 07-16-2022 Physician Order [id number] .00CD:127 Normal [facility] POCT PT/INRon 07-12-2022 POCT INR 4.3 High .7-1.2 [facility] Comment on above: Performed By: #### 1 [id number], [id number], [id number], [id number] #### [facility] [address] [place] [address] POCT PT 45.1 second(s) High 8.0-15.0 [facility] Comment on above: Performed By: #### 1 [id number], [id number], [id number], [id number] #### [facility] [address] [place] [address] Falls Screening (Age 18+)on 07-05-2022 Fall risk assessment a) No falls within the last year formerly [facility] [place] 600 DO Work Phone: Tobacco use status [facility] b) No [facility] 600 DO Work Phone: Office Visit [...] HOURS Cardioversion; Status:Active - Retrospective Authorization; Requested for:[id number]; IO EKG Electrocardiogram- 12 Lead; Status:Complete; Done: [...] 2 MG Oral TabletTake as directed by [facility] coumadin clinic Zinc 50 MG [place] 1 [...] negative for complaint. Vitals Vital Signs Recorded: 13Grq3807 09:08AM Heart Rate72, Apical Rksowwnf420, LUE, Sitting Ghvelbgfe97, LUE, Sitting Height5 ft 6 in Yxtlle460 lb BMI Zfsrgjsydh94.54 kg/m2 BSA Calculated2.18 Tobacco Useb) No F (more content not included)... Normal [employer] POCT PT/INRon 06-26-2022 POCT INR See Comment Invalid Interpretation Code .7-1.2 [facility] Comment on above: Result Comment: Test ing error, please disregard previously charted results Performed By: #### 1 [id number], [id number], [id number], [id number] #### [facility] [address] [place] [address] POCT PT See Comment Invalid Interpretation Code 8.0-15.0 [facility] Comment on above: Result Comment: Test ing error, please disregard previously charted results Performed By: #### 1 [id number], [id number], [id number], [id number] #### [facility] [address] [place] [address] ECG 12 lead ECGon 06-11-2022 ECG 12 lead ECG [facility] Main [address] [address] Electrocardiograph Report Signed Patient: Fredrick Stroud MR#: [id number] 427 : 1950 Acct:[id number] Age/Sex: 71 / M ADM Date: 06/11/22 Loc: EL Room: Type: [facility] SD Attending Dr: Christopher Porter [...] Wisam Torre MD 0 06/11/22 1650 Normal [facility] ECG post procedureon 023 ECG post procedure [facility] Main [address] [address] Electrocardiograph Report Signed Patient: Fredrick Stroud MR#: [id number] 427 : 1950 Acct:[id number] Age/Sex: 71 / M ADM Date: 06/11/22 Loc: EL Room: Type: [facility] SDC Attending Dr: Christopher Porter [...] Wisam Torre MD 0 06/11/22 1650 Normal [facility] Electrolyteson 06-11-2022 Anion gap [Moles/Vol] 12.3 mmol/L Normal 6.0-15.0 [facility] Comment on above: Result Comment: PERF ORMED BY: [place] [address] PATHOLOGIST DRY CHAIN OFFBEARER EYAD HOWARD M.D. Performed By: #### C BC, CMP, HS TROP, BNP #### [facility] [address] [place] [address] Chloride [Moles/Vol] 103 mmol/L Normal 98-107 [facility] Comment on above: Performed By: #### C BC, CMP, HS TROP, BNP #### [facility] [address] [place] [address] [place] CO2 [Moles/Vol] 28.2 mmol/L Normal 21.0-31.0 [facility] Comment on above: Performed By: #### C BC, CMP, HS TROP, BNP #### [facility] [address] [place] [address] [place] Potassium [Moles/Vol] 4.5 mmol/L Normal 3.5-5.1 [facility] Comment on above: Performed By: #### C BC, CMP, HS TROP, BNP #### [facility] [address] [place] [address] [facility] Sodium [Moles/Vol] 139 mmol/L Normal 136-145 [facility] Comment on above: Performed By: #### C BC, CMP, HS TROP, BNP #### [facility] [address] [place] [id number] [facility] No Panel Informationon 06-11 12.3\S\12.3 Normal 6.0-15.0 formerly [facility] 250 DO Work Phone: [phone] Comment on above: PERFORMED BY:[facility] [place], [place] [id number] MEDICAL DIRECTOREYAD HOWARD M.D. 28.2\S\28.2 Normal 21.0-31.0 formerly [facility] 250 DO Work Phone: [phone]\S\[phone] Normal 98-107 formerly [facility] 250 DO Work Phone: 4.5\S\4.5 Normal 3.5-5.1 formerly [facility] 250 DO Work Phone: [phone]\S\[phone] Normal 136-145 formerly [facility] 250 DO Work Phone: [phone] POCT PT/INRon 06-07-2022 POCT INR 2.7 High .7-1.2 [facility] Comment on above: Performed By: #### 2 [id number] #### [facility] [address] [place] [address] POCT PT 28.8 second(s) High 8.0-15.0 [facility] Comment on above: Performed By: #### 2 [id number] #### [facility] [address] [place] [address] POCT PT/INRon 05-28-2022 POCT INR 2.8 High .7-1.2 [facility] Comment on above: Performed By: #### 1 [id number], [id number], [id number], [id number] #### [facility] [address] [place] [address] POCT PT 30.6 second(s) High 8.0-15.0 [facility] Comment on above: Performed By: #### 1 [id number], [id number], [id number], [id number] #### [facility] [address] [place] [address] POCT INR Error Invalid Interpretation Code .7-1.2 [facility] Comment on above: Performed By: #### 2 [id number] #### [facility] [address] [place] [address] POCT PT Strip Error Invalid Interpretation Code 8.0-15.0 [facility] Comment on above: Performed By: #### 2 [id number] #### [facility] [address] [place] [address] POCT PT/INRon 05-21-2022 POCT INR 3.1 High .7-1.2 [facility] Comment on above: Performed By: #### 1 [id number], [id number], [id number], [id number] #### [facility] [address] [place] [address] POCT PT 33.1 second(s) High 8.0-15.0 [facility] Comment on above: Performed By: #### 1 [id number], [id number], [id number], [id number] #### [facility] [address] [place] [address] POCT PT/INRon 05-14-2022 POCT INR 3.2 High .7-1.2 [facility] Comment on above: Performed By: #### 2 [id number] ####[facility] [address] [place] [address] POCT PT 34.5 second(s) High 8.0-15.0 [facility] Comment on above: Performed By: #### 2 [id number] ####[facility] [address] [place] [address] POCT INR Error Invalid Interpretation Code .7-1.2 [facility] Comment on above: Performed By: #### 2 [id number] #### [facility] [address] [place] [address] POCT PT Strip Error Invalid Interpretation Code 8.0-15.0 [facility] Comment on above: Performed By: #### 2 [id number] #### [facility] [address] [place] [address] Falls Screening (Age 18+)on 05-02-2022 Fall risk assessment a) No falls within the last year -[facility] 600 DO Work Phone: Progress Note-Physicianon Progress [...] Inhalation, As Directed, 1 EA, Refill(s) 0 Kiowa 325 mg-5 mg oral tablet: 1 tab(s), [...] spacer adult 1 EA, Inhalation, As Directed Kiowa 325 mg-5 mg oral tablet 1 tab(s), PRN, Oral, q6hr Ventolin HFA 90 mcg/inh inhalation aerosol with adapter 2 puff(s), PRN, Inhalation, q6hr Coumadin , No qualifying data available Problem list: All Problems HTN (hypertension) / SNOMED CT 0621277201 / Confirmed Class 3 severe obesity with body mass index (BMI) of 40.0 to 44.9 in adult / SNOMED CT 6205769393 / Confirmed Resolved: Cancer of prostate / SNOMED CT 9344848506, Active Problems (2) Class 3 severe obesity [...] mod = 1-2, high = 3-4): Normal [facility] Comment on above: Result Comment: Elec [...] therapy [facility]. He says he is [...] Recorded: 29Apr2022 11:48AM Heart Rate60, R Radial Ezzxfgfx716 Qtsiofwtf26 Height5 ft 6 in Bkwhmf527 lb 6 oz BMI Pfhzbogrdf76.09 kg/m2 BSA Calculated2.19 Tobacco Useb) No Falls Screening (Age 18+)a) No falls within the last year Physical Exam Constitutional: alert and in no acute distress. Eyes: no erythema, swelling or discharge from the eye . Neck: neck i (more content not included)... Normal [employer] Tobacco Screening.on 023 Fall risk assessment a) No falls within the last year [facility] 600 DO Work Phone: Tobacco use status CP b) No [facility] 600 DO Work Phone: POCT PT/INRon 04-19-2022 POCT INR 1.7 High .7-1.2 [facility] Comment on above: Performed By: #### 1 [id number], [id number], [id number], [id number] #### [facility] [address] [place] [address] POCT PT 19.1 second(s) High 8.0-15.0 [facility] Comment on above: Performed By: #### 1 [id number], [id number], [id number], [id number] #### [facility] [address] [place] [address] Coding Summary.on 04-08-2022 Coding Summary. CD:[id number]:[id number] G h0bWw+PGhlYWQ+KE7RGMD pX94kaDUzhR7YW2yPUF4N INNYDHTDTP7PHO5cpLD7E BeiR0CwkjEs GsjxjEWrYA57XZi5EDG2h HcpENmjtY2foDHdI9v4Zy KpFH57uR83EHqfABZoYbT 3LjZpbjsgbWFy P5kxWkTcaARqIta+PHRhY mxlIHdpZHRoPScxMDAlJy HmbLriNI5jWe3fZITfASM vbGxhcHNlOiBj i5yhOBNcGRdbGN8miHkkJ 4KlqZH3ROXjq1k2Vd49gR I+MBMkJHI6rStjKFjll53 0EoFzx8llOKK9 wQGsTSgeIPQ3E11pf1E1F DYfBVUsJGN0sWN4mF9zeD cxqkgfK4HbdOIxRtS9UVE 3nUOhfL5woFvz ngftvA7oMlj+I36ONX6HH MJDVC0LGlt3K4RfIsmapC I+JD91TOMjPU22aKLjuPC us0emsQs9TgEr OHJjOGR9cMctLEoii2TeS DEzH35jaUMjh7V6FTEemU hweUOnVyRurWP6lS3oHPn lnkpyd7xbdtec Shnde2clvu10hY23P51uV VepZCJwFEE8XGBgXHDmyH xhab8opA3hIi9+UOcay2n fc7nedHj8IxJv FTJrosSqoFqaEZE9t5GqL q23S5ChaVtnc3BrHxr9ce 15hDGjj5A6yKY0QCplTHJ xeR8lZFvqHgK7 LVLfAmKjpW77aWMuUKuuU a0nsUlxxLlvTD1gZSWpap bsMIUqlG6bXNOprFTrrVt yOF0wXLXwtxrp c055XgWuXMP0OPSajPVxJ 9TdbB4pBwVxLLIhRRHeB5 BfqFEsPIagC280UMjpEqN 8FQWjueFoW0Fb XXFpjZagHtK3o6F3Pc2Zn 9DzntckMKC8GZgsWPJhXo GbVqWcKlR8X0LuIco1UFE snAdrSN8vK5Jh JVUkxcmdkhgybMD2XAYcT QBbtM73mUAdHSzlSz6ni0 L8d320UBKpEAFbuB58Fy4 udDogMTBwdCBU fY4kmrjqq7pploncMdAnJ KHgIJs7IYm5ZOQdrMnhLp HrXDM2MwV8BSI8vRKjfY2 kwYwngsrcrF0a Oyc+U02xfT5cBXT6WBQ2r nkeXKAfneNaLT36UN74S3 RyPjwvdGFibGU+PGRpdiB xpJakVT6tGlQm x5anh9NqBVzuI0VhTELqY KzvEwh8XKXjFYY7sEM0oN 2jJMFiTIhvp9P6rDK9U8K dsvEpgo3kt0tz LNJtQPrhC76asEApe6E6H GOadUX6BLVunIrrRnJnnD 93Oyc+NOTxeVgjn6QmBdx zg9iqf2vprTn8 HnOeONFxghDezAenUVJ7v 7CjIm10Z59iOVedIRNaKZ QoXYHvSQQnpUtgvq0jsS0 wIi8+PGNvbCB3 zTY2jM7tXWKgPoL5YOpeC 481FbOazDAyAubtv8hkq2 vzoLc9XqYtMDZthoQhfBx gYNJ2n4EhUh77 J83zEZxhHBViDOWeNOMdX MTraEygbb2sqD4bGx8+PC 4vn0djiv63vT68tLP+PHR wHHW8cZzqDIpp LDLkqX3vXKvkRzQ0FPHaA fKrkV26vWSmTNqaOm7lwV xrfEomQJ3bINXqxnldb78 4DlPxb5edBVZa jASlBCyiVMH7O67ok7Y2E CWjZWBgYZW8gON0rZ2iqR lnbjogbGVmdDsgdmVydGl bCRdfOOqkG057 IHRvcDsnPlBhdGllbnQgT gOmKSc8P2QiJux7TARxsP anVR4tiPQfGQqfGh2cxAt koVclNM3wLOPf rxmgj998AtFch1rbPOFav WJmJDhdQNH9R11vn7Z6GY YtBZYcXEZ7pAI9bD6siVy nbjogbGVmdDsg nbTmqZmlSMyfDZymE963S HRvcDsnPkJpcnRoIERhdG C5QK75JT24uIUle8Q0vWN 2Z9XmTWJdhpqv hgrdjMF9QTVtLCQqyW44S k0alVcnPr0dXQWsFPN2DF CbcVKwC8LriT6fCuSiCXV mGLXmH7AvtXOy ZApsF701JHgbAhH6QNDhj kXbZ2AsCJRriOacNfD0v1 Q5Yi2ZI2O9BN98RX32bSB iu0L0hPR3B8Zl RRSgyvxchaffxQP3PLSrO FFmzC17Xd6osJexEa2sNH OyQDK5KNMasVCoD5IzqJ9 yOiAjMDAwMDAw B5AzjJUlSDwaM036KDxqU fS4WERxvdHgY1LmIWZhqU umJhA8m7N3Nb7FIJc5WC9 6ZA07eAUdi7R4 uVE6A4WrTQDqlgrqgcdtt HT9IRNtYGQpvE37Hk4fvF ioOo4yDONaRUU8ULQgjPV fP4XxsG5eIbLj HHGuVMMhO5NunRGbVInjQ 174CDhkVqD8FVDwccWyM7 WzXFYnwIexBaQ3u0S6Iz5 IDHVfGC76YMY4 mKV6XB80HC47X5FyWxxzc GFibGU+PHRhYmxlIHdpZH RoPScxMDAlJyBzdHlsZT0 wHx8pLTWkFWHb uUimzNBkIbHuf2bpMQAzB YryCV0geIruR0CfwSV4AY Fui8d9Ou14W83nE9FhhTQ +FYNmmIE5wGO0 nQ4bYrXwTdH5JYvcP996I aQczTToVhqde9knl3cfoF d1SvJ3QCUjnwNpfNphQUI 5w6WpPq07W83a IHdpZHRoPSIxNSUiIHZhb Hocie9pxM1gEu7+PGNvbC V9nYY8aL1pMfWxYiO7RYv dD505HwUiyUVf Xmmpb9qln7vvuLx1JdFtH VCputPqaHrbAUO4f6AtPs 34H2ObjUbno4WdOgm4xd4 9oDApp5H0bOX5 R3GcWWCkweqfhENtzBxnZ Q3sLALjwszyRWLqnL3xLH UrA5r3AbMbGmE8CHdmW3B rmhX3SIGorOMn NMocWFL4L74on1W7KLRnO LCqQYD3gXJ0hL4hbSfgyf ogbGVmdDsgdmVydGljYWw pEUwkZ429GAUh lKcsIFCzkI8hHABjgJSia MvuBK5yPVLgxfeqVwEJFl ZIIFamMMPNSahXJGt1F1F hUar7JGDrfOwv YM9qhDFlLLynWf3vcZcnz TabHB9sQMMwnajeCDZplX 4eQNHjyAXnyDshLZ0uJTM bvehzl022DdRc LYI2QJFcoOFrF2VcpJ9vY eDtLCEwTSQuG8SwuLYbLQ vyH661WUysOtB0MYGpmcZ qE4EjTYHvqTxa IrR7p4L0Fq8yGN5oGI8pN FR9RR86YB99rWKwf7Y5lE P6J2NsHPXhvylmissrlIC 8DFRuBMGmmM88 dONdEEywLw5vg4G2x843C ZOtDRUynI57Dc2jyMcmUL MeuNSJeP1aotrun1mmejb gIzAwMDAwMDt0 JNk2FFPqsCxpWhUiWNA8S qQ8XPM0pVNgyQ3qrAtahg schX5oBzc+NzMgWWVhcnM 9Y9GzRnk2CTZc iJjlRI9eqGHnRBcrNi5ad YkxjGneBF1zJROkcjhpHE EjhB9hAVUhtYLslQlgQS3 kGEAkrdkrz220 BbJuFNB5PDRvcWWuN7Bcb I4uPeKsKDLcSVEaJ7OtrF PvUTefU057SFvoWqU4CUH xyxXyR7BjUODc xSmyEiS4s3Q0Sg0IPQvsR G32UP90nGKhb3X2wJY6P2 RcTBCthkokwvetfDM6EKV xZJIzwC06xEHr KFgrYn5my3L3w997HTTsH SNeoY96Wo1pzWdoZPNebW BBhR0bxnhmv7rqzdtmJtU cMGVtCOv6LCk1 FRIegVbyPqRfXIX5EwA2D OQ9lYUerZ1qmZnnnwzjrM 9wOyc+PrYphQOaeE1mYE5 6XN16L3TpTyzb dGFibGU+PHRhYmxlIHdpZ HRoPScxMDAlJyBzdHlsZT 6pRg1fARXhCGSegMansJM cHcAfs5pfOFWg UIphAL2mqRrjJ1RgmIX9G VLci6i0Ws05M77bC0SzqC A+WZMnbKR4qAS2rG7rXvL nVdL2YAjsH828 ItLlhFSrOkevj3rdn4gmb Bw1CySgOBLfqbEydPulJH V3n3LvEd74K81eMBwaCGR oPSIyMCUiIHZh dZhtrm0apW7nJb7+PGNvb VD4qTO1xT5fEtDdZnQ9FM neT754KgLdwRUeTbqaH93 tS5CmgZG+PHRy Nuw4KOGxcKmzQW7lmGUdD GjkNj3oOAN9FoBuReBeJS vcJ3YkQFTtxffwcnitkVN 1VVFjDJIcaW23 Vd9lcRawWv8aUMQyTBU9P CGquYJaJ1AgrX8jQrMcQG UjGGJyX6KxcYFeNFoaJ26 9JGvpBxM6IKAn ckCsY5UqEWKlhPmvDcA0j 4Q4Xf9DmJtoyDLiZN1kIw XsOCl6G2GeAqc8WTRpqUj oEW3rkSYvUMsn Ml8qfInnzTyyCO5yKTVvv gkmv173LkNcu0leXPIvoZ GbQJtcOJU4Q40jc2C2EWH lIYHkATE0vMA7 yU1tbFtpomzcoTGwnZkmz yKurMaaNPhoZGjrC555QU GfoWtxEwYECdn4G3OoQdk 4CSBqoPxlUM9v kJFiGBfyIq5jhInncJujO O1kEHBbbvrrf221KgWuf3 ubRYZqeOHgGFteJQB8U56 nm8I0ONCaHEFj HAM3uXD4gI2tlXyvjhjmx GVmdDsgdmVydGljYWwtYW ttY512FRChjRiuHp4CIsa 1S9IgNty6XBQu iWyxLN9wmFKzDSxuPm3zw RnkiGlrZL4eQSCttetiw0 46PfCcz7rwYKFopXPaRRr gXTK8R40od4A6 OTDiRAAeMHH3fFE2yZ7xb GlnbjogbGVmdDsgdmVydG fhJWaiNAjpO884SCVqmXc nPlBheWVyOjwv dGQ+QK11qh72C6PqJulzC oz4HCWeBKK7rOP6kI3kUN ZpKCfcq2J2aNO6K7JhrzX tkt2xy8ncTOSf ZTog (more content not included)... Normal [facility] POCT PT/INRon 04-05-2022 POCT INR 1.3 High .7-1.2 [facility] Comment on above: Performed By: #### 2 [id number] #### [facility] [address] [place] [address] POCT PT 15.0 second(s) Normal 8.0-15.0 [facility] Comment on above: Performed By: #### 2 [id number] #### [facility] [address] [place] [address] POCT INR Error Invalid Interpretation Code .7-1.2 [facility] Comment on above: Performed By: #### 1 [id number] #### [facility] [address] [place] [address] POCT PT Strip Error Invalid Interpretation Code 8.0-15.0 [facility] Comment on above: Performed By: #### 1 [id number], [id number] #### [facility] [address] [place] [address] POCT INR Error Invalid Interpretation Code .7-1.2 [facility] Comment on above: Performed By: #### 1 [id number], [id number], [id number], [id number] #### [facility] [address] [place] [address] POCT PT Strip Error Invalid Interpretation Code 8.0-15.0 [facility] Comment on above: Performed By: #### 1 [id number], [id number], [id number], [id number] #### [facility] [address] [place] [address] Physician Orderon 04-01-2022 Physician Order [id number]# 1.00CD:127 Normal [facility] Consent for Treatmenton Consent for Treatment [id number] .00CD:127 Normal [facility] POCT PT/INRon 03-29-2022 POCT INR 1.3 High .7-1.2 [facility] Comment on above: Performed By: #### 2 [id number] #### [facility] [address] [place] [address] POCT PT 14.2 second(s) Normal 8.0-15.0 [facility] Comment on above: Performed By: #### 2 [id number] #### [facility] [address] [place] [address] [facility] echo transthoracicon [facility] echo transthoracic [address] [address] Echocardiogram Signed Patient: Fredrick Srtoud MR#: [id number] 427 : 1950 Acct:[id number] Age/Sex: 71 / M ADM Date: 03/27/22 Loc: Room: Type: [facility] Attending Dr: Sejal Link NODULIZER-C Ordering Provider: Sejal Link APRN Date of Service: 03/27/22/ ECH/ECH echo transthoracic: Afib. SOB. HTN. Copies to: LUCY Hankins MD, [facility] BSA: 2.2 m2 BP: 125/82 mmHg [...] 03/27/22 1449 Signed By: Love Gaviria MD, [facility] 03/27/22 1557 Normal [facility] Free T4 (Free Thyroxine)on 0 03-27-2022 Free T4 [Mass/Vol] 1.01 ng/dL Normal 0.61-1.12 [facility] Comment on above: Order Comment: Reaso n for Exam Atrial fibrillation;Essential hypertension Performed By: #### C BC, CMP, HS TROP, BNP #### [facility] [address] TSH DL <= 0.005 mIU/L QnOrde red By: Sejal Link on 03-27-2022 TSH Qn 2.57 m[IU]/L 0.45-5.33 [facility] Thyroid Stimulating Hormoneo n 03-27-2022 TSH Qn 2.57 m[IU]/L Normal 0.45-5.33 [facility] Comment on above: Order Comment: Reaso n for Exam Atrial fibrillation;Essential hypertension Result Comment: PERF ORMED BY: [place] [address] PATHOLOGIST DRY CHAIN OFFBEARER EYAD HOWARD M.D. Performed By: #### C BC, CMP, HS TROP, BNP #### [facility] [address] [place] [address] [place] Thyroxine (T4) free [Mass/vo lume] in Serum or PlasmaOrdered By: Sejal Link on 03-27-2022 Free T4 [Mass/Vol] 1.01 ng/dL 0.61-1.12 [facility] Triiodothyronine (T3) Freeon 03-27-2022 Triiodothyronine (T3) Free 3.17 pg/mL Normal 2.50-3.90 [facility] Comment on above: Order Comment: Reaso n for Exam Atrial fibrillation;Essential hypertension Result Comment: PERF ORMED BY: [facility] [address] [place] [address] PATHOLOGIST DRY CHAIN OFFBEARER EYAD HOWARD M.D. Performed By: #### C BC, CMP, HS TROP, BNP #### [facility] [address] [place] [id number] [facility] Triiodothyronine (T3) Free [ Mass/volume] in Serum or PlasmaOrdered By: Sejal Link on 03-27-2022 Free T3 [Mass/Vol] 3.17 pg/mL 2.50-3.90 [facility] Office Visit (Cardiology)on 03-21-2022 Follow-up visit [...] Goal 2.0-3.0. Patient would like managed with [facility] Coumadin clinic Follow up in 2 months [...] Signs Recorded: 21Mar2022 02:26PM Heart Rate67, Apical Szsslizt022, RUE, Eismyqz133, LUE, Sitting Jzlckmxzk13, RUE, Sbecwct10, LUE, Sitting He (more content not included)... Normal [facility] Albumin [Mass/volume] in Ser um or PlasmaOrdered By: Yo Blood on 03-11-2022 Albumin [Mass/Vol] 4.1 g/dL 3.2-5.5 [facility] B-Type Natriuretic Peptideon 03-11-2022 Natriuretic peptide B (Bld) [Mass/Vol] 101.0 pg/mL High 5-100 [facility] Comment on above: Result Comment: PERF ORMED BY: [place] [address] PATHOLOGIST DRY CHAIN OFFBEARER EYAD HOWARD M.D. Performed By: #### C BC, CMP, HS TROP, BNP #### [address] Basophils Auto (Bld) [#/Vol] Ordered By: Yo Blood on 03-11-2022 Basophils (Bld) [#/Vol] 0.0 10*3/uL 0.0-0.2 [facility] Basophils/100 WBC Auto (Bld) Ordered By: Yo Blood on 03-11-2022 Basophils/100 WBC (Bld) 1.1 % . [facility] COVID-19 Antigenon 3 COVID-19 Antigen Healthcare Worker?: [...] developed and its performance characteristic determined by [employer] and validated at [facility]. This test has not been FDA cleared [...] for SARS Antigen by OLY PERFORMED BY: [facility] [address] [place] [address] PATHOLOGIST DRY CHAIN OFFBEARER EYAD HOWARD M.D. [facility] Comment on above: Performed By: #### C OVID-19 GERTRUDE, SOFIANEG #### [address] [address] COVID-19 SOFIAOrdered By: Buster Blood on 03-11-2022 SARS-CoV+SARS-CoV-2 (COVID-19) Ag IA.rapid Ql (Resp) Negative Negative [facility] Comment on above: This is a duplicate Gertrude SARS Antigen (OLY) result to be used for statistical tracking purpose only. Complete Blood Count Auto Di ffon 03-11-2022 Basophils (Bld) [#/Vol] 0.0 10*3/uL Normal 0.0-0.2 [facility] Comment on above: Result Comment: PERF ORMED BY: [place] [address] PATHOLOGIST DRY CH[employer] OFFBEARER EYAD HOWARD M.D. Performed By: #### C BC, CMP, HS TROP, BNP #### [address] Basophils/100 WBC (Bld) 1.1 % Normal . [facility] Comment on above: Performed By: #### C BC, CMP, HS TROP, BNP #### [address] Eosinophils (Bld) [#/Vol] 0.0 10*3/uL Normal 0.0-0.45 [facility] Comment on above: Performed By: #### C BC, CMP, HS TROP, BNP #### [address] Eosinophils/100 WBC (Bld) 0.4 % Normal . [facility] Comment on above: Performed By: #### C BC, CMP, HS TROP, BNP #### [address] Erythrocyte distribution width (RBC) [Ratio] 14.0 % Normal 12.0-14.8 [facility] Comment on above: Performed By: #### C BC, CMP, HS TROP, BNP #### [address] Hematocrit (Bld) [Volume fraction] 46.7 % Normal 38.8-50.0 [facility] Comment on above: Performed By: #### C BC, CMP, HS TROP, BNP #### [facility] [address] Hemoglobin (Bld) [Mass/Vol] 15.3 g/dL Normal 13.0-17.0 [facility] Comment on above: Performed By: #### C BC, CMP, HS TROP, BNP #### [facility] [address] Lymphocytes (Bld) [#/Vol] 1.1 10*3/uL Normal 1.00-4.8 [facility] Comment on above: Performed By: #### C BC, CMP, HS TROP, BNP #### [address] Lymphocytes/100 WBC (Bld) 29.0 % Normal . [facility] Comment on above: Performed By: #### C BC, CMP, HS TROP, BNP #### [address] MCH (RBC) [Entitic mass] 29.4 pg Normal 27.5-35.2 [facility] Comment on above: Performed By: #### C BC, CMP, HS TROP, BNP #### [address] MCV (RBC) [Entitic vol] 89.6 fL Normal 83.5-101 [facility] Comment on above: Performed By: #### C BC, CMP, HS TROP, BNP #### [address] Mean Corpuscular HGB Conc 32.8 g/dL Normal 32.5-35.6 [facility] Comment on above: Performed By: #### C BC, CMP, HS TROP, BNP #### [place] [address] [place] Monocytes (Bld) [#/Vol] 0.8 10*3/uL Normal 0.0-0.8 [facility] Comment on above: Performed By: #### C BC, CMP, HS TROP, BNP #### [address] Monocytes/100 WBC (Bld) 20.67 % High 0.00-20.00 [facility] Comment on above: Result Comment: For adults in ED, MDW > 20.0 may be associated with a higher risk of sepsis during the first 12 hrs of hospital admission Performed By: #### C BC, CMP, HS TROP, BNP #### [facility] [address] Monocytes/100 WBC (Bld) 20.9 % Normal . [facility] Comment on above: Performed By: #### C BC, CMP, HS TROP, BNP #### [facility] [address] Neutrophils (Bld) [#/Vol] 1.8 10*3/uL Normal 1.8-7.7 [facility] Comment on above: Performed By: #### C BC, CMP, HS TROP, BNP #### [facility] [address] Neutrophils/100 WBC (Bld) 48.6 % Normal . [facility] Comment on above: Performed By: #### C BC, CMP, HS TROP, BNP #### [facility] [address] [place] [address] [place] NRBC% 0.2 /100{WBC} Normal 0-0.5 [facility] Comment on above: Performed By: #### C BC, CMP, HS TROP, BNP #### [facility] [address] [place] [address] [place] Platelet mean volume (Bld) [Entitic vol] 8.5 fL Normal 6.6-10.1 [facility] Comment on above: Performed By: #### C BC, CMP, HS TROP, BNP #### [facility] [address] [place] [address] [place] Platelets (Bld) [#/Vol] 197 10*3/uL Normal 150-450 [facility] Comment on above: Performed By: #### C BC, CMP, HS TROP, BNP #### [facility] [address] [place] [address] [place] RBC (Bld) [#/Vol] 5.21 10*6/uL Normal 3.90-5.[address] [facility] Comment on above: Performed By: #### C BC, CMP, HS TROP, BNP #### [facility] [address] [place] [address] WBC (Bld) [#/Vol] 3.7 10*3/uL Low 4.1-10.5 [facility] Comment on above: Performed By: #### C BC, CMP, HS TROP, BNP #### [address] Comprehensive Metabolic Pane rigo 03-11-2022 Albumin [Mass/Vol] 4.1 g/dL Normal 3.2-5.5 [facility] Comment on above: Performed By: #### C BC, CMP, HS TROP, BNP #### [address] Albumin/Globulin [Mass ratio] 1.5 {ratio} Normal [facility] Comment on above: Performed By: #### C BC, CMP, HS TROP, BNP #### [address] ALP [Catalytic activity/Vol] 79 U/L Normal 32-92 [facility] Comment on above: Performed By: #### C BC, CMP, HS TROP, BNP #### [address] ALT [Catalytic activity/Vol] 23 U/L Normal 10-60 [facility] Comment on above: Performed By: #### C BC, CMP, HS TROP, BNP #### [address] Anion gap [Moles/Vol] 13.7 mmol/L Normal 6.0-15.0 [facility] Comment on above: Performed By: #### C BC, CMP, HS TROP, BNP #### [address] AST [Catalytic activity/Vol] 32 U/L Normal 10-42 [facility] Comment on above: Performed By: #### C BC, CMP, HS TROP, BNP #### [facility] [address] Bilirubin [Mass/Vol] 0.6 mg/dL Normal 0.3-1.2 [facility] Comment on above: Performed By: #### C BC, CMP, HS TROP, BNP #### [facility] [address] Calcium [Mass/Vol] 9.2 mg/dL Normal 8.2-10.2 [facility] Comment on above: Performed By: #### C BC, CMP, HS TROP, BNP #### [facility] [address] Chloride [Moles/Vol] 98 mmol/L Normal 95-114 [facility] Comment on above: Performed By: #### C BC, CMP, HS TROP, BNP #### [facility] [address] CO2 [Moles/Vol] 29.0 mmol/L Normal 22.0-30.0 [facility] Comment on above: Performed By: #### C BC, CMP, HS TROP, BNP #### [facility] [address] [place] [address] [place] Creatinine [Mass/Vol] 0.86 mg/dL Normal 0.64-1.27 [facility] Comment on above: Performed By: #### C BC, CMP, HS TROP, BNP #### [facility] [address] [place] [address] [place] Creatinine Clr Calc Pharmacy 91.63 [facility] Comment on above: Result Comment: PERF ORMED BY: [place] [address] PATHOLOGIST DRY CHAIN OFFBEARER EYAD HOWARD M.D. Performed By: #### C BC, CMP, HS TROP, BNP #### [facility] [address] [place] [address] Estimated GFR ( Jessica > 60 Normal [facility] Comment on above: Result Comment: GFR estimated reference range: According to KDOQI guidelines, <60 ml/min/1.73m2 is sufficient to diagnose a patient with chronic kidney disease. Performed By: #### C BC, CMP, HS TROP, BNP #### [facility] [address] Estimated GFR (Non- Am > 60 Normal [facility] Comment on above: Performed By: #### C BC, CMP, HS TROP, BNP #### [facility] [address] Globulin (S) [Mass/Vol] 2.8 g/dL Normal [facility] Comment on above: Performed By: #### C BC, CMP, HS TROP, BNP #### [facility] [address] Glucose [Mass/Vol] 91 mg/dL Normal 70-100 [facility] Comment on above: Result Comment: [place] Glucose Reference Range is dependent on time and content of last meal. Glucose of more than 200 mg/dL in a nonstressed, ambulatory subject supports the diagnosis of Diabetes Mellitus. ADA recommended reference range Performed By: #### C BC, CMP, HS TROP, BNP #### [facility] [address] Potassium [Moles/Vol] 3.7 mmol/L Normal 3.5-5.1 [facility] Comment on above: Performed By: #### C BC, CMP, HS TROP, BNP #### [facility] [address] [place] [address] [place] Protein [Mass/Vol] 6.9 g/dL Normal 6.1-7.9 [facility] Comment on above: Performed By: #### C BC, CMP, HS TROP, BNP #### [facility] [address] [place] [address] [place] Sodium [Moles/Vol] 137 mmol/L Normal 136-146 [facility] Comment on above: Performed By: #### C BC, CMP, HS TROP, BNP #### [facility] [address] [place] [address] [place] Urea nitrogen [Mass/Vol] 10 mg/dL Normal 9-23 [facility] Comment on above: Performed By: #### C BC, CMP, HS TROP, BNP #### [facility] [address] [place] [id number] [place] Creatinine and Glomerular fi ltration rate.predicted panel (S/P/Bld)Ordered By: Yo Blood on 03-11-2022 Creatinine [Mass/Vol] 0.86 mg/dL 0.64-1.27 [facility] ECG 12 lead ECGon 03-11-2022 ECG 12 lead ECG [facility] [place] [address] Electrocardiograph Report Signed Patient: Fredrick Stroud MR#: [id number] 427 : 1950 Acct:[id number] Age/Sex: 71 / M ADM Date: 03/11/22 [...] voltage QRS Confirmed by Yo BLOOD DO ([id number]) on 03/11/2022 9:03:33 PM Referred By: Electronically Signed By:Yo BLOOD DO Transcribed By: MUS Signed By Yo Blood DO 0 03/11/222102 Normal [facility] ECG 12 lead ECG [facility] [address] [place] [id number] Electrocardiograph Report Signed Patient: Fredrick Stroud MR#: [id number] 427 : 1950 Acct:[id number] Age/Sex: 71 / M ADM Date: 03/11/22 [...] voltage QRS Confirmed by Yo BLOOD DO ([id number]) on 03/11/2022 7:52:28 PM Referred By: Electronically Signed By:Yo BLOOD DO Transcribed By: MUS Signed By Yo Blood DO 0 03/11/221951 Normal [facility] Eosinophils Auto (Bld) [#/Vo l]Ordered By: Yo Blood on 03-11-2022 Eosinophils (Bld) [#/Vol] 0.0 10*3/uL 0.0-0.45 [facility] Eosinophils/100 WBC Auto (Bl d)Ordered By: Yo Blood on 03-11-2022 Eosinophils/100 WBC (Bld) 0.4 % . [facility] Erythrocyte distribution wid th Auto (RBC) [Ratio]Ordered By: Yo Blood on 03-11-2022 Erythrocyte distribution width (RBC) [Ratio] 14.0 % 12.0-14.8 [facility] Estimated glomerular filtrat ion rate (GFR) non- AmericanOrdered By: Yo Blood on 03-11-2022 GFR/1.73 sq M.predicted among non-blacks MDRD (S/P/Bld) [Vol rate/Area] > 60 mL/Min [facility] Globulin Calc (S) [Mass/Vol] Ordered By: Yo Blood on 03-11-2022 Globulin (S) [Mass/Vol] 2.8 g/dL [facility] Hematocrit Auto (Bld) [Volum e fraction]Ordered By: Yo Blood on 03-11-2022 Hematocrit (Bld) [Volume fraction] 46.7 % 38.8-50.0 [facility] Hemoglobin [Mass/volume] in BloodOrdered By: Yo Blood on 03-11-2022 Hemoglobin (Bld) [Mass/Vol] 15.3 g/dL 13.0-17.0 [facility] Laboratory - Chemistry and C hemistry - challengeOrdered By: Yo Blood on 03-11-2022 Natriuretic peptide B (Bld) [Mass/Vol] 101.0 pg/mL 5-100 [facility] Leukocytes [#/volume] correc vlad for nucleated erythrocytes in Blood by Automated counOrdered By: Yo Blood on 03-11-2022 WBC corrected for nucl RBC Auto (Bld) [#/Vol] 3.7 10*3/uL 4.1-10.5 [facility] Lymphocytes Auto (Bld) [#/Vo l]Ordered By: Yo Blood on 03-11-2022 Lymphocytes (Bld) [#/Vol] 1.1 10*3/uL 1.00-4.8 [facility] Lymphocytes/100 WBC Auto (Bl d)Ordered By: Yo Blood on 03-11-2022 Lymphocytes/100 WBC (Bld) 29.0 % . [facility] MCH Auto (RBC) [Entitic mass ]Ordered By: Yo Blood on 03-11-2022 MCH (RBC) [Entitic mass] 29.4 pg 27.5-35.2 [facility] MCHC Auto (RBC) [Mass/Vol]Or dered By: Yo Blood on 03-11-2022 MCHC (RBC) [Mass/Vol] 32.8 g/dL 32.5-35.6 [facility] MCV Auto (RBC) [Entitic vol] Ordered By: Yo Blood on 03-11-2022 MCV (RBC) [Entitic vol] 89.6 fL 83.5-101 [facility] Monocyte distribution width [Entitic volume] in Blood by AutomatedOrdered By: Yo Blood on 03-11-2022 Monocyte distribution width Auto (Bld) [Entitic vol] 20.67 % 0.00-20.00 [facility] Comment on above: For adults in ED, MD W > 20.0 may be associated with a higher risk of sepsis during the first 12 hrs of hospital admission Monocytes Auto (Bld) [#/Vol] Ordered By: Yo Blood on 03-11-2022 Monocytes (Bld) [#/Vol] 0.8 10*3/uL 0.0-0.8 [facility] Monocytes/100 WBC Auto (Bld) Ordered By: Yo Blood on 03-11-2022 Monocytes/100 WBC (Bld) 20.9 % . [facility] Neutrophils Auto (Bld) [#/Vo l]Ordered By: Yo Blood on 03-11-2022 Neutrophils (Bld) [#/Vol] 1.8 10*3/uL 1.8-7.7 [facility] Neutrophils/100 WBC Auto (Bl d)Ordered By: Yo Blood on 03-11-2022 Neutrophils/100 WBC (Bld) 48.6 % . [facility] No Panel InformationOrdered By: Yo Blood on 03-11-2022 SARS Antigen (LFIA) [facility] Estimated GFR () > 60 mL/Min [facility] Comment on above: GFR estimated refere nce range: According to KDOQI guidelines, <60 ml/min/1.73m2 is sufficient to diagnose a patient with chronic kidney disease. Pharmacy Creatinine Clearance (Chem 91.63 [facility] Nucleated erythrocytes [Pres ence] in Blood by Automated countOrdered By: Yo Blood on 03-11-2022 Nucleated RBC Auto Ql (Bld) 0.2 /100{WBC} 0-0.5 [facility] Platelet mean volume Auto (B ld) [Entitic vol]Ordered By: Yo Blood on 03-11-2022 Platelet mean volume (Bld) [Entitic vol] 8.5 fL 6.6-10.1 [facility] Platelets Auto (Bld) [#/Vol] Ordered By: Yo Blood on 03-11-2022 Platelets (Bld) [#/Vol] 197 10*3/uL 150-450 [facility] Protein [Mass/volume] in Ser um or PlasmaOrdered By: Yo Blood on 03-11-2022 Protein [Mass/Vol] 6.9 g/dL 6.1-7.9 [facility] RBC Auto (Bld) [#/Vol]Ordere d By: Yo Blood on 03-11-2022 RBC (Bld) [#/Vol] 5.21 10*6/uL 3.90-5.[address] [facility] Serum or plasma alanine sullivan otransferase measurement without P-5'-P (enzymatic activiOrdered By: Yo Blood on 01-16-2023 ALT No additional P-5'-P [Catalytic activity/Vol] 23 U/L 10-60 [facility] Serum or plasma albumin/glob ulin mass ratioOrdered By: Yo Blood on 03-11-2022 Albumin/Globulin [Mass ratio] 1.5 {ratio} [facility] Serum or plasma alkaline faviola sphatase measurement (enzymatic activity/volume)Ordered By: Yo Blood on 03-11-2022 ALP [Catalytic activity/Vol] 79 U/L 32-92 [facility] Serum or plasma anion gap de terminationOrdered By: Yo Blood on 03-11-2022 Anion gap [Moles/Vol] 13.7 mmol/L 6.0-15.0 [facility] Serum or plasma aspartate am inotransferase measurement (enzymatic activity/volume)Ordered By: Yo Blood on 03-11-2022 AST [Catalytic activity/Vol] 32 U/L 10-42 [facility] Serum or plasma calcium echo urement (mass/volume)Ordered By: Yo Blood on 03-11-2022 Calcium [Mass/Vol] 9.2 mg/dL 8.2-10.2 [facility] Serum or plasma chloride tessie surement (moles/volume)Ordered By: Yo Blood on 03-11-2022 Chloride [Moles/Vol] 98 mmol/L 95-114 [facility] Serum or plasma glucose echo urement (mass/volume)Ordered By: Yo Blood on 03-11-2022 Glucose [Mass/Vol] 91 mg/dL 70-100 [facility] Comment on above: ADA recommended refe rence rangeRandom Glucose Reference Range is dependent on time and content of last meal. Glucose of more than 200 mg/dL in a nonstressed, ambulatory subject supports the diagnosis of Diabetes Mellitus. Serum or plasma potassium me asurement (moles/volume)Ordered By: Yo Blood on 03-11-2022 Potassium [Moles/Vol] 3.7 mmol/L 3.5-5.1 [facility] Serum or plasma sodium measu rement (moles/volume)Ordered By: Yo Blood on 03-11-2022 Sodium [Moles/Vol] 137 mmol/L 136-146 [facility] Serum or plasma total biliru bin measurement (mass/volume)Ordered By: Yo Blood on 03-11-2022 Bilirubin [Mass/Vol] 0.6 mg/dL 0.3-1.2 [facility] Serum or plasma total carbon dioxide measurement (moles/volume)Ordered By: Yo Blood on 03-11-2022 CO2 [Moles/Vol] 29.0 mmol/L 22.0-30.0 [facility] Serum or plasma urea nitroge n measurement (mass/volume)Ordered By: Yo Blood on 03-11-2022 Urea nitrogen [Mass/Vol] 10 mg/dL 11-16 [facility] Gertrude Ag Negativeon 03-11-19 Gertrude Ag Negative Negative Normal Negative [facility] Comment on above: Result Comment: This is a duplicate Gertrude SARS Antigen (OLY) result to be used for statistical tracking purpose only. PERFORMED BY: [place] [address] PATHOLOGIST DRY CHAIN OFFBEARER EYAD HOWARD M.D. Performed By: #### C OVID-19 GERTRUDE, SOFIANEG #### [facility] [address] [place] [address] [place] Troponin I High Sensitivityo n 03-11-2022 Troponin I High Sensitivity 9 pg/mL Normal 0-20 [facility] Comment on above: Result Comment: PERF ORMED BY: [place] [address] PATHOLOGIST DRY CHAIN OFFBEARER EYAD HOWARD M.D. Performed By: #### C BC, CMP, HS TROP, BNP #### [facility] [address] [place] [address] [place] Troponin I.cardiac [Mass/vol ume] in Serum or Plasma by High sensitivity methodOrdered By: Yo Blood on 03-11-2022 Troponin I.cardiac High sensitivity method [Mass/Vol] 9 pg/mL 0-20 [facility] WBC Auto (Bld) [#/Vol]Ordere d By: Yo Blood on 03-11-2022 WBC (Bld) [#/Vol] 3.7 10*3/uL 4.1-10.5 [facility] XR chest 2V*on 03-11-2022 XR chest 2V* [facility] Main [address] [address] XRay Report Signed Patient: Fredrick Stroud MR#: [id number] 427 : 1950 Acct:[id number] Age/Sex: 71 / M ADM Date: 03/11/22 [...] Ga Dorsey M.D.03/11/2022 1:42 PM Dictation Location: [place] [address] Transcribed By: [facility] 03/11/22 1342 Dictated By: Ga Dorsey II, MD 03/11/22 1339 Signed By: 03/11/22 1342 Normal [facility] XR hip LT min 2V(w/wo pelvis )*on 09-26-2021 XR hip LT min 2V(w/wo pelvis)* [facility] Main [address] [address] XRay Report Signed Patient: Fredrick Stroud MR#: [id number] 427 : 1950 Acct:[id number] Age/Sex: 70 / M ADM Date: 09/26/21 [...] Ariana Tanner M.D.09/26/2021 3:27 PM Dictation Location: [place] [address] Transcribed By: [facility] 09/26/21 152 Dictated By: Ariana Tanner MD 09/26/21 1526 Signed By: 09/26/21 1527 Normal [facility] XR hip LT min 2V(w/wo pelvis )*on 08-15-2021 XR hip LT min 2V(w/wo pelvis)* [facility] Main [place] [address] [place] [address] XRay Report Signed Patient: Fredrick Stroud MR#: [id number] 427 : 1950 Acct:[id number] Age/Sex: 70 / M ADM Date: 08/15/21 [place] [facility] [place]: Type: [facility] Attending Dr: Shahriar Dhillon II, MD [...] 08/15/21 1439 Signed By: 08/15/21 1440 Normal [facility] XR hip LT min 2V(w/wo pelvis)* [facility] Other XR hip LT min 2V(w/wo pelvis)* [facility] Main [place] [employer] Other XR hip LT min 2V(w/wo pelvis)* [address] [place] [address] [employer] Other XR hip LT min 2V(w/wo pelvis)* [place] [address] [employer] Other XR hip LT min 2V(w/wo pelvis)* XRay Report [employer] Other XR hip LT min 2V(w/wo pelvis)* Signed [employer] Other XR hip LT min 2V(w/wo pelvis)* Patient: Fredrick Stroud MR#: [id number] [employer] Other XR hip LT min 2V(w/wo pelvis)* 427 [employer] Other XR hip LT min 2V(w/wo pelvis)* : 1950 Acct:[id number] [employer] Other XR hip LT min 2V(w/wo pelvis)* Age/Sex: 70 / M ADM Date: 08/15/21 [employer] Other XR hip LT min 2V(w/wo pelvis)* Loc: [facility] Room: Type: [facility] [employer] Other XR hip LT min 2V(w/wo pelvis)* Attending Dr: Shahriar Dhillon II, MD [employer] Other XR hip LT min 2V(w/wo pelvis)* Copies to: Shahriar Dhillon MD [employer] Other XR hip LT min 2V(w/wo pelvis)* Ordering Provider: Shahriar Dhillon MD [employer] Other XR hip LT min 2V(w/wo pelvis)* Date of Service: 08/15/21 [employer] Other XR hip LT min 2V(w/wo pelvis)* XR/XR hip LT min 2V(w/wo pelvis)*: Aftercare following joint replacement [employer] Other XR hip LT min 2V(w/wo pelvis)* surgery [employer] Other XR hip LT min 2V(w/wo pelvis)* LEFT HIP - 2 views: 1 view pelvis [employer] Other XR hip LT min 2V(w/wo pelvis)* CLINICAL HISTORY: Follow-up left GEOVANI [employer] Other XR hip LT min 2V(w/wo pelvis)* COMPARISON: Hip series 07/02/2021 [employer] Other XR hip LT min 2V(w/wo pelvis)* FINDINGS: 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 Prostate radiation [employer] Other XR hip LT min 2V(w/wo pelvis)* seeds. Mild degenerative changes right hip. [employer] Other XR hip LT min 2V(w/wo pelvis)* XR/XR hip LT min 2V(w/wo pelvis)* [employer] Other XR hip LT min 2V(w/wo pelvis)* IMPRESSION: [employer] Other XR hip LT min 2V(w/wo pelvis)* NO EVIDENCE OF HARDWARE COMPLICATION. [employer] Other XR hip LT min 2V(w/wo pelvis)* Impression dictated by: Dandy Stevenson Jr., Namita08/15/2021 2:40 PM [employer] Other XR hip LT min 2V(w/wo pelvis)* Dictation Location: [facility] [employer] Other XR hip LT min 2V(w/wo pelvis)* Transcribed By: PWS 08/15/21 1440 [employer] Other XR hip LT min 2V(w/wo pelvis)* Dictated By: Dandy Stevenson Jr, DO 08/15/21 1439 [employer] Other XR hip LT min 2V(w/wo pelvis)* Signed By: [employer] Other XR hip LT min 2V(w/wo pelvis)* 08/15/21 1440 [employer] Other Basic Metabolic Panelon 05 Calcium [Mass/Vol] 8.6 mg/dL Normal 8.2-10.2 [facility] Comment on above: Performed By: #### C BC, BMP #### [facility] [address] [place] [address] [place] Chloride [Moles/Vol] 102 mmol/L Normal 95-114 [facility] Comment on above: Performed By: #### C BC, BMP #### [facility] [address] [place] [id number] [place] CO2 [Moles/Vol] 25.5 mmol/L Normal 22.0-30.0 [facility] Comment on above: Performed By: #### C BC, BMP #### [facility] [address] [place] [address] [place] Creatinine [Mass/Vol] 0.96 mg/dL Normal 0.64-1.27 [facility] Comment on above: Performed By: #### C BC, BMP #### [facility] [address] [place] [address] [place] Creatinine Clr Calc Pharmacy 81.73 [facility] Comment on above: Result Comment: PERF ORMED BY: [place] [address] PATHOLOGIST DRY CHAIN OFFBEARER EYAD HOWARD M.D. Performed By: #### C BC, BMP #### [address] Estimated GFR ( Jessica > 60 [facility] Comment on above: Result Comment: GFR estimated reference range: According to KDOQI guidelines, <60 ml/min/1.73m2 is sufficient to diagnose a patient with chronic kidney disease. Performed By: #### C BC, BMP #### [address] Estimated GFR (Non- Am > 60 [facility] Comment on above: Performed By: #### C BC, BMP #### [address] Glucose [Mass/Vol] 167 mg/dL High 70-100 [facility] Comment on above: Result Comment: [place] Glucose Reference Range is dependent on time and content of last meal. Glucose of more than 200 mg/dL in a nonstressed, ambulatory subject supports the diagnosis of Diabetes Mellitus. ADA recommended reference range Performed By: #### C BC, BMP #### [address] Potassium [Moles/Vol] 4.4 mmol/L Normal 3.5-5.1 [facility] Comment on above: Performed By: #### C BC, BMP #### [place] [address] [place] Sodium [Moles/Vol] 135 mmol/L Low 136-146 [facility] Comment on above: Performed By: #### C BC, BMP #### [address] Urea nitrogen [Mass/Vol] 18 mg/dL Normal 9-23 [facility] Comment on above: Performed By: #### C BC, BMP #### [address] Complete Blood Count Auto Di ffon 07-03-2021 Basophils (Bld) [#/Vol] 0.0 10*3/uL Normal 0.0-0.2 [facility] Comment on above: Result Comment: PERF ORMED BY: [place] [address] PATHOLOGIST DRY CHAIN OFFBEARER EYAD HOWARD M.D. Performed By: #### C BC, BMP #### [address] Basophils/100 WBC (Bld) 0.3 % Normal . [facility] Comment on above: Performed By: #### C BC, BMP #### [address] Eosinophils (Bld) [#/Vol] 0.0 10*3/uL Normal 0.0-0.45 [facility] Comment on above: Performed By: #### C BC, BMP #### [address] Eosinophils/100 WBC (Bld) 0.0 % Normal . [facility] Comment on above: Performed By: #### C BC, BMP #### [address] Erythrocyte distribution width (RBC) [Ratio] 14.2 % Normal 12.0-14.8 [facility] Comment on above: Performed By: #### C BC, BMP #### [address] Hematocrit (Bld) [Volume fraction] 32.9 % Low 38.8-50.0 [facility] Comment on above: Performed By: #### C BC, BMP #### [place] [address] [place] Hemoglobin (Bld) [Mass/Vol] 11.2 g/dL Low 13.0-17.0 [facility] Comment on above: Performed By: #### C BC, BMP #### [address] Lymphocytes (Bld) [#/Vol] 0.6 10*3/uL Low 1.00-4.8 [facility] Comment on above: Performed By: #### C BC, BMP #### [facility] [address] [place] [address] [place] Lymphocytes/100 WBC (Bld) 4.7 % Normal . [facility] Comment on above: Performed By: #### C BC, BMP #### [facility] [address] MCH (RBC) [Entitic mass] 30.1 pg Normal 27.5-35.2 [facility] Comment on above: Performed By: #### C BC, BMP #### [facility] [address] MCV (RBC) [Entitic vol] 88.7 fL Normal 83.5-101 [facility] Comment on above: Performed By: #### C BC, BMP #### [address] Mean Corpuscular HGB Conc 33.9 g/dL Normal 32.5-35.6 [facility] Comment on above: Performed By: #### C BC, BMP #### [facility] [address] [place] [address] [place] Monocytes (Bld) [#/Vol] 1.0 10*3/uL High 0.0-0.8 [facility] Comment on above: Performed By: #### C BC, BMP #### [facility] [address] [place] [address] [place] Monocytes/100 WBC (Bld) 8.3 % Normal . [facility] Comment on above: Performed By: #### C BC, BMP #### [facility] [address] [place] [address] [place] Neutrophils (Bld) [#/Vol] 10.9 10*3/uL High 1.8-7.7 [facility] Comment on above: Performed By: #### C BC, BMP #### [facility] [address] [place] [address] [place] Neutrophils/100 WBC (Bld) 86.7 % Normal . [facility] Comment on above: Performed By: #### C BC, BMP #### [facility] [address] Nucleated RBC/100 WBC (Bld) [Ratio] 0.0 % Normal 0-0.5 [facility] Comment on above: Performed By: #### C BC, BMP #### [facility] [address] Platelet mean volume (Bld) [Entitic vol] 8.4 fL Normal 6.6-10.1 [facility] Comment on above: Performed By: #### C BC, BMP #### [facility] [address] Platelets (Bld) [#/Vol] 210 10*3/uL Normal 150-450 [facility] Comment on above: Performed By: #### C BC, BMP #### [facility] [address] RBC (Bld) [#/Vol] 3.71 10*6/uL Low 3.90-5.[address] [facility] Comment on above: Performed By: #### C BC, BMP #### [facility] [address] WBC (Bld) [#/Vol] 12.5 10*3/uL High 4.5-11.[address] [facility] Comment on above: Performed By: #### C AKHIL, BMP #### [address] ECG 12 lead ECGon 07-02-2021 ECG 12 lead ECG [facility] Main [place] [address] [place] [address] Electrocardiograph Report Signed Patient: Fredrick Stroud MR#: [id number] 427 : 1950 Acct:[id number] Age/Sex: 70 / M ADM Date: 07/02/21 Loc: [place] Room: Type: [facility] Attending Dr: Shahriar Dhillon II, MD [...] Signed By Moreno Rosario DO 07/02 1306 [facility] [place] 07-02-2021 L - -------- Specimen: [id number] Received: 07/02/21 Status: LORETTA Solis Num: [id number] Spec Type: Surgical Subm Dr: Shahriar Dhillon MD Tissues: A Femoral Head - Other than Fracture (L HIP) Procedures: HE Stain, Gross/Micro L3, Decal -------- Patient Age/Sex Location Account Attending Physician -------- Fredrick Stroud 70/M 4N [id number] Shahriar Dhillon MD -------- SPEC NUM: [id number] RECD: 07/02/21 STATUS: LORETTA SOLIS NUM: [id number] MILY: 07/02/21 DR: Shahriar Dhillon MD ENTERED: [...] bone fragments and scant soft tissue. A technical services representative section of bone, following formalin fixation and decalcification is submitted in cassette A 1. ([id number]) -------- Specimen: [id number] Received: 07/02/21 Status: LORETTA Solis Num: [id number] Spec Type: Surgical Subm Dr: Shahriar Dhillon MD Tissues: A Femoral Head - Other than Fracture (L HIP) Procedures: HE Stain, Gross/Micro L3, Decal -------- Patient: Fredrick Stroud [id number] (Continued) -------- Specimen: Received: 07/02/21 (Continued) Signed (signature on file) Kaycee Curry MD 07/04/21 1625 -------- Specimen: Received: 07/02/21 Status: LORETTA Solis Num: [id number] Spec Type: Surgical Subm Dr: Shahriar Dhillon MD Tissues: A Femoral Head - Other than Fracture (L HIP) Procedures: HE Stain, Gross/Micro L3, Decal -------- Patient: Fredrick Stroud [id number] (Continued) -------- Specimen: [id number] Received: 07/02/21 (Continued) Microscopic Description One glass slide with H E stained material has been examined. The microscopic findings support the above pathologic diagnosis. CPT Codes 98284, 19024 -------- -------- Specimen: [id number] Received: 07/02/21 Status: LORETTA Solis Num: [id number] Spec Type: Surgical Subm Dr: Shahriar Dhillon MD Tissues: A Femoral Head - Other than Fracture (L HIP) Procedures: HE Stain, Gross/Micro L3, Decal -------- Patient: Fredrick Stroud [id number] (Continued) -------- Signed (signature on file) Kaycee Curry MD 07/04/21 1625 [facility] XR hip LT 1Von 07-02-2021 XR hip LT 1V [place] [address] XRay Report Signed Patient: Fredrick Stroud MR#: [id number] 427 : 1950 Acct:[id number] Age/Sex: 70 / M ADM Date: 07/02/21 Loc: [place] Room: Type: [facility] Attending Dr: Shahriar Dhillon II, [...] Stevenson Jr, DO 07/02/21922 Signed By: 07/02/21925 [facility] XR low pelvis w/LT x-table h ipon 07-02-2021 XR low pelvis w/LT x-table hip [facility] [place] [address] XRay Report Signed Patient: Fredrick Stroud MR#: [id number] 427 : 1950 Acct:[id number] Age/Sex: 70 / M ADM Date: 07/02/21 Loc: [place] Room: Type: 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 This test has not been FDA cleared [...] is terminated or revoked sooner. PERFORMED BY: [place] [address] PATHOLOGIST DRY CHAIN OFFBEARER EYAD HOWARD M.D. Performed By: #### C BC, CMP, HS TROP, BNP #### [place] [id number] [facility] Basic Metabolic Panelon 04-2 Calcium [Mass/Vol] 9.4 mg/dL Normal 8.2-10.2 [facility] Comment on above: Result Comment: PERF ORMED BY: [place] [address] PATHOLOGIST DRY CHAIN OFFBEARER EYAD HOWARD M.D. Performed By: #### C OVID-19 GERTRUDE, SOFIANEG #### [place] [id number] [facility] Chloride [Moles/Vol] 103 mmol/L Normal 95-114 [facility] Comment on above: Performed By: #### C OVID-19 GERTRUDE, SOFIANEG #### [place] [id number] [place] CO2 [Moles/Vol] 26.4 mmol/L Normal 22.0-30.0 [facility] Comment on above: Performed By: #### C OVID-19 GERTRUDE SOFIANEG #### [facility] [address] Creatinine [Mass/Vol] 0.89 mg/dL Normal 0.64-1.27 [facility] Comment on above: Performed By: #### C OVID-19 GERTRUDE, SOFIANEG #### [facility] [address] Estimated GFR ( Jessica > 60 Normal [facility] Comment on above: Result Comment: GFR estimated reference range: According to KDOQI guidelines, <60 ml/min/1.73m2 is sufficient to diagnose a patient with chronic kidney disease. Performed By: #### C OVID-19 GERTRUDE SOFIANEG #### [facility] [address] [place] [address] [place] Estimated GFR (Non- Am > 60 [facility] Comment on above: Performed By: #### C OVID-19 GERTRUDE, SOFIANEG #### [facility] [address] Glucose [Mass/Vol] 101 mg/dL High 70-100 [facility] Comment on above: Result Comment: [place] Glucose Reference Range is dependent on time and content of last meal. Glucose of more than 200 mg/dL in a nonstressed, ambulatory subject supports the diagnosis of Diabetes Mellitus. ADA recommended reference range Performed By: #### C OVID-19 GERTRUDE SOFIANEG #### [facility] [address] [place] [address] [place] Potassium [Moles/Vol] 4.4 mmol/L Normal 3.5-5.1 [facility] Comment on above: Performed By: #### C OVID-19 GERTRUDE, SOFIANEG #### [facility] [address] [place] [address] [place] Sodium [Moles/Vol] 139 mmol/L Normal 136-146 [facility] Comment on above: Performed By: #### C OVID-19 GERTRUDE, SOFIANEG #### [facility] [address] Urea nitrogen [Mass/Vol] 23 mg/dL Normal 9-23 [facility] Comment on above: Performed By: #### C OVID-19 GERTRUDE, SOFIANEG #### [facility] [address] Complete Blood Count Auto Di ffon 06-18-2021 Basophils (Bld) [#/Vol] 0.0 10*3/uL Normal 0.0-0.2 [facility] Comment on above: Result Comment: PERF ORMED BY: [place] [address] PATHOLOGIST DRY CHAIN OFFBEARER EYAD HOWARD M.D. Performed By: #### C OVID-19 GERTRUDE, SOFIANEG #### [address] Basophils/100 WBC (Bld) 0.9 % Normal . [facility] Comment on above: Performed By: #### C OVID-19 GERTRUDE, SOFIANEG #### [facility] [address] [place] [address] [place] Eosinophils (Bld) [#/Vol] 0.1 10*3/uL Normal 0.0-0.45 [facility] Comment on above: Performed By: #### C OVID-19 GERTRUDE, SOFIANEG #### [address] Eosinophils/100 WBC (Bld) 1.4 % Normal . [facility] Comment on above: Performed By: #### C OVID-19 GERTRUDE, SOFIANEG #### [facility] [address] Erythrocyte distribution width (RBC) [Ratio] 14.0 % Normal 12.0-14.8 [facility] Comment on above: Performed By: #### C OVID-19 GERTRUDE, SOFIANEG #### [facility] [address] [place] [address] Hematocrit (Bld) [Volume fraction] 41.8 % Normal 38.8-50.0 [facility] Comment on above: Performed By: #### C OVID-19 GERTRUDE, SOFIANEG #### [facility] [address] [place] [address] Hemoglobin (Bld) [Mass/Vol] 14.2 g/dL Normal 13.0-17.0 [facility] Comment on above: Performed By: #### C OVID-19 GERTRUDE, SOFIANEG #### [address] Lymphocytes (Bld) [#/Vol] 1.1 10*3/uL Normal 1.00-4.8 [facility] Comment on above: Performed By: #### C OVID-19 GERTRUDE, SOFIANEG #### [address] Lymphocytes/100 WBC (Bld) 22.7 % Normal . [facility] Comment on above: Performed By: #### C OVID-19 GERTRUDE, SOFIANEG #### [address] MCH (RBC) [Entitic mass] 30.4 pg Normal 27.5-35.2 [facility] Comment on above: Performed By: #### C OVID-19 GERTRUDE, SOFIANEG #### [address] MCV (RBC) [Entitic vol] 89.7 fL Normal 83.5-101 [facility] Comment on above: Performed By: #### C OVID-19 GERTRUDE, SOFIANEG #### [facility] [address] [place] [address] Mean Corpuscular HGB Conc 33.9 g/dL Normal 32.5-35.6 [facility] Comment on above: Performed By: #### C OVID-19 GERTRUDE, SOFIANEG #### [facility] [address] [place] [address] [place] Monocytes (Bld) [#/Vol] 0.5 10*3/uL Normal 0.0-0.8 [facility] Comment on above: Performed By: #### C OVID-19 GERTRUDE, SOFIANEG #### [facility] [address] [place] [address] [place] Monocytes/100 WBC (Bld) 11.2 % Normal . [facility] Comment on above: Performed By: #### C OVID-19 GERTRUDE, SOFIANEG #### [facility] [address] Neutrophils (Bld) [#/Vol] 3.1 10*3/uL Normal 1.8-7.7 [facility] Comment on above: Performed By: #### C OVID-19 GERTRUDE, SOFIANEG #### [address] Neutrophils/100 WBC (Bld) 63.8 % Normal . [facility] Comment on above: Performed By: #### C OVID-19 GERTRUDE, SOFIANEG #### [facility] [address] [place] [address] [place] Nucleated RBC/100 WBC (Bld) [Ratio] 0.1 % Normal 0-0.5 [facility] Comment on above: Performed By: #### C OVID-19 GERTRUDE, SOFIANEG #### [address] Platelet mean volume (Bld) [Entitic vol] 8.2 fL Normal 6.6-10.1 [facility] Comment on above: Performed By: #### C OVID-19 GERTRUDE, SOFIANEG #### [facility] [address] [place] [address] [place] Platelets (Bld) [#/Vol] 243 10*3/uL Normal 150-450 [facility] Comment on above: Performed By: #### C OVID-19 GERTRUDE, SOFIANEG #### [place] [address] [place] RBC (Bld) [#/Vol] 4.67 10*6/uL Normal 3.90-5.[address] [facility] Comment on above: Performed By: #### C OVID-19 GERTRUDE, SOFIANEG #### [address] [place] [address] [place] WBC (Bld) [#/Vol] 4.8 10*3/uL Normal 4.5-11.0 [facility] Comment on above: Performed By: #### C OVID-19 WOLFGANG LOREDO #### [address] ECG 12 lead ECGon 06-18-2021 ECG 12 lead ECG [facility] Main [place] [address] [place] [address] Electrocardiograph Report Signed Patient: Fredrick Stroud MR#: [id number] 427 : 1950 Acct:[id number] Age/Sex: 70 / M ADM Date: 06/18/21 Loc: Room: Type: [facility] Attending Dr: Shahriar Dhillon II, MD [...] Wisam Torre MD 0 06/19/21 1006 Normal [facility] Fructosamineon 06-18-2021 Fructosamine 217 umol/L Normal 0-285 [facility] Comment on above: Result Comment: Publ ished reference interval for apparently healthy subjects between age 20 and 60 is 205 - 285 umol/L and in a poorly controlled diabetic population is 228 - 563 umol/L with a mean of 396 umol/L. Performed at: [address], [place], [place] [id number] Roping Tender: Benton Caro PhD, Phone: [phone] PERFORMED BY: [place] [address] PATHOLOGIST DRY CHAIN OFFBEARER EYAD HOWARD M.D. Performed By: #### C OVID-19 GRETRUDE, SOFIANEG #### [facility] [address] [place] [address] [place] PST Type and Screenon 2021 ABO and Rh group Nom (Bld) Blood group O Rh(D) positive Normal [facility] Comment on above: Order Comment: Date of Surgery: [id number] Result Comment: PERF ORMED BY: [place] [address] PATHOLOGIST DRY CHAIN OFFBEARER EYAD HOWARD M.D. Urinalysison 06-18-2021 Appearance (U) Clear Normal Clear [facility] Comment on above: Order Comment: Name Collection Type:: Clean-Voided Midstream Performed By: #### C BC, CMP, HS TROP, BNP #### [facility] [address] [place] [address] [place] Bilirubin,Urine Negative Normal Negative [facility] Comment on above: Order Comment: Name Collection Type:: Clean-Voided Midstream Performed By: #### C BC, CMP, HS TROP, BNP #### [facility] [address] [place] [address] [place] Color (U) Yellow Normal Yellow [facility] Comment on above: Order Comment: Name Collection Type:: Clean-Voided Midstream Performed By: #### C BC, CMP, HS TROP, BNP #### [facility] [address] [place] [address] [place] Glucose Ql (U) Normal Normal Normal [facility] Comment on above: Order Comment: Name Collection Type:: Clean-Voided Midstream Performed By: #### C BC, CMP, HS TROP, BNP #### [facility] [address] [place] [address] [place] Ketones Ql (U) Negative Normal Negative [facility] Comment on above: Order Comment: Name Collection Type:: Clean-Voided Midstream Performed By: #### C BC, CMP, HS TROP, BNP #### [address] Leukocyte esterase Test strip Ql (U) Negative Normal Negative [facility] Comment on above: Order Comment: Name Collection Type:: Clean-Voided Midstream Performed By: #### C BC, CMP, HS TROP, BNP #### [address] Nitrite,Urine Negative Normal Negative [facility] Comment on above: Order Comment: Name Collection Type:: Clean-Voided Midstream Performed By: #### C BC, CMP, HS TROP, BNP #### [address] Occult Blood,Urine Negative Normal Negative [facility] Comment on above: Order Comment: Name Collection Type:: Clean-Voided Midstream Result Comment: PERF ORMED BY: [place] [address] PATHOLOGIST DRY CHAIN OFFBEARER EYAD HOWARD M.D. Performed By: #### C BC, CMP, HS TROP, BNP #### [address] pH (U) 7.5 [pH] Normal 5.0-9.0 [facility] Comment on above: Order Comment: Name Collection Type:: Clean-Voided Midstream Performed By: #### C BC, CMP, HS TROP, BNP #### [address] Protein,Urine Negative Normal Negative [facility] Comment on above: Order Comment: Name Collection Type:: Clean-Voided Midstream Performed By: #### C BC, CMP, HS TROP, BNP #### [address] Specificy [place],Urine 1.023 Normal 1.001-1.030 [facility] Comment on above: Order Comment: Name Collection Type:: Clean-Voided Midstream Performed By: #### C BC, CMP, HS TROP, BNP #### [facility] [address] [place] [address] [place] Urobilinogen,Urine Normal Normal Normal [facility] Comment on above: Order Comment: Name Collection Type:: Clean-Voided Midstream Performed By: #### C BC, CMP, HS TROP, BNP #### [facility] [address] [place] [address] [place] Urinalysis - AUTOMATEDon Appearance (U) CLEAR [employer] Other Bilirubin Ql (U) Negative [employer] Other Color (U) YELLOW [employer] Other Glucose Ql (U) Negative [employer] Other Hemoglobin Ql (U) Negative [employer] Other Ketones Ql (U) Negative [employer] Other Leukocyte esterase Test strip Ql (U) Negative [employer] Other Nitrite Ql (U) Negative [employer] Other pH (U) 6.0 [pH] [employer] Other Protein Ql (U) Negative [employer] Other Specific gravity (U) [Rel density] 1.010 [employer] Other Urobilinogen (U) [Mass/Vol] 0.2 mg/dL [employer] Other Urinalysis - AUTOMATED [employer] Other Vital Signs Date Time Vital Sign Value Performing Clinician Facility 02-25-2023 13:00-0500 Body temperature 98.2 [degF] Vivian Espinoza MD Work Phone: [facility] 02-25-2023 13:00-0500 Diastolic blood pressure 81 mm[Hg] Vivian Espinoza MD Work Phone: [facility] 02-25-2023 13:00-0500 Heart rate 79 /min Vivian Espinoza MD Work Phone: [facility] 02-25-2023 13:00-0500 Respiratory rate 18 /min Vivian Espinoza MD Work Phone: [facility] 02-25-2023 13:00-0500 SaO2% (BldA) [Mass fraction] 97 % Vivian Espinoza MD Work Phone: [facility] 02-25-2023 13:00-0500 Systolic blood pressure 125 mm[Hg] Vivian Espinoza MD Work Phone: [facility] 02-16-2023 22:54-0500 SaO2% (BldA) [Mass fraction] 96.1 % Vivian Espinoza MD Work Phone: [facility] 02-16-2023 03:00-0500 Body height 167.6 cm Vivian Espinoza MD Work Phone: [facility] 02-16-2023 03:00-0500 Body mass index (BMI) [Ratio] 42.52 kg/m2 Vivian Espinoza MD Work Phone: [facility] 02-16-2023 03:00-0500 Body weight 119.5 kg Vivian Espinoza MD Work Phone: [facility] 02-15-2023 20:06-0500 Body temperature 97.52 [degF] Justice Pretty [facility] 02-15-2023 20:06-0500 Diastolic blood pressure 63 mm[Hg] Justice Pretty [facility] 02-15-2023 20:06-0500 Heart rate 70 /min Justice Pretty [facility] 02-15-2023 20:06-0500 Mean blood pressure 76 mm[Hg] Justice Pretty [facility] 02-15-2023 20:06-0500 Respiratory rate 18 /min Justice Pretty [facility] 02-15-2023 20:06-0500 SaO2% (BldA) [Mass fraction] 94 % Justice Sukhwinder [facility] 02-15-2023 20:06-0500 Systolic blood pressure 101 mm[Hg] Justice Sukhwinder [facility] 02-15-2023 20:00-0500 Diastolic blood pressure 74 mm[Hg] Justice Sukhwinder [facility] 02-15-2023 20:00-0500 Heart rate 63 /min Justice Sukhwinder [facility] 02-15-2023 20:00-0500 Hourly Rounding Justice Cuetoe [facility] 02-15-2023 20:00-0500 Promise to Return Justice Sukhwinder [facility] 02-15-2023 20:00-0500 SaO2% (BldA) [Mass fraction] 100 % Justice Sukhwinder [facility] 02-15-2023 20:00-0500 Systolic blood pressure 112 mm[Hg] Justice Sukhwinder [facility] 02-15-2023 19:57-0500 Diastolic blood pressure 78 mm[Hg] Justice Sukhwinder [facility] 02-15-2023 19:57-0500 Heart rate 101 /min Justice Sukhwinder [facility] 02-15-2023 19:57-0500 Mean blood pressure 90 mm[Hg] Justice Sukhwinder [facility] 02-15-2023 19:57-0500 Respiratory rate 14 /min Justice Sukhwinder [facility] 02-15-2023 19:57-0500 SaO2% (BldA) [Mass fraction] 98 % Justice Sukhwinder [facility] 02-15-2023 19:57-0500 Systolic blood pressure 113 mm[Hg] Justice Sukhwinder [facility] 02-15-2023 19:47-0500 Heart rate 85 /min Justice Sukhwinder [facility] 02-15-2023 19:47-0500 Mean blood pressure 49 mm[Hg] Justice Sukhwinder [facility] 02-15-2023 19:47-0500 Respiratory rate 14 /min Justice Sukhwinder [facility] 02-15-2023 19:34-0500 Blood Pressure Location Justice Sukhwinder [facility] 02-15-2023 19:34-0500 Body temperature 97.52 [degF] Justice Sukhwinder [facility] 02-15-2023 19:34-0500 Heart rate 68 /min Justice Sukhwinder [facility] 02-15-2023 19:19-0500 Heart rate 67 /min Justice Sukhwinder [facility] 02-15-2023 19:00-0500 Hourly Rounding Justice Cuetoe [facility] 02-15-2023 19:00-0500 Promise to Return Justice Sukhwinder [facility] 02-15-2023 18:45-0500 Body temperature 97.52 [degF] Justice Sukhwinder [facility] 02-15-2023 18:17-0500 Body temperature 97.52 [degF] Justice Sukhwinder [facility] 02-15-2023 18:00-0500 Hourly Rounding Justice Sukhwinder [facility] 02-15-2023 18:00-0500 Promise to Return Justice Pretty [facility] 02-15-2023 16:28-0500 Body temperature 97.88 [degF] Justice Pretty [facility] 08-30-2022 08:53-0400 Body height 167.64 cm Karina Melgar Work Phone: formerly [facility] DO Work Phone: 08-30-2022 08:53-0400 Body mass index (BMI) [Ratio] 38.74 kg/m2 Karina Melgar Work Phone: formerly [facility] DO Work Phone: 08-30-2022 08:53-0400 Body surface area Derived from formula 2.16 m2 Karina Melgar Work Phone: formerly [facility] DO Work Phone: 08-30-2022 08:53-0400 Body weight 108.86 kg Karina Melgar Work Phone: formerly [facility] DO Work Phone: 08-30-2022 08:53-0400 Diastolic blood pressure 62 mm[Hg] Karina Melgar Work Phone: formerly [facility] DO Work Phone: 08-30-2022 08:53-0400 Heart rate 55 /min Karina Melgar Work Phone: formerly [facility] DO Work Phone: 08-30-2022 08:53-0400 Systolic blood pressure 128 mm[Hg] Karina Melgar Work Phone: formerly [facility] DO Work Phone: 08-13-2022 13:21-0400 Body height 167.64 cm Karina Melgar Work Phone: formerly [facility] DO Work Phone: 08-13-2022 13:21-0400 Body mass index (BMI) [Ratio] 39.87 kg/m2 Karina Lisa Ramón Work Phone: formerly [facility] DO Work Phone: 08-13-2022 13:21-0400 Body surface area Derived from formula 2.19 m2 Karina Lisa Ramón Work Phone: formerly [facility] DO Work Phone: 08-13-2022 13:21-0400 Body weight 112.04 kg Karina Guardadoon Work Phone: formerly [facility] DO Work Phone: 08-13-2022 13:21-0400 Diastolic blood pressure 70 mm[Hg] Karina Lisa Ramón Work Phone: formerly [facility] DO Work Phone: 08-13-2022 13:21-0400 Heart rate 70 /min Karina Lisa Ramón Work Phone: formerly [facility] DO Work Phone: 08-13-2022 13:21-0400 Systolic blood pressure 136 mm[Hg] Karina Lisa Ramón Work Phone: formerly [facility] DO Work Phone: 07-05-2022 09:08-0400 Body height 167.64 cm Karina Lisa Ramón Work Phone: formerly [facility] [address] DO Work Phone: 07-05-2022 09:08-0400 Body mass index (BMI) [Ratio] 39.54 kg/m2 Karina Lisa Ramón Work Phone: formerly [facility] [address] DO Work Phone: 07-05-2022 09:08-0400 Body surface area Derived from formula 2.18 m2 Karina Lisa Ramón Work Phone: formerly [facility] [address] DO Work Phone: 07-05-2022 09:08-0400 Body weight 111.13 kg Karina Lisa Ramón Work Phone: formerly [facility] [address] DO Work Phone: 07-05-2022 09:08-0400 Diastolic blood pressure 70 mm[Hg] Karina Lisa Ramón Work Phone: formerly [facility] [address] DO Work Phone: 07-05-2022 09:08-0400 Heart rate 72 /min Karina Lisa Ramón Work Phone: formerly [facility] [address] DO Work Phone: 07-05-2022 09:08-0400 Systolic blood pressure 138 mm[Hg] Karina Lisa Ramón Work Phone: formerly [facility] [address] DO Work Phone: 06-20-2022 16:24-0400 Body height 167.64 cm Karina Lisa Ramón Work Phone: formerly [facility] DO Work Phone: 06-20-2022 16:24-0400 Body mass index (BMI) [Ratio] 40.03 kg/m2 Karina Lisa Ramón Work Phone: formerly [facility] DO Work Phone: 06-20-2022 16:24-0400 Body surface area Derived from formula 2.19 m2 Karina Guardadoon Work Phone: formerly [facility] DO Work Phone: 06-20-2022 16:24-0400 Body weight 112.49 kg Karina Guardadoon Work Phone: formerly [facility] DO Work Phone: 06-20-2022 16:24-0400 Diastolic blood pressure 102 mm[Hg] Karina Guardadoon Work Phone: formerly [facility] DO Work Phone: 06-20-2022 16:24-0400 Heart rate 76 /min Karina Lisa Ramón Work Phone: formerly [facility] DO Work Phone: 06-20-2022 16:24-0400 Systolic blood pressure 162 mm[Hg] Karina Lisa Ramón Work Phone: formerly [facility] DO Work Phone: 05-10-2022 14:46-0400 Body height 167.64 cm Karina Lisa Ramón Work Phone: formerly [facility] [address] [place] Work Phone: 05-10-2022 14:46-0400 Body mass index (BMI) [Ratio] 40.19 kg/m2 Karina Lisa Ramón Work Phone: formerly [facility] [place] Work Phone: 05-10-2022 14:46-0400 Body surface area Derived from formula 2.2 m2 Karina Lisa Ramón Work Phone: formerly [facility] [place] Work Phone: 05-10-2022 14:46-0400 Body weight 112.95 kg Karina Lisa Ramón Work Phone: formerly [facility] [place] Work Phone: 05-10-2022 14:46-0400 Diastolic blood pressure 80 mm[Hg] Karina Lisa Melgar Work Phone: formerly [facility] [place] Work Phone: 05-10-2022 14:46-0400 Heart rate 61 /min Karina Guardadoon Work Phone: formerly [facility] [place] Work Phone: 05-10-2022 14:46-0400 Systolic blood pressure 130 mm[Hg] Karina Guardadoon Work Phone: formerly [facility] [place] Work Phone: 05-02-2022 13:26-0500 Body height 167.64 cm Karina Lisa Melgar Work Phone: formerly [facility] [address] DO Work Phone: 05-02-2022 13:26-0500 Body mass index (BMI) [Ratio] 40.19 kg/m2 Karina Guardadoon Work Phone: formerly [facility] [address] DO Work Phone: 05-02-2022 13:26-0500 Body surface area Derived from formula 2.2 m2 Karina Guardadoon Work Phone: formerly [facility] [address] DO Work Phone: 05-02-2022 13:26-0500 Body weight 112.95 kg Karina Guardadoon Work Phone: formerly [facility] [facility] DO Work Phone: 05-02-2022 13:26-0500 Diastolic blood pressure 64 mm[Hg] Karina Guardadoon Work Phone: formerly [facility] [address] DO Work Phone: 05-02-2022 13:26-0500 Heart rate 62 /min Karina Guardadoon Work Phone: formerly [facility] [facility] DO Work Phone: 05-02-2022 13:26-0500 Systolic blood pressure 116 mm[Hg] Karina Guardadoon Work Phone: formerly [facility] [address] DO Work Phone: 04-29-2022 11:48-0500 Body height 167.64 cm Karina Lisa Ramón Work Phone: formerly [facility] [address] DO Work Phone: 04-29-2022 11:48-0500 Body mass index (BMI) [Ratio] 40.09 kg/m2 Karina Lisa Ramón Work Phone: formerly [facility] [address] DO Work Phone: 04-29-2022 11:48-0500 Body surface area Derived from formula 2.19 m2 Karina Lisa Ramón Work Phone: formerly [facility] [address] DO Work Phone: 04-29-2022 11:48-0500 Body weight 112.67 kg Karina Lisa Ramón Work Phone: formerly [facility] [address] DO Work Phone: 04-29-2022 11:48-0500 Diastolic blood pressure 80 mm[Hg] Karina Lisa Ramón Work Phone: formerly [facility] [address] DO Work Phone: 04-29-2022 11:48-0500 Heart rate 60 /min Karina Lisa Ramón Work Phone: formerly [facility] [address] DO Work Phone: 04-29-2022 11:48-0500 Systolic blood pressure 122 mm[Hg] Karina Guardadoon Work Phone: formerly [facility] [facility] DO Work Phone: 04-18-2022 14:45-0500 Body height 167.64 cm Karina Melgar Other [facility] [employer] Other 04-18-2022 14:45-0500 Body mass index (BMI) [Ratio] 39.54 kg/m2 Karina Melgar Other [facility] [employer] Other 04-18-2022 14:45-0500 Body weight 111.13 kg Karina Melgar Other [facility] [employer] Other 04-18-2022 14:45-0500 Diastolic blood pressure 76 mm[Hg] Karina Melgar Other [facility] [employer] Other 04-18-2022 14:45-0500 Systolic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
[2023-04-02 08:21] LABS: INR 3.77; Prothrombin Time 37.1 sec (9.0-11.6)
== END 2023-04-02 07:51 | disposition home or self-care (01) ==
LOC: LAB 07:50
PROVIDERS: PCP Family Medicine; Visit Provider Nurse Practitioner Family
DX: Z51.81 Encounter for therapeutic drug level monitoring (principal)
CPT/HCPCS: 36415; 85610

== ENCOUNTER 2023-04-04 02:12 | Outpatient (REF) | payer MEDICARE, SELFPAY ==
--- OUTSIDE RECORDS SUMMARY | 2023-04-04 02:17 | XMS_ITS | CCD ---
Author Name Unknown Address [address] [place] [address] Organization [facility] Care Team Providers Care Newspaper Correspondent Name Role Phone No, Physician Primary Care Provider UnavailShahriar Frederick II Unavailable Shahriar Dhillon II Unavailable Karina Melgar Unavailable Lynn Gurrola Unavailable MD Karina Melgar Primary Care Provider DO Yo Blood Emergency Provider LISSETH Link Attending Provider Sejal Link Unavailable Karina Melgar Unavailable [phone] Unavailable Unavailable Unavailable Unavailable Karina Melgar Primary [...] Consulting Unavailable Madison Steel Consulting Unavailable Cee Carrilol Consulting Unavailable Ruba Mishra Consulting Unavailable Nunu [...] Referring Unavailable HILLARY, ISACC Admitting Unavailable SUKHWINDER, UJSTICE Referring Unavailable PROVIDER, UNKNOWN Attending Unavailable HILLARYLUKASZY [...] Medication Allergies] Propensity to adverse reactions (disorder) [facility] Repository Medications Current Medications Medication Drug Class(es) Dates Sig (Normalized) Sig (Original) acetaminophen 325 mg / HYDROcodone bitartrate 5 mg oral tablet (2 sources) Opioid Agonist Start: 07-28-2020 [place] 325 mg-5 mg oral tablet 1 tab(s), [...] Active docusate sodium 50 mg / sennosides, prison 8.6 mg oral tablet (3 sources) Start: [...] MG Oral Tablet Take as directed by [facility] coumadin clinic Quantity: 0 Refills: 0 Ordered: [...] Start: 06-14-2021 take 2 tablets by [facility] every eight hours for pain Acetaminophen 500 [...] administer with spacer take 2 puff(s) by [facility] every four hours as needed ALBUTEROL INHALATION Inhale 2 Puffs by mouth every 4 hours as needed for Other (sob). 0 Active take 2 puff(s) by [facility] every four hours as needed ALBUTEROL [...] 1 capsule by mouth twice daily Iron [id number]-[id number]-Pb-B-Gglvl Acid (Ferocon) 110-0.5 mg Capsule Discontinued 1 [...] 5:18pm Start: 06-14-2021 [facility] Aspirin 81 MG 1 tablet [...] Discontinued Start: 06-14-2021 take 1 tablet by [facility] three times daily as needed for nausea Ondansetron HCl 8 MG 1 tablet as needed for nausea Orally TID for 10 days Med to Bed Upon Discharge DOS: 07/02/2021 May, Active polyethylene glycol 3350 95254 mg powder for oral solution (4 sources) [...] Discontinued Start: 07-05-2022 take 1 capsule by [facility] every twelve hours propafenone 425 mg [...] Active Start: 04-29-2022 take 1 capsule by [facility] every twelve hours Propafenone HCl ER 225 MG Oral Capsule Extended Release 12 Hour TAKE 1 CAPSULE EVERY 12 HOURS. Quantity: 180 Refills: 0 Ordered: 29-Apr-2022 Christopher Porter MD Start : 29-Apr-2022 Active new start Prostate Support TABS (10 sources) Prostate Support TABS TAKE 1 TABLET DAILY DIRECTED. Quantity: 0 Refills: 0 Ordered: 21-Mar-2022 DO Active Saw-Vit E-Sod Usi-Zzj-Pjlf-Pyg (Prostate Health) 160-100-100 mg-unit-mcg Tablet (2 sources) Start: End: 3 take 1 capsule by mouth once daily Saw-Vit E-Sod Vil-Ics-Ekfg-Pyg (Prostate Health) 160-100-100 mg-unit-mcg Tablet Discontinued 1 CAP PO Daily July 27, 2017 11:00pm March 11, 2022 5:18pm sennosides, prison 8.6 mg oral tablet (1 source) Start: [...] on Fri02/17/23 at 1600, Until Discontinued Vit C-S.Erzise-Vxesnx-Azbtx Sd (Tart Bhagat) 55-821-94-75-20 mg Capsule (2 sources) Start: 07-28-2017 End: 08-09-2019 Vit C-S.Dqguyb-Wkjuix-Ynyvg Sd (Tart Bhagat) 86-653-95-75-20 mg Capsule Discontinued 1 CAP PO Twice [...] source) Long-term current use of anticoagulant; Translations: [shelter (current) use of anticoagulants] Episodic Other aftercare [...] Episodic Other aftercare (2 sources) 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 3 mg/dL [facility] Chloride [Moles/Vol] 102 mmol/L 98 - 107 mmol/L [facility] CO2 [Moles/Vol] 30 mmol/L 21 - 31 mmol/L [facility] Creatinine [Mass/Vol] 0.64 mg/dL Low 0.70 - 1.30 mg/dL [facility] GFR/1.73 sq M.predicted CKD-EPI (S/P/Bld) [Vol rate/Area] 99 - PINF [facility] Glucose [Mass/Vol] 129 mg/dL High 74 - 109 mg/dL [facility] Interpretation and review of laboratory results [...] 8.9 g/dL Low 13.9 - 16.3 g/dL [facility] Interpretation and review of laboratory [...] [#/Vol] 376 10*3/uL 150 - 400 K/uL [facility] RBC (Bld) [#/Vol] 2.90 10*6/uL Low [facility] WBC (Bld) [#/Vol] 8.5 10*3/uL 4.5 - 11.5 K/uL [facility] MAGNESI[facility] 02-25-2023 Magnesium [Mass/Vol] 1.9 mg/dL 1.6 - 2.8 mg/dL [facility] No Panel Informationon 02-25 Interpretation and review of laboratory results [facility] PHOSPHORUS[facility] 02-25-2023 Phosphate [Mass/Vol] 2.9 mg/dL 2.3 - 4.2 mg/dL [facility] PROTHROMBIN TIME AND INRon 0 02-25-2023 INR Coag (PPP) [Relative time] 1.13 {INR} High 0.90 - 1.10 [facility] Interpretation and review of laboratory results Abnormal [facility] PT Coag (PPP) [Time] 12.6 s [facility] ANTI FXA-LMW HEPARINon 02-24 LMW Heparin Chromogenic method Qn (PPP) 0.32 IU/mL [facility] Basic metabolic 2000 panelon 02-24-2023 Anion gap [Moles/Vol] 9 mmol/L Low 10 - 20 Met [facility] Calcium [Mass/Vol] 7.7 mg/dL Low 8.6 - 10. 3 mg/dL [facility] Chloride [Moles/Vol] 101 mmol/L 98 - 107 mmol/L [facility] CO2 [Moles/Vol] 30 mmol/L 21 - 31 mmol/L [facility] Creatinine [Mass/Vol] 0.60 mg/dL Low 0.70 - 1.30 mg/dL [facility] GFR/1.73 sq M.predicted CKD-EPI (S/P/Bld) [Vol rate/Area] 101 - PINF [facility] Glucose [Mass/Vol] 98 mg/dL 74 - 109 mg/dL [facility] Interpretation and review of laboratory results Abnormal [facility] Potassium [Moles/Vol] 4.0 mmol/L 3.5 - 5.0 mmol/L [facility] Sodium [Moles/Vol] 136 mmol/L 136 - 145 mmol/L [facility] Urea nitrogen [Mass/Vol] 19 mg/dL 7 - 25 mg/dL [facility] CBC panel Auto (Bld)on 02-24 Erythrocyte distribution width (RBC) [Ratio] 15.4 % High 11.5 - 14.5 % [facility] Hematocrit (Bld) [Volume fraction] 25.2 % Low 41.0 - 53.0 % [facility] Hemoglobin (Bld) [Mass/Vol] 8.3 g/dL Low 13.9 - 16.3 g/dL [facility] Interpretation and review of laboratory results Abnormal [facility] MCH (RBC) [Entitic mass] 30.7 pg 26.0 - 34.0 pg [facility] MCHC (RBC) [Mass/Vol] 33.1 g/dL 32.0 - 35.9 g/dL [facility] MCV (RBC) [Entitic vol] 93 fL 80 - 100 fL [facility] Platelet mean volume (Bld) [Entitic vol] 7.6 fL 7.5 - 11.2 fL [facility] Platelets (Bld) [#/Vol] 320 10*3/uL 150 - 400 K/uL [facility] RBC (Bld) [#/Vol] 2.72 10*6/uL Low [facility] WBC (Bld) [#/Vol] 7.6 10*3/uL 4.5 - 11.5 K/uL [facility] MAGNESIUM[facility] 02-24-2023 Magnesium [Mass/Vol] 1.9 mg/dL 1.6 - 2.8 mg/dL [facility] No Panel Informationon 02-24 Interpretation and review of laboratory results Normal [facility] PHOSPHORUSon 02-24-2023 Phosphate [Mass/Vol] 2.7 mg/dL 2.3 - 4.2 mg/dL [facility] Basic metabolic 2000 panelon 02-23-2023 Anion gap [Moles/Vol] 9 mmol/L Low 10 - 20 [facility] Calcium [Mass/Vol] 7.8 mg/dL Low 8.6 - 10. 3 mg/dL [facility] Chloride [Moles/Vol] 99 mmol/L 98 - 107 mmol/L [facility] CO2 [Moles/Vol] 32 mmol/L High 21 - 31 mmol/L [facility] Creatinine [Mass/Vol] 0.59 mg/dL Low 0.70 - 1.30 mg/dL [facility] GFR/1.73 sq M.predicted CKD-EPI (S/P/Bld) [Vol rate/Area] 102 - PINF [facility] Glucose [Mass/Vol] 88 mg/dL 74 - 109 mg/dL [facility] Interpretation and review of laboratory results Abnormal [facility] Potassium [Moles/Vol] 4.0 mmol/L 3.5 - 5.0 mmol/L [facility] Sodium [Moles/Vol] 136 mmol/L 136 - 145 mmol/L [facility] Urea nitrogen [Mass/Vol] 22 mg/dL 7 - 25 mg/dL [facility] CBC panel Auto (Bld)on 02-23 Erythrocyte distribution width (RBC) [Ratio] 15.3 % High 11.5 - 14.5 % [facility] Hematocrit (Bld) [Volume fraction] 26.6 % Low 41.0 - 53.0 % [facility] Hemoglobin (Bld) [Mass/Vol] 8.7 g/dL Low 13.9 - 16.3 g/dL [facility] Interpretation and review of laboratory results Abnormal [facility] MCH (RBC) [Entitic mass] 30.4 pg 26.0 - 34.0 pg [facility] MCHC (RBC) [Mass/Vol] 32.7 g/dL 32.0 - 35.9 g/dL [facility] MCV (RBC) [Entitic vol] 93 fL 80 - 100 fL [facility] Platelet mean volume (Bld) [Entitic vol] 8.7 fL 7.5 - 11.2 fL [facility] Platelets (Bld) [#/Vol] 285 10*3/uL 150 - 400 K/uL [facility] RBC (Bld) [#/Vol] 2.86 10*6/uL Low [facility] WBC (Bld) [#/Vol] 8.2 10*3/uL 4.5 - 11.5 K/uL [facility] MAGNESIUMon 02-23-2023 Magnesium [Mass/Vol] 2.0 mg/dL 1.6 - 2.8 mg/dL [facility] No Panel Informationon 02-23 Interpretation and review of laboratory results Normal [facility] PHOSPHORUSon 02-23-2023 Phosphate [Mass/Vol] 2.6 mg/dL 2.3 - 4.2 mg/dL [facility] ANTI FXA-LMW HEPARINon 02-22 ANTI FXA-LMW HEPARIN ASSAY 0.48 IU/mL Normal [facility] Comment on above: Order Comment: The r ecommended therapeutic range for treatment of thrombosis with Low Molecular Weight Heparin is 0.5 - 1.0 IU/mLThe recommended range for VTE prophylaxis with Low Molecular Weight Heparin is 0.2 - 0.4 IU/mL. Performed By: #### T S #### [facility] [address] [place], [address] LMW Heparin Chromogenic method Qn (PPP) 0.48 IU/mL [facility] BASIC METABOLIC PANELon 01-26 Anion gap [Moles/Vol] 7 mmol/L Low 10-20 [facility] Comment on above: Performed By: #### 8 [id number] #### NURSING GLUCOSE PROGRAM [address] [place], [address] Calcium [Mass/Vol] 7.7 mg/dL Low 8.6-10.3 [facility] Comment on above: Result Comment: Note updated reference ranges. Performed By: #### 8 2948 #### NURSING GLUCOSE PROGRAM [address] [place], [address] Chloride [Moles/Vol] 101 mmol/L Normal 98-107 [facility] Comment on above: Result Comment: Note updated reference ranges. Performed By: #### 8 2948 #### NURSING GLUCOSE PROGRAM [address] [place], [address] CO2 [Moles/Vol] 33 mmol/L High 21-31 The [facility] Comment on above: Result Comment: Note updated reference ranges. Performed By: #### 8 2948 #### NURSING GLUCOSE PROGRAM [address] [place], [address] Creatinine [Mass/Vol] 0.60 mg/dL Low 0.70-1.30 [facility] Comment on above: Result Comment: Note updated reference ranges. Performed By: #### 8 2948 #### NURSING GLUCOSE PROGRAM [address] [place], [address] ESTIMATED GFR (CKD-EPI) 101 mL/min/1.73sqm Normal >=60 [facility] Comment on above: Result Comment: 2020 [...] Inclusion of Race in Diagnosing Kidney Disease. [place] Journal of Kidney Diseases 202;79(2):268-88.e1. 2. N Engl J Med 1 Vol. 385 Issue 19 Pages [phone] Performed By: #### 8 2948 #### NURSING GLUCOSE PROGRAM [address] [place], [address] Glucose [Mass/Vol] 105 mg/dL Normal 74-109 The [employer] [facility] Comment on above: Performed By: #### 8 2948 #### NURSING GLUCOSE PROGRAM [address] [place], [address] Potassium [Moles/Vol] 3.6 mmol/L Normal 3.5-5.0 [facility] Comment on above: Result Comment: Note updated reference ranges. Note updated reference ranges. Performed By: #### 8 [id number] #### NURSING GLUCOSE PROGRAM [address] [place], [address] Sodium [Moles/Vol] 137 mmol/L Normal 136-145 [facility] [employer] [facility] Comment on above: Result Comment: Note updated reference ranges. Performed By: #### 8 2948 #### NURSING GLUCOSE PROGRAM [address] [place], [address] Urea nitrogen [Mass/Vol] 23 mg/dL Normal 7-25 [facility] Comment on above: Result Comment: Note updated reference ranges. Performed By: #### 8 2948 #### NURSING GLUCOSE PROGRAM [address] [place], [address] Basic metabolic 2000 panelon 02-22-2023 Anion gap [...] [Mass/Vol] 105 mg/dL 74 - 109 mg/dL [facility] Interpretation and review of laboratory results Abnormal [facility] Potassium [Moles/Vol] 3.6 mmol/L 3.5 - 5.0 mmol/L [facility] Sodium [Moles/Vol] 137 mmol/L 136 - 145 mmol/L [facility] Urea nitrogen [Mass/Vol] 23 mg/dL 7 - 25 mg/dL [facility] CBC panel Auto (Bld)on 02-22 Erythrocyte distribution width (RBC) [Ratio] 15.4 % High 11.5 - 14.5 % [facility] Hematocrit (Bld) [Volume fraction] 23.9 % Low 41.0 - 53.0 % [facility] Hemoglobin (Bld) [Mass/Vol] 8.0 g/dL Low 13.9 - 16.3 g/dL [facility] Interpretation and review of laboratory results Abnormal [facility] MCH (RBC) [Entitic mass] 30.7 pg 26.0 - 34.0 pg [facility] MCHC (RBC) [Mass/Vol] 33.3 g/dL 32.0 - 35.9 g/dL [facility] MCV (RBC) [Entitic vol] 92 fL 80 - 100 fL [facility] Platelet mean volume (Bld) [Entitic vol] 8.7 fL 7.5 - 11.2 fL [facility] Platelets (Bld) [#/Vol] 227 10*3/uL 150 - 400 K/uL [facility] RBC (Bld) [#/Vol] 2.60 10*6/uL Low [facility] WBC (Bld) [#/Vol] 7.6 10*3/uL 4.5 - 11.5 K/uL [facility] COMPLETE BLOOD COUNTon 02-22 Erythrocyte distribution width (RBC) [Ratio] 15.4 % High 11.5-14.5 The [facility] Comment on above: Performed By: #### T S #### S [facility] [address] [place], [place], Hematocrit (Bld) [Volume fraction] 23.9 % Low 41.0-53.0 [facility] Comment on above: Performed By: #### T S #### S [facility] LAB[facility] [address] [place], [place], Hemoglobin (Bld) [Mass/Vol] 8.0 g/dL Low 13.9-16.3 [facility] Comment on above: Performed By: #### T S #### [facility] [address] [place] [address], MCH (RBC) [Entitic mass] 30.7 pg Normal 26.0-34.0 [facility] Comment on above: Performed By: #### T S #### [facility] [address] [place] [address], MCHC (RBC) [Mass/Vol] 33.3 g/dL Normal 32.0-35.9 [facility] Comment on above: Performed By: #### T S #### [facility] [address] [place] [address], MCV (RBC) [Entitic vol] 92 fL Normal 80-100 [facility] Comment on above: Performed By: #### T S #### [facility] [address] [place] [address], Platelet mean volume (Bld) [Entitic vol] 8.7 fL Normal 7.5-11.2 [facility] Comment on above: Performed By: #### T S #### S [facility] [address] [place], [place], Platelets (Bld) [#/Vol] 227 10*3/uL Normal 150-400 [facility] Comment on above: Performed By: #### T S #### S [facility] LAB[facility] [address] [place], [place], RBC (Bld) [#/Vol] 2.60 10*6/uL Low 4.50-5.90 [facility] Comment on above: Performed By: #### T S #### [facility] [address] [place], [place], WBC (Bld) [#/Vol] 7.6 10*3/uL Normal 4.5-11.5 [facility] [employer] [facility] Comment on above: Performed By: #### T S #### [facility] [address], [place], Care Plan Noteon 02-22-2023 Galvanizing [employer]ner Authentication Interface Message Text Problem: Routine Care: [...] and once discontinued Outcome: Progressing Normal [facility] [employer] [facility] MAGNESIUMon 02-22-2023 Magnesium [Mass/Vol] 2.0 mg/dL Normal 1.6-2.8 [facility] Comment on above: Performed By: #### 8 2948 #### NURSING GLUCOSE PROGRAM [address] [place], [address] Magnesium [Mass/Vol] 2.0 mg/dL 1.6 - 2.8 mg/dL [facility] No Panel Informationon 02-22 Interpretation and review of laboratory results Normal [facility] PHOSPHORUSon 02-22-2023 Phosphate [Mass/Vol] 2.8 mg/dL Normal 2.3-4.2 [facility] Comment on above: Performed By: #### 8 2948 #### NURSING GLUCOSE PROGRAM [address] [place], [address] Phosphate [Mass/Vol] 2.8 mg/dL 2.3 - 4.2 mg/dL [facility] BASIC METABOLIC PANELon 01-25 Anion gap [Moles/Vol] 9 mmol/L Low 10-20 [facility] Comment on above: Performed By: #### 8 2948 #### NURSING GLUCOSE PROGRAM [address] [place], [address] Calcium [Mass/Vol] 7.5 mg/dL Low 8.6-10.3 [facility] Comment on above: Result Comment: Note updated reference ranges. Performed By: #### 8 2948 #### NURSING GLUCOSE PROGRAM [address] [place], [address] Chloride [Moles/Vol] 100 mmol/L Normal 98-107 [facility] Comment on above: Result Comment: Note updated reference ranges. Performed By: #### 8 2948 #### NURSING GLUCOSE PROGRAM [address] [place], [address] CO2 [Moles/Vol] 33 mmol/L High 21-31 [facility] Comment on above: Result Comment: Note updated reference ranges. Performed By: #### 8 2948 #### NURSING GLUCOSE PROGRAM [address] [place], [address] Creatinine [Mass/Vol] 0.65 mg/dL Low 0.70-1.30 [facility] Comment on above: Result Comment: Note updated reference ranges. Performed By: #### 8 2948 #### NURSING GLUCOSE PROGRAM [address] [place], [address] ESTIMATED GFR (CKD-EPI) 99 mL/min/1.73sqm Normal >=60 [facility] Comment on above: Result Comment: 2020 [...] Inclusion of Race in Diagnosing Kidney Disease. [place] Journal of Kidney Diseases 2021;79(2):268-88.e1. 2. N Engl J Med 1 Vol. 385 Issue 19 Pages 5210-8515 Performed By: #### 8 2948 #### NURSING GLUCOSE PROGRAM [address] [place], [address] Glucose [Mass/Vol] 104 mg/dL Normal 74-109 [facility] Comment on above: Performed By: #### 8 2948 #### NURSING GLUCOSE PROGRAM [address] [place], [address] Potassium [Moles/Vol] 3.5 mmol/L Normal 3.5-5.0 [facility] [employer] [facility] Comment on above: Result Comment: Note updated reference ranges. Note updated reference ranges. Performed By: #### 8 2948 #### NURSING GLUCOSE PROGRAM [address] [place], [address] Sodium [Moles/Vol] 138 mmol/L Normal 136-145 [facility] Comment on above: Result Comment: Note updated reference ranges. Performed By: #### 8 2948 #### NURSING GLUCOSE PROGRAM [address] [place], [address] Urea nitrogen [Mass/Vol] 24 mg/dL Normal 7-25 [facility] Comment on above: Result Comment: Note updated reference ranges. Performed By: #### 8 2948 #### NURSING GLUCOSE PROGRAM [address] [place], [address] BLOOD CULTUREon 02-21-2023 Bacteria identified Cx Nom (Bld) No Growth [facility] Interpretation and review of laboratory results [facility] Basic metabolic 2000 panelon 02-21-2023 Anion gap [Moles/Vol] 9 mmol/L Low 10 - 20 [facility] Calcium [Mass/Vol] 7.5 mg/dL Low 8.6 - 10. 3 mg/dL [facility] Chloride [Moles/Vol] 100 mmol/L 98 - 107 mmol/L [facility] CO2 [Moles/Vol] 33 mmol/L High 21 - 31 mmol/L [facility] Creatinine [Mass/Vol] 0.65 mg/dL Low 0.70 - 1.30 mg/dL [facility] GFR/1.73 sq M.predicted CKD-EPI (S/P/Bld) [Vol rate/Area] 99 - PINF [facility] Glucose [Mass/Vol] 104 mg/dL 74 - 109 mg/dL [facility] Interpretation and review of laboratory results Abnormal [facility] Potassium [Moles/Vol] 3.5 mmol/L 3.5 - 5.0 mmol/L [facility] Sodium [Moles/Vol] 138 mmol/L 136 - 145 mmol/L [facility] Urea nitrogen [Mass/Vol] 24 mg/dL 7 - 25 mg/dL [facility] CBC panel Auto (Bld)on 02-21 Erythrocyte distribution width (RBC) [Ratio] 14.5 % 11.5 - 14.5 % [facility] Hematocrit (Bld) [Volume fraction] 21.8 % Low 41.0 - 53.0 % [facility] Hemoglobin (Bld) [Mass/Vol] 7.6 g/dL Low 13.9 - 16.3 g/dL [facility] Interpretation and review of laboratory results Abnormal [facility] MCH (RBC) [Entitic mass] 31.5 pg 26.0 - 34.0 pg [facility] MCHC (RBC) [Mass/Vol] 34.6 g/dL 32.0 - 35.9 g/dL [facility] MCV (RBC) [Entitic vol] 91 fL 80 - 100 fL [facility] Platelet mean volume (Bld) [Entitic vol] 8.3 fL 7.5 - 11.2 fL [facility] Platelets (Bld) [#/Vol] 199 10*3/uL 150 - 400 K/uL [facility] RBC (Bld) [#/Vol] 2.40 10*6/uL Low [facility] WBC (Bld) [#/Vol] 9.6 10*3/uL 4.5 - 11.5 K/uL [facility] COMPLETE BLOOD COUNTon 02-21 Erythrocyte distribution width (RBC) [Ratio] 14.5 % Normal 11.5-14.5 The [facility] Comment on above: Performed By: #### T S #### [facility] [address] [place] [address], Hematocrit (Bld) [Volume fraction] 21.8 % Low 41.0-53.0 [facility] Comment on above: Performed By: #### T S #### [facility] [address] [place] [address], Hemoglobin (Bld) [Mass/Vol] 7.6 g/dL Low 13.9-16.3 [facility] Comment on above: Performed By: #### T S #### [facility] [address] [place] [address], MCH (RBC) [Entitic mass] 31.5 pg Normal 26.0-34.0 [facility] Comment on above: Performed By: #### T S #### [facility] [address] [place] [address], MCHC (RBC) [Mass/Vol] 34.6 g/dL Normal 32.0-35.9 [facility] Comment on above: Performed By: #### T S #### [facility] [address] [place] [address], MCV (RBC) [Entitic vol] 91 fL Normal 80-100 [facility] Comment on above: Performed By: #### T S #### [facility] [address] [place] [address], Platelet mean volume (Bld) [Entitic vol] 8.3 fL Normal 7.5-11.2 [facility] Comment on above: Performed By: #### T S #### S PATHOLOGY LABORATORY [address] [place] [address], Platelets (Bld) [#/Vol] 199 10*3/uL Normal 150-400 The [facility] Comment on above: Performed By: #### T S #### [facility] [address], [place], RBC (Bld) [#/Vol] 2.40 10*6/uL Low 4.50-5.90 [facility] [employer] [facility] Comment on above: Performed By: #### T S #### [facility] [address], [place], WBC (Bld) [#/Vol] 9.6 10*3/uL Normal 4.5-11.5 [facility] [employer] [facility] Comment on above: Performed By: #### T S #### S [facility] LAB[facility]AT[facility] [address], [place], Care Plan Noteon 02-21-2023 [employer] Authentication Interface Message Text Problem: Routine Care: [...] and once discontinued Outcome: Progressing Normal The [facility] GLUCOSE, FINGERSTICK-IN OFFI CEon 02-21-2023 Glucose [Mass/Vol] 144 mg/dL High 80-116 [facility] Comment on above: Performed By: #### [id number] #### NURSING GLUCOSE PROGRAM [address] [place], [address] Glucose [Mass/Vol] 144 mg/dL High 80 - 116 mg/dL [facility] Interpretation and review of laboratory results Abnormal [facility] MAGNESIUMon 02-21-2023 Magnesium [Mass/Vol] 1.9 mg/dL Normal 1.6-2.8 The [facility] Comment on above: Performed By: #### T S #### S [facility] LABORAT[facility] [address] [place] [address], [id number] Magnesium [Mass/Vol] 1.9 mg/dL 1.6 - 2.8 mg/dL [facility] No Panel Informationon 02-21 Interpretation and review of laboratory results Normal [facility] PHOSPHORUSon 02-21-2023 Phosphate [Mass/Vol] 2.3 mg/dL Normal 2.3-4.2 [facility] Comment on above: Performed By: #### T S #### [facility] [address] [place], [phone] Phosphate [Mass/Vol] 2.3 mg/dL 2.3 - 4.2 mg/dL [facility] Procedureson 02-21-2023 [employer]ner Authentication Interface Message Text Upper Extremities Venous Duplex [address] [place], [place] [address] Status:Open Demographics Patient name: JUAN Leung Gender: Male Date of : 1950 Age: 72 year(s) Procedure Information Procedure date: 02/21/2023 2:15 PM Procedure type: Vascular Proc. sub type: Veins, Upper Extremities Veins, LIMITED DUPLEX VEIN SCAN UE Accession no: [id number] Patient status: Routine Study location: Portable Technical quality: Poor visualization Limitation reason: Poor acoustical window Procedure Staff Referring Physician: SUKHWINDER BRIAN Gas Line Servicer: RICKEY NúñezT Interpreting physician: NATAN Ceja MD Indications Pain, edema, discoloration. Risk Factors Additional comments: No significant history Page 1/ JUAN Leung 1950 [id number] 02/21/2023 2:15 PM Upper Extremities Venous Duplex [...] jugular vein. Page 2/ JUAN Leung 1950 [id number] 02/21/2023 2:15 PM Invalid Interpretation Code [facility] [employer] [facility] Progress Noteson 02-21-2023 [employer]ner Authentication Interface Message Text Preliminary Vascular Lab Report Duplex Left Upper Extremity Vein Scan No evidence deep vein thrombus left upper extremity, official to follow report to follow. Masoud Castañeda RVT Normal [facility] [employer]ner Authentication Interface Message Text Pt is rec for SNF Pt was denied from [facility] due to no available bed. Ruben will like updates Friday before deciding to clinically accept. Pt is still pending med readiness Pt will not need precert SW will continue to follow Aj BRASHER,PROJ MGR Normal [facility] [employer]ner Authentication Interface Message Text At 19:40 patient [...] baseline. Will continue to monitor. Normal [facility] [employer] [facility] URINALYSIS WITH REFLEX CULTU RE PERFORMABLEon [...] ASIA Freitas, PHOS #### S [facility] LABORATORY [address] [place] [address], Protein (U) [Mass/Vol] 30 mg/dL Abnormal Negative The [facility] Comment on above: Order Comment: A [...] Meredith CH8, PHOS #### [facility] [address] [place] [address], U APPEAR Clear Normal Clear [facility] [...] Meredith CH8, PHOS #### [facility] [address] [place] [address], U BILI Negative Normal Negative [facility] [employer] [facility] Comment on above: Order Comment: A [...] Meredith CH8, PHOS #### S [facility] [address] [place] [address], U BLOOD Negative Normal Negative [facility] [employer] [facility] Comment on above: Order Comment: A [...] Meredith, CH8, PHOS #### [facility] [address] [place] [address], U COLOR Yellow Normal Colorless [facility] Comment on above: Order Comment: A [...] Meredith CH8, PHOS #### [facility] [address] [place] [address], U KETONE Negative Normal Negative [facility] [employer] [facility] Comment on above: Order Comment: A [...] Meredith CH8, PHOS #### [facility] [address] [place] [address], U LEUK Negative Normal Negative [facility] [employer]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 [address] [place], [place], Performed By: #### Coby CORREA ####[facility] [id number] [place], CROSSMATCH INTERPRETATION Compatible (E) Normal [facility] Comment on above: Performed By: #### P T #### [facility] [address] [place], [place], Performed By: #### ASIA Freitas PHOS #### [facility] [address] [place], [place], Performed By: #### Coby CORREA ####S PATHOLOGY [id number] [place], [place], Transfer Documentson 023 Transfer Documents [id number]# 1.00TIFF Normal [facility] VANCOMYCIN RANDOMon 02-19-20 23 VANC R 8.2 ug/mL Normal 5.0-40.0 [facility] Comment on above: Performed By: #### P T #### S PATHOLOGY LABORATORY [address] [place], [place], Vancomycin [Mass/Vol] 8.2 ug/mL 5.0 - 40.0 ug/mL [facility] BASIC METABOLIC PANELon 01-25 Anion gap [Moles/Vol] 11 mmol/L Normal 10-20 [facility] Comment on above: Performed By: #### ASIA Freitas PHOS #### S PATHOLOGY LABORATORY [address] [place], [place], Calcium [Mass/Vol] 8.3 mg/dL Low 8.6-10.3 [facility] Comment on above: Result Comment: Note updated reference ranges. Performed By: ###ASIA Alas PHOS #### [facility] [address] [place] [address], Chloride [Moles/Vol] 105 mmol/L Normal 98-107 [facility] Comment on above: Result Comment: Note updated reference ranges. Performed By: ###ASIA Alas PHOS #### [facility] [address] [place], [place], CO2 [Moles/Vol] 24 mmol/L Normal 21-31 [facility] Comment on above: Result Comment: Note updated reference ranges. Performed By: #### ASIA Freitas, PHOS #### [facility] [address] [place], [place], Creatinine [Mass/Vol] 1.00 mg/dL Normal 0.70-1.30 [facility] Comment on above: Result Comment: Note updated reference ranges. Performed By: #### ASIA Freitas, PHOS #### [facility] [address] [place], [place], ESTIMATED GFR (CKD-EPI) 79 mL/min/1.73sqm Normal >=60 [facility] Comment on above: Result Comment: 2020 CKD EPI Equation using Creatinine without Race Comment: Estimated glomerular filtration rate (eGFR) is calculated without a race coefficient. Values should be interpreted in the context of the patient's full clinical presentation. Reference: 1. Clayton C, aLn M, Alissa RAMEY, et al.. A Unifying Approach for GFR Estimation: Recommendations of the NKF-ASN Task Force on Reassessing the Inclusion of Race in Diagnosing Kidney Disease. [place] Journal of Kidney Diseases 2021;79(2):268-88.e1. 2. N Engl J Med 2020 Vol. 385 Issue 19 Pages 0474-2749 Performed By: #### ASIA Freitas, PHOS #### [facility] [address] [place], [place], Glucose [Mass/Vol] 189 mg/dL High 74-109 [facility] Comment on above: Performed By: #### ASIA Freitas, PHOS #### [facility] [address] [place], [place], Potassium [Moles/Vol] 4.0 mmol/L Normal 3.5-5.0 [facility] Comment on above: Result Comment: Note updated reference ranges. Note updated reference ranges. Performed By: #### ASIA Freitas, PHOS #### [facility] [address] [place], [place], Sodium [Moles/Vol] 136 mmol/L Normal 136-145 [facility] Comment on above: Result Comment: Note updated reference ranges. Performed By: #### ASIA Freitas, MIGUEL #### [facility] [address] [place] [address], Urea nitrogen [Mass/Vol] 36 mg/dL High 7-25 [facility] Comment on above: Result Comment: Note updated reference ranges. Performed By: #### ASIA Freitas PHOS #### [facility] [address] [place] [address], BLOOD GAS, ARTERIALon 2022 CR GEOVANNI -1.0 mmol/L Normal -2.0-3.0 [facility] Comment on above: Performed By: #### C BC #### S PATHOLOGY LABORATORY [address] [place] [address], CR PCO2 38.6 mm Hg Normal 35.0-45.0 [facility] Comment on above: Performed By: #### C BC #### S PATHOLOGY LABORATORY [address] [place] [address], CR PHA 7.395 Normal 7.350-7.450 [facility] Comment on above: Performed By: #### C BC #### [facility] [address] [place] [address], CR PO2 81 mm Hg Normal 80-100 [facility] Comment on above: Performed By: #### C BC #### [facility] [address] [place] [address], FIO2 (CATEGORY) 2 LPM Normal [facility] Comment on above: Performed By: #### C BC #### S PATHOLOGY LABORATORY [address] [place] [address], HCO3 (Bld) [Moles/Vol] 23 mmol/L Normal 21-28 [facility] Comment on above: Performed By: #### C BC #### [facility] [address] [place] [address], MODE Nasal Canula Normal [facility] Comment on above: Performed By: #### C BC #### [facility] [address] [place], [place], Oxygen saturation in Blood 96.1 % Normal 95.0-99.0 The [facility] Comment on above: Performed By: #### C BC #### [facility] [address] [place], [place], BLOOD GAS, VENOUSon 02-18-20 CR ABEV -0.3 mmol/L Normal -2.0-3.0 [facility] Comment on above: Performed By: #### C BC #### [facility] [address] [place], [place], CR HCO3V 25 mmol/L Normal 21-28 The [facility] Comment on above: Performed By: #### C BC #### [facility] [address] [place] [address], CR PHV 7.367 Normal 7.320-7.430 [facility] Comment on above: Performed By: #### C BC #### [facility] [address] [place] [address], CR PVCO2 43.8 mm Hg Normal 41.0-51.0 [facility] Comment on above: Performed By: #### C BC #### [facility] [address] [place] [address], CR PVO2 36 mm Hg Low 38-44 [facility] Comment on above: Performed By: #### C BC #### S PATHOLOGY LABORATORY [address] [place] [address], Oxygen saturation in Blood 67.1 % Low 70.0-80.0 [facility] Comment on above: Performed By: #### C BC #### S PATHOLOGY LABORATORY [address] [place] [address], Basic metabolic 2000 panelon 02-17-2023 Anion gap [Moles/Vol] 11 mmol/L 10 - 20 [facility] Calcium [Mass/Vol] 8.3 mg/dL Low 8.6 - 10. 3 mg/dL [facility] Chloride [Moles/Vol] 105 mmol/L 98 - 107 mmol/L [facility] CO2 [Moles/Vol] 24 mmol/L 21 - 31 mmol/L [facility] Creatinine [Mass/Vol] 1.00 mg/dL 0.70 - 1.30 mg/dL [facility] GFR/1.73 sq M.predicted CKD-EPI (S/P/Bld) [Vol rate/Area] 79 - PINF [facility] Glucose [Mass/Vol] 189 mg/dL High 74 - 109 mg/dL [facility] Interpretation and review of laboratory results Abnormal [facility] Potassium [Moles/Vol] 4.0 mmol/L 3.5 - 5.0 mmol/L [facility] Sodium [Moles/Vol] 136 mmol/L 136 - 145 mmol/L [facility] Urea nitrogen [Mass/Vol] 36 mg/dL High 7 - 25 mg/dL [facility] CBC panel Auto (Bld)on 02-17 Erythrocyte distribution width (RBC) [Ratio] 14.9 % High 11.5 - 14.5 % [facility] Hematocrit (Bld) [Volume fraction] 29.5 % Low 41.0 - 53.0 % [facility] Hemoglobin (Bld) [Mass/Vol] 10.1 g/dL Low 13.9 - 16.3 g/dL [facility] Interpretation and review of laboratory results Abnormal [facility] MCH (RBC) [Entitic mass] 30.3 pg 26.0 - 34.0 pg [facility] MCHC (RBC) [Mass/Vol] 34.2 g/dL 32.0 - 35.9 g/dL [facility] MCV (RBC) [Entitic vol] 89 fL 80 - 100 fL [facility] Platelet mean volume (Bld) [Entitic vol] 8.6 fL 7.5 - 11.2 fL [facility] Platelets (Bld) [#/Vol] 145 10*3/uL Low 150 - 400 K/uL [facility] RBC (Bld) [#/Vol] 3.33 10*6/uL Low [facility] WBC (Bld) [#/Vol] 9.9 10*3/uL 4.5 - 11.5 K/uL [facility] COMPLETE BLOOD COUNTon 02-17 Erythrocyte distribution width (RBC) [Ratio] 14.9 % High 11.5-14.5 The [facility] Comment on above: Performed By: #### C BC ####[facility] [id number] [place], Hematocrit (Bld) [Volume fraction] 29.5 % Low 41.0-53.0 The [facility] Comment on above: Performed By: #### C BC ####[facility] [id number] [place], Hemoglobin (Bld) [Mass/Vol] 10.1 g/dL Low 13.9-16.3 The [facility] Comment on above: Performed By: #### C BC ####[facility] [id number] [place], MCH (RBC) [Entitic mass] 30.3 pg Normal 26.0-34.0 The [facility] Comment on above: Performed By: #### C BC ####[facility] [id number] [place], MCHC (RBC) [Mass/Vol] 34.2 g/dL Normal 32.0-35.9 The [facility] Comment on above: Performed By: #### C BC ####[facility] [id number] [place], MCV (RBC) [Entitic vol] 89 fL Normal 80-100 The [facility] Comment on above: Performed By: #### C BC ####[facility] [id number] [place], Platelet mean volume (Bld) [Entitic vol] 8.6 fL Normal 7.5-11.2 The [facility] Comment on above: Performed By: #### C BC ####[facility] [id number] [place], Platelets (Bld) [#/Vol] 145 10*3/uL Low 150-400 The [facility] Comment on above: Performed By: #### C BC ####[facility] PATHOLOG[facility] [id number] [place], [place], RBC (Bld) [#/Vol] 3.33 10*6/uL Low 4.50-5.90 [facility] Comment on above: Performed By: #### C BC ####[facility] [id number] [place], [place], WBC (Bld) [#/Vol] 9.9 10*3/uL Normal 4.5-11.5 [facility] [employer] [facility] Comment on above: Performed By: #### C BC ####[facility] PATH[facility]Y [id number] [place], [place], Care Plan Noteon 02-17-2023 [employer] Pot [employer]ner Authentication Interface Message Text Problem: Routine Care: [...] will be met Outcome: Progressing Normal [facility] [employer] [facility] Consultson 02-17-2023 [employer]izing [employer]ner Authentication Interface Message Text PHYSICAL/OCCUPATIONAL THERAPY Attempted to see patient for PT/OT evals this date. Patient scheduled for OR this date for fixation of left femur fracture. Will follow up post-operative as able and medically appropriate. Sylvia Alcantara PT Normal [facility] [employer] [facility] GLUCOSE, FINGERSTICK-IN OFFI CEon 02-17-2023 Glucose [Mass/Vol] 140 mg/dL High 80-116 [facility] [employer] [facility] Comment on above: Performed By: #### 8 2948 #### NURSING GLUCOSE PROGRAM [address] [place], [address] Glucose [Mass/Vol] 140 mg/dL High 80 - 116 mg/dL [facility] Interpretation and review of laboratory results [facility]normal [facility] MAGNESIUMon 02-17-2023 Magnesium [Mass/Vol] 1.7 mg/dL Normal 1.6-2.8 The [facility] Comment on above: Performed By: #### C BC #### [facility] [address] [place], [place], Magnesium [Mass/Vol] 1.7 mg/dL 1.6 - 2.8 mg/dL [facility] MRSA SCREENOrdered By: Shari Ceja on 02-17-2023 Interpretation and review of laboratory results Normal [facility] MRSA isol Org specific cx Ql (Nose) No methicillin resistant Staphylococcus aureus isolated. No methicillin resistant Staphylococcus aureus isolated. [facility] No Panel Informationon 02-17 Interpretation and review of laboratory results Normal [facility] PHOSPHORUSon 02-17-2023 Phosphate [Mass/Vol] 2.6 mg/dL Normal 2.3-4.2 The [facility] Comment on above: Performed By: #### C BC #### S PATHOLOGY LABORATORY [address] [place], [place], Phosphate [Mass/Vol] 2.6 mg/dL 2.3 - 4.2 mg/dL [facility] Progress Noteson 02-17-2023 Galvanizing Pot Runner Authentication Interface Message Text -------- GENERAL INFORMATION [...] R rib 9-10 fracture was seen at [facility].The patient had 5 packs of RBCs, 3 packs of FFP, 1 platelet, TXA and Vit K from when he arrived to [facility] and in transit. 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 Normal [facility] [employer] [facility] XR CHEST AP OR PA 1 [...] Blood group O Rh(D) positive Normal [facility] Comment on above: Performed By: #### 8 2948 #### [facility] GLUCOSE PROGRAM [address] [place] [address], [address] BASIC METABOLIC PANELon 01-25 Anion gap [Moles/Vol] 14 mmol/L Normal 10-20 [facility] Comment on above: Performed By: #### C BC #### [facility] PATH[facility] LABORATORY [address] [place] [address], Calcium [Mass/Vol] 8.3 mg/dL Low 8.6-10.3 [facility] Comment on above: Result Comment: Note updated reference ranges. Performed By: #### C BC #### [facility] LABORATORY [address] [place] [address], Chloride [Moles/Vol] 109 mmol/L High 98-107 The [facility] Comment on above: Result Comment: Note updated reference ranges. Performed By: #### C BC #### [facility] LABORATORY [address] [place] [address], CO2 [Moles/Vol] 20 mmol/L Low 21-31 The [facility] Comment on above: Result Comment: Note updated reference ranges. Performed By: #### C BC #### [facility] LABORATORY [address] [place] [address], Creatinine [Mass/Vol] 1.38 mg/dL High 0.70-1.30 The [facility] Comment on above: Result Comment: Note updated reference ranges. Performed By: #### C BC #### [facility] LABORATORY [address] [place] [address], ESTIMATED GFR (CKD-EPI) 54 mL/min/1.73sqm Low >=60 [...] Inclusion of Race in Diagnosing Kidney Disease. [place] Journal of Kidney Diseases 202;79(2):268-88.e1. 2. N Engl J Med 1 Vol. 385 Issue 19 Pages 7132-7078 Performed By: #### C BC #### [facility] [address] [place] [address], Glucose [Mass/Vol] 171 mg/dL High 74-109 [facility] Comment on above: Performed By: #### C BC #### S PATHOLOGY LABORATORY [address] [place] [address], Potassium [Moles/Vol] 4.5 mmol/L Normal 3.5-5.0 The [facility] [employer] [facility] Comment on above: Result Comment: Note updated reference ranges. Note updated reference ranges. Performed By: #### C BC #### S PATHOLOGY LABORATORY [address] [place] [address], Sodium [Moles/Vol] 138 mmol/L Normal 136-145 [facility] [employer] [facility] Comment on above: Result Comment: Note updated reference ranges. Performed By: #### C BC #### S PATHOLOGY LABORATORY [address] [place] [address], Urea nitrogen [Mass/Vol] 38 mg/dL High 7-25 [facility] Comment on above: Result Comment: Note updated reference ranges. Performed By: #### C BC #### S PATHOLOGY LABORATORY [address] [place] [address], Anion gap [Moles/Vol] 13 mmol/L Normal 10-20 The [facility] [employer] [facility] Comment on above: Performed By: #### C BC #### [facility] [address] [place] [address], Calcium [Mass/Vol] 9.8 mg/dL Normal 8.6-10.3 The [facility] Comment on above: Result Comment: Note updated reference ranges. Performed By: #### C BC #### S PATHOLOGY LABORATORY [address] [place], [place], Chloride [Moles/Vol] 111 mmol/L High 98-107 The [facility] Comment on above: Result Comment: Note updated reference ranges. Performed By: #### C BC #### S PATHOLOGY LABORATORY [address] [place], [place], CO2 [Moles/Vol] 25 mmol/L Normal 21-31 The [facility] Comment on above: Result Comment: Note updated reference ranges. Performed By: #### C BC #### [facility] LABORATORY [address] [place], [place], Creatinine [Mass/Vol] 1.12 mg/dL Normal 0.70-1.30 The [facility] Comment on above: Result Comment: Note updated reference ranges. Performed By: #### C BC #### S PATHOLOGY LABORATORY [address] [place], [place], ESTIMATED GFR (CKD-EPI) 69 mL/min/1.73sqm Normal [...] Inclusion of Race in Diagnosing Kidney Disease. [place] Journal of Kidney Diseases 2021;79(2):268-88.e1. 2. N Engl J Med 1 Vol. 385 Issue 19 Pages 2933-4197 Performed By: #### C BC #### S PATHOLOGY LABORATORY [address] [place], [place], Glucose [Mass/Vol] 130 mg/dL High 74-109 [facility] [employer] [facility] Comment on above: Performed By: #### C BC #### S PATHOLOGY LABORATORY [address] [place], [address] Potassium [Moles/Vol] 5.3 mmol/L High 3.5-5.0 The [facility] Comment on above: Result Comment: Note updated reference ranges. Note updated reference ranges. Performed By: #### C BC #### [facility] [address] [place], [address] Sodium [Moles/Vol] 144 mmol/L Normal 136-145 The [facility] Comment on above: Result Comment: Note updated reference ranges. Performed By: #### C BC #### [facility] [address] [place], [address] Urea nitrogen [Mass/Vol] 27 mg/dL High 7-25 The [facility] Comment on above: Result Comment: Note updated reference ranges. Performed By: #### C BC #### S PATHOLOGY LABORATORY [address] [place], [address] Anion gap [Moles/Vol] 12 mmol/L Normal 10-20 The [facility] Comment on above: Performed By: #### 8 2948 #### NURSING GLUCOSE PROGRAM [address] [place], [address] Calcium [Mass/Vol] 10.2 mg/dL Normal 8.6-10.3 The [facility] Comment on above: Result Comment: Note updated reference ranges. Performed By: #### 8 2948 #### NURSING GLUCOSE PROGRAM [address] [place], [address] Chloride [Moles/Vol] 108 mmol/L High 98-107 The [facility] Comment on above: Result Comment: Note updated reference ranges. Performed By: #### 8 2948 #### NURSING GLUCOSE PROGRAM [address] [place], [address] CO2 [Moles/Vol] 28 mmol/L Normal 21-31 The [facility] Comment on above: Result Comment: Note updated reference ranges. Performed By: #### 8 2948 #### NURSING GLUCOSE PROGRAM [address] [place], [address] Creatinine [Mass/Vol] 1.02 mg/dL Normal 0.70-1.30 The [facility] Comment on above: Result Comment: Note updated reference ranges. Performed By: #### 8 2948 #### NURSING GLUCOSE PROGRAM [address] [facility], [address] ESTIMATED GFR (CKD-EPI) 77 mL/min/1.73sqm Normal >=60 [...] Inclusion of Race in Diagnosing Kidney Disease. [place] Journal of Kidney Diseases 2021;79(2):268-88.e1. 2. N Engl J Med 1 Vol. 385 Issue 19 Pages 4432-6795 Performed By: #### 8 2948 #### NURSING GLUCOSE PROGRAM [address] [place], [address] Glucose [Mass/Vol] 125 mg/dL High 74-109 [facility] Comment on above: Performed By: #### 8 2948 #### NURSING GLUCOSE PROGRAM [address] [place], [address] Potassium [Moles/Vol] 4.5 mmol/L Normal 3.5-5.0 The [facility] [employer] [facility] Comment on above: Result Comment: Note updated reference ranges. Note updated reference ranges. Performed By: #### 8 2948 #### NURSING GLUCOSE PROGRAM [address] [place], [address] Sodium [Moles/Vol] 143 mmol/L Normal 136-145 The [facility] Comment on above: Result Comment: Note updated reference ranges. Performed By: #### 8 2948 #### NURSING GLUCOSE PROGRAM [address] [place], [address] Urea nitrogen [Mass/Vol] 25 mg/dL Normal 7-25 The [facility] Comment on above: Result Comment: Note updated reference ranges. Performed By: #### 8 2948 #### NURSING GLUCOSE PROGRAM [address] [facility] [place], [address] BLOOD CULTUREon 02-16-2023 Bacteria identified Cx Nom (Bld) C BLOOD: No Growth Normal [facility] Comment on above: Performed By: #### M JUDITH Harper8, MIGUEL #### [facility]OR[facility] [address] [place], [address] BLOOD GAS, ARTERIALon 2022 Base excess Calc [...] [Moles/Vol] 14 mmol/L 10 - 20 [facility] Calcium [Mass/Vol] 8.3 mg/dL Low 8.6 - 10. 3 mg/dL [facility] Chloride [Moles/Vol] 109 mmol/L High 98 - 107 mmol/L [facility] CO2 [Moles/Vol] 20 mmol/L Low 21 - 31 mmol/L [facility] Creatinine [Mass/Vol] 1.38 mg/dL High 0.70 - 1.30 mg/dL [facility] GFR/1.73 sq M.predicted CKD-EPI (S/P/Bld) [Vol rate/Area] 54 Low - PINF [facility] Glucose [Mass/Vol] 171 mg/dL High 74 - 109 mg/dL [facility] Interpretation and review of laboratory results Abnormal [facility] Potassium [Moles/Vol] 4.5 mmol/L 3.5 - 5.0 mmol/L [facility] Sodium [Moles/Vol] 138 mmol/L 136 - 145 mmol/L [facility] Urea nitrogen [Mass/Vol] 38 mg/dL High 7 - 25 mg/dL [facility] Anion gap [Moles/Vol] 13 mmol/L 10 - 20 [facility] Calcium [Mass/Vol] 9.8 mg/dL 8.6 - 10. 3 mg/dL [facility] Chloride [Moles/Vol] 111 mmol/L High 98 - 107 mmol/L [facility] CO2 [Moles/Vol] 25 mmol/L 21 - 31 mmol/L [facility] Creatinine [Mass/Vol] 1.12 mg/dL 0.70 - 1.30 mg/dL [facility] GFR/1.73 sq M.predicted CKD-EPI (S/P/Bld) [Vol rate/Area] 69 - PINF [facility] Glucose [Mass/Vol] 130 mg/dL High 74 - 109 mg/dL [facility] Potassium [Moles/Vol] 5.3 mmol/L High 3.5 - 5.0 mmol/L [facility] Sodium [Moles/Vol] 144 mmol/L 136 - 145 mmol/L [facility] Urea nitrogen [Mass/Vol] 27 mg/dL High 7 - 25 mg/dL [facility] Blood Bank Slipon 02-16-2023 Blood Bank Slip [phone] [id number]# 1.00TIFF Normal [facility] CALCIUM, IONIZEDon 3 CR ICA 1.34 mmol/L High 1.15-1.33 [facility] Comment on above: Result Comment: This test was developed, and its performance characteristics determined by the Department of Pathology of The [facility]. It has not been cleared or approved by the FDA. This test is used for clinical purposes only. Performed By: #### C R ICA ####[facility] PATHOLOGY [id number] [place], [place], Calcium.ionized (Bld) [Moles/Vol] 1.34 mmol/L High 1.15 - 1.33 mmol/L [facility] Interpretation and review of laboratory results Abnormal [facility] CR ICA 1.24 mmol/L Normal 1.15-1.33 The [facility] Comment on above: Result Comment: This test was developed, and its performance characteristics determined by the Department of Pathology of The [facility]. It has not been cleared or approved by the FDA. This test is used for clinical purposes only. Performed By: #### C BC #### S PATHOLOGY LABORATORY [address] [place], [place], CALCIUM, IONIZEDOrdered By: Vivian Pena on 02-16-2023 Calcium.ionized (Bld) [Moles/Vol] 1.24 mmol/L 1.15 - 1.33 mmol/L [facility] Interpretation and review of laboratory results Normal [facility] CBC WITH DIFFERENTIALon 01-25 Basophils (Bld) [#/Vol] 0.01 10*3/uL Normal 0.00-0.20 The [facility] Comment on above: Performed By: #### ASIA Freitas PHOS #### [facility] PATH[facility] LABORATORY [address] [place], [place], Basophils/100 WBC (Bld) 0.1 % Normal <=1.9 [facility] Comment on above: Performed By: #### ASIA Freitas PHOS #### [facility] [address] [place], [place], Eosinophils (Bld) [#/Vol] 0.00 10*3/uL Normal 0.00-0.70 [facility] Comment on above: Performed By: #### ASIA Freitas PHOS #### S PATHOLOGY LABORATORY [address] [place], [place], Eosinophils/100 WBC (Bld) 0.0 % Low 0.1-4.0 [facility] Comment on above: Performed By: #### ASIA Freitas PHOS #### [facility] LABOR[facility] [address] [place] [address], Erythrocyte distribution width (RBC) [Ratio] 14.9 % High 11.5-14.5 [facility] Comment on above: Performed By: #### ASIA Freitas, PHOS #### [facility] [address] [place] [address], Hematocrit (Bld) [Volume fraction] 38.9 % Low 41.0-53.0 [facility] Comment on above: Performed By: #### ASIA Freitas, PHOS #### [facility] LABOR[facility] [address] [place] [address], Hemoglobin (Bld) [Mass/Vol] 12.9 g/dL Low 13.9-16.3 [facility] Comment on above: Performed By: #### ASIA Freitas, PHOS #### S PATHOLOGY LABORATORY [address] [place] [address], Lymphocytes (Bld) [#/Vol] 0.42 10*3/uL Low 1.00-4.80 [facility] Comment on above: Performed By: #### ASIA Freitas, PHOS #### S PATHOLOGY LABORATORY [address] [place] [address], Lymphocytes/100 WBC (Bld) 3.3 % Low 24.0-44.0 [facility] Comment on above: Performed By: #### ASIA Freitas, PHOS #### S PATHOLOGY LABORATORY [address] [place] [address], MCH (RBC) [Entitic mass] 29.6 pg Normal 26.0-34.0 [facility] Comment on above: Performed By: #### ASIA Freitas, PHOS #### S PATHOLOGY LABORATORY [address] [place], [place], MCHC (RBC) [Mass/Vol] 33.2 g/dL Normal 32.0-35.9 [facility] Comment on above: Performed By: #### ASIA Freitas, PHOS #### [facility] [address] [place] [address], MCV (RBC) [Entitic vol] 89 fL Normal 80-100 The [facility] Comment on above: Performed By: #### ASIA Freitas, PHOS #### [facility] LAB[facility] [address] [place] [address], MONOCYTE DISTRIBUTION WIDTH 20 Normal <=20 The [facility] Comment on above: Performed By: #### ASIA Freitas, PHOS #### [facility] [address] [place] [address], Monocytes (Bld) [#/Vol] 1.18 10*3/uL High 0.20-1.00 [facility] Comment on above: Performed By: #### ASIA Freitas, PHOS #### [facility] LAB[facility] [address] [place] [address], Monocytes/100 WBC (Bld) 9.1 % Normal 2.0-11.0 The [facility] Comment on above: Performed By: #### ASIA Freitas, PHOS #### S PATHOLOGY LABORATORY [address] [place] [address], Neutrophils (Bld) [#/Vol] 11.30 10*3/uL High 1.50-8.00 [facility] Comment on above: Performed By: #### ASIA Freitas, PHOS #### S PATHOLOGY LABORATORY [address] [place] [address], Neutrophils/100 WBC (Bld) 87.5 % High 31.0-76.0 [facility] Comment on above: Performed By: #### ASIA Freitas, PHOS #### [facility] LAB[facility] [address] [place] [address], Platelet mean volume (Bld) [Entitic vol] 7.8 fL Normal 7.5-11.2 The [facility] Comment on above: Performed By: #### ASIA Freitas, PHOS #### [facility] [address] [place] [address], Platelets (Bld) [#/Vol] 149 10*3/uL Low 150-400 [facility] Comment on above: Performed By: #### ASIA Freitas, PHOS #### [facility] LABORATORY [address] [place], [place], RBC (Bld) [#/Vol] 4.36 10*6/uL Low 4.50-5.90 [facility] Comment on above: Performed By: #### ASIA Freitas, PHOS #### S PATHOLOGY LABORATORY [address] [place], [place], WBC (Bld) [#/Vol] 12.9 10*3/uL High 4.5-11.5 [facility] Comment on above: Performed By: #### ASIA Freitas, PHOS #### S PATHOLOGY LABORATORY [address] [place], [place], CBC panel Auto (Bld)Ordered By: Wesley Maloney on 02-16-2023 Erythrocyte distribution width (RBC) [Ratio] 14.8 % High 11.5 - 14.5 % [facility] Hematocrit (Bld) [Volume fraction] 30.0 % Low 41.0 - 53.0 % [facility] Hemoglobin (Bld) [Mass/Vol] 10.2 g/dL Low 13.9 - 16.3 g/dL [facility] Interpretation and review of laboratory results [...] 9.2 10*3/uL 4.5 - 11.5 K/uL [facility] CBC panel Auto (Bld)on 02-16 [...] (RBC) [Ratio] 14.8 % High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 08/02/2022 [id number] Transcribed: 08/03/2022 Normal [facility] Comment on above: Result Comment: Elec tronically Signed By: German ESCOBEDO, Christopher Castro\Date and Time Signed: 08/19/22 13:42 EDT POCT PT/INRon 08-16-2022 POCT INR 3.1 High .7-1.2 [facility] Comment on above: Performed By: #### 2 [id number] #### [facility] [address] [place] [address] POCT PT 32.7 second(s) High 8.0-15.0 [facility] Comment on above: Performed By: #### 2 [id number] #### [facility] [address] [place] [address] Falls Screening (Age 18+)on 08-13-2022 Fall risk assessment a) No falls within the last year [facility] [address] DO Work Phone: Consent for Procedure/Surger yon 08-05-2022 Consent for Procedure/Surgery [id number]#1 .00CD:127 Normal [facility] Monitor Recordon 08-05-2022 Monitor Record [id number]#1 .00CD:127 Normal [facility] Cardiovascular Reporton Cardiovascular Report [id number] 1.00CD:127 Normal [facility] Consent for Treatmenton Consent for Treatment [id number] .00CD:127 Normal [facility] Consultation Noteon 08-03-19 Consultation Note Patient: [...] of Adverse/Allergic Reaction to Sedation: None. Normal [facility] Comment on above: Result Comment: Elec tronically Signed By: German ESCOBEDO, Christopher Bansal\.br\Date and Time Signed: 08/02/22 12:50 EDT Inpatient Clinical Summaryon 08-02-2022 Inpatient Clinical Summary [address] [address] Clinical Summary Person Information: Name: FREDRICK STROUD Age: 71 Years : 1950 Sex: Male PCP: KARINA MELGAR MD Marital Status: Phone: [phone] Race: White Ethnicity: Non- or Language: British Visit Id: Visit Reason: I48.19 Speciality: Acuity: Enc Type: Ambulatory/Same Day Surgery Med Service: Cardiovascular Arrival: 08/02/2022 11:37:14 Discharge: Dispo Type: Address: [address] [place] [id number] Provider Notes: Diagnosis: Atrial fibrillation Problems Active [...] This Visit Final Med List: acetaminophen-hydroco done ([place] 325 mg-5 mg oral tablet) 1 Tablets [...] MD Follow up: With: [facility]: [facility], [facility] [address], [address] [place] [address] Business (1) Comments: Call for followup appointment Type Location Start Finish State Anticoagulation Follow Up 15 (FT) FT.CARDIO 08/16/2022 11:15 AM 08/16/2022 11:30 AM Confirmed Patient Education Information: CV - Cardioversion (CUSTOM) Normal [facility] Inpatient Patient Summaryon 08-02-2022 Inpatient Patient Summary [address] [address] Patient Discharge Instructions PERSON INFORMATION Name: FREDRICK [...] None Follow up: With: Address: [facility], [facility] [address], [address] [place] [address] Business (1) Comments: Call for followup appointment [...] with No Changes Other Medications acetaminophen-hydroco done ([place] 325 mg-5 mg oral tablet) 1 Tablets [...] WITH YOU AT ALL TIMES. acetaminophen-hydroco done ([place] 325 mg-5 mg oral tablet) 1 Tablets [...] Pharmacy Information: Comment: PATIENT EDUCATION INFORMATION Instructions: [place], [place] CARDIOVERSION AFTER THE PROCEDURE: DIET: ? [...] the event (more content not included)... Normal [facility] - Chemistry and C hemistry - challengeon 08-02-2022 CO2 [Moles/Vol] 27 mmol/L Normal 21-31 -[facility] 250 DO Work Phone: Laboratory - Coagulationon 0 08-02-2022 INR Coag (Bld) [Relative time] 3.5 {INR} [facility] Work Phone: Comment on above: INR results are spec ifically intended to assess patients stabilized on long-term Anticoagulation therapy suggested INR?s ?Less Intensive Anticoagulation? 2.0 ? 3.0Conventional Range 3.0 ? 4.5 Lyteson 08-02-2022 Anion gap [Moles/Vol] 12 mmol/L Normal 6-16 [facility] Comment on above: Order Comment: STAT on admission. Performed By: #### 2 [id number] #### [facility] [address] [place] [address] Chloride [Moles/Vol] 104 mmol/L Normal 101-111 [facility] Comment on above: Order Comment: STAT on admission. Performed By: #### 2 [id number] #### [facility] [address] [place] [address] CO2 [Moles/Vol] 27 mmol/L Normal 21-31 [facility] Comment on above: Order Comment: STAT on admission. Performed By: #### 2 [id number] #### [facility] [address] [place] [address] Potassium [Moles/Vol] 4.5 mmol/L Normal 3.5-5.3 [facility] Comment on above: Order Comment: STAT on admission. Performed By: #### 2 [id number] #### [facility] [address] [place] [address] Sodium [Moles/Vol] 138 mmol/L Normal 135-145 [facility] Comment on above: Order Comment: STAT on admission. Performed By: #### 2 [id number] #### [facility] [address] [place] [address] No Panel Informationon 08-02 12 {mEq/L} Normal 6-16 [facility] 250 DO Work Phone: [phone] 104 mmol/L Normal 101-111 [facility] 250 DO Work Phone: [phone] 4.5 mmol/L Normal 3.5-5.3 [facility] y 250 DO Work Phone: [phone] 138 mmol/L Normal 135-145 [facility] DO Work Phone: [phone] 41.2 {second(s)} above high threshold 9.4-12.5 [facility] y 250 DO Work Phone: Comment [...] the same coagulation reagent and instrumentation as [facility]. Currently there are no coagulation studies available worldwide for children to 14 days, and no normal ranges. PTon 08-02-2022 INR Coag (PPP) [Relative time] 3.5 {INR} Invalid Interpretation Code [facility] Comment on above: Order Comment: On ad mission if patient is on Coumadin therapy. Result Comment: INR results are specifically intended to assess patients stabilized on long-term Anticoagulation therapy suggested INR?s ?Less Intensive Anticoagulation? 2.0 ? 3.0 Conventional Range 3.0 ? 4.5 Performed By: #### 2 [id number] #### [facility] [address] [place] [address] PT Coag (PPP) [Time] 41.2 second(s) High 9.4-12.5 [facility] Comment on above: Order Comment: On [...] the same coagulation reagent and instrumentation as [facility]. Currently there are no coagulation studies available worldwide for children to 14 days, and no normal ranges. Performed By: #### 2 [id number] #### [facility] [address] [place] [address] Patient Education - Texton 0 08-02-2022 Patient Education - Text [place], [place] CARDIOVERSION AFTER THE PROCEDURE: DIET: ? [...] event you are unable to reach your clinical trainer, please call [facility] at [phone] and the refrigeration operator will assist you in contacting your [...] or toes turn cold or blue. Normal [facility] Progress Note-Physicianon Progress Note-Physician Patient: FREDRICK STROUD Age: 71 years Sex: Male : 1950 Associated Diagnoses: None Author: German ESCOBEDO, Christopher Bansal Impression and Plan DCC WITH PROPAFOL 70 MG AND 200 J SYNC ONCE TO NSR SAT>95 % NO NEURO CHANGES PLAN HOME ON SAME RX Normal [facility] Comment on above: Result Comment: Elec tronically Signed By: German ESCOBEDO, Christopher Bansal\.br\Date and Time Signed: 08/02/22 13:03 EDT POCT PT/INRon 07-26-2022 POCT INR 2.7 High .7-1.2 [facility] Comment on above: Performed By: #### 2 [id number] #### [facility] [address] [place] [address] POCT PT 29.2 second(s) High 8.0-15.0 [facility] Comment on above: Performed By: #### 2 [id number] #### [facility] [address] [place] [address] POCT PT/INRon 07-19-2022 POCT INR 3.2 High .7-1.2 [facility] Comment on above: Performed By: #### 2 [id number] ####[facility] [address] [place] [address] POCT PT 34.5 second(s) High 8.0-15.0 [facility] Comment on above: Performed By: #### 2 [id number] ####[facility] [address] [place] [address] Physician Orderon 07-16-2022 Physician Order [id number]#1 .00CD:127 Normal [facility] POCT PT/INRon 07-12-2022 POCT INR 4.3 High .7-1.2 [facility] Comment on above: Performed By: #### 1 [id number], [id number], [id number], [id number] #### [facility] [address] [place] [address] POCT PT 45.1 second(s) High 8.0-15.0 [facility] Comment on above: Performed By: #### 1 [id number], [id number], [id number], [id number] #### [facility] [address] [place] [address] Falls Screening (Age 18+)on 07-05-2022 Fall risk assessment a) No falls within the last year [facility] [employer] 600 DO Work Phone: Tobacco use status [facility] b) No [facility] 600 DO Work Phone: Office Visit [...] HOURS Cardioversion; Status:Active - Retrospective Authorization; Requested for:[id number]; IO EKG Electrocardiogram- 12 Lead; Status:Complete; Done: [...] 2 MG Oral TabletTake as directed by [facility] coumadin clinic Zinc 50 MG [place] 1 [...] negative for complaint. Vitals Vital Signs Recorded: 48Pob2021 09:08AM Heart Rate72, Apical Xzohbvnn221, LUE, Sitting Zdxsxwesd28, LUE, Sitting Height5 ft 6 in Ueoefl672 lb BMI Eckaaovjkm52.54 kg/m2 BSA Calculated2.18 Tobacco Useb) No F (more content not included)... Normal [facility] POCT PT/INRon 06-26-2022 POCT INR See Comment Invalid Interpretation Code .7-1.2 [facility] Comment on above: Result Comment: Test ing error, please disregard previously charted results Performed By: #### 1 [id number], [id number], [id number], [id number] #### [facility] [address] [place] [address] POCT PT See Comment Invalid Interpretation Code 8.0-15.0 [facility] Comment on above: Result Comment: Test ing error, please disregard previously charted results Performed By: #### 1 [id number], [id number], [id number], [id number] #### [facility] [address] [place] [address] ECG 12 lead ECGon 06-11-2022 ECG 12 lead ECG [facility] Main [address] [address] Electrocardiograph Report Signed Patient: Fredrick Stroud MR#: [id number] 427 : 1950 Acct:[id number] Age/Sex: 71 / M ADM Date: 06/11/22 Loc: EL Room: Type: [facility] SD Attending Dr: Christopher Porter [...] Wisam Torre MD 0 06/11/22 1650 Normal [facility] ECG post procedureon 023 ECG post procedure [facility] Main [address] [address] Electrocardiograph Report Signed Patient: Fredrick Stroud MR#: [id number] : 1950 Acct:[id number] Age/Sex: 71 / M ADM Date: 06/11/22 Loc: EL Room: Type: [facility] SDC Attending Dr: Christopher Porter [...] Wisam Torre MD 0 06/11/22 1650 Normal [facility] Electrolyteson 06-11-2022 Anion gap [Moles/Vol] 12.3 mmol/L Normal 6.0-15.0 [facility] Comment on above: Result Comment: PERF ORMED BY: [place] [address] PATHOLOGIST LADLE BUILDER EYAD HOWARD M.D. Performed By: #### C BC, CMP, HS TROP, BNP #### [facility] [address] [place] [address] Chloride [Moles/Vol] 103 mmol/L Normal 98-107 [facility] Comment on above: Performed By: #### C BC, CMP, HS TROP, BNP #### [facility] [address] [place] [address] [place] CO2 [Moles/Vol] 28.2 mmol/L Normal 21.0-31.0 [facility] Comment on above: Performed By: #### C BC, CMP, HS TROP, BNP #### [facility] [address] [place] [address] [place] Potassium [Moles/Vol] 4.5 mmol/L Normal 3.5-5.1 [facility] Comment on above: Performed By: #### C BC, CMP, HS TROP, BNP #### [facility] [address] [place] [address] [facility] Sodium [Moles/Vol] 139 mmol/L Normal 136-145 [facility] Comment on above: Performed By: #### C BC, CMP, HS TROP, BNP #### [facility] [address] [place] [id number] [facility] No Panel Informationon 06-11 12.3\S\12.3 Normal 6.0-15.0 [facility] 250 DO Work Phone: [phone] Comment on above: PERFORMED BY:[email or web address] [place], [place] [id number] MEDICAL DIRECTOREYAD HOWARD M.D. 28.2\S\28.2 Normal 21.0-31.0 [facility] 250 DO Work Phone: [phone]\S\103 Normal 98-107 [facility] 250 DO Work Phone: 4.5\S\4.5 Normal 3.5-5.1 [facility] 250 DO Work Phone: [phone]\S\[phone] Normal 136-145 [facility] 250 DO Work Phone: [phone] POCT PT/INRon 06-07-2022 POCT INR 2.7 High .7-1.2 [facility] Comment on above: Performed By: #### 2 [id number] #### [facility] [address] [place] [address] POCT PT 28.8 second(s) High 8.0-15.0 [facility] Comment on above: Performed By: #### 2 [id number] #### [facility] [address] [place] [address] POCT PT/INRon 05-28-2022 POCT INR 2.8 High .7-1.2 [facility] Comment on above: Performed By: #### 1 [id number], [id number], [id number], [id number] #### [facility] [address] [place] [address] POCT PT 30.6 second(s) High 8.0-15.0 [facility] Comment on above: Performed By: #### 1 [id number], [id number], [id number], [id number] #### [facility] [address] [place] [address] POCT INR Error Invalid Interpretation Code .7-1.2 [facility] Comment on above: Performed By: #### 2 [id number] #### [facility] [address] [place] [address] POCT PT Strip Error Invalid Interpretation Code 8.0-15.0 [facility] Comment on above: Performed By: #### 2 [id number] #### [facility] [address] [place] [address] POCT PT/INRon 05-21-2022 POCT INR 3.1 High .7-1.2 [facility] Comment on above: Performed By: #### 1 [id number], [id number], [id number], [id number] #### [facility] [address] [place] [address] POCT PT 33.1 second(s) High 8.0-15.0 [facility] Comment on above: Performed By: #### 1 [id number], [id number], [id number], [id number] #### [facility] [address] [place] [address] POCT PT/INRon 05-14-2022 POCT INR 3.2 High .7-1.2 [facility] Comment on above: Performed By: #### 2 [id number] ####[facility] [address] [place] [address] POCT PT 34.5 second(s) High 8.0-15.0 [facility] Comment on above: Performed By: #### 2 [id number] ####[facility] [address] [place] [address] POCT INR Error Invalid Interpretation Code .7-1.2 [facility] Comment on above: Performed By: #### 2 [id number] #### [facility] [address] [place] [address] POCT PT Strip Error Invalid Interpretation Code 8.0-15.0 [facility] Comment on above: Performed By: #### 2 [id number] #### [facility] [address] [place] [address] Falls Screening (Age 18+)on 05-02-2022 Fall risk assessment a) No falls within the last year -[facility] [employer] 600 DO Work Phone: Progress Note-Physicianon Progress [...] stroke: no 4. Serious co-morbid conditions (recent TN, anemia with Hct <30%, CRI with SCr > 1.5, DM): no Score = 1/4 Risk (low = 0, mod = 1-2, high = 3-4): Health Status Allergies: Allergic Reactions (Selected) No Known Medication Allergies, Allergies (1) Active Reaction No Known Medication Allergies None Documented Current medications: (Selected) Prescriptions Prescribed MDI spacer adult: 1 EA, Inhalation, As Directed, 1 EA, Refill(s) 0 [place]port 325 mg-5 mg oral tablet: 1 tab(s), [...] spacer adult 1 EA, Inhalation, As Directed [place] 325 mg-5 mg oral tablet 1 tab(s), PRN, Oral, q6hr Ventolin HFA 90 mcg/inh inhalation aerosol with adapter 2 puff(s), PRN, Inhalation, q6hr Coumadin , No qualifying data available Problem list: All Problems HTN (hypertension) / SNOMED CT 0278239050 / Confirmed Class 3 severe obesity with body mass index (BMI) of 40.0 to 44.9 in adult / SNOMED CT 4489493996 / Confirmed Resolved: Cancer of prostate / SNOMED CT 6098423981, Active Problems (2) Class 3 severe obesity [...] stroke: no 4. Serious co-morbid conditions (recent [place], anemia with Hct <30%, CRI with SCr > 1.5, DM): no Score = 1/4 Risk (low = 0, mod = 1-2, high = 3-4): Normal [facility] Comment on above: Result Comment: Elec [...] therapy and has been managed by the [facility] Coumadin clinic. He says he [...] Recorded: 29Apr2022 11:48AM Heart Rate60, R Radial Ddplizdl731 Wwvjcviiw25 Height5 ft 6 in Wfkpfp946 lb 6 oz BMI Jegjtcmsft65.09 kg/m2 BSA Calculated2.19 Tobacco Useb) No Falls [...] Phone: Tobacco use status CP b) No [facility] 600 DO Work Phone: POCT PT/INRon 04-19-2022 POCT INR 1.7 High .7-1.2 [facility] Comment on above: Performed By: #### 1 [id number], [id number], [id number], [id number] #### [facility] [address] [place] [address] POCT PT 19.1 second(s) High 8.0-15.0 [facility] Comment on above: Performed By: #### 1 [id number], [id number], [id number], [id number] #### [facility] [address] [place] [address] Coding Summary.on 04-08-2022 Coding Summary. CD:[id number] G h0bWw+PGhlYWQ+FL4ITVX aW90ttCHvdP9NV8hPJD7S XVLYKIRNED8QKP2xqTN5F AejT4FmrpTm GdipkVNlIB42AUn4DNN6v WbeUIebqK9wxCZvG1y4Bt YzJE24mC88VGfgAOWiJmD 3LjZpbjsgbWFy W1hzZhZtcUNyTis+PHRhY mxlIHdpZHRoPScxMDAlJy JfrOmhOE2zSs6oPPMfAYI vbGxhcHNlOiBj w3osCSCfONyoVT4ceVftC 4NawWA5KAPfn3d9Jk83bN I+KGCeCIJ8vXfyECfbm71 0CvXsc1rwVWI9 wJXiOSdgNUT3H42uh7U6Q UYlJMFoGUL9xTI0zW4rrN jkyoxaB6EmcDBdDuP5QQG 1eGHcuZ2gbHpo myqhpY7sKyv+Y39QQJ8RW HECZR9ZKno8K0LxTxnabL I+DY30JIKyKM39gSAuyYZ ov9qndEg2DdSm ULMhPGD5zAsdNIdns5QwU OYqE69kaSUya7Z2BHTxtN teuZJzLsPsoZX3xX5zPGd mrlhzi9zneiel Xmsxx5itqt88fQ79K63gU MhdYPXlUFP8MNXxSWSgcV ujkm0ohR5rPx5+NYeil4t qt2mxeTr0YlLf PNRhwlHisOsyYAP9k3MjK j11S9CnzGggg1XmWuk7xz 86yVCdo6J6iKC6IYmkMPY udN1cDTvjAdX7 KQTrXgIwvB63eSJkMBmwF i0xmJtryAivOC4pVLRhmx byGPNrlE5tBVVrnGQhcSe kZF7jLUOlkyxs j521IiDlDKH6CVMcoABvO 6InzY9iClZdWUSjUPFaJ2 WjqCCoFOzaO211DJgxGxL 1IXTvueYtM9Fq AXXhoQomJuV4t6I6Eo8Ao 6VlxsyvVTB5AKymTDUeBi PxTlWgFlV1O4EvNho2OUM ljCcxQM7dT0Eo XLCajthofjsdrOT7QWAoH MOgnE74jDEzFSivRp5yj8 O5i085YYZmEWWunI68Bn0 udDogMTBwdCBU kE2kfjvkg1txixsjOhKxT UWoKRq8NYd9HJOneRobZp BnPSI8QcD4COA0jJOlwL9 scEuxfxqyoL6r Oyc+H57bhG1rSTF2BQJ7g nisNUEyxwEgAN71HY31P6 RyPjwvdGFibGU+PGRpdiB duWlyBW0bYyTo t2ote3QyDNnwJ7TxMVMuH UjsVij0KKAyNZB2hOB8xC 9cQYUwNIwbk5N4dVF7G7J iazGnbc5mh0ie SQQsLNauO11jrSOdf3D9F EJlwYT2QKZwbFwrYhMhdI 93Oyc+IMGvvHsnc5CsOnb or5dkh9lboEf2 IxUjRKHsrpTspUrjMFI8z 6OxPl73B47eAJtgFZUsUL QuGZLbQZUgbCagkj6sdY6 wIi8+PGNvbCB3 hGI9rQ7nBERtVaP0NQieS 999IbLakAXiUjkay4iua6 kkrKq2MsXoBHWewaAlcUi sJLA5n9KyWi81 E79rAUwvGXNzXJXqYTZrA MZcsScfcg1ezQ2jIp3+PC 4co0hahy40aQ09sVL+PHR zAZD6sMrlTGpv CBPioX7eGTyxMmJ4SGQpQ dLcqZ78dKTyWMbmKj2onR mfsEkuOG9hYSQsgtdsa31 1CoRmz6igQYSd uNUzDXsnKVF8V97gx7S0J ULgZOKvKND7pBI6qU1leA lnbjogbGVmdDsgdmVydGl fXSolSQwdY083 IHRvcDsnPlBhdGllbnQgT aUaAKr8Z2YrAic9JYLzhZ jpKG8kdVHmJCcdYr2lcBs eqTipSZ8rGGMg eaghu954LkNea6ogZSGyw IExZMnnSQX9P39jf9P6KP YaEGQzGNY9bKV3jR5loYd nbjogbGVmdDsg huTudMqcWIglPVnzV277X HRvcDsnPkJpcnRoIERhdG N9OH92IS11vUYih1T4rWG 2W4RfWIMlgxvk olxegIO5NQPqKLXeqP96R v8mlVqpOa9aZTKpDQO9SL GufUAjP5EtrY8oSrDbPOL sWMFfF8HvjKGo BYicC502QNshHxB3TTNmf qRcG7JvQUGqfCjjEzJ9v9 R1Yv6II4J1QZ95RT05cSS bd5Z4zZC5K6Lo FFXxnkoxodegcYK9CAEeM HBtjC80Cd3grJzeGw2yXC OzOMH4AZGyeHTgT8LkuU1 yOiAjMDAwMDAw C8QxrJKeFVmsW250WFsiK wB6YIShrcJyC2SxUWZakS spTaT1i3V5Ev4FLMb6AV7 7UJ81kUDba5K6 bRN0L6IwEDSycbqvcgmyr KJ7BXFaHMWaxE55Qw1seO wpYl1aNEJrALX4ZREapKE fE3ImaG9hXtWy KMCrHRQtL4YzjEKkMCkdQ 046UAqjXdX0TFTxrjHmT1 YkAIFuuAufPbM8a7N7Kg4 JUXSyGT19QUP0 gLK1NS42LX03M9IzEbskq GFibGU+PHRhYmxlIHdpZH RoPScxMDAlJyBzdHlsZT0 sLj4iNBLpYFTt qKozwFOoPkSev1uxUFCjN TaeJD2onHgvH2PzuYS8ZJ Txj7v9Kd64H19nZ4AloKN +ZWKvqNX0fWM2 nS6vRgJsDwB8MXvbS168W tWgjFBcVqsqf4dma7vbqP x1BsY6VOExmfHyjUohHEX 5b1AlIw76Y76n IHdpZHRoPSIxNSUiIHZhb Xmqpd9izU3lJi3+PGNvbC Y2tKL6pJ1lExWxIzM6FXx sH730KzJpgKBp Viofd3jct6iveUb2PxShO GYnmnGwtWanVCZ6t2IcHe 41G8HjeFwqh9CgXkl7gs6 1kFRdb5T5xUG9 E5OdYBMqzdthdSJujNmkN N5hJSVdyymqZLIsfT2uLD AuQ9x4KdAmBjP7INroC3G xycC2AJYxqJWy QFubHXJ0Y03vc4T4LBJbW FEaCKO4aTQ7cM4tqXcoyk ogbGVmdDsgdmVydGljYWw cYNvpO219CULp qEakJJZwuS5yJWTydPPzq PzzKP4aPAKqawilKqRSNe FKCSrrDGWWGuyEZPw6G9M ySqr1EPCkbFmh JP6rnMOoENjaRj8yaBwjh VhyJM4xCSErlscoHGEfoQ 5tXTOqbOYpvEpiDK8eICA zpcmlz157JjCb FZU7CXKnjXKjI9GcdC6tR aZwFPOdAJVpQ7SbeUYkLG zyN599WRzrYgH6VNDlueU kI5TzQWHhiZkj PqH2a6Z9Ov9aKF1dOW8oQ QS9CL07JM78dARtj9V8dV W6N2CbWUDqcgiwslkcdLE 4UYOwPJHrgX32 gXYiLHigVw6mg2J2v869I XYhPJOvfJ06Mq9lhVcqLU IssZIKgK5jcxlbe4njthe gIzAwMDAwMDt0 RWt8XMLpiYqeImBoUPX8X rP8SVC3lQEuaS6lyTkjvl fvgM1uZxz+NzMgWWVhcnM 8R9OsLgi4YBYt zHbtQT8tcDZhTMouZk4is BswnVkvUU0mRZWpkfyyVS NpjN3dTSLmvMBbbQxlTV7 eSWKcxckep538 QnOdDOS4KHEdtGAqF2Uxe G0yQmOfOWGuGCVjG2EjoT XdGAorS969VVbeQtX3IWQ ytbPoC5TmJWCl zViuQoW4e4S3Uv1ATTxuV G78TI63qTLty9A9cSR6O0 DwEIIdoksvjxtbfEQ0QWF uOGMyqE40pEEz KXdzRq0lg7X1m393AUQgV HSgzZ51Ke9efRouTERrbM CTnN6jyqhhr4iicpeqRuJ dZWPpZUb1XMj1 OSZclWyaDfHaAWX5EmA1O OX4bINiaZ8zfEcoapgryJ 9wOyc+WlSjnPYgcS3tTF5 6YL33H3NoRugj dGFibGU+PHRhYmxlIHdpZ HRoPScxMDAlJyBzdHlsZT 8tHg6iCLUiTDPxpEbsySH lGeLbi1haQVAa GAfcGP8hjLqeY3AvyWA9W QLte6n5Rp29Z22iS9CnjN A+SXIocNX5xHA2zY8gWyZ qRqV5JLelP333 EkZhxEEoJfzaz8bzn2qlc Ep7SkCuEWOnzfNlbHzcXE I2y9CwTo66C08wEKvtKOE oPSIyMCUiIHZh iJpibz5bfD2vFb0+PGNvb RI3bSY0rR0aJdXvWzY7VS ykW067YyPxuJQyWloxT75 oO1GhkKB+PHRy Nyh0BJRkqCdwCM5cfXXlL MncCh1rJHU8BiOnZvSnTX wzY4JtFERefyvrmnrdkGF 0KWQuMMMzvN60 Ly4zkWqpCd7zRPMjXRP6N JFteVZuH8TxqY9dOxOfIX RsEQUoL4NofTNqWAaiE79 7HZxeZyG7EKPq kdOjG8HvDMOwnYlhNeC1h 3S9Bp2VeVijrYSbLX5aWv RnNEr7N8ElJer9GFTejLq bVA3suBQzNCyi Fn9naZnmhWblHG9qRMJim acnv885JaWxz9dvXJNraI ZjRWveDBU5D04dk7Y8CKU uDWApAWU5oZA1 bI0dxFgcrxqdrHWovXmls wZonVunOVqsGLmyM673JK JvaWowWwQCAqh8K0MqQuo 6FEKrvGruSP8m bJKsCOhyVy4xjWtcaGjbT O7aCQTxizdwx710FbYox8 mtQLWiiGYiBIvkASZ7G51 bv1T5TDVxSQHu UBU5oTU1dU5ukJcfoyurs GVmdDsgdmVydGljYWwtYW hxD656CADewQhkOb1OLap 4Q9EjAon8JAPo eXizOA1kpUCbIXonWm1hq MhjlAyoYL5yOWRbmrido8 28GlVxa1nzHQKppNKrUOl yDBE6N73la4S8 HHWtHTHbTQP6oEQ8gS6sr GlnbjogbGVmdDsgdmVydG dlPOynCQsxW657TCJvhEh nPlBheWVyOjwv dGQ+RS52xx95F8PgZgihN gg7IUSgQVB4sGL1pV3wQP SkWHjyu7K7dYD2G3IbidR wle4tp3urUJGn ZTog (more content not included)... Normal [facility] POCT PT/INRon 04-05-2022 POCT INR 1.3 High .7-1.2 [facility] Comment on above: Performed By: #### 2 [id number] #### [facility] [address] [place] [address] POCT PT 15.0 second(s) Normal 8.0-15.0 [facility] Comment on above: Performed By: #### 2 [id number] #### [facility] [address] [place] [address] POCT INR Error Invalid Interpretation Code .7-1.2 [facility] Comment on above: Performed By: #### 1 [id number], [id number] #### [facility] [address] [place] [address] POCT PT Strip Error Invalid Interpretation Code 8.0-15.0 [facility] Comment on above: Performed By: #### 1 [id number], [id number], [id number] #### [facility] [address] [place] [address] POCT INR Error Invalid Interpretation Code .7-1.2 [facility] Comment on above: Performed By: #### 1 [id number], [id number], [id number] #### [facility] [address] [place] [address] POCT PT Strip Error Invalid Interpretation Code 8.0-15.0 [facility] Comment on above: Performed By: #### 1 [id number], [id number], [id number], [id number] #### [facility] [address] [place] [address] Physician Orderon 04-01-2022 Physician Order [id number]# 1.00CD:127 Normal [facility] Consent for Treatmenton Consent for Treatment [id number]#1 .00CD:127 Normal [facility] POCT PT/INRon 03-29-2022 POCT INR 1.3 High .7-1.2 [facility] Comment on above: Performed By: #### 2 [id number] #### [facility] [address] [place] [address] POCT PT 14.2 second(s) Normal 8.0-15.0 [facility] Comment on above: Performed By: #### 2 [id number] #### [facility] [address] [place] [address] [facility] echo transthoracicon [facility] echo transthoracic [address] [address] Echocardiogram Signed Patient: Fredrick Stroud MR#: [id number] 427 : 1950 Acct:[id number] Age/Sex: 71 / M ADM Date: 03/27/22 Loc: Room: Type: [facility] Attending Dr: Sejal Link [employer] Ordering Provider: Sejal Link APRN Date of Service: 03/27/22/ ECH/ECH echo transthoracic: Afib. SOB. HTN. Copies to: LUCY Hankins MD, [facility] BSA: 2.2 m2 BP: 125/82 mmHg [...] 03/27/22 1449 Signed By: Love Gaviria MD, [facility] 03/27/22 1557 Normal [facility] Free T4 (Free Thyroxine)on 0 03-27-2022 Free T4 [Mass/Vol] 1.01 ng/dL Normal 0.61-1.12 [facility] Comment on above: Order Comment: Reaso n for Exam Atrial fibrillation;Essential hypertension Performed By: #### C BC, CMP, HS TROP, BNP #### [facility] [address] TSH DL <= 0.005 mIU/L QnOrde red By: Sejal Link on 03-27-2022 TSH Qn 2.57 m[IU]/L 0.45-5.33 [facility] Thyroid Stimulating Hormoneo n 03-27-2022 TSH Qn 2.57 m[IU]/L Normal 0.45-5.33 [facility] Comment on above: Order Comment: Reaso n for Exam Atrial fibrillation;Essential hypertension Result Comment: PERF ORMED BY: [place] [address] PATHOLOGIST LADLE BUILDER EYAD HOWARD M.D. Performed By: #### C BC, CMP, HS TROP, BNP #### [facility] [address] [place] [address] [place] Thyroxine (T4) free [Mass/vo lume] in Serum or PlasmaOrdered By: Sejal Link on 03-27-2022 Free T4 [Mass/Vol] 1.01 ng/dL 0.61-1.12 [facility] Triiodothyronine (T3) Freeon 03-27-2022 Triiodothyronine (T3) Free 3.17 pg/mL Normal 2.50-3.90 [facility] Comment on above: Order Comment: Reaso n for Exam Atrial fibrillation;Essential hypertension Result Comment: PERF ORMED BY: [facility] [address] [place] [address] PATHOLOGIST LADLE BUILDER EYAD HOWARD M.D. Performed By: #### C BC, CMP, HS TROP, BNP #### [facility] [address] [place] [id number] [facility] Triiodothyronine (T3) Free [ Mass/volume] in Serum or PlasmaOrdered By: Sejal Link on 03-27-2022 Free T3 [Mass/Vol] 3.17 pg/mL 2.50-3.90 [facility] Office Visit (Cardiology)on 03-21-2022 Follow-up visit Diagnoses/Problems [...] Goal 2.0-3.0. Patient would like managed with [facility] Coumadin clinic Follow up in 2 months The provider reviewed the following test(s) and result(s) with the patient: ECG Chief Complaint FREDRICK STROUD is being seen for Rebceca Lacey. History of Present Illness Patient is [...] which include rate control with anticoagulation versus muslim of maintenance of sinus rhythm. After discussing [...] Signs Recorded: 21Mar2022 02:26PM Heart Rate67, Apical Spbtsgyh057, RUE, Kripfln711, LUE, Sitting Ygghdsoqq08, RUE, Flzltah16, LUE, Sitting He (more content not included)... Normal [facility] Albumin [Mass/volume] in Ser um or PlasmaOrdered By: Yo Blood on 03-11-2022 Albumin [Mass/Vol] 4.1 g/dL 3.2-5.5 [facility] B-Type Natriuretic Peptideon 03-11-2022 Natriuretic peptide B (Bld) [Mass/Vol] 101.0 pg/mL High 5-100 [facility] Comment on above: Result Comment: PERF ORMED BY: [place] [address] PATHOLOGIST LADLE BUILDER EYAD HOWARD M.D. Performed By: #### C BC, CMP, HS TROP, BNP #### [address] Basophils Auto (Bld) [#/Vol] Ordered By: Yo Blood on 03-11-2022 Basophils (Bld) [#/Vol] 0.0 10*3/uL 0.0-0.2 [facility] Basophils/100 WBC Auto (Bld) Ordered By: Yo Blood on 03-11-2022 Basophils/100 WBC (Bld) 1.1 % . [facility] COVID-19 Antigenon 3 COVID-19 Antigen [...] developed and its performance characteristic determined by [employer] and validated at [facility]. This test has not been [...] for SARS Antigen by OLY PERFORMED BY: [facility] [address] [place] [address] PATHOLOGIST LADLE BUILDER EYAD HOWARD M.D. [facility] Comment on above: Performed By: #### C OVID-19 GERTRUDE, SOFIANEG #### [address] [address] COVID-19 SOFIAOrdered By: Buster Blood on 03-11-2022 SARS-CoV+SARS-CoV-2 (COVID-19) Ag IA.rapid Ql (Resp) Negative Negative [facility] Comment on above: This is a duplicate Gertrude SARS Antigen (OLY) result to be used for statistical tracking purpose only. Complete Blood Count Auto Di ffon 03-11-2022 Basophils (Bld) [#/Vol] 0.0 10*3/uL Normal 0.0-0.2 [facility] Comment on above: Result Comment: PERF ORMED BY: [place] [address] PATHOLOGIST LADLE BUILDER EYAD HOWARD M.D. Performed By: #### C BC, CMP, HS TROP, BNP #### [address] Basophils/100 WBC (Bld) 1.1 % Normal . [facility] Comment on above: Performed By: #### C BC, CMP, HS TROP, BNP #### [address] Eosinophils (Bld) [#/Vol] 0.0 10*3/uL Normal 0.0-0.45 [facility] Comment on above: Performed By: #### C BC, CMP, HS TROP, BNP #### [address] Eosinophils/100 WBC (Bld) 0.4 % Normal . [facility] Comment on above: Performed By: #### C BC, CMP, HS TROP, BNP #### [address] Erythrocyte distribution width (RBC) [Ratio] 14.0 % Normal 12.0-14.8 [facility] Comment on above: Performed By: #### C BC, CMP, HS TROP, BNP #### [address] Hematocrit (Bld) [Volume fraction] 46.7 % Normal 38.8-50.0 [facility] Comment on above: Performed By: #### C BC, CMP, HS TROP, BNP #### [facility] [address] Hemoglobin (Bld) [Mass/Vol] 15.3 g/dL Normal 13.0-17.0 [facility] Comment on above: Performed By: #### C BC, CMP, HS TROP, BNP #### [facility] [address] Lymphocytes (Bld) [#/Vol] 1.1 10*3/uL Normal 1.00-4.8 [facility] Comment on above: Performed By: #### C BC, CMP, HS TROP, BNP #### [address] Lymphocytes/100 WBC (Bld) 29.0 % Normal . [facility] Comment on above: Performed By: #### C BC, CMP, HS TROP, BNP #### [address] MCH (RBC) [Entitic mass] 29.4 pg Normal 27.5-35.2 [facility] Comment on above: Performed By: #### C BC, CMP, HS TROP, BNP #### [address] MCV (RBC) [Entitic vol] 89.6 fL Normal 83.5-101 [facility] Comment on above: Performed By: #### C BC, CMP, HS TROP, BNP #### [address] Mean Corpuscular HGB Conc 32.8 g/dL Normal 32.5-35.6 [facility] Comment on above: Performed By: #### C BC, CMP, HS TROP, BNP #### [place] [address] [place] Monocytes (Bld) [#/Vol] 0.8 10*3/uL Normal 0.0-0.8 [facility] Comment on above: Performed By: #### C BC, CMP, HS TROP, BNP #### [address] Monocytes/100 WBC (Bld) 20.67 % High 0.00-20.00 [facility] Comment on above: Result Comment: For adults in ED, MDW > 20.0 may be associated with a higher risk of sepsis during the first 12 hrs of hospital admission Performed By: #### C BC, CMP, HS TROP, BNP #### [facility] [address] Monocytes/100 WBC (Bld) 20.9 % Normal . [facility] Comment on above: Performed By: #### C BC, CMP, HS TROP, BNP #### [facility] [address] Neutrophils (Bld) [#/Vol] 1.8 10*3/uL Normal 1.8-7.7 [facility] Comment on above: Performed By: #### C BC, CMP, HS TROP, BNP #### [facility] [address] Neutrophils/100 WBC (Bld) 48.6 % Normal . [facility] Comment on above: Performed By: #### C BC, CMP, HS TROP, BNP #### [facility] [address] [place] [address] [place] NRBC% 0.2 /100{WBC} Normal 0-0.5 [facility] Comment on above: Performed By: #### C BC, CMP, HS TROP, BNP #### [facility] [address] [place] [address] [place] Platelet mean volume (Bld) [Entitic vol] 8.5 fL Normal 6.6-10.1 [facility] Comment on above: Performed By: #### C BC, CMP, HS TROP, BNP #### [facility] [address] [place] [address] [place] Platelets (Bld) [#/Vol] 197 10*3/uL Normal 150-450 [facility] Comment on above: Performed By: #### C BC, CMP, HS TROP, BNP #### [facility] [address] [place] [address] [place] RBC (Bld) [#/Vol] 5.21 10*6/uL Normal 3.90-5.60 [facility] Comment on above: Performed By: #### C BC, CMP, HS TROP, BNP #### [facility] [address] [place] [address] WBC (Bld) [#/Vol] 3.7 10*3/uL Low 4.1-10.5 [facility] Comment on above: Performed By: #### C BC, CMP, HS TROP, BNP #### [address] Comprehensive Metabolic Pane rigo 03-11-2022 Albumin [Mass/Vol] 4.1 g/dL Normal 3.2-5.5 [facility] Comment on above: Performed By: #### C BC, CMP, HS TROP, BNP #### [address] Albumin/Globulin [Mass ratio] 1.5 {ratio} Normal [facility] Comment on above: Performed By: #### C BC, CMP, HS TROP, BNP #### [address] ALP [Catalytic activity/Vol] 79 U/L Normal 32-92 [facility] Comment on above: Performed By: #### C BC, CMP, HS TROP, BNP #### [address] ALT [Catalytic activity/Vol] 23 U/L Normal 10-60 [facility] Comment on above: Performed By: #### C BC, CMP, HS TROP, BNP #### [address] Anion gap [Moles/Vol] 13.7 mmol/L Normal 6.0-15.0 [facility] Comment on above: Performed By: #### C BC, CMP, HS TROP, BNP #### [address] AST [Catalytic activity/Vol] 32 U/L Normal 10-42 [facility] Comment on above: Performed By: #### C BC, CMP, HS TROP, BNP #### [facility] [address] Bilirubin [Mass/Vol] 0.6 mg/dL Normal 0.3-1.2 [facility] Comment on above: Performed By: #### C BC, CMP, HS TROP, BNP #### [facility] [address] Calcium [Mass/Vol] 9.2 mg/dL Normal 8.2-10.2 [facility] Comment on above: Performed By: #### C BC, CMP, HS TROP, BNP #### [facility] [address] Chloride [Moles/Vol] 98 mmol/L Normal 95-114 [facility] Comment on above: Performed By: #### C BC, CMP, HS TROP, BNP #### [facility] [address] CO2 [Moles/Vol] 29.0 mmol/L Normal 22.0-30.0 [facility] Comment on above: Performed By: #### C BC, CMP, HS TROP, BNP #### [facility] [address] [place] [address] [place] Creatinine [Mass/Vol] 0.86 mg/dL Normal 0.64-1.27 [facility] Comment on above: Performed By: #### C BC, CMP, HS TROP, BNP #### [facility] [address] [place] [address] [place] Creatinine Clr Calc Pharmacy 91.63 [facility] Comment on above: Result Comment: PERF ORMED BY: [place] [address] PATHOLOGIST LADLE BUILDER EYAD HOWARD M.D. Performed By: #### C BC, CMP, HS TROP, BNP #### [facility] [address] [place] [address] Estimated GFR ( Jessica > 60 Normal [facility] Comment on above: Result Comment: GFR estimated reference range: According to KDOQI guidelines, <60 ml/min/1.73m2 is sufficient to diagnose a patient with chronic kidney disease. Performed By: #### C BC, CMP, HS TROP, BNP #### [facility] [address] Estimated GFR (Non- Am > 60 Normal [facility] Comment on above: Performed By: #### C BC, CMP, HS TROP, BNP #### [facility] [address] Globulin (S) [Mass/Vol] 2.8 g/dL Normal [facility] Comment on above: Performed By: #### C BC, CMP, HS TROP, BNP #### [facility] [address] Glucose [Mass/Vol] 91 mg/dL Normal 70-100 [facility] Comment on above: Result Comment: [place] Glucose Reference Range is dependent on time and content of last meal. Glucose of more than 200 mg/dL in a nonstressed, ambulatory subject supports the diagnosis of Diabetes Mellitus. ADA recommended reference range Performed By: #### C BC, CMP, HS TROP, BNP #### [facility] [address] Potassium [Moles/Vol] 3.7 mmol/L Normal 3.5-5.1 [facility] Comment on above: Performed By: #### C BC, CMP, HS TROP, BNP #### [facility] [address] [place] [address] [place] Protein [Mass/Vol] 6.9 g/dL Normal 6.1-7.9 [facility] Comment on above: Performed By: #### C BC, CMP, HS TROP, BNP #### [facility] [address] [place] [address] [place] Sodium [Moles/Vol] 137 mmol/L Normal 136-146 [facility] Comment on above: Performed By: #### C BC, CMP, HS TROP, BNP #### [facility] [address] [place] [address] [place] Urea nitrogen [Mass/Vol] 10 mg/dL Normal 9-23 [facility] Comment on above: Performed By: #### C BC, CMP, HS TROP, BNP #### [facility] [address] [place] [id number] [place] Creatinine and Glomerular fi ltration rate.predicted panel (S/P/Bld)Ordered By: Yo Blood on 03-11-2022 Creatinine [Mass/Vol] 0.86 mg/dL 0.64-1.27 [facility] ECG 12 lead ECGon 03-11-2022 ECG 12 lead ECG [facility] [place] [address] Electrocardiograph Report Signed Patient: Fredrick Stroud MR#: [id number] 427 : 1950 Acct:[id number] Age/Sex: 71 / M ADM Date: 03/11/22 [...] voltage QRS Confirmed by Yo BLOOD DO ([id number]) on 03/11/2022 9:03:33 PM Referred By: Electronically Signed By:Yo BLOOD DO Transcribed By: MUS Signed By Yo Blood DO 0 03/11/222102 Normal [facility] ECG 12 lead ECG [facility] [address] [place] [id number] Electrocardiograph Report Signed Patient: Fredrick Stroud MR#: [id number] 427 : 1950 Acct:[id number] Age/Sex: 71 / M ADM Date: 03/11/22 [...] voltage QRS Confirmed by Yo BLOOD DO ([id number]) on 03/11/2022 7:52:28 PM Referred By: Electronically Signed By:Yo BLOOD DO Transcribed By: MUS Signed By Yo Blood DO 0 03/11/221951 Normal [facility] Eosinophils Auto (Bld) [#/Vo l]Ordered By: Yo Blood on 03-11-2022 Eosinophils (Bld) [#/Vol] 0.0 10*3/uL 0.0-0.45 [facility] Eosinophils/100 WBC Auto (Bl d)Ordered By: Yo Blood on 03-11-2022 Eosinophils/100 WBC (Bld) 0.4 % . [facility] Erythrocyte distribution wid th Auto (RBC) [Ratio]Ordered By: Yo Blood on 03-11-2022 Erythrocyte distribution width (RBC) [Ratio] 14.0 % 12.0-14.8 [facility] Estimated glomerular filtrat ion rate (GFR) non- AmericanOrdered By: Yo Blood on 03-11-2022 GFR/1.73 sq M.predicted among non-blacks MDRD (S/P/Bld) [Vol rate/Area] > 60 mL/Min [facility] Globulin Calc (S) [Mass/Vol] Ordered By: Yo Blood on 03-11-2022 Globulin (S) [Mass/Vol] 2.8 g/dL [facility] Hematocrit Auto (Bld) [Volum e fraction]Ordered By: Yo Blood on 03-11-2022 Hematocrit (Bld) [Volume fraction] 46.7 % 38.8-50.0 [facility] Hemoglobin [Mass/volume] in BloodOrdered By: Yo Blood on 03-11-2022 Hemoglobin (Bld) [Mass/Vol] 15.3 g/dL 13.0-17.0 [facility] Laboratory - Chemistry and C hemistry - challengeOrdered By: Yo Blood on 03-11-2022 Natriuretic peptide B (Bld) [Mass/Vol] 101.0 pg/mL 5-100 [facility] Leukocytes [#/volume] correc vlad for nucleated erythrocytes in Blood by Automated counOrdered By: Yo Blood on 03-11-2022 WBC corrected for nucl RBC Auto (Bld) [#/Vol] 3.7 10*3/uL 4.1-10.5 [facility] Lymphocytes Auto (Bld) [#/Vo l]Ordered By: Yo Blood on 03-11-2022 Lymphocytes (Bld) [#/Vol] 1.1 10*3/uL 1.00-4.8 [facility] Lymphocytes/100 WBC Auto (Bl d)Ordered By: Yo Blood on 03-11-2022 Lymphocytes/100 WBC (Bld) 29.0 % . [facility] MCH Auto (RBC) [Entitic mass ]Ordered By: Yo Blood on 03-11-2022 MCH (RBC) [Entitic mass] 29.4 pg 27.5-35.2 [facility] MCHC Auto (RBC) [Mass/Vol]Or dered By: Yo Blood on 03-11-2022 MCHC (RBC) [Mass/Vol] 32.8 g/dL 32.5-35.6 [facility] MCV Auto (RBC) [Entitic vol] Ordered By: Yo Blood on 03-11-2022 MCV (RBC) [Entitic vol] 89.6 fL 83.5-101 [facility] Monocyte distribution width [Entitic volume] in Blood by AutomatedOrdered By: Yo Blood on 03-11-2022 Monocyte distribution width Auto (Bld) [Entitic vol] 20.67 % 0.00-20.00 [facility] Comment on above: For adults in ED, MD W > 20.0 may be associated with a higher risk of sepsis during the first 12 hrs of hospital admission Monocytes Auto (Bld) [#/Vol] Ordered By: Yo Blood on 03-11-2022 Monocytes (Bld) [#/Vol] 0.8 10*3/uL 0.0-0.8 [facility] Monocytes/100 WBC Auto (Bld) Ordered By: Yo Blood on 03-11-2022 Monocytes/100 WBC (Bld) 20.9 % . [facility] Neutrophils Auto (Bld) [#/Vo l]Ordered By: Yo Blood on 03-11-2022 Neutrophils (Bld) [#/Vol] 1.8 10*3/uL 1.8-7.7 [facility] Neutrophils/100 WBC Auto (Bl d)Ordered By: Yo Blood on 03-11-2022 Neutrophils/100 WBC (Bld) 48.6 % . [facility] No Panel InformationOrdered By: Yo Blood on 03-11-2022 SARS Antigen (LFIA) [facility] Estimated GFR () > 60 mL/Min [facility] Comment on above: GFR estimated refere nce range: According to KDOQI guidelines, <60 ml/min/1.73m2 is sufficient to diagnose a patient with chronic kidney disease. Pharmacy Creatinine Clearance (Chem 91.63 [facility] Nucleated erythrocytes [Pres ence] in Blood by Automated countOrdered By: Yo Blood on 03-11-2022 Nucleated RBC Auto Ql (Bld) 0.2 /100{WBC} 0-0.5 [facility] Platelet mean volume Auto (B ld) [Entitic vol]Ordered By: Yo Blood on 03-11-2022 Platelet mean volume (Bld) [Entitic vol] 8.5 fL 6.6-10.1 [facility] Platelets Auto (Bld) [#/Vol] Ordered By: Yo Blood on 03-11-2022 Platelets (Bld) [#/Vol] 197 10*3/uL 150-450 [facility] Protein [Mass/volume] in Ser um or PlasmaOrdered By: Yo Blood on 03-11-2022 Protein [Mass/Vol] 6.9 g/dL 6.1-7.9 [facility] RBC Auto (Bld) [#/Vol]Ordere d By: Yo Blood on 03-11-2022 RBC (Bld) [#/Vol] 5.21 10*6/uL 3.90-5.60 [facility] Serum or plasma alanine sullivan otransferase measurement without P-5'-P (enzymatic activiOrdered By: Yo Blood on 01-16-2023 ALT No additional P-5'-P [Catalytic activity/Vol] 23 U/L 10-60 [facility] Serum or plasma albumin/glob ulin mass ratioOrdered By: Yo Blood on 03-11-2022 Albumin/Globulin [Mass ratio] 1.5 {ratio} [facility] Serum or plasma alkaline faviola sphatase measurement (enzymatic activity/volume)Ordered By: Yo Blood on 03-11-2022 ALP [Catalytic activity/Vol] 79 U/L 32-92 [facility] Serum or plasma anion gap de terminationOrdered By: Yo Blood on 03-11-2022 Anion gap [Moles/Vol] 13.7 mmol/L 6.0-15.0 [facility] Serum or plasma aspartate am inotransferase measurement (enzymatic activity/volume)Ordered By: Yo Blood on 03-11-2022 AST [Catalytic activity/Vol] 32 U/L 10-42 [facility] Serum or plasma calcium echo urement (mass/volume)Ordered By: Yo Blood on 03-11-2022 Calcium [Mass/Vol] 9.2 mg/dL 8.2-10.2 [facility] Serum or plasma chloride tessie surement (moles/volume)Ordered By: Yo Blood on 03-11-2022 Chloride [Moles/Vol] 98 mmol/L 95-114 [facility] Serum or plasma glucose echo urement (mass/volume)Ordered By: Yo Blood on 03-11-2022 Glucose [Mass/Vol] 91 mg/dL 70-100 [facility] Comment on above: ADA recommended refe rence rangeRandom Glucose Reference Range is dependent on time and content of last meal. Glucose of more than 200 mg/dL in a nonstressed, ambulatory subject supports the diagnosis of Diabetes Mellitus. Serum or plasma potassium me asurement (moles/volume)Ordered By: Yo Blood on 03-11-2022 Potassium [Moles/Vol] 3.7 mmol/L 3.5-5.1 [facility] Serum or plasma sodium measu rement (moles/volume)Ordered By: Yo Blood on 03-11-2022 Sodium [Moles/Vol] 137 mmol/L 136-146 [facility] Serum or plasma total biliru bin measurement (mass/volume)Ordered By: Yo Blood on 03-11-2022 Bilirubin [Mass/Vol] 0.6 mg/dL 0.3-1.2 [facility] Serum or plasma total carbon dioxide measurement (moles/volume)Ordered By: Yo Blood on 03-11-2022 CO2 [Moles/Vol] 29.0 mmol/L 22.0-30.0 [facility] Serum or plasma urea nitroge n measurement (mass/volume)Ordered By: Yo Blood on 03-11-2022 Urea nitrogen [Mass/Vol] 10 mg/dL 11-16 [facility] Gertrude Ag Negativeon 03-11-19 Gertrude Ag Negative Negative Normal Negative [facility] Comment on above: Result Comment: This is a duplicate Gertrude SARS Antigen (OLY) result to be used for statistical tracking purpose only. PERFORMED BY: [place] [address] PATHOLOGIST [employer] EYAD HOWARD M.D. Performed By: #### C OVID-19 GERTRUDE, SOFIANEG #### [facility] [address] [place] [address] [place] Troponin I High Sensitivityo n 03-11-2022 Troponin I High Sensitivity 9 pg/mL Normal 0-20 [facility] Comment on above: Result Comment: PERF ORMED BY: [place] [address] PATHOLOGIST [employer]ADLE BUILDER EYAD HOWARD M.D. Performed By: #### C BC, CMP, HS TROP, BNP #### [facility] [address] [place] [address] [place] Troponin I.cardiac [Mass/vol ume] in Serum or Plasma by High sensitivity methodOrdered By: Yo Blood on 03-11-2022 Troponin I.cardiac High sensitivity method [Mass/Vol] 9 pg/mL 0-20 [facility] WBC Auto (Bld) [#/Vol]Ordere d By: Yo Blood on 03-11-2022 WBC (Bld) [#/Vol] 3.7 10*3/uL 4.1-10.5 [facility] XR chest 2V*on 03-11-2022 XR chest 2V* [facility] Main [address] [address] XRay Report Signed Patient: Fredrick Stroud MR#: [id number] 427 : 1950 Acct:[id number] Age/Sex: 71 / M ADM Date: 03/11/22 [...] Ga Dorsey M.D.03/11/2022 1:42 PM Dictation Location: [place] [address] Transcribed By: [facility] 03/11/22 1342 Dictated By: Ga Dorsey II, MD 03/11/22 1339 Signed By: 03/11/22 1342 Normal [facility] XR hip LT min 2V(w/wo pelvis )*on 09-26-2021 XR hip LT min 2V(w/wo pelvis)* [facility] Main [address] [address] XRay Report Signed Patient: Fredrick Stroud MR#: [id number] 427 : 1950 Acct:[id number] Age/Sex: 70 / M ADM Date: 09/26/21 [...] Ariana Tanner M.D.09/26/2021 3:27 PM Dictation Location: [place] [address] Transcribed By: [facility] 09/26/21 152 Dictated By: Ariana Tanner MD 09/26/21 1526 Signed By: 09/26/21 1527 Normal [facility] XR hip LT min 2V(w/wo pelvis )*on 08-15-2021 XR hip LT min 2V(w/wo pelvis)* [facility] Main [place] [address] [place] [address] XRay Report Signed Patient: Fredrick Stroud MR#: [id number] 427 : 1950 Acct:[id number] Age/Sex: 70 / M ADM Date: 08/15/21 Loc: [facility] Room: Type: [facility] Attending Dr: Shahriar Dhillon II, MD [...] 08/15/21 1439 Signed By: 08/15/21 1440 Normal [facility] XR hip LT min 2V(w/wo pelvis)* [facility] [employer] Other XR hip LT min 2V(w/wo pelvis)* [facility] Main [place] [employer] Other XR hip LT min 2V(w/wo pelvis)* [address] [place] [address] [employer] Other XR hip LT min 2V(w/wo pelvis)* [place] [id number] [employer] Other XR hip LT min 2V(w/wo pelvis)* XRay Report [employer] Other XR hip LT min 2V(w/wo pelvis)* Signed [employer] Other XR hip LT min 2V(w/wo pelvis)* Patient: Fredrick Stroud MR#: [id number] [employer] Other XR hip LT min 2V(w/wo pelvis)* 427 [employer] Other XR hip LT min 2V(w/wo pelvis)* : 1950 Acct:[id number] [employer] Other XR hip LT min 2V(w/wo pelvis)* Age/Sex: 70 / M ADM Date: 08/15/21 [employer] Other XR hip LT min 2V(w/wo pelvis)* Loc: [facility] Room: Type: [facility] [employer] Other XR hip LT min 2V(w/wo pelvis)* Attending Dr: Shahriar Dhillon II, MD [employer] Other XR hip LT min 2V(w/wo pelvis)* Copies to: Shahriar Dhillon MD [employer] Other XR hip LT min 2V(w/wo pelvis)* Ordering Provider: Shahriar Dhillon MD [employer] Other XR hip LT min 2V(w/wo pelvis)* Date of Service: 08/15/21 [employer] Other XR hip LT min 2V(w/wo pelvis)* XR/XR hip LT min 2V(w/wo pelvis)*: Aftercare following joint replacement [employer] Other XR hip LT min 2V(w/wo pelvis)* surgery [employer] Other XR hip LT min 2V(w/wo pelvis)* LEFT HIP - 2 views: 1 view pelvis [employer] Other XR hip LT min 2V(w/wo pelvis)* CLINICAL HISTORY: Follow-up left GEOVANI [employer] Other XR hip LT min 2V(w/wo pelvis)* COMPARISON: Hip series 07/02/2021 [employer] Other XR hip LT min 2V(w/wo pelvis)* FINDINGS: 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 Prostate radiation [employer] Other XR hip LT min 2V(w/wo pelvis)* seeds. Mild degenerative changes right hip. [employer] Other XR hip LT min 2V(w/wo pelvis)* XR/XR hip LT min 2V(w/wo pelvis)* [employer] Other XR hip LT min 2V(w/wo pelvis)* IMPRESSION: [employer] Other XR hip LT min 2V(w/wo pelvis)* NO EVIDENCE OF HARDWARE COMPLICATION. [employer] Other XR hip LT min 2V(w/wo pelvis)* Impression dictated by: Dandy Stevenson Jr., Namita08/15/2021 2:40 PM [employer] Other XR hip LT min 2V(w/wo pelvis)* Dictation Location: [facility] [employer] Other XR hip LT min 2V(w/wo pelvis)* Transcribed By: PWS 08/15/21 1440 [employer] Other XR hip LT min 2V(w/wo pelvis)* Dictated By: Dandy Stevenson Jr, DO 08/15/21 1439 [employer] Other XR hip LT min 2V(w/wo pelvis)* Signed By: [employer] Other XR hip LT min 2V(w/wo pelvis)* 08/15/21 1440 [employer] Other Basic Metabolic Panelon 05 Calcium [Mass/Vol] 8.6 mg/dL Normal 8.2-10.2 [facility] Comment on above: Performed By: #### C BC, BMP #### [facility] [address] [place] [address] [place] Chloride [Moles/Vol] 102 mmol/L Normal 95-114 [facility] Comment on above: Performed By: #### C BC, BMP #### [facility] [address] [place] [id number] [place] CO2 [Moles/Vol] 25.5 mmol/L Normal 22.0-30.0 [facility] Comment on above: Performed By: #### C BC, BMP #### [facility] [address] [place] [address] [place] Creatinine [Mass/Vol] 0.96 mg/dL Normal 0.64-1.27 [facility] Comment on above: Performed By: #### C BC, BMP #### [facility] [address] [place] [address] [place] Creatinine Clr Calc Pharmacy 81.73 [facility] Comment on above: Result Comment: PERF ORMED BY: [place] [address] PATHOLOGIST [employer]LE BUILDER EYAD HOWARD M.D. Performed By: #### C BC, BMP #### [address] Estimated GFR ( Jessica > 60 [facility] Comment on above: Result Comment: GFR estimated reference range: According to KDOQI guidelines, <60 ml/min/1.73m2 is sufficient to diagnose a patient with chronic kidney disease. Performed By: #### C BC, BMP #### [address] Estimated GFR (Non- Am > 60 [facility] Comment on above: Performed By: #### C BC, BMP #### [address] Glucose [Mass/Vol] 167 mg/dL High 70-100 [facility] Comment on above: Result Comment: [place] Glucose Reference Range is dependent on time and content of last meal. Glucose of more than 200 mg/dL in a nonstressed, ambulatory subject supports the diagnosis of Diabetes Mellitus. ADA recommended reference range Performed By: #### C BC, BMP #### [address] Potassium [Moles/Vol] 4.4 mmol/L Normal 3.5-5.1 [facility] Comment on above: Performed By: #### C BC, BMP #### [place] [address] [place] Sodium [Moles/Vol] 135 mmol/L Low 136-146 [facility] Comment on above: Performed By: #### C BC, BMP #### [address] Urea nitrogen [Mass/Vol] 18 mg/dL Normal 9-23 [facility] Comment on above: Performed By: #### C BC, BMP #### [address] Complete Blood Count Auto Di ffon 07-03-2021 Basophils (Bld) [#/Vol] 0.0 10*3/uL Normal 0.0-0.2 [facility] Comment on above: Result Comment: PERF ORMED BY: [place] [address] PATHOLOGIST [employer]ADLE BUILDER EYAD HOWARD M.D. Performed By: #### C BC, BMP #### [address] Basophils/100 WBC (Bld) 0.3 % Normal . [facility] Comment on above: Performed By: #### C BC, BMP #### [address] Eosinophils (Bld) [#/Vol] 0.0 10*3/uL Normal 0.0-0.45 [facility] Comment on above: Performed By: #### C BC, BMP #### [address] Eosinophils/100 WBC (Bld) 0.0 % Normal . [facility] Comment on above: Performed By: #### C BC, BMP #### [address] Erythrocyte distribution width (RBC) [Ratio] 14.2 % Normal 12.0-14.8 [facility] Comment on above: Performed By: #### C BC, BMP #### [address] Hematocrit (Bld) [Volume fraction] 32.9 % Low 38.8-50.0 [facility] Comment on above: Performed By: #### C BC, BMP #### [place] [address] [place] Hemoglobin (Bld) [Mass/Vol] 11.2 g/dL Low 13.0-17.0 [facility] Comment on above: Performed By: #### C BC, BMP #### [address] Lymphocytes (Bld) [#/Vol] 0.6 10*3/uL Low 1.00-4.8 [facility] Comment on above: Performed By: #### C BC, BMP #### [facility] [address] [place] [address] [place] Lymphocytes/100 WBC (Bld) 4.7 % Normal . [facility] Comment on above: Performed By: #### C BC, BMP #### [facility] [address] MCH (RBC) [Entitic mass] 30.1 pg Normal 27.5-35.2 [facility] Comment on above: Performed By: #### C BC, BMP #### [facility] [address] MCV (RBC) [Entitic vol] 88.7 fL Normal 83.5-101 [facility] Comment on above: Performed By: #### C BC, BMP #### [address] Mean Corpuscular HGB Conc 33.9 g/dL Normal 32.5-35.6 [facility] Comment on above: Performed By: #### C BC, BMP #### [facility] [address] [place] [address] [place] Monocytes (Bld) [#/Vol] 1.0 10*3/uL High 0.0-0.8 [facility] Comment on above: Performed By: #### C BC, BMP #### [facility] [address] [place] [address] [place] Monocytes/100 WBC (Bld) 8.3 % Normal . [facility] Comment on above: Performed By: #### C BC, BMP #### [facility] [address] [place] [address] [place] Neutrophils (Bld) [#/Vol] 10.9 10*3/uL High 1.8-7.7 [facility] Comment on above: Performed By: #### C BC, BMP #### [facility] [address] [place] [address] [place] Neutrophils/100 WBC (Bld) 86.7 % Normal . [facility] Comment on above: Performed By: #### C BC, BMP #### [facility] [address] Nucleated RBC/100 WBC (Bld) [Ratio] 0.0 % Normal 0-0.5 [facility] Comment on above: Performed By: #### C BC, BMP #### [facility] [address] Platelet mean volume (Bld) [Entitic vol] 8.4 fL Normal 6.6-10.1 [facility] Comment on above: Performed By: #### C BC, BMP #### [facility] [address] Platelets (Bld) [#/Vol] 210 10*3/uL Normal 150-450 [facility] Comment on above: Performed By: #### C BC, BMP #### [facility] [address] RBC (Bld) [#/Vol] 3.71 10*6/uL Low 3.90-5.60 [facility] Comment on above: Performed By: #### C BC, BMP #### [facility] [address] WBC (Bld) [#/Vol] 12.5 10*3/uL High 4.5-11.0 [facility] Comment on above: Performed By: #### C AKHIL, BMP #### [address] ECG 12 lead ECGon 07-02-2021 ECG 12 lead ECG [facility] Main [place] [address] [place] [address] Electrocardiograph Report Signed Patient: Fredrick Stroud MR#: [id number] 427 : 1950 Acct:[id number] Age/Sex: 70 / M ADM Date: 07/02/21 Loc: [place] Room: Type: [facility] Attending Dr: Shahriar Dhillon II, MD [...] Signed By Moreno Rosario DO 07/02 1306 [facility] [place] 07-02-2021 L - -------- Specimen: [id number] Received: 07/02/21 Status: LORETTA Solis Num: [id number] Spec Type: Surgical Subm Dr: Shahriar Dhillon MD Tissues: A Femoral Head - Other than Fracture (L HIP) Procedures: HE Stain, Gross/Micro L3, Decal -------- Patient Age/Sex Location Account Attending Physician -------- Fredrick Stroud 70/M 4N [id number] Shahriar Dhillon MD -------- SPEC NUM: [id number] RECD: 07/02/21 STATUS: LORETTA SOLIS NUM: [id number] MILY: 07/02/21 DR: Shahriar Dhillon MD ENTERED: [...] bone fragments and scant soft tissue. A communications representative section of bone, following formalin fixation and decalcification is submitted in cassette A 1. ([email or web address]/[id number]) -------- Specimen: [id number] Received: 07/02/21 Status: LORETTA Solis Num: [id number] Spec Type: Surgical Subm Dr: Shahriar Dhillon MD Tissues: A Femoral Head - Other than Fracture (L HIP) Procedures: HE Stain, Gross/Micro L3, Decal -------- Patient: Fredrick Stroud [id number] (Continued) -------- Specimen: Received: 07/02/21 (Continued) Signed (signature on file) Kaycee Curry MD 07/04/21 1625 -------- Specimen: Received: 07/02/21 Status: LORETTA Solis Num: [id number] Spec Type: Surgical Subm Dr: Shahriar Dhillon MD Tissues: A Femoral Head - Other than Fracture (L HIP) Procedures: HE Stain, Gross/Micro L3, Decal -------- Patient: Fredrick Stroud [id number] (Continued) -------- Specimen: [id number] Received: 07/02/21 (Continued) Microscopic Description One glass slide with H E stained material has been examined. The microscopic findings support the above pathologic diagnosis. CPT Codes 75174, 63363 -------- -------- Specimen: [id number] Received: 07/02/21 Status: LORETTA Solis Num: [id number] Spec Type: Surgical Subm Dr: Shahriar Dhillon MD Tissues: A Femoral Head - Other than Fracture (L HIP) Procedures: HE Stain, Gross/Micro L3, Decal -------- Patient: Fredrick Stroud [id number] (Continued) -------- Signed (signature on file) Kaycee Curry MD 07/04/21 1625 [facility] XR hip LT 1Von 07-02-2021 XR hip LT 1V [place] [address] XRay Report Signed Patient: Fredrick Stroud MR#: [id number] 427 : 1950 Acct:[id number] Age/Sex: 70 / M ADM Date: 07/02/21 Loc: [place] Room: Type: [facility] Attending Dr: Shahriar Dhillon II, MD [...] Stevenson Jr, DO 07/02/21922 Signed By: 07/02/21925 [facility] XR low pelvis w/LT x-table h ipon 07-02-2021 XR low pelvis w/LT x-table hip [facility] [place] [address] XRay Report Signed Patient: Fredrick Stroud MR#: [id number] 427 : 1950 Acct:[id number] Age/Sex: 70 / M ADM Date: 07/02/21 Loc: [place] Room: Type: [facility] Attending Dr: Shahriar Dhillon II, MD [...] Tanner MD 07/02/21 120 Signed By: 07/02/211204 [facility] SARS-CoV-2 (COVID-19) RNA FABI+probe Ql (Unsp spec) Negative Normal Negative [facility] Comment on above: Order Comment: 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 This test has not been [...] is terminated or revoked sooner. PERFORMED BY: [place] [address] PATHOLOGIST [employer]ADLE BUILDER EYAD HOWARD M.D. Performed By: #### C BC, CMP, HS TROP, BNP #### [place] [id number] [facility] Basic Metabolic Panelon 04-2 Calcium [Mass/Vol] 9.4 mg/dL Normal 8.2-10.2 [facility] Comment on above: Result Comment: PERF ORMED BY: [place] [address] PATHOLOGIST [employer] BUILDER EYAD HOWARD M.D. Performed By: #### C OVID-19 GERTRUDE, SOFIANEG #### [place] [id number] [facility] Chloride [Moles/Vol] 103 mmol/L Normal 95-114 [facility] Comment on above: Performed By: #### C OVID-19 GERTRUDE, SOFIANEG #### [place] [id number] [place] CO2 [Moles/Vol] 26.4 mmol/L Normal 22.0-30.0 [facility] Comment on above: Performed By: #### C OVID-19 GERTRUDE SOFIANEG #### [facility] [address] Creatinine [Mass/Vol] 0.89 mg/dL Normal 0.64-1.27 [facility] Comment on above: Performed By: #### C OVID-19 GERTRUDE, SOFIANEG #### [facility] [address] Estimated GFR ( Jessica > 60 Normal [facility] Comment on above: Result Comment: GFR estimated reference range: According to KDOQI guidelines, <60 ml/min/1.73m2 is sufficient to diagnose a patient with chronic kidney disease. Performed By: #### C OVID-19 GERTRUDE SOFIANEG #### [facility] [address] [place] [address] [place] Estimated GFR (Non- Am > 60 [facility] Comment on above: Performed By: #### C OVID-19 GERTRUDE, SOFIANEG #### [facility] [address] Glucose [Mass/Vol] 101 mg/dL High 70-100 [facility] Comment on above: Result Comment: [facility] Glucose Reference Range is dependent on time and content of last meal. Glucose of more than 200 mg/dL in a nonstressed, ambulatory subject supports the diagnosis of Diabetes Mellitus. ADA recommended reference range Performed By: #### C OVID-19 GERTRUDE SOFIANEG #### [facility] [address] [place] [address] [place] Potassium [Moles/Vol] 4.4 mmol/L Normal 3.5-5.1 [facility] Comment on above: Performed By: #### C OVID-19 GERTRUDE, SOFIANEG #### [facility] [address] [place] [address] [place] Sodium [Moles/Vol] 139 mmol/L Normal 136-146 [facility] Comment on above: Performed By: #### C OVID-19 GERTRUDE, SOFIANEG #### [facility] [address] Urea nitrogen [Mass/Vol] 23 mg/dL Normal 9-23 [facility] Comment on above: Performed By: #### C OVID-19 GERTRUDE, SOFIANEG #### [facility] [address] Complete Blood Count Auto Di ffon 06-18-2021 Basophils (Bld) [#/Vol] 0.0 10*3/uL Normal 0.0-0.2 [facility] Comment on above: Result Comment: PERF ORMED BY: [place] [address] PATHOLOGIST [employer]ADLE BUILDER EYAD HOWARD M.D. Performed By: #### C OVID-19 GERTRUDE, SOFIANEG #### [address] Basophils/100 WBC (Bld) 0.9 % Normal . [facility] Comment on above: Performed By: #### C OVID-19 GERTRUDE, SOFIANEG #### [facility] [address] [place] [address] [place] Eosinophils (Bld) [#/Vol] 0.1 10*3/uL Normal 0.0-0.45 [facility] Comment on above: Performed By: #### C OVID-19 GERTRUDE, SOFIANEG #### [address] Eosinophils/100 WBC (Bld) 1.4 % Normal . [facility] Comment on above: Performed By: #### C OVID-19 GERTRUDE, SOFIANEG #### [facility] [address] Erythrocyte distribution width (RBC) [Ratio] 14.0 % Normal 12.0-14.8 [facility] Comment on above: Performed By: #### C OVID-19 GERTRUDE, SOFIANEG #### [facility] [address] [place] [address] Hematocrit (Bld) [Volume fraction] 41.8 % Normal 38.8-50.0 [facility] Comment on above: Performed By: #### C OVID-19 GERTRUDE, SOFIANEG #### [facility] [address] [place] [address] Hemoglobin (Bld) [Mass/Vol] 14.2 g/dL Normal 13.0-17.0 [facility] Comment on above: Performed By: #### C OVID-19 GERTRUDE, SOFIANEG #### [address] Lymphocytes (Bld) [#/Vol] 1.1 10*3/uL Normal 1.00-4.8 [facility] Comment on above: Performed By: #### C OVID-19 GERTRUDE, SOFIANEG #### [address] Lymphocytes/100 WBC (Bld) 22.7 % Normal . [facility] Comment on above: Performed By: #### C OVID-19 GERTRUDE, SOFIANEG #### [address] MCH (RBC) [Entitic mass] 30.4 pg Normal 27.5-35.2 [facility] Comment on above: Performed By: #### C OVID-19 GERTRUDE, SOFIANEG #### [address] MCV (RBC) [Entitic vol] 89.7 fL Normal 83.5-101 [facility] Comment on above: Performed By: #### C OVID-19 GERTRUDE, SOFIANEG #### [facility] [address] [place] [address] Mean Corpuscular HGB Conc 33.9 g/dL Normal 32.5-35.6 [facility] Comment on above: Performed By: #### C OVID-19 GERTRUDE, SOFIANEG #### [facility] [address] [place] [address] [place] Monocytes (Bld) [#/Vol] 0.5 10*3/uL Normal 0.0-0.8 [facility] Comment on above: Performed By: #### C OVID-19 GERTRUDE, SOFIANEG #### [facility] [address] [place] [address] [place] Monocytes/100 WBC (Bld) 11.2 % Normal . [facility] Comment on above: Performed By: #### C OVID-19 GERTRUDE, SOFIANEG #### [facility] [address] Neutrophils (Bld) [#/Vol] 3.1 10*3/uL Normal 1.8-7.7 [facility] Comment on above: Performed By: #### C OVID-19 GERTRUDE, SOFIANEG #### [address] Neutrophils/100 WBC (Bld) 63.8 % Normal . [facility] Comment on above: Performed By: #### C OVID-19 GERTRUDE, SOFIANEG #### [facility] [address] [place] [address] [place] Nucleated RBC/100 WBC (Bld) [Ratio] 0.1 % Normal 0-0.5 [facility] Comment on above: Performed By: #### C OVID-19 GERTRUDE, SOFIANEG #### [address] Platelet mean volume (Bld) [Entitic vol] 8.2 fL Normal 6.6-10.1 [facility] Comment on above: Performed By: #### C OVID-19 GERTRUDE, SOFIANEG #### [facility] [address] [place] [address] [place] Platelets (Bld) [#/Vol] 243 10*3/uL Normal 150-450 [facility] Comment on above: Performed By: #### C OVID-19 GERTRUDE, SOFIANEG #### [place] [address] [place] RBC (Bld) [#/Vol] 4.67 10*6/uL Normal 3.90-5.60 [facility] Comment on above: Performed By: #### C OVID-19 GERTRUDE, SOFIANEG #### [address] [place] [address] [place] WBC (Bld) [#/Vol] 4.8 10*3/uL Normal 4.5-11.0 [facility] Comment on above: Performed By: #### C OVID-19 WOLFGANG LOREDO #### [address] ECG 12 lead ECGon 06-18-2021 ECG 12 lead ECG [facility] Main [place] [address] [place] [address] Electrocardiograph Report Signed Patient: Fredrick Stroud MR#: [id number] 427 : 1950 Acct:[id number] Age/Sex: 70 / M ADM Date: 06/18/21 Loc: Room: Type: [facility] Attending Dr: Shahriar Dhillon II, [...] Wisam Torre MD 0 06/19/21 1006 Normal [facility] Fructosamineon 06-18-2021 Fructosamine 217 umol/L Normal 0-285 [facility] Comment on above: Result Comment: Publ ished reference interval for apparently healthy subjects between age 20 and 60 is 205 - 285 umol/L and in a poorly controlled diabetic population is 228 - 563 umol/L with a mean of 396 umol/L. Performed at: [address], [place], [place] [id number] [employer]: Benton Caro PhD, Phone: [phone] PERFORMED BY: [place] [address] PATHOLOGIST LADLE BUILDER EYAD HOWARD M.D. Performed By: #### C OVID-19 GERTRUDE, SOFIANEG #### [facility] [address] [place] [address] [place] PST Type and Screenon 2021 ABO and Rh group Nom (Bld) Blood group O Rh(D) positive Normal [facility] Comment on above: Order Comment: Date of Surgery: [id number] Result Comment: PERF ORMED BY: [place] [address] PATHOLOGIST LADLE BUILDER EYAD HOWARD M.D. Urinalysison 06-18-2021 Appearance (U) Clear Normal Clear [facility] Comment on above: Order Comment: Name Collection Type:: Clean-Voided Midstream Performed By: #### C BC, CMP, HS TROP, BNP #### [facility] [address] [place] [address] [place] Bilirubin,Urine Negative Normal Negative [facility] Comment on above: Order Comment: Name Collection Type:: Clean-Voided Midstream Performed By: #### C BC, CMP, HS TROP, BNP #### [facility] [address] [place] [address] [place] Color (U) Yellow Normal Yellow [facility] Comment on above: Order Comment: Name Collection Type:: Clean-Voided Midstream Performed By: #### C BC, CMP, HS TROP, BNP #### [facility] [address] [place] [address] [place] Glucose Ql (U) Normal Normal Normal [facility] Comment on above: Order Comment: Name Collection Type:: Clean-Voided Midstream Performed By: #### C BC, CMP, HS TROP, BNP #### [facility] [address] [place] [address] [place] Ketones Ql (U) Negative Normal Negative [facility] Comment on above: Order Comment: Name Collection Type:: Clean-Voided Midstream Performed By: #### C BC, CMP, HS TROP, BNP #### [address] Leukocyte esterase Test strip Ql (U) Negative Normal Negative [facility] Comment on above: Order Comment: Name Collection Type:: Clean-Voided Midstream Performed By: #### C BC, CMP, HS TROP, BNP #### [address] Nitrite,Urine Negative Normal Negative [facility] Comment on above: Order Comment: Name Collection Type:: Clean-Voided Midstream Performed By: #### C BC, CMP, HS TROP, BNP #### [address] Occult Blood,Urine Negative Normal Negative [facility] Comment on above: Order Comment: Name Collection Type:: Clean-Voided Midstream Result Comment: PERF ORMED BY: [place] [address] PATHOLOGIST LADLE BUILDER EYAD HOWARD M.D. Performed By: #### C BC, CMP, HS TROP, BNP #### [address] pH (U) 7.5 [pH] Normal 5.0-9.0 [facility] Comment on above: Order Comment: Name Collection Type:: Clean-Voided Midstream Performed By: #### C BC, CMP, HS TROP, BNP #### [address] Protein,Urine Negative Normal Negative [facility] Comment on above: Order Comment: Name Collection Type:: Clean-Voided Midstream Performed By: #### C BC, CMP, HS TROP, BNP #### [address] Specificy [place],Urine 1.023 Normal 1.001-1.030 [facility] Comment on above: Order Comment: Name Collection Type:: Clean-Voided Midstream Performed By: #### C BC, CMP, HS TROP, BNP #### [facility] [address] [place] [address] [place] Urobilinogen,Urine Normal Normal Normal [facility] Comment on above: Order Comment: Name Collection Type:: Clean-Voided Midstream Performed By: #### C BC, CMP, HS TROP, BNP #### [facility] [address] [place] [address] [place] Urinalysis - AUTOMATEDon Appearance (U) CLEAR [employer] Other Bilirubin Ql (U) Negative [employer] Other Color (U) YELLOW [employer] Other Glucose Ql (U) Negative [employer] Other Hemoglobin Ql (U) Negative [employer] Other Ketones Ql (U) Negative [employer] Other Leukocyte esterase Test strip Ql (U) Negative [employer] Other Nitrite Ql (U) Negative [employer] Other pH (U) 6.0 [pH] [employer] Other Protein Ql (U) Negative [employer] Other Specific gravity (U) [Rel density] 1.010 [employer] Other Urobilinogen (U) [Mass/Vol] 0.2 mg/dL [employer] Other Urinalysis - AUTOMATED [employer] Other Vital Signs Date Time Vital Sign Value Performing Clinician Facility 02-25-2023 13:00-0500 Body temperature 98.2 [degF] Vivian Espinoza MD Work Phone: [facility] 02-25-2023 13:00-0500 Diastolic blood pressure 81 mm[Hg] Vivian Espinoza MD Work Phone: [facility] 02-25-2023 13:00-0500 Heart rate 79 /min Vivian Espinoza MD Work Phone: [employer] 02-25-2023 13:00-0500 Respiratory rate 18 /min Vivian Espinoza MD Work Phone: [employer] 02-25-2023 13:00-0500 SaO2% (BldA) [Mass fraction] 97 % Vivian Espinoza MD Work Phone: [employer] 02-25-2023 13:00-0500 Systolic blood pressure 125 mm[Hg] Vivian Espinoza MD Work Phone: [employer] 02-16-2023 22:54-0500 SaO2% (BldA) [Mass fraction] 96.1 % Vivian Espinoza MD Work Phone: [employer] 02-16-2023 03:00-0500 Body height 167.6 cm Vivian Espinoza MD Work Phone: [employer] 02-16-2023 03:00-0500 Body mass index (BMI) [Ratio] 42.52 kg/m2 Vivian Espinoza MD Work Phone: [employer] 02-16-2023 03:00-0500 Body weight 119.5 kg Vivian Espinoza MD Work Phone: [employer] 02-15-2023 20:06-0500 Body temperature 97.52 [degF] Justice Pretty [facility] 02-15-2023 20:06-0500 Diastolic blood pressure 63 mm[Hg] Justice Pretty [facility] 02-15-2023 20:06-0500 Heart rate 70 /min Justice Pretty [facility] 02-15-2023 20:06-0500 Mean blood pressure 76 mm[Hg] Justice Pretty [facility] 02-15-2023 20:06-0500 Respiratory rate 18 /min Justice Pretty [facility] 02-15-2023 20:06-0500 SaO2% (BldA) [Mass fraction] 94 % Justice Sukhwinder [facility] 02-15-2023 20:06-0500 Systolic blood pressure 101 mm[Hg] Justice Sukhwinder [facility] 02-15-2023 20:00-0500 Diastolic blood pressure 74 mm[Hg] Justice Sukhwinder [facility] 02-15-2023 20:00-0500 Heart rate 63 /min Justice Sukhwinder [facility] 02-15-2023 20:00-0500 Hourly Rounding Justice Cuetoe [facility] 02-15-2023 20:00-0500 Promise to Return Justice Sukhwinder [facility] 02-15-2023 20:00-0500 SaO2% (BldA) [Mass fraction] 100 % Justice Sukhwinder [facility] 02-15-2023 20:00-0500 Systolic blood pressure 112 mm[Hg] Justice Sukhwinder [facility] 02-15-2023 19:57-0500 Diastolic blood pressure 78 mm[Hg] Justice Sukhwinder [facility] 02-15-2023 19:57-0500 Heart rate 101 /min Justice Sukhwinder [facility] 02-15-2023 19:57-0500 Mean blood pressure 90 mm[Hg] Justice Sukhwinder [facility] 02-15-2023 19:57-0500 Respiratory rate 14 /min Justice Sukhwinder [facility] 02-15-2023 19:57-0500 SaO2% (BldA) [Mass fraction] 98 % Justice Sukhwinder [facility] 02-15-2023 19:57-0500 Systolic blood pressure 113 mm[Hg] Justice Sukhwinder [facility] 02-15-2023 19:47-0500 Heart rate 85 /min Justice Sukhwinder [facility] 02-15-2023 19:47-0500 Mean blood pressure 49 mm[Hg] Justice Sukhwinder [facility] 02-15-2023 19:47-0500 Respiratory rate 14 /min Justice Sukhwinder [facility] 02-15-2023 19:34-0500 Blood Pressure Location Justice Sukhwinder [facility] 02-15-2023 19:34-0500 Body temperature 97.52 [degF] Justice Sukhwinder [facility] 02-15-2023 19:34-0500 Heart rate 68 /min Justice Sukhwinder [facility] 02-15-2023 19:19-0500 Heart rate 67 /min Justice Sukhwinder [facility] 02-15-2023 19:00-0500 Hourly Rounding Justice Cuetoe [facility] 02-15-2023 19:00-0500 Promise to Return Justice Sukhwinder [facility] 02-15-2023 18:45-0500 Body temperature 97.52 [degF] Justice Sukhwinder [facility] 02-15-2023 18:17-0500 Body temperature 97.52 [degF] Justice Sukhwinder [facility] 02-15-2023 18:00-0500 Hourly Rounding Justice Sukhwinder [facility] 02-15-2023 18:00-0500 Promise to Return Justice Pretty [facility] 02-15-2023 16:28-0500 Body temperature 97.88 [degF] Justice Pretty [facility] 08-30-2022 08:53-0400 Body height 167.64 cm Karina Melgar Work Phone: [facility] [address] DO Work Phone: 08-30-2022 08:53-0400 Body mass index (BMI) [Ratio] 38.74 kg/m2 Karina Melgar Work Phone: [facility] [address] DO Work Phone: 08-30-2022 08:53-0400 Body surface area Derived from formula 2.16 m2 Karina Melgar Work Phone: [facility] [address] DO Work Phone: 08-30-2022 08:53-0400 Body weight 108.86 kg Karina Melgar Work Phone: [facility] [address] DO Work Phone: 08-30-2022 08:53-0400 Diastolic blood pressure 62 mm[Hg] Karina Melgar Work Phone: [facility] [address] DO Work Phone: 08-30-2022 08:53-0400 Heart rate 55 /min Karina Melgar Work Phone: [facility] [address] DO Work Phone: 08-30-2022 08:53-0400 Systolic blood pressure 128 mm[Hg] Karina Melgar Work Phone: [facility] [address] DO Work Phone: 08-13-2022 13:21-0400 Body height 167.64 cm Karina Melgar Work Phone: [facility] [address] DO Work Phone: 08-13-2022 13:21-0400 Body mass index (BMI) [Ratio] 39.87 kg/m2 Karina Lisa Ramón Work Phone: [facility] [address] DO Work Phone: 08-13-2022 13:21-0400 Body surface area Derived from formula 2.19 m2 Karina Lisa Ramón Work Phone: [facility] [address] DO Work Phone: 08-13-2022 13:21-0400 Body weight 112.04 kg Karina Guardadoon Work Phone: [facility] [address] DO Work Phone: 08-13-2022 13:21-0400 Diastolic blood pressure 70 mm[Hg] Karina Lisa Ramón Work Phone: [facility] [address] DO Work Phone: 08-13-2022 13:21-0400 Heart rate 70 /min Karina Lisa Ramón Work Phone: [facility] [address] DO Work Phone: 08-13-2022 13:21-0400 Systolic blood pressure 136 mm[Hg] Karina Lisa Ramón Work Phone: [facility] [address] DO Work Phone: 07-05-2022 09:08-0400 Body height 167.64 cm Karina Lisa Ramón Work Phone: [facility] [address] DO Work Phone: 07-05-2022 09:08-0400 Body mass index (BMI) [Ratio] 39.54 kg/m2 Karina Lisa Ramón Work Phone: [facility] [address] DO Work Phone: 07-05-2022 09:08-0400 Body surface area Derived from formula 2.18 m2 Karina Lisa Ramón Work Phone: [facility] [address] DO Work Phone: 07-05-2022 09:08-0400 Body weight 111.13 kg Karina Lisa Ramón Work Phone: [facility] [address] DO Work Phone: 07-05-2022 09:08-0400 Diastolic blood pressure 70 mm[Hg] Karina Lisa Ramón Work Phone: [facility] [address] DO Work Phone: 07-05-2022 09:08-0400 Heart rate 72 /min Karina Lisa Ramón Work Phone: [facility] [address] DO Work Phone: 07-05-2022 09:08-0400 Systolic blood pressure 138 mm[Hg] Karina Lisa Ramón Work Phone: [facility] [address] DO Work Phone: 06-20-2022 16:24-0400 Body height 167.64 cm Karina Lisa Ramón Work Phone: [facility] [address] DO Work Phone: 06-20-2022 16:24-0400 Body mass index (BMI) [Ratio] 40.03 kg/m2 Karina Lisa Ramón Work Phone: [facility] [address] DO Work Phone: 06-20-2022 16:24-0400 Body surface area Derived from formula 2.19 m2 Karina Guardadoon Work Phone: [facility] [address] DO Work Phone: 06-20-2022 16:24-0400 Body weight 112.49 kg Karina Guardadoon Work Phone: [facility] [address] DO Work Phone: 06-20-2022 16:24-0400 Diastolic blood pressure 102 mm[Hg] Karina Guardadoon Work Phone: [facility] [address] DO Work Phone: 06-20-2022 16:24-0400 Heart rate 76 /min Karina Lisa Ramón Work Phone: [facility] [address] DO Work Phone: 06-20-2022 16:24-0400 Systolic blood pressure 162 mm[Hg] Karina Lisa Ramón Work Phone: [facility] [address] DO Work Phone: 05-10-2022 14:46-0400 Body height 167.64 cm Karina Lisa Ramón Work Phone: [facility] [address] [place] Work Phone: 05-10-2022 14:46-0400 Body mass index (BMI) [Ratio] 40.19 kg/m2 Karina Lisa Ramón Work Phone: [facility] [address] [place] Work Phone: 05-10-2022 14:46-0400 Body surface area Derived from formula 2.2 m2 Karina Lisa Ramón Work Phone: [facility] [address] [place] Work Phone: 05-10-2022 14:46-0400 Body weight 112.95 kg Karina Lisa Ramón Work Phone: [facility] [address] [place] Work Phone: 05-10-2022 14:46-0400 Diastolic blood pressure 80 mm[Hg] Karina Lisa Melgar Work Phone: [facility] [address] [place] Work Phone: 05-10-2022 14:46-0400 Heart rate 61 /min Karina Guardadoon Work Phone: [facility] [address] [place] Work Phone: 05-10-2022 14:46-0400 Systolic blood pressure 130 mm[Hg] Karina Guardadoon Work Phone: [facility] [address] [place] Work Phone: 05-02-2022 13:26-0500 Body height 167.64 cm Karina Lisa Melgar Work Phone: [facility] [address] DO Work Phone: 05-02-2022 13:26-0500 Body mass index (BMI) [Ratio] 40.19 kg/m2 Karina Guardadoon Work Phone: [facility] [address] DO Work Phone: 05-02-2022 13:26-0500 Body surface area Derived from formula 2.2 m2 Karina Guardadoon Work Phone: [facility] [address] DO Work Phone: 05-02-2022 13:26-0500 Body weight 112.95 kg Karina Guardadoon Work Phone: [facility] [address] DO Work Phone: 05-02-2022 13:26-0500 Diastolic blood pressure 64 mm[Hg] Karina Guardadoon Work Phone: [facility] [address] DO Work Phone: 05-02-2022 13:26-0500 Heart rate 62 /min Karina Guardadoon Work Phone: [facility] [address] DO Work Phone: 05-02-2022 13:26-0500 Systolic blood pressure 116 mm[Hg] Karina Guardadoon Work Phone: [facility] [address] DO Work Phone: 04-29-2022 11:48-0500 Body height 167.64 cm Karina Lisa Ramón Work Phone: [facility] [address] DO Work Phone: 04-29-2022 11:48-0500 Body mass index (BMI) [Ratio] 40.09 kg/m2 Karina Lisa Ramón Work Phone: [facility] [address] DO Work Phone: 04-29-2022 11:48-0500 Body surface area Derived from formula 2.19 m2 Karina Lisa Ramón Work Phone: [facility] [address] DO Work Phone: 04-29-2022 11:48-0500 Body weight 112.67 kg Karina Lisa Ramón Work Phone: [facility] [address] DO Work Phone: 04-29-2022 11:48-0500 Diastolic blood pressure 80 mm[Hg] Karina Lisa Ramón Work Phone: [facility] [address] DO Work Phone: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
[2023-04-04 09:55] LABS: INR 2.29; Prothrombin Time 23.2 sec (9.0-11.6)
== END 2023-04-04 02:13 | disposition home or self-care (01) ==
LOC: LAB 02:12
PROVIDERS: PCP Family Medicine; Visit Provider Family Medicine
DX: I48.0 Paroxysmal atrial fibrillation (principal)
CPT/HCPCS: 36415; 85610

== ENCOUNTER 2023-04-07 01:49 | Outpatient (REF) | payer MEDICARE, SELFPAY ==
--- OUTSIDE RECORDS SUMMARY | 2023-04-07 01:53 | XMS_ITS | CCD ---
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 Name Role Phone No, Physician Primary Care Provider UnavailShahriar Frederick II Unavailable Shahriar Dhillon II Unavailable Karina Melgar Unavailable Lynn Gurrola Unavailable MD Karina Melgar Primary Care Provider DO Yo Blood Emergency Provider [phone] LISSETH Link Attending Provider Sejal Link Unavailable Karina Melgar Unavailable [phone] Unavailable Unavailable Unavailable Unavailable Karina Melgar Primary [...] Karina Melgar Primary Care Unavailable Kate Nielson Consulting Unavailable Shahriar Dhillon II Admitting UnavailShahriar Frederick II Attending UnavailKarina Butler [facility] Care Unavailable Joselin Burgess Consulting Unavailable Love [...] Coles Consulting Unavailable Jory Campos Consulting Unavailable DoAnkush tam Consulting Unavailab Marcus Edmond Consulting Unavailable Marcos Bruno Consulting Unavailable Haylee Diaz Consulting Unavailable Kayode Almaraz Consulting Unavailable GhAngel Berrios Consulting Mariella vailable Trisha Keyes Consulting Unavailable Pawan Kaba Consulting Unavailab Kennedy Dhillon Consulting Unavailable Ryan Dolan Consulting Unavailable Fatoumata Pacheco Consulting Unavailable Adri Mon Consulting Unavailable Shahriar Dhillon II Admitting UnavailShahriar Frederick II Attending UnavailKarina Butler [facility] Care Unavailable Christopher Porter Referring Unavailable Christopher Porter Attending Unavailable Dr. Karina Melgar [facility] Care Mariella vailable Christopher Porter Referring Unavailable [...] Attending Unavailable PROVIDER, UNKNOWN Admitting Unavailable SUKHWINDER, JOHN Referring Unavailable PROVIDER, UNKNOWN Attending Unavailable ISACC ALICIA Admitting Unavailable PROVIDER, UNKNOWN Attending Unavailable JUSTICE PRETTY Referring Unavailable ISACC ALICIA Admitting Unavailable PROVIDER, UNKNOWN Attending Unavailable JUSTICE PRETTY Referring Unavailable ISACC ALICIA Admitting Unavailable SUKHWINDER, JUSTICE Referring Unavailable PROVIDER, UNKNOWN Attending Unavailable HILLARYISACC Admitting Unavailable PROVIDER, UNKNOWN Admitting Unavailable SUKHWINDER, JUSTICE Referring Unavailable PROVIDER, UNKNOWN Attending Unavailable PROVIDER, UNKNOWN Admitting Unavailable PROVIDER, UNKNOWN Attending Unavailable PROVIDER, UNKNOWN Admitting Unavailable PROVIDER, UNKNOWN Attending Unavailable PROVIDER, UNKNOWN Admitting Unavailable PROVIDER, UNKNOWN Attending Unavailable Unavailable Primary Care Provider Unavailabl e Unavailable Primary Care Provider Unavailabl e Justi, MEGHANAP Mae Attending Unavailable Justi, ACNP Mae Referring Unavailable Justi, ACNP Mae Admitting Unavailable McGuinn, Christopher P Admitting Unavailable McGmao, Christopher P Attending Unavailable German, Christopher P Referring Unavailable Sukhwinder, Justice Attending Unavailable Unavailable Primary Care Provider Unavailabl e Allergies Allergy Classification Reported Allergen(s) Allergy Type Date of Onset Reaction(s) Facility (1 source) No Known Medication Allergies; Translations: [No Known Medication Allergies] Propensity to adverse reactions (disorder) [facility] Medications Current Medications Medication Drug Class(es) Dates Sig (Normalized) Sig (Original) acetaminophen 325 mg / HYDROcodone bitartrate 5 mg oral tablet (2 sources) Opioid Agonist Start: 07-28-2020 Cora 325 mg-5 mg oral tablet 1 tab(s), [...] Active docusate sodium 50 mg / sennosides, snf 8.6 mg oral tablet (3 sources) Start: [...] Start: 07-28-2017 take 1 tablet by cuong once daily Lisinopril-hydroCHLOROthiazide 10-12.5 M G Oral [...] Take as directed by [facility] Quantity: 0 Refills: 0 Ordered: [...] Start: 06-14-2021 take 2 tablets by mo uth every eight hours for pain Acetaminophen 500 [...] Sulf ate Active 2 INH INHALATION Q6H March 11, 2022 12:00am administer with spacer take 2 puff(s) by mo uth every [...] 1 capsule by mouth twice daily Iron [id number]-M-Ergbw Acid (Ferocon) 110-0.5 mg Capsule Discontinued 1 [...] 06-14-2021 take 1 tablet by cuong th twice daily Aspirin 81 MG 1 tablet [...] HOURS ANTIBIOTIC, 3 doses, First dose on 02/19/23 at 1030, Last dose on Theresa 02/20/23 at 0300 celecoxib 200 mg oral capsule [...] (2,000 mg), Intravenous, ONCE, 1 dose, On Fri02/20/23 at 0730 Start: 02-18-2023 End: 02-18-2023 2 [...] TABS (10 sources) Move Free TABS T nikki 1 tablet daily Quantity: 0 Refills: 0 [...] injection (6 sources) Serotonin-3 Receptor Antagonist Start: 12-24-2 023 take 4 mg intravenously every four [...] Discontinued Start: 06-14-2021 take 1 tablet by [facility] three times daily as needed for nausea Ondansetron HCl 8 MG 1 tablet as needed for nausea Orally TID for 10 days Med to Bed Upon Discharge DOS: 07/02/2021 May, Active polyethylene glycol 3350 53530 mg powder for oral solution (4 sources) Osmotic Laxative Start: 02-16-2023 17 g, Oral, D AILY, First dose on 02/16/23 at 0900, Until Discontinued Start: 06-14-2021 MiraLax 17 GM 1 packet mixed with 8 ounces of fluid Orally Once a day for 7 days Med to Bed Upon Discharge DOS: 07/02/2021 May, Active Probiotic PACK (2 sources) Probiotic PACK Kimberly QUINONES DIRECTED. Quantity: 0 Refills: 0 Ordered: 30-Aug-2022 DO Active 12 hr propafenone hydrochloride 425 mg extended release oral capsule (17 sources) Antiarrhythmic Start: 02-16-2023 take 425 mg by mouth twice daily 425 mg, Oral, 2 TIMES DAILY, First dose (after last modification) on 02/16/23 at 2100, Until Discontinued Start: 07-05-2022 take 1 capsule by [facility] every twelve hours propafenone 425 [...] Active Start: 04-29-2022 take 1 capsule by [facility] every twelve hours Propafenone HCl ER 225 MG Oral Capsule Extended Release 12 Hour TAKE 1 CAPSULE EVERY 12 HOURS. Quantity: 180 Refills: 0 Ordered: 29-Apr-2022 Christopher Porter MD Start : 29-Apr-2022 Active new start Prostate Support TABS (10 sources) Prostate Support TABS TAKE 1 TABLET DAILY DIRECTED. Quantity: 0 Refills: 0 Ordered: 21-Mar-2022 DO Active Saw-Vit E-Sod Oqa-Gxb-Nsjs-Pyg (Prostate Health) 160-100-100 mg-unit-mcg Tablet (2 sources) Start: 8 End: 3 take 1 capsule by mouth once daily Saw-Vit E-Sod Ywa-Ffu-Npcb-Pyg (Prostate Health) 160-100-100 mg-unit-mcg Tablet Discontinued 1 CAP PO Daily July 27, 2017 11:00pm March 11, 2022 5:18pm sennosides, snf 8.6 mg oral tablet (1 source) Start: [...] on Fri02/17/23 at 1600, Until Discontinued Vit C-S.Pueayv-Jfzlaq-Lfung Sd (Tart Bhagat) 61-750-22-75-20 mg Capsule (2 sources) Start: 07-28-2017 End: 08-09-2019 Vit C-S.Oyzdft-Hpjqqi-Qyuva Sd (Tart Bhagat) 89-033-96-75-20 mg Capsule Discontinued 1 CAP PO Twice [...] source) Long-term current use of anticoagulant; Translations: [ocean transportation intermediary (current) use of anticoagulants] Episodic Other aftercare [...] 02-13-2021 Episodic Other aftercare (2 sources) Other usp (current) drug therapy Onset: 03-22-2021 Resolved: 06-14-2021 [...] Results Test Name Value Interpretation Reference Range [facility] PROTHROMBIN TIME INR W/O COUMon 04-04-2023 Interpretation and review of laboratory results Abnormal [facility] PT Coag (PPP) [Time] 23.2 s High [facility] INR 2.29 [facility] Comment on above: DESIRED INR: 2.0-3.0 CONDITIONS NOT LISTED BELOW 2.5-3.5 FOR PROSTHETIC HEART VALVE REPLACEMENT 2.5-3.5 RECURRENT THROMBOSIS [facility] PROTHROMBIN TIME INR W/O COUMon 04-02-2023 Interpretation and review of laboratory results Abnormal [facility] PT Coag (PPP) [Time] 37.1 s High [facility] INR 3.77 [facility] Comment on above: DESIRED INR: 2.0-3.0 CONDITIONS NOT LISTED BELOW 2.5-3.5 FOR PROSTHETIC HEART VALVE REPLACEMENT 2.5-3.5 RECURRENT THROMBOSIS [facility] Basic metabolic 2000 panelon 02-25-2023 Anion gap [Moles/Vol] 8 mmol/L Low 10 - [facility] Calcium [Mass/Vol] 8.0 mg/dL Low 8.6 - 10. 3 mg/dL [facility] Chloride [Moles/Vol] 102 mmol/L 98 - 107 mmol/L [facility] CO2 [Moles/Vol] 30 mmol/L 21 - 31 mmol/L [facility] Creatinine [Mass/Vol] 0.64 mg/dL Low 0.70 - 1.30 mg/dL [facility] GFR/1.73 sq M.predicted CKD-EPI (S/P/Bld) [Vol rate/Area] 99 - PINF [facility] Glucose [Mass/Vol] 129 mg/dL High 74 - 109 mg/dL [facility] Interpretation and review of laboratory results Abnormal [facility] Potassium [Moles/Vol] 3.8 mmol/L 3.5 - 5.0 mmol/L [facility] Sodium [Moles/Vol] 136 mmol/L 136 - 145 mmol/L [facility] Urea nitrogen [Mass/Vol] 20 mg/dL 7 - 25 mg/dL [facility] CBC panel Auto (Bld)on 02-25 Erythrocyte distribution width (RBC) [Ratio] 16.3 % High 11.5 - 14.5 % [facility] Hematocrit (Bld) [Volume fraction] 27.5 % Low 41.0 - 53.0 % [facility] Hemoglobin (Bld) [Mass/Vol] 8.9 g/dL Low 13.9 - 16.3 g/dL [facility] Interpretation and review of laboratory results Abnormal [facility] MCH (RBC) [Entitic mass] 30.8 pg 26.0 - 34.0 pg [facility] MCHC (RBC) [Mass/Vol] 32.5 g/dL 32.0 - 35.9 g/dL [facility] MCV (RBC) [Entitic vol] 95 fL 80 - 100 fL [facility] Platelet mean volume (Bld) [Entitic vol] 8.0 fL 7.5 - 11.2 fL [facility] Platelets (Bld) [#/Vol] 376 10*3/uL 150 - 400 K/uL [facility] RBC (Bld) [#/Vol] 2.90 10*6/uL Low [facility] WBC (Bld) [#/Vol] 8.5 10*3/uL 4.5 - 11.5 K/uL [facility] MAG[facility]ESIUM[facility] 02-25-2023 Magnesium [Mass/Vol] 1.9 mg/dL 1.6 - 2.8 mg/dL [facility] No Panel Informationon 02-25 Interpretation and review of laboratory results Normal [facility] PHOSPHORUSon 02-25-2023 Phosphate [Mass/Vol] 2.9 mg/dL 2.3 - 4.2 mg/dL [facility] PROTHROMBIN TIME AND INRon 0 02-25-2023 INR Coag (PPP) [Relative time] 1.13 {INR} High 0.90 - 1.10 [facility] Interpretation and review of laboratory results Abnormal [facility] PT Coag (PPP) [Time] 12.6 s [facility] ANTI FXA-LMW HEPARINon 02-24 LMW Heparin Chromogenic method Qn (PPP) 0.32 IU/mL [facility] Basic metabolic 2000 panelon 02-24-2023 Anion gap [Moles/Vol] 9 mmol/L Low 10 - 20 Met [facility] Calcium [Mass/Vol] 7.7 mg/dL Low 8.6 - 10. 3 mg/dL [facility] Chloride [Moles/Vol] 101 mmol/L 98 - 107 mmol/L [facility] CO2 [Moles/Vol] 30 mmol/L 21 - 31 mmol/L [facility] Creatinine [Mass/Vol] 0.60 mg/dL Low 0.70 - 1.30 mg/dL [facility] GFR/1.73 sq M.predicted CKD-EPI (S/P/Bld) [Vol rate/Area] 101 - PINF [facility] Glucose [Mass/Vol] 98 mg/dL 74 - 109 mg/dL [facility] Interpretation and review of laboratory results [facility] Potassium [Moles/Vol] 4.0 mmol/L 3.5 - 5.0 mmol/L [facility] Sodium [Moles/Vol] 136 mmol/L 136 - 145 mmol/L [facility] Urea nitrogen [Mass/Vol] 19 mg/dL 7 - 25 mg/dL [facility] CBC panel Auto (Bld)on 02-24 Erythrocyte distribution width (RBC) [Ratio] 15.4 % High 11.5 - 14.5 % [facility] Hematocrit (Bld) [Volume fraction] 25.2 % Low 41.0 - 53.0 % [facility] Hemoglobin (Bld) [Mass/Vol] 8.3 g/dL Low 13.9 - 16.3 g/dL [facility] Interpretation and review of laboratory results Abnormal [facility] MCH (RBC) [Entitic mass] 30.7 pg 26.0 - 34.0 pg [facility] MCHC (RBC) [Mass/Vol] 33.1 g/dL 32.0 - 35.9 g/dL [facility] MCV (RBC) [Entitic vol] 93 fL 80 - 100 fL [facility] Platelet mean volume (Bld) [Entitic vol] 7.6 fL 7.5 - 11.2 fL [facility] Platelets (Bld) [#/Vol] 320 10*3/uL 150 - 400 K[facility]L [facility] RBC (Bld) [#/Vol] 2.72 10*6/uL Low [facility] WBC (Bld) [#/Vol] 7.6 10*3/uL 4.5 - 11.5 K/uL [facility] MAGNESIUMon 02-24-2023 Magnesium [Mass/Vol] 1.9 mg/dL 1.6 - 2.8 mg/dL [facility] No Panel Informationon 02-24 Interpretation and review of laboratory results Normal [facility] PHOSPHORUSon 02-24-2023 Phosphate [Mass/Vol] 2.7 mg/dL 2.3 - 4.2 mg/dL [facility] Basic metabolic 2000 panelon 02-23-2023 Anion gap [Moles/Vol] 9 mmol/L Low 10 - 20 [facility] Calcium [Mass/Vol] 7.8 mg/dL Low 8.6 - 10. 3 mg/dL [facility] Chloride [Moles/Vol] 99 mmol/L 98 - 107 mmol/L [facility] CO2 [Moles/Vol] 32 mmol/L High 21 - 31 mmol/L [facility] Creatinine [Mass/Vol] 0.59 mg/dL Low 0.70 - 1.30 mg/dL [facility] GFR/1.73 sq M.predicted CKD-EPI (S/P/Bld) [Vol rate/Area] 102 - PINF [facility] Glucose [Mass/Vol] 88 mg/dL 74 - 109 mg/dL [facility] Interpretation and review of laboratory results Abnormal [facility] Potassium [Moles/Vol] 4.0 mmol/L 3.5 - 5.0 mmol/L [facility] Sodium [Moles/Vol] 136 mmol/L 136 - 145 mmol/L [facility] Urea nitrogen [Mass/Vol] 22 mg/dL 7 - 25 mg/dL [facility] CBC panel Auto (Bld)on 02-23 Erythrocyte distribution width (RBC) [Ratio] 15.3 % High 11.5 - 14.5 % [facility] Hematocrit (Bld) [Volume fraction] 26.6 % Low 41.0 - 53.0 % [facility] Hemoglobin (Bld) [Mass/Vol] 8.7 g/dL Low 13.9 - 16.3 g/dL [facility] Interpretation and review of laboratory results Abnormal [facility] MCH (RBC) [Entitic mass] 30.4 pg 26.0 - 34.[address] [facility] MCHC (RBC) [Mass/Vol] 32.7 g/dL 32.0 - 35.9 g/dL [facility] MCV (RBC) [Entitic vol] 93 fL 80 - [address] [facility] Platelet mean volume (Bld) [Entitic vol] 8.7 fL 7.5 - 11.2 fL [facility] Platelets (Bld) [#/Vol] 285 10*3/uL 150 - 400 K/uL [facility] RBC (Bld) [#/Vol] 2.86 10*6/uL Low [facility] WBC (Bld) [#/Vol] 8.2 10*3/uL 4.5 - 11.5 K/uL [facility] 02-23-2023 Magnesium [Mass/Vol] 2.0 mg/dL 1.6 - 2.8 mg/dL [facility] No Panel Informationon 02-23 Interpretation and review of laboratory results Normal [facility] PHOSPHORUSon 02-23-2023 Phosphate [Mass/Vol] 2.6 mg/dL 2.3 - 4.2 mg/dL [facility] ANTI FXA-LMW HEPARINon 02-22 ANTI FXA-LMW HEPARIN ASSAY 0.48 IU/mL Normal [facility] Comment on above: Order Comment: The r ecommended therapeutic range for treatment of thrombosis with Low Molecular Weight Heparin is 0.5 - 1.0 IU/mLThe recommended range for VTE prophylaxis with Low Molecular Weight Heparin is 0.2 - 0.4 IU/mL. Performed By: #### T S #### S PATHOLOGY LABORATORY [address] [place] [address], [id number] LMW Heparin Chromogenic method Qn (PPP) 0.48 IU/mL [facility] BASIC METABOLIC PANELon 01-26 Anion gap [Moles/Vol] 7 mmol/L Low 10-[address] [facility] Comment on above: Performed By: #### [id number] #### NURSING GLUCOSE PROGRAM [address] [place], [address] Calcium [Mass/Vol] 7.7 mg/dL Low 8.6-10.[address] [facility] Comment on above: Result Comment: Note updated reference ranges. Performed By: #### [id number] #### NURSING GLUCOSE PROGRAM [address] [place], [address] Chloride [Moles/Vol] 101 mmol/L Normal 98-107 [facility] Comment on above: Result Comment: Note updated reference ranges. Performed By: #### 8 [id number] #### NURSING GLUCOSE PROGRAM [address] [place], [address] CO2 [Moles/Vol] 33 mmol/L High 21-31 [facility] Comment on above: Result Comment: Note updated reference ranges. Performed By: #### 8 [id number] #### NURSING GLUCOSE PROGRAM [address] [place], [address] Creatinine [Mass/Vol] 0.60 mg/dL Low 0.70-1.30 [facility] Comment on above: Result Comment: Note updated reference ranges. Performed By: #### 8 [id number] #### NURSING GLUCOSE PROGRAM [address] [place], [address] ESTIMATED GFR (CKD-EPI) 101 mL/min/1.73sqm Normal >=60 [...] Med 1 Vol. 385 Issue 19 Pages [id number] Performed By: #### [id number] #### NURSING GLUCOSE PROGRAM [address] [place], [address] Glucose [Mass/Vol] 105 mg/dL Normal 74-109 [facility] Comment on above: Performed By: #### [id number] #### NURSING GLUCOSE PROGRAM [address] [place], [address] Potassium [Moles/Vol] 3.6 mmol/L Normal 3.5-5.0 [facility] Comment on above: Result Comment: Note updated reference ranges. Note updated reference ranges. Performed By: #### 8 [id number] #### NURSING GLUCOSE PROGRAM [address] [place], [address] Sodium [Moles/Vol] 137 mmol/L Normal 136-[address] [facility] Comment on above: Result Comment: Note updated reference ranges. Performed By: #### 8 [id number] #### NURSING GLUCOSE PROGRAM [address] [place], [address] Urea nitrogen [Mass/Vol] 23 mg/dL Normal 7-[address] [facility] Comment on above: Result Comment: Note updated reference ranges. Performed By: #### 8 [id number] #### NURSING GLUCOSE PROGRAM [address] [place], [address] Basic metabolic 2000 panelon 02-22-2023 Anion gap [Moles/Vol] 7 mmol/L Low 10 - 20 Met [facility] Calcium [Mass/Vol] 7.7 mg/dL Low 8.6 - 10. 3 mg/dL [facility] Chloride [Moles/Vol] 101 mmol/L 98 - 107 mmol/L [facility] CO2 [Moles/Vol] 33 mmol/L High 21 - 31 mmol/L [facility] Creatinine [Mass/Vol] 0.60 mg/dL Low 0.70 - 1.30 mg/dL [facility] GFR/1.73 sq M.predicted CKD-EPI (S/P/Bld) [Vol rate/Area] 101 - PINF [facility] Glucose [Mass/Vol] 105 mg/dL 74 - 109 mg/dL [facility] Interpretation and review of laboratory results Abnormal [facility] Potassium [Moles/Vol] 3.6 mmol/L 3.5 - 5.0 mmol/L [facility] Sodium [Moles/Vol] 137 mmol/L 136 - 145 mmol/L [facility] Urea nitrogen [Mass/Vol] 23 mg/dL 7 - 25 mg/dL [facility] CBC panel Auto (Bld)on 02-22 Erythrocyte distribution width (RBC) [Ratio] 15.4 % High 11.5 - 14.5 % [facility] Hematocrit (Bld) [Volume fraction] 23.9 % Low 41.0 - 53.0 % [facility] Hemoglobin (Bld) [Mass/Vol] 8.0 g/dL Low 13.9 - 16.3 g/dL [facility] Interpretation and review of laboratory results Abnormal [facility] MCH (RBC) [Entitic mass] 30.7 pg 26.0 - 34.0 pg [facility] MCHC (RBC) [Mass/Vol] 33.3 g/dL 32.0 - 35.9 g/dL [facility] MCV (RBC) [Entitic vol] 92 fL 80 - 100 fL [facility] Platelet mean volume (Bld) [Entitic vol] 8.7 fL 7.5 - 11.[address] fL [facility] Platelets (Bld) [#/Vol] 227 10*3/uL 150 - 400 K/uL [facility] RBC (Bld) [#/Vol] 2.60 10*6/uL [facility] WBC (Bld) [#/Vol] 7.6 10*3/uL 4.5 - 11.5 K/uL [facility] COMPLETE BLOOD COUNTon 02-22 Erythrocyte distribution width (RBC) [Ratio] 15.4 % High 11.5-14.[address] [facility] Comment on above: Performed By: #### T S #### S PATHOLOGY LABORATORY [address] [place] [address], Hematocrit (Bld) [Volume fraction] 23.9 % Low 41.0-53.[address] [facility] Comment on above: Performed By: #### T S #### [facility] PATH[facility] [address] [place] [address], Hemoglobin (Bld) [Mass/Vol] 8.0 g/dL Low 13.9-16.[address] [facility] Comment on above: Performed By: #### T S #### S PATH[facility] LAB[facility]ATORY [address] [place] [address], MCH (RBC) [Entitic mass] 30.7 pg Normal 26.0-34.[address] [facility] Comment on above: Performed By: #### T S #### S [facility] LAB[facility] [address] [place] [address], MCHC (RBC) [Mass/Vol] 33.3 g/dL Normal 32.0-35.[address] [facility] Comment on above: Performed By: #### T S #### S PATHOLOG[facility] LABORATORY [address] [place] [address] [place], MCV (RBC) [Entitic vol] 92 fL Normal 80-100 [facility] Comment on above: Performed By: #### T S #### S PATHOLOG[facility] LAB[facility]ATORY [address] [place], [place], Platelet mean volume (Bld) [Entitic vol] 8.7 fL Normal 7.5-11.2 [facility] Comment on above: Performed By: #### T S #### [facility] [address] [place], [place], Platelets (Bld) [#/Vol] 227 10*3/uL Normal 150-400 [facility] Comment on above: Performed By: #### T S #### S [facility] LAB[facility] [address] [place] [address], RBC (Bld) [#/Vol] 2.60 10*6/uL Low 4.50-5.90 [facility] Comment on above: Performed By: #### T S #### [facility] [address] [place], [place], WBC (Bld) [#/Vol] 7.6 10*3/uL Normal 4.5-11.5 The [employer] [facility] Comment on above: Performed By: #### T S #### [facility] [address] [place] [address], Care Plan Noteon 02-22-2023 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 Interface Message Text Problem: Routine Care: [...] and once discontinued Outcome: Progressing Normal [facility] MAGNESIUMon 02-22-2023 Magnesium [Mass/Vol] 2.0 mg/dL Normal 1.6-2.8 [facility] Comment on above: Performed By: #### 8 [id number] #### NURSING GLUCOSE PROGRAM [address] [place], [address] Magnesium [Mass/Vol] 2.0 mg/dL 1.6 - 2.8 mg/dL [facility] No Panel Informationon 02-22 Interpretation and review of laboratory results [facility] PHOSPHORUSon 02-22-2023 Phosphate [Mass/Vol] 2.8 mg/dL Normal 2.3-4.2 [facility] Comment on above: Performed By: #### 8 [id number] #### NURSING GLUCOSE PROGRAM [address] [place], [address] Phosphate [Mass/Vol] 2.8 mg/dL 2.3 - 4.2 mg/dL [facility] BASIC METABOLIC PANELon 01-25 Anion gap [Moles/Vol] 9 mmol/L Low 10-20 [facility] Comment on above: Performed By: #### 8 [id number] #### NURSING GLUCOSE PROGRAM [address] [place], [address] Calcium [Mass/Vol] 7.5 mg/dL Low 8.6-10.3 [facility] Comment on above: Result Comment: Note updated reference ranges. Performed By: #### 8 [id number] #### NURSING GLUCOSE PROGRAM [address] [place], [address] Chloride [Moles/Vol] 100 mmol/L Normal 98-107 [facility] Comment on above: Result Comment: Note updated reference ranges. Performed By: #### 8 [id number] #### NURSING GLUCOSE PROGRAM [address] [place], [address] CO2 [Moles/Vol] 33 mmol/L High 21-31 [facility] Comment on above: Result Comment: Note updated reference ranges. Performed By: #### 8 [id number] #### NURSING GLUCOSE PROGRAM [address] [place], [address] Creatinine [Mass/Vol] 0.65 mg/dL Low 0.70-1.30 [facility] Comment on above: Result Comment: Note updated reference ranges. Performed By: #### 8 [id number] #### NURSING GLUCOSE PROGRAM [address] [place], [address] ESTIMATED GFR (CKD-EPI) 99 mL/min/1.73sqm Normal >=60 [...] Med 1 Vol. 385 Issue 19 Pages [id number] Performed By: #### 8 [id number] #### NURSING GLUCOSE PROGRAM [address] [place], [address] Glucose [Mass/Vol] 104 mg/dL Normal 74-109 [facility] Comment on above: Performed By: #### 8 [id number] #### NURSING GLUCOSE PROGRAM [address] [place], [address] Potassium [Moles/Vol] 3.5 mmol/L Normal 3.5-5.0 [facility] Comment on above: Result Comment: Note updated reference ranges. Note updated reference ranges. Performed By: #### 8 [id number] #### NURSING GLUCOSE PROGRAM [address] [place], [address] Sodium [Moles/Vol] 138 mmol/L Normal 136-[address] [facility] Comment on above: Result Comment: Note updated reference ranges. Performed By: #### 8 [id number] #### NURSING GLUCOSE PROGRAM [address] [place], [address] Urea nitrogen [Mass/Vol] 24 mg/dL Normal 7-[address] [facility] Comment on above: Result Comment: Note updated reference ranges. Performed By: #### 8 [id number] #### NURSING GLUCOSE PROGRAM [address] [place], [address] BLOOD CULTUREon 02-21-2023 Bacteria identified Cx Nom (Bld) No Growth [facility] Interpretation and review of laboratory results Normal [facility] Basic metabolic 2000 panelon 02-21-2023 Anion gap [Moles/Vol] 9 mmol/L Low 10 - 20 Met [facility] Calcium [Mass/Vol] 7.5 mg/dL Low 8.6 - 10. 3 mg/dL [facility] Chloride [Moles/Vol] 100 mmol/L 98 - 107 mmol/L [facility] CO2 [Moles/Vol] 33 mmol/L High 21 - 31 mmol/L [facility] Creatinine [Mass/Vol] 0.65 mg/dL Low 0.70 - 1.30 mg/dL [facility] GFR/1.73 sq M.predicted CKD-EPI (S/P/Bld) [Vol rate/Area] 99 - PINF [facility] Glucose [Mass/Vol] 104 mg/dL 74 - 109 mg/dL [facility] Interpretation and review of laboratory results Abnormal [facility] Potassium [Moles/Vol] 3.5 mmol/L 3.5 - 5.0 mmol/L [facility] Sodium [Moles/Vol] 138 mmol/L 136 - 145 mmol/L [facility] Urea nitrogen [Mass/Vol] 24 mg/dL 7 - 25 mg/dL [facility] CBC panel Auto (Bld)on 02-21 Erythrocyte distribution width (RBC) [Ratio] 14.5 % 11.5 - 14.5 % [facility] Hematocrit (Bld) [Volume fraction] 21.8 % Low 41.0 - 53.0 % [facility] Hemoglobin (Bld) [Mass/Vol] 7.6 g/dL Low 13.9 - 16.3 g/dL [facility] Interpretation and review of laboratory results Abnormal [facility] MCH (RBC) [Entitic mass] 31.5 pg 26.0 - 34.0 pg [facility] MCHC (RBC) [Mass/Vol] 34.6 g/dL 32.0 - 35.9 g/dL [facility] MCV (RBC) [Entitic vol] 91 fL 80 - 100 fL [facility] Platelet mean volume (Bld) [Entitic vol] 8.3 fL 7.5 - 11.2 fL [facility] Platelets (Bld) [#/Vol] 199 10*3/uL 150 - 400 K/uL [facility] RBC (Bld) [#/Vol] 2.40 10*6/uL Low [facility] WBC (Bld) [#/Vol] 9.6 10*3/uL 4.5 - 11.5 K/uL [facility] COMPLETE BLOOD COUNTon 02-21 Erythrocyte distribution width (RBC) [Ratio] 14.5 % Normal 11.5-14.[address] [facility] Comment on above: Performed By: #### T S #### [facility] [address] [place] [address], Hematocrit (Bld) [Volume fraction] 21.8 % Low 41.0-53.[address] [facility] Comment on above: Performed By: #### T S #### [facility] [address] [place] [address], Hemoglobin (Bld) [Mass/Vol] 7.6 g/dL Low 13.9-16.[address] [facility] Comment on above: Performed By: #### T S #### [facility] [address] [place] [address], MCH (RBC) [Entitic mass] 31.5 pg Normal 26.0-34.[address] [facility] Comment on above: Performed By: #### T S #### [facility] [address] [place] [address], MCHC (RBC) [Mass/Vol] 34.6 g/dL Normal 32.0-35.9 [facility] Comment on above: Performed By: #### T S #### S PATHOLOGY LABORATORY [address] [place] [address], MCV (RBC) [Entitic vol] 91 fL Normal 80-100 [facility] Comment on above: Performed By: #### T S #### S PATHOLOG[facility] LABORATORY [address] [place] [address], Platelet mean volume (Bld) [Entitic vol] 8.3 fL Normal 7.5-11.2 [facility] Comment on above: Performed By: #### T S #### S PATHOLOGY LABORATORY [address] [place] [address], Platelets (Bld) [#/Vol] 199 10*3/uL Normal 150-400 [facility] Comment on above: Performed By: #### T S #### [facility] [address] [place] [address], RBC (Bld) [#/Vol] 2.40 10*6/uL Low 4.50-5.90 [facility] Comment on above: Performed By: #### T S #### S [facility] LABORATORY [address] [place] [address], WBC (Bld) [#/Vol] 9.6 10*3/uL Normal 4.5-11.5 [facility] Comment on above: Performed By: #### T S #### [facility] [address] [place] [address], Care Plan Noteon 02-21-2023 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 Interface Message Text Problem: Routine Care: [...] once discontinued Outcome: Progressing Normal [facility] GLUCOSE, FINGERSTICK-IN OFFI CEon 02-21-2023 Glucose [Mass/Vol] 144 mg/dL High 80-[address] [facility] Comment on above: Performed By: #### [id number] #### NURSING GLUCOSE PROGRAM [address] [place], [address] Glucose [Mass/Vol] 144 mg/dL High 80 - 116 mg/dL [facility] Interpretation and review of laboratory results Abnormal [facility] MAGNESIUMon 02-21-2023 Magnesium [Mass/Vol] 1.9 mg/dL Normal 1.6-2.[address] [facility] Comment on above: Performed By: #### T S #### [facility] [address] [place], [address] Magnesium [Mass/Vol] 1.9 mg/dL 1.6 - 2.8 mg/dL [facility] No Panel Informationon 02-21 Interpretation and review of laboratory results Normal [facility] PHOSPHORUSon 02-21-2023 Phosphate [Mass/Vol] 2.3 mg/dL Normal 2.3-4.2 [facility] Comment on above: Performed By: #### T S #### [facility] [address] [place], [address] Phosphate [Mass/Vol] 2.3 mg/dL 2.3 - 4.2 mg/dL [facility] Procedureson 02-21-2023 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 Interface Message Text Upper Extremities Venous Duplex [address] [place], [place] [address] Status:Open Demographics Patient name: JUAN Leung Gender: Male Date of : 1950 Age: 72 year(s) Procedure Information Procedure date: 02/21/2023 2:15 PM Procedure type: Vascular Proc. sub type: Veins, Upper Extremities Veins, LIMITED DUPLEX VEIN SCAN UE Accession no: [id number] Patient status: Routine Study location: Portable Technical quality: Poor visualization Limitation reason: Poor acoustical window Procedure Staff Referring Physician: SUKHWINDER BRIAN Playground Supervisor: Alex Castañeda RVT Interpreting physician: NATAN Ceja MD Indications Pain, edema, discoloration. Risk Factors Additional comments: No significant history Page 1/2 JUAN Leung 1950 [id number] 02/21/2023 2:15 PM Upper Extremities Venous Duplex [...] jugular vein. Page 2/2 JUAN Leung 1950 [id number] 02/21/2023 2:15 PM Invalid Interpretation Code [facility] [employer] [facility] Progress Noteson 02-21-2023 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 Interface Message Text Preliminary Vascular Lab Report Duplex Left Upper Extremity Vein Scan No evidence deep vein thrombus left upper extremity, official to follow report to follow. Masoud Castañeda RVT Normal [facility] [employer] [facility] 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 Interface Message Text Pt is rec for SNF Pt was denied from [facility] due to no available bed. Ruben will like updates Friday before deciding to clinically accept. Pt is still pending med readiness Pt will not need precert SW will continue to follow Aj Marie [facility] Normal [facility] [employer] [facility] 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 Interface Message Text At 19:40 patient [...] baseline. Will continue to monitor. Normal [facility] [employer] [facility] URINALYSIS WITH REFLEX CULTU RE PERFORMABLEon 02-21-2023 Glucose Ql (U) Negative Normal Negative [facility] [employer] [facility] Comment on above: Order Comment: A [...] Harper CH8, PHOS #### S PATHOLOGY LABORATORY [address] [place] [address], Protein (U) [Mass/Vol] 30 mg/dL Abnormal Negative [facility] Comment on above: Order Comment: A [...] Harper CH8, PHOS #### S PATHOLOGY LABORATORY [address] [place] [address], U APPEAR Clear Normal Clear [facility] Comment on above: Order Comment: A [...] Harper CH8, PHOS #### S PATHOLOG[facility] LABORATORY [address] [place] [address], U BILI Negative Normal Negative [facility] [employer] [facility] Comment on above: Order Comment: A [...] Harper CH8, PHOS #### S PATHOLOGY LABORATORY [address] [place] [address], U BLOOD Negative Normal Negative [facility] [employer] [facility] Comment on above: Order Comment: A [...] ASIA Freitas, PHOS #### S PATH[facility] LABORATORY [address] [place] [address], U COLOR Yellow Normal Colorless [facility] Comment on above: Order Comment: A [...] ASIA Freitas, PHOS #### S PATHOLOGY LABORATORY [address] [place] [address], U KETONE Negative Normal Negative [facility] [employer] [facility] Comment on above: Order Comment: A [...] Harper CH8, PHOS #### [facility] [address] [place] [address], U LEUK Negative Normal Negative [facility] Comment on above: Order Comment: A [...] ASIA Freitas, PHOS #### [facility] [address] [place] [address], U MUCOUS Present Normal [facility] Comment on above: Order Comment: A [...] ASIA Freitas, PHOS #### S PATHOLOGY LABORATORY [address] [place] [address], U NITRITE Negative Normal Negative [facility] Comment on above: Order Comment: A [...] Harper CH8, PHOS #### [facility] [address] [place], [place], U PH 6.5 Normal 5.0-8.0 [facility] Comment on above: Order Comment: A [...] Performed By: #### ASIA Freitas, MIGUEL #### [facility] [address] [place], [place], U RBC 3-5 Abnormal 0-2 [facility] Comment on above: Order Comment: A [...] Performed By: #### ASIA Freitas, MIGUEL #### [facility] [address] [place], [place], U SG 1.026 Normal <=1.030 [facility] Comment on above: Order Comment: A [...] ASIA Freitas, PHOS #### S PATHOLOGY LABORATORY [address] [place] [address], U UROBILI 2.0 mg/dL Abnormal Negative [facility] Comment on above: Order Comment: A [...] ASIA Freitas, PHOS #### S PATHOLOGY LABORATORY [address] [place] [address], U WBC 3-5 Abnormal 0-2 [facility] Comment on above: Order Comment: A [...] ASIA Freitas, PHOS #### [facility] [address] [place] [address], BASIC METABOLIC PANELon 12-2 Anion gap [Moles/Vol] 12 mmol/L Normal 10-20 [facility] Comment on above: Performed By: #### C BC #### [facility] [address] [place] [address], Calcium [Mass/Vol] 7.5 mg/dL Low 8.6-10.3 [facility] Comment on above: Result Comment: Note updated reference ranges. Performed By: #### C BC #### [facility] [address] [place] [address], Chloride [Moles/Vol] 99 mmol/L Normal 98-107 [facility] Comment on above: Result Comment: Note updated reference ranges. Performed By: #### C BC #### S [facility] LAB[facility]ORY [address] [place], [place], CO2 [Moles/Vol] 29 mmol/L Normal 21-31 [facility] Comment on above: Result Comment: Note updated reference ranges. Performed By: #### C BC #### S PATHOLOG[facility] LAB[facility]ORY [address] [place], [place], Creatinine [Mass/Vol] 0.81 mg/dL Normal 0.70-1.30 [facility] Comment on above: Result Comment: Note updated reference ranges. Performed By: #### C BC #### S PATHOLOG[facility] LABOR[facility]ORY [address] [place], [place], ESTIMATED GFR (CKD-EPI) 93 mL/min/1.73sqm Normal >=60 [facility] Comment on above: Result Comment: 2020 CKD EPI Equation using Creatinine without Race Comment: Estimated glomerular filtration rate (eGFR) is calculated without a race coefficient. Values should be interpreted in the context of the patient's full clinical presentation. Reference: 1. Clayton C, Batosha M, Alissa DC, et al.. A Unifying Approach for GFR Estimation: Recommendations of the NKF-ASN Task Force on Reassessing the Inclusion of Race in Diagnosing Kidney Disease. [place] Journal of Kidney Diseases 2021;79(2):268-88.e1. 2. N Engl J Med 1 Vol. 385 Issue 19 Pages 3907-0778 Performed By: #### C BC #### [facility] [address] [place], [place], Glucose [Mass/Vol] 126 mg/dL High 74-109 [facility] Comment on above: Performed By: #### C BC #### [facility] [address] [place], [place], Potassium [Moles/Vol] 3.3 mmol/L Low 3.5-5.0 [facility] Comment on above: Result Comment: Note updated reference ranges. Note updated reference ranges. Performed By: #### C BC #### [facility] [address] [place], [place], Sodium [Moles/Vol] 137 mmol/L Normal 136-145 [facility] Comment on above: Result Comment: Note updated reference ranges. Performed By: #### C BC #### [facility] [address] [place], [place], Urea nitrogen [Mass/Vol] 26 mg/dL High 7-25 [facility] Comment on above: Result Comment: Note updated reference ranges. Performed By: #### C BC #### [facility] [address] [place], [place], Anion gap [Moles/Vol] 10 mmol/L Normal 10-20 [facility] Comment on above: Performed By: #### Jennifer Harper CH8, PHOS #### [facility] [address] [place], [place], Calcium [Mass/Vol] 7.9 mg/dL Low 8.6-10.3 [facility] Comment on above: Result Comment: Note updated reference ranges. Performed By: #### M G, CH8, PHOS #### [facility] [address] [place], [place], Chloride [Moles/Vol] 102 mmol/L Normal 98-107 [facility] Comment on above: Result Comment: Note updated reference ranges. Performed By: #### M G, CH8, PHOS #### [facility] [address] [place], [place], CO2 [Moles/Vol] 30 mmol/L Normal 21-[address] [facility] Comment on above: Result Comment: Note updated reference ranges. Performed By: #### M G, CH8, PHOS #### [facility] [address] [place], [place], Creatinine [Mass/Vol] 0.79 mg/dL Normal 0.70-1.30 [facility] Comment on above: Result Comment: Note updated reference ranges. Performed By: #### M G, CH8, PHOS #### [facility] [address] [place], [place], ESTIMATED GFR (CKD-EPI) 93 mL/min/1.73sqm Normal >=60 [facility] Comment on above: Result Comment: 2020 [...] Med 2020 Vol. 385 Issue 19 Pages [phone] Performed By: #### ASIA Freitas PHOS #### [facility] [address] [place] [address], Glucose [Mass/Vol] 139 mg/dL High 74-109 [facility] Comment on above: Performed By: #### ASIA Freitas, PHOS #### [facility] [address] [place] [address], Potassium [Moles/Vol] 3.7 mmol/L Normal 3.5-5.0 [facility] [employer] [facility] Comment on above: Result Comment: Note updated reference ranges. Note updated reference ranges. Performed By: #### ASIA Freitas, FAVIOLAS #### [facility] [address] [place], [place], Sodium [Moles/Vol] 138 mmol/L Normal 136-145 [facility] [employer] [facility] Comment on above: Result Comment: Note updated reference ranges. Performed By: #### ASIA Freitas, PHOS #### [facility] [address] [place], [place], Urea nitrogen [Mass/Vol] 23 mg/dL Normal 7-25 [facility] [employer] [facility] Comment on above: Result Comment: Note updated reference ranges. Performed By: #### ASIA Freitas, PHOS #### [facility] [address] [place], [place], Basic metabolic 2000 panelon 02-20-2023 Anion [...] 126 mg/dL High 74 - 109 mg/dL [facility] Interpretation and review of laboratory results Abnormal [facility] Potassium [Moles/Vol] 3.3 mmol/L Low 3.5 - 5.0 mmol/L [facility] Sodium [Moles/Vol] 137 mmol/L 136 - 145 mmol/L [facility] Urea nitrogen [Mass/Vol] 26 mg/dL High 7 - 25 mg/dL [facility] Anion gap [Moles/Vol] 10 mmol/L 10 - 20 [facility] Calcium [Mass/Vol] 7.9 mg/dL Low 8.6 - 10. 3 mg/dL [facility] Chloride [Moles/Vol] 102 mmol/L 98 - 107 mmol/L [facility] CO2 [Moles/Vol] 30 mmol/L 21 - 31 mmol/L [facility] Creatinine [Mass/Vol] 0.79 mg/dL 0.70 - 1.30 mg/dL [facility] GFR/1.73 sq M.predicted CKD-EPI (S/P/Bld) [Vol rate/Area] 93 - PINF [facility] Glucose [Mass/Vol] 139 mg/dL High 74 - 109 mg/dL [facility] Potassium [Moles/Vol] 3.7 mmol/L 3.5 - [...] [#/Vol] 159 10*3/uL 150 - 400 K/uL [facility] RBC (Bld) [#/Vol] 2.53 10*6/uL Low [facility] WBC (Bld) [#/Vol] 8.7 10*3/uL 4.5 - 11.5 K/uL [facility] COMPLETE BLOOD COUNTon 02-20 Erythrocyte distribution width (RBC) [Ratio] 14.7 % High 11.5-14.[address] [facility] Comment on above: Performed By: #### T S #### [facility] [address] [place] [address], Hematocrit (Bld) [Volume fraction] 23.3 % Low 41.0-53.[address] [facility] Comment on above: Performed By: #### T S #### [facility] [address] [place] [address], Hemoglobin (Bld) [Mass/Vol] 7.7 g/dL Low 13.9-16.[address] [facility] Comment on above: Performed By: #### T S #### [facility] [address] [place] [address], MCH (RBC) [Entitic mass] 30.2 pg Normal 26.0-34.[address] [facility] Comment on above: Performed By: #### T S #### [facility] [address] [place] [address], MCHC (RBC) [Mass/Vol] 33.2 g/dL Normal 32.0-35.[address] [facility] Comment on above: Performed By: #### T S #### [facility] [address] [place] [address], MCV (RBC) [Entitic vol] 91 fL Normal 80-[address] [facility] Comment on above: Performed By: #### T S #### S PATHOLOGY LABORATORY [address] [place] [address], Platelet mean volume (Bld) [Entitic vol] 8.5 fL Normal 7.5-11.[address] [facility] Comment on above: Performed By: #### T S #### S [facility] LAB[facility] [address] [place] [address], Platelets (Bld) [#/Vol] 192 10*3/uL Normal 150-[address] [facility] Comment on above: Performed By: #### T S #### [facility] [address] [place], [place], RBC (Bld) [#/Vol] 2.56 10*6/uL Low 4.50-5.90 [facility] Comment on above: Performed By: #### T S #### [facility] [address] [place], [place], WBC (Bld) [#/Vol] 9.1 10*3/uL Normal 4.5-11.5 [facility] Comment on above: Performed By: #### T S #### [facility] [address] [place], [place], Erythrocyte distribution width (RBC) [Ratio] 14.4 % Normal 11.5-14.5 [facility] Comment on above: Performed By: #### C BC #### [facility] [address] [place] [address], Hematocrit (Bld) [Volume fraction] 22.8 % Low 41.0-53.0 [facility] Comment on above: Performed By: #### C BC #### [facility] [address] [place] [address], Hemoglobin (Bld) [Mass/Vol] 7.8 g/dL Low 13.9-16.3 [facility] Comment on above: Performed By: #### C BC #### [facility] [address] [place] [address], MCH (RBC) [Entitic mass] 31.0 pg Normal 26.0-34.0 [facility] Comment on above: Performed By: #### C BC #### [facility] [address] [place], [place], MCHC (RBC) [Mass/Vol] 34.4 g/dL Normal 32.0-35.9 [facility] Comment on above: Performed By: #### C BC #### [facility] [address] [place], [place], MCV (RBC) [Entitic vol] 90 fL Normal 80-100 [facility] Comment on above: Performed By: #### C BC #### [facility] [address] [place], [place], Platelet mean volume (Bld) [Entitic vol] 9.0 fL Normal 7.5-11.2 [facility] Comment on above: Performed By: #### C BC #### [facility] [address] [place] [address], Platelets (Bld) [#/Vol] 159 10*3/uL Normal 150-400 [facility] Comment on above: Performed By: #### C BC #### [facility] [address] [place], [place], RBC (Bld) [#/Vol] 2.53 10*6/uL Low 4.50-5.90 [facility] Comment on above: Performed By: #### C BC #### [facility] [address] [place] [address], WBC (Bld) [#/Vol] 8.7 10*3/uL Normal 4.5-11.5 [facility] Comment on above: Performed By: #### C BC #### [facility] [address] [place] [address], COVID/INFLUENZAon 02-20-2023 INFLUENZA A Not detected Normal Not Detected [facility] Comment on above: Order Comment: Not D etected results are indicative of the absence of SARS-CoV-2 in the specimen submitted for testing. False negative results are possible based on the timing and quality of specimen submitted for testing. Result Comment: This assay was performed using [employer] RTPCR technology. Performed By: #### T S #### [facility] [address] [place], [place], INFLUENZA B Not detected Normal Not Detected [facility] Comment on above: Order Comment: Not D etected results are indicative of the absence of SARS-CoV-2 in the specimen submitted for testing. False negative results are possible based on the timing and quality of specimen submitted for testing. Result Comment: This assay was performed using [employer] RTPCR technology. Performed By: #### T S #### [facility] [address] [place] [address], SARS-CoV-2 (COVID-19) RNA FABI+probe Ql (Unsp spec) Not detected Normal Not Detected [facility] Comment on above: Order Comment: Not D etected results are indicative of the absence of SARS-CoV-2 in the specimen submitted for testing. False negative results are possible based on the timing and quality of specimen submitted for testing. Result Comment: This assay was performed using [employer] RTPCR technology. Performed By: #### T S #### [facility] [address] [place], [place], COVID/INFLUENZAOrdered By: Prisca Vogel on 02-20-2023 FLUAV RNA FABI+probe Ql (Nph) Not detected Not Detected [facility] FLUBV RNA FABI+probe Ql (Nph) Not detected Not Detected [facility] Interpretation and review of laboratory results Normal [facility] SARS-CoV-2 (COVID-19) RNA FABI+probe Ql (Unsp spec) Not detected Not Detected [facility] Care Plan Noteon 02-20-2023 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 Interface Message Text Called to bedside to assess for left arm swelling. Does appear left arm is asymmetrically swollen compared to right. Neurovascularly intact however. Denies chest pain, sob at this time. Will order duplex RUE to r/o dvt. Kevin Barrientos, Normal [facility] 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 Interface Message Text Noticed increased swelling and warmth on Left arm compared to earlier in shift and Right arm. Pt was also unable to be weaned off O2 as well and complains of shortness of breath at times, and cannot tolerate lying flat. Vitals unremarkable otherwise. MD desk monitor notified and will come bedside after trauma. Normal [facility] MAGNESIUMon 02-20-2023 Magnesium [Mass/Vol] 2.0 mg/dL Normal 1.6-2.8 [facility] Comment on above: Performed By: #### C MIGUEL Mendoza MG ####[facility] [id number] [place], [place], Magnesium [Mass/Vol] 2.0 mg/dL 1.6 - 2.8 mg/dL [facility] Magnesium [Mass/Vol] 1.9 mg/dL Normal 1.6-2.8 [facility] Comment on above: Performed By: #### M G, CH8, PHOS #### [facility] [address] [place], [place], Interpretation and review of laboratory results Normal [facility] Magnesium [Mass/Vol] 1.9 mg/dL 1.6 - 2.8 mg/dL [facility] No Panel Informationon 02-20 Interpretation and review of laboratory results [facility] Interpretation and review of laboratory results Abnormal [facility] PHOSPHORUSon 02-20-2023 Phosphate [Mass/Vol] 2.8 mg/dL Normal 2.3-4.2 [facility] Comment on above: Performed By: #### C H8, PHOS, MG ####[facility] [id number] [place], [place], Phosphate [Mass/Vol] 2.8 mg/dL 2.3 - 4.2 mg/dL [facility] Phosphate [Mass/Vol] 2.2 mg/dL Low 2.3-4.2 [facility] Comment on above: Performed By: #### M G, CH8, PHOS #### [facility] [address] [place], [place], Phosphate [Mass/Vol] 2.2 mg/dL Low 2.3 - 4.2 mg/dL [facility] Progress Noteson 02-20-2023 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 Interface Message Text [facility] 02/20/2023 Reason for Services: Follow-Up Bacon Skin Lifter attempted to visit with patient for follow up regarding resources and education provided and answer any questions. Patient was asleep at time of visit. Bacon Skin Lifter will attempt to engage with Patient and/or Family the next business day. Jess Henley Main Line: [phone] Normal [facility] 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 Interface Message Text SW/CM aware that patient meets criteria for SNF. Met with Pt on unit to discuss dispo. Patient open and agreeable to SNF placement. CM/SW provided pt the quality and resource use measure data from available post-acute (PAC) providers, that best align with the patient's treatment goals and preferences from the medicare.gov compare site for SNF. [place] of Choice was provided to the patient/patient airport representative. Pt want's RAE STROUD [phone] as decision maker for dc planning SW/CM will follow up for choices. Addendum 2:06pm SW called pt's RAE STROUD [phone] she gave the following facility choices [facility] Ms. Stroud has surgery tomorrow, pt's son Anibal Stroud [phone] will be main life insurance salesperson for the family. SW sent referrals SW will continue to follow Pt will not need precert Aj Marie MSSA,INK PRINTER Normal [facility] URINALYSIS WITH REFLEX [...] Performed By: #### A XL ####[facility] [id number] [place], [place], LMW Heparin Chromogenic method Qn (PPP) 0.32 IU/mL [facility] BASIC METABOLIC PANELon 12-2 Anion gap [Moles/Vol] 10 mmol/L Normal 10-[address] [facility] Comment on above: Performed By: #### C H8, PHOS, MG ####[facility] [id number] [place], [place], Calcium [Mass/Vol] 7.9 mg/dL Low 8.6-10.[address] [facility] Comment on above: Result Comment: Note updated reference ranges. Performed By: #### C H8, PHOS, MG ####[facility] [id number] [place], [place], Chloride [Moles/Vol] 105 mmol/L Normal 98-[address] [facility] Comment on above: Result Comment: Note updated reference ranges. Performed By: #### C H8, PHOS, MG ####[facility] [id number] [place], CO2 [Moles/Vol] 28 mmol/L Normal 21-[address] [facility] Comment on above: Result Comment: Note updated reference ranges. Performed By: #### C H8, PHOS, MG ####[facility] [id number] [place], [place], Creatinine [Mass/Vol] 0.66 mg/dL Low 0.70-1.[address] [facility] Comment on above: Result Comment: Note updated reference ranges. Performed By: #### C H8, PHOS, MG ####[facility] [id number] [place], [place], ESTIMATED GFR (CKD-EPI) 98 mL/min/1.73sqm Normal >=[address] [facility] Comment on above: Result Comment: 2020 [...] Med 1 Vol. 385 Issue 19 Pages [id number] Performed By: #### MIGUEL Carpenter MG ####[facility] [id number] [place], [place], Glucose [Mass/Vol] 116 mg/dL High 74-109 [facility] Comment on above: Performed By: #### MIGUEL Carpenter, MG ####[facility] [id number] [place], [place], Potassium [Moles/Vol] 4.4 mmol/L Normal 3.5-5.0 [facility] Comment on above: Result Comment: Note updated reference ranges. Note updated reference ranges. Performed By: #### Vijaya Mendoza PHOVan, MG ####[facility] [id number] [place], [place], Sodium [Moles/Vol] 139 mmol/L Normal 136-145 [facility] Comment on above: Result Comment: Note updated reference ranges. Performed By: #### Vijaya HMIGUEL Gutierrez, MG ####[facility] [id number] [place], [place], Urea nitrogen [Mass/Vol] 19 mg/dL Normal 7-25 [facility] Comment on above: Result Comment: Note updated reference ranges. Performed By: #### C HMatt PHOS, MG ####[facility] [id number] [place], [place], Basic metabolic 2000 panelon 02-19-2023 Anion gap [Moles/Vol] 10 mmol/L 10 - 20 [facility] Calcium [Mass/Vol] 7.9 mg/dL Low 8.6 - 10. 3 mg/dL [facility] Chloride [Moles/Vol] 105 mmol/L 98 - 107 mmol/L [facility] CO2 [Moles/Vol] 28 mmol/L 21 - 31 mmol/L [facility] Creatinine [Mass/Vol] 0.66 mg/dL Low 0.70 - 1.30 mg/dL [facility] GFR/1.73 sq M.predicted CKD-EPI (S/P/Bld) [Vol rate/Area] 98 - PINF [facility] Glucose [Mass/Vol] 116 mg/dL High 74 - 109 mg/dL [facility] Interpretation and review of laboratory results Abnormal [facility] Potassium [Moles/Vol] 4.4 mmol/L 3.5 - 5.0 mmol/L [facility] Sodium [Moles/Vol] 139 mmol/L 136 - 145 mmol/L [facility] Urea nitrogen [Mass/Vol] 19 mg/dL 7 - 25 mg/dL [facility] CBC panel Auto (Bld)on 02-19 Erythrocyte distribution width (RBC) [Ratio] 14.5 % 11.5 - 14.5 % [facility] Hematocrit (Bld) [Volume fraction] 21.3 % Low 41.0 - 53.0 % [facility] Hemoglobin (Bld) [Mass/Vol] 7.3 g/dL Low 13.9 - 16.3 g/dL [facility] Interpretation and review of laboratory results Abnormal [facility] MCH (RBC) [Entitic mass] 30.9 pg 26.0 - 34.0 pg [facility] MCHC (RBC) [Mass/Vol] 34.5 g/dL 32.0 - 35.9 g/dL [facility] MCV (RBC) [Entitic vol] 90 fL 80 - 100 fL [facility] Platelet mean volume (Bld) [Entitic vol] 8.3 fL 7.5 - 11.2 fL [facility] Platelets (Bld) [#/Vol] 116 10*3/uL Low 150 - 400 K/uL [facility] RBC (Bld) [#/Vol] 2.38 10*6/uL Low [facility] WBC (Bld) [#/Vol] 5.7 10*3/uL 4.5 - 11.5 K/uL [facility] COMPLETE BLOOD COUNTon 02-19 Erythrocyte distribution width (RBC) [Ratio] 14.5 % Normal 11.5-14.[address] [facility] Comment on above: Performed By: #### ASIA Freitas, MIGUEL #### [facility] [address] [place] [address], Hematocrit (Bld) [Volume fraction] 21.3 % Low 41.0-53.0 [facility] Comment on above: Performed By: #### ASIA Freitas, PHOS #### [facility] [address] [place] [address], Hemoglobin (Bld) [Mass/Vol] 7.3 g/dL Low 13.9-16.[address] [facility] Comment on above: Performed By: #### ASIA Freitas, PHOS #### S PATHOLOGY LABORATORY [address] [place] [address], MCH (RBC) [Entitic mass] 30.9 pg Normal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 Transthoracic Echocardiographic Report Name: JUAN GONZALEZ Interpreting KAROLINA Leung Physician: : [id number] Referring RITTER LELO ESCOBEDO Physician: Age: 72 Playground Supervisor: Radha Kay RDCS Exam Date: 02/18/2023 Fellow: [...] Doctor's order(s) verified. Patient's preferred language is Cape Verdean . Verbal consent for left heart echo [...] 02/18/2023 08:59 AM Invalid Interpretation Code [facility] [employer] [facility] Progress Noteson 02-18-2023 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 Interface Message Text 72M s/p ORIF [...] A. Please page: Ortho Team A: Seamus (Connie) Stefanie, PGY3: [phone] John Camp, PGY1: [phone] Ortho Team B: Kassie Coles, PGY2: [phone] Adrien Peña, PGY2: [phone] Mehran Warner, PGY4 [phone] Ortho Elective Team: Justice Mccann, PGY3: [phone] Yo Champion, PGY2: [phone] Ortho Hand Team: Scot Dean, PGY4: [phone] Douglas Worthington, PGY4: [phone] After 5pm, weekends, and holidays please page Ortho/On-call consult pager, [phone] Normal [facility] [employer] [facility] Music Video Producer [employer] Interface Message Text [facility] 02/18/2023 Services Provide For: Patient/Family Referred By: Inpatient trauma list Services Provided by: Developer Advocate Reason for Services: Initial Visit Immediate Needs: None identified Bacon Skin Lifter educated patient and visitors at bedside on Trauma Recovery Center and Resources. In addition, informed of [facility] [employer] [facility] Resources available when and where appropriate. Bacon Skin Lifter will remain available for support. ? Jess Henley Main Line: [phone] Normal [facility] [employer] [facility] [employer] Interface Message Text -------- GENERAL INFORMATION -------- [...] R rib 9-10 fracture was seen at [facility].The patient had 5 packs of RBCs, 3 packs of FFP, 1 platelet, TXA and Vit K from when he arrived to [facility] and in transit. Patient takes coumadin. Hospital Course: 02/16-became hypotensive, concern for aspiration PNA. Central line, art line placed. On dual pressors. 02/17-weaned off pressors. coat presser attempted bedside echo. 24-hour Events: Patient weaned [...] for OR Respiratory: Hx of COPD -respiratory marketing communication manager protocol -encourage IS -goal O2 >90% -home [...] f (more content not included)... Normal [facility] [employer] [facility] 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 Interface Message Text Pharmacokinetic Dosing Service [...] 492; Next level Due:24-36hrs, Level not ordered [facility] Pharmacokinetics Note Drug: Vancomycin Pharmacokinetic target: AUC24 (range) 400-600 mg/L.hr Current regimen: 1750 mg IV every 24 hours Fredrick Stroud is a(n) 72 years old male receiving Vancomycin 1750 mg IV every 24 hours for Pneumonia Recent measured serum creatinine values: 02/18/2023 04:15 0.62 mg/dL 02/17/2023 00:25 1 mg/dL 02/16/2023 16:59 1.38 mg/dL Assessment: Analysis of the most recent level(s) using [employer] gives the following patient-specific pharmacokinetic parameters: CL: [...] creatinine clearance: 127.3 mL/min (A) Culture(s): N/A [facility] Dosing Consult The medication regimen has been updated per consult agreement procedures. Pharmacy will post notes for levels upon return and for dose changes. Normal [facility] RED BLOOD CELL COMPONENTon 1 04-21-2022 BB ORDER ITEM Product status info to follow Normal The [facility] Comment on above: Performed By: #### M ASIA Harper, MIGUEL #### [facility] [address] [place] [address], [id number] BB Order Item Product status info to follow [facility] RED BLOOD CELL UNIT STATUSon 02-18-2023 Blood product unit Nom (BPU) [ID] [id number] [facility] Blood product unit Nom (BPU) [ID] [id number] [facility] Blood product unit Nom (BPU) [ID] [id number] [facility] Blood product unit Nom (BPU) [ID] [id number] [facility] BLOOD PRODUCT CODE [id number] Normal [facility] Comment on above: Performed By: #### P T #### [facility] [address] [place] [address], Performed By: #### Jennifer Harper CH8, PHOS #### [facility] [address] [place] [address], Performed By: #### R BU ####[facility] [id number] [place], BLOOD PRODUCT DESCRIPTION Red Blood Cells Normal The [facility] Comment on above: Performed By: #### P T #### [facility] [address] [place] [address], Performed By: #### Jennifer Harper CH8, PHOS #### [facility] [address] [place] [address], Performed By: #### R BU ####[facility] [id number] [place], BLOOD PRODUCT STATUS Returned to Bld Bnk Normal The [facility] Comment on above: Performed By: #### P T #### [facility] [address] [place] [address], Performed By: #### Jennifer Harper CH8, PHOS #### [facility] [address] [place] [address], Performed By: #### R BU ####[facility] [id number] [place], BLOOD PRODUCT UNIT INFO [id number] Normal The [facility] Comment on above: Performed By: #### P T #### [facility] [address] [place] [address], BLOOD PRODUCT UNIT INFO [id number] Normal [facility] Comment on above: Performed By: #### ASIA Freitas, PHOS #### [facility] [address] [place] [address], BLOOD PRODUCT UNIT INFO [id number] Normal [facility] Comment on above: Performed By: #### R BU ####[facility] [id number] [place], BLOOD PRODUCT UNIT INFO [id number] Normal [facility] Comment on above: Performed By: #### R BU ####[facility] [id number] [place], BLOOD PRODUCT UNIT TYPE 5100 Normal [facility] Comment on above: Result Comment: O Po s Performed By: #### P T #### S PATHOLOGY LABORATORY [address] [place] [address], Performed By: #### ASIA Freitas, PHOVan #### S PATHOLOG[facility] LABORATORY [address] [place] [address], Performed By: #### R BU ####[facility] [id number] [place], CROSSMATCH INTERPRETATION Compatible (E) Normal The [facility] Comment on above: Performed By: #### P T #### [facility] [address] [place] [address], Performed By: #### ASIA Freitas, PHOS #### [facility] [address] [place] [address], Performed By: #### R BU ####[facility] [id number] [place], [place], Transfer Documentson 023 Transfer Documents [id number] 1.00TIFF Normal [facility] VANCOMYCIN RANDOMon 02-19-20 23 VANC R 8.2 ug/mL Normal 5.0-40.0 [facility] Comment on above: Performed By: #### P T #### S PATHOLOGY LABORATORY [address] [place] [address], Vancomycin [Mass/Vol] 8.2 ug/mL 5.0 - 40.0 ug/mL [facility] BASIC METABOLIC PANELon 12-2 Anion gap [Moles/Vol] 11 mmol/L Normal 10-[address] [facility] Comment on above: Performed By: #### ASIA Freitas, PHOS #### [facility] [address] [place] [address], Calcium [Mass/Vol] 8.3 mg/dL Low 8.6-10.3 [facility] Comment on above: Result Comment: Note updated reference ranges. Performed By: #### ASIA Freitas, PHOS #### [facility] [address] [place] [address], Chloride [Moles/Vol] 105 mmol/L Normal 98-[address] [facility] Comment on above: Result Comment: Note updated reference ranges. Performed By: #### ASIA Freitas, PHOS #### [facility] [address] [place] [address], CO2 [Moles/Vol] 24 mmol/L Normal 21-[address] [facility] Comment on above: Result Comment: Note updated reference ranges. Performed By: #### ASIA Freitas, PHOS #### [facility] [address] [place] [address], Creatinine [Mass/Vol] 1.00 mg/dL Normal 0.70-1.[address] [facility] Comment on above: Result Comment: Note updated reference ranges. Performed By: #### ASIA Freitas, PHOS #### [facility] [address] [place] [address], ESTIMATED GFR (CKD-EPI) 79 mL/min/1.73sqm Normal >=60 [facility] Comment on above: Result [...] Med 1 Vol. 385 Issue 19 Pages 9332-4502 Performed By: #### ASIA Freitas, PHOS #### [facility] [address] [place] [address], Glucose [Mass/Vol] 189 mg/dL High 74-109 [facility] Comment on above: Performed By: #### ASIA Freitas, PHOS #### [facility] [address] [place], [place], Potassium [Moles/Vol] 4.0 mmol/L Normal 3.5-5.0 [facility] Comment on above: Result Comment: Note updated reference ranges. Note updated reference ranges. Performed By: #### ASIA Freitas, PHOS #### [facility] [address] [place] [address], Sodium [Moles/Vol] 136 mmol/L Normal 136-[address] [facility] Comment on above: Result Comment: Note updated reference ranges. Performed By: #### ASIA Freitas, PHOS #### [facility] [address] [place] [address], Urea nitrogen [Mass/Vol] 36 mg/dL High 7-[address] [facility] Comment on above: Result Comment: Note updated reference ranges. Performed By: #### ASIA Freitas, PHOS #### [facility] [address] [place] [address], BLOOD GAS, ARTERIALon 2022 CR GEOVANNI -1.0 mmol/L Normal -2.0-3.0 [facility] Comment on above: Performed By: #### C BC #### [facility] [address] [place] [address], CR PCO2 38.6 mm Hg Normal 35.0-45.0 [facility] Comment on above: Performed By: #### C BC #### [facility] [address] [place] [address], CR PHA 7.395 Normal 7.350-7.450 The [facility] Comment on above: Performed By: #### C BC #### S PATHOLOGY LABORATORY [address] [place] [address], CR PO2 81 mm Hg Normal 80-100 [facility] Comment on above: Performed By: #### C BC #### [facility] [address] [place] [address], FIO2 (CATEGORY) 2 LPM Normal The [facility] Comment on above: Performed By: #### C BC #### [facility] [address] [place] [address], HCO3 (Bld) [Moles/Vol] 23 mmol/L Normal 21-28 [facility] Comment on above: Performed By: #### C BC #### [facility] [address] [place] [address], MODE Nasal Canula Normal [facility] Comment on above: Performed By: #### C BC #### [facility] [address] [place] [address], Oxygen saturation in Blood 96.1 % Normal 95.0-99.0 [facility] Comment on above: Performed By: #### C BC #### [facility] [address] [place] [address], BLOOD GAS, VENOUSon 02-18-20 23 CR ABEV -0.3 mmol/L Normal -2.0-3.0 [facility] Comment on above: Performed By: #### C BC #### [facility] PATH[facility] [address] [place] [address], CR HCO3V 25 mmol/L Normal 21-28 [facility] Comment on above: Performed By: #### C BC #### S PATHOLOGY LABORATORY [address] [place] [address], CR PHV 7.367 Normal 7.320-7.430 [facility] Comment on above: Performed By: #### C BC #### [facility] [address] [place] [address], CR PVCO2 43.8 mm Hg Normal 41.0-51.0 [facility] Comment on above: Performed By: #### C BC #### [facility] [address] [place], [place], CR PVO2 36 mm Hg Low 38-[address] [facility] Comment on above: Performed By: #### C BC #### [facility] [address] [place], [place], Oxygen saturation in Blood 67.1 % Low 70.0-80.[address] [facility] Comment on above: Performed By: #### C BC #### S PATHOLOGY LABORATORY [address] [place], [place], Basic metabolic 2000 panelon 02-17-2023 Anion gap [Moles/Vol] 11 mmol/L 10 - 20 Met [facility] Calcium [Mass/Vol] 8.3 mg/dL Low 8.6 - 10. 3 mg/dL [facility] Chloride [Moles/Vol] 105 mmol/L 98 - 107 mmol/L [facility] CO2 [Moles/Vol] 24 mmol/L 21 - 31 mmol/L [facility] Creatinine [Mass/Vol] 1.00 mg/dL 0.70 - 1.30 mg/dL [facility] GFR/1.73 sq M.predicted CKD-EPI (S/P/Bld) [Vol rate/Area] 79 - PINF [facility] Glucose [Mass/Vol] 189 mg/dL High 74 - 109 mg/dL [facility] Interpretation and review of laboratory results Abnormal [facility] Potassium [Moles/Vol] 4.0 mmol/L 3.5 - 5.0 mmol/L [facility] Sodium [Moles/Vol] 136 mmol/L 136 - 145 mmol/L [facility] Urea nitrogen [Mass/Vol] 36 mg/dL High 7 - 25 mg/dL [facility] CBC panel Auto (Bld)on 02-17 Erythrocyte distribution width (RBC) [Ratio] 14.9 % High 11.5 - 14.5 % [facility] Hematocrit (Bld) [Volume fraction] 29.5 % Low 41.0 - 53.0 % [facility] Hemoglobin (Bld) [Mass/Vol] 10.1 g/dL Low 13.9 - 16.3 g/dL [facility] Interpretation and review of laboratory results Abnormal [facility] MCH (RBC) [Entitic mass] 30.3 pg 26.0 - 34.0 pg [facility] MCHC (RBC) [Mass/Vol] 34.2 g/dL 32.0 - 35.9 g/dL [facility] MCV (RBC) [Entitic vol] 89 fL 80 - 100 fL [facility] Platelet mean volume (Bld) [Entitic vol] 8.6 fL 7.5 - 11.2 fL [facility] Platelets (Bld) [#/Vol] 145 10*3/uL Low 150 - 400 K/uL [facility] RBC (Bld) [#/Vol] 3.33 10*6/uL Low [facility] WBC (Bld) [#/Vol] 9.9 10*3/uL 4.5 - 11.5 K/uL M [facility] COMPLETE BLOOD COUNTon 02-17 Erythrocyte distribution width (RBC) [Ratio] 14.9 % High 11.5-14.[address] [facility] Comment on above: Performed By: #### C BC ####[facility] PATHOLOGY [id number] [place] [address], Hematocrit (Bld) [Volume fraction] 29.5 % Low 41.0-53.[address] [facility] Comment on above: Performed By: #### C BC ####[facility] PATHOLOGY [id number] [place] [address], Hemoglobin (Bld) [Mass/Vol] 10.1 g/dL Low 13.9-16.[address] [facility] Comment on above: Performed By: #### C BC ####[facility] PATHOLOGY [id number] [place], [place], MCH (RBC) [Entitic mass] 30.3 pg Normal 26.0-34.[address] [facility] Comment on above: Performed By: #### C BC ####S PATHOLOGY [id number] [place], MCHC (RBC) [Mass/Vol] 34.2 g/dL Normal 32.0-35.[address] [facility] Comment on above: Performed By: #### C BC ####S PATHOLOGY [id number] [place] [address], MCV (RBC) [Entitic vol] 89 fL Normal 80-100 [facility] Comment on above: Performed By: #### C BC ####[facility] PATHOLOGY [id number] [place], [place], Platelet mean volume (Bld) [Entitic vol] 8.6 fL Normal 7.5-11.2 The [facility] Comment on above: Performed By: #### C BC ####[facility] PATHOLOGY [id number] [place], [place], Platelets (Bld) [#/Vol] 145 10*3/uL Low 150-400 [facility] Comment on above: Performed By: #### C BC ####[facility] PATHOLOGY [id number] [place], RBC (Bld) [#/Vol] 3.33 10*6/uL Low 4.50-5.90 [facility] Comment on above: Performed By: #### C BC ####[facility] PATHOLOGY [id number] [place], WBC (Bld) [#/Vol] 9.9 10*3/uL Normal 4.5-11.5 [facility] Comment on above: Performed By: #### C BC ####[facility] PATHOLOGY [id number] [place], [place], Care Plan Noteon 02-17-2023 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 Interface Message Text Problem: Routine Care: [...] will be met Outcome: Progressing Normal [facility] Consultson 02-17-2023 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 Interface Message Text PHYSICAL/OCCUPATIONAL THERAPY Attempted to see patient for PT/OT evals this date. Patient scheduled for OR this date for fixation of left femur fracture. Will follow up post-operative as able and medically appropriate. Sylvia Alcantara PT Normal [facility] GLUCOSE, FINGERSTICK-IN OFFI CEon 02-17-2023 Glucose [Mass/Vol] 140 mg/dL High 80-116 [facility] Comment on above: Performed By: #### 8 2948 #### NURSING GLUCOSE PROGRAM [address] [place], [address] Glucose [Mass/Vol] 140 mg/dL High 80 - 116 mg/dL [facility] Interpretation and review of laboratory results Abnormal [facility] MAGNESIUMon 02-17-2023 Magnesium [Mass/Vol] 1.7 mg/dL Normal 1.6-2.8 [facility] Comment on above: Performed By: #### C BC #### [facility] [address] [place], [address] Magnesium [Mass/Vol] 1.7 mg/dL 1.6 - 2.8 mg/dL [facility] MRSA SCREENOrdered By: Shari Ceja on 02-17-2023 Interpretation and review of laboratory results Normal [facility] MRSA isol Org specific cx Ql (Nose) No methicillin resistant Staphylococcus aureus isolated. No methicillin resistant Staphylococcus aureus isolated. [facility] No Panel Informationon 02-17 Interpretation and review of laboratory results Normal [facility] PHOSPHORUSon 02-17-2023 Phosphate [Mass/Vol] 2.6 mg/dL Normal 2.3-4.2 The [employer] [facility] Comment on above: Performed By: #### C #### [facility] [address] [place] [address], [phone] Phosphate [Mass/Vol] 2.6 mg/dL 2.3 - 4.2 mg/dL [facility] Progress Noteson 02-17-2023 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 Interface Message Text -------- GENERAL INFORMATION [...] R rib 9-10 fracture was seen at [facility].The patient had 5 packs of RBCs, 3 packs of FFP, 1 platelet, TXA and Vit K from when he arrived to [facility] and in transit. Patient takes coumadin. Hospital [...] Echo pending Respiratory: Hx of COPD -respiratory marketing communication manager protocol -enc (more content not included)... Normal The [employer] [facility] XR CHEST AP OR PA 1 [...] is also seen. MACRO: None Normal The [employer] [facility] ABO RH TYPEon 02-16-2023 ABO and Rh group Nom (Bld) Blood group O Rh(D) positive Normal The [employer] [facility] Comment on above: Performed By: #### 8 3031 #### [facility] ([place], [place]) GLUCOSE PROGRAM [address] [place], [address] BASIC METABOLIC PANELon 01-25 Anion gap [Moles/Vol] 14 mmol/L Normal 10-20 The [employer] [facility] Comment on above: Performed By: #### C BC #### S PATHOLOGY LABORATORY [address] [place], [address] Calcium [Mass/Vol] 8.3 mg/dL Low 8.6-10.3 The [employer] [facility] Comment on above: Result Comment: Note updated reference ranges. Performed By: #### C BC #### [facility] [address] [place], [place], Chloride [Moles/Vol] 109 mmol/L High 98-107 [facility] Comment on above: Result Comment: Note updated reference ranges. Performed By: #### C BC #### [facility] [address] [place], [place], CO2 [Moles/Vol] 20 mmol/L Low 21-31 [facility] Comment on above: Result Comment: Note updated reference ranges. Performed By: #### C BC #### S PATHOLOGY LABORATORY [address] [place], [place], Creatinine [Mass/Vol] 1.38 mg/dL High 0.70-1.30 The [facility] Comment on above: Result Comment: Note updated reference ranges. Performed By: #### C BC #### [facility] PATHOLOGY LABORATORY [address] [place], [place], ESTIMATED GFR (CKD-EPI) 54 mL/min/1.73sqm Low >=60 The [employer] [facility] Comment on above: Result Comment: 2020 [...] Med 2020 Vol. 385 Issue 19 Pages [id number] Performed By: #### C BC #### S PATHOLOGY LABORATORY [address] [place], [place], Glucose [Mass/Vol] 171 mg/dL High 74-109 [facility] Comment on above: Performed By: #### C BC #### S PATHOLOGY LABORATORY [address] [place], [place], Potassium [Moles/Vol] 4.5 mmol/L Normal 3.5-5.0 The [employer] [facility] Comment on above: Result Comment: Note updated reference ranges. Note updated reference ranges. Performed By: #### C BC #### S PATHOLOGY LABORATORY [address] [place], [place], Sodium [Moles/Vol] 138 mmol/L Normal 136-[address] [facility] Comment on above: Result Comment: Note updated reference ranges. Performed By: #### C BC #### S PATHOLOGY LABORATORY [address] [place], [place], Urea nitrogen [Mass/Vol] 38 mg/dL High 7-[address] [facility] Comment on above: Result Comment: Note updated reference ranges. Performed By: #### C BC #### [facility] PATHOLOGY LABORATORY [address] [place], [place], Anion gap [Moles/Vol] 13 mmol/L Normal 10-[address] [facility] Comment on above: Performed By: #### C BC #### [facility] PATHOLOGY LABORATORY [address] [place], [place], Calcium [Mass/Vol] 9.8 mg/dL Normal 8.6-10.[address] [facility] Comment on above: Result Comment: Note updated reference ranges. Performed By: #### C BC #### [facility] PATHOLOGY LABORATORY [address] [place], [place], Chloride [Moles/Vol] 111 mmol/L High 98-[address] [facility] Comment on above: Result Comment: Note updated reference ranges. Performed By: #### C BC #### S PATHOLOGY LABORATORY [address] [place], [place], CO2 [Moles/Vol] 25 mmol/L Normal 21-[address] [facility] Comment on above: Result Comment: Note updated reference ranges. Performed By: #### C BC #### S PATHOLOGY LABORATORY [address] [place], [place], Creatinine [Mass/Vol] 1.12 mg/dL Normal 0.70-1.30 [facility] Comment on above: Result Comment: Note updated reference ranges. Performed By: #### C BC #### S PATHOLOGY LABORATORY [address] [place], [place], ESTIMATED GFR (CKD-EPI) 69 mL/min/1.73sqm Normal [...] Med 2020 Vol. 385 Issue 19 Pages [id number] Performed By: #### C BC #### S PATHOLOGY LABORATORY [address] [place] [address], Glucose [Mass/Vol] 130 mg/dL High 74-109 [facility] Comment on above: Performed By: #### C BC #### S PATHOLOGY LABORATORY [address] [place] [address], Potassium [Moles/Vol] 5.3 mmol/L High 3.5-5.0 [facility] Comment on above: Result Comment: Note updated reference ranges. Note updated reference ranges. Performed By: #### C BC #### S PATHOLOGY LABORATORY [address] [place] [address], Sodium [Moles/Vol] 144 mmol/L Normal 136-145 [facility] Comment on above: Result Comment: Note updated reference ranges. Performed By: #### C BC #### S PATHOLOGY LABORATORY [address] [place] [address], Urea nitrogen [Mass/Vol] 27 mg/dL High 7-25 [facility] Comment on above: Result Comment: Note updated reference ranges. Performed By: #### C BC #### S PATHOLOGY LABORATORY [address] [place] [address], Anion gap [Moles/Vol] 12 mmol/L Normal 10-20 [facility] Comment on above: Performed By: #### 8 2948 #### [facility] ([place], [place]) GLUCOSE PROGRAM [address] [place] [address], [address] Calcium [Mass/Vol] 10.2 mg/dL Normal 8.6-10.3 [facility] Comment on above: Result Comment: Note updated reference ranges. Performed By: #### 8 2948 #### NURSING GLUCOSE PROGRAM [address] [place], [address] Chloride [Moles/Vol] 108 mmol/L High 98-107 [facility] Comment on above: Result Comment: Note updated reference ranges. Performed By: #### 8 2948 #### NURSING GLUCOSE PROGRAM [address] [place], [address] CO2 [Moles/Vol] 28 mmol/L Normal 21-31 [facility] Comment on above: Result Comment: Note updated reference ranges. Performed By: #### 8 2948 #### NURSING GLUCOSE PROGRAM [address] [place], [address] Creatinine [Mass/Vol] 1.02 mg/dL Normal 0.70-1.30 [facility] Comment on above: Result Comment: Note updated reference ranges. Performed By: #### 8 2948 #### NURSING GLUCOSE PROGRAM [address] [place], [address] ESTIMATED GFR (CKD-EPI) 77 mL/min/1.73sqm Normal >=60 [...] Med 1 Vol. 385 Issue 19 Pages [id number] Performed By: #### 8 2948 #### NURSING GLUCOSE PROGRAM [address] [place], [address] Glucose [Mass/Vol] 125 mg/dL High 74-109 [facility] Comment on above: Performed By: #### 8 2948 #### NURSING GLUCOSE PROGRAM [address] [place], [address] Potassium [Moles/Vol] 4.5 mmol/L Normal 3.5-5.0 [facility] Comment on above: Result Comment: Note updated reference ranges. Note updated reference ranges. Performed By: #### 8 2948 #### NURSING GLUCOSE PROGRAM [address] [place], [address] Sodium [Moles/Vol] 143 mmol/L Normal 136-145 [facility] Comment on above: Result Comment: Note updated reference ranges. Performed By: #### 8 2948 #### NURSING GLUCOSE PROGRAM [address] [place], [address] Urea nitrogen [Mass/Vol] 25 mg/dL Normal 7-25 [facility] Comment on above: Result Comment: Note updated reference ranges. Performed By: #### 8 2948 #### NURSING GLUCOSE PROGRAM [address] [place], [address] BLOOD CULTUREon 02-16-2023 Bacteria identified Cx Nom (Bld) C BLOOD: No Growth Normal [facility] Comment on above: Performed By: #### M G, CH8, PHOS #### [facility] [address] [place], [address] BLOOD GAS, ARTERIALon 2022 Base excess Calc [...] Oxygen (BldV) [Partial pressure] 36 mm[Hg] Low [facility] Oxygen gas flow Oxygen delivery system Nasal Canula [facility] Oxygen saturation in Venous blood 67.1 % Low 70.0 - 80.0 % [facility] pH (BldV) 7.367 [pH] 7.320 - 7.430 [facility] Basic metabolic 2000 panelon 02-16-2023 Anion [...] 171 mg/dL High 74 - 109 mg/dL [facility] Interpretation and review of laboratory results [...] [Moles/Vol] 25 mmol/L 21 - 31 mmol/L [facility] Creatinine [Mass/Vol] 1.12 mg/dL 0.70 - 1.30 mg/dL [facility] GFR/1.73 sq M.predicted CKD-EPI (S/P/Bld) [Vol rate/Area] 69 - PINF [facility] Glucose [Mass/Vol] 130 mg/dL High 74 - 109 mg/dL [facility] Potassium [Moles/Vol] 5.3 mmol/L High 3.5 - 5.0 mmol/L [facility] Sodium [Moles/Vol] 144 mmol/L 136 - 145 mmol/L [facility] Urea nitrogen [Mass/Vol] 27 mg/dL High 7 - 25 mg/dL [facility] Blood Bank Slipon 02-16-2023 Blood Bank Slip [id number] 0 [id number]# 1.00TIFF Normal [facility] CALCIUM, IONIZEDon CR ICA 1.34 mmol/L High 1.15-1.[address] [facility] Comment on above: Result Comment: This test was developed, and its performance characteristics determined by the Department of Pathology of [facility]. It has not been cleared or approved by the FDA. This test is used for clinical purposes only. Performed By: #### C R ICA ####S PATHOLOGY [id number] [place], [place], Calcium.ionized (Bld) [Moles/Vol] 1.34 mmol/L High 1.15 - 1.33 mmol/L [facility] Interpretation and review of laboratory results Abnormal [facility] CR ICA 1.24 mmol/L Normal 1.15-1.[address] [facility] Comment on above: Result Comment: This test was developed, and its performance characteristics determined by the Department of Pathology of [facility]. It has not been cleared or approved by the FDA. This test is used for clinical purposes only. Performed By: #### C BC #### S PATHOLOGY LABORATORY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 k4oiRsyUa8nFGUaCMA2EB PkpIIwP5FbfM6cWcEpUWO dDFYqF2UnfKIw ZIrrF423PRmiHrO4WCAxi dAiD9WvAUTpkPuzVdL9b0 G4Rn0GG4X3TP91VY68eQU ow0Z6gIA5T2Tw CFPxzzvmppskgRT8UUOrJ RFgnC51Zq2uwYjxVr1eGV RiEPT4AIVjgIEyW7SzvW6 yOiAjMDAwMDAw M9XheZCeDTlkA814HMbuF kD6TTGljgSwP1NnAHWayA obOvB1z7R2Jc2LHSv2OU4 3PH69uEWfi2G9 eHU8G4YxKZPyosmackjnn MX7GYHzIBUwqZ95Pm0ysQ haSn9tYFHzUGO6OOInoTC eM9FzaR0uQrTh TVQjPRKtM5KpvCPoEVveZ 308YJttRvJ2GHMytuYoO8 OrRVOjnEabJlW4c5S1Xl9 MKWVeQX56ZXI3 cXB5FQ24OC85Y4MxDdikh GFibGU+PHRhYmxlIHdpZH RoPScxMDAlJyBzdHlsZT0 yJw2uYDTrWQFr qKirkGXsJbXrk0hfSJNoL YvwWC6ucTxoB0QpfON1YN Pct0z3Up27R42kA9OvaJC +YTJbtDI4dHS2 mK5nYgGoZmD3BQvfB176K oVwfZQqGxocu5iue9rheD s0SbW5KOCwlsSbuZixRAE 8x3RlEr40A82r IHdpZHRoPSIxNSUiIHZhb Jwmrb1fcQ8aPm9+PGNvbC M6zPE9xT2iJhNiLaD6BCi wR153MiLsqJHb Pokhw4yir0ytfTw9RoSeE KRwrgIcmOeaMGJ5j9GkXc 75Q5SrqXbjt8NnLgo3uu0 5rTQuv1G7dNI2 W8YaFWKwvyhpvOVydOrgY O6gEBKhfnraZFXvzZ5aZE NtZ6e8XnOqMtI2OHabU7N lyfU3ZEQavBSm UNfzWCA4K33ml0L0SVHcR HYxIFP3jLK4rL7rzOztuj ogbGVmdDsgdmVydGljYWw yEIoqG633YMYt oKzcIPFqpQ1gBSFpiZPlv PobGE3sMTPbdtsnIvAOGd VOXVncFYGLKyuIIDd8F3O iKwi4OZEzwSzo PT9lgAJrMGgbMs8lrHzgx WcaQO6pUWOuvpsrLQLdzC 8cHSVsoJDpsKmsXO4yYPQ xsxeka027ZcEt CVV3SFWumNDgX2RbsS7dU fZrDSYxSCRiC6KjsHDrJT exI088SGyeVdG9IAUnjqP vX6PhYLMqmJet UtW7e4W8Ft7qOV5vTV1oR PL0HM41PD88wXSni4N3xV U4S6ZvWFWjuigmxfajwOL 2PPCtTQDlnZ42 oVPoKEiaUy7qv8P6r074Z AToQHYmrB47Lc9siGwkVO QgnNJNwS3frpjvj6cjkkr gIzAwMDAwMDt0 QXd7DJFonVdbLsYpHWZ7V qJ7ZVK3lRUrbB5qzZqnuq mlzZ2bOys+NzMgWWVhcnM 7Y9GwObw9HZZq ePztAN2nfDNlYSvbEx7rs IigeZowCS0gKDIcnzlpNA GidB0kRGEihJVhoKtyJP9 bSHWawplmf040 JiNfTSA2WXCxjAMvG3Ecc J5mInGcUJWhXXJiT1NzxI UhZOkkQ168SRnyEiW6HHJ gblKfC4KsSUGh xDgdWrV5m4C3Yr9PWGzyZ J13DY78qQBtg4T5gQJ8O7 GtAXQlbqjnzzfdhBB5EPW cSORjdH29xOUn RGlsVx5iz8T3f657BQTjH XJrdT68Od3drBunEUErvR VIjH7djdheb2qioktfDaE tFFChCOu4XZf8 EVCzgEpyGiRwNIR2ArB2C HC8vTQtlL4wuRtpbzwkrJ 9wOyc+YxXihRNrbK7lIV5 0YB89T2HgQyee dGFibGU+PHRhYmxlIHdpZ HRoPScxMDAlJyBzdHlsZT 0vXk1dBPUmUAIrtJbuhYF rRuVov4snURQr PQgpRA0viKjkJ0YylEU3F TWri9h4Db73F18pX9FdvT A+CXXngWI9lMV0eI9eFfL wTdC9NBnwC443 DuCxsDKpXnrec4wbt5fpn Lh4HzMzQAHqbbDutKohON U4z0IqSw04A70wXUbgCCY oPSIyMCUiIHZh jLiuzc3inV3wXm9+PGNvb QU3yIZ5zF1hKsAnKjR0WH noC565IwOdnGAuFsmpZ67 sZ0DaoNT+PHRy Tvx7VQLpnRfrRU9rzEOpQ DwoDp8oERL3VsUkDdXiQZ zaT0BlBPIeauboooplcGT 3GKOeELQieV42 Qr5ziEajSg4sXWHuSES8A FMfsWVnI1MndR6bNhOqND XeCOXvM1AthLZvPAfcT53 1HVexEfT0LOLj llTrP2ZlLGNlbItpNwK8c 5I7Pl7OeBifbRZsWR2kGb HuHEv2B2XpBcr4XEMunZa mET8oeWApTMzg Hy2zhQuxfUnwLK0uJHQok czwg754WcVkb6nwDKQdbP YjUSkdLXG9D57yv0R1CEX qEVTwGQF8tYP1 lV1hfMadevrqsVXecOnue oThuMzqKSfhQZlbI183EV NhtTdcUgHGCgc3Z6ZeHtw 7RFGkdXzzML8q vQKkCLkzRp6ydKgdlRxpK Z8pGOCdlyybi742QjDhd0 mlGLQnxAQvZFgzJXQ0V56 aq5U3VXVsCVHl ZQQ4vJD6vH0tsTnpcgful GVmdDsgdmVydGljYWwtYW mbF236KGPgaTnkLc9JYvx 0W3NnEqu6ZPEd aQnpPF5slULaIOegAm1se GqhsWngBC9xTZTdmljwl5 06EvPgm0kcASLuoPCaWUk vYFI9J24ck2B6 QXNqMMIgLJD7mEA7cO1av GlnbjogbGVmdDsgdmVydG opRBasCEitA272GSCruEl nPlBheWVyOjwv dGQ+HN42zu20G4IyZpcyY fb3NGTmKFR0pEZ7yU5xOQ OnOFkmb2M9aAD3T9CgkvO wpm3eu0gqBEBs ZTog (more content not included)... Normal [facility] POCT PT/INRon 04-05-2022 POCT INR 1.3 High .7-1.2 [facility] Comment on above: Performed By: #### 2 [id number] #### [facility] [address] [place] [address] POCT PT 15.0 second(s) Normal 8.0-15.0 [facility] Comment on above: Performed By: #### 2 [id number] #### [facility] [address] [place] [address] POCT INR Error Invalid Interpretation Code .7-.2 [facility] Comment on above: Performed By: #### 1 [id number] #### [facility] [address] [place] [address] POCT PT Strip Error Invalid Interpretation Code 8.0-15.0 [facility] Comment on above: Performed By: #### 1 [id number] #### [facility] [address] [place] [address] POCT INR Error Invalid Interpretation Code .08-24.2 [facility] Comment on above: Performed By: #### 1 [id number] #### [facility] [address] [place] [address] POCT PT Strip Error Invalid Interpretation Code 8.0-15.0 [facility] Comment on above: Performed By: #### 1 [id number], [id number], [id number] #### [facility] [address] [place] [address] Physician Orderon 04-01-2022 Physician Order [id number]# 1.00CD:127 Normal [facility] Consent for Treatmenton Consent for Treatment [id number]#1 .00CD:127 Normal [facility] POCT PT/INRon 03-29-2022 POCT INR 1.3 High .7-1.2 [facility] Comment on above: Performed By: #### 2 [id number] #### [facility] [address] [place] [address] POCT PT 14.2 second(s) Normal 8.0-15.0 [facility] Comment on above: Performed By: #### 2 [id number] #### [facility] [address] [place] [address] [facility] echo transthoracicon [facility] echo transthoracic [facility] [place] [address] Echocardiogram Signed Patient: Fredrick Stroud MR#: [id number] 427 : 1950 Acct:[id number] Age/Sex: 71 / M ADM Date: 03/27/22 Loc: Room: Type: [facility] Attending Dr: Sejal Link DRIVE THRU ORDER TAKER-C Ordering Provider: Sejal Link APRN Date of Service: 03/27/22/ [facility] echo transthoracic: Afib. SOB. HTN. Copies to: LUCY Hankins MD, [facility] BSA: 2.2 m2 BP: 125/82 mmHg HR: [...] 03/27/22 1449 Signed By: Love Gaviria MD, [facility] 03/27/22 1557 Normal [facility] Free T4 (Free Thyroxine)on 0 03-27-2022 Free T4 [Mass/Vol] 1.01 ng/dL Normal 0.61-1.12 [facility] Comment on above: Order Comment: Reaso n for Exam Atrial fibrillation;Essential hypertension Performed By: #### C BC, CMP, HS TROP, BNP #### [address] TSH DL <= 0.005 mIU/L QnOrde red By: Sejal Link on 03-27-2022 TSH Qn 2.57 m[IU]/L 0.45-5.33 [facility] Thyroid Stimulating Hormoneo n 03-27-2022 TSH Qn 2.57 m[IU]/L Normal 0.45-5.33 [facility] Comment on above: Order Comment: Reaso n for Exam Atrial fibrillation;Essential hypertension Result Comment: PERF ORMED BY: [place] [address] PATHOLOGIST LABORER [employer] SINKING EYAD HOWARD M.D. Performed By: #### C BC, CMP, HS TROP, BNP #### [facility] [address] [id number] [facility] Thyroxine (T4) free [Mass/vo lume] in Serum or PlasmaOrdered By: Sejal Link on 03-27-2022 Free T4 [Mass/Vol] 1.01 ng/dL 0.61-1.12 [facility] Triiodothyronine (T3) Freeon 03-27-2022 Triiodothyronine (T3) Free 3.17 pg/mL Normal 2.50-3.90 [facility] Comment on above: Order Comment: Reaso n for Exam Atrial fibrillation;Essential hypertension Result Comment: PERF ORMED BY: [facility] [address] [place] [address] PATHOLOGIST LABORER [employer] EYAD HOWARD M.D. Performed By: #### C BC, CMP, HS TROP, BNP #### [facility] [address] [place] [address] [place] Triiodothyronine (T3) Free [ Mass/volume] in Serum or PlasmaOrdered By: Sejal Link on 03-27-2022 Free T3 [Mass/Vol] 3.17 pg/mL 2.50-3.90 [facility] Office Visit (Cardiology)on 03-21-2022 Follow-up visit [...] would like managed with [facility]mad[facility] Follow up in 2 months [...] which include rate control with anticoagulation versus voodoo of maintenance of sinus rhythm. After discussing [...] Signs Recorded: 21Mar2022 02:26PM Heart Rate67, Apical Aocdtowg474, RUE, Ibkoxvr747, LUE, Sitting Fdqzsvzwc93, RUE, Wzdjaks64, LUE, Sitting He (more content not included)... Normal [facility] Albumin [Mass/volume] in Ser um or PlasmaOrdered By: Yo Blood on 03-11-2022 Albumin [Mass/Vol] 4.1 g/dL 3.2-5.5 [facility] B-Type Natriuretic Peptideon 03-11-2022 Natriuretic peptide B (Bld) [Mass/Vol] 101.0 pg/mL High 5-100 [facility] Comment on above: Result Comment: PERF ORMED BY: [facility] [address] [place] [address] PATHOLOGIST LABORER [employer] EYAD HOWARD M.D. Performed By: #### C BC, CMP, HS TROP, BNP #### [facility] [address] Basophils Auto (Bld) [#/Vol] Ordered By: Yo Blood on 03-11-2022 Basophils (Bld) [#/Vol] 0.0 10*3/uL 0.0-0.2 [facility] Basophils/100 WBC Auto (Bld) Ordered By: Yo Blood on 03-11-2022 Basophils/100 WBC (Bld) 1.1 % . [facility] COVID-19 Antigenon 3 COVID-19 Antigen Healthcare [...] developed and its performance characteristic determined by [employer] and validated at [facility]. This test has not been FDA [...] for SARS Antigen by [facility] PERFORMED BY: [place] [address] PATHOLOGIST LABORER [employer] S[employer] EYAD HOWARD M.D. Normal [facility] Comment on above: Performed By: #### C OVID-19 GERTRUDE, SOFIANEG #### [address] COVID-19 SOFIAOrdered By: Buster Blood on 03-11-2022 SARS-CoV+SARS-CoV-2 (COVID-19) Ag IA.rapid Ql (Resp) Negative Negative [facility] Comment on above: This is a duplicate Gertrude SARS Antigen (OLY) result to be used for statistical tracking purpose only. Complete Blood Count Auto Di ffon 03-11-2022 Basophils (Bld) [#/Vol] 0.0 10*3/uL Normal 0.0-0.2 [facility] Comment on above: Result Comment: PERF ORMED BY: [place] [address] PATHOLOGIST LABORER [employer] EYAD HOWARD M.D. Performed By: #### C BC, CMP, HS TROP, BNP #### [facility] [address] [place] [address] [place] Basophils/100 WBC (Bld) 1.1 % Normal . [facility] Comment on above: Performed By: #### C BC, CMP, HS TROP, BNP #### [facility] [address] [place] [address] [place] Eosinophils (Bld) [#/Vol] 0.0 10*3/uL Normal 0.0-0.45 [facility] Comment on above: Performed By: #### C BC, CMP, HS TROP, BNP #### [address] Eosinophils/100 WBC (Bld) 0.4 % Normal . [facility] Comment on above: Performed By: #### C BC, CMP, HS TROP, BNP #### [address] Erythrocyte distribution width (RBC) [Ratio] 14.0 % Normal 12.0-14.8 [facility] Comment on above: Performed By: #### C BC, CMP, HS TROP, BNP #### [address] Hematocrit (Bld) [Volume fraction] 46.7 % Normal 38.8-50.0 [facility] Comment on above: Performed By: #### C BC, CMP, HS TROP, BNP #### [address] Hemoglobin (Bld) [Mass/Vol] 15.3 g/dL Normal 13.0-17.0 [facility] Comment on above: Performed By: #### C BC, CMP, HS TROP, BNP #### [address] Lymphocytes (Bld) [#/Vol] 1.1 10*3/uL Normal 1.00-4.8 [facility] Comment on above: Performed By: #### C BC, CMP, HS TROP, BNP #### [address] Lymphocytes/100 WBC (Bld) 29.0 % Normal . [facility] Comment on above: Performed By: #### C BC, CMP, HS TROP, BNP #### [address] MCH (RBC) [Entitic mass] 29.4 pg Normal 27.5-35.2 [facility] Comment on above: Performed By: #### C BC, CMP, HS TROP, BNP #### [address] MCV (RBC) [Entitic vol] 89.6 fL Normal 83.5-101 [facility] Comment on above: Performed By: #### C BC, CMP, HS TROP, BNP #### [address] Mean Corpuscular HGB Conc 32.8 g/dL Normal 32.5-35.6 [facility] Comment on above: Performed By: #### C BC, CMP, HS TROP, BNP #### [address] Monocytes (Bld) [#/Vol] 0.8 10*3/uL Normal 0.0-0.8 [facility] Comment on above: Performed By: #### C BC, CMP, HS TROP, BNP #### [address] Monocytes/100 WBC (Bld) 20.67 % High 0.00-20.00 [facility] Comment on above: Result Comment: For adults in ED, MDW > 20.0 may be associated with a higher risk of sepsis during the first 12 hrs of hospital admission Performed By: #### C BC, CMP, HS TROP, BNP #### [address] Monocytes/100 WBC (Bld) 20.9 % Normal . [facility] Comment on above: Performed By: #### C BC, CMP, HS TROP, BNP #### [address] Neutrophils (Bld) [#/Vol] 1.8 10*3/uL Normal 1.8-7.7 [facility] Comment on above: Performed By: #### C BC, CMP, HS TROP, BNP #### [address] Neutrophils/100 WBC (Bld) 48.6 % Normal . [facility] Comment on above: Performed By: #### C BC, CMP, HS TROP, BNP #### [address] NRBC% 0.2 /100{WBC} Normal 0-0.5 [facility] Comment on above: Performed By: #### C BC, CMP, HS TROP, BNP #### [address] Platelet mean volume (Bld) [Entitic vol] 8.5 fL Normal 6.6-10.1 [facility] Comment on above: Performed By: #### C BC, CMP, HS TROP, BNP #### [address] Platelets (Bld) [#/Vol] 197 10*3/uL Normal 150-450 [facility] Comment on above: Performed By: #### C BC, CMP, HS TROP, BNP #### [address] RBC (Bld) [#/Vol] 5.21 10*6/uL Normal 3.90-5.60 [facility] Comment on above: Performed By: #### C BC, CMP, HS TROP, BNP #### [address] WBC (Bld) [#/Vol] 3.7 10*3/uL Low 4.1-10.5 [facility] Comment on above: Performed By: #### C BC, CMP, HS TROP, BNP #### [address] Comprehensive Metabolic Pane rigo 03-11-2022 Albumin [Mass/Vol] 4.1 g/dL Normal 3.2-5.5 [facility] Comment on above: Performed By: #### C BC, CMP, HS TROP, BNP #### [address] Albumin/Globulin [Mass ratio] 1.5 {ratio} Normal [facility] Comment on above: Performed By: #### C BC, CMP, HS TROP, BNP #### [address] ALP [Catalytic activity/Vol] 79 U/L Normal 32-92 [facility] Comment on above: Performed By: #### C BC, CMP, HS TROP, BNP #### [address] ALT [Catalytic activity/Vol] 23 U/L Normal 10-60 [facility] Comment on above: Performed By: #### C BC, CMP, HS TROP, BNP #### [address] Anion gap [Moles/Vol] 13.7 mmol/L Normal 6.0-15.0 [facility] Comment on above: Performed By: #### C BC, CMP, HS TROP, BNP #### [address] AST [Catalytic activity/Vol] 32 U/L Normal 10-42 [facility] Comment on above: Performed By: #### C BC, CMP, HS TROP, BNP #### [address] Bilirubin [Mass/Vol] 0.6 mg/dL Normal 0.3-1.2 [facility] Comment on above: Performed By: #### C BC, CMP, HS TROP, BNP #### [address] Calcium [Mass/Vol] 9.2 mg/dL Normal 8.2-10.2 [facility] Comment on above: Performed By: #### C BC, CMP, HS TROP, BNP #### [address] Chloride [Moles/Vol] 98 mmol/L Normal 95-114 [facility] Comment on above: Performed By: #### C BC, CMP, HS TROP, BNP #### [address] CO2 [Moles/Vol] 29.0 mmol/L Normal 22.0-30.0 [facility] Comment on above: Performed By: #### C BC, CMP, HS TROP, BNP #### [place] [id number] [place] Creatinine [Mass/Vol] 0.86 mg/dL Normal 0.64-1.27 [facility] Comment on above: Performed By: #### C BC, CMP, HS TROP, BNP #### [address] Creatinine Clr Calc Pharmacy 91.63 [facility] Comment on above: Result Comment: PERF ORMED BY: [place] [address] PATHOLOGIST LABORER [employer] S[employer] EYAD HOWARD M.D. Performed By: #### C BC, CMP, HS TROP, BNP #### [address] Estimated GFR ( Jessica > 60 [facility] Comment on above: Result Comment: GFR estimated reference range: According to KDOQI guidelines, <60 ml/min/1.73m2 is sufficient to diagnose a patient with chronic kidney disease. Performed By: #### C BC, CMP, HS TROP, BNP #### [address] Estimated GFR (Non- Am > 60 [facility] Comment on above: Performed By: #### C BC, CMP, HS TROP, BNP #### [address] Globulin (S) [Mass/Vol] 2.8 g/dL [facility] Comment on above: Performed By: #### C BC, CMP, HS TROP, BNP #### [address] Glucose [Mass/Vol] 91 mg/dL Normal 70-100 [facility] Comment on above: Result Comment: [place] om Glucose Reference Range is dependent on time and content of last meal. Glucose of more than 200 mg/dL in a nonstressed, ambulatory subject supports the diagnosis of Diabetes Mellitus. ADA recommended reference range Performed By: #### C BC, CMP, HS TROP, BNP #### [address] Potassium [Moles/Vol] 3.7 mmol/L Normal 3.5-5.1 [facility] Comment on above: Performed By: #### C BC, CMP, HS TROP, BNP #### [facility] [address] Protein [Mass/Vol] 6.9 g/dL Normal 6.1-7.9 [facility] Comment on above: Performed By: #### C BC, CMP, HS TROP, BNP #### [facility] [address] Sodium [Moles/Vol] 137 mmol/L Normal 136-146 [facility] Comment on above: Performed By: #### C BC, CMP, HS TROP, BNP #### [facility] [address] Urea nitrogen [Mass/Vol] 10 mg/dL Normal 9-23 [facility] Comment on above: Performed By: #### C BC, CMP, HS TROP, BNP #### [address] Creatinine and Glomerular fi ltration rate.predicted panel (S/P/Bld)Ordered By: Yo Blood on 03-11-2022 Creatinine [Mass/Vol] 0.86 mg/dL 0.64-1.27 [facility] ECG 12 lead ECGon 03-11-2022 ECG 12 lead ECG [facility] [place] [address] [place] [address] Electrocardiograph Report Signed Patient: Fredrick Stroud MR#: [id number] 427 : 1950 Acct:[id number] Age/Sex: 71 / M ADM Date: 03/11/22 Loc: ER Room: Type: [facility] ER Attending Dr: Ordering Provider: Yo [...] voltage QRS Confirmed by Yo BLOOD DO ([id number]) on 03/11/2022 9:03:33 PM Referred By: Electronically Signed By:Yo BLOOD DO Transcribed By: MUS Signed By Yo Blood DO 0 03/11/222102 [facility] ECG 12 lead ECG [facility] Main [place] [id number] Electrocardiograph Report Signed Patient: Fredrick Stroud MR#: [id number] : 1950 Acct:[id number] Age/Sex: 71 / M ADM Date: 03/11/22 Loc: ER Room: Type: [facility] ER Attending Dr: Ordering Provider: Yo [...] voltage QRS Confirmed by Yo BLOOD DO ([id number]) on 03/11/2022 7:52:28 PM Referred By: Electronically Signed By:Yo BLOOD DO Transcribed By: MUS Signed By Yo Blood DO 0 03/11/221951 Normal [facility] Eosinophils Auto (Bld) [#/Vo l]Ordered By: Yo Blood on 03-11-2022 Eosinophils (Bld) [#/Vol] 0.0 10*3/uL 0.0-0.45 [facility] Eosinophils/100 WBC Auto (Bl d)Ordered By: Yo Blood on 03-11-2022 Eosinophils/100 WBC (Bld) 0.4 % . [facility] Erythrocyte distribution wid th Auto (RBC) [Ratio]Ordered By: Yo Blood on 03-11-2022 Erythrocyte distribution width (RBC) [Ratio] 14.0 % 12.0-14.8 [facility] Estimated glomerular filtrat ion rate (GFR) non- AmericanOrdered By: Yo Blood on 03-11-2022 GFR/1.73 sq M.predicted among non-blacks MDRD (S/P/Bld) [Vol rate/Area] > 60 mL/Min [facility] Globulin Calc (S) [Mass/Vol] Ordered By: Yo Blood on 03-11-2022 Globulin (S) [Mass/Vol] 2.8 g/dL [facility] Hematocrit Auto (Bld) [Volum e fraction]Ordered By: Yo Blood on 03-11-2022 Hematocrit (Bld) [Volume fraction] 46.7 % 38.8-50.0 [facility] Hemoglobin [Mass/volume] in BloodOrdered By: Yo Blood on 03-11-2022 Hemoglobin (Bld) [Mass/Vol] 15.3 g/dL 13.0-17.0 [facility] Laboratory - Chemistry and C hemistry - challengeOrdered By: Yo Blood on 03-11-2022 Natriuretic peptide B (Bld) [Mass/Vol] 101.0 pg/mL 5-100 [facility] Leukocytes [#/volume] correc vlad for nucleated erythrocytes in Blood by Automated counOrdered By: Yo Blood on 03-11-2022 WBC corrected for nucl RBC Auto (Bld) [#/Vol] 3.7 10*3/uL 4.1-10.5 [facility] Lymphocytes Auto (Bld) [#/Vo l]Ordered By: Yo Blood on 03-11-2022 Lymphocytes (Bld) [#/Vol] 1.1 10*3/uL 1.00-4.8 [facility] Lymphocytes/100 WBC Auto (Bl d)Ordered By: Yo Blood on 03-11-2022 Lymphocytes/100 WBC (Bld) 29.0 % . [facility] MCH Auto (RBC) [Entitic mass ]Ordered By: Yo Blood on 03-11-2022 MCH (RBC) [Entitic mass] 29.4 pg 27.5-35.2 [facility] MCHC Auto (RBC) [Mass/Vol]Or dered By: Yo Blood on 03-11-2022 MCHC (RBC) [Mass/Vol] 32.8 g/dL 32.5-35.6 [facility] MCV Auto (RBC) [Entitic vol] Ordered By: Yo Blood on 03-11-2022 MCV (RBC) [Entitic vol] 89.6 fL 83.5-101 [facility] Monocyte distribution width [Entitic volume] in Blood by AutomatedOrdered By: Yo Blood on 03-11-2022 Monocyte distribution width Auto (Bld) [Entitic vol] 20.67 % 0.00-20.00 [facility] Comment on above: For adults in ED, MD W > 20.0 may be associated with a higher risk of sepsis during the first 12 hrs of hospital admission Monocytes Auto (Bld) [#/Vol] Ordered By: Yo Blood on 03-11-2022 Monocytes (Bld) [#/Vol] 0.8 10*3/uL 0.0-0.8 [facility] Monocytes/100 WBC Auto (Bld) Ordered By: Yo Blood on 03-11-2022 Monocytes/100 WBC (Bld) 20.9 % . [facility] Neutrophils Auto (Bld) [#/Vo l]Ordered By: Yo Blood on 03-11-2022 Neutrophils (Bld) [#/Vol] 1.8 10*3/uL 1.8-7.7 [facility] Neutrophils/100 WBC Auto (Bl d)Ordered By: Yo Blood on 03-11-2022 Neutrophils/100 WBC (Bld) 48.6 % . [facility] No Panel InformationOrdered By: Yo Blood on 03-11-2022 SARS Antigen (LFIA) [facility] Estimated GFR () > 60 mL/Min [facility] Comment on above: GFR estimated refere nce range: According to KDOQI guidelines, <60 ml/min/1.73m2 is sufficient to diagnose a patient with chronic kidney disease. Pharmacy Creatinine Clearance (Chem 91.63 [facility] Nucleated erythrocytes [Pres ence] in Blood by Automated countOrdered By: Yo Blood on 03-11-2022 Nucleated RBC Auto Ql (Bld) 0.2 /100{WBC} 0-0.5 [facility] Platelet mean volume Auto (B ld) [Entitic vol]Ordered By: Yo Blood on 03-11-2022 Platelet mean volume (Bld) [Entitic vol] 8.5 fL 6.6-10.1 [facility] Platelets Auto (Bld) [#/Vol] Ordered By: Yo Blood on 03-11-2022 Platelets (Bld) [#/Vol] 197 10*3/uL 150-450 [facility] Protein [Mass/volume] in Ser um or PlasmaOrdered By: Yo Blood on 03-11-2022 Protein [Mass/Vol] 6.9 g/dL 6.1-7.9 [facility] RBC Auto (Bld) [#/Vol]Ordere d By: Yo Blood on 03-11-2022 RBC (Bld) [#/Vol] 5.21 10*6/uL 3.90-5.60 [facility] Serum or plasma alanine sullivan otransferase measurement without P-5'-P (enzymatic activiOrdered By: Yo Blood on 03-11-2022 ALT No additional P-5'-P [Catalytic activity/Vol] 23 U/L 10-60 [facility] Serum or plasma albumin/glob ulin mass ratioOrdered By: Yo Blood on 03-11-2022 Albumin/Globulin [Mass ratio] 1.5 {ratio} [facility] Serum or plasma alkaline faviola sphatase measurement (enzymatic activity/volume)Ordered By: Yo Blood on 03-11-2022 ALP [Catalytic activity/Vol] 79 U/L 32-92 [facility] Serum or plasma anion gap de terminationOrdered By: Yo Blood on 03-11-2022 Anion gap [Moles/Vol] 13.7 mmol/L 6.0-15.0 [facility] Serum or plasma aspartate am inotransferase measurement (enzymatic activity/volume)Ordered By: Yo Blood on 03-11-2022 AST [Catalytic activity/Vol] 32 U/L 10-42 [facility] Serum or plasma calcium echo urement (mass/volume)Ordered By: Yo Blood on 03-11-2022 Calcium [Mass/Vol] 9.2 mg/dL 8.2-10.2 [facility] Serum or plasma chloride tessie surement (moles/volume)Ordered By: Yo Blood on 03-11-2022 Chloride [Moles/Vol] 98 mmol/L 95-114 [facility] Serum or plasma glucose echo urement (mass/volume)Ordered By: Yo Blood on 03-11-2022 Glucose [Mass/Vol] 91 mg/dL 70-100 [facility] Comment on above: ADA recommended refe rence rangeRandom Glucose Reference Range is dependent on time and content of last meal. Glucose of more than 200 mg/dL in a nonstressed, ambulatory subject supports the diagnosis of Diabetes Mellitus. Serum or plasma potassium me asurement (moles/volume)Ordered By: Yo Blood on 03-11-2022 Potassium [Moles/Vol] 3.7 mmol/L 3.5-5.1 [facility] Serum or plasma sodium measu rement (moles/volume)Ordered By: Yo Blood on 03-11-2022 Sodium [Moles/Vol] 137 mmol/L 136-146 [facility] Serum or plasma total biliru bin measurement (mass/volume)Ordered By: Yo Blood on 03-11-2022 Bilirubin [Mass/Vol] 0.6 mg/dL 0.3-1.2 [facility] Serum or plasma total carbon dioxide measurement (moles/volume)Ordered By: Yo Blood on 03-11-2022 CO2 [Moles/Vol] 29.0 mmol/L 22.0-30.0 [facility] Serum or plasma urea nitroge n measurement (mass/volume)Ordered By: Yo Blood on 03-11-2022 Urea nitrogen [Mass/Vol] 10 mg/dL 9-23 [facility] Gertrude Ag Negativeon 03-11-19 Gertrude Ag Negative Negative Normal Negative [facility] Comment on above: Result Comment: This is a duplicate Gertrude SARS Antigen (OLY) result to be used for statistical tracking purpose only. PERFORMED BY: [place] [address] PATHOLOGIST LAB[employer] EYAD HOWARD M.D. Performed By: #### C OVID-19 GERTRUDE, SOFIANEG #### [address] Troponin I High Sensitivityo n 03-11-2022 Troponin I High Sensitivity 9 pg/mL Normal 0-20 [facility] Comment on above: Result Comment: PERF ORMED BY: [place] [address] PATHOLOGIST LABORER [employer] E[employer]AD HOWARD M.D. Performed By: #### C BC, CMP, HS TROP, BNP #### [address] Troponin I.cardiac [Mass/vol ume] in Serum or Plasma by High sensitivity methodOrdered By: Yo Blood on 03-11-2022 Troponin I.cardiac High sensitivity method [Mass/Vol] 9 pg/mL 0-20 [facility] WBC Auto (Bld) [#/Vol]Ordere d By: Yo Blood on 03-11-2022 WBC (Bld) [#/Vol] 3.7 10*3/uL 4.1-10.5 [facility] XR chest 2V*on 03-11-2022 XR chest 2V* [facility] Main [place] [address] [place] [address] XRay Report Signed Patient: Fredrick Stroud MR#: [id number] 427 : 1950 Acct:[id number] Age/Sex: 71 / M ADM Date: 03/11/22 [...] MD 03/11/22 1339 Signed By: 03/11/22 1342 [facility] XR hip LT min 2V(w/wo pelvis )*on 09-26-2021 XR hip LT min 2V(w/wo pelvis)* [facility] Main [place] [id number] XRay Report Signed Patient: Fredrick Stroud MR#: [id number] 427 : 1950 Acct:[id number] Age/Sex: 70 / M ADM Date: 09/26/21 Loc: [facility] Room: Type: [facility] Attending Dr: Shahriar Dhillon II, MD Copies [...] MD 09/26/21 1526 Signed By: 09/26/21 1527 [facility] XR hip LT min 2V(w/wo pelvis )*on 08-15-2021 XR hip LT min 2V(w/wo pelvis)* [facility] Main [place] [id number] XRay Report Signed Patient: Fredrick Stroud MR#: [id number] 427 : 1950 Acct:[id number] Age/Sex: 70 / M ADM Date: 08/15/21 Loc: [facility] Room: Type: [facility] Attending Dr: Shahriar Dhillon II, MD Copies to: Shahriar Dhillon MD Ordering Provider: Shahriar Dihllon MD Date of Service: 08/15/21 XR/XR hip [...] Stevenson Jr., D.ODre08/15/2021 2:40 PM Dictation Location: [facility] Transcribed By: [facility] 08/15/21 1440 Dictated By: Dandy Stevenson Jr, DO 08/15/21 1439 Signed By: 08/15/21 1440 Normal [facility] XR hip LT min 2V(w/wo pelvis)* [facility] Other XR hip LT min 2V(w/wo pelvis)* [facility] Other XR hip LT min 2V(w/wo pelvis)* [facility] [facility] Other XR hip LT min 2V(w/wo pelvis)* [place] [address] [facility] Other XR hip LT min 2V(w/wo pelvis)* XRay Report [facility] Other XR hip LT min 2V(w/wo pelvis)* Signed [facility] Other XR hip LT min 2V(w/wo pelvis)* Patient: Fredrick Stroud MR#: [id number] [facility] Other XR hip LT min 2V(w/wo pelvis)* 427 [facility] Other XR hip LT min 2V(w/wo pelvis)* : 1950 Acct:[id number] [facility] Other XR hip LT min 2V(w/wo pelvis)* Age/Sex: 70 / M ADM Date: 08/15/21 [facility] Other XR hip LT min 2V(w/wo pelvis)* Loc: [facility] Room: Type: [facility] Other XR hip LT min 2V(w/wo pelvis)* Attending Dr: Shahriar Dhillon II, MD [facility] Other XR hip LT min 2V(w/wo pelvis)* Copies to: Shahriar Dhillon MD [facility] Other XR hip LT min 2V(w/wo pelvis)* Ordering Provider: Shahriar Dhillon MD [facility] Other XR hip LT min 2V(w/wo pelvis)* Date of Service: 08/15/21 [facility] Other XR hip LT min 2V(w/wo pelvis)* XR/XR hip LT min 2V(w/wo pelvis)*: Aftercare following joint replacement [facility] Other XR hip LT min 2V(w/wo pelvis)* surgery [facility] Other XR hip LT min 2V(w/wo pelvis)* LEFT HIP - 2 views: 1 view pelvis [facility] Other XR hip LT min 2V(w/wo pelvis)* CLINICAL HISTORY: Follow-up left GEOVANI [facility] Other XR hip LT min 2V(w/wo pelvis)* COMPARISON: Hip series 07/02/2021 [facility] Other XR hip LT min 2V(w/wo pelvis)* FINDINGS: 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 Prostate radiation [facility] Other XR hip LT min 2V(w/wo pelvis)* seeds. Mild degenerative changes right hip. [facility] Other XR hip LT min 2V(w/wo pelvis)* XR/XR hip LT min 2V(w/wo pelvis)* [facility] Other XR hip LT min 2V(w/wo pelvis)* IMPRESSION: [facility] Other XR hip LT min 2V(w/wo pelvis)* NO EVIDENCE OF HARDWARE COMPLICATION. [facility] Other XR hip LT min 2V(w/wo pelvis)* Impression dictated by: Dandy Stevenson Jr., D.ODre08/15/2021 2:40 PM [facility] Other XR hip LT min 2V(w/wo pelvis)* Dictation Location: [facility] Other XR hip LT min 2V(w/wo pelvis)* Transcribed By: ADRIAN 08/15/21 1440 [facility] Other XR hip LT min 2V(w/wo pelvis)* Dictated By: Dandy Stevenson Jr, DO 08/15/21 1439 [facility] Other XR hip LT min 2V(w/wo pelvis)* Signed By: [facility] Other XR hip LT min 2V(w/wo pelvis)* 08/15/21 1440 [facility] Other Basic Metabolic Panelon 05-1 Calcium [Mass/Vol] 8.6 mg/dL Normal 8.2-10.2 [facility] Comment on above: Performed By: #### C BC, BMP #### [facility] [address] Chloride [Moles/Vol] 102 mmol/L Normal 95-114 [facility] Comment on above: Performed By: #### C BC, BMP #### [address] CO2 [Moles/Vol] 25.5 mmol/L Normal 22.0-30.0 [facility] Comment on above: Performed By: #### C BC, BMP #### [address] Creatinine [Mass/Vol] 0.96 mg/dL Normal 0.64-1.27 [facility] Comment on above: Performed By: #### C BC, BMP #### [address] Creatinine Clr Calc Pharmacy 81.73 [facility] Comment on above: Result Comment: PERF ORMED BY: [place] [address] PATHOLOGIST LABORER [employer] EYAD HOWARD M.D. Performed By: #### C BC, BMP #### [address] Estimated GFR ( Jessica > 60 [facility] Comment on above: Result Comment: GFR estimated reference range: According to KDOQI guidelines, <60 ml/min/1.73m2 is sufficient to diagnose a patient with chronic kidney disease. Performed By: #### C BC, BMP #### [address] Estimated GFR (Non- Am > 60 [facility] Comment on above: Performed By: #### C BC, BMP #### [address] Glucose [Mass/Vol] 167 mg/dL High 70-100 [facility] Comment on above: Result Comment: [place] Glucose Reference Range is dependent on time and content of last meal. Glucose of more than 200 mg/dL in a nonstressed, ambulatory subject supports the diagnosis of Diabetes Mellitus. ADA recommended reference range Performed By: #### C BC, BMP #### [address] Potassium [Moles/Vol] 4.4 mmol/L Normal 3.5-5.1 [facility] Comment on above: Performed By: #### C BC, BMP #### [address] Sodium [Moles/Vol] 135 mmol/L Low 136-146 [facility] Comment on above: Performed By: #### C BC, BMP #### [address] Urea nitrogen [Mass/Vol] 18 mg/dL Normal 9-23 [facility] Comment on above: Performed By: #### C BC, BMP #### [address] Complete Blood Count Auto Di ffon 07-03-2021 Basophils (Bld) [#/Vol] 0.0 10*3/uL Normal 0.0-0.2 [facility] Comment on above: Result Comment: PERF ORMED BY: [place] [address] PATHOLOGIST LABORER [employer] EYAD HOWARD M.D. Performed By: #### C BC, BMP #### [address] Basophils/100 WBC (Bld) 0.3 % Normal . [facility] Comment on above: Performed By: #### C BC, BMP #### [place] [address] [place] Eosinophils (Bld) [#/Vol] 0.0 10*3/uL Normal 0.0-0.45 [facility] Comment on above: Performed By: #### C BC, BMP #### [address] Eosinophils/100 WBC (Bld) 0.0 % Normal . [facility] Comment on above: Performed By: #### C BC, BMP #### [place] [address] [place] Erythrocyte distribution width (RBC) [Ratio] 14.2 % Normal 12.0-14.8 [facility] Comment on above: Performed By: #### C BC, BMP #### [address] Hematocrit (Bld) [Volume fraction] 32.9 % Low 38.8-50.0 [facility] Comment on above: Performed By: #### C BC, BMP #### [address] Hemoglobin (Bld) [Mass/Vol] 11.2 g/dL Low 13.0-17.0 [facility] Comment on above: Performed By: #### C BC, BMP #### [address] Lymphocytes (Bld) [#/Vol] 0.6 10*3/uL Low 1.00-4.8 [facility] Comment on above: Performed By: #### C BC, BMP #### [address] Lymphocytes/100 WBC (Bld) 4.7 % Normal . [facility] Comment on above: Performed By: #### C BC, BMP #### [address] MCH (RBC) [Entitic mass] 30.1 pg Normal 27.5-35.2 [facility] Comment on above: Performed By: #### C BC, BMP #### [address] MCV (RBC) [Entitic vol] 88.7 fL Normal 83.5-101 [facility] Comment on above: Performed By: #### C BC, BMP #### [address] Mean Corpuscular HGB Conc 33.9 g/dL Normal 32.5-35.6 [facility] Comment on above: Performed By: #### C BC, BMP #### [address] Monocytes (Bld) [#/Vol] 1.0 10*3/uL High 0.0-0.8 [facility] Comment on above: Performed By: #### C AKHIL, BMP #### [facility] [address] Monocytes/100 WBC (Bld) 8.3 % Normal . [facility] Comment on above: Performed By: #### C AKHIL, BMP #### [facility] [address] Neutrophils (Bld) [#/Vol] 10.9 10*3/uL High 1.8-7.7 [facility] Comment on above: Performed By: #### C AKHIL, BMP #### [address] Neutrophils/100 WBC (Bld) 86.7 % Normal . [facility] Comment on above: Performed By: #### C AKHIL, BMP #### [facility] [address] Nucleated RBC/100 WBC (Bld) [Ratio] 0.0 % Normal 0-0.5 [facility] Comment on above: Performed By: #### C AKHIL, BMP #### [address] Platelet mean volume (Bld) [Entitic vol] 8.4 fL Normal 6.6-10.1 [facility] Comment on above: Performed By: #### C AKHIL, BMP #### [facility] [address] Platelets (Bld) [#/Vol] 210 10*3/uL Normal 150-450 [facility] Comment on above: Performed By: #### C AKHIL, BMP #### [facility] [address] [place] [address] [place] RBC (Bld) [#/Vol] 3.71 10*6/uL Low 3.90-5.60 [facility] Comment on above: Performed By: #### C AKHIL, BMP #### [facility] [address] WBC (Bld) [#/Vol] 12.5 10*3/uL High 4.5-11.0 [facility] Comment on above: Performed By: #### C CATRACHITA LANDAVERDE #### [facility] [address] ECG 12 lead ECGon 07-02-2021 ECG 12 lead ECG [facility] Main [place] [address] [place] [address] Electrocardiograph Report Signed Patient: Fredrick Stroud MR#: [id number] 427 : 1950 Acct:[id number] Age/Sex: 70 / M ADM Date: 07/02/21 Loc: [place] Room: Type: [facility] Attending Dr: Shahriar Dhillon II, MD Ordering [...] By Moreno Rosario DO 07/02 1306 [facility] [place] 07-02-2021 L - -------- Specimen: [id number] Received: 07/02/21 Status: LORETTA Solis Num: [id number] Spec Type: Surgical Subm Dr: Shahriar Dhillon MD Tissues: A Femoral Head - Other than Fracture (L HIP) Procedures: HE Stain, Gross/Micro L3, Decal -------- Patient Age/Sex Location Account Attending Physician -------- Fredrick Stroud 70/M 4N [id number] Shahriar Dhillon MD -------- SPEC NUM: [id number] RECD: 07/02/21 STATUS: LORETTA SOLIS NUM: [id number] MILY: 07/02/21 DR: Shahriar Dhillon MD ENTERED: 07/02/[address] [facility] [address]: SPEC TYPE: Surgical DEPT: S [...] bone fragments and scant soft tissue. A airport representative section of bone, following formalin fixation and decalcification is submitted in cassette A 1. ([id number]) -------- Specimen: [id number] Received: 07/02/21 Status: LORETTA Lisbeth Num: [id number] Spec Type: Surgical Subm Dr: Shahriar Dhillon MD Tissues: A Femoral Head - Other than Fracture (L HIP) Procedures: HE Stain, Gross/Micro L3, Decal -------- Patient: Fredrick Stroud Madhu [id number] (Continued) -------- Specimen: [id number] Received: 07/02/21 (Continued) Signed (signature on file) Kaycee Curry MD 07/04/21 1625 -------- Specimen: Received: 07/02/21 Status: KEITHKimberly Solis Num: [id number] Spec Type: Surgical Subm Dr: Shahriar Dhillon MD Tissues: A Femoral Head - Other than Fracture (L HIP) Procedures: HE Stain, Gross/Micro L3, Decal -------- Patient: Fredrick Stroud [id number] (Continued) -------- Specimen: Received: 07/02/21 (Continued) Microscopic Description One glass slide with H E stained material has been examined. The microscopic findings support the above pathologic diagnosis. CPT Codes 48978, 07627 -------- -------- Specimen: [id number] Received: 07/02/21 Status: LORETTA Solis Num: [id number] Spec Type: Surgical Subm Dr: Shahriar Dhillon MD Tissues: A Femoral Head - Other than Fracture (L HIP) Procedures: HE Stain, Gross/Micro L3, Decal -------- Patient: Fredrick Stroud [id number] (Continued) -------- Signed (signature on file) Kaycee Curry MD 07/04/21 9963 [facility] XR hip LT 1Von 07-02-2021 XR hip LT 1V [facility] Main [address] [address] XRay Report Signed Patient: Fredrick Stroud MR#: [id number] 427 : 1950 Acct:[id number] Age/Sex: 70 / M ADM Date: 07/02/21 Loc: [place] Room: Type: [facility] Attending Dr: Shahriar Dhillon II, MD [...] Stevenson Jr., D.ODre07/02/2021 9:26 AM Dictation Location: [place] [address] Transcribed By: [facility] 07/02/21925 Dictated By: Dandy Stevenson Jr, DO 07/02/21922 Signed By: 07/02/21925 [facility] XR low pelvis w/LT x-table h ipon 07-02-2021 XR low pelvis w/LT x-table hip [facility] Main [address] [address] XRay Report Signed Patient: Fredrick Stroud MR#: [id number] 427 : 1950 Acct:[id number] Age/Sex: 70 / M ADM Date: 07/02/21 Loc: [place] Room: Type: [facility] Attending Dr: Shahriar Dhillon II, MD [...] 12:05 PM Dictation Location: [facility] Transcribed By: [facility] 07/02/21 1205 Dictated By: Ariana Tanner MD 07/02/21 1204 Signed By: 07/02/21 1205 Normal [facility] COVID-19 FRon 06-28-2021 SARS-CoV-2 (COVID-19) RNA FABI+probe Ql (Unsp spec) Negative Normal Negative [facility] Comment on above: Order Comment: Healt hcare Worker?: N Result Comment: Testing for SARS-CoV-2 by RT-PCR This test was developed and its performance characteristics determined by [employer] and validated at the [facility]. This test has not been FDA [...] is terminated or revoked sooner. PERFORMED BY: [address] [place] [address] PATHOLOGIST LABORER [employer] SINK[employer] EYAD HOWARD M.D. Performed By: #### C BC, CMP, HS TROP, BNP #### [facility] [address] Basic Metabolic Panelon 05-26 Calcium [Mass/Vol] 9.4 mg/dL Normal 8.2-10.2 [facility] Comment on above: Result Comment: PERF ORMED BY: [place] [address] PATHOLOGIST LABORER [employer] EYAD HOWARD M.D. Performed By: #### C OVID-19 GERTRUDE, SOFIANEG #### [address] Chloride [Moles/Vol] 103 mmol/L Normal 95-114 [facility] Comment on above: Performed By: #### C OVID-19 GERTRUDE, SOFIANEG #### [address] CO2 [Moles/Vol] 26.4 mmol/L Normal 22.0-30.0 [facility] Comment on above: Performed By: #### C OVID-19 GERTRUDE, SOFIANEG #### [address] Creatinine [Mass/Vol] 0.89 mg/dL Normal 0.64-1.27 [facility] Comment on above: Performed By: #### C OVID-19 GERTRUDE, SOFIANEG #### [address] Estimated GFR ( Jessica > 60 [facility] Comment on above: Result Comment: GFR estimated reference range: According to KDOQI guidelines, <60 ml/min/1.73m2 is sufficient to diagnose a patient with chronic kidney disease. Performed By: #### C OVID-19 GERTRUDE, SOFIANEG #### [address] Estimated GFR (Non- Am > 60 Normal [facility] Comment on above: Performed By: #### C OVID-19 GERTRUDE, SOFIANEG #### [address] [place] [address] [place] Glucose [Mass/Vol] 101 mg/dL High 70-100 [facility] Comment on above: Result Comment: [place] Glucose Reference Range is dependent on time and content of last meal. Glucose of more than 200 mg/dL in a nonstressed, ambulatory subject supports the diagnosis of Diabetes Mellitus. ADA recommended reference range Performed By: #### C OVID-19 GERTRUDE SOFIANEG #### [address] Potassium [Moles/Vol] 4.4 mmol/L Normal 3.5-5.1 [facility] Comment on above: Performed By: #### C OVID-19 GERTRUDE, SOFIANEG #### [address] Sodium [Moles/Vol] 139 mmol/L Normal 136-146 [facility] Comment on above: Performed By: #### C OVID-19 GERTRUDE SOFIANEG #### [address] Urea nitrogen [Mass/Vol] 23 mg/dL Normal 9-23 [facility] Comment on above: Performed By: #### C OVID-19 GERTRUDE SOFIANEG #### [address] Complete Blood Count Auto Di ffon 06-18-2021 Basophils (Bld) [#/Vol] 0.0 10*3/uL Normal 0.0-0.2 [facility] Comment on above: Result Comment: PERF ORMED BY: [place] [address] PATHOLOGIST LABORER [employer] S[employer] EYAD HOWARD M.D. Performed By: #### C OVID-19 GERTRUDE, SOFIANEG #### [place] [address] [place] Basophils/100 WBC (Bld) 0.9 % Normal . [facility] Comment on above: Performed By: #### C OVID-19 GERTRUDE SOFIANEG #### [address] [address] [place] Eosinophils (Bld) [#/Vol] 0.1 10*3/uL Normal 0.0-0.45 [facility] Comment on above: Performed By: #### C OVID-19 GERTRUDE, SOFIANEG #### [facility] [address] Eosinophils/100 WBC (Bld) 1.4 % Normal . [facility] Comment on above: Performed By: #### C OVID-19 GERTRUDE, SOFIANEG #### [facility] [address] [place] [address] Erythrocyte distribution width (RBC) [Ratio] 14.0 % Normal 12.0-14.8 [facility] Comment on above: Performed By: #### C OVID-19 GERTRUDE, SOFIANEG #### [facility] [address] [place] [address] Hematocrit (Bld) [Volume fraction] 41.8 % Normal 38.8-50.0 [facility] Comment on above: Performed By: #### C OVID-19 GERTRUDE, SOFIANEG #### [facility] [address] [place] [address] Hemoglobin (Bld) [Mass/Vol] 14.2 g/dL Normal 13.0-17.0 [facility] Comment on above: Performed By: #### C OVID-19 GERTRUDE, SOFIANEG #### [facility] [address] [place] [address] Lymphocytes (Bld) [#/Vol] 1.1 10*3/uL Normal 1.00-4.8 [facility] Comment on above: Performed By: #### C OVID-19 GERTRUDE, SOFIANEG #### [facility] [address] [place] [address] [place] Lymphocytes/100 WBC (Bld) 22.7 % Normal . [facility] Comment on above: Performed By: #### C OVID-19 GERTRUDE, SOFIANEG #### [facility] [address] [place] [address] MCH (RBC) [Entitic mass] 30.4 pg Normal 27.5-35.2 [facility] Comment on above: Performed By: #### C OVID-19 GERTRUDE, SOFIANEG #### [facility] [address] MCV (RBC) [Entitic vol] 89.7 fL Normal 83.5-101 [facility] Comment on above: Performed By: #### C OVID-19 GERTRUDE, SOFIANEG #### [address] Mean Corpuscular HGB Conc 33.9 g/dL Normal 32.5-35.6 [facility] Comment on above: Performed By: #### C OVID-19 GERTRUDE, SOFIANEG #### [address] Monocytes (Bld) [#/Vol] 0.5 10*3/uL Normal 0.0-0.8 [facility] Comment on above: Performed By: #### C OVID-19 GERTRUDE, SOFIANEG #### [place] [address] [place] Monocytes/100 WBC (Bld) 11.2 % Normal . [facility] Comment on above: Performed By: #### C OVID-19 GERTRUDE, SOFIANEG #### [address] Neutrophils (Bld) [#/Vol] 3.1 10*3/uL Normal 1.8-7.7 [facility] Comment on above: Performed By: #### C OVID-19 GERTRUDE, SOFIANEG #### [place] [address] [place] Neutrophils/100 WBC (Bld) 63.8 % Normal . [facility] Comment on above: Performed By: #### C OVID-19 GERTRUDE, SOFIANEG #### [facility] [address] [place] [address] [place] Nucleated RBC/100 WBC (Bld) [Ratio] 0.1 % Normal 0-0.5 [facility] Comment on above: Performed By: #### C OVID-19 GERTRUDE, SOFIANEG #### [facility] [address] Platelet mean volume (Bld) [Entitic vol] 8.2 fL Normal 6.6-10.1 [facility] Comment on above: Performed By: #### C OVID-19 GERTRUDE, SOFIANEG #### [facility] [address] [place] [id number] [facility] Platelets (Bld) [#/Vol] 243 10*3/uL Normal 150-450 [facility] Comment on above: Performed By: #### C OVID-19 GERTRUDE, SOFIANEG #### [facility] [address] RBC (Bld) [#/Vol] 4.67 10*6/uL Normal 3.90-5.60 [facility] Comment on above: Performed By: #### C OVID-19 GERTRUDE, SOFIANEG #### [facility] [address] WBC (Bld) [#/Vol] 4.8 10*3/uL Normal 4.5-11.0 [facility] Comment on above: Performed By: #### C OVID-19 GERTRUDE, SOFIANEG #### [address] ECG 12 lead ECGon 06-18-2021 ECG 12 lead ECG [facility] Main [place] [address] [place] [address] Electrocardiograph Report Signed Patient: Fredrick Stroud MR#: [id number] : [id number] Acct:[id number] Age/Sex: 70 / M ADM Date: 06/18/21 Loc: PS Room: Type: [facility] Attending Dr: Shahriar Dhillon II, MD [...] Wisam Torre MD 0 06/19/21 1006 Normal [facility] Fructosamineon 06-18-2021 Fructosamine 217 umol/L Normal 0-285 [facility] Comment on above: Result Comment: Publ ished reference interval for apparently healthy subjects between age 20 and 60 is 205 - 285 umol/L and in a poorly controlled diabetic population is 228 - 563 umol/L with a mean of 396 umol/L. Performed at: [facility] LabJason [place]ille [id number] [employer] Developer: Benton Caro PhD, Phone: [phone] PERFORMED BY: [place] [address] PATHOLOGIST LABORER SHAFT SINKING EYAD HOWARD M.D. Performed By: #### C OVID-19 GERTRUDE, SOFIANEG #### [facility] [address] [place] [address] PST Type and Screenon 2021 ABO and Rh group Nom (Bld) Blood group O Rh(D) positive Normal [facility] Comment on above: Order Comment: Date of Surgery: [id number] Result Comment: PERF ORMED BY: [place] [address] PATHOLOGIST LABORER SHAFT SINKING EYAD HOWARD M.D. Urinalysison 06-18-2021 Appearance (U) Clear Normal Clear [facility] Comment on above: Order Comment: Name Collection Type:: Clean-Voided Midstream Performed By: #### C BC, CMP, HS TROP, BNP #### [facility] [address] [place], [place] [id number] [place] Bilirubin,Urine Negative Normal Negative [facility] Comment on above: Order Comment: Name Collection Type:: Clean-Voided Midstream Performed By: #### C BC, CMP, HS TROP, BNP #### [facility] [address] [place] [address] [place] Color (U) Yellow Normal Yellow [facility] Comment on above: Order Comment: Name Collection Type:: Clean-Voided Midstream Performed By: #### C BC, CMP, HS TROP, BNP #### [facility] [address] [place] [address] [place] Glucose Ql (U) Normal Normal Normal [facility] Comment on above: Order Comment: Name Collection Type:: Clean-Voided Midstream Performed By: #### C BC, CMP, HS TROP, BNP #### [facility] [address] [place] [address] [place] Ketones Ql (U) Negative Normal Negative [facility] Comment on above: Order Comment: Name Collection Type:: Clean-Voided Midstream Performed By: #### C BC, CMP, HS TROP, BNP #### [facility] [address] [place] [address] [place] Leukocyte esterase Test strip Ql (U) Negative Normal Negative [facility] Comment on above: Order Comment: Name Collection Type:: Clean-Voided Midstream Performed By: #### C BC, CMP, HS TROP, BNP #### [facility] [address] [place] [address] [place] Nitrite,Urine Negative Normal Negative [facility] Comment on above: Order Comment: Name Collection Type:: Clean-Voided Midstream Performed By: #### C BC, CMP, HS TROP, BNP #### [facility] [address] [place] [address] [place] Occult Blood,Urine Negative Normal Negative [facility] Comment on above: Order Comment: Name Collection Type:: Clean-Voided Midstream Result Comment: PERF ORMED BY: [place] [address] PATHOLOGIST LABORER SHAFT SINKING EYAD HOWARD M.D. Performed By: #### C BC, CMP, HS TROP, BNP #### [facility] [address] pH (U) 7.5 [pH] Normal 5.0-9.0 [facility] Comment on above: Order Comment: Name Collection Type:: Clean-Voided Midstream Performed By: #### C BC, CMP, HS TROP, BNP #### [facility] [address] Protein,Urine Negative Normal Negative [facility] Comment on above: Order Comment: Name Collection Type:: Clean-Voided Midstream Performed By: #### C BC, CMP, HS TROP, BNP #### [facility] [address] Specificy [place],Urine 1.023 Normal 1.001-1.030 [facility] Comment on above: Order Comment: Name Collection Type:: Clean-Voided Midstream Performed By: #### C BC, CMP, HS TROP, BNP #### [facility] [address] Urobilinogen,Urine Normal Normal Normal [facility] Comment on above: Order Comment: Name Collection Type:: Clean-Voided Midstream Performed By: #### C BC, CMP, HS TROP, BNP #### [facility] [address] Urinalysis - AUTOMATEDon Appearance (U) CLEAR [employer] Other Bilirubin Ql (U) Negative [employer] Other Color (U) YELLOW [facility] Other Glucose Ql (U) Negative [employer] Other Hemoglobin Ql (U) Negative [employer] Other Ketones Ql (U) Negative [employer] Other Leukocyte esterase Test strip Ql (U) Negative [facility] Other Nitrite Ql (U) Negative [employer] Other pH (U) 6.0 [pH] [employer] Other Protein Ql (U) Negative [employer] Other Specific gravity (U) [Rel density] 1.010 [employer] Other Urobilinogen (U) [Mass/Vol] 0.2 mg/dL [facility] Other Urinalysis - AUTOMATED [facility] Other Vital Signs Date Time Vital Sign Value Performing Clinician Facility 02-25-2023 13:00-0500 Body temperature 98.2 [degF] Vivian Espinoza MD Work Phone: [employer] 02-25-2023 13:00-0500 Diastolic blood pressure 81 mm[Hg] Vivian Espinoza MD Work Phone: [employer] 02-25-2023 13:00-0500 Heart rate 79 /min Vivian Espinoza MD Work Phone: [employer] 02-25-2023 13:00-0500 Respiratory rate 18 /min Vivian Espinoza MD Work Phone: [employer] 02-25-2023 13:00-0500 SaO2% (BldA) [Mass fraction] 97 % Vivian Espinoza MD Work Phone: [employer] 02-25-2023 13:00-0500 Systolic blood pressure 125 mm[Hg] Vivian Espinoza MD Work Phone: [employer] 02-16-2023 22:54-0500 SaO2% (BldA) [Mass fraction] 96.1 % Vivian Espinoza MD Work Phone: [employer] 02-16-2023 03:00-0500 Body height 167.6 cm Vivian Espinoza MD Work Phone: [employer] 02-16-2023 03:00-0500 Body mass index (BMI) [Ratio] 42.52 kg/m2 Vivian Espinoza MD Work Phone: [employer] 02-16-2023 03:00-0500 Body weight 119.5 kg Vivian Espinoza MD Work Phone: [facility] 02-15-2023 20:06-0500 Body temperature 97.52 [degF] Justice Pretty [facility] 02-15-2023 20:06-0500 Diastolic blood pressure 63 mm[Hg] Justice Cuetoe [facility] 02-15-2023 20:06-0500 Heart rate 70 /min Justice Cuetoe [facility] 02-15-2023 20:06-0500 Mean blood pressure 76 mm[Hg] Justice Cuetoe [facility] 02-15-2023 20:06-0500 Respiratory rate 18 /min Justice Cuetoe [facility] 02-15-2023 20:06-0500 SaO2% (BldA) [Mass fraction] 94 % Justice Cuetoe [facility] 02-15-2023 20:06-0500 Systolic blood pressure 101 mm[Hg] Justice Cuetoe [facility] 02-15-2023 20:00-0500 Diastolic blood pressure 74 mm[Hg] Justice Cuetoe [facility] 02-15-2023 20:00-0500 Heart rate 63 /min Justice Cuetoe [facility] 02-15-2023 20:00-0500 Hourly Rounding Justice Pretty [facility] 02-15-2023 20:00-0500 Promise to Return Justice Cuetoe [facility] 02-15-2023 20:00-0500 SaO2% (BldA) [Mass fraction] 100 % Justice Cuetoe [facility] 02-15-2023 20:00-0500 Systolic blood pressure 112 mm[Hg] Justice Sukhwinder [facility] 02-15-2023 19:57-0500 Diastolic blood pressure 78 mm[Hg] Justice Sukhwinder [facility] 02-15-2023 19:57-0500 Heart rate 101 /min Justice Sukhwinder [facility] 02-15-2023 19:57-0500 Mean blood pressure 90 mm[Hg] Justice Cuetoe [facility] 02-15-2023 19:57-0500 Respiratory rate 14 /min Justice Cuetoe [facility] 02-15-2023 19:57-0500 SaO2% (BldA) [Mass fraction] 98 % Justice Sukhwinder [facility] 02-15-2023 19:57-0500 Systolic blood pressure 113 mm[Hg] Justice Cuetoe [facility] 02-15-2023 19:47-0500 Heart rate 85 /min Justice Cuetoe [facility] 02-15-2023 19:47-0500 Mean blood pressure 49 mm[Hg] Justice Cuetoe [facility] 02-15-2023 19:47-0500 Respiratory rate 14 /min Justice Cuetoe [facility] 02-15-2023 19:34-0500 Blood Pressure Location Justice Sukhwinder [facility] 02-15-2023 19:34-0500 Body temperature 97.52 [degF] Justice Sukhwinder [facility] 02-15-2023 19:34-0500 Heart rate 68 /min Justice Cuetoe [facility] 02-15-2023 19:19-0500 Heart rate 67 /min Justice Pretty [facility] 02-15-2023 19:00-0500 Hourly Rounding Justice Pretty [facility] 02-15-2023 19:00-0500 Promise to Return Justice Pretty [facility] 02-15-2023 18:45-0500 Body temperature 97.52 [degF] Justice Pretty [facility] 02-15-2023 18:17-0500 Body temperature 97.52 [degF] Justice Pretty [facility] 02-15-2023 18:00-0500 Hourly Rounding Justice Pretty [facility] 02-15-2023 18:00-0500 Promise to Return Justice Pretty [facility] 02-15-2023 16:28-0500 Body temperature 97.88 [degF] Justice Pretty [facility] 08-30-2022 08:53-0400 Body height 167.64 cm Karina Melgar Work Phone: [facility] DO Work Phone: 08-30-2022 08:53-0400 Body mass index (BMI) [Ratio] 38.74 kg/m2 Karina Melgar Work Phone: [facility] DO Work Phone: 08-30-2022 08:53-0400 Body surface area Derived from formula 2.16 m2 Karina Melgar Work Phone: [facility] DO Work Phone: 08-30-2022 08:53-0400 Body weight 108.86 kg Karina Melgar Work Phone: [facility] DO Work Phone: 08-30-2022 08:53-0400 Diastolic blood pressure 62 mm[Hg] Karina Lisa Ramón Work Phone: [facility] DO Work Phone: 08-30-2022 08:53-0400 Heart rate 55 /min Karina Lisa Ramón Work Phone: [facility] DO Work Phone: 08-30-2022 08:53-0400 Systolic blood pressure 128 mm[Hg] Karina Lisa Ramón Work Phone: [facility] DO Work Phone: 08-13-2022 13:21-0400 Body height 167.64 cm Karina Lisa Ramón Work Phone: [facility] DO Work Phone: 08-13-2022 13:21-0400 Body mass index (BMI) [Ratio] 39.87 kg/m2 Karina Lisa Ramón Work Phone: [facility] DO Work Phone: 08-13-2022 13:21-0400 Body surface area Derived from formula 2.19 m2 Karina Lisa Ramón Work Phone: [facility] DO Work Phone: 08-13-2022 13:21-0400 Body weight 112.04 kg Karina Lisa Ramón Work Phone: [facility] DO Work Phone: 08-13-2022 13:21-0400 Diastolic blood pressure 70 mm[Hg] Karina Guardadoon Work Phone: [facility] DO Work Phone: 08-13-2022 13:21-0400 Heart rate 70 /min Karina Lisa Ramón Work Phone: [facility] DO Work Phone: 08-13-2022 13:21-0400 Systolic blood pressure 136 mm[Hg] Karina Lisa Ramón Work Phone: [facility] DO Work Phone: 07-05-2022 09:08-0400 Body height 167.64 cm Karina Lisa Ramón Work Phone: [facility] [address] DO Work Phone: 07-05-2022 09:08-0400 Body mass index (BMI) [Ratio] 39.54 kg/m2 Karina Lisa Ramón Work Phone: [facility] [address] DO Work Phone: 07-05-2022 09:08-0400 Body surface area Derived from formula 2.18 m2 Karina Lisa Raómn Work Phone: [facility] [address] DO Work Phone: 07-05-2022 09:08-0400 Body weight 111.13 kg Karina Lisa Ramón Work Phone: [facility] [address] DO Work Phone: 07-05-2022 09:08-0400 Diastolic blood pressure 70 mm[Hg] Karina Lisa Ramón Work Phone: [facility] [address] DO Work Phone: 07-05-2022 09:08-0400 Heart rate 72 /min Karina Lisa Ramón Work Phone: [facility] [address] DO Work Phone: 07-05-2022 09:08-0400 Systolic blood pressure 138 mm[Hg] Karina Lisa Ramón Work Phone: [facility] [address] DO Work Phone: 06-20-2022 16:24-0400 Body height 167.64 cm Karina Guardadoon Work Phone: [facility] DO Work Phone: 06-20-2022 16:24-0400 Body mass index (BMI) [Ratio] 40.03 kg/m2 Karina Guardadoon Work Phone: [facility] DO Work Phone: 06-20-2022 16:24-0400 Body surface area Derived from formula 2.19 m2 Karina Melgar Work Phone: [facility] DO Work Phone: 06-20-2022 16:24-0400 Body weight 112.49 kg Karina Melgar Work Phone: [facility] DO Work Phone: 06-20-2022 16:24-0400 Diastolic blood pressure 102 mm[Hg] Karina Melgar Work Phone: [facility] DO Work Phone: 06-20-2022 16:24-0400 Heart rate 76 /min Karina Melgar Work Phone: [facility] DO Work Phone: 06-20-2022 16:24-0400 Systolic blood pressure 162 mm[Hg] Karina Melgar Work Phone: [facility] DO Work Phone: 05-10-2022 14:46-0400 Body height 167.64 cm Karina Melgar Work Phone: [facility] [place] Work Phone: 05-10-2022 14:46-0400 Body mass index (BMI) [Ratio] 40.19 kg/m2 Karina Melgar Work Phone: [facility] [place] Work Phone: 05-10-2022 14:46-0400 Body surface area Derived from formula 2.2 m2 Karina Guardadoon Work Phone: [facility] [place] Work Phone: 05-10-2022 14:46-0400 Body weight 112.95 kg Karina Lisa Melgar Work Phone: [facility] [place] Work Phone: 05-10-2022 14:46-0400 Diastolic blood pressure 80 mm[Hg] Karina Guardadoon Work Phone: [facility] [place] Work Phone: 05-10-2022 14:46-0400 Heart rate 61 /min Karina Guardadoon Work Phone: [facility] [place] Work Phone: 05-10-2022 14:46-0400 Systolic blood pressure 130 mm[Hg] Karina Guardadoon Work Phone: [facility] [place] Work Phone: 05-02-2022 13:26-0500 Body height 167.64 cm Karina Guardadoon Work Phone: [facility] [address] DO Work Phone: 05-02-2022 13:26-0500 Body mass index (BMI) [Ratio] 40.19 kg/m2 Karina Melgar Work Phone: [facility] [address] DO Work Phone: 05-02-2022 13:26-0500 Body surface area Derived from formula 2.2 m2 Karina Melgar Work Phone: [facility] [address] DO Work Phone: 05-02-2022 13:26-0500 Body weight 112.95 kg Karina Lisa Ramón Work Phone: [facility] [address] DO Work Phone: 05-02-2022 13:26-0500 Diastolic blood pressure 64 mm[Hg] Karina Lisa Ramón Work Phone: [facility] [address] DO Work Phone: 05-02-2022 13:26-0500 Heart rate 62 /min Karina Lisa Ramón Work Phone: [facility] [address] DO Work Phone: 05-02-2022 13:26-0500 Systolic blood pressure 116 mm[Hg] Karina Lisa Ramón Work Phone: [facility] [address] DO Work Phone: 04-29-2022 11:48-0500 Body height 167.64 cm Karina Lisa Ramnó Work Phone: [facility] [address] DO Work Phone: 04-29-2022 11:48-0500 Body mass index (BMI) [Ratio] 40.09 kg/m2 Karina Lisa Ramón Work Phone: [facility] [address] DO Work Phone: 04-29-2022 11:48-0500 Body surface area Derived from formula 2.19 m2 Karina Lisa Ramón Work Phone: [facility] [address] DO Work Phone: 04-29-2022 11:48-0500 Body weight 112.67 kg Karina Lisa Ramón Work Phone: [facility] [address] DO Work Phone: 04-29-2022 11:48-0500 Diastolic blood pressure 80 mm[Hg] Karina Lisa Ramón Work Phone: [facility] [address] DO Work Phone: 04-29-2022 11:48-0500 Heart rate 60 /min Karina Melgar Work Phone: [facility] [employer] 600 DO Work Phone: 04-29-2022 11:48-0500 Systolic blood pressure 122 mm[Hg] Karina Melgar Work Phone: [facility] [employer] 600 DO Work Phone: 04-18-2022 14:45-0500 Body height 167.64 cm Karina Melgar Other [facility] Other 04-18-2022 14:45-0500 Body mass index (BMI) [Ratio] 39.54 kg/m2 Karina Melgar Other [facility] Other 04-18-2022 14:45-0500 Body weight 111.13 kg Karina Melgar Other [facility] Other 04-18-2022 14:45-0500 Diastolic blood pressure 76 mm[Hg] Karina Melgar Other [facility] Other 04-18-2022 14:45-0500 Systolic blood pressure 122 mm[Hg] Karina Melgar Other [facility] Other 03-11-2022 18:35-0500 Diastolic blood pressure 79 mm[Hg] MD Karina Melgar Work Phone: [facility] 03-11-2022 18:35-0500 Heart rate 74 /min MD Karina Melgar Work Phone: [facility] 03-11-2022 18:35-0500 Respiratory rate 20 /min MD Karina Melgar Work Phone: [facility] 03-11-2022 18:35-0500 SaO2% (BldA) [Mass fraction] 97 % MD Karina Melgar Work Phone: [facility] 03-11-2022 18:35-0500 Systolic blood pressure 137 mm[Hg] MD Karina Melgar Work Phone: [facility] 03-11-2022 13:03-0500 Body height 167.64 cm MD Karina Melgar Work Phone: [facility] 03-11-2022 13:03-0500 Body temperature 98.7 [degF] MD Karina Melgar Work Phone: [facility] 03-11-2022 13:03-0500 Body weight 116 kg MD Karina Melgar Work Phone: [facility] 06-14-2021 11:15-0400 Body height 167.64 cm Shahriar [place] II Other [facility] Other 06-14-2021 11:15-0400 Body mass index (BMI) [Ratio] 40.02 kg/m2 Shahriar Alejo II Other [facility] Other 06-14-2021 11:15-0400 Body weight 112.49 kg Shahriar [place] II Other [facility] Other 05-24-2021 15:30-0400 Body height 167.64 cm Karina Melgar Other [facility] Other 05-24-2021 15:30-0400 Body mass index (BMI) [Ratio] 40.19 kg/m2 Karina Melgar Other [employer] Other 05-24-2021 15:30-0400 Body weight 112.95 kg Karina Melgar Other [facility] Other 05-24-2021 15:30-0400 Diastolic blood pressure 80 mm[Hg] Karina Melgar Other [facility] Other 05-24-2021 15:30-0400 Systolic blood pressure 132 mm[Hg] Karina Melgar Other [facility] Other 03-21-2021 15:00-0500 Body height 167.64 cm Shahriar [place] II Other [facility] Other 03-21-2021 15:00-0500 Body mass index (BMI) [Ratio] 40.51 kg/m2 Shahriar Alejo II Other [facility] Other 03-21-2021 15:00-0500 Body weight 113.85 kg Shahriar [place] II Other [facility] Other 02-13-2021 15:45-0500 Body height 167.64 cm Karina Melgar Other [facility] Other 02-13-2021 15:45-0500 Diastolic blood pressure 80 mm[Hg] Karina Melgar Other [facility] Other 02-13-2021 15:45-0500 Systolic blood pressure 144 mm[Hg] Karina Melgar Other [employer] Other 01-29-2021 14:45-0500 Body height 167.64 cm Karina Melgar Other [employer] Other 01-29-2021 14:45-0500 Body mass index (BMI) [Ratio] 40.64 kg/m2 Karina Melgar Other [facility] Other 01-29-2021 14:45-0500 Body weight 114.22 kg Karina Melgar Other [facility] Other 01-29-2021 14:45-0500 Diastolic blood pressure 92 mm[Hg] Karina Melgar Other [facility] Other 01-29-2021 14:45-0500 SaO2% (BldA) [Mass fraction] 98 % Karina Melgar Other [facility] Other 01-29-2021 14:45-0500 Systolic blood pressure 148 mm[Hg] Karina Melgar Other [facility] Other Encounters Encounter Date Encounter Type Care Provider Facility Start: 04-04-2023 Clinisync Result Encounter Lola Seth MD Work Phone: [facility] External Department Unsolicited Start: 04-04-2023 [facility] Result Encounter Lola Seth MD Work Phone: [facility] External Department Unsolicited Start: 04-02-2023 [facility]ync Result Encounter Lia Dodge [employer] THRU ORDER TAKER Work Phone: [facility] External Department Unsolicited Start: 04-02-2023 [facility]ync Result Encounter Lia [address] [employer] THRU ORDER TAKER Work Phone: [facility] External Department Unsolicited Start: 03-10-2023 End: 03-10-2023 Patient encounter procedure Toni Goldberg MD Work Phone: [facility] Comment on above: Aftercare following surgery (Primary Dx); Closed fracture of left femur, unspecified fracture morphology, unspecified portion of femur, initial encounter ([facility] Start: 02-21-2023 Evaluation and management of inpatient JUSTICE PRETTY Facility:[facility] Start: 02-18-2023 Evaluation and management of inpatient UNKNOWN PROVIDER Facility:[facility] Start: 02-18-2023 Patient encounter status Ip 3 [facility] Work Phone: Start: 02-18-2023 ambulatory UNKNOWN PROVIDER Facili ty:[facility] Start: 02-18-2023 End: 02-18-2023 Subsequent hospital visit by physician Ip [employer]ground Supervisor 3 [facility] Start: 02-17-2023 Evaluation and management of inpatient UNKNOWN PROVIDER Facility:[facility] Start: 02-16-2023 Evaluation and management of inpatient JUSTICE PRETTY Facility:[facility] Start: 02-16-2023 Emergency department patient visit UNKNOWN PROVIDER Facility:[facility] Start: 02-15-2023 Emergency department patient visit UNKNOWN PROVIDER Facility:[facility] Start: 02-15-2023 End: 02-15-2023 ambulatory UNKNOWN PROVIDER Facility:[facility] Start: 02-15-2023 End: 02-25-2023 Evaluation and management of inpatient Vivian Espinoza MD Work Phone: [facility] Start: 02-15-2023 End: 02-25-2023 Patient encounter status iVvian Espinoza MD Work Phone: [facility] Work Phone: Start: 02-15-2023 End: 02-16-2023 Emergency department patient visit Justice Pretty Facility[facility] Start: 02-15-2023 End: 02-15-2023 Emergency department patient visit Justice Pretty [facility] Start: 08-30-2022 Office outpatient vi sit 25 minutes Karina Melgar Work Phone: [facility] DO Work Phone: Start: 08-13-2022 ambulatory Christopher Porter Facilit y: Start: 08-02-2022 ambulatory Christopher Porter Facilit y: Start: 08-02-2022 End: 08-02-2022 ambulatory Christopher Porter Facility:[facility] Start: 07-05-2022 ambulatory Christopher Porter Facilit y: Start: 07-05-2022 Office outpatient vi sit 25 minutes Karina Melgar Work Phone: [facility] [address] DO Work Phone: Start: 06-20-2022 Patient encounter procedure Karina Melgar Work Phone: [facility] DO Work Phone: Start: 06-20-2022 ambulatory Christopher Waden Facilit y: Start: 06-12-2022 Chart Update Karina floyd Work Phone: [facility] DO Work Phone: Start: 06-11-2022 End: 06-11-2022 ambulatory Christopher Porter Facility:[facility] Start: 06-11-[address] Karina Melgar Facility:[id number] Start: 05-28-2022 Patient encounter procedure Karina Melgar Work Phone: [facility] DO Work Phone: Start: 05-10-2022 Patient encounter procedure Karina Melgar Work Phone: [facility] [place] Work Phone: Start: 05-10-2022 ambulatory Christopher Sheikh y: Start: 05-03-2022 AUDIT Karina floyd Work Phone: [facility] DO Work Phone: Start: 05-02-2022 Patient encounter procedure Karina Melgar Work Phone: [facility] 600 DO Work Phone: Start: 05-02-2022 ambulatory Christopher Porter Facilit y: Start: 04-29-2022 Office outpatient vi sit 25 minutes Karina Melgar Work Phone: [facility] 600 DO Work Phone: Start: 04-29-2022 ambulatory Christopher Porter Facilit y: Start: 04-18-2022 End: 04-18-2022 ambulatory Karina Melgar Other [facility] Other Start: 04-18-2022 Office outpatient vi sit 15 minutes Karina Melgar [facility] Start: 03-29-2022 End: 03-04-2023 ambulatory TIAGO Rodrigez [facility] Start: 03-29-2022 End: 03-03-2023 Recurring Mae Rodrigez [facility] Start: 03-27-2022 End: 03-27-2022 ambulatory Karina Melgar Facility:[facility] Start: 03-27-2022 End: 03-27-2022 Patient encounter procedure MD Karina Melgar Work Phone: [facility] Work Phone: Start: 03-27-2022 End: 03-27-2022 ambulatory MD Karina Melgar Work Phone: [facility] Work Phone: Start: 03-27-2022 Telephone encounter Sejalra Link [facility] Start: 03-25-2022 End: 03-25-2022 ambulatory Sejalra Link Other [facility] Other Start: 03-25-2022 Telephone encounter Sejal Nikolay [facility] Start: 03-21-2022 ambulatory Christopher Sheikh y: Start: 03-14-2022 End: 03-14-2022 ambulatory Sejalra Link Other [facility] Other Start: 03-14-2022 Telephone encounter Sejal Nikolay [facility] Start: 03-12-2022 End: 03-12-2022 ambulatory Karina Melgar Other [facility] Other Start: 03-12-2022 Telephone encounter Karina cabrera [facility] Start: 03-11-2022 End: 03-11-2022 Emergency department patient visit Yo Blood Facility:[facility] Start: 03-11-2022 End: 03-11-2022 Emergency department patient visit MD Karina Melgar Work Phone: [facility] Work Phone: Start: 09-26-2021 End: 09-26-2021 ambulatory Shahriar M Alejo II Facility:[facility] Start: 08-28-2021 End: 08-28-2021 ambulatory Shahriar [place] II Other [facility] Other Start: 08-28-2021 Telephone encounter Shahriar Alejo II [facility] Start: 08-15-2021 (Post-Op) Post-Op Shahriar [place] II [facility] Start: 08-15-2021 End: 08-15-2021 ambulatory Shahriar M Alejo II [facility] Other Start: 07-18-2021 (Post-Op) Post-Op Shahriar [place] II [facility] Start: 07-18-2021 End: 07-18-2021 ambulatory Shahriar [place] II Other [facility] Other Start: 07-02-2021 End: 07-03-2021 ambulatory Kate Nielson Facility:[facility] Start: 06-28-2021 End: 06-28-2021 ambulatory Shahriar M Alejo II Facility:[facility] Start: 06-22-2021 (Prolonged) Prolonge d Services Shahriar Alejo II [facility] Start: 06-22-2021 End: 06-22-2021 ambulatory Shahriar [place] II Other [facility] Other Start: 06-18-2021 End: 06-18-2021 ambulatory Shahriar M Alejo II Facility:[facility] Start: 06-14-2021 End: 06-14-2021 ambulatory Shahriar [place] II Other [facility] Other Start: 06-14-2021 Encounter for other preprocedural examination Shahriar [place] II [facility] Start: 06-14-2021 Patient encounter procedure Shahriar Alejo II [facility] Start: 05-24-2021 End: 05-24-2021 ambulatory Karina Melgar Other [facility] Other Start: 05-24-2021 Encounter for other preprocedural examination Karina Melgar [facility] Start: 05-24-2021 Office outpatient vi sit 15 minutes Karina Melgar [facility] Start: 03-22-2021 End: 03-22-2021 ambulatory Lynn Gurrola Other [facility] Other Start: 03-22-2021 Encounter for other preprocedural examination Shahriar Alejo II [facility] Start: 03-22-2021 Telephone encounter Shahriar Alejo II [facility] Start: 03-21-2021 End: 03-21-2021 ambulatory Shahriar Dhillon II Other [facility] Other Start: 03-21-2021 Office outpatient ne w 45 minutes Shahriar Alejo II [facility] Start: 02-13-2021 End: 02-13-2021 ambulatory Karina Melgar Other [facility] Other Start: 02-13-2021 Office outpatient vi sit 15 minutes Karina Melgar [facility] Start: 01-29-2021 End: 01-29-2021 ambulatory Karina Melgar Other [facility] Other Start: 01-29-2021 Office outpatient vi sit 15 minutes Karina Melgar [facility] Start: 04-01-2020 End: 04-01-2020 Orders Only Alina Bueno Work Phone: [facility] Procedures Date Procedure Procedure Detail Performing Clinician Start: 04-04-2023 SRM[facility] PROTHROMBIN T NORAH INR W/O COUM Lola Seth MD Work Phone: Start: 04-02-2023 [facility] PROTHROMBIN T NORAH INR W/O COUM Lia Dodge NP Work Phone: Start: 02-25-2023 Prothrombin time Yelena Peña MD [...] dip stick/tabl et rgnt auto w/o microscopy Kevinmansi Veeal DO Work Phone: Start: 02-20-2023 COVID/INFLUENZA Kevin kearns DO Work Phone: Start: 02-20-2023 Assay of magnesium Alin Sam MD Work Phone: Start: 02-20-2023 Assay of magnesium Alin Sam MD Work Phone: Start: 02-19-2023 Heparin assay Oren cheatham MD Work Phone: Start: 02-19-2023 Assay of magnesium Alin Sam MD Work Phone: Start: 02-18-2023 Blood count complete automated Kevinmansi Barrientos DO Work Phone: Start: 02-18-2023 Fluoroscopy [...] R ho(D) and RBC antibody screening Angela Bradshaw MD Work Phone: Start: 02-15-2023 End: 02-15-2023 Drug screen quantitative alcohols Angela Bradshaw MD Work Phone: Start: 02-15-2023 End: [...] Surgery: [id number] Result Comment: PERF ORMED BY: [facility] [address] [address] PATHOLOGIST LABORER SHAFT SINKING EYAD HOWARD M.D. Start: 02-25-2016 Total colonoscopy [...] procedure 04/11/2023 10:30 AM EST Office Visit [facility] [address] [place] [address] [id number] Toni Goldberg MD [address] [place], [place] [id number] [facility] Start: 03-11-2023 FUV, Provider: Christopher Porter, Status: Mario, Time: 8:40 AM FUV, Provider: Christopher Porter, Status: Pen, Time: 8:[address] [facility] 250 DO Work Phone: Start: 10-25-[address] [facility] Start: 08-30-2022 FUV, Provider: Christopher Porter, Status: Pen, Time: 8:40 AM FUV, Provider: Christopher Porter, Status: Pen, Time: 8:[address] [facility] 600 DO Work Phone: Start: 07-18-2022 SURGNONUH, Provider: Christopher Porter, Status: Pen, Time: 10:00 AM SURGNON, Provider: Christopher Porter, Status: Pen, Time: 10:00 AM [facility] 600 DO Work Phone: Start: 07-05-2022 FUV, Provider: Christopher Porter, Status: Pen, Time: 8:40 AM FUV, Provider: Christopher Porter, Status: Pen, Time: 8:40 AM -[facility] 250 DO Work Phone: Start: 06-20-2022 EKG, Provider: ESTELA CLARKE MUSEUM GUIDE 1,[id number], Status: Pen, Time: 1:00 PM EKG, Provider: ESTELA CLARKE MUSEUM GUIDE 1,[id number], Status: Pen, Time: 1:00 PM -[facility] 250 DO Work Phone: Start: 06-11-2022 SURGNONUH, Provider: Christopher Porter, Status: Pen, Time: 2:00 PM SURGNONUH, Provider: Christopher Porter, Status: Pen, Time: 2:00 PM -[facility] 250 DO Work Phone: Start: 06-04-2022 FUV, Provider: Christopher Porter, Status: Pen, Time: 8:20 AM FUV, Provider: Christopher Porter, Status: Pen, Time: 8:20 AM -[facility] 600 DO Work Phone: Start: 05-10-2022 EKG, Provider: ESTELA CLARKE MUSEUM GUIDE 1,[id number], Status: Pen, Time: 2:00 PM EKG, Provider: ESTELA CLARKE MUSEUM GUIDE 1,[id number], Status: Pen, Time: 2:00 PM -[facility] 250 DO Work Phone: Start: 05-02-2022 EKG, Provider: ESTELA HAMPTON MUSEUM GUIDE 1,[id number], Status: Pen, Time: 1:00 PM EKG, Provider: ESTELA HAMPTON MUSEUM GUIDE 1,[id number], Status: Pen, Time: 1:00 PM -[facility] 600 DO Work Phone: Start: 10-26-2019 Influenza vaccination given Sequential Influenza Vaccine (#1) [facility] Start: 11-24-[address] [facility] Start: 2013 [facility]neum[facility] Start: 2008 RSV vaccine (optional 60+ years) RSV vaccine (optional 60+ years) [facility] Start: 2008 [facility] Start: 1998 Administration of herpes zoster vaccine Zoster Vaccines (1 of 2) [facility] Start: 1998 Screening for malignant neoplasm of colon [facility] Start: 1998 Shingles (RZV) Vaccine (1 of 2) [facility] Start: 1993 Screening for malignant neoplasm of colon [facility] Start: 11-29-1983 Lipid panel [facility] Start: 1966 Hepatitis C antibody, confirmatory test Hepatitis C Screening [facility] Start: 1966 Hepatitis C screening [facility] Start: 1966 Tetanus + diphtheria + acellular pertussis vaccine (product) [facility] Start: 1964 COVID-19 Vaccine (1 of 2) COVID-19 Vaccine (1 of 2) [facility] Start: 1960 Adolescent depression screening assessment Depression Screening (PHQ9) [facility] Start: 1954 Pneumococcal vaccination Pneumococcal Vaccine(s) (65+ yrs) (1 of 2 - PCV) [facility] Start: 11-29-1951 History and physical examination, annual for health maintenance Wellness Visit [facility] Start: 05-29-1949 COVID-19 Vaccine (#1) COVID-19 Vaccine (#1) [facility] Start: 05-29-1949 [facility] Start: 1948 Fall risk assessment Falls Risk Assessment [facility] Start: 1948 Prostate specific antigen measurement PSA Level [facility] Start: 1948 Screening for malignant neoplasm of colon [facility] Start: 1948 Tetanus vaccination Tetanus: Every 10yrs [facility] Assay of magnesium [facility] th Assay of phosphorus inorganic [facility] Basic metabolic 2000 panel - Serum or Plasma [facility] Work Phone: CBC panel - Blood by Automated count [facility] End: 02-16-2023 CT Thigh - left WO contrast [facility] Work Phone: Patient Education Atrial Fibrill ation Cough, Adult ED Bronchitis, Adult ED [facility] Work Phone: Patient referral [facility] Work Phone: End: 02-18-2023 RED BLOOD CELL [facility]ON[facility] End: 02-17-2023 Smr prim src gram/giemsa stain bct fungi/cell [facility] Work Phone: Immunizations Immunization Date Immunization Notes Care Provider Ella serna NEGATED: Highlighted row has not occurred! 6 influenza, seasonal, injectable Patient Objection Karina Melgar Other [facility] Other Payers Date Payer Category Payer Unknown [id number] 2023 Unknown XX 2022 Unknown 2021 Self-pay [id number] 2021 Unknown [id number] 2.1 [id number] 2013 Medicare [id number] 2.1 6.840.1.663986.19 2013 Medicare [id number]. [id number] 1948 Unknown [id number] 2.0.1.442620.3.579.2.356 1948 Unknown [id number] 2. 840.1.743582.3.579.2.356 1948 Unknown [id number] 2.16. 840.1.761256.3.579.2.356 1948 Unknown [id number] 2. 840.1.442388.3.579.2.356 1948 Unknown [id number] 2.16. 840.1.131809.3.579.2.356 1948 Unknown [id number] 2.16. 840.1.798751.3.579.2.356 1948 Unknown [id number] 2.16. 840.1.441798.3.579.2.356 1948 Unknown [id number] 2.16. 840.1.387539.3.579.2.356 1948 Unknown [id number] 2.16. 840.1.995503.3.579.2.356 1948 Unknown [id number] 2.16. 840.1.962378.3.579.2.356 1948 Unknown [id number] 2.16. 840.1.242042.3.579.2.732 1948 Unknown [id number] 2.16. 840.1.842057.3.579.2.732 1948 Unknown [id number] 2.16. 840.1.724365.3.579.2.732 1948 Unknown [id number] 2.16. 840.1.447989.3.579.2.732 1948 Unknown [id number] 2.16. 840.1.153187.3.579.2.732 1948 Unknown [id number] 2.16. 840.1.076382.3.579.2.732 1948 Unknown [id number] 2.16. 840.1.095155.3.579.2.732 1948 Unknown [id number] 2.16. 840.1.167368.3.579.2.732 1948 Unknown [id number] 2.16. 840.1.782747.3.579.2.732 1948 Unknown [id number] 2.16. 840.1.366752.3.579.2.732 1948 Unknown [id number] 2.16. 840.1.912545.3.579.2.732 1948 Unknown [id number] 2.16. 840.1.815581.3.579.2.732 1948 Unknown [id number] 2.16. 840.1.119238.3.579.2.732 1948 Unknown [id number] 2.16.8 40.1.552561.3.579.2.727 1948 Unknown [id number] 2.16.8 40.1.290837.3.579.2.727 1948 Unknown [id number] 2.16.8 40.1.030988.3.579.2.727 Unknown [id number] 2.16.8 40.1.748140.3.579.2.531 Unknown [id number] 2.16.8 40.1.581407.3.579.2.531 Unknown [id number] 2.16.8 40.1.644840.3.579.2.531 Unknown [id number] 2.16.8 40.1.923447.3.579.2.531 Unknown [id number] 2.16.8 40.1.900218.3.579.2.531 Unknown [id number] 2.16.8 40.1.506891.3.579.2.531 Unknown [id number] 2.16.8 40.1.140123.3.579.2.531 Unknown [id number] 2.16.8 40.1.376761.3.579.2.531 Social History Date Type Detail Facility Tobacco smoking status NHIS Unknown if ever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
[2023-04-07 07:50] LABS: INR 2.06
== END 2023-04-07 01:50 | disposition home or self-care (01) ==
LOC: LAB 01:49
PROVIDERS: PCP Family Medicine; Visit Provider Family Medicine
DX: Z79.01 Long term (current) use of anticoagulants (principal)
CPT/HCPCS: 36415; 85610

== ENCOUNTER 2023-04-08 10:59 | Outpatient (REF) | payer MEDICARE, SELFPAY ==
--- OUTSIDE RECORDS SUMMARY | 2023-04-08 11:15 | XMS_ITS | CCD ---
Author Name Unknown Address [address] [place] [address] Organization [facility] Care Team Providers Care Correspondence Representative Name Role Phone No, Physician Primary Care Provider UnavailhSahriar Frederick II Unavailable Shahriar Dhillon II Unavailable Karina Melgar Unavailable Lynn Gurrola Unavailable MD Karina Melgar Primary Care Provider [phone] DO Yo Blood Emergency Provider LISSETH Link Attending Provider Sejal Link Unavailable Karina Melgar Unavailable [phone] Unavailable Unavailable Unavailable Unavailable Karina Melgar Primary [...] able Christopher Porter Attending Unavail able Christopher oPrter Admitting Unavail able Karina Melgar Primary Care Unavailable Yo Blood Admitting Unavailable Yo Blood Attending Unavailable Karina Melgar Primary Care Unavailable Kate Nielson Consulting Unavailable Shahriar Dhillon II Admitting UnavailShahriar Frederick II Attending UnavailKarina Butler [facility] Care Unavailable Joselin Burgess Consulting Unavailable Love [...] Admitting UnavailShahriar Frederick II Attending UnavailKarina Butler [facility] Care Unavailable Christopher Porter Referring Unavailable Christopher Porter Attending Unavailable Dr. Karina Melgar [facility] Mariella vailable Christopher Porter Referring Unavailable [...] Mariella vailable KARINA MELGAR Primary Care Physician [phone] JUSTICE PRETTY Referring Unavailable RADHA SMALL Attending [...] Medication Allergies] Propensity to adverse reactions (disorder) [facility] Repository Medications Current Medications Medication Drug Class(es) Dates Sig (Normalized) Sig (Original) acetaminophen 325 mg / HYDROcodone bitartrate 5 mg oral tablet (2 sources) Opioid Agonist Start: 07-28-2020 [place] 325 mg-5 mg oral tablet 1 tab(s), [...] Active docusate sodium 50 mg / sennosides, correction 8.6 mg oral tablet (3 sources) Start: [...] MG Oral Tablet Take as directed by [facility] coumadin clinic Quantity: 0 Refills: 0 [...] 1 capsule by mouth twice daily Iron [id number]-Gx-X-Warfz Acid (Ferocon) 110-0.5 mg Capsule Discontinued 1 [...] Discontinued Start: 06-14-2021 take 1 tablet by [facility] three times daily as needed for nausea Ondansetron HCl 8 MG 1 tablet as needed for nausea Orally TID for 10 days Med to Bed Upon Discharge DOS: 07/02/2021 May, Active polyethylene glycol 3350 36177 mg powder for oral solution (4 sources) [...] Discontinued Start: 07-05-2022 take 1 capsule by [facility] every twelve hours propafenone 425 mg oral capsule, extended release take 1 capsule by mouth every 12 hours Start Date: 08/01/22 Status: Ordered Start: 05-03-2022 End: 05-03-2022 take 1 capsule by mouth every twelve hours Propafenone HCl ER 325 MG Oral Capsule Extended Release 12 Hour TAKE 1 CAPSULE EVERY 12 HOURS. Quantity: 180 Refills: 3 Ordered: 03-May-2022 Christpoher Porter MD Start : 03-May-2022 Active Start: 04-29-2022 take 1 capsule by [facility] every twelve hours Propafenone HCl ER 225 MG Oral Capsule Extended Release 12 Hour TAKE 1 CAPSULE EVERY 12 HOURS. Quantity: 180 Refills: 0 Ordered: 29-Apr-2022 Christopher Porter MD Start : 29-Apr-2022 Active new start Prostate Support TABS (10 sources) Prostate Support TABS TAKE 1 TABLET DAILY DIRECTED. Quantity: 0 Refills: 0 Ordered: 21-Mar-2022 DO Active Saw-Vit E-Sod Got-Tbw-Ixmy-Pyg (Prostate Health) 160-100-100 mg-unit-mcg Tablet (2 sources) Start: 8 End: 3 take 1 capsule by mouth once daily Saw-Vit E-Sod Lvm-Uyx-Onnu-Pyg (Prostate Health) 160-100-100 mg-unit-mcg Tablet Discontinued 1 CAP PO Daily July 27, 2017 11:00pm March 11, 2022 5:18pm sennosides, correction 8.6 mg oral tablet (1 source) Start: [...] on Fri02/17/23 at 1600, Until Discontinued Vit C-S.Jrbjxi-Tyfcrs-Youey Sd (Tart Bhagat) 33-339-33-75-20 mg Capsule (2 sources) Start: 07-28-2017 End: 08-09-2019 Vit C-S.Wufimn-Eodckd-Vrtui Sd (Tart Bhagat) 18-420-87-75-20 mg Capsule Discontinued 1 CAP PO Twice [...] source) Long-term current use of anticoagulant; 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] Episodic Other aftercare [...] 02-13-2021 Episodic Other aftercare (2 sources) Other [facility] (current) drug therapy Onset: 03-22-2021 Resolved: 06-14-2021 [...] Results Test Name Value Interpretation Reference Range [facility] PROTHROMBIN TIME INR W/O COUMon 04-07-2023 Interpretation and review of laboratory results Abnormal [facility] PT Coag (PPP) [Time] 21.0 s High [facility] INR 2.06 [facility] Comment on above: DESIRED INR: 2.0-3.0 CONDITIONS NOT LISTED BELOW 2.5-3.5 FOR PROSTHETIC HEART VALVE REPLACEMENT 2.5-3.5 RECURRENT THROMBOSIS [facility] PROTHROMBIN TIME INR W/[facility] Interpretation and review of laboratory results Abnormal [facility] PT Coag (PPP) [Time] 23.2 s High [facility] INR 2.29 [facility] Comment on above: DESIRED INR: 2.0-3.0 CONDITIONS NOT LISTED BELOW 2.5-3.5 FOR PROSTHETIC HEART VALVE REPLACEMENT 2.5-3.5 RECURRENT THROMBOSIS [facility] PROTHROMBIN TIME INR W/[facility] 04-02-2023 Interpretation and review of laboratory results Abnormal [facility] PT Coag (PPP) [Time] 37.1 s High [facility] INR 3.77 [facility] Comment on above: DESIRED INR: 2.0-3.0 CONDITIONS NOT LISTED BELOW 2.5-3.5 FOR PROSTHETIC HEART VALVE REPLACEMENT 2.5-3.5 RECURRENT THROMBOSIS [facility] Basic metabolic 2000 panelon 02-25-2023 Anion gap [Moles/Vol] 8 mmol/L Low 10 - 20 Met [facility] Calcium [Mass/Vol] 8.0 mg/dL Low 8.6 - 10. 3 mg/dL [facility] Chloride [Moles/Vol] 102 mmol/L 98 - 107 mmol/L [facility] CO2 [Moles/Vol] 30 mmol/L 21 - 31 mmol/[facility] Creatinine [Mass/Vol] 0.64 mg/dL Low 0.70 - 1.30 mg/dL [facility] GFR/1.73 sq M.predicted CKD-EPI (S/P/Bld) [Vol rate/Area] 99 - PINF [facility] Glucose [Mass/Vol] 129 mg/dL High 74 - 109 mg/dL [facility] Interpretation and review of laboratory results Abnormal [facility] Potassium [Moles/Vol] 3.8 mmol/L 3.5 - 5.0 mmol/L [facility] Sodium [Moles/Vol] 136 mmol/L 136 - 145 mmol/L [facility] Urea nitrogen [Mass/Vol] 20 mg/dL 7 - 25 mg/dL [facility] CBC panel Auto (Bld)on 02-25 Erythrocyte distribution width (RBC) [Ratio] 16.3 % High 11.5 - 14.5 % [facility] Hematocrit (Bld) [Volume fraction] 27.5 % Low 41.0 - 53.0 % [facility] Hemoglobin (Bld) [Mass/Vol] 8.9 g/dL Low 13.9 - 16.3 g/dL [facility] Interpretation and review of laboratory results Abnormal [facility] MCH (RBC) [Entitic mass] 30.8 pg 26.0 - 34.0 pg [facility] MCHC (RBC) [Mass/Vol] 32.5 g/dL 32.0 - 35.9 g/dL [facility] MCV (RBC) [Entitic vol] 95 fL 80 - 100 fL [facility] Platelet mean volume (Bld) [Entitic vol] 8.0 fL 7.5 - 11.2 fL [facility] Platelets (Bld) [#/Vol] 376 10*3/uL 150 - 400 K/uL [facility] RBC (Bld) [#/Vol] 2.90 10*6/uL Low [facility] WBC (Bld) [#/Vol] 8.5 10*3/uL 4.5 - 11.5 K/uL [facility] MAGNESIUMon 02-25-2023 Magnesium [Mass/Vol] 1.9 mg/dL 1.6 - 2.8 mg/dL [facility] No Panel Informationon 02-25 Interpretation and review of laboratory results [facility] 02-25-2023 Phosphate [Mass/Vol] 2.9 mg/dL 2.3 - 4.2 mg/dL [facility] PROTHROMBIN TIME AND INRon 0 02-25-2023 INR Coag (PPP) [Relative time] 1.13 {INR} High 0.90 - 1.10 [facility] Interpretation and review of laboratory results Abnormal [facility] PT Coag (PPP) [Time] 12.6 s [facility] ANTI FXA-LMW HEPARINon 02-24 LMW Heparin Chromogenic method Qn (PPP) 0.32 IU/mL [facility] Basic metabolic 2000 panelon 02-24-2023 Anion gap [Moles/Vol] 9 mmol/L Low 10 - 20 Met [facility] Calcium [Mass/Vol] 7.7 mg/dL Low 8.6 - 10. 3 mg/dL [facility] Chloride [Moles/Vol] 101 mmol/L 98 - 107 mmol/L [facility] CO2 [Moles/Vol] 30 mmol/L 21 - 31 mmol/L [facility] Creatinine [Mass/Vol] 0.60 mg/dL Low 0.70 - 1.30 mg/dL [facility] GFR/1.73 sq M.predicted CKD-EPI (S/P/Bld) [Vol rate/Area] 101 - PINF [facility] Glucose [Mass/Vol] 98 mg/dL 74 - 109 mg/dL [facility] Interpretation and review of laboratory results Abnormal [facility] Potassium [Moles/Vol] 4.0 mmol/L 3.5 - 5.0 mmol/L [facility] Sodium [Moles/Vol] 136 mmol/L 136 - 145 mmol/L [facility] Urea nitrogen [Mass/Vol] 19 mg/dL 7 - 25 mg/dL [facility] CBC panel Auto (Bld)on 02-24 Erythrocyte distribution width (RBC) [Ratio] 15.4 % High 11.5 - 14.5 % [facility] Hematocrit (Bld) [Volume fraction] 25.2 % Low 41.0 - 53.0 % [facility] Hemoglobin (Bld) [Mass/Vol] 8.3 g/dL Low 13.9 - 16.3 g/dL [facility] Interpretation and review of laboratory results Abnormal [facility] MCH (RBC) [Entitic mass] 30.7 pg 26.0 - 34.0 pg [facility] MCHC (RBC) [Mass/Vol] 33.1 g/dL 32.0 - 35.9 g/dL [facility] MCV (RBC) [Entitic vol] 93 fL 80 - 100 fL [facility] Platelet mean volume (Bld) [Entitic vol] 7.6 fL 7.5 - 11.2 fL [facility] Platelets (Bld) [#/Vol] 320 10*3/uL 150 - 400 K/uL [facility] RBC (Bld) [#/Vol] 2.72 10*6/uL Low [facility] WBC (Bld) [#/Vol] 7.6 10*3/uL 4.5 - 11.5 K/uL [facility] MAGNESIUMon 02-24-2023 Magnesium [Mass/Vol] 1.9 mg/dL 1.6 - 2.8 mg/dL [facility] No Panel Informationon 02-24 Interpretation and review of laboratory results Normal [facility] 02-24-2023 Phosphate [Mass/Vol] 2.7 mg/dL 2.3 - 4.2 mg/dL [facility] Basic metabolic 2000 panelon 02-23-2023 Anion gap [Moles/Vol] 9 mmol/L Low 10 - 20 Met [facility] Calcium [Mass/Vol] 7.8 mg/dL Low 8.6 - 10. 3 mg/dL [facility] Chloride [Moles/Vol] 99 mmol/L 98 - 107 mmol/L [facility] CO2 [Moles/Vol] 32 mmol/L High 21 - 31 mmol/L [facility] Creatinine [Mass/Vol] 0.59 mg/dL Low 0.70 - 1.30 mg/dL [facility] GFR/1.73 sq M.predicted CKD-EPI (S/P/Bld) [Vol rate/Area] 102 - PINF [facility] Glucose [Mass/Vol] 88 mg/dL 74 - 109 mg/dL [facility] Interpretation and review of laboratory results Abnormal [facility] Potassium [Moles/Vol] 4.0 mmol/L 3.5 - 5.0 mmol/L [facility] Sodium [Moles/Vol] 136 mmol/L 136 - 145 mmol/L [facility] Urea nitrogen [Mass/Vol] 22 mg/dL 7 - 25 mg/dL [facility] CBC panel Auto (Bld)on 02-23 Erythrocyte distribution width (RBC) [Ratio] 15.3 % High 11.5 - 14.5 % [facility] Hematocrit (Bld) [Volume fraction] 26.6 % Low 41.0 - 53.0 % [facility] Hemoglobin (Bld) [Mass/Vol] 8.7 g/dL Low 13.9 - 16.3 g/dL [facility] Interpretation and review of laboratory results Abnormal [facility] MCH (RBC) [Entitic mass] 30.4 pg 26.0 - 34.0 pg [facility] MCHC (RBC) [Mass/Vol] 32.7 g/dL 32.0 - 35.9 g/dL [facility] MCV (RBC) [Entitic vol] 93 fL 80 - 100 fL [facility] Platelet mean volume (Bld) [Entitic vol] 8.7 fL 7.5 - 11.2 fL [facility] Platelets (Bld) [#/Vol] 285 10*3/uL 150 - 400 K/uL [facility] RBC (Bld) [#/Vol] 2.86 10*6/uL Low [facility] WBC (Bld) [#/Vol] 8.2 10*3/uL 4.5 - 11.5 K/[facility]L [facility] 02-23-2023 Magnesium [Mass/Vol] 2.0 mg/dL 1.6 - 2.8 mg/dL [facility] No Panel Informationon 02-23 Interpretation and review of laboratory results Normal [facility] PHOSPHORUSon 02-23-2023 Phosphate [Mass/Vol] 2.6 mg/dL 2.3 - 4.2 mg/dL [facility] ANTI FXA-LMW HEPARINon 02-22 ANTI FXA-LMW HEPARIN ASSAY 0.48 IU/mL Normal [facility] Comment on above: Order Comment: The r ecommended therapeutic range for treatment of thrombosis with Low Molecular Weight Heparin is 0.5 - 1.0 IU/mLThe recommended range for VTE prophylaxis with Low Molecular Weight Heparin is 0.2 - 0.4 IU/mL. Performed By: #### T S #### [facility] [address] [place] [address], [id number] LMW Heparin Chromogenic method Qn (PPP) 0.48 IU/mL [facility] BASIC METABOLIC PANELon 01-26 Anion gap [Moles/Vol] 7 mmol/L Low 10-20 [facility] Comment on above: Performed By: #### 8 [id number] #### [facility] [address] [place], [address] Calcium [Mass/Vol] 7.7 mg/dL Low 8.6-10.3 [facility] Comment on above: Result Comment: Note updated reference ranges. Performed By: #### 8 [id number] #### NURSING GLUCOSE PROGRAM [address] [place], [address] Chloride [Moles/Vol] 101 mmol/L Normal 98-107 [facility] Comment on above: Result Comment: Note updated reference ranges. Performed By: #### 8 [id number] #### NURSING GLUCOSE PROGRAM [address] [place], [address] CO2 [Moles/Vol] 33 mmol/L High 21-31 [facility] Comment on above: Result Comment: Note updated reference ranges. Performed By: #### 8 2948 #### NURSING GLUCOSE PROGRAM [address] [place], [address] Creatinine [Mass/Vol] 0.60 mg/dL Low 0.70-1.30 [facility] Comment on above: Result Comment: Note updated reference ranges. Performed By: #### 8 2948 #### NURSING GLUCOSE PROGRAM [address] [place], [address] ESTIMATED GFR (CKD-EPI) 101 mL/min/1.73sqm Normal >=60 [...] Inclusion of Race in Diagnosing Kidney Disease. [place] Journal of Kidney Diseases 2021;79(2):268-88.e1. 2. N Engl J Med 1 Vol. 385 Issue 19 Pages 3045-0211 Performed By: #### 8 2948 #### NURSING GLUCOSE PROGRAM [address] [place], [address] Glucose [Mass/Vol] 105 mg/dL Normal 74-109 [facility] Comment on above: Performed By: #### 8 2948 #### NURSING GLUCOSE PROGRAM [address] [place], [address] Potassium [Moles/Vol] 3.6 mmol/L Normal 3.5-5.0 [facility] Comment on above: Result Comment: Note updated reference ranges. Note updated reference ranges. Performed By: #### 8 2948 #### NURSING GLUCOSE PROGRAM [address] [place], [address] Sodium [Moles/Vol] 137 mmol/L Normal 136-145 [facility] Comment on above: Result Comment: Note updated reference ranges. Performed By: #### 8 2948 #### NURSING GLUCOSE PROGRAM [address] [place], [address] Urea nitrogen [Mass/Vol] 23 mg/dL Normal 7-25 [facility] Comment on above: Result Comment: Note updated reference ranges. Performed By: #### 8 2948 #### NURSING GLUCOSE PROGRAM [address] [place], [address] Basic metabolic 2000 panelon 02-22-2023 Anion gap [Moles/Vol] 7 mmol/L Low 10 - 20 [facility] Calcium [Mass/Vol] 7.7 mg/dL Low 8.6 - 10. 3 mg/dL [facility] Chloride [Moles/Vol] 101 mmol/L 98 - 107 mmol/L [facility] CO2 [Moles/Vol] 33 mmol/L High 21 - 31 mmol/L [facility] Creatinine [Mass/Vol] 0.60 mg/dL Low 0.70 - 1.30 mg/dL [facility] GFR/1.73 sq M.predicted CKD-EPI (S/P/Bld) [Vol rate/Area] 101 - PINF [facility] Glucose [Mass/Vol] 105 mg/dL 74 - 109 mg/dL [facility] Interpretation and review of laboratory results Abnormal [facility] Potassium [Moles/Vol] 3.6 mmol/L 3.5 - 5.0 mmol/L [facility] Sodium [Moles/Vol] 137 mmol/L 136 - 145 mmol/L [facility] Urea nitrogen [Mass/Vol] 23 mg/dL 7 - 25 mg/dL [facility] CBC panel Auto (Bld)on 02-22 Erythrocyte distribution width (RBC) [Ratio] 15.4 % High 11.5 - 14.5 % [facility] Hematocrit (Bld) [Volume fraction] 23.9 % Low 41.0 - 53.0 % [facility] Hemoglobin (Bld) [Mass/Vol] 8.0 g/dL Low 13.9 - 16.3 g/dL [facility] Interpretation and review of laboratory results Abnormal [facility] MCH (RBC) [Entitic mass] 30.7 pg 26.0 - 34.0 pg [facility] MCHC (RBC) [Mass/Vol] 33.3 g/dL 32.0 - 35.9 g/dL [facility] MCV (RBC) [Entitic vol] 92 fL 80 - 100 fL [facility] Platelet mean volume (Bld) [Entitic vol] 8.7 fL 7.5 - 11.2 fL [facility] Platelets (Bld) [#/Vol] 227 10*3/uL 150 - 400 K/uL [facility] RBC (Bld) [#/Vol] 2.60 10*6/uL Low [facility] WBC (Bld) [#/Vol] 7.6 10*3/uL 4.5 - 11.5 K/uL M [facility] COMPLETE BLOOD COUNTon 02-22 Erythrocyte distribution width (RBC) [Ratio] 15.4 % High 11.5-14.5 [facility] Comment on above: Performed By: #### T S #### [facility] [address] [place] [address], Hematocrit (Bld) [Volume fraction] 23.9 % Low 41.0-53.0 [facility] Comment on above: Performed By: #### T S #### S [facility] [address] [place] [address], Hemoglobin (Bld) [Mass/Vol] 8.0 g/dL Low 13.9-16.3 [facility] Comment on above: Performed By: #### T S #### S [facility] [address] [place] [address], MCH (RBC) [Entitic mass] 30.7 pg Normal 26.0-34.0 [facility] Comment on above: Performed By: #### T S #### S [facility] [address], [place], MCHC (RBC) [Mass/Vol] 33.3 g/dL Normal 32.0-35.9 [facility] Comment on above: Performed By: #### T S #### [facility] [address], [place], MCV (RBC) [Entitic vol] 92 fL Normal 80-100 [facility] Comment on above: Performed By: #### T S #### [facility] [address], [place], Platelet mean volume (Bld) [Entitic vol] 8.7 fL Normal 7.5-11.2 [facility] Comment on above: Performed By: #### T S #### S [facility] [address], [place], Platelets (Bld) [#/Vol] 227 10*3/uL Normal 150-400 [facility] Comment on above: Performed By: #### T S #### S [facility] [address], [place], RBC (Bld) [#/Vol] 2.60 10*6/uL Low 4.50-5.90 [facility] Comment on above: Performed By: #### T S #### S [facility] [address], [place], WBC (Bld) [#/Vol] 7.6 10*3/uL Normal 4.5-11.5 [facility] Comment on above: Performed By: #### T S #### S [facility] [address], [place], Care Plan Noteon 02-22-2023 Loan Review Manager Authentication Interface Message Text Problem: Routine Care: [...] and once discontinued Outcome: Progressing Normal [facility] MAGNESIUMon 02-22-2023 Magnesium [Mass/Vol] 2.0 mg/dL Normal 1.6-2.8 [facility] Comment on above: Performed By: #### 8 2948 #### NURSING GLUCOSE PROGRAM [address] [place] [address], [address] Magnesium [Mass/Vol] 2.0 mg/dL 1.6 - 2.8 mg/dL [facility] No Panel Informationon 02-22 Interpretation and review of laboratory results Normal [facility] PHOSPHORUSon 02-22-2023 Phosphate [Mass/Vol] 2.8 mg/dL Normal 2.3-4.2 [facility] Comment on above: Performed By: #### 8 2948 #### NURSING GLUCOSE PROGRAM [address] [place] [address], [address] Phosphate [Mass/Vol] 2.8 mg/dL 2.3 - 4.2 mg/dL [facility] BASIC METABOLIC PANELon 12-2 Anion gap [Moles/Vol] 9 mmol/L Low 10-20 [facility] Comment on above: Performed By: #### 8 2948 #### NURSING GLUCOSE PROGRAM [address] [place], [address] Calcium [Mass/Vol] 7.5 mg/dL Low 8.6-10.3 [facility] Comment on above: Result Comment: Note updated reference ranges. Performed By: #### 8 2948 #### NURSING GLUCOSE PROGRAM [address] [place], [address] Chloride [Moles/Vol] 100 mmol/L Normal 98-107 [facility] Comment on above: Result Comment: Note updated reference ranges. Performed By: #### 8 2948 #### NURSING GLUCOSE PROGRAM [address] [place], [address] CO2 [Moles/Vol] 33 mmol/L High 21-31 [facility] Comment on above: Result Comment: Note updated reference ranges. Performed By: #### 8 2948 #### NURSING GLUCOSE PROGRAM [address] [place], [address] Creatinine [Mass/Vol] 0.65 mg/dL Low 0.70-1.30 [facility] Comment on above: Result Comment: Note updated reference ranges. Performed By: #### 8 2948 #### NURSING GLUCOSE PROGRAM [address] [place], [address] ESTIMATED GFR (CKD-EPI) 99 mL/min/1.73sqm Normal >=60 [facility] Comment on above: Result Comment: 2020 [...] Inclusion of Race in Diagnosing Kidney Disease. [place] Journal of Kidney Diseases 2021;79(2):268-88.e1. 2. N Engl J Med 2021 Vol. 385 Issue 19 Pages 5507-9778 Performed By: #### 8 2948 #### NURSING GLUCOSE PROGRAM [address] [place], [address] Glucose [Mass/Vol] 104 mg/dL Normal 74-109 [facility] Comment on above: Performed By: #### 8 2948 #### NURSING GLUCOSE PROGRAM [address] [place], [address] Potassium [Moles/Vol] 3.5 mmol/L Normal 3.5-5.0 [facility] Comment on above: Result Comment: Note updated reference ranges. Note updated reference ranges. Performed By: #### 8 2948 #### NURSING GLUCOSE PROGRAM [address] [place], [address] Sodium [Moles/Vol] 138 mmol/L Normal 136-145 [facility] Comment on above: Result Comment: Note updated reference ranges. Performed By: #### 8 2948 #### NURSING GLUCOSE PROGRAM [address] [place], [address] Urea nitrogen [Mass/Vol] 24 mg/dL Normal 7-25 [facility] Comment on above: Result Comment: Note updated reference ranges. Performed By: #### 8 2948 #### NURSING GLUCOSE PROGRAM [address] [place], [address] BLOOD CULTUREon 02-21-2023 Bacteria identified Cx Nom (Bld) No Growth [facility] Interpretation and review of laboratory results Normal [facility] Basic metabolic 2000 panelon 02-21-2023 Anion gap [Moles/Vol] 9 mmol/L Low 10 - 20 [facility] Calcium [Mass/Vol] 7.5 mg/dL Low 8.6 - 10. 3 mg/dL [facility] Chloride [Moles/Vol] 100 mmol/L 98 - 107 mmol/L [facility] CO2 [Moles/Vol] 33 mmol/L High 21 - 31 mmol/L [facility] Creatinine [Mass/Vol] 0.65 mg/dL Low 0.70 - 1.30 mg/dL [facility] GFR/1.73 sq M.predicted CKD-EPI (S/P/Bld) [Vol rate/Area] 99 - PINF [facility] Glucose [Mass/Vol] 104 mg/dL 74 - 109 mg/dL [facility] Interpretation and review of laboratory results Abnormal [facility] Potassium [Moles/Vol] 3.5 mmol/L 3.5 - 5.0 mmol/L [facility] Sodium [Moles/Vol] 138 mmol/L 136 - 145 mmol/L [facility] Urea nitrogen [Mass/Vol] 24 mg/dL 7 - 25 mg/dL [facility] CBC panel Auto (Bld)on 02-21 Erythrocyte distribution width (RBC) [Ratio] 14.5 % 11.5 - 14.5 % [facility] Hematocrit (Bld) [Volume fraction] 21.8 % Low 41.0 - 53.0 % [facility] Hemoglobin (Bld) [Mass/Vol] 7.6 g/dL Low 13.9 - 16.3 g/dL [facility] Interpretation and review of laboratory results Abnormal [facility] MCH (RBC) [Entitic mass] 31.5 pg 26.0 - 34.0 pg [facility] MCHC (RBC) [Mass/Vol] 34.6 g/dL 32.0 - 35.9 g/dL [facility] MCV (RBC) [Entitic vol] 91 fL 80 - 100 fL [facility] Platelet mean volume (Bld) [Entitic vol] 8.3 fL 7.5 - 11.2 fL [facility] Platelets (Bld) [#/Vol] 199 10*3/uL 150 - 400 K/uL [facility] RBC (Bld) [#/Vol] 2.40 10*6/uL [facility] W[facility] (Bld) [#/Vol] 9.6 10*3/uL 4.5 - 11.5 K/uL [facility] COMPLETE BLOOD COUNTon 02-21 Erythrocyte distribution width (RBC) [Ratio] 14.5 % Normal 11.5-14.5 [facility] Comment on above: Performed By: #### T S #### [facility] [address] [place] [address], Hematocrit (Bld) [Volume fraction] 21.8 % Low 41.0-53.0 [facility] Comment on above: Performed By: #### T S #### [facility] [address], [place], Hemoglobin (Bld) [Mass/Vol] 7.6 g/dL Low 13.9-16.3 [facility] Comment on above: Performed By: #### T S #### [facility] [address], [place], MCH (RBC) [Entitic mass] 31.5 pg Normal 26.0-34.0 [facility] Comment on above: Performed By: #### T S #### [facility] [address], [place], MCHC (RBC) [Mass/Vol] 34.6 g/dL Normal 32.0-35.9 [facility] Comment on above: Performed By: #### T S #### S PATHOLOGY LABORATORY [address], [place], MCV (RBC) [Entitic vol] 91 fL Normal 80-100 [facility] Comment on above: Performed By: #### T S #### S [facility] LABORATORY [address], [place], Platelet mean volume (Bld) [Entitic vol] 8.3 fL Normal 7.5-11.2 [facility] Comment on above: Performed By: #### T S #### S [facility] LAB[facility] [address], [place], Platelets (Bld) [#/Vol] 199 10*3/uL Normal 150-400 [facility] Comment on above: Performed By: #### T S #### S [facility] LAB[facility] [address], [place], RBC (Bld) [#/Vol] 2.40 10*6/uL Low 4.50-5.90 [facility] Comment on above: Performed By: #### T S #### S [facility] LAB[facility] [address], [place], WBC (Bld) [#/Vol] 9.6 10*3/uL Normal 4.5-11.5 [facility] Comment on above: Performed By: #### T S #### [facility] [address], [place], Care Plan Noteon 02-21-2023 Loan Review Manager Authentication Interface Message Text Problem: Routine Care: [...] and once discontinued Outcome: Progressing Normal [facility] GLUCOSE, FINGERSTICK-IN OFFI CEon 02-21-2023 Glucose [Mass/Vol] 144 mg/dL High 80-116 [facility] Comment on above: Performed By: #### [id number] #### NURSING GLUCOSE PROGRAM [address] [place] [address], [address] Glucose [Mass/Vol] 144 mg/dL High 80 - 116 mg/dL [facility] Interpretation and review of laboratory results Abnormal [facility] MAGNESIUMon 02-21-2023 Magnesium [Mass/Vol] 1.9 mg/dL Normal 1.6-2.8 [facility] Comment on above: Performed By: #### T S #### [facility] [address], [place], Magnesium [Mass/Vol] 1.9 mg/dL 1.6 - 2.8 mg/dL [facility] No Panel Informationon 02-21 Interpretation and review of laboratory results Normal [facility] PHOSPHORUSon 02-21-2023 Phosphate [Mass/Vol] 2.3 mg/dL Normal 2.3-4.2 [facility] Comment on above: Performed By: #### T S #### [facility] [address], [place], Phosphate [Mass/Vol] 2.3 mg/dL 2.3 - 4.2 mg/dL [facility] Procedureson 02-21-2023 Loan Review Manager Authentication Interface Message Text Upper Extremities Venous Duplex [address] [place], [place] [address] Status:Open Demographics Patient name: JUAN Leung Gender: Male Date of : 1950 Age: 72 year(s) Procedure Information Procedure date: 02/21/2023 2:15 PM Procedure type: Vascular Proc. sub type: Veins, Upper Extremities Veins, LIMITED DUPLEX VEIN SCAN UE Accession no: [id number] Patient status: Routine Study location: Portable Technical quality: Poor visualization Limitation reason: Poor acoustical window Procedure Staff Referring Physician: SUKHWINDER BRIAN Aluminum Molder: Alex Castañeda RVT Interpreting physician: NATAN Ceja MD Indications Pain, edema, discoloration. Risk Factors Additional comments: No significant history Page 1/2 JUAN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 Comment on above: Performed By: #### P T #### [facility] [address], [place], BLOOD PRODUCT UNIT INFO [id number] Normal [facility] Comment on above: Performed By: #### ASIA Freitas PHOS #### [facility] [address] [place] [address], BLOOD PRODUCT UNIT INFO [id number] Normal [facility] Comment on above: Performed By: #### Coby CORREA ####[facility] [id number] [place], [place], BLOOD PRODUCT UNIT INFO [id number] Normal [facility] Comment on above: Performed By: ###Maxwell CORREA ####[facility] [id number] [place], [place], BLOOD PRODUCT UNIT TYPE 5100 Normal [facility] Comment on above: Result Comment: O Po s Performed By: #### P Kimberly #### [facility] [address] [place] [address], Performed By: #### ASIA Freitas PHOS #### [facility] [address] [place] [address], Performed By: #### Coby CORREA ####[facility] [id number] [place], [place], CROSSMATCH INTERPRETATION Compatible (E) Normal [facility] Comment on above: Performed By: #### Rolf T #### [facility] [address] [place] [address], Performed By: #### ASIA Freitas PHOS #### [facility] [address] [place] [address], Performed By: #### Coby CORREA ####[facility] [id number] [place], [place], Transfer Documentson 023 Transfer Documents [id number] 1.00TIFF Normal [facility] VANCOMYCIN RANDOMon 02-19-20 23 VANC R 8.2 ug/mL Normal 5.0-40.0 [facility] Comment on above: Performed By: #### P T #### [facility] [address] [place] [address], Vancomycin [Mass/Vol] 8.2 ug/mL 5.0 - 40.0 ug/mL [facility] BASIC METABOLIC PANELon 01-25 Anion gap [Moles/Vol] 11 mmol/L Normal 10-20 [facility] Comment on above: Performed By: #### ASIA Freitas, PHOS #### [facility] [address] [place] [address], Calcium [Mass/Vol] 8.3 mg/dL Low 8.6-10.3 [facility] Comment on above: Result Comment: Note updated reference ranges. Performed By: #### ASIA Freitas, PHOS #### [facility] [address], [place], Chloride [Moles/Vol] 105 mmol/L Normal 98-107 [facility] Comment on above: Result Comment: Note updated reference ranges. Performed By: #### ASIA Freitas, PHOS #### [facility] [address] [place] [address], CO2 [Moles/Vol] 24 mmol/L Normal 21-31 [facility] Comment on above: Result Comment: Note updated reference ranges. Performed By: #### ASIA Freitas, PHOS #### [facility] [address], [place], Creatinine [Mass/Vol] 1.00 mg/dL Normal 0.70-1.30 [facility] Comment on above: Result Comment: Note updated reference ranges. Performed By: #### ASIA Freitas, PHOS #### [facility] [address], [place], ESTIMATED GFR (CKD-EPI) 79 mL/min/1.73sqm Normal >=60 [facility] Comment on above: Result Comment: 2020 [...] Inclusion of Race in Diagnosing Kidney Disease. [place] Journal of Kidney Diseases 2021;79(2):268-88.e1. 2. N Engl J Med 2020 Vol. 385 Issue 19 Pages 3686-0522 Performed By: #### ASIA Freitas PHOS #### [facility] [address], [place], Glucose [Mass/Vol] 189 mg/dL High 74-109 [facility] Comment on above: Performed By: #### ASIA Freitas PHOS #### [facility] [address], [place], Potassium [Moles/Vol] 4.0 mmol/L Normal 3.5-5.0 [facility] Comment on above: Result Comment: Note updated reference ranges. Note updated reference ranges. Performed By: #### ASIA Freitas PHOS #### [facility] [address], [place], Sodium [Moles/Vol] 136 mmol/L Normal 136-145 [facility] Comment on above: Result Comment: Note updated reference ranges. Performed By: #### ASIA Freitas PHOS #### [facility] [address], [place], Urea nitrogen [Mass/Vol] 36 mg/dL High 7-25 [facility] Comment on above: Result Comment: Note updated reference ranges. Performed By: #### ASIA Freitas PHOS #### [facility] [address], [place], BLOOD GAS, ARTERIALon 2022 CR GEOVANNI -1.0 mmol/L Normal -2.0-3.0 [facility] Comment on above: Performed By: #### C BC #### S PATHOLOGY LABORATORY [address] [place] [address], CR PCO2 38.6 mm Hg Normal 35.0-45.0 [facility] Comment on above: Performed By: #### C BC #### S [facility]OLOGY LABORATORY [address] [place] [address], CR PHA 7.395 Normal 7.350-7.450 [facility] Comment on above: Performed By: #### C BC #### S [facility] LABORATORY [address] [place] [address], CR PO2 81 mm Hg Normal 80-100 [facility] Comment on above: Performed By: #### C BC #### S PATHOLOGY LABORATORY [address] [place] [address], FIO2 (CATEGORY) 2 LPM Normal [facility] Comment on above: Performed By: #### C BC #### [facility] [address] [place] [address], HCO3 (Bld) [Moles/Vol] 23 mmol/L Normal 21-28 [facility] Comment on above: Performed By: #### C BC #### [facility] [address] [place] [address], MODE Nasal Canula Normal [facility] Comment on above: Performed By: #### C BC #### S PATHOLOGY LABORATORY [address] [place] [address], Oxygen saturation in Blood 96.1 % Normal 95.0-99.0 [facility] Comment on above: Performed By: #### C BC #### S PATHOLOGY LABORATORY [address] [place] [address], BLOOD GAS, VENOUSon 12-25-20 23 CR ABEV -0.3 mmol/L Normal -2.0-3.0 [facility] Comment on above: Performed By: #### C BC #### [facility] [address] [place] [address], CR HCO3V 25 mmol/L Normal 21-28 [facility] Comment on above: Performed By: #### C BC #### [facility] [address], [place], CR PHV 7.367 Normal 7.320-7.430 [facility] Comment on above: Performed By: #### C BC #### S PATHOLOGY LABORATORY [address], [place], CR PVCO2 43.8 mm Hg Normal 41.0-51.0 [facility] Comment on above: Performed By: #### C BC #### S PATHOLOGY LABORATORY [address], [place], CR PVO2 36 mm Hg Low 38-44 [facility] Comment on above: Performed By: #### C BC #### S PATHOLOGY LABORATORY [address], [place], Oxygen saturation in Blood 67.1 % Low 70.0-80.0 [facility] Comment on above: Performed By: #### C BC #### [facility] [address], [place], Basic metabolic 2000 panelon 02-17-2023 Anion gap [Moles/Vol] 11 mmol/L 10 - 20 Met [facility] Calcium [Mass/Vol] 8.3 mg/dL Low 8.6 - 10. 3 mg/dL [facility] Chloride [Moles/Vol] 105 mmol/L 98 - 107 mmol/L [facility] CO2 [Moles/Vol] 24 mmol/L 21 - 31 mmol/L [facility] Creatinine [Mass/Vol] 1.00 mg/dL 0.70 - 1.30 mg/dL [facility] GFR/1.73 sq M.predicted CKD-EPI (S/P/Bld) [Vol rate/Area] 79 - PINF [facility] Glucose [Mass/Vol] 189 mg/dL High 74 - 109 mg/dL [facility] Interpretation and review of laboratory results Abnormal [facility] Potassium [Moles/Vol] 4.0 mmol/L 3.5 - 5.0 mmol/L [facility] Sodium [Moles/Vol] 136 mmol/L 136 - 145 mmol/L [facility] Urea nitrogen [Mass/Vol] 36 mg/dL High 7 - 25 mg/dL [facility] CBC panel Auto (Bld)on 02-17 Erythrocyte distribution width (RBC) [Ratio] 14.9 % High 11.5 - 14.5 % [facility] Hematocrit (Bld) [Volume fraction] 29.5 % Low 41.0 - 53.0 % [facility] Hemoglobin (Bld) [Mass/Vol] 10.1 g/dL Low 13.9 - 16.3 g/dL [facility] Interpretation and review of laboratory results Abnormal [facility] MCH (RBC) [Entitic mass] 30.3 pg 26.0 - 34.0 pg [facility] MCHC (RBC) [Mass/Vol] 34.2 g/dL 32.0 - 35.9 g/dL [facility] MCV (RBC) [Entitic vol] 89 fL 80 - 100 fL [facility] Platelet mean volume (Bld) [Entitic vol] 8.6 fL 7.5 - 11.2 fL [facility] Platelets (Bld) [#/Vol] 145 10*3/uL Low 150 - 400 K/uL [facility] RBC (Bld) [#/Vol] 3.33 10*6/uL Low [facility] WBC (Bld) [#/Vol] 9.9 10*3/uL 4.5 - 11.5 K/uL [facility] COMPLETE BLOOD COUNTon 02-17 Erythrocyte distribution width (RBC) [Ratio] 14.9 % High 11.5-14.5 [facility] Comment on above: Performed By: #### C BC ####S PATHOLOGY [id number] [place], [place], Hematocrit (Bld) [Volume fraction] 29.5 % Low 41.0-53.0 [facility] Comment on above: Performed By: #### C BC ####S PATHOLOGY [id number] [place], Hemoglobin (Bld) [Mass/Vol] 10.1 g/dL Low 13.9-16.3 [facility] Comment on above: Performed By: #### C BC ####S PATHOLOGY [id number] [place], MCH (RBC) [Entitic mass] 30.3 pg Normal 26.0-34.0 [facility] Comment on above: Performed By: #### C BC ####[facility] [id number] [place], MCHC (RBC) [Mass/Vol] 34.2 g/dL Normal 32.0-35.9 [facility] Comment on above: Performed By: #### C BC ####[facility] [id number] [place], MCV (RBC) [Entitic vol] 89 fL Normal 80-100 [facility] Comment on above: Performed By: #### C BC ####[facility] [id number] [place], Platelet mean volume (Bld) [Entitic vol] 8.6 fL Normal 7.5-11.2 [facility] Comment on above: Performed By: #### C BC ####S PATHOLOGY [id number] [place], Platelets (Bld) [#/Vol] 145 10*3/uL Low 150-400 [facility] Comment on above: Performed By: #### C BC ####[facility] [id number] [place], RBC (Bld) [#/Vol] 3.33 10*6/uL Low 4.50-5.90 [facility] Comment on above: Performed By: #### C BC ####S PATHOLOGY [id number] [place], WBC (Bld) [#/Vol] 9.9 10*3/uL Normal 4.5-11.5 [facility] Comment on above: Performed By: #### C BC ####S PATHOLOGY [id number] [place], [place], Care Plan Noteon 02-17-2023 Loan Review Manager Authentication Interface Message Text Problem: Routine Care: [...] will be met Outcome: Progressing Normal [facility] Consultson 02-17-2023 Loan Review Manager Authentication Interface Message Text PHYSICAL/OCCUPATIONAL THERAPY Attempted to see patient for PT/OT evals this date. Patient scheduled for OR this date for fixation of left femur fracture. Will follow up post-operative as able and medically appropriate. Sylvia Alcantara PT Normal [facility] GLUCOSE, FINGERSTICK-IN OFFI CEon 02-17-2023 Glucose [Mass/Vol] 140 mg/dL High 80-116 [facility] Comment on above: Performed By: #### 8 2948 #### NURSING GLUCOSE PROGRAM [address] [place], [address] Glucose [Mass/Vol] 140 mg/dL High 80 - 116 mg/dL [facility] Interpretation and review of laboratory results Abnormal [facility] MAGNESIUMon 02-17-2023 Magnesium [Mass/Vol] 1.7 mg/dL Normal 1.6-2.8 [facility] Comment on above: Performed By: #### C BC #### [facility] [address] [place], [address] Magnesium [Mass/Vol] 1.7 mg/dL 1.6 - 2.8 mg/dL [facility] MRSA SCREENOrdered By: Shari Ceja on 02-17-2023 Interpretation and review of laboratory results Normal [facility] MRSA isol Org specific cx Ql (Nose) No methicillin resistant Staphylococcus aureus isolated. No methicillin resistant Staphylococcus aureus isolated. [facility] Room 21 [employer] No Panel Informationon 02-17 Interpretation and review of laboratory results Normal [facility] PHOSPHORUSon 02-17-2023 Phosphate [Mass/Vol] 2.6 mg/dL Normal 2.3-4.2 [facility] Comment on above: Performed By: #### C #### [facility] [address] [place], [address] Phosphate [Mass/Vol] 2.6 mg/dL 2.3 - 4.2 mg/dL [facility] Progress Noteson 02-17-2023 Loan Review Manager Authentication Interface Message Text -------- GENERAL INFORMATION [...] rib 9-10 fracture was seen at [facility].The patient had 5 packs of RBCs, 3 packs of FFP, 1 platelet, TXA and Vit K from when he arrived to [facility] and in transit. Patient takes coumadin. [...] Echo pending Respiratory: Hx of COPD -respiratory rn icu protocol -enc (more content not included)... Normal [facility] XR CHEST AP OR PA 1 [...] is also seen. MACRO: None Normal [facility] ABO RH TYPEon 02-16-2023 ABO and Rh group Nom (Bld) Blood group O Rh(D) positive Normal [facility] Comment on above: Performed By: #### 8 [id number] #### NURSING GLUCOSE PROGRAM [address] [place] [address], [address] BASIC METABOLIC PANELon 12- Anion gap [Moles/Vol] 14 mmol/L Normal 10-20 [facility] Comment on above: Performed By: #### C BC #### S PATHOLOGY LABORATORY [address] [place] [address], Calcium [Mass/Vol] 8.3 mg/dL Low 8.6-10.3 [facility] Comment on above: Result Comment: Note updated reference ranges. Performed By: #### C BC #### [facility] PATH[facility]OR[facility] [address] [place] [address], Chloride [Moles/Vol] 109 mmol/L High 98-107 [facility] Comment on above: Result Comment: Note updated reference ranges. Performed By: #### C BC #### S PATHOLOGY LABORATORY [address] [place] [address], CO2 [Moles/Vol] 20 mmol/L Low 21-31 [facility] Comment on above: Result Comment: Note updated reference ranges. Performed By: #### C BC #### [facility] [address] [place] [address], Creatinine [Mass/Vol] 1.38 mg/dL High 0.70-1.30 [facility] Comment on above: Result Comment: Note updated reference ranges. Performed By: #### C BC #### [facility] [address] [place] [address], ESTIMATED GFR (CKD-EPI) 54 mL/min/1.73sqm Low >=60 [...] Inclusion of Race in Diagnosing Kidney Disease. [place] Journal of Kidney Diseases 202;79(2):268-88.e1. 2. N Engl J Med 1 Vol. 385 Issue 19 Pages 6945-4314 Performed By: #### C BC #### [facility] [address], [place], Glucose [Mass/Vol] 171 mg/dL High 74-109 [facility] Comment on above: Performed By: #### C BC #### [facility] [address], [place], Potassium [Moles/Vol] 4.5 mmol/L Normal 3.5-5.0 [facility] Comment on above: Result Comment: Note updated reference ranges. Note updated reference ranges. Performed By: #### C BC #### [facility] [address], [place], Sodium [Moles/Vol] 138 mmol/L Normal 136-145 [facility] Comment on above: Result Comment: Note updated reference ranges. Performed By: #### C BC #### [facility] [address], [place], Urea nitrogen [Mass/Vol] 38 mg/dL High 7-25 [facility] Comment on above: Result Comment: Note updated reference ranges. Performed By: #### C BC #### [facility] [address], [place], Anion gap [Moles/Vol] 13 mmol/L Normal 10-20 [facility] Comment on above: Performed By: #### C BC #### [facility] [address], [place], Calcium [Mass/Vol] 9.8 mg/dL Normal 8.6-10.3 [facility] Comment on above: Result Comment: Note updated reference ranges. Performed By: #### C BC #### [facility] [address], [place], Chloride [Moles/Vol] 111 mmol/L High 98-107 [facility] Comment on above: Result Comment: Note updated reference ranges. Performed By: #### C BC #### [facility] [address], [place], CO2 [Moles/Vol] 25 mmol/L Normal 21-31 [facility] Comment on above: Result Comment: Note updated reference ranges. Performed By: #### C BC #### [facility] [address], [place], Creatinine [Mass/Vol] 1.12 mg/dL Normal 0.70-1.30 [facility] Comment on above: Result Comment: Note updated reference ranges. Performed By: #### C BC #### S PATHOLOGY LABORATORY [address], [place], ESTIMATED GFR (CKD-EPI) 69 mL/min/1.73sqm Normal [...] Inclusion of Race in Diagnosing Kidney Disease. [place] Journal of Kidney Diseases 2021;79(2):268-88.e1. 2. N Engl J Med 1 Vol. 385 Issue 19 Pages 0756-4207 Performed By: #### C BC #### S PATHOLOGY LABORATORY [address], [place], Glucose [Mass/Vol] 130 mg/dL High 74-109 [facility] Comment on above: Performed By: #### C BC #### S PATHOLOGY LABORATORY [address], [place], Potassium [Moles/Vol] 5.3 mmol/L High 3.5-5.0 [facility] Comment on above: Result Comment: Note updated reference ranges. Note updated reference ranges. Performed By: #### C BC #### [facility] [address], [place], Sodium [Moles/Vol] 144 mmol/L Normal 136-145 [facility] Comment on above: Result Comment: Note updated reference ranges. Performed By: #### C BC #### [facility] [address], [place], Urea nitrogen [Mass/Vol] 27 mg/dL High 7-25 [facility] Comment on above: Result Comment: Note updated reference ranges. Performed By: #### C BC #### [facility] [address] [place], [address] Anion gap [Moles/Vol] 12 mmol/L Normal 10-20 [facility] Comment on above: Performed By: #### 8 2948 #### NURSING GLUCOSE PROGRAM [address] [place], [address] Calcium [Mass/Vol] 10.2 mg/dL Normal 8.6-10.3 [facility] Comment on above: Result Comment: Note updated reference ranges. Performed By: #### 8 2948 #### NURSING GLUCOSE PROGRAM [address] [place], [address] Chloride [Moles/Vol] 108 mmol/L High 98-107 [facility] Comment on above: Result Comment: Note updated reference ranges. Performed By: #### 8 2948 #### NURSING GLUCOSE PROGRAM [address] [place], [address] CO2 [Moles/Vol] 28 mmol/L Normal 21-31 [facility] Comment on above: Result Comment: Note updated reference ranges. Performed By: #### 8 2948 #### NURSING GLUCOSE PROGRAM [address] [place], [address] Creatinine [Mass/Vol] 1.02 mg/dL Normal 0.70-1.30 [facility] Comment on above: Result Comment: Note updated reference ranges. Performed By: #### 8 2948 #### NURSING GLUCOSE PROGRAM [address] [place], [address] ESTIMATED GFR (CKD-EPI) 77 mL/min/1.73sqm Normal >=60 [facility] Comment on above: Result Comment: 2020 [...] Inclusion of Race in Diagnosing Kidney Disease. [place] Journal of Kidney Diseases 2021;79(2):268-88.e1. 2. N Engl J Med 2021 Vol. 385 Issue 19 Pages 3799-8979 Performed By: #### 8 2948 #### NURSING GLUCOSE PROGRAM [address] [place], [address] Glucose [Mass/Vol] 125 mg/dL High 74-109 [facility] Comment on above: Performed By: #### 8 2948 #### NURSING GLUCOSE PROGRAM [address] [place], [address] Potassium [Moles/Vol] 4.5 mmol/L Normal 3.5-5.0 [facility] Comment on above: Result Comment: Note updated reference ranges. Note updated reference ranges. Performed By: #### 8 2948 #### NURSING GLUCOSE PROGRAM [address] [place], [address] Sodium [Moles/Vol] 143 mmol/L Normal 136-145 [facility] Comment on above: Result Comment: Note updated reference ranges. Performed By: #### 8 2948 #### NURSING GLUCOSE PROGRAM [address] [place], [address] Urea nitrogen [Mass/Vol] 25 mg/dL Normal 7-25 [facility] Comment on above: Result Comment: Note updated reference ranges. Performed By: #### 8 2948 #### NURSING GLUCOSE PROGRAM [address] [place], [address] BLOOD CULTUREon 02-16-2023 Bacteria identified Cx Nom (Bld) C BLOOD: No Growth Normal [facility] Comment on above: Performed By: #### M G, CH8, PHOS #### [facility] [address] [place], [address] BLOOD GAS, ARTERIALon 2022 Base excess Calc [...] [Moles/Vol] 25 mmol/L 21 - 28 mmol/L [facility] Interpretation and review of laboratory results Abnormal [facility] Oxygen (BldV) [Partial pressure] 36 mm[Hg] Low [facility] Oxygen gas flow Oxygen delivery system Nasal [place]ula [facility] Oxygen saturation in Venous blood 67.1 % Low 70.0 - 80.0 % [facility] pH (BldV) 7.367 [pH] 7.320 - 7.430 [facility] Basic metabolic 2000 panelon 02-16-2023 Anion gap [...] 171 mg/dL High 74 - 109 mg/dL [facility] Interpretation and review of laboratory results [...] 130 mg/dL High 74 - 109 mg/[facility] Potassium [Moles/Vol] 5.3 mmol/L High 3.5 - 5.0 mmol/L [facility] Sodium [Moles/Vol] 144 mmol/L 136 - 145 mmol/L [facility] Urea nitrogen [Mass/Vol] 27 mg/dL High 7 - 25 mg/dL [facility] Blood Bank Slipon 02-16-2023 Blood Bank Slip [id number] [phone] [id number]# 1.00TIFF Normal [facility] CALCIUM, IONIZEDon CR ICA 1.34 mmol/L High 1.15-1.33 [facility] Comment on above: Result Comment: This test was developed, and its performance characteristics determined by the Department of Pathology of [facility]. It has not been cleared or approved by the FDA. This test is used for clinical purposes only. Performed By: #### C R ICA ####[facility] PATH[facility] [id number] [place], [place], Calcium.ionized (Bld) [Moles/Vol] 1.34 mmol/L High 1.15 - 1.33 mmol/L [facility] Interpretation and review of laboratory results Abnormal [facility] CR ICA 1.24 mmol/L Normal 1.15-1.33 [facility] Comment on above: Result Comment: This test was developed, and its performance characteristics determined by the Department of Pathology of [facility]. It has not been cleared or approved by the FDA. This test is used for clinical purposes only. Performed By: #### C BC #### [facility] [address], [place], CALCIUM, IONIZEDOrdered By: Vivian Pena on 02-16-2023 Calcium.ionized (Bld) [Moles/Vol] 1.24 mmol/L 1.15 - 1.33 mmol/L [facility] Interpretation and review of laboratory results Normal [facility] CBC WITH DIFFERENTIALon 01-25 Basophils (Bld) [#/Vol] 0.01 10*3/uL Normal 0.00-0.20 [facility] Comment on above: Performed By: #### ASIA Freitas, PHOS #### [facility] [address] [place] [address], Basophils/100 WBC (Bld) 0.1 % Normal <=1.9 [facility] Comment on above: Performed By: #### ASIA Freitas, PHOS #### [facility] [address] [place] [address], Eosinophils (Bld) [#/Vol] 0.00 10*3/uL Normal 0.00-0.70 [facility] Comment on above: Performed By: #### ASIA Freitas, PHOS #### S PATHOLOGY LABORATORY [address] [place] [address], Eosinophils/100 WBC (Bld) 0.0 % Low 0.1-4.0 [facility] Comment on above: Performed By: #### ASIA Freitas, PHOS #### S PATHOLOGY LABORATORY [address] [place] [address], Erythrocyte distribution width (RBC) [Ratio] 14.9 % High 11.5-14.5 [facility] Comment on above: Performed By: #### ASIA Freitas, PHOS #### [facility] [address] [place] [address], Hematocrit (Bld) [Volume fraction] 38.9 % Low 41.0-53.0 [facility] Comment on above: Performed By: #### ASIA Freitas, PHOS #### [facility] [address] [place] [address], Hemoglobin (Bld) [Mass/Vol] 12.9 g/dL Low 13.9-16.3 [facility] Comment on above: Performed By: #### ASIA Freitas, PHOS #### [facility] [address] [place] [address], Lymphocytes (Bld) [#/Vol] 0.42 10*3/uL Low 1.00-4.80 [facility] Comment on above: Performed By: #### ASIA Freitas, PHOS #### [facility] [address] [place] [address], Lymphocytes/100 WBC (Bld) 3.3 % Low 24.0-44.0 [facility] Comment on above: Performed By: #### ASIA Freitas, PHOS #### S PATHOLOGY LABORATORY [address] [place] [address], MCH (RBC) [Entitic mass] 29.6 pg Normal 26.0-34.0 [facility] Comment on above: Performed By: #### ASIA Freitas, PHOS #### S PATHOLOGY LABORATORY [address] [place] [address], MCHC (RBC) [Mass/Vol] 33.2 g/dL Normal 32.0-35.9 [facility] Comment on above: Performed By: #### ASIA Freitas, PHOS #### S PATHOLOGY LABORATORY [address] [place] [address], MCV (RBC) [Entitic vol] 89 fL Normal 80-100 [facility] Comment on above: Performed By: #### ASIA Freitas, PHOS #### S PATHOLOGY LABORATORY [address] [place] [address], MONOCYTE DISTRIBUTION WIDTH 20 Normal <=20 [facility] Comment on above: Performed By: #### ASIA Freitas, PHOS #### S PATHOLOGY LABORATORY [address], [place], Monocytes (Bld) [#/Vol] 1.18 10*3/uL High 0.20-1.00 [facility] Comment on above: Performed By: #### ASIA Freitas, PHOS #### [facility] [address] [place] [address], Monocytes/100 WBC (Bld) 9.1 % Normal 2.0-11.0 [facility] Comment on above: Performed By: #### ASIA Freitas, PHOS #### S PATHOLOGY LABORATORY [address], [place], Neutrophils (Bld) [#/Vol] 11.30 10*3/uL High 1.50-8.00 [facility] Comment on above: Performed By: #### ASIA Freitas, PHOS #### [facility] [address], [place], Neutrophils/100 WBC (Bld) 87.5 % High 31.0-76.0 [facility] Comment on above: Performed By: ###ASIA Alas, PHOS #### [facility] [address] [place] [address], Platelet mean volume (Bld) [Entitic vol] 7.8 fL Normal 7.5-11.2 [facility] Comment on above: Performed By: ###ASIA Alas, PHOS #### S PATHOLOGY LABORATORY [address], [place], Platelets (Bld) [#/Vol] 149 10*3/uL Low 150-400 [facility] Comment on above: Performed By: #### ASIA Freitas, PHOS #### S PATHOLOGY LABORATORY [address], [place], RBC (Bld) [#/Vol] 4.36 10*6/uL Low 4.50-5.90 [facility] Comment on above: Performed By: #### ASIA Freitas, PHOS #### S PATHOLOGY LABORATORY [address], [place], WBC (Bld) [#/Vol] 12.9 10*3/uL High 4.5-11.5 [facility] Comment on above: Performed By: ###ASIA Alas, PHOS #### [facility] [address], [place], CBC panel Auto (Bld)Ordered By: Wesley [...] RBC (Bld) [#/Vol] 4.22 10*6/uL Low [facility] WBC (Bld) [#/Vol] 11.1 10*3/uL 4.5 - 11.5 K/uL [facility] Erythrocyte distribution width (RBC) [Ratio] 14.8 % High 11.5 - 14.5 % [facility] Hematocrit (Bld) [Volume fraction] 39.4 % Low 41.0 - 53.0 % [facility] Hemoglobin (Bld) [Mass/Vol] 13.3 g/dL Low 13.9 - 16.3 g/dL [facility] Interpretation and review of laboratory results Abnormal [facility] MCH (RBC) [Entitic mass] 30.2 pg 26.0 - 34.0 pg [facility] MCHC (RBC) [Mass/Vol] 33.7 g/dL 32.0 - 35.9 g/dL [facility] MCV (RBC) [Entitic vol] 90 fL 80 - 100 fL [facility] Platelet mean volume (Bld) [Entitic vol] 8.7 fL 7.5 - 11.2 fL [facility] Platelets (Bld) [#/Vol] 163 10*3/uL 150 - 400 K/uL [facility] RBC (Bld) [#/Vol] 4.40 10*6/uL Low [facility] WBC (Bld) [#/Vol] 16.2 10*3/uL High 4.5 - 11.5 K/uL [facility] COMPLETE BLOOD COUNTon 02-16 Erythrocyte distribution width (RBC) [Ratio] 14.8 % High 11.5-14.5 [facility] Comment on above: Performed By: #### C BC ####S PATHOLOGY [id number] [place], [place], Hematocrit (Bld) [Volume fraction] 30.0 % Low 41.0-53.0 [facility] Comment on above: Performed By: #### C BC ####[facility] [id number] [place], Hemoglobin (Bld) [Mass/Vol] 10.2 g/dL Low 13.9-16.3 [facility] Comment on above: Performed By: #### C BC ####[facility] PATHOLOG[facility] [id number] [place], MCH (RBC) [Entitic mass] 30.5 pg Normal 26.0-34.0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 [facility] 250 DO Work Phone: Tobacco use status CP b) No [facility] 250 DO Work Phone: Tobacco Screening. Yes [facility] 250 DO Work Phone: Operative [...] rhythm. Crispin Porter M.D. ca Dictated: 08/02/2022 [id number] Transcribed: 08/03/2022 Normal [facility] Comment on above: Result Comment: Elec tronically Signed By: German ESCOBEDO, Christopher Bansal\.carol\Date and Time Signed: 08/19/22 13:42 EDT POCT PT/INRon 08-16-2022 POCT INR 3.1 High .7-1.2 [facility] Comment on above: Performed By: #### 2 [id number] #### [facility] [address] [place] [address] POCT PT 32.7 second(s) High 8.0-15.0 [facility] Comment on above: Performed By: #### 2 [id number] #### [facility] [address] [place] [address] Falls Screening (Age 18+)on 08-13-2022 Fall risk assessment a) No falls within the last year [facility] 250 DO Work Phone: Consent for Procedure/Surger yon 08-05-2022 Consent for Procedure/Surgery [id number] .00CD:127 Normal [facility] Monitor Recordon 08-05-2022 Monitor Record [id number] .00CD:127 Normal [facility] Cardiovascular Reporton Cardiovascular Report [id number] 1.00CD:127 Normal [facility] Consent for Treatmenton Consent for Treatment [id number] .00CD:127 Normal [facility] Consultation Noteon 08-03-19 Consultation Note [...] History of Adverse/Allergic Reaction to Sedation: None. [facility] Comment on above: Result Comment: Elec tronically Signed By: Christopher Porter MD\.br\Date and Time Signed: 08/02/22 12:50 EDT Inpatient Clinical Summaryon 08-02-2022 Inpatient Clinical Summary [address] [address] Clinical Summary Person Information: Name: FREDRICK STROUD Age: 71 Years : 1950 Sex: Male PCP: KARINA MELGAR MD Marital Status: Phone: [phone] Race: White Ethnicity: Non- or Language: Tunisian Visit Id: Visit Reason: I48.19 Speciality: Acuity: Enc Type: Ambulatory/Same Day Surgery Med Service: Cardiovascular Arrival: 08/02/2022 11:37:14 Discharge: Dispo Type: Address: [address] [place], [place] [id number] Provider Notes: Diagnosis: Atrial fibrillation Problems Active [...] This Visit Final Med List: acetaminophen-hydroco done ([place] 325 mg-5 mg oral tablet) 1 Tablets [...] With: Address: When: Christopher Porter [facility], [facility] [address], [address] [place] [address] Business (1) Comments: Call for followup appointment Type Location Start Finish State Anticoagulation Follow Up 15 (FT) FT.CARDIO 08/16/2022 11:15 AM 08/16/2022 11:30 AM Confirmed Patient Education Information: CV - Cardioversion (CUSTOM) Normal [facility] Inpatient Patient Summaryon 08-02-2022 Inpatient Patient Summary [address] [address] Patient Discharge Instructions PERSON INFORMATION Name: FREDRICK [...] With: Address: When: Christopher Porter [facility], [facility] [address], [address] [place] [id number] Business (1) Comments: Call for followup appointment [...] with No Changes Other Medications acetaminophen-hydroco done ([place] 325 mg-5 mg oral tablet) 1 Tablets [...] WITH YOU AT ALL TIMES. acetaminophen-hydroco done ([place] 325 mg-5 mg oral tablet) 1 Tablets [...] Pharmacy Information: Comment: PATIENT EDUCATION INFORMATION Instructions: [place], [place] CARDIOVERSION AFTER THE PROCEDURE: DIET: ? [...] the event (more content not included)... Normal [facility] Laboratory - Chemistry and C hemistry - challengeon 08-02-2022 CO2 [Moles/Vol] 27 mmol/L Normal 21-31 [facility] y 250 DO Work Phone: Laboratory - Coagulationon 0 08-02-2022 INR Coag (Bld) [Relative time] 3.5 {INR} [facility] y 250 DO Work Phone: Comment on above: INR results are spec ifically intended to assess patients stabilized on long-term Anticoagulation therapy suggested INR?s ?Less Intensive Anticoagulation? 2.0 ? 3.0Conventional Range 3.0 ? 4.5 Lyteson 08-02-2022 Anion gap [Moles/Vol] 12 mmol/L Normal 6-16 [facility] Comment on above: Order Comment: STAT on admission. Performed By: #### 2 [id number] #### [facility] [address] [place] [address] Chloride [Moles/Vol] 104 mmol/L Normal 101-111 [facility] Comment on above: Order Comment: STAT on admission. Performed By: #### 2 [id number] #### [facility] [address] [place] [address] CO2 [Moles/Vol] 27 mmol/L Normal 21-31 [facility] Comment on above: Order Comment: STAT on admission. Performed By: #### 2 [id number] #### [facility] [address] [place] [address] Potassium [Moles/Vol] 4.5 mmol/L Normal 3.5-5.3 [facility] Comment on above: Order Comment: STAT on admission. Performed By: #### 2 [id number] #### [facility] [address] [place] [address] Sodium [Moles/Vol] 138 mmol/L Normal 135-145 [facility] Comment on above: Order Comment: STAT on admission. Performed By: #### 2 [id number] #### [facility] [address] [place] [address] No Panel Informationon 08-02 12 {mEq/L} Normal 6-16 [facility] 250 DO Work Phone: 104 mmol/L Normal 101-111 [facility] 250 DO Work Phone: 4.5 mmol/L Normal 3.5-5.3 [facility] 250 DO Work Phone: 138 mmol/L Normal 135-145 [facility] 250 DO Work Phone: 41.2 {second(s)} above high threshold 9.4-12.5 [facility] 250 DO Work Phone: Comment [...] the same coagulation reagent and instrumentation as [facility]. Currently there are no coagulation studies available worldwide for children to 14 days, and no normal ranges. PTon 08-02-2022 INR Coag (PPP) [Relative time] 3.5 {INR} Invalid Interpretation Code [facility] Comment on above: Order Comment: On ad mission if patient is on Coumadin therapy. Result Comment: INR results are specifically intended to assess patients stabilized on long-term Anticoagulation therapy suggested INR?s ?Less Intensive Anticoagulation? 2.0 ? 3.0 Conventional Range 3.0 ? 4.5 Performed By: #### 2 [id number] #### [facility] [address] [place] [address] PT Coag (PPP) [Time] 41.2 second(s) High 9.4-12.5 [facility] Comment on above: Order Comment: On ad [...] the same coagulation reagent and instrumentation as [facility]. Currently there are no coagulation studies available worldwide for children to 14 days, and no normal ranges. Performed By: #### 2 [id number] #### [facility] [address] [place] [address] Patient Education - Texton 0 08-02-2022 Patient Education - Text [place], [place] CARDIOVERSION AFTER THE PROCEDURE: DIET: ? [...] event you are unable to reach your hostess cashier, please call [facility] at [phone] and the boarding kennel or cattery operator will assist you in contacting your [...] or toes turn cold or blue. Normal [facility] Progress Note-Physicianon Progress Note-Physician Patient: FREDRICK STROUD Age: 71 years Sex: Male : 1950 Associated Diagnoses: None Author: German ESCOBEDO, Christopher Bansal Impression and Plan DCC WITH PROPAFOL 70 MG AND 200 J SYNC ONCE TO NSR SAT>95 % NO NEURO CHANGES PLAN HOME ON SAME RX Normal [facility] Comment on above: Result Comment: Elec tronically Signed By: German ESCOBEDO, Christopher Bansal\.br\Date and Time Signed: 08/02/22 13:03 EDT POCT PT/INRon 07-26-2022 POCT INR 2.7 High .7-1.2 [facility] Comment on above: Performed By: #### 2 [id number] #### [facility] [address] [place] [address] POCT PT 29.2 second(s) High 8.0-15.0 [facility] Comment on above: Performed By: #### 2 [id number] #### [facility] [address] [place] [address] POCT PT/INRon 07-19-2022 POCT INR 3.2 High .7-1.2 [facility] Comment on above: Performed By: #### 2 [id number] ####[facility] [address] [facility] [place] [address] POCT PT 34.5 second(s) High 8.0-15.0 [facility] Comment on above: Performed By: #### 2 [id number] ####[facility] [address] [place] [address] Physician Orderon 07-16-2022 Physician Order [id number] .00CD:127 Normal [facility] POCT PT/INRon 07-12-2022 POCT INR 4.3 High .7-1.2 [facility] Comment on above: Performed By: #### 1 [id number], [id number], [id number], [id number] #### [facility] [address] [place] [address] POCT PT 45.1 second(s) High 8.0-15.0 [facility] Comment on above: Performed By: #### 1 [id number], [id number], [id number], [id number] #### [facility] [address] [place] [address] Falls Screening (Age 18+)on 07-05-2022 Fall risk assessment a) No falls within the last year [facility] 600 DO Work Phone: Tobacco use status [facility] b) No [facility] 600 DO Work Phone: Office Visit (Cardiology)on [...] 2 MG Oral TabletTake as directed by [facility] coumadin clinic Zinc 50 MG [place] [...] negative for complaint. Vitals Vital Signs Recorded: [id number] 09:08AM Heart Rate72, Apical Smvqdwbn597, LUE, Sitting Ecifweyju18, LUE, Sitting Height5 ft 6 in Ygtolr577 lb BMI Qfbgtdluci29.54 kg/m2 BSA Calculated2.18 Tobacco Useb) No F (more content not included)... Normal [facility] POCT PT/INRon 06-26-2022 POCT INR See Comment Invalid Interpretation Code .7-1.2 [facility] Comment on above: Result Comment: Test ing error, please disregard previously charted results Performed By: #### 1 [id number], [id number], [id number], [id number] #### [facility] [address] [place] [address] POCT PT See Comment Invalid Interpretation Code 8.0-15.0 [facility] Comment on above: Result Comment: Test ing error, please disregard previously charted results Performed By: #### 1 [id number], [id number], [id number], [id number] #### [facility] [address] [place] [address] ECG 12 lead ECGon 06-11-2022 ECG 12 lead ECG [facility] [place] [address] [place], [place] [id number] Electrocardiograph Report Signed Patient: Fredrick Stroud MR#: [id number] : 1950 Acct:[id number] Age/Sex: 71 / M ADM Date: 06/11/22 Loc: Room: Type: [facility] Attending Dr: Christopher Porter MD Ordering Provider: [...] Wisam Torre MD 0 06/11/22 [address] [facility] ECG post procedureon 023 ECG post procedure [facility] [place] [address] [place] [address] Electrocardiograph Report Signed Patient: Fredrick Stroud MR#: [id number] : 1950 Acct:[id number] Age/Sex: 71 / M ADM Date: 06/11/22 Loc: Room: Type: [facility] Attending Dr: Christopher Porter MD Ordering Provider: [...] Wisam Torre MD 0 06/11/[address] [facility] Electrolyteson 06-11-2022 Anion gap [Moles/Vol] 12.3 mmol/L Normal 6.0-15.0 [facility] Comment on above: Result Comment: PERF ORMED BY: [facility] [address] [place] [id number] PATHOLOGIST OUTSIDE [employer] SALES REPRESENTATIVE EYAD HOWARD M.D. Performed By: #### C BC, CMP, HS TROP, BNP #### [facility] [address] [place] [address] [place] Chloride [Moles/Vol] 103 mmol/L Normal 98-107 [facility] Comment on above: Performed By: #### C BC, CMP, HS TROP, BNP #### [facility] [address] CO2 [Moles/Vol] 28.2 mmol/L Normal 21.0-31.0 [facility] Comment on above: Performed By: #### C BC, CMP, HS TROP, BNP #### [facility] [address] [place] [address] [place] Potassium [Moles/Vol] 4.5 mmol/L Normal 3.5-5.1 [facility] Comment on above: Performed By: #### C BC, CMP, HS TROP, BNP #### [facility] [address] [place] [address] [place] Sodium [Moles/Vol] 139 mmol/L Normal 136-145 [facility] Comment on above: Performed By: #### C BC, CMP, HS TROP, BNP #### [facility] [address] [place] [id number] [place] No Panel Informationon 06-11 12.3\S\12.3 Normal 6.0-15.0 [facility] 250 DO Work Phone: Comment on above: PERFORMED BY:[facility] [place], [place] [phone] MEDICAL DIRECTOREYAD HOWARD M.D. 28.2\S\28.2 Normal 21.0-31.0 -[facility] 250 DO Work Phone: [phone] 103\S\103 Normal 98-107 [facility] 250 DO Work Phone: [phone] 4.5\S\4.5 Normal 3.5-5.1 [facility] 250 DO Work Phone: [phone] 139\S\139 Normal 136-145 [facility] 250 DO Work Phone: [phone] POCT PT/INRon 06-07-2022 POCT INR 2.7 High .7-1.2 [facility] Comment on above: Performed By: #### 2 [id number] #### [facility] Laboratory [address] [place] [address] POCT PT 28.8 second(s) High 8.0-15.0 [facility] Comment on above: Performed By: #### 2 [id number] #### [facility] [address] [place] [address] POCT PT/INRon 05-28-2022 POCT INR 2.8 High .7-1.2 [facility] Comment on above: Performed By: #### 1 [id number], [id number], [id number], [id number] #### [facility] [address] [place] [address] POCT PT 30.6 second(s) High 8.0-15.0 [facility] Comment on above: Performed By: #### 1 [id number], [id number], [id number], [id number] #### [facility] [address] [place] [address] POCT INR Error Invalid Interpretation Code .7-1.2 [facility] Comment on above: Performed By: #### 2 [id number] #### [facility] [address] [place] [address] POCT PT Strip Error Invalid Interpretation Code 8.0-15.0 [facility] Comment on above: Performed By: #### 2 [id number] #### [facility] [address] [place] [address] POCT PT/INRon 05-21-2022 POCT INR 3.1 High .7-1.2 [facility] Comment on above: Performed By: #### 1 [id number], [id number], [id number], [id number] #### [facility] [address] [place] [address] POCT PT 33.1 second(s) High 8.0-15.0 [facility] Comment on above: Performed By: #### 1 [id number], [id number], [id number], [id number] #### [facility] [address] [place] [address] POCT PT/INRon 05-14-2022 POCT INR 3.2 High .7-1.2 [facility] Comment on above: Performed By: #### 2 [id number] ####[facility] [address] [place] [address] POCT PT 34.5 second(s) High 8.0-15.0 [facility] Comment on above: Performed By: #### 2 [id number] ####[facility] [address] [place] [address] POCT INR Error Invalid Interpretation Code .7-1.2 [facility] Comment on above: Performed By: #### 2 [id number] #### [facility] [address] [place] [address] POCT PT Strip Error Invalid Interpretation Code 8.0-15.0 [facility] Comment on above: Performed By: #### 2 [id number] #### [facility] [address] [place] [address] Falls Screening (Age 18+)on 05-02-2022 Fall risk assessment a) No falls within the last year -[facility] 600 DO Work Phone: Progress Note-Physicianon [...] Inhalation, As Directed, 1 EA, Refill(s) 0 [place] 325 mg-5 mg oral tablet: 1 tab(s), [...] spacer adult 1 EA, Inhalation, As Directed [place] 325 mg-5 mg oral tablet 1 tab(s), PRN, Oral, q6hr Ventolin HFA 90 mcg/inh inhalation aerosol with adapter 2 puff(s), PRN, Inhalation, q6hr Coumadin , No qualifying data available Problem list: All Problems HTN (hypertension) / SNOMED CT 9028351398 / Confirmed Class 3 severe obesity with body mass index (BMI) of 40.0 to 44.9 in adult / SNOMED CT 0372821883 / Confirmed Resolved: Cancer of prostate / SNOMED CT 8975708906, Active Problems (2) Class 3 severe obesity [...] mod = 1-2, high = 3-4): Normal [facility] Comment [...] therapy and has been managed by the [facility] Coumadin clinic. He says he is therapeutic [...] Recorded: 29Apr2022 11:48AM Heart Rate60, R Radial Pospcprc436 Jbzoujiux67 Height5 ft 6 in Ncffsy909 lb 6 oz BMI Dtolglqchu64.09 kg/m2 BSA Calculated2.19 Tobacco Useb) No Falls Screening (Age 18+)a) No falls within the last year Physical Exam Constitutional: alert and in no acute distress. Eyes: no erythema, swelling or discharge from the eye . Neck: neck i (more content not included)... Normal [facility] Tobacco Screening.on 023 Fall risk assessment a) No falls within the last year [facility] 600 DO Work Phone: Tobacco use status [facility] b) No [facility] 600 DO Work Phone: POCT PT/INRon 04-19-2022 POCT INR 1.7 High .7-1.2 [facility] Comment on above: Performed By: #### 1 [id number], [id number], [id number], [id number] #### [facility] Laboratory [address] [place] [address] POCT PT 19.1 second(s) High 8.0-15.0 [facility] Comment on above: Performed By: #### 1 [id number], [id number], [id number], [id number] #### [facility] [address] [place] [address] [place] [address] Coding Summary.on 04-08-2022 Coding Summary. CD:[id number]:[id number] G h0bWw+PGhlYWQ+SQ2KHWR vG08wzFXkbI6VZ5pPDD0M VBGIHEBDKE6UPR1fnIU6G DiaH9NvaxJf IasxzPWmAR55QIv7SHB9r HgwWWzyzP8epJOtV2e1Gk YgRN16rT71UJqvJAEeUyA 3LjZpbjsgbWFy X9amLaPomHHqQrg+PHRhY mxlIHdpZHRoPScxMDAlJy UbjKgbMO6uKr3lHTWzHOK vbGxhcHNlOiBj g8kqOVEtUNmqPM2xrSbyR 6BlrIP6TJFha1l9Qt92yW I+YWTqGQR6oUbnAXbze03 5MeAiz6uzWGW6 vOIbGPxjMDB7P82ot4A1Y LFxJKFpZWD1rJB9yE9tnD mphhkcP3NmwVHiNpO3DIL 6bXCzzT9snLsv mhjhnG8iBtj+A27DDV4GV BCWML2VJnv5A0KqKypkdJ I+HD74TSDyXY48cDQccWV xh3uerMa3LpPy EYTrKPL3rStjCYywv8OtP WNjB80qjLKni3I0PXHcsH tamLUbTxGjxCO7oQ0oUXa xrdunc9edjovx Kpzzw7yleh52jP92D54dI IjiRELsZEP0DVJgTUErsW ggqi2ewQ3tVy2+ENgjq8z lv7sowMo2VyYe QKHnptMkkDxnZSZ0v6KjY y35O8TggRlmf2YoNzh6jf 36xFHye3J1jTX8SJqfZGM vmP8lGPrbVgR9 IBFeBtTzvX92eAYtDYalM t1mwBehbNocIF7iFIZjio ynYWNceG5zAPXdbAGouNu qFP5jYEZkfsrw w099ChXzIZN5DSUlsIYeC 3ZgeH1kUlUyDVSeMSTcL5 HxoNKcOFxnI402TCdgKzD 3LSRqvnCcJ5Nw SUZooKnhKjN0e1Q5Tq0Ed 7SszwtcVBS5PQvgUKLfCr BoQjHvNzL5Y1HtOva9VHF rjFmtHM6kY1Pr FBRxboikoxmmaTX3VIWvN VSavA60dKNbQUnsSt1pc0 U3g472DUCaJDWisD18Uj5 udDogMTBwdCBU wL4hkzhav4vhykedNjKiS WGqGBq2PQf2QTPdfEnfSd CdTWV8MuM0PPV0pJJsjB8 sbHrfvewqgP2k Oyc+C96zxQ9rRYK1JTN0l vizUFQnacWlEE60XQ05V9 RyPjwvdGFibGU+PGRpdiB ekUxgSA3uBnUb y0pgu2YuNOdzA3AvNJCsQ XaaCxb2WJRsAEL1tUN1sW 1sFTPkLWnke9G3yAJ6Q2Q aqbEyxu8wo8hz UUWkNBgeU22ovFZja8J4Q UIjgZM4LRXzzNfvFwTftB 93Oyc+MJIujCstp7QuNiw qj6vdl5rnaAm7 VjStPELgynJtvRhyREV2j 3ZaRg52W41nXImiJLPyDX HpQDNbKQWphJiavi1yrY4 wIi8+PGNvbCB3 eSF7lX6pQUSbHoZ1CGnsV 729JvLqiUDnGjgsp4rqn8 vvrXl6TiVvBSAljxDafCe tREI3g4GmQj45 T97mQBesTNNpMSBtHTFcC JZfvLsxgh8xoP9wXl0+PC 2xe2psyw54jZ87bGA+PHR vDWN9wXhqXOje EEKhlM7yJJpfKdL1EFIdT dMwsE57lGRzKKguYc0erO uquHpaMT9iIAYzsllll74 2GdKnd3zvNOQj sLAsDKtlVQL5E69ya0T9J LXrTVLqIUB5iBJ0dY1vwY lnbjogbGVmdDsgdmVydGl eEZmwNFdiU086 IHRvcDsnPlBhdGllbnQgT sQzDMe8N0RsCpv6FBHdbY saWB5hjRYhLTqtNh1afEk mvVizER1fXOIo ovvhq291NoRnc5juFLXpb JBzWLiiBDT3A40ci1J1DH YwAXVyMLN9tVF4eI6rkFw nbjogbGVmdDsg wlRbbLanTImeAUkoL360R HRvcDsnPkJpcnRoIERhdG D5LR08QY98jHXgo9Z7kHS 1D8UqNHTaqgae yykojCQ4NSCbSYNbsB97I b2jyLttAj1wYNXrFYR4VG WsvFYtH7CcbS7kCyHlNXK zRMWhI1HwnZCf MNyzZ008JUslOfS4RPYnk fVeL1EeZEIwfKukZpE4o5 N2Zq1UV7N3RC97QA24fLP gn6D1sSZ6W9Fg TTQolwxnmlnqzNK2IEImN VQjpR18Jn2uhJsiCy5eOK UfNNZ0FEPyrCZbR3MezO4 yOiAjMDAwMDAw B8PnlTSbGBxxL802ZTbqL aT0JRFaxaFrC6SiMGYhyB aoYqF5a0C5Du1TYLi3UO7 6DE80iJDrc3K3 zIW2N6AwGZMvkrrgynomc SG9PBHfNKVruG41Vf1pdH oyXf5pSZJcJCI9WXCyxDB eQ9ZraI3zFvQl FYEmGPWhA6EtoBEjHRiwW 316HJkoWzO5FIHocgKhS0 ZjDVPatDhvUjJ5c2H6Ny9 YPMWlCG42QAM8 vSC1GT57ZX39Q2ZsSeynx GFibGU+PHRhYmxlIHdpZH RoPScxMDAlJyBzdHlsZT0 kDd2sXQAwJHUz uEstdVPsFtAze0ljVJCvN PbcOI2thPwlD7UhnAO1AY Rvp2f5Qe94S76uA3FwcUB +COFazRW7mTV9 eS0fGhWxYxU8UDttL967A oSmyHTbBmqzz0oev8bmxR u0UgK1TRZfsyWafHygZSX 7a3TnZt38J91t IHdpZHRoPSIxNSUiIHZhb Dwmvs9ohB1nGz6+PGNvbC Q3dUM4vB7qBaFpGkQ6IXt kQ640KiCrsVDa Xbmre9fta2wtoYc3UdJjT APmetEinMhhPFY6x9NwNe 08W1TjuRmyy4WsNlx8nz0 0dYCtp1D8mLU5 C0AdMRJtqaxfkZRxpZqjV H5pCELrsgyzRNAxjD9uOA ZaK1x1VqVoRzQ7FWqsS7T moiE7TVRyvITd VDbqWVZ9T35yt5E5EMVbA OPjARY6aME3kR6cpRqkcf ogbGVmdDsgdmVydGljYWw vDUwnO323VERo uDxmQZYbgH7uCHPwxSUtp EubSH9mLWTkjkfiGkNYRr LTUNddDFNQGqmTPRc7G0F pXky8NPFhnDyr OU4fmCUjLLobNs7ynXndv GprTN7rCDVlgwmsMEEvwP 4vPRYyrXAlpUxdXX2mNIF yvllxf999RaOi DHH2SXVdeLUfI5KpiT3tR vZiEOZwXOWcK4OetBMhMU djX235ABmbEuA4NMVdqqG hP6WcJNSkfQav JpD0z7F2Tv9bJA5cZL8zL MN0EJ24XB26bFOpc2Q0kY M7D9FeEDOpxldpjarktQT 0TOZxCRFvoD03 zLDqPZzhSt4xr5J9q191L KQcOIMkpV41Ju8zgYzaOE UdtXGJvK1ucoltf0pfout gIzAwMDAwMDt0 BNt1EXLpjUloJyJyLSH1B pS5ZNW7fXDvxK8fuJrbyo lwyU2zFps+NzMgWWVhcnM 5X1UrKds5QHBi dRmhLZ6vqSYtZZubGi6xf WyckBkhSJ1oLMJlfrfnEC RzsN0xZZBsbQFdbPqdIK3 jXVXglkbmy594 LjPzDUY5WEVpeYNwJ8Aop J4qHcRrNQQjRPKsD1XqiX QuLDhjP652URzyQlN6PWS fpoAjE2MrRWPo lMxvUrY3n7G3Sc3CLEcnZ Y33PP59eSNvb8R2bII9W5 LjZMWlrtvbxtvnmMB1XTP fDBXtiJ25gORt GEiwGa9un2N5e792KXHoL XLscE53Ny1znNhuUXVyyC HVmC4ggcyrn2snqnurTjA mWCElOCk6NAf6 ABCsfYvoSbGfLVK3QoQ1I IH6vGXusG8awOupserouM 9wOyc+JlFhrZOpoK0uUV1 6NV39T6OuEuqu dGFibGU+PHRhYmxlIHdpZ HRoPScxMDAlJyBzdHlsZT 8wQm6gZKDgROBzbJocbXT fBwPkv1bxEREg QCbnDA8gpYydY6KyuVG2W GOlu3g8Oc69G67vC4VldA A+IIGprZJ5zRC0hD4vEjE hGlK4AEuvR637 SpJslKJxNrmub1rei0txb Lz1GrFlERSkdqRgkUnnTY N2s0RcKd09F56sOBxvFDG oPSIyMCUiIHZh mDwvdv8onR7wUu8+PGNvb BG1gQK9aS8hLlMkFwF2MM jiB733EcUzuGWcRfyyN45 yD1YgdNF+PHRy Ypy5WGEbkVnxCG1lfWJpL VqmPr1cRGW4YxXnOrIzFS tmL9FvWTMrxnsaogoyyEB 9MNJkSIZdmT70 Xv2ueZsnPe5uMDVqDMB1Q WSesDLsS7BtxT4pXkHoCU TrCJVmV8OqiAKsCTbjP98 2OEikReA2BZIo alCuQ7YrZDSxsNvqBxH1l 8W9Ms9SvEtdjCHyFF8nTl BxNWp6D0JwAff4XUMyrOb zTP0sqHCeCOob Xq5ueBzvgVatUJ4wRGAhz hmuy045XdNgn2mmHOSzpS HhDXvmDVI9T18hc9M1HLN zOBGpVPE0pJN7 dO0voDuiexdtbWIvlZnqt nSzuKdeHMdqVBqrN621NF NhtIydAhSAKvz4X9IgXft 2NHTozGheLE9w jZTiFMauLv8xoVihzVqlW P6aXNXxsxmow313FkYaj6 fhTKZphLZiFSnwVHU9Y01 jf6A4PBWnEUEi PRC7iTZ7bC2vqEhvfccro GVmdDsgdmVydGljYWwtYW rnO550PSRowCtuWf8VGyd 4G8QgFqa0ZAXl hFqiUQ4krDRmTWzrVs7cw KqnuWgnOP1rKVHcpbxty5 74AiKeg8tlCNKtzCXmUYy rOMN3F59sc1P5 JLQrZIYnLKR9sQB8hA6lg GlnbjogbGVmdDsgdmVydG hnKYfkRLceO766VETgnGj nPlBheWVyOjwv dGQ+AU81hf78D2CfWzfcN ps7SSKgKZR2yKS2kL5wQC DoHXsxw1L5hDC8I2RupkK imz1rm1dbMOLk ZTog (more content not included)... Normal [facility] POCT PT/INRon 04-05-2022 POCT INR 1.3 High .7-1.2 [facility] Comment on above: Performed By: #### 2 [id number] #### [facility] Laboratory [address] [place] [address] POCT PT 15.0 second(s) Normal 8.0-15.0 [facility] Comment on above: Performed By: #### 2 [id number] #### [facility] Laboratory [address] [place] [address] POCT INR Error Invalid Interpretation Code .7-1.2 [facility] Comment on above: Performed By: #### 1 [id number], [id number] #### [facility] Laboratory [address] [place] [address] POCT PT Strip Error Invalid Interpretation Code 8.0-15.0 [facility] Comment on above: Performed By: #### 1 [id number] #### [facility] Laboratory [address] [place] [address] POCT INR Error Invalid Interpretation Code .7-1.2 [facility] Comment on above: Performed By: #### 1 [id number], [id number], [id number] #### [facility] Laboratory [address] [place] [address] POCT PT Strip Error Invalid Interpretation Code 8.0-15.0 [facility] Comment on above: Performed By: #### 1 [id number], [id number], [id number] #### [facility] Laboratory [address] [place] [address] Physician Orderon 04-01-2022 Physician Order [id number]# 1.00CD:127 Normal [facility] Consent for Treatmenton Consent for Treatment [id number]#1 .00CD:127 Normal [facility] POCT PT/INRon 03-29-2022 POCT INR 1.3 High .7-1.2 [facility] Comment on above: Performed By: #### 2 [id number] #### [facility] Laboratory [address] [place] [address] POCT PT 14.2 second(s) Normal 8.0-15.0 [facility] Comment on above: Performed By: #### 2 [id number] #### [facility] Laboratory [address] [place] [address] [facility] echo transthoracicon [facility] echo transthoracic [facility] [address] Echocardiogram Signed Patient: Fredrick Stroud MR#: [id number] 427 : 1950 Acct:[id number] Age/Sex: 71 / M ADM Date: 03/27/22 Loc: Room: Type: [facility] Attending Dr: Sejal Link CHILD CARE ATTENDANT-C Ordering Provider: Sejal Link APRN Date of Service: 03/27/22/ [facility] echo transthoracic: Afib. SOB. HTN. Copies to: LUCY Hankins MD, [facility] BSA: 2.2 m2 BP: 125/82 mmHg [...] mmHg Transcribed By: SCV Performed At: 03/27/22 5719 Signed By: Love Gaviria MD, [facility] 03/27/22 1557 [facility] Free T4 (Free Thyroxine)on 0 03-27-2022 Free T4 [Mass/Vol] 1.01 ng/dL Normal 0.61-1.12 [facility] Comment on above: Order Comment: Reaso n for Exam Atrial fibrillation;Essential hypertension Performed By: #### C BC, CMP, HS TROP, BNP #### [facility] [address] TSH DL <= 0.005 mIU/L QnOrde red By: Sejal Link on 03-27-2022 TSH Qn 2.57 m[IU]/L 0.45-5.[address] [facility] Thyroid Stimulating Hormoneo n 03-27-2022 TSH Qn 2.57 m[IU]/L Normal 0.45-5.[address] [facility] Comment on above: Order Comment: Reaso n for Exam Atrial fibrillation;Essential hypertension Result Comment: PERF ORMED BY: [place] [address] PATHOLOGIST [employer]SIDE [employer] SAL[employer] REPRESENTATIVE EYAD HOWARD M.D. Performed By: #### C BC, CMP, HS TROP, BNP #### [facility] [address] [place] [address] Thyroxine (T4) free [Mass/vo lume] in Serum or PlasmaOrdered By: Sejal Link on 03-27-2022 Free T4 [Mass/Vol] 1.01 ng/dL 0.61-1.12 [facility] Triiodothyronine (T3) Freeon 03-27-2022 Triiodothyronine (T3) Free 3.17 pg/mL Normal 2.50-3.[address] [facility] Comment on above: Order Comment: Reaso n for Exam Atrial fibrillation;Essential hypertension Result Comment: PERF ORMED BY: [place] [address] PATHOLOGIST OUTSIDE [employer]UST[employer] SALES REPRESENTATIVE EYAD HOWARD M.D. Performed By: #### C BC, CMP, HS TROP, BNP #### [facility] [address] [place] [address] [place] Triiodothyronine (T3) Free [ Mass/volume] in Serum or PlasmaOrdered By: Sejal Link on 03-27-2022 Free T3 [Mass/Vol] 3.17 pg/mL 2.50-3.90 [facility] Office Visit (Cardiology)on 03-21-2022 Follow-up [...] Goal 2.0-3.0. Patient would like managed with [facility] Coumadin clinic Follow up in 2 [...] which include rate control with anticoagulation versus lutheran of maintenance of sinus rhythm. After discussing [...] Signs Recorded: 21Mar2022 02:26PM Heart Rate67, Apical Txxiuhib014, RUE, Ruouyvq947, LUE, Sitting Neltbbawu65, RUE, Nmihrjn56, LUE, Sitting He (more content not included)... Normal [facility] Albumin [Mass/volume] in Ser um or PlasmaOrdered By: Yo Blood on 03-11-2022 Albumin [Mass/Vol] 4.1 g/dL 3.2-5.5 [facility] B-Type Natriuretic Peptideon 03-11-2022 Natriuretic peptide B (Bld) [Mass/Vol] 101.0 pg/mL High 5-[address] [facility] Comment on above: Result Comment: PERF ORMED BY: [place] [address] PATHOLOGIST [employer] SAL[employer] REPRESENTATIVE EYAD HOWARD M.D. Performed By: #### C BC, CMP, HS TROP, BNP #### [address] Basophils Auto (Bld) [#/Vol] Ordered By: Yo Blood on 03-11-2022 Basophils (Bld) [#/Vol] 0.0 10*3/uL 0.0-0.[address] [facility] Basophils/100 WBC Auto (Bld) Ordered By: Yo Blood on 03-11-2022 Basophils/100 WBC (Bld) 1.1 % . [facility] COVID-19 Antigenon 3 COVID-19 Antigen [...] developed and its performance characteristic determined by [employer] and validated at [facility]. This test has not been [...] for SARS Antigen by [employer] PERFORMED BY: [place] [address] PATHOLOGIST OUTSIDE [employer] SALES REPRESENTATIVE EYAD HOWARD M.D. Normal [facility] Comment on above: Performed By: #### C OVID-19 GERTRUDE, SOFIANEG #### [address] COVID-19 SOFIAOrdered By: Buster Blood on 03-11-2022 SARS-CoV+SARS-CoV-2 (COVID-19) Ag IA.rapid Ql (Resp) Negative Negative [facility] Comment on above: This is a duplicate Gertrude SARS Antigen (OLY) result to be used for statistical tracking purpose only. Complete Blood Count Auto Di ffon 03-11-2022 Basophils (Bld) [#/Vol] 0.0 10*3/uL Normal 0.0-0.[address] [facility] Comment on above: Result Comment: PERF ORMED BY: [place] [address] PATHOLOGIST [employer] REPRESENTATIVE EYAD HOWARD M.D. Performed By: #### C BC, CMP, HS TROP, BNP #### [facility] [address] [place] [address] [place] Basophils/100 WBC (Bld) 1.1 % Normal . [facility] Comment on above: Performed By: #### C BC, CMP, HS TROP, BNP #### [facility] [address] Eosinophils (Bld) [#/Vol] 0.0 10*3/uL Normal 0.0-0.[address] [facility] Comment on above: Performed By: #### C BC, CMP, HS TROP, BNP #### [address] Eosinophils/100 WBC (Bld) 0.4 % Normal . [facility] Comment on above: Performed By: #### C BC, CMP, HS TROP, BNP #### [address] Erythrocyte distribution width (RBC) [Ratio] 14.0 % Normal 12.0-14.[address] [facility] Comment on above: Performed By: #### C BC, CMP, HS TROP, BNP #### [address] Hematocrit (Bld) [Volume fraction] 46.7 % Normal 38.8-50.[address] [facility] Comment on above: Performed By: #### C BC, CMP, HS TROP, BNP #### [address] Hemoglobin (Bld) [Mass/Vol] 15.3 g/dL Normal 13.0-17.[address] [facility] Comment on above: Performed By: #### C BC, CMP, HS TROP, BNP #### [place] [address] [place] Lymphocytes (Bld) [#/Vol] 1.1 10*3/uL Normal 1.00-4.[address] [facility] Comment on above: Performed By: #### C BC, CMP, HS TROP, BNP #### [place] [address] [place] Lymphocytes/100 WBC (Bld) 29.0 % Normal . [facility] Comment on above: Performed By: #### C BC, CMP, HS TROP, BNP #### [address] MCH (RBC) [Entitic mass] 29.4 pg Normal 27.5-35.[address] [facility] Comment on above: Performed By: #### C BC, CMP, HS TROP, BNP #### [address] MCV (RBC) [Entitic vol] 89.6 fL Normal 83.5-[address] [facility] Comment on above: Performed By: #### C BC, CMP, HS TROP, BNP #### [address] Mean Corpuscular HGB Conc 32.8 g/dL Normal 32.5-35.[address] [facility] Comment on above: Performed By: #### C BC, CMP, HS TROP, BNP #### [address] Monocytes (Bld) [#/Vol] 0.8 10*3/uL Normal 0.0-0.[address] [facility] Comment on above: Performed By: #### C BC, CMP, HS TROP, BNP #### [address] Monocytes/100 WBC (Bld) 20.67 % High 0.00-20.[address] [facility] Comment on above: Result Comment: For adults in ED, MDW > 20.0 may be associated with a higher risk of sepsis during the first 12 hrs of hospital admission Performed By: #### C BC, CMP, HS TROP, BNP #### [address] Monocytes/100 WBC (Bld) 20.9 % Normal . [facility] Comment on above: Performed By: #### C BC, CMP, HS TROP, BNP #### [address] Neutrophils (Bld) [#/Vol] 1.8 10*3/uL Normal 1.8-7.[address] [facility] Comment on above: Performed By: #### C BC, CMP, HS TROP, BNP #### [address] Neutrophils/100 WBC (Bld) 48.6 % Normal . [facility] Comment on above: Performed By: #### C BC, CMP, HS TROP, BNP #### [address] NRBC% 0.2 /100{WBC} Normal 0-0.[address] [facility] Comment on above: Performed By: #### C BC, CMP, HS TROP, BNP #### [address] Platelet mean volume (Bld) [Entitic vol] 8.5 fL Normal 6.6-10.[address] [facility] Comment on above: Performed By: #### C BC, CMP, HS TROP, BNP #### [address] Platelets (Bld) [#/Vol] 197 10*3/uL Normal 150-[address] [facility] Comment on above: Performed By: #### C BC, CMP, HS TROP, BNP #### [address] RBC (Bld) [#/Vol] 5.21 10*6/uL Normal 3.90-5.60 [facility] Comment on above: Performed By: #### C BC, CMP, HS TROP, BNP #### [address] WBC (Bld) [#/Vol] 3.7 10*3/uL Low 4.1-10.5 [facility] Comment on above: Performed By: #### C BC, CMP, HS TROP, BNP #### [address] Comprehensive Metabolic Pane rigo 03-11-2022 Albumin [Mass/Vol] 4.1 g/dL Normal 3.2-5.5 [facility] Comment on above: Performed By: #### C BC, CMP, HS TROP, BNP #### [facility] [address] [place] [address] [place] Albumin/Globulin [Mass ratio] 1.5 {ratio} Normal [facility] Comment on above: Performed By: #### C BC, CMP, HS TROP, BNP #### [facility] [address] ALP [Catalytic activity/Vol] 79 U/L Normal 32-[address] [facility] Comment on above: Performed By: #### C BC, CMP, HS TROP, BNP #### [facility] [address] ALT [Catalytic activity/Vol] 23 U/L Normal 10-[address] [facility] Comment on above: Performed By: #### C BC, CMP, HS TROP, BNP #### [facility] [address] Anion gap [Moles/Vol] 13.7 mmol/L Normal 6.0-15.0 [facility] Comment on above: Performed By: #### C BC, CMP, HS TROP, BNP #### [facility] [address] [place] [address] [place] AST [Catalytic activity/Vol] 32 U/L Normal 10-[address] [facility] Comment on above: Performed By: #### C BC, CMP, HS TROP, BNP #### [facility] [address] [place] [address] [place] Bilirubin [Mass/Vol] 0.6 mg/dL Normal 0.3-1.2 [facility] Comment on above: Performed By: #### C BC, CMP, HS TROP, BNP #### [facility] [address] [place] [address] [place] Calcium [Mass/Vol] 9.2 mg/dL Normal 8.2-10.2 [facility] Comment on above: Performed By: #### C BC, CMP, HS TROP, BNP #### [facility] [address] [place] [id number] [place] Chloride [Moles/Vol] 98 mmol/L Normal 95-114 [facility] Comment on above: Performed By: #### C BC, CMP, HS TROP, BNP #### [facility] [address] CO2 [Moles/Vol] 29.0 mmol/L Normal 22.0-30.0 [facility] Comment on above: Performed By: #### C BC, CMP, HS TROP, BNP #### [facility] [address] Creatinine [Mass/Vol] 0.86 mg/dL Normal 0.64-1.27 [facility] Comment on above: Performed By: #### C BC, CMP, HS TROP, BNP #### [address] Creatinine Clr Calc Pharmacy 91.63 [facility] Comment on above: Result Comment: PERF ORMED BY: [place] [address] PATHOLOGIST OUTS[employer] REPRESENTATIVE EYAD HOWARD M.D. Performed By: #### C BC, CMP, HS TROP, BNP #### [address] Estimated GFR ( Jessica > 60 [facility] Comment on above: Result Comment: GFR estimated reference range: According to KDOQI guidelines, <60 ml/min/1.73m2 is sufficient to diagnose a patient with chronic kidney disease. Performed By: #### C BC, CMP, HS TROP, BNP #### [address] Estimated GFR (Non- Am > 60 [facility] Comment on above: Performed By: #### C BC, CMP, HS TROP, BNP #### [place] [address] [place] Globulin (S) [Mass/Vol] 2.8 g/dL [facility] Comment on above: Performed By: #### C BC, CMP, HS TROP, BNP #### [facility] [address] Glucose [Mass/Vol] 91 mg/dL Normal 70-100 [facility] Comment on above: Result Comment: [place] Glucose Reference Range is dependent on time and content of last meal. Glucose of more than 200 mg/dL in a nonstressed, ambulatory subject supports the diagnosis of Diabetes Mellitus. ADA recommended reference range Performed By: #### C BC, CMP, HS TROP, BNP #### [facility] [address] [place] [address] [place] Potassium [Moles/Vol] 3.7 mmol/L Normal 3.5-5.1 [facility] Comment on above: Performed By: #### C BC, CMP, HS TROP, BNP #### [facility] [address] [place] [address] [place] Protein [Mass/Vol] 6.9 g/dL Normal 6.1-7.9 [facility] Comment on above: Performed By: #### C BC, CMP, HS TROP, BNP #### [facility] [address] [place] [address] [place] Sodium [Moles/Vol] 137 mmol/L Normal 136-146 [facility] Comment on above: Performed By: #### C BC, CMP, HS TROP, BNP #### [facility] [address] [place] [id number] [place] Urea nitrogen [Mass/Vol] 10 mg/dL Normal 9-[address] [facility] Comment on above: Performed By: #### C BC, CMP, HS TROP, BNP #### [facility] [address] [place] [address] [place] Creatinine and Glomerular fi ltration rate.predicted panel (S/P/Bld)Ordered By: Yo Blood on 03-11-2022 Creatinine [Mass/Vol] 0.86 mg/dL 0.64-1.27 [facility] ECG 12 lead ECGon 03-11-2022 ECG 12 lead ECG [facility] [place] [address] [place] [address] Electrocardiograph Report Signed Patient: Fredrick Stroud MR#: [id number] 427 : 1950 Acct:[id number] Age/Sex: 71 / M ADM Date: 03/11/22 Loc: ER Room: Type: [facility] ER Attending Dr: Ordering Provider: Yo [...] voltage QRS Confirmed by Yo BLOOD DO ([id number]) on 03/11/2022 9:03:33 PM Referred By: Electronically Signed By:Yo BLOOD DO Transcribed By: MUS Signed By Yo Blood DO 0 03/11/222102 [facility] ECG 12 lead ECG [facility] [place] [address] [place] [address] Electrocardiograph Report Signed Patient: Fredrick Stroud MR#: [id number] 427 : 1950 Acct:[id number] Age/Sex: 71 / M ADM Date: 03/11/22 Loc: ER Room: Type: [facility] ER Attending Dr: Ordering Provider: Yo [...] voltage QRS Confirmed by Yo BLOOD DO ([id number]) on 03/11/2022 7:52:28 PM Referred By: Electronically Signed By:Yo BLOOD DO Transcribed By: MUS Signed By Yo Blood DO 0 03/11/221951 [facility] Eosinophils Auto (Bld) [#/Vo l]Ordered By: Yo Blood on 03-11-2022 Eosinophils (Bld) [#/Vol] 0.0 10*3/uL 0.0-0.[address] [facility] Eosinophils/100 WBC Auto (Bl d)Ordered By: Yo Blood on 03-11-2022 Eosinophils/100 WBC (Bld) 0.4 % . [facility] Erythrocyte distribution wid th Auto (RBC) [Ratio]Ordered By: Yo Blood on 03-11-2022 Erythrocyte distribution width (RBC) [Ratio] 14.0 % 12.0-14.[address] [facility] Estimated glomerular filtrat ion rate (GFR) non- AmericanOrdered By: Yo Blood on 03-11-2022 GFR/1.73 sq M.predicted among non-blacks MDRD (S/P/Bld) [Vol rate/Area] > 60 mL/Min [facility] Globulin Calc (S) [Mass/Vol] Ordered By: Yo Blood on 03-11-2022 Globulin (S) [Mass/Vol] 2.8 g/dL [facility] Hematocrit Auto (Bld) [Volum e fraction]Ordered By: Yo Blood on 03-11-2022 Hematocrit (Bld) [Volume fraction] 46.7 % 38.8-50.[address] [facility] Hemoglobin [Mass/volume] in BloodOrdered By: Yo Blood on 03-11-2022 Hemoglobin (Bld) [Mass/Vol] 15.3 g/dL 13.0-17.[address] [facility] Laboratory - Chemistry and C hemistry - challengeOrdered By: Yo Blood on 03-11-2022 Natriuretic peptide B (Bld) [Mass/Vol] 101.0 pg/mL 5-[address] [facility] Leukocytes [#/volume] correc vlad for nucleated erythrocytes in Blood by Automated counOrdered By: Yo Blood on 03-11-2022 WBC corrected for nucl RBC Auto (Bld) [#/Vol] 3.7 10*3/uL 4.1-10.[address] [facility] Lymphocytes Auto (Bld) [#/Vo l]Ordered By: Yo Blood on 03-11-2022 Lymphocytes (Bld) [#/Vol] 1.1 10*3/uL 1.00-4.[address] [facility] Lymphocytes/100 WBC Auto (Bl d)Ordered By: Yo Blood on 03-11-2022 Lymphocytes/100 WBC (Bld) 29.0 % . [facility] MCH Auto (RBC) [Entitic mass ]Ordered By: Yo Blood on 03-11-2022 MCH (RBC) [Entitic mass] 29.4 pg 27.5-35.[address] [facility] MCHC Auto (RBC) [Mass/Vol]Or dered By: Yo Blood on 03-11-2022 MCHC (RBC) [Mass/Vol] 32.8 g/dL 32.5-35.6 [facility] MCV Auto (RBC) [Entitic vol] Ordered By: Yo Blood on 03-11-2022 MCV (RBC) [Entitic vol] 89.6 fL 83.5-[address] [facility] Monocyte distribution width [Entitic volume] in Blood by AutomatedOrdered By: Yo Blood on 03-11-2022 Monocyte distribution width Auto (Bld) [Entitic vol] 20.67 % 0.00-20.[address] [facility] Comment on above: For adults in ED, MD W > 20.0 may be associated with a higher risk of sepsis during the first 12 hrs of hospital admission Monocytes Auto (Bld) [#/Vol] Ordered By: Yo Blood on 03-11-2022 Monocytes (Bld) [#/Vol] 0.8 10*3/uL 0.0-0.[address] [facility] Monocytes/100 WBC Auto (Bld) Ordered By: Yo Blood on 03-11-2022 Monocytes/100 WBC (Bld) 20.9 % . [facility] Neutrophils Auto (Bld) [#/Vo l]Ordered By: oY Blood on 03-11-2022 Neutrophils (Bld) [#/Vol] 1.8 10*3/uL 1.8-7.[address] [facility] Neutrophils/100 WBC Auto (Bl d)Ordered By: Yo Blood on 03-11-2022 Neutrophils/100 WBC (Bld) 48.6 % . [facility] No Panel InformationOrdered By: Yo Blood on 03-11-2022 SARS Antigen (LFIA) [facility] Estimated GFR () > 60 mL/Min [facility] Comment on above: GFR estimated refere nce range: According to KDOQI guidelines, <60 ml/min/1.73m2 is sufficient to diagnose a patient with chronic kidney disease. Pharmacy Creatinine Clearance (Chem 91.[address] [facility] Nucleated erythrocytes [Pres ence] in Blood by Automated countOrdered By: Yo Blood on 03-11-2022 Nucleated RBC Auto Ql (Bld) 0.2 /100{WBC} 0-0.[address] [facility] Platelet mean volume Auto (B ld) [Entitic vol]Ordered By: Yo Blood on 03-11-2022 Platelet mean volume (Bld) [Entitic vol] 8.5 fL 6.6-10.[address] [facility] Platelets Auto (Bld) [#/Vol] Ordered By: Yo Blood on 03-11-2022 Platelets (Bld) [#/Vol] 197 10*3/uL 150-[address] [facility] Protein [Mass/volume] in Ser um or PlasmaOrdered By: Yo Blood on 03-11-2022 Protein [Mass/Vol] 6.9 g/dL 6.1-7.9 [facility] RBC Auto (Bld) [#/Vol]Ordere d By: Yo Blood on 03-11-2022 RBC (Bld) [#/Vol] 5.21 10*6/uL 3.90-5.60 [facility] Serum or plasma alanine sullivan otransferase measurement without P-5'-P (enzymatic activiOrdered By: Yo Blood on 03-11-2022 ALT No additional P-5'-P [Catalytic activity/Vol] 23 U/L 10-[address] [facility] Serum or plasma albumin/glob ulin mass ratioOrdered By: Yo Blood on 03-11-2022 Albumin/Globulin [Mass ratio] 1.5 {ratio} [facility] Serum or plasma alkaline faviola sphatase measurement (enzymatic activity/volume)Ordered By: Yo Blood on 03-11-2022 ALP [Catalytic activity/Vol] 79 U/L 32-[address] [facility] Serum or plasma anion gap de terminationOrdered By: Yo Blood on 03-11-2022 Anion gap [Moles/Vol] 13.7 mmol/L 6.0-15.0 [facility] Serum or plasma aspartate am inotransferase measurement (enzymatic activity/volume)Ordered By: Yo Blood on 03-11-2022 AST [Catalytic activity/Vol] 32 U/L 10-[address] [facility] Serum or plasma calcium echo urement (mass/volume)Ordered By: Yo Blood on 03-11-2022 Calcium [Mass/Vol] 9.2 mg/dL 8.2-10.2 [facility] Serum or plasma chloride tessie surement (moles/volume)Ordered By: Yo Blood on 03-11-2022 Chloride [Moles/Vol] 98 mmol/L 95-114 [facility] Serum or plasma glucose echo urement (mass/volume)Ordered By: Yo Blood on 03-11-2022 Glucose [Mass/Vol] 91 mg/dL 70-100 [facility] Comment on above: ADA recommended refe rence rangeRandom Glucose Reference Range is dependent on time and content of last meal. Glucose of more than 200 mg/dL in a nonstressed, ambulatory subject supports the diagnosis of Diabetes Mellitus. Serum or plasma potassium me asurement (moles/volume)Ordered By: Yo Blood on 03-11-2022 Potassium [Moles/Vol] 3.7 mmol/L 3.5-5.1 [facility] Serum or plasma sodium measu rement (moles/volume)Ordered By: Yo Blood on 03-11-2022 Sodium [Moles/Vol] 137 mmol/L 136-146 [facility] Serum or plasma total biliru bin measurement (mass/volume)Ordered By: Yo Blood on 03-11-2022 Bilirubin [Mass/Vol] 0.6 mg/dL 0.3-1.2 [facility] Serum or plasma total carbon dioxide measurement (moles/volume)Ordered By: Yo Blood on 03-11-2022 CO2 [Moles/Vol] 29.0 mmol/L 22.0-30.0 [facility] Serum or plasma urea nitroge n measurement (mass/volume)Ordered By: Yo Blood on 03-11-2022 Urea nitrogen [Mass/Vol] 10 mg/dL 9-[address] [facility] Gertrude Ag Negativeon 03-11-19 Gertrude Ag Negative Negative Normal Negative [facility] Comment on above: Result Comment: This is a duplicate Gertrude SARS Antigen (OLY) result to be used for statistical tracking purpose only. PERFORMED BY: [place] [address] PATHOLOGIST OUTSIDE INDUSTRIAL SALES REPRESENTATIVE EYAD HOWARD M.D. Performed By: #### C OVID-19 GERTRUDE, SOFIANEG #### [place] [id number] [facility] Troponin I High Sensitivityo n 03-11-2022 Troponin I High Sensitivity 9 pg/mL Normal 0-[address] [facility] Comment on above: Result Comment: PERF ORMED BY: [place] [address] PATHOLOGIST OUTSIDE INDUSTRIAL SALES REPRESENTATIVE EYAD HOWARD M.D. Performed By: #### C BC, CMP, HS TROP, BNP #### [address] [address] [facility] Troponin I.cardiac [Mass/vol ume] in Serum or Plasma by High sensitivity methodOrdered By: Yo Blood on 03-11-2022 Troponin I.cardiac High sensitivity method [Mass/Vol] 9 pg/mL 0-[address] [facility] WBC Auto (Bld) [#/Vol]Ordere d By: Yo Blood on 03-11-2022 WBC (Bld) [#/Vol] 3.7 10*3/uL 4.1-10.5 [facility] XR chest 2V*on 03-11-2022 XR chest 2V* [facility] [place] [address] [place], [place] [id number] XRay Report Signed Patient: Fredrick Stroud MR#: [id number] 427 : 1950 Acct:[id number] Age/Sex: 71 / M ADM Date: 03/11/22 [...] 03/11/22 1339 Signed By: 03/11/[address] [facility] XR hip LT min 2V(w/wo pelvis )*on 09-26-2021 XR hip LT min 2V(w/wo pelvis)* [facility] [place] [address] [place] [address] XRay Report Signed Patient: Fredrick Stroud MR#: [id number] 427 : 1950 Acct:[id number] Age/Sex: 70 / M ADM Date: 09/26/21 Loc: [facility] Room: Type: [facility] Attending Dr: Shahriar Dhillon II, MD Copies [...] MD 09/26/21 1526 Signed By: 09/26/21 1527 [facility] XR hip LT min 2V(w/wo pelvis )*on 08-15-2021 XR hip LT min 2V(w/wo pelvis)* [address] [address] XRay Report Signed Patient: Fredrick Stroud MR#: [id number] 427 : 1950 Acct:[id number] Age/Sex: 70 / M ADM Date: 08/15/21 Loc: [facility] [place]: Type: [facility] Attending Dr: Shahriar Dhillon II, MD Copies [...] DO 08/15/21 1439 Signed By: 08/15/21 1440 [facility] XR hip LT min 2V(w/wo pelvis)* [facility] [employer] Other XR hip LT min 2V(w/wo pelvis)* [facility] [employer] Other XR hip LT min 2V(w/wo pelvis)* [address] [place] [address] [employer] Other XR hip LT min 2V(w/wo pelvis)* [place] [address] [employer] Other XR hip LT min 2V(w/wo pelvis)* XRay Report [employer] Other XR hip LT min 2V(w/wo pelvis)* Signed [employer] Other XR hip LT min 2V(w/wo pelvis)* Patient: Fredrick Stroud MR#: [id number] [employer] Other XR hip LT min 2V(w/wo pelvis)* 427 [employer] Other XR hip LT min 2V(w/wo pelvis)* : 1950 Acct:[id number] [employer] Other XR hip LT min 2V(w/wo pelvis)* Age/Sex: 70 / M ADM Date: 08/15/21 [employer] Other XR hip LT min 2V(w/wo pelvis)* [place]: [facility] Room: Type: [facility] [employer] Other XR hip LT min 2V(w/wo pelvis)* Attending Dr: Shahriar Dhillon II, MD [employer] Other XR hip LT min 2V(w/wo pelvis)* Copies to: Shahriar Dhillon MD [employer] Other XR hip LT min 2V(w/wo pelvis)* Ordering Provider: Shahrira Dhillon MD [employer] Other XR hip LT min 2V(w/wo pelvis)* Date of Service: 08/15/21 [employer] Other XR hip LT min 2V(w/wo pelvis)* XR/XR hip LT min 2V(w/wo pelvis)*: Aftercare following joint replacement [employer] Other XR hip LT min 2V(w/wo pelvis)* surgery [employer] Other XR hip LT min 2V(w/wo pelvis)* LEFT HIP - 2 views: 1 view pelvis [employer] Other XR hip LT min 2V(w/wo pelvis)* CLINICAL HISTORY: Follow-up left GEOVANI [employer] Other XR hip LT min 2V(w/wo pelvis)* COMPARISON: Hip series 07/02/2021 [employer] Other XR hip LT min 2V(w/wo pelvis)* FINDINGS: 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 Prostate radiation [employer] Other XR hip LT min 2V(w/wo pelvis)* seeds. Mild degenerative changes right hip. [employer] Other XR hip LT min 2V(w/wo pelvis)* XR/XR hip LT min 2V(w/wo pelvis)* [employer] Other XR hip LT min 2V(w/wo pelvis)* IMPRESSION: [employer] Other XR hip LT min 2V(w/wo pelvis)* NO EVIDENCE OF HARDWARE COMPLICATION. [employer] Other XR hip LT min 2V(w/wo pelvis)* Impression dictated by: Dandy Stevenson Jr., D.ODre08/15/2021 2:40 PM [employer] Other XR hip LT min 2V(w/wo pelvis)* Dictation Location: RADIO-PC-13 [employer] Other XR hip LT min 2V(w/wo pelvis)* Transcribed By: PWS 08/15/21 1440 [employer] Other XR hip LT min 2V(w/wo pelvis)* Dictated By: Dandy Stevenson Jr, DO 08/15/21 1439 [employer] Other XR hip LT min 2V(w/wo pelvis)* Signed By: [employer] Other XR hip LT min 2V(w/wo pelvis)* 08/15/21 1440 [employer] Other Basic Metabolic Panelon 06-24 Calcium [Mass/Vol] 8.6 mg/dL Normal 8.2-10.2 [facility] Comment on above: Performed By: #### C BC, BMP #### [facility] [address] [place] [address] [place] Chloride [Moles/Vol] 102 mmol/L Normal 95-114 [facility] Comment on above: Performed By: #### C BC, BMP #### [facility] [address] CO2 [Moles/Vol] 25.5 mmol/L Normal 22.0-30.0 [facility] Comment on above: Performed By: #### C BC, BMP #### [facility] [address] Creatinine [Mass/Vol] 0.96 mg/dL Normal 0.64-1.27 [facility] Comment on above: Performed By: #### C BC, BMP #### [facility] [address] [place] [address] [place] Creatinine Clr Calc Pharmacy 81.73 [facility] Comment on above: Result Comment: PERF ORMED BY: [place] [address] PATHOLOGIST OUTSIDE [employer] SAL[employer] REPRESENTATIVE EYAD HOWARD M.D. Performed By: #### C BC, BMP #### [address] Estimated GFR ( Jessica > 60 [facility] Comment on above: Result Comment: GFR estimated reference range: According to KDOQI guidelines, <60 ml/min/1.73m2 is sufficient to diagnose a patient with chronic kidney disease. Performed By: #### C BC, BMP #### [place] [address] [place] Estimated GFR (Non- Am > 60 [facility] Comment on above: Performed By: #### C BC, BMP #### [address] Glucose [Mass/Vol] 167 mg/dL High 70-100 [facility] Comment on above: Result Comment: [facility] Glucose Reference Range is dependent on time and content of last meal. Glucose of more than 200 mg/dL in a nonstressed, ambulatory subject supports the diagnosis of Diabetes Mellitus. ADA recommended reference range Performed By: #### C BC, BMP #### [address] Potassium [Moles/Vol] 4.4 mmol/L Normal 3.5-5.1 [facility] Comment on above: Performed By: #### C BC, BMP #### [address] Sodium [Moles/Vol] 135 mmol/L Low 136-146 [facility] Comment on above: Performed By: #### C BC, BMP #### [address] Urea nitrogen [Mass/Vol] 18 mg/dL Normal 9-[address] [facility] Comment on above: Performed By: #### C BC, BMP #### [address] Complete Blood Count Auto Di ffon 07-03-2021 Basophils (Bld) [#/Vol] 0.0 10*3/uL Normal 0.0-0.[address] [facility] Comment on above: Result Comment: PERF ORMED BY: [place] [address] PATHOLOGIST OUTSIDE [employer]UST[employer] SALES REPRESENTATIVE EYAD HOWARD M.D. Performed By: #### C BC, BMP #### [address] Basophils/100 WBC (Bld) 0.3 % Normal . [facility] Comment on above: Performed By: #### C BC, BMP #### [address] Eosinophils (Bld) [#/Vol] 0.0 10*3/uL Normal 0.0-0.[address] [facility] Comment on above: Performed By: #### C BC, BMP #### [facility] [address] Eosinophils/100 WBC (Bld) 0.0 % Normal . [facility] Comment on above: Performed By: #### C BC, BMP #### [facility] [address] Erythrocyte distribution width (RBC) [Ratio] 14.2 % Normal 12.0-14.[address] [facility] Comment on above: Performed By: #### C BC, BMP #### [address] Hematocrit (Bld) [Volume fraction] 32.9 % Low 38.8-50.[address] [facility] Comment on above: Performed By: #### C BC, BMP #### [address] Hemoglobin (Bld) [Mass/Vol] 11.2 g/dL Low 13.0-17.[address] [facility] Comment on above: Performed By: #### C BC, BMP #### [address] Lymphocytes (Bld) [#/Vol] 0.6 10*3/uL Low 1.00-4.[address] [facility] Comment on above: Performed By: #### C BC, BMP #### [place] [address] [place] Lymphocytes/100 WBC (Bld) 4.7 % Normal . [facility] Comment on above: Performed By: #### C BC, BMP #### [address] MCH (RBC) [Entitic mass] 30.1 pg Normal 27.5-35.[address] [facility] Comment on above: Performed By: #### C BC, BMP #### [address] MCV (RBC) [Entitic vol] 88.7 fL Normal 83.5-[address] [facility] Comment on above: Performed By: #### C BC, BMP #### [facility] [address] [place] [id number] [place] Mean Corpuscular HGB Conc 33.9 g/dL Normal 32.5-35.[address] [facility] Comment on above: Performed By: #### C BC, BMP #### [facility] [address] [place] [address] [place] Monocytes (Bld) [#/Vol] 1.0 10*3/uL High 0.0-0.[address] [facility] Comment on above: Performed By: #### C BC, BMP #### [facility] [address] [place] [address] [place] Monocytes/100 WBC (Bld) 8.3 % Normal . [facility] Comment on above: Performed By: #### C BC, BMP #### [facility] [address] [place] [address] [place] Neutrophils (Bld) [#/Vol] 10.9 10*3/uL High 1.8-7.[address] [facility] Comment on above: Performed By: #### C BC, BMP #### [facility] [address] [place] [address] [place] Neutrophils/100 WBC (Bld) 86.7 % Normal . [facility] Comment on above: Performed By: #### C BC, BMP #### [facility] [address] [place] [id number] [place] Nucleated RBC/100 WBC (Bld) [Ratio] 0.0 % Normal 0-0.[address] [facility] Comment on above: Performed By: #### C BC, BMP #### [facility] [address] [place] [id number] [place] Platelet mean volume (Bld) [Entitic vol] 8.4 fL Normal 6.6-10.[address] [facility] Comment on above: Performed By: #### C BC, BMP #### [facility] [address] [place] [id number] [place] Platelets (Bld) [#/Vol] 210 10*3/uL Normal 150-[address] [facility] Comment on above: Performed By: #### C BC, BMP #### [facility] [address] RBC (Bld) [#/Vol] 3.71 10*6/uL Low 3.90-5.60 [facility] Comment on above: Performed By: #### C BC, BMP #### [facility] [address] WBC (Bld) [#/Vol] 12.5 10*3/uL High 4.5-11.0 [facility] Comment on above: Performed By: #### C BC, BMP #### [facility] [address] ECG 12 lead ECGon 07-02-2021 ECG 12 lead ECG [facility] [place] [address] [place] [address] Electrocardiograph Report Signed Patient: Fredrick Stroud MR#: [id number] 427 : 1950 Acct:[id number] Age/Sex: 70 / M ADM Date: 07/02/21 Loc: [place] Room: Type: [facility] Attending Dr: Shahriar Dhillon II, MD Ordering [...] By Moreno Rosario DO 07/02 [address] [facility] [place] 07-02-2021 L - -------- Specimen: [id number] Received: 07/02/21 Status: LORETTA Solis Num: [id number] Spec Type: Surgical Subm Dr: Shahriar Dhillon MD Tissues: A Femoral Head - Other than Fracture (L HIP) Procedures: HE Stain, Gross/Micro L3, Decal -------- Patient Age/Sex Location Account Attending Physician -------- Fredrick Stroud 70/M MaryannN [id number] Shahriar Dhillon MD -------- SPEC NUM: [id number] RECD: 07/02/21 STATUS: LORETTA SOLIS NUM: [id number] MILY: 07/02/21- [facility] DR: Shahriar Dhillon MD ENTERED: 07/02/[address] [facility] [address]: SPEC TYPE: Surgical DEPT: S [...] bone fragments and scant soft tissue. A labor service representative section of bone, following formalin fixation and decalcification is submitted in cassette A 1. ([id number]/YJ) -------- Specimen: [id number] Received: 07/02/21 Status: LORETTA Solis Num: [id number] Spec Type: Surgical Subm Dr: Shahriar Dhillon MD Tissues: A Femoral Head - Other than Fracture (L HIP) Procedures: HE Stain, Gross/Micro L3, Decal -------- Patient: Igor Stroudpattie Leung [id number] (Continued) -------- Specimen: [id number] Received: 07/02/21 (Continued) Signed (signature on file) Kaycee Curry MD 07/04/21 1625 -------- Specimen: [id number] Received: 07/02/21 Status: KEITHKimberly Solis Num: [id number] Spec Type: Surgical Subm Dr: Shahriar Dhillon MD Tissues: A Femoral Head - Other than Fracture (L HIP) Procedures: HE Stain, Gross/Micro L3, Decal -------- Patient: JuanFredrick [id number] (Continued) -------- Specimen: [id number] Received: 07/02/21 (Continued) Microscopic Description One glass slide with H E stained material has been examined. The microscopic findings support the above pathologic diagnosis. CPT Codes 18247, 29133 -------- -------- Specimen: [id number] Received: 07/02/21 Status: KEITHKimberly Solis Num: [id number] Spec Type: Surgical Subm Dr: Shahriar Dhillon MD Tissues: A Femoral Head - Other than Fracture (L HIP) Procedures: HE Stain, Gross/Micro L3, Decal -------- Patient: Fredrick Stroud [id number] (Continued) -------- Signed (signature on file) Kaycee Curry MD 07/04/21 1625 [facility] XR hip LT 1Von 07-02-2021 XR hip LT 1V [address] [address] XRay Report Signed Patient: Fredrick Stroud MR#: [id number] 427 : 1950 Acct:[id number] Age/Sex: 70 / M ADM Date: 07/02/21 Loc: [place] Room: Type: [facility] Attending Dr: Shahriar Dhillon II, MD Ordering Provider: Shahriar Dhillon MD Date of Service: 07/02/21 XR/XR hip LT 1V: . Copies to: Shahriar hDillon MD Intraoperative study CLINICAL HISTORY: Left total [...] Stevenson Jr., DAdelaida07/02/2021 9:26 AM Dictation Location: [place] [address] Transcribed By: [facility] 07/02/21925 Dictated By: Dandy Stevenson Jr, DO 07/02/21922 Signed By: 07/02/21925 [facility] XR low pelvis w/LT x-table h ipon 07-02-2021 XR low pelvis w/LT x-table hip [address] [address] XRay Report Signed Patient: Fredrick Stroud MR#: [id number] 427 : 1950 Acct:[id number] Age/Sex: 70 / M ADM Date: 07/02/21 Loc: [place] Room: Type: [facility] Attending Dr: Shahriar Dhillon II, [...] Ariana Tanner M.D.07/02/2021 12:05 PM Dictation Location: [facility] Transcribed By: [facility] 07/02/21 1205 Dictated By: Ariana Tanner MD 07/02/21 1204 Signed By: 07/02/21 [address] [facility] COVID-19 [place] 06-28-2021 SARS-CoV-2 (COVID-19) RNA FABI+probe Ql (Unsp spec) Negative Normal Negative [facility] Comment on above: Order Comment: Healt hcare Worker?: N Result Comment: Testing for SARS-CoV-2 by RT-PCR This test was developed and its performance characteristics determined by [employer]) and validated at the [facility]. This test has not been [...] is terminated or revoked sooner. PERFORMED BY: [place] [address] PATHOLOGIST OUTSIDE INDUSTRIAL SALES REPRESENTATIVE EYAD HOWARD M.D. Performed By: #### C BC, CMP, HS TROP, BNP #### [facility] [address] [place] [address] [facility] Basic Metabolic Panelon 05-26 Calcium [Mass/Vol] 9.4 mg/dL Normal 8.2-10.2 [facility] Comment on above: Result Comment: PERF ORMED BY: [place] [address] PATHOLOGIST OUTSIDE INDUSTRIAL SALES REPRESENTATIVE EYAD HOWARD M.D. Performed By: #### C OVID-19 GERTRUDE, SOFIANEG #### [facility] [address] Chloride [Moles/Vol] 103 mmol/L Normal 95-114 [facility] Comment on above: Performed By: #### C OVID-19 GERTRUDE, SOFIANEG #### [facility] [address] [place], [place] [id number] [facility] CO2 [Moles/Vol] 26.4 mmol/L Normal 22.0-30.0 [facility] Comment on above: Performed By: #### C OVID-19 GERTRUDE, SOFIANEG #### [facility] [address] [place] [address] [place] Creatinine [Mass/Vol] 0.89 mg/dL Normal 0.64-1.27 [facility] Comment on above: Performed By: #### C OVID-19 GERTRUDE, SOFIANEG #### [facility] [address] [place] [id number] [place] Estimated GFR ( Jessica > [address] [facility] Comment on above: Result Comment: GFR estimated reference range: According to KDOQI guidelines, <60 ml/min/1.73m2 is sufficient to diagnose a patient with chronic kidney disease. Performed By: #### C OVID-19 GERTRUDE, SOFIANEG #### [facility] [address] Estimated GFR (Non- Am > [address] [facility] Comment on above: Performed By: #### C OVID-19 GERTRUDE, SOFIANEG #### [facility] [address] [place] [address] [place] Glucose [Mass/Vol] 101 mg/dL High 70-100 [facility] Comment on above: Result Comment: [facility] Glucose Reference Range is dependent on time and content of last meal. Glucose of more than 200 mg/dL in a nonstressed, ambulatory subject supports the diagnosis of Diabetes Mellitus. ADA recommended reference range Performed By: #### C OVID-19 GERTRUDE, SOFIANEG #### [facility] [address] Potassium [Moles/Vol] 4.4 mmol/L Normal 3.5-5.1 [facility] Comment on above: Performed By: #### C OVID-19 GERTRUDE, SOFIANEG #### [facility] [address] [place] [address] [place] Sodium [Moles/Vol] 139 mmol/L Normal 136-146 [facility] Comment on above: Performed By: #### C OVID-19 GERTRUDE, SOFIANEG #### [facility] [address] [place] [address] [place] Urea nitrogen [Mass/Vol] 23 mg/dL Normal 9-[address] [facility] Comment on above: Performed By: #### C OVID-19 GERTRUDE, SOFIANEG #### [facility] [address] Complete Blood Count Auto Di ffon 06-18-2021 Basophils (Bld) [#/Vol] 0.0 10*3/uL Normal 0.0-0.[address] [facility] Comment on above: Result Comment: PERF ORMED BY: [place] [address] PATHOLOGIST OUTSIDE [employer]UST[employer] SALES REPRESENTATIVE EYAD HOWARD M.D. Performed By: #### C OVID-19 GERTRUDE, SOFIANEG #### [address] Basophils/100 WBC (Bld) 0.9 % Normal . [facility] Comment on above: Performed By: #### C OVID-19 GERTRUDE, SOFIANEG #### [address] Eosinophils (Bld) [#/Vol] 0.1 10*3/uL Normal 0.0-0.[address] [facility] Comment on above: Performed By: #### C OVID-19 GERTRUDE, SOFIANEG #### [address] Eosinophils/100 WBC (Bld) 1.4 % Normal . [facility] Comment on above: Performed By: #### C OVID-19 GERTRUDE, SOFIANEG #### [address] Erythrocyte distribution width (RBC) [Ratio] 14.0 % Normal 12.0-14.[address] [facility] Comment on above: Performed By: #### C OVID-19 GERTRUDE, SOFIANEG #### [address] Hematocrit (Bld) [Volume fraction] 41.8 % Normal 38.8-50.[address] [facility] Comment on above: Performed By: #### C OVID-19 GERTRUDE, SOFIANEG #### [address] Hemoglobin (Bld) [Mass/Vol] 14.2 g/dL Normal 13.0-17.[address] [facility] Comment on above: Performed By: #### C OVID-19 GERTRUDE, SOFIANEG #### [address] Lymphocytes (Bld) [#/Vol] 1.1 10*3/uL Normal 1.00-4.[address] [facility] Comment on above: Performed By: #### C OVID-19 GERTRUDE, SOFIANEG #### [facility] [address] [place] [address] [place] Lymphocytes/100 WBC (Bld) 22.7 % Normal . [facility] Comment on above: Performed By: #### C OVID-19 GERTRUDE, SOFIANEG #### [facility] [address] MCH (RBC) [Entitic mass] 30.4 pg Normal 27.5-35.[address] [facility] Comment on above: Performed By: #### C OVID-19 GERTRUDE, SOFIANEG #### [address] MCV (RBC) [Entitic vol] 89.7 fL Normal 83.5-[address] [facility] Comment on above: Performed By: #### C OVID-19 GERTRUDE, SOFIANEG #### [address] Mean Corpuscular HGB Conc 33.9 g/dL Normal 32.5-35.[address] [facility] Comment on above: Performed By: #### C OVID-19 EGRTRUDE, SOFIANEG #### [place] [address] [place] Monocytes (Bld) [#/Vol] 0.5 10*3/uL Normal 0.0-0.[address] [facility] Comment on above: Performed By: #### C OVID-19 GERTRUDE, SOFIANEG #### [facility] [address] [place] [address] [place] Monocytes/100 WBC (Bld) 11.2 % Normal . [facility] Comment on above: Performed By: #### C OVID-19 GERTRUDE, SOFIANEG #### [facility] [address] [place] [address] [place] Neutrophils (Bld) [#/Vol] 3.1 10*3/uL Normal 1.8-7.[address] [facility] Comment on above: Performed By: #### C OVID-19 GERTRUDE, SOFIANEG #### [facility] [address] [place] [address] [place] Neutrophils/100 WBC (Bld) 63.8 % Normal . [facility] Comment on above: Performed By: #### C OVID-19 GERTRUDE, SOFIANEG #### [facility] [address] [place] [address] Nucleated RBC/100 WBC (Bld) [Ratio] 0.1 % Normal 0-0.[address] [facility] Comment on above: Performed By: #### C OVID-19 GERTRUDE, SOFIANEG #### [address] Platelet mean volume (Bld) [Entitic vol] 8.2 fL Normal 6.6-10.[address] [facility] Comment on above: Performed By: #### C OVID-19 GERTRUDE, SOFIANEG #### [address] Platelets (Bld) [#/Vol] 243 10*3/uL Normal 150-[address] [facility] Comment on above: Performed By: #### C OVID-19 GERTRUDE, SOFIANEG #### [place] [address] [place] RBC (Bld) [#/Vol] 4.67 10*6/uL Normal 3.90-5.60 [facility] Comment on above: Performed By: #### C OVID-19 GERTRUDE, SOFIANEG #### [address] WBC (Bld) [#/Vol] 4.8 10*3/uL Normal 4.5-11.0 [facility] Comment on above: Performed By: #### C OVID-19 GERTRUDE, SOFIANEG #### [address] ECG 12 lead ECGon 06-18-2021 ECG 12 lead ECG [facility] [place] [address] [place] [address] Electrocardiograph Report Signed Patient: Fredrick Stroud MR#: [id number] : [id number] Acct:[id number] Age/Sex: 70 / M ADM Date: 06/18/21 [...] was found Confirmed by WISAM TORRE MD ([facility]) on 06/19/2021 10:06:42 AM Referred By: RAMÓN DHILLON Electronically Signed By:WISAM TORRE MD Transcribed By: MUS Signed By Wisam Torre MD 0 06/19/[address] [facility] Fructosamineon 06-18-2021 Fructosamine 217 umol/L Normal 0-[address] [facility] Comment on above: Result Comment: Publ ished reference interval for apparently healthy subjects between age 20 and 60 is 205 - 285 umol/L and in a poorly controlled diabetic population is 228 - 563 umol/L with a mean of 396 umol/L. Performed at: [facility] [place] [id number] Surveillance Systems Engineer: Benton Caro PhD, Phone: [phone] PERFORMED BY: [place] [address] PATHOLOGIST OUTSIDE INDUSTRIAL SALES REPRESENTATIVE EYAD HOWARD M.D. Performed By: #### C OVID-19 YAIR LOREDOEG #### [address] PST Type and Screenon 2021 ABO and Rh group Nom (Bld) Blood group O Rh(D) positive Normal [facility] Comment on above: Order Comment: Date of Surgery: [id number] Result Comment: PERF ORMED BY: [address] [id number] PATHOLOGIST OUTSIDE INDUSTRIAL SALES REPRESENTATIVE EYAD HOWARD M.D. Urinalysison 06-18-2021 Appearance (U) Clear Normal Clear [facility] Comment on above: Order Comment: Name Collection Type:: Clean-Voided Midstream Performed By: #### C BC, CMP, HS TROP, BNP #### [facility] [address] [place] [address] Bilirubin,Urine Negative Normal Negative [facility] Comment on above: Order Comment: Name Collection Type:: Clean-Voided Midstream Performed By: #### C BC, CMP, HS TROP, BNP #### [address] Color (U) Yellow Normal Yellow [facility] Comment on above: Order Comment: Name Collection Type:: Clean-Voided Midstream Performed By: #### C BC, CMP, HS TROP, BNP #### [facility] [address] [place] [address] Glucose Ql (U) Normal Normal Normal [facility] Comment on above: Order Comment: Name Collection Type:: Clean-Voided Midstream Performed By: #### C BC, CMP, HS TROP, BNP #### [facility] [address] [place] [address] [place] Ketones Ql (U) Negative Normal Negative [facility] Comment on above: Order Comment: Name Collection Type:: Clean-Voided Midstream Performed By: #### C BC, CMP, HS TROP, BNP #### [facility] [address] [place] [address] [place] Leukocyte esterase Test strip Ql (U) Negative Normal Negative [facility] Comment on above: Order Comment: Name Collection Type:: Clean-Voided Midstream Performed By: #### C BC, CMP, HS TROP, BNP #### [facility] [address] [place] [address] [place] Nitrite,Urine Negative Normal Negative [facility] Comment on above: Order Comment: Name Collection Type:: Clean-Voided Midstream Performed By: #### C BC, CMP, HS TROP, BNP #### [address] [place] [address] [place] Occult Blood,Urine Negative Normal Negative [facility] Comment on above: Order Comment: Name Collection Type:: Clean-Voided Midstream Result Comment: PERF ORMED BY: [place] [address] PATHOLOGIST OUTSIDE INDUSTRIAL SALES REPRESENTATIVE EYAD HOWARD M.D. Performed By: #### C BC, CMP, HS TROP, BNP #### [address] pH (U) 7.5 [pH] Normal 5.0-9.[address] [facility] Comment on above: Order Comment: Name Collection Type:: Clean-Voided Midstream Performed By: #### C BC, CMP, HS TROP, BNP #### [address] Protein,Urine Negative Normal Negative [facility] Comment on above: Order Comment: Name Collection Type:: Clean-Voided Midstream Performed By: #### C BC, CMP, HS TROP, BNP #### [address] Specificy Chicken,Urine 1.023 Normal 1.001-1.[address] [facility] Comment on above: Order Comment: Name Collection Type:: Clean-Voided Midstream Performed By: #### C BC, CMP, HS TROP, BNP #### [address] Urobilinogen,Urine Normal Normal Normal [facility] Comment on above: Order Comment: Name Collection Type:: Clean-Voided Midstream Performed By: #### C BC, CMP, HS TROP, BNP #### [address] Urinalysis - AUTOMATEDon Appearance (U) CLEAR Your[facility] Other Bilirubin Ql (U) Negative [facility] Other Color (U) YELLOW [employer] [facility] Other Glucose Ql (U) Negative Your[facility] Other Hemoglobin Ql (U) Negative frents Other Ketones Ql (U) Negative Your[facility] Other Leukocyte esterase Test strip Ql (U) Negative [employer] [facility] Other Nitrite Ql (U) Negative Your[facility] Other pH (U) 6.0 [pH] [employer] [facility] Other Protein Ql (U) Negative [facility] Other Specific gravity (U) [Rel density] 1.010 [employer] Other Urobilinogen (U) [Mass/Vol] 0.2 mg/dL [facility] Other Urinalysis - AUTOMATED [employer] Other Vital Signs Date Time Vital Sign Value Performing Clinician Facility 02-25-2023 13:00-0500 Body temperature 98.2 [degF] Vivian Espinoza MD Work Phone: [facility] 02-25-2023 13:00-0500 Diastolic blood pressure 81 mm[Hg] Vivian Espinoza MD Work Phone: [facility] 02-25-2023 13:00-0500 Heart rate 79 /min Vivian Espinoza MD Work Phone: [facility] 02-25-2023 13:00-0500 Respiratory rate 18 /min Vivian Espinoza MD Work Phone: [facility] 02-25-2023 13:00-0500 SaO2% (BldA) [Mass fraction] 97 % Vivian Espinoza MD Work Phone: [facility] 02-25-2023 13:00-0500 Systolic blood pressure 125 mm[Hg] Vivian Espinoza MD Work Phone: [facility] 02-16-2023 22:54-0500 SaO2% (BldA) [Mass fraction] 96.1 % Vivian Espinoza MD Work Phone: [facility] 02-16-2023 03:00-0500 Body height 167.6 cm Vivian Espinoza MD [facility] 02-16-2023 03:00-0500 Body mass index (BMI) [Ratio] 42.52 kg/m2 Vivian Espinoza MD Work Phone: [facility] 02-16-2023 03:00-0500 Body weight 119.5 kg [facility] 02-15-2023 20:06-0500 Body temperature 97.52 [degF] [facility] 02-15-2023 20:06-0500 Diastolic blood pressure 63 mm[Hg] [facility] 02-15-2023 20:06-0500 Heart rate 70 /min [facility] 02-15-2023 20:06-0500 Mean blood pressure 76 mm[Hg] [facility] 02-15-2023 20:06-0500 Respiratory rate 18 /min [facility] 02-15-2023 20:06-0500 SaO2% (BldA) [Mass fraction] 94 % [facility] 02-15-2023 20:06-0500 Systolic blood pressure 101 mm[Hg] [facility] 02-15-2023 20:00-0500 Diastolic blood pressure 74 mm[Hg] [facility] 02-15-2023 20:00-0500 Heart rate 63 /min [facility] 02-15-2023 20:00-0500 Hourly Rounding [facility] 02-15-2023 20:00-0500 Promise to Return [facility] 02-15-2023 20:00-0500 SaO2% (BldA) [Mass fraction] 100 % [facility] 02-15-2023 20:00-0500 Systolic blood pressure 112 mm[Hg] [facility] 02-15-2023 19:57-0500 Diastolic blood pressure 78 mm[Hg] [facility] 02-15-2023 19:57-0500 Heart rate 101 /min [facility] 02-15-2023 19:57-0500 Mean blood pressure 90 mm[Hg] [facility] 02-15-2023 19:57-0500 Respiratory rate 14 /min [facility] 02-15-2023 19:57-0500 SaO2% (BldA) [Mass fraction] 98 % [facility] 02-15-2023 19:57-0500 Systolic blood pressure 113 mm[Hg] [facility] 02-15-2023 19:47-0500 Heart rate 85 /min [facility] 02-15-2023 19:47-0500 Mean blood pressure 49 mm[Hg] [facility] 02-15-2023 19:47-0500 Respiratory rate 14 /min [facility] 02-15-2023 19:34-0500 Blood Pressure Location [facility] 02-15-2023 19:34-0500 Body temperature 97.52 [degF] [facility] 02-15-2023 19:34-0500 Heart rate 68 /min [facility] 02-15-2023 19:19-0500 Heart rate 67 /min [facility] 02-15-2023 19:00-0500 Hourly Rounding [facility] 02-15-2023 19:00-0500 Promise to Return [facility] 02-15-2023 18:45-0500 Body temperature 97.52 [degF] [facility] 02-15-2023 18:17-0500 Body temperature 97.52 [degF] [facility] 02-15-2023 18:00-0500 Hourly Rounding [facility] 02-15-2023 18:00-0500 Promise to Return [facility] 02-15-2023 16:28-0500 Body temperature 97.88 [degF] [facility] 08-30-2022 08:53-0400 Body height 167.64 cm Karina Melgar Work Phone: [facility] [employer] [facility] 250 DO Work Phone: 08-30-2022 08:53-0400 Body mass index (BMI) [Ratio] 38.74 kg/m2 Karina Melgar Work Phone: [facility] 250 DO Work Phone: 08-30-2022 08:53-0400 Body surface area Derived from formula 2.16 m2 Kraina Guardadoon Work Phone: [facility] 250 DO Work Phone: 08-30-2022 08:53-0400 Body weight 108.86 kg Karina Melgar Work Phone: [facility] 250 DO Work Phone: 08-30-2022 08:53-0400 Diastolic blood pressure 62 mm[Hg] Karina Melgar Work Phone: [facility] 250 DO Work Phone: 08-30-2022 08:53-0400 Heart rate 55 /min Karina Guardadoon Work Phone: [facility] 250 DO Work Phone: 08-30-2022 08:53-0400 Systolic blood pressure 128 mm[Hg] Karina Guardadoon Work Phone: [facility] 250 DO Work Phone: 08-13-2022 13:21-0400 Body height 167.64 cm Karina Melgar Work Phone: [facility] 250 DO Work Phone: 08-13-2022 13:21-0400 Body mass index (BMI) [Ratio] 39.87 kg/m2 Karina Melgar Work Phone: [facility] 250 DO Work Phone: 08-13-2022 13:21-0400 Body surface area Derived from formula 2.19 m2 Karina Melgar Work Phone: [facility] 250 DO Work Phone: 08-13-2022 13:21-0400 Body weight 112.04 kg Karina Melgar Work Phone: [facility] 250 DO Work Phone: 08-13-2022 13:21-0400 Diastolic blood pressure 70 mm[Hg] Karina Lisa Ramón Work Phone: [facility] 250 DO Work Phone: 08-13-2022 13:21-0400 Heart rate 70 /min Karina Lisa Ramón Work Phone: [facility] 250 DO Work Phone: 08-13-2022 13:21-0400 Systolic blood pressure 136 mm[Hg] Karina Lisa Ramón Work Phone: [facility] 250 DO Work Phone: 07-05-2022 09:08-0400 Body height 167.64 cm Karina Lisa Ramón Work Phone: [facility] 600 DO Work Phone: 07-05-2022 09:08-0400 Body mass index (BMI) [Ratio] 39.54 kg/m2 Karina Lisa Ramón Work Phone: [facility] 600 DO Work Phone: 07-05-2022 09:08-0400 Body surface area Derived from formula 2.18 m2 Karina Lisa Ramón Work Phone: [facility] 600 DO Work Phone: 07-05-2022 09:08-0400 Body weight 111.13 kg Karina Lisa Ramón Work Phone: [facility] 600 DO Work Phone: 07-05-2022 09:08-0400 Diastolic blood pressure 70 mm[Hg] Karina Guardadoon Work Phone: [facility] 600 DO Work Phone: 07-05-2022 09:08-0400 Heart rate 72 /min Karina Lisa Ramón Work Phone: [facility] 600 DO Work Phone: 07-05-2022 09:08-0400 Systolic blood pressure 138 mm[Hg] Karina Lisa Ramón Work Phone: [facility] 600 DO Work Phone: 06-20-2022 16:24-0400 Body height 167.64 cm Karina Lisa Ramón Work Phone: [facility] 250 DO Work Phone: 06-20-2022 16:24-0400 Body mass index (BMI) [Ratio] 40.03 kg/m2 Karina Lisa Ramón Work Phone: [facility] 250 DO Work Phone: 06-20-2022 16:24-0400 Body surface area Derived from formula 2.19 m2 Karina Lisa Ramón Work Phone: [facility] 250 DO Work Phone: 06-20-2022 16:24-0400 Body weight 112.49 kg Karina Lisa Ramón Work Phone: [facility] 250 DO Work Phone: 06-20-2022 16:24-0400 Diastolic blood pressure 102 mm[Hg] Karina Lisa Ramón Work Phone: [facility] 250 DO Work Phone: 06-20-2022 16:24-0400 Heart rate 76 /min Karnia Lisa Ramón Work Phone: [facility] 250 DO Work Phone: 06-20-2022 16:24-0400 Systolic blood pressure 162 mm[Hg] Karina Guardadoon Work Phone: [facility] 250 DO Work Phone: 05-10-2022 14:46-0400 Body height 167.64 cm Karina Lisa Melgar Work Phone: [facility] [place] Work Phone: 05-10-2022 14:46-0400 Body mass index (BMI) [Ratio] 40.19 kg/m2 Karina Guardadoon Work Phone: [facility] [facility] [place] Work Phone: 05-10-2022 14:46-0400 Body surface area Derived from formula 2.2 m2 Karina Guardadoon Work Phone: [facility] [facility] [place] Work Phone: 05-10-2022 14:46-0400 Body weight 112.95 kg Karina Guardadoon Work Phone: [facility] [place] Work Phone: 05-10-2022 14:46-0400 Diastolic blood pressure 80 mm[Hg] Karina Guardadoon Work Phone: [facility] [facility] [place] Work Phone: 05-10-2022 14:46-0400 Heart rate 61 /min Karina Melgar Work Phone: [facility] [place] Work Phone: 05-10-2022 14:46-0400 Systolic blood pressure 130 mm[Hg] Karina Melgar Work Phone: [facility] [place] Work Phone: 05-02-2022 13:26-0500 Body height 167.64 cm Karina Melgar Work Phone: [facility] 600 DO Work Phone: 05-02-2022 13:26-0500 Body mass index (BMI) [Ratio] 40.19 kg/m2 Karina Melgar Work Phone: [facility] 600 DO Work Phone: 05-02-2022 13:26-0500 Body surface area Derived from formula 2.2 m2 Karina Lisa Ramón Work Phone: [facility] 600 DO Work Phone: 05-02-2022 13:26-0500 Body weight 112.95 kg Karina Lisa Ramón Work Phone: [facility] 600 DO Work Phone: 05-02-2022 13:26-0500 Diastolic blood pressure 64 mm[Hg] Karina Lisa Ramón Work Phone: [facility] 600 DO Work Phone: 05-02-2022 13:26-0500 Heart rate 62 /min Karina Lisa Ramón Work Phone: [facility] 600 DO Work Phone: 05-02-2022 13:26-0500 Systolic blood pressure 116 mm[Hg] Karina Lisa Ramón Work Phone: [facility] 600 DO Work Phone: 04-29-2022 11:48-0500 Body height 167.64 cm Karina Lisa Ramón Work Phone: [facility] 600 DO Work Phone: 04-29-2022 11:48-0500 Body mass index (BMI) [Ratio] 40.09 kg/m2 Karina Lisa Ramón Work Phone: [facility] 600 DO Work Phone: 04-29-2022 11:48-0500 Body surface area Derived from formula 2.19 m2 Karina Guardadoon Work Phone: [facility] 600 DO Work Phone: 03-06-2023 11:48-0500 Body weight 112.67 kg Karina Melgar Work Phone: [facility] [employer] 600 DO Work Phone: 04-29-2022 11:48-0500 Diastolic blood pressure 80 mm[Hg] Karina Guardadoon Work Phone: [facility] 600 DO Work Phone: 04-29-2022 11:48-0500 Heart rate 60 /min Karina Guardadoon Work Phone: [facility] 600 DO Work Phone: 04-29-2022 11:48-0500 Systolic blood pressure 122 mm[Hg] Karina Melgar Work Phone: [facility] 600 DO Work Phone: 04-18-2022 14:45-0500 Body height 167.64 cm Karina Melgar Other [employer] [facility] Other 04-18-2022 14:45-0500 Body mass index (BMI) [Ratio] 39.54 kg/m2 Karina Melgar Other [employer] [facility] Other 04-18-2022 14:45-0500 Body weight 111.13 kg Karina Melgar Other [employer] [facility] Other 04-18-2022 14:45-0500 Diastolic blood pressure 76 mm[Hg] Karina Melgar Other [employer] [facility] Other 04-18-2022 14:45-0500 Systolic blood pressure 122 mm[Hg] Karina Melgar Other [employer] [facility] Other 03-11-2022 18:35-0500 Diastolic blood pressure 79 mm[Hg] MD Karina Melgar Work Phone: [facility] 03-11-2022 18:35-0500 Heart rate 74 /min MD Karina Melgar Work Phone: [facility] 03-11-2022 18:35-0500 Respiratory rate 20 /min MD Karina Melgar Work Phone: [facility] 03-11-2022 18:35-0500 SaO2% (BldA) [Mass fraction] 97 % MD Karina Melgar Work Phone: [facility] 03-11-2022 18:35-0500 Systolic blood pressure 137 mm[Hg] MD Karina Melgar Work Phone: [facility] 03-11-2022 13:03-0500 Body height 167.64 cm MD Karina Mlegar Work Phone: [facility] 03-11-2022 13:03-0500 Body temperature 98.7 [degF] MD Karina Melgar Work Phone: [facility] 03-11-2022 13:03-0500 Body weight 116 kg MD Karina Melgar Work Phone: [facility] 06-14-2021 11:15-0400 Body height 167.64 cm Shahriar Franciscoisle II Other [id number] [facility] [employer] Other 06-14-2021 11:15-0400 Body mass index (BMI) [Ratio] 40.02 kg/m2 Shahriar Caspian II Other [employer] [facility] Other 06-14-2021 11:15-0400 Body weight 112.49 kg Shahriar Alejo II Other [employer] [facility] Other 05-24-2021 15:30-0400 Body height 167.64 cm Karina Melgar Other [employer] [facility] Other 05-24-2021 15:30-0400 Body mass index (BMI) [Ratio] 40.19 kg/m2 Karina Melgar Other [employer] [facility] Other 05-24-2021 15:30-0400 Body weight 112.95 kg Karina Melgar Other [employer] [facility] Other 05-24-2021 15:30-0400 Diastolic blood pressure 80 mm[Hg] Karina Melgar Other [employer] [facility] Other 05-24-2021 15:30-0400 Systolic blood pressure 132 mm[Hg] Karina Melgar Other [employer] [facility] Other 03-21-2021 15:00-0500 Body height 167.64 cm Shahriar [employer] Other [employer] [facility] Other 03-21-2021 15:00-0500 Body mass index (BMI) [Ratio] 40.51 kg/m2 Shahriar Caspian II Other [employer] [facility] Other 03-21-2021 15:00-0500 Body weight 113.85 kg Shahriar Caspian II Other [employer] [facility] Other 02-13-2021 15:45-0500 Body height 167.64 cm Karina Melgar Other [employer] [facility] Other 02-13-2021 15:45-0500 Diastolic blood pressure 80 mm[Hg] Karina Melgar Other [employer] [facility] Other 02-13-2021 15:45-0500 Systolic blood pressure 144 mm[Hg] Karina Melgar Other [employer] [facility] Other 01-29-2021 14:45-0500 Body height 167.64 cm Karina Melgar Other [employer] [facility] Other 01-29-2021 14:45-0500 Body mass index (BMI) [Ratio] 40.64 kg/m2 Karina Melgar Other [employer] [facility] Other 01-29-2021 14:45-0500 Body weight 114.22 kg Karina Melgar Other [employer] [facility] Other 01-29-2021 14:45-0500 Diastolic blood pressure 92 mm[Hg] Karina Melgar Other [employer] [facility] Other 01-29-2021 14:45-0500 SaO2% (BldA) [Mass fraction] 98 % Karina Melgar Other [employer] [facility] Other 01-29-2021 14:45-0500 Systolic blood pressure 148 mm[Hg] Karina Ramón Other [employer] [facility] Other Encounters Encounter Date Encounter Type Care Provider Facility Start: 04-07-2023 Clinisync Result Encounter Lola Seth MD Work Phone: [facility] External Department Unsolicited Start: 04-07-2023 [facility] Result Encounter Lola Seth MD Work Phone: [facility] External Department Unsolicited Start: 04-04-2023 [facility] Result Encounter Lola Seth MD Work Phone: [facility] External Department Unsolicited Start: 04-04-2023 [facility] Result Encounter Lola Seth MD Work Phone: [facility] External Department Unsolicited Start: 04-02-2023 [facility] Result Encounter Lia Dodge CHILD CARE ATTENDANT Work Phone: [facility] External Department Unsolicited Start: 04-02-2023 [facility] Result Encounter Lia Dodge CHILD CARE ATTENDANT Work Phone: [facility] External Department Unsolicited Start: 03-10-2023 End: 03-10-2023 Patient encounter procedure Toni Goldberg MD Work Phone: [facility] Comment on above: Aftercare following surgery (Primary Dx); Closed fracture of left femur, unspecified fracture morphology, unspecified portion of femur, initial encounter ([facility]) Start: 02-21-2023 Evaluation and management of inpatient JUSTICE PRETTY Facility:[facility] Start: 02-18-2023 Evaluation and management of inpatient UNKNOWN PROVIDER Facility:[facility] Start: 02-18-2023 Patient encounter status Ip 3 [facility] Work Phone: Start: 02-18-2023 ambulatory UNKNOWN PROVIDER Facili ty:[facility] Start: 02-18-2023 End: 02-18-2023 Subsequent hospital visit by physician Ip Aluminum Molder 3 [facility] Non Invasive Cardiology Start: 02-17-2023 Evaluation and management of inpatient UNKNOWN PROVIDER Facility:[facility] Start: 02-16-2023 Evaluation and management of inpatient JUSTICE PRETTY Facility:[facility] Start: 02-16-2023 Emergency department patient visit UNKNOWN PROVIDER Facility:[facility] Start: 02-15-2023 Emergency department patient visit UNKNOWN PROVIDER Facility:[facility] Start: 02-15-2023 End: 02-15-2023 ambulatory UNKNOWN PROVIDER Facility:[facility] Start: 02-15-2023 End: 02-25-2023 Evaluation and management of inpatient Vivian Espinoza MD Work Phone: [address] Start: 02-15-2023 End: 02-25-2023 Patient encounter status Vivian Espinoza MD [facility]: Start: 02-15-2023 End: 02-16-2023 Emergency department patient visit Justice Pretty Facility:[facility] Start: 02-15-2023 End: 02-15-2023 Emergency department patient visit Justice Pretty [facility] Start: 08-30-2022 Office outpatient vi sit 25 minutes Karina Melgar Work Phone: [facility] 250 DO Work Phone: Start: 08-13-2022 ambulatory Christopher Porter Facilit y:[id number] Start: 08-02-2022 ambulatory Christopher Porter Facilit y: Start: 08-02-2022 End: 08-02-2022 ambulatory Christopher Porter Facility:[facility] Start: 07-05-2022 ambulatory Christopher Porter Facilit y: Start: 07-05-2022 Office outpatient vi sit 25 minutes Karina Melgar Work Phone: [facility] 600 DO Work Phone: Start: 06-20-2022 Patient encounter procedure Karina Melgar Work Phone: [facility] 250 DO Work Phone: Start: 06-20-2022 ambulatory Christopher Porter Facilit y: Start: 06-12-2022 Chart Update Karina floyd Work Phone: [facility] 250 DO Work Phone: Start: 06-11-2022 End: 06-11-2022 ambulatory Christopher Porter Facility:[facility] Start: 06-11-[address] Karina Guardadoon Facility:[id number] Start: 05-28-2022 Patient encounter procedure Karina Melgar Work Phone: [facility] 250 DO Work Phone: Start: 05-10-2022 Patient encounter procedure Karina Melgar Work Phone: [facility] 250A [place] Work Phone: Start: 05-10-2022 ambulatory Christopher Porter Facilit y: Start: 05-03-2022 AUDIT Karina floyd Work Phone: [facility] 250 DO Work Phone: Start: 05-02-2022 Patient encounter procedure Karina Melgar Work Phone: [facility] 600 DO Work Phone: Start: 05-02-2022 ambulatory Christopher Porter Facilit y: Start: 04-29-2022 Office outpatient vi sit 25 minutes Karina Melgar Work Phone: [facility] 600 DO Work Phone: Start: 04-29-2022 ambulatory Christopher Porter Facilit y: Start: 04-18-2022 End: 04-18-2022 ambulatory Karina Melgar Other [facility] [employer] Other Start: 04-18-2022 Office outpatient vi sit 15 minutes Karina Melgar [facility] Start: 03-29-2022 End: 03-04-2023 [facility] Start: 03-29-2022 End: 03-03-2023 Recurring Mae Rodrigez [facility] Start: 03-27-2022 End: 03-27-2022 ambulatory Karina Melgar Facility:[facility] Start: 03-27-2022 End: 03-27-2022 Patient encounter procedure MD Karina Melgar Work Phone: [facility] Work Phone: Start: 03-27-2022 End: 03-27-2022 ambulatory MD Karina Melgar Work Phone: [facility] Work Phone: Start: 03-27-2022 Telephone encounter Sejal Nikolay [facility] Start: 03-25-2022 End: 03-25-2022 ambulatory Sejal Nikolay Other [facility] [employer] Other Start: 03-25-2022 Telephone encounter Sejal Nikolay [facility] Start: 03-21-2022 ambulatory Christopher Porter Facilit y: Start: 03-14-2022 End: 03-14-2022 ambulatory Sejal Nikolay Other [facility] [employer] Other Start: 03-14-2022 Telephone encounter Sejal Nikolay [facility] Start: 03-12-2022 End: 03-12-2022 ambulatory Karina Melgar Other [employer] [facility] Other Start: 03-12-2022 Telephone encounter Karina cabrera [facility] Start: 03-11-2022 End: 03-11-2022 Emergency department patient visit Yo Blood Facility:[facility] Start: 03-11-2022 End: 03-11-2022 Emergency department patient visit MD Karina Melgar Work Phone: [facility] Work Phone: Start: 09-26-2021 End: 09-26-2021 ambulatory Shahriar M Caspian II Facility:[facility] Start: 08-28-2021 End: 08-28-2021 ambulatory Shahriar Caspian II Other [employer] [facility] Other Start: 08-28-2021 Telephone encounter Shahriar Alejo II [facility] Start: 08-15-2021 (Post-Op) Post-Op Shahriar Caspian II [facility] Start: 08-15-2021 End: 08-15-2021 ambulatory Shahriar M Caspian II [employer] [facility] Other Start: 07-18-2021 (Post-Op) Post-Op Shahriar Alejo II [facility] Start: 07-18-2021 End: 07-18-2021 ambulatory Shahriar Alejo II Other [employer] [facility] Other Start: 07-02-2021 End: 07-03-2021 ambulatory Kate Nielson Facility:[facility] Start: 06-28-2021 End: 06-28-2021 ambulatory Shahriar M Alejo II Facility:[facility] Start: 06-22-2021 (Prolonged) Prolonge d Services Shahriar Caspian II [facility] Start: 06-22-2021 End: 06-22-2021 ambulatory Shahriar Caspian II Other [employer] [facility] Other Start: 06-18-2021 End: 06-18-2021 ambulatory Shahriar Dhillon II Facility:[facility] Start: 06-14-2021 End: 06-14-2021 ambulatory Shahriar Crumple II Other [employer] [facility] Other Start: 06-14-2021 Encounter for other preprocedural examination Shahriar Crumple II [facility] Start: 06-14-2021 Patient encounter procedure Shahriar Caspian II [facility] Start: 05-24-2021 End: 05-24-2021 ambulatory Karina Melgar Other [employer] Other Start: 05-24-2021 Encounter for other preprocedural examination Karina Melgar [facility] Start: 05-24-2021 Office outpatient vi sit 15 minutes Karina Melgar [facility] Start: 03-22-2021 End: 03-22-2021 ambulatory Lynn Gurrola Other [employer] [facility] Other Start: 03-22-2021 Encounter for other preprocedural examination Shahriar Crumple II [facility] Start: 03-22-2021 Telephone encounter Shahriar Crumple II [facility] Start: 03-21-2021 End: 03-21-2021 ambulatory Shahriar Crumple II Other [employer] [facility] Other Start: 03-21-2021 Office outpatient ne w 45 minutes Shahriar Franciscoisle II [facility] Start: 02-13-2021 End: 02-13-2021 ambulatory Karina Melgar Other [employer] Other Start: 02-13-2021 Office outpatient vi sit 15 minutes Karina Melgar [facility] Start: 01-29-2021 End: 01-29-2021 ambulatory Karina Melgar Other [employer] Other Start: 01-29-2021 Office outpatient vi sit 15 minutes Karina [facility] Start: 04-01-2020 End: 04-01-2020 Orders Only Alina Bueno Work Phone: [facility] Procedures Date Procedure Procedure Detail Performing Clinician Start: 04-07-2023 SRM[facility] PROTHROMBIN T NORAH INR W/O COUM Lola Seth MD Work Phone: Start: 04-04-2023 [facility] PROTHROMBIN T NORAH INR W/O COUM Lola Seth MD Work Phone: Start: 04-02-2023 [facility] PROTHROMBIN T NORAH INR W/O COUM Lia Dodge CHILD CARE ATTENDANT Work Phone: Start: 02-25-2023 Prothrombin time Yelena [...] Start: 02-18-2023 Blood count complete automated Kevinmansi Veeal DO Work Phone: Start: 02-18-2023 Fluoroscopy up [...] Surgery: [id number] Result Comment: PERF ORMED BY: [address] [place] [address] PATHOLOGIST OUTSIDE INDUSTRIAL SALES REPRESENTATIVE EYAD HOWARD M.D. Start: 02-25-2016 Total colonoscopy Devon s Maria L Melgar Work Phone: Arthroplasty of knee Karina Melgar Work Phone: Cardioversion Karina floyd Work Phone: Excision of cyst Karina miur Work Phone: Hernia repair Karina floyd Work Phone: History of hernia repair Catracho Pretty Procedure on prostate Karina Melgar Work Phone: Total replacement of hip Tho marvin Melgar Work Phone: Plan of Treatment Date Care Activity Detail Author Start: 04-11-2023 End: 04-11-2023 Patient encounter procedure 04/11/2023 10:30 AM EST Office Visit [facility] [address] [place] [address] Toni Goldberg MD [address] [place] [address] [facility] Start: 03-11-2023 FUV, Provider: Christopher Porter, Status: Pen, Time: 8:40 AM FUV, Provider: Christopher Porter, Status: Pen, Time: 8:40 AM -[facility] 250 DO Work Phone: Start: 10-25-2022 Influenza vaccination [facility] Start: 08-30-2022 FUV, Provider: Christopher Porter, Status: Pen, Time: 8:40 AM FUV, Provider: Christopher Porter, Status: Pen, Time: 8:40 AM -[facility] 600 DO Work Phone: Start: 07-18-2022 SURGNONUH, Provider: Christopher Porter, Status: Pen, Time: 10:00 AM SURGNONUH, Provider: Christopher Porter, Status: Pen, Time: 10:00 AM -[facility] 600 DO Work Phone: Start: 07-05-2022 FUV, Provider: Christopher Porter, Status: Pen, Time: 8:40 AM FUV, Provider: Christopher Porter, Status: Pen, Time: 8:40 AM -[facility] 250 DO Work Phone: Start: 06-20-2022 EKG, Provider: ESTELA CLARKE VIDEO GAME CREATOR 1,[id number], Status: Pen, Time: 1:00 PM EKG, Provider: ESTELA CLARKE VIDEO GAME CREATOR 1,[id number], Status: Pen, Time: 1:00 PM -[facility] 250 DO Work Phone: Start: 06-11-2022 SURGNONUH, Provider: Christopher Porter, Status: Pen, Time: 2:00 PM SURGNONUH, Provider: Christopher Porter, Status: Pen, Time: 2:00 PM -[facility] 250 DO Work Phone: Start: 06-04-2022 FUV, Provider: Christopher Porter, Status: Pen, Time: 8:20 AM FUV, Provider: Christopher Porter, Status: Pen, Time: 8:20 AM [facility] 600 DO Work Phone: Start: 05-10-2022 EKG, Provider: ESTELA CLARKE VIDEO GAME CREATOR 1,[id number], Status: Pen, Time: 2:00 PM EKG, Provider: ESTELA CLARKE VIDEO GAME CREATOR 1,[id number], Status: Pen, Time: 2:00 PM [facility] 250 DO Work Phone: Start: 05-02-2022 EKG, Provider: ESTELA HAMPTON VIDEO GAME CREATOR 1,[id number], Status: Pen, Time: 1:00 PM EKG, Provider: ESTELA HAMPTON VIDEO GAME CREATOR 1,[id number], Status: Pen, Time: 1:00 PM [facility] 600 DO Work Phone: Start: 10-26-2019 Influenza vaccination given Sequential Influenza Vaccine (#1) [facility] Start: 11-24-2014 [facility] Start: 2013 [facility] Start: [facility] Start: 2008 RSV vaccine (optional 60+ years) RSV vaccine (optional 60+ years) [facility] Start: 2008 [facility] Start: 1998 Administration of herpes zoster vaccine Zoster Vaccines (1 of 2) [facility] Start: 1998 Screening for malignant neoplasm of colon [facility] Start: 1998 Shingles (RZV) Vaccine (1 of 2) [facility] Start: 1993 Screening for malignant neoplasm of colon [facility] Start: 11-29-1983 Lipid panel [facility] Start: 1966 Hepatitis C antibody, confirmatory test Hepatitis C Screening [facility] Start: 1966 Hepatitis C screening [facility] Start: 1966 Tetanus + diphtheria + acellular pertussis vaccine (product) [facility] Start: 1964 COVID-19 Vaccine (1 of 2) COVID-19 Vaccine (1 of 2) [facility] Start: 1960 Adolescent depression screening assessment Depression Screening (PHQ9) [facility] Start: 1954 Pneumococcal vaccination Pneumococcal Vaccine(s) (65+ yrs) (1 of 2 - PCV) [facility] Start: 11-29-1951 History and physical examination, annual for health maintenance Wellness Visit [facility] Start: 05-29-1949 COVID-19 Vaccine (#1) COVID-19 Vaccine (#1) [facility] Start: 05-29-1949 [facility] Start: 1948 Fall risk assessment Falls Risk Assessment [facility] Start: 1948 Prostate specific antigen measurement PSA Level [facility] Start: 1948 Screening for malignant neoplasm of colon [facility] Start: 1948 Tetanus vaccination Tetanus: Every 10yrs [facility] Assay of magnesium [facility] Assay of phosphorus inorganic [facility] Basic metabolic 2000 panel - Serum or Plasma [facility] Work Phone: CBC panel - Blood by Automated count [facility] End: 02-16-2023 CT Thigh - left WO contrast [facility] Work Phone: Patient Education Atrial Fibrill ation Cough, Adult ED Bronchitis, Adult ED [facility] Work Phone: Patient referral [facility] Work Phone: End: 02-18-2023 RED BLOOD CELL COMPONENT [facility] End: 02-17-2023 Smr prim src gram/giemsa stain bct fungi/cell [facility] Work Phone: Immunizations Immunization Date Immunization Notes Care Provider Fa cility NEGATED: Highlighted row has not occurred! 6 influenza, seasonal, injectable Patient Objection Karina Melgar Other [employer] Other Payers Date Payer Category Payer Unknown [id number] 2023 Unknown XX 2022 Unknown 2021 Self-pay [id number] 2021 Unknown [id number] 2.1 [id number] 2013 Medicare [id number] 2.1 6.840.1.102841.19 2013 Medicare [id number]. [id number] 1948 Unknown [id number] 2.16. 840.1.870200.3.579.2.356 1948 Unknown [id number] 2.16. 840.1.529772.3.579.2.356 1948 Unknown [id number] 2.16. 840.1.887627.3.579.2.356 1948 Unknown [id number] 2.16. 840.1.229892.3.579.2.356 1948 Unknown [id number] 2. 840.1.749359.3.579.2.356 1948 Unknown [id number] 2.0.1.309962.3.579.2.356 1948 Unknown [id number] 2. 840.1.149315.3.579.2.356 1948 Unknown [id number] 2.16 840.1.696271.3.579.2.356 1948 Unknown [id number] 2. 840.1.366829.3.579.2.356 1948 Unknown [id number] 2. 840.1.329853.3.579.2.356 1948 Unknown [id number] 2.16 840.1.019058.3.579.2.732 1948 Unknown [id number] 2.16. 840.1.609092.3.579.2.732 1948 Unknown [id number] 2.16. 840.1.803337.3.579.2.732 1948 Unknown [id number] 2. 840.1.320537.3.579.2.732 1948 Unknown [id number] 2.16. 840.1.849206.3.579.2.732 1948 Unknown [id number] 2.16. 840.1.411349.3.579.2.732 1948 Unknown [id number] 2.16. 840.1.209184.3.579.2.732 1948 Unknown [id number] 2.16. 840.1.005373.3.579.2.732 1948 Unknown [id number] 2.16. 840.1.172313.3.579.2.732 1948 Unknown [id number] 2.16. 840.1.581689.3.579.2.732 1948 Unknown [id number] 2.16. 840.1.531470.3.579.2.732 1948 Unknown [id number] 2.16. 840.1.211269.3.579.2.732 1948 Unknown [id number] 2.16. 840.1.906985.3.579.2.732 1948 Unknown [id number] 2.16.8 40.1.212659.3.579.2.727 1948 Unknown [id number] 2.16.8 40.1.988511.3.579.2.727 1948 Unknown [id number] 2.16.8 40.1.824282.3.579.2.727 Unknown [id number] 2.16.8 40.1.742631.3.579.2.531 Unknown [id number] 2.16.8 40.1.863289.3.579.2.531 Unknown [id number] 2.16.8 40.1.827897.3.579.2.531 Unknown [id number] 2.16.8 40.1.941104.3.579.2.531 Unknown [id number] 2.16.8 40.1.227532.3.579.2.531 Unknown [id number] 2.16.8 40.1.699895.3.579.2.531 Unknown [id number] 2.16.8 40.1.501806.3.579.2.531 Unknown [id number] 2.16.8 40.1.122298.3.579.2.531 Social History Date Type Detail Facility Tobacco smoking status NHIS Unknown if ever smoked [facility] Start: 1950 Sex Assigned At [facility] At [facility] Start: 03-11-2022 End: 03-10-2023 Tobacco smoking status NHIS Never smoked tobacco (finding) [facility] Start: 1950 Sex Assigned At Male [facility] No alcohol use No alcohol use [facility] [employer] 600 DO Work Phone: Comment on above: Two 10 oz cups of co ffee; Quit in 1976; Start: 01-31-2019 Tobacco smoking status Ex-smoker (finding) [facility] Tobacco smoking status GAIS Tobacco smoking consumption unknown [facility] Start: 03-10-2023 Tobacco use and exposure Smokeless tobacco non-user [facility] Medical Equipment Procedure Code Equipment Code [...] Arthroplasty, hip, total, anterior approach Acetabular shell ()[id number] FDA Start: 07-02-2021 Arthroplasty, hip, total, anterior approach Ceramic femoral head prosthesis ()[id number] FDA Start: 07-02-2021 Arthroplasty, hip, total, anterior approach Coated hip femur prosthesis, modular ()[id number] FDA Start: 07-02-2021 Arthroplasty, hip, total, anterior approach Non-constrained polyethylene acetabular liner ()[id number] FDA Start: 07-02-2021 [id number] Start: 02-18-2023 [id number] Start: 02-18-2023 [id number] Start: 02-18-2023 Functional Status Date Assessment Result Facility 02-15-2023 Functional Status No [facility] Clinical Notes 01-29-2021 to 03-10-2023 Toni [...] findings. Toni Goldberg MD Orthopaedic Trauma Surgeon [facility] documented in this encounter [facility] 03-10-2023 Instructions Toni Goldberg MD - [...] in 1 month documented in this encounter [facility] 02-25-2023 History of Present illness Narrative Patient discharged to [facility] [address]. IV's & drain removed. Patient took all belongings with him. Discharge plan: SNF, awaiting facility acceptance. Contacted [facility] to follow up determination. VM was left for admissions department, awaiting reply. ALEE Montes LSW ADDENDUM 1:45PM [facility] denied pt. Called pt's , Rae ([phone]) to obtain additional SNF choices. She selected the following: [facility] Referrals are in process. ALEE Montes LSW ADDENDUM 2:48PM [facility] accepted pt. aware and would like [...] rib 9-10 fracture was seen at [facility].The patient had 5 packs of RBCs, 3 packs of FFP, 1 platelet, TXA and Vit K from when he arrived to [facility] and in transit. Patient takes coumadin. Hospital Course: 02/16- became hypotensive, concern for aspiration PNA. Central line, art line placed. On dual pressors. 02/17- weaned off pressors. call center coordinator attempted bedside echo. 02/18- OR with ortho [...] BUN Cr Ca Mg PO4 02/24/23127 2.7 02/24/238 1.9 02/24/238 136 Comment: Note updated reference ranges. 4.0 [...] 02/19 Respiratory: COPD, pulmonary HTN - respiratory rn icu protocol - encourage IS - weaned off [...] Trauma Surgery Chief Resident Department of Surgery [facility] Trauma ICU [phone] Trauma Floor [phone] Associated attestation - Faby Ryan MD - [...] facility acceptance. Referrals were previously sent to [facility] and [facility] denied pt, [facility] is still reviewing. Updates were sent in [facility]. ALEE Montes, JINNY Images from the [...] rib 9-10 fracture was seen at [facility].The patient had 5 packs of RBCs, 3 packs of FFP, 1 platelet, TXA and Vit K from when he arrived to [facility] and in transit. Patient takes coumadin. Hospital Course: 02/16- became hypotensive, concern for aspiration PNA. Central line, art line placed. On dual pressors. 02/17- weaned off pressors. call center coordinator attempted bedside echo. 02/18- OR with ortho [...] 02/19 Respiratory: COPD, pulmonary HTN - respiratory rn icu protocol - encourage IS - wean oygen, [...] Trauma Surgery Chief Resident Department of Surgery [facility] Trauma ICU [phone] Trauma Floor [phone] Images from the original note were not [...] rib 9-10 fracture was seen at [facility].The patient had 5 packs of RBCs, 3 packs of FFP, 1 platelet, TXA and Vit K from when he arrived to [facility] and in transit. Patient takes coumadin. Hospital Course: 12/24- became hypotensive, concern for aspiration PNA. Central line, art line placed. On dual pressors. 02/17- weaned off pressors. call center coordinator attempted bedside echo. 02/18- OR with ortho [...] 02/19 Respiratory: COPD, pulmonary HTN - respiratory rn icu protocol - encourage IS - wean oygen, [...] Trauma Surgery Chief Resident Department of Surgery [facility] Trauma ICU [phone] Trauma Floor [phone] Preliminary Vascular Lab Report Duplex Left Upper [...] rib 9-10 fracture was seen at [facility].The patient had 5 packs of RBCs, 3 packs of FFP, 1 platelet, TXA and Vit K from when he arrived to [facility] and in transit. Patient takes coumadin. Hospital Course: 02/16- became hypotensive, concern for aspiration PNA. Central line, art line placed. On dual pressors. 02/17- weaned off pressors. call center coordinator attempted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
[2023-04-08 11:48] LABS: Bilirubin Urine NEGATIVE (NEGATIVE); Blood Urine NEGATIVE (NEGATIVE); Clarity Urine CLEAR (CLEAR); Color Urine YELLOW (YELLOW); Glucose Urine UA NEGATIVE (NEGATIVE); Ketones Urine NEGATIVE (NEGATIVE); Leukocyte Esterase Urine NEGATIVE (NEGATIVE); Nitrite Urine NEGATIVE (NEGATIVE); Protein Urine NEGATIVE (NEG/TRACE); Specific Gravity Urine <=1.005 (1.005-1.025); pH Urine 6.5 (5.0-9.0)
[2023-04-08 11:50] LABS: Urine Microscopic Indicated NO
== END 2023-04-08 11:00 | disposition home or self-care (01) ==
LOC: LAB 10:59
PROVIDERS: PCP Family Medicine; Visit Provider Family Medicine
DX: N39.0 Urinary tract infection, site not specified (principal)
CPT/HCPCS: 81003

== ENCOUNTER 2023-04-11 03:41 | Outpatient (REF) | payer MEDICARE, SELFPAY ==
--- OUTSIDE RECORDS SUMMARY | 2023-04-11 03:45 | XMS_ITS | CCD ---
Author Name Unknown Address [address] [place] [address] Organization [facility] Care Team Providers Care Linux Admin Engineer Name Role Phone No, Physician Primary Care Provider UnavailShahriar Frederick II Unavailable Shahriar Dhillon II Unavailable [phone] Karina Melgar Unavailable Lynn Gurrola Unavailable MD Karina Melgar Primary Care Provider [phone] DO Yo Blood Emergency Provider LISSETH Link Attending Provider [phone] Sejal Link Unavailable Karina Melgar Unavailable Unavailable [...] Attending UnavailKarina Butler [facility] Unavailable Joselin Burgess Consulting Unavailable Love [...] Attending UnavailKarina Butler [facility] Care Unavailable Christopher Porter Referring Unavailable Christopher Porter Attending Unavailable Dr. Karina Melgar [facility] Care Mariella vailable Christopher Porter Referring Unavailable [...] Mariella vailable KARINA MELGAR Primary Care Physician [phone] JUSTICE PRETTY Referring Unavailable RADHA SMALL Attending [...] Propensity to adverse reactions (disorder) [facility] Repository Medications Current Medications Medication Drug Class(es) Dates Sig (Normalized) Sig (Original) acetaminophen 325 mg / HYDROcodone bitartrate 5 mg oral tablet (2 sources) Opioid Agonist Start: 07-28-2020 [place] 325 mg-5 mg oral tablet 1 tab(s), [...] MG Oral Tablet Take as directed by [facility] coumadin clinic Quantity: 0 Refills: [...] 1 capsule by mouth twice daily Iron [id number]-W-Ozmjh Acid (Ferocon) 110-0.5 mg Capsule Discontinued 1 [...] Discontinued Start: 06-14-2021 take 1 tablet by [facility] three times daily as needed for nausea Ondansetron HCl 8 MG 1 tablet as needed for nausea Orally TID for 10 days Med to Bed Upon Discharge DOS: 07/02/2021 May, Active polyethylene glycol 3350 02482 mg powder for oral solution (4 sources) [...] Discontinued Start: 07-05-2022 take 1 capsule by [facility] every twelve hours propafenone 425 mg [...] Active Start: 04-29-2022 take 1 capsule by [facility] every twelve hours Propafenone HCl ER 225 MG Oral Capsule Extended Release 12 Hour TAKE 1 CAPSULE EVERY 12 HOURS. Quantity: 180 Refills: 0 Ordered: 29-Apr-2022 Christopher Porter MD Start : 29-Apr-2022 Active new start Prostate Support TABS (10 sources) Prostate Support TABS TAKE 1 TABLET DAILY DIRECTED. Quantity: 0 Refills: 0 Ordered: 21-Mar-2022 DO Active Saw-Vit E-Sod Ztn-Opn-Mwof-Pyg (Prostate Health) 160-100-100 mg-unit-mcg Tablet (2 sources) Start: 8 End: 3 take 1 capsule by mouth once daily Saw-Vit E-Sod Ydl-Qww-Jttm-Pyg (Prostate Health) 160-100-100 mg-unit-mcg Tablet Discontinued 1 [...] on Fri02/17/23 at 1600, Until Discontinued Vit C-S.Yeqxxq-Xaagbz-Ruewi Sd (Tart Bhagat) 30-862-23-75-20 mg Capsule (2 sources) Start: 07-28-2017 End: 08-09-2019 Vit C-S.Dvqtzg-Dczbqg-Cbats Sd (Tart Bhagat) 83-881-75-75-20 mg Capsule Discontinued 1 CAP PO Twice [...] source) Long-term current use of anticoagulant; 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 BLOOD URINE Negative NEGATIVE [facility] Clarity (U) CLEAR CLEAR [facility] Color (U) YELLOW YELLOW [facility] GLUCOSE URINE UA Negative NEGATIVE mg/dL [facility] Interpretation and review of laboratory results Abnormal [facility] Ketones Ql (U) Negative NEGATIVE mg/dL [facility] Leukocyte esterase Test strip Ql (U) Negative NEGATIVE [facility] NITRITE URINE Negative NEGATIVE [facility] pH (U) 6.5 [pH] 5.0 - 9.[address] [facility] PROTEIN URINE Negative NEG/TRACE mg/dL [facility] SPECIFIC GRAVITY URINE <=1.005 Abnormal 1.005 - 1.[address] [facility] URINE MICROSCOPIC INDICATED NO [facility] UROBILINOGEN URINE 2.0 EU/dL Abnormal 0.2 - 1.0 EU/dL N [facility] PROTHROMBIN TIME INR W/O COUMon 04-07-2023 Interpretation and review of laboratory results Abnormal [facility] PT Coag (PPP) [Time] 21.0 s High [facility] INR 2.[address] [facility] Comment on above: DESIRED INR: 2.0-3.0 CONDITIONS NOT LISTED BELOW 2.5-3.5 FOR PROSTHETIC HEART VALVE REPLACEMENT 2.5-3.5 RECURRENT THROMBOSIS [facility] PROTHROMBIN TIME INR W/O COUMon 04-04-2023 Interpretation and review of laboratory results Abnormal [facility] PT Coag (PPP) [Time] 23.2 s High [facility] INR 2.[address] [facility] Comment on above: DESIRED INR: 2.0-3.0 CONDITIONS NOT LISTED BELOW 2.5-3.5 FOR PROSTHETIC HEART VALVE REPLACEMENT 2.5-3.5 RECURRENT THROMBOSIS [facility] PROTHROMBIN TIME INR W/O COUMon 04-02-2023 Interpretation and review of laboratory results Abnormal [facility] PT Coag (PPP) [Time] 37.[address] [facility] TB INR 3.[address] [facility] Comment on above: DESIRED INR: 2.0-3.0 CONDITIONS NOT LISTED BELOW 2.5-3.5 FOR PROSTHETIC HEART VALVE REPLACEMENT 2.5-3.5 RECURRENT THROMBOSIS [facility] Basic metabolic 2000 panelon 02-25-2023 Anion gap [Moles/Vol] 8 mmol/L Low 10 - 20 [facility] Calcium [Mass/Vol] 8.0 mg/dL Low 8.6 - 10. 3 mg/dL [facility] Chloride [Moles/Vol] 102 mmol/L 98 - 107 mmol/L [facility] CO2 [Moles/Vol] 30 mmol/L 21 - 31 mmol/L [facility] Creatinine [Mass/Vol] 0.64 mg/dL Low 0.70 - 1.30 mg/dL [facility] GFR/1.73 sq M.predicted CKD-EPI (S/P/Bld) [Vol rate/Area] 99 - PINF [facility] Glucose [Mass/Vol] 129 mg/dL High 74 - 109 mg/dL [facility] Interpretation and review of laboratory results Abnormal [facility] Potassium [Moles/Vol] 3.8 mmol/L 3.5 - 5.0 mmol/L [facility] Sodium [Moles/Vol] 136 mmol/L 136 - 145 mmol/L [facility] Urea nitrogen [Mass/Vol] 20 mg/dL 7 - 25 mg/dL [facility] CBC panel Auto (Bld)on 02-25 Erythrocyte distribution width (RBC) [Ratio] 16.3 % High 11.5 - 14.5 % [facility] Hematocrit (Bld) [Volume fraction] 27.5 % Low 41.0 - 53.0 % [facility] Hemoglobin (Bld) [Mass/Vol] 8.9 g/dL Low 13.9 - 16.3 g/dL [facility] Interpretation and review of laboratory results Abnormal [facility] MCH (RBC) [Entitic mass] 30.8 pg 26.0 - 34.0 pg [facility] MCHC (RBC) [Mass/Vol] 32.5 g/dL 32.0 - 35.9 g/dL [facility] MCV (RBC) [Entitic vol] 95 fL 80 - 100 fL [facility] Platelet mean volume (Bld) [Entitic vol] 8.0 fL 7.5 - 11.2 fL [facility] Platelets (Bld) [#/Vol] 376 10*3/uL 150 - 400 K/uL [facility] RBC (Bld) [#/Vol] 2.90 10*6/uL Low [facility] WBC (Bld) [#/Vol] 8.5 10*3/uL 4.5 - 11.5 K/uL [facility]ESI[facility] 02-25-2023 Magnesium [Mass/Vol] 1.9 mg/dL 1.6 - 2.8 mg/dL [facility] No Panel Informationon 02-25 Interpretation and review of laboratory results [facility] 02-25-2023 Phosphate [Mass/Vol] 2.9 mg/dL 2.3 - 4.2 mg/dL [facility] PROTHROMBIN TIME AND INRon 0 02-25-2023 INR Coag (PPP) [Relative time] 1.13 {INR} High 0.90 - 1.10 [facility] Interpretation and review of laboratory results Abnormal [facility] PT Coag (PPP) [Time] 12.6 s [facility] ANTI FXA-LMW HEPARINon 02-24 LMW Heparin Chromogenic method Qn (PPP) 0.32 IU/mL [facility] Basic metabolic 2000 panelon 02-24-2023 Anion gap [Moles/Vol] 9 mmol/L Low 10 - 20 Met [facility] Calcium [Mass/Vol] 7.7 mg/dL Low 8.6 - 10. 3 mg/dL [facility] Chloride [Moles/Vol] 101 mmol/L 98 - 107 mmol/L [facility] CO2 [Moles/Vol] 30 mmol/L 21 - 31 mmol/L [facility] Creatinine [Mass/Vol] 0.60 mg/dL Low 0.70 - 1.30 mg/dL [facility] GFR/1.73 sq M.predicted CKD-EPI (S/P/Bld) [Vol rate/Area] 101 - PINF [facility] Glucose [Mass/Vol] 98 mg/dL 74 - 109 mg/dL [facility] Interpretation and review of laboratory results Abnormal [facility] Potassium [Moles/Vol] 4.0 mmol/L 3.5 - 5.0 mmol/L [facility] Sodium [Moles/Vol] 136 mmol/L 136 - 145 mmol/L [facility] Urea nitrogen [Mass/Vol] 19 mg/dL 7 - 25 mg/dL [facility] CBC panel Auto (Bld)on 02-24 Erythrocyte distribution width (RBC) [Ratio] 15.4 % High 11.5 - 14.5 % [facility] Hematocrit (Bld) [Volume fraction] 25.2 % Low 41.0 - 53.0 % [facility] Hemoglobin (Bld) [Mass/Vol] 8.3 g/dL Low 13.9 - 16.3 g/dL [facility] Interpretation and review of laboratory results Abnormal [facility] MCH (RBC) [Entitic mass] 30.7 pg 26.0 - 34.0 pg [facility] MCHC (RBC) [Mass/Vol] 33.1 g/dL 32.0 - 35.9 g/dL [facility] MCV (RBC) [Entitic vol] 93 fL 80 - 100 fL [facility] Platelet mean volume (Bld) [Entitic vol] 7.6 fL 7.5 - 11.2 fL [facility] Platelets (Bld) [#/Vol] 320 10*3/uL 150 - 400 K/uL [facility] RBC (Bld) [#/Vol] 2.72 10*6/uL Low [facility] WBC (Bld) [#/Vol] 7.6 10*3/uL 4.5 - 11.5 K/uL [facility] MAGNESIUMon 02-24-2023 Magnesium [Mass/Vol] 1.9 mg/dL 1.6 - 2.8 mg/dL [facility] No Panel Informationon 02-24 Interpretation and review of laboratory results Normal [facility] PHOSPHORUSon 02-24-2023 Phosphate [Mass/Vol] 2.7 mg/dL 2.3 - 4.2 mg/dL [facility] Basic metabolic 2000 panelon 02-23-2023 Anion gap [Moles/Vol] 9 mmol/L Low 10 - 20 Met [facility] Calcium [Mass/Vol] 7.8 mg/dL Low 8.6 - 10. 3 mg/dL [facility] Chloride [Moles/Vol] 99 mmol/L 98 - 107 mmol/L [facility] CO2 [Moles/Vol] 32 mmol/L High 21 - 31 mmol/L [facility] Creatinine [Mass/Vol] 0.59 mg/dL Low 0.70 - 1.30 mg/dL [facility] GFR/1.73 sq M.predicted CKD-EPI (S/P/Bld) [Vol rate/Area] 102 - PINF [facility] Glucose [Mass/Vol] 88 mg/dL 74 - 109 mg/dL [facility] Interpretation and review of laboratory results Abnormal [facility] Potassium [Moles/Vol] 4.0 mmol/L 3.5 - 5.0 mmol/L [facility] Sodium [Moles/Vol] 136 mmol/L 136 - 145 mmol/L [facility] Urea nitrogen [Mass/Vol] 22 mg/dL 7 - 25 mg/dL [facility] CBC panel Auto (Bld)on 02-23 Erythrocyte distribution width (RBC) [Ratio] 15.3 % High 11.5 - 14.5 % [facility] Hematocrit (Bld) [Volume fraction] 26.6 % Low 41.0 - 53.0 % [facility] Hemoglobin (Bld) [Mass/Vol] 8.7 g/dL Low 13.9 - 16.3 g/dL [facility] Interpretation and review of laboratory results Abnormal [facility] MCH (RBC) [Entitic mass] 30.4 pg 26.0 - 34.0 pg [facility] MCHC (RBC) [Mass/Vol] 32.7 g/dL 32.0 - 35.9 g/dL [facility] MCV (RBC) [Entitic vol] 93 fL 80 - 100 fL [facility] Platelet mean volume (Bld) [Entitic vol] 8.7 fL 7.5 - 11.2 fL [facility] Platelets (Bld) [#/Vol] 285 10*3/uL 150 - 400 K/uL [facility] RBC (Bld) [#/Vol] 2.86 10*6/uL Low [facility] WBC (Bld) [#/Vol] 8.2 10*3/uL 4.5 - 11.5 K/uL [facility] MAGNESIUM[facility] 02-23-2023 Magnesium [Mass/Vol] 2.0 mg/dL 1.6 - 2.8 mg/dL [facility] No Panel Informationon 02-23 Interpretation and review of laboratory results Normal [facility] PHOSPHORUSon 02-23-2023 Phosphate [Mass/Vol] 2.6 mg/dL 2.3 - 4.2 mg/dL [facility] ANTI FXA-LMW HEPARINon 02-22 ANTI FXA-LMW HEPARIN ASSAY 0.48 IU/mL Normal The [facility] Comment on above: Order Comment: The r ecommended therapeutic range for treatment of thrombosis with Low Molecular Weight Heparin is 0.5 - 1.0 IU/mLThe recommended range for VTE prophylaxis with Low Molecular Weight Heparin is 0.2 - 0.4 IU/mL. Performed By: #### T S #### [facility] [address] [place] [address], [id number] LMW Heparin Chromogenic method Qn (PPP) 0.48 IU/mL [facility] BASIC METABOLIC PANELon 01-26 Anion gap [Moles/Vol] 7 mmol/L Low 10-20 The [facility] Comment on above: Performed By: #### 8 [id number] #### NURSING GLUCOSE [facility] [address] [place], [address] Calcium [Mass/Vol] 7.7 mg/dL Low 8.6-10.3 [facility] Comment on above: Result Comment: Note updated reference ranges. Performed By: #### 8 [id number] #### NURSING GLUCOSE PROGRAM [address] [place], [address] Chloride [Moles/Vol] 101 mmol/L Normal 98-107 [facility] Comment on above: Result Comment: Note updated reference ranges. Performed By: #### 8 [id number] #### NURSING GLUCOSE PROGRAM [address] [place], [address] CO2 [Moles/Vol] 33 mmol/L High 21-31 [facility] Comment on above: Result Comment: Note updated reference ranges. Performed By: #### 8 2948 #### NURSING GLUCOSE PROGRAM [address] [place], [address] Creatinine [Mass/Vol] 0.60 mg/dL Low 0.70-1.30 [facility] Comment on above: Result Comment: Note updated reference ranges. Performed By: #### 8 2948 #### NURSING GLUCOSE PROGRAM [address] [place] [address] [place], [address] ESTIMATED GFR (CKD-EPI) 101 mL/min/1.73sqm Normal >=60 [...] Inclusion of Race in Diagnosing Kidney Disease. [place] Journal of Kidney Diseases 202;79(2):268-88.e1. 2. N Engl J Med 1 Vol. 385 Issue 19 Pages 5013-8658 Performed By: #### 8 2948 #### NURSING GLUCOSE PROGRAM [address] [place], [address] Glucose [Mass/Vol] 105 mg/dL Normal 74-109 [facility] Comment on above: Performed By: #### 8 2948 #### NURSING GLUCOSE PROGRAM [address] [place], [address] Potassium [Moles/Vol] 3.6 mmol/L Normal 3.5-5.0 [facility] Comment on above: Result Comment: Note updated reference ranges. Note updated reference ranges. Performed By: #### 8 2948 #### NURSING GLUCOSE PROGRAM [address] [place], [address] Sodium [Moles/Vol] 137 mmol/L Normal 136-145 [facility] Comment on above: Result Comment: Note updated reference ranges. Performed By: #### 8 2948 #### NURSING GLUCOSE PROGRAM [address] [place], [address] Urea nitrogen [Mass/Vol] 23 mg/dL Normal 7-25 The [facility] Comment on above: Result Comment: Note updated reference ranges. Performed By: #### 8 2948 #### NURSING GLUCOSE PROGRAM [address] [place], [address] Basic metabolic 2000 panelon 02-22-2023 Anion gap [...] [Mass/Vol] 105 mg/dL 74 - 109 mg/dL [facility] Interpretation and review of laboratory results Abnormal [facility] Potassium [Moles/Vol] 3.6 mmol/L 3.5 - 5.0 mmol/L [facility] Sodium [Moles/Vol] 137 mmol/L 136 - 145 mmol/L [facility] Urea nitrogen [Mass/Vol] 23 mg/dL 7 - 25 mg/dL [facility] CBC panel Auto (Bld)on 02-22 Erythrocyte distribution width (RBC) [Ratio] 15.4 % High 11.5 - 14.5 % [facility] Hematocrit (Bld) [Volume fraction] 23.9 % Low 41.0 - 53.0 % [facility] Hemoglobin (Bld) [Mass/Vol] 8.0 g/dL Low 13.9 - 16.3 g/dL [facility] Interpretation and review of laboratory results Abnormal [facility] MCH (RBC) [Entitic mass] 30.7 pg 26.0 - 34.0 pg [facility] MCHC (RBC) [Mass/Vol] 33.3 g/dL 32.0 - 35.9 g/dL [facility] MCV (RBC) [Entitic vol] 92 fL 80 - 100 fL [facility] Platelet mean volume (Bld) [Entitic vol] 8.7 fL 7.5 - 11.2 fL [facility] Platelets (Bld) [#/Vol] 227 10*3/uL 150 - 400 K/uL [facility] RBC (Bld) [#/Vol] 2.60 10*6/uL Low [facility] WBC (Bld) [#/Vol] 7.6 10*3/uL 4.5 - 11.5 K/uL [facility] COMPLETE BLOOD COUNTon 02-22 Erythrocyte distribution width (RBC) [Ratio] 15.4 % High 11.5-14.5 The [facility] Comment on above: Performed By: #### T S #### [facility] [address] [place] [address], Hematocrit (Bld) [Volume fraction] 23.9 % Low 41.0-53.0 [facility] Comment on above: Performed By: #### T S #### [facility] [address] [place] [address], Hemoglobin (Bld) [Mass/Vol] 8.0 g/dL Low 13.9-16.3 [facility] Comment on above: Performed By: #### T S #### [facility] [address] [place] [address], MCH (RBC) [Entitic mass] 30.7 pg Normal 26.0-34.0 The [facility] Comment on above: Performed By: #### T S #### [facility] [address] [place] [address], MCHC (RBC) [Mass/Vol] 33.3 g/dL Normal 32.0-35.9 [facility] Comment on above: Performed By: #### T S #### [facility] [address] [place] [address], MCV (RBC) [Entitic vol] 92 fL Normal 80-100 The [facility] Comment on above: Performed By: #### T S #### [facility] [address] [place] [address], Platelet mean volume (Bld) [Entitic vol] 8.7 fL Normal 7.5-11.2 The [facility] Comment on above: Performed By: #### T S #### [facility] [address] [place] [address], Platelets (Bld) [#/Vol] 227 10*3/uL Normal 150-400 The [facility] Comment on above: Performed By: #### T S #### [facility] [address] [place] [address], RBC (Bld) [#/Vol] 2.60 10*6/uL Low 4.50-5.90 [facility] Comment on above: Performed By: #### T S #### [facility] [address] [place], [place], WBC (Bld) [#/Vol] 7.6 10*3/uL Normal 4.5-11.5 [facility] Comment on above: Performed By: #### T S #### [facility] [address] [place], [place], Care Plan Noteon 02-22-2023 House Officer Authentication Interface Message Text Problem: Routine Care: [...] and once discontinued Outcome: Progressing Normal The [facility] MAGNESIUMon 02-22-2023 Magnesium [Mass/Vol] 2.0 mg/dL Normal 1.6-2.8 The [facility] Comment on above: Performed By: #### 8 2948 #### NURSING GLUCOSE PROGRAM [address] [place], [address] Magnesium [Mass/Vol] 2.0 mg/dL 1.6 - 2.8 mg/dL [facility] No Panel Informationon 02-22 Interpretation and review of laboratory results Normal [facility] PHOSPHORUSon 02-22-2023 Phosphate [Mass/Vol] 2.8 mg/dL Normal 2.3-4.2 The [facility] Comment on above: Performed By: #### 8 2948 #### NURSING GLUCOSE PROGRAM [address] [place], [address] Phosphate [Mass/Vol] 2.8 mg/dL 2.3 - 4.2 mg/dL [facility] BASIC METABOLIC PANELon 01-25 Anion gap [Moles/Vol] 9 mmol/L Low 10-20 The [facility] Comment on above: Performed By: #### 8 2948 #### NURSING GLUCOSE PROGRAM [address] [place], [address] Calcium [Mass/Vol] 7.5 mg/dL Low 8.6-10.3 [facility] Comment on above: Result Comment: Note updated reference ranges. Performed By: #### 8 2948 #### NURSING GLUCOSE PROGRAM [address] [place], [address] Chloride [Moles/Vol] 100 mmol/L Normal 98-107 The [facility] Comment on above: Result Comment: Note updated reference ranges. Performed By: #### 8 2948 #### NURSING GLUCOSE PROGRAM [address] [place], [address] CO2 [Moles/Vol] 33 mmol/L High 21-31 The [facility] Comment on above: Result Comment: Note updated reference ranges. Performed By: #### 8 2948 #### NURSING GLUCOSE PROGRAM [address] [place], [address] Creatinine [Mass/Vol] 0.65 mg/dL Low 0.70-1.30 The [facility] Comment on above: Result Comment: Note updated reference ranges. Performed By: #### 8 2948 #### NURSING GLUCOSE PROGRAM [address] [place], [address] ESTIMATED GFR (CKD-EPI) 99 mL/min/1.73sqm Normal >=60 [email or web address] Comment on above: Result Comment: 2020 [...] Inclusion of Race in Diagnosing Kidney Disease. [place] Journal of Kidney Diseases 2021;79(2):268-88.e1. 2. N Engl J Med 2020 Vol. 385 Issue 19 Pages 2950-1208 Performed By: #### 8 2948 #### NURSING GLUCOSE PROGRAM [address] [place], [address] Glucose [Mass/Vol] 104 mg/dL Normal 74-109 [facility] Comment on above: Performed By: #### 8 2948 #### NURSING GLUCOSE PROGRAM [address] [place], [address] Potassium [Moles/Vol] 3.5 mmol/L Normal 3.5-5.0 The [facility] Comment on above: Result Comment: Note updated reference ranges. Note updated reference ranges. Performed By: #### 8 2948 #### NURSING GLUCOSE PROGRAM [address] [place], [address] Sodium [Moles/Vol] 138 mmol/L Normal 136-145 [facility] Comment on above: Result Comment: Note updated reference ranges. Performed By: #### 8 2948 #### NURSING GLUCOSE PROGRAM [address] [place], [address] Urea nitrogen [Mass/Vol] 24 mg/dL Normal 7-25 [facility] Comment on above: Result Comment: Note updated reference ranges. Performed By: #### 8 2948 #### NURSING GLUCOSE PROGRAM [address] [place], [address] BLOOD CULTUREon 02-21-2023 Bacteria identified Cx Nom (Bld) No Growth [facility] Interpretation and review of laboratory results Normal [facility] Basic metabolic 2000 panelon 02-21-2023 Anion gap [Moles/Vol] 9 mmol/L Low 10 - 20 [facility] Calcium [Mass/Vol] 7.5 mg/dL Low 8.6 - 10. 3 mg/dL [facility] Chloride [Moles/Vol] 100 mmol/L 98 - 107 mmol/L [facility] CO2 [Moles/Vol] 33 mmol/L High 21 - 31 mmol/L [facility] Creatinine [Mass/Vol] 0.65 mg/dL Low 0.70 - 1.30 mg/dL [facility] GFR/1.73 sq M.predicted CKD-EPI (S/P/Bld) [Vol rate/Area] 99 - PINF [facility] Glucose [Mass/Vol] 104 mg/dL 74 - 109 mg/dL [facility] Interpretation and review of laboratory results Abnormal [facility] Potassium [Moles/Vol] 3.5 mmol/L 3.5 - 5.0 mmol/L [facility] Sodium [Moles/Vol] 138 mmol/L 136 - 145 mmol/L [facility] Urea nitrogen [Mass/Vol] 24 mg/dL 7 - 25 mg/dL [facility] CBC panel Auto (Bld)on 02-21 Erythrocyte distribution width (RBC) [Ratio] 14.5 % 11.5 - 14.5 % [facility] Hematocrit (Bld) [Volume fraction] 21.8 % Low 41.0 - 53.0 % [facility] Hemoglobin (Bld) [Mass/Vol] 7.6 g/dL Low 13.9 - 16.3 g/dL [facility] Interpretation and review of laboratory results Abnormal [facility] MCH (RBC) [Entitic mass] 31.5 pg 26.0 - 34.0 pg [facility] MCHC (RBC) [Mass/Vol] 34.6 g/dL 32.0 - 35.9 g/dL [facility] MCV (RBC) [Entitic vol] 91 fL 80 - 100 fL [facility] Platelet mean volume (Bld) [Entitic vol] 8.3 fL 7.5 - 11.2 fL [facility] Platelets (Bld) [#/Vol] 199 10*3/uL 150 - 400 K/uL [facility] RBC (Bld) [#/Vol] 2.40 10*6/uL Low [facility] WBC (Bld) [#/Vol] 9.6 10*3/uL 4.5 - 11.5 K/uL M [facility] COMPLETE BLOOD COUNTon 02-21 Erythrocyte distribution width (RBC) [Ratio] 14.5 % Normal 11.5-14.5 The [facility] Comment on above: Performed By: #### T S #### [facility] [address] [place] [address], Hematocrit (Bld) [Volume fraction] 21.8 % Low 41.0-53.0 The [facility] Comment on above: Performed By: #### T S #### [facility] [address] [place] [address], Hemoglobin (Bld) [Mass/Vol] 7.6 g/dL Low 13.9-16.3 The [facility] Comment on above: Performed By: #### T S #### [facility] [address] [place] [address], MCH (RBC) [Entitic mass] 31.5 pg Normal 26.0-34.0 The [facility] Comment on above: Performed By: #### T S #### [facility] [address] [place] [address], MCHC (RBC) [Mass/Vol] 34.6 g/dL Normal 32.0-35.9 The [facility] Comment on above: Performed By: #### T S #### [facility] [address] [place] [address], MCV (RBC) [Entitic vol] 91 fL Normal 80-100 The [facility] Comment on above: Performed By: #### T S #### [facility] [address] [place] [address], Platelet mean volume (Bld) [Entitic vol] 8.3 fL Normal 7.5-11.2 The [facility] Comment on above: Performed By: #### T S #### [facility] [address] [place] [address], Platelets (Bld) [#/Vol] 199 10*3/uL Normal 150-400 [facility] Comment on above: Performed By: #### T S #### [facility] [address] [place] [address], RBC (Bld) [#/Vol] 2.40 10*6/uL Low 4.50-5.90 [facility] Comment on above: Performed By: #### T S #### [facility] [address], [place], WBC (Bld) [#/Vol] 9.6 10*3/uL Normal 4.5-11.5 [facility] Comment on above: Performed By: #### T S #### [facility] [address] [place] [address], Care Plan Noteon 02-21-2023 House Officer Authentication Interface Message Text Problem: Routine Care: [...] and once discontinued Outcome: Progressing Normal [facility] GLUCOSE, FINGERSTICK-IN OFFI CEon 02-21-2023 Glucose [Mass/Vol] 144 mg/dL High 80-116 The [facility] Comment on above: Performed By: #### [id number] #### NURSING GLUCOSE PROGRAM [address] [place], [address] Glucose [Mass/Vol] 144 mg/dL High 80 - 116 mg/dL [facility] Interpretation and review of laboratory results Abnormal [facility] MAGNESIUMon 02-21-2023 Magnesium [Mass/Vol] 1.9 mg/dL Normal 1.6-2.8 The [facility] Comment on above: Performed By: #### T S #### [facility] [address] [place] [address], Magnesium [Mass/Vol] 1.9 mg/dL 1.6 - 2.8 mg/dL [facility] No Panel Informationon 02-21 Interpretation and review of laboratory results Normal [facility] PHOSPHORUSon 02-21-2023 Phosphate [Mass/Vol] 2.3 mg/dL Normal 2.3-4.2 The [facility] Comment on above: Performed By: #### T S #### [facility] [address] [place] [address], Phosphate [Mass/Vol] 2.3 mg/dL 2.3 - 4.2 mg/dL [facility] Procedureson 02-21-2023 House Officer Authentication Interface Message Text Upper Extremities Venous Duplex [address] [place] [id number] Status:Open Demographics Patient name: JUAN Leung Gender: Male Date of : 1950 Age: 72 year(s) Procedure Information Procedure date: 02/21/2023 2:15 PM Procedure type: Vascular Proc. sub type: Veins, Upper Extremities Veins, LIMITED DUPLEX VEIN SCAN UE Accession no: [id number] Patient status: Routine Study location: Portable Technical quality: Poor visualization Limitation reason: Poor acoustical window Procedure Staff Referring Physician: SUKHWINDER BRIAN Electrical Assembly Technician: Alex Castañeda RVT Interpreting physician: NATAN Ceja MD Indications Pain, edema, discoloration. Risk Factors Additional comments: No significant history Page 1/ JUAN Leung 1950 [id number] 02/21/2023 2:15 PM Upper Extremities Venous Duplex [...] jugular vein. Page 2/ JUAN Leung 1950 [id number] 02/21/2023 2:15 PM Invalid Interpretation Code [facility] Progress Noteson 02-21-2023 House Officer Authentication Interface Message Text Preliminary Vascular Lab Report Duplex Left Upper Extremity Vein Scan No evidence deep vein thrombus left upper extremity, official to follow report to follow. Masoud Castañeda RVT Normal [facility] House Officer Authentication Interface Message Text Pt is rec for SNF Pt was denied from [facility] due to no available bed. Kamillalibby will like updates Friday before deciding to clinically accept. Pt is still pending med readiness Pt will not need precert SW will continue to follow Aj BRASHER,GEOLOGICAL SAMPLE TESTER Normal [facility] House Officer Authentication Interface Message Text At 19:40 patient [...] baseline. Will continue to monitor. Normal [facility] URINALYSIS WITH REFLEX CULTU RE PERFORMABLEon 02-21-2023 Glucose Ql (U) Negative Normal Negative [facility] Comment on above: Order Comment: A [...] JUDITH Harper8, PHOS #### [facility] [address] [place] [address], [id number] Protein (U) [Mass/Vol] 30 mg/dL Abnormal Negative [facility] Comment on above: Order Comment: A [...] JUDITH Harper8, PHOS #### [facility] [address] [place] [address], U APPEAR Clear Normal Clear [facility] Comment on above: Order [...] By: #### M G, CH8, PHOS #### [facility] [address] [place] [address], U BILI Negative Normal Negative [facility] Comment on above: Order [...] G, CH8, PHOS #### [facility] [address] [place] [address], U BLOOD Negative Normal Negative [facility] Comment [...] G, CH8, PHOS #### [facility] [address] [place] [address], U COLOR Yellow Normal Colorless [facility] Comment on above: Order Comment: A [...] G, CH8, PHOS #### [facility] [address] [place] [address], U KETONE Negative Normal Negative [facility] Comment on above: Order Comment: A [...] Meredith, CH8, PHOS #### [facility] [address] [place] [address], U LEUK Negative Normal Negative [facility] Comment on above: Order Comment: A [...] CH8, PHOS #### [facility] [address], [place], U MUCOUS Present Normal [facility] Comment on above: Order Comment: A [...] CH8, PHOS #### [facility] [address], [place], [place] NITRITE Negative Normal Negative [facility] Comment on above: Order Comment: A [...] CH8, PHOS #### [facility] [address], [place], U PH 6.5 Normal 5.0-8.0 [facility] Comment on above: Order Comment: A [...] Meredith CH8, PHOS #### [facility] [address], [place], U RBC 3-5 Abnormal 0-2 [facility] Comment on above: Order Comment: A [...] Meredith CH8, PHOS #### [facility] [address] [place] [address], U SG 1.026 Normal <=1.030 [facility] Comment on above: Order Comment: A [...] Harper CH8, PHOS #### [facility] [address] [place] [address], U UROBILI 2.0 mg/dL Abnormal Negative [facility] Comment on above: Order Comment: A [...] CH8, PHOS #### [facility] [address], [place], U WBC 3-5 Abnormal 0-2 [facility] Comment on above: Order Comment: [...] G, CH8, PHOS #### [facility] [address] [place] [address], BASIC METABOLIC PANELon 12-2 Anion gap [Moles/Vol] 12 mmol/L Normal 10-20 The [facility] Comment on above: Performed By: #### C BC #### [facility] [address] [place] [address], Calcium [Mass/Vol] 7.5 mg/dL Low 8.6-10.3 The [facility] Comment on above: Result Comment: Note updated reference ranges. Performed By: #### C BC #### [facility] [address] [place] [address], Chloride [Moles/Vol] 99 mmol/L Normal 98-107 [facility] Comment on above: Result Comment: Note updated reference ranges. Performed By: #### C BC #### [facility] [address] [place] [address], CO2 [Moles/Vol] 29 mmol/L Normal 21-31 [facility] Comment on above: Result Comment: Note updated reference ranges. Performed By: #### C BC #### [facility] [address] [place] [address], Creatinine [Mass/Vol] 0.81 mg/dL Normal 0.70-1.30 The [facility] Comment on above: Result Comment: Note updated reference ranges. Performed By: #### C BC #### [facility] [address] [place] [address], ESTIMATED GFR (CKD-EPI) 93 mL/min/1.73sqm Normal >=60 [...] Inclusion of Race in Diagnosing Kidney Disease. [place] Journal of Kidney Diseases 202;79(2):268-88.e1. 2. N Engl J Med 2020 Vol. 385 Issue 19 Pages 3867-2748 Performed By: #### C BC #### [facility] [address] [place] [address], Glucose [Mass/Vol] 126 mg/dL High 74-109 [facility] Comment on above: Performed By: #### C BC #### [facility] [address] [place] [address], Potassium [Moles/Vol] 3.3 mmol/L Low 3.5-5.0 [facility] Comment on above: Result Comment: Note updated reference ranges. Note updated reference ranges. Performed By: #### C BC #### [facility] [address] [place] [address], Sodium [Moles/Vol] 137 mmol/L Normal 136-145 [facility] Comment on above: Result Comment: Note updated reference ranges. Performed By: #### C BC #### [facility] [address] [place] [address], Urea nitrogen [Mass/Vol] 26 mg/dL High 7-25 [facility] Comment on above: Result Comment: Note updated reference ranges. Performed By: #### C BC #### [facility] [address] [place] [address], Anion gap [Moles/Vol] 10 mmol/L Normal 10-20 [facility] Comment on above: Performed By: #### M G, CH8, PHOS #### [facility] [address] [place] [address], Calcium [Mass/Vol] 7.9 mg/dL Low 8.6-10.3 [facility] Comment on above: Result Comment: Note updated reference ranges. Performed By: #### ASIA Freitas, PHOS #### [facility] [address], [place], Chloride [Moles/Vol] 102 mmol/L Normal 98-107 [facility] Comment on above: Result Comment: Note updated reference ranges. Performed By: #### Jennifer Harper CH8, PHOS #### [facility] [address], [place], CO2 [Moles/Vol] 30 mmol/L Normal 21-31 [facility] Comment on above: Result Comment: Note updated reference ranges. Performed By: #### ASIA Freitas, PHOS #### [facility] [address], [place], Creatinine [Mass/Vol] 0.79 mg/dL Normal 0.70-1.30 [facility] Comment on above: Result Comment: Note updated reference ranges. Performed By: #### ASIA Freitas, PHOS #### [facility] [address], [place], ESTIMATED GFR (CKD-EPI) 93 mL/min/1.73sqm Normal [...] Inclusion of Race in Diagnosing Kidney Disease. [place] Journal of Kidney Diseases 202;79(2):268-88.e1. 2. N Engl J Med 2020 Vol. 385 Issue 19 Pages 8075-6171 Performed By: #### Jennifer Harper CH8, PHOS #### [facility] [address], [place], Glucose [Mass/Vol] 139 mg/dL High 74-109 [facility] Comment on above: Performed By: #### ASIA Freitas, PHOS #### [facility] [address] [place] [address], Potassium [Moles/Vol] 3.7 mmol/L Normal 3.5-5.0 [facility] Comment on above: Result Comment: Note updated reference ranges. Note updated reference ranges. Performed By: #### ASIA Freitas, PHOS #### [facility] [address], [place], Sodium [Moles/Vol] 138 mmol/L Normal 136-145 [facility] Comment on above: Result Comment: Note updated reference ranges. Performed By: #### ASIA Freitas, FAVIOLAS #### [facility] [address], [place], Urea nitrogen [Mass/Vol] 23 mg/dL Normal 7-25 [facility] Comment on above: Result Comment: Note updated reference ranges. Performed By: #### ASIA Freitas, PHOS #### [facility] [address], [place], Basic metabolic 2000 panelon 02-20-2023 Anion gap [Moles/Vol] 12 mmol/L 10 - 20 Met [facility] Calcium [Mass/Vol] 7.5 mg/dL Low 8.6 - 10. 3 mg/dL [facility] Chloride [Moles/Vol] 99 mmol/L 98 - 107 mmol/L [facility] CO2 [Moles/Vol] 29 mmol/L 21 - 31 mmol/L [facility] Creatinine [Mass/Vol] 0.81 mg/dL 0.70 - 1.30 mg/dL [facility] GFR/1.73 sq M.predicted CKD-EPI (S/P/Bld) [Vol rate/Area] 93 - PINF [facility] Glucose [Mass/Vol] 126 mg/dL High 74 - 109 mg/dL [facility] Interpretation and review of laboratory results Abnormal [facility] Potassium [Moles/Vol] 3.3 mmol/L Low 3.5 - 5.0 mmol/L [facility] Sodium [Moles/Vol] 137 mmol/L 136 - 145 mmol/L [facility] Urea nitrogen [Mass/Vol] 26 mg/dL High 7 - 25 mg/dL [facility] Anion gap [Moles/Vol] 10 mmol/L 10 - 20 Met [facility] Calcium [Mass/Vol] 7.9 mg/dL Low 8.6 - 10. 3 mg/dL [facility] Chloride [Moles/Vol] 102 mmol/L 98 - 107 mmol/L [facility] CO2 [Moles/Vol] 30 mmol/L 21 - 31 mmol/L [facility] Creatinine [Mass/Vol] 0.79 mg/dL 0.70 - 1.30 mg/dL [facility] GFR/1.73 sq M.predicted CKD-EPI (S/P/Bld) [Vol rate/Area] 93 - PINF [facility] Glucose [Mass/Vol] 139 mg/dL High 74 - 109 mg/dL [facility] Potassium [Moles/Vol] 3.7 mmol/L 3.5 - [...] 7.7 g/dL Low 13.9 - 16.3 g/dL [facility] Interpretation and review of laboratory results Abnormal [...] 9.1 10*3/uL 4.5 - 11.5 K/uL [facility] CBC panel Auto (Bld)Ordered By: Carina Reeves on 02-20-2023 Erythrocyte distribution width (RBC) [Ratio] 14.4 % 11.5 - 14.5 % [facility] Hematocrit (Bld) [Volume fraction] 22.8 % Low 41.0 - 53.0 % [facility] Hemoglobin (Bld) [Mass/Vol] 7.8 g/dL Low 13.9 - 16.3 g/dL [facility] Interpretation and review of laboratory results Abnormal [facility] MCH (RBC) [Entitic mass] 31.0 pg 26.0 - 34.0 pg [facility] MCHC (RBC) [Mass/Vol] 34.4 g/dL 32.0 - 35.9 g/dL [facility] MCV (RBC) [Entitic vol] 90 fL 80 - 100 fL [facility] Platelet mean volume (Bld) [Entitic vol] 9.0 fL 7.5 - 11.2 fL [facility] Platelets (Bld) [#/Vol] 159 10*3/uL 150 - 400 K/uL [facility] RBC (Bld) [#/Vol] 2.53 10*6/uL Low [facility] WBC (Bld) [#/Vol] 8.7 10*3/uL 4.5 - 11.5 K/uL [facility] COMPLETE BLOOD COUNTon 02-20 Erythrocyte distribution width (RBC) [Ratio] 14.7 % High 11.5-14.5 The [facility] Comment on above: Performed By: #### T S #### [facility] [address] [place] [address], Hematocrit (Bld) [Volume fraction] 23.3 % Low 41.0-53.0 [facility] Comment on above: Performed By: #### T S #### [facility] [address] [place] [address], Hemoglobin (Bld) [Mass/Vol] 7.7 g/dL Low 13.9-16.3 [facility] Comment on above: Performed By: #### T S #### [facility] [address], [place], MCH (RBC) [Entitic mass] 30.2 pg Normal 26.0-34.0 [facility] Comment on above: Performed By: #### T S #### [facility] [address], [place], MCHC (RBC) [Mass/Vol] 33.2 g/dL Normal 32.0-35.9 [facility] Comment on above: Performed By: #### T S #### [facility] [address], [place], MCV (RBC) [Entitic vol] 91 fL Normal 80-100 [facility] Comment on above: Performed By: #### T S #### [facility] [address], [place], Platelet mean volume (Bld) [Entitic vol] 8.5 fL Normal 7.5-11.2 [facility] Comment on above: Performed By: #### T S #### [facility] [address], [place], Platelets (Bld) [#/Vol] 192 10*3/uL Normal 150-400 [facility] Comment on above: Performed By: #### T S #### [facility] [address], [place], RBC (Bld) [#/Vol] 2.56 10*6/uL Low 4.50-5.90 [facility] Comment on above: Performed By: #### T S #### [facility] [address], [place], WBC (Bld) [#/Vol] 9.1 10*3/uL Normal 4.5-11.5 [facility] Comment on above: Performed By: #### T S #### [facility] [address], [place], Erythrocyte distribution width (RBC) [Ratio] 14.4 % Normal 11.5-14.5 The [facility] Comment on above: Performed By: #### C BC #### [facility] [address] [place] [address], Hematocrit (Bld) [Volume fraction] 22.8 % Low 41.0-53.0 [facility] Comment on above: Performed By: #### C BC #### [facility] [address] [place] [address], Hemoglobin (Bld) [Mass/Vol] 7.8 g/dL Low 13.9-16.3 [facility] Comment on above: Performed By: #### C BC #### [facility] [address] [place] [address], MCH (RBC) [Entitic mass] 31.0 pg Normal 26.0-34.0 The [facility] Comment on above: Performed By: #### C BC #### [facility] [address] [place] [address], MCHC (RBC) [Mass/Vol] 34.4 g/dL Normal 32.0-35.9 [facility] Comment on above: Performed By: #### C BC #### [facility] [address] [place] [address], MCV (RBC) [Entitic vol] 90 fL Normal 80-100 The [facility] Comment on above: Performed By: #### C BC #### [facility] [address] [place] [address], Platelet mean volume (Bld) [Entitic vol] 9.0 fL Normal 7.5-11.2 [facility] Comment on above: Performed By: #### C BC #### [facility] [address] [place] [address], Platelets (Bld) [#/Vol] 159 10*3/uL Normal 150-400 [facility] Comment on above: Performed By: #### C BC #### [facility] [address] [place] [address], RBC (Bld) [#/Vol] 2.53 10*6/uL Low 4.50-5.90 [facility] Comment on above: Performed By: #### C BC #### [facility] [address] [place] [address], WBC (Bld) [#/Vol] 8.7 10*3/uL Normal 4.5-11.5 [facility] Comment on above: Performed By: #### C BC #### [facility] [address] [place] [address], COVID/INFLUENZAon 02-20-2023 INFLUENZA A Not detected Normal Not Detected [facility] Comment on above: Order Comment: Not D etected results are indicative of the absence of SARS-CoV-2 in the specimen submitted for testing. False negative results are possible based on the timing and quality of specimen submitted for testing. Result Comment: This assay was performed using [employer] RTPCR technology. Performed By: #### T S #### [facility] [address] [place] [address], INFLUENZA B Not detected Normal Not Detected [facility] Comment on above: Order Comment: Not D etected results are indicative of the absence of SARS-CoV-2 in the specimen submitted for testing. False negative results are possible based on the timing and quality of specimen submitted for testing. Result Comment: This assay was performed using [employer] RTPCR technology. Performed By: #### T S #### [facility] [address] [place] [address], SARS-CoV-2 (COVID-19) RNA FABI+probe Ql (Unsp spec) Not detected Normal Not Detected [facility] Comment on above: Order Comment: Not D etected results are indicative of the absence of SARS-CoV-2 in the specimen submitted for testing. False negative results are possible based on the timing and quality of specimen submitted for testing. Result Comment: This assay was performed using [employer] RTPCR technology. Performed By: #### T S #### [facility] [address] [place] [address], COVID/INFLUENZAOrdered By: Prisca Vogel on 02-20-2023 FLUAV RNA FABI+probe Ql (Nph) Not detected Not Detected [facility] FLUBV RNA FABI+probe Ql (Nph) Not detected Not Detected [facility] Interpretation and review of laboratory results Normal [facility] SARS-CoV-2 (COVID-19) RNA FABI+probe Ql (Unsp spec) Not detected Not Detected [facility] Care Plan Noteon 02-20-2023 House Officer Authentication Interface Message Text Called to bedside to assess for left arm swelling. Does appear left arm is asymmetrically swollen compared to right. Neurovascularly intact however. Denies chest pain, sob at this time. Will order duplex RUE to r/o dvt. Kevin Barrientos, DO Normal The [facility] House Officer Authentication Interface Message Text Noticed increased swelling and warmth on Left arm compared to earlier in shift and Right arm. Pt was also unable to be weaned off O2 as well and complains of shortness of breath at times, and cannot tolerate lying flat. Vitals unremarkable otherwise. MD relationship specialist notified and will come bedside after trauma. Normal [facility] MAGNESIUMon 02-20-2023 Magnesium [Mass/Vol] 2.0 mg/dL Normal 1.6-2.8 [facility] Comment on above: Performed By: #### Vijaya H8, PHOS, MG ####[facility] [id number] [place] [address], Magnesium [Mass/Vol] 2.0 mg/dL 1.6 - 2.8 mg/dL [facility] Magnesium [Mass/Vol] 1.9 mg/dL Normal 1.6-2.8 [facility] Comment on above: Performed By: #### Jennifer G, CH8, PHOS #### [facility] [address] [place] [address], Interpretation and review of laboratory results Normal [facility] Magnesium [Mass/Vol] 1.9 mg/dL 1.6 - 2.8 mg/dL [facility] No Panel Informationon 02-20 Interpretation and review of laboratory results Normal [facility] Interpretation and review of laboratory results Abnormal [facility] PHOSPHORUSon 02-20-2023 Phosphate [Mass/Vol] 2.8 mg/dL Normal 2.3-4.2 The [facility] Comment on above: Performed By: #### Vijaya H8, PHOS, MG ####[facility] [id number] [place] [address], Phosphate [Mass/Vol] 2.8 mg/dL 2.3 - 4.2 mg/dL [facility] Phosphate [Mass/Vol] 2.2 mg/dL Low 2.3-4.2 [facility] Comment on above: Performed By: #### M JUDITH Harper8, PHOS #### [facility] [address] [place], [address] Phosphate [Mass/Vol] 2.2 mg/dL Low 2.3 - 4.2 mg/dL [facility] Progress Noteson 02-20-2023 House Officer Authentication Interface Message Text [facility] 02/20/2023 Reason for Services: Follow-Up Geochemist attempted to visit with patient for follow up regarding resources and education provided and answer any questions. Patient was asleep at time of visit. Geochemist will attempt to engage with Patient and/or Family the next business day. Jess Henley Main Line: [phone] Normal [facility] House Officer Authentication Interface Message Text SW/CM aware that patient meets criteria for SNF. Met with Pt on unit to discuss dispo. Patient open and agreeable to SNF placement. CM/SW provided pt the quality and resource use measure data from available post-acute (PAC) providers, that best align with the patient's treatment goals and preferences from the medicare.gov compare site for SNF. [place] [facility] was provided to the patient/patient student services representative. Pt want's RAE STROUD [phone] as decision maker for dc planning SW/CM will follow up for choices. Addendum 2:06pm SW called pt's RAE STROUD [phone] she gave the following facility choices [facility] Ms. Stroud has surgery tomorrow, pt's son Anibal Stroud [phone] will be main wigs salesperson for the family. SW sent referrals SW will continue to follow Pt will not need precert Aj BRASHER,GEOLOGICAL SAMPLE TESTER Normal [facility] URINALYSIS WITH REFLEX CULTU RE PERFORMABLEon 02-20-2023 Appearance (U) Clear Clear [facility] Bilirubin Ql (U) Negative Negative [facility] Color (U) Yellow Colorless [facility] Glucose Auto test strip (U) [Mass/Vol] Negative Negative mg/dL [facility] Hemoglobin Ql (U) Negative Negative [facility] Interpretation and review of laboratory results Abnormal [facility] Ketones Ql (U) Negative Negative mg/dL [facility] Leukocyte esterase Test strip Ql (U) Negative Negative [facility] Mucus Ql (Urine sed) Present [facility] Nitrite Ql (U) Negative Negative [facility] (U) 6.5 [pH] 5.0 - 8.0 [facility] Protein (U) [Mass/Vol] 30 mg/dL Abnormal Negative [facility] Specific gravity (U) [Rel density] 1.026 NINF - 1.030 [facility] Urobilinogen Qn (U) 2.0 mg/dL Abnormal Negative [facility] WBC (U) [#/Vol] 3-[address] [facility] th WBC LM.HPF (Urine sed) [#/Area] 3-5 Abnormal [facility] ANTI FXA-LMW HEPARINon 02-19 ANTI FXA-LMW HEPARIN ASSAY 0.32 IU/mL Normal The [facility] Comment on above: Order Comment: The r ecommended therapeutic range for treatment of thrombosis with Low Molecular Weight Heparin is 0.5 - 1.0 IU/mLThe recommended range for VTE prophylaxis with Low Molecular Weight Heparin is 0.2 - 0.4 IU/mL. Performed By: #### A XL ####[facility] [id number] [place], [place], LMW Heparin Chromogenic method Qn (PPP) 0.32 IU/mL [facility] BASIC METABOLIC PANELon 01-25 Anion gap [Moles/Vol] 10 mmol/L Normal 10-20 The [facility] Comment on above: Performed By: #### C H8, PHOS, MG ####[facility] [id number] [place], [place], Calcium [Mass/Vol] 7.9 mg/dL Low 8.6-10.3 The [facility] Comment on above: Result Comment: Note updated reference ranges. Performed By: #### C H8, PHOS, MG ####[facility] [id number] [place], [place], Chloride [Moles/Vol] 105 mmol/L Normal 98-107 [facility] Comment on above: Result Comment: Note updated reference ranges. Performed By: #### C H8 PHOS, MG ####[facility] [id number] [place], CO2 [Moles/Vol] 28 mmol/L Normal 21-31 [facility] Comment on above: Result Comment: Note updated reference ranges. Performed By: #### C H8, PHOS, MG ####[facility] [id number] [place], Creatinine [Mass/Vol] 0.66 mg/dL Low 0.70-1.30 [facility] Comment on above: Result Comment: Note updated reference ranges. Performed By: #### C H8 PHOS, MG ####[facility] [id number] [place], ESTIMATED GFR (CKD-EPI) 98 mL/min/1.73sqm Normal >=60 [facility] Comment on above: Result Comment: 2020 [...] Inclusion of Race in Diagnosing Kidney Disease. [place] Journal of Kidney Diseases 2021;79(2):268-88.e1. 2. N Engl J Med 1 Vol. 385 Issue 19 Pages [phone] Performed By: #### C H8, PHOS, MG ####[facility] [id number] [place], Glucose [Mass/Vol] 116 mg/dL High 74-109 [facility] Comment on above: Performed By: #### C H8 PHOS, MG ####[facility] [id number] [place], Potassium [Moles/Vol] 4.4 mmol/L Normal 3.5-5.0 The [facility] Comment on above: Result Comment: Note updated reference ranges. Note updated reference ranges. Performed By: #### C H8MIGUEL, MG ####[facility] [id number] [place], Sodium [Moles/Vol] 139 mmol/L Normal 136-145 The [facility] Comment on above: Result Comment: Note updated reference ranges. Performed By: #### C H8 PHOVan, MG ####[facility] [id number] [place], Urea nitrogen [Mass/Vol] 19 mg/dL Normal 7-25 The [facility] Comment on above: Result Comment: Note updated reference ranges. Performed By: #### MIGUEL Carpenter MG ####[facility] [id number] [place], [place], Basic metabolic 2000 panelon 02-19-2023 Anion gap [Moles/Vol] 10 mmol/L 10 - 20 [facility] Calcium [Mass/Vol] 7.9 mg/dL Low 8.6 - 10. 3 mg/dL [facility] Chloride [Moles/Vol] 105 mmol/L 98 - 107 mmol/L [facility] CO2 [Moles/Vol] 28 mmol/L 21 - 31 mmol/L [facility] Creatinine [Mass/Vol] 0.66 mg/dL Low 0.70 - 1.30 mg/dL [facility] GFR/1.73 sq M.predicted CKD-EPI (S/P/Bld) [Vol rate/Area] 98 - PINF [facility] Glucose [Mass/Vol] 116 mg/dL High 74 - 109 mg/dL [facility] Interpretation and review of laboratory results Abnormal [facility] Potassium [Moles/Vol] 4.4 mmol/L 3.5 - 5.0 mmol/L [facility] Sodium [Moles/Vol] 139 mmol/L 136 - 145 mmol/L [facility] Urea nitrogen [Mass/Vol] 19 mg/dL 7 - 25 mg/dL [facility] CBC panel Auto (Bld)on 02-19 Erythrocyte distribution width (RBC) [Ratio] 14.5 % 11.5 - 14.5 % [facility] Hematocrit (Bld) [Volume fraction] 21.3 % Low 41.0 - 53.0 % [facility] Hemoglobin (Bld) [Mass/Vol] 7.3 g/dL Low 13.9 - 16.3 g/dL [facility] Interpretation and review of laboratory results Abnormal [facility] MCH (RBC) [Entitic mass] 30.9 pg 26.0 - 34.0 pg [facility] MCHC (RBC) [Mass/Vol] 34.5 g/dL 32.0 - 35.9 g/dL [facility] MCV (RBC) [Entitic vol] 90 fL 80 - 100 fL [facility] Platelet mean volume (Bld) [Entitic vol] 8.3 fL 7.5 - 11.2 fL [facility] Platelets (Bld) [#/Vol] 116 10*3/uL Low 150 - 400 K/uL [facility] RBC (Bld) [#/Vol] 2.38 10*6/uL Low [facility] WBC (Bld) [#/Vol] 5.7 10*3/uL 4.5 - 11.5 K/uL [facility] COMPLETE BLOOD COUNTon 02-19 Erythrocyte distribution width (RBC) [Ratio] 14.5 % Normal 11.5-14.5 The [facility] Comment on above: Performed By: #### ASIA Freitas PHOS #### S [facility] LABORAT[facility] [address] [place] [address], Hematocrit (Bld) [Volume fraction] 21.3 % Low 41.0-53.0 The [facility] Comment on above: Performed By: #### ASIA Freitas PHOS #### [facility] [address] [place] [address], Hemoglobin (Bld) [Mass/Vol] 7.3 g/dL Low 13.9-16.3 The [facility] Comment on above: Performed By: #### ASIA Freitas PHOS #### [facility] [address] [place] [address], MCH (RBC) [Entitic mass] 30.9 pg Normal 26.0-34.0 The [facility] Comment on above: Performed By: #### ASIA Freitas PHOS #### [facility] [address] [place] [address], MCHC (RBC) [Mass/Vol] 34.5 g/dL Normal 32.0-35.9 [facility] Comment on above: Performed By: #### ASIA Freitas, PHOS #### [facility] [address] [place] [address], MCV (RBC) [Entitic vol] 90 fL Normal 80-100 [facility] Comment on above: Performed By: #### AISA Freitas, PHOS #### [facility] [address] [place] [address], Platelet mean volume (Bld) [Entitic vol] 8.3 fL Normal 7.5-11.2 [facility] Comment on above: Performed By: #### ASIA Freitas, PHOS #### [facility] [address] [place] [address], Platelets (Bld) [#/Vol] 116 10*3/uL Low 150-400 [facility] Comment on above: Performed By: #### ASIA Freitas, PHOS #### [facility] [address] [place], [place], RBC (Bld) [#/Vol] 2.38 10*6/uL Low 4.50-5.90 [facility] Comment on above: Performed By: #### ASIA Freitas, PHOS #### S [facility]ATORY [address] [place] [address], WBC (Bld) [#/Vol] 5.7 10*3/uL Normal 4.5-11.5 [facility] Comment on above: Performed By: #### ASIA Freitas, PHOS #### S [facility] [address] [place] [address], Consultson 02-19-2023 House Officer Authentication Interface Message Text Dietitian vs DietaryTech: Dietary TechDiet Cytopathology Technologist Nutrition Screening Reason for visit: LOS 5 [...] continue to follow, TAMIKO French (Nutrition) Pager #[phone]. Normal [facility] MAGNESIUMon 02-19-2023 Magnesium [Mass/Vol] 2.0 mg/dL Normal 1.6-2.8 [facility] Comment on above: Performed By: #### Vijaya Mendoza, PHOS, MG ####[facility] [id number] [place], [place], Magnesium [Mass/Vol] 2.0 mg/dL 1.6 - 2.8 mg/dL [facility] Panel Informationon 02-19 Interpretation and review of laboratory results Normal [facility] PHOSPHORUSon 02-19-2023 Phosphate [Mass/Vol]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 STATUS Returned to d Bnk Normal The [facility] Comment on above: Performed By: #### P T #### [facility] [address] [place] [address], Performed By: #### ASIA Freitas, MIGUEL #### S PATHOLOGY LABORATORY [address] [place] [address], Performed By: #### Coby CORREA ####[facility] [id number] [place], BLOOD PRODUCT UNIT INFO [id number] Normal The [facility] Comment on above: Performed By: #### P T #### [facility] [address] [place] [address], BLOOD PRODUCT UNIT INFO [id number] Normal The [facility] Comment on above: Performed By: #### ASIA Freitas, PHOVan #### [facility] [address] [place] [address], BLOOD PRODUCT UNIT INFO [id number] Normal The [facility] Comment on above: Performed By: #### R MADELINE ####[facility] [id number] [place], BLOOD PRODUCT UNIT INFO [id number] Normal The [facility] Comment on above: Performed By: #### R BU ####[facility] [id number] [place], BLOOD PRODUCT UNIT TYPE 5100 Normal [facility] Comment on above: Result Comment: O Po s Performed By: #### P T #### [facility] [address] [place] [address], Performed By: #### ASIA Freitas PHOS #### [facility] [address] [place], [place], Performed By: #### Coby CORREA ####[facility] [id number] [place], CROSSMATCH INTERPRETATION Compatible (E) Normal [facility] Comment on above: Performed By: #### P T #### [facility] [address] [place], [place], Performed By: #### ASIA Freitas PHOS #### [facility] [address] [place], [place], Performed By: #### Coby CORREA ####S PATHOLOGY [id number] [place], [place], Transfer Documentson 023 Transfer Documents [id number] 1.00TIFF Normal [facility] VANCOMYCIN RANDOMon 02-19-20 23 VANC R 8.2 ug/mL Normal 5.0-40.0 [facility] Comment on above: Performed By: #### P T #### [facility] [address] [place], [place], Vancomycin [Mass/Vol] 8.2 ug/mL 5.0 - 40.0 ug/mL [facility] BASIC METABOLIC PANELon 01-25 Anion gap [Moles/Vol] 11 mmol/L Normal 10-20 [facility] Comment on above: Performed By: #### ASIA Freitas, FAVIOLAS #### [facility] [address] [place], [place], Calcium [Mass/Vol] 8.3 mg/dL Low 8.6-10.3 [facility] Comment on above: Result Comment: Note updated reference ranges. Performed By: #### ASIA Freitas, PHOS #### [facility] [address] [place], [place], Chloride [Moles/Vol] 105 mmol/L Normal 98-107 [facility] Comment on above: Result Comment: Note updated reference ranges. Performed By: #### ASIA Freitas, FAVIOLAS #### [facility] [address] [place], [place], CO2 [Moles/Vol] 24 mmol/L Normal 21-31 [facility] Comment on above: Result Comment: Note updated reference ranges. Performed By: #### ASIA Freitas, PHOS #### [facility] [address] [place], [place], Creatinine [Mass/Vol] 1.00 mg/dL Normal 0.70-1.30 [facility] Comment on above: Result Comment: Note updated reference ranges. Performed By: #### ASIA Freitas, FAVIOLAS #### [facility] [address] [place], [place], ESTIMATED GFR (CKD-EPI) 79 mL/min/1.73sqm Normal >=60 [facility] Comment on above: Result Comment: 2020 [...] Inclusion of Race in Diagnosing Kidney Disease. [place] Journal of Kidney Diseases 2021;79(2):268-88.e1. 2. N Engl J Med 1 Vol. 385 Issue 19 Pages 1011-4948 Performed By: #### ASIA Freitas PHOS #### [facility] [address] [place], [place], Glucose [Mass/Vol] 189 mg/dL High 74-109 [facility] Comment on above: Performed By: #### ASIA Freitas, FAVIOLAS #### [facility] [address] [place], [place], Potassium [Moles/Vol] 4.0 mmol/L Normal 3.5-5.0 [facility] Comment on above: Result Comment: Note updated reference ranges. Note updated reference ranges. Performed By: #### ASIA Freitas PHOS #### S PATHOLOGY LABORATORY [address] [place] [address], Sodium [Moles/Vol] 136 mmol/L Normal 136-145 [facility] Comment on above: Result Comment: Note updated reference ranges. Performed By: #### ASIA Freitas, FAVIOLAS #### S PATHOLOGY LABORATORY [address] [place] [address], Urea nitrogen [Mass/Vol] 36 mg/dL High 7-25 [facility] Comment on above: Result Comment: Note updated reference ranges. Performed By: #### ASIA Freitas, FAVIOLAS #### S PATHOLOGY LABORATORY [address] [place] [address], BLOOD GAS, ARTERIALon 2022 CR GEOVANNI -1.0 mmol/L Normal -2.0-3.0 [facility] Comment on above: Performed By: #### C BC #### [facility] [address] [place] [address], CR PCO2 38.6 mm Hg Normal 35.0-45.0 [facility] Comment on above: Performed By: #### C BC #### [facility] [address] [place] [address], CR PHA 7.395 Normal 7.350-7.450 [facility] Comment on above: Performed By: #### C BC #### S PATHOLOGY LABORATORY [address] [place] [address], CR PO2 81 mm Hg Normal 80-100 [facility] Comment on above: Performed By: #### C BC #### S PATHOLOGY LABORATORY [address] [place] [address], FIO2 (CATEGORY) 2 LPM Normal [facility] Comment on above: Performed By: #### C BC #### S PATHOLOGY LABORATORY [address] [place] [address], HCO3 (Bld) [Moles/Vol] 23 mmol/L Normal 21-28 [facility] Comment on above: Performed By: #### C BC #### S PATHOLOGY LABORATORY [address] [place] [address], MODE Nasal Canula Normal [facility] Comment on above: Performed By: #### C BC #### S PATHOLOGY LABORATORY [address] [place], [place], Oxygen saturation in Blood 96.1 % Normal 95.0-99.0 [facility] Comment on above: Performed By: #### C BC #### [facility] [address] [place], [place], BLOOD GAS, VENOUSon 02-18-20 CR ABEV -0.3 mmol/L Normal -2.0-3.0 [facility] Comment on above: Performed By: #### C BC #### [facility] [address] [place], [place], CR HCO3V 25 mmol/L Normal 21-28 [facility] Comment on above: Performed By: #### C BC #### [facility] [address] [place] [address], CR PHV 7.367 Normal 7.320-7.430 [facility] Comment on above: Performed By: #### C BC #### [facility] [address] [place] [address], CR PVCO2 43.8 mm Hg Normal 41.0-51.0 [facility] Comment on above: Performed By: #### C BC #### [facility] [address] [place] [address], CR PVO2 36 mm Hg Low 38-44 [facility] Comment on above: Performed By: #### C BC #### S PATHOLOGY LABORATORY [address] [place] [address], Oxygen saturation in Blood 67.1 % Low 70.0-80.0 [facility] Comment on above: Performed By: #### C BC #### [facility] [address] [place] [address], Basic metabolic 2000 panelon 02-17-2023 Anion gap [Moles/Vol] 11 mmol/L 10 - 20 Met [facility] Calcium [Mass/Vol] 8.3 mg/dL Low 8.6 - 10. 3 mg/dL [facility] Chloride [Moles/Vol] 105 mmol/L 98 - 107 mmol/L [facility] CO2 [Moles/Vol] 24 mmol/L 21 - 31 mmol/L [facility] Creatinine [Mass/Vol] 1.00 mg/dL 0.70 - 1.30 mg/dL [facility] GFR/1.73 sq M.predicted CKD-EPI (S/P/Bld) [Vol rate/Area] 79 - PINF [facility] Glucose [Mass/Vol] 189 mg/dL High 74 - 109 mg/dL [facility] Interpretation and review of laboratory results Abnormal [facility] Potassium [Moles/Vol] 4.0 mmol/L 3.5 - 5.0 mmol/L [facility] Sodium [Moles/Vol] 136 mmol/L 136 - 145 mmol/L [facility] Urea nitrogen [Mass/Vol] 36 mg/dL High 7 - 25 mg/dL [facility] CBC panel Auto (Bld)on 02-17 Erythrocyte distribution width (RBC) [Ratio] 14.9 % High 11.5 - 14.5 % [facility] Hematocrit (Bld) [Volume fraction] 29.5 % Low 41.0 - 53.0 % [facility] Hemoglobin (Bld) [Mass/Vol] 10.1 g/dL Low 13.9 - 16.3 g/dL [facility] Interpretation and review of laboratory results Abnormal [facility] MCH (RBC) [Entitic mass] 30.3 pg 26.0 - 34.0 pg [facility] MCHC (RBC) [Mass/Vol] 34.2 g/dL 32.0 - 35.9 g/dL [facility] MCV (RBC) [Entitic vol] 89 fL 80 - 100 fL [facility] Platelet mean volume (Bld) [Entitic vol] 8.6 fL 7.5 - 11.2 fL [facility] Platelets (Bld) [#/Vol] 145 10*3/uL Low 150 - 400 K/uL [facility] RBC (Bld) [#/Vol] 3.33 10*6/uL Low [facility] WBC (Bld) [#/Vol] 9.9 10*3/uL 4.5 - 11.5 K/uL [facility] COMPLETE BLOOD COUNTon 02-17 Erythrocyte distribution width (RBC) [Ratio] 14.9 % High 11.5-14.5 The [facility] Comment on above: Performed By: #### C BC ####[facility] [id number] [place], Hematocrit (Bld) [Volume fraction] 29.5 % Low 41.0-53.0 The [facility] Comment on above: Performed By: #### C BC ####[facility] [id number] [place], Hemoglobin (Bld) [Mass/Vol] 10.1 g/dL Low 13.9-16.3 The [facility] Comment on above: Performed By: #### C BC ####[facility] [id number] [place], MCH (RBC) [Entitic mass] 30.3 pg Normal 26.0-34.0 The [facility] Comment on above: Performed By: #### C BC ####[facility] [id number] [place], MCHC (RBC) [Mass/Vol] 34.2 g/dL Normal 32.0-35.9 The [facility] Comment on above: Performed By: #### C BC ####[facility] [id number] [place], MCV (RBC) [Entitic vol] 89 fL Normal 80-100 The [facility] Comment on above: Performed By: #### C BC ####[facility] [id number] [place], Platelet mean volume (Bld) [Entitic vol] 8.6 fL Normal 7.5-11.2 The [facility] Comment on above: Performed By: #### C BC ####[facility] [id number] [place], Platelets (Bld) [#/Vol] 145 10*3/uL Low 150-400 The [facility] Comment on above: Performed By: #### C BC ####[facility] [id number] [place], RBC (Bld) [#/Vol] 3.33 10*6/uL Low 4.50-5.90 [facility] Comment on above: Performed By: #### C BC ####S PATHOLOGY [id number] [place], [place], WBC (Bld) [#/Vol] 9.9 10*3/uL Normal 4.5-11.5 [facility] Comment on above: Performed By: #### C BC ####[facility] [id number] [place], [place], Care Plan Noteon 02-17-2023 House Officer Authentication Interface Message Text Problem: Routine Care: [...] will be met Outcome: Progressing Normal [facility] Consultson 02-17-2023 House Officer Authentication Interface Message Text PHYSICAL/OCCUPATIONAL THERAPY Attempted to see patient for PT/OT evals this date. Patient scheduled for OR this date for fixation of left femur fracture. Will follow up post-operative as able and medically appropriate. Sylvia Alcantara PT Normal [facility] GLUCOSE, FINGERSTICK-IN OFFI CEon 02-17-2023 Glucose [Mass/Vol] 140 mg/dL High 80-116 The [facility] Comment on above: Performed By: #### 8 2948 #### NURSING GLUCOSE PROGRAM [address] [place], [address] Glucose [Mass/Vol] 140 mg/dL High 80 - 116 mg/dL [facility] Interpretation and review of laboratory results Abnormal [facility] MAGNESIUMon 02-17-2023 Magnesium [Mass/Vol] 1.7 mg/dL Normal 1.6-2.8 The [facility] Comment on above: Performed By: #### C BC #### [facility] [address] [place], [place], Magnesium [Mass/Vol] 1.7 mg/dL 1.6 - 2.8 mg/dL [facility] MRSA SCREENOrdered By: Shari Ceja on 02-17-2023 Interpretation and review of laboratory results Normal [facility] MRSA isol Org specific cx Ql (Nose) No methicillin resistant Staphylococcus aureus isolated. No methicillin resistant Staphylococcus aureus isolated. [facility] No Panel Informationon 02-17 Interpretation and review of laboratory results Normal [facility] PHOSPHORUSon 02-17-2023 Phosphate [Mass/Vol] 2.6 mg/dL Normal 2.3-4.2 [facility] Comment on above: Performed By: #### C BC #### [facility] [address] [place], [place], Phosphate [Mass/Vol] 2.6 mg/dL 2.3 - 4.2 mg/dL [facility] Progress Noteson 02-17-2023 House Officer Authentication Interface Message Text -------- GENERAL INFORMATION [...] rib 9-10 fracture was seen at [facility].The patient had 5 packs of RBCs, 3 packs of FFP, 1 platelet, TXA and Vit K from when he arrived to [facility] and in transit. 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 Normal [facility] XR CHEST AP OR PA 1 [...] above: Performed By: #### 8 2948 #### [facility] GLUCOSE PROGRAM [address] [place] [address], [address] BASIC METABOLIC PANELon 01-25 Anion gap [Moles/Vol] 14 mmol/L Normal 10-20 [facility] Comment on above: Performed By: #### C BC #### [facility] [address] [place] [address], Calcium [Mass/Vol] 8.3 mg/dL Low 8.6-10.3 [facility] Comment on above: Result Comment: Note updated reference ranges. Performed By: #### C BC #### S PATHOLOGY LABORATORY [address] [place] [address], Chloride [Moles/Vol] 109 mmol/L High 98-107 [facility] Comment on above: Result Comment: Note updated reference ranges. Performed By: #### C BC #### [facility] [address] [place] [address], CO2 [Moles/Vol] 20 mmol/L Low 21-31 [facility] Comment on above: Result Comment: Note updated reference ranges. Performed By: #### C BC #### [facility] [address] [place] [address], Creatinine [Mass/Vol] 1.38 mg/dL High 0.70-1.30 [facility] Comment on above: Result Comment: Note updated reference ranges. Performed By: #### C BC #### S PATHOLOGY LABORATORY [address] [place], [place], ESTIMATED GFR (CKD-EPI) 54 mL/min/1.73sqm Low [...] Inclusion of Race in Diagnosing Kidney Disease. [place] Journal of Kidney Diseases 2021;79(2):268-88.e1. 2. N Engl J Med 1 Vol. 385 Issue 19 Pages 1585-0355 Performed By: #### C BC #### [facility] [address] [place], [place], Glucose [Mass/Vol] 171 mg/dL High 74-109 [facility] Comment on above: Performed By: #### C BC #### [facility] [address] [place], [place], Potassium [Moles/Vol] 4.5 mmol/L Normal 3.5-5.0 [facility] Comment on above: Result Comment: Note updated reference ranges. Note updated reference ranges. Performed By: #### C BC #### [facility] [address] [place], [place], Sodium [Moles/Vol] 138 mmol/L Normal 136-145 [facility] Comment on above: Result Comment: Note updated reference ranges. Performed By: #### C BC #### S PATHOLOGY LABORATORY [address] [place], [place], Urea nitrogen [Mass/Vol] 38 mg/dL High 7-25 [facility] Comment on above: Result Comment: Note updated reference ranges. Performed By: #### C BC #### S PATHOLOGY LABORATORY [address] [place], [place], Anion gap [Moles/Vol] 13 mmol/L Normal 10-20 [facility] Comment on above: Performed By: #### C BC #### S PATHOLOGY LABORATORY [address] [place], [place], Calcium [Mass/Vol] 9.8 mg/dL Normal 8.6-10.3 [facility] Comment on above: Result Comment: Note updated reference ranges. Performed By: #### C BC #### [facility] [address] [place], [place], Chloride [Moles/Vol] 111 mmol/L High 98-107 [facility] Comment on above: Result Comment: Note updated reference ranges. Performed By: #### C BC #### S PATHOLOGY LABORATORY [address] [place], [place], CO2 [Moles/Vol] 25 mmol/L Normal 21-31 [facility] Comment on above: Result Comment: Note updated reference ranges. Performed By: #### C BC #### [facility] [address] [place], [place], Creatinine [Mass/Vol] 1.12 mg/dL Normal 0.70-1.30 [facility] Comment on above: Result Comment: Note updated reference ranges. Performed By: #### C BC #### [facility] [address] [place], [place], ESTIMATED GFR (CKD-EPI) 69 mL/min/1.73sqm Normal >=60 [facility] Comment on above: Result Comment: 2020 [...] Inclusion of Race in Diagnosing Kidney Disease. [place] Journal of Kidney Diseases 2021;79(2):268-88.e1. 2. N Engl J Med 1 Vol. 385 Issue 19 Pages 9777-6700 Performed By: #### C BC #### S PATHOLOGY LABORATORY [address] [place], [place], Glucose [Mass/Vol] 130 mg/dL High 74-109 The [facility] Comment on above: Performed By: #### C BC #### S PATHOLOGY LABORATORY [address] [place], [address] Potassium [Moles/Vol] 5.3 mmol/L High 3.5-5.0 [facility] Comment on above: Result Comment: Note updated reference ranges. Note updated reference ranges. Performed By: #### C BC #### [facility] [address] [place], [address] Sodium [Moles/Vol] 144 mmol/L Normal 136-145 [facility] Comment on above: Result Comment: Note updated reference ranges. Performed By: #### C BC #### [facility] [address] [place], [place], Urea nitrogen [Mass/Vol] 27 mg/dL High 7-25 [facility] Comment on above: Result Comment: Note updated reference ranges. Performed By: #### C BC #### [facility] [address] [place], [place], Anion gap [Moles/Vol] 12 mmol/L Normal 10-20 [facility] Comment on above: Performed By: #### 8 2948 #### NURSING GLUCOSE PROGRAM [address] [place], [address] Calcium [Mass/Vol] 10.2 mg/dL Normal 8.6-10.3 The [facility] Comment on above: Result Comment: Note updated reference ranges. Performed By: #### 8 2948 #### NURSING GLUCOSE PROGRAM [address] [place], [address] Chloride [Moles/Vol] 108 mmol/L High 98-107 [facility] Comment on above: Result Comment: Note updated reference ranges. Performed By: #### 8 2948 #### NURSING GLUCOSE PROGRAM [address] [place], [address] CO2 [Moles/Vol] 28 mmol/L Normal 21-31 [facility] Comment on above: Result Comment: Note updated reference ranges. Performed By: #### 8 2948 #### NURSING GLUCOSE PROGRAM [address] [place], [address] Creatinine [Mass/Vol] 1.02 mg/dL Normal 0.70-1.30 [facility] Comment on above: Result Comment: Note updated reference ranges. Performed By: #### 8 2948 #### NURSING GLUCOSE PROGRAM [address] [place], [address] ESTIMATED GFR (CKD-EPI) 77 mL/min/1.73sqm Normal >=60 [...] Inclusion of Race in Diagnosing Kidney Disease. [place] Journal of Kidney Diseases 2021;79(2):268-88.e1. 2. N Engl J Med 1 Vol. 385 Issue 19 Pages 5750-2709 Performed By: #### 8 2948 #### NURSING GLUCOSE PROGRAM [address] [place], [address] Glucose [Mass/Vol] 125 mg/dL High 74-109 [facility] Comment on above: Performed By: #### 8 2948 #### NURSING GLUCOSE PROGRAM [address] [place], [address] Potassium [Moles/Vol] 4.5 mmol/L Normal 3.5-5.0 [facility] Comment on above: Result Comment: Note updated reference ranges. Note updated reference ranges. Performed By: #### 8 2948 #### NURSING GLUCOSE PROGRAM [address] [place], [address] Sodium [Moles/Vol] 143 mmol/L Normal 136-145 [facility] Comment on above: Result Comment: Note updated reference ranges. Performed By: #### 8 2948 #### NURSING GLUCOSE PROGRAM [address] [place], [address] Urea nitrogen [Mass/Vol] 25 mg/dL Normal 7-25 [facility] Comment on above: Result Comment: Note updated reference ranges. Performed By: #### 8 2948 #### NURSING GLUCOSE PROGRAM [address] [place], [address] BLOOD CULTUREon 02-16-2023 Bacteria identified Cx Nom (Bld) C BLOOD: No Growth Normal [facility] Comment on above: Performed By: #### M Meredith CH8, MIGUEL #### [facility] [address] [place], [address] BLOOD GAS, ARTERIALon 2022 Base excess Calc [...] [Moles/Vol] 14 mmol/L 10 - 20 [facility] Calcium [Mass/Vol] 8.3 mg/dL Low 8.6 - 10. 3 mg/dL [facility] Chloride [Moles/Vol] 109 mmol/L High 98 - 107 mmol/L [facility] CO2 [Moles/Vol] 20 mmol/L Low 21 - 31 mmol/L [facility] Creatinine [Mass/Vol] 1.38 mg/dL High 0.70 - 1.30 mg/dL [facility] GFR/1.73 sq M.predicted CKD-EPI (S/P/Bld) [Vol rate/Area] 54 Low - PINF [facility] Glucose [Mass/Vol] 171 mg/dL High 74 - 109 mg/dL [facility] Interpretation and review of laboratory results Abnormal [facility] Potassium [Moles/Vol] 4.5 mmol/L 3.5 - 5.0 mmol/L [facility] Sodium [Moles/Vol] 138 mmol/L 136 - 145 mmol/L [facility] Urea nitrogen [Mass/Vol] 38 mg/dL High 7 - 25 mg/dL [facility] Anion gap [Moles/Vol] 13 mmol/L 10 - 20 [facility] Calcium [Mass/Vol] 9.8 mg/dL 8.6 - 10. 3 mg/dL [facility] Chloride [Moles/Vol] 111 mmol/L High 98 - 107 mmol/L [facility] CO2 [Moles/Vol] 25 mmol/L 21 - 31 mmol/L [facility] Creatinine [Mass/Vol] 1.12 mg/dL 0.70 - 1.30 mg/dL [facility] GFR/1.73 sq M.predicted CKD-EPI (S/P/Bld) [Vol rate/Area] 69 - PINF [facility] Glucose [Mass/Vol] 130 mg/dL High 74 - 109 mg/dL [facility] Potassium [Moles/Vol] 5.3 mmol/L High 3.5 - 5.0 mmol/L [facility] Sodium [Moles/Vol] 144 mmol/L 136 - 145 mmol/L [facility] Urea nitrogen [Mass/Vol] 27 mg/dL High 7 - 25 mg/dL [facility] Blood Bank Slipon 02-16-2023 Blood Bank Slip [id number] 0 [id number]# 1.00TIFF Normal [facility] CALCIUM, IONIZEDon 3 CR ICA 1.34 mmol/L High 1.15-1.33 [facility] Comment on above: Result Comment: This test was developed, and its performance characteristics determined by the Department of Pathology of [facility]. It has not been cleared or approved by the FDA. This test is used for clinical purposes only. Performed By: #### C R ICA ####[facility] [id number] [place], [place], Calcium.ionized (Bld) [Moles/Vol] 1.34 mmol/L High 1.15 - 1.33 mmol/L [facility] Interpretation and review of laboratory results Abnormal [facility] CR ICA 1.24 mmol/L Normal 1.15-1.33 [facility] Comment on above: Result Comment: This test was developed, and its performance characteristics determined by the Department of Pathology of [facility]. It has not been cleared or approved by the FDA. This test is used for clinical purposes only. Performed By: #### Vijaya BC #### [facility] [address] [place], [place], CALCIUM, IONIZEDOrdered By: Vivian Pena on 02-16-2023 Calcium.ionized (Bld) [Moles/Vol] 1.24 mmol/L 1.15 - 1.33 mmol/L [facility] Interpretation and review of laboratory results Normal [facility] CBC WITH DIFFERENTIALon 01-25 Basophils (Bld) [#/Vol] 0.01 10*3/uL Normal 0.00-0.20 [facility] Comment on above: Performed By: #### ASIA Freitas PHOS #### [facility] [address] [place], [place], Basophils/100 WBC (Bld) 0.1 % Normal <=1.9 [facility] Comment on above: Performed By: #### ASIA Freitas, PHOS #### S PATHOLOGY LABORATORY [address] [place], [place], Eosinophils (Bld) [#/Vol] 0.00 10*3/uL Normal 0.00-0.70 [facility] Comment on above: Performed By: #### ASIA Freitas PHOS #### S PATHOLOGY LABORATORY [address] [place], [place], Eosinophils/100 WBC (Bld) 0.0 % Low 0.1-4.0 [facility] Comment on above: Performed By: #### ASIA Freitas, PHOS #### [facility] [address] [place] [address], Erythrocyte distribution width (RBC) [Ratio] 14.9 % High 11.5-14.5 [facility] Comment on above: Performed By: #### ASIA Freitas, PHOS #### [facility] [address] [place] [address], Hematocrit (Bld) [Volume fraction] 38.9 % Low 41.0-53.0 [facility] Comment on above: Performed By: #### ASIA Freitas, PHOS #### [facility] [address] [place] [address], Hemoglobin (Bld) [Mass/Vol] 12.9 g/dL Low 13.9-16.3 [facility] Comment on above: Performed By: #### ASIA Freitas, PHOS #### S PATHOLOGY LABORATORY [address] [place] [address], Lymphocytes (Bld) [#/Vol] 0.42 10*3/uL Low 1.00-4.80 [facility] Comment on above: Performed By: #### ASIA Freitas, PHOS #### S PATHOLOGY LABORATORY [address] [place] [address], Lymphocytes/100 WBC (Bld) 3.3 % Low 24.0-44.0 [facility] Comment on above: Performed By: #### ASIA Freitas, PHOS #### [facility] [address] [place] [address], MCH (RBC) [Entitic mass] 29.6 pg Normal 26.0-34.0 [facility] Comment on above: Performed By: #### ASIA Freitas, PHOS #### [facility] [address] [place] [address], MCHC (RBC) [Mass/Vol] 33.2 g/dL Normal 32.0-35.9 [facility] Comment on above: Performed By: #### ASIA Freitas, PHOS #### [facility] [address] [place] [address], MCV (RBC) [Entitic vol] 89 fL Normal 80-100 [facility] Comment on above: Performed By: #### ASIA Freitas, PHOS #### S PATHOLOGY LABORATORY [address] [place] [address], MONOCYTE DISTRIBUTION WIDTH 20 Normal <=20 [facility] Comment on above: Performed By: #### ASIA Freitas, PHOS #### S PATHOLOGY LABORATORY [address] [place] [address], Monocytes (Bld) [#/Vol] 1.18 10*3/uL High 0.20-1.00 [facility] Comment on above: Performed By: #### ASIA Freitas, PHOS #### S PATHOLOGY LABORATORY [address] [place] [address], Monocytes/100 WBC (Bld) 9.1 % Normal 2.0-11.0 [facility] Comment on above: Performed By: #### ASIA Freitas, PHOS #### S PATHOLOGY LABORATORY [address] [place] [address], Neutrophils (Bld) [#/Vol] 11.30 10*3/uL High 1.50-8.00 [facility] Comment on above: Performed By: #### ASIA Freitas, PHOS #### S PATHOLOGY LABORATORY [address] [place] [address], Neutrophils/100 WBC (Bld) 87.5 % High 31.0-76.0 The [facility] Comment on above: Performed By: #### ASIA Freitas, PHOS #### S PATHOLOGY LABORATORY [address] [place] [address], Platelet mean volume (Bld) [Entitic vol] 7.8 fL Normal 7.5-11.2 [facility] Comment on above: Performed By: #### ASIA Freitas, PHOS #### S PATHOLOGY LABORATORY [address] [place] [address], Platelets (Bld) [#/Vol] 149 10*3/uL Low 150-400 [facility] Comment on above: Performed By: #### ASIA Freitas, PHOS #### [facility] [address] [place], [place], RBC (Bld) [#/Vol] 4.36 10*6/uL Low 4.50-5.90 [facility] Comment on above: Performed By: #### ASIA Freitas, PHOS #### [facility] [address] [place], WBC (Bld) [#/Vol] 12.9 10*3/uL High 4.5-11.5 [facility] Comment on above: Performed By: #### ASIA Freitas, PHOS #### S PATHOLOGY LABORATORY [address] [place], [place], CBC panel Auto (Bld)Ordered By: Wesley Maloney on 02-16-2023 Erythrocyte distribution width (RBC) [Ratio] 14.8 % High 11.5 - 14.5 % [facility] Hematocrit (Bld) [Volume fraction] 30.0 % Low 41.0 - 53.0 % [facility] Hemoglobin (Bld) [Mass/Vol] 10.2 g/dL Low 13.9 - 16.3 g/dL [facility] Interpretation and review of laboratory results Abnormal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 #### 2 [id number] #### [facility] [address] [place] [address] POCT PT/INRon 09-06-2022 POCT INR 1.8 High .7-1.2 [facility] Comment on above: Performed By: #### 1 [id number], [id number], [id number], [id number] #### [facility] [address] [place] [address] POCT PT 19.9 second(s) High 8.0-15.0 [facility] Comment on above: Performed By: #### 1 [id number], [id number], [id number], [id number] #### [facility] [address] [place] [address] Tobacco Screening.on 023 Fall risk assessment a) No falls within the last year [facility] [address] DO Work Phone: Tobacco use status [facility] b) No -[facility] 250 DO Work Phone: Tobacco Screening. Yes [facility] 250 DO Work Phone: Operative [...] rhythm. Crispin Porter M.D. ca Dictated: 08/02/2022 [id number] Transcribed: 08/03/2022 Normal [facility] Comment on above: Result Comment: Elec tronically Signed By: German ESCOBEDO, Christopher Castro\Date and Time Signed: 08/19/22 13:42 EDT POCT PT/INRon 08-16-2022 POCT INR 3.1 High .7-1.2 [facility] Comment on above: Performed By: #### 2 [id number] #### [facility] [address] [place] [address] POCT PT 32.7 second(s) High 8.0-15.0 [facility] Comment on above: Performed By: #### 2 [id number] #### [facility] [address] [place] [address] Falls Screening (Age 18+)on 08-13-2022 Fall risk assessment a) No falls within the last year [facility] [address] DO Work Phone: Consent for Procedure/Surger yon 08-05-2022 Consent for Procedure/Surgery [id number] .00CD:127 Normal [facility] Monitor Recordon 08-05-2022 Monitor Record [id number] .00CD:127 Normal [facility] Cardiovascular Reporton Cardiovascular Report [id number]# 1.00CD:127 [facility] Consent for Treatmenton Consent for Treatment [id number] .00CD:127 Normal [facility] Consultation Noteon 08-03-19 23 Consultation Note Patient: FREDRICK STROUD Age: 71 [...] of Adverse/Allergic Reaction to Sedation: None. Normal [facility] Comment on above: Result Comment: Elec tronically Signed By: Christopher Porter MD\.carol\Date and Time Signed: 08/02/22 12:50 EDT Inpatient Clinical Summaryon 08-02-2022 Inpatient Clinical Summary [address] [address] Clinical Summary Person Information: Name: FREDRICK STROUD Age: 71 Years : 1950 Sex: Male PCP: KARINA MELGAR MD Marital Status: Phone: [phone] Race: White Ethnicity: Non- or Language: Stateless Visit Id: Visit Reason: I48.19 Speciality: Acuity: Enc Type: Ambulatory/Same Day Surgery Med Service: Cardiovascular Arrival: 08/02/2022 11:37:14 Discharge: Dispo Type: Address: [address] [place] [phone] Provider Notes: Diagnosis: Atrial fibrillation Problems Active [...] This Visit Final Med List: acetaminophen-hydroco done ([place] 325 mg-5 mg oral tablet) 1 Tablets [...] MD Follow up: With: Address: When: [facility], [facility] [address] [place] [address] Business (1) Comments: Call for followup appointment Type Location Start Finish State Anticoagulation Follow Up 15 (FT) FT.CARDIO 08/16/2022 11:15 AM 08/16/2022 11:30 AM Confirmed Patient Education Information: CV - Cardioversion (CUSTOM) [facility] Inpatient Patient Summaryon 08-02-2022 Inpatient Patient Summary [address] [address] Patient Discharge Instructions PERSON INFORMATION Name: FREDRICK STROUD Madhu Date of : 1950 Current Date: 08/02/2022 [...] up: With: Address: When: Christopher Porter [facility], [facility] [address] [place] [address] Business (1) Comments: Call for followup appointment [...] with No Changes Other Medications acetaminophen-hydroco done ([place] 325 mg-5 mg oral tablet) 1 Tablets [...] WITH YOU AT ALL TIMES. acetaminophen-hydroco done ([place] 325 mg-5 mg oral tablet) 1 Tablets [...] Pharmacy Information: Comment: PATIENT EDUCATION INFORMATION Instructions: [place], [place] CARDIOVERSION AFTER THE PROCEDURE: DIET: ? [...] (more content not included)... Normal [facility] Laboratory - Chemistry and C hemistry - challengeon 08-02-2022 CO2 [Moles/Vol] 27 mmol/L Normal 21-31 [facility] y 250 DO Work Phone: Laboratory - Coagulationon 0 08-02-2022 INR Coag (Bld) [Relative time] 3.5 {INR} [facility] y 250 DO Work Phone: Comment on above: INR results are spec ifically intended to assess patients stabilized on long-term Anticoagulation therapy suggested INR?s ?Less Intensive Anticoagulation? 2.0 ? 3.0Conventional Range 3.0 ? 4.5 Lyteson 08-02-2022 Anion gap [Moles/Vol] 12 mmol/L Normal 6-16 [facility] Comment on above: Order Comment: STAT on admission. Performed By: #### 2 [id number] #### [facility] [address] [place] [address] Chloride [Moles/Vol] 104 mmol/L Normal 101-111 [facility] Comment on above: Order Comment: STAT on admission. Performed By: #### 2 [id number] #### [facility] [address] [place] [address] CO2 [Moles/Vol] 27 mmol/L Normal 21-31 [facility] Comment on above: Order Comment: STAT on admission. Performed By: #### 2 [id number] #### [facility] [address] [place] [address] Potassium [Moles/Vol] 4.5 mmol/L Normal 3.5-5.3 [facility] Comment on above: Order Comment: STAT on admission. Performed By: #### 2 [id number] #### [facility] [address] [place] [address] Sodium [Moles/Vol] 138 mmol/L Normal 135-145 [facility] Comment on above: Order Comment: STAT on admission. Performed By: #### 2 [id number] #### [facility] [address] [place] [address] No Panel Informationon 08-02 12 {mEq/L} Normal 6-16 [facility] 250 DO Work Phone: [phone] 104 mmol/L Normal 101-111 [facility] Work Phone: [phone] 4.5 mmol/L Normal 3.5-5.3 [facility] y 250 DO Work Phone: [phone] 138 mmol/L Normal 135-145 [facility] Work Phone: [phone] 41.2 {second(s)} above high threshold 9.4-12.5 [facility] DO Work Phone: [phone] Comment on above: 15 days - 4 [...] the same coagulation reagent and instrumentation as [facility]. Currently there are no coagulation studies available worldwide for children to 14 days, and no normal ranges. PTon 08-02-2022 INR Coag (PPP) [Relative time] 3.5 {INR} Invalid Interpretation Code [facility] Comment on above: Order Comment: On ad mission if patient is on Coumadin therapy. Result Comment: INR results are specifically intended to assess patients stabilized on long-term Anticoagulation therapy suggested INR?s ?Less Intensive Anticoagulation? 2.0 ? 3.0 Conventional Range 3.0 ? 4.5 Performed By: #### 2 [id number] #### [facility] [address] [place] [address] PT Coag (PPP) [Time] 41.2 second(s) High 9.4-12.5 [facility] Comment on above: Order Comment: On [...] the same coagulation reagent and instrumentation as [facility]. Currently there are no coagulation studies available worldwide for children to 14 days, and no normal ranges. Performed By: #### 2 [id number] #### [facility] [address] [place] [address] Patient Education - Texton 0 08-02-2022 Patient Education - Text [place], [place] CARDIOVERSION AFTER THE PROCEDURE: DIET: ? [...] event you are unable to reach your job foreman, please call [facility] at [phone] and the single pointed operator will assist you in contacting your [...] turn cold or blue. Normal [facility] Progress Note-Physicianon Progress Note-Physician Patient: FREDRICK STROUD Age: 71 years Sex: Male : 1950 Associated Diagnoses: None Author: German ESCOBEDO, Christopher Bansal Impression and Plan DCC WITH PROPAFOL 70 MG AND 200 J SYNC ONCE TO NSR SAT>95 % NO NEURO CHANGES PLAN HOME ON SAME RX Normal [facility] Comment on above: Result Comment: Elec tronically Signed By: Christopher Porter MD\.br\Date and Time Signed: 08/02/22 13:03 EDT POCT PT/INRon 07-26-2022 POCT INR 2.7 High .7-1.2 [facility] Comment on above: Performed By: #### 2 [id number] #### [facility] [address] [place] [address] POCT PT 29.2 second(s) High 8.0-15.0 [facility] Comment on above: Performed By: #### 2 [id number] #### [facility] [address] [place] [address] POCT PT/INRon 07-19-2022 POCT INR 3.2 High .7-1.2 [facility] Comment on above: Performed By: #### 2 [id number] ####[facility] [address] [place] [address] POCT PT 34.5 second(s) High 8.0-15.0 [facility] Comment on above: Performed By: #### 2 [id number] ####[facility] [address] [place] [address] Physician Orderon 07-16-2022 Physician Order [id number]#1 .00CD:127 Normal [facility] POCT PT/INRon 07-12-2022 POCT INR 4.3 High .7-1.2 [facility] Comment on above: Performed By: #### 1 [id number], [id number], [id number], [id number] #### [facility] [address] [place] [address] POCT PT 45.1 second(s) High 8.0-15.0 [facility] Comment on above: Performed By: #### 1 [id number], [id number], [id number], [id number] #### [facility] [address] [place] [address] Falls Screening (Age 18+)on 07-05-2022 Fall risk assessment a) No falls within the last year [facility] [address] DO Work Phone: Tobacco use status [facility] b) No [facility] Work Phone: Office Visit (Cardiology)on [...] 2 MG Oral TabletTake as directed by [facility] coumadin clinic Zinc 50 MG [...] negative for complaint. Vitals Vital Signs Recorded: [id number] 09:08AM Heart Rate72, Apical Mxsyunqe127, LUE, Sitting Knujzgmiu66, LUE, Sitting Height5 ft 6 in Gbndpr260 lb BMI Ffukafrsin92.54 kg/m2 BSA Calculated2.18 Tobacco Useb) No F (more content not included)... Normal [facility] POCT PT/INRon 06-26-2022 POCT INR See Comment Invalid Interpretation Code .7-1.2 [facility] Comment on above: Result Comment: Test ing error, please disregard previously charted results Performed By: #### 1 [id number], [id number], [id number], [id number] #### [facility] [address] [place] [address] POCT PT See Comment Invalid Interpretation Code 8.0-15.0 [facility] Comment on above: Result Comment: Test ing error, please disregard previously charted results Performed By: #### 1 [id number], [id number], [id number], [id number] #### [facility] Laboratory [address] [place] [address] ECG 12 lead ECGon 06-11-2022 ECG 12 lead ECG [facility] Main [address] [address] Electrocardiograph Report Signed Patient: Fredrick Stroud MR#: [id number] : 1950 Acct:[id number] Age/Sex: 71 / M ADM Date: 06/11/22 Loc: EL Room: Type: [facility] SDC Attending Dr: Christopher Porter [...] Wisam Torre MD 0 06/11/22 1650 Normal [facility] ECG post procedureon 023 ECG post procedure [address] [address] Electrocardiograph Report Signed Patient: Fredrick Stroud MR#: [id number] : 1950 Acct:[id number] Age/Sex: 71 / M ADM Date: 06/11/22 Loc: EL Room: Type: [facility] SDC Attending Dr: Christopher Porter [...] Wisam Torre MD 0 06/11/22 1650 Normal [facility] Electrolyteson 06-11-2022 Anion gap [Moles/Vol] 12.3 mmol/L Normal 6.0-15.0 [facility] Comment on above: Result Comment: PERF ORMED BY: [place] [address] PATHOLOGIST PROFESSOR OF GEOGRAPHY EYAD HOWARD M.D. Performed By: #### C BC, CMP, HS TROP, BNP #### [facility] [address] [place] [address] [place] Chloride [Moles/Vol] 103 mmol/L Normal 98-107 [facility] Comment on above: Performed By: #### C BC, CMP, HS TROP, BNP #### [facility] [address] [place] [id number] [place] CO2 [Moles/Vol] 28.2 mmol/L Normal 21.0-31.0 [facility] Comment on above: Performed By: #### C BC, CMP, HS TROP, BNP #### [facility] [address] [place] [id number] [place] Potassium [Moles/Vol] 4.5 mmol/L Normal 3.5-5.1 [facility] Comment on above: Performed By: #### C BC, CMP, HS TROP, BNP #### [facility] [address] Sodium [Moles/Vol] 139 mmol/L Normal 136-145 [facility] Comment on above: Performed By: #### C BC, CMP, HS TROP, BNP #### [facility] [address] No Panel Informationon 06-11 12.3\S\12.3 Normal 6.0-15.0 [facility] 250 DO Work Phone: Comment on above: PERFORMED BY:[facility] [place], [place] [id number] MEDICAL DIRECTOREYAD HOWARD M.D. 28.2\S\28.2 Normal 21.0-31.0 [facility] 250 DO Work Phone: 103\S\103 Normal 98-107 [facility] 250 DO Work Phone: [phone] 4.5\S\4.5 Normal 3.5-5.1 [facility] 250 DO Work Phone: [phone] 139\S\139 Normal 136-145 [facility] DO Work Phone: [phone] POCT PT/INRon 06-07-2022 POCT INR 2.7 High .7-1.2 [facility] Comment on above: Performed By: #### 2 [id number] #### [facility] [address] [place] [address] POCT PT 28.8 second(s) High 8.0-15.0 [facility] Comment on above: Performed By: #### 2 [id number] #### [facility] [address] [place] [address] POCT PT/INRon 05-28-2022 POCT INR 2.8 High .7-1.2 [facility] Comment on above: Performed By: #### 1 [id number], [id number], [id number], [id number] #### [facility] Laboratory [address] [place] [place] [address] POCT PT 30.6 second(s) High 8.0-15.0 [facility] Comment on above: Performed By: #### 1 [id number], [id number], [id number], [id number] #### [facility] Laboratory [address] [place] [place] [address] POCT INR Error Invalid Interpretation Code .7-1.2 [facility] Comment on above: Performed By: #### 2 [id number] #### [facility] [address] [place] [address] POCT PT Strip Error Invalid Interpretation Code 8.0-15.0 [facility] Comment on above: Performed By: #### 2 [id number] #### [facility] [address] [place] [address] POCT PT/INRon 05-21-2022 POCT INR 3.1 High .7-1.2 [facility] Comment on above: Performed By: #### 1 [id number], 09505989, [id number], [id number] #### [facility] [address] [place] [address] POCT PT 33.1 second(s) High 8.0-15.0 [facility] Comment on above: Performed By: #### 1 [id number], [id number], [id number], [id number] #### [facility] [address] [place] [address] POCT PT/INRon 05-14-2022 POCT INR 3.2 High .7-1.2 [facility] Comment on above: Performed By: #### 2 [id number] ####[facility] [address] [place] [address] POCT PT 34.5 second(s) High 8.0-15.0 [facility] Comment on above: Performed By: #### 2 [id number] ####[facility] [address] [place] [address] POCT INR Error Invalid Interpretation Code .7-1.2 [facility] Comment on above: Performed By: #### 2 [id number] #### [facility] [address] [place] [address] POCT PT Strip Error Invalid Interpretation Code 8.0-15.0 [facility] Comment on above: Performed By: #### 2 [id number] #### [facility] [address] [place] [address] Falls Screening (Age 18+)on 05-02-2022 Fall risk assessment a) No falls within the last year -[facility] 600 DO Work Phone: Progress Note-Physicianon Progress [...] stroke: no 4. Serious co-morbid conditions (recent SD, anemia with Hct <30%, CRI with SCr > 1.5, DM): no Score = 1/4 Risk (low = 0, mod = 1-2, high = 3-4): Health Status Allergies: Allergic Reactions (Selected) No Known Medication Allergies, Allergies (1) Active Reaction No Known Medication Allergies None Documented Current medications: (Selected) Prescriptions Prescribed MDI spacer adult: 1 EA, Inhalation, As Directed, 1 EA, Refill(s) 0 [place] 325 mg-5 mg oral tablet: 1 tab(s), [...] spacer adult 1 EA, Inhalation, As Directed [place] 325 mg-5 mg oral tablet 1 tab(s), PRN, Oral, q6hr Ventolin HFA 90 mcg/inh inhalation aerosol with adapter 2 puff(s), PRN, Inhalation, q6hr Coumadin , No qualifying data available Problem list: All Problems HTN (hypertension) / SNOMED CT 8687901185 / Confirmed Class 3 severe obesity with body mass index (BMI) of 40.0 to 44.9 in adult / SNOMED CT 1836493243 / Confirmed Resolved: Cancer of prostate / SNOMED CT 3998293340, Active Problems (2) Class 3 severe obesity [...] stroke: no 4. Serious co-morbid conditions (recent SD, anemia with Hct <30%, CRI with SCr > 1.5, DM): no Score = 1/4 Risk (low = 0, mod = 1-2, high = 3-4): Normal [facility] Comment on above: Result Comment: Elec [...] therapy and has been managed by [facility] Coumadin clinic. He says he [...] Recorded: 29Apr2022 11:48AM Heart Rate60, R Radial Gkxsqfwe020 Ktxaqrabb75 Height5 ft 6 in Ktvxeq376 lb 6 oz BMI Tmqdykyqrl37.09 kg/m2 BSA Calculated2.19 Tobacco Useb) No Falls Screening (Age 18+)a) No falls within the last year Physical Exam Constitutional: alert and in no acute distress. Eyes: no erythema, swelling or discharge from the eye . Neck: neck i (more content not included)... Normal [facility] Tobacco Screening.on 023 Fall risk assessment a) No falls within the last year [facility] 600 DO Work Phone: Tobacco use status CP b) No [facility] 600 DO Work Phone: POCT PT/INRon 04-19-2022 POCT INR 1.7 High .7-1.2 [facility] Comment on above: Performed By: #### 1 [id number], [id number], [id number], [id number] #### [facility] Laboratory [address] [place] [address] POCT PT 19.1 second(s) High 8.0-15.0 [facility] Comment on above: Performed By: #### 1 [id number], [id number], [id number], [id number] #### [facility] Laboratory [address] [place] [address] Coding Summary.on 04-08-2022 Coding Summary. CD:[id number] G h0bWw+PGhlYWQ+AC5EJFL sQ72ydMIlnI4GM7vRKI0E KFPKWHUPRB9HOP1maXP2H SaiO0EmpuLe IaljoTZnOR93VYl0XRR3j NvjBZbekQ0qvAFgG9n5Ft OtCB89lV50IDfpSTKxGgJ 3LjZpbjsgbWFy I0mfZzYjpHXtYkb+PHRhY mxlIHdpZHRoPScxMDAlJy WjeAjaAM1bMa7lHBLhEHQ vbGxhcHNlOiBj j7xdNKVcGUteBX3mqKyoX 1KtxXB8JAGfx4u1Ny00uM I+DESoNZV3gKtyKPdyi01 1UgPny0lsDNP1 pJOeBZvdZNL2N27he2M4L IMlAMUjITV7kFE9mK2xuN pdlpobB1UqfMQwYfF2GXY 0sCMjtM2dwVte ruszwR5pPoy+M70CKS4ZG NPLKB5JGew9D7CcYmsynG I+MP82VAHmVT02rFVvkSG mj3ygkLz1HtOp LMDzCSE9uFprXZqcj7FmZ KHqV76xgEXtz7Z8EVIorR zviSLmMrEqaIQ8tG4tXSx zbyiyo3jzdoxl Wztee7xtpd17xF12V00pX IzjGMNvQIP7SXTeMPLanM dcve5efA7vHk5+CFhle5y zd0citLd7XiCa YEXazxFgjVueVVT2f6RnK h48R5GdlEghd6ByTqn8xw 89wCPbv1A7pBE6EHenEJL ihK1ySFpvGnQ9 CVPwUvOxhA98aNXrOPreP b6zjEaapYkcOF0gLUNref wdEWOtwY7oUMCktMWjdGv bVW4hRKFpxrah h355TuIbDDD2URFqgSEgD 1AhhE1pSfFuZDQwRULmG8 PvrCNiTFwrW062INmyKpN 3OWAodnKkR3Xx IUPuqNasRbA1h1U5Td8Kn 6VcwqqoJHO7RUvpRPFlAk AgOaHcPxX0E9YoVht7KTJ snPgkFV3lU4Jc MGJlmstazxpzjQL0FSAqQ DXavB31lABdYUorPa9vi1 D6c290ASTgKYTgxG51Hx1 udDogMTBwdCBU aP8lpchxg9hgogxaAwCpP CIpATr5SSg9GWOzzHcuLn OwKIJ7UcX4UAV6jIQigI8 zoMxsaaqteF3r Oyc+T88gqL5hLOF2IDQ9z oqrICWhvwGsJN02FD82L1 RyPjwvdGFibGU+PGRpdiB vnJtsZV2iMpAr g7jsp9UhWAwvM7WlTIGbY RmyCir3ZQBqVBC9uMM4rT 4xVWWeMUhfo8M5nZQ6X8L ijuKelc2ex6yr ALNrGCesL40vuZApb1Z5E OPixII4BUSyzPiiJbVkaY 93Oyc+KNQrvNxyt5AlDic sl4jxa0xtySq1 IgYzWXMetjZlwTmpMNH3t 8ZtIw53G44dTTvyVYZhXX FqCMVzCDAorDzgvn9gxJ0 wIi8+PGNvbCB3 pVF3rY9gRQXiUhG8GWdpK 228DbYsjSAjMixvk1aeh9 wvaZs2DcQvVENgcdBcyQi kIGA2u5UkOb89 A63oLTxxHROmGSWbGWTqZ QRhaDcjrr1yhS3uFr1+PC 7al4ngqr73nW80hYI+PHR hXTN0bRatBOif FYMyjM1gWTmuYuS0NPFcZ oFttV96bWRhKFrbRa6axV lpbFstLE0mYUUinmepq77 8AdQjl4znCVYh bLAbCFcwQQN3T15rm8F4A UMiHATjLXK0kCA0gD7ggQ lnbjogbGVmdDsgdmVydGl sFDyaWGybF927 IHRvcDsnPlBhdGllbnQgT fRcSOk5M6XqWro0OHTyeZ qtWH4oeIQvAUgmFn0loZh idNeuNR3bJHCw bxytv017AaCte4amNDWzk ZEqURvgEHF8N72pb0C7ZZ PgXLAdAVS4bAT0gU9zwFh nbjogbGVmdDsg hbTrzBnbWBbvZGvxX831J HRvcDsnPkJpcnRoIERhdG E3IG32QI34oEDnm8P0zHZ 4I9VgYKBpxkev hojppWV6ZVHuINLclZ79H n1lbZdjDx4dUXLfBZQ4JD VgaAHoT2AodB6oGnSmACJ uYUFnH5JqcLQy QVsfU252QKooNfR5DWWdi bMoM1NjXXBqdEhgPrU0u6 S0We1AA4F6QX03VJ83hBD om3O5tKU9L7Ia UUIhqwcidlgzqTU8DJTmS KBvzM01Zt3udWyhDs0pNL FiQEP4JSMnmWIfY2KkmQ4 yOiAjMDAwMDAw E5VfdENgHOuoJ984TXdeS hB2ILKhqlQtM6SiFMBfyS axZoN2b6C9Ld6KGTl5GG8 8IL56bICoa9H4 qPD4O0NqDLJepksvgsngp KO0FQHpSBJngT44La1ioZ fgAq6yPCTwOUZ3XWAflEZ rV0EbrU7cBpOn HVEfGMPmA8TdoSNeRVxcJ 099OCysYjX5SQZeisGsR7 SaBHMgxAdoOlX8x8J1Kw2 DONVfOD40ZLZ1 jKW8EI95BS15W1HlFmztf GFibGU+PHRhYmxlIHdpZH RoPScxMDAlJyBzdHlsZT0 bBw6gUTRbVDXg qUnwdGSyTbPzg6niHKIoE AgnWC1keDmiX1ZgtOF8FL Slg2g4Uj18Z79pP5YkvBW +XJLvlCD3uZS7 cT4gLyQhLbQ1GLvaM575W yVerIOcLhyew2mgb7pwaO j5GoW7HMFcltLjjIehGSI 2s1OtUr64W58h IHdpZHRoPSIxNSUiIHZhb Hkquf2sdM3iWi5+PGNvbC F9mMI9qA7kKeHzPfN9OTl lX490VfIjnKTj Dnuqx3zpk2ekuEd2MqQwE SMdjcVtaGcvERS2e6ZvGl 47M0UrbEvix4HbWga6mp3 1pBXdz2Y7lMX2 G5VrDVCpqvdfjQQxlYxjH Y5qZMNwqtqcINImmQ1pUP KfO7e8UgIjDaL7PUozK0Q uhjP5BPIsrXMg BMbwOKA7E31nj2T9FVMfK MAoGRX0gDT1qH8gmDiypd ogbGVmdDsgdmVydGljYWw rMIhtK542QUYl tXlzEQEodV3wQRBopJUsr YeeHI3rDKHjzjyhQnXTCy KVHQbiZGSZDxaUHJt4I5K vAoq0QHOpcZtd QM9lcBBhODltXd2pnTsjr EdxRM1mWYXqqrvyZORmaO 8sHBPkoMQxjOgeTY6rSRP rjrafb600ScQg FMC8GRHiuBKlE1HhxE6gC nXmDRAwYQGaN8EstWMxCO nfH538RSskKvX9CGVzyoS sF6JkXJLeuTox ObZ7t6Y1Ru4jRV3wVU8lJ MB6BV79EP43yGYnw7N9sJ P2O2YhDUEtprgskfnpqXC 6TAZvNRNihM47 bXLjOHciIq5ox1X9f231X HHtQNQrjY89Si6oaBrtHF RiiVTYvU4srgfgj4ekxbw gIzAwMDAwMDt0 LEy1QHCjdRbsSzVgLMQ4W eX8JHP5rUHqcO5yySathl eqvB1hZgy+NzMgWWVhcnM 1O1FeTot8RPTc qDxqYB7yuMFdBVgwHe5mg JpixXudDU6uRKPzqpddHR NogZ6pBUGbdSFeiZciBJ2 xLTJayrmay312 RuSuEVA3EJWqmJAwI3Vmi T5fJxZlCMHgVNGuI7GcnC VoEHbmO169WSshJhR9GNN dcfWlL0UzJTVq mFqhJjU3t7I3Zm3DPQatW W54BM30pLFqw9A5qNW4U9 RrESVvixaknwyvgDR8BVR gQOYgsR15vIJj DBlcZd8ny1W9d367RSEzQ KAulO44Ox0bnGehJSQcqH FNnV8uddpbx6hxrwwaQrK eKTSaODz1CIr4 GUKaiKobDoDjBQC2LyS8A YE3iJXxhK0quVluofethT 9wOyc+ZbSaoHIdbW8cKI7 0JC88M3DgOhtb dGFibGU+PHRhYmxlIHdpZ HRoPScxMDAlJyBzdHlsZT 8gZa0yTJKiCVDltOepwCG wKvWof5amUNGr RGbtOF7udXzbC3JzeHG7F BPpx2d6Rz78G71yM0QgwY A+ZJDzkRX7tED3qT9hDsH uMkD2CBtfV736 EmPbjKFwIewoe2gnh3opn Fm0JnNyPPWvzeAmaKwvHC D3i1YcId85X91wJLxrYZV oPSIyMCUiIHZh yBhtxx4jcT6kIa1+PGNvb LC9zGZ0uL9yOaIhRrX6CM toK741SuTsdKQuPttlQ26 yF7WxnPL+PHRy Nqq2ZAPscHivGM0kvNZoQ YcjBi7vRWO2IjIaZcIwYS ijN6HhGSGcxmebfiqhgHL 3NWMfGTMhlV61 Jr9foKwwYc9xADTnICI6U FFhdEUvN0RzoP9wOmWvIC YfMCZjQ8IegQChQRngS63 7XKaeHgW5QWWl zeRzA5ShTIBwdOugRuK2u 5L6Tp5DjXoeuCDcBA9pWx NoBSp2H2ToKzy8KWYcgJk fTC6avKRuAFku Lm0znNmplSjzZB9nPNPot tfbk099MaIcl7mcPSUiyM OjGObuBCJ4Q95ik8H7HXE jZTQeNSA1gVG3 lG7wrHyizrsmfGDgbOepc sNklBhxDAgrCCjmQ077SL KgjKvzFkEAFuo8I1OwJhe 1UECxhNouSD0h xERjEWvuFq1ygIssqKqiZ Q3xTUYkerkzj125RnTtm7 tiEPDqbTNgKYlyHRR3L01 qb2G3ZNHwHENh OCW5eFZ2sH7fjKabxbetg GVmdDsgdmVydGljYWwtYW srV074QEWymSbhRr8EWjt 2I5WgDlv0PZGg eQvbBE5dvWTpWVtfLx1wn ZnfzLqqDU9iAKOhpnvar4 30LpZxg7biOCXceKYnUSj eXPP7U65xl5P0 VMOgKFUmAYE4kNN1oR8tu GlnbjogbGVmdDsgdmVydG znPKrwIHxeL682RQIrbDb nPlBheWVyOjwv dGQ+JP48rm78H6DdJcpiL et1EJTuVMV7tXU8jI6iVS IlOGsam5J2dXT1O0AfotU yfs9gy3feBAFo ZTog (more content not included)... Normal [facility] POCT PT/INRon 04-05-2022 POCT INR 1.3 High .7-1.2 [facility] Comment on above: Performed By: #### 2 [id number] #### [facility] [address] [place] [address] POCT PT 15.0 second(s) Normal 8.0-15.0 [facility] Comment on above: Performed By: #### 2 [id number] #### [facility] [address] [place] [address] POCT INR Error Invalid Interpretation Code .7-1.2 [facility] Comment on above: Performed By: #### 1 [id number] #### [facility] [address] [place] [address] POCT PT Strip Error Invalid Interpretation Code 8.0-15.0 [facility] Comment on above: Performed By: #### 1 [id number] #### [facility] [address] [place] [address] POCT INR Error Invalid Interpretation Code .7-1.2 [facility] Comment on above: Performed By: #### 1 [id number], [id number] #### [facility] [address] [place] [address] POCT PT Strip Error Invalid Interpretation Code 8.0-15.0 [facility] Comment on above: Performed By: #### 1 [id number], [id number] #### [facility] [address] [place] [address] Physician Orderon 04-01-2022 Physician Order [id number]# 1.00CD:127 Normal [facility] Consent for Treatmenton Consent for Treatment [id number]#1 .00CD:127 Normal [facility] POCT PT/INRon 03-29-2022 POCT INR 1.3 High .7-1.2 [facility] Comment on above: Performed By: #### 2 [id number] #### [facility] [address] [place] [address] POCT PT 14.2 second(s) Normal 8.0-15.0 [facility] Comment on above: Performed By: #### 2 [id number] #### [facility] [address] [place] [address] [facility] echo transthoracicon [facility] echo transthoracic [address] [address] Echocardiogram Signed Patient: Fredrick Stroud MR#: [id number] 427 : 1950 Acct:[id number] Age/Sex: 71 / M ADM Date: 03/27/22 Loc: Room: Type: [facility] Attending Dr: Sejal Link TANK RIVETERLonnyC Ordering Provider: Sejal Link APRN Date of Service: 03/27/22/ ECH/ECH echo transthoracic: Afib. SOB. HTN. Copies to: LUCY Hankins MD, [facility] BSA: 2.2 m2 BP: 125/82 mmHg HR: [...] 03/27/22 1449 Signed By: Love Gaviria MD, [facility] 03/27/22 1557 Normal [facility] Free T4 (Free Thyroxine)on 0 03-27-2022 Free T4 [Mass/Vol] 1.01 ng/dL Normal 0.61-1.12 [facility] Comment on above: Order Comment: Reaso n for Exam Atrial fibrillation;Essential hypertension Performed By: #### C BC, CMP, HS TROP, BNP #### [facility] [address] TSH DL <= 0.005 mIU/L QnOrde red By: Sejal Link on 03-27-2022 TSH Qn 2.57 m[IU]/L 0.45-5.33 [facility] Thyroid Stimulating Hormoneo n 03-27-2022 TSH Qn 2.57 m[IU]/L Normal 0.45-5.33 [facility] Comment on above: Order Comment: Reaso n for Exam Atrial fibrillation;Essential hypertension Result Comment: PERF ORMED BY: [place] [address] PATHOLOGIST PROFESSOR OF GEOGRAPHY EYAD HOWARD M.D. Performed By: #### C BC, CMP, HS TROP, BNP #### [facility] [address] Thyroxine (T4) free [Mass/vo lume] in Serum or PlasmaOrdered By: Sejal Link on 03-27-2022 Free T4 [Mass/Vol] 1.01 ng/dL 0.61-1.12 [facility] Triiodothyronine (T3) Freeon 03-27-2022 Triiodothyronine (T3) Free 3.17 pg/mL Normal 2.50-3.90 [facility] Comment on above: Order Comment: Reaso n for Exam Atrial fibrillation;Essential hypertension Result Comment: PERF ORMED BY: [place] [address] PATHOLOGIST PROFESSOR OF GEOGRAPHY EYAD HOAWRD M.D. Performed By: #### C BC, CMP, HS TROP, BNP #### [facility] [address] Triiodothyronine (T3) Free [ Mass/volume] in Serum or PlasmaOrdered By: Sejal Link on 03-27-2022 Free T3 [Mass/Vol] 3.17 pg/mL 2.50-3.90 [facility] Office Visit (Cardiology)on 03-21-2022 Follow-up visit Diagnoses/Problems [...] Goal 2.0-3.0. Patient would like managed with [facility] Coumadin clinic Follow up in 2 months [...] which include rate control with anticoagulation versus sabianist of maintenance of sinus rhythm. After discussing [...] Signs Recorded: 21Mar2022 02:26PM Heart Rate67, Apical Auvtcsew588, RUE, Xmtrhkz085, LUE, Sitting Dreohsfqg92, RUE, Nwqrrig14, LUE, Sitting He (more content not included)... Normal [facility] Albumin [Mass/volume] in Ser um or PlasmaOrdered By: Yo Blood on 03-11-2022 Albumin [Mass/Vol] 4.1 g/dL 3.2-5.5 [facility] B-Type Natriuretic Peptideon 03-11-2022 Natriuretic peptide B (Bld) [Mass/Vol] 101.0 pg/mL High 5-100 [facility] Comment on above: Result Comment: PERF ORMED BY: [facility] [address] [place] [address] PATHOLOGIST PROFESSOR OF GEOGRAPHY EYAD HOWARD M.D. Performed By: #### C BC, CMP, HS TROP, BNP #### [address] Basophils Auto (Bld) [#/Vol] Ordered By: Yo Blood on 03-11-2022 Basophils (Bld) [#/Vol] 0.0 10*3/uL 0.0-0.2 [facility] Basophils/100 WBC Auto (Bld) Ordered By: Yo Blood on 03-11-2022 Basophils/100 WBC (Bld) 1.1 % . [facility] COVID-19 Antigenon 3 COVID-19 Antigen Healthcare [...] developed and its performance characteristic determined by [facility] and validated at [facility]. This test has not been FDA [...] for SARS Antigen by OLY PERFORMED BY: [address] [address] PATHOLOGIST PROFESSOR OF GEOGRAPHY EYAD HOWARD M.D. Normal [facility] Comment on above: Performed By: #### C OVID-19 YAIR LOREDOEG #### [address] [address] [place] COVID-19 SOFIAOrdered By: Buster frederick Blood on 03-11-2022 SARS-CoV+SARS-CoV-2 (COVID-19) Ag IA.rapid Ql (Resp) Negative Negative [facility] Comment on above: This is a duplicate Gertrude SARS Antigen (OLY) result to be used for statistical tracking purpose only. Complete Blood Count Auto Di ffon 03-11-2022 Basophils (Bld) [#/Vol] 0.0 10*3/uL Normal 0.0-0.2 [facility] Comment on above: Result Comment: PERF ORMED BY: [place] [address] PATHOLOGIST PROFESSOR OF GEOGRAPHY EYAD HOWARD M.D. Performed By: #### C BC, CMP, HS TROP, BNP #### [facility] [address] [place] [address] Basophils/100 WBC (Bld) 1.1 % Normal . [facility] Comment on above: Performed By: #### C BC, CMP, HS TROP, BNP #### [facility] [address] Eosinophils (Bld) [#/Vol] 0.0 10*3/uL Normal 0.0-0.45 [facility] Comment on above: Performed By: #### C BC, CMP, HS TROP, BNP #### [facility] [address] [place] [address] Eosinophils/100 WBC (Bld) 0.4 % Normal . [facility] Comment on above: Performed By: #### C BC, CMP, HS TROP, BNP #### [facility] [address] [place] [address] Erythrocyte distribution width (RBC) [Ratio] 14.0 % Normal 12.0-14.8 [facility] Comment on above: Performed By: #### C BC, CMP, HS TROP, BNP #### [facility] [address] [place] [address] Hematocrit (Bld) [Volume fraction] 46.7 % Normal 38.8-50.0 [facility] Comment on above: Performed By: #### C BC, CMP, HS TROP, BNP #### [address] Hemoglobin (Bld) [Mass/Vol] 15.3 g/dL Normal 13.0-17.0 [facility] Comment on above: Performed By: #### C BC, CMP, HS TROP, BNP #### [address] Lymphocytes (Bld) [#/Vol] 1.1 10*3/uL Normal 1.00-4.8 [facility] Comment on above: Performed By: #### C BC, CMP, HS TROP, BNP #### [address] Lymphocytes/100 WBC (Bld) 29.0 % Normal . [facility] Comment on above: Performed By: #### C BC, CMP, HS TROP, BNP #### [address] MCH (RBC) [Entitic mass] 29.4 pg Normal 27.5-35.2 [facility] Comment on above: Performed By: #### C BC, CMP, HS TROP, BNP #### [address] MCV (RBC) [Entitic vol] 89.6 fL Normal 83.5-101 [facility] Comment on above: Performed By: #### C BC, CMP, HS TROP, BNP #### [address] Mean Corpuscular HGB Conc 32.8 g/dL Normal 32.5-35.6 [facility] Comment on above: Performed By: #### C BC, CMP, HS TROP, BNP #### [address] Monocytes (Bld) [#/Vol] 0.8 10*3/uL Normal 0.0-0.8 [facility] Comment on above: Performed By: #### C BC, CMP, HS TROP, BNP #### [address] [place] [address] [place] Monocytes/100 WBC (Bld) 20.67 % High 0.00-20.00 [facility] Comment on above: Result Comment: For adults in ED, MDW > 20.0 may be associated with a higher risk of sepsis during the first 12 hrs of hospital admission Performed By: #### C BC, CMP, HS TROP, BNP #### [facility] [address] Monocytes/100 WBC (Bld) 20.9 % Normal . [facility] Comment on above: Performed By: #### C BC, CMP, HS TROP, BNP #### [facility] [address] [place] [address] Neutrophils (Bld) [#/Vol] 1.8 10*3/uL Normal 1.8-7.7 [facility] Comment on above: Performed By: #### C BC, CMP, HS TROP, BNP #### [address] Neutrophils/100 WBC (Bld) 48.6 % Normal . [facility] Comment on above: Performed By: #### C BC, CMP, HS TROP, BNP #### [facility] [address] [place] [address] NRBC% 0.2 /100{WBC} Normal 0-0.5 [facility] Comment on above: Performed By: #### C BC, CMP, HS TROP, BNP #### [facility] [address] [place] [address] Platelet mean volume (Bld) [Entitic vol] 8.5 fL Normal 6.6-10.1 [facility] Comment on above: Performed By: #### C BC, CMP, HS TROP, BNP #### [facility] [address] [place] [address] [place] Platelets (Bld) [#/Vol] 197 10*3/uL Normal 150-450 [facility] Comment on above: Performed By: #### C BC, CMP, HS TROP, BNP #### [facility] [address] [place] [address] [place] RBC (Bld) [#/Vol] 5.21 10*6/uL Normal 3.90-5.60 [facility] Comment on above: Performed By: #### C BC, CMP, HS TROP, BNP #### [facility] [address] WBC (Bld) [#/Vol] 3.7 10*3/uL Low 4.1-10.5 [facility] Comment on above: Performed By: #### C BC, CMP, HS TROP, BNP #### [facility] [address] Comprehensive Metabolic Pane rigo 03-11-2022 Albumin [Mass/Vol] 4.1 g/dL Normal 3.2-5.5 [facility] Comment on above: Performed By: #### C BC, CMP, HS TROP, BNP #### [facility] [address] Albumin/Globulin [Mass ratio] 1.5 {ratio} Normal [facility] Comment on above: Performed By: #### C BC, CMP, HS TROP, BNP #### [facility] [address] ALP [Catalytic activity/Vol] 79 U/L Normal 32-92 [facility] Comment on above: Performed By: #### C BC, CMP, HS TROP, BNP #### [facility] [address] ALT [Catalytic activity/Vol] 23 U/L Normal 10-60 [facility] Comment on above: Performed By: #### C BC, CMP, HS TROP, BNP #### [facility] [address] Anion gap [Moles/Vol] 13.7 mmol/L Normal 6.0-15.0 [facility] Comment on above: Performed By: #### C BC, CMP, HS TROP, BNP #### [facility] [address] AST [Catalytic activity/Vol] 32 U/L Normal 10-42 [facility] Comment on above: Performed By: #### C BC, CMP, HS TROP, BNP #### [facility] [address] Bilirubin [Mass/Vol] 0.6 mg/dL Normal 0.3-1.2 [facility] Comment on above: Performed By: #### C BC, CMP, HS TROP, BNP #### [facility] [address] Calcium [Mass/Vol] 9.2 mg/dL Normal 8.2-10.2 [facility] Comment on above: Performed By: #### C BC, CMP, HS TROP, BNP #### [facility] [address] Chloride [Moles/Vol] 98 mmol/L Normal 95-114 [facility] Comment on above: Performed By: #### C BC, CMP, HS TROP, BNP #### [facility] [address] [place] [address] CO2 [Moles/Vol] 29.0 mmol/L Normal 22.0-30.0 [facility] Comment on above: Performed By: #### C BC, CMP, HS TROP, BNP #### [facility] [address] Creatinine [Mass/Vol] 0.86 mg/dL Normal 0.64-1.27 [facility] Comment on above: Performed By: #### C BC, CMP, HS TROP, BNP #### [facility] [address] [place] [address] Creatinine Clr Calc Pharmacy 91.63 [facility] Comment on above: Result Comment: PERF ORMED BY: [place] [address] PATHOLOGIST PROFESSOR OF GEOGRAPHY EYAD HOWARD M.D. Performed By: #### C BC, CMP, HS TROP, BNP #### [address] Estimated GFR ( Jessica > 60 Normal [facility] Comment on above: Result Comment: GFR estimated reference range: According to KDOQI guidelines, <60 ml/min/1.73m2 is sufficient to diagnose a patient with chronic kidney disease. Performed By: #### C BC, CMP, HS TROP, BNP #### [facility] [address] Estimated GFR (Non- Am > 60 Normal [facility] Comment on above: Performed By: #### C BC, CMP, HS TROP, BNP #### [facility] [address] Globulin (S) [Mass/Vol] 2.8 g/dL Normal [facility] Comment on above: Performed By: #### C BC, CMP, HS TROP, BNP #### [address] Glucose [Mass/Vol] 91 mg/dL Normal 70-100 [facility] Comment on above: Result Comment: [place] Glucose Reference Range is dependent on time and content of last meal. Glucose of more than 200 mg/dL in a nonstressed, ambulatory subject supports the diagnosis of Diabetes Mellitus. ADA recommended reference range Performed By: #### C BC, CMP, HS TROP, BNP #### [facility] [address] Potassium [Moles/Vol] 3.7 mmol/L Normal 3.5-5.1 [facility] Comment on above: Performed By: #### C BC, CMP, HS TROP, BNP #### [facility] [address] [place] [address] [place] Protein [Mass/Vol] 6.9 g/dL Normal 6.1-7.9 [facility] Comment on above: Performed By: #### C BC, CMP, HS TROP, BNP #### [facility] [address] [place] [address] [place] Sodium [Moles/Vol] 137 mmol/L Normal 136-146 [facility] Comment on above: Performed By: #### C BC, CMP, HS TROP, BNP #### [facility] [address] Urea nitrogen [Mass/Vol] 10 mg/dL Normal 9-23 [facility] Comment on above: Performed By: #### C BC, CMP, HS TROP, BNP #### [address] Creatinine and Glomerular fi ltration rate.predicted panel (S/P/Bld)Ordered By: Yo Blood on 03-11-2022 Creatinine [Mass/Vol] 0.86 mg/dL 0.64-1.27 [facility] ECG 12 lead ECGon 03-11-2022 ECG 12 lead ECG [facility] [place] [address] Electrocardiograph Report Signed Patient: Fredrick Stroud MR#: [id number] 427 : 1950 Acct:[id number] Age/Sex: 71 / M ADM Date: 03/11/22 [...] pacemaker Low voltage QRS Confirmed by Yo BOLOD DO ([id number]) on 03/11/2022 9:03:33 PM Referred By: Electronically Signed By:Yo BLOOD DO Transcribed By: MUS Signed By Yo Blood DO 0 03/11/222102 Normal [facility] ECG 12 lead ECG [facility] [place] [address] Electrocardiograph Report Signed Patient: Fredrick Stroud MR#: [id number] 427 : 1950 Acct:[id number] Age/Sex: 71 / M ADM Date: 03/11/22 [...] voltage QRS Confirmed by Yo BLOOD DO ([id number]) on 03/11/2022 7:52:28 PM Referred By: Electronically Signed By:Yo BLOOD DO Transcribed By: MUS Signed By Yo Blood DO 0 03/11/221951 Normal [facility] Eosinophils Auto (Bld) [#/Vo l]Ordered By: Yo Blood on 03-11-2022 Eosinophils (Bld) [#/Vol] 0.0 10*3/uL 0.0-0.45 [facility] Eosinophils/100 WBC Auto (Bl d)Ordered By: Yo Blood on 03-11-2022 Eosinophils/100 WBC (Bld) 0.4 % . [facility] Erythrocyte distribution wid th Auto (RBC) [Ratio]Ordered By: Yo Blood on 03-11-2022 Erythrocyte distribution width (RBC) [Ratio] 14.0 % 12.0-14.8 [facility] Estimated glomerular filtrat ion rate (GFR) non- AmericanOrdered By: Yo Blood on 03-11-2022 GFR/1.73 sq M.predicted among non-blacks MDRD (S/P/Bld) [Vol rate/Area] > 60 mL/Min [facility] Globulin Calc (S) [Mass/Vol] Ordered By: Yo Blood on 03-11-2022 Globulin (S) [Mass/Vol] 2.8 g/dL [facility] Hematocrit Auto (Bld) [Volum e fraction]Ordered By: Yo Blood on 03-11-2022 Hematocrit (Bld) [Volume fraction] 46.7 % 38.8-50.0 [facility] Hemoglobin [Mass/volume] in BloodOrdered By: Yo Blood on 03-11-2022 Hemoglobin (Bld) [Mass/Vol] 15.3 g/dL 13.0-17.0 [facility] Laboratory - Chemistry and C hemistry - challengeOrdered By: Yo Blood on 03-11-2022 Natriuretic peptide B (Bld) [Mass/Vol] 101.0 pg/mL 5-100 [facility] Leukocytes [#/volume] correc vlad for nucleated erythrocytes in Blood by Automated counOrdered By: Yo Blood on 03-11-2022 WBC corrected for nucl RBC Auto (Bld) [#/Vol] 3.7 10*3/uL 4.1-10.5 [facility] Lymphocytes Auto (Bld) [#/Vo l]Ordered By: Yo Blood on 03-11-2022 Lymphocytes (Bld) [#/Vol] 1.1 10*3/uL 1.00-4.8 [facility] Lymphocytes/100 WBC Auto (Bl d)Ordered By: Yo Blood on 03-11-2022 Lymphocytes/100 WBC (Bld) 29.0 % . [facility] MCH Auto (RBC) [Entitic mass ]Ordered By: Yo Blood on 03-11-2022 MCH (RBC) [Entitic mass] 29.4 pg 27.5-35.2 [facility] MCHC Auto (RBC) [Mass/Vol]Or dered By: Yo Blood on 03-11-2022 MCHC (RBC) [Mass/Vol] 32.8 g/dL 32.5-35.6 [facility] MCV Auto (RBC) [Entitic vol] Ordered By: Yo Blood on 03-11-2022 MCV (RBC) [Entitic vol] 89.6 fL 83.5-101 [facility] Monocyte distribution width [Entitic volume] in Blood by AutomatedOrdered By: Yo Blood on 03-11-2022 Monocyte distribution width Auto (Bld) [Entitic vol] 20.67 % 0.00-20.00 [facility] Comment on above: For adults in ED, MD W > 20.0 may be associated with a higher risk of sepsis during the first 12 hrs of hospital admission Monocytes Auto (Bld) [#/Vol] Ordered By: Yo Blood on 03-11-2022 Monocytes (Bld) [#/Vol] 0.8 10*3/uL 0.0-0.8 [facility] Monocytes/100 WBC Auto (Bld) Ordered By: Yo Blood on 03-11-2022 Monocytes/100 WBC (Bld) 20.9 % . [facility] Neutrophils Auto (Bld) [#/Vo l]Ordered By: Yo Blood on 03-11-2022 Neutrophils (Bld) [#/Vol] 1.8 10*3/uL 1.8-7.7 [facility] Neutrophils/100 WBC Auto (Bl d)Ordered By: Yo Blood on 03-11-2022 Neutrophils/100 WBC (Bld) 48.6 % . [facility] No Panel InformationOrdered By: Yo Blood on 03-11-2022 SARS Antigen (LFIA) [facility] Estimated GFR () > 60 mL/Min [facility] Comment on above: GFR estimated refere nce range: According to [facility] guidelines, <60 ml/min/1.73m2 is sufficient to diagnose a patient with chronic kidney disease. Pharmacy Creatinine Clearance (Chem 91.63 [facility] Nucleated erythrocytes [Pres ence] in Blood by Automated countOrdered By: Yo Blood on 03-11-2022 Nucleated RBC Auto Ql (Bld) 0.2 /100{WBC} 0-0.5 [facility] Platelet mean volume Auto (B ld) [Entitic vol]Ordered By: Yo Blood on 03-11-2022 Platelet mean volume (Bld) [Entitic vol] 8.5 fL 6.6-10.1 [facility] Platelets Auto (Bld) [#/Vol] Ordered By: Yo Blood on 03-11-2022 Platelets (Bld) [#/Vol] 197 10*3/uL 150-450 [facility] Protein [Mass/volume] in Ser um or PlasmaOrdered By: Yo Blood on 03-11-2022 Protein [Mass/Vol] 6.9 g/dL 6.1-7.9 [facility] RBC Auto (Bld) [#/Vol]Ordere d By: Yo Blood on 03-11-2022 RBC (Bld) [#/Vol] 5.21 10*6/uL 3.90-5.60 [facility] Serum or plasma alanine sullivan otransferase measurement without P-5'-P (enzymatic activiOrdered By: Yo Blood on 03-11-2022 ALT No additional P-5'-P [Catalytic activity/Vol] 23 U/L 10-60 [facility] Serum or plasma albumin/glob ulin mass ratioOrdered By: Yo Blood on 03-11-2022 Albumin/Globulin [Mass ratio] 1.5 {ratio} [facility] Serum or plasma alkaline faviola sphatase measurement (enzymatic activity/volume)Ordered By: Yo Blood on 03-11-2022 ALP [Catalytic activity/Vol] 79 U/L 32-92 [facility] Serum or plasma anion gap de terminationOrdered By: Yo Blood on 03-11-2022 Anion gap [Moles/Vol] 13.7 mmol/L 6.0-15.0 [facility] Serum or plasma aspartate am inotransferase measurement (enzymatic activity/volume)Ordered By: Yo Blood on 03-11-2022 AST [Catalytic activity/Vol] 32 U/L 10-42 [facility] Serum or plasma calcium echo urement (mass/volume)Ordered By: Yo Blood on 03-11-2022 Calcium [Mass/Vol] 9.2 mg/dL 8.2-10.2 [facility] Serum or plasma chloride tessie surement (moles/volume)Ordered By: Yo Blood on 03-11-2022 Chloride [Moles/Vol] 98 mmol/L 95-114 [facility] Serum or plasma glucose echo urement (mass/volume)Ordered By: Yo Blood on 03-11-2022 Glucose [Mass/Vol] 91 mg/dL 70-100 [facility] Comment on above: ADA recommended refe rence rangeRandom Glucose Reference Range is dependent on time and content of last meal. Glucose of more than 200 mg/dL in a nonstressed, ambulatory subject supports the diagnosis of Diabetes Mellitus. Serum or plasma potassium me asurement (moles/volume)Ordered By: Yo Blood on 03-11-2022 Potassium [Moles/Vol] 3.7 mmol/L 3.5-5.1 [facility] Serum or plasma sodium measu rement (moles/volume)Ordered By: Yo Blood on 03-11-2022 Sodium [Moles/Vol] 137 mmol/L 136-146 [facility] Serum or plasma total biliru bin measurement (mass/volume)Ordered By: Yo Blood on 03-11-2022 Bilirubin [Mass/Vol] 0.6 mg/dL 0.3-1.2 [facility] Serum or plasma total carbon dioxide measurement (moles/volume)Ordered By: Yo Blood on 03-11-2022 CO2 [Moles/Vol] 29.0 mmol/L 22.0-30.0 [facility] Serum or plasma urea nitroge n measurement (mass/volume)Ordered By: Yo Blood on 03-11-2022 Urea nitrogen [Mass/Vol] 10 mg/dL 11-16 [facility] Gertrude Ag Negativeon 03-11-19 Gertrude Ag Negative Negative Normal Negative [facility] Comment on above: Result Comment: This is a duplicate Gertrude SARS Antigen (OLY) result to be used for statistical tracking purpose only. PERFORMED BY: [place] [address] PATHOLOGIST PROFESSOR OF GEOGRAPHY EYAD HOWARD M.D. Performed By: #### C OVID-19 GERTRUDE, SOFIANEG #### [facility] [address] [place] [address] Troponin I High Sensitivityo n 03-11-2022 Troponin I High Sensitivity 9 pg/mL Normal 0-20 [facility] Comment on above: Result Comment: PERF ORMED BY: [place] [address] PATHOLOGIST PROFESSOR OF GEOGRAPHY EYAD HOWARD M.D. Performed By: #### C BC, CMP, HS TROP, BNP #### [facility] [address] [place] [address] Troponin I.cardiac [Mass/vol ume] in Serum or Plasma by High sensitivity methodOrdered By: Yo Blood on 03-11-2022 Troponin I.cardiac High sensitivity method [Mass/Vol] 9 pg/mL 0-20 [facility] WBC Auto (Bld) [#/Vol]Ordere d By: Yo Blood on 03-11-2022 WBC (Bld) [#/Vol] 3.7 10*3/uL 4.1-10.5 [facility] XR chest 2V*on 03-11-2022 XR chest 2V* [facility] Main [address] [address] XRay Report Signed Patient: Fredrick Stroud MR#: [id number] 427 : 1950 Acct:[id number] Age/Sex: 71 / M ADM Date: 03/11/22 [...] Ga Dorsey M.D.03/11/2022 1:42 PM Dictation Location: [place] [address] Transcribed By: [facility] 03/11/22 1342 Dictated By: Ga Dorsey II, MD 03/11/22 1339 Signed By: 03/11/22 1342 Normal [facility] XR hip LT min 2V(w/wo pelvis )*on 09-26-2021 XR hip LT min 2V(w/wo pelvis)* [facility] Main [address] [address] XRay Report Signed Patient: Fredrick Stroud MR#: [id number] 427 : 1950 Acct:[id number] Age/Sex: 70 / M ADM Date: 09/26/21 [...] Ariana Tanner M.D.09/26/2021 3:27 PM Dictation Location: [place] [address] Transcribed By: [facility] 09/26/21 1527 Dictated By: Ariana Tanner MD 09/26/21 1526 Signed By: 09/26/21 1527 Normal [facility] XR hip LT min 2V(w/wo pelvis )*on 08-15-2021 XR hip LT min 2V(w/wo pelvis)* [facility] [place] [address] XRay Report Signed Patient: Fredrick Stroud MR#: [id number] 427 : 1950 Acct:[id number] Age/Sex: 70 / M ADM Date: 08/15/21 Loc: [facility] Room: Type: [facility] Attending Dr: Shahriar Dhillon II, MD [...] 2:40 PM Dictation Location: RADIO-PC-13 Transcribed By: [facility] 08/15/21 1440 Dictated By: Dandy Stevenson Jr, DO 08/15/21 1439 Signed By: 08/15/21 1440 Normal [facility] XR hip LT min 2V(w/wo pelvis)* [facility] [email or web address] Other XR hip LT min 2V(w/wo pelvis)* [facility] [place] [employer] Other XR hip LT min 2V(w/wo pelvis)* [address] [place] [address] [employer] Other XR hip LT min 2V(w/wo pelvis)* [place] [address] [employer] Other XR hip LT min 2V(w/wo pelvis)* XRay Report [employer] Other XR hip LT min 2V(w/wo pelvis)* Signed [employer] Other XR hip LT min 2V(w/wo pelvis)* Patient: Fredrick Stroud MR#: [id number] [employer] Other XR hip LT min 2V(w/wo pelvis)* 427 [employer] Other XR hip LT min 2V(w/wo pelvis)* : 1950 Acct:[id number] [employer] Other XR hip LT min 2V(w/wo pelvis)* Age/Sex: 70 / M ADM Date: 08/15/21 [employer] Other XR hip LT min 2V(w/wo pelvis)* Loc: [facility] Room: Type: [facility] [employer] Other XR hip LT min 2V(w/wo pelvis)* Attending Dr: Shahriar Dhillon II, MD [employer] Other XR hip LT min 2V(w/wo pelvis)* Copies to: Shahriar Dhillon MD [employer] Other XR hip LT min 2V(w/wo pelvis)* Ordering Provider: Shahriar Dhillon MD [employer] Other XR hip LT min 2V(w/wo pelvis)* Date of Service: 08/15/21 [employer] Other XR hip LT min 2V(w/wo pelvis)* XR/XR hip LT min 2V(w/wo pelvis)*: Aftercare following joint replacement [employer] Other XR hip LT min 2V(w/wo pelvis)* surgery [employer] Other XR hip LT min 2V(w/wo pelvis)* LEFT HIP - 2 views: 1 view pelvis [employer] Other XR hip LT min 2V(w/wo pelvis)* CLINICAL HISTORY: Follow-up left GEOVANI [employer] Other XR hip LT min 2V(w/wo pelvis)* COMPARISON: Hip series 07/02/2021 [employer] Other XR hip LT min 2V(w/wo pelvis)* FINDINGS: 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 Prostate radiation [employer] Other XR hip LT min 2V(w/wo pelvis)* seeds. Mild degenerative changes right hip. [employer] Other XR hip LT min 2V(w/wo pelvis)* XR/XR hip LT min 2V(w/wo pelvis)* [employer] Other XR hip LT min 2V(w/wo pelvis)* IMPRESSION: [employer] Other XR hip LT min 2V(w/wo pelvis)* NO EVIDENCE OF HARDWARE COMPLICATION. [employer] Other XR hip LT min 2V(w/wo pelvis)* Impression dictated by: Dandy Stevenson Jr., DDreODre08/15/2021 2:40 PM [employer] Other XR hip LT min 2V(w/wo pelvis)* Dictation Location: [place] [address] [employer] Other XR hip LT min 2V(w/wo pelvis)* Transcribed By: [facility] 08/15/21 1440 [employer] Other XR hip LT min 2V(w/wo pelvis)* Dictated By: Dandy Stevenson Jr DO 08/15/21 1439 [employer] Other XR hip LT min 2V(w/wo pelvis)* Signed By: [employer] Other XR hip LT min 2V(w/wo pelvis)* 08/15/21 1440 [employer] Other Basic Metabolic Panelon 06-24 Calcium [Mass/Vol] 8.6 mg/dL Normal 8.2-10.2 [facility] Comment on above: Performed By: #### C BC, BMP #### [facility] [address] Chloride [Moles/Vol] 102 mmol/L Normal 95-114 [facility] Comment on above: Performed By: #### C BC, BMP #### [facility] [address] [place] [id number] [facility] CO2 [Moles/Vol] 25.5 mmol/L Normal 22.0-30.0 [facility] Comment on above: Performed By: #### C BC, BMP #### [facility] [address] [place] [address] [place] Creatinine [Mass/Vol] 0.96 mg/dL Normal 0.64-1.27 [facility] Comment on above: Performed By: #### C BC, BMP #### [facility] [address] [place] [id number] [place] Creatinine Clr Calc Pharmacy 81.73 Normal [facility] Comment on above: Result Comment: PERF ORMED BY: [place] [address] PATHOLOGIST PROFESSOR OF GEOGRAPHY EYAD HOWARD M.D. Performed By: #### C BC, BMP #### [address] Estimated GFR ( Jessica > 60 [facility] Comment on above: Result Comment: GFR estimated reference range: According to KDOQI guidelines, <60 ml/min/1.73m2 is sufficient to diagnose a patient with chronic kidney disease. Performed By: #### C BC, BMP #### [address] Estimated GFR (Non- Am > 60 [facility] Comment on above: Performed By: #### C BC, BMP #### [address] Glucose [Mass/Vol] 167 mg/dL High 70-100 [facility] Comment on above: Result Comment: [place] Glucose Reference Range is dependent on time and content of last meal. Glucose of more than 200 mg/dL in a nonstressed, ambulatory subject supports the diagnosis of Diabetes Mellitus. ADA recommended reference range Performed By: #### C BC, BMP #### [address] Potassium [Moles/Vol] 4.4 mmol/L Normal 3.5-5.1 [facility] Comment on above: Performed By: #### C BC, BMP #### [place] [address] [place] Sodium [Moles/Vol] 135 mmol/L Low 136-146 [facility] Comment on above: Performed By: #### C BC, BMP #### [address] Urea nitrogen [Mass/Vol] 18 mg/dL Normal 9-23 [facility] Comment on above: Performed By: #### C BC, BMP #### [address] Complete Blood Count Auto Di ffon 07-03-2021 Basophils (Bld) [#/Vol] 0.0 10*3/uL Normal 0.0-0.2 [facility] Comment on above: Result Comment: PERF ORMED BY: [place] [address] PATHOLOGIST PROFESSOR OF GEOGRAPHY EYAD HOWARD M.D. Performed By: #### C BC, BMP #### [address] Basophils/100 WBC (Bld) 0.3 % Normal . [facility] Comment on above: Performed By: #### C BC, BMP #### [address] Eosinophils (Bld) [#/Vol] 0.0 10*3/uL Normal 0.0-0.45 [facility] Comment on above: Performed By: #### C BC, BMP #### [address] Eosinophils/100 WBC (Bld) 0.0 % Normal . [facility] Comment on above: Performed By: #### C BC, BMP #### [address] Erythrocyte distribution width (RBC) [Ratio] 14.2 % Normal 12.0-14.8 [facility] Comment on above: Performed By: #### C BC, BMP #### [address] Hematocrit (Bld) [Volume fraction] 32.9 % Low 38.8-50.0 [facility] Comment on above: Performed By: #### C BC, BMP #### [address] Hemoglobin (Bld) [Mass/Vol] 11.2 g/dL Low 13.0-17.0 [facility] Comment on above: Performed By: #### C BC, BMP #### [address] Lymphocytes (Bld) [#/Vol] 0.6 10*3/uL Low 1.00-4.8 [facility] Comment on above: Performed By: #### C BC, BMP #### [facility] [address] Lymphocytes/100 WBC (Bld) 4.7 % Normal . [facility] Comment on above: Performed By: #### C BC, BMP #### [facility] [address] MCH (RBC) [Entitic mass] 30.1 pg Normal 27.5-35.2 [facility] Comment on above: Performed By: #### C BC, BMP #### [address] MCV (RBC) [Entitic vol] 88.7 fL Normal 83.5-101 [facility] Comment on above: Performed By: #### C BC, BMP #### [address] Mean Corpuscular HGB Conc 33.9 g/dL Normal 32.5-35.6 [facility] Comment on above: Performed By: #### C BC, BMP #### [place] [address] [place] Monocytes (Bld) [#/Vol] 1.0 10*3/uL High 0.0-0.8 [facility] Comment on above: Performed By: #### C BC, BMP #### [place] [address] [place] Monocytes/100 WBC (Bld) 8.3 % Normal . [facility] Comment on above: Performed By: #### C BC, BMP #### [facility] [address] [place] [address] [place] Neutrophils (Bld) [#/Vol] 10.9 10*3/uL High 1.8-7.7 [facility] Comment on above: Performed By: #### C BC, BMP #### [address] Neutrophils/100 WBC (Bld) 86.7 % Normal . [facility] Comment on above: Performed By: #### C BC, BMP #### [facility] [address] Nucleated RBC/100 WBC (Bld) [Ratio] 0.0 % Normal 0-0.5 [facility] Comment on above: Performed By: #### C BC, BMP #### [facility] [address] Platelet mean volume (Bld) [Entitic vol] 8.4 fL Normal 6.6-10.1 [facility] Comment on above: Performed By: #### C BC, BMP #### [facility] [address] Platelets (Bld) [#/Vol] 210 10*3/uL Normal 150-450 [facility] Comment on above: Performed By: #### C BC, BMP #### [facility] [address] RBC (Bld) [#/Vol] 3.71 10*6/uL Low 3.90-5.60 [facility] Comment on above: Performed By: #### C BC, BMP #### [address] WBC (Bld) [#/Vol] 12.5 10*3/uL High 4.5-11.0 [facility] Comment on above: Performed By: #### C BC, BMP #### [address] ECG 12 lead ECGon 07-02-2021 ECG 12 lead ECG [facility] [address] [place] [address] [place] [address] Electrocardiograph Report Signed Patient: Fredrick Stroud MR#: [id number] 427 : 1950 Acct:[id number] Age/Sex: 70 / M ADM Date: 07/02/21 Loc: [place] Room: Type: [facility] Attending Dr: Shahriar Dhillon II, MD [...] Signed By Moreno Rosario DO 07/02 1306 [facility] [place] 07-02-2021 L - -------- Specimen: [id number] Received: 07/02/21 Status: LORETTA Lisbeth Num: [id number] Spec Type: Surgical Subm Dr: Shahriar Dhillon MD Tissues: A Femoral Head - Other than Fracture (L HIP) Procedures: HE Stain, Gross/Micro L3, Decal -------- Patient Age/Sex Location Account Attending Physician -------- Fredrick Stroud 70/M 4N [id number] Shahriar Dhillon MD -------- SPEC NUM: [id number] RECD: 07/02/21 STATUS: LORETTA SOLIS NUM: [id number] MILY: 07/02/21- DR: Shahriar Dhillon MD ENTERED: 07/02/21 [facility] DR: LEBRON TYPE: Surgical DEPT: S [...] bone fragments and scant soft tissue. A student services representative section of bone, following formalin fixation and decalcification is submitted in cassette A 1. (KULDEEP/NORA) -------- Specimen: [id number] Received: 07/02/21 Status: LORETTA Solis Num: [id number] Spec Type: Surgical Subm Dr: Shahriar Dhillon MD Tissues: A Femoral Head - Other than Fracture (L HIP) Procedures: HE Stain, Gross/Micro L3, Decal -------- Patient: Fredrick Stroud [id number] (Continued) -------- Specimen: Received: 07/02/21 (Continued) Signed (signature on file) Kaycee Curry MD 07/04/21 1625 -------- Specimen: Received: 07/02/21 Status: LORETTA Solis Num: [id number] Spec Type: Surgical Subm Dr: Shahriar Dhillon MD Tissues: A Femoral Head - Other than Fracture (L HIP) Procedures: HE Stain, Gross/Micro L3, Decal -------- Patient: Fredrick Stroud [id number] (Continued) -------- Specimen: Received: 07/02/21 (Continued) Microscopic Description One glass slide with H E stained material has been examined. The microscopic findings support the above pathologic diagnosis. CPT Codes 35104, 70249 -------- -------- Specimen: Received: 07/02/21 Status: LORETTA Solis Num: [id number] Spec Type: Surgical Subm Dr: Shahriar Dhillon MD Tissues: A Femoral Head - Other than Fracture (L HIP) Procedures: HE Stain, Gross/Micro L3, Decal -------- Patient: Fredrick Stroud [id number] (Continued) -------- Signed (signature on file) Kaycee Curry MD 07/04/21 1625 [facility] XR hip LT 1Von 07-02-2021 XR hip LT 1V [place] [address] XRay Report Signed Patient: Fredrick Stroud MR#: [id number] 427 : 1950 Acct:[id number] Age/Sex: 70 / M ADM Date: 07/02/21 Loc: [place] Room: Type: [facility] Attending Dr: Shahriar Dhillon II, MD Ordering [...] Stevenson Jr., D.ODre07/02/2021 9:26 AM Dictation Location: [facility] Transcribed By: [facility] 07/02/21925 Dictated By: Dandy Stevenson Jr DO 07/02/21922 Signed By: 07/02/21925 [facility] XR low pelvis w/LT x-table h ipon 07-02-2021 XR low pelvis w/LT x-table hip [facility] [place] [address] XRay Report Signed Patient: Fredrick Stroud MR#: [id number] 427 : 1950 Acct:[id number] Age/Sex: 70 / M ADM Date: 07/02/21 Loc: [place] Room: Type: [facility] Attending Dr: Shahriar Dhillon II, MD Ordering [...] Ariana Tanner M.D.07/02/2021 12:05 PM Dictation Location: RADIO--13 Transcribed By: [facility] 07/02/21 120 Dictated By: Ariana Tanner MD 07/02/21 1204 Signed By: 07/02/21 120 [facility] COVID-19 [facility] [place] SARS-CoV-2 (COVID-19) RNA FABI+probe Ql (Unsp spec) Negative Normal Negative [facility] Comment on above: Order Comment: 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 This test has not been FDA [...] is terminated or revoked sooner. PERFORMED BY: [facility] [address] [place] [address] PATHOLOGIST PROFESSOR OF GEOGRAPHY EYAD HOWARD M.D. Performed By: #### C BC, CMP, HS TROP, BNP #### [facility] [address] [place] [id number] [facility] Basic Metabolic Panelon 05-26 Calcium [Mass/Vol] 9.4 mg/dL Normal 8.2-10.2 [facility] Comment on above: Result Comment: PERF ORMED BY: [facility] [address] [place] [address] PATHOLOGIST PROFESSOR OF GEOGRAPHY EYAD HOWARD M.D. Performed By: #### C OVID-19 GERTRUDE, SOFIANEG #### [facility] [address] [place] [id number] [facility] Chloride [Moles/Vol] 103 mmol/L Normal 95-114 [facility] Comment on above: Performed By: #### C OVID-19 GERTRUDE, SOFIANEG #### [facility] [address] [place] [address] [place] CO2 [Moles/Vol] 26.4 mmol/L Normal 22.0-30.0 [facility] Comment on above: Performed By: #### C OVID-19 GERTRUDE, SOFIANEG #### [facility] [address] Creatinine [Mass/Vol] 0.89 mg/dL Normal 0.64-1.27 [facility] Comment on above: Performed By: #### C OVID-19 GERTRUDE, SOFIANEG #### [facility] [address] Estimated GFR ( Jessica > 60 Normal [facility] Comment on above: Result Comment: GFR estimated reference range: According to KDOQI guidelines, <60 ml/min/1.73m2 is sufficient to diagnose a patient with chronic kidney disease. Performed By: #### C OVID-19 GERTRUDE SOFIANEG #### [facility] [address] Estimated GFR (Non- Am > 60 Normal [facility] Comment on above: Performed By: #### C OVID-19 GERTRUDE SOFIANEG #### [facility] [address] [place] [address] [place] Glucose [Mass/Vol] 101 mg/dL High 70-100 [facility] Comment on above: Result Comment: [place] Glucose Reference Range is dependent on time and content of last meal. Glucose of more than 200 mg/dL in a nonstressed, ambulatory subject supports the diagnosis of Diabetes Mellitus. ADA recommended reference range Performed By: #### C OVID-19 GERTRUDE, SOFIANEG #### [facility] [address] [place] [id number] [place] Potassium [Moles/Vol] 4.4 mmol/L Normal 3.5-5.1 [facility] Comment on above: Performed By: #### C OVID-19 GERTRUDE, SOFIANEG #### [facility] [address] [place] [address] [place] Sodium [Moles/Vol] 139 mmol/L Normal 136-146 [facility] Comment on above: Performed By: #### C OVID-19 GERTRUDE, SOFIANEG #### [address] Urea nitrogen [Mass/Vol] 23 mg/dL Normal 9-23 [facility] Comment on above: Performed By: #### C OVID-19 GERTRUDE, SOFIANEG #### [address] Complete Blood Count Auto Di ffon 06-18-2021 Basophils (Bld) [#/Vol] 0.0 10*3/uL Normal 0.0-0.2 [facility] Comment on above: Result Comment: PERF ORMED BY: [place] [address] PATHOLOGIST PROFESSOR OF GEOGRAPHY EYAD HOWARD M.D. Performed By: #### C OVID-19 GERTRUDE, SOFIANEG #### [address] Basophils/100 WBC (Bld) 0.9 % Normal . [facility] Comment on above: Performed By: #### C OVID-19 GERTRUDE, SOFIANEG #### [address] Eosinophils (Bld) [#/Vol] 0.1 10*3/uL Normal 0.0-0.45 [facility] Comment on above: Performed By: #### C OVID-19 GERTRUDE, SOFIANEG #### [address] Eosinophils/100 WBC (Bld) 1.4 % Normal . [facility] Comment on above: Performed By: #### C OVID-19 GERTRUDE, SOFIANEG #### [address] Erythrocyte distribution width (RBC) [Ratio] 14.0 % Normal 12.0-14.8 [facility] Comment on above: Performed By: #### C OVID-19 GERTRUDE, SOFIANEG #### [place] [id number] [place] Hematocrit (Bld) [Volume fraction] 41.8 % Normal 38.8-50.0 [facility] Comment on above: Performed By: #### C OVID-19 GERTRUDE, SOFIANEG #### [facility] [address] Hemoglobin (Bld) [Mass/Vol] 14.2 g/dL Normal 13.0-17.0 [facility] Comment on above: Performed By: #### C OVID-19 GERTRUDE, SOFIANEG #### [address] Lymphocytes (Bld) [#/Vol] 1.1 10*3/uL Normal 1.00-4.8 [facility] Comment on above: Performed By: #### C OVID-19 GERTRUDE, SOFIANEG #### [address] Lymphocytes/100 WBC (Bld) 22.7 % Normal . [facility] Comment on above: Performed By: #### C OVID-19 GERTRUDE, SOFIANEG #### [facility] [address] [place] [address] MCH (RBC) [Entitic mass] 30.4 pg Normal 27.5-35.2 [facility] Comment on above: Performed By: #### C OVID-19 GERTRUDE, SOFIANEG #### [facility] [address] [place] [address] MCV (RBC) [Entitic vol] 89.7 fL Normal 83.5-101 [facility] Comment on above: Performed By: #### C OVID-19 GERTRUDE, SOFIANEG #### [facility] [address] [place] [address] Mean Corpuscular HGB Conc 33.9 g/dL Normal 32.5-35.6 [facility] Comment on above: Performed By: #### C OVID-19 GERTRUDE, SOFIANEG #### [facility] [address] [place] [address] Monocytes (Bld) [#/Vol] 0.5 10*3/uL Normal 0.0-0.8 [facility] Comment on above: Performed By: #### C OVID-19 GERTRUDE, SOFIANEG #### [facility] [address] [place] [address] [place] Monocytes/100 WBC (Bld) 11.2 % Normal . [facility] Comment on above: Performed By: #### C OVID-19 GERTRUDE, SOFIANEG #### [facility] [address] [place] [address] Neutrophils (Bld) [#/Vol] 3.1 10*3/uL Normal 1.8-7.7 [facility] Comment on above: Performed By: #### C OVID-19 GERTRUDE, SOFIANEG #### [address] Neutrophils/100 WBC (Bld) 63.8 % Normal . [facility] Comment on above: Performed By: #### C OVID-19 GERTRUDE, SOFIANEG #### [facility] [address] [place] [address] Nucleated RBC/100 WBC (Bld) [Ratio] 0.1 % Normal 0-0.5 [facility] Comment on above: Performed By: #### C OVID-19 GERTRUDE, SOFIANEG #### [address] Platelet mean volume (Bld) [Entitic vol] 8.2 fL Normal 6.6-10.1 [facility] Comment on above: Performed By: #### C OVID-19 GERTRUDE, SOFIANEG #### [facility] [address] [place] [address] [place] Platelets (Bld) [#/Vol] 243 10*3/uL Normal 150-450 [facility] Comment on above: Performed By: #### C OVID-19 GERTRUDE, SOFIANEG #### [facility] [address] [place] [address] [place] RBC (Bld) [#/Vol] 4.67 10*6/uL Normal 3.90-5.60 [facility] Comment on above: Performed By: #### C OVID-19 GERTRUDE, SOFIANEG #### [facility] [address] WBC (Bld) [#/Vol] 4.8 10*3/uL Normal 4.5-11.0 [facility] Comment on above: Performed By: #### C OVID-19 GERTRUDE, SOFIANEG #### [facility] [address] [place] [address] ECG 12 lead ECGon 06-18-2021 ECG 12 lead ECG [facility] [place] [address] [place] [address] Electrocardiograph Report Signed Patient: Fredrick Stroud MR#: [id number] : [id number] Acct:[id number] Age/Sex: 70 / M ADM Date: 06/18/21 Loc: Room: Type: [facility] Attending Dr: Shahriar Dhillon [...] Wisam Torre MD 0 06/19/21 1006 Normal [facility] Fructosamineon 06-18-2021 Fructosamine 217 umol/L Normal 0-285 [facility] Comment on above: Result Comment: Publ ished reference interval for apparently healthy subjects between age 20 and 60 is 205 - 285 umol/L and in a poorly controlled diabetic population is 228 - 563 umol/L with a mean of 396 umol/L. Performed at: - [facility], [place], [place] [id number] [employer] Installer: Benton Caro PhD, Phone: [phone] PERFORMED BY: [place] [address] PATHOLOGIST PROFESSOR OF GEOGRAPHY EYAD HOWARD M.D. Performed By: #### C OVID-19 GERTRUDE, SOFIANEG #### [address] PST Type and Screenon 2021 ABO and Rh group Nom (Bld) Blood group O Rh(D) positive Normal [facility] Comment on above: Order Comment: Date of Surgery: [id number] Result Comment: PERF ORMED BY: [place] [address] PATHOLOGIST PROFESSOR OF GEOGRAPHY EYAD HOWARD M.D. Urinalysison 06-18-2021 Appearance (U) Clear Normal Clear [facility] Comment on above: Order Comment: Name Collection Type:: Clean-Voided Midstream Performed By: #### C BC, CMP, HS TROP, BNP #### [place] [address] [place] Bilirubin,Urine Negative Normal Negative [facility] Comment on above: Order Comment: Name Collection Type:: Clean-Voided Midstream Performed By: #### C BC, CMP, HS TROP, BNP #### [place] [address] [place] Color (U) Yellow Normal Yellow [facility] Comment on above: Order Comment: Name Collection Type:: Clean-Voided Midstream Performed By: #### C BC, CMP, HS TROP, BNP #### [place] [address] [place] Glucose Ql (U) Normal Normal Normal [facility] Comment on above: Order Comment: Name Collection Type:: Clean-Voided Midstream Performed By: #### C BC, CMP, HS TROP, BNP #### [place] [address] [place] Ketones Ql (U) Negative Normal Negative [facility] Comment on above: Order Comment: Name Collection Type:: Clean-Voided Midstream Performed By: #### C BC, CMP, HS TROP, BNP #### [facility] [address] [place] [address] Leukocyte esterase Test strip Ql (U) Negative Normal Negative [facility] Comment on above: Order Comment: Name Collection Type:: Clean-Voided Midstream Performed By: #### C BC, CMP, HS TROP, BNP #### [place] [address] [place] Nitrite,Urine Negative Normal Negative [facility] Comment on above: Order Comment: Name Collection Type:: Clean-Voided Midstream Performed By: #### C BC, CMP, HS TROP, BNP #### [address] Occult Blood,Urine Negative Normal Negative [facility] Comment on above: Order Comment: Name Collection Type:: Clean-Voided Midstream Result Comment: PERF ORMED BY: [place] [address] PATHOLOGIST PROFESSOR OF GEOGRAPHY EYAD HOWARD M.D. Performed By: #### C BC, CMP, HS TROP, BNP #### [place] [address] [place] pH (U) 7.5 [pH] Normal 5.0-9.0 [facility] Comment on above: Order Comment: Name Collection Type:: Clean-Voided Midstream Performed By: #### C BC, CMP, HS TROP, BNP #### [place] [address] [place] Protein,Urine Negative Normal Negative [facility] Comment on above: Order Comment: Name Collection Type:: Clean-Voided Midstream Performed By: #### C BC, CMP, HS TROP, BNP #### [place] [address] [place] Specificy Raymond,Urine 1.023 Normal 1.001-1.030 [facility] Comment on above: Order Comment: Name Collection Type:: Clean-Voided Midstream Performed By: #### C BC, CMP, HS TROP, BNP #### [facility] [address] [place] [address] [place] Urobilinogen,Urine Normal Normal Normal [facility] Comment on above: Order Comment: Name Collection Type:: Clean-Voided Midstream Performed By: #### C BC, CMP, HS TROP, BNP #### [facility] [address] Urinalysis - AUTOMATEDon Appearance (U) CLEAR [facility] Other Bilirubin Ql (U) Negative [employer] Other Color (U) YELLOW [employer] Other Glucose Ql (U) Negative [facility] Other Hemoglobin Ql (U) Negative [employer] Other Ketones Ql (U) Negative [facility] Other Leukocyte esterase Test strip Ql (U) Negative [employer] Other Nitrite Ql (U) Negative [facility] Other pH (U) 6.0 [pH] [employer] Other Protein Ql (U) Negative [facility] Other Specific gravity (U) [Rel density] 1.010 [employer] Other Urobilinogen (U) [Mass/Vol] 0.2 mg/dL [employer] Other Urinalysis - AUTOMATED [employer] Other Vital Signs Date Time Vital Sign Value Performing Clinician Facility 02-25-2023 13:00-0500 Body temperature 98.2 [degF] Vivian Espinoza MD Work Phone: [facility] 02-25-2023 13:00-0500 Diastolic blood pressure 81 mm[Hg] Vivian Espinoza MD Work Phone: [facility] 02-25-2023 13:00-0500 Heart rate 79 /min Vivian Espinoza MD Work Phone: [facility] 02-25-2023 13:00-0500 Respiratory rate 18 /min Vivian Espinoza MD Work Phone: [facility] 02-25-2023 13:00-0500 SaO2% (BldA) [Mass fraction] 97 % Vivian Espinoza MD Work Phone: [facility] 02-25-2023 13:00-0500 Systolic blood pressure 125 mm[Hg] Vivian Espinoza MD Work Phone: [facility] 02-16-2023 22:54-0500 SaO2% (BldA) [Mass fraction] 96.1 % Vivian Espinoza MD Work Phone: [facility] 02-16-2023 03:00-0500 Body height 167.6 cm Vivian Espinoza MD Work Phone: [facility] 02-16-2023 03:00-0500 Body mass index (BMI) [Ratio] 42.52 kg/m2 Vivian Espinoza MD Work Phone: [facility] 02-16-2023 03:00-0500 Body weight 119.5 kg Vivian Espinoza MD Work Phone: [facility] 02-15-2023 20:06-0500 Body temperature 97.52 [degF] Justice [facility] 02-15-2023 20:06-0500 Diastolic blood pressure 63 mm[Hg] Justice [facility] 02-15-2023 20:06-0500 Heart rate 70 /min [facility] 02-15-2023 20:06-0500 Mean blood pressure 76 mm[Hg] Justice [facility] 02-15-2023 20:06-0500 Respiratory rate 18 /min [facility] 02-15-2023 20:06-0500 SaO2% (BldA) [Mass fraction] 94 % [facility] 02-15-2023 20:06-0500 Systolic blood pressure 101 mm[Hg] Justice [facility] 02-15-2023 20:00-0500 Diastolic blood pressure 74 mm[Hg] Justice [facility] 02-15-2023 20:00-0500 Heart rate 63 /min [facility] 02-15-2023 20:00-0500 Hourly Rounding Justice [facility] 02-15-2023 20:00-0500 Promise to Return Justice [facility] 02-15-2023 20:00-0500 SaO2% (BldA) [Mass fraction] 100 % [facility] 02-15-2023 20:00-0500 Systolic blood pressure 112 mm[Hg] Justice [facility] 02-15-2023 19:57-0500 Diastolic blood pressure 78 mm[Hg] Justice [facility] 02-15-2023 19:57-0500 Heart rate 101 /min [facility] 02-15-2023 19:57-0500 Mean blood pressure 90 mm[Hg] Justice [facility] 02-15-2023 19:57-0500 Respiratory rate 14 /min [facility] 02-15-2023 19:57-0500 SaO2% (BldA) [Mass fraction] 98 % [facility] 02-15-2023 19:57-0500 Systolic blood pressure 113 mm[Hg] Justice [facility] 02-15-2023 19:47-0500 Heart rate 85 /min [facility] 02-15-2023 19:47-0500 Mean blood pressure 49 mm[Hg] Justice [facility] 02-15-2023 19:47-0500 Respiratory rate 14 /min [facility] 02-15-2023 19:34-0500 Blood Pressure Location Justice [facility] 02-15-2023 19:34-0500 Body temperature 97.52 [degF] Justice [facility] 02-15-2023 19:34-0500 Heart rate 68 /min [facility] 02-15-2023 19:19-0500 Heart rate 67 /min [facility] 02-15-2023 19:00-0500 [address]ly [address] [facility] 02-15-2023 19:00-0500 Promise to Return Justice [facility] 02-15-2023 18:45-0500 Body temperature 97.52 [degF] Justice [facility] 02-15-2023 18:17-0500 Body temperature 97.52 [degF] Justice [facility] 02-15-2023 18:00-0500 Hourly [address] Justice [facility] 02-15-2023 18:00-0500 Promise to Return Justice Pretty [facility] 02-15-2023 16:28-0500 Body temperature 97.88 [degF] Justice [facility] 08-30-2022 08:53-0400 Body height 167.64 cm Karina Guardadoon Work Phone: [facility] [address] DO Work Phone: 08-30-2022 08:53-0400 Body mass index (BMI) [Ratio] 38.74 kg/m2 Karina Melgar Work Phone: [facility] 250 DO Work Phone: 08-30-2022 08:53-0400 Body surface area Derived from formula 2.16 m2 Karina Melgar Work Phone: [facility] 250 DO Work Phone: 08-30-2022 08:53-0400 Body weight 108.86 kg Karina Melgar Work Phone: [facility] 250 DO Work Phone: 08-30-2022 08:53-0400 Diastolic blood pressure 62 mm[Hg] Karina Melgar Work Phone: [facility] 250 DO Work Phone: 08-30-2022 08:53-0400 Heart rate 55 /min Karina Melgar Work Phone: [facility] 250 DO Work Phone: 08-30-2022 08:53-0400 Systolic blood pressure 128 mm[Hg] Karina Melgar Work Phone: [facility] [address] DO Work Phone: 08-13-2022 13:21-0400 Body height 167.64 cm Karina Lisa Ramón Work Phone: [facility] 250 DO Work Phone: 08-13-2022 13:21-0400 Body mass index (BMI) [Ratio] 39.87 kg/m2 Karina Lisa Ramón Work Phone: [facility] 250 DO Work Phone: 08-13-2022 13:21-0400 Body surface area Derived from formula 2.19 m2 Karina Lisa Ramón Work Phone: [facility] 250 DO Work Phone: 08-13-2022 13:21-0400 Body weight 112.04 kg Karina Guardadoon Work Phone: [facility] 250 DO Work Phone: 08-13-2022 13:21-0400 Diastolic blood pressure 70 mm[Hg] Karina Guardadoon Work Phone: [facility] 250 DO Work Phone: 08-13-2022 13:21-0400 Heart rate 70 /min Karina Lisa Ramón Work Phone: [facility] 250 DO Work Phone: 08-13-2022 13:21-0400 Systolic blood pressure 136 mm[Hg] Karina Guardadoon Work Phone: [facility] 250 DO Work Phone: 07-05-2022 09:08-0400 Body height 167.64 cm Karina Lisa Melgar Work Phone: [facility] 600 DO Work Phone: 07-05-2022 09:08-0400 Body mass index (BMI) [Ratio] 39.54 kg/m2 Karina Guardadoon Work Phone: [facility] 600 DO Work Phone: 07-05-2022 09:08-0400 Body surface area Derived from formula 2.18 m2 Karina Guardadoon Work Phone: [facility] 600 DO Work Phone: 07-05-2022 09:08-0400 Body weight 111.13 kg Karina Guardadoon Work Phone: [facility] [address] DO Work Phone: 07-05-2022 09:08-0400 Diastolic blood pressure 70 mm[Hg] Karina Guardadoon Work Phone: [facility] [address] DO Work Phone: 07-05-2022 09:08-0400 Heart rate 72 /min Karina Guardadoon Work Phone: [facility] [address] DO Work Phone: 07-05-2022 09:08-0400 Systolic blood pressure 138 mm[Hg] Karina Guardadoon Work Phone: [facility] [address] DO Work Phone: 06-20-2022 16:24-0400 Body height 167.64 cm Karina Melgar Work Phone: [facility] 250 DO Work Phone: 06-20-2022 16:24-0400 Body mass index (BMI) [Ratio] 40.03 kg/m2 Karina Melgar Work Phone: [facility] 250 DO Work Phone: 06-20-2022 16:24-0400 Body surface area Derived from formula 2.19 m2 Karina Melgar Work Phone: [facility] DO Work Phone: 06-20-2022 16:24-0400 Body weight 112.49 kg Karina Melgar Work Phone: [facility] 250 DO Work Phone: 06-20-2022 16:24-0400 Diastolic blood pressure 102 mm[Hg] Karina Lisa Ramón Work Phone: [facility] 250 DO Work Phone: 06-20-2022 16:24-0400 Heart rate 76 /min Karina Lisa aRmón Work Phone: [facility] DO Work Phone: 06-20-2022 16:24-0400 Systolic blood pressure 162 mm[Hg] Karina Lisa Ramón Work Phone: [facility] DO Work Phone: 05-10-2022 14:46-0400 Body height 167.64 cm Karina Lisa Ramón Work Phone: [facility] [address] [place] Work Phone: 05-10-2022 14:46-0400 Body mass index (BMI) [Ratio] 40.19 kg/m2 Karina Lisa Ramón Work Phone: [facility] [address] [place] Work Phone: 05-10-2022 14:46-0400 Body surface area Derived from formula 2.2 m2 Karina Lisa Ramón Work Phone: [facility] [address] [place] Work Phone: 05-10-2022 14:46-0400 Body weight 112.95 kg Karina Lisa Ramón Work Phone: [facility] [address] [place] Work Phone: 05-10-2022 14:46-0400 Diastolic blood pressure 80 mm[Hg] Karina Lisa Ramón Work Phone: [facility] [address] [place] Work Phone: 05-10-2022 14:46-0400 Heart rate 61 /min Karina Lisa Ramón Work Phone: [facility] [address] [place] Work Phone: 05-10-2022 14:46-0400 Systolic blood pressure 130 mm[Hg] Karina Lisa Ramón Work Phone: [facility] [address] [place] Work Phone: 05-02-2022 13:26-0500 Body height 167.64 cm Karina Lisa Ramón Work Phone: [facility] [address] DO Work Phone: 05-02-2022 13:26-0500 Body mass index (BMI) [Ratio] 40.19 kg/m2 Karina Lisa Ramón Work Phone: [facility] [address] DO Work Phone: 05-02-2022 13:26-0500 Body surface area Derived from formula 2.2 m2 Karina Lisa Ramón Work Phone: [facility] [address] DO Work Phone: 05-02-2022 13:26-0500 Body weight 112.95 kg Karina Lisa Ramón Work Phone: [facility] [address] DO Work Phone: 05-02-2022 13:26-0500 Diastolic blood pressure 64 mm[Hg] Karina Lisa Ramón Work Phone: [facility] [address] DO Work Phone: 05-02-2022 13:26-0500 Heart rate 62 /min Karina Lisa Ramón Work Phone: [facility] [address] DO Work Phone: 05-02-2022 13:26-0500 Systolic blood pressure 116 mm[Hg] Karina Lisa Melgar Work Phone: [facility] [address]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
[2023-04-11 10:17] LABS: INR 1.99; Prothrombin Time 20.3 sec (9.0-11.6)
== END 2023-04-11 03:42 | disposition home or self-care (01) ==
LOC: LAB 03:41
PROVIDERS: PCP Family Medicine; Visit Provider Family Medicine
DX: I48.0 Paroxysmal atrial fibrillation (principal)
CPT/HCPCS: 36415; 85610

== ENCOUNTER 2023-04-18 01:28 | Outpatient (REF) | payer MEDICARE, SELFPAY ==
--- OUTSIDE RECORDS SUMMARY | 2023-04-18 01:33 | XMS_ITS | CCD ---
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 educate Patient and/or Family on the Trauma Recovery Center and Resources Available. Patient is Receiving Medical Care at time of visit. [facility] staff will attempt to engage with Patient and/or Family the next business day. Vinay Healy Main Line: [phone] Normal [facility] Ultimate Shopperation Interface Message Text Attestation signed by Shiva Ryan MD at 02/26/2023 2:57 PM Teaching Physician Note: I saw and evaluated the patient. I personally obtained the lopez and critical portions of the history and physical exam. I reviewed the resident's documentation and discussed the patient with the resident. I agree with the resident's medical decision making as documented in the resident's note. Shiva Ryan MD TRAUMA - DAILY PROGRESS NOTE Patient seen and examined on 02/25/2023 Patient Name: Fredrick Stroud Admission Date: 02/15/2023 [...] R rib 9-10 fracture was seen at [facility].The patient had 5 packs of RBCs, 3 packs of FFP, 1 platelet, TXA and Vit K from when he arrived to [facility] and in transit. Patient takes coumadin. Hospital Course: 02/16- became hypotensive, concern for aspiration PNA. Central line, art line placed. On dual pressors. 02/17- weaned off pressors. right of way man attempted bedside echo. 02/18- OR with ortho for ORIF of L femur 02/19- transferred from TICU to floor 02/20 beckman reinserted for retention, diuresed 4L 02/21 no acute events 02/22 No acute events. Agreeable for SNF placement. 02/23: No acute events. Awaiting SNF placement. Feels stiff, would like to move around more. 02/24: No acute events. Awaiting [facility] 24-hour Events: Isaias discontinued Coumadin resumed Accepted at [facility] -------- VITALS AND INPUT/OUTPUT --------- Vital Signs: Vital sign ranges over the past 24 hours (retrieved 02/25/2023 at 3:56 PM): Tmax (24 hours): 98.2 ???F (36.8 ???C) Pulse Av Min: 75 Max: 79 Systolic (24hrs), Av , Min:110 , Max:125 Diastolic (24hrs), Av, Min:62, Max:81 MAP (mmHg) Av.7 mmHg Min: 73 mmHg Max: 93 mmHg Resp Av Min: 18 Max: 18 SpO2 Av.7 % Min: 96 % Max: 97 % 24 Hour Input/Output In: 830 (6.9 mL/kg) [P.O.:830] Out: 1050 (8.8 mL/kg) [Urine:1050 (0.4 mL/kg/hr)] Net: -220 Weight: 119.5 kg PHYSICAL EXAM Constitutional: Awake, alert, resting in bed Cardiovascular: RRR Pulmonary/Chest: CTAB, on room air Abdominal: remains soft, not distended, not tender : Isaias discontinued Musculoskeletal: trace edema, +scrotal edema, bruising Neurological: awake, alert, oriented LABORATORY RESULTS (LAST 24 HOURS) CBC/PT/INR WBC RBC Hgb Hct MCV RDW Plt PT aPTT INR 01/02/24 0440 1.13 02/25/23136 8.5 2.90 8.9 27.5 95 16.3 376 Basic Metabolic Panel Na K Cl CO2 Gap Glu BUN Cr Ca Mg PO4 02/25/23136 2.9 02/25/23136 1.9 02/25/23136 136 Comment: Note updated reference ranges. 3.8 Comment: Note updated reference ranges. Note updated reference ranges. 102 Comment: Note updated reference ranges. 30 Comment: Note updated reference ranges. 8 129 20 Comment: Note updated reference ranges. 0.64 Comment: Note updated reference ranges. 8.0 Comment: Note updated reference ranges. Arterial Blood Gases None --------- ASSESSMENT AND PLAN Assessment: Fredrick Stroud is a 72 year [...] propefanone 425 mg BID - Hold home lisinopril-hydrochlor othiazide 10-12.5 mg daily - Hold home coumadin - Cardiology cons (more content not included)... Normal [facility] Recycling Specialist Authentication Interface Message Text Discharge plan: SNF, awaiting facility acceptance. Contacted [facility] to follow up determination. VM was left for admissions department, awaiting reply. ALEE Montes, BUSINESS INFO CONSULTANT ADDENDUM 1:45PM [facility] denied pt. Called pt's , Rae ([phone]) to obtain additional SNF choices. She selected the following: [facility] Referrals are in process. ALEE Montes, JINNY ADDENDUM 2:48PM [facility] accepted pt. aware and would like to proceed with the facility. ALEE Montes, JINNY Normal [facility] ANTI FXA-LMW HEPARINon 02-24 ANTI FXA-LMW HEPARIN ASSAY 0.32 IU/mL Normal [facility] Comment on above: Order Comment: The r ecommended therapeutic range for treatment of thrombosis with Low Molecular Weight Heparin is 0.5 - 1.0 IU/mLThe recommended range for VTE prophylaxis with Low Molecular Weight Heparin is 0.2 - 0.4 IU/mL. Performed By: #### A XL ####[facility] [id number] [place], [place], LMW Heparin Chromogenic method Qn (PPP) 0.32 IU/mL [facility] BASIC METABOLIC PANELon Anion gap [Moles/Vol] 9 mmol/L Low 10-20 [facility] Comment on above: Performed By: #### V ANC R, MG, PHOS, CH8 #### [facility] [address], [place], Calcium [Mass/Vol] 7.7 mg/dL Low 8.6-10.3 [facility] Comment on above: Result Comment: Note updated reference ranges. Performed By: #### V ANC R, MG, PHOS, CH8 #### [facility] [address], [place], Chloride [Moles/Vol] 101 mmol/L Normal 98-107 [facility] Comment on above: Result Comment: Note updated reference ranges. Performed By: #### V ANC R, MG, PHOS, CH8 #### [facility] [address], [place], CO2 [Moles/Vol] 30 mmol/L Normal 21-31 [facility] Comment on above: Result Comment: Note updated reference ranges. Performed By: #### V ANC R, MG, PHOS, CH8 #### [facility] [address], [place], Creatinine [Mass/Vol] 0.60 mg/dL Low 0.70-1.30 [facility] Comment on above: Result Comment: Note updated reference ranges. Performed By: #### V ANC R, MG, PHOS, CH8 #### [facility] [address], [place], ESTIMATED GFR (CKD-EPI) 101 mL/min/1.73sqm Normal >=60 [facility] Comment on above: Result Comment: 2020 [...] Inclusion of Race in Diagnosing Kidney Disease. [place] Journal of Kidney Diseases 2021;79(2):268-88.e1. 2. N Engl J Med 2020 Vol. 385 Issue 19 Pages 2764-4405 Performed By: #### V ANC R, MG, PHOS, CH8 #### [facility] [address], [place], Glucose [Mass/Vol] 98 mg/dL Normal 74-109 [facility] Comment on above: Performed By: #### V ANC R, MG, PHOS, CH8 #### [facility] [address], [place], Potassium [Moles/Vol] 4.0 mmol/L Normal 3.5-5.0 [facility] Comment on above: Result Comment: Note updated reference ranges. Note updated reference ranges. Performed By: #### V ANC R, MG, PHOS, CH8 #### [facility] [address], [place], Sodium [Moles/Vol] 136 mmol/L Normal 136-145 The [facility] Comment on above: Result Comment: Note updated reference ranges. Performed By: #### V ANC R, MG, PHOS, CH8 #### [facility] [address], [place], Urea nitrogen [Mass/Vol] 19 mg/dL Normal 7-25 The [facility] Comment on above: Result Comment: Note updated reference ranges. Performed By: #### V ANC R, MG, PHOS, CH8 #### [facility] [address], [place], Basic metabolic 2000 panelon 02-24-2023 Anion gap [Moles/Vol] 9 mmol/L Low 10 - 20 [facility] Calcium [Mass/Vol] 7.7 mg/dL Low 8.6 - 10. 3 mg/dL [facility] Chloride [Moles/Vol] 101 mmol/L 98 - 107 mmol/L [facility] CO2 [Moles/Vol] 30 mmol/L 21 - 31 mmol/L [facility] Creatinine [Mass/Vol] 0.60 mg/dL Low 0.70 - 1.30 mg/dL [facility] GFR/1.73 sq M.predicted CKD-EPI (S/P/Bld) [Vol rate/Area] 101 - PINF [facility] Glucose [Mass/Vol] 98 mg/dL 74 - 109 mg/dL [facility] Interpretation and review of laboratory results Abnormal [facility] Potassium [Moles/Vol] 4.0 mmol/L 3.5 - 5.0 mmol/L [facility] Sodium [Moles/Vol] 136 mmol/L 136 - 145 mmol/L [facility] Urea nitrogen [Mass/Vol] 19 mg/dL 7 - 25 mg/dL [facility] CBC panel Auto (Bld)on 02-24 Erythrocyte distribution width (RBC) [Ratio] 15.4 % High 11.5 - 14.5 % [facility] Hematocrit (Bld) [Volume fraction] 25.2 % Low 41.0 - 53.0 % [facility] Hemoglobin (Bld) [Mass/Vol] 8.3 g/dL Low 13.9 - 16.3 g/dL [facility] Interpretation and review of laboratory results Abnormal [facility] MCH (RBC) [Entitic mass] 30.7 pg 26.0 - 34.0 pg [facility] MCHC (RBC) [Mass/Vol] 33.1 g/dL 32.0 - 35.9 g/dL [facility] MCV (RBC) [Entitic vol] 93 fL 80 - 100 fL [facility] Platelet mean volume (Bld) [Entitic vol] 7.6 fL 7.5 - 11.2 fL [facility] Platelets (Bld) [#/Vol] 320 10*3/uL 150 - 400 K/uL [facility] RBC (Bld) [#/Vol] 2.72 10*6/uL Low [facility] WBC (Bld) [#/Vol] 7.6 10*3/uL 4.5 - 11.5 K/uL [facility] COMPLETE BLOOD COUNTon 02-24 Erythrocyte distribution width (RBC) [Ratio] 15.4 % High 11.5-14.5 The [facility] System Comment on above: Performed By: #### C BC ####S PATHOLOGY [id number] [place], [place], Hematocrit (Bld) [Volume fraction] 25.2 % Low 41.0-53.0 [facility] Comment on above: Performed By: #### C BC ####S PATHOLOGY [id number] [place], Hemoglobin (Bld) [Mass/Vol] 8.3 g/dL Low 13.9-16.3 [facility] Comment on above: Performed By: #### C BC ####S PATHOLOGY [id number] [place], MCH (RBC) [Entitic mass] 30.7 pg Normal 26.0-34.0 [facility] Comment on above: Performed By: #### C BC ####S PATHOLOGY [id number] [place], MCHC (RBC) [Mass/Vol] 33.1 g/dL Normal 32.0-35.9 [facility] Comment on above: Performed By: #### C BC ####[facility] PATHOLOGY [id number] [place], MCV (RBC) [Entitic vol] 93 fL Normal 80-100 [facility] Comment on above: Performed By: #### C BC ####S PATHOLOGY [id number] [place], Platelet mean volume (Bld) [Entitic vol] 7.6 fL Normal 7.5-11.2 [facility] Comment on above: Performed By: #### C BC ####[facility] PATHOLOGY [id number] [place], Platelets (Bld) [#/Vol] 320 10*3/uL Normal 150-400 [facility] Comment on above: Performed By: #### C BC ####[facility] PATHOLOGY [id number] [place], RBC (Bld) [#/Vol] 2.72 10*6/uL Low 4.50-5.90 [facility] Comment on above: Performed By: #### C BC ####[facility] PATHOLOGY [id number] [place], WBC (Bld) [#/Vol] 7.6 10*3/uL Normal 4.5-11.5 [facility] Comment on above: Performed By: #### C BC ####[facility] PATHOLOGY [id number] [place], [place], Care Plan Noteon 02-24-2023 Recycling Specialist Authentication Interface Message Text Problem: Routine Care: [...] and once discontinued Outcome: Progressing Normal [facility] MAGNESIUMon 02-24-2023 Magnesium [Mass/Vol] 1.9 mg/dL Normal 1.6-2.8 [facility] Comment on above: Performed By: #### V ANC R, MG, PHOS, CH8 #### [facility] [address] [place] [address], Magnesium [Mass/Vol] 1.9 mg/dL 1.6 - 2.8 mg/dL [facility] No Panel Informationon 02-24 Interpretation and review of laboratory results Normal [facility] PHOSPHORUSon 02-24-2023 Phosphate [Mass/Vol] 2.7 mg/dL Normal 2.3-4.2 [facility] Comment on above: Performed By: #### V ANC R, MG, PHOS, CH8 #### [facility] [address] [place] [address], Phosphate [Mass/Vol] 2.7 mg/dL 2.3 - 4.2 mg/dL [facility] Progress Noteson 02-24-2023 Recycling Specialist Authentication Interface Message Text Attestation signed by Shiva Ryan MD at 02/24/2023 2:20 PM Teaching Physician Note: I saw and evaluated [...] a chair. Pain is well controlled D/c isaias tomorrow Shiva Ryan MD TRAUMA ICU - DAILY PROGRESS NOTE Patient [...] R rib 9-10 fracture was seen at [facility].The patient had 5 packs of RBCs, 3 packs of FFP, 1 platelet, TXA and Vit K from when he arrived to [facility] and in transit. Patient takes coumadin. Hospital Course: 02/16- became hypotensive, concern for aspiration PNA. Central line, art line placed. On dual pressors. 02/17- weaned off pressors. right of way man attempted bedside echo. 02/18- OR with ortho [...] like to keep beckman one more day. -------- VITALS AND INPUT/OUTPUT --------- Vital Signs: Vital sign ranges over the past 24 hours (retrieved 02/24/2023 at 10:53 AM): Tmax (24 hours): 98.8 ???F (37.1 ???C) Pulse Av.3 Min: 77 Max: 82 Systolic (24hrs), Av , Min:107 , Max:127 Diastolic (24hrs), Av, Min:65, Max:78 MAP (mmHg) Av.3 mmHg Min: 79 mmHg Max: 87 mmHg Resp Av.3 Min: 16 Max: 17 SpO2 Av.7 % Min: 95 % Max: 96 % 24 Hour Input/Output In: 500 (4.2 mL/kg) [P.O.:500] Out: 1000 (8.4 mL/kg) [Urine:1000 (0.3 mL/kg/hr)] Net: -500 Weight: 119.5 kg PHYSICAL EXAM Constitutional: Awake, alert, resting comfortably in bed [...] updated reference ranges. Arterial Blood Gases None --------- ASSESSMENT AND PLAN Assessment: Fredrick Stroud is a 72 year [...] atrial fibrillation, HTN, acute on chronic HFpEF, hemorrhagi (more content not included)... Normal [facility] BASIC METABOLIC PANELon 12-3 Anion gap [Moles/Vol] 9 mmol/L Low 10-20 [facility] Comment on above: Performed By: #### T S #### S PATHOLOGY LABORATORY [address] [place] [address], Calcium [Mass/Vol] 7.8 mg/dL Low 8.6-10.3 [facility] Comment on above: Result Comment: Note updated reference ranges. Performed By: #### T S #### S [facility]OLOGY LABORATORY [address] [place] [address], Chloride [Moles/Vol] 99 mmol/L Normal 98-107 [facility] Comment on above: Result Comment: Note updated reference ranges. Performed By: #### T S #### S [facility]Y LABORATORY [address] [place] [address], CO2 [Moles/Vol] 32 mmol/L High 21-31 [facility] Comment on above: Result Comment: Note updated reference ranges. Performed By: #### T S #### S [facility] LABORATORY [address] [place] [address], Creatinine [Mass/Vol] 0.59 mg/dL Low 0.70-1.30 [facility] Comment on above: Result Comment: Note updated reference ranges. Performed By: #### T S #### S [facility]Y LABORATORY [address] [place] [address], ESTIMATED GFR (CKD-EPI) 102 mL/min/1.73sqm Normal >=60 [facility] Comment on above: Result Comment: 2020 [...] Inclusion of Race in Diagnosing Kidney Disease. [place] Journal of Kidney Diseases 202;79(2):268-88.e1. 2. N Engl J Med 1 Vol. 385 Issue 19 Pages 1526-5172 Performed By: #### T S #### [facility] [address] [place] [address], Glucose [Mass/Vol] 88 mg/dL Normal 74-109 [facility] Comment on above: Performed By: #### T S #### S PATHOLOGY LABORATORY [address] [place] [address], Potassium [Moles/Vol] 4.0 mmol/L Normal 3.5-5.0 [facility] Comment on above: Result Comment: Note updated reference ranges. Note updated reference ranges. Performed By: #### T S #### S PATHOLOGY LABORATORY [address] [place] [address], Sodium [Moles/Vol] 136 mmol/L Normal 136-145 [facility] Comment on above: Result Comment: Note updated reference ranges. Performed By: #### T S #### S PATHOLOGY LABORATORY [address] [place] [address], Urea nitrogen [Mass/Vol] 22 mg/dL Normal 7-25 [facility] Comment on above: Result Comment: Note updated reference ranges. Performed By: #### T S #### S PATHOLOGY LABORATORY [address] [place] [address], Basic metabolic 2000 panelon 02-23-2023 Anion gap [Moles/Vol] 9 mmol/L Low 10 - 20 [facility] Calcium [Mass/Vol] 7.8 mg/dL Low 8.6 - 10. 3 mg/dL [facility] Chloride [Moles/Vol] 99 mmol/L 98 - 107 mmol/L [facility] CO2 [Moles/Vol] 32 mmol/L High 21 - 31 mmol/L [facility] Creatinine [Mass/Vol] 0.59 mg/dL Low 0.70 - 1.30 mg/dL [facility] GFR/1.73 sq M.predicted CKD-EPI (S/P/Bld) [Vol rate/Area] 102 - PINF [facility] Glucose [Mass/Vol] 88 mg/dL 74 - 109 mg/dL [facility] Interpretation and review of laboratory results Abnormal [facility] Potassium [Moles/Vol] 4.0 mmol/L 3.5 - 5.0 mmol/L [facility] Sodium [Moles/Vol] 136 mmol/L 136 - 145 mmol/L [facility] Urea nitrogen [Mass/Vol] 22 mg/dL 7 - 25 mg/dL [facility] CBC panel Auto (Bld)on 02-23 Erythrocyte distribution width (RBC) [Ratio] 15.3 % High 11.5 - 14.5 % [facility] Hematocrit (Bld) [Volume fraction] 26.6 % Low 41.0 - 53.0 % [facility] Hemoglobin (Bld) [Mass/Vol] 8.7 g/dL Low 13.9 - 16.3 g/dL [facility] Interpretation and review of laboratory results Abnormal [facility] MCH (RBC) [Entitic mass] 30.4 pg 26.0 - 34.0 pg [facility] MCHC (RBC) [Mass/Vol] 32.7 g/dL 32.0 - 35.9 g/dL [facility] MCV (RBC) [Entitic vol] 93 fL 80 - 100 fL [facility] Platelet mean volume (Bld) [Entitic vol] 8.7 fL 7.5 - 11.2 fL [facility] Platelets (Bld) [#/Vol] 285 10*3/uL 150 - 400 K/uL [facility] RBC (Bld) [#/Vol] 2.86 10*6/uL Low [facility] WBC (Bld) [#/Vol] 8.2 10*3/uL 4.5 - 11.5 K/uL [facility] COMPLETE BLOOD COUNTon 02-23 Erythrocyte distribution width (RBC) [Ratio] 15.3 % High 11.5-14.5 [facility] Comment on above: Performed By: #### C BC ####[facility] PATH[facility] [id number] [place], Hematocrit (Bld) [Volume fraction] 26.6 % Low 41.0-53.0 [facility] Comment on above: Performed By: #### C BC ####[facility] PATHOLOGY [id number] [place], Hemoglobin (Bld) [Mass/Vol] 8.7 g/dL Low 13.9-16.3 [facility] Comment on above: Performed By: #### C BC ####[facility] PATHOLOGY [id number] [place] [address], MCH (RBC) [Entitic mass] 30.4 pg Normal 26.0-34.0 [facility] Comment on above: Performed By: #### C BC ####[facility] PATHOLOGY [id number] [place] [address], MCHC (RBC) [Mass/Vol] 32.7 g/dL Normal 32.0-35.9 [facility] Comment on above: Performed By: #### C BC ####[facility] PATHOLOGY [id number] [place] [address], MCV (RBC) [Entitic vol] 93 fL Normal 80-100 [facility] Comment on above: Performed By: #### C BC ####[facility] PATHOLOGY [id number] [place] [address], Platelet mean volume (Bld) [Entitic vol] 8.7 fL Normal 7.5-11.2 [facility] Comment on above: Performed By: #### C BC ####[facility] PATHOLOGY [id number] [place] [address], Platelets (Bld) [#/Vol] 285 10*3/uL Normal 150-400 [facility] Comment on above: Performed By: #### C BC ####[facility] PATHOLOGY [id number] [place] [address], RBC (Bld) [#/Vol] 2.86 10*6/uL Low 4.50-5.90 [facility] Comment on above: Performed By: #### C BC ####[facility] PATHOLOGY [id number] [place] [address], WBC (Bld) [#/Vol] 8.2 10*3/uL Normal 4.5-11.5 [facility] Comment on above: Performed By: #### C BC ####[facility] [id number] [place], [place], Care Plan Noteon 02-23-2023 Recycling Specialist Authentication Interface Message Text Problem: Routine Care: [...] unit specific routine care procedure Outcome: Progressing Normal [facility] MAGNESIUMon 02-23-2023 Magnesium [Mass/Vol] 2.0 mg/dL 1.6 - 2.8 mg/dL [facility] Magnesium [Mass/Vol] 2.0 mg/dL Normal 1.6-2.8 [facility] Comment on above: Performed By: #### T S #### [facility] [address], [place], No Panel Informationon 02-23 Interpretation and review of laboratory results Normal [facility] PHOSPHORUSon 02-23-2023 Phosphate [Mass/Vol] 2.6 mg/dL 2.3 - 4.2 mg/dL [facility] Phosphate [Mass/Vol] 2.6 mg/dL Normal 2.3-4.2 [facility] Comment on above: Performed By: #### T S #### S PATHOLOGY LABORATORY [address] [place] [address], ANTI FXA-LMW HEPARINon 02-22 ANTI FXA-LMW HEPARIN ASSAY 0.48 IU/mL Normal [facility] Comment on above: Order Comment: The r ecommended therapeutic range for treatment of thrombosis with Low Molecular Weight Heparin is 0.5 - 1.0 IU/mLThe recommended range for VTE prophylaxis with Low Molecular Weight Heparin is 0.2 - 0.4 IU/mL. Performed By: #### V ANC R, MG, PHOS, CH8 #### [facility] [address] [place] [address], LMW Heparin Chromogenic method Qn (PPP) 0.48 IU/mL [facility] BASIC METABOLIC PANELon 01-26 Anion gap [Moles/Vol] 7 mmol/L Low 10-20 [facility] Comment on above: Performed By: #### T S #### [facility] [address] [place] [address], Calcium [Mass/Vol] 7.7 mg/dL Low 8.6-10.3 [facility] Comment on above: Result Comment: Note updated reference ranges. Performed By: #### T S #### [facility] [address], [place], Chloride [Moles/Vol] 101 mmol/L Normal 98-107 The [facility] Comment on above: Result Comment: Note updated reference ranges. Performed By: #### T S #### [facility] [address] [place] [address], CO2 [Moles/Vol] 33 mmol/L High 21-31 [facility] Comment on above: Result Comment: Note updated reference ranges. Performed By: #### T S #### [facility] [address], [place], Creatinine [Mass/Vol] 0.60 mg/dL Low 0.70-1.30 [facility] Comment on above: Result Comment: Note updated reference ranges. Performed By: #### T S #### [facility] [address], [place], ESTIMATED GFR (CKD-EPI) 101 mL/min/1.73sqm Normal >=60 [facility] Comment on above: Result Comment: 2020 [...] Inclusion of Race in Diagnosing Kidney Disease. [place] Journal of Kidney Diseases 2021;79(2):268-88.e1. 2. N Engl J Med 1 Vol. 385 Issue 19 Pages 9213-1641 Performed By: #### T S #### [facility] LABORATORY [address], [place], Glucose [Mass/Vol] 105 mg/dL Normal 74-109 [facility] Comment on above: Performed By: #### T S #### [facility] [address], [place], Potassium [Moles/Vol] 3.6 mmol/L Normal 3.5-5.0 [facility] Comment on above: Result Comment: Note updated reference ranges. Note updated reference ranges. Performed By: #### T S #### [facility] [address], [place], Sodium [Moles/Vol] 137 mmol/L Normal 136-145 [facility] Comment on above: Result Comment: Note updated reference ranges. Performed By: #### T S #### [facility] [address], [place], Urea nitrogen [Mass/Vol] 23 mg/dL Normal 7-25 [facility] Comment on above: Result Comment: Note updated reference ranges. Performed By: #### T S #### [facility] [address] [place], [address] Basic metabolic 2000 panelon 02-22-2023 Anion gap [Moles/Vol] 7 mmol/L Low 10 - 20 [facility] Calcium [Mass/Vol] 7.7 mg/dL Low 8.6 - 10. 3 mg/dL [facility] Chloride [Moles/Vol] 101 mmol/L 98 - 107 mmol/L [facility] CO2 [Moles/Vol] 33 mmol/L High 21 - 31 mmol/L [facility] Creatinine [Mass/Vol] 0.60 mg/dL Low 0.70 - 1.30 mg/dL [facility] GFR/1.73 sq M.predicted CKD-EPI (S/P/Bld) [Vol rate/Area] 101 - PINF [facility] Glucose [Mass/Vol] 105 mg/dL 74 - 109 mg/dL [facility] Interpretation and review of laboratory results Abnormal [facility] Potassium [Moles/Vol] 3.6 mmol/L 3.5 - 5.0 mmol/L [facility] Sodium [Moles/Vol] 137 mmol/L 136 - 145 mmol/L [facility] Urea nitrogen [Mass/Vol] 23 mg/dL 7 - 25 mg/dL [facility] CBC panel Auto (Bld)on 02-22 Erythrocyte distribution width (RBC) [Ratio] 15.4 % High 11.5 - 14.5 % [facility] Hematocrit (Bld) [Volume fraction] 23.9 % Low 41.0 - 53.0 % [facility] Hemoglobin (Bld) [Mass/Vol] 8.0 g/dL Low 13.9 - 16.3 g/dL [facility] Interpretation and review of laboratory results Abnormal [facility] MCH (RBC) [Entitic mass] 30.7 pg 26.0 - 34.0 pg [facility] MCHC (RBC) [Mass/Vol] 33.3 g/dL 32.0 - 35.9 g/dL [facility] MCV (RBC) [Entitic vol] 92 fL 80 - 100 fL [facility] Platelet mean volume (Bld) [Entitic vol] 8.7 fL 7.5 - 11.2 fL [facility] Platelets (Bld) [#/Vol] 227 10*3/uL 150 - 400 K/uL [facility] RBC (Bld) [#/Vol] 2.60 10*6/uL Low [facility] WBC (Bld) [#/Vol] 7.6 10*3/uL 4.5 - 11.5 K/uL M [facility] COMPLETE BLOOD COUNTon 02-22 Erythrocyte distribution width (RBC) [Ratio] 15.4 % High 11.5-14.5 [facility] Comment on above: Performed By: #### C BC ####[facility] [id number] [place] [address], Hematocrit (Bld) [Volume fraction] 23.9 % Low 41.0-53.0 [facility] Comment on above: Performed By: #### C BC ####[facility] PATH[facility]Y [id number] [place] [address], Hemoglobin (Bld) [Mass/Vol] 8.0 g/dL Low 13.9-16.3 [facility] Comment on above: Performed By: #### C BC ####[facility] PATH[facility] [id number] [place] [address], MCH (RBC) [Entitic mass] 30.7 pg Normal 26.0-34.0 [facility] Comment on above: Performed By: #### C BC ####[facility] PATHOLOGY [id number] [place] [address], MCHC (RBC) [Mass/Vol] 33.3 g/dL Normal 32.0-35.9 [facility] Comment on above: Performed By: #### C BC ####[facility] PATHOLOGY [id number] [place] [address], MCV (RBC) [Entitic vol] 92 fL Normal 80-100 [facility] Comment on above: Performed By: #### C BC ####[facility] PATH[facility]Y [id number] [place] [address], Platelet mean volume (Bld) [Entitic vol] 8.7 fL Normal 7.5-11.2 The [facility] Comment on above: Performed By: #### C BC ####[facility] [id number] [place], Platelets (Bld) [#/Vol] 227 10*3/uL Normal 150-400 [facility] Comment on above: Performed By: #### C BC ####[facility] [id number] [place], RBC (Bld) [#/Vol] 2.60 10*6/uL Low 4.50-5.90 [facility] Comment on above: Performed By: #### C BC ####[facility] [id number] [place], WBC (Bld) [#/Vol] 7.6 10*3/uL Normal 4.5-11.5 [facility] Comment on above: Performed By: #### C BC ####[facility] [id number] [place], [place], Care Plan Noteon 02-22-2023 Recycling Specialist Authentication Interface Message Text Problem: Routine Care: [...] and once discontinued Outcome: Progressing Normal [facility] MAGNESIUMon 02-22-2023 Magnesium [Mass/Vol] 2.0 mg/dL Normal 1.6-2.8 [facility] Comment on above: Performed By: #### T S #### [facility] [address] [place] [address], Magnesium [Mass/Vol] 2.0 mg/dL 1.6 - 2.8 mg/dL [facility] No Panel Informationon 02-22 Interpretation and review of laboratory results Normal [facility] PHOSPHORUSon 02-22-2023 Phosphate [Mass/Vol] 2.8 mg/dL Normal 2.3-4.2 [facility] Comment on above: Performed By: #### T S #### [facility] [address] [place] [address], Phosphate [Mass/Vol] 2.8 mg/dL 2.3 - 4.2 mg/dL [facility] BASIC METABOLIC PANELon 01-25 Anion gap [Moles/Vol] 9 mmol/L Low 10-20 [facility] Comment on above: Performed By: #### T S #### [facility] [address], [place], Calcium [Mass/Vol] 7.5 mg/dL Low 8.6-10.3 [facility] Comment on above: Result Comment: Note updated reference ranges. Performed By: #### T S #### [facility] [address], [place], Chloride [Moles/Vol] 100 mmol/L Normal 98-107 [facility] Comment on above: Result Comment: Note updated reference ranges. Performed By: #### T S #### [facility] [address], [place], CO2 [Moles/Vol] 33 mmol/L High 21-31 [facility] Comment on above: Result Comment: Note updated reference ranges. Performed By: #### T S #### [facility] [address], [place], Creatinine [Mass/Vol] 0.65 mg/dL Low 0.70-1.30 [facility] Comment on above: Result Comment: Note updated reference ranges. Performed By: #### T S #### [facility] [address], [place], ESTIMATED GFR (CKD-EPI) 99 mL/min/1.73sqm Normal >=60 [facility] Comment on above: Result Comment: 2020 [...] Inclusion of Race in Diagnosing Kidney Disease. [place] Journal of Kidney Diseases 202;79(2):268-88.e1. 2. N Engl J Med 2020 Vol. 385 Issue 19 Pages 0646-0793 Performed By: #### T S #### S [facility] [address], [place], Glucose [Mass/Vol] 104 mg/dL Normal 74-109 [facility] Comment on above: Performed By: #### T S #### [facility] [address], [place], Potassium [Moles/Vol] 3.5 mmol/L Normal 3.5-5.0 [facility] Comment on above: Result Comment: Note updated reference ranges. Note updated reference ranges. Performed By: #### T S #### [facility] [address], [place], Sodium [Moles/Vol] 138 mmol/L Normal 136-145 [facility] Comment on above: Result Comment: Note updated reference ranges. Performed By: #### T S #### [facility] [address], [place], Urea nitrogen [Mass/Vol] 24 mg/dL Normal 7-25 [facility] Comment on above: Result Comment: Note updated reference ranges. Performed By: #### T S #### [facility] [address], [place], BLOOD CULTUREon 02-21-2023 Bacteria identified Cx Nom (Bld) No Growth [facility] Interpretation and review of laboratory results [facility] Basic metabolic 2000 panelon 02-21-2023 Anion gap [Moles/Vol] 9 mmol/L Low 10 - 20 [facility] Calcium [Mass/Vol] 7.5 mg/dL Low 8.6 - 10. 3 mg/dL [facility] Chloride [Moles/Vol] 100 mmol/L 98 - 107 mmol/L [facility] CO2 [Moles/Vol] 33 mmol/L High 21 - 31 mmol/L [facility] Creatinine [Mass/Vol] 0.65 mg/dL Low 0.70 - 1.30 mg/dL [facility] GFR/1.73 sq M.predicted CKD-EPI (S/P/Bld) [Vol rate/Area] 99 - PINF [facility] Glucose [Mass/Vol] 104 mg/dL 74 - 109 mg/dL [facility] Interpretation and review of laboratory results Abnormal [facility] Potassium [Moles/Vol] 3.5 mmol/L 3.5 - 5.0 mmol/L [facility] Sodium [Moles/Vol] 138 mmol/L 136 - 145 mmol/L [facility] Urea nitrogen [Mass/Vol] 24 mg/dL 7 - 25 mg/dL [facility] CBC panel Auto (Bld)on 02-21 Erythrocyte distribution width (RBC) [Ratio] 14.5 % 11.5 - 14.5 % [facility] Hematocrit (Bld) [Volume fraction] 21.8 % Low 41.0 - 53.0 % [facility] Hemoglobin (Bld) [Mass/Vol] 7.6 g/dL Low 13.9 - 16.3 g/dL [facility] Interpretation and review of laboratory results Abnormal [facility] MCH (RBC) [Entitic mass] 31.5 pg 26.0 - 34.0 pg [facility] MCHC (RBC) [Mass/Vol] 34.6 g/dL 32.0 - 35.9 g/dL [facility] MCV (RBC) [Entitic vol] 91 fL 80 - 100 fL [facility] Platelet mean volume (Bld) [Entitic vol] 8.3 fL 7.5 - 11.2 fL [facility] Platelets (Bld) [#/Vol] 199 10*3/uL 150 - 400 K/uL [facility] RBC (Bld) [#/Vol] 2.40 10*6/uL Low [facility] WBC (Bld) [#/Vol] 9.6 10*3/uL 4.5 - 11.5 K/uL M [facility] COMPLETE BLOOD COUNTon 02-21 Erythrocyte distribution width (RBC) [Ratio] 14.5 % Normal 11.5-14.5 [facility] Comment on above: Performed By: #### C BC ####[facility] [id number] [place], Hematocrit (Bld) [Volume fraction] 21.8 % Low 41.0-53.0 [facility] Comment on above: Performed By: #### C BC ####[facility] [id number] [place], Hemoglobin (Bld) [Mass/Vol] 7.6 g/dL Low 13.9-16.3 [facility] Comment on above: Performed By: #### C BC ####[facility] [id number] [place], MCH (RBC) [Entitic mass] 31.5 pg Normal 26.0-34.0 [facility] Comment on above: Performed By: #### C BC ####S PATHOLOGY [id number] [place], MCHC (RBC) [Mass/Vol] 34.6 g/dL Normal 32.0-35.9 [facility] Comment on above: Performed By: #### C BC ####S PATHOLOGY [id number] [place], MCV (RBC) [Entitic vol] 91 fL Normal 80-100 [facility] Comment on above: Performed By: #### C BC ####[facility] [id number] [place], Platelet mean volume (Bld) [Entitic vol] 8.3 fL Normal 7.5-11.2 [facility] Comment on above: Performed By: #### C BC ####[facility] [id number] [place], Platelets (Bld) [#/Vol] 199 10*3/uL Normal 150-400 [facility] Comment on above: Performed By: #### C BC ####[facility] [id number] [place], RBC (Bld) [#/Vol] 2.40 10*6/uL Low 4.50-5.90 [facility] Comment on above: Performed By: #### C BC ####[facility] [id number] [place], WBC (Bld) [#/Vol] 9.6 10*3/uL Normal 4.5-11.5 [facility] Comment on above: Performed By: #### C BC ####[facility] [id number] [place], Care Plan Noteon 02-21-2023 Recycling Specialist Authentication Interface Message Text Problem: Routine Care: [...] and once discontinued Outcome: Progressing Normal [facility] GLUCOSE, FINGERSTICK-IN OFFI CEon 02-21-2023 Glucose [Mass/Vol] 144 mg/dL High 80-116 [facility] Comment on above: Performed By: #### V ANC R, MG, PHOS, CH8 #### [facility] [address], [place], Glucose [Mass/Vol] 144 mg/dL High 80 - 116 mg/dL [facility] Interpretation and review of laboratory results Abnormal [facility] MAGNESIUMon 02-21-2023 Magnesium [Mass/Vol] 1.9 mg/dL Normal 1.6-2.8 [facility] Comment on above: Performed By: #### C H8, MG, PHOS #### [facility] [address], [place], Magnesium [Mass/Vol] 1.9 mg/dL 1.6 - 2.8 mg/dL [facility] No Panel Informationon 02-21 Interpretation and review of laboratory results Normal [facility] PHOSPHORUSon 02-21-2023 Phosphate [Mass/Vol] 2.3 mg/dL Normal 2.3-4.2 [facility] Comment on above: Performed By: #### C H8, MG, PHOS #### [facility] [address] [place], [address] Phosphate [Mass/Vol] 2.3 mg/dL 2.3 - 4.2 mg/dL [facility] 02-21-2023 Recycling Specialist Authentication Interface Message Text Upper Extremities Venous Duplex [address] [place], [place] [address] Status:Open Demographics Patient name: LUANNE Leung Gender: Male Date of : 1950 Age: 72 year(s) Procedure Information Procedure date: 02/21/2023 2:15 PM Procedure type: Vascular Proc. sub type: Veins, Upper Extremities Veins, LIMITED DUPLEX VEIN SCAN UE Accession no: [id number] Patient status: Routine Study location: Portable Technical quality: Poor visualization Limitation reason: Poor acoustical window Procedure Staff Referring Physician: SUKHWINDER BRIAN Senior Fire Protection Engineer: Alex Castañeda RVT Interpreting physician: NATAN Ceja MD Indications Pain, edema, discoloration. Risk Factors Additional comments: No significant history Page 1/2 LUANNE Leung 1950 [id number] 02/21/2023 2:15 PM Upper Extremities Venous Duplex [...] extremity and internal jugular vein. Page 2/2 LUANNE Leung 1950 [id number] 02/21/2023 2:15 PM Invalid Interpretation Code [facility] Progress Noteson 02-21-2023 Recycling Specialist Authentication Interface Message Text Preliminary Vascular Lab Report Duplex Left Upper Extremity Vein Scan No evidence deep vein thrombus left upper extremity, official to follow report to follow. Masoud Castañeda RVKimberly Normal [facility] Recycling Specialist Authentication Interface Message Text Pt is rec for SNF Pt was denied from [facility] due to no available bed. Ruben will like updates Friday before deciding to clinically accept. Pt is still pending med readiness Pt will not need precert SW will continue to follow Aj ANGELAA,BUSINESS INFO CONSULTANT Normal [facility] Recycling Specialist Authentication Interface Message Text At 19:40 patient [...] baseline. Will continue to monitor. Normal [facility] URINALYSIS WITH REFLEX CULTU RE PERFORMABLEon 02-21-2023 Glucose Ql (U) Negative Normal Negative [facility] Comment on above: Order Comment: A [...] Performed By: #### u rinalysiswcul ####[facility] [id number] [place] [address], Protein (U) [Mass/Vol] 30 mg/dL Abnormal Negative [facility] Comment on above: Order Comment: A [...] Performed By: #### u rinalysiswcul ####S PATHOLOGY [id number] [place], [place], U APPEAR Clear Normal Clear [facility] Comment on above: Order Comment: A [...] Performed By: #### u rinalysiswcul ####S PATHOLOGY [id number] [place], [place] BILI Negative Normal Negative [facility] Comment on above: Order Comment: A [...] Performed By: #### u rinalysiswcul ####S PATHOLOGY [id number] [place], [place] BLOOD Negative Normal Negative [facility] Comment on above: Order Comment: A [...] Performed By: #### u rinalysiswcul ####S PATHOLOGY [id number] [place], [place] COLOR Yellow Normal Colorless [facility] Comment on above: Order Comment: A [...] Performed By: #### u rinalysiswcul ####S PATHOLOGY [id number] [place], [place] KETONE Negative Normal Negative [facility] Comment on above: Order Comment: A [...] Performed By: #### u rinalysiswcul ####S PATHOLOGY [id number] [place], [place] LEUK Negative Normal Negative [facility] Comment on above: Order Comment: A [...] Performed By: #### u rinalysiswcul ####S PATHOLOGY [id number] [place], [place] MUCOUS Present Normal [facility] Comment on above: Order Comment: A [...] around 50%) Performed By: #### u rinalysiswcul ####[facility] PATHOLOGY [id number] [place], [place] NITRITE Negative Normal Negative [facility] Comment on above: Order Comment: A [...] Performed By: #### u rinalysiswcul ####S PATHOLOGY [id number] [place], [place] PH 6.5 Normal 5.0-8.0 [facility] Comment on above: Order Comment: A [...] Performed By: #### u rinalysiswcul ####S PATHOLOGY [id number] [place], [place] RBC 3-5 Abnormal 0-2 [facility] Comment on above: Order Comment: A [...] Performed By: #### u rinalysiswcul ####S PATHOLOGY [id number] [place], [place], [place] SG 1.026 Normal <=1.030 [facility] Comment on above: Order Comment: A [...] Performed By: #### u rinalysiswcul ####S PATHOLOGY [id number] [place], [place] UROBILI 2.0 mg/dL Abnormal Negative [facility] Comment on above: Order Comment: A [...] Performed By: #### u rinalysiswcul ####[facility] [id number] [place], [place] WBC 3-5 Abnormal 0-2 [facility] Comment on above: Order Comment: A [...] Performed By: #### u rinalysiswcul ####[facility] [id number] [place], BASIC METABOLIC PANELon 12-2 Anion gap [Moles/Vol] 12 mmol/L Normal 10-20 [facility] Comment on above: Performed By: #### C H8, MG, PHOS #### [facility] [address] [place], [place], Calcium [Mass/Vol] 7.5 mg/dL Low 8.6-10.3 [facility] Comment on above: Result Comment: Note updated reference ranges. Performed By: #### C H8, MG, PHOS #### [facility] [address] [place], [place], Chloride [Moles/Vol] 99 mmol/L Normal 98-107 [facility] Comment on above: Result Comment: Note updated reference ranges. Performed By: #### Vijaya H8 MG, PHOS #### [facility] [address] [place], [place], CO2 [Moles/Vol] 29 mmol/L Normal 21-31 [facility] Comment on above: Result Comment: Note updated reference ranges. Performed By: #### Vijaya H8 MG, PHOS #### [facility] [address] [place], [place], Creatinine [Mass/Vol] 0.81 mg/dL Normal 0.70-1.30 [facility] Comment on above: Result Comment: Note updated reference ranges. Performed By: #### Vijaya H8 MG, PHOS #### [facility] [address] [place], [place], ESTIMATED GFR (CKD-EPI) 93 mL/min/1.73sqm Normal >=60 [facility] Comment on above: Result Comment: 2020 [...] Inclusion of Race in Diagnosing Kidney Disease. [place] Journal of Kidney Diseases 2021;79(2):268-88.e1. 2. N Engl J Med 2020 Vol. 385 Issue 19 Pages 0487-7144 Performed By: #### Vijaya H8 MG, PHOS #### [facility] [address] [place], [place], Glucose [Mass/Vol] 126 mg/dL High 74-109 [facility] Comment on above: Performed By: #### Vijaya HMatt MG, PHOS #### [facility] [address] [place], [place], Potassium [Moles/Vol] 3.3 mmol/L Low 3.5-5.0 [facility] Comment on above: Result Comment: Note updated reference ranges. Note updated reference ranges. Performed By: #### Vijaya H8, MG, PHOS #### [facility] [address] [place] [address], Sodium [Moles/Vol] 137 mmol/L Normal 136-145 [facility] Comment on above: Result Comment: Note updated reference ranges. Performed By: #### C H8, MG, PHOS #### [facility] [address] [place] [address], Urea nitrogen [Mass/Vol] 26 mg/dL High 7-25 [facility] Comment on above: Result Comment: Note updated reference ranges. Performed By: #### C H8, MG, PHOS #### [facility] [address] [place] [address], Anion gap [Moles/Vol] 10 mmol/L Normal 10-20 [facility] Comment on above: Performed By: #### C H8, MG, PHOS #### [facility] [address] [place] [address], Calcium [Mass/Vol] 7.9 mg/dL Low 8.6-10.3 [facility] Comment on above: Result Comment: Note updated reference ranges. Performed By: #### C H8, MG, PHOS #### [facility] [address] [place] [address], Chloride [Moles/Vol] 102 mmol/L Normal 98-107 [facility] Comment on above: Result Comment: Note updated reference ranges. Performed By: #### C H8, MG, PHOS #### [facility] [address] [place] [address], CO2 [Moles/Vol] 30 mmol/L Normal 21-31 [facility] Comment on above: Result Comment: Note updated reference ranges. Performed By: #### C H8, MG, PHOS #### [facility] [address] [place] [address], Creatinine [Mass/Vol] 0.79 mg/dL Normal 0.70-1.30 [facility] Comment on above: Result Comment: Note updated reference ranges. Performed By: #### C H8, MG, PHOS #### [facility] [address] [place] [address], ESTIMATED GFR (CKD-EPI) 93 mL/min/1.73sqm Normal >=60 [facility] Comment on above: Result Comment: 2020 [...] Inclusion of Race in Diagnosing Kidney Disease. [place] Journal of Kidney Diseases 202;79(2):268-88.e1. 2. N Engl J Med 1 Vol. 385 Issue 19 Pages 6260-6425 Performed By: #### C H8, MG, PHOS #### [facility] [address] [place] [address], Glucose [Mass/Vol] 139 mg/dL High 74-109 [facility] Comment on above: Performed By: #### C H8, MG, PHOS #### [facility] [address] [place] [address], Potassium [Moles/Vol] 3.7 mmol/L Normal 3.5-5.0 [facility] Comment on above: Result Comment: Note updated reference ranges. Note updated reference ranges. Performed By: #### C H8, MG, PHOS #### [facility] [address] [place], [place], Sodium [Moles/Vol] 138 mmol/L Normal 136-145 [facility] Comment on above: Result Comment: Note updated reference ranges. Performed By: #### C H8, MG, PHOS #### [facility] [address] [place], [place], Urea nitrogen [Mass/Vol] 23 mg/dL Normal 7-25 [facility] Comment on above: Result Comment: Note updated reference ranges. Performed By: #### C H8, MG, PHOS #### [facility] [address] [place] [address], Basic metabolic 2000 panelon 02-20-2023 Anion gap [...] 126 mg/dL High 74 - 109 mg/dL [facility] Interpretation and review of laboratory results Abnormal [...] 139 mg/dL High 74 - 109 mg/dL [facility] Potassium [Moles/Vol] 3.7 mmol/L 3.5 - 5.0 [...] [facility] RBC (Bld) [#/Vol] 2.53 10*6/uL Low [facility] WBC (Bld) [#/Vol] 8.7 10*3/uL 4.5 - 11.5 K/uL [facility] COMPLETE BLOOD COUNTon 02-20 Erythrocyte distribution width (RBC) [Ratio] 14.7 % High 11.5-14.5 [facility] Comment on above: Performed By: #### V ANC R, MG, PHOS, CH8 #### [facility] [address] [place] [address], Hematocrit (Bld) [Volume fraction] 23.3 % Low 41.0-53.0 [facility] Comment on above: Performed By: #### V ANC R, MG, PHOS, CH8 #### [facility] [address] [place] [address], Hemoglobin (Bld) [Mass/Vol] 7.7 g/dL Low 13.9-16.3 [facility] Comment on above: Performed By: #### V ANC R, MG, PHOS, CH8 #### [facility] [address] [place] [address], MCH (RBC) [Entitic mass] 30.2 pg Normal 26.0-34.0 [facility] Comment on above: Performed By: #### V ANC R, MG, PHOS, CH8 #### [facility] [address] [place] [address], MCHC (RBC) [Mass/Vol] 33.2 g/dL Normal 32.0-35.9 [facility] Comment on above: Performed By: #### V ANC R, MG, PHOS, CH8 #### [facility] [address] [place] [address], MCV (RBC) [Entitic vol] 91 fL Normal 80-100 [facility] Comment on above: Performed By: #### V ANC R, MG, PHOS, CH8 #### [facility] [address] [place] [address], Platelet mean volume (Bld) [Entitic vol] 8.5 fL Normal 7.5-11.2 [facility] Comment on above: Performed By: #### V ANC R, MG, PHOS, CH8 #### [facility] [address] [place] [address], Platelets (Bld) [#/Vol] 192 10*3/uL Normal 150-400 [facility] Comment on above: Performed By: #### V ANC R, MG, PHOS, CH8 #### [facility] [address] [place] [address], RBC (Bld) [#/Vol] 2.56 10*6/uL Low 4.50-5.90 [facility] Comment on above: Performed By: #### V ANC R, MG, PHOS, CH8 #### [facility] [address] [place] [address], WBC (Bld) [#/Vol] 9.1 10*3/uL Normal 4.5-11.5 [facility] Comment on above: Performed By: #### V ANC R, MG, PHOS, CH8 #### [facility] [address] [place] [address], Erythrocyte distribution width (RBC) [Ratio] 14.4 % Normal 11.5-14.5 [facility] Comment on above: Performed By: #### Vijaya HMatt, MG, PHOS #### [facility] [address] [place] [address], Hematocrit (Bld) [Volume fraction] 22.8 % Low 41.0-53.0 [facility] Comment on above: Performed By: #### Vijaya HMatt, MG, PHOS #### [facility] [address] [place] [address], Hemoglobin (Bld) [Mass/Vol] 7.8 g/dL Low 13.9-16.3 [facility] Comment on above: Performed By: #### C H8, MG, PHOS #### [facility] [address] [place] [address], MCH (RBC) [Entitic mass] 31.0 pg Normal 26.0-34.0 [facility] Comment on above: Performed By: #### MG Pauline, PHOS #### [facility] [address] [place] [address], MCHC (RBC) [Mass/Vol] 34.4 g/dL Normal 32.0-35.9 [facility] Comment on above: Performed By: #### MG Pauline, PHOS #### [facility] [address], [place], MCV (RBC) [Entitic vol] 90 fL Normal 80-100 [facility] Comment on above: Performed By: #### MG Pauline, PHOS #### [facility] [address], [place], Platelet mean volume (Bld) [Entitic vol] 9.0 fL Normal 7.5-11.2 [facility] Comment on above: Performed By: #### MG Pauline, PHOS #### S [facility] [address] [place] [address], Platelets (Bld) [#/Vol] 159 10*3/uL Normal 150-400 [facility] Comment on above: Performed By: #### MG Pauline, PHOS #### [facility] [address], [place], RBC (Bld) [#/Vol] 2.53 10*6/uL Low 4.50-5.90 [facility] Comment on above: Performed By: #### MG Pauline, PHOS #### S [facility] [address] [place] [address], WBC (Bld) [#/Vol] 8.7 10*3/uL Normal 4.5-11.5 [facility] Comment on above: Performed By: #### MG Pauline, PHOS #### S [facility] [address] [place] [address], COVID/INFLUENZAon 02-20-2023 INFLUENZA A Not detected Normal Not Detected [facility] Comment on above: Order Comment: Not D etected results are indicative of the absence of SARS-CoV-2 in the specimen submitted for testing. False negative results are possible based on the timing and quality of specimen submitted for testing. Result Comment: This assay was performed using [employer] RTPCR technology. Performed By: #### V MG MURPHY PHOS, CH8 #### [facility] [address] [place] [address], INFLUENZA B Not detected Normal Not Detected [facility] Comment on above: Order Comment: Not D etected results are indicative of the absence of SARS-CoV-2 in the specimen submitted for testing. False negative results are possible based on the timing and quality of specimen submitted for testing. Result Comment: This assay was performed using [employer] RTPCR technology. Performed By: #### V MG MURPHY PHOS, CH8 #### [facility] [address] [place] [address], SARS-CoV-2 (COVID-19) RNA FABI+probe Ql (Unsp spec) Not detected Normal Not Detected [facility] Comment on above: Order Comment: Not D etected results are indicative of the absence of SARS-CoV-2 in the specimen submitted for testing. False negative results are possible based on the timing and quality of specimen submitted for testing. Result Comment: This assay was performed using [employer] RTPCR technology. Performed By: #### V MG MURPHY PHOS, CH8 #### [facility] [address] [place] [address], COVID/INFLUENZAOrdered By: Prisca Vogel on 02-20-2023 FLUAV RNA FABI+probe Ql (Nph) Not detected Not [facility]ed [facility] FLU[facility] RNA FABI+probe Ql (Nph) Not detected Not Detected [facility] Interpretation and review of laboratory results Normal [facility] SARS-CoV-2 (COVID-19) RNA FABI+probe Ql (Unsp spec) Not detected Not Detected [facility] Care Plan Noteon 02-20-2023 Recycling Specialist Authentication Interface Message Text Called to bedside to assess for left arm swelling. Does appear left arm is asymmetrically swollen compared to right. Neurovascularly intact however. Denies chest pain, sob at this time. Will order duplex RUE to r/o dvt. Kevin Barrientos, DO Normal [facility] [email or web address] Authentication Interface Message Text Noticed increased swelling and warmth on Left arm compared to earlier in shift and Right arm. Pt was also unable to be weaned off O2 as well and complains of shortness of breath at times, and cannot tolerate lying flat. Vitals unremarkable otherwise. MD java integration developer notified and will come bedside after trauma. Normal [facility] MAGNESIUMon 02-20-2023 Magnesium [Mass/Vol] 2.0 mg/dL Normal 1.6-2.8 [facility] Comment on above: Performed By: #### MG Pauline, PHOS #### [facility] [address], [place], Magnesium [Mass/Vol] 2.0 mg/dL 1.6 - 2.8 mg/dL [facility] Magnesium [Mass/Vol] 1.9 mg/dL Normal 1.6-2.8 [facility] Comment on above: Performed By: #### MG Pauline, PHOS #### [facility] [address], [place], Interpretation and review of laboratory results Normal [facility] Magnesium [Mass/Vol] 1.9 mg/dL 1.6 - 2.8 mg/dL [facility] No Panel Informationon 02-20 Interpretation and review of laboratory results Normal [facility] Interpretation and review of laboratory results Abnormal [facility] PHOSPHORUSon 02-20-2023 Phosphate [Mass/Vol] 2.8 mg/dL Normal 2.3-4.2 [facility] Comment on above: Performed By: #### MG Pauline, PHOS #### [facility] [address], [place], Phosphate [Mass/Vol] 2.8 mg/dL 2.3 - 4.2 mg/dL [facility] Phosphate [Mass/Vol] 2.2 mg/dL Low 2.3-4.2 [facility] Comment on above: Performed By: #### MG Pauline PHOS ####[facility] [id number] [place], [place], Phosphate [Mass/Vol] 2.2 mg/dL Low 2.3 - 4.2 mg/dL [facility] Progress Noteson 02-20-2023 Recycling Specialist Authentication Interface Message Text [facility] 02/20/2023 Reason for Services: Follow-Up Activity Coordinator attempted to visit with patient for follow up regarding resources and education provided and answer any questions. Patient was asleep at time of visit. Activity Coordinator will attempt to engage with Patient and/or Family the next business day. Jess Henley Main Line: [phone] Normal [facility] Recycling Specialist Authentication Interface Message Text SW/CM aware that patient meets criteria for SNF. Met with Pt on unit to discuss dispo. Patient open and agreeable to SNF placement. CM/SW provided pt the quality and resource use measure data from available post-acute (PAC) providers, that best align with the patient's treatment goals and preferences from the medicare.gov compare site for SNF. [place]ie of Choice was provided to the patient/patient packaging sales representative. Pt want's RAE STROUD [phone] as decision maker for dc planning SW/CM will follow up for choices. Addendum 2:06pm SW called pt's RAE STROUD [phone] she gave the following facility choices [facility] Ms. Stroud has surgery tomorrow, pt's son Anibal Stroud [phone] will be main personal security specialist for the family. SW sent referrals SW will continue to follow Pt will not need precert Aj Marie [facility],BUSINESS INFO CONSULTANT Normal [facility] URINALYSIS WITH REFLEX CULTU RE PERFORMABLEon [...] Protein (U) [Mass/Vol] 30 mg/dL Abnormal Negative [facility] Specific gravity (U) [Rel density] 1.026 NINF - 1.030 [facility] Urobilinogen Qn (U) 2.0 mg/dL Abnormal Negative [facility] WBC (U) [#/Vol] 3-5 Abnormal [facility] th WBC LM.HPF (Urine sed) [#/Area] 3-5 Abnormal [facility] ANTI FXA-LMW HEPARINon 02-19 ANTI FXA-LMW HEPARIN ASSAY 0.32 IU/mL Normal [facility] Comment on above: Order Comment: The r ecommended therapeutic range for treatment of thrombosis with Low Molecular Weight Heparin is 0.5 - 1.0 IU/mLThe recommended range for VTE prophylaxis with Low Molecular Weight Heparin is 0.2 - 0.4 IU/mL. Performed By: #### MG Carpenter PHOS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 Florentin AND Florentin Left 1 Implanted SCREW 3.5 X 48MM SELF-TAPPING EA1 02.127.148 - [id number] Screw SCREW 3.5 X 48MM SELF-TAPPING EA1 02.127.148 Florentin AND Florentin Left 1 Implanted SCREW 5.0 X 40MM SELF-TAPPING EA1 .231.240 - [id number] Screw SCREW 5.0 X 40MM SELF-TAPPING EA1 .231.240 Florentin AND Florentin Left 1 Implanted SCREW 3.5 X 90MM SELF-TAPPING EA1 02.127.190 - [id number] Screw SCREW 3.5 X 90MM SELF-TAPPING EA1 02.127.190 Florentin AND Florentin Left 3 Implanted SCREW 3.5 X 54MM SELF-TAPPING EA1 02.127.154 - [id number] Screw SCREW 3.5 X 54MM SELF-TAPPING EA1 02.127.154 Florentin AND Florentin Left 1 Implanted SCREW 3.5 X 95MM SELF-TAPPING EA1 02.127.195 - [id number] Screw SCREW 3.5 X 95MM SELF-TAPPING EA1 02.127.195 Florentin AND Florentin Left 1 Implanted SCREW 3.5 X 50MM SELF-TAPPING EA1 150 - [id number] Screw SCREW 3.5 X 50MM SELF-TAPPING EA1 150 Shanika Left 1 Implanted SCREW 3.5 X 52MM SELF-TAPPING EA1 152 - [id number] Screw SCREW 3.5 X 52MM SELF-TAPPING EA1 Shanika Left 1 Implanted INDICATION FOR SURGERY: [...] la (more content not included)... Normal [facility] OR Nursingon 02-18-2023 Recycling Specialist Authentication Interface Message Text Call to peri hernandez in icu to notify of transport out of OR Normal [facility] Recycling Specialist Authentication Interface Message Text Report called to peri hernandez rn Normal The [facility] Recycling Specialist Authentication Interface Message Text Received report from Peri PANDYA 5W ICU Normal [facility] PHOSPHORUSon 02-18-2023 Phosphate [Mass/Vol] 2.0 mg/dL Low 2.3-4.2 [facility] Comment on above: Performed By: #### V ANC R, MG, PHOS, CH8 #### [facility] [address] [place] [address], Phosphate [Mass/Vol] 2.0 mg/dL Low 2.3 - 4.2 mg/dL [facility] PROTHROMBIN TIME AND INRon 1 04-21-2022 INR Coag (PPP) [Relative time] 1.07 {INR} Normal 0.90-1.10 [facility] Comment on above: Performed By: #### C H8, MG, PHOS #### [facility] [address] [place] [address], PT Coag (PPP) [Time] 12.0 s Normal 9.7-12.9 [facility] Comment on above: Performed By: #### C H8, MG, PHOS #### [facility] [address] [place] [address], INR Coag (PPP) [Relative time] 1.07 {INR} 0.90 - 1.10 [facility] Interpretation and review of laboratory results Normal [facility] PT Coag (PPP) [Time] 12.0 s [facility] Procedureson 02-18-2023 Recycling Specialist Authentication Interface Message Text Transthoracic Echocardiographic Report Name: LUANNE GONZALEZ Interpreting KAROLINA Leung Physician: : [id number] Referring RITTER LELO ESCOBEDO Physician: Age: 72 Senior Fire Protection Engineer: Faith Kay RDCS Exam Date: 02/18/2023 Fellow: 08:00 [...] Doctor's order(s) verified. Patient's preferred language is Nigerien . Verbal consent for left heart echo contrast was obtained after explanation of the risks (/10,000 significant and 1/3,000 minor allergic reactions) and benefits (needed enhancement of imaging) were explained. Administration of 1 dose(s) of 1.5 ml of Definity diluted to 8.5 ml of saline was administered by Faith Kay RDCS . Supine HR: 96 bpm [...] 02/18/2023 08:59 AM Invalid Interpretation Code [facility] Progress Noteson 02-18-2023 Recycling Specialist Authentication Interface Message Text 72M s/p ORIF [...] Ortho Team A: Seamus (Connie) Stefanie, PGY3: [phone] John Camp, PGY1: [phone] Ortho Team B: Kassie Coles, PGY2: [phone] Adrien Peña, PGY2: [phone] Mehran Warner, PGY4 [phone] Ortho Elective Team: Justice Mccann, PGY3: [phone] Yo Champion, PGY2: [phone] Ortho Hand Team: Scot Dean, PGY4: [phone] Douglas Worthington, PGY4: [phone] After 5pm, weekends, and holidays please page Ortho/On-call consult pager, [phone] Normal [facility] Recycling Specialist Authentication Interface Message Text [facility] 02/18/2023 Services Provide For: Patient/Family Referred By: Inpatient trauma list Services Provided by: Specialty Food Products Supervisor Reason for Services: Initial Visit Immediate Needs: None identified Activity Coordinator educated patient and visitors at bedside on Trauma Recovery Center and Resources. In addition, informed of [facility] Resources available when and where appropriate. Activity Coordinator will remain available for support. ? Jess Henley Main Line: [phone] Normal [facility] Recycling Specialist Authentication Interface Message Text -------- GENERAL INFORMATION [...] R rib 9-10 fracture was seen at [facility].The patient had 5 packs of RBCs, 3 packs of FFP, 1 platelet, TXA and Vit K from when he arrived to [facility] and in transit. Patient takes coumadin. Hospital Course: 02/16-became hypotensive, concern for aspiration PNA. Central line, art line placed. On dual pressors. 02/17-weaned off pressors. right of way man attempted bedside echo. 24-hour Events: Patient weaned [...] for OR Respiratory: Hx of COPD -respiratory classification clerk protocol -encourage IS -goal O2 >90% -home [...] f (more content not included)... Normal [facility] Recycling Specialist Authentication Interface Message Text Pharmacokinetic Dosing Service - VANCOMYCIN Name: Fredrick Stroud Age:[age] year old Gender: male Ht: 5' 6 Wt: 119.5 kg Indication: Pneumonia Desired Ranges: AUC24 400-600 Day of therapy: 02/18/23 KOJEDEL 03: Pneumonia; Renal function: stable; Current regimen: 1.75g iv q12hrs, predicted AUC on regimen: 246; New regimen: 1.75g iv q12hrs, New AUC on regimen: 492; Next level Due:24-36hrs, Level not ordered [facility] Pharmacokinetics Note Drug: Vancomycin Pharmacokinetic target: AUC24 (range) 400-600 mg/L.hr Current regimen: 1750 mg IV every 24 hours Fredrick Stroud is a(n) 72 years old male receiving Vancomycin 1750 mg IV every 24 hours for Pneumonia Recent measured serum creatinine values: 02/18/2023 04:15 0.62 mg/dL 02/17/2023 00:25 1 mg/dL 02/16/2023 16:59 1.38 mg/dL Assessment: Analysis of the most recent level(s) using Narrative [employer] gives the following patient-specific pharmacokinetic parameters: CL: [...] creatinine clearance: 127.3 mL/min (A) Culture(s): N/A [facility] Pharmacy Dosing Consult The medication regimen has been updated per consult agreement procedures. Pharmacy will post notes for levels upon return and for dose changes. Normal [facility] RED BLOOD CELL COMPONENTon 1 04-21-2022 BB ORDER ITEM Product status info to follow Normal [employer] [facility] Comment on above: Performed By: #### MG Carpenter PHOS #### [facility] [address] [place] [address], [id number] BB Order Item Product status info to follow [facility] RED BLOOD CELL UNIT STATUSon 02-18-2023 Blood product unit Nom (BPU) [ID] [id number] [facility] Blood product unit Nom (BPU) [ID] [id number] [facility] Blood product unit Nom (BPU) [ID] [id number] [facility] Blood product unit Nom (BPU) [ID] [id number] [facility] BLOOD PRODUCT CODE [id number] Normal [facility] Comment on above: Performed By: #### V ANC R, MG, PHOS, CH8 #### [facility] [address] [place] [address], Performed By: #### C H8, MG, PHOS #### [facility] PATHOLOGY LABORATORY [address] [place] [address], BLOOD PRODUCT DESCRIPTION Red Blood Cells Normal [facility] Comment on above: Performed By: #### V ANC R, MG, PHOS, CH8 #### [facility] [address] [place] [address], Performed By: #### C H8, MG, PHOS #### [facility] [address] [place] [address], BLOOD PRODUCT STATUS Returned to Bld Bnk Normal [facility] Comment on above: Performed By: #### V ANC R, MG, PHOS, CH8 #### [facility] [address] [place] [address], Performed By: #### C H8, MG, PHOS #### [facility] [address] [place] [address], BLOOD PRODUCT UNIT INFO [id number] Normal [facility] Comment on above: Performed By: #### V ANC R, MG, PHOS, CH8 #### [facility] [address] [place] [address], BLOOD PRODUCT UNIT INFO [id number] Normal [facility] Comment on above: Performed By: #### V ANC R, MG, PHOS, CH8 #### [facility] [address] [place] [address], BLOOD PRODUCT UNIT INFO [id number] Normal [facility] Comment on above: Performed By: #### V ANC R, MG, PHOS, CH8 #### [facility] [address] [place] [address], BLOOD PRODUCT UNIT INFO [id number] Normal [facility] Comment on above: Performed By: #### C H8, MG, PHOS #### [facility] [address] [place] [address], BLOOD PRODUCT UNIT TYPE 5100 Normal [facility] Comment on above: Result Comment: O Po s Performed By: #### V ANC R, MG, PHOS, CH8 #### [facility] [address] [place] [address], Performed By: #### Vijaya H8, MG, PHOS #### [facility] [address], [place], CROSSMATCH INTERPRETATION Compatible (E) Normal [facility] Comment on above: Performed By: #### V ANC R, MG, PHOS, CH8 #### [facility] [address], [place], Performed By: #### Vijaya HMatt, MG, PHOS #### [facility] [address] [place] [address], Transfer Documentson 023 Transfer Documents [id number] 1.00TIFF Normal [facility] VANCOMYCIN RANDOMon 02-19-20 23 VANC R 8.2 ug/mL Normal 5.0-40.0 [facility] Comment on above: Performed By: #### V ANC R, MG, PHOS, CH8 #### [facility] [address] [place] [address], Vancomycin [Mass/Vol] 8.2 ug/mL 5.0 - 40.0 ug/mL [facility] BASIC METABOLIC PANELon 01-25 Anion gap [Moles/Vol] 11 mmol/L Normal 10-20 [facility] Comment on above: Performed By: #### Vijaya H8, MG, PHOS #### [facility] [address], [place], Calcium [Mass/Vol] 8.3 mg/dL Low 8.6-10.3 [facility] Comment on above: Result Comment: Note updated reference ranges. Performed By: #### Vijaya H8, MG, PHOS #### [facility] [address], [place], Chloride [Moles/Vol] 105 mmol/L Normal 98-107 [facility] Comment on above: Result Comment: Note updated reference ranges. Performed By: #### Vijaya H8 MG, PHOS #### [facility] [address] [place] [address], CO2 [Moles/Vol] 24 mmol/L Normal 21-31 [facility] Comment on above: Result Comment: Note updated reference ranges. Performed By: #### C H8 MG, PHOS #### [facility] [address], [place], Creatinine [Mass/Vol] 1.00 mg/dL Normal 0.70-1.30 [facility] Comment on above: Result Comment: Note updated reference ranges. Performed By: #### Vijaya H8 MG, PHOS #### [facility] [address], [place], ESTIMATED GFR (CKD-EPI) 79 mL/min/1.73sqm Normal >=60 [facility] Comment on above: Result Comment: 2020 [...] Inclusion of Race in Diagnosing Kidney Disease. [place] Journal of Kidney Diseases 2021;79(2):268-88.e1. 2. N Engl J Med 1 Vol. 385 Issue 19 Pages 1757-8830 Performed By: #### Vijaya H8, MG, PHOS #### [facility] [address], [place], Glucose [Mass/Vol] 189 mg/dL High 74-109 [facility] Comment on above: Performed By: #### Vijaya H8 MG, PHOS #### [facility] [address], [place], Potassium [Moles/Vol] 4.0 mmol/L Normal 3.5-5.0 [facility] Comment on above: Result Comment: Note updated reference ranges. Note updated reference ranges. Performed By: #### Vijaya HMG Matt PHOS #### S PATHOLOGY LABORATORY [address] [place] [address], Sodium [Moles/Vol] 136 mmol/L Normal 136-145 [facility] Comment on above: Result Comment: Note updated reference ranges. Performed By: #### Vijaya HMG Matt PHOS #### S PATHOLOGY LABORATORY [address] [place] [address], Urea nitrogen [Mass/Vol] 36 mg/dL High 7-25 [facility] Comment on above: Result Comment: Note updated reference ranges. Performed By: #### MG Pauline PHOS #### S PATHOLOGY LABORATORY [address] [place] [address], BLOOD GAS, ARTERIALon 2022 CR GEOVANNI -1.0 mmol/L Normal -2.0-3.0 [facility] Comment on above: Performed By: #### C R BGA ####[facility] PATHOLOGY [id number] [place] [address], CR PCO2 38.6 mm Hg Normal 35.0-45.0 [facility] Comment on above: Performed By: #### C R BGA ####[facility] PATHOLOGY [id number] [place] [address], CR PHA 7.395 Normal 7.350-7.450 [facility] Comment on above: Performed By: #### C R BGA ####S PATHOLOGY [id number] [place] [address], CR PO2 81 mm Hg Normal 80-100 [facility] Comment on above: Performed By: #### C R BGA ####S PATHOLOGY [id number] [place] [address], FIO2 (CATEGORY) 2 LPM Normal [facility] Comment on above: Performed By: #### C R BGA ####[facility] PATHOLOGY [id number] [place] [address], Performed By: #### V ANC R, MG PHOS, CH8 #### S PATHOLOGY LABORATORY [address] [place] [address], HCO3 (Bld) [Moles/Vol] 23 mmol/L Normal 21-28 [facility] Comment on above: Performed By: #### C R BGA ####S PATHOLOGY [id number] [place], [place], MODE Nasal Canula Normal [facility] Comment on above: Performed By: #### C R BGA ####S PATHOLOGY [id number] [place], Performed By: #### V ANC R, MG, PHOS, CH8 #### S PATHOLOGY LABORATORY [address] [place] [address], Oxygen saturation in Blood 96.1 % Normal 95.0-99.0 [facility] Comment on above: Performed By: #### C R BGA ####[facility] PATHOLOGY [id number] [place] [address], BLOOD GAS, VENOUSon 02-17- 23 CR ABEV -0.3 mmol/L Normal -2.0-3.0 [facility] Comment on above: Performed By: #### V ANC R, MG, PHOS, CH8 #### S PATHOLOGY LABORATORY [address] [place] [address], CR HCO3V 25 mmol/L Normal 21-28 [facility] Comment on above: Performed By: #### V ANC R, MG, PHOS, CH8 #### S PATHOLOGY LABORATORY [address] [place] [address], CR PHV 7.367 Normal 7.320-7.430 [facility] Comment on above: Performed By: #### V ANC R, MG, PHOS, CH8 #### S PATHOLOGY LABORATORY [address] [place] [address], CR PVCO2 43.8 mm Hg Normal 41.0-51.0 [facility] Comment on above: Performed By: #### V ANC R, MG, PHOS, CH8 #### S PATHOLOGY LABORATORY [address] [place] [address], CR PVO2 36 mm Hg Low 38-44 The [facility] Comment on above: Performed By: #### V ANC R, MG, PHOS, CH8 #### [facility] [address], [place], Oxygen saturation in Blood 67.1 % Low 70.0-80.0 [facility] Comment on above: Performed By: #### V ANC R, MG, PHOS, CH8 #### [facility] [address], [place], Basic metabolic 2000 panelon 02-17-2023 Anion gap [Moles/Vol] 11 mmol/L 10 - 20 [facility] Calcium [Mass/Vol] 8.3 mg/dL Low 8.6 - 10. 3 mg/dL [facility] Chloride [Moles/Vol] 105 mmol/L 98 - 107 mmol/L [facility] CO2 [Moles/Vol] 24 mmol/L 21 - 31 mmol/L [facility] Creatinine [Mass/Vol] 1.00 mg/dL 0.70 - 1.30 mg/dL [facility] GFR/1.73 sq M.predicted CKD-EPI (S/P/Bld) [Vol rate/Area] 79 - PINF [facility] Glucose [Mass/Vol] 189 mg/dL High 74 - 109 mg/dL [facility] Interpretation and review of laboratory results Abnormal [facility] Potassium [Moles/Vol] 4.0 mmol/L 3.5 - 5.0 mmol/L [facility] Sodium [Moles/Vol] 136 mmol/L 136 - 145 mmol/L [facility] Urea nitrogen [Mass/Vol] 36 mg/dL High 7 - 25 mg/dL [facility] CBC panel Auto (Bld)on 02-17 Erythrocyte distribution width (RBC) [Ratio] 14.9 % High 11.5 - 14.5 % [facility] Hematocrit (Bld) [Volume fraction] 29.5 % Low 41.0 - 53.0 % [facility] Hemoglobin (Bld) [Mass/Vol] 10.1 g/dL Low 13.9 - 16.3 g/dL [facility] Interpretation and review of laboratory results Abnormal [facility] MCH (RBC) [Entitic mass] 30.3 pg 26.0 - 34.0 pg [facility] MCHC (RBC) [Mass/Vol] 34.2 g/dL 32.0 - 35.9 g/dL [facility] MCV (RBC) [Entitic vol] 89 fL 80 - 100 fL [facility] Platelet mean volume (Bld) [Entitic vol] 8.6 fL 7.5 - 11.2 fL [facility] Platelets (Bld) [#/Vol] 145 10*3/uL Low 150 - 400 K/uL [facility] RBC (Bld) [#/Vol] 3.33 10*6/uL Low [facility] WBC (Bld[facility] [#/Vol] 9.9 10*3/uL 4.5 - 11.5 K/uL M [facility] COMPLETE BLOOD COUNTon 02-17 Erythrocyte distribution width (RBC) [Ratio] 14.9 % High 11.5-14.5 [facility] Comment on above: Performed By: #### Vijaya Mendoza MG, PHOS #### S PATHOLOGY LABORATORY [address] [place] [address], Hematocrit (Bld) [Volume fraction] 29.5 % Low 41.0-53.0 [facility] Comment on above: Performed By: #### Vijaya Mendoza MG, PHOS #### [facility] [address] [place] [address], Hemoglobin (Bld) [Mass/Vol] 10.1 g/dL Low 13.9-16.3 [facility] Comment on above: Performed By: #### Vijaya Mendoza MG, PHOS #### [facility] [address] [place] [address], MCH (RBC) [Entitic mass] 30.3 pg Normal 26.0-34.0 [facility] Comment on above: Performed By: #### Vijaya HMatt MG, PHOS #### [facility] [address] [place] [address], MCHC (RBC) [Mass/Vol] 34.2 g/dL Normal 32.0-35.9 [facility] Comment on above: Performed By: #### Vijaya HMatt MG, PHOS #### [facility] [address] [place] [address], MCV (RBC) [Entitic vol] 89 fL Normal 80-100 [facility] Comment on above: Performed By: #### MG Pauline, PHOS #### [facility] [address], [place], Platelet mean volume (Bld) [Entitic vol] 8.6 fL Normal 7.5-11.2 [facility] Comment on above: Performed By: #### MG Pauline, PHOS #### [facility] [address], [place], Platelets (Bld) [#/Vol] 145 10*3/uL Low 150-400 [facility] Comment on above: Performed By: #### MG Pauline, PHOS #### [facility] [address], RBC (Bld) [#/Vol] 3.33 10*6/uL Low 4.50-5.90 [facility] Comment on above: Performed By: #### MG Pauline, PHOS #### [facility] [address], [place], WBC (Bld) [#/Vol] 9.9 10*3/uL Normal 4.5-11.5 [facility] Comment on above: Performed By: #### MG Pauline, PHOS #### [facility] [address], [place], Care Plan Noteon 02-17-2023 Recycling Specialist Authentication Interface Message Text Problem: Routine Care: [...] will be met Outcome: Progressing Normal [facility] Consultson 02-17-2023 Recycling Specialist Authentication Interface Message Text PHYSICAL/OCCUPATIONAL THERAPY Attempted to see patient for PT/OT evals this date. Patient scheduled for OR this date for fixation of left femur fracture. Will follow up post-operative as able and medically appropriate. Sylvia Alcantara PT Normal [facility] GLUCOSE, FINGERSTICK-IN OFFI CEon 02-17-2023 Glucose [Mass/Vol] 140 mg/dL High 80-116 [facility] Comment on above: Performed By: #### 8 2948 #### NURSING GLUCOSE PROGRAM [address] [place], [address] Glucose [Mass/Vol] 140 mg/dL High 80 - 116 mg/dL [facility] Interpretation and review of laboratory results Abnormal [facility] MAGNESIUMon 02-17-2023 Magnesium [Mass/Vol] 1.7 mg/dL Normal 1.6-2.8 [facility] Comment on above: Performed By: #### C H8, MG, PHOS #### [facility] [address] [place], [id number] Magnesium [Mass/Vol] 1.7 mg/dL 1.6 - 2.8 mg/dL [facility] MRSA SCREENOrdered By: Shari Ceja on 02-17-2023 Interpretation and review of laboratory results Normal [facility] MRSA isol Org specific cx Ql (Nose) No methicillin resistant Staphylococcus aureus isolated. No methicillin resistant Staphylococcus aureus isolated. [facility] No Panel Informationon 02-17 Interpretation and review of laboratory results Normal [facility] PHOSPHORUSon 02-17-2023 Phosphate [Mass/Vol] 2.6 mg/dL Normal 2.3-4.2 [facility] Comment on above: Performed By: #### C MG Kelly PHOVan #### [facility] [address] [place] [address], [id number] Phosphate [Mass/Vol] 2.6 mg/dL 2.3 - 4.2 mg/dL [facility] Noteson 02-17-2023 Recycling Specialist Authentication Interface Message Text -------- GENERAL INFORMATION [...] R rib 9-10 fracture was seen at [facility].The patient had 5 packs of RBCs, 3 packs of FFP, 1 platelet, TXA and Vit K from when he arrived to [facility] and in transit. Patient takes coumadin. Hospital [...] Echo pending Respiratory: Hx of COPD -respiratory classification clerk protocol -enc (more content not included)... Normal [facility] XR CHEST AP OR PA 1 [...] is also seen. MACRO: None Normal [facility] ABO RH TYPEon 02-16-2023 ABO and Rh group Nom (Bld) Blood group O Rh(D) positive Normal [facility] Comment on above: Performed By: #### A BORVale ####[facility] PATHOLOGY [id number] [place], [place], BASIC METABOLIC PANELon 01-25 Anion gap [Moles/Vol] 14 mmol/L Normal 10-20 [facility] Comment on above: Performed By: #### C H8, MG, PHOS #### [facility] [address], [place], Calcium [Mass/Vol] 8.3 mg/dL Low 8.6-10.3 [facility] Comment on above: Result Comment: Note updated reference ranges. Performed By: #### C H8, MG, PHOS #### [facility] [address], [place], Chloride [Moles/Vol] 109 mmol/L High 98-107 [facility] Comment on above: Result Comment: Note updated reference ranges. Performed By: #### C H8, MG, PHOS #### [facility] [address], [place], CO2 [Moles/Vol] 20 mmol/L Low 21-31 The [facility] Comment on above: Result Comment: Note updated reference ranges. Performed By: #### C H8, MG, PHOS #### [facility] [address], [place], Creatinine [Mass/Vol] 1.38 mg/dL High 0.70-1.30 [facility] Comment on above: Result Comment: Note updated reference ranges. Performed By: #### C H8, MG, PHOS #### [facility] [address], [place], ESTIMATED GFR (CKD-EPI) 54 mL/min/1.73sqm Low >=60 [facility] Comment on above: Result Comment: 2020 [...] Inclusion of Race in Diagnosing Kidney Disease. [place] Journal of Kidney Diseases 2021;79(2):268-88.e1. 2. N Engl J Med 2020 Vol. 385 Issue 19 Pages 4496-7677 Performed By: #### C H8, MG, PHOS #### [facility] [address], [place], Glucose [Mass/Vol] 171 mg/dL High 74-109 [facility] Comment on above: Performed By: #### MG Pauline, MIGUEL #### [facility] [address] [place] [address], [phone] Potassium [Moles/Vol] 4.5 mmol/L Normal 3.5-5.0 [facility] Comment on above: Result Comment: Note updated reference ranges. Note updated reference ranges. Performed By: #### MG Pauline, PHOS #### [facility] [address] [place], [address] Sodium [Moles/Vol] 138 mmol/L Normal 136-145 [facility] Comment on above: Result Comment: Note updated reference ranges. Performed By: #### MG Pauline, MIGUEL #### [facility] [address] [place] [address], [address] Urea nitrogen [Mass/Vol] 38 mg/dL High 7-25 [facility] Comment on above: Result Comment: Note updated reference ranges. Performed By: #### MG Pauline, MIGUEL #### [facility] [address] [place] [address], [phone] Anion gap [Moles/Vol] 13 mmol/L Normal 10-20 [facility] Comment on above: Performed By: #### 8 2948 #### NURSING GLUCOSE PROGRAM [address] [place] [address], [address] Calcium [Mass/Vol] 9.8 mg/dL Normal 8.6-10.3 [facility] Comment on above: Result Comment: Note updated reference ranges. Performed By: #### 8 2948 #### NURSING GLUCOSE PROGRAM [address] [place] [address], [address] Chloride [Moles/Vol] 111 mmol/L High 98-107 [facility] Comment on above: Result Comment: Note updated reference ranges. Performed By: #### 8 2948 #### NURSING GLUCOSE PROGRAM [address] [place] [address], [address] CO2 [Moles/Vol] 25 mmol/L Normal 21-31 [facility] Comment on above: Result Comment: Note updated reference ranges. Performed By: #### 8 2948 #### NURSING GLUCOSE PROGRAM [address] [place], [address] Creatinine [Mass/Vol] 1.12 mg/dL Normal 0.70-1.30 [facility] Comment on above: Result Comment: Note updated reference ranges. Performed By: #### 8 2948 #### NURSING GLUCOSE PROGRAM [address] [place], [address] ESTIMATED GFR (CKD-EPI) 69 mL/min/1.73sqm Normal >=60 [...] Inclusion of Race in Diagnosing Kidney Disease. [place] Journal of Kidney Diseases 2021;79(2):268-88.e1. 2. N Engl J Med 1 Vol. 385 Issue 19 Pages 9345-9640 Performed By: #### 8 2948 #### NURSING GLUCOSE PROGRAM [address] [place], [address] Glucose [Mass/Vol] 130 mg/dL High 74-109 [facility] Comment on above: Performed By: #### 8 2948 #### NURSING GLUCOSE PROGRAM [address] [place], [address] Potassium [Moles/Vol] 5.3 mmol/L High 3.5-5.0 [facility] Comment on above: Result Comment: Note updated reference ranges. Note updated reference ranges. Performed By: #### 8 2948 #### NURSING GLUCOSE PROGRAM [address] [place], [address] Sodium [Moles/Vol] 144 mmol/L Normal 136-145 [facility] Comment on above: Result Comment: Note updated reference ranges. Performed By: #### 8 2948 #### NURSING GLUCOSE PROGRAM [address] [place], [address] Urea nitrogen [Mass/Vol] 27 mg/dL High 7-25 [facility] Comment on above: Result Comment: Note updated reference ranges. Performed By: #### 8 2948 #### [facility] GLUCOSE PROGRAM [address] [place], [address] Anion gap [Moles/Vol] 12 mmol/L Normal 10-20 [facility] Comment on above: Performed By: #### V ANC R, MG, PHOS, CH8 #### [facility] [address] [place] [address], Calcium [Mass/Vol] 10.2 mg/dL Normal 8.6-10.3 [facility] Comment on above: Result Comment: Note updated reference ranges. Performed By: #### V ANC R, MG, PHOS, CH8 #### [facility] [address], [place], Chloride [Moles/Vol] 108 mmol/L High 98-107 [facility] Comment on above: Result Comment: Note updated reference ranges. Performed By: #### V ANC R, MG, PHOS, CH8 #### [facility] [address] [place] [address], CO2 [Moles/Vol] 28 mmol/L Normal 21-31 [facility] Comment on above: Result Comment: Note updated reference ranges. Performed By: #### V ANC R, MG, PHOS, CH8 #### [facility] [address] [place] [address], Creatinine [Mass/Vol] 1.02 mg/dL Normal 0.70-1.30 [facility] Comment on above: Result Comment: Note updated reference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 [id number] #### [facility] [address] [place] [address] POCT PT/INRon 05-14-2022 POCT INR 3.2 High .7-1.2 [facility] Comment on above: Performed By: #### 2 [id number] ####[facility] [address] [place] [address] POCT PT 34.5 second(s) High 8.0-15.0 [facility] Comment on above: Performed By: #### 2 [id number] ####[facility] [address] [place] [address] POCT INR Error Invalid Interpretation Code .7-1.2 [facility] Comment on above: Performed By: #### 2 [id number] #### [facility] [address] [place] [address] POCT PT Strip Error Invalid Interpretation Code 8.0-15.0 [facility] Comment on above: Performed By: #### 2 [id number] #### [facility] [address] [place] [address] Falls Screening (Age 18+)on 05-02-2022 Fall risk assessment a) No falls within the last year -[facility] 600 DO Work Phone: Progress Note-Physicianon Progress [...] stroke: no 4. Serious co-morbid conditions (recent [place], anemia with Hct <30%, CRI with SCr > 1.5, DM): no Score = 1/4 Risk (low = 0, mod = 1-2, high = 3-4): Health Status Allergies: Allergic Reactions (Selected) No Known Medication Allergies, Allergies (1) Active Reaction No Known Medication Allergies None Documented Current medications: (Selected) Prescriptions Prescribed MDI spacer adult: 1 EA, Inhalation, As Directed, 1 EA, Refill(s) 0 [place] 325 mg-5 mg oral tablet: 1 tab(s), [...] spacer adult 1 EA, Inhalation, As Directed [place] 325 mg-5 mg oral tablet 1 tab(s), PRN, Oral, q6hr Ventolin HFA 90 mcg/inh inhalation aerosol with adapter 2 puff(s), PRN, Inhalation, q6hr Coumadin , No qualifying data available Problem list: All Problems HTN (hypertension) / SNOMED CT 2387722737 / Confirmed Class 3 severe obesity with body mass index (BMI) of 40.0 to 44.9 in adult / SNOMED CT 6956398860 / Confirmed Resolved: Cancer of prostate / SNOMED CT 1918412814, Active Problems (2) Class 3 severe obesity [...] stroke: no 4. Serious co-morbid conditions (recent [place], anemia with Hct <30%, CRI with SCr > 1.5, DM): no Score = 1/4 Risk (low = 0, mod = 1-2, high = 3-4): Normal [facility] Comment on above: Result [...] therapy and has been managed by the [facility] Coumadin clinic. He says he is therapeutic [...] Recorded: 29Apr2022 11:48AM Heart Rate60, R Radial Owgmxqpy894 Baxvufmbv44 Height5 ft 6 in Qtqcmm613 lb 6 oz BMI Neitmcgaul71.09 kg/m2 BSA Calculated2.19 Tobacco Useb) No Falls Screening (Age 18+)a) No falls within the last year Physical Exam Constitutional: alert and in no acute distress. Eyes: no erythema, swelling or discharge from the eye . Neck: neck i (more content not included)... Normal [address] Tobacco Screening.on 023 Fall risk assessment a) No falls within the last year [facility] [employer] 600 DO Work Phone: Tobacco use status [facility] b) No [email or web address] 600 DO Work Phone: POCT PT/INRon 04-19-2022 POCT INR 1.7 High .7-1.2 [facility] Comment on above: Performed By: #### 1 [id number], [id number], [id number] #### [facility] [address] [place] [address] POCT PT 19.1 second(s) High 8.0-15.0 [facility] Comment on above: Performed By: #### 1 [id number], [id number], [id number], [id number] #### [facility] [address] [place] [address] Coding Summary.on 04-08-2022 Coding Summary. CD:[id number] G h0bWw+PGhlYWQ+CD5CBOG rH53rkHRqjL4IB2iTKA6M FGTOVEEBFE7KKU8qaMA7A NtwG8NtnpZi WnfkdIPoBQ31PEv6DUS1v IkxYChxiR3vuGTvQ6f3Ll JgBM11mU46SBhpHHWdXhP 3LjZpbjsgbWFy K1bgMhJikZWdVjy+PHRhY mxlIHdpZHRoPScxMDAlJy NqdLvrRF8kMq9vJBZhWFC vbGxhcHNlOiBj d7hzCPAwTYgqBC8ftHvaI 5XkdZZ9NPSke7g9Bc74nM I+GHEjVQB3gGvwRCmni39 4WoEzs4llDIR0 xZXpEYjeUFX1K42nu9V2X OVhQWOuHDZ5uZN8iK6iiZ wpgnfjW9VirMRrTiN9LKI 1aERikT9nnToq wymesB3hSxs+K46TAY3MR UYLCH4EQgi1C4SgDokgnV I+OZ95PWVtRY42iXIljWH hu7cmyBz0XgWt JBLxMQJ2cOpqYEzyr7XqI DQsF76ebWCib0P4RZJmxA tevFZxMpOczQP7kV7hPRs lpgptu0wlyden Gxykx9uvko16gZ53V24nB RqlAWLkYLE3PXFyUHCwqJ twnr0fxM7oVt2+YJwbc2l ws4sppCe3UjTn CGUzksGioWhoQXX4z3MiG b69W3YxuYrco2EuHey4bf 33oVEth4B6aGI4EOrkUGM npQ7wDHorJcT0 TUUwQiUrnA24jOPvOWyrX c2mfSelsTdeNZ8bJFYfim qwETPsmQ0gITMpqTIubQv jGH8qFUFdpver g929SrByCPQ8UWNccIMnW 9MwzX3wXfToIFTwPHAyA1 VinZSsNJawK228SAfhVuD 5AMKhhwJvF8Xu ZFLohUlbSfN5i8G4Hb1Ri 3ZvmscvPUO1GShqJAAsGa OwShAtKsJ5A4ZyYjc4LCZ nvOpgHH7oD4Xv BRAdxomdejwgaVK6DWBgX JVcnL96qYGkUEzoYy6mt2 V1x911WQOmPVSleT02Ww0 udDogMTBwdCBU rT1geutho5svooptTzCrJ UOnCIp9NGg4YQGplJiwUl QwOQL8UsH4LBV0pPAwwP0 luZfbrrcxzW5w Oyc+P19ifU6gYHM9RAJ2u rqkMFAyliWrPU70MR35B9 RyPjwvdGFibGU+PGRpdiB qiCldWJ6gEcBw l6lyi3VeCSipN1XpKIUzP NdmVbt3VCTtMSF5yGW8rL 0cPZZuQSljs4N8tPV0Z3B hmfFlhm5wt7fy JZAbKImwI12hfHQyd2W2K MRlvSN5PJXfcDryWmYadV 93Oyc+GNZssNbuq1UyYak qu2nrh1fdkKk9 UuRhSUSqqpVvoBpwOWY6e 9DpHg24H82cZSqyCGZlJN JaJHSmDZJutOryoy8akV3 wIi8+PGNvbCB3 pFR7bG0bVUMoUxW6JPivK 669PbPuiVQiHqicg9nxa3 qpmVi8BcVjFLErhlSvtQm eDVN1k7YdIu03 T41lRQfoEVQgRWTkUSInE PMrpVaojh4asR6dIr0+PC 6xz9nufb12yJ76xYM+PHR oISL2lZhiTZnz EZBthC3iIFxaFvF7UTFeH uUfwW44dKDlCIrxJl6msX umwDtmBG7eCAQbjsyyw38 6AqNyu4iiBLDp rXBpGHmgECC7Y56im1Q3L CJnSODrNIH4aPP1nX3jzO lnbjogbGVmdDsgdmVydGl xECuuRXfdP817 IHRvcDsnPlBhdGllbnQgT bOoBTc2W7EmZqu6ATCabC ckLL9ngKIeGAxrEt3umRp pfInfCY9iKGNr onfys963AzCmr2asNEDfj ZHvWPsyCPQ3D11ts0X9FC HmPSLqNTB4gRY8bF5kbPh nbjogbGVmdDsg laKzdXasJFtdYTmnJ910S HRvcDsnPkJpcnRoIERhdG P6OD91QW28nAQfa0T5kHF 9F5KyFQCfgbpk vrwznZY4ATZrHZXrbS72B w2fsUzpGb3eTPAqKGX9PW ObpUYjD4YskV4vSyVuSYV tOJMdP8LrfBQb SEvhV335ZEejQaD1SXArf kReQ4DrRKQpqVlhVsH4k2 R1Kl3MT4R0SH10EJ47gGZ eh0R6oUK9S1Ks EFZutwrglpjioGG5QLYtI XJsdG49Ax6nfLvaNi4uSE SsERQ1WLAgqWHfE0XvlY1 yOiAjMDAwMDAw C1YwcSGvUSoaO140RVceZ gC1YPKeytWcR8TeHVQupT agOvH8m6I4La4WBCn9ML1 1BO06cDMnh9H3 pBU8R9MdWLVjyauzvsrze TU7KWTgTUGaiT44Zz2xkF kkYu6rUUYjPTK1TXAcgWL dS7AwzR2rOcZj JORxISWbP9NjpPBrQQddC 421WPbtWkN1YSUxufBxN7 JuMEXwfYjqIaB6k9P0Jc1 HJWApVR74STZ7 jNO2GS30RU55B8GrRezkt GFibGU+PHRhYmxlIHdpZH RoPScxMDAlJyBzdHlsZT0 cCw9wUEWyZXOv oJhltBSaSxYwn4brRJGqK HwjYB0ksAjwF7HefSC6FS Ovt6q0Vk19Y53hQ5SvpVB +MKTivDG2nGK0 fK1vKbFgOlD9JQynZ962B mDilVJgHuzfl9zlq8ajtK r6FuC8QEIsxgHpfCrvGDT 1u3KpUy04F31i IHdpZHRoPSIxNSUiIHZhb Loxho0doQ9sRb2+PGNvbC R2qWU9qO8iRsIqLqV4IEe rH471WkDqhPAs Fllgm5ytp5qojBi9FbIsV KQjeoDxiLfgAQO8b3XuIx 93F8XxdNbii7MvPsw1xq5 6wFPjp9D6qMR7 H7JtCCJcoafmaPPpkXlaA M8qRNZejoysOGDjsV8fNM KrG4b5YaYzWuD5PYhlH5S qdzS7DJKvcYNf AHhjZEF9N56hg0X8OFEbH EMiSAC1yUI3uR9ilGllrk ogbGVmdDsgdmVydGljYWw uALrwJ265BWVi kVtnZZDjbS0hIVOelLVjf XnnFA1rVIBkwmkgIfIBLh VIZKmtWQJRUsyETYv8I1V dDzu3ZAHuvMvv HH9urZIeZFhxVs0xvEilv ByoIJ5aCKShvmrdMKPhlJ 9cQPMbxPGxwGdlFN4mRNF aqloal267AgJq NUB8THIhqITjX5BujE2fX fOpJLBjNFWjX9WclFZdTS evA574RAbyZcW0YSSplwX iO8MgGSYoeTzv OmE2i2C5Nn6lER1jAY1yR HC4LX52AB16fNAll8Z8rM T0U6XbAUYvfvzhdujnqLK 9WCJhBOVlmG82 uBZlUYraPu0su9G9n140R DVkSSYitK11Vq1kmAyiXY OlxMNCsI2jkxscm1whwia gIzAwMDAwMDt0 KXu9TILreZwdPdAwQGJ7W qQ0EMH2yCZssU1reGqiin ojhA5xTqr+NzMgWWVhcnM 7B8RhWpx1VXDd tJfrTW9ccDKsKQnvAu7hz EduuBxkLK2aIEYuntxsXH IyoZ4oMNLcwGXllPcvVK5 fIDUxxwjqg514 SiCxAYQ3HOTfxFBgP0Bss P2gWoXfKQMuDGXuW3AdtG CrOQtlI173NVdaRmX4NBS epeGmF6EfONVs cPzqXkM1p7W5Xq7QUHpcI G66AX43sDDim6G4gEH9Y0 XnFDIsnrgverhsnYF7ECE iWPVqpU03cASx FMeaEx0ph1C6w479ORCpI ZRcwZ44El7qkLjtTXXvfX DPmZ4tppsim4udrlrkYrT iMFChTXu7GBp7 GQQlpTxeHqArDJV8GjD8Y UF9uQTbbZ6hdEmzabycuH 9wOyc+NgWysWMujV8mAT6 0VA98G6HfHvmr dGFibGU+PHRhYmxlIHdpZ HRoPScxMDAlJyBzdHlsZT 1nHq5kECBaMARyzBqbrGM fDbRmu1fnZSOz KYjcOT9dsEatO1GmkXX2Q ZMhr6w4Vu96U04eU9AaxC A+PYKwcJB9lEU3wR8lVuP gDiC4UQeqO482 WpFjdHOhLxqvm4pta8dgn Tz4HlTsGLVuqtEkvWsnOT X6g3MqDi77R21bCLhbHUH oPSIyMCUiIHZh hRmhbg9bkM9pTu2+PGNvb EM9pXQ4dZ6oCfYoUcR9GT ksR982JqZwaSVvDbdfE56 cN9EwaZZ+PHRy Aqi2HHZzcQgiQD7ocXFrP IxlKg3zWEU5RyBcAzEwBS vlM9UfCTClxhygrthqcKA 3NBSzNDVznX47 On4vzZtlDf5mWXGcDYF7I HAsrLPaD4CimN1qNuUjWX UmZIUeS6MycLZuYJreR59 9ORqnIdN6XGEn egGuF7FvDVKgcXgnFoC3a 0K8Xk5VvMctdQSzOA4rSe TyIQx9S3VoVum1WKAjwQc kMA2jeTVhDDmc Jg3guLsdfEinVA1pFBXaa ymji175JlFpp0qwUXTktZ RjXBfeTFC4D84rv4W5UVV sYHGtCRK4eGC1 aO2deUtcxjbeiQGqhTlsc nRxvCseURaoKOqrB924XV HujAkjZrWEJuf3F3VfZyh 7YCKyaOwbQA9j vMWfBNutLd3mfTlmiPwzH I6yYDEjwqulm566WtXpv8 zlCQVpgXVfEEeeTTD2C34 kl6J2QOUvKLNm GYO0lKX5aE7zxTtyatfam GVmdDsgdmVydGljYWwtYW tdG838YRMtoQapAv0MOpn 3M0CyGio7TPUr eYgkRF2noXTtURteIb1qs MxqxOcaNV0zKNWisutbq6 24GuHbp0adCDHsbXFxHMw fDLA4Y55vx6X8 TRNgPFRcZJF2rYW0xF9gm GlnbjogbGVmdDsgdmVydG phDFnyUFktD026RXAutXz nPlBheWVyOjwv dGQ+EF05zk04F3AnCijnE mv2XSEdKEF8eIN5cT6bRG UnESrox6M1rBQ6P0KxafC rmk4ut9ysPQXt ZTog (more content not included)... Normal [facility] POCT PT/INRon 04-05-2022 POCT INR 1.3 High .7-1.2 [facility] Comment on above: Performed By: #### 2 [id number] #### [facility] [address] [place] [address] POCT PT 15.0 second(s) Normal 8.0-15.0 [facility] Comment on above: Performed By: #### 2 [id number] #### [facility] [address] [place] [address] POCT INR Error Invalid Interpretation Code .7-1.2 [facility] Comment on above: Performed By: #### 1 [id number], [id number], [id number], [id number] #### [facility] [address] [place] [address] POCT PT Strip Error Invalid Interpretation Code 8.0-15.0 [facility] Comment on above: Performed By: #### 1 [id number], [id number], [id number] #### [facility] [address] [place] [address] POCT INR Error Invalid Interpretation Code .7-1.2 [facility] Comment on above: Performed By: #### 1 [id number], [id number] #### [facility] [address] [place] [address] POCT PT Strip Error Invalid Interpretation Code 8.0-15.0 [facility] Comment on above: Performed By: #### 1 [id number], [id number], [id number], [id number] #### [facility] [address] [place] [address] Physician Orderon 04-01-2022 Physician Order [id number]# 1.00CD:127 Normal [facility] Consent for Treatmenton Consent for Treatment [id number]#1 .00CD:127 Normal [facility] POCT PT/INRon 03-29-2022 POCT INR 1.3 High .7-1.2 [facility] Comment on above: Performed By: #### 2 [id number] #### [facility] [address] [place] [address] POCT PT 14.2 second(s) Normal 8.0-15.0 [facility] Comment on above: Performed By: #### 2 [id number] #### [facility] [address] [place] [address] E[facility] echo transthoracicon E[facility] echo transthoracic [facility] [place] [address] Echocardiogram Signed Patient: Fredrick Stroud MR#: [id number] : [id number] Acct:[id number] Age/Sex: 71 / M ADM Date: 03/27/22 Loc: Room: Type: [facility] Attending Dr: Sejal Link GARMENT LINER-C Ordering Provider: Sejal Link APRN Date of Service: 03/27/22/ ECH/ECH echo transthoracic: Afib. SOB. HTN. Copies to: LUCY Hankins MD, [facility]IN [facility] BSA: 2.2 m2 BP: 125/82 [...] mmHg Transcribed By: SCV Performed At: 03/27/22 0942 Signed By: Love Gaviria MD, [facility] 03/27/22 9085 [facility] Free T4 (Free Thyroxine)on 0 03-27-2022 Free T4 [Mass/Vol] 1.01 ng/dL Normal 0.61-1.12 [facility] [place] Comment on above: Order Comment: Reaso n for Exam Atrial fibrillation;Essential hypertension Performed By: #### C BC, CMP, HS TROP, BNP #### [facility] [address] TSH DL <= 0.005 mIU/L QnOrde red By: Sejal Link on 03-27-2022 TSH Qn 2.57 m[IU]/L 0.45-5.33 [facility] Thyroid Stimulating Hormoneo n 03-27-2022 TSH Qn 2.57 m[IU]/L Normal 0.45-5.33 [facility] Comment on above: Order Comment: Reaso n for Exam Atrial fibrillation;Essential hypertension Result Comment: PERF ORMED BY: [place] [address] PATHOLOGIST [employer] OPERATOR EYAD HOWARD M.D. Performed By: #### C BC, CMP, HS TROP, BNP #### [facility] [address] [place] [address] [facility] Thyroxine (T4) free [Mass/vo lume] in Serum or PlasmaOrdered By: Sejal Link on 03-27-2022 Free T4 [Mass/Vol] 1.01 ng/dL 0.61-1.12 [facility] Triiodothyronine (T3) Freeon 03-27-2022 Triiodothyronine (T3) Free 3.17 pg/mL Normal 2.50-3.90 [facility] Comment on above: Order Comment: Reaso n for Exam Atrial fibrillation;Essential hypertension Result Comment: PERF ORMED BY: [facility] [address] [place] [address] PATHOLOGIST BLACK OXIDE OPERATOR EYAD HOWARD M.D. Performed By: #### C BC, CMP, HS TROP, BNP #### [facility] [address] [place] [address] [facility] Triiodothyronine (T3) Free [ Mass/volume] in Serum or PlasmaOrdered By: Sejal Link on 03-27-2022 Free T3 [Mass/Vol] 3.17 pg/mL 2.50-3.90 [facility] Office Visit (Cardiology)on 03-21-2022 Follow-up visit Diagnoses/Problems [...] Goal 2.0-3.0. Patient would like managed with [facility] Coumadin clinic Follow up in 2 months [...] which include rate control with anticoagulation versus latter-day of maintenance of sinus rhythm. After discussing [...] Signs Recorded: 21Mar2022 02:26PM Heart Rate67, Apical [id number], RUE, Rvzhuiw857, LUE, Sitting [id number], RUE, Sfdqdep78, LUE, Sitting He (more content not included)... Normal [employer] Albumin [Mass/volume] in Ser um or PlasmaOrdered By: Yo Blood on 03-11-2022 Albumin [Mass/Vol] 4.1 g/dL 3.2-5.5 [facility] B-Type Natriuretic Peptideon 03-11-2022 Natriuretic peptide B (Bld) [Mass/Vol] 101.0 pg/mL High 5-100 [facility] Comment on above: Result Comment: PERF ORMED BY: [place] [address] PATHOLOGIST BLACK OXIDE OPERATOR EYAD HOWARD M.D. Performed By: #### C BC, CMP, HS TROP, BNP #### [address] Basophils Auto (Bld) [#/Vol] Ordered By: Yo Blood on 03-11-2022 Basophils (Bld) [#/Vol] 0.0 10*3/uL 0.0-0.2 [facility] Basophils/100 WBC Auto (Bld) Ordered By: Yo Blood on 03-11-2022 Basophils/100 WBC (Bld) 1.1 % . [facility] COVID-19 Antigenon 3 COVID-19 Antigen [...] developed and its performance characteristic determined by Xeros and validated at [facility]. This test has not been [...] for SARS Antigen by OLY PERFORMED BY: [place] [address] PATHOLOGIST BLACK OXIDE OPERATOR EYAD HOWARD M.D. Normal [facility] Comment on above: Performed By: #### C OVID-19 GERTRUDE, SOFIANEG #### [address] COVID-19 SOFIAOrdered By: Buster Blood on 03-11-2022 SARS-CoV+SARS-CoV-2 (COVID-19) Ag IA.rapid Ql (Resp) Negative Negative [facility] Comment on above: This is a duplicate Gertrude SARS Antigen (OLY) result to be used for statistical tracking purpose only. Complete Blood Count Auto Di ffon 03-11-2022 Basophils (Bld) [#/Vol] 0.0 10*3/uL Normal 0.0-0.2 [facility] Comment on above: Result Comment: PERF ORMED BY: [place] [address] PATHOLOGIST BLACK OXIDE OPERATOR EYAD HOWARD M.D. Performed By: #### C BC, CMP, HS TROP, BNP #### [address] Basophils/100 WBC (Bld) 1.1 % Normal . [facility] Comment on above: Performed By: #### C BC, CMP, HS TROP, BNP #### [address] Eosinophils (Bld) [#/Vol] 0.0 10*3/uL Normal 0.0-0.45 [facility] Comment on above: Performed By: #### C BC, CMP, HS TROP, BNP #### [address] Eosinophils/100 WBC (Bld) 0.4 % Normal . [facility] Comment on above: Performed By: #### C BC, CMP, HS TROP, BNP #### [address] Erythrocyte distribution width (RBC) [Ratio] 14.0 % Normal 12.0-14.8 [facility] Comment on above: Performed By: #### C BC, CMP, HS TROP, BNP #### [address] Hematocrit (Bld) [Volume fraction] 46.7 % Normal 38.8-50.0 [facility] Comment on above: Performed By: #### C BC, CMP, HS TROP, BNP #### [address] Hemoglobin (Bld) [Mass/Vol] 15.3 g/dL Normal 13.0-17.0 [facility] Comment on above: Performed By: #### C BC, CMP, HS TROP, BNP #### [address] Lymphocytes (Bld) [#/Vol] 1.1 10*3/uL Normal 1.00-4.8 [facility] Comment on above: Performed By: #### C BC, CMP, HS TROP, BNP #### [facility] [address] Lymphocytes/100 WBC (Bld) 29.0 % Normal . [facility] Comment on above: Performed By: #### C BC, CMP, HS TROP, BNP #### [facility] [address] MCH (RBC) [Entitic mass] 29.4 pg Normal 27.5-35.2 [facility] Comment on above: Performed By: #### C BC, CMP, HS TROP, BNP #### [address] MCV (RBC) [Entitic vol] 89.6 fL Normal 83.5-101 [facility] Comment on above: Performed By: #### C BC, CMP, HS TROP, BNP #### [address] Mean Corpuscular HGB Conc 32.8 g/dL Normal 32.5-35.6 [facility] Comment on above: Performed By: #### C BC, CMP, HS TROP, BNP #### [address] Monocytes (Bld) [#/Vol] 0.8 10*3/uL Normal 0.0-0.8 [facility] Comment on above: Performed By: #### C BC, CMP, HS TROP, BNP #### [place] [address] [place] Monocytes/100 WBC (Bld) 20.67 % High 0.00-20.00 [facility] Comment on above: Result Comment: For adults in ED, MDW > 20.0 may be associated with a higher risk of sepsis during the first 12 hrs of hospital admission Performed By: #### C BC, CMP, HS TROP, BNP #### [address] Monocytes/100 WBC (Bld) 20.9 % Normal . [facility] Comment on above: Performed By: #### C BC, CMP, HS TROP, BNP #### [facility] [address] [place] [address] [place] Neutrophils (Bld) [#/Vol] 1.8 10*3/uL Normal 1.8-7.7 [facility] Comment on above: Performed By: #### C BC, CMP, HS TROP, BNP #### [facility] [address] Neutrophils/100 WBC (Bld) 48.6 % Normal . [facility] Comment on above: Performed By: #### C BC, CMP, HS TROP, BNP #### [address] NRBC% 0.2 /100{WBC} Normal 0-0.5 [facility] Comment on above: Performed By: #### C BC, CMP, HS TROP, BNP #### [address] Platelet mean volume (Bld) [Entitic vol] 8.5 fL Normal 6.6-10.1 [facility] Comment on above: Performed By: #### C BC, CMP, HS TROP, BNP #### [place] [address] [place] Platelets (Bld) [#/Vol] 197 10*3/uL Normal 150-450 [facility] Comment on above: Performed By: #### C BC, CMP, HS TROP, BNP #### [place] [address] [place] RBC (Bld) [#/Vol] 5.21 10*6/uL Normal 3.90-5.60 [facility] Comment on above: Performed By: #### C BC, CMP, HS TROP, BNP #### [place] [address] [place] WBC (Bld) [#/Vol] 3.7 10*3/uL Low 4.1-10.5 [facility] Comment on above: Performed By: #### C BC, CMP, HS TROP, BNP #### [place] [address] [place] Comprehensive Metabolic Pane rigo 03-11-2022 Albumin [Mass/Vol] 4.1 g/dL Normal 3.2-5.5 [facility] Comment on above: Performed By: #### C BC, CMP, HS TROP, BNP #### [facility] [address] Albumin/Globulin [Mass ratio] 1.5 {ratio} Normal [facility] Comment on above: Performed By: #### C BC, CMP, HS TROP, BNP #### [facility] [address] ALP [Catalytic activity/Vol] 79 U/L Normal 32-92 [facility] Comment on above: Performed By: #### C BC, CMP, HS TROP, BNP #### [facility] [address] ALT [Catalytic activity/Vol] 23 U/L Normal 10-60 [facility] Comment on above: Performed By: #### C BC, CMP, HS TROP, BNP #### [facility] [address] Anion gap [Moles/Vol] 13.7 mmol/L Normal 6.0-15.0 [facility] Comment on above: Performed By: #### C BC, CMP, HS TROP, BNP #### [facility] [address] AST [Catalytic activity/Vol] 32 U/L Normal 10-42 [facility] Comment on above: Performed By: #### C BC, CMP, HS TROP, BNP #### [facility] [address] [place] [address] [place] Bilirubin [Mass/Vol] 0.6 mg/dL Normal 0.3-1.2 [facility] Comment on above: Performed By: #### C BC, CMP, HS TROP, BNP #### [facility] [address] Calcium [Mass/Vol] 9.2 mg/dL Normal 8.2-10.2 [facility] Comment on above: Performed By: #### C BC, CMP, HS TROP, BNP #### [facility] [address] [place] [address] [place] Chloride [Moles/Vol] 98 mmol/L Normal 95-114 [facility] Comment on above: Performed By: #### C BC, CMP, HS TROP, BNP #### [facility] [address] CO2 [Moles/Vol] 29.0 mmol/L Normal 22.0-30.0 [facility] Comment on above: Performed By: #### C BC, CMP, HS TROP, BNP #### [address] Creatinine [Mass/Vol] 0.86 mg/dL Normal 0.64-1.27 [facility] Comment on above: Performed By: #### C BC, CMP, HS TROP, BNP #### [address] Creatinine Clr Calc Pharmacy 91.63 [facility] Comment on above: Result Comment: PERF ORMED BY: [place] [address] PATHOLOGIST BLACK OXIDE OPERATOR EYAD HOWADR M.D. Performed By: #### C BC, CMP, HS TROP, BNP #### [address] Estimated GFR ( Jessica > 60 [facility] Comment on above: Result Comment: GFR estimated reference range: According to KDOQI guidelines, <60 ml/min/1.73m2 is sufficient to diagnose a patient with chronic kidney disease. Performed By: #### C BC, CMP, HS TROP, BNP #### [facility] [address] [place] [address] Estimated GFR (Non- Am > 60 [facility] Comment on above: Performed By: #### C BC, CMP, HS TROP, BNP #### [address] Globulin (S) [Mass/Vol] 2.8 g/dL [facility] Comment on above: Performed By: #### C BC, CMP, HS TROP, BNP #### [facility] [address] [place] [address] [place] Glucose [Mass/Vol] 91 mg/dL Normal 70-100 [facility] Comment on above: Result Comment: Donald Glucose Reference Range is dependent on time and content of last meal. Glucose of more than 200 mg/dL in a nonstressed, ambulatory subject supports the diagnosis of Diabetes Mellitus. ADA recommended reference range Performed By: #### C BC, CMP, HS TROP, BNP #### [facility] [address] [place] [id number] [place] Potassium [Moles/Vol] 3.7 mmol/L Normal 3.5-5.1 [facility] Comment on above: Performed By: #### C BC, CMP, HS TROP, BNP #### [facility] [address] [place] [address] [place] Protein [Mass/Vol] 6.9 g/dL Normal 6.1-7.9 [facility] Comment on above: Performed By: #### C BC, CMP, HS TROP, BNP #### [facility] [address] [place] [address] [place] Sodium [Moles/Vol] 137 mmol/L Normal 136-146 [facility] Comment on above: Performed By: #### C BC, CMP, HS TROP, BNP #### [facility] [address] [place] [id number] [place] Urea nitrogen [Mass/Vol] 10 mg/dL Normal 9-23 [facility] Comment on above: Performed By: #### C BC, CMP, HS TROP, BNP #### [facility] [address] [place] [id number] [place] Creatinine and Glomerular fi ltration rate.predicted panel (S/P/Bld)Ordered By: Yo Blood on 03-11-2022 Creatinine [Mass/Vol] 0.86 mg/dL 0.64-1.27 [facility] ECG 12 lead ECGon 03-11-[address]22 [address] [facility] [place] [address] [place] [address] Electrocardiograph Report Signed Patient: Fredrick Stroud MR#: [id number] 427 : 1950 Acct:[id number] Age/Sex: 71 / M ADM Date: 03/11/22 [...] voltage QRS Confirmed by Yo BLOOD DO ([id number]) on 03/11/2022 9:03:33 PM Referred By: Electronically Signed By:Yo BLOOD DO Transcribed By: MUS Signed By Yo Blood DO 0 03/11/222102 [facility] ECG [address] [facility] [place] [address] Electrocardiograph Report Signed Patient: Fredrick Stroud MR#: [id number] 427 : 1950 Acct:[id number] Age/Sex: 71 / M ADM Date: 03/11/22 Loc: ER Room: Type: [facility] ER Attending Dr: Ordering Provider: Yo [...] voltage QRS Confirmed by Yo BLOOD DO ([id number]) on 03/11/2022 7:52:28 PM Referred By: Electronically Signed By:Yo BLOOD DO Transcribed By: MUS Signed By Yo Blood DO 0 03/11/221951 [facility] Eosinophils Auto (Bld) [#/Vo l]Ordered By: Yo Blood on 03-11-2022 Eosinophils (Bld) [#/Vol] 0.0 10*3/uL 0.0-0.45 [facility] Eosinophils/100 WBC Auto (Bl d)Ordered By: Yo Blood on 03-11-2022 Eosinophils/100 WBC (Bld) 0.4 % . [facility] Erythrocyte distribution wid th Auto (RBC) [Ratio]Ordered By: Yo Blood on 03-11-2022 Erythrocyte distribution width (RBC) [Ratio] 14.0 % 12.0-14.8 [facility] Estimated glomerular filtrat ion rate (GFR) non- AmericanOrdered By: Yo Blood on 03-11-2022 GFR/1.73 sq M.predicted among non-blacks MDRD (S/P/Bld) [Vol rate/Area] > 60 mL/Min [facility] Globulin Calc (S) [Mass/Vol] Ordered By: Yo Blood on 03-11-2022 Globulin (S) [Mass/Vol] 2.8 g/dL [facility] Hematocrit Auto (Bld) [Volum e fraction]Ordered By: Yo Blood on 03-11-2022 Hematocrit (Bld) [Volume fraction] 46.7 % 38.8-50.0 [facility] Hemoglobin [Mass/volume] in BloodOrdered By: Yo Blood on 03-11-2022 Hemoglobin (Bld) [Mass/Vol] 15.3 g/dL 13.0-17.0 [facility] Laboratory - Chemistry and C hemistry - challengeOrdered By: Yo Blood on 03-11-2022 Natriuretic peptide B (Bld) [Mass/Vol] 101.0 pg/mL 5-100 [facility] Leukocytes [#/volume] correc vlad for nucleated erythrocytes in Blood by Automated counOrdered By: Yo Blood on 03-11-2022 WBC corrected for nucl RBC Auto (Bld) [#/Vol] 3.7 10*3/uL 4.1-10.5 [facility] Lymphocytes Auto (Bld) [#/Vo l]Ordered By: Yo Blood on 03-11-2022 Lymphocytes (Bld) [#/Vol] 1.1 10*3/uL 1.00-4.8 [facility] Lymphocytes/100 WBC Auto (Bl d)Ordered By: Yo Blood on 03-11-2022 Lymphocytes/100 WBC (Bld) 29.0 % . [facility] MCH Auto (RBC) [Entitic mass ]Ordered By: Yo Blood on 03-11-2022 MCH (RBC) [Entitic mass] 29.4 pg 27.5-35.2 [facility] MCHC Auto (RBC) [Mass/Vol]Or dered By: oY Blood on 03-11-2022 MCHC (RBC) [Mass/Vol] 32.8 g/dL 32.5-35.6 [facility] MCV Auto (RBC) [Entitic vol] Ordered By: Yo Blood on 03-11-2022 MCV (RBC) [Entitic vol] 89.6 fL 83.5-101 [facility] Monocyte distribution width [Entitic volume] in Blood by AutomatedOrdered By: Yo Blood on 03-11-2022 Monocyte distribution width Auto (Bld) [Entitic vol] 20.67 % 0.00-20.00 [facility] Comment on above: For adults in ED, MD W > 20.0 may be associated with a higher risk of sepsis during the first 12 hrs of hospital admission Monocytes Auto (Bld) [#/Vol] Ordered By: Yo Blood on 03-11-2022 Monocytes (Bld) [#/Vol] 0.8 10*3/uL 0.0-0.8 [facility] Monocytes/100 WBC Auto (Bld) Ordered By: Yo Blood on 03-11-2022 Monocytes/100 WBC (Bld) 20.9 % . [facility] Neutrophils Auto (Bld) [#/Vo l]Ordered By: Yo Blood on 03-11-2022 Neutrophils (Bld) [#/Vol] 1.8 10*3/uL 1.8-7.7 [facility] Neutrophils/100 WBC Auto (Bl d)Ordered By: Yo Blood on 03-11-2022 Neutrophils/100 WBC (Bld) 48.6 % . [facility] No Panel InformationOrdered By: Yo Blood on 03-11-2022 SARS Antigen (LFIA) [facility] Estimated GFR () > 60 mL/Min [facility] Comment on above: GFR estimated refere nce range: According to KDOQI guidelines, <60 ml/min/1.73m2 is sufficient to diagnose a patient with chronic kidney disease. Pharmacy Creatinine Clearance (Chem 91.63 [facility] Nucleated erythrocytes [Pres ence] in Blood by Automated countOrdered By: Yo Blood on 03-11-2022 Nucleated RBC Auto Ql (Bld) 0.2 /100{WBC} 0-0.5 [facility] Platelet mean volume Auto (B ld) [Entitic vol]Ordered By: Yo Blood on 03-11-2022 Platelet mean volume (Bld) [Entitic vol] 8.5 fL 6.6-10.1 [facility] Platelets Auto (Bld) [#/Vol] Ordered By: Yo Blood on 03-11-2022 Platelets (Bld) [#/Vol] 197 10*3/uL 150-450 [facility] Protein [Mass/volume] in Ser um or PlasmaOrdered By: Yo Blood on 03-11-2022 Protein [Mass/Vol] 6.9 g/dL 6.1-7.9 [facility] RBC Auto (Bld) [#/Vol]Ordere d By: Yo Blood on 03-11-2022 RBC (Bld) [#/Vol] 5.21 10*6/uL 3.90-5.60 [facility] Serum or plasma alanine sullivan otransferase measurement without P-5'-P (enzymatic activiOrdered By: Yo Blood on 03-11-2022 ALT No additional P-5'-P [Catalytic activity/Vol] 23 U/L 10-60 [facility] Serum or plasma albumin/glob ulin mass ratioOrdered By: Yo Blood on 03-11-2022 Albumin/Globulin [Mass ratio] 1.5 {ratio} [facility] Serum or plasma alkaline faviola sphatase measurement (enzymatic activity/volume)Ordered By: Yo Blood on 03-11-2022 ALP [Catalytic activity/Vol] 79 U/L 32-92 [facility] Serum or plasma anion gap de terminationOrdered By: Yo Blood on 03-11-2022 Anion gap [Moles/Vol] 13.7 mmol/L 6.0-15.0 [facility] Serum or plasma aspartate am inotransferase measurement (enzymatic activity/volume)Ordered By: Yo Blood on 03-11-2022 AST [Catalytic activity/Vol] 32 U/L 10-42 [facility] Serum or plasma calcium echo urement (mass/volume)Ordered By: Yo Blood on 03-11-2022 Calcium [Mass/Vol] 9.2 mg/dL 8.2-10.2 [facility] Serum or plasma chloride tessie surement (moles/volume)Ordered By: Yo Blood on 03-11-2022 Chloride [Moles/Vol] 98 mmol/L 95-114 [facility] Serum or plasma glucose echo urement (mass/volume)Ordered By: Yo Blood on 03-11-2022 Glucose [Mass/Vol] 91 mg/dL 70-100 [facility] Comment on above: ADA recommended refe rence rangeRandom Glucose Reference Range is dependent on time and content of last meal. Glucose of more than 200 mg/dL in a nonstressed, ambulatory subject supports the diagnosis of Diabetes Mellitus. Serum or plasma potassium me asurement (moles/volume)Ordered By: Yo Blood on 03-11-2022 Potassium [Moles/Vol] 3.7 mmol/L 3.5-5.1 [facility] Serum or plasma sodium measu rement (moles/volume)Ordered By: Yo Blood on 03-11-2022 Sodium [Moles/Vol] 137 mmol/L 136-146 [facility] Serum or plasma total biliru bin measurement (mass/volume)Ordered By: Yo Blood on 03-11-2022 Bilirubin [Mass/Vol] 0.6 mg/dL 0.3-1.2 [facility] Serum or plasma total carbon dioxide measurement (moles/volume)Ordered By: Yo Blood on 03-11-2022 CO2 [Moles/Vol] 29.0 mmol/L 22.0-30.0 [facility] Serum or plasma urea nitroge n measurement (mass/volume)Ordered By: Yo Blood on 03-11-2022 Urea nitrogen [Mass/Vol] 10 mg/dL 11-16 [facility] Gertrude Ag Negativeon 03-11-19 Gertrude Ag Negative Negative Normal Negative [facility] Comment on above: Result Comment: This is a duplicate Gertrude SARS Antigen (OLY) result to be used for statistical tracking purpose only. PERFORMED BY: [place] [address] PATHOLOGIST BLACK OXIDE OPERATOR EYAD HOWARD M.D. Performed By: #### C OVID-19 GERTRUDE, SOFIANEG #### [place] [address] [place] Troponin I High Sensitivityo n 03-11-2022 Troponin I High Sensitivity 9 pg/mL Normal 0- [facility] Comment on above: Result Comment: PERF ORMED BY: [address] [address] PATHOLOGIST BLACK OXIDE OPERATOR EYAD HOWARD M.D. Performed By: #### C BC, CMP, HS TROP, BNP #### [facility] [address] [place] [address] [place] Troponin I.cardiac [Mass/vol ume] in Serum or Plasma by High sensitivity methodOrdered By: Yo Blood on 03-11-2022 Troponin I.cardiac High sensitivity method [Mass/Vol] 9 pg/mL 0- [facility] WBC Auto (Bld) [#/Vol]Ordere d By: Yo Blood on 03-11-2022 WBC (Bld) [#/Vol] 3.7 10*3/uL 4.1-10.5 [facility] XR chest 2V*on 03-11-2022 XR chest 2V* [facility] [place] [address] [place] [address] XRay Report Signed Patient: Fredrick Stroud MR#: [id number] 427 : 1950 Acct:[id number] Age/Sex: 71 / M ADM Date: 03/11/22 Loc: ER Room: Type: PRE ER Attending Dr: Copies to: PANKAJ PROVIDER Ordering Provider: TEMP, PROVIDER Date of Service: 03/11/22 XR/XR chest 2V*: [...] Ga Dorsey M.D.03/11/2022 1:42 PM Dictation Location: [place] [address] Transcribed By: [facility] 03/11/22 1342 Dictated By: Ga Dorsey II, MD 03/11/22 1339 Signed By: 03/11/22 1342 Normal [facility] XR hip LT min 2V(w/wo pelvis )*on 09-26-2021 XR hip LT min 2V(w/wo pelvis)* [facility] [place] [address] [place] [address] XRay Report Signed Patient: Fredrick Stroud MR#: [id number] 427 : 1950 Acct:[id number] Age/Sex: 70 / M ADM Date: 09/26/21 Loc: [facility] Room: Type: [facility] Attending Dr: Shahriar Dhillon II, MD Copies [...] 3:27 PM Dictation Location: [facility]IO-PC-13 Transcribed By: [facility] 09/26/21 1527 Dictated By: Ariana Tanner MD 09/26/21 1526 Signed By: 09/26/21 152 [facility] XR hip LT min 2V(w/wo pelvis )*on 08-15-2021 XR hip LT min 2V(w/wo pelvis)* [place] [address] XRay Report Signed Patient: Fredrick Stroud MR#: [id number] 427 : 1950 Acct:[id number] Age/Sex: 70 / M ADM Date: 08/15/21 Loc: [facility] Room: Type: [facility] Attending Dr: Shahriar Dhillon II, MD Copies [...] Dictated By: Dandy Stevenson Jr, DO 08/15/21 143 Signed By: 08/15/21 144 [facility] XR hip LT min 2V(w/wo pelvis)* [facility] [employer] Other XR hip LT min 2V(w/wo pelvis)* [facility] [place] [employer] Other XR hip LT min 2V(w/wo pelvis)* [address] [facility] [employer] Other XR hip LT min 2V(w/wo pelvis)* [place] [address] [employer] Other XR hip LT min 2V(w/wo pelvis)* XRay Report [employer] Other XR hip LT min 2V(w/wo pelvis)* Signed [employer] Other XR hip LT min 2V(w/wo pelvis)* Patient: Fredrick Stroud MR#: [id number] [employer] Other XR hip LT min 2V(w/wo pelvis)* 427 [employer] Other XR hip LT min 2V(w/wo pelvis)* : 1950 Acct:[id number] [employer] Other XR hip LT min 2V(w/wo pelvis)* Age/Sex: 70 / M ADM Date: 08/15/21 [employer] Other XR hip LT min 2V(w/wo pelvis)* Loc: [facility] Room: Type: [facility] [employer] Other XR hip LT min 2V(w/wo pelvis)* Attending Dr: Shahriar Dhillon II, MD [employer] Other XR hip LT min 2V(w/wo pelvis)* Copies to: Shahriar Dhillon MD [employer] Other XR hip LT min 2V(w/wo pelvis)* Ordering Provider: Shahriar Dhillon MD [employer] Other XR hip LT min 2V(w/wo pelvis)* Date of Service: 08/15/21 [employer] Other XR hip LT min 2V(w/wo pelvis)* XR/XR hip LT min 2V(w/wo pelvis)*: Aftercare following joint replacement [employer] Other XR hip LT min 2V(w/wo pelvis)* surgery [employer] Other XR hip LT min 2V(w/wo pelvis)* LEFT HIP - 2 views: 1 view pelvis [employer] Other XR hip LT min 2V(w/wo pelvis)* CLINICAL HISTORY: Follow-up left GEOVANI [employer] Other XR hip LT min 2V(w/wo pelvis)* COMPARISON: Hip series 07/02/2021 [employer] Other XR hip LT min 2V(w/wo pelvis)* FINDINGS: 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 Prostate radiation [employer] Other XR hip LT min 2V(w/wo pelvis)* seeds. Mild degenerative changes right hip. [employer] Other XR hip LT min 2V(w/wo pelvis)* XR/XR hip LT min 2V(w/wo pelvis)* [employer] Other XR hip LT min 2V(w/wo pelvis)* IMPRESSION: [employer] Other XR hip LT min 2V(w/wo pelvis)* NO EVIDENCE OF HARDWARE COMPLICATION. [employer] Other XR hip LT min 2V(w/wo pelvis)* Impression dictated by: Dandy Stevenson Jr., D.O.08/15/2021 2:40 PM [employer] Other XR hip LT min 2V(w/wo pelvis)* Dictation Location: [facility]IO-PC-13 [employer] Other XR hip LT min 2V(w/wo pelvis)* Transcribed By: ADRIAN 08/15/21 1440 [employer] Other XR hip LT min 2V(w/wo pelvis)* Dictated By: Dandy Stevenson Jr, DO 08/15/21 1439 [employer] [facility] [employer] Other XR hip LT min 2V(w/wo pelvis)* Signed By: [employer] Other XR hip LT min 2V(w/wo pelvis)* 08/15/21 1440 [employer] [facility] [employer] Other Basic Metabolic Panelon 06-24 Calcium [Mass/Vol] 8.6 mg/dL Normal 8.2-10.2 [facility] Comment on above: Performed By: #### C BC, BMP #### [facility] [address] Chloride [Moles/Vol] 102 mmol/L Normal 95-114 [facility] Comment on above: Performed By: #### C BC, BMP #### [facility] [address] CO2 [Moles/Vol] 25.5 mmol/L Normal 22.0-30.0 [facility] Comment on above: Performed By: #### C BC, BMP #### [facility] [address] Creatinine [Mass/Vol] 0.96 mg/dL Normal 0.64-1.27 [facility] Comment on above: Performed By: #### C BC, BMP #### [facility] [address] [place] [address] [place] Creatinine Clr Calc Pharmacy 81.73 [facility] Comment on above: Result Comment: PERF ORMED BY: [facility] [address] [place] [address] PATHOLOGIST BLACK OXIDE OPERATOR EYAD HOWARD M.D. Performed By: #### C BC, BMP #### [facility] [address] Estimated GFR ( Jessica > 60 Normal [facility] Comment on above: Result Comment: GFR estimated reference range: According to KDOQI guidelines, <60 ml/min/1.73m2 is sufficient to diagnose a patient with chronic kidney disease. Performed By: #### C BC, BMP #### [address] Estimated GFR (Non- Am > 60 Normal [facility] Comment on above: Performed By: #### C BC, BMP #### [facility] [address] Glucose [Mass/Vol] 167 mg/dL High 70-100 [facility] Comment on above: Result Comment: Donald Glucose Reference Range is dependent on time and content of last meal. Glucose of more than 200 mg/dL in a nonstressed, ambulatory subject supports the diagnosis of Diabetes Mellitus. ADA recommended reference range Performed By: #### C BC, BMP #### [address] Potassium [Moles/Vol] 4.4 mmol/L Normal 3.5-5.1 [facility] Comment on above: Performed By: #### C BC, BMP #### [address] Sodium [Moles/Vol] 135 mmol/L Low 136-146 [facility] Comment on above: Performed By: #### C BC, BMP #### [address] Urea nitrogen [Mass/Vol] 18 mg/dL Normal 9-23 [facility] Comment on above: Performed By: #### C BC, BMP #### [address] Complete Blood Count Auto Di ffon 07-03-2021 Basophils (Bld) [#/Vol] 0.0 10*3/uL Normal 0.0-0.2 [facility] Comment on above: Result Comment: PERF ORMED BY: [place] [address] PATHOLOGIST BLACK OXIDE OPERATOR EYAD HOWARD M.D. Performed By: #### C BC, BMP #### [place] [address] [place] Basophils/100 WBC (Bld) 0.3 % Normal . [facility] Comment on above: Performed By: #### C BC, BMP #### [facility] [address] [place] [address] [place] Eosinophils (Bld) [#/Vol] 0.0 10*3/uL Normal 0.0-0.45 [facility] Comment on above: Performed By: #### C BC, BMP #### [facility] [address] [place] [address] [place] Eosinophils/100 WBC (Bld) 0.0 % Normal . [facility] Comment on above: Performed By: #### C BC, BMP #### [facility] [address] Erythrocyte distribution width (RBC) [Ratio] 14.2 % Normal 12.0-14.8 [facility] Comment on above: Performed By: #### C BC, BMP #### [facility] [address] Hematocrit (Bld) [Volume fraction] 32.9 % Low 38.8-50.0 [facility] Comment on above: Performed By: #### C BC, BMP #### [facility] [address] [place] [address] [place] Hemoglobin (Bld) [Mass/Vol] 11.2 g/dL Low 13.0-17.0 [facility] Comment on above: Performed By: #### C BC, BMP #### [facility] [address] [place] [address] [place] Lymphocytes (Bld) [#/Vol] 0.6 10*3/uL Low 1.00-4.8 [facility] Comment on above: Performed By: #### C BC, BMP #### [facility] [address] [place] [address] [place] Lymphocytes/100 WBC (Bld) 4.7 % Normal . [facility] Comment on above: Performed By: #### C BC, BMP #### [facility] [address] MCH (RBC) [Entitic mass] 30.1 pg Normal 27.5-35.2 [facility] Comment on above: Performed By: #### C BC, BMP #### [facility] [address] [place] [address] [place] MCV (RBC) [Entitic vol] 88.7 fL Normal 83.5-101 [facility] Comment on above: Performed By: #### C BC, BMP #### [facility] [address] Mean Corpuscular HGB Conc 33.9 g/dL Normal 32.5-35.6 [facility] Comment on above: Performed By: #### C BC, BMP #### [facility] [address] [place] [address] [place] Monocytes (Bld) [#/Vol] 1.0 10*3/uL High 0.0-0.8 [facility] Comment on above: Performed By: #### C BC, BMP #### [facility] [address] [place] [address] [place] Monocytes/100 WBC (Bld) 8.3 % Normal . [facility] Comment on above: Performed By: #### C BC, BMP #### [facility] [address] [place] [address] [place] Neutrophils (Bld) [#/Vol] 10.9 10*3/uL High 1.8-7.7 [facility] Comment on above: Performed By: #### C BC, BMP #### [facility] [address] [place] [id number] [place] Neutrophils/100 WBC (Bld) 86.7 % Normal . [facility] Comment on above: Performed By: #### C BC, BMP #### [facility] [address] [place] [id number] [place] Nucleated RBC/100 WBC (Bld) [Ratio] 0.0 % Normal 0-0.5 [facility] Comment on above: Performed By: #### C BC, BMP #### [facility] [address] Platelet mean volume (Bld) [Entitic vol] 8.4 fL Normal 6.6-10.1 [facility] Comment on above: Performed By: #### C BC, BMP #### [facility] [address] Platelets (Bld) [#/Vol] 210 10*3/uL Normal 150-450 [facility] Comment on above: Performed By: #### C BC, BMP #### [facility] [address] RBC (Bld) [#/Vol] 3.71 10*6/uL Low 3.90-5.60 [facility] Comment on above: Performed By: #### C BC, BMP #### [facility] [address] [place] [id number] [facility] WBC (Bld) [#/Vol] 12.5 10*3/uL High 4.5-11.0 [facility] Comment on above: Performed By: #### C BC, BMP #### [facility] [address] ECG 12 lead ECGon 07-02-2021 [address] [facility] [place] [address] [place] [address] Electrocardiograph Report Signed Patient: Fredrick Stroud MR#: [id number] 427 : 1950 Acct:[id number] Age/Sex: 70 / M ADM Date: 07/02/21 Loc: [place] Room: Type: [facility] Attending Dr: Shahriar Dhillon II, MD [...] Signed By Moreno Rosario DO 07/02 1306 [facility] [place] 07-02-2021 L - -------- Specimen: [id number] Received: 07/02/21 Status: LORETTA Solis Num: [id number] Spec Type: Surgical Subm Dr: hSahriar Dhillon MD Tissues: A Femoral Head - Other than Fracture (L HIP) Procedures: HE Stain, Gross/Micro L3, Decal -------- Patient Age/Sex Location Account Attending Physician -------- Fredrick Stroud 70/M 4N [id number] Shahriar Dhillon MD -------- SPEC NUM: [id number] RECD: 07/02/21 STATUS: LORETTA SOLIS NUM: [id number] IMLY: 07/02/21- SUBM DR: Shahriar Dhillon MD ENTERED: 07/02/21 [facility] DR: LEBRON TYPE: Surgical DEPT: S ORDERED: [...] bone fragments and scant soft tissue. 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 ([email or web address]/YJ) -------- Specimen: [id number] Received: 07/02/21 Status: LORETTA Solis Num: [id number] Spec Type: Surgical Subm Dr: Shahriar Dhillon MD Tissues: A Femoral Head - Other than Fracture (L HIP) Procedures: HE Stain, Gross/Micro L3, Decal -------- Patient: Fredrick Stroud [id number] (Continued) -------- Specimen: [id number] Received: 07/02/21 (Continued) Signed (signature on file) Kaycee Curry MD 07/04/21 1625 -------- Specimen: [id number] Received: 07/02/21 Status: LORETTA Solis Num: [id number] Spec Type: Surgical Subm Dr: Shahriar Dhillon MD Tissues: A Femoral Head - Other than Fracture (L HIP) Procedures: HE Stain, Gross/Micro L3, Decal -------- Patient: Fredrick Stroud [id number] (Continued) -------- Specimen: [id number] Received: 07/02/21 (Continued) Microscopic Description One glass slide with H E stained material has been examined. The microscopic findings support the above pathologic diagnosis. CPT Codes 89517, 60384 -------- -------- Specimen: [id number] Received: 07/02/21 Status: LORETTA Solis Num: [id number] Spec Type: Surgical Subm Dr: Shahriar Dhillon MD Tissues: A Femoral Head - Other than Fracture (L HIP) Procedures: HE Stain, Gross/Micro L3, Decal -------- Patient: Fredrick Stroud [id number] (Continued) -------- Signed (signature on file) Kaycee Curry MD 07/04/21 1625 [facility] XR hip LT 1Von 07-02-2021 XR hip LT [address]V [facility] [place] [address] XRay Report Signed Patient: Fredrick Stroud MR#: [id number] 427 : 1950 Acct:[id number] Age/Sex: 70 / M ADM Date: 07/02/21 Loc: [place] Room: Type: [facility] Attending Dr: Shahriar Dhillon II, MD Ordering [...] STUDY.. Impression dictated by: Dandy Stevenson Jr., D.O.07/02/2021 9:26 AM Dictation Location: [place] [address] Transcribed By: [facility] 07/02/21925 Dictated By: Dandy Stevenson Jr, DO 07/02/21922 Signed By: 07/02/21925 [facility] XR low pelvis w/LT x-table h ipon 07-02-2021 XR low pelvis w/LT x-table hip [facility] [address] [address] XRay Report Signed Patient: Fredrick Stroud MR#: [id number] 427 : 1950 Acct:[id number] Age/Sex: 70 / M ADM Date: 07/02/21 Loc: [place] Room: Type: [facility] Attending Dr: Shahriar Dhillon II, MD Ordering [...] Ariana Tanner M.D.07/02/2021 12:05 PM Dictation Location: [place] [address] Transcribed By: [facility] 07/02/21 1205 Dictated By: Ariana Tanner MD 07/02/21 1204 Signed By: 07/02/21 1205 Normal [facility] SARS-CoV-2 (COVID-19) RNA FABI+probe Ql (Unsp spec) Negative Normal Negative [facility] Comment on above: Order Comment: 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 This test has not been [...] is terminated or revoked sooner. PERFORMED BY: [place] [address] PATHOLOGIST BLACK OXIDE OPERATOR EYAD HOWARD M.D. Performed By: #### C BC, CMP, HS TROP, BNP #### [address] Basic Metabolic Panelon 04-2 Calcium [Mass/Vol] 9.4 mg/dL Normal 8.2-10.2 [facility] Comment on above: Result Comment: PERF ORMED BY: [place] [address] PATHOLOGIST BLACK OXIDE OPERATOR EYAD HOWARD M.D. Performed By: #### C OVID-19 GERTRUDE, SOFIANEG #### [place] [address] [place] Chloride [Moles/Vol] 103 mmol/L Normal 95-114 [facility] Comment on above: Performed By: #### C OVID-19 GERTRUDE, SOFIANEG #### [facility] [address] [place], [place] [id number] [facility] CO2 [Moles/Vol] 26.4 mmol/L Normal 22.0-30.0 [facility] Comment on above: Performed By: #### C OVID-19 GERTRUDE, SOFIANEG #### [address] Creatinine [Mass/Vol] 0.89 mg/dL Normal 0.64-1.27 [facility] Comment on above: Performed By: #### C OVID-19 GERTRUDE, SOFIANEG #### [facility] [address] [place] [address] [place] Estimated GFR ( Jessica > 60 Normal [facility] Comment on above: Result Comment: GFR estimated reference range: According to KDOQI guidelines, <60 ml/min/1.73m2 is sufficient to diagnose a patient with chronic kidney disease. Performed By: #### C OVID-19 GERTRUDE, SOFIANEG #### [facility] [address] [place] [address] [place] Estimated GFR (Non- Am > 60 Normal [facility] Comment on above: Performed By: #### C OVID-19 GERTRUDE, SOFIANEG #### [facility] [address] Glucose [Mass/Vol] 101 mg/dL High 70-100 [facility] Comment on above: Result Comment: Donald Glucose Reference Range is dependent on time and content of last meal. Glucose of more than 200 mg/dL in a nonstressed, ambulatory subject supports the diagnosis of Diabetes Mellitus. ADA recommended reference range Performed By: #### C OVID-19 GERTRUDE, SOFIANEG #### [facility] [address] Potassium [Moles/Vol] 4.4 mmol/L Normal 3.5-5.1 [facility] Comment on above: Performed By: #### C OVID-19 GERTRUDE, SOFIANEG #### [facility] [address] [place] [address] [place] Sodium [Moles/Vol] 139 mmol/L Normal 136-146 [facility] Comment on above: Performed By: #### C OVID-19 GERTRUDE, SOFIANEG #### [facility] [address] [place] [address] [place] Urea nitrogen [Mass/Vol] 23 mg/dL Normal 9-23 [facility] Comment on above: Performed By: #### C OVID-19 GERTRUDE, SOFIANEG #### [facility] [address] [place] [address] [place] Complete Blood Count Auto Di ffon 06-18-2021 Basophils (Bld) [#/Vol] 0.0 10*3/uL Normal 0.0-0.2 [facility] Comment on above: Result Comment: PERF ORMED BY: [place] [address] PATHOLOGIST BLACK OXIDE OPERATOR EYAD HOWARD M.D. Performed By: #### C OVID-19 GERTRUDE, SOFIANEG #### [address] Basophils/100 WBC (Bld) 0.9 % Normal . [facility] Comment on above: Performed By: #### C OVID-19 GERTRUDE, SOFIANEG #### [address] Eosinophils (Bld) [#/Vol] 0.1 10*3/uL Normal 0.0-0.45 [facility] Comment on above: Performed By: #### C OVID-19 GERTRUDE, SOFIANEG #### [address] Eosinophils/100 WBC (Bld) 1.4 % Normal . [facility] Comment on above: Performed By: #### C OVID-19 GERTRUDE, SOFIANEG #### [address] Erythrocyte distribution width (RBC) [Ratio] 14.0 % Normal 12.0-14.8 [facility] Comment on above: Performed By: #### C OVID-19 GERTRUDE, SOFIANEG #### [address] Hematocrit (Bld) [Volume fraction] 41.8 % Normal 38.8-50.0 [facility] Comment on above: Performed By: #### C OVID-19 GERTRUDE, SOFIANEG #### [address] Hemoglobin (Bld) [Mass/Vol] 14.2 g/dL Normal 13.0-17.0 [facility] Comment on above: Performed By: #### C OVID-19 GERTRUDE, SOFIANEG #### [address] Lymphocytes (Bld) [#/Vol] 1.1 10*3/uL Normal 1.00-4.8 [facility] Comment on above: Performed By: #### C OVID-19 GERTRUDE, SOFIANEG #### [facility] [address] Lymphocytes/100 WBC (Bld) 22.7 % Normal . [facility] Comment on above: Performed By: #### C OVID-19 GERTRUDE, SOFIANEG #### [facility] [address] MCH (RBC) [Entitic mass] 30.4 pg Normal 27.5-35.2 [facility] Comment on above: Performed By: #### C OVID-19 GERTRUDE, SOFIANEG #### [address] MCV (RBC) [Entitic vol] 89.7 fL Normal 83.5-101 [facility] Comment on above: Performed By: #### C OVID-19 GERTRUDE, SOFIANEG #### [facility] [address] [place] [address] Mean Corpuscular HGB Conc 33.9 g/dL Normal 32.5-35.6 [facility] Comment on above: Performed By: #### C OVID-19 GERTRUDE, SOFIANEG #### [facility] [address] Monocytes (Bld) [#/Vol] 0.5 10*3/uL Normal 0.0-0.8 [facility] Comment on above: Performed By: #### C OVID-19 GERTRUDE, SOFIANEG #### [facility] [address] [place] [address] [place] Monocytes/100 WBC (Bld) 11.2 % Normal . [facility] Comment on above: Performed By: #### C OVID-19 GERTRUDE, SOFIANEG #### [facility] [address] [place] [address] [place] Neutrophils (Bld) [#/Vol] 3.1 10*3/uL Normal 1.8-7.7 [facility] Comment on above: Performed By: #### C OVID-19 GERTRUDE, SOFIANEG #### [facility] [address] [place] [address] [place] Neutrophils/100 WBC (Bld) 63.8 % Normal . [facility] Comment on above: Performed By: #### C OVID-19 GERTRUDE, SOFIANEG #### [facility] [address] [place] [address] [place] Nucleated RBC/100 WBC (Bld) [Ratio] 0.1 % Normal 0-0.5 [facility] Comment on above: Performed By: #### C OVID-19 GERTRUDE, SOFIANEG #### [address] Platelet mean volume (Bld) [Entitic vol] 8.2 fL Normal 6.6-10.1 [facility] Comment on above: Performed By: #### C OVID-19 GERTRUDE, SOFIANEG #### [address] Platelets (Bld) [#/Vol] 243 10*3/uL Normal 150-450 [facility] Comment on above: Performed By: #### C OVID-19 GERTRUDE, SOFIANEG #### [place] [address] [place] RBC (Bld) [#/Vol] 4.67 10*6/uL Normal 3.90-5.60 [facility] Comment on above: Performed By: #### C OVID-19 GERTRUDE, SOFIANEG #### [place] [address] [place] WBC (Bld) [#/Vol] 4.8 10*3/uL Normal 4.5-11.0 [facility] Comment on above: Performed By: #### C OVID-19 GERTRUDE, SOFIANEG #### [address] ECG 12 lead ECGon 06-18-[address] [facility] [place] [address] [place] [address] Electrocardiograph Report Signed Patient: Fredrick Stroud MR#: [id number] 427 : 1950 Acct:[id number] Age/Sex: 70 / M ADM Date: 06/18/21 Loc: [place] Room: Type: [facility] Attending Dr: Shahriar Dhillon II, [...] Wisam Torre MD 0 06/19/21 1006 Normal [facility] Fructosamineon 06-18-2021 Fructosamine 217 umol/L Normal 0-285 [facility] Comment on above: Result Comment: Publ ished reference interval for apparently healthy subjects between age 20 and 60 is 205 - 285 umol/L and in a poorly controlled diabetic population is 228 - 563 umol/L with a mean of 396 umol/L. Performed at: - [facility] [address] [id number] Counseling Center Manager: Benton Caro PhD, Phone: [phone] PERFORMED BY: [place] [address] PATHOLOGIST BLACK OXIDE OPERATOR EYAD HOWARD M.D. Performed By: #### C OVID-19 SHAYAN LOREDOIANEG #### [address] PST Type and Screenon 2021 ABO and Rh group Nom (Bld) Blood group O Rh(D) positive Normal [facility] Comment on above: Order Comment: Date of Surgery: [id number] Result Comment: PERF ORMED BY: [place] [address] PATHOLOGIST BLACK OXIDE OPERATOR EYAD HOWARD M.D. Urinalysison 06-18-2021 Appearance (U) Clear Normal Clear [facility] Comment on above: Order Comment: Name Collection Type:: Clean-Voided Midstream Performed By: #### C BC, CMP, HS TROP, BNP #### [facility] [address] [place] [address] [place] Bilirubin,Urine Negative Normal Negative [facility] Comment on above: Order Comment: Name Collection Type:: Clean-Voided Midstream Performed By: #### C BC, CMP, HS TROP, BNP #### [facility] [address] [place] [address] [place] Color (U) Yellow Normal Yellow [facility] Comment on above: Order Comment: Name Collection Type:: Clean-Voided Midstream Performed By: #### C BC, CMP, HS TROP, BNP #### [facility] [address] [place] [address] [place] Glucose Ql (U) Normal Normal Normal [facility] Comment on above: Order Comment: Name Collection Type:: Clean-Voided Midstream Performed By: #### C BC, CMP, HS TROP, BNP #### [facility] [address] [place] [address] [place] Ketones Ql (U) Negative Normal Negative [facility] Comment on above: Order Comment: Name Collection Type:: Clean-Voided Midstream Performed By: #### C BC, CMP, HS TROP, BNP #### [facility] [address] [place] [address] [place] Leukocyte esterase Test strip Ql (U) Negative Normal Negative [facility] Comment on above: Order Comment: Name Collection Type:: Clean-Voided Midstream Performed By: #### C BC, CMP, HS TROP, BNP #### [facility] [address] [place] [address] [place] Nitrite,Urine Negative Normal Negative [facility] Comment on above: Order Comment: Name Collection Type:: Clean-Voided Midstream Performed By: #### C BC, CMP, HS TROP, BNP #### [address] Occult Blood,Urine Negative Normal Negative [facility] Comment on above: Order Comment: Name Collection Type:: Clean-Voided Midstream Result Comment: PERF ORMED BY: [place] [address] PATHOLOGIST BLACK OXIDE OPERATOR EYAD HOWARD M.D. Performed By: #### C BC, CMP, HS TROP, BNP #### [address] pH (U) 7.5 [pH] Normal 5.0-9.0 [facility] Comment on above: Order Comment: Name Collection Type:: Clean-Voided Midstream Performed By: #### C BC, CMP, HS TROP, BNP #### [address] Protein,Urine Negative Normal Negative [facility] Comment on above: Order Comment: Name Collection Type:: Clean-Voided Midstream Performed By: #### C BC, CMP, HS TROP, BNP #### [address] Specificy [place],Urine 1.023 Normal 1.001-1.030 [facility] Comment on above: Order Comment: Name Collection Type:: Clean-Voided Midstream Performed By: #### C BC, CMP, HS TROP, BNP #### [address] Urobilinogen,Urine Normal Normal Normal [facility] Comment on above: Order Comment: Name Collection Type:: Clean-Voided Midstream Performed By: #### C BC, CMP, HS TROP, BNP #### [address] Urinalysis - AUTOMATEDon Appearance (U) CLEAR [facility] Other Bilirubin Ql (U) Negative [facility] [employer] Other Color (U) YELLOW [employer] Other Glucose Ql (U) Negative [facility] Other Hemoglobin Ql (U) Negative [employer] Other Ketones Ql (U) Negative [facility] Other Leukocyte esterase Test strip Ql (U) Negative [employer] Other Nitrite Ql (U) Negative [facility] Other pH (U) 6.0 [pH] [employer] Other Protein Ql (U) Negative [facility] Other Specific gravity (U) [Rel density] 1.010 [employer] Other Urobilinogen (U) [Mass/Vol] 0.2 mg/dL [facility] Other Urinalysis - AUTOMATED [employer] Other Vital Signs Date Time Vital Sign Value Performing Clinician Facility 02-25-2023 13:00-0500 Body temperature 98.2 [degF] Vivian Espinoza MD Work Phone: [email or web address] 02-25-2023 13:00-0500 Diastolic blood pressure 81 mm[Hg] Vivian Espinoza MD Work Phone: [email or web address] 02-25-2023 13:00-0500 Heart rate 79 /min Vivian Espinoza MD Work Phone: [email or web address] 02-25-2023 13:00-0500 Respiratory rate 18 /min Vivian Espinoza MD Work Phone: [email or web address] 02-25-2023 13:00-0500 SaO2% (BldA) [Mass fraction] 97 % Vivian Espinoza MD Work Phone: [email or web address] 02-25-2023 13:00-0500 Systolic blood pressure 125 mm[Hg] Vivian Espinoza MD Work Phone: [email or web address] 02-16-2023 22:54-0500 SaO2% (BldA) [Mass fraction] 96.1 % Vivian Espinoza MD Work Phone: [email or web address] 02-16-2023 03:00-0500 Body height 167.6 cm iVvian Espinoza MD Work Phone: [email or web address] 02-16-2023 03:00-0500 Body mass index (BMI) [Ratio] 42.52 kg/m2 Vivian Espinoza MD Work Phone: [email or web address] 02-16-2023 03:00-0500 Body weight 119.5 kg Vivian Espinoza MD Work Phone: [email or web address] 02-15-2023 20:06-0500 Body temperature 97.52 [degF] Justice Pretty [facility] 02-15-2023 20:06-0500 Diastolic blood pressure 63 mm[Hg] Justice Cuetoe [facility] 02-15-2023 20:06-0500 Heart rate 70 /min Jsutice Cuetoe [facility] 02-15-2023 20:06-0500 Mean blood pressure 76 mm[Hg] Justice Pretty [facility] 02-15-2023 20:06-0500 Respiratory rate 18 /min Justice Pretty [facility] 02-15-2023 20:06-0500 SaO2% (BldA) [Mass fraction] 94 % Justice Cuetoe [facility] 02-15-2023 20:06-0500 Systolic blood pressure 101 mm[Hg] Justice Cuetoe [facility] 02-15-2023 20:00-0500 Diastolic blood pressure 74 mm[Hg] Justice Cuetoe [facility] 02-15-2023 20:00-0500 Heart rate 63 /min Justice Sukhwinder [facility] 02-15-2023 20:00-0500 Hourly Rounding Justice Sukhwinder [facility] 02-15-2023 20:00-0500 Promise to Return Justice Sukhwinder [facility] [place] 02-15-2023 20:00-0500 SaO2% (BldA) [Mass fraction] 100 % Justice Sukhwinder [facility] [place] 02-15-2023 20:00-0500 Systolic blood pressure 112 mm[Hg] Justice Sukhwinder [facility] [place] 02-15-2023 19:57-0500 Diastolic blood pressure 78 mm[Hg] Justice Sukhwinder [facility] [place] 02-15-2023 19:57-0500 Heart rate 101 /min Justice Sukhwinder [facility] [place] 02-15-2023 19:57-0500 Mean blood pressure 90 mm[Hg] Justice Sukhwinder [facility] [place] 02-15-2023 19:57-0500 Respiratory rate 14 /min Justice Sukhwinder [facility] [place] 02-15-2023 19:57-0500 SaO2% (BldA) [Mass fraction] 98 % Justice Sukhwinder [facility] [place] 02-15-2023 19:57-0500 Systolic blood pressure 113 mm[Hg] Justice Sukhwinder [facility] [place] 02-15-2023 19:47-0500 Heart rate 85 /min Justice Sukhwinder [facility] [place] 02-15-2023 19:47-0500 Mean blood pressure 49 mm[Hg] Justice Sukhwinder [facility] [place] 02-15-2023 19:47-0500 Respiratory rate 14 /min Justice Pretty [facility] [place] 02-15-2023 19:34-0500 Blood Pressure Location Justice Pretty [facility] [place] 02-15-2023 19:34-0500 Body temperature 97.52 [degF] Justice Cuetoe [facility] [place] 02-15-2023 19:34-0500 Heart rate 68 /min Justice Cuetoe [facility] [place] 02-15-2023 19:19-0500 Heart rate 67 /min Justice Pretty [facility] [place] 02-15-2023 19:00-0500 Hourly Rounding Justice Pretty [facility] [place] 02-15-2023 19:00-0500 Promise to Return Justice Pretty [facility] [place] 02-15-2023 18:45-0500 Body temperature 97.52 [degF] Justice Pretty [facility] [place] 02-15-2023 18:17-0500 Body temperature 97.52 [degF] Justice Pretty [facility] [place] 02-15-2023 18:00-0500 Hourly Rounding Justice Pretty [facility] [place] 02-15-2023 18:00-0500 Promise to Return Justice Pretty [facility] [place] 02-15-2023 16:28-0500 Body temperature 97.88 [degF] Justice Cuetoe [facility] [place] 08-30-2022 08:53-0400 Body height 167.64 cm Karina Melgar Work Phone: [facility] 250 DO Work Phone: 08-30-2022 08:53-0400 Body mass index (BMI) [Ratio] 38.74 kg/m2 Karina Lisa Ramón Work Phone: [facility] 250 DO Work Phone: 08-30-2022 08:53-0400 Body surface area Derived from formula 2.16 m2 Karina Lisa Ramón Work Phone: [facility] 250 DO Work Phone: 08-30-2022 08:53-0400 Body weight 108.86 kg Karina Lisa Ramón Work Phone: [facility] 250 DO Work Phone: 08-30-2022 08:53-0400 Diastolic blood pressure 62 mm[Hg] Karina Lisa Ramón Work Phone: [facility] 250 DO Work Phone: 08-30-2022 08:53-0400 Heart rate 55 /min Karina Lisa Ramón Work Phone: [facility] 250 DO Work Phone: 08-30-2022 08:53-0400 Systolic blood pressure 128 mm[Hg] Karina Lisa Ramón Work Phone: [facility] [address] DO Work Phone: 08-13-2022 13:21-0400 Body height 167.64 cm Karina Lisa Ramón Work Phone: [facility] 250 DO Work Phone: 08-13-2022 13:21-0400 Body mass index (BMI) [Ratio] 39.87 kg/m2 Karina Guardadoon Work Phone: [facility] 250 DO Work Phone: 08-13-2022 13:21-0400 Body surface area Derived from formula 2.19 m2 Karina Guardadoon Work Phone: [facility] 250 DO Work Phone: 08-13-2022 13:21-0400 Body weight 112.04 kg Karina Lisa Ramón Work Phone: [facility] 250 DO Work Phone: 08-13-2022 13:21-0400 Diastolic blood pressure 70 mm[Hg] Karina Lisa Ramón Work Phone: [facility] [address] DO Work Phone: 08-13-2022 13:21-0400 Heart rate 70 /min Karina Lisa Ramón Work Phone: [facility] 250 DO Work Phone: 08-13-2022 13:21-0400 Systolic blood pressure 136 mm[Hg] Karina Lisa Ramón Work Phone: [facility] DO Work Phone: 07-05-2022 09:08-0400 Body height 167.64 cm Karina Lisa Ramón Work Phone: [facility] 600 DO Work Phone: 07-05-2022 09:08-0400 Body mass index (BMI) [Ratio] 39.54 kg/m2 Karina Lisa Ramón Work Phone: [facility] 600 DO Work Phone: 07-05-2022 09:08-0400 Body surface area Derived from formula 2.18 m2 Karina Lisa Ramón Work Phone: [facility] 600 DO Work Phone: 07-05-2022 09:08-0400 Body weight 111.13 kg Karina Guardadoon Work Phone: [facility] 600 DO Work Phone: 05-12-2023 09:08-0400 Diastolic blood pressure 70 mm[Hg] Karina Lisa Ramón Work Phone: [facility] [address] DO Work Phone: 07-05-2022 09:08-0400 Heart rate 72 /min Karina Lisa Ramón Work Phone: [facility] 600 DO Work Phone: 07-05-2022 09:08-0400 Systolic blood pressure 138 mm[Hg] Karina Lisa Ramón Work Phone: [facility] [address] DO Work Phone: 06-20-2022 16:24-0400 Body height 167.64 cm Karina Lisa Ramón Work Phone: [facility] 250 DO Work Phone: 06-20-2022 16:24-0400 Body mass index (BMI) [Ratio] 40.03 kg/m2 Karina Lisa Ramón Work Phone: [facility] 250 DO Work Phone: 06-20-2022 16:24-0400 Body surface area Derived from formula 2.19 m2 Karina Lisa Ramón Work Phone: [facility] 250 DO Work Phone: 06-20-2022 16:24-0400 Body weight 112.49 kg Karina Lisa Ramón Work Phone: [facility] 250 DO Work Phone: 06-20-2022 16:24-0400 Diastolic blood pressure 102 mm[Hg] Karina Guardadoon Work Phone: [facility] [address] DO Work Phone: 06-20-2022 16:24-0400 Heart rate 76 /min Karina Guardadoon Work Phone: [facility] DO Work Phone: 06-20-2022 16:24-0400 Systolic blood pressure 162 mm[Hg] Karina Lisa Ramón Work Phone: [facility] [address] DO Work Phone: 05-10-2022 14:46-0400 Body height 167.64 cm Karina Lisa Ramón Work Phone: [facility] [place] Work Phone: 05-10-2022 14:46-0400 Body mass index (BMI) [Ratio] 40.19 kg/m2 Karina Lisa Ramón Work Phone: [facility] [place] Work Phone: 05-10-2022 14:46-0400 Body surface area Derived from formula 2.2 m2 Karina Lisa Ramón Work Phone: [facility] [place] Work Phone: 05-10-2022 14:46-0400 Body weight 112.95 kg Karina Lisa Ramón Work Phone: [facility] [place] Work Phone: 05-10-2022 14:46-0400 Diastolic blood pressure 80 mm[Hg] Karina Lisa Ramón Work Phone: [facility] [place] Work Phone: 05-10-2022 14:46-0400 Heart rate 61 /min Karina Lisa Ramón Work Phone: [facility] [place] Work Phone: 05-10-2022 14:46-0400 Systolic blood pressure 130 mm[Hg] Karina Guardadoon Work Phone: [facility] [place] Work Phone: 05-02-2022 13:26-0500 Body height 167.64 cm Karina Guardadoon Work Phone: [facility] 600 DO Work Phone: 05-02-2022 13:26-0500 Body mass index (BMI) [Ratio] 40.19 kg/m2 Karina Lisa Ramón Work Phone: [facility] 600 DO Work Phone: 05-02-2022 13:26-0500 Body surface area Derived from formula 2.2 m2 Karina Lisa Ramón Work Phone: [facility] 600 DO Work Phone: 05-02-2022 13:26-0500 Body weight 112.95 kg Karina iLsa Ramón Work Phone: [facility] 600 DO Work Phone: 05-02-2022 13:26-0500 Diastolic blood pressure 64 mm[Hg] Karina Guardadoon Work Phone: [facility] 600 DO Work Phone: 05-02-2022 13:26-0500 Heart rate 62 /min Karina Guardadoon Work Phone: [facility] 600 DO Work Phone: 05-02-2022 13:26-0500 Systolic blood pressure 116 mm[Hg] Karina Guardadoon Work Phone: [facility] 600 DO Work Phone: 04-29-2022 11:48-0500 Body height 167.64 cm Karina Guardadoon Work Phone: [facility] 600 DO Work Phone: 04-29-2022 11:48-0500 Body mass index (BMI) [Ratio] 40.09 kg/m2 Karina Guardadoon Work Phone: [facility] 600 DO Work Phone: 04-29-2022 11:48-0500 Body surface area Derived from formula 2.19 m2 Karina Guardadoon Work Phone: [facility] [employer] 600 DO Work Phone: 04-29-2022 11:48-0500 Body weight 112.67 kg Karina Lisa Ramón Work Phone: [facility] [employer] 600 DO Work Phone: 04-29-2022 11:48-0500 Diastolic blood pressure 80 mm[Hg] Karina Lisa Ramón Work Phone: [facility] [employer] 600 DO Work Phone: 04-29-2022 11:48-0500 Heart rate 60 /min Karina Guardadoon Work Phone: [facility] [employer] 600 DO Work Phone: 04-29-2022 11:48-0500 Systolic blood pressure 122 mm[Hg] Karina Guardadoon Work Phone: [facility] [employer] 600 DO Work Phone: 04-18-2022 14:45-0500 Body height 167.64 cm Karina Melgar Other [facility] Other 04-18-2022 14:45-0500 Body mass index (BMI) [Ratio] 39.54 kg/m2 Karina Melgar Other [facility] Other 04-18-2022 14:45-0500 Body weight 111.13 kg Karina Melgar Other [facility] Other 04-18-2022 14:45-0500 Diastolic blood pressure 76 mm[Hg] Karina Melgar Other [employer] Other 04-18-2022 14:45-0500 Systolic blood pressure 122 mm[Hg] Karina Melgar Other [facility] Other 03-11-2022 18:35-0500 Diastolic blood pressure 79 mm[Hg] MD Karina Melgar Work Phone: [facility] 03-11-2022 18:35-0500 Heart rate 74 /min MD Karina Melgar Work Phone: [facility] 03-11-2022 18:35-0500 Respiratory rate 20 /min MD Karina Melgar Work Phone: [facility] 03-11-2022 18:35-0500 SaO2% (BldA) [Mass fraction] 97 % MD Karina Melgar Work Phone: [facility] 03-11-2022 18:35-0500 Systolic blood pressure 137 mm[Hg] MD Karina Melgar Work Phone: [facility] 03-11-2022 13:03-0500 Body height 167.64 cm MD Karina Melgar Work Phone: [facility] 03-11-2022 13:03-0500 Body temperature 98.7 [degF] MD Karina Melgar Work Phone: [facility] 03-11-2022 13:03-0500 Body weight 116 kg MD Karina Melgar Work Phone: [facility] 06-14-2021 11:15-0400 Body height 167.64 cm Shahriar Dhillon II Other [facility] [employer] Other 06-14-2021 11:15-0400 Body mass index (BMI) [Ratio] 40.02 kg/m2 Shahriar Arthur II Other [facility] Other 06-14-2021 11:15-0400 Body weight 112.49 kg Shahriar Arthur II Other [facility] Other 05-24-2021 15:30-0400 Body height 167.64 cm Karina Melgar Other [employer] Other 05-24-2021 15:30-0400 Body mass index (BMI) [Ratio] 40.19 kg/m2 Karina Melgar Other [facility] Other 05-24-2021 15:30-0400 Body weight 112.95 kg Karina Melgar Other [facility] Other 05-24-2021 15:30-0400 Diastolic blood pressure 80 mm[Hg] Karina Melgar Other [facility] Other 05-24-2021 15:30-0400 Systolic blood pressure 132 mm[Hg] Karina Melgar Other [facility] Other 03-21-2021 15:00-0500 Body height 167.64 cm Shahriar [employer] II Other [facility] Other 03-21-2021 15:00-0500 Body mass index (BMI) [Ratio] 40.51 kg/m2 Shahriar Alejo II Other [facility] Other 03-21-2021 15:00-0500 Body weight 113.85 kg Shahriar Alejo II Other [facility] Other 02-13-2021 15:45-0500 Body height 167.64 cm Karina Melgar Other [employer] Other 02-13-2021 15:45-0500 Diastolic blood pressure 80 mm[Hg] Karina Melgar Other [employer] Other 02-13-2021 15:45-0500 Systolic blood pressure 144 mm[Hg] Karina Melgar Other [employer] Other 01-29-2021 14:45-0500 Body height 167.64 cm Karina Melgar Other [employer] Other 01-29-2021 14:45-0500 Body mass index (BMI) [Ratio] 40.64 kg/m2 Karina Melgar Other [employer] Other 01-29-2021 14:45-0500 Body weight 114.22 kg Karina Melgar Other [employer] Other 01-29-2021 14:45-0500 Diastolic blood pressure 92 mm[Hg] Karina Melgar Other [employer] Other 01-29-2021 14:45-0500 SaO2% (BldA) [Mass fraction] 98 % Karina Melgar Other [employer] Other 01-29-2021 14:45-0500 Systolic blood pressure 148 mm[Hg] Karina Melgar Other [employer] Other Encounters Encounter Date Encounter Type Care Provider Facility Start: 04-11-2023 End: 04-12-2023 ambulatory MICHELINEDIANA GOLDBERG Facility:[facility] Start: 04-08-2023 Clinisync Result Encounter Lola Seth [...] Start: 04-02-2023 Clinisync Result Encounter Lia Dodge GARMENT LINER Work Phone: [facility] External [facility] Unsolicited Start: 04-02-2023 Clinisync Result Encounter Lia Dodge GARMENT LINER Work Phone: [facility] External Department Unsolicited Start: 03-10-2023 End: 03-10-2023 ambulatory UNKNOWN PROVIDER Facility:[facility] Start: 03-10-2023 End: 03-10-2023 Patient encounter procedure Radha Goldberg MD Work Phone: [facility] Comment on above: Aftercare following surgery (Primary Dx); Closed fracture of left femur, unspecified fracture morphology, unspecified portion of femur, initial encounter (HCC) Start: 02-21-2023 Evaluation and management of inpatient JUSTICE PRETTY Facility:[facility] Start: 02-18-2023 Evaluation and management of inpatient JUSTICE PRETTY Facility:[facility] Start: 02-18-2023 Patient encounter status Ip 3 [facility] Work Phone: Start: 02-18-2023 End: 02-19-2023 ambulatory ERROL TURCIOS Facility:[facility] Start: 02-18-2023 End: 02-18-2023 Subsequent hospital visit by physician Ip Senior Fire Protection Engineer 3 [facility] Non Invasive Cardiology Start: 02-17-2023 Evaluation and management of inpatient [facility] Start: 02-16-2023 End: 02-25-2023 Evaluation and management of inpatient SHIVA LADRICHA Facility:[facility] Start: 02-16-2023 Emergency department patient visit JUSTICE PRETTY [facility] Start: 02-15-2023 Emergency department patient visit UNKNOWN PROVIDER Facility:[facility] Start: 02-15-2023 End: 02-15-2023 ambulatory UNKNOWN PROVIDER Facility:[facility] Start: 02-15-2023 End: 02-25-2023 Evaluation and management of inpatient Vivian Espinoza MD Work Phone: [address] Start: 02-15-2023 End: 02-25-2023 Patient encounter status [facility]za [facility] Work Phone: Start: 02-15-2023 End: 02-16-2023 Emergency department patient visit Justice Pertty Facility:[facility] Start: 02-15-2023 End: 02-15-2023 Emergency department patient visit Justice Pretty [facility] [place] Start: 08-30-2022 Office outpatient vi sit 25 minutes Karina Melgar Work Phone: [facility] 250 DO Work Phone: Start: 08-13-2022 ambulatory Christopher Porter Facilit y: Start: 08-02-2022 ambulatory Christopher Porter Facilit y: Start: 08-02-2022 End: 08-02-2022 ambulatory Christopher Porter Facility:[facility] Start: 07-05-2022 ambulatory Christopher Porter Facilit y: Start: 07-05-2022 Office outpatient vi sit 25 minutes Karina Melgar Work Phone: [facility] 600 DO Work Phone: Start: 06-20-2022 Patient encounter procedure Karina Melgar Work Phone: [facility] 250 DO Work Phone: Start: 06-20-2022 ambulatory Christopher Porter Facilit y: Start: 06-12-2022 Chart Update Karina floyd Work Phone: [facility] 250 DO Work Phone: Start: 06-11-2022 End: 06-11-2022 ambulatory Christopher Porter Facility:[facility] Start: 06-11-[address] Karina Melgar Facility:[id number] Start: 05-28-2022 Patient encounter procedure Karina Melgar Work Phone: [facility] 250 DO Work Phone: Start: 05-10-2022 Patient encounter procedure Karina Melgar Work Phone: [facility] [place] Work Phone: Start: 05-10-2022 ambulatory Christopher Porter Facilit y: Start: 05-03-2022 AUDIT Karina Blackwell everett Work Phone: [facility] 250 DO Work Phone: Start: 05-02-2022 Patient encounter procedure Karina Melgar Work Phone: [facility] 600 DO Work Phone: Start: 05-02-2022 ambulatory Christopher Sheikh y: Start: 04-29-2022 Office outpatient vi sit 25 minutes Karina Melgar Work Phone: [facility] 600 DO Work Phone: Start: 04-29-2022 ambulatory Christopher Porter Facilit y: Start: 04-18-2022 End: 04-18-2022 ambulatory Karina Melgar Other [facility] [employer] Other Start: 04-18-2022 Office outpatient vi sit 15 minutes Karina Melgar [facility] Start: 03-29-2022 End: 03-04-2023 ambulatory ACNP Mae Rodrigez Facility:[facility] Start: 03-29-2022 End: 03-03-2023 Recurring Mae Rodrigez [facility] Start: 03-27-2022 End: 03-27-2022 ambulatory Karina Melgar Facility:[facility] Start: 03-27-2022 End: 03-27-2022 Patient encounter procedure MD Karina Melgar Work Phone: [facility] Work Phone: Start: 03-27-2022 End: 03-27-2022 ambulatory MD Karina Melgar Work Phone: [facility] Work Phone: Start: 03-27-2022 Telephone encounter Sejal Nikolay [facility] Start: 03-25-2022 End: 03-25-2022 ambulatory Sejalra Link Other [facility] Other Start: 03-25-2022 Telephone encounter Sejal Nikolay [facility] Start: 03-21-2022 ambulatory Christopher Sheikh y: Start: 03-14-2022 End: 03-14-2022 ambulatory Sejalra Link Other [facility] Other Start: 03-14-2022 Telephone encounter Sejalra Link [facility] Start: 03-12-2022 End: 03-12-2022 ambulatory Karina Melgar Other [employer] Other Start: 03-12-2022 Telephone encounter Karina cabrera [facility] Start: 03-11-2022 End: 03-11-2022 Emergency department patient visit Yo Blood Facility:[facility] Start: 03-11-2022 End: 03-11-2022 Emergency department patient visit MD Karina Melgar Work Phone: [facility] Work Phone: Start: 09-26-2021 End: 09-26-2021 ambulatory Shahriar Dhillon II Facility:[facility] Start: 08-28-2021 End: 08-28-2021 ambulatory Shahriar Dhillon II Other [facility] Other Start: 08-28-2021 Telephone encounter Shahriar Dhillon II [facility] Start: 08-15-2021 (Post-Op) Post-Op Shahriar Crumple II [facility] Start: 08-15-2021 End: 08-15-2021 ambulatory Shahriar M Arthur II [facility] Other Start: 07-18-2021 (Post-Op) Post-Op Shahriar Alejo II [facility] Start: 07-18-2021 End: 07-18-2021 ambulatory Shahriar Alejo II Other [employer] Other Start: 07-02-2021 End: 07-03-2021 ambulatory Kate Lilachler Facility:[facility] Start: 06-28-2021 End: 06-28-2021 ambulatory Shahriar M Arthur II Facility:[facility] Start: 06-22-2021 (Prolonged) Prolonge d Services Shahriar Franciscoisle II [facility] Start: 06-22-2021 End: 06-22-2021 ambulatory Shahriar Alejo II Other [facility] Other Start: 06-18-2021 End: 06-18-2021 ambulatory Shahriar M Arthur II Facility:[facility] Start: 06-14-2021 End: 06-14-2021 ambulatory Shahriar Arthur II Other [employer] Other Start: 06-14-2021 Encounter for other preprocedural examination Shahriar Crumple II [facility] Start: 06-14-2021 Patient encounter procedure Shahriar Alejo II [facility] Start: 05-24-2021 End: 05-24-2021 ambulatory Karina Melgar Other [employer] Other Start: 05-24-2021 Encounter for other preprocedural examination Karina Melgar [facility] Start: 05-24-2021 Office outpatient vi sit 15 minutes Karina Melgar [facility] Start: 03-22-2021 End: 03-22-2021 ambulatory Lynn Gurrola Other [facility] Other Start: 01-27-2022 Encounter for other preprocedural examination Shahriar Dhillon II [facility] Start: 03-22-2021 Telephone encounter Shahriar Dhillon II [facility] Start: 03-21-2021 End: 03-21-2021 ambulatory Shahriar Dhillon II Other [employer] Other Start: 03-21-2021 Office outpatient ne w 45 minutes Shahriar Dhillon II [facility] Start: 02-13-2021 End: 02-13-2021 ambulatory Karina Melgar Other [employer] Other Start: 02-13-2021 Office outpatient vi sit 15 minutes Karina Melgar [facility] Start: 01-29-2021 End: 01-29-2021 ambulatory Karina Melgar Other [employer] Other Start: 01-29-2021 Office outpatient vi sit 15 minutes Karina Melgar [facility] Start: 04-01-2020 End: 04-01-2020 Orders Only Alina Bradybello Work Phone: [facility] Procedures Date Procedure Procedure Detail Performing Clinician Start: 04-08-2023 [facility] UA (CLEAN/CATCH) COMP FIELD CASE MANAGER/MICRO IF IND. Lola Seth MD Work Phone: [...] Phone: Start: 02-21-2023 Glucose blood reagent strip Faith Walsh MD Work Phone: Start: 02-21-2023 Assay of [...] Start: 02-18-2023 End: 02-18-2023 REDUCTION, OPEN, FEMUR Radha cabrera MD Work Phone: Start: 02-18-2023 Prothrombin time Miranda Hernandez MD Work Phone: Start: 02-18-2023 RED BLOOD CELL COMPONENT Tanya Jimenes MD Work Phone: Start: 02-18-2023 RED BLOOD CELL UNIT STATUS Tanay Jimenes MD Work Phone: Start: 02-18-2023 Assay of magnesium Alin Sam MD Work Phone: Start: 02-18-2023 Drug screen quantita tive vancomycin Isacc Alicia MD Work Phone: Start: 02-17-2023 Glucose blood reagent strip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
[2023-04-18 08:29] LABS: INR 2.43; Prothrombin Time 24.5 sec (9.0-11.6)
== END 2023-04-18 01:29 | disposition home or self-care (01) ==
LOC: LAB 01:28
PROVIDERS: PCP Family Medicine; Visit Provider Family Medicine
DX: I48.0 Paroxysmal atrial fibrillation (principal)
CPT/HCPCS: 36415; 85610